=== PATIENT | male | born 1960 | race Caucasian/White ===

== ENCOUNTER 2017-10-31 16:08 | Emergency (ER) | payer MEDICAID, SELFPAY ==
[2017-10-31 16:09] VITALS: BP 164/71; PULSE 62; RESP 23; TEMP 36.6; O2SAT 98; BMI 56.2
[2017-10-31] MEDS: 0.9% Normal Saline 1,000 ML 125 ML IV (16:39)
[2017-10-31] MEDS: Acetaminophen 500 MG Tablet 1000 MG PO (16:42)
[2017-10-31 16:48] LABS: Absolute Lymphocyte Count 2.68 X10^3/ul (0.83-4.51); Absolute Neutrophil Count 7.4 X10^3/uL (2.0-7.7); Basophil# 0.04 X10^3/uL; Basophil% 0.4 % (0-1); Eosinophil# 0.27 X10^3/uL; Eosinophils% 2.4 % (0-5); Hematocrit 41.7 % (40-54); Hemoglobin 14.4 g/dl (13.0-16.5); Lymphocyte # 2.68 X10^3/ul (4.0); Lymphocyte % 24.1 % (19-41); Mean Corp Hgb Conc 34.5 g/gl (32-36); Mean Corpuscular Hgb 30.1 pg (27.0-32.0); Mean Corpuscular Volume 87.1 fL (80-94); Mean Platelet Vol. 10.1 fl (6.2-12.0); Monocyte# 0.68 X10^3/uL; Monocyte% 6.1 % (0-10); Neutrophil # 7.42 X10^3/uL (2.7-7.7); Neutrophil % 66.8 % (47-70); Platelet Count 203 K/mm3 (150-450); RBC Distribution Width CV 13.7 % (11.6-14.6); RBC Distribution Width SD 42.9 fl (35.1-43.9); Red Blood Count 4.79 M/mm3 (4.6-6.2); White Blood Count 11.1 K/mm3 (4.4-11.0)
[2017-10-31 16:51] LABS: POSITIVE COUNT NO; POSITIVE DIFFERENTIAL NO; POSITIVE MORPHOLOGY NO
[2017-10-31 17:13] LABS: AST(SGOT) 15 U/L (15-37); Alanine Aminotransfer ALT/SGPT 26 U/L (16-61); Albumin, Serum 3.6 g/dL (3.2-5.0); Alkaline Phosphatase 92 U/L (45-117); Anion Gap 6 (5-15); BUN 20 mg/dL (7-18); BUN/Creat Ratio 21.2 RATIO (10-20); Bilirubin, Direct 0.15 mg/dL (0.00-0.30); Calcium,Total 9.3 mg/dL (8.5-10.1); Chloride 104 mmol/L (98-107); Creatinine, Serum 0.94 mg/dL (0.70-1.30); EST Glomerular Filtration Rate 88 mL/min (>60); Est Glom Filt Rate - Afr Amer 106 mL/min (>60); Estimated Creatinine Clearance 82.04 ml/min; Globulin 3.9 g/dL (2.2-4.2); Glucose 102 mg/dL (74-106); Lipase 87 U/L (73-393); Potassium 3.7 mmol/L (3.5-5.1); Protein, Total 7.5 g/dL (6.4-8.2); Sodium Level 140 mmol/L (136-145); Thyroid Stim Hormone (TSH) 1.73 uIU/mL (0.358-3.74)
--- NOTE | 2017-10-31 17:19 | ED.VISSUMM ---
- ER Visit Summary Date of Service: 10/31/17 Chief Complaint: Constipation History of Present Illness: The patient is a 56 M who goes to the [facility]. Reports he has had constipation for the past 3 weeks. Typically he has a bowel movement twice a day. States that his last bowel movement was 6 days ago. Patient reports that this began when he started levothyroxine. He denies taking any pain medications. Patient reports that he has been on Colace for approximately 15 days and is still taking this. States that 7 days ago he took magnesium citrate in these next day had a small amount of diarrhea without blood. He reports that he begin MiraLAX 5 days ago and took that for 3 days only. Finally he began taking Metamucil yesterday. He reports he has had no relief. Patient complains of a sharp, aching abdominal pain at 7 out of 10 severity. Is worsened by laying down. Is relieved by remaining still. He has had nausea without vomiting. Physical Examination: Vitals: Stable. Afebrile. General: Well-nourished and well-developed. Head: Normocephalic atraumatic. Neck: Supple, no lymphadenopathy. No JVD. Nontender. Cardiovascular: Regular rate and rhythm. No murmurs. Respiratory: No respiratory distress. Clear to auscultation bilaterally. Abdominal: Soft, mild diffuse tenderness palpation is worst in the epigastric region, nondistended, normal bowel sounds. No guarding, rebound, or peritoneal signs. Rectal: Soft brown stool in the vault. No fecal impaction. Back: Nontender. Extremities: Nontender, 2+ pitting edema of his lower extremities bilaterally. Skin: Normal color, no rash. Neurologic: Alert and oriented ?3. Cranial nerves II through XII are intact. Normal strength and sensation. Psych: Normal affect. Test Results: CBC is more for white count 11.1. Chem-7 more for BUN of 20. LFTs and lipase are normal. TSH is normal. Abdominal series shows nonspecific bowel gas pattern with increased stool. Emergency Department Course and Treatment: Had a prolonged discussion with patient about use of opiate-based medications for pain with constipation and he opted to not have these. He is given Tylenol p.o. He had a fleets enema with moderate results. Treatment Plan: I had a prolonged discussion the patient about treatment of constipation and symptomatic care. He will be discharged magnesium citrate. Instructed follow-up his primary care physician 1 to days not improving. Return to the emergency department for any worsening symptoms. Disposition: To home in improved and stable condition. Impression: 1. Constipation. This note was generated with [employer] dictation software. It may contain incorrect words, spelling, and punctuation that were not noted in review of the chart prior to signing ED Disposition - Plan for ED Patient: Chief Complaint: Constipation Instructions: ED Constipation Prescriptions: Magnesium Citrate [Citrate Of Magnesia] 300 ml PO X1 #1 bottle Referrals: Leanna Last, STOGY ROLLER-C [Primary Care Provider] - 1-2 Days if not improving
--- NOTE | 2017-10-31 17:26 | ED.DCSUM_ITS ---
- ER Visit Summary Date of Service: 10/31/17 Chief Complaint: Constipation History of Present Illness: The patient is a 56 M who goes to the [facility]. Reports he has had constipation for the past 3 weeks. Typically he has a bowel movement twice a day. States that his last bowel movement was 6 days ago. Patient reports that this began when he started levothyroxine. He denies taking any pain medications. Patient reports that he has been on Colace for approximately 15 days and is still taking this. States that 7 days ago he took magnesium citrate in these next day had a small amount of diarrhea without blood. He reports that he begin MiraLAX 5 days ago and took that for 3 days only. Finally he began taking Metamucil yesterday. He reports he has had no relief. Patient complains of a sharp, aching abdominal pain at 7 out of 10 severity. Is worsened by laying down. Is relieved by remaining still. He has had nausea without vomiting. Physical Examination: Vitals: Stable. Afebrile. General: Well-nourished and well-developed. Head: Normocephalic atraumatic. Neck: Supple, no lymphadenopathy. No JVD. Nontender. Cardiovascular: Regular rate and rhythm. No murmurs. Respiratory: No respiratory distress. Clear to auscultation bilaterally. Abdominal: Soft, mild diffuse tenderness palpation is worst in the epigastric region, nondistended, normal bowel sounds. No guarding, rebound, or peritoneal signs. Rectal: Soft brown stool in the vault. No fecal impaction. Back: Nontender. Extremities: Nontender, 2+ pitting edema of his lower extremities bilaterally. Skin: Normal color, no rash. Neurologic: Alert and oriented ?3. Cranial nerves II through XII are intact. Normal strength and sensation. Psych: Normal affect. Test Results: CBC is more for white count 11.1. Chem-7 more for BUN of 20. LFTs and lipase are normal. TSH is normal. Abdominal series shows nonspecific bowel gas pattern with increased stool. Emergency Department Course and Treatment: Had a prolonged discussion with patient about use of opiate-based medications for pain with constipation and he opted to not have these. He is given Tylenol p.o. He had a fleets enema with moderate results. Treatment Plan: I had a prolonged discussion the patient about treatment of constipation and symptomatic care. He will be discharged magnesium citrate. Instructed follow-up his primary care physician 1 to days not improving. Return to the emergency department for any worsening symptoms. Disposition: To home in improved and stable condition. Impression: 1. Constipation. This note was generated with [employer] dictation software. It may contain incorrect words, spelling, and punctuation that were not noted in review of the chart prior to signing ED Disposition - Plan for ED Patient: Chief Complaint: Constipation Instructions: ED Constipation Prescriptions: Magnesium Citrate [Citrate Of Magnesia] 300 ml PO X1 #1 bottle Referrals: Leanna Last, RACE RELATIONS ADVISER-C [Primary Care Provider] - 1-2 Days if not improving
[2017-10-31 18:42] VITALS: BP 156/78; PULSE 78; RESP 16; O2SAT 98
== END 2017-10-31 18:43 | disposition home or self-care (01) ==
LOC: ED 16:35
PROVIDERS: Emergency Provider Emergency Medicine; Family Provider Nurse Practitioner Family; PCP Nurse Practitioner Family
DX: K59.00 Constipation, unspecified (principal); I25.10 Atherosclerotic heart disease of native coronary artery without angina pectoris; E11.9 Type 2 diabetes mellitus without complications; I10 Essential (primary) hypertension; E03.9 Hypothyroidism, unspecified; G47.33 Obstructive sleep apnea (adult) (pediatric); Z79.82 Long term (current) use of aspirin; Z79.4 Long term (current) use of insulin; Z79.899 Other long term (current) drug therapy
CPT/HCPCS: 74022; 80048; 80076; 83690; 84443; 85025; 96360; 96361; 99283; J7030

== ENCOUNTER 2017-11-25 07:25 | Day surgery (SDC) | payer MEDICAID, SELFPAY ==
[2017-11-25 08:24] VITALS: BP 129/54; PULSE 49; RESP 18; TEMP 36.6; O2SAT 93; BMI 55.0
--- NOTE | 2017-11-25 08:45 | COLBX_PTH ---
PATIENT: BRADLEY GREENFIELD LOC: EN U#:[id number] AGE/SX: 56/M ROOM: RE11/25/[address]: Dr. Samm Ortiz MD : [id number] BED: DIS: 11/25/2017 SPEC #: [id number] RECD: 11/25/17 10:07 STATUS: FLORENCE ANIL #: [id number] ZION: 11/25/17 08:[address]: Samm Ortiz DEPT: SURGICAL PATHOLOGY RECD BY: Richard Campos ENTERED: 11/25/17 12:13 SP TYPE: COLON BX OT DR: Leanna Lsat, DOUBLE END TENON OPERATOR-C [facility] Tissues: Cecum, NOS Procedures: Surgery Specimen Level IV HEADER OPERATION: Colonoscopy PRE-OP DIAGNOSIS: Constipation TISSUE SUBMITTED: Cecal polyp MICROSCOPIC DIAGNOSIS Cecal polyp, biopsy: Fragments of tubular adenoma. Fragments of fecal material. SJ:dottie 11/26/17 MICROSCOPIC DESCRIPTION Slides are reviewed. GROSS DESCRIPTION Received in fixative is one container labeled with the patient's name and designated cecal polyp. The specimen consists of a piece of jacinto-pink polyp measuring 0.5 x 0.5 x 0.3 cm. Also present in the container are multiple fragments of fecal material mixed with jacinto soft tissue measuring in aggregate 2 x 0.3 x 0.1 cm. The entire specimen is submitted in one cassette. / SJ:dottie 11/25/17 TC:5 CPT: 72520
[2017-11-25 08:51] LABS: Bedside Glucose 139 mg/dL (70-110)
[2017-11-25 09:10] VITALS: BP 128/74; BP 129/54; PULSE 56; RESP 16; TEMP 36.2; O2SAT 93
[2017-11-25 09:15] VITALS: BP 129/54; BP 130/74; PULSE 55; RESP 16; O2SAT 93
--- NOTE | 2017-11-25 09:15 | PCM.OPRPT ---
Problem List (1) Constipation Status: Acute Qualifiers: Constipation type: unspecified constipation type Qualified Code(s): K59.00 - Constipation, unspecified Report of Operation Date of Procedure: 11/25/17 Pre-Operative Diagnosis: Constipation Post-Operative Diagnosis: Cecal polyp Surgery/Procedure Performed:: Colonoscopy with snare polypectomy Specimen's removed: Cecal polyp Description of Procedure: The major risks and benefits associated with the procedure were explained to the patient in detail. The patient verbalized understanding and agreement with the same. The patient was brought to the endoscopy suite. After adequate sedation was achieved, the patient was placed in the left lateral decubitus position and a digital rectal exam was performed. This examination was within normal limits. A well-lubricated colonoscope was then inserted into the rectum and advanced under direct visualization to the level of the cecum. The bowel prep was good. The cecum was identified by both visual and anatomic landmarks. A photograph was taken of the end of the cecum. The patient did have a cecal polyp which was removed with cautery snare. Hemostasis was good. The scope was then fully withdrawn while examining the color, texture, anatomy and integrity of the mucosa from the cecum to the anal canal. The findings were consistent with normal colonic mucosa. Over 6 minutes were taken to examine the colonic mucosa. Upon reaching the rectum the scope was retroflexed to examine the distal rectal vault. The scope was then straightened and was completely retrieved upon exiting the anal canal and the procedure was terminated. The patient was then transferred to the recovery room in stable condition. There was no mechanical obstruction of the patient's colon. The colon was widely patent from the cecum to the anus. Recommendations for follow up: Depending on pathology.
[2017-11-25 09:20] VITALS: BP 129/54; BP 141/79; PULSE 57; RESP 16; O2SAT 93
[2017-11-25 09:25] VITALS: BP 129/54; BP 139/77; PULSE 56; RESP 16; TEMP 36.4; O2SAT 95
[2017-11-25 10:12] VITALS: BP 129/54
== END 2017-11-25 10:19 | disposition home or self-care (01) ==
LOC: EN 07:26 → AC 07:27
PROVIDERS: Visit Provider Surgery
PROC: 0DJD8ZZ Inspection of Lower Intestinal Tract, Via Natural or Artificial Opening Endoscopic (ICD-10-PCS; CPT 45378; principal; 2017-11-25 08:40)
DX: D12.0 Benign neoplasm of cecum (principal); K44.9 Diaphragmatic hernia without obstruction or gangrene; I25.10 Atherosclerotic heart disease of native coronary artery without angina pectoris; E11.9 Type 2 diabetes mellitus without complications; I10 Essential (primary) hypertension; E78.5 Hyperlipidemia, unspecified; J45.909 Unspecified asthma, uncomplicated; G47.30 Sleep apnea, unspecified; K21.9 Gastro-esophageal reflux disease without esophagitis; E66.9 Obesity, unspecified; F32.9 Major depressive disorder, single episode, unspecified; F41.9 Anxiety disorder, unspecified; Z79.82 Long term (current) use of aspirin; Z79.4 Long term (current) use of insulin; Z79.899 Other long term (current) drug therapy
CPT/HCPCS: 45385; 82962; 88305; J7120

== ENCOUNTER → 2017-12-12 12:45 | Outpatient (CLI) | payer MEDICAID, SELFPAY ==
--- NOTE | 2017-12-12 12:48 | STEWCON_ITS ---
Reason For Study: Pre-Op, CAD Stress Results Protocol: Dobutamine Stress Echo Maximum Predicted HR: 164 bpm Target HR: 139 bpm% Maximum Pre dicted HR: 83 % DurationHeart Rate Stage (mm:ss) (bpm) BPComm ent Baseline 66 165/97 No Chest Pain; Diluted Definity 1 ML Given DSE 10 MCG 4:43 95 144/82No Chest Pain DSE 20 MCG 3:00 96 148/75No Chest Pain DSE 30 MCG 3:04 11 7 171/100No Chest Pain; Atropine 0.25 MG IVP DSE 40 MCG 3:49 13 6 167/63No Chest Pain; Atropine 0.75 MG IVP Recovery 90 147/63 No Chest Pain Stress Duration: 14:36 mm:ss Maximum Stress HR: 136 bpmME TS: 1 Baseline Echocardiogram Findings The estimated ejection fraction is 65 %. Stress Echo Wall motion Data Resting WMIntermediate WMStress WM Resting Wall Motion Wall Motion Stress No regional wall motion No regional wall motion abnormalities noted. abnormalities noted. EKG Data The baseline ECG displays normal sinus rhythm. The patient was titrated from 10 mcg to a maximum of 40 mcg of dobutamine during the stress. The maximum heart rate attained was 137 beats per minute. This was 83% of maximum predicted heart rate. During dobutamine infusion, there were no ST or T wave changes noted to suggest ischemia. No clinical angina was noted. Interpretation Summary The study was technically difficult. Contrast injection was performed. The estimated ejection fraction is 65 %. Normal, adequate, dobutamine echocardiogram. Negative for ischemia by EKG and echocardiographic criteria. No anginal symptoms noted. Rare PVCs, PACs and one ventricular triplet during infusion which is a nonspecific finding given dobutamine. Final LVEF is 75%. Test terminated due to the attainment of target heart rate. No complications. Decreased sensitivity due to poor echo windows requiring Definity agent. Ordering Physician: Silvio Batista Referring Physician: Silvio Batista MD Performed By: Jasvir Workman RCS
== END ==
PROVIDERS: Visit Provider Internal Medicine Cardiovascular Disease
DX: Z01.810 Encounter for preprocedural cardiovascular examination (principal); I25.10 Atherosclerotic heart disease of native coronary artery without angina pectoris; Z95.5 Presence of coronary angioplasty implant and graft
CPT/HCPCS: 93017; 93350; J7030; Q9957; A4216; C8928

== ENCOUNTER 2018-02-16 14:04 | Emergency (ER) | payer MEDICAID, SELFPAY ==
[2018-02-09 13:10] VITALS: BMI 54.1
[2018-02-16 14:05] VITALS: BP 167/90; PULSE 72; RESP 15; TEMP 36.6; O2SAT 95
--- NOTE | 2018-02-16 14:28 | EKG12_ITS ---
Test Reason : ILLNESS Blood Pressure : / mmHG Vent. Rate : 072 BPM Atrial Rate : 072 BPM P-R Int : 180 ms QRS Dur : 106 ms QT Int : 398 ms P-R-T Axes : 047 072 002 degrees QTc Int : 435 ms Normal sinus rhythm Normal ECG Confirmed by CHELSEA BEACH, ANDREA ([id number]), rewrite editor KELLY MATTHEW ([id number]) on 02/19/2018 1:34:17 PM Referred By: KIMO Confirmed By:ANDREA TRAN MD
--- NOTE | 2018-02-16 14:29 | CT_ITS ---
STUDY: CT ABDOMEN AND PELVIS WITHOUT CONTRAST REASON FOR EXAM: Male, 57 years old. Vomiting. Gastric bypass RADIATION DOSAGE (If Supplied By Facility): CTDIvol = ( 17.58 ) mGy, DLP = ( 937.29 ) mGycm TECHNIQUE: Transaxial images were obtained from the dome of the diaphragm to the symphysis pubis with oral contrast, and without intravenous contrast. Sagittal and coronal images were reconstructed. Individualized dose optimization techniques were used for this CT. COMPARISON: None. FINDINGS: There is lower lung atelectasis.. The visualized portions of the heart are within normal limits. There is hepatomegaly with diffuse hepatic enlargement. Gallbladder is distended with mild pericholecystic fluid or edema. Normal spleen. Normal pancreas. Normal bilateral adrenal glands. Normal right kidney. Parapelvic cyst versus mild hydronephrosis of the left kidney. Postoperative changes of the stomach and small intestine. No dilated loops of bowel. Normal colon. The appendix is visualized and appears normal. There is atherosclerotic calcification of the abdominal aorta, without a demonstrated aneurysm. Normal inferior vena cava. Normal retroperitoneum. Normal urinary bladder. No free fluid in the abdomen or pelvis. Normal abdominal wall. Normal osseous structures. CT/Abdomen/Pel W ORAL Cont Only IMPRESSION: Gallbladder is distended with pericholecystic fluid or edema. Consider ultrasound to evaluate for potential stones. Postoperative changes of the stomach and small bowel. No obstruction. Electronically Signed: Chico Santana MD at 17:46 EST , Service support ,
--- NOTE | 2018-02-16 14:34 | ED.VISSUMM ---
- ER Visit Summary Date of Service: 02/16/18 Chief Complaint: [] Abdominal pain and vomiting recent gastric bypass surgery at [facility] History of Present Illness: The patient is a 57 M [] upper abdominal pain vomiting for days, indicates she is two-week status post Jolanta-en-Y gastric bypass surgery done by Dr. Jasmine at [facility]. Since discharge been having abdominal pain initially was the left side of the abdomen now it is in the anterior abdominal region to the point he cannot take meds minimal liquids and he is constantly spitting up small amounts of fluid or vomiting. He spoke with the office today and was asked to come to the hospital for evaluation, and for some type of special test, indicates he has a prior history for cardiac stent his cardiovascular status has been stable fact he believes he had a cardiac stress test preop workup for the bypass surgery, he is having loose bowel movements and making normal amounts of urine Physical Examination: [] 167/70 afebrile General, no distress resting comfortably HEENT is generally unremarkable The neck is supple no adenopathy Cardiovascular, regular rate and rhythm Lungs, clear bilateral Abdomen, soft multiple port sites to the anterior abdominal area, there is no signs of infection he has a pain to the mid epigastric area that extends to the left side of the abdomen there is no rebound guarding organomegaly, he has a large pannus he is a large gentleman, the majority of his pain is in the mid abdominal region Extremities, no clubbing cyanosis or edema Neurologic, awake alert answering questions appropriately moving all 4 extremities Test Results: [] Emergency Department Course and Treatment: [] Given all of the above we paged Dr. Jasmine at [facility] spoke with him via the OR staff he indicated the patient should receive 2 L of IV fluid if his workup was unremarkable it was safe to discharge him home to follow-up with the office tomorrow, he could not recall any special tests the patient required from the emergency department he will receive IV fluids screening labs CT of the abdomen with some oral contrast The patient's labs are all generally unremarkable, he took a small amount of oral contrast at this time the oral contrast abdominal pelvic CT is pending if this result is unremarkable the patient will be discharged home per instructions of Dr. Jasmine, I also explained to the patient if he does not feels if he is improved or if his condition changes he should feel comfortable presenting directly to [facility] to be evaluated by Dr. Jasmine surgical service there, he and the feel comfortable with discharge home and will follow-up as above Treatment Plan: [] Disposition: [] Pending CT abdomen but this will be checked by the afternoon physicians and the plan will be as above Impression: [] Abdominal pain, status post Jolanta-en-Y gastric bypass surgery This note was generated with [employer] dictation software. It may contain incorrect words, spelling, and punctuation that were not noted in review of the chart prior to signing ED Disposition - Plan for ED Patient: Chief Complaint: Nausea/Vomiting Referrals: Leanna Last, WAFER POLISHING WORKER-C [Primary Care Provider] -
--- NOTE | 2018-02-16 14:36 | NURSING ---
CALLED DR DEAN FOR ER DOC
--- NOTE | 2018-02-16 14:37 | ED.DCSUM_ITS ---
- ER Visit Summary Date of Service: 02/16/18 Chief Complaint: [] Abdominal pain and vomiting recent gastric bypass surgery at [facility] History of Present Illness: The patient is a 57 M [] upper abdominal pain vomiting for days, indicates she is two-week status post Jolanta-en-Y gastric bypass surgery done by Dr. Jasmine at [facility]. Since discharge been having abdominal pain initially was the left side of the abdomen now it is in the anterior abdominal region to the point he cannot take meds minimal liquids and he is constantly spitting up small amounts of fluid or vomiting. He spoke with the office today and was asked to come to the hospital for evaluation, and for some type of special test, indicates he has a prior history for cardiac stent his cardiovascular status has been stable fact he believes he had a cardiac stress test preop workup for the bypass surgery, he is having loose bowel movements and making normal amounts of urine Physical Examination: [] 167/70 afebrile General, no distress resting comfortably HEENT is generally unremarkable The neck is supple no adenopathy Cardiovascular, regular rate and rhythm Lungs, clear bilateral Abdomen, soft multiple port sites to the anterior abdominal area, there is no signs of infection he has a pain to the mid epigastric area that extends to the left side of the abdomen there is no rebound guarding organomegaly, he has a large pannus he is a large gentleman, the majority of his pain is in the mid abdominal region Extremities, no clubbing cyanosis or edema Neurologic, awake alert answering questions appropriately moving all 4 extremities Test Results: [] Emergency Department Course and Treatment: [] Given all of the above we paged Dr. Jasmine at [facility] spoke with him via the OR staff he indicated the patient should receive 2 L of IV fluid if his workup was unremarkable it was safe to discharge him home to follow-up with the office tomorrow, he could not recall any special tests the patient required from the emergency department he will receive IV fluids screening labs CT of the abdomen with some oral contrast The patient's labs are all generally unremarkable, he took a small amount of oral contrast at this time the oral contrast abdominal pelvic CT is pending if this result is unremarkable the patient will be discharged home per instructions of Dr. Jasmine, I also explained to the patient if he does not feels if he is improved or if his condition changes he should feel comfortable presenting directly to [facility] to be evaluated by Dr. Jasmine surgical service there, he and the feel comfortable with discharge home and will follow-up as above Treatment Plan: [] Disposition: [] Pending CT abdomen but this will be checked by the afternoon physicians and the plan will be as above Impression: [] Abdominal pain, status post Jolanta-en-Y gastric bypass surgery This note was generated with [employer] dictation software. It may contain incorrect words, spelling, and punctuation that were not noted in review of the chart prior to signing ED Disposition - Plan for ED Patient: Chief Complaint: Nausea/Vomiting Referrals: Leanna Last, FAUCET POLISHER-C [Primary Care Provider] -
[2018-02-16 14:51] LABS: Absolute Lymphocyte Count 1.23 X10^3/ul (0.83-4.51); Absolute Neutrophil Count 7.6 X10^3/uL (2.0-7.7); Basophil# 0.02 X10^3/uL; Basophil% 0.2 % (0-1); Eosinophil# 0.09 X10^3/uL; Eosinophils% 0.9 % (0-5); Hematocrit 42.9 % (40-54); Hemoglobin 14.2 g/dl (13.0-16.5); Lymphocyte # 1.23 X10^3/ul (4.0); Lymphocyte % 12.5 % (19-41); Mean Corp Hgb Conc 33.1 g/gl (32-36); Mean Corpuscular Hgb 28.9 pg (27.0-32.0); Mean Corpuscular Volume 87.4 fL (80-94); Mean Platelet Vol. 10.9 fl (6.2-12.0); Monocyte# 0.86 X10^3/uL; Monocyte% 8.8 % (0-10); Neutrophil # 7.59 X10^3/uL (2.7-7.7); Neutrophil % 77.4 % (47-70); Platelet Count 249 K/mm3 (150-450); RBC Distribution Width CV 14.9 % (11.6-14.6); RBC Distribution Width SD 47.6 fl (35.1-43.9); Red Blood Count 4.91 M/mm3 (4.6-6.2); White Blood Count 9.8 K/mm3 (4.4-11.0)
[2018-02-16] MEDS: morphine 8 MG/ML Syringe IV (14:51)
[2018-02-16] MEDS: Ondansetron 4 MG/2 ML Vial IV (14:51)
[2018-02-16] MEDS: 0.9% Normal Saline 1,000 ML 1000 ML IV (14:52)
[2018-02-16] MEDS: 0.9% Normal Saline 1,000 ML 999 ML IV ×2 (14:53→16:41)
[2018-02-16 14:57] LABS: POSITIVE COUNT NO; POSITIVE DIFFERENTIAL NO; POSITIVE MORPHOLOGY NO
[2018-02-16 15:05] LABS: AST(SGOT) 10 U/L (15-37); Alanine Aminotransfer ALT/SGPT 16 U/L (16-61); Albumin, Serum 3.7 g/dL (3.2-5.0); Alkaline Phosphatase 84 U/L (45-117); Anion Gap 14 (5-15); BUN 21 mg/dL (7-18); BUN/Creat Ratio 12.9 RATIO (10-20); Calcium,Total 9.1 mg/dL (8.5-10.1); Chloride 101 mmol/L (98-107); Creatinine, Serum 1.63 mg/dL (0.70-1.30); EST Glomerular Filtration Rate 47 mL/min (>60); Est Glom Filt Rate - Afr Amer 56 mL/min (>60); Estimated Creatinine Clearance 102.01 ml/min; Globulin 3.9 g/dL (2.2-4.2); Glucose 161 mg/dL (74-106); Lipase 84 U/L (73-393); Potassium 3.9 mmol/L (3.5-5.1); Protein, Total 7.6 g/dL (6.4-8.2); Sodium Level 142 mmol/L (136-145)
--- NOTE | 2018-02-16 16:18 | DCINST.ED_ITS ---
ED Disposition - Plan for ED Patient: Chief Complaint: Nausea/Vomiting Instructions: ED Nausea Vomiting, Abdominal Pain, ED Abdominal Pain Unkn Cause Prescriptions: Ondansetron [Zofran Odt] 4 mg PO Q8H PRN PRN #10 tab PRN Reason: Nausea Referrals: Leanna Last, PLASTER PATTERN CASTER-C [Primary Care Provider] -
[2018-02-16 17:09] VITALS: BP 200/81; PULSE 79; RESP 16; O2SAT 92
[2018-02-16] MEDS: Morphine 4 MG/ML Syringe IV (17:13)
[2018-02-16 18:29] VITALS: BP 164/68; PULSE 97; RESP 16; O2SAT 91
== END 2018-02-16 18:31 | disposition home or self-care (01) ==
LOC: ED 14:55
PROVIDERS: Emergency Provider Emergency Medicine; Family Provider Nurse Practitioner Family; PCP Nurse Practitioner Family
DX: R11.2 Nausea with vomiting, unspecified (principal); I25.10 Atherosclerotic heart disease of native coronary artery without angina pectoris; Z79.82 Long term (current) use of aspirin; Z79.899 Other long term (current) drug therapy; Z98.84 Bariatric surgery status; Z95.5 Presence of coronary angioplasty implant and graft
CPT/HCPCS: 74176; 80048; 80076; 83690; 84484; 85025; 93005; 96361; 96374; 96375; 96376; 99283; J7030; A4216; J2405

== ENCOUNTER 2018-02-21 20:06 | Emergency (ER) | payer MEDICAID, SELFPAY ==
[2018-02-21 20:07] VITALS: BP 187/84; PULSE 79; RESP 20; TEMP 37.3; O2SAT 95; BMI 45.4
--- NOTE | 2018-02-21 20:22 | CT_ITS ---
STUDY: CT ABDOMEN AND PELVIS WITH CONTRAST REASON FOR EXAM: Male, 57 years old. Increasing leukocytosis with right abdominal pain history of recent gastric surgery. RADIATION DOSAGE (If Supplied By Facility): CTDIvol = ( 25.39 ) mGy, DLP = ( 1358.88 ) mGycm TECHNIQUE: Transaxial images were obtained from the dome of the diaphragm to the symphysis pubis without oral contrast. 100 ml of Isovue 300 contrast was administered. Sagittal and coronal images were reconstructed. Individualized dose optimization techniques were used for this CT. COMPARISON: None. FINDINGS: The visualized lung bases are unremarkable. The visualized portions of the heart are within normal limits. Normal liver. Gallbladder wall thickening with pericholecystic induration and mild pericholecystic fluid (in addition to trace perihepatic fluid) is worse since the prior study. Normal spleen. Normal pancreas. Normal bilateral adrenal glands. Normal right kidney. Cystic prominence of the bilateral central kidneys are felt to represent parapelvic renal cysts rather than hydronephrosis, although the latter cannot be excluded. Similar operative changes of the stomach as compared to the prior study. Normal small intestine. Normal colon. There is non-visualization of the appendix. There is diffuse atherosclerotic calcification of the abdominal aorta, without a demonstrated aneurysm. Normal inferior vena cava. Normal retroperitoneum. Normal urinary bladder. Normal abdominal wall. Normal osseous structures. CT/Abdomen/Pelvis WITH Contrast IMPRESSION: 1. Increasing gallbladder wall thickening, pericholecystic induration/fluid and perihepatic fluid worrisome for acute cholecystitis. 2. Additional chronic changes, as above. Electronically Signed: Alvarez Johnson MD at 23:44 EST , Service support ,
[2018-02-21 20:40] LABS: Absolute Lymphocyte Count 0.85 X10^3/ul (0.83-4.51); Absolute Neutrophil Count 16.4 X10^3/uL (2.0-7.7); Basophil# 0.01 X10^3/uL; Basophil% 0.1 % (0-1); Eosinophil# 0.01 X10^3/uL; Eosinophils% 0.1 % (0-5); Hematocrit 39.2 % (40-54); Hemoglobin 13.3 g/dl (13.0-16.5); Lymphocyte # 0.85 X10^3/ul (4.0); Lymphocyte % 4.6 % (19-41); Mean Corp Hgb Conc 33.9 g/gl (32-36); Mean Corpuscular Hgb 28.9 pg (27.0-32.0); Mean Platelet Vol. 10.3 fl (6.2-12.0); Monocyte# 1.04 X10^3/uL; Monocyte% 5.7 % (0-10); Neutrophil # 16.38 X10^3/uL (2.7-7.7); Neutrophil % 89.2 % (47-70); POSITIVE COUNT NO; POSITIVE DIFFERENTIAL NO; POSITIVE MORPHOLOGY NO; Platelet Count 178 K/mm3 (150-450); RBC Distribution Width CV 14.8 % (11.6-14.6); RBC Distribution Width SD 46.1 fl (35.1-43.9); Red Blood Count 4.61 M/mm3 (4.6-6.2); White Blood Count 18.3 K/mm3 (4.4-11.0)
[2018-02-21] MEDS: morphine 8 MG/ML Syringe IV (20:41)
[2018-02-21] MEDS: Ondansetron 4 MG/2 ML Vial IV ×2 (20:41→22:25)
[2018-02-21] MEDS: 0.9% Normal Saline 1,000 ML 1000 ML IV (20:41)
[2018-02-21 20:56] LABS: ALB/GLOB Ratio 0.6 RATIO (0.9-2.4); AST(SGOT) 18 U/L (15-37); Alanine Aminotransfer ALT/SGPT 21 U/L (16-61); Albumin, Serum 2.6 g/dL (3.2-5.0); Alkaline Phosphatase 123 U/L (45-117); Anion Gap 11 (5-15); BUN 20 mg/dL (7-18); Calcium,Total 8.8 mg/dL (8.5-10.1); Chloride 101 mmol/L (98-107); Creatinine, Serum 1.66 mg/dL (0.70-1.30); EST Glomerular Filtration Rate 46 mL/min (>60); Est Glom Filt Rate - Afr Amer 55 mL/min (>60); Globulin 4.5 g/dL (2.2-4.2); Glucose 256 mg/dL (74-106); Lipase 55 U/L (73-393); Protein, Total 7.1 g/dL (6.4-8.2); Sodium Level 139 mmol/L (136-145)
[2018-02-21 22:24] VITALS: BP 114/55; PULSE 86; RESP 22; O2SAT 94
--- NOTE | 2018-02-21 23:41 | ED.VISSUMM ---
- ER Visit Summary Date of Service: 02/21/18 Chief Complaint: Abdominal pain History of Present Illness: The patient is a 57 M presenting for evaluation secondary to abdominal pain. Patient is status post Jolanta-en-Y gastric bypass on January 26 at [facility]. Patient states that he has been having issues with intermittent abdominal pain, and actually was recently admitted to [facility] for a workup of this. He had negative imaging, and had a negative upper endoscopy and was discharged home. Patient states that he now had an onset of worsening pain in a different area. He localizes it in his right upper quadrant. This been associated with nausea and vomiting. He denies any presence of fevers or urinary signs or symptoms. Review of systems otherwise negative except for some chest discomfort and dyspnea. Physical Examination: Vital signs notable blood pressure 187/84. Morbidly obese male visibly in pain. No conjunctival pallor or scleral icterus. Moist mucous membranes. Neck was supple. Heart regular rate and rhythm, no murmurs. Lungs clear. Abdomen was tender in the right upper quadrant with guarding and a positive Rocha sign. Patient's incisions all appear to be clean dry and intact. Test Results: CBC demonstrates leukocytosis of 18.3, alkaline phosphatase mildly elevated at 123. Lipase normal. CT abdomen and pelvis demonstrates evidence of pericholecystic fluid, gallbladder wall thickening, and evidence of cholecystitis. Emergency Department Course and Treatment: Patient presented for evaluation secondary to right upper quadrant abdominal pain. He was found to have a profound leukocytosis and CT ended up showing evidence that the patient light has likely cholecystitis. Patient was given morphine Zofran and fluids. He was given Zosyn. I believe that the patient requires transfer back to [facility] as he is recently postop from a laparoscopic Jolanta-en-Y. I discussed this with the [facility] transfer line. Disposition: Transfer Impression: 1. Acute cholecystitis 2. Recent laparoscopic Jolanta-en-Y This note was generated with [employer] dictation software. It may contain incorrect words, spelling, and punctuation that were not noted in review of the chart prior to signing ED Disposition - Plan for ED Patient: Chief Complaint: Abd Pain Referrals: Leanna Last, [employer] [Primary Care Provider] -
[2018-02-21] MEDS: Morphine 4 MG/ML Syringe IV (23:59)
[2018-02-21] MEDS: Metoclopramide 10 MG/2 ML Vial IV (23:59)
[2018-02-22 00:03] VITALS: BP 160/73; PULSE 85; RESP 16; O2SAT 96
[2018-02-22] MEDS: Piperacil/Tazobactam 3.375 GM/50 ML ML IV (00:14)
[2018-02-22 01:44] VITALS: BP 129/61; PULSE 88; RESP 16; O2SAT 94
== END 2018-02-22 02:17 | disposition short-term general hospital (02) ==
LOC: ED 20:25
PROVIDERS: Emergency Provider Emergency Medicine; Family Provider Nurse Practitioner Family; PCP Nurse Practitioner Family
DX: K81.0 Acute cholecystitis (principal); E66.01 Morbid (severe) obesity due to excess calories; Z98.84 Bariatric surgery status; Z79.82 Long term (current) use of aspirin; Z79.899 Other long term (current) drug therapy
CPT/HCPCS: 74177; 80053; 83690; 85025; 96361; 96365; 96366; 96375; 96376; 99285; J7050; Q9967; A4216; J2405

== ENCOUNTER → 2018-03-06 16:00 | Outpatient (CLI) | payer MEDICAID, SELFPAY ==
[2018-03-06 15:15] VITALS: BMI 49.2
--- NOTE | 2018-03-06 16:02 | RAD_ITS ---
STUDY: X-RAY CHEST REASON FOR EXAM: Male, 57 years old. Shortness of breath. TECHNIQUE: PA and lateral views of the chest. COMPARISON: January 27, 2017 FINDINGS: There is no new focal consolidation. Normal size heart. Normal mediastinum and sb. Normal visualized pulmonary arteries. Normal visualized aortic arch and descending thoracic aorta. Normal visualized thoracic spine. Normal visualized ribs, clavicles, and shoulders. There are surgical clips projecting over the left lower neck. There is no demonstrated abnormality of the visualized soft tissue structures of the upper abdomen. RAD/Chest PA and Lateral IMPRESSION: No acute cardiopulmonary process. Electronically Signed: Natali Rodriguez MD at 19:58 EST Tel , Service support ,
== END ==
PROVIDERS: Family Provider Nurse Practitioner Family; PCP Nurse Practitioner Family; Referring Provider Nurse Practitioner Family; Visit Provider Nurse Practitioner Family
DX: R06.09 Other forms of dyspnea (principal)
CPT/HCPCS: 71046

== ENCOUNTER → 2018-03-13 08:03 | Outpatient (CLI) | payer MEDICAID, SELFPAY ==
[2018-03-11 12:49] VITALS: BMI 48.1
[2018-03-13 09:50] LABS: Hemoglobin A1c 7.5 % (4.2-6.3)
[2018-03-13 10:04] LABS: AST(SGOT) 17 U/L (15-37); Alanine Aminotransfer ALT/SGPT 24 U/L (16-61); Alkaline Phosphatase 82 U/L (45-117); Bilirubin, Direct 0.35 mg/dL (0.00-0.30); Cholesterol 70 mg/dL (200); Globulin 3.5 g/dL (2.2-4.2); High Density Lipoprotein 29 mg/dL; Protein, Total 6.5 g/dL (6.4-8.2); Triglycerides 202 mg/dL; Very Low Density Lipoprotein 40 mg/dL (5-40)
[2018-03-13 10:10] LABS: BUN 11 mg/dL (7-18); Glucose 157 mg/dL (74-106)
[2018-03-13 10:11] LABS: Anion Gap 10 (5-15); BUN/Creat Ratio 12.2 RATIO (10-20); Calcium,Total 8.8 mg/dL (8.5-10.1); Chloride 102 mmol/L (98-107); EST Glomerular Filtration Rate 92 mL/min (>60); Est Glom Filt Rate - Afr Amer 112 mL/min (>60); Potassium 3.8 mmol/L (3.5-5.1); Sodium Level 143 mmol/L (136-145)
[2018-03-13 10:22] LABS: T4 Free Direct 1.49 ng/dL (0.76-1.46); Thyroid Stim Hormone (TSH) 0.91 uIU/mL (0.358-3.74)
[2018-03-13 11:18] LABS: BNP,B-Type NATRIURETIC PEPTIDE 11.6 pg/mL (0-100)
== END ==
PROVIDERS: Internal Medicine Cardiovascular Disease; Physician Assistant Medical; Referring Provider Nurse Practitioner; Visit Provider Nurse Practitioner
DX: E03.9 Hypothyroidism, unspecified (principal); E11.9 Type 2 diabetes mellitus without complications
CPT/HCPCS: 36415; 80048; 80061; 80076; 83036; 83880; 84439; 84443

== ENCOUNTER → 2018-03-18 10:11 | Outpatient (CLI) | payer MEDICAID, SELFPAY ==
[2018-03-13 09:03] VITALS: BMI 48.1
[2018-03-18 11:33] LABS: Microalbumin,Random Urine 11.2 mg/L (NO RANGE EST.); Microalbumin:Creatinine Ratio 7.8 mg/g CRE (<30 mg/g CRE)
== END ==
PROVIDERS: Referring Provider Nurse Practitioner; Visit Provider Nurse Practitioner
DX: E03.9 Hypothyroidism, unspecified (principal); E11.9 Type 2 diabetes mellitus without complications; E66.9 Obesity, unspecified
CPT/HCPCS: 82043; 82570

== ENCOUNTER → 2018-04-02 12:41 | Outpatient (CLI) | payer MEDICAID, SELFPAY ==
[2018-03-13 09:03] VITALS: BMI 48.1
--- NOTE | 2018-04-02 12:43 | ECHOCS_ITS ---
Reason For Study: DYSPNEA/SOB Procedure This was a 2D Doppler, Color Flow transthoracic echocardiogram. The study was technically difficult. Contrast injection was performed. Exam performed in department. Left Ventricle Normal size and thickness. The estimated ejection fraction is 65 %. Stage 1 diastolic dysfunction. No regional wall motion abnormalities noted. Right Ventricle Normal size and thickness. Normal systolic function. Atria Normal left atrium. Normal right atrium. Normal atrial septum. Mitral Valve The mitral valve is structurally normal. No prolapse or stenosis seen. Tricuspid Valve Normal tricuspid valve. Unable to estimate RV systolic pressure due to inadequate jet, pulmonary artery pressure probably normal. Aortic Valve Normal aortic valve. Trisinus/trileaflet aortic valve. Pulmonic Valve The pulmonic valve is not well visualized. Great Vessels Normal aortic root. Normal arch. Normal inferior vena cava. Inferior vena cava collapse with sniff. Pericardium/Pleural No pericardial effusion. Medication 22 gauge I.V. with prn adaptor inserted into right arm. Diluted definity 4.0ml given slow IV push to enhance endocardial definition. MMode/2D Measurements & Calculations LVIDd: 5.0 cm IVSd: 1.3 cm Ao root diam: 3.2 cm LVIDs: 3.7 cm LVPWd: 1.2 cm RVDd: 3.2 cm FS: 26.1 % LAV(MOD-bp): 52.6 ml LA A4 area: 18.6 cm2 LA dimension(2D): 4.4 cm LAV(MOD-bp) Indexed: 21.4 ml/m2 LAV(MOD-sp2): 52.1 ml LAV(MOD-sp4): 52.1 ml Doppler Measurements & Calculations MV E max venkat: 82.3 cm/sec Lat Peak E' Venkat: 7.9 cm/sec Med Peak E' Venkat: 9.3 cm/sec MV A max venkat: 95.9 cm/sec E/E' lat: 10.4 E/E' med: 8.9 MV E/A: 0.86 Ao V2 max: 114.4 cm/sec LV V1 max: 93.0 cm/sec PA V2 max: 101.6 cm/sec Ao max P.2 mmHg LV V1 max P.5 mmHg Interpretation Summary The estimated ejection fraction is 65 %. Stage 1 diastolic dysfunction. Unable to estimate RV systolic pressure due to inadequate jet, pulmonary artery pressure probably normal. Compared to echo report dated 07/30/2016, no appreciable changes noted. The study was technically difficult. Contrast injection was performed. Ordering Physician: Tashi Santo Referring Physician: Frieda Ramon [facility] Performed By: Andie Paz RDCS, RVT
--- OUTSIDE RECORDS SUMMARY | 2018-06-07 05:16 | XMS RPT_ITS ---
:1960 Author Organization OHIP Support Name Relationship Address Phone MARIA KEYSORA Unavailable [address] + [place] [address] UE Unavailable Unavailable Unavailable Keys, Isabel Unavailable Unavailable + Margie, Sandip Unavailable Unavailable + KEYS, BRIAN Unavailable [address] + [place] [address] UE Unavailable Unavailable Unavailable KEYS, BRIAN Unavailable [address] + [place] [address] UE Unavailable Unavailable Unavailable KEYS, BRIAN Unavailable [address] + [place] [address] UE Unavailable Unavailable Unavailable KEYS, BRIAN Unavailable [address] + [place] [address] UE Unavailable Unavailable Unavailable KEYS, BRIAN Unavailable [address] + [place] [address] UE Unavailable Unavailable Unavailable KEYS, BRIAN Unavailable [address] + [place] [address] UE Unavailable Unavailable Unavailable UE Unavailable Unavailable Unavailable Keys, Isabel Unavailable Unavailable + Margie, Sandip Unavailable Unavailable + Keys, Isabel Unavailable Unavailable + Margie, Sandip Unavailable Unavailable + Keys, Isabel Unavailable Unavailable + Margie, Sandip Unavailable Unavailable + Keys, Isabel Unavailable Unavailable + Margie, Sandip Unavailable Unavailable + Keys, Isabel Unavailable Unavailable + Margie, Sandip Unavailable Unavailable + Keys, Isabel Unavailable Unavailable + Margie, Sandip Unavailable Unavailable + KEYS, BRIAN Unavailable [address] + [place] [address] UE Unavailable Unavailable Unavailable MARGIE, SANDIP Unavailable [address] + [place] [address] Keys, Isabel Unavailable Unavailable + Margie, Sandip Unavailable Unavailable + Keys, Isabel Unavailable Unavailable + Margie, Sandip Unavailable Unavailable + KEYS, BRIAN Unavailable [address] + [place] [address] UE Unavailable Unavailable Unavailable MARGIE, SANDIP Unavailable [address] + [place] [address] KEYS, BRIAN Unavailable [address] + [place] [address] UE Unavailable Unavailable Unavailable MARGIE, SANDIP Unavailable [address] + [place] [address] Keys, Isabel Unavailable Unavailable + Margie, Sandip Unavailable Unavailable + KEYS, BRIAN Unavailable [address] + [place] [address] UE Unavailable Unavailable Unavailable MARGIE, SANDIP Unavailable [address] + [place] [address] Keys, Isabel Unavailable Unavailable + Margie, Sandip Unavailable Unavailable + Keys, Isabel Unavailable Unavailable + Margie, Sandip Unavailable Unavailable + Keys, Isabel Unavailable Unavailable + Margie, Sandip Unavailable Unavailable + Keys, Isabel Unavailable Unavailable + Margie, Sandip Unavailable Unavailable + Keys, Siabel Unavailable Unavailable + Margie, Sandip Unavailable Unavailable + Keys, Isabel Unavailable Unavailable + Margie, Sandip Unavailable Unavailable + Keys, Isabel Unavailable Unavailable + Margie, Sandip Unavailable Unavailable + Keys, Isabel Unavailable Unavailable + Margie, Sandip Unavailable Unavailable + Keys, Isabel Unavailable Unavailable + Margie, Sandip Unavailable Unavailable + Keys, Isabel Unavailable Unavailable + Margie, Sandip Unavailable Unavailable + KEYS, BRIAN Unavailable [address] + [place] [address] UE Unavailable Unavailable Unavailable MARGIE, SANDIP Unavailable [address] + [place] [address] KEYS, BRIAN Unavailable [address] + [place] [address] UE Unavailable Unavailable Unavailable MARGIE, SANDIP Unavailable [address] + [place] [address] KEYS, BRIAN Unavailable [address] + [place] [address] UE Unavailable Unavailable Unavailable MARGIE, ASNDIP Unavailable [address] + [place] [address] Keys, Isabel Unavailable Unavailable + Margie, Sandip Unavailable Unavailable + KEYS, BRIAN Unavailable [address] + [place] [address] UE Unavailable Unavailable Unavailable MARGIE, SANDIP Unavailable [address] + [place] [address] KEYS, BIRAN Unavailable [address] + [place] [address] UE Unavailable Unavailable Unavailable MARGIE, SANDIP Unavailable [address] + [place] [address] Keys, Isabel Unavailable Unavailable + Margie, Sandip Unavailable Unavailable + KESY, BRIAN Unavailable [address] + [place] [address] UE Unavailable Unavailable Unavailable MARGIE, SANDIP Unavailable [address] + [place] [address] KEYS, BRIAN Unavailable [address] + [place] [address] UE Unavailable Unavailable Unavailable MARGIE, SANDIP Unavailable [address] + [place] [address] KEYS, BRIAN Unavailable [address] + [place] [address] UE Unavailable Unavailable Unavailable MARGIE, SANDIP Unavailable [address] + [place] [address] KEYS, BRIAN Unavailable [address] + [place] [address] UE Unavailable Unavailable Unavailable MARGIE, SANDIP Unavailable [address] + [place] [address] Keys, Isabel Unavailable Unavailable + Margie, Sandip Unavailable Unavailable + Keys, Isabel Unavailable Unavailable + Margie, Sandip Unavailable Unavailable + Keys, Isabel Unavailable Unavailable + Margie, Sandip Unavailable Unavailable + KEYS, BRIAN Unavailable [address] + [place] [address] UE Unavailable Unavailable Unavailable MARGIE, SANDIP Unavailable [address] + [place] [address] Keys, Isabel Unavailable Unavailable + Margie, Sandip Unavailable Unavailable + Keys, Isabel Unavailable Unavailable + Margie, Sandip Unavailable Unavailable + Keys, Isabel Unavailable Unavailable + Margie, Sandip Unavailable Unavailable + Keys, Isabel Unavailable Unavailable + Margie, Sandip Unavailable Unavailable + Keys, Isabel Unavailable Unavailable + Margie, Sandip Unavailable Unavailable + Keys, Isabel Unavailable Unavailable + Margie, Sandip Unavailable Unavailable + Keys, Isabel Unavailable Unavailable + Margie, Sandip Unavailable Unavailable + Keys, Isabel Unavailable Unavailable + Margie, Sandip Unavailable Unavailable + KEYS, BRIAN Unavailable [address] + [place] [address] UE Unavailable Unavailable Unavailable MARGIE, SANDIP Unavailable [address] + [place] [address] KEYS, BRIAN Unavailable [address] + [place] [address] UE Unavailable Unavailable Unavailable MARGIE, SANDIP Unavailable [address] + [place] [address] Keys, Isabel Unavailable Unavailable + Margie, Sandip Unavailable Unavailable + Keys, Isabel Unavailable Unavailable + Margie, Sandip Unavailable Unavailable + KEYS, BRIAN Unavailable [address] + [place] [address] UE Unavailable Unavailable Unavailable MARGIE, SANDIP Unavailable [address] + [place] [address] Keys, Isabel Unavailable Unavailable + Margie, Sandip Unavailable Unavailable + Keys, Isbael Unavailable Unavailable + Margie, Sandip Unavailable Unavailable + Keys, Isabel Unavailable Unavailable + Margie, Sandip Unavailable Unavailable + Keys, Isabel Unavailable Unavailable + Margie, Sandip Unavailable Unavailable + Keys, Isabel Unavailable Unavailable + Margie, Sandip Unavailable Unavailable + Keys, Isabel Unavailable Unavailable + Margie, Sandip Unavailable Unavailable + KEYS, BRIAN Unavailable [address] + [place] [address] UE Unavailable Unavailable Unavailable MARGIE, SANDIP Unavailable [address] + [place] [address] Care Team Providers Name Role Phone PROVIDER, UNKNOWN Referring Unavailable Swihart, Keli Primary Care Unavailable Piyush Valencia Attending Unavailable PROVIDER, UNKNOWN Referring Unavailable Swihart, Keli Primary Care Unavailable PROVIDER, UNKNOWN Referring Unavailable Swihart, Keli Primary Care Unavailable Piyush Valencia Attending Unavailable Piyush Valencia Attending Unavailable PROVIDER, UNKNOWN Referring Unavailable Swihart, Keli Primary Care Unavailable Piyush Valencia Attending Unavailable PROVIDER, UNKNOWN Referring Unavailable Swihart, Keli Primary Care Unavailable Piyush Valencia Attending Unavailable PROVIDER, UNKNOWN Referring Unavailable Swihart, Keli Primary Care Unavailable Piyush Vaelncia Attending Unavailable PROVIDER, UNKNOWN Referring Unavailable Swihart, Keli Primary Care Unavailable Piyush Valencia Attending Unavailable PROVIDER, UNKNOWN Referring Unavailable Swihart, Keli Primary Care Unavailable Piyush Valencia Attending Unavailable PROVIDER, UNKNOWN Referring Unavailable Swihart, Keli Primary Care Unavailable Piyush Valencia Attending Unavailable PROVIDER, UNKNOWN Referring Unavailable Swihart, Keli Primary Care Unavailable PROVIDER, UNKNOWN Referring Unavailable Swihart, Keli Primary Care Unavailable Piyush Valencia Attending Unavailable PROVIDER, UNKNOWN Referring Unavailable Swihart, Keli Primary Care Unavailable Piyush Valencia Attending Unavailable PROVIDER, UNKNOWN Referring Unavailable Swihart, Keli Primary Care Unavailable Harmony Cullen Attending Unavailable Harmony Cullen Attending Unavailable PROVIDER, UNKNOWN Referring Unavailable Swihart, Keli Primary Care Unavailable Gem Lezama Attending Unavailable PROVIDER, UNKNOWN Referring Unavailable Swihart, Keli Primary Care Unavailable PROVIDER, UNKNOWN Referring Unavailable Swihart, Keli Primary Care Unavailable Harmony Cullen Attending Unavailable Harmony Cullen Attending Unavailable PROVIDER, UNKNOWN Referring Unavailable Swihart, Keli Primary Care Unavailable Harmony Cullen Attending Unavailable PROVIDER, UNKNOWN Referring Unavailable Swihart, Keli Primary Care Unavailable RAMON KESSLER Attending Unavailable PROVIDER, UNKNOWN Referring Unavailable Swihart, Keli Primary Care Unavailable SILVIO ORTEGA Attending Unavailable PROVIDER, UNKNOWN Referring Unavailable Swihart, Keli Primary Care Unavailable PROVIDER, UNKNOWN Referring Unavailable Swihart, Keli Primary Care Unavailable Cecilia Mckay Attending Unavailable RAMON KESSLER Attending Unavailable PROVIDER, UNKNOWN Referring Unavailable Swihart, Keli Primary Care Unavailable Gem Lezama Attending Unavailable PROVIDER, UNKNOWN Referring Unavailable Swihart, Keli Primary Care Unavailable PROVIDER, UNKNOWN Referring Unavailable Swihart, Keli Primary Care Unavailable Gem Lezama Attending Unavailable Harmony Cullen Attending Unavailable PROVIDER, UNKNOWN Referring Unavailable Swihart, Keli Primary Care Unavailable Harmony Cullen Attending Unavailable PROVIDER, UNKNOWN Referring Unavailable Swihart, Keli Primary Care Unavailable Harmony Cullen Attending Unavailable PROVIDER, UNKNOWN Referring Unavailable Swihart, Keli Primary Care Unavailable PROVIDER, UNKNOWN Referring Unavailable Swihart, Keli Primary Care Unavailable Harmony Cullen Attending Unavailable PROVIDER, UNKNOWN Referring Unavailable Swihart, Keli Primary Care Unavailable Harmony Cullen Attending Unavailable PROVIDER, UNKNOWN Referring Unavailable Swihart, Keli Primary Care Unavailable Harmony Cullen Attending Unavailable PROVIDER, UNKNOWN Referring Unavailable Swihart, Keli Primary Care Unavailable Harmony Cullen Attending Unavailable RAMON KESSLER Attending Unavailable PROVIDER, UNKNOWN Referring Unavailable Swihart, Keli Primary Care Unavailable RAMON KESSLER Attending Unavailable PROVIDER, UNKNOWN Referring Unavailable Swihart, Keli Primary Care Unavailable Harmony Cullen Attending Unavailable PROVIDER, UNKNOWN Referring Unavailable Swihart, Keli Primary Care Unavailable Harmony Cullen Attending Unavailable PROVIDER, UNKNOWN Referring Unavailable Swihart, Keli Primary Care Unavailable RAMON KESSLER RDilip Attending Unavailable PROVIDER, UNKNOWN Referring Unavailable Swihart, Keli Primary Care Unavailable PROVIDER, UNKNOWN Referring Unavailable Swihart, Keli Primary Care Unavailable Hernandez Dixon Attending Unavailable AMBERLY, RAMON RDilip Attending Unavailable PROVIDER, UNKNOWN Referring Unavailable Swihart, Keli Primary Care Unavailable RAMON KESSLER Attending Unavailable PROVIDER, UNKNOWN Referring Unavailable Swihart, Keli Primary Care Unavailable BRIDRAMON HERRING Attending Unavailable PROVIDER, UNKNOWN Referring Unavailable Swihart, Keli Primary Care Unavailable BRIDRAMON HERRING RDilip Attending Unavailable PROVIDER, UNKNOWN Referring Unavailable Swihart, Keli Primary Care Unavailable Roof, Harmony H Attending Unavailable Swihart REPAIRER CYLINDER HEADS, Keli Referring Unavailable Roof, Harmony H Attending Unavailable Roof, Harmony H Referring Unavailable Swihart REPAIRER CYLINDER HEADS, Keli Primary Care Unavailable ShookAshtyn [facility] Attending Unavailable Swihart REPAIRER CYLINDER HEADS, Keli Referring Unavailable ShookAshtyn [facility] Attending Unavailable ShoAshtyn sanchez [facility] Referring Unavailable [facility] Primary Care Unavailable Silvio Ortega Consulting Unavailable Swihart REPAIRER CYLINDER HEADS, Keli Consulting Unavailable Roof, Harmony H Attending Unavailable Swihart REPAIRER CYLINDER HEADS, Keli Referring Unavailable ShoAshtyn sanchez STABLE [facility] Attending Unavailable ShoAshtyn sanchez STABLE HAND-C Referring Unavailable [facility] Primary Care Unavailable [facility] Attending Unavailable [facility] Primary Care Unavailable ShoAshtyn sanchez STABLE [facility]-C Attending Unavailable [facility] Referring Unavailable [facility] Primary Care Unavailable Fran Rossi Attending Unavailable Silvio Ortega Attending Unavailable [facility] Referring Unavailable [facility] Primary Care Unavailable ShoAshtyn sanchez STABLE HAND-C Attending Unavailable [facility] Referring Unavailable [facility] Primary Care Unavailable Ashtyn Reyes STABLE HAND-C Attending Unavailable Yoseph Anderson Attending Unavailable Swihart REPAIRER CYLINDER HEADS, Keli Primary Care Unavailable Roof, Harmony H Attending Unavailable Roof, Harmony H Referring Unavailable [facility] Primary Care Unavailable Swihart REPAIRER CYLINDER HEADS, Keli Consulting Unavailable Silvio Ortega Consulting Unavailable Ashtyn Reyes STABLE HAND-C Attending Unavailable [facility] Referring Unavailable Samm Ortiz Attending Unavailable Swihart REPAIRER CYLINDER HEADS, Keli Referring Unavailable Swihart REPAIRER CYLINDER HEADS, Keli Primary Care Unavailable Samm Ortiz Attending Unavailable Samm Ortiz Referring Unavailable [facility] Primary Care Unavailable Swihart REPAIRER CYLINDER HEADS, Keli Consulting Unavailable Samm Ortiz Attending Unavailable Samm Ortiz Referring Unavailable [facility] Primary Care Unavailable Berhane SWEENEY, Keli Consulting Unavailable Samm Ortiz Consulting Unavailable Silvio Ortega Attending Unavailable [facility] Referring Unavailable [facility] Primary Care Unavailable Silvio Ortega Attending Unavailable [facility] Primary Care Unavailable Silvio Ortega Attending Unavailable Silvio Ortega Referring Unavailable Harmony Santo Attending Unavailable [facility] Referring Unavailable Ashtyn Reyes Attending Unavailable Berhane SWEENEY, Keli Referring Unavailable Florence Izquierdo Attending Unavailable [place] REPAIRER CYLINDER HEADS, Keli Primary Care Unavailable Berhane SWEENEY, Keli Primary Care Unavailable Kevon Mackenzie Attending Unavailable PROBLEMS PROBLEMS DATE TYPE CONDITION / CODE ATTENDING STATUS SOURCE 04/01/2018 Admitting Gastro-esophageal BRIDLE, RAMON [facility] Diagnosis reflux disease R. System without esophagitis Repository / K21.9(ICD-10) 04/01/2018 Admitting Diaphragmatic hernia BRIDLE, RAMON [facility] Diagnosis without obstruction R. System or gangrene / Repository K44.9(ICD-10) 04/01/2018 Admitting Intestinal BRIDLE, RAMON [facility] Diagnosis malabsorption, R. System unspecified / Repository K90.9(ICD-10) 04/01/2018 Admitting Bariatric surgery BRIDLE, RAMON [facility] Diagnosis status / R. System Z98.84(ICD-10) Repository 04/01/2018 Admitting Other specified BRIDLE, RAMON [facility] Diagnosis diseases of R. 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 System Repository 03/05/2018 Admitting Essential (primary) Zografakis, Active [facility] Diagnosis hypertension / [facility] I10(ICD-10) Repository 03/05/2018 Admitting Obstructive sleep Zografakis, Active [facility] Diagnosis apnea (adult) [facility] (pediatric) / Repository G47.33(ICD-10) 03/05/2018 Admitting Morbid (severe) Zografakis, Active [facility] Diagnosis obesity due to [facility] excess calories / Repository E66.01(ICD-10) 03/05/2018 Admitting Type 2 diabetes Zografakis, Active [facility] Diagnosis mellitus with [facility] unspecified Repository complications / E11.8(ICD-10) 03/05/2018 Admitting Pure Zografakis, Active [facility] Diagnosis hypercholesterolemia [facility] , unspecified / Repository E78.00(ICD-10) 03/05/2018 Admitting Body mass index Zografakis, Active [facility] Diagnosis (BMI) 50-59.9, adult [facility] / Z68.43(ICD-10) Repository 03/05/2018 Admitting Other specified Zografakis, Active [facility] Diagnosis nutritional [facility] deficiencies / Repository E63.8(ICD-10) 03/05/2018 Admitting Calculus of Zografakis, Active [facility] Diagnosis gallbladder w/o [facility] cholecystitis w/o Repository obstruction / K80.20(ICD-10) 03/05/2018 Admitting Encounter for other Zografakis, Active [facility] Diagnosis specified aftercare [facility] / Z51.89(ICD-10) Repository 03/05/2018 Admitting Other specified Zografakis, Active [facility] Diagnosis postprocedural [facility] states / Repository Z98.890(ICD-10) 03/02/2018 Admitting Vomiting without BRIDLE, RAMON [facility] Diagnosis nausea / R. 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 / [facility] Z79.4(ICD-10) Repository 02/22/2018 Admitting Type 2 diabetes Dixon, Active [facility] Diagnosis mellitus without [facility] complications / Repository E11.9(ICD-10) 02/22/2018 Admitting Major depressive Dixon, 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, single [facility] episode, unspecified Repository / F32.9(ICD-10) 02/22/2018 Admitting Presence of coronary Dixon, Active [facility] Diagnosis angioplasty implant [facility] and graft / Repository Z95.5(ICD-10) 02/22/2018 Admitting Athscl heart disease Dixon, 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 Repository / I25.10(ICD-10) 02/22/2018 Admitting Dehydration / Dixon, Active [facility] Diagnosis E86.0(ICD-10) Ng [facility] Repository 02/22/2018 Admitting Cholecystitis, Dixon, Active [facility] Diagnosis unspecified / [facility] K81.9(ICD-10) Repository 02/22/2018 Admitting Acute cholecystitis Dixon, Active [facility] Diagnosis / K81.0(ICD-10) Ng [facility] Repository 02/22/2018 Admitting Acute kidney Dixon, Active [facility] Diagnosis failure, unspecified [facility] / N17.9(ICD-10) Repository 02/22/2018 Admitting Postsurgical Dixon, Active [facility] Diagnosis malabsorption, not [facility] elsewhere classified Repository / K91.2(ICD-10) 02/22/2018 Admitting Laparoscopic Dixon, Active [facility] Diagnosis surgical procedure [facility] converted to open Repository procedure / Z53.31(ICD-10) 02/22/2018 Admitting Hypokalemia / Dixon, Active [facility] Diagnosis E87.6(ICD-10) Ng [facility] Repository 02/22/2018 Admitting Tachycardia, Dixon, Active [facility] Diagnosis unspecified / [facility] R00.0(ICD-10) Repository 02/17/2018 Admitting Intestinal bypass Zografakis, Active [facility] Diagnosis and anastomosis [facility] status / Repository Z98.0(ICD-10) 02/17/2018 Admitting Epigastric pain / Zografakis, Active [facility] Diagnosis R10.13(ICD-10) [facility] Repository 02/17/2018 Admitting Dysphagia, Zografakis, Active [facility] Diagnosis unspecified / [facility] R13.10(ICD-10) Repository 02/17/2018 Admitting Nausea with Zografakis, Active [facility] Diagnosis vomiting, [facility] unspecified / Repository R11.2(ICD-10) 02/09/2018 Unknown E66.9 - Obesity, Ashtyn Reyes Active [place] unspecified / J [facility] E66.9(ICD-10) Hospital Repository 02/03/2018 Admitting Other fatigue / Zografakis, Active [facility] Diagnosis R53.83(ICD-10) [facility] Repository 02/03/2018 Admitting Deficiency of Zografakis, Active [facility] Diagnosis multiple nutrient [facility] elements / Repository E61.7(ICD-10) 02/03/2018 Admitting Shortness of breath Zografakis, Active [facility] Diagnosis / R06.02(ICD-10) [facility] Repository 02/03/2018 Admitting Somnolence / Zografakis, Active [facility] Diagnosis R40.0(ICD-10) [facility] Repository 02/03/2018 Admitting Other acute Zografakis, Active [facility] Diagnosis postprocedural pain [facility] / G89.18(ICD-10) Repository 02/03/2018 Admitting Candidal stomatitis Zografakis, Active [facility] Diagnosis / B37.0(ICD-10) [facility] Repository 01/26/2018 Admitting half-way (current) Zografakis, Active [facility] Diagnosis use of aspirin / [facility] Z79.82(ICD-10) Repository 01/26/2018 Admitting Old myocardial Zografakis, Active [facility] Diagnosis infarction / [facility] I25.2(ICD-10) Repository 01/26/2018 Admitting Hyperlipidemia, Zografakis, Active [facility] Diagnosis unspecified / [facility] E78.5(ICD-10) Repository 01/26/2018 Admitting Fatty (change of) Zografakis, Active [facility] Diagnosis liver, not elsewhere [facility] classified / Repository K76.0(ICD-10) 01/26/2018 Admitting Hypothyroidism, Alyse, Active [facility] Diagnosis unspecified / [facility] E03.9(ICD-10) Repository 01/22/2018 Admitting Encounter for other Zografakis, Active [facility] Diagnosis preprocedural [facility] examination / Repository Z01.818(ICD-10) 01/19/2018 Admitting Gastro-esophageal BRIDLEDANIA Active [facility] Diagnosis reflux disease with R. System esophagitis / Repository K21.0(ICD-10) 01/08/2018 Admitting Esophageal Zografakis, Active [facility] Diagnosis obstruction / [facility] K22.2(ICD-10) Repository 12/05/2017 Unknown E78.5 - Silvio Ortega Active [facility] Hyperlipidemia, Community unspecified / Hospital E78.5(ICD-10) Repository 12/05/2017 Unknown Z01.810 - Encounter Silvio Ortega Active [facility] for preprocedural [facility] examination / Repository Z01.810(ICD-10) 11/27/2017 Admitting Dependence on other Piyush Valencia Active [facility] Diagnosis enabling machines System and devices / Repository Z99.89(ICD-10) 11/10/2017 Admitting Prediabetes / Erik Piyush Active [facility] Diagnosis R73.03(ICD-10) System Repository 11/07/2017 Unknown K59.00 - Angel Active [place] Constipation, Samm Community unspecified / Hospital K59.00(ICD-10) Repository 10/20/2017 Admitting Adjustment disorder Teja, [facility] Diagnosis with anxiety / [facility] F43.22(ICD-10) Repository 10/20/2017 Admitting Eating disorder, Teja, Active [facility] Diagnosis unspecified / [facility] F50.9(ICD-10) Repository 10/20/2017 Admitting Major depressv Teja, [facility] Diagnosis disord, single epsd, [facility] sev w/o psych Repository features / F32.2(ICD-10) 10/01/2017 Admitting Body mass index Zografakis, [facility] Diagnosis (BMI) 50-59.9 , [facility] adult / Repository Z68.43(ICD-10) 10/01/2017 Admitting Dietary counseling Alyse, Active [facility] Diagnosis and surveillance / [facility] Z71.3(ICD-10) Repository 09/04/2017 Admitting Other specified Rummell, Active [facility] Diagnosis eating disorder / [facility] F50.89(ICD-10) Repository 09/04/2017 Admitting Major depressv Rummell, Active [facility] Diagnosis disorder, recurrent [facility] severe w/o psych Repository features / F33.2(ICD-10) 08/25/2017 Admitting Generalized BRIDLE, RAMON Active [facility] Diagnosis abdominal pain / R. System R10.84(ICD-10) Repository 08/12/2017 Admitting Gastritis, Alyse, Active [facility] Diagnosis unspecified, without [facility] bleeding / Repository K29.70(ICD-10) 08/12/2017 Admitting Anxiety disorder, Alyse, Active [facility] Diagnosis unspecified / [facility] F41.9(ICD-10) Repository 08/12/2017 Admitting Allergy status to Alyse, Active [facility] Diagnosis oth drug/meds/biol [facility] subst status / Repository Z88.8(ICD-10) 08/07/2017 Unknown E11.69 - Type 2 Silvio Ortega Active [facility] diabetes mellitus [facility] with other specified Hospital complication / Repository E11.69(ICD-10) 07/31/2017 Admitting Major depressv Lezama, 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, recurrent, [facility] severe w psych Repository symptoms / F33.3(ICD-10) 07/02/2017 Admitting Oth diabetes Erik Piyush Active [facility] Diagnosis mellitus with System unspecified Repository complications / E13.8(ICD-10) 06/11/2017 Admitting Obesity, unspecified Piyush Valencia Active [facility] Diagnosis / E66.9(ICD-10) System Repository 06/11/2017 Admitting Other specified Piyush Valencia Active [facility] Diagnosis diabetes mellitus System without Repository complications / E13.9(ICD-10) PROCEDURES PROCEDURES No Procedure Records FoundRESULTS RESULTS ECHO, COMPLETE W/ Observed: 04/07/2018 Status: F Source: [place] CONTRAST 8:45 AM [facility] REPOSITORY [facility] Cardi[facility] Services [address] [place] [address] Echo Complete W/ Contrast 04/02/18 1249 MR#: [id number] Acct: [id number] Name: BRADLEY KEYS Rep #: [id number] : 1960 57 From: Silvio Ortega MD Attending Dr: Harmony Santo, STABLE HAND Status: REG CLI Ordering Dr: Harmony Santo STABLE HAND-C Date: 04/02/18 Location: [facility] Sex: M C Admitted: Reason For Study: DYSPNEA/SOB Procedure This was a 2D Doppler, Color Flow transthoracic echocardiogram. The study was technically difficult. Contrast injection was performed. Exam performed in department. Left Ventricle Normal size and thickness. The estimated ejection fraction is 65 %. Stage 1 diastolic dysfunction. No regional wall motion abnormalities noted. Right Ventricle Normal size and thickness. Normal systolic function. Atria Normal left atrium. Normal right atrium. Normal atrial septum. Mitral Valve The mitral valve is structurally normal. No prolapse or stenosis seen. Tricuspid Valve Normal tricuspid valve. Unable to estimate RV systolic pressure due to inadequate jet, pulmonary artery pressure probably normal. Aortic Valve Normal aortic valve. Trisinus/trileaflet aortic valve. Pulmonic Valve The pulmonic valve is not well visualized. Great Vessels Normal aortic root. Normal arch. Normal inferior vena cava. Inferior vena cava collapse with sniff. Pericardium/Pleural No pericardial effusion. Medication 22 gauge I.V. with prn adaptor inserted into right arm. Diluted definity 4.0ml given slow IV push to enhance endocardial definition. MMode/2D Measurements AND Calculations LVIDd: 5.0 cm IVSd: 1.3 cm Ao root diam: 3.2 cm LVIDs: 3.7 cm LVPWd: 1.2 cm RVDd: 3.2 cm FS: 26.1 % LAV(MOD-bp): 52.6 ml LA A4 area: 18.6 cm2 LA dimension(2D): 4.4 cm LAV(MOD-bp) Indexed: 21.4 ml/m2 LAV(MOD-sp2): 52.1 ml LAV(MOD-sp4): 52.1 ml Doppler Measurements AND Calculations MV E max ronnie: 82.3 cm/sec Lat Peak E' Ronnie: 7.9 cm/sec Med Peak E' Ronnie: 9.3 cm/sec MV A max ronnie: 95.9 cm/sec E/E' lat: 10.4 E/E' med: 8.9 MV E/A: 0.86 Ao V2 max: 114.4 cm/sec LV V1 max: 93.0 cm/sec PA V2 max: 101.6 cm/sec Ao max P.2 mmHg LV V1 max P.5 mmHg Interpretation Summary The estimated ejection fraction is 65 %. Stage 1 diastolic dysfunction. Unable to estimate RV systolic pressure due to inadequate jet, pulmonary artery pressure probably normal. Compared to echo report dated 07/30/2016, no appreciable changes noted. The study was technically difficult. Contrast injection was performed. Ordering Physician: Harmony Santo Referring Physician: Jensen [facility] Performed By: Andie Paz, SUMEET, RVT 04/07/18 0845 Date Silvio Ortega MD CC: MARISOL Santo; JENSEN [facility]PH [facility] Date Dictated: 04/02/18 1249 Date Transcribed: 04/07/18 0845 Medical Reception Specialist: Signed RF UGI W/O KUB W/ Observed: 04/01/2018 Status: F Source: [facility] OR W/O DELAY FLM 11:27 AM SYSTEM REPOSITORY Patient Name: BRADLEY KEYS Fluoroscopy Exam Date/Time 04/01/2018 11:08:23 EST Exam RF UGI w/o KUB and w/ or w/o Delay Flm Ordering Physician MARISOL KESSLER, RAMON Loera Accession Number [id number] [facility] Codes [address] () Reason For Exam malabsorption / reflux Report AIR CONTRAST UGI SERIES CLINICAL INDICATIONS: Malabsorption. Reflux. History of gastric bypass. COMPARISON: 01/2018 FLUOROSCOPY TIME: 0.6 minutes. 56 fluoroscopic spot images were obtained. TECHNIQUE: Biphasic exam was performed with barium and air performed. FINDINGS: Barium and air are administered. The esophagus is studied in the upright as well as the horizontal positions. The esophagus is normal in course and caliber. There are mild tertiary esophageal contractions. There is a small hiatal hernia. No free gastroesophageal reflux is seen at this time. Barium flows freely from the esophagus into the pouch. There has been gastric bypass with Yang-en-Y configuration. The gastric pouch is unremarkable. The gastrojejunostomy is patent without signs of narrowing. The visualized portions of the proximal small bowel appear unremarkable. The visualized proximal jejunum is unremarkable. IMPRESSION: Tertiary esophageal contractions. Small hiatus hernia without gastroesophageal reflux. Changes consistent with gastric bypass. Report Dictated on Final Dictated: 04/01/2018 11:25 am Dictating Physician: DO MESSINA ANTHONY Signed Date and Time: 04/01/2018 11:42 am Signed by: DO MESSINA ANTHONY Transcribed Date and Time: 04/01/2018 11:27 MICROALB:CREAT Collected: 03/18/2018 Status: F Source: NGUY[place]N RATIO,RANDOM UR 10:16 AM [facility] REPOSITORY TYPE CODE TESTS RESULT OUT OF RANGE REFERENCE UNITS LAB L501.1200 NO RANGE EST. mg/dL Normal UR CREAT 144.00 LAB L502.0500 NO RANGE EST. mg/L Normal 11.2 MICROALBUMIN ,UR LAB L502.0600 <30 mg/g CRE mg/g CRE Normal 7.8 MALB:CREAT Performed By: #### L502.0250 #### [facility] [address] [place], [address] BASIC METABOLIC Collected: 03/13/2018 Status: F Source: NGU[place] PROFILE (BMP) 8:14 AM [facility] REPOSITORY Order Comment: Comments: Do at same time as BTNP Comments: Do at same time as BMP TYPE CODE TESTS RESULT OUT OF RANGE REFERENCE UNITS LAB L501.0100 74-106 mg/dL High GLU 157 Result Comment: Fasting Glucose result greater than or equal to 126 mg/dL suggests DIABETES MELLITUS per A.D.A. criteria. Please note revised GLUCOSE reference range effective 2017. LAB L501.1000 7-18 mg/dL Normal BUN 11 LAB L501.1100 0.70-1.30 mg/dL Normal CREAT,SERUM 0.90 Result Comment: The validity of the calculated GFR AND GFRAA in patients over 70 years has not been determined. Clinical correlation is essential. LAB L501.1110 >60 mL/min Normal EST GFR 92 Result Comment: Non- GFR Calc LAB L501.1115 >60 mL/min Normal EST GFR - AA 112 Result Comment: GFR Calc LAB L501.1300 10-20 RATIO Normal BUN/CRE 12.2 LAB L501.2200 8.5-10.1 mg/dL CA Normal 8.8 LAB L501.5300 136-145 mmol/L NA Normal 143 LAB L501.5600 3.5-5.1 mmol/L K Normal 3.8 LAB L501.5900 98-107 mmol/L CL Normal 102 LAB L501.6100 21.0-32.0 mmol/L Normal CO2 31.0 LAB L501.6200 5-15 Normal GAP 10 Performed By: #### L500.2500 #### [facility] [address] [place], [address] BNP,B-TYPE NATRIURETIC Collected: 03/13/2018 Status: F Source: N[place] PEPTIDE 8:14 AM [facility] REPOSITORY Order Comment: Comments: Do at same time as BMP Comments: Do at same time as BMP TYPE CODE TESTS RESULT OUT OF RANGE REFERENCE UNITS LAB L503.6620 0-100 pg/mL Normal B-TYPE 11.6 KY PEP Performed By: #### L503.6620 #### [facility] [address] [place], [place], [id number] HEMOGLOBIN A1C Collected: 03/13/2018 Status: F Source: [place] 8:13 AM [facility] REPOSITORY TYPE CODE TESTS RESULT OUT OF RANGE REFERENCE UNITS LAB L501.9985 4.2-6.3 % High HGB A1C 7.5 Performed By: #### L501.9985 #### [facility] [address] [facility] [id number] LIVER PROFILE Collected: 03/13/2018 Status: F Source: [place] 8:13 AM [facility] REPOSITORY TYPE CODE TESTS RESULT OUT OF RANGE REFERENCE UNITS LAB L501.1500 6.4-8.2 g/dL Normal T PROT 6.5 LAB L501.1800 3.2-5.0 g/dL Low ALB 3.0 LAB L501.1950 2.2-4.2 g/dL Normal GLOB 3.5 LAB L501.4100 15-37 U/L Normal AST 17 LAB L501.4305 45-117 U/L Normal ALK P 82 LAB L501.4405 16-61 U/L Normal ALT 24 LAB L501.4600 0.20-1.00 mg/dL Normal T BILI 0.90 LAB L501.4700 0.00-0.30 mg/dL High D BILI 0.35 Performed By: #### L500.3400, L500.4100 #### [facility] [address] [place], [place], [id number] LIPID PROFILE Collected: 03/13/2018 Status: F Source: [place] 8:13 AM [facility] REPOSITORY TYPE CODE TESTS RESULT OUT OF RANGE REFERENCE UNITS LAB L501.4900 200 mg/dL Normal CHOL 70 Result Comment: <200 mg/dL Desirable 200-240 mg/dL Borderline >240 mg/dL High Risk LAB L501.5000 mg/dL High TRIG 202 Result Comment: The drugs N-Acetylcysteine and Metamizole may falsely depress this assay. Serum Triglycerides Reference Interval Normal <150 mg/dL Borderline high 150 - 199 mg/dL High 200 - 499 mg/dL Very High > or = 500 mg/dL LAB L501.6400 mg/dL Low HDL 29 Result Comment: The drugs N-Acetylcysteine and Metamizole may falsely depress this assay. Reference Range HDL <40 mg/dL Low HDL Cholesterol HDL >or= 60 mg/dL High HDL Cholesterol LAB L501.6500 0-130 mg/dL Normal LDL 1 LAB L501.6600 5-40 mg/dL Normal VLDL 40 Performed By: #### L500.3400, L500.4100 #### [facility] [address] [place], [address] THYROID STIM HORMONE Collected: 03/13/2018 Status: F Source: NGUYỄN (TSH) 8:13 AM [facility] REPOSITORY TYPE CODE TESTS RESULT OUT OF RANGE REFERENCE UNITS LAB L501.9520 0.358-3.74 uIU/mL Normal TSH 0.91 Performed By: #### L501.9520, L506.0400 #### [facility] [address] [place], [address] T4 FREE DIRECT Collected: 03/13/2018 Status: F Source: NGUYỄN 8:13 AM [facility] REPOSITORY TYPE CODE TESTS RESULT OUT OF REFERENCE UNITS RANGE LAB L506.0400 0.76-1.46 ng/dL High T4 FREE 1.49 DIRECT Performed By: #### L501.9520, L506.0400 #### [facility] [address] [place], [address] ENDOCRINOLOGY VISIT Observed: 03/12/2018 Status: F Source: NGUYỄN REPORT 8:13 AM [facility] REPOSITORY [facility] [address] [place] [address] OFFICE VISIT Date of Service: 03/11/18 MR#: [id number] Acct: [id number] Name: BRADLEY KEYS Rep #: [id number] : 1960 Provider: Ashtyn Reyes NP Age/Sex: 57/M Location: [facility] Status: Signed HPI History of present illness Bradley is a 56 year old male who presents for follow up of diabetes type 2, Underwent gastric bypass surgery 6 weeks ago. Had gallbladder surgery recently. . Is now on soft diet. Currently taking no insulin, and alogliptin 25mg daily. Brings meter for last month with 2 readings recorded. States BG was 180 so he took 10 units of insulin but he did not recheck BG to see what the result of this action was. Reports having leg swelling and nausea. Has followed up with surgeon as well as cardiology and has more appointments this week. At time of visit: -Pt denies symptoms of hypertensive emergency (CP,SOB,FONSECA, or blurred vision) and hypotension(dizziness or lightheadedness) -Pt denies symptoms of hypoglycemia ( sweaty, confusion, anxiety, tremor, hunger, palpitations) and hyperglycemia ( polydipsia, polyuria) -Pt denies potential medication adverse effect. Hypoglycemia Aware of hypoglycemia: When awake Able to self treat low BG: Yes Frequent low Blood sugar: No Has supply of glucagon: Yes Since our last visit he denies excessive thirst, increased frequency of urination, chest pain or dyspnea. Follows a pureed diabetic diet, Is compliant with medication and is tolerating without side effects. SMBG 2 BG readings for the last month. 177 and 181 Exam Const General: cooperative Nutritional Appearance: overweight Orientation: oriented x3 HENMT Head: normal to inspection, atraumatic Ears: hearing grossly normal bilaterally Mouth: oral mucosae normal, moist mucous membranes Eyes General: appearance normal, both eyes and all related structures Sclera: sclerae normal Pupils: PERRL Neck Neck: normal visual inspection Chest Chest palpation AND inspection: deferred. Surgical incision note well healing and dry skin. No drainage. Resp Effort AND Inspection: normal respiratory effort, able to speak in complete sentences, symmetric chest movement Cardio Rate: regular rate GI Inspection: normal to inspection Auscultation: normal bowel sounds Skin General: healing well from surgical areas on abdomen. General: oriented x3, moves all extremities Cranial Nerves: hearing normal Cognition: normal cognition Speech: speech normal Gait: normal gait, slow Sensory Exam: no sensory deficits noted Extrem General: normal exam except as noted (Has lower leg edema) Psych Appearance: grossly normal Mood: congruent mood Affect: normal affect Speech and Movement: speech and movement normal Thought Process: normal Thought Content: normal Judgment: fair Type: type 2 Glucose control symptoms: Reports high fasting glucose Weight and fatigue symptoms: Reports weight loss; denies snoring Cardiopulmonary symptoms: Reports lightheadedness; denies chest pain at rest, dyspnea on exertion or myalgias GI symptoms: Reports diarrhea, nausea/dyspepsia and vomiting; denies constipation Skin and extremity symptoms: Denies erectile dysfunction Other symptoms: Denies blurry vision or change in vision Pertinent visit history: Reports recent hospital admission Self monitoring: No Dietary compliance: Diabetes: other Diabetes education in past year: Yes Glucose testing: understands testing schedule Physical activity: sedentary lifestyle Intake Vital Signs03/11/18 Height 5 ft 8 in 03/11/18 Weight: 316 lb 6 oz 03/11/18 Body Mass Index (BMI) 48.1 03/11/18 Blood Pressure 101/66 03/11/18 Blood Pressure Location Lt popliteal 03/11/18 Blood Pressure Position Sitting Intake Visit Reasons: Diabetes Mellitus Type 2 Closer On Required: No Accompanied by: Allergies celecoxib [From Celebrex] Allergy (Intermediate, Verified 03/06/18 15:16) Rash Medications Rosuvastatin Calcium [Crestor] 40 mg PO DAILY 01/31/17 [History Confirmed 03/11/18] potassium chloride ER 20 mEq tablet,extended release(part/cryst) 20 meq PO DAILY #30 tab 06/04/17 [Rx Confirmed 03/11/18] alogliptin 25 mg tablet 25 mg PO DAILY 09/25/17 [History Confirmed 03/11/18] Omeprazole [Prilosec] 20 mg PO DAILY 11/24/17 [History Confirmed 03/11/18] levothyroxine 100 mcg tablet 100 mcg PO QHS #30 tab 12/30/17 [Rx Confirmed 03/11/18] aspirin 81 mg tablet,delayed release 81 mg PO DAILY #90 tab 01/12/18 [Rx Confirmed 03/11/18] losartan 50 mg tablet 50 mg PO DAILY #30 tab 01/30/18 [Rx Confirmed 03/11/18] metoprolol tartrate 25 mg tablet 25 mg PO BID #60 tab 01/30/18 [Rx Confirmed 03/11/18] oxycodone-acetaminophen 5 mg-325 mg tablet 2 tab PO Q6H 01/30/18 [History Confirmed 03/11/18] promethazine 25 mg tablet 25 mg PO Q6H PRN 01/30/18 [History Confirmed 03/11/18] Calcium Carbonate [Tums] 1 - 3 tab PO DAILY 02/16/18 [History Confirmed 03/11/18] Multivitamin [Animal Shapes] 1 ea PO DAILY 02/16/18 [History Confirmed 03/11/18] Ursodiol 300 mg PO BID 02/16/18 [History Confirmed 03/11/18] furosemide 40 mg tablet 40 mg PO BID tab 03/06/18 [History Confirmed 03/11/18] ondansetron HCl 4 mg tablet 4 mg PO BID-TID PRN 03/11/18 [History Confirmed 03/11/18] Nurse's Note: blood sugars : low : high : PFSH Medical History Atherosclerotic heart disease of [place] coronary artery without angina pectoris (Chronic) HTN (hypertension) (Chronic) Hyperlipidemia (Chronic) HTN (hypertension) (Chronic) Diabetes mellitus type 2 in obese (Chronic) Hiatal hernia (Acute) Allergy-induced asthma (Chronic) CAD (coronary artery disease) (Chronic) Chronic diarrhea (Chronic) Diabetes type 2, uncontrolled (Chronic) Obesity (Chronic) Sleep apnea (Chronic) Surgical History History of coronary artery stent placement (Chronic) Hx of cholecystectomy (Acute) Status post bariatric surgery (Acute) H/O hemorrhoidectomy (Chronic) removal of enlarged lymph node (Chronic) removal of lypoma (Chronic) Family History Mother CAD (coronary artery disease) Diabetes Father CAD (coronary artery disease) Hypertension Sister CAD (coronary artery disease) Hypertension Social History Smoking Status: Never smoker second hand exposure: No alcohol intake: never substance use type: does not use ROS Const Constitutional: Positive for chills, fatigue, sleep problems and change in appetite; no anorexia, body ache, fever(s), frequent falls, decreased energy, malaise, night sweats, weakness, weight change, abnormal sleep pattern, other, headache(s), snoring or excessive sweating Eyes Eyes: No blurry vision, change in vision, double vision, discharge, dry eyes, bulging eyes, floaters, visual disturbances, eye pain, light sensitivity, spots in vision, tunnel vision or other ENT ENT: No abnormal hearing, ear pain, ear discharge, ear pressure, hearing loss, tinnitus, dizziness/vertigo, balance problems, nosebleed/epistaxis, nasal congestion, nasal obstruction, nose pain, sinus pressure, sinus pain, nasal discharge, post nasal drip, headache(s), facial pain, dental pain, dry mouth, bad breath, hoarseness, lip swelling, mouth lesions, mouth pain, sore throat, tongue swelling, throat swelling, other, difficulty swallowing or neck pain Resp Respiratory: Positive for shortness of breath; no cough, change in phlegm color, chest congestion, excessive phlegm production, hemoptysis, pain on inspiration, pain with cough, snoring, stridor, wheezing or other Cardio Cardiology: Positive for generalized swelling and lightheadedness; no chest pain at rest, chest pain with exertion, leg pain with exertion, excessive sweating, shortness of breath, dyspnea on exertion, irregular heart rhythm, orthopnea, radiating jaw, neck or arm pain, fast heart rate, slow heart rate, palpitations or other Gastro GI: Positive for abdominal pain, diarrhea, nausea/dyspepsia and vomiting; no belching, bloating, change in bowel habits, change in stool character, coffee ground emesis, constipation, cramping, heartburn, difficulty swallowing, feeling full early, excessive flatus, incontinent of stools, Vomiting blood/hematemesis, blood in stool, loose stools, Black,tarry stools, pain with swallowing or other Genitourinary Male: No difficulty urinating, burning urination, painful urination, urinary incontinence, urinary frequency, urinary urgency, urinary hesitancy, urinary retention, blood in urine, Frequent nighttime urination/ nocturia, post void dribbling, suprapubic fullness, side pain, sexual problems, genital lesions, genital itching, erectile dysfunction, penile discharge, difficulty with ejaculations, blood in semen, scrotal swelling, testicle lump, testicle pain or other Musc Musculoskeletal: No abnormal walking, joint pain, back pain, deformity, joint swelling, limited range of motion, loss of height, muscle cramps, muscle weakness, decreased muscle mass, body aches, neck pain, numbness, radiating pain into limb, stiffness, tingling or other Skin Skin: No acne, hair loss, change in hair, nail changes, boil, change in skin color, dry skin, redness, excessive hair growth, yellowing of the skin, lesions, itching, rash, skin pain, skin ulcer, sores, skin swelling, wounds or other Breast Breast: No other Neuro Neurology: No frequent falls, weakness, visual disturbances, abnormal hearing, headache(s), abnormal walking, numbness or tingling Psych Psychiatric: No abnormal sleep pattern, Positive for change in appetite Endo Endocrine: Positive for fatigue; no other or excessive sweating Aller/Imm Allergy/Immunologic: No lip swelling, tongue swelling, throat swelling, wheezing or itchy eyes Assessment AND Plan Problems 1. Diabetes mellitus type 2 in obese E11.69; E66.9 2. MARKY (obstructive sleep apnea) G47.33 3. Hypothyroidism (acquired) E03.9 Plan Reports using machine consistently. Reports no issues. Diabetes: Not checking BG. Reports took 10 units insulin one day as BG 180 range. Did not do a 2 hour recheck which he agrees he should have. He is using old scale which he is not sure exactly what it is. Has written down at home. Instructed taking insulin for sliding scale requires 2 hour recheck. As he does not know what his scale is currently and it is from pre surgery, he is instructed I would consider the need to reduce scale of 50%. Instructed to call with scale. Reports lasix increased over the last few weeks. Has follow up with cardiology and his surgeon scheduled. Labs due. Hypothyroidism: Recheck labs. Patient Instructions Check BG before you eat and 2 hours after. Call with insulin scale Labs as ordered. Keep all appointments. Orders Orders: Medications New: Plan Detail Additional Comments 1. Please schedule follow up in 1 month. 2. Lab work one week before appointment. 3. Discussed importance of regular exercise and recommend starting or continuing a regular exercise program for good health. 4. The patient was encouraged to lose weight for good health 5. The importance of monitoring blood sugar regularly was reviewed. 6. The importance of monitoring the HBA1c level regularly was reviewed. 7. The importance of prper foot care and regularly checking feet to prevent sores and loss of limbs was reviewed. 8. The importance of keeping BP at or below 130/80 to prevent stroke, heart attacks, kidney failure, blindness was reviewed. Spent approximately 30 minutes with patient with over 50% of time spent in discussion and counseling regarding medication adjustment, symptoms and treatment of hypoglycemia, diet adherence, and checking BG before driving. Coding Level of Care Code Off vis,est,level 4 Diagnoses Diabetes mellitus type 2 in obese E11.69; E66.9 MARKY (obstructive sleep apnea) G47.33 Hypothyroidism (acquired) E03.9 03/12/18 0813 <Electronically signed by Ashtyn ROBERTSON> Date Ashtyn ROBERTSON Cosigner Signature: Date (if applicable) CC: CHEST PA AND LATERAL Observed: 03/06/2018 Status: F Source: [place] 4:02 PM [facility] REPOSITORY [facility] Imaging Services [address] [place] [address] Chest PA and Lateral MR#: [id number] Acct: [id number] Name: BRADLEY KEYS Rep #: [id number] : 1960 M 57 From: Natali Rodriguez MD PCP: Keli Kennedy Status: REG CLI Study: Chest PA and Lateral Date of Exam: 03/06/18 Exam# [id number] Ordering Dr: Harmony Santo STUDY: X-RAY CHEST REASON FOR EXAM: Male, 57 years old. Shortness of breath. TECHNIQUE: PA and lateral views of the chest. COMPARISON: January 27, 2017 FINDINGS: There is no new focal consolidation. Normal size heart. Normal mediastinum and sb. Normal visualized pulmonary arteries. Normal visualized aortic arch and descending thoracic aorta. Normal visualized thoracic spine. Normal visualized ribs, clavicles, and shoulders. There are surgical clips projecting over the left lower neck. There is no demonstrated abnormality of the visualized soft tissue structures of the upper abdomen. RAD/Chest PA and Lateral IMPRESSION: No acute cardiopulmonary process. Electronically Signed: Natali Rodriguez MD at 19:58 EST Tel , Service support , CC: MARISOL Santo; Keli SWEENEY Medical Reception Specialist: Signed VL VENOUS DUPLEX US Observed: 03/05/2018 Status: F Source: [facility] LOWER EXT BILATERAL 10:45 AM SYSTEM REPOSITORY Patient Name: BRADLEY KEYS Ultrasound Exam Date/Time 03/05/2018 11:10:12 EST Exam VL Venous Duplex US Lower Ext Bilateral Ordering Physician MARISOL KESSLER, RAMON Loera Accession Number [id number] CPT4 Codes 73773 () Reason For Exam Localized edema Report [facility] --- Lower Extremity Venous Duplex Report Patient Name: Bradley Keys : 1960 Study Date: 03/05/2018 J (57yrs) Age: 57 Account: [id number] Gender: M Loc: BP: Ordering: Ramon Kessler Technologist: Ordering Physician: Ramon Kessler Machine Sprayer: Keren Avendano RVT Interpreting Physician: Narayan Bridges DO, [facility], [facility] --- Location: [address] --- INDICATIONS: Bilateral edema of lower extremity. --- CONCLUSIONS 1. These findings are negative for deep or superficial vein thrombosis in the bilateral lower extremities. 2. Below knee vessels not well seen due to edema. --- IMPRESSIONS: - Below knee vessels not well seen due to edema. - These findings are negative for deep or superficial vein thrombosis in the bilateral lower extremities. --- STUDY DATA: Complete lower extremity venous duplex evaluation. Birthdate: Patient birthdate: 1960. Age: Patient is 57 yr old. Sex: Gender: male. Ethnicity: Ethnicity: white. Doppler flow study including spectral analysis, color and george scale imaging. Patient status: Outpatient. Procedure: A vascular evaluation was performed. The images were obtained using a [employer] E9 vascular ultrasound machine. The study was technically limited due to body habitus, edema, and poor patient cooperation. --- VENOUS FLOW AND IMAGING: + +-------+ + --+ !Location !Overall!Flow properties !Comments ! + +-------+ + --+ !Right common femoral !Patent !Normal phasicity; ! --! ! ! !spontaneous; normal ! ! ! ! !augmentation; ! ! ! ! !compressible ! ! + +-------+ + --+ !Right saphenofemoral !Patent !Compressible ! --! !junction ! ! ! ! + +-------+ + --+ !Right profunda !Patent !Normal phasicity; ! --! !femoral ! !spontaneous; normal ! ! ! ! !augmentation ! ! + +-------+ + --+ !R femoral proximal !Patent !Compressible ! --! + +-------+ + --+ !R femoral mid !Patent !Normal phasicity; ! --! ! ! !spontaneous; normal ! ! ! ! !augmentation; ! ! ! ! !compressible ! ! + +-------+ + --+ !R femoral distal !Patent !Compressible ! --! + +-------+ + --+ !Right popliteal !Patent !Normal phasicity; ! --! ! ! !spontaneous; normal ! ! ! ! !augmentation; ! ! ! ! !compressible ! ! + +-------+ + --+ !Right gastrocnemius !Patent !Compressible !Difficult to visualize! ! ! ! !due to edema. ! + +-------+ + --+ !Right posterior !Patent !Compressible ! --! !tibial ! ! ! ! + +-------+ + --+ !Right peroneal !Patent !Compressible ! --! + +-------+ + --+ !Right soleal !-------! !Unable to visualize ! ! ! ! !due to edema. ! + +-------+ + --+ !Right greater !Patent !Compressible ! --! !saphenous ! ! ! ! + +-------+ + --+ !Left common femoral !Patent !Normal phasicity; ! --! ! ! !spontaneous; normal ! ! ! ! !augmentation; ! ! ! ! !compressible ! ! + +-------+ + --+ !Left saphenofemoral !Patent !Compressible ! --! !junction ! ! ! ! + +-------+ + --+ !Left profunda femoral!Patent !Normal phasicity; ! --! ! ! !spontaneous; normal ! ! ! ! !augmentation ! ! + +-------+ + --+ !L femoral proximal !Patent !Compressible ! --! + +-------+ + --+ !L femoral mid !Patent !Normal phasicity; ! --! ! ! !spontaneous; normal ! ! ! ! !augmentation; ! ! ! ! !compressible ! ! + +-------+ + --+ !L femoral distal !Patent ! !Patent with color. ! ! ! ! !Unable to compress due! ! ! ! !to patient position ! ! ! ! !and pain ! + +-------+ + --+ !Left popliteal !Patent !Normal phasicity; ! --! ! ! !spontaneous; normal ! ! ! ! !augmentation; ! ! ! ! !compressible ! ! + +-------+ + --+ !Left gastrocnemius !Patent !Compressible !Difficult to visualize! ! ! ! !due to edema. ! + +-------+ + --+ !Left posterior tibial!Patent !Compressible ! --! + +-------+ + --+ !Left peroneal !Patent ! !Patent with color. ! ! ! ! !Difficult to visualize! ! ! ! !due to edema. ! + +-------+ + --+ !Left soleal !-------! !Unable to visualize ! ! ! ! !due to edema. ! + +-------+ + --+ !Left greater !Patent !Compressible ! --! !saphenous ! ! ! ! + +-------+ + --+ Electronically signed by: Narayan Bridges DO [facility], [facility] [id number] Final Dictated: 03/05/2018 1:43 pm Dictating Physician: DO BRIDGES JOSEPH Signed Date and Time: 03/05/2018 1:43 pm Signed by: DO BRIDGES JOSEPH HEPATIC FUNCTION Collected: 03/02/2018 Status: F Source: [facility] 2:45 PM SYSTEM REPOSITORY TYPE CODE TESTS RESULT OUT OF RANGE REFERENCE UNITS LAB ALB3 3.5-5.0 g/dL Low Albumin, Serum 3.3 LAB TP3 6.3-8.2 g/dL Low Total Protein 5.9 LAB BILT3 0.2-1.3 mg/dL Normal Bilirubin,Total 0.7 LAB BILD3 0.0-0.3 mg/dL Normal Bilirubin,Direct 0.0 LAB ALKP3 38-126 U/L Alkaline Normal Phosphatase 91 LAB ALT3 13-69 U/L ALT (SGPT) Normal 44 LAB AST3 15-46 U/L AST (SGOT) Normal 19 Performed By: #### LFT3 #### [facility] [address] [place] [address] COMP METABOLIC PANEL Collected: 02/25/2018 Status: F Source: [facility] 3:33 PM SYSTEM REPOSITORY TYPE CODE TESTS RESULT OUT OF RANGE REFERENCE UNITS LAB NA3 135-145 mmol/L Normal Sodium 138 Result Comment: NOTE: New Sodium Reference Range effective 2018 @ 10:00 LAB K3 3.5-5.1 mmol/L Low Potassium 3.1 LAB CL3 98-107 mmol/L Normal Chloride 101 LAB CO23 22-30 mmol/L Normal Carbon Dioxide 27 LAB ANIN3 NA Anion Gap 9 LAB GLUC3 70-100 mg/dL High Glucose 222 LAB BUN3 7-20 mg/dL Normal Urea Nitrogen 18 LAB CRET3 0.52-1.25 mg/dL Normal Creatinine 1.08 LAB GF3BR >60 mL/min eGFR > 60.0 LAB GF3WR >60 mL/min eGFR OTHER > 60.0 Result Comment: Source- MDRD equation with creatinine calibration to IDMS(NKDEP) eGFR not recommended for drug dose adjustment LAB CA3 8.4-10.4 mg/dL Calcium Normal 8.4 LAB ALB3 3.5-5.0 g/dL Low Albumin, Serum 3.1 LAB TP3 6.3-8.2 g/dL Low Total Protein 6.0 LAB BILT3 0.2-1.3 mg/dL Normal Bilirubin,Total 0.6 LAB ALKP3 38-126 U/L Alkaline Normal Phosphatase 106 LAB ALT3 13-69 U/L ALT (SGPT) Normal 48 LAB AST3 15-46 U/L AST (SGOT) Normal 45 Performed By: #### CMP3, MG3, IRON3, B12, FOLT3, FERR3 #### [facility] [address] [place] [phone] MAGNESIUM Collected: 02/25/2018 Status: F Source: [facility] 3:33 PM SYSTEM REPOSITORY TYPE CODE TESTS RESULT OUT OF RANGE REFERENCE UNITS LAB MG3 1.6-2.3 mg/dL Normal Magnesium 2.1 Performed By: #### CMP3, MG3, IRON3, B12, FOLT3, FERR3 #### [facility] [address] [place] [phone] IRON, TOTAL Collected: 02/25/2018 Status: F Source: [facility] 3:33 PM SYSTEM REPOSITORY TYPE CODE TESTS RESULT OUT OF RANGE REFERENCE UNITS LAB IRON3 49-181 ug/dL Low Iron, 32 Total Performed By: #### CMP3, MG3, IRON3, B12, FOLT3, FERR3 #### [facility] [address] [place] [address] VITAMIN B12 Collected: 02/25/2018 Status: F Source: [facility] 3:33 PM SYSTEM REPOSITORY TYPE CODE TESTS RESULT OUT OF RANGE REFERENCE UNITS LAB B12 239-931 pg/mL Normal Vitamin B12 604 Performed By: #### CMP3, MG3, IRON3, B12, FOLT3, FERR3 #### [facility] [address] [place] [address] FOLATE Collected: 02/25/2018 Status: F Source: [facility] 3:33 PM SYSTEM REPOSITORY TYPE CODE TESTS RESULT OUT OF RANGE REFERENCE UNITS LAB 3FOLT 2.8-20.0 ng/mL Normal Folate 15.9 Performed By: #### CMP3, MG3, IRON3, B12, FOLT3, FERR3 #### [facility] [address] [address] [place] [address] FERRITIN Collected: 02/25/2018 Status: F Source: [facility] 3:33 PM SYSTEM REPOSITORY TYPE CODE TESTS RESULT OUT OF REFERENCE UNITS RANGE LAB 3FERR 18-464 ng/mL High Ferritin 715 Performed By: #### CMP3, MG3, IRON3, B12, FOLT3, FERR3 #### [facility] [address] [place] [address] ZINC, SERUM Collected: 02/25/2018 Status: F Source: [facility] 3:33 PM SYSTEM REPOSITORY TYPE CODE TESTS RESULT OUT OF REFERENCE UNITS RANGE LAB ZINCR 60-120 ug/dL Low Zinc, 43 Serum Result Comment: INTERPRETIVE INFORMATION: Zinc, Serum or Plasma Circulating zinc concentrations are dependent on albumin status and are depressed with malnutrition. Zinc may also be lowered with infection, inflammation, stress, oral contraceptives, and . Zinc may be elevated with zinc supplementation or fasting. Elevated zinc concentrations may interfere with copper absorption. Test developed and characteristics determined by [facility]. See Compliance Statement B: [employer]CS Performed by [facility], [address] [place] [address] www.[employer]), Tony Brambila MD - Lab. Director Performed By: #### ZINC2 #### The performing lab is in the report. GLUCOSE,BEDSIDE Collected: 02/25/2018 Status: F Source: [facility] 8:50 AM SYSTEM REPOSITORY TYPE CODE TESTS RESULT OUT OF RANGE REFERENCE UNITS LAB BGLU 70-100 mg/dL High 186 Glucose,Beds carolyn Result Comment: Test performed by glucose meter. Results may be 10%-15% lower than serum/plasma values. (CLIA ID [id number]) Performed By: #### BGLU #### [facility] [address] [place] [phone] HEMOGRAM W/ AUTODIFF Collected: 02/25/2018 Status: F Source: [facility] 5:12 AM SYSTEM REPOSITORY TYPE CODE TESTS RESULT OUT OF RANGE REFERENCE UNITS LAB IWBC 3.6-10.7 10*3/uL High WBC 12.1 LAB RBC 4.40-5.90 10*6/uL Low RBC 3.73 LAB HGB 13.0-18.0 g/dL Low Hemoglobin 10.8 LAB HCT 40.0-52.0 % Low Hematocrit 31.5 LAB MCV 80.0-98.0 fL MCV Normal 84.7 LAB MCH 26.0-34.0 pg MCH Normal 29.0 LAB MCHC 32.0-36.0 % MCHC Normal 34.2 LAB RDW 11.5-14.5 % High RDW 15.1 LAB PLT 140-440 10*3/uL Platelet Normal 198 LAB MPV 7.4-10.4 fL MPV Normal 8.9 Performed By: #### HEMDF, MG3, PHOS3, BMP3M, MDIFF #### [facility] [address] [place] [phone] MAGNESIUM Collected: 02/25/2018 Status: F Source: [facility] 5:12 AM SYSTEM REPOSITORY TYPE CODE TESTS RESULT OUT OF RANGE REFERENCE UNITS LAB MG3 1.6-2.3 mg/dL Normal Magnesium 2.1 Performed By: #### HEMDF, MG3, PHOS3, BMP3M, MDIFF #### [facility] [address] [place] [phone] PHOSPHORUS Collected: 02/25/2018 Status: F Source: [facility] 5:12 AM SYSTEM REPOSITORY TYPE CODE TESTS RESULT OUT OF REFERENCE UNITS RANGE LAB PHOS3 2.5-4.5 mg/dL Low Phosphorus 2.3 Performed By: #### HEMSARAH, MG3, PHOS3, BMP3M, IFF #### [facility] [address] [address] BASIC METABOLIC PANEL Collected: 02/25/2018 Status: F Source: [facility] 5:12 AM SYSTEM REPOSITORY TYPE CODE TESTS RESULT OUT OF RANGE REFERENCE UNITS LAB NA3 135-145 mmol/L Normal Sodium 138 Result Comment: NOTE: New Sodium Reference Range effective 2018 @ 10:00 LAB K3 3.5-5.1 mmol/L Low Potassium 3.1 LAB CL3 98-107 mmol/L Normal Chloride 104 LAB CO23 22-30 mmol/L Normal Carbon Dioxide 30 LAB ANIN3 NA Anion Gap 4 LAB GLUC3 70-100 mg/dL High Glucose 176 LAB BUN3 7-20 mg/dL Normal Urea Nitrogen 18 LAB CRET3 0.52-1.25 mg/dL Normal Creatinine 1.14 LAB GF3BR >60 mL/min eGFR > 60.0 LAB GF3WR >60 mL/min eGFR OTHER > 60.0 Result Comment: Source- MDRD equation with creatinine calibration to IDMS(NKDEP) eGFR not recommended for drug dose adjustment LAB CA3 8.4-10.4 mg/dL Normal Calcium 8.4 Performed By: #### RINKU, MG3, PHOS3, BMP3M, MDIFF #### [facility] [address] [address] MANUAL DIFF Collected: 02/25/2018 Status: F Source: [facility] 5:12 AM SYSTEM REPOSITORY TYPE CODE TESTS RESULT OUT OF RANGE REFERENCE UNITS LAB NEUTR 40-80 % Normal Seg Neutrophils 70 LAB BANDS 0-3 % High Bands 7 LAB LYMPH 20-40 % Low Lymphocytes 12 LAB MONOC 2-10 % Normal Monocytes 6 LAB EO 1-6 % Normal Eosinophils 3 LAB BASO 0-2 % Normal Basophils 1 LAB META <1 % Metamyelocytes Abnormal 1 LAB ANCM 2.2-8.2 10*3/uL High Abs Neutrophile Cnt 9.3 LAB ALCM 1.1-4.5 10*3/uL Normal Abs Lymph Cnt 1.5 LAB AMCM 0.2-1.1 10*3/uL Normal Abs Monocyte Cnt 0.7 LAB AECM 0.0-0.5 10*3/uL Normal Abs Eosin Cnt 0.4 LAB ABCM 0.0-0.2 10*3/uL Normal Abs Baso Cnt 0.1 LAB RBMOR NA RBC Morphology Normal LAB LIMIT NA Cells counted 150 Result Comment: CORRECTED RESULT...Previous above value was 100, verified on 02/25/18 at 06:29 by V/AUT . Performed By: #### HEMDF, MG3, PHOS3, BMP3M, MDIFF #### [facility] [address] [place] [address] GLUCOSE,BEDSIDE Collected: 02/24/2018 Status: F Source: [facility] 9:36 PM SYSTEM REPOSITORY TYPE CODE TESTS RESULT OUT OF RANGE REFERENCE UNITS LAB BGLU 70-100 mg/dL High 194 Glucose,Beds carolyn Result Comment: Test performed by glucose meter. Results may be 10%-15% lower than serum/plasma values. (CLIA ID [id number]) Performed By: #### BGLU #### [facility] [address] [place] [phone] GLUCOSE,BEDSIDE Collected: 02/24/2018 Status: F Source: [facility] 6:38 PM SYSTEM REPOSITORY TYPE CODE TESTS RESULT OUT OF RANGE REFERENCE UNITS LAB BGLU 70-100 mg/dL High 209 Glucose,Beds carolyn Result Comment: Test performed by glucose meter. Results may be 10%-15% lower than serum/plasma values. (CLIA ID [id number]) Performed By: #### BGLU #### [facility] [address] [place] [address] GLUCOSE,BEDSIDE Collected: 02/24/2018 Status: F Source: [facility] 12:16 PM SYSTEM REPOSITORY TYPE CODE TESTS RESULT OUT OF RANGE REFERENCE UNITS LAB BGLU 70-100 mg/dL High 228 Glucose,Beds carolyn Result Comment: Test performed by glucose meter. Results may be 10%-15% lower than serum/plasma values. (CLIA ID [id number]) Performed By: #### BGLU #### [facility] [address] [place] [address] GLUCOSE,BEDSIDE Collected: 02/24/2018 Status: F Source: [facility] 8:49 AM SYSTEM REPOSITORY TYPE CODE TESTS RESULT OUT OF RANGE REFERENCE UNITS LAB BGLU 70-100 mg/dL High 219 Glucose,Beds carolyn Result Comment: Test performed by glucose meter. Results may be 10%-15% lower than serum/plasma values. (CLIA ID [id number]) Performed By: #### BGLU #### [facility] [address] [place] [phone] DISCHARGE SUMMARY Observed: 02/24/2018 Status: F Source: [facility] 8:31 AM SYSTEM REPOSITORY Discharge Summary Bradley Keys : 1960 ADMIT DATE: 02/22/2018 DISCHARGE DATE: 02/25/2018 PRIMARY CARE PHYSICIAN: KELI BRAGG VISIT STATUS: Admission CODE STATUS: Full Code DISCHARGE DIAGNOSES: Principal Problem: Cholecystitis Active Problems: Essential hypertension MARKY treated with BiPAP Type 2 diabetes mellitus with complication (HCC) Morbid obesity (HCC) Dehydration Acute kidney injury (HCC) Resolved Problems: Epigastric abdominal pain Cyclical vomiting with nausea Depression, NOS HOSPITAL COURSE: Patient is a 57 yo male that presented to [facility] with abdominal pain. Patient was found to have acute cholecystitis. He was brought to the operating room for a laparoscopic cholecystectomy. Due to his anatomy they were unable to remain laparoscopic and converted to an open procedure. A LINSEY was left in place. Patient tolerated the procedure well and was transferred to the surgical floor. Patient did have an ELIF upon admission, which was improving with hydration. Patient progressed without complication. His LINSEY was removed prior to discharge. He was denied inpatient rehab and was ordered home PT. His potassium remained low for several days so his potassium was increased to BID on discharge. He was discharged home on POD 3 in stable condition. SIGNIFICANT DIAGNOSTIC STUDIES: RUQ US: acute cholecystitis CONSULTANTS: none RECOMMENDED NEXT STEPS: Inpatient rehab DISCHARGE MEDICATIONS: Bradley Keys Home Medication Instructions EMILEE:[id number] Printed on:02/25/18 1400 Medication Information alogliptin (NESINA) 25 MG TABS tablet Take 25 mg by mouth daily ASPIRIN ADULT LOW STRENGTH 81 MG EC tablet TAKE 1 TABLET EVERY DAY- Preventative BiPAP Machine MISC by Does not apply route calcium carbonate (TUMS) 500 MG chewable tablet Take 1 tablet by mouth three times daily citalopram (CELEXA) 20 MG tablet TAKE 1 TABLET EVERY DAY- Depression Cyanocobalamin (VITAMIN B-12) [address] 1,000 mcg under the tongue once a week Docusate Sodium (COLACE PO) Take 4 tablets by mouth daily [facility] UNITRACYE PENTIPS 31G X 8 MM MISC DIRECTED FOUR TIMES DAILY with insulin dose FREESTYLE LITE strip use to test up to 4 times daily furosemide (LASIX) 40 MG tablet TAKE 1 TABLET BY MOUTH DAILY- Water pill HYDROcodone-acetaminophen (NORCO) 5-325 MG per tablet Take 1-2 tablets by mouth every 6 hours as needed for Pain for up to 7 days. Intended supply: 7 days. Take lowest dose possible to manage pain. insulin aspart protamine-insulin aspart (NOVOLOG 70/30) (70- 30) 100 UNIT/ML injection Inject 15 Units into the skin 2 times daily isosorbide mononitrate (IMDUR) 30 MG extended release tablet Take 30 mg by mouth daily levothyroxine (SYNTHROID) 100 MCG tablet Take 100 mcg by mouth nightly losartan (COZAAR) 25 MG tablet Take 50 mg by mouth daily metFORMIN (GLUCOPHAGE-XR) 500 MG extended release tablet TAKE 1 TABLET DAILY with the first meal of the day- Diabetes metoprolol tartrate (LOPRESSOR) 25 MG tablet Take 25 mg by mouth 2 times daily Multiple Vitamins-Minerals (THERAPEUTIC MULTIVITAMIN-MINERALS) tablet Take 1 tablet by mouth daily Nasal Dilators (PROVENT SLEEP APNEA THERAPY) [facility] BIPAP 02/21, heated humidifier, mask, supplies omeprazole (PRILOSEC) 20 MG delayed release capsule Take 1 capsule by mouth daily oxyCODONE-acetaminophen (PERCOCET) 5-325 MG per tablet Take 1 tablet by mouth every 6 hours as needed for Pain for up to 3 days.. pediatric multivitamin-iron (POLY--SLIM WITH IRON) 15 MG chewable tablet Take 2 tablets by mouth daily potassium chloride (KLOR-CON M) 20 MEQ extended release tablet Take 1 tablet by mouth 2 times daily promethazine (PHENERGAN) 25 MG tablet Take 1 tablet by mouth every 6 hours as needed for Nausea rosuvastatin (CRESTOR) 40 MG tablet TAKE 1 TABLET DAILY sodium chloride 0.9 % infusion Infuse 2,000 mLs intravenously continuous 1000 ml over 1 hour followed by 1000 ml over 2 hours sucralfate (CARAFATE) 1 GM/10ML suspension Take 10 mLs by mouth 4 times daily TRESIBA FLEXTOUCH 100 UNIT/ML SOPN inject 30 UNITS EVERY IN THE MORNING and 30 UNITS EVERY IN THE EVENING; currently taking 30 units morning and night because sugars have been low; normally takes 52 units morning and night ursodiol (ACTIGALL) 300 MG capsule Take 1 capsule by mouth 2 times daily Vitamin D, Ergocalciferol, 2000 units CAPS Take 2 capsules by mouth daily DIET: Dietary Nutrition Supplements: Low Calorie High Protein Supplement DIET BARIATRIC SOFT; Carb Control: 5 carb choices (75 gms)/meal ACTIVITY: Do not lift more than 10 lbs for 4- 6 weeks. Ambulate 5 minutes every hour you are awake DISPOSITION: Home with PT Follow up with Keli Bragg [address] [place] [address]. [facility] [address] En Cavazos MD [address] [place] [address] [address] [phone] Schedule an appointment as soon as possible for a visit in 2 weeks For wound re-check, Follow-up after surgery. SIGNED: Mandi Levine DO 02/25/2018, 2:00 PM HEMOGRAM W/ AUTODIFF Collected: 02/24/2018 Status: F Source: [facility] 3:33 AM SYSTEM REPOSITORY TYPE CODE TESTS RESULT OUT OF REFERENCE UNITS RANGE LAB IWBC 3.6-10.7 10*3/uL WBC High 15.6 LAB RBC 4.40-5.90 10*6/uL Low RBC 3.68 LAB HGB 13.0-18.0 g/dL Low Hemoglobin 10.7 LAB HCT 40.0-52.0 % Low Hematocrit 31.2 LAB MCV 80.0-98.0 fL MCV Normal 84.8 LAB MCH 26.0-34.0 pg MCH Normal 29.1 LAB MCHC 32.0-36.0 % MCHC Normal 34.3 LAB RDW 11.5-14.5 % RDW High 15.2 LAB PLT 140-440 10*3/uL Platelet Normal 199 LAB MPV 7.4-10.4 fL MPV Normal 9.2 LAB GRAN% 40.0-80.0 % Granulocytes High 80.5 LAB LYMP% 20.0-40.0 % Low Lymphocytes 8.9 LAB MONO% 2.0-10.0 % Monocytes Normal 7.1 LAB EOS% 1.0-6.0 % Eosinophils Normal 3.3 LAB BAS% 0.0-2.0 % Basophils Normal 0.2 LAB ANC 1.8-7.0 10*3/uL Abs High Neutrophile Cnt 12.6 LAB ALC 1.0-4.3 10*3/uL Abs Lymph Cnt Normal 1.4 LAB AMC 0.0-0.8 10*3/uL Abs Monocyte High Cnt 1.1 LAB AEC 0.0-0.5 10*3/uL Abs Eosin Cnt Normal 0.5 LAB ABC 0.0-0.2 10*3/uL Abs Baso Cnt Normal 0.0 Performed By: #### HEMDF, MG3, PHOS3, CMP3 #### [facility] [address] [place] [address] MAGNESIUM Collected: 02/24/2018 Status: F Source: [facility] 3:33 AM SYSTEM REPOSITORY TYPE CODE TESTS RESULT OUT OF RANGE REFERENCE UNITS LAB MG3 1.6-2.3 mg/dL Normal Magnesium 2.0 Performed By: #### HEMDF, MG3, PHOS3, CMP3 #### [facility] [address] [place] [phone] PHOSPHORUS Collected: 02/24/2018 Status: F Source: [facility] 3:33 AM SYSTEM REPOSITORY TYPE CODE TESTS RESULT OUT OF REFERENCE UNITS RANGE LAB PHOS3 2.5-4.5 mg/dL Low Phosphorus 2.2 Performed By: #### HEMDF, MG3, PHOS3, CMP3 #### [facility] [address] [place] [address] COMP METABOLIC PANEL Collected: 02/24/2018 Status: F Source: [facility] 3:33 AM SYSTEM REPOSITORY TYPE CODE TESTS RESULT OUT OF RANGE REFERENCE UNITS LAB NA3 135-145 mmol/L Normal Sodium 140 Result Comment: NOTE: New Sodium Reference Range effective 2018 @ 10:00 LAB K3 3.5-5.1 mmol/L Low Potassium 3.4 LAB CL3 98-107 mmol/L Normal Chloride 104 LAB CO23 22-30 mmol/L Normal Carbon Dioxide 27 LAB ANIN3 NA Anion Gap 9 LAB GLUC3 70-100 mg/dL High Glucose 210 LAB BUN3 7-20 mg/dL High Urea Nitrogen 22 LAB CRET3 0.52-1.25 mg/dL High Creatinine 1.35 LAB GF3BR >60 mL/min eGFR > 60.0 LAB GF3WR >60 mL/min eGFR OTHER 54.4 Result Comment: Source- MDRD equation with creatinine calibration to IDMS(NKDEP) eGFR not recommended for drug dose adjustment LAB CA3 8.4-10.4 mg/dL Low Calcium 8.3 LAB ALB3 3.5-5.0 g/dL Low Albumin, Serum 3.0 LAB TP3 6.3-8.2 g/dL Low Total Protein 5.6 LAB BILT3 0.2-1.3 mg/dL Normal Bilirubin,Total 0.5 LAB ALKP3 38-126 U/L Alkaline Normal Phosphatase 126 LAB ALT3 13-69 U/L ALT (SGPT) Normal 62 LAB AST3 15-46 U/L High AST (SGOT) 55 Performed By: #### HEMDF, MG3, PHOS3, CMP3 #### [facility] [address] [place] [phone] GLUCOSE,BEDSIDE Collected: 02/23/2018 Status: F Source: [facility] 8:51 PM SYSTEM REPOSITORY TYPE CODE TESTS RESULT OUT OF RANGE REFERENCE UNITS LAB BGLU 70-100 mg/dL High 245 Glucose,Beds carolyn Result Comment: Test performed by glucose meter. Results may be 10%-15% lower than serum/plasma values. (CLIA ID [id number]) Performed By: #### BGLU #### [facility] [address] [place] [phone] BASIC METABOLIC PANEL Collected: 02/23/2018 Status: F Source: [facility] 7:22 PM SYSTEM REPOSITORY TYPE CODE TESTS RESULT OUT OF RANGE REFERENCE UNITS LAB NA3 135-145 mmol/L Normal Sodium 139 Result Comment: NOTE: New Sodium Reference Range effective 2018 @ 10:00 LAB K3 3.5-5.1 mmol/L Low Potassium 3.4 LAB CL3 98-107 mmol/L Normal Chloride 104 LAB CO23 22-30 mmol/L Normal Carbon Dioxide 30 LAB ANIN3 NA Anion Gap 5 LAB GLUC3 70-100 mg/dL High Glucose 246 LAB BUN3 7-20 mg/dL High Urea Nitrogen 23 LAB CRET3 0.52-1.25 mg/dL High Creatinine 1.34 LAB GF3BR >60 mL/min eGFR > 60.0 LAB GF3WR >60 mL/min eGFR OTHER 54.9 Result Comment: Source- MDRD equation with creatinine calibration to IDMS(NKDEP) eGFR not recommended for drug dose adjustment LAB CA3 8.4-10.4 mg/dL Low Calcium 8.2 Performed By: #### BMP3 #### [facility] [address] [place] [address] GLUCOSE,BEDSIDE Collected: 02/23/2018 Status: F Source: [facility] 6:56 PM SYSTEM REPOSITORY TYPE CODE TESTS RESULT OUT OF RANGE REFERENCE UNITS LAB BGLU 70-100 mg/dL High 254 Glucose,Beds carolny Result Comment: Test performed by glucose meter. Results may be 10%-15% lower than serum/plasma values. (CLIA ID [id number]) Performed By: #### BGLU #### [facility] [facility] [place] [address] GLUCOSE,BEDSIDE Collected: 02/23/2018 Status: F Source: [facility] 3:13 PM SYSTEM REPOSITORY TYPE CODE TESTS RESULT OUT OF RANGE REFERENCE UNITS LAB BGLU 70-100 mg/dL High 260 Glucose,Beds carolyn Result Comment: Test performed by glucose meter. Results may be 10%-15% lower than serum/plasma values. (CLIA ID [id number]) Performed By: #### BGLU #### [facility] [address] [place] [phone] GLUCOSE,BEDSIDE Collected: 02/23/2018 Status: F Source: [facility] 9:57 AM SYSTEM REPOSITORY TYPE CODE TESTS RESULT OUT OF RANGE REFERENCE UNITS LAB BGLU 70-100 mg/dL High 238 Glucose,Beds carolyn Result Comment: Test performed by glucose meter. Results may be 10%-15% lower than serum/plasma values. (CLIA ID [id number]) Performed By: #### BGLU #### [facility] [address] [place] [phone] CREATININE, UR RANDOM Collected: 02/23/2018 Status: F Source: [facility] 9:29 AM SYSTEM REPOSITORY TYPE CODE TESTS RESULT OUT OF REFERENCE UNITS RANGE LAB CRTRU No Range mg/dL Creatinine, 149.0 Ur Random Performed By: #### CRTUR, NAURR #### [facility] [address] [place], [place] SODIUM, UR RANDOM Collected: 02/23/2018 Status: F Source: [facility] 9:29 AM SYSTEM REPOSITORY TYPE CODE TESTS RESULT OUT OF REFERENCE UNITS RANGE LAB URNA No Range mmol/L Sodium, Ur 11 Random Performed By: #### CRTUR, NAURR #### [facility] [address] [place], [place] GLUCOSE,BEDSIDE Collected: 02/23/2018 Status: F Source: [facility] 7:38 AM SYSTEM REPOSITORY TYPE CODE TESTS RESULT OUT OF RANGE REFERENCE UNITS LAB BGLU 70-100 mg/dL High 260 Glucose,Beds carolyn Result Comment: Test performed by glucose meter. Results may be 10%-15% lower than serum/plasma values. (CLIA ID [id number]) Performed By: #### BGLU #### [facility] [address] [place] [address] HEMOGRAM W/ AUTODIFF Collected: 02/23/2018 Status: F Source: [facility] 4:45 AM SYSTEM REPOSITORY TYPE CODE TESTS RESULT OUT OF REFERENCE UNITS RANGE LAB IWBC 3.6-10.7 10*3/uL WBC High 17.4 LAB RBC 4.40-5.90 10*6/uL Low RBC 3.75 LAB HGB 13.0-18.0 g/dL Low Hemoglobin 10.9 LAB HCT 40.0-52.0 % Low Hematocrit 31.6 LAB MCV 80.0-98.0 fL MCV Normal 84.3 LAB MCH 26.0-34.0 pg MCH Normal 28.9 LAB MCHC 32.0-36.0 % MCHC Normal 34.3 LAB RDW 11.5-14.5 % RDW High 15.0 LAB PLT 140-440 10*3/uL Platelet Normal 192 LAB MPV 7.4-10.4 fL MPV Normal 9.2 LAB GRAN% 40.0-80.0 % Granulocytes High 87.9 LAB LYMP% 20.0-40.0 % Low Lymphocytes 5.2 LAB MONO% 2.0-10.0 % Monocytes Normal 6.7 LAB EOS% 1.0-6.0 % Low Eosinophils 0.1 LAB BAS% 0.0-2.0 % Basophils Normal 0.1 LAB ANC 1.8-7.0 10*3/uL Abs High Neutrophile Cnt 15.3 LAB ALC 1.0-4.3 10*3/uL Low Abs Lymph Cnt 0.9 LAB AMC 0.0-0.8 10*3/uL Abs Monocyte High Cnt 1.2 LAB AEC 0.0-0.5 10*3/uL Abs Eosin Cnt Normal 0.0 LAB ABC 0.0-0.2 10*3/uL Abs Baso Cnt Normal 0.0 Performed By: #### HEMDF, MG3, PHOS3, BMP3M, LFT3 #### [facility] [address] [place] [address] MAGNESIUM Collected: 02/23/2018 Status: F Source: [facility] 4:45 AM SYSTEM REPOSITORY TYPE CODE TESTS RESULT OUT OF RANGE REFERENCE UNITS LAB MG3 1.6-2.3 mg/dL Normal Magnesium 1.8 Performed By: #### HEMDF, MG3, PHOS3, BMP3M, LFT3 #### [facility] [address] [place] [phone] PHOSPHORUS Collected: 02/23/2018 Status: F Source: [facility] 4:45 AM SYSTEM REPOSITORY TYPE CODE TESTS RESULT OUT OF RANGE REFERENCE UNITS LAB PHOS3 2.5-4.5 mg/dL Normal Phosphorus 2.8 Performed By: #### HEMDF, MG3, PHOS3, BMP3M, LFT3 #### [facility] [address] [place] [address] BASIC METABOLIC PANEL Collected: 02/23/2018 Status: F Source: [facility] 4:45 AM SYSTEM REPOSITORY TYPE CODE TESTS RESULT OUT OF RANGE REFERENCE UNITS LAB NA3 137-145 mmol/L Sodium Normal 140 LAB K3 3.5-5.1 mmol/L Low Potassium 3.1 LAB CL3 98-107 mmol/L Chloride Normal 104 LAB CO23 22-30 mmol/L Carbon Normal Dioxide 29 LAB ANIN3 NA Anion Gap 7 LAB GLUC3 70-100 mg/dL High Glucose 257 LAB BUN3 7-20 mg/dL High Urea Nitrogen 21 LAB CRET3 0.52-1.25 mg/dL High Creatinine 1.38 LAB GF3BR >60 mL/min eGFR > 60.0 LAB GF3WR >60 mL/min eGFR OTHER 53.1 Result Comment: Source- MDRD equation with creatinine calibration to IDMS(NKDEP) eGFR not recommended for drug dose adjustment LAB CA3 8.4-10.4 mg/dL Low Calcium 8.0 Performed By: #### HEMDF, MG3, PHOS3, BMP3M, LFT3 #### [facility] [address] [place] [phone] HEPATIC FUNCTION Collected: 02/23/2018 Status: F Source: [facility] 4:45 AM SYSTEM REPOSITORY TYPE CODE TESTS RESULT OUT OF RANGE REFERENCE UNITS LAB ALB3 3.5-5.0 g/dL Low Albumin, Serum 2.8 LAB TP3 6.3-8.2 g/dL Low Total Protein 5.5 LAB BILT3 0.2-1.3 mg/dL Normal Bilirubin,Total 0.5 LAB BILD3 0.0-0.3 mg/dL Normal Bilirubin,Direct 0.0 LAB ALKP3 38-126 U/L High Alkaline Phosphatase 128 LAB ALT3 13-69 U/L ALT (SGPT) Normal 51 LAB AST3 15-46 U/L High AST (SGOT) 55 Performed By: #### HEMDF, MG3, PHOS3, BMP3M, LFT3 #### [facility] [address] [place] [phone] BASIC METABOLIC PANEL Collected: 02/22/2018 Status: F Source: [facility] 11:09 PM SYSTEM REPOSITORY TYPE CODE TESTS RESULT OUT OF RANGE REFERENCE UNITS LAB NA3 137-145 mmol/L Sodium Normal 139 LAB K3 3.5-5.1 mmol/L Low Potassium 3.0 LAB CL3 98-107 mmol/L Chloride Normal 105 LAB CO23 22-30 mmol/L Carbon Normal Dioxide 27 LAB ANIN3 NA Anion Gap 7 LAB GLUC3 70-100 mg/dL High Glucose 269 LAB BUN3 7-20 mg/dL Urea Normal Nitrogen 20 LAB CRET3 0.52-1.25 mg/dL High Creatinine 1.42 LAB GF3BR >60 mL/min eGFR > 60.0 LAB GF3WR >60 mL/min eGFR OTHER 51.4 Result Comment: Source- MDRD equation with creatinine calibration to IDMS(NKDEP) eGFR not recommended for drug dose adjustment LAB CA3 8.4-10.4 mg/dL Low Calcium 7.8 Performed By: #### BMP3 #### [employer] [employer] [facility] [address] [place], [place] GLUCOSE,BEDSIDE Collected: 02/22/2018 Status: F Source: [facility] 10:08 PM SYSTEM REPOSITORY TYPE CODE TESTS RESULT OUT OF RANGE REFERENCE UNITS LAB BGLU 70-100 mg/dL High 250 Glucose,Beds carolyn Result Comment: Test performed by glucose meter. Results may be 10%-15% lower than serum/plasma values. (CLIA ID [id number]) Performed By: #### BGLU #### [employer] [facility] [address] [place], [place] GLUCOSE,BEDSIDE Collected: 02/22/2018 Status: F Source: [facility] 7:37 PM SYSTEM REPOSITORY TYPE CODE TESTS RESULT OUT OF RANGE REFERENCE UNITS LAB BGLU 70-100 mg/dL High 295 Glucose,Beds carolyn Result Comment: Test performed by glucose meter. Results may be 10%-15% lower than serum/plasma values. (CLIA ID [id number]) Performed By: #### BGLU #### [facility] [address] [place], [place] OP NOTE Observed: 02/22/2018 Status: F Source: [facility] 7:17 PM SYSTEM REPOSITORY EN CAVAZOS MD , [facility], [facility] ADVANCED LAPAROSCOPY, BARIATRIC AND ROBOTIC SURGERY [facility] OPERATIVE REPORT PATIENT: Bradley Keys Date of : 1960 Service Date: 02/22/18 PROCEDURE: 1. OPEN CHOLECYSTECTOMY SURGEON: En Cavazos MD F[employer]ERGLASS CONTAINER WINDING OPERATOR: MD Davion Taylor MD PRE-OPERATIVE DIAGNOSES: 1. Right upper quadrant pain 2. Acute cholecystitis POST-OPERATIVE DIAGNOSES: Acute suppurative cholecystitis ANESTHESIA: General endotracheal FLUIDS: Crystalloid ESTIMATED BLOOD LOSS: Minimal URINE OUTPUT: Not recorded PREOPERATIVE MEDICATIONS: Pre-operative IV antibiotics: 2 gm cefazolin INDICATIONS FOR PROCEDURE: The patient is a 57 y.o. male with symptomatic gallbladder disease approximately one month after LRYGB. The patient was evaluated and laparoscopic cholecystectomy was recommended. The possibility of open cholecystectomy was also discussed. Due to the severity of the disease, the operation required conversion to an open approach. The risks, benefits and options of the procedure and additional possible interventions were also reviewed and all questions were answered to the patient's satisfaction. DESCRIPTION OF PROCEDURE: The patient was transported to the operating room and identified by name and number. An operating room team time out was performed confirming the identity of the patient and the planned procedure. The patient was placed on the operating room table in the supine position and general endotracheal anesthesia was administered by members of the anesthesia team. Following placement of sequential compression devices, the patients extremities were positioned and protected. The abdomen was prepped and draped in standard surgical fashion. The abdominal cavity was accessed in the left upper quadrant at Reid's point using a 5-mm optical trocar. Pneumoperitoneum was established and a brief exploration of the abdominal cavity was performed. Additional trocars were carefully placed under direct visualization. Two 5-mm trocars were placed in the right upper quadrant and one 10-mm trocar near the epigastrium. Graspers were introduced and we proceed with decompression of the gallbladder using a needle aspiration device and retraction of the gallbladder. Extensive inflammation and adhesions as well as the extremely obese body habitus and size of the liver made the laparoscopic approach very difficult and it was deemed much safer to convert to an open procedure. Trocars were carefully removed and a Orxie incision was made along the right subcostal margin. The subcutaneous tissue was carefully divided and the muscle and fascia were opened along the length of the incision. A Buchwalter retractor was placed for retraction and the gallbladder was grasped and carefully taken town in dome-down approach. The artery was divided using the ultrasonic skip and the cystic duct was clipped twice on the patient side and divided. The gallbladder was passed off the field for pathology studies. Thorough irrigation and suction was undertaken and hemostasis was insured. A 10 occitan LINSEY drain was left in the gallbladder fossa and brought out through one of the laparoscopic incisions. Following this the posterior rectus sheath and internal oblique lays were closed with a running #1 PDS suture stared at each end and tied together in the middle. The external oblique fascia and anterior rectus sheath were closed using interrupted 0 Vycril [id number] sutures. The skin incisions were closed with skin mary and covered by sterile dressings. The needle, sponge and instrument counts were correct. The patient tolerated the procedure and the anesthesia well without any major complications. The patients was transported to the post-anesthesia care unit in stable condition. I was present for the entire duration of the procedure. OSE,BEDSIDE Collected: 02/22/2018 Status: F Source: [facility] 5:08 PM SYSTEM REPOSITORY TYPE CODE TESTS RESULT OUT OF RANGE REFERENCE UNITS LAB BGLU 70-100 mg/dL High 274 Glucose,Beds carolyn Result Comment: Test performed by glucose meter. Results may be 10%-15% lower than serum/plasma values. (CLIA ID [id number]) Performed By: #### BGLU #### [facility] [address] [place] [phone] HEMOGRAM Collected: 02/22/2018 Status: F Source: [facility] 1:39 PM SYSTEM REPOSITORY TYPE CODE TESTS RESULT OUT OF RANGE REFERENCE UNITS LAB IWBC 3.6-10.7 10*3/uL High WBC 15.9 LAB RBC 4.40-5.90 10*6/uL Low RBC 4.17 LAB HGB 13.0-18.0 g/dL Low Hemoglobin 11.9 LAB HCT 40.0-52.0 % Low Hematocrit 35.1 LAB MCV 80.0-98.0 fL MCV Normal 84.3 LAB MCH 26.0-34.0 pg MCH Normal 28.6 LAB MCHC 32.0-36.0 % MCHC Normal 34.0 LAB RDW 11.5-14.5 % High RDW 15.2 LAB PLT 140-440 10*3/uL Platelet Normal 184 LAB MPV 7.4-10.4 fL MPV Normal 8.8 Performed By: #### HEMOG, CMP3 #### [employer] [address] [phone] COMP METABOLIC PANEL Collected: 02/22/2018 Status: F Source: [facility] 1:39 PM SYSTEM REPOSITORY TYPE CODE TESTS RESULT OUT OF RANGE REFERENCE UNITS LAB NA3 137-145 mmol/L Sodium Normal 140 LAB K3 3.5-5.1 mmol/L Low Potassium 2.7 LAB CL3 98-107 mmol/L Chloride Normal 103 LAB CO23 22-30 mmol/L Carbon Normal Dioxide 25 LAB ANIN3 NA Anion Gap 12 LAB GLUC3 70-100 mg/dL High Glucose 293 LAB BUN3 7-20 mg/dL Urea Normal Nitrogen 19 LAB CRET3 0.52-1.25 mg/dL High Creatinine 1.52 LAB GF3BR >60 mL/min eGFR 57.5 LAB GF3WR >60 mL/min eGFR OTHER 47.5 Result Comment: Source- MDRD equation with creatinine calibration to IDMS(NKDEP) eGFR not recommended for drug dose adjustment LAB CA3 8.4-10.4 mg/dL Low Calcium 8.0 LAB ALB3 3.5-5.0 g/dL Low Albumin, Serum 3.2 LAB TP3 6.3-8.2 g/dL Low Total Protein 5.8 LAB BILT3 0.2-1.3 mg/dL Normal Bilirubin,Total 0.9 LAB ALKP3 38-126 U/L Alkaline Normal Phosphatase 118 LAB ALT3 13-69 U/L ALT (SGPT) Normal 57 LAB AST3 15-46 U/L High AST (SGOT) 75 Performed By: #### HEMOG, CMP3 #### [employer] [address] [phone] GLUCOSE,BEDSIDE Collected: 02/22/2018 Status: F Source: [facility] 12:45 PM SYSTEM REPOSITORY TYPE CODE TESTS RESULT OUT OF RANGE REFERENCE UNITS LAB BGLU 70-100 mg/dL High 277 Glucose,Beds carolyn Result Comment: Test performed by glucose meter. Results may be 10%-15% lower than serum/plasma values. (CLIA ID [id number]) Performed By: #### BGLU #### [employer] [address] [phone] Observed: 02/22/2018 Status: F Source: [facility] SURGICAL PATHOLOGY 10:59 AM SYSTEM REPOSITORY [id number] [facility] PATHOLOGY AND LABORATORY MEDICINE [address] [place] [address] FINAL SURGICAL PATHOLOGY REPORT NAME: BRADLEY KEYS N [id number] : 1960 57 Y Berenice [place] NO.: [id number] LOCATION: [address] [place] [address] A PROCEDURE 02/22/2018 DATE: SURGEON: EN CAVAZOS M.D. RECEIVED 02/23/2018 DATE: ATTENDING: EN CAVAZOS M.D. REPORT DATE: 02/26/2018 COPIES TO: DIAGNOSIS: GALLBLADDER, CHOLECYSTECTOMY - ACUTE NECROTIZING CHOLECYSTITIS. FOCAL SUBMUCOSAL ORGANIZING VASCULAR THROMBOSIS. AHD/AHD <Sign Out Dr. Mayo> JADA ARCHER M.D. CLINICAL INFORMATION: Not provided SPECIMEN: GALLBLADDER GROSS DESCRIPTION: Gallbladder Received in formalin is a previously-opened and fragmented gallbladder that upon reconstruction measures approximately 8.0 x 5.0 x 3.0 cm. The serosal surface is dull, george-jacinto and hyperemic. Upon further opening the gallbladder, the mucosa is dark-green brown and focally ulcerated. The wall of the gallbladder averages 0.4 cm in thickness and contains no nodules. No calculi are identified within the cystic duct, gallbladder, or within the container. [place] sections are submitted in a single cassette. (bits ss, 1) JCK/CHRIS Disclaimer: The following statement applies to all immunohistochemistry, in situ hybridization, molecular studies, and immunofluorescence testing. The use of one or more reagents in the above tests is regulated as an analyte specific reagent (ASR). These tests were developed and their performance characteristics determined by the clinical laboratories of [facility]. They have not been cleared by the US Food and Drug Administration (FDA). The FDA has determined that such clearance or approval is not necessary. All the above immunostains were performed on paraffin embedded tissue. Appropriate positive and negative controls (where applicable) were run in parallel with the patient's specimen; these controls showed expected staining pattern, with acceptable intensity of staining. Immunohistochemical assays have not been validated on decalcified tissues. Results should be interpreted with caution given the raised possibility of false negativity on decalcified specimens. Professional Performing Location: [place] [address]. DEPARTMENT OF PATHOLOGY AND LABORATORY MEDICINE [place], [place] [address] GLUCOSE,BEDSIDE Collected: 02/22/2018 Status: F Source: [facility] 8:40 AM SYSTEM REPOSITORY TYPE CODE TESTS RESULT OUT OF RANGE REFERENCE UNITS LAB BGLU 70-100 mg/dL High 246 Glucose,Beds carolyn Result Comment: Test performed by glucose meter. Results may be 10%-15% lower than serum/plasma values. (CLIA ID [id number]) Performed By: #### BGLU #### [facility] [address] [place] [phone] Observed: 02/22/2018 Status: F Source: [facility] TS GEL 8:05 AM SYSTEM REPOSITORY ABO Group: O Rh, Gel: NEG Antibody Screen Gel: NEG Performed By: #### TSGL #### [facility] [address] [address] HEMOGRAM W/ AUTODIFF Collected: 02/22/2018 Status: F Source: [facility] 7:41 AM SYSTEM REPOSITORY TYPE CODE TESTS RESULT OUT OF REFERENCE UNITS RANGE LAB IWBC 3.6-10.7 10*3/uL WBC High 17.6 LAB RBC 4.40-5.90 10*6/uL Low RBC 4.06 LAB HGB 13.0-18.0 g/dL Low Hemoglobin 11.7 LAB HCT 40.0-52.0 % Low Hematocrit 33.9 LAB MCV 80.0-98.0 fL MCV Normal 83.5 LAB MCH 26.0-34.0 pg MCH Normal 28.8 LAB MCHC 32.0-36.0 % MCHC Normal 34.5 LAB RDW 11.5-14.5 % RDW High 15.3 LAB PLT 140-440 10*3/uL Platelet Normal 189 LAB MPV 7.4-10.4 fL MPV Normal 8.8 LAB GRAN% 40.0-80.0 % Granulocytes High 87.6 LAB LYMP% 20.0-40.0 % Low Lymphocytes 5.0 LAB MONO% 2.0-10.0 % Monocytes Normal 7.0 LAB EOS% 1.0-6.0 % Low Eosinophils 0.1 LAB BAS% 0.0-2.0 % Basophils Normal 0.3 LAB ANC 1.8-7.0 10*3/uL Abs High Neutrophile Cnt 15.4 LAB ALC 1.0-4.3 10*3/uL Low Abs Lymph Cnt 0.9 LAB AMC 0.0-0.8 10*3/uL Abs Monocyte High Cnt 1.2 LAB AEC 0.0-0.5 10*3/uL Abs Eosin Cnt Normal 0.0 LAB ABC 0.0-0.2 10*3/uL Abs Baso Cnt Normal 0.1 Performed By: #### HEMDF, MG3, PHOS3, BMP3M, LFT3 #### [facility] [address] [place] [phone] MAGNESIUM Collected: 02/22/2018 Status: F Source: [facility] 7:37 AM SYSTEM REPOSITORY TYPE CODE TESTS RESULT OUT OF RANGE REFERENCE UNITS LAB MG3 1.6-2.3 mg/dL Normal Magnesium 1.7 Performed By: #### HEMDF, MG3, PHOS3, BMP3M, LFT3 #### [facility] [address] [place] [phone] PHOSPHORUS Collected: 02/22/2018 Status: F Source: [facility] 7:37 AM SYSTEM REPOSITORY TYPE CODE TESTS RESULT OUT OF RANGE REFERENCE UNITS LAB PHOS3 2.5-4.5 mg/dL Normal Phosphorus 2.8 Performed By: #### HEMDF, MG3, PHOS3, BMP3M, LFT3 #### [facility] [address] [place] [phone] BASIC METABOLIC PANEL Collected: 02/22/2018 Status: F Source: [facility] 7:37 AM SYSTEM REPOSITORY TYPE CODE TESTS RESULT OUT OF RANGE REFERENCE UNITS LAB NA3 137-145 mmol/L Normal Sodium 140 LAB K3 3.5-5.1 mmol/L Low Alert Potassium 2.5 Result Comment: Repeated LAB CL3 98-107 mmol/L Normal Chloride 103 LAB CO23 22-30 mmol/L Normal Carbon Dioxide 28 LAB ANIN3 NA Anion Gap 9 LAB GLUC3 70-100 mg/dL High Glucose 243 LAB BUN3 7-20 mg/dL Normal Urea Nitrogen 18 LAB CRET3 0.52-1.25 mg/dL High Creatinine 1.44 LAB GF3BR >60 mL/min eGFR > 60.0 LAB GF3WR >60 mL/min eGFR OTHER 50.5 Result Comment: Source- MDRD equation with creatinine calibration to IDMS(NKDEP) eGFR not recommended for drug dose adjustment LAB CA3 8.4-10.4 mg/dL Low Calcium 8.0 Performed By: #### HEMDF, MG3, PHOS3, BMP3M, LFT3 #### [facility] [address] [place] [phone] HEPATIC FUNCTION Collected: 02/22/2018 Status: F Source: [facility] 7:37 AM SYSTEM REPOSITORY TYPE CODE TESTS RESULT OUT OF RANGE REFERENCE UNITS LAB ALB3 3.5-5.0 g/dL Low Albumin, Serum 3.0 LAB TP3 6.3-8.2 g/dL Low Total Protein 5.5 LAB BILT3 0.2-1.3 mg/dL Normal Bilirubin,Total 0.7 LAB BILD3 0.0-0.3 mg/dL Normal Bilirubin,Direct 0.0 LAB ALKP3 38-126 U/L Alkaline Normal Phosphatase 114 LAB ALT3 13-69 U/L ALT (SGPT) Normal 30 LAB AST3 15-46 U/L AST (SGOT) Normal 27 Performed By: #### HEMDF, MG3, PHOS3, BMP3M, LFT3 #### [facility] [address] [place] [phone] US ABDOMEN LIMITED Observed: 02/22/2018 Status: F Source: [facility] 5:31 AM SYSTEM REPOSITORY Patient Name: BRADLEY KEYS Ultrasound Exam Date/Time 02/22/2018 05:10:54 EST Exam US Abdomen Limited Ordering Physician MD [facility] Accession Number [id number] CPT4 Codes 03885 () Reason For Exam ruq pain Report CLINICAL INFORMATION: Right upper quadrant pain. Ultrasound of the right upper quadrant is provided. The examination is compared to a previous study dated 08/25/2017. FINDINGS: The liver is homogeneous in its echogenicity without focal abnormality. There is no evidence of intra or extrahepatic biliary dilatation. Sludge and tiny stones are present in the dependent gallbladder lumen. The gallbladder wall remains normal. There is no pericholecystic fluid. The patient is tender during evaluation of the gallbladder (positive Rocha's sign). The right kidney measures 12.0 x 5.9 x 6.2 cm. There is no evidence of hydronephrosis or hydroureter. No free fluid is seen within the abdomen. Due to overlying bowel gas, the pancreas cannot be visualized. IMPRESSION: 1. Sludge and stones in the dependent gallbladder lumen. 2. No biliary dilatation. 3. The patient is tender during evaluation of the gallbladder (positive Rocha's sign). Report Dictated on Workstation: [id number] Final Dictated: 02/22/2018 5:31 am Dictating Physician: MD PARIKH JEFFREY Signed Date and Time: 02/22/2018 5:35 am Signed by: MD PARIKH JEFFREY Transcribed Date and Time: 02/22/2018 5:31 BILIRUBIN,DIRECT Collected: 02/22/2018 Status: F Source: [facility] 4:36 AM SYSTEM REPOSITORY TYPE CODE TESTS RESULT OUT OF RANGE REFERENCE UNITS LAB BILD3 0.0-0.3 mg/dL Normal 0.0 Bilirubin,Di rect Performed By: #### BILD3, BILT3 #### [facility] [address] [place] [phone] BILIRUBIN,TOTAL Collected: 02/22/2018 Status: F Source: [facility] 4:36 AM SYSTEM REPOSITORY TYPE CODE TESTS RESULT OUT OF RANGE REFERENCE UNITS LAB BILT3 0.2-1.3 mg/dL Normal 0.7 Bilirubin,To alejandra Performed By: #### BILD3, BILT3 #### [employer] [facility] [address] [place] [address] GLUCOSE,BEDSIDE Collected: 02/22/2018 Status: F Source: [facility] 4:10 AM SYSTEM REPOSITORY TYPE CODE TESTS RESULT OUT OF RANGE REFERENCE UNITS LAB BGLU 70-100 mg/dL High 234 Glucose,Beds carolyn Result Comment: Test performed by glucose meter. Results may be 10%-15% lower than serum/plasma values. (CLIA ID [id number]) Performed By: #### BGLU #### [facility] [address] [place] [address] ED PROVIDER NOTE Observed: 02/22/2018 Status: F Source: [facility] 3:25 AM SYSTEM REPOSITORY [facility] 6W MED SURG eMERGENCY dEPARTMENT eNCOUnter Pt Name: Bradley Keys Birthdate 1960 Date of evaluation: 02/22/2018 Provider: Madison Palacios MD Chief Complaint: No chief complaint on file. [place]: Bradley Keys is a 57 y.o. male that presents due to abdominal pain. He is transferred from an outside facility and posterior. Patient recently had a gastric bypass surgery about a week ago here. Patient reports nausea and vomiting after eating for the past week. He started having pain in the RIGHT upper quadrant for the past 2 days. Nonradiating. No aggravating or alleviating factors. He reports some generalized weakness as well. Has not been able to take his usual medications. CT scan was obtained at outside facility which revealed possible cholecystitis. Patient was transferred here due to the surgeons being here. ROS: General: No fevers. No weakness. Eyes: No eye discharge. ENT: No sore throat. No nasal congestion. Cardiovascular: No chest pain. No palpitations. Respiratory: No shortness of breath. No cough. Gastrointestinal: Has abdominal pain. Has vomiting. Genitourinary: No dysuria. No hematuria. Musculoskeletal: No muscle pain. No joint pain. Skin: No rash. No abrasions. Neurologic: No headache. No extremity numbness. Psychiatric: No anxiety Past Medical History: Diagnosis Date ? Anxiety ? Back pain ? Chest pain on exertion ? Circulation problem ? 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 Daytime sleepiness ? Deficiency of multiple nutrient elements ? Depression ? Diabetes (HCC) ? Difficulty moving head From side to side ? Dizziness ? Fatigue ? High blood pressure ? High cholesterol ? History of heart attack 2008 ? Hypothyroid ? Intestinal malabsorption ? Joint pain, hip ? Joint pain, knee ? Memory difficulties ? Mild heartburn ? Morbid obesity (HCC) ? Multiple open wounds ? Muscle weakness ? MARKY treated with BiPAP ? Ringing in ears ? Shortness of breath at rest ? Shortness of breath on exertion ? Sleeping difficulties ? Snoring ? Stomach problems Past Surgical History: Procedure Laterality Date ? CARDIAC CATHETERIZATION 2016 [facility] ? CHOLECYSTECTOMY 02/22/2018 Laparoscopic converted to open cholecystectomy ? COLONOSCOPY 02/17/2018 ? CORONARY ANGIOPLASTY WITH STENT PLACEMENT 2008 [facility]- [facility]; pt does not have card with information ? CYST REMOVAL Evangelist [facility]- Fatty Tissue on head. ? HIATAL HERNIA REPAIR 01/26/2018 W/ LRYGB- Dr. Cullen- [facility] ? LYMPH NODE BIOPSY Right Clipped, [facility], neck ? NECK SURGERY ? YANG-EN-Y GASTRIC BYPASS 01/26/2018 W/ Hiatal Hernia Repair- Dr. Cullen- [facility] ? UPPER GASTROINTESTINAL ENDOSCOPY 08/12/2017 Family History Problem Relation Age of Onset ? Hypertension Mother ? Diabetes Mother ? Heart Disease Mother ? Stroke Mother ? Diabetes Father ? Hypertension Father ? Clotting Disorder Father ? Cancer Father ? Diabetes Sister ? Hypertension Sister ? Heart Disease Sister ? Heart Disease Brother Social History Social History ? Marital status: Spouse name: N/A ? Number of children: N/A ? Years of education: N/A Occupational History ? Not on file. Social History Main Topics ? Smoking status: Never Smoker ? Smokeless tobacco: Never Used ? Alcohol use No ? Drug use: No ? Sexual activity: No Other Topics Concern ? Not on file Social History Narrative ? No narrative on file Current Facility-Administered Medications Medication Dose Route Frequency Provider Last Rate Last Dose ? sodium chloride flush 0.9 % injection 10 mL 10 mL Intravenous 2 times per day David Burr MD 10 mL at 02/22/18 0800 ? sodium chloride flush 0.9 % injection 10 mL 10 mL Intravenous PRN David Burr MD ? morphine injection 2 mg 2 mg Intravenous Q2H PRN David Burr MD 2 mg at 02/22/18 2214 Or ? morphine injection 4 mg 4 mg Intravenous Q2H PRN David Burr MD 4 mg at 02/22/18 0800 ? ondansetron (ZOFRAN) injection 4 mg 4 mg Intravenous Q6H PRN David Burr MD 4 mg at 02/22/18 0903 ? piperacillin-tazobactam (ZOSYN) 3.375 g in dextrose 50 mL IVPB extended infusion (premix) 3.375 g Intravenous Q8H David Burr MD 12.5 mL/hr at 02/22/18 220 3.375 g at 02/22/18 2209 ? [START ON 02/23/2018] influenza quadrivalent split vaccine (FLUZONE;FLUARIX;FLULAVAL;AFLURIA) injection 0.5 mL 0.5 mL Intramuscular Once En Cavazos MD ? citalopram (CELEXA) tablet 20 mg 20 mg Oral Daily Davion Ochoa MD 20 mg at 02/22/181929 ? docusate sodium (COLACE) capsule 50 mg 50 mg Oral Daily Davion Ochoa MD ? isosorbide mononitrate (IMDUR) extended release tablet 30 mg 30 mg Oral Daily Davion Ochoa MD 30 mg at 02/22/181929 ? levothyroxine (SYNTHROID) tablet 100 mcg 100 mcg Oral Nightly Davion Ochoa MD 100 mcg at 02/22/181929 ? metoprolol tartrate (LOPRESSOR) tablet 25 mg 25 mg Oral BID Davion Ochoa MD 25 mg at 02/22/181929 ? [START ON 02/23/2018] pantoprazole (PROTONIX) tablet 40 mg 40 mg Oral QAM AC Davion Ochoa MD ? vitamin D (CHOLECALCIFEROL) tablet 4,000 Units 4,000 Units Oral Daily Davion Ochoa MD ? vitamin B-12 (CYANOCOBALAMIN) tablet 1,000 mcg 1,000 mcg Oral Weekly Davion Ochoa MD ? heparin (porcine) injection 5,000 Units 5,000 Units Subcutaneous 3 times per day Hemalatha Barrientos MD 5,000 Units at 02/22/18 1702 ? glucose (GLUTOSE) 40 % oral gel 15 g 15 g Oral PRN Davi Storey MD ? dextrose 50 % solution 12.5 g 12.5 g Intravenous PRN Davi Storey MD ? glucagon (rDNA) injection 1 mg 1 mg Intramuscular PRN Davi Storey MD ? dextrose 5 % solution 100 mL/hr Intravenous PRN Davi Storey MD ? lactated ringers infusion Intravenous Continuous Davi Storey MD 125 mL/hr at 02/22/18 1530 ? [START ON 02/23/2018] insulin lispro (HUMALOG) injection vial 0-12 Units 0-12 Units Subcutaneous TID WC Davi Storey MD ? insulin lispro (HUMALOG) injection vial 0-6 Units 0-6 Units Subcutaneous Nightly Davi Storey MD 3 Units at 02/22/18 2209 Allergies Allergen Reactions ? Celebrex [Celecoxib] Other (See Comments) blisters from head to toe Water Blisters Nursing Notes Reviewed Physical Exam: ED Triage Vitals Enc Vitals Group BP 02/22/18 0727 (!) 143/69 Pulse 02/22/18 0727 78 Resp 02/22/18 07 18 Temp 02/22/18 0727 99.7 ?F (37.6 ?C) Temp Source 02/22/18 0727 Temporal SpO2 02/22/18 0727 95 % Weight 02/22/18 0841 300 lb (136.1 kg) Height 02/22/18 0841 5' 8 (1.727 m) Head Circumference -- Peak Flow -- Pain Score -- Pain Loc -- Pain Edu? -- Excl. in GC? -- My pulse ox interpretation is ? normal General: Well appearing patient. No acute distress. Psychiatric: Appropriate goal oriented speech. Judgement intact. Eyes: No scleral icterus Ears, nose, mouth and throat: Moist oral mucosa. Neck: Trachea midline. Cardiovascular: Regular rate and rhythm, no murmurs. Respiratory: Clear to auscultation bilaterally. No wheezes, crackles. Abdominal: Tender to palpation especially in the upper abdomen and the epigastric and RIGHT upper quadrant region. Otherwise no rebound or guarding. Back: No CVA tenderness to palpation Skin: Warm. Dry. No rashes Musculoskeletal: No obvious deformities. No edema. Neurological: Alert and oriented x3. Moving all four extremities I have reviewed and interpreted all of the currently available lab results from this visit (if applicable): Results for orders placed or performed during the hospital encounter of 02/22/18 Bilirubin, Direct Result Value Ref Range Bilirubin, Direct 0.0 0.0 - 0.3 mg/dL Bilirubin, Total Result Value Ref Range Total Bilirubin 0.7 0.2 - 1.3 mg/dL Magnesium Result Value Ref Range Magnesium 1.7 1.6 - 2.3 mg/dL Phosphorus Result Value Ref Range Phosphorus 2.8 2.5 - 4.5 mg/dL CBC auto differential Result Value Ref Range WBC 17.6 (H) 3.6 - 10.7 10*3/uL RBC 4.06 (L) 4.40 - 5.90 10*6/uL Hemoglobin 11.7 (L) 13.0 - 18.0 g/dL Hematocrit 33.9 (L) 40.0 - 52.0 % MCV 83.5 80.0 - 98.0 fL MCH 28.8 26.0 - 34.0 pg MCHC 34.5 32.0 - 36.0 % RDW 15.3 (H) 11.5 - 14.5 % Platelets 189 140 - 440 10*3/uL MPV 8.8 7.4 - 10.4 fL Granulocytes % 87.6 (H) 40.0 - 80.0 % Lymphocyte % 5.0 (L) 20.0 - 40.0 % Monocytes 7.0 2.0 - 10.0 % Eosinophils 0.1 (L) 1.0 - 6.0 % Basophils 0.3 0.0 - 2.0 % Absolute Neut # 15.4 (H) 1.8 - 7.0 10*3/uL Absolute Lymph # 0.9 (L) 1.0 - 4.3 10*3/uL Absolute Haskell # 1.2 (H) 0.0 - 0.8 10*3/uL Absolute Eos # 0.0 0.0 - 0.5 10*3/uL Absolute Baso # 0.1 0.0 - 0.2 10*3/uL Basic Metabolic Panel w/ Reflex to MG Result Value Ref Range Sodium 140 137 - 145 mmol/L Potassium 2.5 (LL) 3.5 - 5.1 mmol/L Chloride 103 98 - 107 mmol/L CO2 28 22 - 30 mmol/L Anion Gap 9 NA Glucose 243 (H) 70 - 100 mg/dL BUN 18 7 - 20 mg/dL CREATININE 1.44 (H) 0.52 - 1.25 mg/dL eGFR >60.0 >60 mL/min EGFR IF NonAfrican Latvian 50.5 >60 mL/min Calcium 8.0 (L) 8.4 - 10.4 mg/dL Hepatic Function Panel Result Value Ref Range Albumin,Serum 3.0 (L) 3.5 - 5.0 g/dL Total Protein 5.5 (L) 6.3 - 8.2 g/dL Total Bilirubin 0.7 0.2 - 1.3 mg/dL Bilirubin, Direct 0.0 0.0 - 0.3 mg/dL Alkaline Phosphatase 114 38 - 126 U/L ALT 30 13 - 69 U/L AST 27 15 - 46 U/L Comprehensive Metabolic Panel Result Value Ref Range Sodium 140 137 - 145 mmol/L Potassium 2.7 (L) 3.5 - 5.1 mmol/L Chloride 103 98 - 107 mmol/L CO2 25 22 - 30 mmol/L Anion Gap 12 NA Glucose 293 (H) 70 - 100 mg/dL BUN 19 7 - 20 mg/dL CREATININE 1.52 (H) 0.52 - 1.25 mg/dL eGFR 57.5 >60 mL/min EGFR IF NonAfrican Latvian 47.5 >60 mL/min Calcium 8.0 (L) 8.4 - 10.4 mg/dL Albumin,Serum 3.2 (L) 3.5 - 5.0 g/dL Total Protein 5.8 (L) 6.3 - 8.2 g/dL Total Bilirubin 0.9 0.2 - 1.3 mg/dL Alkaline Phosphatase 118 38 - 126 U/L ALT 57 13 - 69 U/L AST 75 (H) 15 - 46 U/L CBC Result Value Ref Range WBC 15.9 (H) 3.6 - 10.7 10*3/uL RBC 4.17 (L) 4.40 - 5.90 10*6/uL Hemoglobin 11.9 (L) 13.0 - 18.0 g/dL Hematocrit 35.1 (L) 40.0 - 52.0 % MCV 84.3 80.0 - 98.0 fL MCH 28.6 26.0 - 34.0 pg MCHC 34.0 32.0 - 36.0 % RDW 15.2 (H) 11.5 - 14.5 % Platelets 184 140 - 440 10*3/uL MPV 8.8 7.4 - 10.4 fL POCT Glucose Result Value Ref Range POC Glucose 234 (H) 70 - 100 mg/dL POCT Glucose Result Value Ref Range POC Glucose 246 (H) 70 - 100 mg/dL POCT Glucose Result Value Ref Range POC Glucose 277 (H) 70 - 100 mg/dL POCT Glucose Result Value Ref Range POC Glucose 274 (H) 70 - 100 mg/dL POCT Glucose Result Value Ref Range POC Glucose 295 (H) 70 - 100 mg/dL POCT Glucose Result Value Ref Range POC Glucose 250 (H) 70 - 100 mg/dL TYPE AND SCREEN Result Value Ref Range ABO Grouping O NA Rh Type NEG NA Antibody Screen NEG NA Radiographs (if obtained): US ABDOMEN LIMITED Final Result EKG (if obtained): (All EKG's are interpreted by myself in the absence of a superintendent maintenance) none Chart review shows recent radiographs: Us Abdomen Limited Result Date: 02/22/2018 Patient Name: BRADLEY KEYS ---Ultrasound--- Exam Date/Time 02/22/2018 05:10:54 EST Exam US Abdomen Limited Ordering Physician MD JIM, [facility], [facility] Accession Number [id number] CPT4 Codes 90120 () Reason For Exam ruq pain Report CLINICAL INFORMATION: Right upper quadrant pain. Ultrasound of the right upper quadrant is provided. The examination is compared to a previous study dated 08/25/2017. FINDINGS: The liver is homogeneous in its echogenicity without focal abnormality. There is no evidence of intra or extrahepatic biliary dilatation. Sludge and tiny stones are present in the dependent gallbladder lumen. The gallbladder wall remains normal. There is no pericholecystic fluid. The patient is tender during evaluation of the gallbladder (positive Rocha's sign). The right kidney measures 12.0 x 5.9 x 6.2 cm. There is no evidence of hydronephrosis or hydroureter. No free fluid is seen within the abdomen. Due to overlying bowel gas, the pancreas cannot be visualized. IMPRESSION: 1. Sludge and stones in the dependent gallbladder lumen. 2. No biliary dilatation. 3. The patient is tender during evaluation of the gallbladder (positive Rocha's sign). Report Dictated on Workstation: [id number] --- Final --- Dictated: 02/22/2018 5:31 am Dictating Physician: MD PARIKH JEFFREY Signed Date and Time: 02/22/2018 5:35 am Signed by: MD PARIKH JEFFREY Transcribed Date and Time: 02/22/2018 5:31 Fl Ugi Result Date: 01/27/2018 Patient Name: BRADLEY KEYS ---Fluoroscopy--- Exam Date/Time 01/27/2018 08:09:33 EST Exam RF UGI w/o KUB & w/ or w/o Delay Flm Ordering Physician MD BARRIENTOS KELLEN Accession Number [id number] [facility] Codes 89619 () Reason For Exam S/p LRYGB Report GASTROGRAFIN UPPER GI SERIES CLINICAL INDICATION: S/P gastric bypass and hiatal hernia repair, postop, day one. Evaluate for leak. COMPARISON: None TECHNIQUE: Gastrografin was administered in the upright position. FLUOROSCOPY TIME: 0.6 minutes FLUOROSCOPIC IMAGES: 27 fluoroscopic spot images were obtained. FINDINGS: Gastrografin was administered orally to the patient in the upright position. The esophagus is of normal course and caliber with no evidence of perforation or extravasation. The gastrojejunostomy is patent with no sign of extravasation or obstruction. The contrast empties readily from the gastric pouch into the jejunum. The jejunal jejunostomy is identified and shows free flow of contrast beyond the metallic clips that identify the anastomosis. There is no sign of obstruction. A surgical drain is noted in the left upper quadrant. IMPRESSION: Post- op changes consistent with gastric bypass surgery. No sign of extravasation or obstruction. Report Dictated on --- Final --- Dictated: 01/27/2018 7:21 am Dictating Physician: MD POE B NELSON Signed Date and Time: 01/27/2018 11:51 am Signed by: MD POE B NELSON Transcribed Date and Time: 01/27/2018 8:06 MDM: Patient already received Zosyn at outside facility. We did recheck an active check here. Labs at outside facility revealed leukocytosis 18. Surgery did add on him additional lab tests and will be admitting the patient taken to the OR later today. Clinical Impression: 1. Cholecystitis 2. Acute cholecystitis Disposition referral (if applicable): Keli Bragg [address] [place] [id number] En Cavazos MD [address] [place] [address], [phone] [facility] [phone] Schedule an appointment as soon as possible for a visit in 2 weeks For wound re-check, Follow-up after surgery. Disposition medications (if applicable): Current Discharge Medication List START taking these medications Details oxyCODONE-acetaminophen (PERCOCET) 5-325 MG per tablet Take 1 tablet by mouth every 6 hours as needed for Pain for up to 3 days.. Qty: 28 tablet, Refills: 0 Associated Diagnoses: Cholecystitis promethazine (PHENERGAN) 25 MG tablet Take 1 tablet by mouth every 6 hours as needed for Nausea Qty: 30 tablet, Refills: 1 Comment: Please note this report has been produced using speech recognition software and may contain errors related to that system including errors in grammar, punctuation, and spelling, as well as words and phrases that may be inappropriate. If there are any questions or concerns please feel free to contact the dictating provider for clarification. Madison Palacios MD MD Madison Gonzalez MD 02/22/18 2221 EMERGENCY DEPARTMENT Observed: 02/22/2018 Status: F Source: [place] SUMMARY 12:45 AM [facility] REPOSITORY [facility] Medical Records Department [address] [place] [address] Emergency Department Summary 02/21/18 2341 MR#: [id number] Acct: [id number] Name: BRADLEY KEYS Rep #: [id number] : 1960 57 From: Kevon Mackenzie MD PCP: Keli Kennedy Status: REG ER - ER Visit Summary Date of Service: 02/21/18 Chief Complaint: Abdominal pain History of Present Illness: The patient is a 57 M presenting for evaluation secondary to abdominal pain. Patient is status post Yang-en-Y gastric bypass on January 26 at [facility]. Patient states that he has been having issues with intermittent abdominal pain, and actually was recently admitted to [facility] for a workup of this. He had negative imaging, and had a negative upper endoscopy and was discharged home. Patient states that he now had an onset of worsening pain in a different area. He localizes it in his right upper quadrant. This been associated with nausea and vomiting. He denies any presence of fevers or urinary signs or symptoms. Review of systems otherwise negative except for some chest discomfort and dyspnea. Physical Examination: Vital signs notable blood pressure 187/84. Morbidly obese male visibly in pain. No conjunctival pallor or scleral icterus. Moist mucous membranes. Neck was supple. Heart regular rate and rhythm, no murmurs. Lungs clear. Abdomen was tender in the right upper quadrant with guarding and a positive Rocha sign. Patient's incisions all appear to be clean dry and intact. Test Results: CBC demonstrates leukocytosis of 18.3, alkaline phosphatase mildly elevated at 123. Lipase normal. CT abdomen and pelvis demonstrates evidence of pericholecystic fluid, gallbladder wall thickening, and evidence of cholecystitis. Emergency Department Course and Treatment: Patient presented for evaluation secondary to right upper quadrant abdominal pain. He was found to have a profound leukocytosis and CT ended up showing evidence that the patient light has likely cholecystitis. Patient was given morphine Zofran and fluids. He was given Zosyn. I believe that the patient requires transfer back to [facility] as he is recently postop from a laparoscopic Yang-en-Y. I discussed this with the [facility] transfer line. Disposition: Transfer Impression: 1. Acute cholecystitis 2. Recent laparoscopic Yang-en-Y This note was generated with [employer] dictation software. It may contain incorrect words, spelling, and punctuation that were not noted in review of the chart prior to signing ED Disposition - Plan for ED Patient: Chief Complaint: Abd Pain Referrals: Keli Bragg, [facility] [Primary Care Provider] - What to do if you have Problems For any increased pain, shortness of breath, bleeding, nausea or vomiting, chest pain, or any unexpected problems, contact your Primary Care Provider. Call [facility] ([phone]) or report to the closest Emergency Room. Call 911 if necessary. 02/22/18 0045 <Electronically signed by Kevon Mackenzie MD> Date Kevon Mackenzie MD Cosigner Signature (If Indicated): Date CC: Keli SWEENEY CBC W/DIFF, AUTOMATED Collected: 02/21/2018 Status: F Source: [place] 8:35 PM [facility] REPOSITORY TYPE CODE TESTS RESULT OUT OF RANGE REFERENCE UNITS LAB L100.1000 4.4-11.0 K/mm3 High WBC 18.3 LAB L100.1200 4.6-6.2 M/mm3 Normal RBC 4.61 LAB L100.1300 13.0-16.5 g/dl Normal HGB 13.3 LAB L100.1400 40-54 % Low HCT 39.2 LAB L100.1500 80-94 fL Normal MCV 85.0 LAB L100.1600 27.0-32.0 pg Normal MCH 28.9 LAB L100.1700 32-36 g/gl Normal MCHC 33.9 LAB L100.1810 11.6-14.6 % High RDW CV 14.8 LAB L100.1820 35.1-43.9 fl High RDW SD 46.1 LAB L100.1900 150-450 K/mm3 Normal PLT 178 LAB L100.2000 6.2-12.0 fl Normal MPV 10.3 LAB L100.2100 47-70 % High NEUT% 89.2 LAB L100.2200 19-41 % Low LY% 4.6 LAB L100.2300 0-10 % Normal MONO% 5.7 LAB L100.2400 0-5 % Normal EO% 0.1 LAB L100.2500 0-1 % Normal BASO% 0.1 LAB L100.2550 0.0-0.9 % Normal IM GRAN % 0.300 Result Comment: IG% - Immature Granulocytes (promyelocytes, myelocytes and metamyelocytes) > 1% indicates that a LEFT SHIFT is Present. LAB L100.2620 2.0-7.7 X10 3/uL High Absolute Neut 16.4 LAB L100.2720 0.83-4.51 X10 3/ul Normal Absolute Lymph 0.85 Performed By: #### L100.0100 #### [facility] [place], [address] COMPREHENSIVE METABOLIC Collected: 02/21/2018 Status: F Source: [facility] 8:35 PM [facility] REPOSITORY TYPE CODE TESTS RESULT OUT OF RANGE REFERENCE UNITS LAB L501.0100 74-106 mg/dL High GLU 256 Result Comment: Glucose result greater than or equal to 200 mg/dL suggests DIABETES MELLITUS per A.D.A. criteria. Please note revised GLUCOSE reference range effective 2017. LAB L501.1000 7-18 mg/dL High BUN 20 LAB L501.1100 0.70-1.30 mg/dL High CREAT,SERUM 1.66 Result Comment: The validity of the calculated GFR AND GFRAA in patients over 70 years has not been determined. Clinical correlation is essential. LAB L501.1110 >60 mL/min Low EST GFR 46 Result Comment: Non- GFR Calc LAB L501.1115 >60 mL/min Low EST GFR - AA 55 Result Comment: GFR Calc LAB L501.1255 ml/min Normal Estimated CRCL 47.50 LAB L501.1300 10-20 RATIO Normal BUN/CRE 12.0 LAB L501.1500 6.4-8. g/dL Normal 2 T PROT 7.1 LAB L501.1800 3.2-5. g/dL Low 0 ALB 2.6 LAB L501.1950 2.2-4. g/dL High 2 GLOB 4.5 LAB L501.2000 0.9-2. RATIO Low 4 A/G 0.6 LAB L501.2200 8.5-10 mg/dL Normal .1 CA 8.8 LAB L501.4100 15-37 U/L Normal AST 18 LAB L501.4305 45-117 U/L High ALK P 123 LAB L501.4405 16-61 U/L Normal ALT 21 LAB L501.4600 0.20-1 mg/dL Normal .00 T BILI 0.60 LAB L501.5300 136-14 mmol/L Normal 5 NA 139 LAB L501.5600 3.5-5. mmol/L Low 1 K 3.0 LAB L501.5900 98-107 mmol/L Normal CL 101 LAB L501.6100 21.0-3 mmol/L Normal 2.0 CO2 27.0 LAB L501.6200 5-15 Normal GAP 11 Performed By: #### L500.4050, L501.2450 #### [facility] [address] [facility] [place], [address] LIPASE Collected: 02/21/2018 Status: F Source: [place] 8:35 PM [facility] REPOSITORY TYPE CODE TESTS RESULT OUT OF REFERENCE UNITS RANGE LAB L501.2450 73-393 U/L Low LIPASE 55 Performed By: #### L500.4050, L501.2450 #### [facility] [address] [place], [address] ABDOMEN/PELVIS WITH Observed: 02/21/2018 Status: F Source: [place] CONTRAST 8:23 PM [facility] REPOSITORY [facility] Imaging Services [address] [place] [address] Abdomen/Pelvis WITH Contrast MR#: [id number] Acct: [id number] Name: BRADLEY KEYS Rep #: [id number] : 1960 M 57 From: Alvarez Johnson MD PCP: Keli Kennedy Status: DEP ER Study: Abdomen/Pelvis WITH Contrast Date of Exam: 02/21/18 Exam# [id number] Ordering Dr: Kevon Mackenzie MD STUDY: CT ABDOMEN AND PELVIS WITH CONTRAST REASON FOR EXAM: Male, 57 years old. Increasing leukocytosis with right abdominal pain history of recent gastric surgery. RADIATION DOSAGE (If Supplied By Facility): CTDIvol = ( 25.39 ) mGy, DLP = ( 1358.88 ) mGycm TECHNIQUE: Transaxial images were obtained from the dome of the diaphragm to the symphysis pubis without oral contrast. 100 ml of Isovue 300 contrast was administered. Sagittal and coronal images were reconstructed. Individualized dose optimization techniques were used for this CT. COMPARISON: None. FINDINGS: The visualized lung bases are unremarkable. The visualized portions of the heart are within normal limits. Normal liver. Gallbladder wall thickening with pericholecystic induration and mild pericholecystic fluid (in addition to trace perihepatic fluid) is worse since the prior study. Normal spleen. Normal pancreas. Normal bilateral adrenal glands. Normal right kidney. Cystic prominence of the bilateral central kidneys are felt to represent parapelvic renal cysts rather than hydronephrosis, although the latter cannot be excluded. Similar operative changes of the stomach as compared to the prior study. Normal small intestine. Normal colon. There is non-visualization of the appendix. There is diffuse atherosclerotic calcification of the abdominal aorta, without a demonstrated aneurysm. Normal inferior vena cava. Normal retroperitoneum. Normal urinary bladder. Normal abdominal wall. Normal osseous structures. CT/Abdomen/Pelvis WITH Contrast IMPRESSION: 1. Increasing gallbladder wall thickening, pericholecystic induration/fluid and perihepatic fluid worrisome for acute cholecystitis. 2. Additional chronic changes, as above. Electronically Signed: Alvarez Johnson MD at 23:44 EST , Service support , CC: Keli SWEENEY; Kevon Mackenzie Medical Reception Specialist: Signed 12 LEAD ELECTROCARDIOGRAM Observed: 02/19/2018 Status: F Source: [place] 1:34 PM [facility] REPOSITORY [facility] Cardiovascular [place] [address] [address] [place] [address] 12 Lead EKG 02/16/18 1437 MR#: [id number] Acct: [id number] Name: BRADLEY KEYS Rep #: [id number] : 1960 57 From: Cody Lombardi MD Attending Dr: Status: DEP ER Ordering Dr: Florence Izquierdo MD Date: 02/16/18 Location: ED Sex: M C Admitted: Test Reason : ILLNESS Blood Pressure : / mmHG Vent. Rate : 072 BPM Atrial Rate : 072 BPM P-R Int : 180 ms QRS Dur : 106 ms QT Int : 398 ms P-R-T Axes : 047 072 002 degrees QTc Int : 435 ms Normal sinus rhythm Normal ECG Confirmed by CHELSEA BEACH, CODY ([id number]), managing editor KELLY MATTHEW ([id number]) on 02/19/2018 1:34:17 PM Referred By: KIMO Confirmed By:CODY LOMBARDI MD 02/19/18 1334 Date Cody Lombardi MD CC: MD Franklin Izquierdo; Keli SWEENEY Signed GLUCOSE,BEDSIDE Collected: 02/17/2018 Status: F Source: [facility] 4:46 PM SYSTEM REPOSITORY TYPE CODE TESTS RESULT OUT OF RANGE REFERENCE UNITS LAB BGLU 70-100 mg/dL High 178 Glucose,Beds carolyn Result Comment: Test performed by glucose meter. Results may be 10%-15% lower than serum/plasma values. (CLIA ID [id number]) Performed By: #### BGLU #### [employer] [facility] [address] [place] [id number] EMERGENCY DEPARTMENT Observed: 02/16/2018 Status: C Source: [place] SUMMARY 6:17 PM [facility] REPOSITORY [facility] Medical Records Department [address] [place] [address] Emergency Department Summary 02/16/18 1434 MR#: [id number] Acct: [id number] Name: BRADLEY KEYS Rep #: [id number] : 1960 57 From: Florence Izquierdo MD PCP: Keli Kennedy Status: REG ER ADDENDUM by Joseph Holland MD on 02/16/18 at 1817 Patient turned over to me from the morning physician. Patient's labs including CBC, BMP, liver lipase and troponin were all unremarkable. Patient on well on repeat exam after morphine and Zofran by the original physician. I was supposed to check his CT abdomen and pelvis which showed a distended gallbladder. Patient has a normal white count. On repeat exam he does not have specific tenderness over his right upper quadrant or Rocha sign. He is tender over his abdominal incisions primarily on the left. Patient feels comfortable being discharged home. His vital signs are stable. He was written for Zofran for nausea. He will follow-up with his gastric bypass surgeon Dr. Jasmine from [facility]. Date Joseph Holland MD cc: Keli SWEENEY * Addendum - ER Visit Summary Date of Service: 02/16/18 Chief Complaint: [] Abdominal pain and vomiting recent gastric bypass surgery at [facility] History of Present Illness: The patient is a 57 M [] upper abdominal pain vomiting for days, indicates she is two-week status post Yang-en-Y gastric bypass surgery done by Dr. Jasmine at [facility]. Since discharge been having abdominal pain initially was the left side of the abdomen now it is in the anterior abdominal region to the point he cannot take meds minimal liquids and he is constantly spitting up small amounts of fluid or vomiting. He spoke with the office today and was asked to come to the hospital for evaluation, and for some type of special test, indicates he has a prior history for cardiac stent his cardiovascular status has been stable fact he believes he had a cardiac stress test preop workup for the bypass surgery, he is having loose bowel movements and making normal amounts of urine Physical Examination: [] 167/70 afebrile General, no distress resting comfortably HEENT is generally unremarkable The neck is supple no adenopathy Cardiovascular, regular rate and rhythm Lungs, clear bilateral Abdomen, soft multiple port sites to the anterior abdominal area, there is no signs of infection he has a pain to the mid epigastric area that extends to the left side of the abdomen there is no rebound guarding organomegaly, he has a large pannus he is a large gentleman, the majority of his pain is in the mid abdominal region Extremities, no clubbing cyanosis or edema Neurologic, awake alert answering questions appropriately moving all 4 extremities Test Results: [] Emergency Department Course and Treatment: [] Given all of the above we paged Dr. Jasmine at [facility] spoke with him via the OR staff he indicated the patient should receive 2 L of IV fluid if his workup was unremarkable it was safe to discharge him home to follow-up with the office tomorrow, he could not recall any special tests the patient required from the emergency department he will receive IV fluids screening labs CT of the abdomen with some oral contrast The patient's labs are all generally unremarkable, he took a small amount of oral contrast at this time the oral contrast abdominal pelvic CT is pending if this result is unremarkable the patient will be discharged home per instructions of Dr. Jasmine, I also explained to the patient if he does not feels if he is improved or if his condition changes he should feel comfortable presenting directly to [facility] to be evaluated by Dr. Jasmine surgical service there, he and the feel comfortable with discharge home and will follow-up as above Treatment Plan: [] Disposition: [] Pending CT abdomen but this will be checked by the afternoon physicians and the plan will be as above Impression: [] Abdominal pain, status post Yang-en-Y gastric bypass surgery This note was generated with [employer] dictation software. It may contain incorrect words, spelling, and punctuation that were not noted in review of the chart prior to signing ED Disposition - Plan for ED Patient: Chief Complaint: Nausea/Vomiting Referrals: Keli Bragg, STABLE HAND-C [Primary Care Provider] - What to do if you have Problems For any increased pain, shortness of breath, bleeding, nausea or vomiting, chest pain, or any unexpected problems, contact your Primary Care Provider. Call [email or web address] ([phone]) or report to the closest Emergency Room. Call 911 if necessary. 02/16/18 1621 <Electronically signed by Florence Izquierdo MD> Date Florence Izquierdo MD Cosigner Signature (If Indicated): Date CC: Keli SWEENEY DISCHARGE INSTRUCTION Observed: 02/16/2018 Status: F Source: [place] 4:18 PM [facility] REPOSITORY [facility] Medical Records Department [address] [address] Discharge Instruction 02/16/18 1616 MR#: [id number] Acct: [id number] Name: BRADLEY KEYS Rep #: [id number] : 1960 57 From: Florence Izquierdo MD PCP: Keli Kennedy Status: REG ER ED Disposition - Plan for ED Patient: Chief Complaint: Nausea/Vomiting Instructions: ED Nausea Vomiting, Abdominal Pain, ED Abdominal Pain Unkn Cause Prescriptions: Ondansetron [Zofran Odt] 4 mg PO Q8H PRN PRN #10 tab PRN Reason: Nausea Referrals: Keli Bragg, STABLE HAND-C [Primary Care Provider] - What to do if you have Problems For any increased pain, shortness of breath, bleeding, nausea or vomiting, chest pain, or any unexpected problems, contact your Primary Care Provider. Call [facility] ([phone]) or report to the closest Emergency Room. Call 911 if necessary. 02/16/181617 <Electronically signed by Florence Izquierdo MD> Date Florence Izquierdo MD Cosigner Signature (If Indicated): Date CC: Keli SWEENEY CBC W/DIFF, AUTOMATED Collected: 02/16/2018 Status: F Source: [place] 2:40 PM [facility] REPOSITORY TYPE CODE TESTS RESULT OUT OF RANGE REFERENCE UNITS LAB L100.1000 4.4-11.0 K/mm3 Normal WBC 9.8 LAB L100.1200 4.6-6.2 M/mm3 Normal RBC 4.91 LAB L100.1300 13.0-16.5 g/dl Normal HGB 14.2 LAB L100.1400 40-54 % Normal HCT 42.9 LAB L100.1500 80-94 fL Normal MCV 87.4 LAB L100.1600 27.0-32.0 pg Normal MCH 28.9 LAB L100.1700 32-36 g/gl Normal MCHC 33.1 LAB L100.1810 11.6-14.6 % High RDW CV 14.9 LAB L100.1820 35.1-43.9 fl High RDW SD 47.6 LAB L100.1900 150-450 K/mm3 Normal PLT 249 LAB L100.2000 6.2-12.0 fl Normal MPV 10.9 LAB L100.2100 47-70 % High NEUT% 77.4 LAB L100.2200 19-41 % Low LY% 12.5 LAB L100.2300 0-10 % Normal MONO% 8.8 LAB L100.2400 0-5 % Normal EO% 0.9 LAB L100.2500 0-1 % Normal BASO% 0.2 LAB L100.2550 0.0-0.9 % Normal IM GRAN % 0.200 Result Comment: IG% - Immature Granulocytes (promyelocytes, myelocytes and metamyelocytes) > 1% indicates that a LEFT SHIFT is Present. LAB L100.2620 2.0-7.7 X10 3/uL Normal Absolute Neut 7.6 LAB L100.2720 0.83-4.51 X10 3/ul Normal Absolute Lymph 1.23 Performed By: #### L100.0100 #### [facility] [address] [place], [address] BASIC METABOLIC Collected: 02/16/2018 Status: F Source: [place] PROFILE ([facility]) 2:40 PM [facility] REPOSITORY TYPE CODE TESTS RESULT OUT OF RANGE REFERENCE UNITS LAB L501.0100 74-106 mg/dL High GLU 161 Result Comment: Fasting Glucose result greater than or equal to 126 mg/dL suggests DIABETES MELLITUS per A.D.A. criteria. Please note revised GLUCOSE reference range effective 2017. LAB L501.1000 7-18 mg/dL High BUN 21 LAB L501.1100 0.70-1.30 mg/dL High CREAT,SERUM 1.63 Result Comment: The validity of the calculated GFR AND GFRAA in patients over 70 years has not been determined. Clinical correlation is essential. LAB L501.1110 >60 mL/min Low EST GFR 47 Result Comment: Non- GFR Calc LAB L501.1115 >60 mL/min Low EST GFR - AA 56 Result Comment: GFR Calc LAB L501.1255 ml/min Normal Estimated CRCL 102.01 LAB L501.1300 10-20 RATIO BUN/CRE Normal 12.9 LAB L501.2200 8.5-10 mg/dL .1 CA Normal 9.1 LAB L501.5300 136-14 mmol/L 5 NA Normal 142 LAB L501.5600 3.5-5. mmol/L 1 K Normal 3.9 LAB L501.5900 98-107 mmol/L CL Normal 101 LAB L501.6100 21.0-3 mmol/L 2.0 CO2 Normal 27.0 LAB L501.6200 5-15 GAP Normal 14 Performed By: #### L500.2500, L500.3400, L501.2450, L501.4010 #### [facility] [address] [place], [place], [id number] LIVER PROFILE Collected: 02/16/2018 Status: F Source: [place] 2:40 PM [facility] REPOSITORY TYPE CODE TESTS RESULT OUT OF RANGE REFERENCE UNITS LAB L501.1500 6.4-8.2 g/dL Normal T PROT 7.6 LAB L501.1800 3.2-5.0 g/dL Normal ALB 3.7 LAB L501.1950 2.2-4.2 g/dL Normal GLOB 3.9 LAB L501.4100 15-37 U/L Low AST 10 LAB L501.4305 45-117 U/L Normal ALK P 84 LAB L501.4405 16-61 U/L Normal ALT 16 LAB L501.4600 0.20-1.00 mg/dL Normal T BILI 0.70 LAB L501.4700 0.00-0.30 mg/dL Normal D BILI 0.30 Performed By: #### L500.2500, L500.3400, L501.2450, L501.4010 #### [facility] [address] [place], [address] LIPASE Collected: 02/16/2018 Status: F Source: [place] 2:40 PM [facility] REPOSITORY TYPE CODE TESTS RESULT OUT OF RANGE REFERENCE UNITS LAB L501.2450 73-393 U/L Normal LIPASE 84 Performed By: #### L500.2500, L500.3400, L501.2450, L501.4010 #### [facility] [address] [place], [address] TROPONIN-I Collected: 02/16/2018 Status: F Source: [place] 2:40 PM [facility] REPOSITORY TYPE CODE TESTS RESULT OUT OF RANGE REFERENCE UNITS LAB L501.4010 <0.045 ng/mL Normal < 0.015 TROPONIN-I Result Comment: TROPONIN-I EXPECTED VALUES <0.045 Negative 0.045 - 0.590 Consistent with Cardiac Damage > OR = 0.600 Critical Value Not every elevated troponin is indicative of ME. These values should be used with clinical judgement in examining the patient's clinical picture for diagnosis. To establish a diagnosis of ME versus myocardial injury, there must be a demonstrated rise and/or fall in the troponin values, in addition to ischemic symptoms, EKG changes, new regional wall motion abnormality, and/or angiographical evidence. PLEASE NOTE: REFERENCE RANGES EDITED 17 Performed By: #### L500.2500, L500.3400, L501.2450, L501.4010 #### [facility] [address] [place], [address] ABDOMEN/PEL W ORAL CONT Observed: 02/16/2018 Status: F Source: [place] ONLY 2:31 PM [facility] REPOSITORY [facility] Imaging Services [address] [place] [address] Abdomen/Pel W ORAL Cont Only MR#: [id number] Acct: [id number] Name: BRADLEY KEYS Rep #: [id number] : 1960 M 57 From: Chico Santana MD PCP: Keli Kennedy Status: REG ER Study: Abdomen/Pel W ORAL Cont Only Date of Exam: 02/16/18 Exam# [id number] Ordering Dr: Florence Izquierdo MD STUDY: CT ABDOMEN AND PELVIS WITHOUT CONTRAST REASON FOR EXAM: Male, 57 years old. Vomiting. Gastric bypass RADIATION DOSAGE (If Supplied By Facility): CTDIvol = ( 17.58 ) mGy, DLP = ( 937.29 ) mGycm TECHNIQUE: Transaxial images were obtained from the dome of the diaphragm to the symphysis pubis with oral contrast, and without intravenous contrast. Sagittal and coronal images were reconstructed. Individualized dose optimization techniques were used for this CT. COMPARISON: None. FINDINGS: There is lower lung atelectasis.. The visualized portions of the heart are within normal limits. There is hepatomegaly with diffuse hepatic enlargement. Gallbladder is distended with mild pericholecystic fluid or edema. Normal spleen. Normal pancreas. Normal bilateral adrenal glands. Normal right kidney. Parapelvic cyst versus mild hydronephrosis of the left kidney. Postoperative changes of the stomach and small intestine. No dilated loops of bowel. Normal colon. The appendix is visualized and appears normal. There is atherosclerotic calcification of the abdominal aorta, without a demonstrated aneurysm. Normal inferior vena cava. Normal retroperitoneum. Normal urinary bladder. No free fluid in the abdomen or pelvis. Normal abdominal wall. Normal osseous structures. CT/Abdomen/Pel W ORAL Cont Only IMPRESSION: Gallbladder is distended with pericholecystic fluid or edema. Consider ultrasound to evaluate for potential stones. Postoperative changes of the stomach and small bowel. No obstruction. Electronically Signed: Chico Santana MD at 17:46 EST , Service support , CC: MD Franklin Izquierdo; Keli SWEENEY Medical Reception Specialist: Signed ENDOCRINOLOGY VISIT Observed: 02/09/2018 Status: F Source: [place] REPORT 1:37 PM [facility] REPOSITORY [facility] [address] [place] [address] OFFICE VISIT Date of Service: 02/09/18 MR#: [id number] Acct: [id number] Name: BRADLEY KEYS Rep #: [id number] : 1960 Provider: Ashtyn Reyes NP Age/Sex: 57/M Location: [facility] Status: Signed HPI History of present illness History of present illness Bradley is a 56 year old male who presents for follow up of diabetes type 2, Underwent gastric bypass surgery 2 weeks ago. Is now transitioning from pureed diet to soft diet. Has continued to check his BG for the most part 2-3 times daily. Currently taking no insulin, and alogliptin 25mg daily. Reports issues with constipation. Has discussed with his surgeon. Reports he is having difficulty drinking 64 ox water each day. At time of visit: -Pt denies symptoms of hypertensive emergency (CP,SOB,FONSECA, or blurred vision) and hypotension(dizziness or lightheadedness) -Pt denies symptoms of hypoglycemia ( sweaty, confusion, anxiety, tremor, hunger, palpitations) and hyperglycemia ( polydipsia, polyuria) -Pt denies potential medication adverse effect. Hypoglycemia Aware of hypoglycemia: When awake Able to self treat low BG: Yes Frequent low Blood sugar: No Has supply of glucagon: Yes Since our last visit he denies excessive thirst, increased frequency of urination, chest pain or dyspnea. Follows a pureed diabetic diet, Is compliant with medication and is tolerating without side effects. SMBG 3 times daily 88-140 Exam Const General: cooperative Nutritional Appearance: overweight Orientation: oriented x3 HENMT Head: normal to inspection, atraumatic Ears: hearing grossly normal bilaterally Mouth: oral mucosae normal, moist mucous membranes Eyes General: appearance normal, both eyes and all related structures Sclera: sclerae normal Pupils: PERRL Neck Neck: normal visual inspection Neck mass: No Chest Chest palpation AND inspection: deferred Resp Effort AND Inspection: normal respiratory effort, able to speak in complete sentences, symmetric chest movement Auscultation: Bilateral: Clear to Auscultation Cardio Rate: regular rate Rhythm: regular rhythm Heart Sounds: S1 normal, S2 normal GI Inspection: normal to inspection Auscultation: normal bowel sounds General: deferred Skin General: healing well from surgical areas on abdomen. Diabetic Foot Pulses: L dorsalis pedis pulse: diminished, R dorsalis pedis pulse: diminished Monofilament test: Left foot: abnormal, Right foot: abnormal Neuro General: oriented x3, moves all extremities Cranial Nerves: hearing normal Cognition: normal cognition Speech: speech normal Gait: normal gait Sensory Exam: no sensory deficits noted Extrem General: normal exam except as noted (Has pedal edema) Psych Appearance: grossly normal Mood: congruent mood Affect: normal affect Speech and Movement: speech and movement normal Thought Process: normal Thought Content: normal Judgment: fair Type: type 2 Weight and fatigue symptoms: Reports weight loss; denies snoring Cardiopulmonary symptoms: Denies chest pain at rest, dyspnea on exertion, lightheadedness or myalgias GI symptoms: Reports nausea/dyspepsia and vomiting; denies constipation or diarrhea Skin and extremity symptoms: Denies erectile dysfunction Other symptoms: Denies blurry vision or change in vision Pertinent visit history: Reports recent hospital admission Self monitoring: Yes Dietary compliance: Diabetes: good Diabetes education in past year: Yes Glucose testing: demonstrates correct use of meter, understands testing schedule Sick day education - understands ketone testing: Yes Physical activity: sedentary lifestyle Intake Vital Signs02/09/18 Body Mass Index (BMI) 54.1 Intake Visit Reasons: 3 MO FU Closer On Required: No Accompanied by: Allergies celecoxib [From Celebrex] Allergy (Intermediate, Verified 02/09/18 12:51) Rash Medications Citalopram Hydrobromide [Citalopram HBr] 20 mg PO DAILY 01/31/17 [History Confirmed 12/05/17] Nitroglycerin [Nitrostat] 0.4 mg SUBLINGUAL Q5M PRN 01/31/17 [History Confirmed 12/05/17] Rosuvastatin Calcium [Crestor] 40 mg PO DAILY 01/31/17 [History Confirmed 12/05/17] potassium chloride ER 20 mEq tablet,extended release(part/cryst) 20 meq PO DAILY #30 tab 06/04/17 [Rx Confirmed 12/05/17] alogliptin 25 mg tablet 25 mg PO DAILY 09/25/17 [History Confirmed 12/05/17] Docusate Sodium [Colace] 100 mg PO BID 10/31/17 [History Confirmed 12/05/17] Omeprazole [Prilosec] 20 mg PO DAILY 11/24/17 [History Confirmed 12/05/17] levothyroxine 100 mcg tablet 100 mcg PO QHS #30 tab 12/30/17 [Rx] aspirin 81 mg tablet,delayed release 81 mg PO DAILY #90 tab 01/12/18 [Rx] furosemide 40 mg tablet 40 mg PO DAILY tab 01/30/18 [History Confirmed 01/30/18] losartan 50 mg tablet 50 mg PO DAILY #30 tab 01/30/18 [Rx Confirmed 01/30/18] metoprolol tartrate 25 mg tablet 25 mg PO BID #60 tab 01/30/18 [Rx Confirmed 01/30/18] oxycodone-acetaminophen 5 mg-325 mg tablet 2 tab PO Q6H 01/30/18 [History Confirmed 01/30/18] promethazine 25 mg tablet 25 mg PO Q6H PRN 01/30/18 [History Confirmed 01/30/18] Nurse's Note: blood sugars : low : high : PFSH Medical History Atherosclerotic heart disease of [place] coronary artery without angina pectoris (Chronic) HTN (hypertension) (Chronic) Hyperlipidemia (Chronic) HTN (hypertension) (Chronic) Diabetes mellitus type 2 in obese (Chronic) Hiatal hernia (Acute) Allergy-induced asthma (Chronic) CAD (coronary artery disease) (Chronic) Chronic diarrhea (Chronic) Diabetes type 2, uncontrolled (Chronic) Obesity (Chronic) Sleep apnea (Chronic) Surgical History History of coronary artery stent placement (Chronic) Status post bariatric surgery (Acute) H/O hemorrhoidectomy (Chronic) removal of enlarged lymph node (Chronic) removal of lypoma (Chronic) Family History Mother CAD (coronary artery disease) Diabetes Father CAD (coronary artery disease) Hypertension Sister CAD (coronary artery disease) Hypertension Social History Smoking Status: Never smoker second hand exposure: No alcohol intake: never substance use type: does not use ROS Const Constitutional: Positive for change in appetite; no anorexia, body ache, chills, fatigue, fever(s), frequent falls, decreased energy, malaise, night sweats, weakness, weight change, sleep problems, abnormal sleep pattern, other, headache(s), snoring or excessive sweating Eyes Eyes: No blurry vision, change in vision, double vision, discharge, dry eyes, bulging eyes, floaters, visual disturbances, eye pain, light sensitivity, spots in vision, tunnel vision or other ENT ENT: No abnormal hearing, ear pain, ear discharge, ear pressure, hearing loss, tinnitus, dizziness/vertigo, balance problems, nosebleed/epistaxis, nasal congestion, nasal obstruction, nose pain, sinus pressure, sinus pain, nasal discharge, post nasal drip, headache(s), facial pain, dental pain, dry mouth, bad breath, hoarseness, lip swelling, mouth lesions, mouth pain, sore throat, tongue swelling, throat swelling, other, difficulty swallowing or neck pain Resp Respiratory: Positive for cough; no change in phlegm color, chest congestion, excessive phlegm production, hemoptysis, pain on inspiration, shortness of breath, pain with cough, snoring, stridor, wheezing or other Cardio Cardiology: Positive for generalized swelling; no chest pain at rest, chest pain with exertion, leg pain with exertion, excessive sweating, shortness of breath, dyspnea on exertion, irregular heart rhythm, lightheadedness, orthopnea, radiating jaw, neck or arm pain, fast heart rate, slow heart rate, palpitations or other Gastro GI: Positive for abdominal pain, nausea/dyspepsia and vomiting; no belching, bloating, change in bowel habits, change in stool character, coffee ground emesis, constipation, cramping, diarrhea, heartburn, difficulty swallowing, feeling full early, excessive flatus, incontinent of stools, Vomiting blood/hematemesis, blood in stool, loose stools, Black,tarry stools, pain with swallowing or other Genitourinary Male: No difficulty urinating, burning urination, painful urination, urinary incontinence, urinary frequency, urinary urgency, urinary hesitancy, urinary retention, blood in urine, Frequent nighttime urination/ nocturia, post void dribbling, suprapubic fullness, side pain, sexual problems, genital lesions, genital itching, erectile dysfunction, penile discharge, difficulty with ejaculations, blood in semen, scrotal swelling, testicle lump, testicle pain or other Musc Musculoskeletal: No abnormal walking, joint pain, back pain, deformity, joint swelling, limited range of motion, loss of height, muscle cramps, muscle weakness, decreased muscle mass, body aches, neck pain, numbness, radiating pain into limb, stiffness, tingling or other Skin Skin: Positive for wounds; no acne, hair loss, change in hair, nail changes, boil, change in skin color, dry skin, redness, excessive hair growth, yellowing of the skin, lesions, itching, rash, skin pain, skin ulcer, sores, skin swelling or other Breast Breast: No other Neuro Neurology: No frequent falls, weakness, visual disturbances, abnormal hearing, headache(s), abnormal walking, numbness or tingling Psych Psychiatric: No abnormal sleep pattern, Positive for change in appetite Endo Endocrine: No fatigue, other or excessive sweating Aller/Imm Allergy/Immunologic: No lip swelling, tongue swelling, throat swelling, wheezing or itchy eyes Assessment AND Plan Problems 1. Diabetes mellitus type 2 in obese E11.69; E66.9 2. Essential hypertension I10 3. Hypothyroidism (acquired) E03.9 Plan Diabetes: Not taking insulin at this time. BG remain controlled. Is trying to walk as instructed. Some issues with constipation. Finding it difficult to consume as much water each day as he was instructed to do. Is now starting soft diet. Will call office if BG readings become elevated for appointment following morning. RTC 1 month Labs ordered for blood draw early February. Has follow up scheduled with surgeon. HTN: BP controlled Hypothyroid: Will recheck labs. Taking medication as directed. Orders Orders: Plan Detail Additional Comments 1. Please schedule follow up in 3 months. 2. Lab work one week before appointment. 3. Discussed importance of regular exercise and recommend starting or continuing a regular exercise program for good health. 4. The patient was encouraged to lose weight for good health 5. The importance of monitoring blood sugar regularly was reviewed. 6. The importance of monitoring the HBA1c level regularly was reviewed. 7. The importance of prper foot care and regularly checking feet to prevent sores and loss of limbs was reviewed. 8. The importance of keeping BP at or below 130/80 to prevent stroke, heart attacks, kidney failure, blindness was reviewed. Spent approximately 30 minutes with patient with over 50% of time spent in discussion and counseling regarding medication adjustment, symptoms and treatment of hypoglycemia, diet adherence, and checking BG before driving. Coding Level of Care Code Off vis,est,level 4 Diagnoses Diabetes mellitus type 2 in obese E11.69; E66.9 Essential hypertension I10 Hypertension type: essential hypertension Hypothyroidism (acquired) E03.9 02/09/18 1337 <Electronically signed by Ashtyn J Shook STABLE HAND-C> Date Ashtyn Reyes STABLE HAND-C Cosigner Signature: Date (if applicable) CC: GLUCOSE,BEDSIDE Collected: 01/28/2018 Status: F Source: [facility] 12:53 PM SYSTEM REPOSITORY TYPE CODE TESTS RESULT OUT OF RANGE REFERENCE UNITS LAB BGLU 70-100 mg/dL High 145 Glucose,Beds carolyn Result Comment: Test performed by glucose meter. Results may be 10%-15% lower than serum/plasma values. (CLIA ID [id number]) Performed By: #### BGLU #### [facility] [address] [place] [id number] DISCHARGE SUMMARY Observed: 01/28/2018 Status: F Source: [facility] 9:16 AM SYSTEM REPOSITORY Discharge Summary Bradley Keys : 1960 ADMIT DATE: 01/26/2018 DISCHARGE DATE: 01/28/18 PRIMARY CARE PHYSICIAN: KELI BRAGG VISIT STATUS: Admission DISCHARGE DIAGNOSES: Principal Problem: Hepatic steatosis Active Problems: Essential hypertension MARKY treated with BiPAP Type 2 diabetes mellitus with complication (HCC) High cholesterol Morbid obesity (HCC) Hiatal hernia Schatzki's ring Gastroesophageal reflux disease with esophagitis Morbid obesity with BMI of 50.0-59.9, adult (HCC) Resolved Problems: * No resolved hospital problems. * HOSPITAL COURSE: Patient was taken to the OR on 11 for a laparoscopic yang-en-y gastric bypass. Patient tolerated the procedure well without any complications and was admitted to a general surgical floor in stable condition. An UGI was obtained on POD #1 which did not identify any extravasation or leaks. Diet was advanced to a bariatric clear liquid diet which the patient tolerated. The packing was removed on POD#2. Patient was discharged in stable condition on POD#2. DISCHARGE MEDICATIONS: Bradley Keys Home Medication Instructions EMILEE:[id number] Printed on:01/29/18 1011 Medication Information alogliptin (NESINA) 25 MG TABS tablet Take 25 mg by mouth daily ASPIRIN ADULT LOW STRENGTH 81 MG EC tablet TAKE 1 TABLET EVERY DAY- Preventative BiPAP Machine MISC by Does not apply route Cholecalciferol (VITAMIN D3) 18029 units CAPS TAKE 1 CAPSULE every week- Supplement; Mondays citalopram (CELEXA) 20 MG tablet TAKE 1 TABLET EVERY DAY- Depression Docusate Sodium (COLACE PO) Take 4 tablets by mouth daily [facility] UNIFINE PENTIPS 31G X 8 MM MISC DIRECTED FOUR TIMES DAILY with insulin dose enoxaparin (LOVENOX) 60 MG/0.6ML injection Inject 0.6 mLs into the skin 2 times daily for 10 days FREESTYLE LITE strip use to test up to 4 times daily furosemide (LASIX) 40 MG tablet TAKE 2 TABLET BY MOUTH DAILY- Water pill insulin aspart protamine-insulin aspart (NOVOLOG 70/30) (70- 30) 100 UNIT/ML injection Inject 15 Units into the skin 2 times daily isosorbide mononitrate (IMDUR) 30 MG extended release tablet Take 30 mg by mouth daily levothyroxine (SYNTHROID) 100 MCG tablet Take 100 mcg by mouth nightly losartan (COZAAR) 25 MG tablet Take 25 mg by mouth daily metFORMIN (GLUCOPHAGE-XR) 500 MG extended release tablet TAKE 1 TABLET DAILY with the first meal of the day metoprolol tartrate (LOPRESSOR) 25 MG tablet Take 25 mg by mouth 2 times daily Multiple Vitamins-Minerals (THERAPEUTIC MULTIVITAMIN-MINERALS) tablet Take 1 tablet by mouth daily Nasal Dilators (PROVENT SLEEP APNEA THERAPY) MISC BIPAP 02/21, heated humidifier, mask, supplies omeprazole (PRILOSEC) 20 MG delayed release capsule Take 1 capsule by mouth daily oxyCODONE-acetaminophen (PERCOCET) 5-325 MG per tablet Take 1-2 tablets by mouth every 6 hours as needed for Pain for up to 7 days. Intended supply: 7 days. Take lowest dose possible to manage pain. potassium chloride (KLOR-CON M) 20 MEQ extended release tablet TAKE 1 TABLET BY MOUTH EVERY DAY-Supplement promethazine (PHENERGAN) 25 MG tablet Take 1 tablet by mouth every 6 hours as needed for Nausea rosuvastatin (CRESTOR) 40 MG tablet TAKE 1 TABLET DAILY TRESIBA FLEXTOUCH 100 UNIT/ML SOPN inject 30 UNITS EVERY IN THE MORNING and 30 UNITS EVERY IN THE EVENING; currently taking 30 units morning and night because sugars have been low; normally takes 52 units morning and night DIET: bariatric clears ACTIVITY: No restriction. No heavy lifting. up with assist No driving while taking pain medication SIGNIFICANT DIAGNOSTIC STUDIES: UGI-normal COMPLEXITY OF FOLLOW UP: [x] Moderate Complexity: follow up within 7-14 calendar days (09352) PENDING STUDIES: none RECOMMENDED NEXT STEPS: Follow-up for drain removal as instructed F/u 1 week w/ Dr. Cullen DISPOSITION: Home SIGNED: Davi Storey MD 01/29/2018, 10:11 AM GLUCOSE,BEDSIDE Collected: 01/28/2018 Status: F Source: [facility] 7:33 AM SYSTEM REPOSITORY TYPE CODE TESTS RESULT OUT OF RANGE REFERENCE UNITS LAB BGLU 70-100 mg/dL High 162 Glucose,Beds carolyn Result Comment: Test performed by glucose meter. Results may be 10%-15% lower than serum/plasma values. (CLIA ID [id number]) Performed By: #### BGLU #### [facility] [employer] [facility] [address] [place] [phone] HEMOGRAM W/ AUTODIFF Collected: 01/28/2018 Status: F Source: [facility] 4:15 AM SYSTEM REPOSITORY TYPE CODE TESTS RESULT OUT OF REFERENCE UNITS RANGE LAB IWBC 3.6-10.7 10*3/uL WBC High 13.6 LAB RBC 4.40-5.90 10*6/uL Low RBC 4.08 LAB HGB 13.0-18.0 g/dL Low Hemoglobin 12.0 LAB HCT 40.0-52.0 % Low Hematocrit 35.2 LAB MCV 80.0-98.0 fL MCV Normal 86.4 LAB MCH 26.0-34.0 pg MCH Normal 29.5 LAB MCHC 32.0-36.0 % MCHC Normal 34.1 LAB RDW 11.5-14.5 % RDW High 14.8 LAB PLT 140-440 10*3/uL Platelet Normal 199 LAB MPV 7.4-10.4 fL MPV Normal 8.9 LAB GRAN% 40.0-80.0 % Granulocytes Normal 76.4 LAB LYMP% 20.0-40.0 % Low Lymphocytes 17.0 LAB MONO% 2.0-10.0 % Monocytes Normal 5.5 LAB EOS% 1.0-6.0 % Low Eosinophils 0.5 LAB BAS% 0.0-2.0 % Basophils Normal 0.6 LAB ANC 1.8-7.0 10*3/uL Abs High Neutrophile Cnt 10.4 LAB ALC 1.0-4.3 10*3/uL Abs Lymph Cnt Normal 2.3 LAB AMC 0.0-0.8 10*3/uL Abs Monocyte Normal Cnt 0.7 LAB AEC 0.0-0.5 10*3/uL Abs Eosin Cnt Normal 0.1 LAB ABC 0.0-0.2 10*3/uL Abs Baso Cnt Normal 0.1 Performed By: #### HEMSARAH, BMP3, MG3 #### [facility] [address] [place] [phone] BASIC METABOLIC PANEL Collected: 01/28/2018 Status: F Source: [facility] 4:15 AM SYSTEM REPOSITORY TYPE CODE TESTS RESULT OUT OF RANGE REFERENCE UNITS LAB NA3 137-145 mmol/L Low Sodium 136 LAB K3 3.5-5.1 mmol/L Normal Potassium 4.5 LAB CL3 98-107 mmol/L Chloride Normal 104 LAB CO23 22-30 mmol/L Carbon Normal Dioxide 27 LAB ANIN3 NA Anion Gap 6 LAB GLUC3 70-100 mg/dL High Glucose 154 LAB BUN3 7-20 mg/dL High Urea Nitrogen 37 LAB CRET3 0.52-1.25 mg/dL Normal Creatinine 1.05 LAB GF3BR >60 mL/min eGFR > 60.0 LAB GF3WR >60 mL/min eGFR OTHER > 60.0 Result Comment: Source- MDRD equation with creatinine calibration to IDMS(NKDEP) eGFR not recommended for drug dose adjustment LAB CA3 8.4-10.4 mg/dL Normal Calcium 8.5 Performed By: #### HEMDF, BMP3, MG3 #### [facility] [address] [place] [phone] MAGNESIUM Collected: 01/28/2018 Status: F Source: [facility] 4:15 AM SYSTEM REPOSITORY TYPE CODE TESTS RESULT OUT OF REFERENCE UNITS RANGE LAB MG3 1.6-2.3 mg/dL High Magnesium 2.5 Performed By: #### HEMDF, BMP3, MG3 #### [facility] [address] [place] [address] GLUCOSE,BEDSIDE Collected: 01/27/2018 Status: F Source: [facility] 9:01 PM SYSTEM REPOSITORY TYPE CODE TESTS RESULT OUT OF RANGE REFERENCE UNITS LAB BGLU 70-100 mg/dL High 185 Glucose,Beds carolyn Result Comment: Test performed by glucose meter. Results may be 10%-15% lower than serum/plasma values. (CLIA ID [id number]) Performed By: #### BGLU #### [facility] [address] [place] [address] GLUCOSE,BEDSIDE Collected: 01/27/2018 Status: F Source: [facility] 6:38 PM SYSTEM REPOSITORY TYPE CODE TESTS RESULT OUT OF RANGE REFERENCE UNITS LAB BGLU 70-100 mg/dL High 183 Glucose,Beds carolyn Result Comment: Test performed by glucose meter. Results may be 10%-15% lower than serum/plasma values. (CLIA ID [id number]) Performed By: #### BGLU #### [facility] [address] [place], [place] GLUCOSE,BEDSIDE Collected: 01/27/2018 Status: F Source: [facility] 1:02 PM SYSTEM REPOSITORY TYPE CODE TESTS RESULT OUT OF RANGE REFERENCE UNITS LAB BGLU 70-100 mg/dL High 216 Glucose,Beds carolyn Result Comment: Test performed by glucose meter. Results may be 10%-15% lower than serum/plasma values. (CLIA ID [id number]) Performed By: #### BGLU #### [facility] [address] [place], [place] GLUCOSE,BEDSIDE Collected: 01/27/2018 Status: F Source: [facility] 9:10 AM SYSTEM REPOSITORY TYPE CODE TESTS RESULT OUT OF RANGE REFERENCE UNITS LAB BGLU 70-100 mg/dL High 274 Glucose,Beds carolyn Result Comment: Test performed by glucose meter. Results may be 10%-15% lower than serum/plasma values. (CLIA ID [id number]) Performed By: #### BGLU #### [facility] [address] [place], [place] RF UGI W/O KUB W/ Observed: 01/27/2018 Status: F Source: [facility] OR W/O DELAY FLM 8:06 AM SYSTEM REPOSITORY Patient Name: BRADLEY KEYS Fluoroscopy Exam Date/Time 01/27/2018 08:09:33 EST Exam RF UGI w/o KUB and w/ or w/o Delay Flm Ordering Physician MD BARRIENTOS KELLEN Accession Number [id number] [facility] Codes 24881 () Reason For Exam S/p LRYGB Report GASTROGRAFIN UPPER GI SERIES CLINICAL INDICATION: S/P gastric bypass and hiatal hernia repair, postop, day one. Evaluate for leak. COMPARISON: None TECHNIQUE: Gastrografin was administered in the upright position. FLUOROSCOPY TIME: 0.6 minutes FLUOROSCOPIC IMAGES: 27 fluoroscopic spot images were obtained. FINDINGS: Gastrografin was administered orally to the patient in the upright position. The esophagus is of normal course and caliber with no evidence of perforation or extravasation. The gastrojejunostomy is patent with no sign of extravasation or obstruction. The contrast empties readily from the gastric pouch into the jejunum. The jejunal jejunostomy is identified and shows free flow of contrast beyond the metallic clips that identify the anastomosis. There is no sign of obstruction. A surgical drain is noted in the left upper quadrant. IMPRESSION: Post-op changes consistent with gastric bypass surgery. No sign of extravasation or obstruction. Report Dictated on Final Dictated: 01/27/2018 7:21 am Dictating Physician: MD POE B NELSON Signed Date and Time: 01/27/2018 11:51 am Signed by: MD POE B NELSON Transcribed Date and Time: 01/27/2018 8:06 HEMOGRAM W/ AUTODIFF Collected: 01/27/2018 Status: F Source: [facility] 4:33 AM SYSTEM REPOSITORY TYPE CODE TESTS RESULT OUT OF REFERENCE UNITS RANGE LAB IWBC 3.6-10.7 10*3/uL WBC High 18.2 LAB RBC 4.40-5.90 10*6/uL RBC Normal 4.52 LAB HGB 13.0-18.0 g/dL Hemoglobin Normal 13.3 LAB HCT 40.0-52.0 % Low Hematocrit 38.6 LAB MCV 80.0-98.0 fL MCV Normal 85.4 LAB MCH 26.0-34.0 pg MCH Normal 29.5 LAB MCHC 32.0-36.0 % MCHC Normal 34.5 LAB RDW 11.5-14.5 % RDW High 14.6 LAB PLT 140-440 10*3/uL Platelet Normal 192 LAB MPV 7.4-10.4 fL MPV Normal 8.9 LAB GRAN% 40.0-80.0 % Granulocytes High 90.3 LAB LYMP% 20.0-40.0 % Low Lymphocytes 4.8 LAB MONO% 2.0-10.0 % Monocytes Normal 4.6 LAB EOS% 1.0-6.0 % Low Eosinophils 0.0 LAB BAS% 0.0-2.0 % Basophils Normal 0.3 LAB ANC 1.8-7.0 10*3/uL Abs High Neutrophile Cnt 16.4 LAB ALC 1.0-4.3 10*3/uL Low Abs Lymph Cnt 0.9 LAB AMC 0.0-0.8 10*3/uL Abs Monocyte Normal Cnt 0.8 LAB AEC 0.0-0.5 10*3/uL Abs Eosin Cnt Normal 0.0 LAB ABC 0.0-0.2 10*3/uL Abs Baso Cnt Normal 0.1 Performed By: #### HEMDF, BMP3, MG3, CK3 #### [employer] [address] [phone] BASIC METABOLIC PANEL Collected: 01/27/2018 Status: F Source: [facility] 4:33 AM SYSTEM REPOSITORY TYPE CODE TESTS RESULT OUT OF RANGE REFERENCE UNITS LAB NA3 137-145 mmol/L Low Sodium 133 LAB K3 3.5-5.1 mmol/L Normal Potassium 4.7 LAB CL3 98-107 mmol/L Chloride Normal 101 LAB CO23 22-30 mmol/L Carbon Normal Dioxide 25 LAB ANIN3 NA Anion Gap 8 LAB GLUC3 70-100 mg/dL High Glucose 299 LAB BUN3 7-20 mg/dL High Urea Nitrogen 30 LAB CRET3 0.52-1.25 mg/dL Normal Creatinine 0.84 LAB GF3BR >60 mL/min eGFR > 60.0 LAB GF3WR >60 mL/min eGFR OTHER > 60.0 Result Comment: Source- MDRD equation with creatinine calibration to IDMS(NKDEP) eGFR not recommended for drug dose adjustment LAB CA3 8.4-10.4 mg/dL Normal Calcium 9.0 Performed By: #### HEMDF, BMP3, MG3, CK3 #### [facility] [address] [place], [place] MAGNESIUM Collected: 01/27/2018 Status: F Source: [facility] 4:33 AM SYSTEM REPOSITORY TYPE CODE TESTS RESULT OUT OF RANGE REFERENCE UNITS LAB MG3 1.6-2.3 mg/dL Normal Magnesium 2.2 Performed By: #### HEMDF, BMP3, MG3, CK3 #### [facility] [place], [place] CK Collected: 01/27/2018 Status: F Source: [facility] 4:33 AM SYSTEM REPOSITORY TYPE CODE TESTS RESULT OUT OF RANGE REFERENCE UNITS LAB CK3 30-170 U/L High CK 262 Performed By: #### HEMDF, BMP3, MG3, CK3 #### [facility] [address] [place] GLUCOSE,BEDSIDE Collected: 01/26/2018 Status: F Source: [facility] 8:44 PM SYSTEM REPOSITORY TYPE CODE TESTS RESULT OUT OF RANGE REFERENCE UNITS LAB BGLU 70-100 mg/dL High 265 Glucose,Beds carolyn Result Comment: Test performed by glucose meter. Results may be 10%-15% lower than serum/plasma values. (CLIA ID [id number]) Performed By: #### BGLU #### [facility] [place], [place] GLUCOSE,BEDSIDE Collected: 01/26/2018 Status: F Source: [facility] 4:07 PM SYSTEM REPOSITORY TYPE CODE TESTS RESULT OUT OF RANGE REFERENCE UNITS LAB BGLU 70-100 mg/dL High 226 Glucose,Beds carolyn Result Comment: Test performed by glucose meter. Results may be 10%-15% lower than serum/plasma values. (CLIA ID [id number]) Performed By: #### BGLU #### [facility] [place], [place] HEMOGRAM Collected: 01/26/2018 Status: F Source: [facility] 1:10 PM SYSTEM REPOSITORY TYPE CODE TESTS RESULT OUT OF RANGE REFERENCE UNITS LAB IWBC 3.6-10.7 10*3/uL High WBC 15.3 LAB RBC 4.40-5.90 10*6/uL RBC Normal 4.52 LAB HGB 13.0-18.0 g/dL Normal Hemoglobin 13.5 LAB HCT 40.0-52.0 % Low Hematocrit 38.5 LAB MCV 80.0-98.0 fL MCV Normal 85.2 LAB MCH 26.0-34.0 pg MCH Normal 29.9 LAB MCHC 32.0-36.0 % MCHC Normal 35.1 LAB RDW 11.5-14.5 % RDW Normal 14.3 LAB PLT 140-440 10*3/uL Platelet Normal 197 LAB MPV 7.4-10.4 fL MPV Normal 9.1 Performed By: #### HEMOG, MG3, CK3, BMP3, PHOS3 #### [employer] [address] [phone] MAGNESIUM Collected: 01/26/2018 Status: F Source: [facility] 1:10 PM SYSTEM REPOSITORY TYPE CODE TESTS RESULT OUT OF RANGE REFERENCE UNITS LAB MG3 1.6-2.3 mg/dL Normal Magnesium 2.3 Performed By: #### HEMOG, MG3, CK3, BMP3, PHOS3 #### [facility] [address] [place] [phone] CK Collected: 01/26/2018 Status: F Source: [facility] 1:10 PM SYSTEM REPOSITORY TYPE CODE TESTS RESULT OUT OF RANGE REFERENCE UNITS LAB CK3 30-170 U/L High CK 306 Performed By: #### HEMOG, MG3, CK3, BMP3, PHOS3 #### [facility] [address] [place] [phone] BASIC METABOLIC PANEL Collected: 01/26/2018 Status: F Source: [facility] 1:10 PM SYSTEM REPOSITORY TYPE CODE TESTS RESULT OUT OF RANGE REFERENCE UNITS LAB NA3 137-145 mmol/L Sodium Normal 137 LAB K3 3.5-5.1 mmol/L Normal Potassium 4.3 LAB CL3 98-107 mmol/L Chloride Normal 100 LAB CO23 22-30 mmol/L Carbon Normal Dioxide 26 LAB ANIN3 NA Anion Gap 12 LAB GLUC3 70-100 mg/dL High Glucose 234 LAB BUN3 7-20 mg/dL High Urea Nitrogen 24 LAB CRET3 0.52-1.25 mg/dL Normal Creatinine 0.86 LAB GF3BR >60 mL/min eGFR > 60.0 LAB GF3WR >60 mL/min eGFR OTHER > 60.0 Result Comment: Source- MDRD equation with creatinine calibration to IDMS(NKDEP) eGFR not recommended for drug dose adjustment LAB CA3 8.4-10.4 mg/dL Normal Calcium 9.2 Performed By: #### HEMOG, MG3, CK3, BMP3, PHOS3 #### [facility] [address] [place] [phone] PHOSPHORUS Collected: 01/26/2018 Status: F Source: [facility] 1:10 PM SYSTEM REPOSITORY TYPE CODE TESTS RESULT OUT OF REFERENCE UNITS RANGE LAB PHOS3 2.5-4.5 mg/dL High Phosphorus 5.0 Performed By: #### HEMOG, MG3, CK3, BMP3, PHOS3 #### [facility] [address] [place] [phone] GLUCOSE,BEDSIDE Collected: 01/26/2018 Status: F Source: [facility] 12:55 PM SYSTEM REPOSITORY TYPE CODE TESTS RESULT OUT OF RANGE REFERENCE UNITS LAB BGLU 70-100 mg/dL High 232 Glucose,Beds carolyn Result Comment: Test performed by glucose meter. Results may be 10%-15% lower than serum/plasma values. (CLIA ID [id number]) Performed By: #### BGLU #### [employer] [address] [phone] Observed: 01/26/2018 Status: F Source: [facility] SURGICAL PATHOLOGY 11:27 AM SYSTEM REPOSITORY [id number] [facility] PATHOLOGY AND LABORATORY MEDICINE [address] [place] [id number] FINAL SURGICAL PATHOLOGY REPORT NAME: BRADLEY KEYS : 1960 57 Y Berenice [place] NO.: [id number] LOCATION: I 1405 01 PROCEDURE 01/26/2018 DATE: SURGEON: HARMONY CULLEN M.D. RECEIVED 01/26/2018 DATE: ATTENDING: HARMONY CULLEN M.D. REPORT DATE: 01/27/2018 COPIES TO: DIAGNOSIS: LIVER, WEDGE BIOPSY - MILD STEATOSIS (GRADE 1) Microscopic description: Sections demonstrate an intact liver architecture with mild macrovesicular steatosis (10%). There is no evidence of ballooning degeneration, lobular activity, or Harriett's hyaline. The portal tracts contain all normal structures and no significant inflammatory infiltrate. Special stains (iron and trichrome) are negative for increased iron storage and fibrosis, respectively. JAW/[id number] <Sign Out Dr. Mayo> STAS CHAPPELL M.D. CLINICAL INFORMATION: Morbid obesity SPECIMEN: LIVER NEEDLE OR WEDGE BIOPSY, MEDICAL GROSS DESCRIPTION: Liver biopsy Received in formalin are three red-brown tissue segments measuring 0.5 to 0.7 cm. Submitted in toto. (3 ns, 1) JCK/KMS1 Disclaimer: The following statement applies to all immunohistochemistry, in situ hybridization, molecular studies, and immunofluorescence testing. The use of one or more reagents in the above tests is regulated as an analyte specific reagent (ASR). These tests were developed and their performance characteristics determined by the clinical laboratories of [facility]. They have not been cleared by the US Food and Drug Administration (FDA). The FDA has determined that such clearance or approval is not necessary. All the above immunostains were performed on paraffin embedded tissue. Appropriate positive and negative controls (where applicable) were run in parallel with the patient's specimen; these controls showed expected staining pattern, with acceptable intensity of staining. Immunohistochemical assays have not been validated on decalcified tissues. Results should be interpreted with caution given the raised possibility of false negativity on decalcified specimens. Professional Performing Location: [address] [address]. DEPARTMENT OF PATHOLOGY AND LABORATORY MEDICINE [place], [place] [address] OP NOTE Observed: 01/26/2018 Status: F Source: [facility] 9:54 AM SYSTEM REPOSITORY OPERATIVE NOTE DATE OF PROCEDURE: 01/26/2018 SURGEON: Harmony Cullen FIBERGLASS CONTAINER WINDING OPERATOR: Hemalatha Barrientos MD PREOPERATIVE DIAGNOSIS: ? DM ? MARKY ? HTN ? Hiatal Hernia ? Hepatic Steatosis ? Morbid Obesity POSTOPERATIVE DIAGNOSIS: ? DM ? MARKY ? HTN ? Hiatal Hernia ? Hepatic Steatosis ? Morbid Obesity OPERATION: ? Laparoscopic Yang-en-Y gastric bypass ? Laparoscopic Hiatal Hernia repair ? Laparoscopic Liver Biopsy ? Upper Gastrointestinal Endoscopy ANESTHESIA: General anesthesia ESTIMATED BLOOD LOSS: Minimal. COMPLICATIONS: None SPECIMENS: Liver Biopsy PREOPERATIVE MEDICATIONS: Ancef, Heparin HISTORY: The patient is a 57 y.o. year old male with history of morbid obesity and a BMI of Body mass index is 52.46 kg/m?. CONSENT: The patient was seen and evaluated in the office setting where the procedure was explained to the patient and any questions were answered. An informed consent discussion was held between Dr. Cullen and the patient. Viable alternatives to the proposed procedure, including but not limited to, medical observation under the care of a physician, exercise programs and other weight reductive operative procedures were explained to the patient. Risks to the proposed procedure, including but not limited to hemorrhage requiring transfusion, infection, nerve injury, conversion to open, anastomotic disruption, anastomotic stricture, pneumonia, pulmonary embolus, airway complications, and were explained to the patient. The patient understands the above alternatives and risks and has electively chosen laparoscopic gastric bypass with yang-en-y reconstruction and wishes to proceed. ? TECHNIQUE: The patient was taken to the operating room and placed in the supine position. After successful induction of general endotracheal anesthesia by the anesthesia department an orogastric tube was placed to decompress the stomach. The patient was placed in the split leg lithotomy position and care was taken to pad the exposed extremities. The patient's abdomen was prepped and draped in the normal sterile fashion. A 12-mm Optiview trocar was placed in the left subcostal position in the midclavicular line and access to abdominal cavity was obtained under visualization. Pneumoperitoneum was then established without complications. After evaluation of the abdominal contents from this trocar position, five other 12-mm ports were placed under direct visualization. One at the umbilicus, one 2-3 cm above the umbilicus, one at the subxyphoid area, one in the right subcostal margin in the midclavicular line and the last one further lateral to the original Optiview port. Upon evaluation of the diaphragm, there was a hiatal hernia noted, both anteriorly and posteriorly. Because of the abnormal visual inspection of the diaphragm the hiatal hernia was repaired. The phrenoesophageal ligament was divided using hook electrocautery exposing the left patrice of the diaphragm. We continued our dissection along the anterior crural arch from left to right. The gastrohepatic ligament was incised using Bovie electrocautery, the peritoneum overlying the junction of the transversely passing fat pad at the base of the right patrice was incised. We bluntly mobilized the esophagus, and reduced the GE junction into the abdomen by 5 cm. A Cesario drain was used to provide appropriate retraction. The anterior and posterior vagus nerves were identified and circumferential complete mobilization was performed. Multiple sutures of 0 Surgidac were used to reapproximate the left and right patrice around the lighted 50-Malaysian bougie. At this point, the bougie was removed, we proceeded with gastric pouch formation. ? After decompression of the stomach with the orogastric tube, the orogastric tube and any esophageal probes were removed from the patient. The stomach was grasped using a [place]view forceps and we measured five to seven centimeters from the Angle of His along the lesser curvature. The Nerve of Latarjet was identified and preserved. We made a window along the lesser curvature with the Harmonic Scalpel and began the vidya-gastric dissection. This allowed entry into the lesser sac. Once the lesser sac was entered, a 60-mm x 3.5-mm WILBERT stapler was used to come across the stomach in a horizontal fashion. 60-mm x 3.5-mm staple loads were used to progress cephalad toward the Angle of His. A 30-cc gastric pouch was created. After this was done, the Orvil anvil for the EEA stapler was placed transorally. This anvil is attached to an 18 Fr. orogastric tube and was placed by anesthesia without complications. The orogastric tube was seen in the gastric remnant. The harmonic scalpel was used to make a gastrotomy, and the orogastric tube was pulled out of the gastric remnant. At this point, the orogastric tube was detached from the anvil, and removed, leaving the anvil in the gastric remnant. ? Having successfully completed our small gastric pouch and anvil placement, we turned our attention to dividing the greater omentum. This was accomplished with the harmonic scalpel. After this, we identified the ligament of Treitz and went 50-cm distal to that. A 3-[address] to huyen the proximal bowel and then we divided the bowel using a 60-mm x 2.5-mm WILBERT stapler. The mesentery was also transected using a white staple load with a buttress reinforcement. We then measured distal on the small bowel and oriented our bowel to create the jejunojejunostomy. An enterotomy was created in each limb with the harmonic scalpel and using the Triple-Stapling Technique created a [id number] jejunojejunostomy. 60-mm x 2.5-mm staple loads were utilized. The opening was evaluated for hemostasis and care was taken to make sure that the posterior wall of the anastomosis was free. The remaining defect was closed with one or more firings of a 60-mm x 2.5-mm linear stapler. Numerous sutures of 3-0 Vicryl were used to close the defect of the mesentery at the jejunojejunostomy. ? After this was done we brought the efferent limb all the way up to the gastric pouch, in between our previously created defect in the greater omentum. The staple line on the jejunum was opened using the harmonic scalpel and after enlarging the lateral trocar site, the 25-mm EEA stapler was introduced into the abdomen and into the open jejunum. Using the EEA stapler, we performed our gastrojejunostomy. The stapler was removed and two complete donuts were identified. The open-ended jejunum was closed using a 60-mm x 2.5-mm WILBERT stapler and bowel continuity reestablished. This amputated piece of jejunum was placed into an Endopouch and removed from the abdomen. ? Having restored bowel continuity, we placed multiple interrupted sutures to reinforce the gastrojejunal anastomosis. Interrupted 3-0 Vicryl sutures were placed laterally, posterolaterally and anteriorly so that we could circumferentially reinforce the anastomosis. The bowel was pink and viable, and there was no tension on the anastomosis. Having completed our reinforcement sutures, we then proceeded with checking the anastomosis for leakage. ? After completing the gastrojejunostomy, upper GI endoscopy was performed in order to evaluate the integrity of the anastomosis. The Olympus gastroscope was introduced through the mouth, through the esophagus and into the small gastric pouch. The anastomosis was widely patent. The lateral gastric staple line and gastrojejunal anastomosis were hemostatic. The scope easily passed through the anastomosis into the jejunum. The anastomosis was submerged under irrigation placed in the abdomen. There was no evidence of air extravasation on the intraoperative leak test performed. The air was evacuated and the scope removed from the patient. A fully perforated Dale drain was left posterior to the anastomosis and brought out through a separate RUQ stab wound. ? Intra-abdominal evaluation of the liver identifiedenlargement of the left and right lobe of the liver and as a result of the grossly abnormal visual inspection of the liver a liver biopsy was performed. A liver biopsy was performed with a laparoscopic wedge liver biopsy forceps. We sent two pieces to pathology for permanent sectioning. Bovie electrocautery was used to obtain hepatic hemostasis. The abdomen was then copiously irrigated and checked for hemostasis. The effluent was evacuated from the abdomen and then we turned our attention to closure of the trocar sites. ? The On-Q pain catheter system with two catheters was placed under direct visualization without difficulty at the left lateral trocar site. ? At this point, prior to evacuation of the pneumoperitoneum, we closed all our ports with the laparoscopic suture fascial closure device using 0-Vicryl. The pneumoperitoneum was then evacuated. The LLQ wound was irrigated using 1000 cc of Bactitracin infused solution. The wound was left open and packed using Nu-Gauze wick. The rest of the port sites were closed using 4-0 Monocryl in a running subcuticular fashion. Steri-Strips were applied to the wounds, the patient was awakened from anesthesia, extubated and taken to recovery in stable condition. ? [facility] Data Collection Sheet Start Time: 1019 Stop Time: 1220 Choirmaster: [x] Resident [] Fellow [] PA/STABLE HAND/ACTUARIAL TRAINEE [] Attending - Weight Loss Surgeon ASA Class: [] 1 [] 2 [x] 3 []4 [] 5 Surgical Approach: [x] Conventional laparoscopic [] Robotic-assisted [] Open Was the procedure converted to another approach? [] Yes [x] No Was the case aborted? [] Yes [x] No Was a drain placed at the time of the initial operation? [x] Yes [] No Was a swallow study performed the day of or the day after the procedure? [x] Yes [] No Was the anastomotic/staple line checked with a provocative test to assess for leak? [x] Yes [] No Was this a stapling procedure: [x] Yes [] No Other Procedures: ? EGD ? Liver Biopsy ? Hiatal hernia repair OSE,BEDSIDE Collected: 01/26/2018 Status: F Source: [facility] 8:27 AM SYSTEM REPOSITORY TYPE CODE TESTS RESULT OUT OF RANGE REFERENCE UNITS LAB BGLU 70-100 mg/dL High 128 Glucose,Beds carolyn Result Comment: Test performed by glucose meter. Results may be 10%-15% lower than serum/plasma values. (CLIA ID [id number]) Performed By: #### BGLU #### [facility] [address] [place] [phone] BASIC METABOLIC PANEL Collected: 01/19/2018 Status: F Source: [facility] 12:40 PM SYSTEM REPOSITORY TYPE CODE TESTS RESULT OUT OF RANGE REFERENCE UNITS LAB NA3 137-145 mmol/L Sodium Normal 142 LAB K3 3.5-5.1 mmol/L Normal Potassium 4.6 LAB CL3 98-107 mmol/L Chloride Normal 100 LAB CO23 22-30 mmol/L Carbon Normal Dioxide 30 LAB ANIN3 NA Anion Gap 12 LAB GLUC3 70-100 mg/dL High Glucose 136 LAB BUN3 7-20 mg/dL High Urea Nitrogen 30 LAB CRET3 0.52-1.25 mg/dL Normal Creatinine 0.83 LAB GF3BR >60 mL/min eGFR > 60.0 LAB GF3WR >60 mL/min eGFR OTHER > 60.0 Result Comment: Source- MDRD equation with creatinine calibration to IDMS(NKDEP) eGFR not recommended for drug dose adjustment LAB CA3 8.4-10.4 mg/dL Normal Calcium 10.0 Performed By: #### BMP3 #### [facility] [address] [place] [address] CR CHEST PA/LAT Observed: 01/08/2018 Status: F Source: [facility] 4:23 PM SYSTEM REPOSITORY Patient Name: BRADLEY KEYS Diagnostic Radiology Exam Date/Time 01/08/2018 12:21:41 EDT Exam CR Chest PA/LAT Ordering Physician MARISOL KESSLER, RAMON Loera Accession Number [id number] CPT4 Codes 13295 () Reason For Exam pre op Report Clinical Indications: Preoperative evaluation Views: 2 Comparisons: none Heart: Size within normal limits. Mediastinum: Unremarkable. Lungs: No evidence of infiltrate, effusion or acute interstitial process. Osseous and soft tissue structures: Generally intact. Impression: No radiographic evidence of active cardiopulmonary process. . Report Dictated on Final Dictated: 01/08/2018 4:23 pm Dictating Physician: MD MACHADO RUSSELL Signed Date and Time: 01/08/2018 4:23 pm Signed by: MD MACHADO RUSSELL Transcribed Date and Time: 01/08/2018 4:23 HEMOGRAM Collected: 01/08/2018 Status: F Source: [facility] 12:15 PM SYSTEM REPOSITORY TYPE CODE TESTS RESULT OUT OF RANGE REFERENCE UNITS LAB IWBC 3.6-10.7 10*3/uL WBC Normal 9.4 LAB RBC 4.40-5.90 10*6/uL RBC Normal 4.72 LAB HGB 13.0-18.0 g/dL Normal Hemoglobin 14.0 LAB HCT 40.0-52.0 % Normal Hematocrit 40.0 LAB MCV 80.0-98.0 fL MCV Normal 84.6 LAB MCH 26.0-34.0 pg MCH Normal 29.7 LAB MCHC 32.0-36.0 % MCHC Normal 35.0 LAB RDW 11.5-14.5 % RDW Normal 14.2 LAB PLT 140-440 10*3/uL Platelet Normal 200 LAB MPV 7.4-10.4 fL MPV Normal 9.0 Performed By: #### HEMOG, HA1C2, ALB3, BMP3 #### [facility] [address] [place] [phone] HEMOGLOBIN A1C Collected: 01/08/2018 Status: F Source: [facility] 12:15 PM SYSTEM REPOSITORY TYPE CODE TESTS RESULT OUT OF REFERENCE UNITS RANGE LAB A1C2 4.0-5.7 % High Hemoglobin A1C 7.3 Result Comment: --HgbA1C levels may not be accurate in patients who have renal disease, received recent blood transfusions, are anemic, or who have dyshemoglobinemia. LAB EAG2 mg/dL Estimated Avg Glucose 163 Performed By: #### HEMOG, HA1C2, ALB3, BMP3 #### [facility] [address] [place] [phone] ALBUMIN, SERUM Collected: 01/08/2018 Status: F Source: [facility] 12:15 PM SYSTEM REPOSITORY TYPE CODE TESTS RESULT OUT OF RANGE REFERENCE UNITS LAB ALB3 3.5-5.0 g/dL Normal Albumin, 4.2 Serum Performed By: #### HEMOG, HA1C2, ALB3, BMP3 #### [facility] [address] [place] [phone] BASIC METABOLIC PANEL Collected: 01/08/2018 Status: F Source: [facility] 12:15 PM SYSTEM REPOSITORY TYPE CODE TESTS RESULT OUT OF RANGE REFERENCE UNITS LAB NA3 137-145 mmol/L Sodium Normal 143 LAB K3 3.5-5.1 mmol/L Normal Potassium 4.2 LAB CL3 98-107 mmol/L Chloride Normal 101 LAB CO23 22-30 mmol/L High Carbon Dioxide 33 LAB ANIN3 NA Anion Gap 8 LAB GLUC3 70-100 mg/dL High Glucose 102 LAB BUN3 7-20 mg/dL Urea Normal Nitrogen 20 LAB CRET3 0.52-1.25 mg/dL Normal Creatinine 0.79 LAB GF3BR >60 mL/min eGFR > 60.0 LAB GF3WR >60 mL/min eGFR OTHER > 60.0 Result Comment: Source- MDRD equation with creatinine calibration to IDMS(NKDEP) eGFR not recommended for drug dose adjustment LAB CA3 8.4-10.4 mg/dL Normal Calcium 9.6 Performed By: #### HEMOG, HA1C2, ALB3, BMP3 #### [employer] [address] [place] [phone] STRESS TEST ECHO W/ Observed: 12/12/2017 Status: F Source: [facility] CONTRAST 3:10 PM [facility] REPOSITORY [facility] [address] [place] [id number] Stress Test Echo W/Contrast MR#: [id number] Acct: [id number] Name: BRADLEY KEYS Rep #: [id number] : 1960 56 From: Silvio Ortega MD Primary Care: [facility]AL[facility] Status: REG CLI Ordering Dr: Silvio Ortega MD Sex: M C Reason For Study: Pre-Op, CAD Stress Results Protocol: Dobutamine Stress Echo Maximum Predicted HR: 164 bpm Target HR: 139 bpm% Maximum Pre dicted HR: 83 % DurationHeart Rate Stage (mm:ss) (bpm) BPComm ent Baseline 66 165/97 No Chest Pain; Diluted Definity 1 ML Given DSE 10 MCG 4:43 95 144/82No Chest Pain DSE 20 MCG 3:00 96 148/75No Chest Pain DSE 30 MCG 3:04 11 7 171/100No Chest Pain; Atropine 0.25 MG IVP DSE 40 MCG 3:49 13 6 167/63No Chest Pain; Atropine 0.75 MG IVP Recovery 90 147/63 No Chest Pain Stress Duration: 14:36 mm:ss Maximum Stress HR: 136 bpmME TS: 1 Baseline Echocardiogram Findings The estimated ejection fraction is 65 %. Stress Echo Wall motion Data Resting WMIntermediate WMStress WM Resting Wall Motion Wall Motion Stress No regional wall motion No regional wall motion abnormalities noted. abnormalities noted. EKG Data The baseline ECG displays normal sinus rhythm. The patient was titrated from 10 mcg to a maximum of 40 mcg of dobutamine during the stress. The maximum heart rate attained was 137 beats per minute. This was 83% of maximum predicted heart rate. During dobutamine infusion, there were no ST or T wave changes noted to suggest ischemia. No clinical angina was noted. Interpretation Summary The study was technically difficult. Contrast injection was performed. The estimated ejection fraction is 65 %. Normal, adequate, dobutamine echocardiogram. Negative for ischemia by EKG and echocardiographic criteria. No anginal symptoms noted. Rare PVCs, PACs and one ventricular triplet during infusion which is a nonspecific finding given dobutamine. Final LVEF is 75%. Test terminated due to the attainment of target heart rate. No complications. Decreased sensitivity due to poor echo windows requiring Definity agent. Ordering Physician: Silvio Ortega Referring Physician: Silvio Ortega MD Performed By: Jasvir Workman RCS 12/12/17 1509 Date Silvio Ortega MD CC: Silvio Ortega MD; [facility] Date Dictated: 12/12/17 1314 Date Transcribed: 12/12/17 1509 Medical Reception Specialist: Signed CARDIOLOGY VISIT Observed: 12/05/2017 Status: F Source: [facility] REPORT 2:30 PM [facility] REPOSITORY [facility] [address] [place] [address] OFFICE VISIT Date of Service: 12/05/17 MR#: [id number] Acct: [id number] Name: BRADLEY KEYS Rep #: [id number] : 1960 Provider: Silvio Ortega MD Age/Sex: 56/M Location: [facility] Status: Signed HPI HPI Chief Complaint: Routine f/u Details: Referring physician Dr. Jensen Ralph Mr. Keys is a very pleasant 56-year-old severely obese diabetic gentleman who presents to the office today for a cardiovascular visit. He has a history of hypertension, hypercholesterolemia, and coronary artery disease status post angioplasty and bare-metal stenting to the LAD by Dr. Ortega at [facility] on 02/14/09. At that time, he received a 4.5X 16 Veriflex bare metal stent, postdilated with a noncompliant 4.5 mm balloon. His remaining coronary arteries had minimal nonobstructive disease. Patient had a repeat catheterization in October 2009, which demonstrated widely patent stent, and nonobstructive disease of his left circumflex and right coronary artery. Pharmacologic nuclear stress test in 07/2014 demonstrated no inducible ischemia, inferior wall attenuation artifact/previous infarct noted, and preserved ejection fraction of 61%. Patient's most recent catheterization took place on 02/03/17 which demonstrated widely patent stents, nonobstructive coronary artery disease and normal LV function. He is now here for preoperative stratification for upcoming bariatric surgery. Patient reports that he been compliant with his medications and denies any chest pain, angina, shortness of breath or dyspnea on exertion. He is taking and tolerating his medicines well. Patient states that he may have his bariatric surgery done in February 2018. He is seen Dr. Cullen, and he has requested cardiac risk stratification. The patient denies any chest pain, angina, shortness of breath or dyspnea on exertion. He is compliant with his medications, as well as his CPAP mask. In our office today's blood pressure is 120/60, and pulse is 60 and regular. His physical exam shows clear lungs bilaterally, regular rate and rhythm, normal S1/S2, no S3 or S4. He has 2+ bilateral lower extremity edema up to his knees, and 2+ DP and PT pulses bilaterally. His lipids as of 05/07/16 show an LDL of 65 and HDL 33. Intake Vital Signs12/05/17 Height 5 ft 7 in 12/05/17 Weight: 355 lb 12/05/17 Body Mass Index (BMI) 55.5 12/05/17 Blood Pressure 120/60 Intake Visit Reasons: 4 M FU Closer On Required: No Accompanied by: Is patient in pain?: No Allergies celecoxib [From Celebrex] Allergy (Intermediate, Verified 12/05/17 14:16) Rash Medications Citalopram Hydrobromide [Citalopram HBr] 20 mg PO DAILY 01/31/17 [History Confirmed 12/05/17] Metformin HCl 500 mg PO DAILY 01/31/17 [History Confirmed 12/05/17] Multivitamin [Multiple Vitamins] 1 ea PO DAILY 01/31/17 [History Confirmed 12/05/17] Nitroglycerin [Nitrostat] 0.4 mg SUBLINGUAL Q5M PRN 01/31/17 [History Confirmed 12/05/17] Rosuvastatin Calcium [Crestor] 40 mg PO DAILY 01/31/17 [History Confirmed 12/05/17] potassium chloride ER 20 mEq tablet,extended release(part/cryst) 20 meq PO DAILY #30 tab 06/04/17 [Rx Confirmed 12/05/17] insulin degludec (U-100) 100 unit/mL (3 mL) subcutaneous pen 52 unit SC BID #15 ml 06/30/17 [Rx Confirmed 12/05/17] furosemide 40 mg tablet 40 mg PO BID #60 tab 07/29/17 [Rx Confirmed 12/05/17] cholecalciferol (vitamin D3) 50,000 unit capsule 50,000 unit PO QWEEK 08/07/17 [History Confirmed 12/05/17] insulin aspart U-100 100 unit/mL subcutaneous pen 26 unit SC BID ml 08/07/17 [History Confirmed 12/05/17] alogliptin 25 mg tablet 25 mg PO DAILY 09/25/17 [History Confirmed 12/05/17] Docusate Sodium [Colace] 100 mg PO BID 10/31/17 [History Confirmed 12/05/17] Losartan Potassium 25 mg PO DAILY 10/31/17 [History Confirmed 12/05/17] aspirin 325 mg tablet 325 mg PO DAILY 11/07/17 [History Confirmed 12/05/17] Levothyroxine Sodium [Synthroid] 100 mcg PO QHS 11/24/17 [History Confirmed 12/05/17] Omeprazole [Prilosec] 20 mg PO DAILY 11/24/17 [History Confirmed 12/05/17] [facility] Medical History Atherosclerotic heart disease of [place] coronary artery without angina pectoris (Chronic) HTN (hypertension) (Chronic) Hyperlipidemia (Chronic) HTN (hypertension) (Chronic) Diabetes mellitus type 2 in obese (Chronic) Hiatal hernia (Acute) Allergy-induced asthma (Chronic) CAD (coronary artery disease) (Chronic) Chronic diarrhea (Chronic) Diabetes type 2, uncontrolled (Chronic) Obesity (Chronic) Sleep apnea (Chronic) Surgical History History of coronary artery stent placement (Chronic) H/O hemorrhoidectomy (Chronic) removal of enlarged lymph node (Chronic) removal of lypoma (Chronic) Family History Mother CAD (coronary artery disease) Diabetes Father CAD (coronary artery disease) Hypertension Sister CAD (coronary artery disease) Hypertension Social History Smoking Status: Never smoker second hand exposure: No alcohol intake: never substance use type: does not use ROS Const Const: Positive for other (Needs pre-op stress test for bariatric surgery); negative for fatigue, weakness, body ache, fever(s), headache(s), chills, frequent falls, night sweats, daytime sleepiness, difficulty sleeping, excessive sweating, weight gain, weight loss, increased appetite, poor appetite or anorexia Eyes Eyes: Negative for blind spots, loss of peripheral vision, transient loss of vision, blurry vision, change in vision, double vision, floaters, tunnel vision or other ENT ENT: Negative for headache(s), dizziness, hearing loss, tinnitus, Nosebleed/epistaxis, balance problems, post nasal drip, lip swelling, tongue swelling, bleeding gums, hoarseness, neck pain, dry mouth or other Cardio Chest Pain: No Palpitations: No Edema: None Muscle aches with walking: None Resp Respiratory: Negative for SOB with activity, SOB at rest, SOB orthopnea\SOB lying down, Cough, Coughing up blood/hemoptysis, chest congestion, pain on inspiration, snoring, stridor, wheezing, crackles, paroxysmal nocturnal dyspnea or other GI GI: Negative nausea, vomiting, heartburn, constipation, belching, bloating, cramping, vomiting blood/hematemesis, bright, red blood in stools, black,tarry stools, loose stools, Difficulty Swallowing or other : Negative for hematuria, frequent nighttime urination/ nocturia, erectile dysfunction or abnormal vaginal bleeding Musc Musc: Negative for balance problems, muscle aches/ myalgia, muscle weakness or joint pain Skin Skin: Negative redness, non-healing lesions, rash, unusual bruising, skin ulcer, wounds, jaundice or other Neuro Neuro: Negative for weakness, headache(s), frequent falls, blurry vision, double vision, dizziness, lightheadedness, near syncope, syncope, orthostatic symptoms, confusion, memory loss, restless legs, vertigo, seizures, lack of coordination or other Delta Hematologic/Lymphatic: Negative for easy bleeding, easy bruising, enlarged lymph nodes or other Endo Endo: Negative for fatigue, excessive sweating, cold intolerance, heat intolerance, flushing, increased thirst/drinking, increased hunger, hair loss, hair growth or other Psych Psych: Negative for anxiety, depression, thoughts of harming anyone, thoughts of harming yourself, visual hallucinations, panic attacks or audible hallucinations Allergy Allergy/Immunology: Negative for lip swelling, Negative for tongue swelling, Negative for rash, Negative for throat swelling, Negative for hives Cardiology Exam Const Appearance: cooperative, healthy appearing and no acute distress Nutritional Appearance: well nourished Orientation: alert, oriented x3 and oriented to person Head Head: normal to inspection, atraumatic and normocephalic Nose: external nose normal Face and Sinus: face symmetric Mouth: oral mucosae normal Eyes General: appearance normal, both eyes and all related structures Eyelids: eyelids normal Conjunctivae: conjunctivae normal Pupils: PERRL and normal by confrontation EOM: EOM intact bilaterally Neck Neck: normal visual inspection and full ROM Carotids: normal carotid upstroke Chest Chest inspection: normal inspection of the chest Auscultation: Bilateral: Clear to Auscultation Cardio Palpation: normal PMI Rate: regular rate Rhythm: regular rhythm Heart sounds: S1 normal and S2 normal GI GI: normal to inspection, no hepatosplenomegaly and bowel sounds present Neuro General: alert, oriented x3, awake, CN's II-XI intact bilaterally and moves all extremities Skin Skin: no rashes or lesions noted Extremities Pulses: Normal: Right Femoral Pulse, Left Femoral Pulse, Right Dorsalis Pedis Pulse, Left Dorsalis Pedis Pulse, Right Posterior Tibial Pulse, Left Posterior Tibial Pulse, Right Radial Pulse, Left Radial Pulse Lower Extremity Edema: None: Bilateral Psych Psychological: normal affect Assessment AND Plan 1. Preop cardiovascular exam Z01.810 Plan 1. Cardiac preoperative stratification: The patient is slated to undergo bariatric surgery with Dr. Cullen at [facility] sometime in February 2018 or soon thereafter. Patient's most recent catheterization in January 2017 demonstrated widely patent stents and no additional lesions which required further evaluation. He has been asymptomatic over that period of time and since her last visit. I recommended he undergo a debridement echocardiogram for final cardiac risk stratification. If this is grossly abnormal particular for inferior ischemia, he may require repeat catheterization prior to bariatric surgery. In the meantime we will continue his aspirin, Lasix, and potassium. Orders Orders: 2. Hyperlipidemia E78.5 Plan 2. Hyperlipidemia: His LDL and HDL cholesterol are at goal. Continue Crestor. He may be able to reduce his anti-lipid medications after his bariatric surgery. 3. Return office in 6 months. This note was generated using a voice recognition system and there may be incorrect words, spelling or punctuation that were not noted when reviewing the office note prior to saving. Plan Detail Other Orders Orders: Other Medications Discontinued: Follow Up +6M ([place]) Coding Level of Care Code Off vis,est,level 3 Diagnoses Preop cardiovascular exam Z01.810 Hyperlipidemia E78.5 Coding Level of Care Code Off vis,est,level 3 Diagnoses Preop cardiovascular exam Z01.810 Hyperlipidemia E78.5 12/05/17 1430 <Electronically signed by Silvio Ortega MD> Date Silvio Ortega MD Cosigner Signature: Date (if applicable) CC: [facility] OPERATIVE REPORT Observed: 11/25/2017 Status: F Source: N[facility] 9:17 AM [facility] REPOSITORY [facility] Medical Records Department [address] [place] [address] Operative Report 11/25/17914 MR#: [id number] Acct: [id number] Name: BRADLEY KEYS Rep #: [id number] : 1960 56 From: Samm Ortiz MD PCP: [facility] Status: REG [facility] Y Location: [place] [address] Problem List (1) Constipation Status: Acute Qualifiers: Constipation type: unspecified constipation type Qualified Code(s): K59.00 - Constipation, unspecified Report of Operation Date of Procedure: 11/25/17 Pre-Operative Diagnosis: Constipation Post-Operative Diagnosis: Cecal polyp Surgery/Procedure Performed:: Colonoscopy with snare polypectomy Specimen's removed: Cecal polyp Description of Procedure: The major risks and benefits associated with the procedure were explained to the patient in detail. The patient verbalized understanding and agreement with the same. The patient was brought to the endoscopy suite. After adequate sedation was achieved, the patient was placed in the left lateral decubitus position and a digital rectal exam was performed. This examination was within normal limits. A well- lubricated colonoscope was then inserted into the rectum and advanced under direct visualization to the level of the cecum. The bowel prep was good. The cecum was identified by both visual and anatomic landmarks. A photograph was taken of the end of the cecum. The patient did have a cecal polyp which was removed with cautery snare. Hemostasis was good. The scope was then fully withdrawn while examining the color, texture, anatomy and integrity of the mucosa from the cecum to the anal canal. The findings were consistent with normal colonic mucosa. Over 6 minutes were taken to examine the colonic mucosa. Upon reaching the rectum the scope was retroflexed to examine the distal rectal vault. The scope was then straightened and was completely retrieved upon exiting the anal canal and the procedure was terminated. The patient was then transferred to the recovery room in stable condition. There was no mechanical obstruction of the patient's colon. The colon was widely patent from the cecum to the anus. Recommendations for follow up: Depending on pathology. 11/25/17916 <Electronically signed by Samm Ortiz MD> Date Samm Ortiz MD CC: Samm Ortiz MD; Keli SWEENEY; [facility] Signed COLON BIOPSY (CHOOSE Observed: 11/25/2017 Status: F Source: NGUY[facility]N SITE) 8:45 AM [facility] REPOSITORY Patient: BRADLEY KEYS : 1960 (56/M) Acct Num: [id number] Phys: Angel BEACH,Samm Unit Num: [id number] Loc: EN Specimen: [id number] Received: 11/25/17 - 1007 Spec Type: COLON BX TISSUES TISSUES: Cecum, NOS GROSS DESCRIPTION Received in fixative is one container labeled with the patient's name and designated cecal polyp. The specimen consists of a piece of jacinto-pink polyp measuring 0.5 x 0.5 x 0.3 cm. Also present in the container are multiple fragments of fecal material mixed with jacinto soft tissue measuring in aggregate 2 x 0.3 x 0.1 cm. The entire specimen is submitted in one cassette. / SEBASTIAN:dottie 02/01 TC:5 CPT: 14332 HEADER OPERATION: Colonoscopy PRE-OP DIAGNOSIS: Constipation TISSUE SUBMITTED: Cecal polyp MICROSCOPIC DESCRIPTION Slides are reviewed. MICROSCOPIC DIAGNOSIS Cecal polyp, biopsy: Fragments of tubular adenoma. Fragments of fecal material. SJ:dottie 11/26/17 Signed David Lees 11/26/17 <signature on file> Performed By: #### PCOLBX #### [facility] [address] [place], [place], [id number] BEDSIDE GLUCOSE Collected: 11/25/2017 Status: F Source: [place] 8:35 AM [facility] REPOSITORY TYPE CODE TESTS RESULT OUT OF REFERENCE UNITS RANGE LAB L501.080 70-110 mg/dL High BEDSIDE GLU 139 Result Comment: MANAGEMENT OF PATIENT CARE PER NURSING PROTOCOL Performed By: #### L501.080 #### [facility] Laboratory Point of Care [address] [place] [address] ENDOCRINOLOGY VISIT Observed: 11/09/2017 Status: F Source: [place] REPORT 12:30 PM [facility] REPOSITORY [facility] [address] [place] [address] OFFICE VISIT Date of Service: 11/06/17 MR#: [id number] Acct: [id number] Name: BRADLEY KEYS Rep #: [id number] : 1960 Provider: Ashtyn Reyes NP Age/Sex: 56/M Location: [facility] Status: Signed HPI History of present illness Bradley is a 56 year old male who presents for follow up of diabetes type 2, Has continued to check his BG for the most part 2-3 times daily. Currently taking tresiba 40 units twice daily and novolog 20units three times daily, and alogliptin 25mg daily. He reports he reduced his insulin after discussing with his gastro. At time of visit: -Pt denies symptoms of hypertensive emergency (CP,SOB,FONSECA, or blurred vision) and hypotension(dizziness or lightheadedness) -Pt denies symptoms of hypoglycemia ( sweaty, confusion, anxiety, tremor, hunger, palpitations) and hyperglycemia ( polydipsia, polyuria) -Pt denies potential medication adverse effect. Hypoglycemia Aware of hypoglycemia: When awake Able to self treat low BG: Yes Frequent low Blood sugar: No Has supply of glucagon: Yes Since our last visit he denies excessive thirst, increased frequency of urination, chest pain or dyspnea. Follows a diabetic diet, Is compliant with medication and is tolerating without side effects. SMBG 3 times daily 130-200 range Type: type 2 Glucose control symptoms: Reports high post-meal glucose Weight and fatigue symptoms: Reports weight loss; denies snoring Cardiopulmonary symptoms: Denies chest pain at rest, dyspnea on exertion, lightheadedness or myalgias Exam Const General: cooperative Nutritional Appearance: overweight Orientation: oriented x3 HENMT Head: normal to inspection, atraumatic Ears: hearing grossly normal bilaterally Mouth: oral mucosae normal, moist mucous membranes Eyes General: appearance normal, both eyes and all related structures Sclera: sclerae normal Pupils: PERRL Neck Neck: normal visual inspection Neck mass: No Chest Chest palpation AND inspection: deferred Resp Effort AND Inspection: normal respiratory effort, able to speak in complete sentences, symmetric chest movement Auscultation: Bilateral: Clear to Auscultation Cardio Rate: regular rate Rhythm: regular rhythm Heart Sounds: S1 normal, S2 normal GI Inspection: normal to inspection Auscultation: normal bowel sounds General: deferred Skin General: no rashes or lesions noted Diabetic Foot Pulses: L dorsalis pedis pulse: diminished, R dorsalis pedis pulse: diminished Monofilament test: Left foot: abnormal, Right foot: abnormal Neuro General: oriented x3, moves all extremities Cranial Nerves: hearing normal Cognition: normal cognition Speech: speech normal Gait: normal gait Sensory Exam: no sensory deficits noted Extrem General: normal exam except as noted (Has pedal edema) Psych Appearance: grossly normal Mood: congruent mood Affect: normal affect Speech and Movement: speech and movement normal Thought Process: normal Thought Content: normal Judgment: fair Type: type 2, insulin-requiring Glucose control symptoms: Reports high post-meal glucose and high fasting glucose Cardiopulmonary symptoms: Denies dizziness GI symptoms: Reports constipation; denies nausea/dyspepsia or increased hunger Other symptoms: Denies change in vision or depression Pertinent visit history: Reports recent visit to ER Self monitoring: Yes Diabetes education in past year: Yes Glucose testing: demonstrates correct use of meter, understands testing schedule Sick day education - understands ketone testing: Yes Physical activity: sedentary lifestyle Intake Vital Signs11/06/17 Height 5 ft 7 in 11/06/17 Weight: 358 lb 11/06/17 Body Mass Index (BMI) 56.0 11/06/17 Blood Pressure 125/79 11/06/17 Pulse Rate 63 Intake Visit Reasons: 6 wk FU Chief Complaint: Routine f/u Closer On Required: No Is patient in pain?: No Allergies celecoxib [From Celebrex] Allergy (Verified 11/06/17 13:02) Unknown Medications Citalopram Hydrobromide [Citalopram HBr] 20 mg PO DAILY 01/31/17 [History Confirmed 11/07/17] Metformin HCl 500 mg PO DAILY 01/31/17 [History Confirmed 11/07/17] Multivitamin [Multiple Vitamins] 1 ea PO DAILY 01/31/17 [History Confirmed 11/07/17] Nitroglycerin [Nitrostat] 0.4 mg SUBLINGUAL Q5M PRN 01/31/17 [History Confirmed 11/07/17] Rosuvastatin Calcium [Crestor] 40 mg PO DAILY 01/31/17 [History Confirmed 11/07/17] blood sugar diagnostic strips See Dose Instructions .ROUTE .MEDSUPPLY #20 ea 02/24/17 [History Confirmed 11/07/17] potassium chloride ER 20 mEq tablet,extended release(part/cryst) 20 meq PO DAILY #30 tab 06/04/17 [Rx Confirmed 11/07/17] insulin degludec (U-100) 100 unit/mL (3 mL) subcutaneous pen 52 unit SC BID #15 ml 06/30/17 [Rx Confirmed 11/07/17] furosemide 40 mg tablet 40 mg PO BID #60 tab 07/29/17 [Rx Confirmed 11/07/17] cholecalciferol (vitamin D3) 50,000 unit capsule 50,000 unit PO QWEEK 08/07/17 [History Confirmed 11/07/17] insulin aspart U-100 100 unit/mL subcutaneous pen 26 unit SC BID ml 08/07/17 [History Confirmed 11/07/17] alogliptin 25 mg tablet 25 mg PO DAILY 09/25/17 [History Confirmed 11/07/17] famotidine 20 mg tablet 20 mg PO QDAY 09/25/17 [History Confirmed 11/07/17] levothyroxine 100 mcg tablet 100 mcg PO QDAY #30 tab 09/25/17 [Rx Confirmed 11/07/17] Docusate Sodium [Colace] 100 mg PO BID 10/31/17 [History Confirmed 11/07/17] Losartan Potassium 25 mg PO DAILY 10/31/17 [History Confirmed 11/07/17] aspirin 325 mg tablet 325 mg PO DAILY 11/07/17 [History Confirmed 11/07/17] fluconazole 200 mg tablet 200 mg PO DAILY 11/07/17 [History Confirmed 11/07/17] [facility] Medical History Atherosclerotic heart disease of [place] coronary artery without angina pectoris (Chronic) HTN (hypertension) (Chronic) Hyperlipidemia (Chronic) HTN (hypertension) (Chronic) Diabetes mellitus type 2 in obese (Chronic) Hiatal hernia (Acute) Allergy-induced asthma (Chronic) CAD (coronary artery disease) (Chronic) Chronic diarrhea (Chronic) Diabetes type 2, uncontrolled (Chronic) Obesity (Chronic) Sleep apnea (Chronic) Surgical History History of coronary artery stent placement (Chronic) H/O hemorrhoidectomy (Chronic) removal of enlarged lymph node (Chronic) removal of lypoma (Chronic) Family History Mother CAD (coronary artery disease) Diabetes Social History Smoking Status: Never smoker second hand exposure: No alcohol intake: never substance use type: does not use ROS Const Constitutional: No chills, fever(s) or night sweats Eyes Eyes: No change in vision ENT ENT: No ear pain, ear discharge or nosebleed/epistaxis Resp Respiratory: Positive for shortness of breath and cough Cardio Cardiology: Positive for generalized swelling; no chest pain with exertion Gastro GI: Positive for constipation; no abdominal pain or nausea/dyspepsia Genitourinary Male: No difficulty urinating or burning urination Musc Musculoskeletal: No joint pain or muscle cramps Skin Skin: No itching or rash Neuro Neurology: No fainting or dizziness Psych Psychiatric: No anxiety, No depression Endo Endocrine: No increased thirst/drinking or increased hunger Aller/Imm Allergy/Immunologic: No itchy eyes Delta/Lymp Hematologic/Lymphatic: No easy bleeding or easy bruising Assessment AND Plan Problems 1. Hypothyroidism (acquired) E03.9 2. Essential hypertension I10 3. Diabetes mellitus type 2 in obese E11.69; E66.9 Plan Thyroid: TSH remains in normal range. Continue on current regimen. HTN: Sl elevated today. 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 They had a conversation about reducing insulin but it was about needing to reduce insulin post surgery. I ahve advised patient to resume previous insulin dose as his BG readings are much higer than previous visit. Labs reviewed. Plan Detail Additional Comments 1. Please schedule follow up in 3 months. 2. Lab work one week before appointment. 3. Discussed importance of regular exercise and recommend starting or continuing a regular exercise program for good health. 4. The patient was encouraged to lose weight for good health 5. The importance of monitoring blood sugar regularly was reviewed. 6. The importance of monitoring the HBA1c level regularly was reviewed. 7. The importance of prper foot care and regularly checking feet to prevent sores and loss of limbs was reviewed. 8. The importance of keeping BP at or below 130/80 to prevent stroke, heart attacks, kidney failure, blindness was reviewed. Spent approximately 30 minutes with patient with over 50% of time spent in discussion and counseling regarding medication adjustment, symptoms and treatment of hypoglycemia, diet adherence, and checking BG before driving. Coding Level of Care Code Off vis,est,level 4 Diagnoses Hypothyroidism (acquired) E03.9 Essential hypertension I10 Hypertension type: essential hypertension Diabetes mellitus type 2 in obese E11.69; E66.9 11/09/17 1230 <Electronically signed by Ashtyn ROBERTSON> Date Ashtyn ROBERTSON Cosigner Signature: Date (if applicable) CC: SURGERY VISIT REPORT Observed: 11/07/2017 Status: F Source: [place] 10:37 AM [facility] REPOSITORY [facility] [address] [place] [address] [address] [place] [address] OFFICE VISIT Date of Service: 11/07/17 MR#: [id number] Acct: [id number] Name: BRADLEY KEYS Rep #: [id number] : 1960 Provider: Samm Ortiz MD Age/Sex: 56/M Location: [facility] Status: Signed Intake Vital Signs11/07/17 Height 5 ft 7 in 11/07/17 Weight: 360 lb 1 oz 11/07/17 Body Mass Index (BMI) 56.4 11/07/17 Blood Pressure 138/76 Intake Visit Reasons: Constipation Chief Complaint: constipation Closer On Required: No Is patient in pain?: No Allergies celecoxib [From Celebrex] Allergy (Verified 11/06/17 13:02) Unknown Medications Citalopram Hydrobromide [Citalopram HBr] 20 mg PO DAILY 01/31/17 [History Confirmed 11/07/17] Metformin HCl 500 mg PO DAILY 01/31/17 [History Confirmed 11/07/17] Multivitamin [Multiple Vitamins] 1 ea PO DAILY 01/31/17 [History Confirmed 11/07/17] Nitroglycerin [Nitrostat] 0.4 mg SUBLINGUAL Q5M PRN 01/31/17 [History Confirmed 11/07/17] Rosuvastatin Calcium [Crestor] 40 mg PO DAILY 01/31/17 [History Confirmed 11/07/17] blood sugar diagnostic strips See Dose Instructions .ROUTE .MEDSUPPLY #20 ea 02/24/17 [History Confirmed 11/07/17] potassium chloride ER 20 mEq tablet,extended release(part/cryst) 20 meq PO DAILY #30 tab 06/04/17 [Rx Confirmed 11/07/17] insulin degludec (U-100) 100 unit/mL (3 mL) subcutaneous pen 52 unit SC BID #15 ml 06/30/17 [Rx Confirmed 11/07/17] furosemide 40 mg tablet 40 mg PO BID #60 tab 07/29/17 [Rx Confirmed 11/07/17] cholecalciferol (vitamin D3) 50,000 unit capsule 50,000 unit PO QWEEK 08/07/17 [History Confirmed 11/07/17] insulin aspart U-100 100 unit/mL subcutaneous pen 26 unit SC BID ml 08/07/17 [History Confirmed 11/07/17] alogliptin 25 mg tablet 25 mg PO DAILY 09/25/17 [History Confirmed 11/07/17] famotidine 20 mg tablet 20 mg PO QDAY 09/25/17 [History Confirmed 11/07/17] levothyroxine 100 mcg tablet 100 mcg PO QDAY #30 tab 09/25/17 [Rx Confirmed 11/07/17] Docusate Sodium [Colace] 100 mg PO BID 10/31/17 [History Confirmed 11/07/17] Losartan Potassium 25 mg PO DAILY 10/31/17 [History Confirmed 11/07/17] aspirin 325 mg tablet 325 mg PO DAILY 11/07/17 [History Confirmed 11/07/17] fluconazole 200 mg tablet 200 mg PO DAILY 11/07/17 [History Confirmed 11/07/17] [facility] Medical History Atherosclerotic heart disease of [place] coronary artery without angina pectoris (Chronic) HTN (hypertension) (Chronic) Hyperlipidemia (Chronic) HTN (hypertension) (Chronic) Diabetes mellitus type 2 in obese (Chronic) Hiatal hernia (Acute) Allergy-induced asthma (Chronic) CAD (coronary artery disease) (Chronic) Chronic diarrhea (Chronic) Diabetes type 2, uncontrolled (Chronic) Obesity (Chronic) Sleep apnea (Chronic) Surgical History History of coronary artery stent placement (Chronic) H/O hemorrhoidectomy (Chronic) removal of enlarged lymph node (Chronic) removal of lypoma (Chronic) Family History Mother CAD (coronary artery disease) Diabetes Father CAD (coronary artery disease) Hypertension Sister CAD (coronary artery disease) Hypertension Social History Smoking Status: Never smoker second hand exposure: No alcohol intake: never substance use type: does not use HPI HPI HPI: BRADLEY KEYS, is a 56 M who presents to the office today for constipation. The patient reports he has been having severe constipation since starting on Synthroid. He reports that before starting his thyroid medication he was taken to bowel movements a day. He says at this point he goes an entire week without bowel movements. He was recently in the emergency room and they took x-rays which showed severe constipation. They gave him an enema and mag citrate and that resulted in a few days of diarrhea but he has now not had a bowel movement in 4 days. ROS General General: Yes weight change and appetite; no fatigue, colon cancer, breast cancer or weakness HEENT HEENT: No difficulty swallowing, eye injury, eye surgery, swollen glands or hoarseness Endo Endocrine: Yes diabetes mellitus; no thyroid disease, thyroid cancer, Hair loss, heat intolerance or cold intolerance Musc Musculoskeletal: Yes back problems; no arthritis, rheumatoid arthritis, gout or joint pain Cardio Cardiovascular: Yes heart disease, high blood pressure, heart attack and heart stent; no murmur, pacemaker, atrial fibrillation, palpitations, shortness of breat with exertion or chest pain Psych Psychiatric: Yes depression; no anxiety or hearing voices Resp Respiratory: Yes shortness of breath, Yes sleep apnea, Yes cough, No COPD, No asthma, No emphysema, No wheezing Gastro Gastrointestinal: No abdominal pain, No nausea or vomiting, No diarrhea, Yes constipation, No blood in stool, Yes acid reflux, No hemorrhoids, No ulcers, No gallbladder problem, No black,tarry stools Delta Hematologic: No blood thinners, No blood disorders, No bleeding, No anemia, No blood clots Neuro Neurologic: No weakness Exam Const General: cooperative Nutritional Appearance: obese morbidly obese Orientation: alert, oriented x3 Resp Effort AND Inspection: normal respiratory effort Auscultation: clear to auscultation bilaterally Cardio Rate: regular rate Rhythm: regular rhythm Heart Sounds: no murmurs GI Inspection: non-distended Palpation: soft, nontender Assessment AND Plan 1. Constipation, unspecified constipation type K59.00 Plan 1. The patient is having severe constipation. I recommended he continue a bowel regimen. The patient would benefit from a colonoscopy as he has not had one. 2. The patient sees Dr. Ortega I will ask for cardiac clearance for his colonoscopy. The patient has having a stress test in anticipation of bariatric surgery this winter. 3. I explained endoscopy in detail to the patient. I explained the risks including but not limited to stroke or heart attack with anesthesia, perforation of the GI tract, bleeding, infection. I explained that any of these could necessitate further emergency surgery. The patient understands and all questions were answered sufficiently. The patient wishes to proceed with procedure. Samm Ortiz MD Pager: [facility] [address] [place] [address], [address] [place] [address] Office: Orders Orders: Plan Detail Other Medications Discontinued: magnesium citrate oral solution Discontinued Reason: Pt no300 mL PO X1 Christine Dixon Rose longer taking Coding Level of Care Code Off vis,new,level 3 Diagnoses Constipation, unspecified constipation type K59.00 Constipation type: unspecified constipation type 11/07/17 1037 <Electronically signed by Samm Ortiz MD> Date Samm Ortiz MD Cosigner Signature: Date (if applicable) CC: Silvio Ortega MD; [facility] EMERGENCY DEPARTMENT Observed: 11/01/2017 Status: F Source: [place] SUMMARY 1:01 AM [facility] REPOSITORY [facility] Medical Records Department [address] [place] [address] Emergency Department Summary 10/31/17 1719 MR#: [id number] Acct: [id number] Name: BRADLEY KEYS Rep #: [id number] : 1960 56 From: Yoseph Anderson MD PCP: Keli Kennedy Status: DEP ER - ER Visit Summary Date of Service: 10/31/17 Chief Complaint: Constipation History of Present Illness: The patient is a 56 M who goes to the [facility]. Reports he has had constipation for the past 3 weeks. Typically he has a bowel movement twice a day. States that his last bowel movement was 6 days ago. Patient reports that this began when he started levothyroxine. He denies taking any pain medications. Patient reports that he has been on Colace for approximately 15 days and is still taking this. States that 7 days ago he took magnesium citrate in these next day had a small amount of diarrhea without blood. He reports that he begin MiraLAX 5 days ago and took that for 3 days only. Finally he began taking Metamucil yesterday. He reports he has had no relief. Patient complains of a sharp, aching abdominal pain at 7 out of 10 severity. Is worsened by laying down. Is relieved by remaining still. He has had nausea without vomiting. Physical Examination: Vitals: Stable. Afebrile. General: Well-nourished and well-developed. Head: Normocephalic atraumatic. Neck: Supple, no lymphadenopathy. No JVD. Nontender. Cardiovascular: Regular rate and rhythm. No murmurs. Respiratory: No respiratory distress. Clear to auscultation bilaterally. Abdominal: Soft, mild diffuse tenderness palpation is worst in the epigastric region, nondistended, normal bowel sounds. No guarding, rebound, or peritoneal signs. Rectal: Soft brown stool in the vault. No fecal impaction. Back: Nontender. Extremities: Nontender, 2+ pitting edema of his lower extremities bilaterally. Skin: Normal color, no rash. Neurologic: Alert and oriented 3. Cranial nerves II through XII are intact. Normal strength and sensation. Psych: Normal affect. Test Results: CBC is more for white count 11.1. Chem-7 more for BUN of 20. LFTs and lipase are normal. TSH is normal. Abdominal series shows nonspecific bowel gas pattern with increased stool. Emergency Department Course and Treatment: Had a prolonged discussion with patient about use of opiate-based medications for pain with constipation and he opted to not have these. He is given Tylenol p.o. He had a fleets enema with moderate results. Treatment Plan: I had a prolonged discussion the patient about treatment of constipation and symptomatic care. He will be discharged magnesium citrate. Instructed follow-up his primary care physician 1 to days not improving. Return to the emergency department for any worsening symptoms. Disposition: To home in improved and stable condition. Impression: 1. Constipation. This note was generated with [employer] dictation software. It may contain incorrect words, spelling, and punctuation that were not noted in review of the chart prior to signing ED Disposition - Plan for ED Patient: Chief Complaint: Constipation Instructions: ED Constipation Prescriptions: Magnesium Citrate [Citrate Of Magnesia] 300 ml PO X1 #1 bottle Referrals: Keli Bragg, STABLE [facility]-C [Primary Care Provider] - 1-2 Days if not improving What to do if you have Problems For any increased pain, shortness of breath, bleeding, nausea or vomiting, chest pain, or any unexpected problems, contact your Primary Care Provider. Call [facility] ([phone]) or report to the closest Emergency Room. Call 911 if necessary. 11/01/17 0101 <Electronically signed by Yoseph Anderson MD> Date Yoseph Anderson MD Cosigner Signature (If Indicated): Date CC: [facility]eli [facility] CBC W/DIFF, AUTOMATED Collected: 10/31/2017 Status: F Source: [place] 4:35 PM [facility] REPOSITORY TYPE CODE TESTS RESULT OUT OF RANGE REFERENCE UNITS LAB L100.1000 4.4-11.0 K/mm3 High WBC 11.1 LAB L100.1200 4.6-6.2 M/mm3 Normal RBC 4.79 LAB L100.1300 13.0-16.5 g/dl Normal HGB 14.4 LAB L100.1400 40-54 % Normal HCT 41.7 LAB L100.1500 80-94 fL Normal MCV 87.1 LAB L100.1600 27.0-32.0 pg Normal MCH 30.1 LAB L100.1700 32-36 g/gl Normal MCHC 34.5 LAB L100.1810 11.6-14.6 % Normal RDW CV 13.7 LAB L100.1820 35.1-43.9 fl Normal RDW SD 42.9 LAB L100.1900 150-450 K/mm3 Normal PLT 203 LAB L100.2000 6.2-12.0 fl Normal MPV 10.1 LAB L100.2100 47-70 % Normal NEUT% 66.8 LAB L100.2200 19-41 % Normal LY% 24.1 LAB L100.2300 0-10 % Normal MONO% 6.1 LAB L100.2400 0-5 % Normal EO% 2.4 LAB L100.2500 0-1 % Normal BASO% 0.4 LAB L100.2550 0.0-0.9 % Normal IM GRAN % 0.200 Result Comment: IG% - Immature Granulocytes (promyelocytes, myelocytes and metamyelocytes) > 1% indicates that a LEFT SHIFT is Present. LAB L100.2620 2.0-7.7 X10 3/uL Normal Absolute Neut 7.4 LAB L100.2720 0.83-4.51 X10 3/ul Normal Absolute Lymph 2.68 Performed By: #### L100.0100 #### [facility] [place], [place], [id number] BASIC METABOLIC Collected: 10/31/2017 Status: F Source: [place] PROFILE (BMP) 4:35 PM [facility] REPOSITORY TYPE CODE TESTS RESULT OUT OF RANGE REFERENCE UNITS LAB L501.0100 74-106 mg/dL Normal GLU 102 Result Comment: Fasting Glucose result from 100 to 125 mg/dL suggests IMPAIRED HOMEOSTASIS per A.D.A. criteria. Please note revised GLUCOSE reference range effective 2017. LAB L501.1000 7-18 mg/dL High BUN 20 LAB L501.1100 0.70-1.30 mg/dL Normal CREAT,SERUM 0.94 Result Comment: The validity of the calculated GFR AND GFRAA in patients over 70 years has not been determined. Clinical correlation is essential. LAB L501.1110 >60 mL/min Normal EST GFR 88 Result Comment: Non- GFR Calc LAB L501.1115 >60 mL/min Normal EST GFR - AA 106 Result Comment: GFR Calc LAB L501.1255 ml/min Normal Estimated CRCL 82.04 LAB L501.1300 10-20 RATIO High BUN/CRE 21.2 LAB L501.2200 8.5-10 mg/dL Normal .1 CA 9.3 LAB L501.5300 136-14 mmol/L Normal 5 NA 140 LAB L501.5600 3.5-5. mmol/L Normal 1 K 3.7 LAB L501.5900 98-107 mmol/L Normal CL 104 LAB L501.6100 21.0-3 mmol/L Normal 2.0 CO2 30.0 LAB L501.6200 5-15 Normal GAP 6 Performed By: #### L500.2500, L500.3400, L501.2450, L501.9520 #### [facility] [address] [place], [address] LIVER PROFILE Collected: 10/31/2017 Status: F Source: [place] 4:35 PM [facility] REPOSITORY TYPE CODE TESTS RESULT OUT OF RANGE REFERENCE UNITS LAB L501.1500 6.4-8.2 g/dL Normal T PROT 7.5 LAB L501.1800 3.2-5.0 g/dL Normal ALB 3.6 LAB L501.1950 2.2-4.2 g/dL Normal GLOB 3.9 LAB L501.4100 15-37 U/L Normal AST 15 LAB L501.4305 45-117 U/L Normal ALK P 92 LAB L501.4405 16-61 U/L Normal ALT 26 LAB L501.4600 0.20-1.00 mg/dL Normal T BILI 0.50 LAB L501.4700 0.00-0.30 mg/dL Normal D BILI 0.15 Performed By: #### L500.2500, L500.3400, L501.2450, L501.9520 #### [facility] [address] [place], [address] LIPASE Collected: 10/31/2017 Status: F Source: [place] 4:35 PM [facility] REPOSITORY TYPE CODE TESTS RESULT OUT OF RANGE REFERENCE UNITS LAB L501.2450 73-393 U/L Normal LIPASE 87 Performed By: #### L500.2500, L500.3400, L501.2450, L501.9520 #### [facility] [address] [place], [address] THYROID STIM HORMONE Collected: 10/31/2017 Status: F Source: [place] (TSH) 4:35 PM [facility] REPOSITORY TYPE CODE TESTS RESULT OUT OF RANGE REFERENCE UNITS LAB L501.9520 0.358-3.74 uIU/mL Normal TSH 1.73 Performed By: #### L500.2500, L500.3400, L501.2450, L501.9520 #### [facility] [address] [place], [address] ACUTE ABDOMEN INC Observed: 10/31/2017 Status: F Source: [place] CHEST [facility] PM [facility] [place] [facility] [address] [place] [id number] Acute Abdomen Inc Chest MR#: [id number] Acct: [id number] Name: BRADLEY KEYS Rep #: [id number] : 1960 M 56 From: Natali Rodriguez MD PCP: Keli Kennedy Status: REG ER Study: Acute Abdomen Inc Chest Date of Exam: 10/31/17 Exam# [id number] Ordering Dr: Yoseph Anderson MD STUDY: X-RAY - ACUTE ABDOMINAL SERIES REASON FOR EXAM: Male, 56 years old. Abdominal pain and constipation. TECHNIQUE: Single view of the chest. Supine, view(s) of the abdomen were obtained. COMPARISON: January 27, 2017 FINDINGS: The lungs are clear and expanded. There are surgical clips projecting over the left lower neck. Normal size heart. Normal mediastinum and sb. Normal visualized pulmonary arteries. Normal visualized aortic arch and descending thoracic aorta. There is a non-specific bowel gas pattern. The soft tissue structures of the abdomen and pelvis are unremarkable. There is a moderate amount of stool throughout the colon. Normal visualized osseous structures. RAD/Acute Abdomen Inc Chest IMPRESSION: Moderate amount of stool throughout the colon. Electronically Signed: Natali Rodriguez MD at 17:38 EDT Tel , Service support , CC: Keli SWEENEY; Yoseph Anderson MD Medical Reception Specialist: Signed ENDOCRINOLOGY VISIT Observed: 10/01/2017 Status: F Source: [place] REPORT 7:53 PM [facility] [place] [facility] [address] [place] [address]. [address] [place] [address] OFFICE VISIT Date of Service: 09/25/17 MR#: [id number] Acct: [id number] Name: BRADLEY KEYS Rep #: [id number] : 1960 Provider: Ashtyn Reyes NP Age/Sex: 56/M [place] [facility] [place]: Signed HPI History of present illness History of present illness Bradley is a 56 year old male who presents for follow up of diabetes type 2, Has continued to check his BG for the most part 2-3 times daily. Currently taking tresiba 52 units twice daily and novolog 25 units three times daily, and alogliptin 25mg daily. Lab results from Another provider have been sent to this office asking if the thyroid could also be evaluated and treated. At time of visit: -Pt denies symptoms of hypertensive emergency (CP,SOB,FONSECA, or blurred vision) and hypotension(dizziness or lightheadedness) -Pt denies symptoms of hypoglycemia ( sweaty, confusion, anxiety, tremor, hunger, palpitations) and hyperglycemia ( polydipsia, polyuria) -Pt denies potential medication adverse effect. Hypoglycemia Aware of hypoglycemia: When awake Able to self treat low BG: Yes Frequent low Blood sugar: No Has supply of glucagon: Yes Since our last visit he denies excessive thirst, increased frequency of urination, chest pain or dyspnea. Follows a diabetic diet, Is compliant with medication and is tolerating without side effects. SMBG 3 times daily 100-140 range Type: type 2 Glucose control symptoms: Reports high post-meal glucose Weight and fatigue symptoms: Reports weight loss; denies snoring Cardiopulmonary symptoms: Denies chest pain at rest, dyspnea on exertion, lightheadedness or myalgias GI symptoms: Denies constipation, diarrhea, nausea/dyspepsia or vomiting Skin and extremity symptoms: Denies erectile dysfunction Other symptoms: Denies blurry vision or change in vision Self monitoring: Yes Glucometer type: freestyle Before breakfast BG range: 150 Before dinner BG range: 140 Dietary compliance: Diabetes: improved Diabetes education in past year: Yes Glucose testing: demonstrates correct use of meter Sick day education - understands ketone testing: Yes Exam Const General: cooperative Nutritional Appearance: overweight Orientation: oriented x3 HENMT Head: normal to inspection, atraumatic Ears: hearing grossly normal bilaterally Mouth: oral mucosae normal, moist mucous membranes Eyes General: appearance normal, both eyes and all related structures Sclera: sclerae normal Pupils: PERRL Neck Neck: normal visual inspection Neck mass: No Chest Chest palpation AND inspection: deferred Resp Effort AND Inspection: normal respiratory effort, able to speak in complete sentences, symmetric chest movement Auscultation: Bilateral: Clear to Auscultation Cardio Rate: regular rate Rhythm: regular rhythm Heart Sounds: S1 normal, S2 normal GI Inspection: normal to inspection Auscultation: normal bowel sounds General: deferred Skin General: no rashes or lesions noted Diabetic Foot Pulses: L dorsalis pedis pulse: diminished, R dorsalis pedis pulse: diminished Monofilament test: Left foot: abnormal, Right foot: abnormal Neuro General: oriented x3, moves all extremities Cranial Nerves: hearing normal Cognition: normal cognition Speech: speech normal Gait: normal gait Sensory Exam: no sensory deficits noted Extrem General: normal exam except as noted (Has pedal edema) Psych Appearance: grossly normal Mood: congruent mood Affect: normal affect Speech and Movement: speech and movement normal Thought Process: normal Thought Content: normal Judgment: fair Weight and fatigue symptoms: Denies snoring Cardiopulmonary symptoms: Reports lightheadedness; denies chest pain at rest, dyspnea on exertion or myalgias GI symptoms: Denies constipation, diarrhea, nausea/dyspepsia or vomiting Skin and extremity symptoms: Denies erectile dysfunction Other symptoms: Denies blurry vision or change in vision Intake Vital Signs09/25/17 Height 5 ft 7 in 09/25/17 Weight: 355 lb 8 oz 09/25/17 Body Mass Index (BMI) 55.6 09/25/17 Blood Pressure 109/67 09/25/17 Blood Pressure Location Lt popliteal 09/25/17 Blood Pressure Position Sitting Intake Visit Reasons: tsh elevated Closer On Required: No Accompanied by: Is patient in pain?: No Allergies celecoxib [From Celebrex] Allergy (Verified 09/25/17 10:46) Unknown Medications Aspirin [Aspirin EC] 81 mg PO DAILY 01/31/17 [History Confirmed 09/25/17] Benefiber 1 tab PO DAILY 01/31/17 [History Confirmed 09/25/17] Citalopram Hydrobromide [Citalopram HBr] 20 mg PO DAILY 01/31/17 [History Confirmed 09/25/17] Metformin HCl 500 mg PO DAILY 01/31/17 [History Confirmed 09/25/17] Multivitamin [Multiple Vitamins] 1 ea PO DAILY 01/31/17 [History Confirmed 09/25/17] Mupirocin Calcium [Bactroban Cream] 1 applic TOPICAL DAILY 01/31/17 [History Confirmed 09/25/17] Nitroglycerin [Nitrostat] 0.4 mg SUBLINGUAL Q5M PRN 01/31/17 [History Confirmed 09/25/17] Rosuvastatin Calcium [Crestor] 40 mg PO DAILY 01/31/17 [History Confirmed 09/25/17] Valsartan [Diovan] 80 mg PO DAILY 01/31/17 [History Confirmed 09/25/17] blood sugar diagnostic strips See Dose Instructions .ROUTE .MEDSUPPLY #20 ea 02/24/17 [History Confirmed 09/25/17] potassium chloride ER 20 mEq tablet,extended release(part/cryst) 20 meq PO DAILY #30 tab 06/04/17 [Rx Confirmed 09/25/17] insulin degludec (U-100) 100 unit/mL (3 mL) subcutaneous pen 52 unit SC BID #15 ml 06/30/17 [Rx Confirmed 09/25/17] cranberry fruit concentrate 250 mg chewable tablet 250 mg PO TID 07/21/17 [History Confirmed 09/25/17] furosemide 40 mg tablet 40 mg PO BID #60 tab 07/29/17 [Rx Confirmed 09/25/17] cholecalciferol (vitamin D3) 50,000 unit capsule 50,000 unit PO QWEEK 08/07/17 [History Confirmed 09/25/17] fluconazole 200 mg tablet 200 mg PO .COMPLEX 08/07/17 [History Confirmed 09/25/17] insulin aspart U-100 100 unit/mL subcutaneous pen 26 unit SC BID ml 08/07/17 [History Confirmed 09/25/17] alogliptin 25 mg tablet 25 mg PO DAILY 09/25/17 [History Confirmed 09/25/17] famotidine 20 mg tablet 20 mg PO QDAY 09/25/17 [History Confirmed 09/25/17] levothyroxine 100 mcg tablet 100 mcg PO QDAY #30 tab 09/25/17 [Rx Confirmed 09/25/17] Nurse's Note: blood sugars : low : 83 high : 200 PFSH Medical History Atherosclerotic heart disease of [place] coronary artery without angina pectoris (Chronic) HTN (hypertension) (Chronic) Hyperlipidemia (Chronic) HTN (hypertension) (Chronic) Diabetes mellitus type 2 in obese (Chronic) Hiatal hernia (Acute) Allergy-induced asthma (Chronic) CAD (coronary artery disease) (Chronic) Chronic diarrhea (Chronic) Diabetes type 2, uncontrolled (Chronic) Obesity (Chronic) Sleep apnea (Chronic) Surgical History History of coronary artery stent placement (Chronic) H/O hemorrhoidectomy (Chronic) removal of enlarged lymph node (Chronic) removal of lypoma (Chronic) Family History Mother CAD (coronary artery disease) Diabetes Social History Smoking Status: Never smoker second hand exposure: No alcohol intake: never substance use type: does not use ROS Const Constitutional: Positive for chills; no anorexia, body ache, fatigue, fever(s), frequent falls, decreased energy, malaise, night sweats, weakness, weight change, sleep problems, abnormal sleep pattern, change in appetite, other, headache(s), snoring or excessive sweating Eyes Eyes: No blurry vision, change in vision, double vision, discharge, dry eyes, bulging eyes, floaters, visual disturbances, eye pain, light sensitivity, spots in vision, tunnel vision or other ENT ENT: No abnormal hearing, ear pain, ear discharge, ear pressure, hearing loss, tinnitus, dizziness/vertigo, balance problems, nosebleed/epistaxis, nasal congestion, nasal obstruction, nose pain, sinus pressure, sinus pain, nasal discharge, post nasal drip, headache(s), facial pain, dental pain, dry mouth, bad breath, hoarseness, lip swelling, mouth lesions, mouth pain, sore throat, tongue swelling, throat swelling, other, difficulty swallowing or neck pain Resp Respiratory: Positive for cough and shortness of breath; no change in phlegm color, chest congestion, excessive phlegm production, hemoptysis, pain on inspiration, pain with cough, snoring, stridor, wheezing or other Cardio Cardiology: Positive for generalized swelling and lightheadedness; no chest pain at rest, chest pain with exertion, leg pain with exertion, excessive sweating, shortness of breath, dyspnea on exertion, irregular heart rhythm, orthopnea, radiating jaw, neck or arm pain, fast heart rate, slow heart rate, palpitations or other Gastro GI: Positive for heartburn; no abdominal pain, belching, bloating, change in bowel habits, change in stool character, coffee ground emesis, constipation, cramping, diarrhea, difficulty swallowing, feeling full early, excessive flatus, incontinent of stools, Vomiting blood/hematemesis, blood in stool, loose stools, Black,tarry stools, nausea/dyspepsia, pain with swallowing, vomiting or other Genitourinary Male: Positive for urinary hesitancy; no difficulty urinating, burning urination, painful urination, urinary incontinence, urinary frequency, urinary urgency, urinary retention, blood in urine, Frequent nighttime urination/ nocturia, post void dribbling, suprapubic fullness, side pain, sexual problems, genital lesions, genital itching, erectile dysfunction, penile discharge, difficulty with ejaculations, blood in semen, scrotal swelling, testicle lump, testicle pain or other Musc Musculoskeletal: No abnormal walking, joint pain, back pain, deformity, joint swelling, limited range of motion, loss of height, muscle cramps, muscle weakness, decreased muscle mass, body aches, neck pain, numbness, radiating pain into limb, stiffness, tingling or other Skin Skin: No acne, hair loss, change in hair, nail changes, boil, change in skin color, dry skin, redness, excessive hair growth, yellowing of the skin, lesions, itching, rash, skin pain, skin ulcer, sores, skin swelling, wounds or other Breast Breast: No other Neuro Neurology: No frequent falls, weakness, visual disturbances, abnormal hearing, headache(s), abnormal walking, numbness or tingling Psych Psychiatric: No abnormal sleep pattern, No change in appetite Endo Endocrine: No fatigue, other or excessive sweating Aller/Imm Allergy/Immunologic: No lip swelling, tongue swelling, throat swelling, wheezing or itchy eyes Assessment AND Plan Problems 1. Hypothyroidism (acquired) E03.9 2. Diabetes mellitus type 2 in obese E11.69; E66.9 3. Essential hypertension I10 Plan Control portions Food selections should be healthy Choose more low carb vegetables Avoid snacks and desserts. Drink water Eat more fresh foods, not canned or processed Eat more slowly Orders Orders: Medications New: Plan Detail Additional Comments 1. Please schedule follow up in 3 months. 2. Lab work one week before appointment. 3. Discussed importance of regular exercise and recommend starting or continuing a regular exercise program for good health. 4. The patient was encouraged to lose weight for good health 5. The importance of monitoring blood sugar regularly was reviewed. 6. The importance of monitoring the HBA1c level regularly was reviewed. 7. The importance of proper foot care and regularly checking feet to prevent sores and loss of limbs was reviewed. 8. The importance of keeping BP at or below 130/80 to prevent stroke, heart attacks, kidney failure, blindness was reviewed. Spent approximately 30 minutes with patient with over 50% of time spent in discussion and counseling regarding medication adjustment, symptoms and treatment of hypoglycemia, diet adherence, and checking BG before driving. Coding Level of Care Code Off vis,est,level 4 Diagnoses Hypothyroidism (acquired) E03.9 Diabetes mellitus type 2 in obese E11.69; E66.9 Essential hypertension I10 Hypertension type: essential hypertension 10/01/171952 <Electronically signed by Ashtyn ROBERTSON> Date Ashtyn ROBERTSON Cosigner Signature: Date (if applicable) CC: US ABDOMEN COMPLETE Observed: 08/25/2017 Status: F Source: [facility] 11:18 AM SYSTEM REPOSITORY Patient Name: BRADLEY KEYS Ultrasound Exam Date/Time 08/25/2017 10:59:36 EDT Exam US Abdomen Complete Ordering Physician MARISOL KESSLER, RAMON Loera Accession Number [id number] CPT4 Codes 51751 () Reason For Exam ABDOMINAL PAIN Report ULTRASOUND ABDOMEN: INDICATION: Generalized abdominal pain COMPARISON: None. Sonogram of the abdomen is performed. The liver is normal in echotexture. No hyper or hypo echoic masses are seen. There is no intrahepatic biliary ductal dilatation. The gallbladder is normally distended. There are no gallstones, internal echoes, wall thickening, or pericholecystic fluid collections. The common bile duct diameter of 3.8 mm is within normal limits. The pancreas is homogenous in echo texture. No obvious pancreatic mass or peripancreatic fluid collection is identified. The spleen is unremarkable and measures 12.4 x 4.8 x 9.8 cm. Cursory examination of the kidneys is performed. The right kidney measures 11.9 x 6.4 x 6.6 cm. The left kidney measures 12.8 x 6.6 x 7.1 cm. There is no hydronephrosis. There is no ascites. The visualized portions of the aorta and inferior vena cava are within normal limits. No sonographic Rocha's sign was elicited during the examination. IMPRESSION: Unremarkable ultrasound of the abdomen. Report Dictated on Workstation: [id number] Final Dictating Physician: DO CASTRO ALFRED Signed Date and Time: 08/25/2017 11:21 am Signed by: DO CASTRO ALFRED Transcribed Date and Time: 08/25/2017 11:22 Observed: 08/12/2017 Status: F Source: [facility] SURGICAL PATHOLOGY 9:55 AM SYSTEM REPOSITORY [id number] [facility] PATHOLOGY AND LABORATORY MEDICINE [address] [place] [id number] FINAL SURGICAL PATHOLOGY REPORT NAME: BRADLEY KEYS N [id number] : 1960 56 Y [place] [facility] NO.: [id number] LOCATION: 1XEO PROCEDURE 08/12/2017 DATE: SURGEON: HARMONY CULLEN M.D. RECEIVED 08/12/2017 DATE: ATTENDING: HARMONY CULLEN M.D. REPORT DATE: 08/13/2017 COPIES TO: DIAGNOSIS: STOMACH, ANTRUM, BIOPSY - SUPERFICIAL FRAGMENTS OF ANTRAL MUCOSA WITH SLIGHT FIBROSIS WITHIN LAMINA PROPRIA AND FEATURES OF REACTIVE GASTROPATHY. H&E STAIN IS NEGATIVE FOR HELICOBACTER PYLORI. MA/CHRIS <Sign Out DrDilip Signature> ADRIANA AIKEN M.D. CLINICAL INFORMATION: Mild heartburn, generalized abdominal pain SPECIMEN: GASTRIC BIOPSY GROSS DESCRIPTION: Antral biopsy Received in formalin is a segment of jacinto tissue 0.3 cm. Submitted in toto. (1 ns, 1) JCK/SSF Disclaimer: The following statement applies to all immunohistochemistry, in situ hybridization, molecular studies, and immunofluorescence testing. The use of one or more reagents in the above tests is regulated as an analyte specific reagent (ASR). These tests were developed and their performance characteristics determined by the clinical laboratories of [facility]. They have not been cleared by the US Food and Drug Administration (FDA). The FDA has determined that such clearance or approval is not necessary. All the above immunostains were performed on paraffin embedded tissue. Appropriate positive and negative controls (where applicable) were run in parallel with the patient's specimen; these controls showed expected staining pattern, with acceptable intensity of staining. Immunohistochemical assays have not been validated on decalcified tissues. Results should be interpreted with caution given the raised possibility of false negativity on decalcified specimens. Professional Performing Location: [place] [address]. DEPARTMENT OF PATHOLOGY AND LABORATORY MEDICINE [place], [place] [address] GLUCOSE,BEDSIDE Collected: 08/12/2017 Status: F Source: [facility] 9:28 AM SYSTEM REPOSITORY TYPE CODE TESTS RESULT OUT OF RANGE REFERENCE UNITS LAB BGLU 70-100 mg/dL High 147 Glucose,Beds carolyn Result Comment: Test performed by glucose meter. Results may be 10%-15% lower than serum/plasma values. (CLIA ID [id number]) Performed By: #### BGLU #### [address] [address] HEMOGRAM Collected: 08/12/2017 Status: F Source: [facility] 8:51 AM SYSTEM REPOSITORY TYPE CODE TESTS RESULT OUT OF RANGE REFERENCE UNITS LAB IWBC 3.6-10.7 10*3/uL WBC Normal 9.7 LAB RBC 4.40-5.90 10*6/uL RBC Normal 4.96 LAB HGB 13.0-18.0 g/dL Normal Hemoglobin 14.8 LAB HCT 40.0-52.0 % Normal Hematocrit 43.5 LAB MCV 80.0-98.0 fL MCV Normal 87.7 LAB MCH 26.0-34.0 pg MCH Normal 29.9 LAB MCHC 32.0-36.0 % MCHC Normal 34.0 LAB RDW 11.5-14.5 % RDW Normal 13.6 LAB PLT 140-440 10*3/uL Platelet Normal 222 LAB MPV 7.4-10.4 fL MPV Normal 8.7 Performed By: #### HEMOG, LIPD2, CMP3, MG3, IRON3, TSH4, FERR3, B12, FOLT3 #### [employer] [address] [place] [phone] #### VD25H #### [employer] [facility] [address] [place] [address] LIPID PANEL Collected: 08/12/2017 Status: F Source: [facility] 8:51 AM SYSTEM REPOSITORY TYPE CODE TESTS RESULT OUT OF RANGE REFERENCE UNITS LAB 3CHOL < 200 mg/dL Normal Cholesterol 116 LAB 3TRIG <150 mg/dL Abnormal Triglyceride 206 LAB HDLC 40-60 mg/dL Low HDL Cholesterol 30 LAB LDL4 <100 mg/dL Normal Low Density Lipoprotein 45 LAB CHLHD NA Chol/HDL 4 Result Comment: Ref Range: < 3 Low Risk for CHD 3-6 Mod Risk for CHD > 6 High Risk for CHD Performed By: #### HEMOG, LIPD2, CMP3, MG3, IRON3, TSH4, FERR3, B12, FOLT3 #### [employer] [address] [place] [phone] #### VD25H #### [employer] [facility] [address] [place] [address] COMP METABOLIC PANEL Collected: 08/12/2017 Status: F Source: [facility] 8:51 AM SYSTEM REPOSITORY TYPE CODE TESTS RESULT OUT OF RANGE REFERENCE UNITS LAB NA3 137-145 mmol/L Sodium Normal 143 LAB K3 3.5-5.1 mmol/L Normal Potassium 4.4 LAB CL3 98-107 mmol/L Chloride Normal 101 LAB CO23 22-30 mmol/L Carbon Normal Dioxide 29 LAB ANIN3 NA Anion Gap 13 LAB GLUC3 70-100 mg/dL High Glucose 119 LAB BUN3 7-20 mg/dL High Urea Nitrogen 29 LAB CRET3 0.52-1.25 mg/dL Normal Creatinine 1.04 LAB GF3BR >60 mL/min eGFR > 60.0 LAB GF3WR >60 mL/min eGFR OTHER > 60.0 Result Comment: Source- MDRD equation with creatinine calibration to IDMS(NKDEP) eGFR not recommended for drug dose adjustment LAB CA3 8.4-10.2 mg/dL Calcium Normal 9.5 LAB ALB3 3.5-5.0 g/dL Albumin, Serum Normal 4.4 LAB TP3 6.3-8.2 g/dL Total Protein Normal 6.8 LAB BILT3 0.2-1.3 mg/dL Normal Bilirubin,Total 0.5 LAB ALKP3 38-126 U/L Alkaline Normal Phosphatase 86 LAB ALT3 13-69 U/L ALT (SGPT) Normal 32 LAB AST3 15-46 U/L AST (SGOT) Normal 23 Performed By: #### HEMOG, LIPD2, CMP3, MG3, IRON3, TSH4, FERR3, B12, FOLT3 #### [employer] [address] [place] [phone] #### VD25H #### [employer] [address] [place] [address] MAGNESIUM Collected: 08/12/2017 Status: F Source: [facility] 8:51 AM SYSTEM REPOSITORY TYPE CODE TESTS RESULT OUT OF RANGE REFERENCE UNITS LAB MG3 1.6-2.3 mg/dL Normal Magnesium 2.1 Performed By: #### HEMOG, LIPD2, CMP3, MG3, IRON3, TSH4, FERR3, B12, FOLT3 #### [employer] [address] [place] [phone] #### VD25H #### [employer] [address] [facility] [place] [address] IRON, TOTAL Collected: 08/12/2017 Status: F Source: [facility] 8:51 AM SYSTEM REPOSITORY TYPE CODE TESTS RESULT OUT OF RANGE REFERENCE UNITS LAB IRON3 49-181 ug/dL Normal Iron, 90 Total Performed By: #### HEMOG, LIPD2, CMP3, MG3, IRON3, TSH4, FERR3, B12, FOLT3 #### [employer] [address] [place] [address] #### VD25H #### [employer] [address] [place] [address] THYROID STIM. Collected: 08/12/2017 Status: F Source: [facility] H[facility]ONE 8:51 AM SYSTEM REPOSITORY TYPE CODE TESTS RESULT OUT OF REFERENCE UNITS RANGE LAB TSH4 0.465-4.680 uU/mL High Thyroid Stim. 7.725 Hormone Performed By: #### HEMOG, LIPD2, CMP3, MG3, IRON3, TSH4, FERR3, B12, FOLT3 #### [employer] [address] [place] [address] #### VD25H #### [employer] [address] [place] [address] FERRITIN Collected: 08/12/2017 Status: F Source: [facility] 8:51 AM SYSTEM REPOSITORY TYPE CODE TESTS RESULT OUT OF RANGE REFERENCE UNITS LAB 3FERR 18-464 ng/mL Normal Ferritin 278 Performed By: #### HEMOG, LIPD2, CMP3, MG3, IRON3, TSH4, FERR3, B12, FOLT3 #### [employer] [address] [place] [address] #### VD25H #### [employer] [address] [place] [address] VITAMIN B12 Collected: 08/12/2017 Status: F Source: [facility] 8:51 AM SYSTEM REPOSITORY TYPE CODE TESTS RESULT OUT OF RANGE REFERENCE UNITS LAB B12 239-931 pg/mL Normal Vitamin B12 700 Performed By: #### HEMOG, LIPD2, CMP3, MG3, IRON3, TSH4, FERR3, B12, FOLT3 #### [employer] [address] [place] [address] #### VD25H #### [employer] [facility] [address] [place] [address] FOLATE Collected: 08/12/2017 Status: F Source: [facility] 8:51 AM SYSTEM REPOSITORY TYPE CODE TESTS RESULT OUT OF RANGE REFERENCE UNITS LAB 3FOLT 2.8-20.0 ng/mL Normal Folate 15.1 Performed By: #### HEMOG, LIPD2, CMP3, MG3, IRON3, TSH4, FERR3, B12, FOLT3 #### [employer] [address] [place] [address] #### VD25H #### [employer] [facility] [address] [place] [address] VIT D 25-OH, TOTAL Collected: 08/12/2017 Status: F Source: [facility] 8:51 AM SYSTEM REPOSITORY TYPE CODE TESTS RESULT OUT OF RANGE REFERENCE UNITS LAB VD25H 30-100 ng/mL Normal Vit D 86 25-OH, Total Result Comment: Therapy is based on measurement of Total 25-OHD with the following classification levels: Less than 20 ng/mL: Indicative of Vit D deficiency 20-30 ng/mL: Suggests Vit D insufficiency Optimal: Greater than or equal to 30 ng/mL Test performed by [employer] Competitive Immunoassay, measuring Total Vitamin D, not individual fractions. Performed By: #### HEMOG, LIPD2, CMP3, MG3, IRON3, TSH4, FERR3, B12, FOLT3 #### [employer] [address] [place] [address] #### VD25H #### [employer] [facility] [address] [place] [address] LIPID PANEL Collected: 08/12/2017 Status: F Source: [facility] 8:51 AM SYSTEM REPOSITORY Order Comment: Pt fasting TYPE CODE TESTS RESULT OUT OF RANGE REFERENCE UNITS LAB 3CHOL < 200 mg/dL Normal Cholesterol 119 LAB 3TRIG <150 mg/dL Abnormal Triglyceride 209 LAB HDLC 40-60 mg/dL Low HDL Cholesterol 30 LAB LDL4 <100 mg/dL Normal Low Density Lipoprotein 47 LAB CHLHD NA Chol/HDL 4 Result Comment: Ref Range: < 3 Low Risk for CHD 3-6 Mod Risk for CHD > 6 High Risk for CHD Performed By: #### LIPD2, LFT3 #### [employer] [address] [place] [address] HEPATIC FUNCTION Collected: 08/12/2017 Status: F Source: [facility] 8:51 AM SYSTEM REPOSITORY Order Comment: Pt fasting TYPE CODE TESTS RESULT OUT OF RANGE REFERENCE UNITS LAB ALB3 3.5-5.0 g/dL Albumin, Normal Serum 4.4 LAB TP3 6.3-8.2 g/dL Total Normal Protein 6.8 LAB BILT3 0.2-1.3 mg/dL Normal Bilirubin,Total 0.5 LAB BILD3 0.0-0.3 mg/dL Normal Bilirubin,Direct 0.0 LAB ALKP3 38-126 U/L Alkaline Normal Phosphatase 89 LAB ALT3 13-69 U/L ALT (SGPT) Normal 28 LAB AST3 15-46 U/L AST (SGOT) Normal 21 Performed By: #### LIPD2, LFT3 #### [employer] [address] [id number] ZINC, SERUM Collected: 08/12/2017 Status: F Source: [facility] 8:51 AM SYSTEM REPOSITORY TYPE CODE TESTS RESULT OUT OF REFERENCE UNITS RANGE LAB ZINCR 60-120 ug/dL Zinc, 85 Serum Result Comment: INTERPRETIVE INFORMATION: Zinc, Serum or Plasma Circulating zinc concentrations are dependent on albumin status and are depressed with malnutrition. Zinc may also be lowered with infection, inflammation, stress, oral contraceptives, and . Zinc may be elevated with zinc supplementation or fasting. Elevated zinc concentrations may interfere with copper absorption. Test developed and characteristics determined by [facility]. See Compliance Statement B: [employer]CS Performed by [facility], [facility] [place] [address] [email or web address] ([employer]), Tony Brambila MD - Lab. Director Performed By: #### ZINC2, WBB1O #### The performing lab is in the report. VITAMIN B1,WHOLE Collected: 08/12/2017 Status: F Source: [facility] BLOOD 8:51 AM SYSTEM REPOSITORY TYPE CODE TESTS RESULT OUT OF REFERENCE UNITS RANGE LAB WBB1R 70-180 nmol/L Vitamin 110 B1,Whole Blood Result Comment: INTERPRETIVE INFORMATION: Vitamin B1, Whole Blood This assay measures the concentration of thiamine diphosphate (TDP), the primary active form of vitamin B1. Approximately 90 percent of vitamin B1 present in whole blood is TDP. Thiamine and thiamine monophosphate, which comprise the remaining 10 percent, are not measured. Test developed and characteristics determined by [facility]. See Compliance Statement B: [employer] Performed by [facility], [facility] [place] [address] [email or web address]), Tony Brambila MD - Lab. Director Performed By: #### ZINC2, WBB1O #### The performing lab is in the report. CARDIOLOGY VISIT Observed: 08/07/2017 Status: F Source: [facility] REPORT 1:42 PM [facility] REPOSITORY [facility] [address] [place] [address] OFFICE VISIT Date of Service: 08/07/17 MR#: [id number] Acct: [id number] Name: BRADLEY KEYS Rep #: [id number] : 1960 Provider: Silvio Ortega MD Age/Sex: 56/M Location: [facility] Status: Signed HPI HPI Chief Complaint: Routine f/u Details: HPI Referring physician Dr. Jensen Ralph Mr. Keys is a very pleasant 56-year-old severely obese diabetic gentleman who presents to the office today for a cardiovascular visit. He has a history of hypertension, hypercholesterolemia, and coronary artery disease status post angioplasty and bare-metal stenting to the LAD by Dr. Ortega at [facility] on 02/14/09. At that time, he received a 4.5X 16 Veriflex bare metal stent, postdilated with a noncompliant 4.5 mm balloon. His remaining coronary arteries had minimal nonobstructive disease. Patient had a repeat catheterization in October 2009, which demonstrated widely patent stent, and nonobstructive disease of his left circumflex and right coronary artery. Pharmacologic nuclear stress test in 07/2014 demonstrated no inducible ischemia, inferior wall attenuation artifact/previous infarct noted, and preserved ejection fraction of 61%. Patient's most recent catheterization took place on 02/03/17 which demonstrated widely patent stents, nonobstructive coronary artery disease and normal LV function. He is now here for preoperative stratification for upcoming bariatric surgery. Patient reports that he been compliant with his medications and denies any chest pain, angina, shortness of breath or dyspnea on exertion. He is taking and tolerating his medicines well. Patient states that he may have his bariatric surgery done in February 2018. In our office today's blood pressure is 110/70, and pulse is 72 and regular. His physical exam shows cleear lungs bilaterally, regular rate and rhythm, normal S1/S2, no S3 or S4. He has 2+ bilateral lower extremity edema up to his knees, and 2+ DP and PT pulses bilaterally. His lipids as of 05/07/16 show an LDL of 65 and HDL 33. Intake Vital Signs08/07/17 Height 5 ft 7 in 08/07/17 Weight: 355 lb 08/07/17 Body Mass Index (BMI) 55.5 08/07/17 Blood Pressure 110/70 08/07/17 Blood Pressure Location Lt brachial Intake Visit Reasons: 6 M FU Closer On Required: No Accompanied by: Is patient in pain?: No Allergies celecoxib [From Celebrex] Allergy (Verified 08/07/17 13:00) Unknown Medications Alogliptin Benzoate [Alogliptin] 25 mg PO DAILY 01/31/17 [History Confirmed 08/07/17] Aspirin [Aspirin EC] 81 mg PO DAILY 01/31/17 [History Confirmed 08/07/17] Benefiber 1 tab PO DAILY 01/31/17 [History Confirmed 08/07/17] Citalopram Hydrobromide [Citalopram HBr] 20 mg PO DAILY 01/31/17 [History Confirmed 08/07/17] Metformin HCl 500 mg PO DAILY 01/31/17 [History Confirmed 08/07/17] Multivitamin [Multiple Vitamins] 1 ea PO DAILY 01/31/17 [History Confirmed 08/07/17] Mupirocin Calcium [Bactroban Cream] 1 applic TOPICAL DAILY 01/31/17 [History Confirmed 08/07/17] Nitroglycerin [Nitrostat] 0.4 mg SUBLINGUAL Q5M PRN 01/31/17 [History Confirmed 08/07/17] Rosuvastatin Calcium [Crestor] 40 mg PO DAILY 01/31/17 [History Confirmed 08/07/17] Valsartan [Diovan] 80 mg PO DAILY 01/31/17 [History Confirmed 08/07/17] blood sugar diagnostic strips See Dose Instructions .ROUTE .MEDSUPPLY #20 ea 02/24/17 [History Confirmed 08/07/17] potassium chloride ER 20 mEq tablet,extended release(part/cryst) 20 meq PO DAILY #30 tab 06/04/17 [Rx Confirmed 08/07/17] insulin degludec (U-100) 100 unit/mL (3 mL) subcutaneous pen 52 unit SC BID #15 ml 06/30/17 [Rx Confirmed 08/07/17] cranberry fruit concentrate 250 mg chewable tablet 250 mg PO TID 07/21/17 [History Confirmed 08/04/17] furosemide 40 mg tablet 40 mg PO BID #60 tab 07/29/17 [Rx Confirmed 08/07/17] cholecalciferol (vitamin D3) 50,000 unit capsule 50,000 unit PO QWEEK 08/07/17 [History Confirmed 08/07/17] fluconazole 200 mg tablet 200 mg PO .COMPLEX 08/07/17 [History Confirmed 08/07/17] insulin aspart U-100 100 unit/mL subcutaneous pen 26 unit SC BID ml 08/07/17 [History] ranitidine 150 mg tablet 150 mg PO BID 08/07/17 [History Confirmed 08/07/17] Ejection fraction %: 65 to 70 (65% per echo 07/30/2016 at [facility]) [facility] Medical History Atherosclerotic heart disease of [place] coronary artery without angina pectoris (Chronic) HTN (hypertension) (Chronic) Hyperlipidemia (Chronic) HTN (hypertension) (Chronic) Diabetes mellitus type 2 in obese (Chronic) Allergy-induced asthma (Chronic) CAD (coronary artery disease) (Chronic) Chronic diarrhea (Chronic) Diabetes type 2, uncontrolled (Chronic) Obesity (Chronic) Sleep apnea (Chronic) Surgical History History of coronary artery stent placement (Chronic) H/O hemorrhoidectomy (Chronic) removal of enlarged lymph node (Chronic) removal of lypoma (Chronic) Family History Mother CAD (coronary artery disease) Diabetes Social History Smoking Status: Never smoker second hand exposure: No alcohol intake: never substance use type: does not use ROS Const Const: Negative for body ache, fever(s), chills, night sweats, daytime sleepiness, difficulty sleeping, weight gain, weight loss, increased appetite, poor appetite, anorexia, other, frequent falls, headache(s), weakness, fatigue or excessive sweating Eyes Eyes: Negative for blind spots, loss of peripheral vision, transient loss of vision, change in vision, floaters, tunnel vision, other, blurry vision or double vision ENT ENT: Positive for tinnitus; negative for hearing loss, Nosebleed/epistaxis, post nasal drip, lip swelling, tongue swelling, bleeding gums, hoarseness, neck pain, dry mouth, other, balance problems, dizziness or headache(s) Cardio Chest Pain: No Palpitations: No Edema: Bilateral (lower extremities) Muscle aches with walking: None Resp Respiratory: Positive for SOB with activity, SOB at rest and Cough (non productive); negative for SOB orthopnea\SOB lying down, Coughing up blood/hemoptysis, chest congestion, pain on inspiration, snoring, stridor, wheezing, crackles, paroxysmal nocturnal dyspnea or other GI GI: Positive for heartburn; negative nausea, vomiting, constipation, belching, bloating, cramping, vomiting blood/hematemesis, bright, red blood in stools, black,tarry stools, loose stools, Difficulty Swallowing or other : Positive for erectile dysfunction; negative for hematuria, frequent nighttime urination/ nocturia or abnormal vaginal bleeding Musc Musc: Negative for muscle aches/ myalgia, muscle weakness, joint pain or balance problems Skin Skin: Negative redness, non-healing lesions, rash, unusual bruising, skin ulcer, wounds, jaundice or other Neuro Neuro: Negative for dizziness, lightheadedness, near syncope, syncope, orthostatic symptoms, frequent falls, headache(s), weakness, confusion, memory loss, restless legs, blurry vision, double vision, vertigo, seizures, lack of coordination or other Delta Hematologic/Lymphatic: Negative for easy bleeding, easy bruising, enlarged lymph nodes or other Endo Endo: Negative for fatigue, cold intolerance, heat intolerance, excessive sweating, flushing, increased thirst/drinking, increased hunger, hair loss, hair growth or other Psych Psych: Negative for anxiety, depression, thoughts of harming anyone, thoughts of harming yourself, visual hallucinations, panic attacks or audible hallucinations Allergy Allergy/Immunology: Negative for throat swelling, Negative for hives, Negative for lip swelling, Negative for tongue swelling, Negative for rash Cardiology Exam Const Appearance: cooperative, healthy appearing and no acute distress Nutritional Appearance: well nourished Orientation: alert, oriented x3 and oriented to person Head Head: normal to inspection, atraumatic and normocephalic Nose: external nose normal Face and Sinus: face symmetric Mouth: oral mucosae normal Eyes General: appearance normal, both eyes and all related structures Eyelids: eyelids normal Conjunctivae: conjunctivae normal Pupils: PERRL and normal by confrontation EOM: EOM intact bilaterally Neck Neck: normal visual inspection and full ROM Carotids: normal carotid upstroke Chest Chest inspection: normal inspection of the chest Auscultation: Bilateral: Clear to Auscultation Cardio Palpation: normal PMI Rate: regular rate Rhythm: regular rhythm Heart sounds: S1 normal and S2 normal GI GI: normal to inspection, no hepatosplenomegaly and bowel sounds present Neuro General: alert, oriented x3, awake, CN's II-XI intact bilaterally and moves all extremities Skin Skin: no rashes or lesions noted Extremities Pulses: Normal: Right Femoral Pulse, Left Femoral Pulse, Right Dorsalis Pedis Pulse, Left Dorsalis Pedis Pulse, Right Posterior Tibial Pulse, Left Posterior Tibial Pulse, Right Radial Pulse, Left Radial Pulse Lower Extremity Edema: None: Bilateral Psych Psychological: normal affect Assessment AND Plan 1. Preop cardiovascular exam Z01.810 Plan 1. Preoperative stratification: The patient arrives today for preoperative stratification for bariatric surgery by doctor Cullen at [facility] possibly in February 2018 or later. Patient's last heart catheterization was in January 2017 which demonstrated widely patent stent and nonobstructive coronary disease. The patient has remained asymptomatic since that time, and I do not believe he requires repeat stress testing within the 1 year window from January 2017 to January 2018 unless and until the patient has recurrent symptoms. I would however recommend the patient undergo a non-walking dobutamine echocardiogram in December 2017 in preparation for risk stratification for his bariatric surgery. We will have the patient return in 4 months time to reevaluate at that time. If the patient has recurrent symptoms or has an abnormal stress test at that time, he will require a diagnostic coronary angiogram prior to his bariatric surgery. In the meantime his blood pressure heart rate are well-controlled. I recommended he continue baby aspirin, Lasix, and valsartan. 2. Atherosclerotic heart disease of [place] coronary artery without angina pectoris I25.10 Plan 2. Coronary artery disease: No anginal symptoms at this time. No indication for any additional testing. He has not required any sublingual nitroglycerin Orders Orders: 3. Hyperlipidemia E78.5 Plan . 3. Hyperlipidemia: We will repeat his lipid profile. Continue Crestor for now. His LDL should be less than 70. 4. Return office in 4 months. This note was generated using a voice recognition system and there may be incorrect words, spelling or punctuation that were not noted when reviewing the office note prior to saving. Orders Orders: Plan Detail Follow Up +4Months. ([facility] only) Coding Level of Care Code Off vis,est,level 3 Diagnoses Preop cardiovascular exam Z01.810 Atherosclerotic heart disease of [place] coronary artery without angina pectoris I25.10 Hyperlipidemia E78.5 Coding Level of Care Code Off vis,est,level 3 Diagnoses Preop cardiovascular exam Z01.810 Atherosclerotic heart disease of [place] coronary artery without angina pectoris I25.10 Hyperlipidemia E78.5 08/07/17 1342 <Electronically signed by Silvio Ortega MD> Date Silvio Ortega MD Cosigner Signature: Date (if applicable) CC: [facility] VISIT Observed: 07/23/2017 Status: F Source: [facility] REPORT 8:50 AM [facility] REPOSITORY [facility] [address] [place] [address] OFFICE VISIT Date of Service: 07/21/17 MR#: [id number] Acct: [id number] Name: BRADLEY KEYS Rep #: [id number] : 1960 Provider: Ashtyn Reyes NP Age/Sex: 56/M [place] [facility] [place] Signed HPI History of present illness Bradley is a 56 year old male who presents for follow up of diabetes type 2, Has continued to check his BG for the most part 2-3 times daily. Currently taking tresiba 52 units twice daily and novolog 25 units three times daily, and alogliptin 25mg daily. At time of visit: -Pt denies symptoms of hypertensive emergency (CP,SOB,FONSECA, or blurred vision) and hypotension(dizziness or lightheadedness) -Pt denies symptoms of hypoglycemia ( sweaty, confusion, anxiety, tremor, hunger, palpitations) and hyperglycemia ( polydipsia, polyuria) -Pt denies potential medication adverse effect. Hypoglycemia Aware of hypoglycemia: When awake Able to self treat low BG: Yes Frequent low Blood sugar: No Has supply of glucagon: Yes Since our last visit he denies excessive thirst, increased frequency of urination, chest pain or dyspnea. Follows a diabetic diet, Is compliant with medication and is tolerating without side effects. Type: type 2 Glucose control symptoms: Reports high post-meal glucose Weight and fatigue symptoms: Reports weight loss; denies snoring Cardiopulmonary symptoms: Denies chest pain at rest, dyspnea on exertion, lightheadedness or myalgias GI symptoms: Denies constipation, diarrhea, nausea/dyspepsia or vomiting Skin and extremity symptoms: Denies erectile dysfunction Other symptoms: Denies blurry vision or change in vision Self monitoring: Yes Glucometer type: freestyle Before breakfast BG range: 150 Before dinner BG range: 140 Dietary compliance: Diabetes: improved Diabetes education in past year: Yes Glucose testing: demonstrates correct use of meter Sick day education - understands ketone testing: Yes Exam Const General: cooperative Nutritional Appearance: overweight Orientation: oriented x3 HENMT Head: normal to inspection, atraumatic Ears: hearing grossly normal bilaterally Mouth: oral mucosae normal, moist mucous membranes Eyes General: appearance normal, both eyes and all related structures Sclera: sclerae normal Pupils: PERRL Neck Neck: normal visual inspection Neck mass: No Chest Chest palpation AND inspection: deferred Resp Effort AND Inspection: normal respiratory effort, able to speak in complete sentences, symmetric chest movement Auscultation: Bilateral: Clear to Auscultation Cardio Rate: regular rate Rhythm: regular rhythm Heart Sounds: S1 normal, S2 normal GI Inspection: normal to inspection Auscultation: normal bowel sounds General: deferred Skin General: no rashes or lesions noted Diabetic Foot Pulses: L dorsalis pedis pulse: diminished, R dorsalis pedis pulse: diminished Monofilament test: Left foot: abnormal, Right foot: abnormal Neuro General: oriented x3, moves all extremities Cranial Nerves: hearing normal Cognition: normal cognition Speech: speech normal Gait: normal gait Sensory Exam: no sensory deficits noted Extrem General: normal exam except as noted (Has pedal edema) Psych Appearance: grossly normal Mood: congruent mood Affect: normal affect Speech and Movement: speech and movement normal Thought Process: normal Thought Content: normal Judgment: fair Type: type 2 Weight and fatigue symptoms: Denies snoring Cardiopulmonary symptoms: Reports lightheadedness; denies chest pain at rest, dyspnea on exertion or myalgias GI symptoms: Denies constipation, diarrhea, nausea/dyspepsia or vomiting Skin and extremity symptoms: Denies erectile dysfunction Other symptoms: Denies blurry vision or change in vision Intake Vital Signs07/21/17 Height 5 ft 7 in 07/21/17 Weight: 356 lb 8 oz 07/21/17 Body Mass Index (BMI) 55.8 07/21/17 Blood Pressure 125/81 07/21/17 Blood Pressure Location Lt popliteal 07/21/17 Blood Pressure Position Sitting Intake Visit Reasons: Diabetes Mellitus Type 2 Closer On Required: No Accompanied by: Is patient in pain?: No Allergies celecoxib [From Celebrex] Allergy (Verified 07/21/17 12:53) Unknown Medications Furosemide [Lasix] 40 mg PO BID 07/21/14 [History Confirmed 07/21/17] Alogliptin Benzoate [Alogliptin] 25 mg PO DAILY 01/31/17 [History Confirmed 07/21/17] Aspirin [Aspirin EC] 81 mg PO DAILY 01/31/17 [History Confirmed 07/21/17] Benefiber 1 tab PO DAILY 01/31/17 [History Confirmed 07/21/17] Citalopram Hydrobromide [Citalopram HBr] 20 mg PO DAILY 01/31/17 [History Confirmed 07/21/17] Ergocalciferol [Vitamin D] 50,000 unit PO Q7D 01/31/17 [History Confirmed 07/21/17] Metformin HCl 500 mg PO DAILY 01/31/17 [History Confirmed 07/21/17] Multivitamin [Multiple Vitamins] 1 ea PO DAILY 01/31/17 [History Confirmed 07/21/17] Mupirocin Calcium [Bactroban Cream] 1 applic TOPICAL DAILY 01/31/17 [History Confirmed 07/21/17] Nitroglycerin [Nitrostat] 0.4 mg SUBLINGUAL Q5M PRN 01/31/17 [History Confirmed 07/21/17] Ranitidine [Zantac] 150 mg PO BID PRN 01/31/17 [History Confirmed 07/21/17] Rosuvastatin Calcium [Crestor] 40 mg PO DAILY 01/31/17 [History Confirmed 07/21/17] Valsartan [Diovan] 80 mg PO DAILY 01/31/17 [History Confirmed 07/21/17] blood sugar diagnostic strips See Dose Instructions .ROUTE .MEDSUPPLY #20 ea 02/24/17 [History Confirmed 07/21/17] insulin aspart U-100 100 unit/mL subcutaneous pen 25 unit SC TID #30 ml 02/24/17 [Rx Confirmed 07/21/17] potassium chloride ER 20 mEq tablet,extended release(part/cryst) 20 meq PO DAILY #30 tab 06/04/17 [Rx Confirmed 07/21/17] insulin degludec (U-100) 100 unit/mL (3 mL) subcutaneous pen 52 unit SC BID #15 ml 06/30/17 [Rx Confirmed 07/21/17] cranberry fruit concentrate 250 mg chewable tablet 250 mg PO TID 07/21/17 [History Confirmed 07/21/17] Nurse's Note: blood sugars : low : 87 high : 219 [facility] Medical History Allergy-induced asthma (Acute) CAD (coronary artery disease) (Acute) Chronic diarrhea (Acute) Diabetes type 2, uncontrolled (Acute) H/O heart artery stent (Acute) Hyperlipidemia (Acute) Obesity (Acute) Sleep apnea (Acute) removal of enlarged lymph node (Acute) removal of lypoma (Acute) HTN (hypertension) (Chronic) Surgical History H/O hemorrhoidectomy (Acute) Family History Mother CAD (coronary artery disease) Diabetes Social History Smoking Status: Never smoker second hand exposure: No alcohol intake: never substance use type: does not use ROS Const Constitutional: Positive for chills; no anorexia, body ache, fatigue, fever(s), frequent falls, decreased energy, malaise, night sweats, weakness, weight change, sleep problems, abnormal sleep pattern, change in appetite, other, headache(s), snoring or excessive sweating Eyes Eyes: No blurry vision, change in vision, double vision, discharge, dry eyes, bulging eyes, floaters, visual disturbances, eye pain, light sensitivity, spots in vision, tunnel vision or other ENT ENT: No abnormal hearing, ear pain, ear discharge, ear pressure, hearing loss, tinnitus, dizziness/vertigo, balance problems, nosebleed/epistaxis, nasal congestion, nasal obstruction, nose pain, sinus pressure, sinus pain, nasal discharge, post nasal drip, headache(s), facial pain, dental pain, dry mouth, bad breath, hoarseness, lip swelling, mouth lesions, mouth pain, sore throat, tongue swelling, throat swelling, other, difficulty swallowing or neck pain Resp Respiratory: Positive for cough and shortness of breath; no change in phlegm color, chest congestion, excessive phlegm production, hemoptysis, pain on inspiration, pain with cough, snoring, stridor, wheezing or other Cardio Cardiology: Positive for generalized swelling and lightheadedness; no chest pain at rest, chest pain with exertion, leg pain with exertion, excessive sweating, shortness of breath, dyspnea on exertion, irregular heart rhythm, orthopnea, radiating jaw, neck or arm pain, fast heart rate, slow heart rate, palpitations or other Gastro GI: No abdominal pain, belching, bloating, change in bowel habits, change in stool character, coffee ground emesis, constipation, cramping, diarrhea, heartburn, difficulty swallowing, feeling full early, excessive flatus, incontinent of stools, Vomiting blood/hematemesis, blood in stool, loose stools, Black,tarry stools, nausea/dyspepsia, pain with swallowing, vomiting or other Genitourinary Male: Positive for difficulty urinating, burning urination, painful urination and urinary hesitancy; no urinary incontinence, urinary frequency, urinary urgency, urinary retention, blood in urine, Frequent nighttime urination/ nocturia, post void dribbling, suprapubic fullness, side pain, sexual problems, genital lesions, genital itching, erectile dysfunction, penile discharge, difficulty with ejaculations, blood in semen, scrotal swelling, testicle lump, testicle pain or other Musc Musculoskeletal: No abnormal walking, joint pain, back pain, deformity, joint swelling, limited range of motion, loss of height, muscle cramps, muscle weakness, decreased muscle mass, body aches, neck pain, numbness, radiating pain into limb, stiffness, tingling or other Skin Skin: Positive for sores (water blister r lower leg); no acne, hair loss, change in hair, nail changes, boil, change in skin color, dry skin, redness, excessive hair growth, yellowing of the skin, lesions, itching, rash, skin pain, skin ulcer, skin swelling, wounds or other Breast Breast: No other Neuro Neurology: No frequent falls, weakness, visual disturbances, abnormal hearing, headache(s), abnormal walking, numbness or tingling Psych Psychiatric: No abnormal sleep pattern, No change in appetite Endo Endocrine: No fatigue, other or excessive sweating Aller/Imm Allergy/Immunologic: No lip swelling, tongue swelling, throat swelling, wheezing or itchy eyes Assessment AND Plan Problems 1. Diabetes mellitus type 2 in obese E11.69; E66.9 2. Essential hypertension I10 3. MARKY (obstructive sleep apnea) G47.33 4. Hyperlipidemia associated with type 2 diabetes mellitus E11.; E78.5 Plan Detail Additional Comments 1. Please schedule follow up in 3 months. 2. Lab work one week before appointment. 3. Discussed importance of regular exercise and recommend starting or continuing a regular exercise program for good health. 4. The patient was encouraged to lose weight for good health 5. The importance of monitoring blood sugar regularly was reviewed. 6. The importance of monitoring the HBA1c level regularly was reviewed. 7. The importance of prper foot care and regularly checking feet to prevent sores and loss of limbs was reviewed. 8. The importance of keeping BP at or below 130/80 to prevent stroke, heart attacks, kidney failure, blindness was reviewed. Spent approximately 30 minutes with patient with over 50% of time spent in discussion and counseling regarding medication adjustment, symptoms and treatment of hypoglycemia, diet adherence, and checking BG before driving. Coding Level of Care Code Off vis,est,level 4 Diagnoses Diabetes mellitus type 2 in obese E11.69; E66.9 Essential hypertension I10 Hypertension type: essential hypertension MARKY (obstructive sleep apnea) G47.33 Hyperlipidemia associated with type 2 diabetes mellitus .; E78.5 Time Spent (min) 30 07/23/17 0850 <Electronically signed by Ashtyn ROBERTSON> Date Ashtyn Reyes STABLE HAND-C Cosigner Signature: Date (if applicable) CC: ALLERGIES ALLERGIES DATE TYPE / CODE NAME / CODE REACTION SEVERITY SOURCE 03/13/2018 Drug celecoxib/F0 Rash MO [facility] Allergy/4160 [id number]([facility] [address]25(SNOMED ORM) Repository CT) ENCOUNTERS ENCOUNTERS ADMIT/DISCHARGE ACCOUNT NUMBER ADMITTING ENCOUNTER LOCATION SOURCE CLASS 04/02/2018 [id number] Ambulatory [facility] ding:CVS Repository 04/01/2018 [id number] Ambulatory [facility] Repository 03/18/2018 [id number] [facility] ding:LABSPEC Repository 03/13/2018/03/13/20 [id number] Ambulatory [facility]Building: [place] 18 [facility] Repository 03/13/2018 [id number] Ambulatory [facility] ding:LAB Repository 03/11/2018/03/11/20 [id number] Ambulatory BMSBuilding: N[place] 18 [facility] Repository 03/06/2018 [id number] Ambulatory [facility] ding:RAD Repository 03/06/2018/03/06/20 [id number] Ambulatory BMSBuilding: [place] 18 [facility] Repository 03/06/2018 [id number] Ambulatory [facility] Repository 03/06/2018 [id number] Ambulatory [facility] Repository 03/05/2018 [id number] Ambulatory [facility] Repository 03/05/2018 [id number] Ambulatory [facility] Repository 03/02/2018 [id number] Ambulatory [facility] Repository 02/22/2018 [id number] Inpatient BuildinA [facility] Encounter 6WRoom: System [id number]: Repository [id number] 02/21/2018/02/23/20 [id number] Emergency Nguy[place]n [place] 18 [facility] ding:ED Repository 02/20/2018 [id number] Ambulatory [facility] Repository 02/17/2018 [id number] Ambulatory [facility] Repository 02/16/2018/02/17/20 [id number] Emergency Nguy[place]n [place] 18 [facility] ding:ED Repository 02/09/2018/02/10/20 [id number] Ambulatory BMSBuilding: [place] 18 [facility] Repository 02/03/2018 [id number] Ambulatory [facility] Repository 01/30/2018/01/31/20 [id number] Ambulatory BMSBuilding: N[place]n 18 [facility] Repository 01/27/2018 [id number] Ambulatory [facility] Repository 01/26/2018 [id number] Inpatient [address] [place] [address] 4ERoom: System [id number]: Repository [id number] 01/22/2018 [id number] Ambulatory [facility] Repository 01/19/2018 [id number] Ambulatory [facility] Repository 01/19/2018 [id number] Ambulatory [facility] Repository 01/19/2018 [id number] Ambulatory [facility] Repository 01/08/2018 [id number] Ambulatory [facility] Repository 01/08/2018 [id number] Ambulatory [facility] Repository 12/29/2017 [id number] Ambulatory [facility] Repository 12/26/2017 [id number] Ambulatory [facility] Repository 12/12/2017 [id number] [place]ulatory [place] [facility] ding:CVS Repository 12/12/2017 [id number] Ambulatory B[place]Building: [place] [facility] Repository 12/05/2017/12/06/19 [id number] Ambulatory BMSBuilding: N[place]n 18 [facility] Repository 11/27/2017 [id number] Ambulatory [facility] Repository 11/25/2017/11/26/19 [id number] Ambulatory Nguyễn [place] 18 [facility] ding:EN Repository 11/25/2017 [id number] Ambulatory BMSBuilding: N[place]n [facility] Repository 11/10/2017 [id number] Ambulatory [facility] Repository 11/07/2017/11/08/19 [id number] Ambulatory BMSBuilding: [place] 18 [facility] Repository 11/06/2017/11/07/19 [id number] Ambulatory BMSBuilding: N[place]n 18 [facility] Repository 10/31/2017/11/01/19 [id number] Emergency Nguy[place]n [place] 18 [facility] ding:ED Repository 10/29/2017 [id number] Ambulatory BMSBuilding: Nguyễn [facility] Repository 10/20/2017 [id number] Ambulatory [facility] Repository 10/01/2017 [id number] Ambulatory [facility] Repository 10/01/2017 [id number] Ambulatory [facility] Repository 09/25/2017/09/26/19 [id number] Ambulatory BMSBuilding: [place] 18 [facility] Repository 09/24/2017 [id number] Ambulatory [facility] Repository 09/04/2017 [id number] Ambulatory [facility] Repository 08/25/2017 [id number] Ambulatory [facility] Repository 08/21/2017 [id number] Ambulatory [facility] Repository 08/21/2017 [id number] Ambulatory [facility] Repository 08/12/2017 [id number] Ambulatory [facility] Repository 08/12/2017 [id number] Ambulatory [facility] Repository 08/12/2017 [id number] Ambulatory [facility] Repository 08/07/2017/08/08/19 [id number] Ambulatory BMSBuilding: [place] 18 [facility] Repository 08/04/2017 [id number] Ambulatory B[facility]Building: [place] [facility] Repository 07/31/2017 [id number] Ambulatory [facility] Repository 07/29/2017 [id number] Ambulatory [facility] Repository 07/21/2017/07/22/19 [id number] Ambulatory BMSBuilding: [place] 18 [facility] Repository 07/03/2017 [id number] Ambulatory [facility] Repository 07/03/2017 [id number] Ambulatory [facility] Repository 07/02/2017 [id number] Ambulatory [facility] Repository 06/11/2017 [id number] Ambulatory [facility] Repository 05/29/2017 [id number] Ambulatory [facility] Repository 04/23/2017 [id number] Ambulatory [facility] Repository 04/22/2017 [id number] Ambulatory Nguyễn [facility] ding: Repository PAYERS PAYERS ENCOUNTER GUARANTOR PAYER SUBSCRIBER SOURCE 04/02/2018 BRADLEY Romo Primary BRADLEY [id number] [place] Insurance:CARESOURCEP REEVESDOB: [facility] Number: [id number] [facility] [address]Thg: [phone]) [id number] Repository [phone] () Date:2018-03-13[address]ATTN: [place] [address]ZT: 04/02/2018 Secondary NOT GIVENUNK Nguyễn Insurance:SELF PAY [facility] Number: Effective Repository Date:2018-03-13 04/01/2018 [facility] Insurance:CareSourceP ReevesDOB: System [id number] [facility] Number: [id number] Repository Carmelina Effective Date: [place], [place] [address]Zhh: () 03/18/2018 BRADLEY Romo Primary BRADLEY [id number] [place] Insurance:CARESOURCEP REEVESDOB: [facility] Number: [id number] Hospital [address]Sce: [phone]) [id number] Repository [phone] () Date:2018-03-18[address]ATTN: [place] [address]WB: 03/18/2018 Secondary NOT GIVENUNK N[place]n Insurance:SELF PAY [facility] Number: Effective Repository Date:2018-03-18 03/13/2018 BRADLEY Romo Primary BRADLEY [place]oster [id number] [place] Insurance:CARESOURCEP REEVESDOB: [place] Number: [id number] Hospital [address]Vlc: [phone]) [id number] Repository [phone] () Date:2018-03-06[address]ATTN: [place] [address]GA: 03/13/2018 Secondary NOT GIVENUNK [place] Insurance:SELF PAY [facility] Number: Effective Repository Date:2018-03-13 03/13/2018 BRADLEY Romo Primary BRADLEY [place]oster [id number] [place] Insurance:CARESOURCEP REEVESDOB: [facility] Number: [id number] Hospital [address]Fer: [phone]) [id number] Repository [phone] (HP) Date:2018-03-13[address]ATTN: [place] [address]KI: 03/13/2018 Secondary NOT GIVENUNK [place] Insurance:SELF PAY [facility] Number: Effective Repository Date:2018-03-13 03/11/2018 BRADLEY Romo Primary BRADLEY Adrian [id number] [place] Insurance:CARESOURCEP REEVESDOB: [facility] Number: [id number] Hospital [address]Ezm: [phone]) [id number] Repository [phone] (HP) Date:2018-02-09[address]ATTN: [place] [address]EA: 03/11/2018 Secondary NOT GIVENUNK [place] Insurance:SELF PAY [facility] Number: Effective Repository Date:2018-03-09 03/06/2018 BRADLEY Romo Primary BRADLEY [place]oster [id number] [place] Insurance:CARESOURCEP [facility] Number: [id number] Hospital [address]Rfm: [phone]) [id number] Repository [phone] (HP) Date:2018-03-06[address]ATTN: [place] [address]FY: 03/06/2018 Secondary NOT GIVENUNK N[place]n Insurance:SELF PAY [facility] Number: Effective Repository Date:2018-03-06 03/06/2018 BRADLEY Romo Primary BRADLEY [place]oster [id number] [place] Insurance:CARESOURCEP REEVESDOB: [place] Number: [id number] Hospital [address]Lrr: [phone]) [id number] Repository [phone] () Date:2018-03-06[address]ATTN: [place] [address]MZ: 03/06/2018 Secondary NOT GIVENUNK [place] Insurance:SELF PAY [facility] Number: Effective Repository Date:2018-03-06 03/06/2018 Bradley J Primary Bradley Romo [facility] ReevesDOB: Insurance:CareSourceP ReevesDOB: [place] Number: [id number] Repository Carm[place]ina [facility] [address]Thc: (HP) 03/06/2018 Bradley Romo Primary Bradley Romo [facility] ReevesDOB: Insurance:CareSourceP ReevesDOB: [place] Number: [id number] Repository Carmelina Effective Date[facility] [address]Ptd: (HP) 03/05/2018 Bradley Romo Primary Bradley Romo [facility] ReevesDOB: Insurance:CareSourceP ReevesDOB: [place] Number: [id number] Repository [place]ina Effective Date[facility] [place] [address]Vga: (HP) 03/05/2018 Bradley Romo Primary Bradley Romo [facility] ReevesDOB: Insurance:CareSourceP ReevesDOB: System [place] Number: [id number] Repository [place]ina Effective Date: [place] [address]Mwd: (HP) 03/02/2018 Bradley Romo Primary Bradley Romo [facility] ReevesDOB: Insurance:CareSourceP ReevesDOB: [place] Number: [id number] Repository [place]ina Effective Date: [place] [address]Fkv: (HP) 02/22/2018 Bradley Romo Primary Bradley Romo [facility] ReevesDOB: Insurance:CareSourceP ReevesDOB: [place] Number: [id number] Repository [place] Effective Date: [place] [address]Cxp: (HP) 02/21/2018 BRADLEY Romo Primary BRADLEY [place] [id number] [place] Insurance:CARESOURCEP REEVESDOB: [place] Number: [id number] Hospital [address]Bjn: [phone]) [id number] Repository [phone] (HP) Date:2018-02-21 [address]N: [place] [address]FW: 02/21/2018 Secondary NOT GIVENUNK Nguy[place]n Insurance:SELF PAY [facility] Number: Effective Repository Date:2018-02-21 02/20/2018 Bradley Romo Primary Bradley Romo [facility] ReevesDOB: Insurance:CareSourceP ReevesDOB: [place] Number: [id number] Repository [place] Effective Date: [place], [place] [address]Kxx: (HP) 02/17/2018 Bradley Romo Primary Bradley Romo [facility] ReevesDOB: Insurance:CareSourceP ReevesDOB: [place] Number: [id number] Repository [place]ina Effective Date: [place], [place] [address]Qhq: () 02/16/2018 BRADLEY Romo Primary BRADLEY [id number] [place] Insurance:CARESOURCEP [facility]: [id number] Hospital [address]Sal: [phone]) [id number] Repository [phone] (HP) Date:2018-02-16[address]ATTN: [place] [address]IY: 02/16/2018 Secondary NOT GIVENUNK Nguyễn Insurance:SELF PAY [facility] Number: Effective Repository Date:2018-02-16 02/09/2018 BRADLEY Romo Primary BRADLEY Adrian [id number] [place] Insurance:CARESOURCEP REEVESDOB: [facility] Number: [id number] Hospital [address]Dzy: ([phone]) [id number] Repository [phone] (HP) Date:2017-11-06[address]ATTN: [place] [address]CA: 02/09/2018 Secondary NOT GIVENUNK [place] Insurance:SELF PAY [facility] Number: Effective Repository Date:2018-02-09 02/03/2018 Bradley Romo Primary Bradley Romo [facility] ReevesDOB: Insurance:CareSourceP ReevesDOB: System [id number] [facility] Number: [id number] Repository [place]ina Effective Date: [place], [place] [address]Cjf: (HP) 01/30/2018 BRADLEY Romo Primary BRADLEY [id number] [place] Insurance:CARESOURCEP REEVESDOB: [facility] Number: [id number] Hospital [address]Vpc: [phone]) [id number] Repository [phone] (HP) Date:2018-01-28[address]ATTN: [place] [address]OX: 01/30/2018 Secondary NOT GIVENUNK [place] Insurance:SELF PAY [facility] Number: Effective Repository Date:2018-01-30 01/27/2018 Bradley Romo Primary Bradley [facility] ReevesDOB: Insurance:CareSourceP ReevesDOB: [place] Number: [id number] Repository [place] Effective Date: [place], [place] [address]Yww: (HP) 01/26/2018 Bradley Primary [facility] ReevesDOB: Insurance:CareSourceP ReevesDOB: [place] Number: [id number] Repository [place] Effective Date: [place], [place] [address]Wcp: (HP) 01/22/2018 [facility]:CareSourceP ReevesDOB: [place] Number: [id number] Repository [place] Effective Date: [place], [place] [address]Owd: (HP) 01/19/2018 Bradley [facility] ReevesDOB: Insurance:CareSourceP ReevesDOB: [place] Number: [id number] Repository [place] Effective Date: [place], [place] [address]Gfp: (HP) 01/19/2018 [facility]: Insurance:CareSourceP ReevesDOB: [place] Number: [id number] Repository [place] Effective Date: [place], [place] [address]Nlq: (HP) 01/19/2018 [facility] ReevesDOB: Insurance:CareSourceP ReevesDOB: [place] Number: [id number] Repository [place] Effective Date: [place] [address]Jcb: (HP) 01/08/2018 Bradley Romo Primary Bradley Romo [facility] ReevesDOB: Insurance:CareSourceP ReevesDOB: [place] Number: [id number] Repository [place] Effective Date: [address] [place], [place] [address]Qux: (HP) 01/08/2018 Bradley Romo Primary Bradley Romo [facility] ReevesDOB: Insurance:CareSourceP ReevesDOB: [place] Number: [id number] Repository [place] Effective Date: [place], [place] [address]Mew: (HP) 12/29/2017 Bradley Romo Primary Bradley Romo [facility] ReevesDOB: Insurance:CareSourceP ReevesDOB: [place] Number: [id number] Repository [place] Effective Date: [place], [place] [address]Fhw: (HP) 12/26/2017 Bradley Romo Primary Bradley Romo [facility] ReevesDOB: Insurance:Self ReevesDOB: System PayPolicy Number: [id number] Repository [place] Effective Date: [place], [place] [address]Apq: (HP) 12/12/2017 BRADLEY Romo Primary BRADLEY [id number] [place] Insurance:CARESOURCEP REEVESDOB: [place] Number: [id number] Hospital [address]Nqw: [phone]) [id number] Repository [phone] (HP) Date:2017-12-05 [address]N: [place] [address]OH: 12/12/2017 Secondary NOT GIVENUNK Nguyễn Insurance:SELF PAY [facility] Number: Effective Repository Date:2017-12-05 12/12/2017 BRADLEY Romo Primary BRADLEY [id number] [place] Insurance:CARESOURCEP REEVESDOB: [place] Number: [id number] Hospital [address]Wtw: [phone]) [id number] Repository [phone] () Date:2017-12-05[address]ATTN: [place] [address]TT: 12/12/2017 Secondary NOT GIVENUNK [place] Insurance:SELF PAY [facility] Number: Effective Repository Date:2017-12-12 12/05/2017 BRADLEY Romo Primary BRADLEY [facility] [id number] [place] Insurance:CARESOURCEP REEVESDOB: [place] Number: [id number] Hospital [address]Ioo: [phone]) [id number] Repository [phone] () Date:2017-08-07[address]ATTN: [place] [address]EW: 12/05/2017 Secondary NOT GIVENUNK [place] Insurance:SELF PAY [facility] Number: Effective Repository Date:2017-12-05 11/27/2017 Bradley Romo Primary Bradley Romo [facility] ReevesDOB: Insurance:CareSourceP ReevesDOB: System [id number] icy Number: [id number] Repository [place] Effective Date: [place], [place] [address]Tfz: () 11/25/2017 BRADLEY Romo Primary BRADLEY [place]oster [id number] [place] Insurance:CARESOURCEP REEVESDOB: [place] Number: [id number] Hospital [address]Qmt: ([phone]) [id number] Repository [phone] () Date:2017-11-12[address]ATTN: [place] [address]BF: 11/25/2017 Secondary NOT GIVENUNK [place] Insurance:SELF PAY [facility] Number: Effective Repository Date:2017-11-12 11/25/2017 BRADLEY Romo Primary BRADLEY Adrian [id number] [place] Insurance:CARESOURCEP REEVESDOB: [place] Number: [id number] Hospital [address]Bht: ([phone]) [id number] Repository [phone] () Date:2017-11-12[address]ATTN: [place] [address]WB: 11/25/2017 Secondary NOT GIVENUNK [place] Insurance:SELF PAY [facility] Number: Effective Repository Date:2017-11-25 11/10/2017 Bradley Romo Primary Bradley [facility] ReevesDOB: Insurance:CareSourceP ReevesDOB: System [id number] [facility] Number: [id number] Repository [place]ina Effective Date: [place], [place] [address]Aud: () 11/07/2017 BRADLEY Romo Primary BRADLEY Romo [place] [id number] [place] Insurance:CARESOURCEP REEVESDOB: [facility] Number: [id number] Hospital [address]Mfv: ([phone]) [id number] Repository [phone] () Date:2017-11-06 [address]N: [place] [address]VG: 11/07/2017 Secondary NOT GIVENUNK Nguyễn Insurance:SELF PAY [facility] Number: Effective Repository Date:2017-11-07 11/06/2017 BRADLEY Romo Primary BRADLEY Nguyễn [id number] [place] Insurance:CARESOURCEP [facility] Number: [id number] Hospital [address]Nag: [phone]) [id number] Repository [phone] () Date:2017-09-25 [address]ATTN: [place] [address]KW: 11/06/2017 Secondary NOT GIVENUNK [place] Insurance:SELF PAY [facility] Number: Effective Repository Date:2017-11-06 10/31/2017 BRADLEY Romo Primary BRADLEY [id number] [place] Insurance:CARESOURCEP REEVESDOB: [place] Number: [id number] Hospital [address]Fzr: [phone]) [id number] Repository [phone] () Date:2017-10-31[address]ATTN: [place] [address]OH: 10/31/2017 Secondary NOT GIVENUNK [place] Insurance:SELF PAY [facility] Number: Effective Repository Date:2017-10-31 10/29/2017 BRADLEY Romo Primary BRADLEY Adrian [id number] [place] Insurance:CARESOURCEP REEVESDOB: [facility] Number: [id number] Hospital [address]Zvs: ([phone]) [id number] Repository [phone] (HP) Date:2017-07-21[address]ATTN: [place] [address]BL: 10/29/2017 Secondary NOT GIVENUNK Nguyễn Insurance:SELF PAY [facility] Number: Effective Repository Date:2017-07-21 10/20/2017 Bradley Romo Primary Bradley Romo [facility] ReevesDOB: Insurance:CareSourceP ReevesDOB: System desirey Number: [id number] [facility] Effective Date: [place], [place] [address]Arg: (HP) 10/01/2017 Bradley Romo Primary Bradley Romo [facility] ReevesDOB: Insurance:Self ReevesDOB: System PayPolic Number: [id number] [facility] Carmelina Effective Date: [place], [place] [address]Fhm: (HP) 10/01/2017 Bradley Romo Primary Bradley Romo [facility] ReevesDOB: Insurance:CareSourceP ReevesDOB: [place] Number: [id number] Repository [place] Effective Date: [place], [place] [address]Hdn: (HP) 09/25/2017 BRADLEY Romo Primary BRADLEY [id number] [place] Insurance:CARESOURCEP [place]ESD[facility] [facility] [place] Number: [id number] [facility] [address]Kyl: ([phone]) [id number] Repository [phone] (HP) Date:2017-09-08 [address]ATTN: [place] [address]OR: 09/25/2017 Secondary NOT GIVENUNK Nguyễn Insurance:SELF PAY [facility] Number: Effective Repository Date:2017-09-25 09/24/2017 Bradley Romo Primary Bradley Romo [facility] ReevesDOB: Insurance:CareSourceP ReevesDOB: [place] Number: [id number] Repository [place] Effective Date: [place] [address]Pxr: (HP) 09/04/2017 Bradley Romo Primary Bradley Romo [facility] ReevesDOB: Insurance:CareSourceP ReevesDOB: [place] Number: [id number] Repository [place] Effective Date: [place], [place] [address]Php: (HP) 08/25/2017 Bradley Romo Primary Bradley Romo [facility] ReevesDOB: Insurance:CareSourceP ReevesDOB: [place] Number: [id number] Repository [place] Effective Date: [place], [place] [address]Esa: (HP) 08/21/2017 Bradley Romo Primary Bradley Romo [facility] ReevesDOB: Insurance:CareSourceP ReevesDOB: [place] Number: [id number] Repository [place] Effective Date: [place], [place] [address]Rrd: (HP) 08/21/2017 Bradley Romo Primary Bradley J [facility] ReevesDOB: Insurance:CareSourceP ReevesDOB: System [place] Number: [id number] Repository [place] Effective Date: [place], [place] [address]Nar: (HP) 08/12/2017 Bradley J Primary Bradley J [facility] ReevesDOB: Insurance:CareSourceP ReevesDOB: System [place] Number: [id number] Repository [place] Effective Date: [place], [place] [address]Jrt: (HP) 08/12/2017 Bradley Romo Primary Bradley Romo [facility] ReevesDOB: Insurance:CareSourceP ReevesDOB: System olicy Number: [id number] Repository [place] Effective Date: [place], [place] [address]Oln: (HP) 08/12/2017 Bradley Romo Primary Bradley J [facility] ReevesDOB: Insurance:CareSourceP ReevesDOB: System [place]licy Number: [id number] Repository [place] Effective Date: [place], [place] [address]Njk: (HP) 08/07/2017 BRADLEY Romo Primary BRADLEY Adrian [id number] CARMELINA Insurance:CARESOURCEP [place] [facility] [place]: [id number] Hospital [address]Gkk: [phone] [id number] Repository [phone] (HP) Date:2017-02-24 [address]ATTN: [place] [address]PO: 08/07/2017 Secondary NOT GIVENUNK [place] Insurance:SELF PAY [facility] Number: Effective Repository Date:2017-08-07 08/04/2017 BRADLEY Romo Primary BRADLEY [place] [id number] [place] Insurance:CARESOURCEP REEVESDOB: [place] Number: [id number] [facility] [address]Eaq: [phone] [id number] Repository [phone] () Date:2017-08-04 [address]: [place] [address]KG: 08/04/2017 Secondary NOT GIVENUNK [place] Insurance:SELF PAY [facility] Number: Effective Repository Date:2017-08-04 07/31/2017 Bradley Romo Primary Bradley Romo [facility] Health ReevesDOB: Insurance:CareSourceP ReevesDOB: [place] Number: [id number] Repository [place]ina Effective Date: [place], [place] [address]Xwr: () 07/29/2017 Bradley Romo Primary Bradley Romo [facility] Health ReevesDOB: Insurance:CareSourceP ReevesDOB: System [place] Number: [id number] Repository [place] Effective Date: [place], [place] [address]Jvx: (HP) 07/21/2017 BRADLEY Romo Primary BRADLEY Adrian [id number] [place] Insurance:CARESOURCEP REEVESDOB: [place] Number: [id number] [facility] [address]Fyf: [phone]) [id number] Repository [phone] () Date:2017-07-10 [address]ATTN: [place] [address]AS: 07/21/2017 Secondary NOT GIVENUNK [place] Insurance:SELF PAY [facility] Number: Effective Repository Date:2017-07-21 07/03/2017 Bradley Romo Primary Bradley Romo [facility] Health ReevesDOB: Insurance:Self ReevesDOB: System PayPolicy Number: [id number] Repository [place] Effective Date: [place], [place] [address]Sur: (HP) 07/03/2017 [facility] ReevesDOB: Insurance:CareSourceP ReevesDOB: [place] Number: [id number] Repository [place] Effective Date: [place], [place] [address]Llg: (HP) 07/02/2017 [facility]daley [facility] ReevesDOB: Insurance:CareSourceP ReevesDOB: [place] Number: [id number] Repository [place] Effective Date: [place], [place] [address]Jke: (HP) 06/11/2017 [facility] Insurance:CareSourceP ReevesDOB: [place] Number: [id number] Repository [place] Effective Date: [place], [place] [address]Unr: (HP) 04/23/2017 [facility] ReevesD[facility]: Insurance:CareSourceP ReevesDOB: System [place] Number: [id number] Repository [place] Effective Date: [place], [place] [address]Uhp: (HP) 04/22/2017 BRADLEY J Primary BRADLEY [facility] [id number] CARM[place]INA Insurance:CARESOURCEP REEVESDOB: [place] Number: [id number] [facility] [address]Owa: [phone] [id number] Repository [phone] (HP) Date:2017-04-14P [address]ATTN: [place] [address]EW: 04/22/2017 Secondary NOT GIVENUNK [place] Insurance:SELF PAY [facility] Number: Effective Repository Date:2017-04-14
== END ==
PROVIDERS: Referring Provider Nurse Practitioner Family; Visit Provider Nurse Practitioner Family
DX: R06.09 Other forms of dyspnea (principal); R06.02 Shortness of breath; I25.10 Atherosclerotic heart disease of native coronary artery without angina pectoris; I10 Essential (primary) hypertension; Z95.5 Presence of coronary angioplasty implant and graft
CPT/HCPCS: 93306; Q9957; A4216; C8929

== ENCOUNTER → 2018-05-14 12:13 | Outpatient (CLI) | payer MEDICAID, SELFPAY ==
[2018-05-14 11:12] VITALS: BMI 43.4
[2018-05-14 12:50] LABS: Absolute Lymphocyte Count 1.89 X10^3/ul (0.83-4.51); Absolute Neutrophil Count 5.1 X10^3/uL (2.0-7.7); Basophil# 0.03 X10^3/uL; Basophil% 0.4 % (0-1); Eosinophil# 0.22 X10^3/uL; Eosinophils% 2.9 % (0-5); Hematocrit 40.4 % (40-54); Hemoglobin 13.2 g/dl (13.0-16.5); Lymphocyte # 1.89 X10^3/ul (4.0); Lymphocyte % 24.8 % (19-41); Mean Corp Hgb Conc 32.7 g/gl (32-36); Mean Corpuscular Hgb 29.4 pg (27.0-32.0); Mean Platelet Vol. 10.8 fl (6.2-12.0); Monocyte# 0.43 X10^3/uL; Monocyte% 5.6 % (0-10); Neutrophil # 5.05 X10^3/uL (2.7-7.7); Neutrophil % 66.2 % (47-70); Platelet Count 210 K/mm3 (150-450); RBC Distribution Width CV 14.1 % (11.6-14.6); RBC Distribution Width SD 45.6 fl (35.1-43.9); Red Blood Count 4.49 M/mm3 (4.6-6.2); White Blood Count 7.6 K/mm3 (4.4-11.0)
[2018-05-14 12:52] LABS: POSITIVE COUNT NO; POSITIVE DIFFERENTIAL NO; POSITIVE MORPHOLOGY NO
== END ==
PROVIDERS: PCP Nurse Practitioner Family; Referring Provider Nurse Practitioner Family; Visit Provider Nurse Practitioner Family
DX: I25.10 Atherosclerotic heart disease of native coronary artery without angina pectoris (principal); R42 Dizziness and giddiness; R58 Hemorrhage, not elsewhere classified
CPT/HCPCS: 36415; 85025

== ENCOUNTER 2018-07-30 14:00 | Outpatient (RCR) | payer MEDICAID, SELFPAY ==
[2018-06-29 11:32] VITALS: BMI 41.6
--- NOTE | 2018-07-10 12:48 | HP.PTEVAL_ITS ---
Patient's Visit Information BRADLEY GREENFIELD is a 57 year old M referred to Physical Therapy by Silvio Batista MD with a diagnosis of BIATRIC SURGERY,OBESITY,DM-2,CAD. Date of Evaluation: 07/10/18 Physical Therapist: Milton Rios PT, Cert MDT, OCS - Visit Plan Frequency: 2x /Week Duration: 4 Weeks Plan: CARDIAC PRECAUTIONS,BIATRIC SURGERY LAST YEAR. INTIATE ENDURANCE PROGRAM,STRENGTHENING BLE,FUNCTIONAL STRENGTHING - Subjective Findings: This 57 y/o male presents to physical therapy with with generalized weakness for extended hospital stay. Patient intially underwent s/p biatric surgery 2017 ,then had gallblader surgery Feb 2018 with lengthy hospital stay 3 weeks . Patient d/c home with home PT for about 1month. Patient lost about 100 # from biatric surgery.Patient has mutiple comorbities to include GA with stents ,angioplasty,DM,hernia surgery.Patient denies parathesia/tingling .Patient able to perform ADLS' with min limiations. Patie nt no SOB. Patient weakness with general activity and affects QOL. patient condition affects function. SOCAIL: . VOCATION: unemployed - Objective POSTURE: mild foward posture. NEURO: intact. BALANCE: good. ENDURANCE: fair +. MMT: quads/hams 4-/5,hip flexion/abd 3+/5 ankle 4-/5. FLEXABLITY : hams min tight. STAIRS: one step a time - Balance Scores Functional Gait Assessment Score: 24 % Disability: 20.0000 CATSIB Score (Max score 120 seconds): 120 - Goals Goal 1:: Independant with HEP. Goal Time Frame: 4-6 Weeks Goal 2:: Improve BLE strength by 4/5 to improve function Goal Time Frame: 4-6 Weeks Goal 3:: Patient to improve function endurance for activity to good. Goal Time Frame: 4-6 Weeks Goal 4:: Patient to improve ability to perform ADL's and housework taskss with min limiations Goal Time Frame: 4-6 Weeks Goal 5:: Patient to improve LFES SCORE BY 10 Points or greater to improve function. Goal Time Frame: 4-6 Weeks - Rehabilitation Potential Physical Therapy Diagnosis: This patient has multiple comorbities to influence condition with weakness and decrease endurance thus benifit from skilled PT Rehabilitation Potential: Good - Anticipated Interventions Patient/Client Instruction: Educate patient on: Condition, Plan of Care For the Purpose of:: To decrease pain, To increase ROM, To improve muscle performance and motor function, To improve ability to perform ADL's, To increase tolerance to activity/condition/position, To improve performance and independence with ADL's, To improve ability of physical actions for ho me/community/work/leisure, To improve endurance, To improve balance, To improve health and function, To improve ability to perform tasks related to life management Therapeutic Exercise to Include: Strength training, Endurance training, Balance training, Postural training, Flexibilty training Comment: BLE For the Purpose of:: To improve muscle performance and motor function, To improve ability to perform ADL's, To increase tolerance to activity/condition/position, To improve performance and independence with ADL's, To improve ability of physical actions for home/community/work/leisure, To improve endurance, To improve balance, To improve health and function, To improve ability to perform tasks related to life management Thank you for the opportunity to evaluate your patient. For Medicare and Medicare HMO plans, please review the plan of care and approve it. It will need to be FAXED BACK to us at [phone] for Medicare purposes. For Medicare only, by signing this I certify the plan of care. Please let me know if there are questions or concerns regarding this plan of care. Physician Signature: Date:
--- NOTE | 2018-08-24 11:13 | HP.PTDCNRP_ITS ---
HP - Discharge Summary (1) - Patient Information BRADLEY GREENFIELD was seen in my office for initial evaluation on 07/10/18. The following Plan of Care was established for this patient: Initial Frequency: 2x /Week Initial Duration: 4 Weeks - Anticipated Interventions Patient/Client Instruction: Educate patient on: Condition, Plan of Care For the Purpose of:: To decrease pain, To increase ROM, To improve muscle perfo rmance and motor function, To improve ability to perform ADL's, To increase tolerance to activity/condition/position, To improve performance and independence with ADL's, To improve ability of physical actions for home/community/work/leisure, To improve endurance, To improve balance, To improve health and function, To improve ability to perform tasks related to life management Therapeutic Exercise to Include: Strength training, Endurance training, Balance training, Postural training, Flexibilty training For the Purpose of:: To improve muscle performance and motor function, To improve ability to perform ADL's, To increase tolerance to activity/condition/position, To improve performance and independence with ADL's, To improve ability of physical actions for home/community/work/leisure, To improve endurance, To improve balance, To improve health and function, To improve ability to perform tasks related to life management This patient was last seen in our office . Pertinent comments regarding their Physical therapy will appear below: Patient seen for PT forr bariatric surgery focusing on strength,endurance ,functional strengthening thus is d/c At this point I will be discontinuing this patient from physical therapy. I would be happy to see this patient again in the future if found appropriate by t he physician. Thank you! Milton Rios, PT, Cert MDT, OCS
== END 2018-07-30 19:00 | disposition home or self-care (01) ==
LOC: PT 14:00
PROVIDERS: Family Provider Nurse Practitioner Family; Referring Provider Internal Medicine Cardiovascular Disease; Visit Provider Internal Medicine Cardiovascular Disease
DX: I25.10 Atherosclerotic heart disease of native coronary artery without angina pectoris (principal); I10 Essential (primary) hypertension; E78.5 Hyperlipidemia, unspecified; E11.9 Type 2 diabetes mellitus without complications; E66.9 Obesity, unspecified; Z98.84 Bariatric surgery status; Z95.5 Presence of coronary angioplasty implant and graft
CPT/HCPCS: 97110; 97162

== ENCOUNTER 2018-08-02 21:08 | Emergency (ER) | payer MEDICAID, SELFPAY ==
[2018-06-29 11:32] VITALS: BMI 41.6
[2018-08-02 21:09] VITALS: BP 162/70; PULSE 73; RESP 22; TEMP 37.2; O2SAT 92; BMI 38.8
--- NOTE | 2018-08-02 21:23 | EKG12_ITS ---
Test Reason : Blood Pressure : / mmHG Vent. Rate : 072 BPM Atrial Rate : 072 BPM P-R Int : 188 ms QRS Dur : 100 ms QT Int : 428 ms P-R-T Axes : 000 094 068 degrees QTc Int : 468 ms Normal sinus rhythm Rightward axis Borderline ECG Confirmed by DERIAN SAVAGE MD ([id number]), editor publications KELLY MATTHEW ([id number]) on 08/03/2018 3:51:46 PM Referred By: CARLENE Confirmed By:DERIAN SAVAGE MD
--- NOTE | 2018-08-02 21:23 | CT_ITS ---
We are attempting to reach an attending provider to discuss findings. An addendum with communication details will be sent when the communication is complete. STUDY: CT BRAIN WITHOUT CONTRAST REASON FOR EXAM: Male, 57 years old. Trauma. RADIATION DOSAGE (If Supplied By Facility): CTDIvol = ( 44.99 ) mGy, DLP = ( 829.85 ) mGycm TECHNIQUE: Transaxial CT imaging of the brain was performed without administration of intravenous contrast material. Individualized dose optimization techniques were used for this CT. COMPARISON: No relevant priors. FINDINGS: Exam is limited by improper positioning. Scalp hematoma seen over the posterior skull. Possible nondisplaced serpiginous fracture through the left occipital bone. Mild subdural hematoma seen along the posterior falx cerebrum measuring as much as 5 mm thickness and without mass effect. It can be seen on axial images 27-36. No other acute intracranial abnormalities. No evidence for infarct, contusion, mass or mass effect. No midline shift. Posterior fossa structures are grossly normal. Orbits and sinuses grossly normal. CT/Brain/Head without Contrast IMPRESSION: Limited by suboptimal positioning. Mild subdural hematoma along the interhemispheric fissure. Possible nondisplaced nondepressed fracture of the left side of the occipital bone. Electronically Signed: Darwin Roberts MD at 22:03 EDT , Service support ,
--- NOTE | 2018-08-02 21:24 | CT_ITS ---
STUDY: CT CERVICAL SPINE WITHOUT CONTRAST REASON FOR EXAM: Male, 57 years old. Head trauma. RADIATION DOSAGE (If Supplied By Facility): CTDIvol = ( 28.74 ) mGy, DLP = ( 1345.30 ) mGycm TECHNIQUE: High resolution transaxial imaging was performed without contrast material. Sagittal and coronal images were reconstructed. Individualized dose optimization techniques were used for this CT. COMPARISON: None FINDINGS: Normal craniovertebral junction. Normal anterior atlantoaxial articulation. Normal odontoid process. There is straightening of the normal cervical lordosis. Normal vertebral bodies and posterior osseous elements. C2-3: Normal endplates. Normal disc height and morphology. Normal central canal and intervertebral neuroforamina. C3-4: Normal endplates. Normal disc height and morphology. Normal central canal and intervertebral neuroforamina. C4-5: Normal endplates. Normal disc height and morphology. Normal central canal and intervertebral neuroforamina. C5-6: Normal endplates. Normal disc height and morphology. Normal central canal and intervertebral neuroforamina. C6-7: Normal endplates. Normal disc height and morphology. Normal central canal and intervertebral neuroforamina. C7-T1: Normal endplates. Normal disc height and morphology. Normal central canal and intervertebral neuroforamina. Normal visualized soft tissue structures. CT/Spine Cervical without Contras IMPRESSION: Normal unenhanced CT examination of the cervical spine. Electronically Signed: Darwin Roberts MD at 22:05 EDT , Service support ,
[2018-08-02 21:41] VITALS: BP 158/78; PULSE 73; RESP 20; O2SAT 92
[2018-08-02 21:47] LABS: Absolute Neutrophil Count 5.5 X10^3/uL (2.0-7.7); Basophil# 0.03 X10^3/uL; Basophil% 0.3 % (0-1); Eosinophil# 0.19 X10^3/uL; Eosinophils% 2.1 % (0-5); Hemoglobin 13.8 g/dl (13.0-16.5); Lymphocyte % 29.5 % (19-41); Mean Corp Hgb Conc 34.5 g/gl (32-36); Mean Corpuscular Hgb 29.6 pg (27.0-32.0); Mean Corpuscular Volume 85.7 fL (80-94); Mean Platelet Vol. 10.5 fl (6.2-12.0); Monocyte# 0.67 X10^3/uL; Monocyte% 7.3 % (0-10); Neutrophil # 5.53 X10^3/uL (2.7-7.7); Neutrophil % 60.5 % (47-70); POSITIVE COUNT NO; POSITIVE DIFFERENTIAL NO; POSITIVE MORPHOLOGY NO; Platelet Count 207 K/mm3 (150-450); RBC Distribution Width CV 13.9 % (11.6-14.6); Red Blood Count 4.67 M/mm3 (4.6-6.2); White Blood Count 9.2 K/mm3 (4.4-11.0)
[2018-08-02] MEDS: Diphth,Pertuss(Acell),Tet Vac 0.5 ML Vial IM (21:47)
[2018-08-02 21:55] LABS: Anion Gap 6 (5-15); BUN 20 mg/dL (7-18); BUN/Creat Ratio 17.5 RATIO (10-20); Chloride 105 mmol/L (98-107); Creatinine, Serum 1.14 mg/dL (0.70-1.30); EST Glomerular Filtration Rate 70 mL/min (>60); Est Glom Filt Rate - Afr Amer 85 mL/min (>60); Estimated Creatinine Clearance 78.47 ml/min; Glucose 178 mg/dL (74-106); Potassium 3.8 mmol/L (3.5-5.1); Sodium Level 140 mmol/L (136-145)
[2018-08-02 22:04] VITALS: O2SAT 88
--- NOTE | 2018-08-02 22:15 | ED.VISSUMM ---
- ER Visit Summary Date of Service: 08/02/18 Chief Complaint: Fell backwards on a chair causing a scalp laceration. History of Present Illness: The patient is a 57 M past medical history of diabetes, hypertension, coronary disease with cardiac stent. Patient had prior gastric bypass. Tonight was sitting on a chair is in the other room. And fell and came in and was blood all over the kitchen floor. She states the floor is hard linoleum. He is on no blood thinners besides aspirin. He was brought in by squad with a c-collar in place. Physical Examination: 162/70. Pulse ox 92% on room air no hypoxia. HEENT exam pupils round react to light 2 mm bilateral pupils. Patient's eyes are closed but he will open them to command. He is scalp laceration posterior scalp but I am not examined at this time. C-collar in place. Trachea midline. Lungs clear to auscultation bilaterally. Chest wall nontender. Heart regular rhythm rate about 70 no murmur. Abdomen morbidly obese but soft. Nontender normal bowel sounds no peritoneal signs. Pelvic girdle intact. Extremities moving all 4. No deformity. Neurologically his eyes are closed but opens to command he answers questions. He has no focal motor deficit. Test Results: Brain shows a nondisplaced posterior occipital skull fracture that is not depressed. Also a subdural hematoma that is along the interhemispheric fissure. CT C-spine shows no fracture both read by the radiologist reviewed by me. EKG sinus rhythm rate of 72 no acute signs of PR or ischemia or dysrhythmia. CBC White count of 9. Hemoglobin 13. Chemistries normal creatinine 1.1. Troponin normal. Emergency Department Course and Treatment: Due to the patient's head injury with intracranial bleed he will need to go to a trauma center. I have already spoken ER physicians at [facility] and they have accepted the patient. Initially I thought it may be quicker to go by ground squad but the closest ground squad available was more than 3 hours away at this time. We are checking with [facility] on transfer. Treatment Plan: [] Disposition: Transfer to trauma center. Impression: Acute fall with head injury Posterior occipital skull fracture with subdural intracranial bleed History of diabetes, hypertension, CAD with cardiac stent and prior gastric bypass This note was generated with [employer] dictation software. It may contain incorrect words, spelling, and punctuation that were not noted in review of the chart prior to signing ED Disposition - Plan for ED Patient: Referrals: Jung Cabrales,Frieda Valdez [NON-STAFF] -
--- NOTE | 2018-08-02 22:18 | NURSING ---
PER DOCTOR DAVID PATIENT WILL BE TRANSFERED BY GROUND SQUAD
--- NOTE | 2018-08-02 22:23 | ED.DCSUM_ITS ---
- ER Visit Summary Date of Service: 08/02/18 Chief Complaint: Fell backwards on a chair causing a scalp laceration. History of Present Illness: The patient is a 57 M past medical history of diabetes, hypertension, coronary disease with cardiac stent. Patient had prior gastric bypass. Tonight was sitting on a chair is in the other room. And fell and came in and was blood all over the kitchen floor. She states the floor is hard linoleum. He is on no blood thinners besides aspirin. He was brought in by squad with a c-collar in place. Physical Examination: 162/70. Pulse ox 92% on room air no hypoxia. HEENT exam pupils round react to light 2 mm bilateral pupils. Patient's eyes are closed but he will open them to command. He is scalp laceration posterior scalp but I am not examined at this time. C-collar in place. Trachea midline. Lungs clear to auscultation bilaterally. Chest wall nontender. Heart regular rhythm rate about 70 no murmur. Abdomen morbidly obese but soft. Nontender normal bowel sounds no peritoneal signs. Pelvic girdle intact. Extremities moving all 4. No deformity. Neurologically his eyes are closed but opens to command he answers questions. He has no focal motor deficit. Test Results: Brain shows a nondisplaced posterior occipital skull fracture that is not depressed. Also a subdural hematoma that is along the interhemispheric fissure. CT C-spine shows no fracture both read by the radiologist reviewed by me. EKG sinus rhythm rate of 72 no acute signs of MD or ischemia or dysrhythmia. CBC White count of 9. Hemoglobin 13. Chemistries normal creatinine 1.1. Troponin normal. Emergency Department Course and Treatment: Due to the patient's head injury with intracranial bleed he will need to go to a trauma center. I have already spoken ER physicians at [facility] and they have accepted the patient. Initially I thought it may be quicker to go by ground squad but the closest ground squad available was more than 3 hours away at this time. We are checking with [facility] on transfer. Treatment Plan: [] Disposition: Transfer to trauma center. Impression: Acute fall with head injury Posterior occipital skull fracture with subdural intracranial bleed History of diabetes, hypertension, CAD with cardiac stent and prior gastric bypass This note was generated with [employer] dictation software. It may contain incorrect words, spelling, and punctuation that were not noted in review of the chart prior to signing ED Disposition - Plan for ED Patient: Referrals: Jung Cabrales,Frieda Valdez [NON-STAFF] -
[2018-08-02 22:27] LABS: Prothrombin Time (Protime)PT. 13.3 SECONDS (11.7-14.9)
[2018-08-02 23:41] VITALS: BP 150/80; PULSE 72; RESP 18; O2SAT 98
== END 2018-08-02 23:42 | disposition home or self-care (01) ==
PROVIDERS: Emergency Provider Emergency Medicine; Family Provider Nurse Practitioner Family; PCP Nurse Practitioner Family
DX: S02.119A Unspecified fracture of occiput, initial encounter for closed fracture (principal); S06.5X9A Traumatic subdural hemorrhage with loss of consciousness of unspecified duration, initial encounter; W07.XXXA Fall from chair, initial encounter; Y93.9 Activity, unspecified; Y92.020 Kitchen in mobile home as the place of occurrence of the external cause; Y99.9 Unspecified external cause status; I25.10 Atherosclerotic heart disease of native coronary artery without angina pectoris; E11.9 Type 2 diabetes mellitus without complications; I10 Essential (primary) hypertension; Z79.82 Long term (current) use of aspirin; Z79.899 Other long term (current) drug therapy; Z98.84 Bariatric surgery status; Z95.5 Presence of coronary angioplasty implant and graft
CPT/HCPCS: 70450; 72125; 80048; 84484; 85025; 85610; 90715; 93005; 99285; A4216

== ENCOUNTER 2018-08-10 12:00 | Inpatient (IN) | payer MEDICAID, SELFPAY ==
[2018-08-10 12:33] VITALS: BP 125/62; PULSE 57; RESP 20; TEMP 36.8; O2SAT 95; BMI 42.0
[2018-08-10] MEDS: oxyCODONE 5 MG Tablet PO ×2 (13:26→19:57)
--- NOTE | 2018-08-10 13:46 | PCM.PN.HOSP ---
Subjective: 7-year-old male transfer from [facility] for acute inpatient rehab after sustaining a fall from a chair while changing a light bulb. He ended up hitting his head and having a subdural hematoma. He did not require any aggressive intervention however he did suffer from a concussion and have some lower extremity weakness and ambulatory difficulties and was transferred to rehab. Of note it from his home situation, his has MS and it is difficult for her to assist him at home. Vitals/I&O's: Vital Signs Temp Pulse Resp BP Pulse Ox 98.3 F 57 L 20 H 125/62 H 95 08/10/18 12:33 08/10/18 12:33 08/10/18 12:33 08/10/18 12:33 08/10/18 12:33 Oxygen Delivery Method Room Air Weight: 268 lb Body Mass Index (BMI) 42.0 Intake and Output for Last 24 Hours 08/08/18 08/09/18 08/10/18 23:59 23:59 23:59 Intake Total 360 / 360 Balance 360 / 360 General: Alert, Oriented x3, Cooperative, No apparent distress HEENT: Atraumatic, PERRLA, EOMI, Normocephalic Oral: Moist Mucosa Neck: Supple, No JVD Lungs: Clear to auscultation, Normal air movement, No rhonchi, No wheeze, No rales Cardiovascular: Regular rate, Regular Rhythm, Normal S1, Normal S2, No murmurs Abdomen: Soft, Non Tender, Non-Distended, No Hepato-splenomegaly Extremities: No edema, Capillary Refill Less than 3 Seconds Skin: No rashes, No breakdown, Ulcer/ Wound - Scalp laceration with sutures in place. Does not appear infected Neurological: Neuro grossly intact, Sensory exam intact to light touch and pain Psych/Mental Status: Normal Affect, Appropriate Current Medications Acetaminophen (Tylenol) 1,000 mg PO Q8H PRN PRN Reason: pain Atorvastatin Calcium (Lipitor) 80 mg PO QHS [facility] Bisacodyl (Dulcolax) 10 mg RECTAL .PRN X 1 PRN PRN Reason: Constipation Calcium/Vitamin D (Os-Shane 500mg + D) 1 tablet [facility] Citalopram Hydrobromide (Celexa) 20 mg PO DAILY [facility] Clotrimazole (Lotrimin) 1 applicatio TOPICAL BID [facility]; Protocol Cyanocobalamin (Vitamin B12) 1,000 mcg PO DAILYCM [facility] Enoxaparin Sodium (Lovenox) 40 mg SC DAILY@0600 [facility] Furosemide (Lasix) 40 mg PO BIDLX [facility] Hydroxyzine Pamoate (Vistaril Pamoate Capsule) 25 mg PO DAILY PRN PRN Reason: ANXIETY Levothyroxine Sodium (Synthroid) 100 mcg PO DAILY@0600 [facility] Linagliptin (Tradjenta) 5 mg PO DAILY [facility] Losartan Potassium (Cozaar) 50 mg PO DAILY [facility] Magnesium Hydroxide (Milk Of Magnesia) 30 ml PO .PRN X 1 PRN PRN Reason: Constipation Meclizine HCl (Antivert) 25 mg PO TID PRN PRN PRN Reason: DIZZINESS Melatonin (Melatonin) 6 mg PO QHS [facility] Menthol (Bengay Vanishing Scent) 1 applic TOPICAL TID PRN PRN Reason: PAIN Metoprolol Tartrate (Lopressor (Beta Freedom)) 25 mg PO BID [facility] Multivitamins (Multivitamin) 1 tablet PO DAILY@0800 [facility] Oxycodone HCl (Oxyir) 5 mg PO Q6H PRN PRN PRN Reason: PAIN Last Admin: 08/10/18 13:26 Dose: 5 mg Pantoprazole Sodium (Protonix) 20 mg PO DAILY [facility] Potassium Chloride (K-Dur) 20 meq [facility]ILY[facility] Senna/Docusate Sodium (Senokot-S, Ada-Colace) 2 tablet PO BID [facility] Medical Necessity - Tobacco Use Smoking Status: Never smoker Assessment/Plan All Active Problems (Last Reviewed 06/29/18 @ 11:33 by Lia Velarde) Dyspnea on exertion (Acute) Constipation (Acute) Preop cardiovascular exam (Acute) 1. Subdural hematoma secondary to fall from a chair -Continue with inpatient rehab hold aspirin -Okay to receive prophylactic Lovenox for DVT prevention -Continue with PT/OT -Continue with oxycodone for pain -Meclizine for dizziness as needed 2. Hypertension/hyperlipidemia/CAD status post stent -Blood pressure so far is been stable -We will continue with his home medications of Crestor, losartan, metoprolol, and Lasix -Per request neurosurgery will hold off on an aspirin for now. His stent was placed in 2008, he will have to be restarted on antiplatelet at some point in the near future. 3. DM2 -Monitor blood sugars with Accu-Cheks, and providing appropriate diet -Continue with his home alogliptin 4. Hypothyroidism -Stable -Continue with Synthroid 5. GERD -Stable -Continue with PPI 6. Depression/anxiety -Stable -Continue with home Celexa DVT: Lovenox Code Visit Inpatient E&M: 18010 Subs Hosp L3
--- NOTE | 2018-08-10 13:52 | PN_ITS ---
Subjective: 7-year-old male transfer from [facility] for acute inpatient rehab after sustaining a fall from a chair while changing a light bulb. He ended up hitting his head and having a subdural hematoma. He did not require any aggressive intervention however he did suffer from a concussion and have some lower extremity weakness and ambulatory difficulties and was transferred to rehab. Of note it from his home situation, his has MS and it is difficult for her to assist him at home. Vitals/I&O's: Vital Signs Temp Pulse Resp BP Pulse Ox 98.3 F 57 L 20 H 125/62 H 95 08/10/18 12:33 08/10/18 12:33 08/10/18 12:33 08/10/18 12:33 08/10/18 12:33 Oxygen Delivery Method Room Air Weight: 268 lb Body Mass Index (BMI) 42.0 Intake and Output for Last 24 Hours 08/08/18 08/09/18 08/10/18 23:59 23:59 23:59 Intake Total 360 / 360 Balance 360 / 360 General: Alert, Oriented x3, Cooperative, No apparent distress HEENT: Atraumatic, PERRLA, EOMI, Normocephalic Oral: Moist Mucosa Neck: Supple, No JVD Lungs: Clear to auscultation, Normal air movement, No rhonchi, No wheeze, No rales Cardiovascular: Regular rate, Regular Rhythm, Normal S1, Normal S2, No murmurs Abdomen: Soft, Non Tender, Non-Distended, No Hepato-splenomegaly Extremities: No edema, Capillary Refill Less than 3 Seconds Skin: No rashes, No breakdown, Ulcer/ Wound - Scalp laceration with sutures in place. Does not appear infected Neurological: Neuro grossly intact, Sensory exam intact to light touch and pain Psych/Mental Status: Normal Affect, Appropriate Current Medications Acetaminophen (Tylenol) 1,000 mg PO Q8H PRN PRN Reason: pain Atorvastatin Calcium (Lipitor) 80 mg PO QHS [facility] Bisacodyl (Dulcolax) 10 mg RECTAL .PRN X 1 PRN PRN Reason: Constipation Calcium/Vitamin D (Os-Shane 500mg + D) [facility] Citalopram Hydrobromide (Celexa) 20 mg PO DAILY [facility] Clotrimazole (Lotrimin) 1 applicatio TOPICAL BID [facility]; Protocol Cyanocobalamin (Vitamin B12) 1,000 mcg PO DAILYCM [facility] Enoxaparin Sodium (Lovenox) 40 mg SC DAILY@0600 [facility] Furosemide (Lasix) 40 mg PO BIDLX [facility] Hydroxyzine Pamoate (Vistaril Pamoate Capsule) 25 mg PO DAILY PRN PRN Reason: ANXIETY Levothyroxine Sodium (Synthroid) 100 mcg PO DAILY@0600 [facility] Linagliptin (Tradjenta) 5 mg PO DAILY [facility] Losartan Potassium (Cozaar) 50 mg PO DAILY [facility] Magnesium Hydroxide (Milk Of Magnesia) 30 ml PO .PRN X 1 PRN PRN Reason: Constipation Meclizine HCl (Antivert) 25 mg PO TID PRN PRN PRN Reason: DIZZINESS Melatonin (Melatonin) 6 mg PO QHS [facility] Menthol (Bengay Vanishing Scent) 1 applic TOPICAL TID PRN PRN Reason: PAIN Metoprolol Tartrate (Lopressor (Beta Freedom)) 25 mg PO BID [facility] Multivitamins (Multivitamin) 1 tablet PO DAILY@0800 [facility] Oxycodone HCl (Oxyir) 5 mg PO Q6H PRN PRN PRN Reason: PAIN Last Admin: 08/10/18 13:26 Dose: 5 mg Pantoprazole Sodium (Protonix) 20 mg PO DAILY [facility] Potassium Chloride (K-Dur) 20 meq [facility] Senna/Docusate Sodium (Senokot-S, Ada-Colace) 2 tablet PO BID [facility] Medical Necessity - Tobacco Use Smoking Status: Never smoker Assessment/Plan All Active Problems (Last Reviewed 06/29/18 @ 11:33 by Lia Velarde) Dyspnea on exertion (Acute) Constipation (Acute) Preop cardiovascular exam (Acute) 1. Subdural hematoma secondary to fall from a chair -Continue with inpatient rehab hold aspirin -Okay to receive prophylactic Lovenox for DVT prevention -Continue with PT/OT -Continue with oxycodone for pain -Meclizine for dizziness as needed 2. Hypertension/hyperlipidemia/CAD status post stent -Blood pressure so far is been stable -We will continue with his home medications of Crestor, losartan, metoprolol, and Lasix -Per request neurosurgery will hold off on an aspirin for now. His stent was placed in 2008, he will have to be restarted on antiplatelet at some point in the near future. 3. DM2 -Monitor blood sugars with Accu-Cheks, and providing appropriate diet -Continue with his home alogliptin 4. Hypothyroidism -Stable -Continue with Synthroid 5. GERD -Stable -Continue with PPI 6. Depression/anxiety -Stable -Continue with home Celexa DVT: Lovenox Code Visit Inpatient E&M: 20704 Subs Hosp L3
[2018-08-10 14:00] VITALS: PULSE 57
--- NOTE | 2018-08-10 15:51 | NURSING ---
Alert and oriented but needs reminders and cues and is forgetful and can repeat self. Pleasant. Verbalized understanding to being a fall risk and must ask for staff assist for all transfers. Call daly in place and demo done.
[2018-08-10] MEDS: Furosemide 40 MG Tablet PO (16:40)
[2018-08-10] MEDS: Calcium Carb/Vitamin D 1 TABLET Tablet PO (16:40)
[2018-08-10 16:41] LABS: Bedside Glucose 99 mg/dL (70-110)
[2018-08-10 19:50] VITALS: BP 128/69; PULSE 60; RESP 20; TEMP 36.6; O2SAT 95
[2018-08-10] MEDS: Menthol/Lanolin/Calamine/Znox 113 GM Tube 1 APPLIC TOPICAL (19:56)
[2018-08-10] MEDS: MELATONIN 3 MG TABLET 6 MG PO (20:24)
[2018-08-10] MEDS: Atorvastatin Calcium 80 MG Tablet PO (20:26)
[2018-08-10 20:27] VITALS: PULSE 60
[2018-08-10] MEDS: Metoprolol Tartrate 25 MG Tablet PO (20:27)
[2018-08-10 21:41] LABS: Bedside Glucose 121 mg/dL (70-110)
[2018-08-10 22:00] VITALS: PULSE 60; RESP 17
[2018-08-11] VITALS (7 sets, daily range): BP systolic 106–128; BP diastolic 66–78; PULSE 50–61; RESP 16; TEMP 36.6–36.7; O2SAT 92–93
[2018-08-11] MEDS: Acetaminophen 500 MG Tablet 1000 MG PO ×3 (00:47→20:36)
[2018-08-11 06:08] LABS: Absolute Lymphocyte Count 1.93 X10^3/ul (0.83-4.51); Absolute Neutrophil Count 4.2 X10^3/uL (2.0-7.7); Basophil# 0.02 X10^3/uL; Basophil% 0.3 % (0-1); Eosinophils% 2.9 % (0-5); Hematocrit 36.4 % (40-54); Hemoglobin 12.7 g/dl (13.0-16.5); Lymphocyte # 1.93 X10^3/ul (4.0); Lymphocyte % 28.1 % (19-41); Mean Corp Hgb Conc 34.9 g/gl (32-36); Mean Corpuscular Hgb 29.1 pg (27.0-32.0); Mean Corpuscular Volume 83.5 fL (80-94); Mean Platelet Vol. 10.2 fl (6.2-12.0); Monocyte# 0.49 X10^3/uL; Monocyte% 7.1 % (0-10); Neutrophil # 4.21 X10^3/uL (2.7-7.7); Neutrophil % 61.5 % (47-70); Platelet Count 181 K/mm3 (150-450); RBC Distribution Width CV 13.7 % (11.6-14.6); RBC Distribution Width SD 40.5 fl (35.1-43.9); Red Blood Count 4.36 M/mm3 (4.6-6.2); White Blood Count 6.9 K/mm3 (4.4-11.0)
[2018-08-11 06:25] LABS: POSITIVE COUNT NO; POSITIVE DIFFERENTIAL NO; POSITIVE MORPHOLOGY NO
[2018-08-11 06:31] LABS: AST(SGOT) 21 U/L (15-37); Alanine Aminotransfer ALT/SGPT 33 U/L (16-61); Alkaline Phosphatase 88 U/L (45-117); Anion Gap 11 (5-15); BUN 10 mg/dL (7-18); BUN/Creat Ratio 12.2 RATIO (10-20); Calcium,Total 8.7 mg/dL (8.5-10.1); Chloride 106 mmol/L (98-107); Creatinine, Serum 0.82 mg/dL (0.70-1.30); EST Glomerular Filtration Rate 102 mL/min (>60); Est Glom Filt Rate - Afr Amer 124 mL/min (>60); Estimated Creatinine Clearance 92.93 ml/min; Globulin 3.1 g/dL (2.2-4.2); Glucose 95 mg/dL (74-106); Potassium 3.2 mmol/L (3.5-5.1); Protein, Total 6.1 g/dL (6.4-8.2); Sodium Level 143 mmol/L (136-145)
[2018-08-11 06:36] LABS: Bedside Glucose 115 mg/dL (70-110)
[2018-08-11] MEDS: Menthol/Lanolin/Calamine/Znox 113 GM Tube 1 APPLIC TOPICAL ×2 (06:47→20:46)
[2018-08-11] MEDS: Levothyroxine 100 MCG Tablet PO (06:47)
[2018-08-11] MEDS: Meclizine HCl 25 MG Tablet PO ×2 (06:47→20:37)
[2018-08-11] MEDS: Enoxaparin 40 MG/0.4 ML Syringe SC (06:47)
[2018-08-11] MEDS: oxyCODONE 5 MG Tablet PO ×2 (06:47→17:08)
[2018-08-11] MEDS: LINAGLIPTIN 5 MG TABLET PO (08:03)
[2018-08-11] MEDS: Furosemide 40 MG Tablet PO ×2 (08:03→16:59)
[2018-08-11] MEDS: Losartan Potassium 50 MG Tablet PO (08:03)
[2018-08-11] MEDS: Citalopram 20 MG Tablet PO (08:03)
[2018-08-11] MEDS: Pantoprazole Sodium 20 MG Tablet PO (08:03)
[2018-08-11] MEDS: Senna/Docusate Sodium 1 Tablet 2 TABLET PO (08:03)
[2018-08-11] MEDS: Cyanocobalamin 500 MCG Tablet 1000 MCG PO (08:04)
[2018-08-11] MEDS: Multivitamins,Therapeutic Tablet 1 TABLET PO (08:04)
[2018-08-11] MEDS: Calcium Carb/Vitamin D 1 TABLET Tablet PO ×2 (08:04→16:59)
[2018-08-11] MEDS: Metoprolol Tartrate 25 MG Tablet PO (08:04)
--- NOTE | 2018-08-11 11:24 | PCM.HP.COS ---
History of Present Illness Date of Admission: 08/10/18 Chief Complaint: Debility secondary to posterior occipital skull fracture with subdural bleed The patient is a 57 year old M with PMH Diabetes, HTN, CAD with cardiac stent, Depression, Anxiety, Gastric bypass surgery January 2018 admitted to [facility] on 08/10/2018 for debility secondary to posterior occipital skull fracture with subdural intracranial bleed, for greater of 3 hours of therapy daily with a goal of returning back home at or near her prior level of functional dependence. Patient presented to [facility] on 08/02/2018 due to patient was standing on a chair changing a lightbulb and loss balance and fell onto the floor with LOC. Patient had scalp laceration and CT scan of brain showed mild subdural hematoma 5 mm along the interhemispheric fissure and possible non-displaced nondepressed fracture of the left side of occipital bone. CT of spine showed normal unenhanced examination of cervical spine. Patient was transferred to [facility]. Neurosurgery was consulted and no acute surgical intervention was needed at that time. Patient c/o left shoulder pain post fall. Dr. Ayala, orthopedic surgeon was consulted. X-ray to right shoulder showed no fractures or dislocations. On 08/04/2018 repeat CTH stable. Per Dr. Marinelli Neurosurgeon ASA on hold and will need resolution of hemorrhage prior to anticoagulation therapy. A repeat CTH was done on 08/10/2018 before discharge and results were not available for review, requested results. Post fall, patient developed vertigo, nausea, headaches. Vertigo and nausea resolved. Patient lives with spouse in a duplex, was independent with all mobility, transfers and driving and only needed assistance to put on shoes and socks prior to hospital admission. Past Medical History Past Medical History (Chronic Problems): Chronic Problems (Last Updated 08/11/18 @ 12:59 by AILYN Villeda) Dizziness (Chronic) Hypothyroidism (acquired) (Chronic) . Instructed how to take and to avoid calcium, iron, and vitamins with 4 hours of taking this medication. History of coronary artery stent placement (Chronic) BMS to proximal LAD 02/2009 Atherosclerotic heart disease of [place] coronary artery without angina pectoris (Chronic) HTN (hypertension) (Chronic) Hyperlipidemia (Chronic) Hyperlipidemia associated with type 2 diabetes mellitus (Chronic) Continues on statin without side effect. States he is taking as directed. Chol 131, ldl 65 Obstructive sleep apnea (Chronic) Using his machine Depression (Chronic) HTN (hypertension) (Chronic) Controlled at present time. Diabetes mellitus type 2 in obese (Chronic) . Post op bariatric surgery. Medical History: Medical History (Last Updated 08/11/18 @ 12:59 by Maggie Jacobson, SENIOR INFRASTRUCTURE ARCHITECT-C) Dyspnea on exertion (Acute) R06.09 Constipation (Acute) K59.00 Hypothyroidism (acquired) (Chronic) E03.9 . Instructed how to take and to avoid calcium, iron, and vitamins with 4 hours of taking this medication. Preop cardiovascular exam (Acute) Z01.810 Atherosclerotic heart disease of [place] coronary artery without angina pectoris (Chronic) I25.10 HTN (hypertension) (Chronic) I10 Hyperlipidemia (Chronic) E78.5 Hyperlipidemia associated with type 2 diabetes mellitus (Chronic) E11.69, E78.5 Continues on statin without side effect. States he is taking as directed. Chol 131, ldl 65 Obstructive sleep apnea (Chronic) G47.33 Using his machine Depression (Chronic) F32.9 HTN (hypertension) (Chronic) I10 Controlled at present time. Diabetes mellitus type 2 in obese (Chronic) E11.9, E66.9 . Post op bariatric surgery. Morbid obesity with BMI of 40.0-44.9, adult E66.01, Z68.41 Pressure ulcer of coccygeal region, stage 2 L89.152 Hiatal hernia K44.9 Allergy-induced asthma J45.909 CAD (coronary artery disease) I25.10 Chronic diarrhea K52.9 Diabetes type 2, uncontrolled E11.65 Dx : 2002 Last exacerbation : DKA : never Hypoglycemic episode : never ER visit : never Obesity E66.9 Sleep apnea G47.30 Allergies celecoxib [From Celebrex] Allergy (Intermediate, Verified 06/24/18 10:33) Rash Home Medications: Ambulatory Orders Medication Instructions Recorded Rosuvastatin Calcium [Crestor] 40 mg PO DAILY 01/31/17 alogliptin 25 mg tablet 25 mg PO DAILY 09/25/17 citalopram 20 mg tablet 20 mg PO DAILY 05/14/18 Hydroxyzine HCl 25 mg PO DAILY PRN 08/02/18 Acetaminophen [Tylenol Extra 1,000 mg PO Q8H PRN 08/10/18 Strength] Calcium Carbonate/Vitamin D3 1 each PO BID 08/10/18 [Calcium 600 + Vit D Caplet] Clotrimazole [Lotrimin AF] 1 applicatio TP BID 08/10/18 Cyanocobalamin (Vitamin B-12) 1,000 mcg PO DAILY 08/10/18 [Vitamin B-12] Furosemide 40 mg PO BID 08/10/18 Levothyroxine Sodium [Synthroid] 100 mcg PO DAILY@0600 08/10/18 Losartan Potassium 50 mg PO DAILY 08/10/18 Meclizine HCl [Antivert] 25 mg PO TID PRN PRN 08/10/18 Melatonin 6 mg PO QHS 08/10/18 Menthol [Bengay Vanishing Scent] 1 applic TOPICAL TID PRN 08/10/18 Metoprolol Tartrate [Lopressor 25 mg PO BID 08/10/18 (Beta Freedom)] Multivitamin [Tab-A-Kandis] 1 each PO DAILY 08/10/18 Omeprazole [Prilosec] 20 mg PO DAILY 08/10/18 Oxycodone [Oxyir] 5 mg PO Q6H PRN PRN 08/10/18 Potassium Chloride [K-Dur] 20 meq PO DAILY 08/10/18 Surgical History: Surgical History (Last Reviewed 06/29/18 @ 11:33 by Lia Velarde) History of coronary artery stent placement (Chronic) Z95.5 BMS to proximal LAD 02/2009 Hx of cholecystectomy Z90.49 Status post bariatric surgery Z98.84 H/O hemorrhoidectomy Z98.890 removal of enlarged lymph node removal of lypoma Surgical History: - - cardiac stent Psychiatric History: Anxiety, Depression Lives: Spouse/ Significant Other Smoking Status: Never smoker Alcohol: None Drugs: None Review of Systems Constitutional: Denies: Chills, Fever, Weight Change Eyes: Denies: Blurred vision, Double vision, Pain, Vision Change HEENT: Denies: Difficulty Hearing, Difficulty Swallowing, Visual Changes Cardiovascular: Denies: Chest Pain, Chest Pressure, Chest Tightness, Palpitations Respiratory: Denies: Cough, Shortness of breath at rest, Shortness of breath upon exertion, Sputum production Gastrointestinal: Denies: Abdominal Pain, Nausea, Vomiting Genitourinary: Denies: Dysuria, Frequency Musculoskeletal: Reports: Shoulder Pain - mild pain post fall Neurological: Reports: Balance problems - Self corrects with walker and therapy, - - lightheadedness with activity. Denies: Blurred vision, Double vision, Change in Speech, Difficulty swallowing Psychiatric: Denies: Anxiety, Depression, Suicidal Ideations VTE Information - Inpt Only VTE Present on Admission: No VTE Mechan Device Prophylaxis: Knee High ERNESTO Hose VTE Pharm Prophylaxis ordered?: Yes Patient Problems: Active and Suspected Problems (Last Updated 08/11/18 @ 12:59 by Maggie Jacobson, SENIOR INFRASTRUCTURE ARCHITECT-C) Pressure ulcer of coccygeal region, stage 2 (Acute) - Physical Exam General: Alert, Oriented x3, Cooperative HEENT: Atraumatic, PERRLA Oral: - - white coating Neck: Supple, No JVD Lungs: Clear to auscultation, Normal air movement Cardiovascular: Regular rate, Regular Rhythm Abdomen: Bowel Sounds Present, Soft, Non-Distended, Obese Extremities: No clubbing, No cyanosis Skin: - - Stage II coccyx Musculoskeletal: No Tenderness to Palpation of Joints or Extremities Neurological: Cranial nerves II-XII grossly intact, Deep Tendon Reflexes 2+/4 and Symmetrical, Neuro grossly intact, Motor Exam 5/5 strength throughout, - - NIHSS 0 Psych/Mental Status: Normal Affect, Appropriate, Alert and oriented to time, place, person, mood and affect Vital Signs Temp Pulse Resp BP Pulse Ox 97.8 F 61 16 128/78 H 93 08/11/18 06:44 08/11/18 08:04 08/11/18 06:44 08/11/18 08:04 08/11/18 06:44 Oxygen Delivery Method Room Air Weight: 121.563 kg Body Mass Index (BMI) 42.0 Orthostatic Vital Signs Start: 08/11/18 06:12 Freq: q24h Status: Active Protocol: Activity Type Activity Date Activity User E-Sign Co-Sign Detail Recorded Client Recorded Date Recorded By Document 08/11/18 06:12 CHAPIN [id number] 08/11/18 06:17 CHAPIN 08/11/18 06:12 Orthostatic Vitals Standing -Blood Pressure (90/60-120/80) 106/66 -Extremity Use Right Arm -Pulse Rate (60-100) 56 L Sitting -Blood Pressure (90/60-120/80) 119/69 -Extremity Use Right Arm -Pulse Rate (60-100) 52 L Lying -Blood Pressure (90/60-120/80) 128/74 H -Extremity Use Right Arm -Pulse Rate (60-100) 50 L Intake and Output for Last 24 Hours 08/09/18 08/10/18 08/11/18 23:59 23:59 23:59 Intake Total 720 / 720 220 / 220 Balance 720 / 720 220 / 220 Laboratory Tests Past 24 Hrs 08/11/18 08/11/18 05:44 05:44 WBC 6.9 RBC 4.36 L Hgb 12.7 L Hct 36.4 L MCV 83.5 MCH 29.1 MCHC 34.9 RDW 13.7 RDW Differential 40.5 Plt Count 181 MPV 10.2 Immature Gran % (Auto) 0.100 Neut % (Auto) 61.5 Lymph % (Auto) 28.1 [place] % (Auto) 7.1 Eos % (Auto) 2.9 Baso % (Auto) 0.3 Absolute Neuts (auto) 4.2 Absolute Lymphs (auto) 1.93 Total Counted Not Reportable Sodium 143 Potassium 3.2 L Chloride 106 Carbon Dioxide 26.0 Anion Gap 11 BUN 10 Creatinine 0.82 Estim Creat Clear Calc 92.93 Est GFR (MDRD) Af Amer 124 Est GFR (MDRD) Non-Af 102 BUN/Creatinine Ratio 12.2 Glucose 95 Calcium 8.7 Total Bilirubin 1.00 AST 21 ALT 33 Alkaline Phosphatase 88 Total Protein 6.1 L Albumin 3.0 L Globulin 3.1 Albumin/Globulin Ratio 1.0 POC Glucose 08/11/18 08/10/18 08/10/18 06:27 21:35 16:37 POC Glucose 115 H 121 H 99 Assessment/Plan All Active Problems (Last Updated 08/11/18 @ 12:59 by Maggie Jacobson, SENIOR INFRASTRUCTURE ARCHITECT-C) Pressure ulcer of coccygeal region, stage 2 (Acute) Dyspnea on exertion (Acute) Constipation (Acute) Preop cardiovascular exam (Acute) The patient is a 57 year old M with PMH Diabetes, HTN, MARKY, HLD, CAD with cardiac stent, Depression, Anxiety, Gastric bypass surgery January 2018 admitted to [facility] on 08/10/2018 for debility secondary to posterior occipital skull fracture with subdural intracranial bleed, for greater of 3 hours of therapy daily with a goal of returning back home at or near her prior level of functional dependence. Patient presented to [facility] ER on 08/02/2018 due to patient was standing on a chair changing a lightbulb and loss balance and fell onto the floor with LOC. Patient had scalp laceration and CT scan of brain showed mild subdural hematoma 5 mm along the interhemispheric fissure and possible non-displaced nondepressed fracture of the left side of occipital bone. CT of spine showed normal unenhanced examination of cervical spine. Patient was transferred to [facility]. Neurosurgery was consulted and no acute surgical intervention was needed at that time. Patient c/o left shoulder pain post fall. Dr. Ayala, orthopedic surgeon was consulted. X-ray to right shoulder showed no fractures or dislocations. On 08/04/2018 repeat CTH stable. Per Dr. Marinelli Neurosurgeon ASA on hold and will need resolution of hemorrhage prior to anticoagulation therapy. A repeat CTH was done on 08/10/2018 before discharge and results were not available for review, requested results. Post fall, patient developed vertigo, nausea, headaches. Vertigo and nausea resolved. Patient lives with spouse in a duplex, was independent with all mobility, transfers and driving and only needed assistance to put on shoes and socks prior to hospital admission. Plan - PT for mobility - OT for ADLs - ST for evaluation - Analgesics as needed - Posterior occipital skull fracture with subdural intracranial bleed no anti-coagulation until resolution of hemorrhage, Hold ASA O.K for DVT prophylaxis Lovenox per neurosurgeon - Diabetes Accuchecks AC&HS, on Tradjenta On 03/13/2018 HgbA1c 7.5 % recheck level - HTN on Lopressor and Cozaar - HLD on Lipitor - MARKY on CPAP - CAD with cardiac stent on Lopressor, Cozaar, Lasix and Lipitor - Anxiety on Visteral pamoate - Depression on Celexa - GERD on Protonix - Insomnia on melatonin - Hypokalemia on K-Dur On 08/11/18 K+ level 3.2 K-dur 40 meq x1 and repeat K+ in am - Hypothyroidism on Synthroid - Vertigo on Antivert PRN - Morbid obesity BMI 42.0 - Occipital laceration discontinue sutures on 08/13/2018 - Thrush started nystatin - Abdominal fold excoriated on nystatin powder - Stage II pressure ulcer on coccyx present on admission- Calmoseptine and Wound consult - GI/DVT prophylaxis Protonix/Lovenox SQ, knee high ernesto hose - Fall precautions - Bowel protocol - Medical management per hospitalist- consult - F/U with PCP, neurosurgeon, wind turbine engineer
--- NOTE | 2018-08-11 11:29 | HP.PCM.COS_ITS ---
History of Present Illness Date of Admission: 08/10/18 Chief Complaint: Debility secondary to posterior occipital skull fracture with subdural bleed The patient is a 57 year old M with PMH Diabetes, HTN, CAD with cardiac stent, Depression, Anxiety, Gastric bypass surgery January [address] [facility] on 08/10/2018 for debility secondary to posterior occipital skull fracture with subdural intracranial bleed, for greater of 3 hours of therapy daily with a goal of returning back home at or near her prior level of functional dependence. Patient presented to [facility] ER on 08/02/2018 due to patient was standing on a chair changing a lightbulb and loss balance and fell onto the floor with LOC. Patient had scalp laceration and CT scan of brain showed mild subdural hematoma 5 mm along the interhemispheric fissure and possible non- displaced nondepressed fracture of the left side of occipital bone. CT of spine showed normal unenhanced examination of cervical spine. Patient was [facility] Neurosurgery was consulted and no acute surgical intervention was needed at that time. Patient c/o left shoulder pain post fall. Dr. Ayala, orthopedic surgeon was consulted. X-ray to right shoulder showed no fractures or dislocations. On 08/04/2018 repeat CTH stable. Per Dr. Marinelli Neurosurgeon ASA on hold and will need resolution of hemorrhage prior to anticoagulation therapy. A repeat CTH was done on 08/10/2018 before discharge and results were not available for review, requested results. Post fall, patient developed vertigo, nausea, headaches. Vertigo and nausea resolved. Patient lives with spouse in a duplex, was independent with all mobility, transfers and driving and only needed assistance to put on shoes and socks prior to hospital admission. Past Medical History Past Medical History (Chronic Problems): Chronic Problems (Last Updated 08/11/18 @ 12:59 by AILYN Villeda) Dizziness (Chronic) Hypothyroidism (acquired) (Chronic) . Instructed how to take and to avoid calcium, iron, and vitamins with 4 hours of taking this medication. History of coronary artery stent placement (Chronic) BMS to proximal LAD 02/2009 Atherosclerotic heart disease of [place] coronary artery without angina pectoris (Chronic) HTN (hypertension) (Chronic) Hyperlipidemia (Chronic) Hyperlipidemia associated with type 2 diabetes mellitus (Chronic) Continues on statin without side effect. States he is taking as directed. Chol 131, ldl 65 Obstructive sleep apnea (Chronic) Using his machine Depression (Chronic) HTN (hypertension) (Chronic) Controlled at present time. Diabetes mellitus type 2 in obese (Chronic) . Post op bariatric surgery. Medical History: Medical History (Last Updated 08/11/18 @ 12:59 by Maggie Jacobson, FRONT OFFICE ASSOCIATE-C) Dyspnea on exertion (Acute) R06.09 Constipation (Acute) K59.00 Hypothyroidism (acquired) (Chronic) E03.9 . Instructed how to take and to avoid calcium, iron, and vitamins with 4 hours of taking this medication. Preop cardiovascular exam (Acute) Z01.810 Atherosclerotic heart disease of [place] coronary artery without angina pectoris (Chronic) I25.10 HTN (hypertension) (Chronic) I10 Hyperlipidemia (Chronic) E78.5 Hyperlipidemia associated with type 2 diabetes mellitus (Chronic) E11.69, E78.5 Continues on statin without side effect. States he is taking as directed. Chol 131, ldl 65 Obstructive sleep apnea (Chronic) G47.33 Using his machine Depression (Chronic) F32.9 HTN (hypertension) (Chronic) I10 Controlled at present time. Diabetes mellitus type 2 in obese (Chronic) E11.9, E66.9 . Post op bariatric surgery. Morbid obesity with BMI of 40.0-44.9, adult E66.01, Z68.41 Pressure ulcer of coccygeal region, stage 2 L89.152 Hiatal hernia K44.9 Allergy-induced asthma J45.909 CAD (coronary artery disease) I25.10 Chronic diarrhea K52.9 Diabetes type 2, uncontrolled E11.65 Dx : 2002 Last exacerbation : DKA : never Hypoglycemic episode : never ER visit : never Obesity E66.9 Sleep apnea G47.30 Allergies celecoxib [From Celebrex] Allergy (Intermediate, Verified 06/24/18 10:33) Rash Home Medications: Ambulatory Orders Medication Instructions Recorded Rosuvastatin Calcium [Crestor] 40 mg PO DAILY 01/31/17 alogliptin 25 mg tablet 25 mg PO DAILY 09/25/17 citalopram 20 mg tablet 20 mg PO DAILY 05/14/18 Hydroxyzine HCl 25 mg PO DAILY PRN 08/02/18 Acetaminophen [Tylenol Extra 1,000 mg PO Q8H PRN 08/10/18 Strength] Calcium Carbonate/Vitamin D3 1 each PO BID 08/10/18 [Calcium 600 + Vit D Caplet] Clotrimazole [Lotrimin AF] 1 applicatio TP BID 08/10/18 Cyanocobalamin (Vitamin B-12) 1,000 mcg PO DAILY 08/10/18 [Vitamin B-12] Furosemide 40 mg PO BID 08/10/18 Levothyroxine Sodium [Synthroid] 100 mcg PO DAILY@0600 08/10/18 Losartan Potassium 50 mg PO DAILY 08/10/18 Meclizine HCl [Antivert] 25 mg PO TID PRN PRN 08/10/18 Melatonin 6 mg PO QHS 08/10/18 Menthol [Bengay Vanishing Scent] 1 applic TOPICAL TID PRN 08/10/18 Metoprolol Tartrate [Lopressor 25 mg PO BID 08/10/18 (Beta Freedom)] Multivitamin [Tab-A-Kandis] 1 each PO DAILY 08/10/18 Omeprazole [Prilosec] 20 mg PO DAILY 08/10/18 Oxycodone [Oxyir] 5 mg PO Q6H PRN PRN 08/10/18 Potassium Chloride [K-Dur] 20 meq PO DAILY 08/10/18 Surgical History: Surgical History (Last Reviewed 06/29/18 @ 11:33 by Lia Velarde) History of coronary artery stent placement (Chronic) Z95.5 BMS to proximal LAD 02/2009 Hx of cholecystectomy Z90.49 Status post bariatric surgery Z98.84 H/O hemorrhoidectomy Z98.890 removal of enlarged lymph node removal of lypoma Surgical History: - - cardiac stent Psychiatric History: Anxiety, Depression Lives: Spouse/ Significant Other Smoking Status: Never smoker Alcohol: None Drugs: None Review of Systems Constitutional: Denies: Chills, Fever, Weight Change Eyes: Denies: Blurred vision, Double vision, Pain, Vision Change HEENT: Denies: Difficulty Hearing, Difficulty Swallowing, Visual Changes Cardiovascular: Denies: Chest Pain, Chest Pressure, Chest Tightness, Palpitati ons Respiratory: Denies: Cough, Shortness of breath at rest, Shortness of breath upon exertion, Sputum production Gastrointestinal: Denies: Abdominal Pain, Nausea, Vomiting Genitourinary: Denies: Dysuria, Frequency Musculoskeletal: Reports: Shoulder Pain - mild pain post fall Neurological: Reports: Balance problems - Self corrects with walker and therapy, - - lightheadedness with activity. Denies: Blurred vision, Double vision, Change in Speech, Difficulty swallowing Psychiatric: Denies: Anxiety, Depression, Suicidal Ideations VTE Information - Inpt Only VTE Present on Admission: No VTE Mechan Device Prophylaxis: Knee High ERNESTO Hose VTE Pharm Prophylaxis ordered?: Yes Patient Problems: Active and Suspected Problems (Last Updated 08/11/18 @ 12:59 by Maggie Jacobson, FRONT OFFICE ASSOCIATE-C) Pressure ulcer of coccygeal region, stage 2 (Acute) - Physical Exam General: Alert, Oriented x3, Cooperative HEENT: Atraumatic, PERRLA Oral: - - white coating Neck: Supple, No JVD Lungs: Clear to auscultation, Normal air movement Cardiovascular: Regular rate, Regular Rhythm Abdomen: Bowel Sounds Present, Soft, Non-Distended, Obese Extremities: No clubbing, No cyanosis Skin: - - Stage II coccyx Musculoskeletal: No Tenderness to Palpation of Joints or Extremities Neurological: Cranial nerves II-XII grossly intact, Deep Tendon Reflexes 2+/4 and Symmetrical, Neuro grossly intact, Motor Exam 5/5 strength throughout, - - NIHSS 0 Psych/Mental Status: Normal Affect, Appropriate, Alert and oriented to time, place, person, mood and affect Vital Signs Temp Pulse Resp BP Pulse Ox 97.8 F 61 16 128/78 H 93 08/11/18 06:44 08/11/18 08:04 08/11/18 06:44 08/11/18 08:04 08/11/18 06:44 Oxygen Delivery Method Room Air Weight: 121.563 kg Body Mass Index (BMI) 42.0 Orthostatic Vital Signs Start: 08/11/18 06:12 Freq: q24h Status: Active Protocol: Activity Type Activity Date Activity User E-Sign Co-Sign Detail Recorded Client Recorded Date Recorded By Document 08/11/18 06:12 CHAPIN [id number] 08/11/18 06:17 CHAPIN 08/11/18 06:12 Orthostatic Vitals Standing -Blood Pressure (90/60-120/80) 106/66 -Extremity Use Right Arm -Pulse Rate (60-100) 56 L Sitting -Blood Pressure (90/60-120/80) 119/69 -Extremity Use Right Arm -Pulse Rate (60-100) 52 L Lying -Blood Pressure (90/60-120/80) 128/74 H -Extremity Use Right Arm -Pulse Rate (60-100) 50 L Intake and Output for Last 24 Hours 08/09/18 08/10/18 08/11/18 23:59 23:59 23:59 Intake Total 720 / 720 220 / 220 Balance 720 / 720 220 / 220 Laboratory Tests Past 24 Hrs 08/11/18 08/11/18 05:44 05:44 WBC 6.9 RBC 4.36 L Hgb 12.7 L Hct 36.4 L MCV 83.5 MCH 29.1 MCHC 34.9 RDW 13.7 RDW Differential 40.5 Plt Count 181 MPV 10.2 Immature Gran % (Auto) 0.100 Neut % (Auto) 61.5 Lymph % (Auto) 28.1 [place] % (Auto) 7.1 Eos % (Auto) 2.9 Baso % (Auto) 0.3 Absolute Neuts (auto) 4.2 Absolute Lymphs (auto) 1.93 Total Counted Not Reportable Sodium 143 Potassium 3.2 L Chloride 106 Carbon Dioxide 26.0 Anion Gap 11 BUN 10 Creatinine 0.82 Estim Creat Clear Calc 92.93 Est GFR (MDRD) Af Amer 124 Est GFR (MDRD) Non-Af 102 BUN/Creatinine Ratio 12.2 Glucose 95 Calcium 8.7 Total Bilirubin 1.00 AST 21 ALT 33 Alkaline Phosphatase 88 Total Protein 6.1 L Albumin 3.0 L Globulin 3.1 Albumin/Globulin Ratio 1.0 POC Glucose 08/11/18 08/10/18 08/10/18 06:27 21:35 16:37 POC Glucose 115 H 121 H 99 Assessment/Plan All Active Problems (Last Updated 08/11/18 @ 12:59 by Maggie Jacobson, MARISOL-C) Pressure ulcer of coccygeal region, stage 2 (Acute) Dyspnea on exertion (Acute) Constipation (Acute) Preop cardiovascular exam (Acute) The patient is a 57 year old M with PMH Diabetes, HTN, MARKY, HLD, CAD with cardiac stent, Depression, Anxiety, Gastric bypass surgery January [address] [facility] on 08/10/2018 for debility secondary to posterior occipital skull fracture with subdural intracranial bleed, for greater of 3 hours of therapy daily with a goal of returning back home at or near her prior level of functional dependence. Patient presented to [facility] ER on 08/02/2018 due to patient was standing on a chair changing a lightbulb and loss balance and fell onto the floor with LOC. Patient had scalp laceration and CT scan of brain showed mild subdural hematoma 5 mm along the interhemispheric fissure and possible non-displaced nondepressed fracture of the left side of occipital bone. CT of spine showed normal unenhanced examination of cervical spine. Patient was [facility]. Neurosurgery was consulted and no acute surgical intervention was needed at that time. Patient c/o left shoulder pain post fall. Dr. Ayala, orthopedic surgeon was consulted. X-ray to right shoulder showed no fractures or dislocations. On 08/04/2018 repeat CTH stable. Per Dr. Marinelli Neurosurgeon ASA on hold and will need resolution of hemorrhage prior to anticoagulation therapy. A repeat CTH was done on 08/10/2018 before discharge and results were not available for review, requested results. Post fall, patient developed vertigo, nausea, headaches. Vertigo and nausea resolved. Patient lives with spouse in a duplex, was independent with all mobility, transfers and driving and only needed assistance to put on shoes and socks prior to hospital admission. Plan - PT for mobility - OT for ADLs - ST for evaluation - Analgesics as needed - Posterior occipital skull fracture with subdural intracranial bleed no anti-coagulation until resolution of hemorrhage, Hold ASA O.K for DVT prophylaxis Lovenox per neurosurgeon - Diabetes Accuchecks AC&HS, on Tradjenta On 03/13/2018 HgbA1c 7.5 % recheck level - HTN on Lopressor and Cozaar - HLD on Lipitor - MARKY on CPAP - CAD with cardiac stent on Lopressor, Cozaar, Lasix and Lipitor - Anxiety on Visteral pamoate - Depression on Celexa - GERD on Protonix - Insomnia on melatonin - Hypokalemia on K-Dur On 08/11/18 K+ level 3.2 K-dur 40 meq x1 and repeat K+ in am - Hypothyroidism on Synthroid - Vertigo on Antivert PRN - Morbid obesity BMI 42.0 - Occipital laceration discontinue sutures on 08/13/2018 - Thrush started nystatin - Abdominal fold excoriated on nystatin powder - Stage II pressure ulcer on coccyx present on admission- Calmoseptine and Wound consult - GI/DVT prophylaxis Protonix/Lovenox SQ, knee high ernesto hose - Fall precautions - Bowel protocol - Medical management per hospitalist- consult - F/U with PCP, neurosurgeon, furnace caretaker
[2018-08-11 11:40] LABS: Bedside Glucose 113 mg/dL (70-110)
[2018-08-11 13:09] LABS: Hemoglobin A1c 6.3 % (4.2-6.3)
[2018-08-11] MEDS: NYSTATIN 500,000 UNIT/5 ML UDC 500000 UNIT PO ×3 (14:08→20:37)
--- NOTE | 2018-08-11 17:04 | CHAPLAIN ---
Type of Pastoral Visit _x__ Initial Visit ___ Follow-up Visit ___ On-call Visit ___ General Patient Visit ___ Spiritual Assessment ___ Family Conference ___ Bereavement ___ Rapid Response ___ Code Blue ___ Other (describe below) Pastoral Care Referral From _x__ Patient ___ Family ___ Nurse ___ Physician ___ Tinning Equipment Tender ___ Trim Carpenter ___ Other (describe below) Sacrament/Intervention _x__ Active listening ___ Anointing ___ Sabianist ___ Bereavement ___ Communion _x__ Debo exploration ___ _x__ Life review _x__ Prayer ___ Reconciliation ___ Sacrament of Sick ___ Supportive presence ___ Wedding ___ Other (describe below) Pastoral Comments
[2018-08-11 17:25] LABS: Bedside Glucose 117 mg/dL (70-110)
--- NOTE | 2018-08-11 18:25 | NURSING ---
Addendum entered by Leticia Kebede 08/12/18 09:58: Toshia from Dr Marinelli returned call. Pt dose not alla to have another CT exam the one done on the will be enough. Pt to F/U with Dr Marinelli on DC Original Note: Spoke with Natividad [phone] Marinelli Neurosurgery in regards to order for f/u CT for 08/11-08/14. Pt had CT prior to leaving [place] on 08/10. [place] to call back to let us know if pt will need another CT or if the one done on 08/10 is all he needs.
[2018-08-11 20:31] LABS: Bedside Glucose 166 mg/dL (70-110)
[2018-08-11] MEDS: Atorvastatin Calcium 80 MG Tablet PO (20:36)
[2018-08-11] MEDS: MELATONIN 3 MG TABLET 6 MG PO (20:36)
[2018-08-11] MEDS: Metoprolol Tartrate 25 MG Tablet 12.5 MG PO (20:37)
[2018-08-12] VITALS (8 sets, daily range): BP systolic 83–145; BP diastolic 55–69; PULSE 45–54; RESP 18; TEMP 36.7–37.1; O2SAT 94–98
--- NOTE | 2018-08-12 03:22 | NURSING ---
Reviewed and agree with RESIDENTIAL TREATMENT COUNSELOR documentation and FIMs charting.
[2018-08-12 06:03] LABS: Anion Gap 8 (5-15); BUN 13 mg/dL (7-18); BUN/Creat Ratio 13.1 RATIO (10-20); Calcium,Total 8.7 mg/dL (8.5-10.1); Chloride 104 mmol/L (98-107); EST Glomerular Filtration Rate 82 mL/min (>60); Est Glom Filt Rate - Afr Amer 99 mL/min (>60); Glucose 88 mg/dL (74-106); Potassium 3.4 mmol/L (3.5-5.1); Sodium Level 143 mmol/L (136-145)
[2018-08-12] MEDS: Enoxaparin 40 MG/0.4 ML Syringe SC (06:41)
[2018-08-12] MEDS: Levothyroxine 100 MCG Tablet PO (06:41)
[2018-08-12] MEDS: Menthol/Lanolin/Calamine/Znox 113 GM Tube 1 APPLIC TOPICAL ×2 (06:41→20:27)
[2018-08-12 07:10] LABS: Bedside Glucose 99 mg/dL (70-110)
[2018-08-12] MEDS: Furosemide 40 MG Tablet PO ×2 (07:54→17:29)
[2018-08-12] MEDS: Losartan Potassium 50 MG Tablet PO (07:55)
[2018-08-12] MEDS: Senna/Docusate Sodium 1 Tablet 2 TABLET PO (07:55)
[2018-08-12] MEDS: Multivitamins,Therapeutic Tablet 1 TABLET PO (07:55)
[2018-08-12] MEDS: LINAGLIPTIN 5 MG TABLET PO (07:55)
[2018-08-12] MEDS: Cyanocobalamin 500 MCG Tablet 1000 MCG PO (07:55)
[2018-08-12] MEDS: Calcium Carb/Vitamin D 1 TABLET Tablet PO ×2 (07:55→17:29)
[2018-08-12] MEDS: Citalopram 20 MG Tablet PO (07:55)
[2018-08-12] MEDS: NYSTATIN 500,000 UNIT/5 ML UDC 500000 UNIT PO ×4 (07:55→20:25)
[2018-08-12] MEDS: Pantoprazole Sodium 20 MG Tablet PO (07:55)
[2018-08-12] MEDS: Meclizine HCl 25 MG Tablet PO ×2 (08:10→20:24)
[2018-08-12] MEDS: Acetaminophen 500 MG Tablet 1000 MG PO ×3 (08:12→20:24)
[2018-08-12] MEDS: Metoprolol Tartrate 25 MG Tablet 12.5 MG PO ×2 (09:26→20:25)
[2018-08-12] MEDS: oxyCODONE 5 MG Tablet PO (10:09)
--- NOTE | 2018-08-12 10:56 | CT_ITS ---
STUDY: CT BRAIN WITHOUT CONTRAST REASON FOR EXAM: Male, 57 years old. Headaches following a recent fall. RADIATION DOSAGE (If Supplied By Facility): CTDIvol = ( 44.99 ) mGy, DLP = ( 796.11 ) mGycm TECHNIQUE: Transaxial CT imaging of the brain was performed without administration of intravenous contrast material. Individualized dose optimization techniques were used for this CT. COMPARISON: Comparison is made with prior examination dated August 02, 2018. FINDINGS: Scalp hematoma overlying the posterior superior aspect of the right occipital parietal bone. Normal calvarium. There is mild cerebral atrophy with widening of the extra-axial spaces and ventricular dilatation. Normal white matter tracts of the cerebral hemispheres. Normal basal ganglia and thalami. Normal brainstem. Normal cerebellum. Since prior study, the subdural hematoma along the interhemispheric fissure as improved. A focal subdural is seen along the posterior aspect on the left side measuring 6.3 mm. This may also represent a focal area of the hemorrhagic contusion. Further follow-up is recommended. There are no findings of an acute ischemic infarction. Atherosclerotic calcification of the vertebral arteries bilaterally. Normal visualized paranasal sinuses. CT/Brain/Head without Contrast IMPRESSION: Improvement in the subdural hematoma involving the interhemispheric fissure. Persistent scalp hematoma overlying the posterior aspect of the right parietal occipital bones. Electronically Signed: Johnson Verma, at 11:27 EDT , Service support ,
[2018-08-12 11:46] LABS: Bedside Glucose 108 mg/dL (70-110)
[2018-08-12 11:48] LABS: Erythrocyte Sedimentation Rate 11 mm/hr (0-20)
--- NOTE | 2018-08-12 14:48 | PCM.PN.NEU ---
Patient Problems: Active and Suspected Problems (Last Updated 08/11/18 @ 12:59 by Maggie Jacobson, POWER PLANT TECHNICIAN-C) Pressure ulcer of coccygeal region, stage 2 (Acute) Subjective: Per nursing Dr. Batista office returned call back d/t patient was questioning dose of toprol and low heart rate at previous hospital. Per recommendation toprol dose decreased to 12.5mg bid. Patient c/o of severe headache to left temporal area and left frontal area. Per patient it is a constant throbbing pain and states it is worst now then after fall. CT of brain ordered showed Improvement in the subdural hematoma involving the interhemispheric fissure. Persistent scalp hematoma overlying the posterior aspect of the right parietal occipital bones, which is a improvement from previous study. Sed rate 11. Discussed scheduling tylenol routine instead of prn and agreeable. - Physical Exam General: Alert, Oriented x3, Cooperative HEENT: Atraumatic, PERRLA Oral: Moist Mucosa, - - thrush Neck: Supple, No JVD Lungs: Clear to auscultation, Normal air movement Cardiovascular: Regular rate, Regular Rhythm Abdomen: Bowel Sounds Present, Soft, Non Tender, Obese Extremities: No clubbing, No cyanosis, No edema Musculoskeletal: No Tenderness to Palpation of Joints or Extremities Neurological: Cranial nerves II-XII grossly intact, Deep Tendon Reflexes 2+/4 and Symmetrical, Neuro grossly intact, Motor Exam 5/5 strength throughout, - - NIHSS 0 Psych/Mental Status: Normal Affect, Appropriate, Alert and oriented to time, place, person, mood and affect Vital Signs Temp Pulse Resp BP Pulse Ox 98.7 F 51 L 18 145/63 H 94 08/12/18 07:13 08/12/18 10:00 08/12/18 07:13 08/12/18 09:26 08/12/18 07:13 Oxygen Delivery Method Room Air Weight: 121.6 kg Body Mass Index (BMI) 42.0 Orthostatic Vital Signs Start: 08/11/18 06:12 Freq: q24h Status: Active Protocol: Activity Type Activity Date Activity User E-Sign Co-Sign Detail Recorded Client Recorded Date Recorded By Document 08/12/18 06:12 CAK [id number] 08/12/18 06:38 CAK 08/12/18 06:12 Orthostatic Vitals Standing -Blood Pressure (90/60-120/80) 83/55 L -Extremity Use Right Arm -Pulse Rate (60-100) 54 L Sitting -Blood Pressure (90/60-120/80) 120/67 -Extremity Use Right Arm -Pulse Rate (60-100) 50 L Lying -Blood Pressure (90/60-120/80) 145/63 H -Extremity Use Right Arm -Pulse Rate (60-100) 50 L Intake and Output for Last 24 Hours 08/10/18 08/11/18 08/12/18 23:59 23:59 23:59 Intake Total 720 / 720 420 / 420 Output Total 250 / 250 Balance 720 / 720 170 / 170 Laboratory Tests Past 24 Hrs 08/12/18 08/12/18 05:25 05:25 ESR 11 Sodium 143 Potassium 3.4 L Chloride 104 Carbon Dioxide 31.0 Anion Gap 8 BUN 13 Creatinine 1.00 Estim Creat Clear Calc 76.20 Est GFR (MDRD) Af Amer 99 Est GFR (MDRD) Non-Af 82 BUN/Creatinine Ratio 13.1 Glucose 88 Calcium 8.7 POC Glucose 08/12/18 08/12/18 08/11/18 11:39 06:42 20:26 POC Glucose 108 99 166 H 08/11/18 16:41 POC Glucose 117 H Medical Necessity - Tobacco Use Smoking Status: Never smoker Assessment/Plan All Active Problems (Last Updated 08/11/18 @ 12:59 by Maggie Jacobson, POWER PLANT TECHNICIAN-C) Pressure ulcer of coccygeal region, stage 2 (Acute) Dyspnea on exertion (Acute) Constipation (Acute) Preop cardiovascular exam (Acute) The patient is a 57 year old M with PMH Diabetes, HTN, MARKY, HLD, CAD with cardiac stent, Depression, Anxiety, Gastric bypass surgery January 2018 admitted to [facility] on 08/10/2018 for debility secondary to posterior occipital skull fracture with subdural intracranial bleed, for greater of 3 hours of therapy daily with a goal of returning back home at or near her prior level of functional dependence. Patient presented to [facility] ER on 08/02/2018 due to patient was standing on a chair changing a lightbulb and loss balance and fell onto the floor with LOC. Patient had scalp laceration and CT scan of brain showed mild subdural hematoma 5 mm along the interhemispheric fissure and possible non-displaced nondepressed fracture of the left side of occipital bone. CT of spine showed normal unenhanced examination of cervical spine. Patient was transferred to [facility]. Neurosurgery was consulted and no acute surgical intervention was needed at that time. Patient c/o left shoulder pain post fall. Dr. Ayala, orthopedic surgeon was consulted. X-ray to right shoulder showed no fractures or dislocations. On 08/04/2018 repeat CTH stable. Per Dr. Marinelli Neurosurgeon ASA on hold and will need resolution of hemorrhage prior to anticoagulation therapy. A repeat CTH was done on 08/10/2018 before discharge; acute/subacute left-sided supratentorial subdural hematoma with only mild associated mass effect without rebleeding. Post fall, patient developed vertigo, nausea, headaches. Vertigo and nausea resolved. Patient lives with spouse in a duplex, was independent with all mobility, transfers and driving and only needed assistance to put on shoes and socks prior to hospital admission. Plan - PT for mobility - OT for ADLs - ST for evaluation - Analgesics as needed - Posterior occipital skull fracture with subdural intracranial bleed no anti-coagulation until resolution of hemorrhage, Hold ASA O.K for DVT prophylaxis Lovenox per neurosurgeon. On 08/12/18 CT of brain without contrast showed Improvement in the subdural hematoma involving the interhemispheric fissure. Persistent scalp hematoma overlying the posterior aspect of the right parietal occipital bones, which is a improvement from previous study. - Diabetes Accuchecks AC&HS, on Tradjenta On 03/13/2018 HgbA1c 7.5 % recheck level on 08/11/2018 6.3% - HTN on Lopressor and Cozaar - HLD on Lipitor - MARKY on CPAP - CAD with cardiac stent on Lopressor, Cozaar, Lasix and Lipitor - Anxiety on Visteral pamoate - Depression on Celexa - GERD on Protonix - Insomnia on melatonin - Hypokalemia on K-Dur On 08/12/18 K+ level 3.4 K-dur 40 meq recheck K+ on 08/14/18 - Hypothyroidism on Synthroid - Vertigo on Antivert PRN - Morbid obesity BMI 42.0 - Occipital laceration discontinue sutures on 08/13/2018 - Thrush on nystatin - Abdominal fold excoriated on nystatin powder - Stage II pressure ulcer on coccyx present on admission- Calmoseptine and Wound consult - GI/DVT prophylaxis Protonix/Lovenox SQ, knee high richard hose - Fall precautions - Bowel protocol - Medical management per hospitalist- consult - F/U with PCP, neurosurgeon, mobile solutions architect
--- NOTE | 2018-08-12 14:53 | PN.NEURO_ITS ---
Patient Problems: Active and Suspected Problems (Last Updated 08/11/18 @ 12:59 by Maggei Jacobson, UX ENGINEER-C) Pressure ulcer of coccygeal region, stage 2 (Acute) Subjective: Per nursing Dr. Batisat office returned call back d/t patient was questioning dose of toprol and low heart rate at previous hospital. Per recommendation toprol dose decreased to 12.5mg bid. Patient c/o of severe headache to left temporal area and left frontal area. Per patient it is a constant throbbing pain and states it is worst now then after fall. CT of brain ordered showed Improvement in the subdural hematoma involving the interhemispheric fissure. Persistent scalp hematoma overlying the posterior aspect of the right parietal occipital bones, which is a improvement from previous study. Sed rate 11. Discussed scheduling tylenol routine instead of prn and agreeable. - Physical Exam General: Alert, Oriented x3, Cooperative HEENT: Atraumatic, PERRLA Oral: Moist Mucosa, - - thrush Neck: Supple, No JVD Lungs: Clear to auscultation, Normal air movement Cardiovascular: Regular rate, Regular Rhythm Abdomen: Bowel Sounds Present, Soft, Non Tender, Obese Extremities: No clubbing, No cyanosis, No edema Musculoskeletal: No Tenderness to Palpation of Joints or Extremities Neurological: Cranial nerves II-XII grossly intact, Deep Tendon Reflexes 2+/4 and Symmetrical, Neuro grossly intact, Motor Exam 5/5 strength throughout, - - NIHSS 0 Psych/Mental Status: Normal Affect, Appropriate, Alert and oriented to time, place, person, mood and affect Vital Signs Temp Pulse Resp BP Pulse Ox 98.7 F 51 L 18 145/63 H 94 08/12/18 07:13 08/12/18 10:00 08/12/18 07:13 08/12/18 09:26 08/12/18 07:13 Oxygen Delivery Method Room Air Weight: 121.6 kg Body Mass Index (BMI) 42.0 Orthostatic Vital Signs Start: 08/11/18 06:12 Freq: q24h Status: Active Protocol: Activity Type Activity Date Activity User E-Sign Co-Sign Detail Recorded Client Recorded Date Recorded By Document 08/12/18 06:12 CAK [id number] 08/12/18 06:38 CAK 08/12/18 06:12 Orthostatic Vitals Standing -Blood Pressure (90/60-120/80) 83/55 L -Extremity Use Right Arm -Pulse Rate (60-100) 54 L Sitting -Blood Pressure (90/60-120/80) 120/67 -Extremity Use Right Arm -Pulse Rate (60-100) 50 L Lying -Blood Pressure (90/60-120/80) 145/63 H -Extremity Use Right Arm -Pulse Rate (60-100) 50 L Intake and Output for Last 24 Hours 08/10/18 08/11/18 08/12/18 23:59 23:59 23:59 Intake Total 720 / 720 420 / 420 Output Total 250 / 250 Balance 720 / 720 170 / 170 Laboratory Tests Past 24 Hrs 08/12/18 08/12/18 05:25 05:25 ESR 11 Sodium 143 Potassium 3.4 L Chloride 104 Carbon Dioxide 31.0 Anion Gap 8 BUN 13 Creatinine 1.00 Estim Creat Clear Calc 76.20 Est GFR (MDRD) Af Amer 99 Est GFR (MDRD) Non-Af 82 BUN/Creatinine Ratio 13.1 Glucose 88 Calcium 8.7 POC Glucose 08/12/18 08/12/18 08/11/18 11:39 06:42 20:26 POC Glucose 108 99 166 H 08/11/18 16:41 POC Glucose 117 H Medical Necessity - Tobacco Use Smoking Status: Never smoker Assessment/Plan All Active Problems (Last Updated 08/11/18 @ 12:59 by Maggie Jacobson, UX ENGINEER-C) Pressure ulcer of coccygeal region, stage 2 (Acute) Dyspnea on exertion (Acute) Constipation (Acute) Preop cardiovascular exam (Acute) The patient is a 57 year old M with PMH Diabetes, HTN, MARKY, HLD, CAD with cardiac stent, Depression, Anxiety, Gastric bypass surgery January 2018 admitted to [facility] on 08/10/2018 for debility secondary to posterior occipital skull fracture with subdural intracranial bleed, for greater of 3 hours of therapy daily with a goal of returning back home at or near her prior level of functional dependence. Patient presented to [facility] ER on 08/02/2018 due to patient was standing on a chair changing a lightbulb and loss balance and fell onto the floor with LOC. Patient had scalp laceration and CT scan of brain showed mild subdural hematoma 5 mm along the interhemispheric fissure and possible non-displaced nondepressed fracture of the left side of occipital bone. CT of spine showed normal unenhanced examination of cervical spine. Patient was transferred to [facility]. Neurosurgery was consulted and no acute surgical intervention was needed at that time. Patient c/o left shoulder pain post fall. Dr. Ayala, orthopedic surgeon was consulted. X-ray to right shoulder showed no fractures or dislocations. On 08/04/2018 repeat CTH stable. Per Dr. Marinelli Neurosurgeon ASA on hold and will need resolution of hemorrhage prior to anticoagulation therapy. A repeat CTH was done on 08/10/2018 before discharge; acute/subacute left-sided supratentorial subdural hematoma with only mild associated mass effect without rebleeding. Post fall, patient developed vertigo, nausea, headaches. Vertigo and nausea resolved. Patient lives with spouse in a duplex, was independent with all mobility, transfers and driving and only needed assistance to put on shoes and socks prior to hospital admission. Plan - PT for mobility - OT for ADLs - ST for evaluation - Analgesics as needed - Posterior occipital skull fracture with subdural intracranial bleed no anti-coagulation until resolution of hemorrhage, Hold ASA O.K for DVT prophylaxis Lovenox per neurosurgeon. On 08/12/18 CT of brain without contrast showed Improvement in the subdural hematoma involving the interhemispheric fissure. Persistent scalp hematoma overlying the posterior aspect of the right parietal occipital bones, which is a improvement from previous study. - Diabetes Accuchecks AC&HS, on Tradjenta On 03/13/2018 HgbA1c 7.5 % recheck level on 08/11/2018 6.3% - HTN on Lopressor and Cozaar - HLD on Lipitor - MARKY on CPAP - CAD with cardiac stent on Lopressor, Cozaar, Lasix and Lipitor - Anxiety on Visteral pamoate - Depression on Celexa - GERD on Protonix - Insomnia on melatonin - Hypokalemia on K-Dur On 08/12/18 K+ level 3.4 K-dur 40 meq recheck K+ on 08/14/18 - Hypothyroidism on Synthroid - Vertigo on Antivert PRN - Morbid obesity BMI 42.0 - Occipital laceration discontinue sutures on 08/13/2018 - Thrush on nystatin - Abdominal fold excoriated on nystatin powder - Stage II pressure ulcer on coccyx present on admission- Calmoseptine and Wound consult - GI/DVT prophylaxis Protonix/Lovenox SQ, knee high richard hose - Fall precautions - Bowel protocol - Medical management per hospitalist- consult - F/U with PCP, neurosurgeon, clinic office assistant
[2018-08-12 16:46] LABS: Bedside Glucose 116 mg/dL (70-110)
[2018-08-12] MEDS: MELATONIN 3 MG TABLET 6 MG PO (20:25)
[2018-08-12] MEDS: Atorvastatin Calcium 80 MG Tablet PO (20:26)
[2018-08-13] VITALS (8 sets, daily range): BP systolic 92–153; BP diastolic 53–76; PULSE 47–62; RESP 16–18; TEMP 36.6–36.7; O2SAT 95–96
[2018-08-13] MEDS: Levothyroxine 100 MCG Tablet PO (05:16)
[2018-08-13] MEDS: Acetaminophen 500 MG Tablet 1000 MG PO ×3 (05:16→20:17)
[2018-08-13] MEDS: Meclizine HCl 25 MG Tablet PO ×3 (05:16→23:08)
[2018-08-13] MEDS: Menthol/Lanolin/Calamine/Znox 113 GM Tube 1 APPLIC TOPICAL ×2 (05:17→20:19)
[2018-08-13] MEDS: Enoxaparin 40 MG/0.4 ML Syringe SC (05:17)
[2018-08-13] MEDS: oxyCODONE 5 MG Tablet PO ×3 (08:15→23:07)
--- NOTE | 2018-08-13 09:19 | PCM.PN.NEU ---
Patient Problems: Active and Suspected Problems (Last Updated 08/11/18 @ 12:59 by Maggie Jacobson, PRODUCT TEST ENGINEER-C) Pressure ulcer of coccygeal region, stage 2 (Acute) Subjective: Team meeting held today. Per PT light hand with transfers and ambulation with walker d/t dizziness at times. Per OT min assist with lower body bathing and dressing. Per ST needs assist with attention, self monitoring, regulation of performance executive function and with memory strategies. Discussed positive orthostatics and states feels lightheadedness with standing. Encouraged fluid intake, will give 1 liter of NS and discussed techniques and slow positional changes. Will re-team next week. - Physical Exam General: Alert, Oriented x3, Cooperative HEENT: Atraumatic, PERRLA Oral: Moist Mucosa Neck: Supple, No JVD Lungs: Clear to auscultation, Normal air movement Cardiovascular: Regular rate, Regular Rhythm Abdomen: Bowel Sounds Present, Soft, Non Tender Extremities: No clubbing, No cyanosis, No edema Skin: Incision - sutures was d/c today to occipital area, without redness or drng, Excoriated - under abd fold Musculoskeletal: No Tenderness to Palpation of Joints or Extremities Neurological: Cranial nerves II-XII grossly intact, Deep Tendon Reflexes 2+/4 and Symmetrical, Neuro grossly intact, Motor Exam 5/5 strength throughout Psych/Mental Status: Normal Affect, Appropriate, Alert and oriented to time, place, person, mood and affect Vital Signs Temp Pulse Resp BP Pulse Ox 98.0 F 56 L 16 116/59 L 95 08/13/18 07:00 08/13/18 08:22 08/13/18 07:00 08/13/18 07:00 08/13/18 07:00 Oxygen Delivery Method Room Air Weight: 121.6 kg Body Mass Index (BMI) 42.0 Orthostatic Vital Signs Start: 08/11/18 06:12 Freq: q24h Status: Active Protocol: Activity Type Activity Date Activity User E-Sign Co-Sign Detail Recorded Client Recorded Date Recorded By Document 08/13/18 06:00 [facility] [place] [id number] 08/13/18 06:36 FLW 08/13/18 06:00 Orthostatic Vitals Standing -Blood Pressure (90/60-120/80) 92/53 L -Extremity Use Left Arm -Pulse Rate (60-100) 62 Sitting -Blood Pressure (90/60-120/80) 120/70 -Extremity Use Left Arm -Pulse Rate (60-100) 59 L Lying -Blood Pressure (90/60-120/80) 153/76 H -Extremity Use Left Arm -Pulse Rate (60-100) 50 L Intake and Output for Last 24 Hours 08/11/18 08/12/18 08/13/18 23:59 23:59 23:59 Intake Total 420 / 420 360 / 360 Output Total 250 / 250 Balance 170 / 170 360 / 360 Laboratory Tests Past 24 Hrs 08/12/18 05:25 ESR 11 POC Glucose 08/12/18 08/12/18 16:40 11:39 POC Glucose 116 H 108 Medical Necessity - Tobacco Use Smoking Status: Never smoker Assessment/Plan All Active Problems (Last Updated 08/11/18 @ 12:59 by Maggie Jacobson, PRODUCT TEST ENGINEER-C) Pressure ulcer of coccygeal region, stage 2 (Acute) Dyspnea on exertion (Acute) Constipation (Acute) Preop cardiovascular exam (Acute) The patient is a 57 year old M with PMH Diabetes, HTN, MARKY, HLD, CAD with cardiac stent, Depression, Anxiety, Gastric bypass surgery January 2018 admitted to [facility] on 08/10/2018 for debility secondary to posterior occipital skull fracture with subdural intracranial bleed, for greater of 3 hours of therapy daily with a goal of returning back home at or near her prior level of functional dependence. Patient presented to [facility] ER on 08/02/2018 due to patient was standing on a chair changing a lightbulb and loss balance and fell onto the floor with LOC. Patient had scalp laceration and CT scan of brain showed mild subdural hematoma 5 mm along the interhemispheric fissure and possible non-displaced nondepressed fracture of the left side of occipital bone. CT of spine showed normal unenhanced examination of cervical spine. Patient was transferred to [facility]. Neurosurgery was consulted and no acute surgical intervention was needed at that time. Patient c/o left shoulder pain post fall. Dr. Ayala, orthopedic surgeon was consulted. X-ray to right shoulder showed no fractures or dislocations. On 08/04/2018 repeat CTH stable. Per Dr. Marinelli Neurosurgeon ASA on hold and will need resolution of hemorrhage prior to anticoagulation therapy. A repeat CTH was done on 08/10/2018 before discharge; acute/subacute left-sided supratentorial subdural hematoma with only mild associated mass effect without rebleeding. Post fall, patient developed vertigo, nausea, headaches. Vertigo and nausea resolved. Patient lives with spouse in a duplex, was independent with all mobility, transfers and driving and only needed assistance to put on shoes and socks prior to hospital admission. Plan - PT for mobility - OT for ADLs - ST for evaluation - Analgesics as needed - Posterior occipital skull fracture with subdural intracranial bleed no anti-coagulation until resolution of hemorrhage, Hold ASA O.K for DVT prophylaxis Lovenox per neurosurgeon. On 08/12/18 CT of brain without contrast showed Improvement in the subdural hematoma involving the interhemispheric fissure. Persistent scalp hematoma overlying the posterior aspect of the right parietal occipital bones, which is a improvement from previous study. - Diabetes Accuchecks AC&HS, on Tradjenta On 03/13/2018 HgbA1c 7.5 % recheck level on 08/11/2018 6.3% - HTN on Lopressor and Cozaar - HLD on Lipitor - MARKY on CPAP - CAD with cardiac stent on Lopressor, Cozaar, Lasix and Lipitor - Anxiety on Visteral pamoate - Depression on Celexa - GERD on Protonix - Insomnia on melatonin - Hypokalemia on K-Dur On 08/12/18 K+ level 3.4 K-dur 40 meq recheck K+ on 08/14/18 - Hypothyroidism on Synthroid - Vertigo on Antivert PRN - + ortho statics, lightheadedness NS 1 Liter x1, encouraged fluid intake and slow positional changes. - Morbid obesity BMI 42.0 - Occipital laceration sutures d/c on 08/13/2018 - Thrush resolved - Abdominal fold excoriated on nystatin powder - Stage II pressure ulcer on coccyx present on admission- Calmoseptine and Wound consult - GI/DVT prophylaxis Protonix/Lovenox SQ, knee high richard hose - Fall precautions - Bowel protocol - Medical management per hospitalist- consult - F/U with PCP, neurosurgeon, head of measurement & insights
--- NOTE | 2018-08-13 09:27 | PN.NEURO_ITS ---
Patient Problems: Active and Suspected Problems (Last Updated 08/11/18 @ 12:59 by Maggie Jacobson, TEMPERING MACHINE OPERATOR-C) Pressure ulcer of coccygeal region, stage 2 (Acute) Subjective: Team meeting held today. Per PT light hand with transfers and ambulation with walker d/t dizziness at times. Per OT min assist with lower body bathing and d ressing. Per ST needs assist with attention, self monitoring, regulation of performance executive function and with memory strategies. Discussed positive orthostatics and states feels lightheadedness with standing. Encouraged fluid intake, will give 1 liter of NS and discussed techniques and slow positional changes. Will re-team next week. - Physical Exam General: Alert, Oriented x3, Cooperative HEENT: Atraumatic, PERRLA Oral: Moist Mucosa Neck: Supple, No JVD Lungs: Clear to auscultation, Normal air movement Cardiovascular: Regular rate, Regular Rhythm Abdomen: Bowel Sounds Present, Soft, Non Tender Extremities: No clubbing, No cyanosis, No edema Skin: Incision - sutures was d/c today to occipital area, without redness or drng, Excoriated - under abd fold Musculoskeletal: No Tenderness to Palpation of Joints or Extremities Neurological: Cranial nerves II-XII grossly intact, Deep Tendon Reflexes 2+/4 and Symmetrical, Neuro grossly intact, Motor Exam 5/5 strength throughout Psych/Mental Status: Normal Affect, Appropriate, Alert and oriented to time, place, person, mood and affect Vital Signs Temp Pulse Resp BP Pulse Ox 98.0 F 56 L 16 116/59 L 95 08/13/18 07:00 08/13/18 08:22 08/13/18 07:00 08/13/18 07:00 08/13/18 07:00 Oxygen Delivery Method Room Air Weight: 121.6 kg Body Mass Index (BMI) 42.0 Orthostatic Vital Signs Start: 08/11/18 06:12 Freq: q24h Status: Active Protocol: Activity Type Activity Date Activity User E-Sign Co-Sign Detail Recorded Client Recorded Date Recorded By Document 08/13/18 06:00 [facility] [id number] 08/13/18 06:36 NYW 08/13/18 06:00 Orthostatic Vitals Standing -Blood Pressure (90/60-120/80) 92/53 L -Extremity Use Left Arm -Pulse Rate (60-100) 62 Sitting -Blood Pressure (90/60-120/80) 120/70 -Extremity Use Left Arm -Pulse Rate (60-100) 59 L Lying -Blood Pressure (90/60-120/80) 153/76 H -Extremity Use Left Arm -Pulse Rate (60-100) 50 L Intake and Output for Last 24 Hours 08/11/18 08/12/18 08/13/18 23:59 23:59 23:59 Intake Total 420 / 420 360 / 360 Output Total 250 / 250 Balance 170 / 170 360 / 360 Laboratory Tests Past 24 Hrs 08/12/18 05:25 ESR 11 POC Glucose 08/12/18 08/12/18 16:40 11:39 POC Glucose 116 H 108 Medical Necessity - Tobacco Use Smoking Status: Never smoker Assessment/Plan All Active Problems (Last Updated 08/11/18 @ 12:59 by Maggie Jacobson, TEMPERING MACHINE OPERATOR-C) Pressure ulcer of coccygeal region, stage 2 (Acute) Dyspnea on exertion (Acute) Constipation (Acute) Preop cardiovascular exam (Acute) The patient is a 57 year old M with PMH Diabetes, HTN, MRAKY, HLD, CAD with cardiac stent, Depression, Anxiety, Gastric bypass surgery January 2018 admitted to [facility] on 08/10/2018 for debility secondary to posterior occipital skull fracture with subdural intracranial bleed, for greater of 3 hours of therapy daily with a goal of returning back home at or near her prior level of functional dependence. Patient presented to [facility] ER on 08/02/2018 due to patient was standing on a chair changing a lightbulb and loss balance and fell onto the floor with LOC. Patient had scalp laceration and CT scan of brain showed mild subdural hematoma 5 mm along the interhemispheric fissure and possible non-displaced nondepressed fracture of the left side of occipital bone. CT of spine showed normal unenhanced examination of cervical spine. Patient was transferred to [facility]. Neurosurgery was consulted and no acute surgical intervention was needed at that time. Patient c/o left shoulder pain post fall. Dr. Ayala, orthopedic surgeon was consulted. X-ray to right shoulder showed no fractures or dislocations. On 08/04/2018 repeat CTH stable. Per Dr. Marinelli Neurosurgeon ASA on hold and will need resolution of hemorrhage prior to anticoagulation therapy. A repeat CTH was done on 08/10/2018 before discharge; acute/subacute left-sided supratentorial subdural hematoma with only mild associated mass effect without rebleeding. Post fall, patient developed vertigo, nausea, headaches. Vertigo and nausea r esolved. Patient lives with spouse in a duplex, was independent with all mobility, transfers and driving and only needed assistance to put on shoes and socks prior to hospital admission. Plan - PT for mobility - OT for ADLs - ST for evaluation - Analgesics as needed - Posterior occipital skull fracture with subdural intracranial bleed no anti-coagulation until resolution of hemorrhage, Hold ASA O.K for DVT prophylaxis Lovenox per neurosurgeon. On 08/12/18 CT of brain without contrast showed Improvement in the subdural hematoma involving the interhemispheric fissure. Persistent scalp hematoma overlying the posterior aspect of the right parietal occipital bones, which is a improvement from previous study. - Diabetes Accuchecks AC&HS, on Tradjenta On 03/13/2018 HgbA1c 7.5 % recheck level on 08/11/2018 6.3% - HTN on Lopressor and Cozaar - HLD on Lipitor - MARKY on CPAP - CAD with cardiac stent on Lopressor, Cozaar, Lasix and Lipitor - Anxiety on Visteral pamoate - Depression on Celexa - GERD on Protonix - Insomnia on melatonin - Hypokalemia on K-Dur On 08/12/18 K+ level 3.4 K-dur 40 meq recheck K+ on 08/14/18 - Hypothyroidism on Synthroid - Vertigo on Antivert PRN - + ortho statics, lightheadedness NS 1 Liter x1, encouraged fluid intake and slow positional changes. - Morbid obesity BMI 42.0 - Occipital laceration sutures d/c on 08/13/2018 - Thrush resolved - Abdominal fold excoriated on nystatin powder - Stage II pressure ulcer on coccyx present on admission- Calmoseptine and Wound consult - GI/DVT prophylaxis Protonix/Lovenox SQ, knee high richard hose - Fall precautions - Bowel protocol - Medical management per hospitalist- consult - F/U with PCP, neurosurgeon, advertising rep
--- NOTE | 2018-08-13 09:35 | PCM.RU.PYE ---
Admission Information Status Changes from Prescreening?: No changes Identified Actual Problem List:: Falls, Pain, ALteration in Cmfrt, Alteration in Nutrition, Mobility Impaired, Self Care Deficit, Diabetes, Hyperglycemia, BP, Hypotension, Ineffect.D/C Plan r/t Psy Potential Problem List:: DVT, Bleeding, Infection, UTI, Aspiration, Falls, Skin Integrity, Depression Risk of Complications DVT: LMWH, ERNESTO Hose, Sequential Compression Device Bleeding: Monitor Lab Values, Nursing to Teach Precautions for anti-coagulation therapy., Wound, if applicable, to be assessed every shift., Stroke patients assessed for lethargy or change in status. Infection: Clinical Staff to Monitor for S/S of infection:, S/S of infection include fever, redness, warmth, etc. Urinary Tract Infection: Monitor for frequency, burning, discomfort, or incontinence., Nursing will obtain urine sample for urinalysis and C&S when ordered. Aspiration: Clinical staff will monitor for coughing, drooling, congestion., Speech will evaluate swallowing and dsyphasia., Nursing will monitor patient swallowing during meals. Falls: Patient will be evaluated for Fall Precautions, Patient will be placed on Fall Precautions as indicated per protocol. Skin Breakdown: Nursing will assess skin daily using assessment tool., Nursing will place on Skin Breakdown Precautions as indicated. Pain: Clinical staff will assess patient's pain level per protocol., Medications will be given, if needed, and the pain level reassessed., Other methods: Massage, distraction, decrease stimulus, etc. used PRN. Plan of Care Patient requires physician specializing in physical medicine and rehab oversight to provide close medical supervision of rehab issues including: Pain Management, Sleep Problems, Bowel and Bladder, Medical and co-morbidity Management, DVT prophylaxis, Rehabilitation Leadership, Coordination of treatment team Patient needs Physical Therapy: For a minimum of 1 hour, At least 5 out of 7 days Patient needs Physical Therapy to improve:: Mobility, Mobility, Mobility, Strengthening, Transfers, Stretching, ROM, Endurance, Stairs, Gait, Balance Patient needs Occupational Therapy: For a minimum of 1 hour, At least 5 out of 7 days Patient needs Occupational Therapy to improve ADL's incl.: Eating, Grooming, Bathing, Dressing, Toileting, Toilet transfers, Community Reintegration, Higher functioning activities, Household tasks, Adaptive Equipment, Splinting, Other activities as determined Patient requires speech therapy: For a minimum of 1 hour, At least 5 out of 7 days Patient requires speech therapy for: Swallowing, Cognition, Language Skills, Compensatory Strategies Patient requires 24/ Rehabilitation Nursing for: Pain Issues, Identifying and preventing risk factors, Monitoring and reporting current medical conditions, Assisting with ambulation, transfer, and all ADL's, Teaching patients about disease process and medications, Family teaching, Providing safe environment, Bowel and Bladder Issues, Skin integrity, Medication Management Patient needs Slate Splitting Supervisor/ Case Management for: Discharge Planning, Arranging Home Equipment or Services, Family Interventions Patient needs Dietary and Nutrition Services for: Adequate Nutrition, Nutritional Supplements, Nutritional Education Goals Patient will remain: free from falls, or injury at time of discharge. Patient will perform bed mobility at: MOD I level of assist. Patient will complete transfers from bed to chair at: MOD I level of assist. Patient will ambulate: 100 feet, with MOD I assist, with LRD Patient will complete upper body dressing at: MOD I level of assist. Patient will complete lower body dressing at: MOD I level of assist. Patient will complete toileting at: MOD I level of assist. Patient will perform bathing at: MOD I level of assist. Patient will complete grooming at: MOD I level of assist. Patient will complete home management skills at: MOD I level of assist. Patient will achieve: 12 stairs, at MOD I assist Patient will have pain level of: of 3 or less Patient's skin will: remain intact, free from infection. Patient will receive: adequate nutrition. Discharge Planning Pt Prognosis for Sig. Practical Improv. w/in Reasonable Time: Good Anticipated D/C Destination: Home with Outpt Therapy Was Preadmission Assessment Accurate?: Yes
[2018-08-13] MEDS: Cyanocobalamin 500 MCG Tablet 1000 MCG PO (09:44)
[2018-08-13] MEDS: Calcium Carb/Vitamin D 1 TABLET Tablet PO ×2 (09:44→17:08)
[2018-08-13] MEDS: Citalopram 20 MG Tablet PO (09:44)
[2018-08-13] MEDS: Furosemide 40 MG Tablet PO ×2 (09:44→17:08)
[2018-08-13] MEDS: LINAGLIPTIN 5 MG TABLET PO (09:44)
[2018-08-13] MEDS: Pantoprazole Sodium 20 MG Tablet PO (09:44)
[2018-08-13] MEDS: Metoprolol Tartrate 25 MG Tablet 12.5 MG PO ×2 (09:45→20:24)
[2018-08-13] MEDS: Multivitamins,Therapeutic Tablet 1 TABLET PO (09:45)
[2018-08-13] MEDS: Losartan Potassium 50 MG Tablet PO (09:45)
[2018-08-13] MEDS: 0.9% Normal Saline 1,000 ML 100 ML IV (10:16)
--- NOTE | 2018-08-13 11:20 | NURSING ---
attempted iv start x2 without success after attempted by primary RN and telecommunicator supervisor. discussed with Upholstery Auto Trimmer and primary RN about getting a midline.
--- NOTE | 2018-08-13 11:42 | CASEMGMT ---
Team meeting held with pt and present. Pt is receiving PT/OT/ST and participating with therapies. Pt continues to need assist with lower body bathing/dressing and requires continued stay for strengthening and activity tolerance. No d/c date set at this time. Pt plans to return home with his who is at home and able to assist as needed. Pt and notified that insurance update is due 08/17 and continued stay is not guaranteed. Will continue with treatment plan at this time and reteam next week. LAURIE Bianchi
--- NOTE | 2018-08-13 14:03 | NURSING ---
Pt. c/o of dizziness, lightheaded, and FONSECA encouraged fluids, pt states, makes my stomach hurt because of bariatric surgery. New order for fluids, this RN was unable to access veins for IV, along with nurse supervisor color paste mixing, spoke to MARISOL Serrano order for midline.
[2018-08-13] MEDS: MELATONIN 3 MG TABLET 6 MG PO (20:17)
[2018-08-13] MEDS: Atorvastatin Calcium 80 MG Tablet PO (20:17)
[2018-08-14 06:00] VITALS: BP 106/68; BP 120/56; BP 95/49; PULSE 41; PULSE 48; PULSE 52
[2018-08-14] MEDS: Levothyroxine 100 MCG Tablet PO (06:05)
[2018-08-14] MEDS: Acetaminophen 500 MG Tablet 1000 MG PO ×3 (06:05→21:28)
[2018-08-14] MEDS: Menthol/Lanolin/Calamine/Znox 113 GM Tube 1 APPLIC TOPICAL ×2 (06:06→21:31)
[2018-08-14] MEDS: Enoxaparin 40 MG/0.4 ML Syringe SC (06:06)
[2018-08-14 06:58] LABS: Potassium 3.9 mmol/L (3.5-5.1)
[2018-08-14 08:00] VITALS: BP 120/56; PULSE 60; RESP 18; TEMP 36.6; O2SAT 95
[2018-08-14] MEDS: Calcium Carb/Vitamin D 1 TABLET Tablet PO ×2 (08:20→15:45)
[2018-08-14] MEDS: Pantoprazole Sodium 20 MG Tablet PO (08:20)
[2018-08-14] MEDS: Multivitamins,Therapeutic Tablet 1 TABLET PO (08:20)
--- NOTE | 2018-08-14 08:43 | PCM.PN.NEU ---
Patient Problems: Active and Suspected Problems (Last Updated 08/11/18 @ 12:59 by Maggie Jacobson, STAFF RESEARCH ASSOCIATE-C) Pressure ulcer of coccygeal region, stage 2 (Acute) Subjective: Hospitalist decreased lasix to 20 mg bid due to continuation of lower blood pressures. Patient tolerated NS through midline well. Discussed with patient and reeducated to sit up instead of laying in bed to help dizziness and also to increase strength. Per OT this am patient did not have dizziness with ADLs. Fluids encouraged. Patient verbalized understanding. - Physical Exam General: Alert, Oriented x3, Cooperative HEENT: Atraumatic, PERRLA Oral: Moist Mucosa Neck: Supple, No JVD Lungs: Clear to auscultation, Normal air movement Cardiovascular: Regular rate, Regular Rhythm Abdomen: Bowel Sounds Present, Soft, Non-Distended, Obese Extremities: No clubbing, No cyanosis, No edema Skin: Ulcer/ Wound - coccyx stage II healing, Excoriated - under abd fold, - - area healed to occipital area Musculoskeletal: No Tenderness to Palpation of Joints or Extremities Neurological: Cranial nerves II-XII grossly intact, Neuro grossly intact, Motor Exam 5/5 strength throughout Psych/Mental Status: Normal Affect, Appropriate, Alert and oriented to time, place, person, mood and affect Vital Signs Temp Pulse Resp BP Pulse Ox 97.8 F 41 L 18 120/56 L 95 08/14/18 08:00 08/14/18 08:00 08/14/18 08:00 08/14/18 08:00 08/14/18 08:00 Oxygen Delivery Method Room Air Weight: 121.6 kg Body Mass Index (BMI) 42.0 Orthostatic Vital Signs Start: 08/11/18 06:12 Freq: q24h Status: Active Protocol: Activity Type Activity Date Activity User E-Sign Co-Sign Detail Recorded Client Recorded Date Recorded By Document 08/14/18 06:00 [facility] [id number] 08/14/18 06:18 [facility] [place] 06:00 Orthostatic Vitals Standing -Blood Pressure (90/60-120/80) 95/49 L -Extremity Use Right Arm -Pulse Rate (60-100) 52 L Sitting -Blood Pressure (90/60-120/80) 106/68 -Extremity Use Right Arm -Pulse Rate (60-100) 48 L Lying -Blood Pressure (90/60-120/80) 120/56 L -Extremity Use Right Arm -Pulse Rate (60-100) 41 L Intake and Output for Last 24 Hours 08/12/18 08/13/18 08/14/18 23:59 23:59 23:59 Intake Total 1606 / 1606 240 / 240 Balance 1606 / 1606 240 / 240 Laboratory Tests Past 24 Hrs 08/14/18 06:25 Potassium 3.9 Medical Necessity - Tobacco Use Smoking Status: Never smoker Assessment/Plan All Active Problems (Last Updated 08/11/18 @ 12:59 by Maggie Jacobson, STAFF RESEARCH ASSOCIATE-C) Pressure ulcer of coccygeal region, stage 2 (Acute) Dyspnea on exertion (Acute) Constipation (Acute) Preop cardiovascular exam (Acute) The patient is a 57 year old M with PMH Diabetes, HTN, MARKY, HLD, CAD with cardiac stent, Depression, Anxiety, Gastric bypass surgery January 2018 admitted to [facility] on 08/10/2018 for debility secondary to posterior occipital skull fracture with subdural intracranial bleed, for greater of 3 hours of therapy daily with a goal of returning back home at or near her prior level of functional dependence. Patient presented to [facility] ER on 08/02/2018 due to patient was standing on a chair changing a lightbulb and loss balance and fell onto the floor with LOC. Patient had scalp laceration and CT scan of brain showed mild subdural hematoma 5 mm along the interhemispheric fissure and possible non-displaced nondepressed fracture of the left side of occipital bone. CT of spine showed normal unenhanced examination of cervical spine. Patient was transferred to [facility]. Neurosurgery was consulted and no acute surgical intervention was needed at that time. Patient c/o left shoulder pain post fall. Dr. Ayala, orthopedic surgeon was consulted. X-ray to right shoulder showed no fractures or dislocations. On 08/04/2018 repeat CTH stable. Per Dr. Marinelli Neurosurgeon ASA on hold and will need resolution of hemorrhage prior to anticoagulation therapy. A repeat CTH was done on 08/10/2018 before discharge; acute/subacute left-sided supratentorial subdural hematoma with only mild associated mass effect without rebleeding. Post fall, patient developed vertigo, nausea, headaches. Vertigo and nausea resolved. Patient lives with spouse in a duplex, was independent with all mobility, transfers and driving and only needed assistance to put on shoes and socks prior to hospital admission. Plan - PT for mobility - OT for ADLs - ST for evaluation - Analgesics as needed - Posterior occipital skull fracture with subdural intracranial bleed no anti-coagulation until resolution of hemorrhage, Hold ASA O.K for DVT prophylaxis Lovenox per neurosurgeon. On 08/12/18 CT of brain without contrast showed Improvement in the subdural hematoma involving the interhemispheric fissure. Persistent scalp hematoma overlying the posterior aspect of the right parietal occipital bones, which is a improvement from previous study. - Diabetes Accuchecks AC&HS, on Tradjenta On 03/13/2018 HgbA1c 7.5 % recheck level on 08/11/2018 6.3% - HTN on Lopressor and Cozaar - HLD on Lipitor - MARKY on CPAP - CAD with cardiac stent on Lopressor, Cozaar, Lasix and Lipitor - Anxiety on Visteral pamoate - Depression on Celexa - GERD on Protonix - Insomnia on melatonin - Hypokalemia on K-Dur On 08/14/18 K+ level 3.9 on K-dur - Hypothyroidism on Synthroid - Vertigo on Antivert PRN - + ortho statics, lightheadedness lasix decreased to 20 mg bid. NS 1 Liter x1, encouraged fluid intake, sitting up in chair and slow positional changes. Recheck BMP 08/17/18 - Morbid obesity BMI 42.0 - Occipital laceration - healed sutures d/c on 08/13/2018 - Thrush resolved - Abdominal fold excoriated on nystatin powder - Stage II pressure ulcer on coccyx present on admission- healing Calmoseptine and Wound consult - GI/DVT prophylaxis Protonix/Lovenox SQ, knee high richard hose - Fall precautions - Bowel protocol - Medical management per hospitalist- consult - F/U with PCP, neurosurgeon, intermission coordinator
--- NOTE | 2018-08-14 08:49 | PN.NEURO_ITS ---
Patient Problems: Active and Suspected Problems (Last Updated 08/11/18 @ 12:59 by Maggie Jacobson, DIRECTOR OF INTELLIGENCE-C) Pressure ulcer of coccygeal region, stage 2 (Acute) Subjective: Hospitalist decreased lasix to 20 mg bid due to continuation of lower blood pressures. Patient tolerated NS through midline well. Discussed with patient and reeducated to sit up instead of laying in bed to help dizziness and also to increase strength. Per OT this am patient did not have dizziness with ADLs. Fluids encouraged. Patient verbalized understanding. - Physical Exam General: Alert, Oriented x3, Cooperative HEENT: Atraumatic, PERRLA Oral: Moist Mucosa Neck: Supple, No JVD Lungs: Clear to auscultation, Normal air movement Cardiovascular: Regular rate, Regular Rhythm Abdomen: Bowel Sounds Present, Soft, Non-Distended, Obese Extremities: No clubbing, No cyanosis, No edema Skin: Ulcer/ Wound - coccyx stage II healing, Excoriated - under abd fold, - - area healed to occipital area Musculoskeletal: No Tenderness to Palpation of Joints or Extremities Neurological: Cranial nerves II-XII grossly intact, Neuro grossly intact, Motor Exam 5/5 strength throughout Psych/Mental Status: Normal Affect, Appropriate, Alert and oriented to time, place, person, mood and affect Vital Signs Temp Pulse Resp BP Pulse Ox 97.8 F 41 L 18 120/56 L 95 08/14/18 08:00 08/14/18 08:00 08/14/18 08:00 08/14/18 08:00 08/14/18 08:00 Oxygen Delivery Method Room Air Weight: 121.6 kg Body Mass Index (BMI) 42.0 Orthostatic Vital Signs Start: 08/11/18 06:12 Freq: q24h Status: Active Protocol: Activity Type Activity Date Activity User E-Sign Co-Sign Detail Recorded Client Recorded Date Recorded By Document 08/14/18 06:00 [facility] [place] [id number] 08/14/18 06:18 [facility] [place] 08/14/18 06:00 Orthostatic Vitals Standing -Blood Pressure (90/60-120/80) 95/49 L -Extremity Use Right Arm -Pulse Rate (60-100) 52 L Sitting -Blood Pressure (90/60-120/80) 106/68 -Extremity Use Right Arm -Pulse Rate (60-100) 48 L Lying -Blood Pressure (90/60-120/80) 120/56 L -Extremity Use Right Arm -Pulse Rate (60-100) 41 L Intake and Output for Last 24 Hours 08/12/18 08/13/18 08/14/18 23:59 23:59 23:59 Intake Total 1606 / 1606 240 / 240 Balance 1606 / 1606 240 / 240 Laboratory Tests Past 24 Hrs 08/14/18 06:25 Potassium 3.9 Medical Necessity - Tobacco Use Smoking Status: Never smoker Assessment/Plan All Active Problems (Last Updated 08/11/18 @ 12:59 by Maggie Jacobson, DIRECTOR OF INTELLIGENCE-C) Pressure ulcer of coccygeal region, stage 2 (Acute) Dyspnea on exertion (Acute) Constipation (Acute) Preop cardiovascular exam (Acute) The patient is a 57 year old M with PMH Diabetes, HTN, MARKY, HLD, CAD with cardiac stent, Depression, Anxiety, Gastric bypass surgery January 2018 admitted to [facility] on 08/10/2018 for debility secondary to posterior occipital skull fracture with subdural intracranial bleed, for greater of 3 hours of therapy daily with a goal of returning back home at or near her prior level of functional dependence. Patient presented to [facility] ER on 08/02/2018 due to patient was standing on a chair changing a lightbulb and loss balance and fell onto the floor with LOC. Patient had scalp laceration and CT scan of brain showed mild subdural hematoma 5 mm along the interhemispheric fissure and possible non-displaced nondepressed fracture of the left side of occipital bone. CT of spine showed normal unenhanced examination of cervical spine. Patient was transferred to [facility]. Neurosurgery was consulted and no acute surgical intervention was needed at that time. Patient c/o left shoulder pain post fall. Dr. Ayala, orthopedic surgeon was consulted. X-ray to right shoulder showed no fractures or dislocations. On 08/04/2018 repeat CTH stable. Per Dr. Marinelli Neurosurgeon ASA on hold and will need resolution of hemorrhage prior to anticoagulation therapy. A repeat CTH was done on 08/10/2018 before discharge; acute/subacute left-sided supratentorial subdural hematoma with only mild associated mass effect without rebleeding. Post fall, patient developed vertigo, nausea, headaches. Vertigo and nausea resolved. Patient lives with spouse in a duplex, was independent with all mobility, transfers and driving and only needed assistance to put on shoes and socks prior to hospital admission. Plan - PT for mobility - OT for ADLs - ST for evaluation - Analgesics as needed - Posterior occipital skull fracture with subdural intracranial bleed no anti-coagulation until resolution of hemorrhage, Hold ASA O.K for DVT prophylaxis Lovenox per neurosurgeon. On 08/12/18 CT of brain without contrast showed Improvement in the subdural hematoma involving the interhemispheric fissure. Persistent scalp hematoma overlying the posterior aspect of the right parietal occipital bones, which is a improvement from previous study. - Diabetes Accuchecks AC&HS, on Tradjenta On 03/13/2018 HgbA1c 7.5 % recheck level on 08/11/2018 6.3% - HTN on Lopressor and Cozaar - HLD on Lipitor - MARKY on CPAP - CAD with cardiac stent on Lopressor, Cozaar, Lasix and Lipitor - Anxiety on Visteral pamoate - Depression on Celexa - GERD on Protonix - Insomnia on melatonin - Hypokalemia on K-Dur On 08/14/18 K+ level 3.9 on K-dur - Hypothyroidism on Synthroid - Vertigo on Antivert PRN - + ortho statics, lightheadedness lasix decreased to 20 mg bid. NS 1 Liter x1, encouraged fluid intake, sitting up in chair and slow positional changes. Recheck BMP 08/17/18 - Morbid obesity BMI 42.0 - Occipital laceration - healed sutures d/c on 08/13/2018 - Thrush resolved - Abdominal fold excoriated on nystatin powder - Stage II pressure ulcer on coccyx present on admission- healing Calmoseptine and Wound consult - GI/DVT prophylaxis Protonix/Lovenox SQ, knee high richard hose - Fall precautions - Bowel protocol - Medical management per hospitalist- consult - F/U with PCP, neurosurgeon, admitting counselor
[2018-08-14] MEDS: Cyanocobalamin 500 MCG Tablet 1000 MCG PO (08:54)
[2018-08-14] MEDS: Losartan Potassium 50 MG Tablet PO (08:54)
[2018-08-14] MEDS: LINAGLIPTIN 5 MG TABLET PO (08:55)
[2018-08-14] MEDS: oxyCODONE 5 MG Tablet PO ×3 (09:11→22:00)
[2018-08-14 09:21] VITALS: PULSE 60
[2018-08-14] MEDS: Metoprolol Tartrate 25 MG Tablet 12.5 MG PO ×2 (09:21→21:29)
[2018-08-14] MEDS: Citalopram 20 MG Tablet PO (09:21)
[2018-08-14] MEDS: Furosemide 20 MG Tablet PO ×2 (09:21→15:45)
[2018-08-14] MEDS: 0.9% NaCl Midline IV Flush IV ×2 (18:37→22:04)
[2018-08-14 19:36] VITALS: BP 133/60; PULSE 56; RESP 16; TEMP 36.5; O2SAT 92
[2018-08-14 21:29] VITALS: BP 133/60; PULSE 56
[2018-08-14] MEDS: MELATONIN 3 MG TABLET 6 MG PO (21:29)
[2018-08-14] MEDS: Atorvastatin Calcium 80 MG Tablet PO (21:30)
[2018-08-15] VITALS (8 sets, daily range): BP systolic 71–109; BP diastolic 44–67; PULSE 44–59; RESP 12–16; TEMP 36.5–36.6; O2SAT 94–96
[2018-08-15] MEDS: Acetaminophen 500 MG Tablet 1000 MG PO ×3 (05:19→22:11)
[2018-08-15] MEDS: Enoxaparin 40 MG/0.4 ML Syringe SC (05:20)
[2018-08-15] MEDS: Levothyroxine 100 MCG Tablet PO (05:20)
[2018-08-15] MEDS: Menthol/Lanolin/Calamine/Znox 113 GM Tube 1 APPLIC TOPICAL ×2 (05:20→20:56)
[2018-08-15] MEDS: oxyCODONE 5 MG Tablet PO ×2 (09:52→21:21)
[2018-08-15] MEDS: Losartan Potassium 50 MG Tablet PO (10:46)
[2018-08-15] MEDS: Cyanocobalamin 500 MCG Tablet 1000 MCG PO (10:46)
[2018-08-15] MEDS: Metoprolol Tartrate 25 MG Tablet 12.5 MG PO ×2 (10:51→20:54)
[2018-08-15] MEDS: Calcium Carb/Vitamin D 1 TABLET Tablet PO ×2 (10:52→17:13)
[2018-08-15] MEDS: Multivitamins,Therapeutic Tablet 1 TABLET PO (10:52)
[2018-08-15] MEDS: Pantoprazole Sodium 20 MG Tablet PO (10:52)
[2018-08-15] MEDS: Furosemide 20 MG Tablet PO ×2 (10:52→17:13)
[2018-08-15] MEDS: Citalopram 20 MG Tablet PO (10:55)
[2018-08-15] MEDS: LINAGLIPTIN 5 MG TABLET PO (10:55)
[2018-08-15] MEDS: 0.9% NaCl Midline IV Flush IV (20:54)
[2018-08-15] MEDS: Atorvastatin Calcium 80 MG Tablet PO (20:55)
[2018-08-15] MEDS: MELATONIN 3 MG TABLET 6 MG PO (20:57)
[2018-08-16] MEDS: oxyCODONE 5 MG Tablet PO ×2 (03:40→18:49)
[2018-08-16] MEDS: Acetaminophen 500 MG Tablet 1000 MG PO ×3 (06:07→21:18)
[2018-08-16] MEDS: Levothyroxine 100 MCG Tablet PO (06:08)
[2018-08-16] MEDS: Menthol/Lanolin/Calamine/Znox 113 GM Tube 1 APPLIC TOPICAL ×2 (06:08→21:19)
[2018-08-16] MEDS: Enoxaparin 40 MG/0.4 ML Syringe SC (06:08)
[2018-08-16 07:00] VITALS: BP 185/55; PULSE 52; RESP 18; TEMP 36.4; O2SAT 96
[2018-08-16 07:09] VITALS: BP 101/62; BP 78/49; BP 83/49; PULSE 47; PULSE 56; PULSE 59
[2018-08-16 09:43] VITALS: PULSE 52
--- NOTE | 2018-08-16 10:32 | NURSING ---
Pt's fluid intake is very minimal. BP low while standing 78/49, hr 59. Pt dizzy with FONSECA while standing. Spoke to Dr. Shaver will start bag of fluids and hold Lasix, Cozaar and Lopressor AM dose only.
[2018-08-16 10:35] VITALS: BP 78/49; PULSE 59
[2018-08-16] MEDS: Multivitamins,Therapeutic Tablet 1 TABLET PO (10:50)
[2018-08-16] MEDS: Cyanocobalamin 500 MCG Tablet 1000 MCG PO (10:50)
[2018-08-16] MEDS: Calcium Carb/Vitamin D 1 TABLET Tablet PO ×2 (10:51→17:42)
[2018-08-16] MEDS: LINAGLIPTIN 5 MG TABLET PO (10:51)
[2018-08-16] MEDS: Citalopram 20 MG Tablet PO (10:51)
[2018-08-16] MEDS: Pantoprazole Sodium 20 MG Tablet PO (10:51)
[2018-08-16] MEDS: 0.9% Normal Saline 1,000 ML 150 ML IV (11:13)
[2018-08-16] MEDS: Senna/Docusate Sodium 1 Tablet 2 TABLET PO ×2 (11:14→21:18)
--- NOTE | 2018-08-16 11:23 | NURSING ---
Reeducated pt on the importance of drinking plenty of fluids per day. Stressed drinking fluids would help with dizziness, FONSECA, constipation and bp. Pt. claims he was never told this previously. Encouraged drinking 2 water pitchers of fluid per day. Pt verbalized understanding. At this time IV fluid infusing d/t low bp.
--- NOTE | 2018-08-16 12:30 | PCM.PN.HOSP ---
Patient Problems: Active and Suspected Problems (Last Updated 08/11/18 @ 12:59 by Maggie Jacobson, CUE WORKER-C) Pressure ulcer of coccygeal region, stage 2 (Acute) Subjective: Feels little bit dizzy today and his blood pressure was 78 systolic during his orthostatic testing where he went from 101 systolic down to 78. Yesterday morning he was 185. Vitals/I&O's: Vital Signs Temp Pulse Resp BP Pulse Ox 97.6 F L 59 L 18 78/49 L 96 08/16/18 07:00 08/16/18 10:35 08/16/18 07:00 08/16/18 10:35 08/16/18 07:00 Oxygen Delivery Method Room Air Weight: 268 lb 1.314 oz Body Mass Index (BMI) 42.0 Orthostatic Vital Signs Start: 08/11/18 06:12 Freq: Status: Active Protocol: Activity Type Activity Date Activity User E-Sign Co-Sign Detail Recorded Client Recorded Date Recorded By Document 08/16/18 07:09 [facility] [id number] 08/16/18 07:13 AMS 08/16/18 07:09 Orthostatic Vitals Standing -Blood Pressure (90/60-120/80) 78/49 L -Extremity Use Right Arm -Pulse Rate (60-100) 59 L Sitting -Blood Pressure (90/60-120/80) 83/49 L -Extremity Use Right Arm -Pulse Rate (60-100) 56 L Lying -Blood Pressure (90/60-120/80) 101/62 -Extremity Use Right Arm -Pulse Rate (60-100) 47 L Intake and Output for Last 24 Hours 08/14/18 08/15/18 08/16/18 23:59 23:59 23:59 Intake Total 720 / 720 1200 / 1200 Output Total 450 / 450 500 / 500 Balance 270 / 270 700 / 700 General: Alert, Oriented x3, Cooperative, No apparent distress HEENT: Atraumatic, PERRLA, EOMI, Normocephalic Oral: Moist Mucosa Neck: Supple, No JVD Lungs: Clear to auscultation, Normal air movement, No rhonchi, No wheeze, No rales Cardiovascular: Regular rate, Regular Rhythm, Normal S1, Normal S2, No murmurs Abdomen: Soft, Non Tender, Non-Distended, No Hepato-splenomegaly Extremities: No edema, Capillary Refill Less than 3 Seconds Skin: No rashes, No breakdown, Ulcer/ Wound - Scalp laceration healing well does not appear infected Neurological: Neuro grossly intact, Sensory exam intact to light touch and pain Psych/Mental Status: Normal Affect, Appropriate Current Medications Acetaminophen (Tylenol) 1,000 mg PO Q8 [facility] Last Admin: 08/16/18 06:07 Dose: 1,000 mg Atorvastatin Calcium (Lipitor) 80 mg PO QHS [facility] Last Admin: 08/15/18 20:55 Dose: 80 mg Bisacodyl (Dulcolax) 10 mg RECTAL .PRN X 1 PRN PRN Reason: Constipation Calamine/Phenol (Calmoseptine Ointment) 1 applic TOPICAL BID@0600,2200 [facility]; Protocol Last Admin: 08/16/18 06:08 Dose: 1 applicatio Cal[facility]itamin [facility] (Os[facility]Shane [facility]mg + D) [facility] Last Admin: 08/16/18 10:51 Dose: 1 tablet Citalopram Hydrobromide (Celexa) 20 mg PO DAILY [facility] Last Admin: 08/16/18 10:51 Dose: 20 mg Clotrimazole (Lotrimin) 1 applicatio TOPICAL BID [facility]; Protocol Last Admin: 08/16/18 10:53 Dose: Not Given Cyanocobalamin (Vitamin [facility]) [facility] Last Admin: 08/16/18 10:50 Dose: 1,000 mcg Enoxaparin Sodium (Lovenox) 40 mg SC DAILY@0600 [facility] Last Admin: 08/16/18 06:08 Dose: 40 mg Furosemide (Lasix) 20 mg PO BID@1000,1800 [facility] Last Admin: 08/16/18 10:35 Dose: Not Given Hydroxyzine Pamoate (Vistaril Pamoate Capsule) 25 mg PO DAILY PRN PRN Reason: ANXIETY Sodium Chloride () 1,000 mls @ 150 mls/hr IV .Q6H40M [facility] Stop: 08/16/18 17:14 Last Admin: 08/16/18 11:13 Dose: 150 mls/hr Levothyroxine Sodium (Synthroid) 100 mcg PO DAILY@0600 [facility] Last Admin: 08/16/18 06:08 Dose: 100 mcg Linagliptin (Tradjenta) 5 mg PO DAILY [facility] Last Admin: 08/16/18 10:51 Dose: 5 mg Losartan Potassium (Cozaar) 50 mg PO DAILY [facility] Last Admin: 08/16/18 10:34 Dose: Not Given Magnesium Hydroxide (Milk Of Magnesia) 30 ml PO .PRN X 1 PRN PRN Reason: Constipation Meclizine HCl (Antivert) 25 mg PO TID PRN PRN PRN Reason: DIZZINESS Last Admin: 08/13/18 23:08 Dose: 25 mg Melatonin (Melatonin) 6 mg PO QHS [facility] Last Admin: 08/15/18 20:57 Dose: 6 mg Menthol (Bengay Vanishing Scent) 1 applic TOPICAL TID PRN PRN Reason: PAIN Last Admin: 08/14/18 22:23 Dose: 1 applic Metoprolol Tartrate (Lopressor (Beta Freedom)) 12.5 mg PO BID [facility] Last Admin: 08/16/18 10:35 Dose: Not Given Multivitamins (Multivitamin) 1 tablet PO DAILY@0800 [facility] Last Admin: 08/16/18 10:50 Dose: 1 tablet Oxycodone HCl (Oxyir) 5 mg PO Q6H PRN PRN PRN Reason: PAIN Last Admin: 08/16/18 03:40 Dose: 5 mg Pantoprazole Sodium (Protonix) 20 mg PO DAILY [facility] Last Admin: 08/16/18 10:51 Dose: 20 mg Potassium Chloride (K-Dur) [facility] Last Admin: 08/16/18 10:50 Dose: 40 meq Senna/Docusate Sodium (Senokot-S, Ada-Colace) 2 tablet PO BID [facility] Last Admin: 08/16/18 11:14 Dose: 2 tablet Sodium Chloride () 10 - 20 ml IV UD PRN PRN Reason: Midline Flush Last Admin: 08/15/18 20:54 Dose: 10 ml Medical Necessity - Tobacco Use Smoking Status: Never smoker Assessment/Plan All Active Problems (Last Updated 08/11/18 @ 12:59 by Maggie Jacobson NP-C) Pressure ulcer of coccygeal region, stage 2 (Acute) Dyspnea on exertion (Acute) Constipation (Acute) Preop cardiovascular exam (Acute) 1. Subdural hematoma secondary to fall from a chair -Continue with inpatient rehab hold aspirin -Okay to receive prophylactic Lovenox for DVT prevention -Continue with PT/OT -Continue with oxycodone for pain -Meclizine for dizziness as needed 2. Hypertension/hyperlipidemia/CAD status post stent/dizziness with orthostatic hypotension -He had elevated blood pressures of 185 yesterday, and is currently hypotensive though sitting up and eating -We will hold his blood pressure medications just for today and give him 1 L fluid, and monitor -We will continue with his home medications of Crestor, losartan, metoprolol, and Lasix -Per request neurosurgery will hold off on an aspirin for now. His stent was placed in 2008, he will have to be restarted on antiplatelet at some point in the near future. 3. DM2 -Monitor blood sugars with Accu-Cheks, and providing appropriate diet -Continue with his home alogliptin 4. Hypothyroidism -Stable -Continue with Synthroid 5. GERD -Stable -Continue with PPI 6. Depression/anxiety -Stable -Continue with home Celexa DVT: Lovenox Code Visit Inpatient E&M: 72776 Subs Hosp L2
--- NOTE | 2018-08-16 12:33 | PN_ITS ---
Patient Problems: Active and Suspected Problems (Last Updated 08/11/18 @ 12:59 by Maggie Jacobson, STRATEGIC PARTNERSHIP SPECIALIST-C) Pressure ulcer of coccygeal region, stage 2 (Acute) Subjective: Feels little bit dizzy today and his blood pressure was 78 systolic during his orthostatic testing where he went from 101 systolic down to 78. Yesterday vijay doty he was 185. Vitals/I&O's: Vital Signs Temp Pulse Resp BP Pulse Ox 97.6 F L 59 L 18 78/49 L 96 08/16/18 07:00 08/16/18 10:35 08/16/18 07:00 08/16/18 10:35 08/16/18 07:00 Oxygen Delivery Method Room Air Weight: 268 lb 1.314 oz Body Mass Index (BMI) 42.0 Orthostatic Vital Signs Start: 08/11/18 06:12 Freq: Status: Active Protocol: Activity Type Activity Date Activity User E-Sign Co-Sign Detail Recorded Client Recorded Date Recorded By Document 08/16/18 07:09 AMS [id number] 08/16/18 07:13 AMS 08/16/18 07:09 Orthostatic Vitals Standing -Blood Pressure (90/60-120/80) 78/49 L -Extremity Use Right Arm -Pulse Rate (60-100) 59 L Sitting -Blood Pressure (90/60-120/80) 83/49 L -Extremity Use Right Arm -Pulse Rate (60-100) 56 L Lying -Blood Pressure (90/60-120/80) 101/62 -Extremity Use Right Arm -Pulse Rate (60-100) 47 L Intake and Output for Last 24 Hours 08/14/18 08/15/18 08/16/18 23:59 23:59 23:59 Intake Total 720 / 720 1200 / 1200 Output Total 450 / 450 500 / 500 Balance 270 / 270 700 / 700 General: Alert, Oriented x3, Cooperative, No apparent distress HEENT: Atraumatic, PERRLA, EOMI, Normocephalic Oral: Moist Mucosa Neck: Supple, No JVD Lungs: Clear to auscultation, Normal air movement, No rhonchi, No wheeze, No rales Cardiovascular: Regular rate, Regular Rhythm, Normal S1, Normal S2, No murmurs Abdomen: Soft, Non Tender, Non-Distended, No Hepato-splenomegaly Extremities: No edema, Capillary Refill Less than 3 Seconds Skin: No rashes, No breakdown, Ulcer/ Wound - Scalp laceration healing well does not appear infected Neurological: Neuro grossly intact, Sensory exam intact to light touch and pain Psych/Mental Status: Normal Affect, Appropriate Current Medications Acetaminophen (Tylenol) 1,000 mg PO Q8 [facility] Last Admin: 08/16/18 06:07 Dose: 1,000 mg Atorvastatin Calcium (Lipitor) 80 mg PO QHS [facility] Last Admin: 08/15/18 20:55 Dose: 80 mg Bisacodyl (Dulcolax) 10 mg RECTAL .PRN X 1 PRN PRN Reason: Constipation Calamine/Phenol (Calmoseptine Ointment) 1 applic TOPICAL BID@0600,2200 [facility]; Protocol Last Admin: 08/16/18 06:08 Dose: 1 applicatio Cal[facility]/Vitamin [facility] (Os[facility]Shane 500mg + D[facility] Last Admin: 08/16/18 10:51 Dose: 1 tablet Citalopram Hydrobromide (Celexa) 20 mg PO DAILY [facility] Last Admin: 08/16/18 10:51 Dose: 20 mg Clotrimazole (Lotrimin) 1 applicatio TOPICAL BID [facility]; Protocol Last Admin: 08/16/18 10:53 Dose: Not Given Cyanocobalamin ([facility]itamin [facility]) [facility] Last Admin: 08/16/18 10:50 Dose: 1,000 mcg Enoxaparin Sodium (Lovenox) 40 mg SC DAILY@0600 [facility] Last Admin: 08/16/18 06:08 Dose: 40 mg Furosemide (Lasix) 20 mg PO BID@1000,1800 [facility] Last Admin: 08/16/18 10:35 Dose: Not Given Hydroxyzine Pamoate (Vistaril Pamoate Capsule) 25 mg PO DAILY PRN PRN Reason: ANXIETY Sodium Chloride () 1,000 mls @ 150 mls/hr IV .Q6H40M [facility] Stop: 08/16/18 17:14 Last Admin: 08/16/18 11:13 Dose: 150 mls/hr Levothyroxine Sodium (Synthroid) 100 mcg PO DAILY@0600 [facility] Last Admin: 08/16/18 06:08 Dose: 100 mcg Linagliptin (Tradjenta) 5 mg PO DAILY [facility] Last Admin: 08/16/18 10:51 Dose: 5 mg Losartan Potassium (Cozaar) 50 mg PO DAILY [facility] Last Admin: 08/16/18 10:34 Dose: Not Given Magnesium Hydroxide (Milk Of Magnesia) 30 ml PO .PRN X 1 PRN PRN Reason: Constipation Meclizine HCl (Antivert) 25 mg PO TID PRN PRN PRN Reason: DIZZINESS Last Admin: 08/13/18 23:08 Dose: 25 mg Melatonin (Melatonin) 6 mg PO QHS [facility] Last Admin: 08/15/18 20:57 Dose: 6 mg Menthol (Bengay Vanishing Scent) 1 applic TOPICAL TID PRN PRN Reason: PAIN Last Admin: 08/14/18 22:23 Dose: 1 applic Metoprolol Tartrate (Lopressor (Beta Freedom)) 12.5 mg PO BID [facility] Last Admin: 08/16/18 10:35 Dose: Not Given Multivitamins (Multivitamin) 1 tablet PO DAILY@0800 [facility] Last Admin: 08/16/18 10:50 Dose: 1 tablet Oxycodone HCl (Oxyir) 5 mg PO Q6H PRN PRN PRN Reason: PAIN Last Admin: 08/16/18 03:40 Dose: 5 mg Pantoprazole Sodium (Protonix) 20 mg PO DAILY [facility] Last Admin: 08/16/18 10:51 Dose: 20 mg Potassium Ch[facility] ([facility]Dur) [facility] Last Admin: 08/16/18 10:50 Dose: 40 meq Senna/Docusate Sodium (Senokot-S, Ada-Colace) 2 tablet PO BID [facility] Last Admin: 08/16/18 11:14 Dose: 2 tablet Sodium Chloride () 10 - 20 ml IV UD PRN PRN Reason: Midline Flush Last Admin: 08/15/18 20:54 Dose: 10 ml Medical Necessity - Tobacco Use Smoking Status: Never smoker Assessment/Plan All Active Problems (Last Updated 08/11/18 @ 12:59 by Maggie Jacobson NP-C) Pressure ulcer of coccygeal region, stage 2 (Acute) Dyspnea on exertion (Acute) Constipation (Acute) Preop cardiovascular exam (Acute) 1. Subdural hematoma secondary to fall from a chair -Continue with inpatient rehab hold aspirin -Okay to receive prophylactic Lovenox for DVT prevention -Continue with PT/OT -Continue with oxycodone for pain -Meclizine for dizziness as needed 2. Hypertension/hyperlipidemia/CAD status post stent/dizziness with orthostatic hypotension -He had elevated blood pressures of 185 yesterday, and is currently hypotensive though sitting up and eating -We will hold his blood pressure medications just for today and give him 1 L fl uid, and monitor -We will continue with his home medications of Crestor, losartan, metoprolol, and Lasix -Per request neurosurgery will hold off on an aspirin for now. His stent was placed in 2008, he will have to be restarted on antiplatelet at some point in the near future. 3. DM2 -Monitor blood sugars with Accu-Cheks, and providing appropriate diet -Continue with his home alogliptin 4. Hypothyroidism -Stable -Continue with Synthroid 5. GERD -Stable -Continue with PPI 6. Depression/anxiety -Stable -Continue with home Celexa DVT: Lovenox Code Visit Inpatient E&M: 54429 Subs Hosp L2
[2018-08-16] MEDS: Furosemide 20 MG Tablet PO (17:42)
[2018-08-16 18:46] VITALS: BP 135/71; PULSE 55; RESP 14; TEMP 37.1; O2SAT 95
--- NOTE | 2018-08-16 21:13 | NURSING ---
Pt refused MOM this hs and advised of bowel protocol. Last BM 08/13. Pt reports passing gas. Will continue to monitor.
[2018-08-16 21:17] VITALS: PULSE 55
[2018-08-16] MEDS: Metoprolol Tartrate 25 MG Tablet 12.5 MG PO (21:17)
[2018-08-16] MEDS: MELATONIN 3 MG TABLET 6 MG PO (21:17)
[2018-08-16] MEDS: Atorvastatin Calcium 80 MG Tablet PO (21:18)
[2018-08-17] MEDS: Acetaminophen 500 MG Tablet 1000 MG PO ×3 (06:40→21:39)
[2018-08-17] MEDS: Levothyroxine 100 MCG Tablet PO (06:41)
[2018-08-17] MEDS: Menthol/Lanolin/Calamine/Znox 113 GM Tube 1 APPLIC TOPICAL ×2 (06:41→21:40)
[2018-08-17] MEDS: Enoxaparin 40 MG/0.4 ML Syringe SC (06:41)
[2018-08-17 06:47] VITALS: BP 104/47; PULSE 43; RESP 16; TEMP 36.6; O2SAT 97
[2018-08-17 07:16] LABS: Anion Gap 4 (5-15); BUN 14 mg/dL (7-18); BUN/Creat Ratio 15.7 RATIO (10-20); Calcium,Total 8.7 mg/dL (8.5-10.1); Chloride 107 mmol/L (98-107); Creatinine, Serum 0.89 mg/dL (0.70-1.30); EST Glomerular Filtration Rate 93 mL/min (>60); Est Glom Filt Rate - Afr Amer 113 mL/min (>60); Estimated Creatinine Clearance 85.62 ml/min; Glucose 103 mg/dL (74-106); Potassium 4.8 mmol/L (3.5-5.1); Sodium Level 140 mmol/L (136-145)
[2018-08-17 07:22] VITALS: BP 104/47; BP 109/64; BP 95/57; PULSE 43; PULSE 48; PULSE 54
[2018-08-17] MEDS: Senna/Docusate Sodium 1 Tablet 2 TABLET PO (07:41)
[2018-08-17] MEDS: Calcium Carb/Vitamin D 1 TABLET Tablet PO ×2 (07:41→17:56)
[2018-08-17] MEDS: Citalopram 20 MG Tablet PO (07:41)
[2018-08-17] MEDS: oxyCODONE 5 MG Tablet PO ×2 (07:45→17:56)
[2018-08-17] MEDS: Multivitamins,Therapeutic Tablet 1 TABLET PO (08:33)
[2018-08-17] MEDS: Losartan Potassium 50 MG Tablet PO (08:33)
[2018-08-17] MEDS: Cyanocobalamin 500 MCG Tablet 1000 MCG PO (08:33)
[2018-08-17 08:35] VITALS: PULSE 58
[2018-08-17] MEDS: Metoprolol Tartrate 25 MG Tablet 12.5 MG PO ×2 (08:35→21:40)
--- NOTE | 2018-08-17 10:16 | PCM.PN.NEU ---
Patient Problems: Active and Suspected Problems (Last Updated 08/11/18 @ 12:59 by Maggie Jacobson, ART OBJECTS REPAIRER-C) Pressure ulcer of coccygeal region, stage 2 (Acute) Subjective: Per nursing no issues overnight. Per patient dizziness is decreasing and is sitting up more over the weekend. He now states his headaches are intermittent, mild-moderate and throbbing to right temporal and frontal area. He is unable to wear his bi-pap due to his mask is not fitting correctly. [employer] his bipap supplier will be called by nursing d/t mask. Patient encouraged to increase fluid intake. Denies further questions or concerns. - Physical Exam General: Alert, Oriented x3, Cooperative HEENT: Atraumatic, PERRLA Oral: Moist Mucosa Neck: Supple, No JVD Lungs: Clear to auscultation, Normal air movement Cardiovascular: Regular rate, Regular Rhythm Abdomen: Bowel Sounds Present, Soft, Non Tender Extremities: No clubbing, No cyanosis, No edema Skin: Ulcer/ Wound - stage II pressure ulcer healing Neurological: Cranial nerves II-XII grossly intact, Deep Tendon Reflexes 2+/4 and Symmetrical, Neuro grossly intact, Motor Exam 5/5 strength throughout Psych/Mental Status: Normal Affect, Appropriate, Alert and oriented to time, place, person, mood and affect Vital Signs Temp Pulse Resp BP Pulse Ox 97.8 F 58 L 16 104/47 L 97 08/17/18 06:47 08/17/18 08:35 08/17/18 06:47 08/17/18 07:22 08/17/18 06:47 Oxygen Flow Rate (L/min) 2 Oxygen Delivery Method Nasal Cannula Weight: 121.6 kg Body Mass Index (BMI) 42.0 Orthostatic Vital Signs Start: 08/11/18 06:12 Freq: Status: Active Protocol: Activity Type Activity Date Activity User E-Sign Co-Sign Detail Recorded Client Recorded Date Recorded By Document 08/17/18 07:22 CHAPIN [id number] 08/17/18 07:24 CHAPIN 08/17/18 07:22 Orthostatic Vitals Standing -Blood Pressure (90/60-120/80) 95/57 L -Extremity Use Right Arm -Pulse Rate (60-100) 54 L Sitting -Blood Pressure (90/60-120/80) 109/64 -Extremity Use Right Arm -Pulse Rate (60-100) 48 L Lying -Blood Pressure (90/60-120/80) 104/47 L -Extremity Use Right Arm -Pulse Rate (60-100) 43 L Intake and Output for Last 24 Hours 08/15/18 08/16/18 08/17/18 23:59 23:59 23:59 Intake Total 1200 / 1200 100 / 100 360 / 360 Output Total 500 / 500 300 / 300 Balance 700 / 700 -200 / -200 360 / 360 Laboratory Tests Past 24 Hrs 08/17/18 06:13 Sodium 140 Potassium 4.8 Chloride 107 Carbon Dioxide 29.0 Anion Gap 4 L BUN 14 Creatinine 0.89 Estim Creat Clear Calc 85.62 Est GFR (MDRD) Af Amer 113 Est GFR (MDRD) Non-Af 93 BUN/Creatinine Ratio 15.7 Glucose 103 Calcium 8.7 Medical Necessity - Tobacco Use Smoking Status: Never smoker Assessment/Plan All Active Problems (Last Updated 08/11/18 @ 12:59 by Maggie Jacobson, ART OBJECTS REPAIRER-C) Pressure ulcer of coccygeal region, stage 2 (Acute) Dyspnea on exertion (Acute) Constipation (Acute) Preop cardiovascular exam (Acute) The patient is a 57 year old M with PMH Diabetes, HTN, MARKY, HLD, CAD with cardiac stent, Depression, Anxiety, Gastric bypass surgery January 2018 admitted to [facility] on 08/10/2018 for debility secondary to posterior occipital skull fracture with subdural intracranial bleed, for greater of 3 hours of therapy daily with a goal of returning back home at or near her prior level of functional dependence. Patient presented to [facility] ER on 08/02/2018 due to patient was standing on a chair changing a lightbulb and loss balance and fell onto the floor with LOC. Patient had scalp laceration and CT scan of brain showed mild subdural hematoma 5 mm along the interhemispheric fissure and possible non-displaced nondepressed fracture of the left side of occipital bone. CT of spine showed normal unenhanced examination of cervical spine. Patient was transferred to [facility]. Neurosurgery was consulted and no acute surgical intervention was needed at that time. Patient c/o left shoulder pain post fall. Dr. Ayala, orthopedic surgeon was consulted. X-ray to right shoulder showed no fractures or dislocations. On 08/04/2018 repeat CTH stable. Per Dr. Marinelli Neurosurgeon ASA on hold and will need resolution of hemorrhage prior to anticoagulation therapy. A repeat CTH was done on 08/10/2018 before discharge; acute/subacute left-sided supratentorial subdural hematoma with only mild associated mass effect without rebleeding. Post fall, patient developed vertigo, nausea, headaches. Vertigo and nausea resolved. Patient lives with spouse in a duplex, was independent with all mobility, transfers and driving and only needed assistance to put on shoes and socks prior to hospital admission. Plan - PT for mobility - OT for ADLs - ST for evaluation - Analgesics as needed - Posterior occipital skull fracture with subdural intracranial bleed no anti-coagulation until resolution of hemorrhage, Hold ASA O.K for DVT prophylaxis Lovenox per neurosurgeon. On 08/12/18 CT of brain without contrast showed Improvement in the subdural hematoma involving the interhemispheric fissure. Persistent scalp hematoma overlying the posterior aspect of the right parietal occipital bones, which is a improvement from previous study. - Diabetes Accuchecks AC&HS, on Tradjenta On 03/13/2018 HgbA1c 7.5 % recheck level on 08/11/2018 6.3% - HTN on Lopressor and Cozaar - HLD on Lipitor - MARKY on CPAP - CAD with cardiac stent on Lopressor, Cozaar, Lasix and Lipitor - Anxiety on Visteral pamoate - Depression on Celexa - GERD on Protonix - Insomnia on melatonin - Hypokalemia resolved On 08/17/18 K+ level 4.8 on K-dur - Hypothyroidism on Synthroid - Vertigo on Antivert PRN - + ortho statics, lightheadedness lasix decreased to 20 mg bid. Encouraged fluid intake, sitting up in chair and slow positional changes. - Morbid obesity BMI 42.0 - Occipital laceration - healed sutures d/c on 08/13/2018 - Thrush resolved - Abdominal fold excoriated on nystatin powder - Stage II pressure ulcer on coccyx present on admission- healing Calmoseptine and Wound consult - GI/DVT prophylaxis Protonix/Lovenox SQ, knee high richard hose - Fall precautions - Bowel protocol - Medical management per hospitalist- consult - F/U with PCP, neurosurgeon, usability architect
--- NOTE | 2018-08-17 10:21 | PN.NEURO_ITS ---
Patient Problems: Active and Suspected Problems (Last Updated 08/11/18 @ 12:59 by Maggie Jacobson, PRINTED CIRCUIT BOARD PANELS PLATER-C) Pressure ulcer of coccygeal region, stage 2 (Acute) Subjective: Per nursing no issues overnight. Per patient dizziness is decreasing and is sitting up more over the weekend. He now states his headaches are intermittent, mild-moderate and throbbing to right temporal and frontal area. He is unable to wear his bi-pap due to his mask is not fitting correctly. [employer] his bipap supplier will be called by nursing d/t mask. Patient encouraged to increase fluid intake. Denies further questions or concerns. - Physical Exam General: Alert, Oriented x3, Cooperative HEENT: Atraumatic, PERRLA Oral: Moist Mucosa Neck: Supple, No JVD Lungs: Clear to auscultation, Normal air movement Cardiovascular: Regular rate, Regular Rhythm Abdomen: Bowel Sounds Present, Soft, Non Tender Extremities: No clubbing, No cyanosis, No edema Skin: Ulcer/ Wound - stage II pressure ulcer healing Neurological: Cranial nerves II-XII grossly intact, Deep Tendon Reflexes 2+/4 and Symmetrical, Neuro grossly intact, Motor Exam 5/5 strength throughout Psych/Mental Status: Normal Affect, Appropriate, Alert and oriented to time, place, person, mood and affect Vital Signs Temp Pulse Resp BP Pulse Ox 97.8 F 58 L 16 104/47 L 97 08/17/18 06:47 08/17/18 08:35 08/17/18 06:47 08/17/18 07:22 08/17/18 06:47 Oxygen Flow Rate (L/min) 2 Oxygen Delivery Method Nasal Cannula Weight: 121.6 kg Body Mass Index (BMI) 42.0 Orthostatic Vital Signs Start: 08/11/18 06:12 Freq: Status: Active Protocol: Activity Type Activity Date Activity User E-Sign Co-Sign Detail Recorded Client Recorded Date Recorded By Document 08/17/18 07:22 CHAPIN [id number] 08/17/18 07:24 CHAPIN 08/17/18 07:22 Orthostatic Vitals Standing -Blood Pressure (90/60-120/80) 95/57 L -Extremity Use Right Arm -Pulse Rate (60-100) 54 L Sitting -Blood Pressure (90/60-120/80) 109/64 -Extremity Use Right Arm -Pulse Rate (60-100) 48 L Lying -Blood Pressure (90/60-120/80) 104/47 L -Extremity Use Right Arm -Pulse Rate (60-100) 43 L Intake and Output for Last 24 Hours 08/15/18 08/16/18 08/17/18 23:59 23:59 23:59 Intake Total 1200 / 1200 100 / 100 360 / 360 Output Total 500 / 500 300 / 300 Balance 700 / 700 -200 / -200 360 / 360 Laboratory Tests Past 24 Hrs 08/17/18 06:13 Sodium 140 Potassium 4.8 Chloride 107 Carbon Dioxide 29.0 Anion Gap 4 L BUN 14 Creatinine 0.89 Estim Creat Clear Calc 85.62 Est GFR (MDRD) Af Amer 113 Est GFR (MDRD) Non-Af 93 BUN/Creatinine Ratio 15.7 Glucose 103 Calcium 8.7 Medical Necessity - Tobacco Use Smoking Status: Never smoker Assessment/Plan All Active Problems (Last Updated 08/11/18 @ 12:59 by Maggie Jacobson, PRINTED CIRCUIT BOARD PANELS PLATER-C) Pressure ulcer of coccygeal region, stage 2 (Acute) Dyspnea on exertion (Acute) Constipation (Acute) Preop cardiovascular exam (Acute) The patient is a 57 year old M with PMH Diabetes, HTN, MARKY, HLD, CAD with cardiac stent, Depression, Anxiety, Gastric bypass surgery January 2018 admitted to [facility] on 08/10/2018 for debility secondary to posterior occipital skull fracture with subdural intracranial bleed, for greater of 3 hours of therapy daily with a goal of returning back home at or near her prior level of functional dependence. Patient presented to [facility] ER on 08/02/2018 due to patient was standing on a chair changing a lightbulb and loss balance and fell onto the floor with LOC. Patient had scalp laceration and CT scan of brain showed mild subdural hematoma 5 mm along the interhemispheric fissure and possible non-displaced nondepressed fracture of the left side of occipital bone. CT of spine showed normal unenhanced examination of cervical spine. Patient was transferred to [facility]. Neurosurgery was consulted and no acute surgical intervention was needed at that time. Patient c/o left shoulder pain post fall. Dr. Ayala, orthopedic surgeon was consulted. X-ray to right shoulder showed no fractures or dislocations. On 08/04/2018 repeat CTH stable. Per Dr. Marinelli Neurosurgeon ASA on hold and will need resolution of hemorrhage prior to anticoagulation therapy. A repeat CTH was done on 08/10/2018 before discharge; acute/subacute left-sided supratentorial subdural hematoma with only mild associated mass effect without rebleeding. Post fall, patient developed vertigo, nausea, headaches. Vertigo and nausea resolved. Patient lives with spouse in a duplex, was independent with all mobility, transfers and driving and only needed assistance to put on shoes and socks prior to hospital admission. Plan - PT for mobility - OT for ADLs - ST for evaluation - Analgesics as needed - Posterior occipital skull fracture with subdural intracranial bleed no ant i-coagulation until resolution of hemorrhage, Hold ASA O.K for DVT prophylaxis Lovenox per neurosurgeon. On 08/12/18 CT of brain without contrast showed Improvement in the subdural hematoma involving the interhemispheric fissure. Persistent scalp hematoma overlying the posterior aspect of the right parietal occipital bones, which is a improvement from previous study. - Diabetes Accuchecks AC&HS, on Tradjenta On 03/13/2018 HgbA1c 7.5 % recheck level on 08/11/2018 6.3% - HTN on Lopressor and Cozaar - HLD on Lipitor - MARKY on CPAP - CAD with cardiac stent on Lopressor, Cozaar, Lasix and Lipitor - Anxiety on Visteral pamoate - Depression on Celexa - GERD on Protonix - Insomnia on melatonin - Hypokalemia resolved On 08/17/18 K+ level 4.8 on K-dur - Hypothyroidism on Synthroid - Vertigo on Antivert PRN - + ortho statics, lightheadedness lasix decreased to 20 mg bid. Encouraged fluid intake, sitting up in chair and slow positional changes. - Morbid obesity BMI 42.0 - Occipital laceration - healed sutures d/c on 08/13/2018 - Thrush resolved - Abdominal fold excoriated on nystatin powder - Stage II pressure ulcer on coccyx present on admission- healing Calmoseptine and Wound consult - GI/DVT prophylaxis Protonix/Lovenox SQ, knee high richard hose - Fall precautions - Bowel protocol - Medical management per hospitalist- consult - F/U with PCP, neurosurgeon, director insurance
[2018-08-17] MEDS: Furosemide 20 MG Tablet PO ×2 (12:02→17:56)
[2018-08-17] MEDS: Pantoprazole Sodium 20 MG Tablet PO (12:02)
[2018-08-17] MEDS: LINAGLIPTIN 5 MG TABLET PO (12:04)
--- NOTE | 2018-08-17 12:06 | CASEMGMT ---
Insurance: Clinical update faxed to [facility]. Auth # [id number].
[2018-08-17] MEDS: 0.9% NaCl Midline IV Flush IV (12:53)
[2018-08-17 19:55] VITALS: BP 107/59; PULSE 66; RESP 20; TEMP 36.8; O2SAT 95
[2018-08-17] MEDS: MELATONIN 3 MG TABLET 6 MG PO (21:39)
[2018-08-17 21:40] VITALS: BP 109/64; PULSE 54
[2018-08-17] MEDS: Atorvastatin Calcium 40 MG Tablet PO (21:40)
[2018-08-17 21:45] VITALS: PULSE 54; RESP 20; O2SAT 95
--- NOTE | 2018-08-18 03:54 | NURSING ---
Reviewed and agree with [employer] documentation and [employer]IM[employer] charting.
[2018-08-18] MEDS: oxyCODONE 5 MG Tablet PO ×3 (04:27→21:56)
[2018-08-18] MEDS: Acetaminophen 500 MG Tablet 1000 MG PO ×3 (06:16→21:53)
[2018-08-18] MEDS: Menthol/Lanolin/Calamine/Znox 113 GM Tube 1 APPLIC TOPICAL ×2 (06:17→21:58)
[2018-08-18] MEDS: Enoxaparin 40 MG/0.4 ML Syringe SC (06:17)
[2018-08-18] MEDS: Levothyroxine 100 MCG Tablet PO (06:17)
[2018-08-18] MEDS: Multivitamins,Therapeutic Tablet 1 TABLET PO (07:35)
[2018-08-18] MEDS: Senna/Docusate Sodium 1 Tablet 2 TABLET PO (07:35)
[2018-08-18] MEDS: Calcium Carb/Vitamin D 1 TABLET Tablet PO ×2 (07:35→17:21)
[2018-08-18] MEDS: Cyanocobalamin 500 MCG Tablet 1000 MCG PO (07:57)
[2018-08-18] MEDS: Citalopram 20 MG Tablet PO (07:57)
[2018-08-18] MEDS: LINAGLIPTIN 5 MG TABLET PO (07:57)
[2018-08-18] MEDS: Pantoprazole Sodium 20 MG Tablet PO (07:57)
[2018-08-18 07:58] VITALS: PULSE 56
[2018-08-18] MEDS: Metoprolol Tartrate 25 MG Tablet 12.5 MG PO ×2 (07:58→21:57)
[2018-08-18 08:17] VITALS: BP 97/56; PULSE 56; RESP 16; TEMP 36.6; O2SAT 92
--- NOTE | 2018-08-18 14:54 | PCM.PN.NEU ---
Patient Problems: Active and Suspected Problems (Last Updated 08/11/18 @ 12:59 by Maggie Jacobson, PILER-C) Pressure ulcer of coccygeal region, stage 2 (Acute) Subjective: Per nursing no issues overnight. Lasix, potassium and cozaar discontinued yesterday by hospitalist after reviewing bp and HR. Patient states his dizziness is improving and headaches, mild headaches as dull and intermittent. Patient is trying to increase fluid intake and sitting up more in chair. Patient is tolerating therapies well. - Physical Exam General: Alert, Oriented x3, Cooperative HEENT: Atraumatic, PERRLA Oral: Moist Mucosa Neck: Supple, No JVD Lungs: Clear to auscultation, Normal air movement Cardiovascular: Regular rate, Regular Rhythm Abdomen: Bowel Sounds Present, Soft, Non-Distended, Obese Extremities: No clubbing, No cyanosis, No edema Skin: Ulcer/ Wound - Coccyx stage II healing Musculoskeletal: No Tenderness to Palpation of Joints or Extremities Neurological: Cranial nerves II-XII grossly intact, Deep Tendon Reflexes 2+/4 and Symmetrical, Neuro grossly intact, Motor Exam 5/5 strength throughout Psych/Mental Status: Normal Affect, Appropriate, Alert and oriented to time, place, person, mood and affect Vital Signs Temp Pulse Resp BP Pulse Ox 97.8 F 56 L 16 97/56 L 92 08/18/18 08:17 08/18/18 08:17 08/18/18 08:17 08/18/18 08:17 08/18/18 08:17 Oxygen Flow Rate (L/min) 2 Oxygen Delivery Method Room Air Weight: 121.6 kg Body Mass Index (BMI) 42.0 Orthostatic Vital Signs Start: 08/11/18 06:12 Freq: Status: Active Protocol: Activity Type Activity Date Activity User E-Sign Co-Sign Detail Recorded Client Recorded Date Recorded By Document 08/17/18 07:22 JOSEK [id number] 08/17/18 07:24 CHAPIN 08/17/18 07:22 Orthostatic Vitals Standing -Blood Pressure (90/60-120/80 mm Hg) 95/57 L -Extremity Use Right Arm -Pulse Rate (60-100 beats/min) 54 L Sitting -Blood Pressure (90/60-120/80 mm Hg) 109/64 -Extremity Use Right Arm -Pulse Rate (60-100 beats/min) 48 L Lying -Blood Pressure (90/60-120/80 mm Hg) 104/47 L -Extremity Use Right Arm -Pulse Rate (60-100 beats/min) 43 L Intake and Output for Last 24 Hours 08/16/18 08/17/18 08/18/18 23:59 23:59 23:59 Intake Total 100 / 100 1680 / 1680 Output Total 300 / 300 800 / 800 Balance -200 / -200 880 / 880 Medical Necessity - Tobacco Use Smoking Status: Never smoker Assessment/Plan All Active Problems (Last Updated 08/11/18 @ 12:59 by Maggie Jacobson, PILER-C) Pressure ulcer of coccygeal region, stage 2 (Acute) Dyspnea on exertion (Acute) Constipation (Acute) Preop cardiovascular exam (Acute) The patient is a 57 year old M with PMH Diabetes, HTN, MARKY, HLD, CAD with cardiac stent, Depression, Anxiety, Gastric bypass surgery January 2018 admitted to [facility] on 08/10/2018 for debility secondary to posterior occipital skull fracture with subdural intracranial bleed, for greater of 3 hours of therapy daily with a goal of returning back home at or near her prior level of functional dependence. Patient presented to [facility] ER on 08/02/2018 due to patient was standing on a chair changing a lightbulb and loss balance and fell onto the floor with LOC. Patient had scalp laceration and CT scan of brain showed mild subdural hematoma 5 mm along the interhemispheric fissure and possible non-displaced nondepressed fracture of the left side of occipital bone. CT of spine showed normal unenhanced examination of cervical spine. Patient was transferred to [facility]. Neurosurgery was consulted and no acute surgical intervention was needed at that time. Patient c/o left shoulder pain post fall. Dr. Ayala, orthopedic surgeon was consulted. X-ray to right shoulder showed no fractures or dislocations. On 08/04/2018 repeat CTH stable. Per Dr. Marinelli Neurosurgeon ASA on hold and will need resolution of hemorrhage prior to anticoagulation therapy. A repeat CTH was done on 08/10/2018 before discharge; acute/subacute left-sided supratentorial subdural hematoma with only mild associated mass effect without rebleeding. Post fall, patient developed vertigo, nausea, headaches. Vertigo and nausea resolved. Patient lives with spouse in a duplex, was independent with all mobility, transfers and driving and only needed assistance to put on shoes and socks prior to hospital admission. Plan - PT for mobility - OT for ADLs - ST for evaluation - Analgesics as needed - Posterior occipital skull fracture with subdural intracranial bleed no anti-coagulation until resolution of hemorrhage, Hold ASA O.K for DVT prophylaxis Lovenox per neurosurgeon. On 08/12/18 CT of brain without contrast showed Improvement in the subdural hematoma involving the interhemispheric fissure. Persistent scalp hematoma overlying the posterior aspect of the right parietal occipital bones, which is a improvement from previous study. - Diabetes Accuchecks AC&HS, on Tradjenta On 03/13/2018 HgbA1c 7.5 % recheck level on 08/11/2018 6.3% - HTN on Lopressor - HLD on Lipitor - MARKY on CPAP - CAD with cardiac stent on Lopressor, Cozaar, Lasix and Lipitor - Anxiety on Visteral pamoate - Depression on Celexa - GERD on Protonix - Insomnia on melatonin - Hypokalemia resolved On 08/17/18 K+ level 4.8 on K-dur D/C with lasix - Hypothyroidism on Synthroid - Vertigo on Antivert PRN - + ortho statics, lightheadedness Encouraged fluid intake, sitting up in chair and slow positional changes. - Morbid obesity BMI 42.0 - Occipital laceration - healed sutures d/c on 08/13/2018 - Thrush resolved - Abdominal fold excoriated resolved - Stage II pressure ulcer on coccyx present on admission- healing Calmoseptine and Wound consult - GI/DVT prophylaxis Protonix/Lovenox SQ, knee high richard hose - Fall precautions - Bowel protocol - Medical management per hospitalist- consult - F/U with PCP, neurosurgeon, boiler blower
--- NOTE | 2018-08-18 14:58 | PN.NEURO_ITS ---
Patient Problems: Active and Suspected Problems (Last Updated 08/11/18 @ 12:59 by Maggie Jacobson, SECURITY SME-C) Pressure ulcer of coccygeal region, stage 2 (Acute) Subjective: Per nursing no issues overnight. Lasix, potassium and cozaar discontinued yesterday by hospitalist after reviewing bp and HR. Patient states his dizziness is improving and headaches, mild headaches as dull and intermittent. Patient is trying to increase fluid intake and sitting up more in chair. Patient is tolerating therapies well. - Physical Exam General: Alert, Oriented x3, Cooperative HEENT: Atraumatic, PERRLA Oral: Moist Mucosa Neck: Supple, No JVD Lungs: Clear to auscultation, Normal air movement Cardiovascular: Regular rate, Regular Rhythm Abdomen: Bowel Sounds Present, Soft, Non-Distended, Obese Extremities: No clubbing, No cyanosis, No edema Skin: Ulcer/ Wound - Coccyx stage II healing Musculoskeletal: No Tenderness to Palpation of Joints or Extremities Neurological: Cranial nerves II-XII grossly intact, Deep Tendon Reflexes 2+/4 and Symmetrical, Neuro grossly intact, Motor Exam 5/5 strength throughout Psych/Mental Status: Normal Affect, Appropriate, Alert and oriented to time, place, person, mood and affect Vital Signs Temp Pulse Resp BP Pulse Ox 97.8 F 56 L 16 97/56 L 92 08/18/18 08:17 08/18/18 08:17 08/18/18 08:17 08/18/18 08:17 08/18/18 08:17 Oxygen Flow Rate (L/min) 2 Oxygen Delivery Method Room Air Weight: 121.6 kg Body Mass Index (BMI) 42.0 Orthostatic Vital Signs Start: 08/11/18 06:12 Freq: Status: Active Protocol: Activity Type Activity Date Activity User E-Sign Co-Sign Detail Recorded Client Recorded Date Recorded By Document 08/17/18 07:22 JOSEK [id number] 08/17/18 07:24 CHAPIN 08/17/18 07:22 Orthostatic Vitals Standing -Blood Pressure (90/60-120/80 mm Hg) 95/57 L -Extremity Use Right Arm -Pulse Rate (60-100 beats/min) 54 L Sitting -Blood Pressure (90/60-120/80 mm Hg) 109/64 -Extremity Use Right Arm -Pulse Rate (60-100 beats/min) 48 L Lying -Blood Pressure (90/60-120/80 mm Hg) 104/47 L -Extremity Use Right Arm -Pulse Rate (60-100 beats/min) 43 L Intake and Output for Last 24 Hours 08/16/18 08/17/18 08/18/18 23:59 23:59 23:59 Intake Total 100 / 100 1680 / 1680 Output Total 300 / 300 800 / 800 Balance -200 / -200 880 / 880 Medical Necessity - Tobacco Use Smoking Status: Never smoker Assessment/Plan All Active Problems (Last Updated 08/11/18 @ 12:59 by Maggie Jacobson, SECURITY SME-C) Pressure ulcer of coccygeal region, stage 2 (Acute) Dyspnea on exertion (Acute) Constipation (Acute) Preop cardiovascular exam (Acute) The patient is a 57 year old M with PMH Diabetes, HTN, MARKY, HLD, CAD with cardiac stent, Depression, Anxiety, Gastric bypass surgery January 2018 admitted to [facility] on 08/10/2018 for debility secondary to posterior occipital sk ull fracture with subdural intracranial bleed, for greater of 3 hours of therapy daily with a goal of returning back home at or near her prior level of functional dependence. Patient presented to [facility] ER on 08/02/2018 due to patient was standing on a chair changing a lightbulb and loss balance and fell onto the floor with LOC. Patient had scalp laceration and CT scan of brain showed mild subdural hematoma 5 mm along the interhemispheric fissure and possible non-displaced nondepressed fracture of the left side of occipital bone. CT of spine showed normal unenhanced examination of cervical spine. Patient was transferred to [facility]. Neurosurgery was consulted and no acute surgical intervention was needed at that time. Patient c/o left shoulder pain post fall. Dr. Ayala, orthopedic surgeon was consulted. X-ray to right shoulder showed no fractures or dislocations. On 08/04/2018 repeat CTH stable. Per Dr. Marinelli Neurosurgeon ASA on hold and will need resolution of hemorrhage prior to anticoagulation therapy. A repeat CTH was done on 08/10/2018 before discharge; acute/subacute left-sided supratentorial subdural hematoma with only mild associated mass effect without rebleeding. Post fall, patient developed vertigo, nausea, headaches. Vertigo and nausea resolved. Patient lives with spouse in a duplex, was independent with all mobility, transfers and driving and only needed assistance to put on shoes and socks prior to hospital admission. Plan - PT for mobility - OT for ADLs - ST for evaluation - Analgesics as needed - Posterior occipital skull fracture with subdural intracranial bleed no anti-coagulation until resolution of hemorrhage, Hold ASA O.K for DVT prophylaxis Lovenox per neurosurgeon. On 08/12/18 CT of brain without contrast showed Improvement in the subdural hematoma involving the interhemispheric fissure. Persistent scalp hematoma overlying the posterior aspect of the right parietal occipital bones, which is a improvement from previous study. - Diabetes Accuchecks AC&HS, on Tradjenta On 03/13/2018 HgbA1c 7.5 % recheck level on 08/11/2018 6.3% - HTN on Lopressor - HLD on Lipitor - MARKY on CPAP - CAD with cardiac stent on Lopressor, Cozaar, Lasix and Lipitor - Anxiety on Visteral pamoate - Depression on Celexa - GERD on Protonix - Insomnia on melatonin - Hypokalemia resolved On 08/17/18 K+ level 4.8 on K-dur D/C with lasix - Hypothyroidism on Synthroid - Vertigo on Antivert PRN - + ortho statics, lightheadedness Encouraged fluid intake, sitting up in chair and slow positional changes. - Morbid obesity BMI 42.0 - Occipital laceration - healed sutures d/c on 08/13/2018 - Thrush resolved - Abdominal fold excoriated resolved - Stage II pressure ulcer on coccyx present on admission- healing Calmoseptine and Wound consult - GI/DVT prophylaxis Protonix/Lovenox SQ, knee high richard hose - Fall precautions - Bowel protocol - Medical management per hospitalist- consult - F/U with PCP, neurosurgeon, nutrition tech
[2018-08-18 19:30] VITALS: BP 111/65; PULSE 53; RESP 16; TEMP 36.9; O2SAT 97
[2018-08-18 21:49] VITALS: BP 111/65; PULSE 53; RESP 16; TEMP 36.9; O2SAT 97
[2018-08-18] MEDS: MELATONIN 3 MG TABLET 6 MG PO (21:53)
[2018-08-18] MEDS: Atorvastatin Calcium 40 MG Tablet PO (21:53)
[2018-08-18 21:57] VITALS: BP 111/65; PULSE 53
[2018-08-19] MEDS: Acetaminophen 500 MG Tablet 1000 MG PO ×3 (06:56→22:13)
[2018-08-19] MEDS: Levothyroxine 100 MCG Tablet PO (06:56)
[2018-08-19] MEDS: Enoxaparin 40 MG/0.4 ML Syringe SC (06:57)
[2018-08-19] MEDS: Menthol/Lanolin/Calamine/Znox 113 GM Tube 1 APPLIC TOPICAL ×2 (07:09→22:14)
[2018-08-19 07:11] VITALS: BP 121/72; BP 123/65; BP 83/52; PULSE 45; PULSE 46; PULSE 50
[2018-08-19] MEDS: Cyanocobalamin 500 MCG Tablet 1000 MCG PO (07:39)
[2018-08-19] MEDS: Calcium Carb/Vitamin D 1 TABLET Tablet PO ×2 (07:39→17:29)
[2018-08-19] MEDS: Senna/Docusate Sodium 1 Tablet 2 TABLET PO (07:39)
[2018-08-19] MEDS: Citalopram 20 MG Tablet PO (07:39)
[2018-08-19] MEDS: oxyCODONE 5 MG Tablet PO ×2 (07:40→17:29)
--- NOTE | 2018-08-19 07:40 | PCM.PROGNOTE ---
Patient Problems: Active and Suspected Problems (Last Updated 08/11/18 @ 12:59 by Maggie Jacobson, MARISOL-C) Pressure ulcer of coccygeal region, stage 2 (Acute) Subjective: Late entry for 08/18/2018 Continues to complain of lightheadedness and also of headache. Both the headache and the lightheadedness increase when he is upright. Lasix was discontinued yesterday and he was encouraged to increase his fluid intake. No orthostatics were done today, will order for the a.m. He had gastric bypass surgery in January 2018 and since his surgery has lost approximately 105 pounds. He was on several medications for hypertension prior to the bypass surgery. He was also taking Lasix because of lower extremity edema however his ejection fraction on an echo within the past year was normal. The edema was likely secondary to venous insufficiency related to super morbid obesity. Denies shortness of breath, cough, nausea, vomiting, abdominal pain. - Physical Exam General: Alert, Oriented x3, Cooperative, No apparent distress, Well developed, Well nourished HEENT: PERRLA, EOMI, Normocephalic Oral: Moist Mucosa Neck: Supple Lungs: Clear to auscultation Cardiovascular: Regular rate, Regular Rhythm, Normal S1, Normal S2, No murmurs, No Gallop, - - Heart sounds are distant, likely secondary to body habitus. Abdomen: Bowel Sounds Present, Soft, Non Tender, Non-Distended Extremities: No clubbing, No cyanosis, No edema Skin: No rashes, No breakdown Neurological: Cranial nerves II-XII grossly intact, Neuro grossly intact Psych/Mental Status: Normal Affect, Appropriate Vital Signs Temp Pulse Resp BP Pulse Ox 98.5 F 45 L 16 123/65 H 97 08/18/18 21:49 08/19/18 07:11 08/18/18 21:49 08/19/18 07:11 08/18/18 21:49 Oxygen Flow Rate (L/min) 2 Oxygen Delivery Method Room Air Weight: 257 lb 7.999 oz Body Mass Index (BMI) 42.0 Orthostatic Vital Signs Start: 08/11/18 06:12 Freq: DAILY Status: Active Protocol: Activity Type Activity Date Activity User E-Sign Co-Sign Detail Recorded Client Recorded Date Recorded By Document 08/19/18 07:11 [place] [id number] 08/19/18 07:23 [place] 08/19/18 07:11 Orthostatic Vitals Standing -Blood Pressure (90/60-120/80 mm Hg) 83/52 L -Extremity Use Right Arm -Pulse Rate (60-100 beats/min) 50 L Sitting -Blood Pressure (90/60-120/80 mm Hg) 121/72 H -Extremity Use Right Arm -Pulse Rate (60-100 beats/min) 46 L Lying -Blood Pressure (90/60-120/80 mm Hg) 123/65 H -Extremity Use Right Arm -Pulse Rate (60-100 beats/min) 45 L Intake and Output for Last 24 Hours 08/17/18 08/18/18 08/19/18 23:59 23:59 23:59 Intake Total 1680 / 1680 Output Total 800 / 800 Balance 880 / 880 Medical Necessity - Tobacco Use Smoking Status: Never smoker Assessment/Plan All Active Problems (Last Updated 08/11/18 @ 12:59 by Maggie Jacobson, BOARD CERTIFIED FAMILY PHYSICIAN-C) Pressure ulcer of coccygeal region, stage 2 (Acute) Dyspnea on exertion (Acute) Constipation (Acute) Preop cardiovascular exam (Acute) Impressions 1. Recent subdural hematoma secondary to fall while changing a light bulb standing on a chair 2. Orthostatic hypotension-secondary to dehydration? Secondary to antihypertensives? Secondary to autonomic neuropathy from long-standing diabetes mellitus? 3. History of hypertension 4. History of gastric bypass surgery in January 2018 5. Diabetes mellitus type 2 6. Hyperlipidemia 7. Hypothyroidism 8. Depression 9. Cephalgia 10. CAD with history of a metal stent to the proximal LAD in February 2009 11. Obstructive sleep apnea Check orthostatics again in the AM. He is on only Metoprolol 12.5 BID now and the BP and the HR are on the low side. Will check a TSH and T4.....may not be absorbing the Levothyroid. If the TSH is normal will discuss with Dr. Batista Discontinuing the Metoprolol vs adding Midodrine for possible autonomic neuropathy. Encouraged the pt NOT to drink fluids with his meals so that he can eat more. Encouraged increased fluid intake between meals....he has Gatorade at the bedside. Code Visit Inpatient E&M: 84190 Subs Hosp L2
--- NOTE | 2018-08-19 07:56 | CASEMGMT ---
Insurance: Additional days approved with LCD 08/20/18 and next review date 08/21/18. Auth # [id number]
[2018-08-19 08:32] VITALS: BP 123/65; PULSE 50; RESP 16; TEMP 36.3; O2SAT 99
[2018-08-19 09:19] VITALS: BP 123/65; PULSE 50
[2018-08-19] MEDS: Metoprolol Tartrate 25 MG Tablet 12.5 MG PO ×2 (09:19→22:11)
[2018-08-19] MEDS: Pantoprazole Sodium 20 MG Tablet PO (09:20)
[2018-08-19] MEDS: LINAGLIPTIN 5 MG TABLET PO (09:20)
[2018-08-19] MEDS: Multivitamins,Therapeutic Tablet 1 TABLET PO (09:20)
[2018-08-19 10:11] LABS: T4 Total, Thyroxin 8.5 ug/dL (4.5-12.1); Thyroid Stim Hormone (TSH) 1.27 uIU/mL (0.358-3.74)
--- NOTE | 2018-08-19 12:15 | PCM.PN.NEU ---
Patient Problems: Active and Suspected Problems (Last Updated 08/11/18 @ 12:59 by Maggie Jacobson, FORMULA CLERK-C) Pressure ulcer of coccygeal region, stage 2 (Acute) Subjective: Per nursing no issues overnight. Per patient vertigo improving and tolerating therapies. Per patient dull, intermittent mild headaches are improving, topamax was started. Hospitalist saw patient this am and assessing for possible medication changes d/t blood pressure and HR continues to remain on lower side. - Physical Exam General: Alert, Oriented x3, Cooperative HEENT: Atraumatic, PERRLA Oral: Moist Mucosa Neck: Supple, No JVD Lungs: Clear to auscultation, Normal air movement Cardiovascular: Regular rate, Regular Rhythm Abdomen: Bowel Sounds Present, Soft, Non Tender Extremities: No clubbing, No cyanosis, No edema Skin: Ulcer/ Wound - coccyx stage II healing Musculoskeletal: No Tenderness to Palpation of Joints or Extremities Neurological: Cranial nerves II-XII grossly intact, Deep Tendon Reflexes 2+/4 and Symmetrical, Neuro grossly intact, Motor Exam 5/5 strength throughout Psych/Mental Status: Normal Affect, Appropriate, Alert and oriented to time, place, person, mood and affect Vital Signs Temp Pulse Resp BP Pulse Ox 97.4 F L 50 L 16 123/65 H 99 08/19/18 08:32 08/19/18 09:19 08/19/18 08:32 08/19/18 09:19 08/19/18 08:32 Oxygen Flow Rate (L/min) 2 Oxygen Delivery Method Room Air Weight: 116.8 kg Body Mass Index (BMI) 42.0 Orthostatic Vital Signs Start: 08/11/18 06:12 Freq: DAILY Status: Active Protocol: Activity Type Activity Date Activity User E-Sign Co-Sign Detail Recorded Client Recorded Date Recorded By Document 08/19/18 07:11 [place] [id number] 08/19/18 07:23 [place] 08/19/18 07:11 Orthostatic Vitals Standing -Blood Pressure (90/60-120/80) 83/52 L -Extremity Use Right Arm -Pulse Rate (60-100) 50 L Sitting -Blood Pressure (90/60-120/80) 121/72 H -Extremity Use Right Arm -Pulse Rate (60-100) 46 L Lying -Blood Pressure (90/60-120/80) 123/65 H -Extremity Use Right Arm -Pulse Rate (60-100) 45 L Intake and Output for Last 24 Hours 08/17/18 08/18/18 08/19/18 23:59 23:59 23:59 Intake Total 1680 / 1680 240 / 240 Output Total 800 / 800 Balance 880 / 880 240 / 240 Laboratory Tests Past 24 Hrs 08/19/18 09:26 TSH 1.27 Thyroxine (T4) 8.5 Medical Necessity - Tobacco Use Smoking Status: Never smoker Assessment/Plan All Active Problems (Last Updated 08/11/18 @ 12:59 by Maggie Jacobson, FORMULA CLERK-C) Pressure ulcer of coccygeal region, stage 2 (Acute) Dyspnea on exertion (Acute) Constipation (Acute) Preop cardiovascular exam (Acute) The patient is a 57 year old M with PMH Diabetes, HTN, MARKY, HLD, CAD with cardiac stent, Depression, Anxiety, Gastric bypass surgery January 2018 admitted to [facility] on 08/10/2018 for debility secondary to posterior occipital skull fracture with subdural intracranial bleed, for greater of 3 hours of therapy daily with a goal of returning back home at or near her prior level of functional dependence. Patient presented to [facility] ER on 08/02/2018 due to patient was standing on a chair changing a lightbulb and loss balance and fell onto the floor with LOC. Patient had scalp laceration and CT scan of brain showed mild subdural hematoma 5 mm along the interhemispheric fissure and possible non-displaced nondepressed fracture of the left side of occipital bone. CT of spine showed normal unenhanced examination of cervical spine. Patient was transferred to [facility]. Neurosurgery was consulted and no acute surgical intervention was needed at that time. Patient c/o left shoulder pain post fall. Dr. Ayala, orthopedic surgeon was consulted. X-ray to right shoulder showed no fractures or dislocations. On 08/04/2018 repeat CTH stable. Per Dr. Marinelli Neurosurgeon ASA on hold and will need resolution of hemorrhage prior to anticoagulation therapy. A repeat CTH was done on 08/10/2018 before discharge; acute/subacute left-sided supratentorial subdural hematoma with only mild associated mass effect without rebleeding. Post fall, patient developed vertigo, nausea, headaches. Vertigo and nausea resolved. Patient lives with spouse in a duplex, was independent with all mobility, transfers and driving and only needed assistance to put on shoes and socks prior to hospital admission. Plan - PT for mobility - OT for ADLs - ST for evaluation - Analgesics as needed - Posterior occipital skull fracture with subdural intracranial bleed no anti-coagulation until resolution of hemorrhage, Hold ASA O.K for DVT prophylaxis Lovenox per neurosurgeon. On 08/12/18 CT of brain without contrast showed Improvement in the subdural hematoma involving the interhemispheric fissure. Persistent scalp hematoma overlying the posterior aspect of the right parietal occipital bones, which is a improvement from previous study. - Diabetes Accuchecks AC&HS, on Tradjenta On 03/13/2018 HgbA1c 7.5 % recheck level on 08/11/2018 6.3% - HTN on Lopressor - HLD on Lipitor - MARKY on CPAP - CAD with cardiac stent on Lopressor and Lipitor - Anxiety on Visteral pamoate - Depression on Celexa - GERD on Protonix - Insomnia on melatonin - Hypokalemia resolved On 08/17/18 K+ level 4.8 on K-dur D/C with lasix - Hypothyroidism on Synthroid - Vertigo on Antivert PRN - + ortho statics, lightheadedness Encouraged fluid intake, sitting up in chair and slow positional changes. - Morbid obesity BMI 42.0 - Occipital laceration - healed sutures d/c on 08/13/2018 - Headaches on tylenol and topamax - Thrush resolved - Abdominal fold excoriated resolved - Stage II pressure ulcer on coccyx present on admission- healing Calmoseptine and Wound consult - GI/DVT prophylaxis Protonix/Lovenox SQ, knee high richard hose - Fall precautions - Bowel protocol - Medical management per hospitalist- consult - F/U with PCP, neurosurgeon, php website developer
[2018-08-19] MEDS: Topiramate 25 MG Tablet PO ×2 (12:20→22:13)
--- NOTE | 2018-08-19 12:20 | PN.NEURO_ITS ---
Patient Problems: Active and Suspected Problems (Last Updated 08/11/18 @ 12:59 by Maggie Jacobson, CUSTOM GRINDER-C) Pressure ulcer of coccygeal region, stage 2 (Acute) Subjective: Per nursing no issues overnight. Per patient vertigo improving and tolerating therapies. Per patient dull, intermittent mild headaches are improving, topamax was started. Hospitalist saw patient this am and assessing for possible medication changes d/t blood pressure and HR continues to remain on lower side. - Physical Exam General: Alert, Oriented x3, Cooperative HEENT: Atraumatic, PERRLA Oral: Moist Mucosa Neck: Supple, No JVD Lungs: Clear to auscultation, Normal air movement Cardiovascular: Regular rate, Regular Rhythm Abdomen: Bowel Sounds Present, Soft, Non Tender Extremities: No clubbing, No cyanosis, No edema Skin: Ulcer/ Wound - coccyx stage II healing Musculoskeletal: No Tenderness to Palpation of Joints or Extremities Neurological: Cranial nerves II-XII grossly intact, Deep Tendon Reflexes 2+/4 and Symmetrical, Neuro grossly intact, Motor Exam 5/5 strength throughout Psych/Mental Status: Normal Affect, Appropriate, Alert and oriented to time, place, person, mood and affect Vital Signs Temp Pulse Resp BP Pulse Ox 97.4 F L 50 L 16 123/65 H 99 08/19/18 08:32 08/19/18 09:19 08/19/18 08:32 08/19/18 09:19 08/19/18 08:32 Oxygen Flow Rate (L/min) 2 Oxygen Delivery Method Room Air Weight: 116.8 kg Body Mass Index (BMI) 42.0 Orthostatic Vital Signs Start: 08/11/18 06:12 Freq: DAILY Status: Active Protocol: Activity Type Activity Date Activity User E-Sign Co-Sign Detail Recorded Client Recorded Date Recorded By Document 08/19/18 07:11 [place] [id number] 08/19/18 07:23 [place] 08/19/18 07:11 Orthostatic Vitals Standing -Blood Pressure (90/60-120/80) 83/52 L -Extremity Use Right Arm -Pulse Rate (60-100) 50 L Sitting -Blood Pressure (90/60-120/80) 121/72 H -Extremity Use Right Arm -Pulse Rate (60-100) 46 L Lying -Blood Pressure (90/60-120/80) 123/65 H -Extremity Use Right Arm -Pulse Rate (60-100) 45 L Intake and Output for Last 24 Hours 08/17/18 08/18/18 08/19/18 23:59 23:59 23:59 Intake Total 1680 / 1680 240 / 240 Output Total 800 / 800 Balance 880 / 880 240 / 240 Laboratory Tests Past 24 Hrs 08/19/18 09:26 TSH 1.27 Thyroxine (T4) 8.5 Medical Necessity - Tobacco Use Smoking Status: Never smoker Assessment/Plan All Active Problems (Last Updated 08/11/18 @ 12:59 by Maggie Jacobson, CUSTOM GRINDER-C) Pressure ulcer of coccygeal region, stage 2 (Acute) Dyspnea on exertion (Acute) Constipation (Acute) Preop cardiovascular exam (Acute) The patient is a 57 year old M with PMH Diabetes, HTN, MARKY, HLD, CAD with cardiac stent, Depression, Anxiety, Gastric bypass surgery January 2018 admitted to [facility] on 08/10/2018 for debility secondary to posterior occipital skull fracture with subdural intracranial bleed, for greater of 3 hours of therapy daily with a goal of returning back home at or near her prior level of functional dependence. Patient presented to [facility] ER on 08/02/2018 due to patient was standing on a chair changing a lightbulb and loss balance and fell onto the floor with LOC. Patient had scalp laceration and CT scan of brain showed mild subdural hematoma 5 mm along the interhemispheric fissure and possible non-displaced nondepressed fracture of the left side of occipital bone. CT of spine showed normal unenhanced examination of cervical spine. Patient was transferred to [facility]. Neurosurgery was consulted and no acute surgical intervention was needed at that time. Patient c/o left shoulder pain post fall. Dr. Ayala, orthopedic surgeon was consulted. X-ray to right shoulder showed no fractures or dislocations. On 08/04/2018 repeat CTH stable. Per Dr. Marinelli Neurosurgeon ASA on hold and will need resolution of hemorrhage prior to anticoagulation therapy. A repeat CTH was done on 08/10/2018 before discharge; acute/subacute left-sided supratentorial subdural hematoma with only mild associated mass effect without rebleeding. Post fall, patient developed vertigo, nausea, headaches. Vertigo and nausea resolved. Patient lives with spouse in a duplex, was independent with all mobility, transfers and driving and only needed assistance to put on shoes and socks prior to hospital admission. Plan - PT for mobility - OT for ADLs - ST for evaluation - Analgesics as needed - Posterior occipital skull fracture with subdural intracranial bleed no anti-coagulation until resolution of hemorrhage, Hold ASA O.K for DVT prophylaxis Lovenox per neurosurgeon. On 08/12/18 CT of brain without contrast showed Improvement in the subdural hematoma involving the interhemispheric fissure. Persistent scalp hematoma overlying the posterior aspect of the right parietal occipital bones, which is a improvement from previous study. - Diabetes Accuchecks AC&HS, on Tradjenta On 03/13/2018 HgbA1c 7.5 % recheck level on 08/11/2018 6.3% - HTN on Lopressor - HLD on Lipitor - MARKY on CPAP - CAD with cardiac stent on Lopressor and Lipitor - Anxiety on Visteral pamoate - Depression on Celexa - GERD on Protonix - Insomnia on melatonin - Hypokalemia resolved On 08/17/18 K+ level 4.8 on K-dur D/C with lasix - Hypothyroidism on Synthroid - Vertigo on Antivert PRN - + ortho statics, lightheadedness Encouraged fluid intake, sitting up in c hair and slow positional changes. - Morbid obesity BMI 42.0 - Occipital laceration - healed sutures d/c on 08/13/2018 - Headaches on tylenol and topamax - Thrush resolved - Abdominal fold excoriated resolved - Stage II pressure ulcer on coccyx present on admission- healing Calmoseptine and Wound consult - GI/DVT prophylaxis Protonix/Lovenox SQ, knee high richard hose - Fall precautions - Bowel protocol - Medical management per hospitalist- consult - F/U with PCP, neurosurgeon, supplier manager
[2018-08-19 22:00] VITALS: BP 114/66; PULSE 55; RESP 16; TEMP 36.4; O2SAT 94
[2018-08-19] MEDS: Atorvastatin Calcium 40 MG Tablet PO (22:10)
[2018-08-19 22:11] VITALS: BP 114/66; PULSE 55
[2018-08-19] MEDS: MELATONIN 3 MG TABLET 6 MG PO (22:12)
[2018-08-20] MEDS: oxyCODONE 5 MG Tablet PO ×3 (03:28→21:54)
--- NOTE | 2018-08-20 04:47 | NURSING ---
REVIEWED AND AGREE WITH MOLD CLEANING AND STORAGE SUPERVISOR FIMS AND HANDOFF CHARTING
[2018-08-20] MEDS: Menthol/Lanolin/Calamine/Znox 113 GM Tube 1 APPLIC TOPICAL ×2 (05:56→21:56)
[2018-08-20] MEDS: Enoxaparin 40 MG/0.4 ML Syringe SC (05:57)
[2018-08-20] MEDS: Levothyroxine 100 MCG Tablet PO (05:57)
[2018-08-20] MEDS: Acetaminophen 500 MG Tablet 1000 MG PO ×3 (05:57→21:49)
[2018-08-20 07:00] VITALS: BP 110/61; PULSE 54; RESP 16; TEMP 36.4; O2SAT 94
--- NOTE | 2018-08-20 09:10 | PCM.PN.NEU ---
Patient Problems: Active and Suspected Problems (Last Updated 08/11/18 @ 12:59 by Maggie Jacobson, PATROL INSPECTOR-C) Pressure ulcer of coccygeal region, stage 2 (Acute) Subjective: Team meeting held today. Per PT transitioning using straight cane at SBA, supervised transfers and up and down 12 steps with contact guard. ADLS supervised except for min assist with upper body drsg and putting shoes on. Per ST, sometimes needs prompting and repetition and overall doing well, per patient back to baseline. Patient stated his headaches are mild intermittent and dull to right temporal and frontal area. States his vertigo is in am when getting OOB, but then resolves. Patient will be discharged on 08/21/18 with outpatient PT/ST. - Physical Exam General: Alert, Oriented x3, Cooperative HEENT: Atraumatic, PERRLA Oral: Moist Mucosa Neck: Supple, No JVD Lungs: Clear to auscultation, Normal air movement Cardiovascular: Regular rate, Regular Rhythm Abdomen: Bowel Sounds Present, Soft, Non Tender, Obese Extremities: No clubbing, No cyanosis, No edema Skin: Ulcer/ Wound - coccyx stage II healing Neurological: Cranial nerves II-XII grossly intact, Deep Tendon Reflexes 2+/4 and Symmetrical, Neuro grossly intact, Motor Exam 5/5 strength throughout Psych/Mental Status: Normal Affect, Appropriate, Alert and oriented to time, place, person, mood and affect Vital Signs Temp Pulse Resp BP Pulse Ox 97.5 F L 54 L 16 110/61 94 08/20/18 07:00 08/20/18 07:00 08/20/18 07:00 08/20/18 07:00 08/20/18 07:00 Oxygen Flow Rate (L/min) 2 Oxygen Delivery Method Room Air Weight: 116.8 kg Body Mass Index (BMI) 42.0 Orthostatic Vital Signs Start: 08/11/18 06:12 Freq: DAILY Status: Active Protocol: Activity Type Activity Date Activity User E-Sign Co-Sign Detail Recorded Client Recorded Date Recorded By Document 08/19/18 07:11 [place] [id number] 08/19/18 07:23 [place] 08/19/18 07:11 Orthostatic Vitals Standing -Blood Pressure (90/60-120/80) 83/52 L -Extremity Use Right Arm -Pulse Rate (60-100) 50 L Sitting -Blood Pressure (90/60-120/80) 121/72 H -Extremity Use Right Arm -Pulse Rate (60-100) 46 L Lying -Blood Pressure (90/60-120/80) 123/65 H -Extremity Use Right Arm -Pulse Rate (60-100) 45 L Intake and Output for Last 24 Hours 08/18/18 08/19/18 08/20/18 23:59 23:59 23:59 Intake Total 240 / 240 240 / 240 Balance 240 / 240 240 / 240 Laboratory Tests Past 24 Hrs 08/19/18 09:26 TSH 1.27 Thyroxine (T4) 8.5 Medical Necessity - Tobacco Use Smoking Status: Never smoker Assessment/Plan All Active Problems (Last Updated 08/11/18 @ 12:59 by Maggie Jacobson, PATROL INSPECTOR-C) Pressure ulcer of coccygeal region, stage 2 (Acute) Dyspnea on exertion (Acute) Constipation (Acute) Preop cardiovascular exam (Acute) The patient is a 57 year old M with PMH Diabetes, HTN, MARKY, HLD, CAD with cardiac stent, Depression, Anxiety, Gastric bypass surgery January 2018 admitted to [facility] on 08/10/2018 for debility secondary to posterior occipital skull fracture with subdural intracranial bleed, for greater of 3 hours of therapy daily with a goal of returning back home at or near her prior level of functional dependence. Patient presented to [facility] ER on 08/02/2018 due to patient was standing on a chair changing a lightbulb and loss balance and fell onto the floor with LOC. Patient had scalp laceration and CT scan of brain showed mild subdural hematoma 5 mm along the interhemispheric fissure and possible non-displaced nondepressed fracture of the left side of occipital bone. CT of spine showed normal unenhanced examination of cervical spine. Patient was transferred to [facility]. Neurosurgery was consulted and no acute surgical intervention was needed at that time. Patient c/o left shoulder pain post fall. Dr. Ayala, orthopedic surgeon was consulted. X-ray to right shoulder showed no fractures or dislocations. On 08/04/2018 repeat CTH stable. Per Dr. Marinelli Neurosurgeon ASA on hold and will need resolution of hemorrhage prior to anticoagulation therapy. A repeat CTH was done on 08/10/2018 before discharge; acute/subacute left-sided supratentorial subdural hematoma with only mild associated mass effect without rebleeding. Post fall, patient developed vertigo, nausea, headaches. Vertigo and nausea resolved. Patient lives with spouse in a duplex, was independent with all mobility, transfers and driving and only needed assistance to put on shoes and socks prior to hospital admission. Plan - PT for mobility - OT for ADLs - ST for evaluation - Analgesics as needed - Posterior occipital skull fracture with subdural intracranial bleed no anti-coagulation until resolution of hemorrhage, Hold ASA O.K for DVT prophylaxis Lovenox per neurosurgeon. On 08/12/18 CT of brain without contrast showed Improvement in the subdural hematoma involving the interhemispheric fissure. Persistent scalp hematoma overlying the posterior aspect of the right parietal occipital bones, which is a improvement from previous study. - Diabetes Accuchecks AC&HS, on Tradjenta On 03/13/2018 HgbA1c 7.5 % recheck level on 08/11/2018 6.3% - HTN on Lopressor - HLD on Lipitor - MARKY on CPAP - CAD with cardiac stent on Lopressor and Lipitor - Anxiety on Visteral pamoate - Depression on Celexa - GERD on Protonix - Insomnia on melatonin - Hypokalemia resolved On 08/17/18 K+ level 4.8 on K-dur D/C with lasix - Hypothyroidism on Synthroid - Vertigo on Antivert PRN - + ortho statics, lightheadedness Encouraged fluid intake, sitting up in chair and slow positional changes. - Morbid obesity BMI 40.0 - Occipital laceration - healed sutures d/c on 08/13/2018 - Headaches on tylenol and topamax - Thrush resolved - Abdominal fold excoriated resolved - Stage II pressure ulcer on coccyx present on admission- healing Calmoseptine and Wound consult - GI/DVT prophylaxis Protonix/Lovenox SQ, knee high richard hose - Fall precautions - Bowel protocol - Medical management per hospitalist- consult - F/U with PCP, neurosurgeon, soap maker - Discharge home with outpatient PT/ST on 08/21/18
--- NOTE | 2018-08-20 09:17 | PN.NEURO_ITS ---
Patient Problems: Active and Suspected Problems (Last Updated 08/11/18 @ 12:59 by Maggie Jacobson, SOLAR INSTALLER TECHNICIAN-C) Pressure ulcer of coccygeal region, stage 2 (Acute) Subjective: Team meeting held today. Per PT transitioning using straight cane at SBA, supervised transfers and up and down 12 steps with contact guard. ADLS supervised except for min assist with upper body drsg and putting shoes on. Per ST, sometimes needs prompting and repetition and overall doing well, per patient back to baseline. Patient stated his headaches are mild intermittent and dull to right temporal and frontal area. States his vertigo is in am when getting OOB, but then resolves. Patient will be discharged on 08/21/18 with outpatient PT/ST. - Physical Exam General: Alert, Oriented x3, Cooperative HEENT: Atraumatic, PERRLA Oral: Moist Mucosa Neck: Supple, No JVD Lungs: Clear to auscultation, Normal air movement Cardiovascular: Regular rate, Regular Rhythm Abdomen: Bowel Sounds Present, Soft, Non Tender, Obese Extremities: No clubbing, No cyanosis, No edema Skin: Ulcer/ Wound - coccyx stage II healing Neurological: Cranial nerves II-XII grossly intact, Deep Tendon Reflexes 2+/4 and Symmetrical, Neuro grossly intact, Motor Exam 5/5 strength throughout Psych/Mental Status: Normal Affect, Appropriate, Alert and oriented to time, place, person, mood and affect Vital Signs Temp Pulse Resp BP Pulse Ox 97.5 F L 54 L 16 110/61 94 08/20/18 07:00 08/20/18 07:00 08/20/18 07:00 08/20/18 07:00 08/20/18 07:00 Oxygen Flow Rate (L/min) 2 Oxygen Delivery Method Room Air Weight: 116.8 kg Body Mass Index (BMI) 42.0 Orthostatic Vital Signs Start: 08/11/18 06:12 Freq: DAILY Status: Active Protocol: Activity Type Activity Date Activity User E-Sign Co-Sign Detail Recorded Client Recorded Date Recorded By Document 08/19/18 07:11 [place] [id number] 08/19/18 07:23 [place] 08/19/18 07:11 Orthostatic Vitals Standing -Blood Pressure (90/60-120/80) 83/52 L -Extremity Use Right Arm -Pulse Rate (60-100) 50 L Sitting -Blood Pressure (90/60-120/80) 121/72 H -Extremity Use Right Arm -Pulse Rate (60-100) 46 L Lying -Blood Pressure (90/60-120/80) 123/65 H -Extremity Use Right Arm -Pulse Rate (60-100) 45 L Intake and Output for Last 24 Hours 08/18/18 08/19/18 08/20/18 23:59 23:59 23:59 Intake Total 240 / 240 240 / 240 Balance 240 / 240 240 / 240 Laboratory Tests Past 24 Hrs 08/19/18 09:26 TSH 1.27 Thyroxine (T4) 8.5 Medical Necessity - Tobacco Use Smoking Status: Never smoker Assessment/Plan All Active Problems (Last Updated 08/11/18 @ 12:59 by Maggie Jacobson, SOLAR INSTALLER TECHNICIAN-C) Pressure ulcer of coccygeal region, stage 2 (Acute) Dyspnea on exertion (Acute) Constipation (Acute) Preop cardiovascular exam (Acute) The patient is a 57 year old M with PMH Diabetes, HTN, MARKY, HLD, CAD with cardiac stent, Depression, Anxiety, Gastric bypass surgery January 2018 admitted to [facility] on 08/10/2018 for debility secondary to posterior occipital skull fracture with subdural intracranial bleed, for greater of 3 hours of therapy daily with a goal of returning back home at or near her prior level of functional dependence. Patient presented to [facility] ER on 08/02/2018 due to patient was standing on a chair changing a lightbulb and loss balance and fell onto the floor with LOC. Patient had scalp laceration and CT scan of brain showed mild subdural hematoma 5 mm along the interhemispheric fissure and possible non-displaced nondepressed fracture of the left side of occipital bone. CT of spine showed normal unenhanced examination of cervical spine. Patient was transferred to [facility]. Neurosurgery was consulted and no acute surgical intervention was needed at that time. Patient c/o left shoulder pain post fall. Dr. Ayala, orthopedic surgeon was consulted. X-ray to right shoulder showed no fractures or dislocations. On 08/04/2018 repeat CTH stable. Per Dr. Marinelli Neurosurgeon ASA on hold and will need resolution of hemorrhage prior to anticoagulation therapy. A repeat CTH was done on 08/10/2018 before discharge; acute/subacute left-sided supratentorial subdural hematoma with only mild associated mass effect without rebleeding. Post fall, patient developed vertigo, nausea, headaches. Vertigo and nausea resolved. Patient lives with spouse in a duplex, was independent with all mobility, transfers and driving and only needed assistance to put on shoes and socks prior to hospital admission. Plan - PT for mobility - OT for ADLs - ST for evaluation - Analgesics as needed - Posterior occipital skull fracture with subdural intracranial bleed no anti-coagulation until resolution of hemorrhage, Hold ASA O.K for DVT prophylaxis Lovenox per neurosurgeon. On 08/12/18 CT of brain without contrast showed Improvement in the subdural hematoma involving the interhemispheric fissure. Persistent scalp hematoma overlying the posterior aspect of the right parietal occipital bones, which is a improvement from previous study. - Diabetes Accuchecks AC&HS, on Tradjenta On 03/13/2018 HgbA1c 7.5 % recheck level on 08/11/2018 6.3% - HTN on Lopressor - HLD on Lipitor - MARKY on CPAP - CAD with cardiac stent on Lopressor and Lipitor - Anxiety on Visteral pamoate - Depression on Celexa - GERD on Protonix - Insomnia on melatonin - Hypokalemia resolved On 08/17/18 K+ level 4.8 on K-dur D/C with lasix - Hypothyroidism on Synthroid - Vertigo on Antivert PRN - + ortho statics, lightheadedness Encouraged fluid intake, sitting up in chair and slow positional changes. - Morbid obesity BMI 40.0 - Occipital laceration - healed sutures d/c on 08/13/2018 - Headaches on tylenol and topamax - Thrush resolved - Abdominal fold excoriated resolved - Stage II pressure ulcer on coccyx present on admission- healing Calmoseptine and Wound consult - GI/DVT prophylaxis Protonix/Lovenox SQ, knee high richard hose - Fall precautions - Bowel protocol - Medical management per hospitalist- consult - F/U with PCP, neurosurgeon, monitor and storage bin tender - Discharge home with outpatient PT/ST on 08/21/18
[2018-08-20] MEDS: Senna/Docusate Sodium 1 Tablet 2 TABLET PO ×2 (09:52→21:49)
[2018-08-20 09:53] VITALS: BP 110/61; PULSE 54
[2018-08-20] MEDS: Metoprolol Tartrate 25 MG Tablet 12.5 MG PO ×2 (09:53→21:48)
[2018-08-20] MEDS: Topiramate 25 MG Tablet PO ×2 (09:54→21:49)
[2018-08-20] MEDS: Cyanocobalamin 500 MCG Tablet 1000 MCG PO (09:54)
[2018-08-20] MEDS: Citalopram 20 MG Tablet PO (09:54)
[2018-08-20] MEDS: Calcium Carb/Vitamin D 1 TABLET Tablet PO ×2 (09:54→17:05)
[2018-08-20] MEDS: Multivitamins,Therapeutic Tablet 1 TABLET PO (09:54)
[2018-08-20] MEDS: LINAGLIPTIN 5 MG TABLET PO (09:54)
[2018-08-20] MEDS: Pantoprazole Sodium 20 MG Tablet PO (10:01)
--- NOTE | 2018-08-20 10:42 | CASEMGMT ---
Social Work SW met with pt and and discussed Advance directives. Both HCPOA and Living will explained and offered to assist in completing today. Pt would like time to think about options and talk to his . SW provided information that pt can make appointment with social work as outpatient to complete documentation. Pt indicates he will do this. Spoke with pt and regarding d/c planned for 08/21/18. Therapy is recommending outpt PT/ST and pt is agreeable and would like to use [facility]. Pt will be available to assist pt as needed and with transportation. Pt also needs a wide wheeled walker and shower chair. WW to be ordered from [employer] and delivered to pt room prior to d/c. Pt aware that shower chair is not covered by insurance and will pick this up. SW to follow for d/c planning. LAURIE Bianchi
--- NOTE | 2018-08-20 12:36 | CASEMGMT ---
Social Work IDT met with patient and spouse for Team. Discussed patient doing well with therapy and medically stable. Insurance issued LCD 08/20 with NRD 08/21. Patient and spouse understand continued stay is not guaranteed, and are requesting to DC 08/21. IDT agrees with DC - recommending FWW and outpatient PT/ST - patient agrees to [facility] for therapy. Referrals made to [facility] and [facility]. Plan: home with spouse, FWW, outpatient ST/PT at [facility] 08/21. NASREEN GloverW
--- NOTE | 2018-08-20 16:11 | CASEMGMT ---
Social Work PHQ 9 interview completed due to pt diagnosis of SDH. Pt score of 8 indicating mild depression. Pt stating he sees a psychiatrist at the counseling center and takes and anti depressant. Pt has seen a counselor in the past but has not followed up recently. Pt denies resources stating he will contact Counseling center if he feels needed. LAURIE Bianchi
--- NOTE | 2018-08-20 17:41 | DCINST_ITS ---
- Discharge Diagnoses Current Active Problems: Current Active and Chronic Problems (Last Updated 08/11/18 @ 12:59 by Maggie Jacobson NP-C) Pressure ulcer of coccygeal region, stage 2 (Acute) Reason(s) for Visit for Discharge Instructions: Debility seconary to Posterior occipital skull fracture with subdural intracranial bleed You will use the following diet at home:: Cardiac Your food should be the consistency of: Regular Your liquids should be the consistency of: Regular/Thin Discharge Activity: Return to Normal Activity, May Not Drive, May Shower, Use Walker Weight Bearing Status: Weight bearing as tolerated Call your doctor if you observe: Fever of 101 or Higher, Coldness, Increased Pain, Numbness or Tingling, Change in Color, Inability to urinate, Inability to have a bowel movement, Shortness of breath, Dizziness, Fainting spells, Swelling in the ankles, Chest pain, Prolonged hiccoughing, Increased palpitations (irregular heartbeat), Calf discomfort, Uncontrolled pain Additional Instructions: * Increase fluid intake, slow positional changes. * No aspirin until resolution of hemorrhage. * Decrease prolong sitting on coccyx and use off-loading due to Pressure ulcer on coccyx healing Allergies/Adverse Reactions: Allergies celecoxib [From Celebrex] Allergy (Intermediate, Verified 06/24/18 10:33) Rash Medications to take at Discharge Acetaminophen [Tylenol] 1,000 mg PO Q8 #180 tablet 08/20/18 Atorvastatin Calcium [Lipitor] 40 mg PO QHS #30 tablet 08/20/18 Calcium Carb/Vitamin D [Os-Shane 500MG + D] 1 tablet PO BIDCM #60 tablet 08/20/18 Citalopram [Celexa] 20 mg PO DAILY #30 tablet 08/20/18 Cyanocobalamin [Vitamin B12] 1,000 mcg PO DAILYCM #60 tablet 08/20/18 Levothyroxine [Synthroid] 100 mcg PO DAILY@0600 #30 tablet 08/20/18 Linagliptin [Tradjenta] 5 mg PO DAILY tablet 08/20/18 Melatonin 6 mg PO QHS #30 tablet 08/20/18 Metoprolol Tartrate [Lopressor (beta azar)] 12.5 mg PO BID #15 tablet 08/20/18 Multivitamins,Therapeutic [Multivitamin] 1 tablet PO DAILY@0800 #30 tablet 08/20/18 Omeprazole [Prilosec] 20 mg PO DAILY #30 capsule 08/20/18 Senna/Docusate Sodium [Senokot-S] 2 tablet PO BID tablet 08/20/18 Topiramate [Topamax] 25 mg PO BID #60 tablet 08/20/18 The following prescriptions were given: Acetaminophen [Tylenol] 1,000 mg PO Q8 #180 tablet Atorvastatin Calcium [Lipitor] 40 mg PO QHS #30 tablet Citalopram [Celexa] 20 mg PO DAILY #30 tablet Cyanocobalamin [Vitamin B12] 1,000 mcg PO DAILYCM #60 tablet Levothyroxine [Synthroid] 100 mcg PO DAILY@0600 #30 tablet Melatonin 6 mg PO QHS #30 tablet Multivitamins,Therapeutic [Multivitamin] 1 tablet PO DAILY@0800 #30 tablet Omeprazole [Prilosec] 20 mg PO DAILY #30 capsule Calcium Carb/Vitamin D [Os-Shane 500MG + D] 1 tablet PO BIDCM #60 tablet Metoprolol Tartrate [Lopressor (beta azar)] 12.5 mg PO BID #15 tablet Topiramate [Topamax] 25 mg PO BID #60 tablet Primary Care Physician: Leanna Last NP-C [Primary Care Provider] - Test Results: Test results from this visit will be discussed in further detail at your follow- up appointment, if applicable. Please Follow Up With: Leanna Last NP Please Follow Up With: [facility] Please Follow Up With: [facility] When: They will contact you to set an appointment Please Follow Up With: Silvio Batista MD Cardiology Proposed Discharge Date: 08/21/18
--- NOTE | 2018-08-20 17:45 | PCM.RU.DC ---
Rehab Discharge Summary DATE OF ADMISSION: 08/10/18 DATE OF DISCHARGE: 08/21/2018 - Rehab Diagnosis Debility secondary to Posterior occipital skull fracture with subdural intracranial bleed Patient Problems: Active and Suspected Problems (Last Updated 08/11/18 @ 12:59 by Maggie Jacobson NP-C) Pressure ulcer of coccygeal region, stage 2 (Acute) - Physical Exam General: Alert, Oriented x3, Cooperative HEENT: Atraumatic, PERRLA Oral: Moist Mucosa Neck: Supple, No JVD Lungs: Clear to auscultation, Normal air movement Cardiovascular: Regular rate, Regular Rhythm Abdomen: Bowel Sounds Present, Soft, Non Tender, Obese Extremities: No clubbing, No cyanosis, No edema Skin: Ulcer/ Wound - Coccyx stage II healing Musculoskeletal: No Tenderness to Palpation of Joints or Extremities Neurological: Cranial nerves II-XII grossly intact, Deep Tendon Reflexes 2+/4 and Symmetrical, Neuro grossly intact, Motor Exam 5/5 strength throughout Psych/Mental Status: Normal Affect, Appropriate, Alert and oriented to time, place, person, mood and affect Vital Signs Temp Pulse Resp BP Pulse Ox 97.5 F L 54 L 16 110/61 94 08/20/18 07:00 08/20/18 09:53 08/20/18 07:00 08/20/18 09:53 08/20/18 07:00 Oxygen Flow Rate (L/min) 2 Oxygen Delivery Method Room Air Weight: 116.8 kg Body Mass Index (BMI) 42.0 Intake and Output for Last 24 Hours 08/18/18 08/19/18 08/20/18 23:59 23:59 23:59 Intake Total 240 / 240 240 / 240 Balance 240 / 240 240 / 240 Discharge Diet: Low fat/ Low Cholesterol Discharge Activity: Return to Normal Activity, May Not Drive, May Shower, Use Walker Weight Bearing Status: Weight bearing as tolerated Call your doctor if you observe: Fever of 101 or Higher, Coldness, Increased Pain, Numbness or Tingling, Change in Color, Inability to urinate, Inability to have a bowel movement, Shortness of breath, Dizziness, Fainting spells, Swelling in the ankles, Chest pain, Prolonged hiccoughing, Increased palpitations (irregular heartbeat), Calf discomfort, Uncontrolled pain Home Medications: Medications to take at Discharge Acetaminophen [Tylenol] 1,000 mg PO Q8 #180 tablet 08/20/18 Atorvastatin Calcium [Lipitor] 40 mg PO QHS #30 tablet 08/20/18 Calcium Carb/Vitamin D [Os-Shane 500MG + D] 1 tablet PO BIDCM #60 tablet 08/20/18 Citalopram [Celexa] 20 mg PO DAILY #30 tablet 08/20/18 Cyanocobalamin [Vitamin B12] 1,000 mcg PO DAILYCM #60 tablet 08/20/18 Levothyroxine [Synthroid] 100 mcg PO DAILY@0600 #30 tablet 08/20/18 Linagliptin [Tradjenta] 5 mg PO DAILY tablet 08/20/18 Melatonin 6 mg PO QHS #30 tablet 08/20/18 Metoprolol Tartrate [Lopressor (beta azar)] 12.5 mg PO BID #15 tablet 08/20/18 Multivitamins,Therapeutic [Multivitamin] 1 tablet PO DAILY@0800 #30 tablet 08/20/18 Omeprazole [Prilosec] 20 mg PO DAILY #30 capsule 08/20/18 Senna/Docusate Sodium [Senokot-S] 2 tablet PO BID tablet 08/20/18 Topiramate [Topamax] 25 mg PO BID #60 tablet 08/20/18 Following Prescrptions Were Given to Patient: Acetaminophen [Tylenol] 1,000 mg PO Q8 #180 tablet Atorvastatin Calcium [Lipitor] 40 mg PO QHS #30 tablet Citalopram [Celexa] 20 mg PO DAILY #30 tablet Cyanocobalamin [Vitamin B12] 1,000 mcg PO DAILYCM #60 tablet Levothyroxine [Synthroid] 100 mcg PO DAILY@0600 #30 tablet Melatonin 6 mg PO QHS #30 tablet Multivitamins,Therapeutic [Multivitamin] 1 tablet PO DAILY@0800 #30 tablet Omeprazole [Prilosec] 20 mg PO DAILY #30 capsule Calcium Carb/Vitamin D [Os-Shane 500MG + D] 1 tablet PO BIDCM #60 tablet Metoprolol Tartrate [Lopressor (beta azar)] 12.5 mg PO BID #15 tablet Topiramate [Topamax] 25 mg PO BID #60 tablet Primary Care Physician: Leanna Last NP-C [Primary Care Provider] - Please Follow Up With: Leanna Last NP When: Friday Please Follow Up With: [facility] Please Follow Up With: [facility] When: They will contact you to set an appointment Please Follow Up With: Silvio Batista MD Cardiology Additional Instructions: * Increase fluid intake, slow positional changes. * No aspirin until resolution of hemorrhage. * Decrease prolong sitting on coccyx and use off-loading due to Pressure ulcer on coccyx healing Disposition: Home Patient Condition:: Stable Rehab Course The patient is a 57 year old M with PMH Diabetes, HTN, MARKY, HLD, CAD with cardiac stent, Depression, Anxiety, Gastric bypass surgery January 2018 admitted to [facility] on 08/10/2018 for debility secondary to posterior occipital skull fracture with subdural intracranial bleed, for greater of 3 hours of therapy daily with a goal of returning back home at or near her prior level of functional dependence. Patient presented to [facility] ER on 08/02/2018 due to patient was standing on a chair changing a lightbulb and loss balance and fell onto the floor with LOC. Patient had scalp laceration and CT scan of brain showed mild subdural hematoma 5 mm along the interhemispheric fissure and possible non-displaced nondepressed fracture of the left side of occipital bone. CT of spine showed normal unenhanced examination of cervical spine. Patient was transferred to [facility]. Neurosurgery was consulted and no acute surgical intervention was needed at that time. Patient c/o left shoulder pain post fall. Dr. Ayala, orthopedic surgeon was consulted. X-ray to right shoulder showed no fractures or dislocations. On 08/04/2018 repeat CTH stable. Per Dr. Marinelli Neurosurgeon ASA on hold and will need resolution of hemorrhage prior to anticoagulation therapy. A repeat CTH was done on 08/10/2018 before discharge; acute/subacute left-sided supratentorial subdural hematoma with only mild associated mass effect without rebleeding. Post fall, patient developed vertigo, nausea, headaches. Vertigo and nausea resolved. Patient lives with spouse in a duplex, was independent with all mobility, transfers and driving and only needed assistance to put on shoes and socks prior to hospital admission. During Rehab course, Present on admission was Stage II pressure ulcer to coccyx and has improved. On 08/11/2018 rechecked HgbA1c was 6.3%. On 08/12/2018 patient had a severe headache and described it has a constant throbbing to right temporal and frontal area. CT of brain without contrast showed Improvement in the subdural hematoma involving the interhemispheric fissure. Persistent scalp hematoma overlying the posterior aspect of the right parietal occipital bones, which is a improvement from previous study and Dr. Marinelli was updated on results. Headaches gradually decreased with Tylenol and Topamax. Patient had positive orthostatics, blood pressures with heart rate on the low side and vertigo; Lasix, K-Dur, Cozaar discontinued and Lopressor decreased, fluids and sitting up encouraged with slow positional changes. Patient did receive 2 liters of NS. Sutures were removed on 08/13/2018 from occipital area, without s/sx of infection. Patient to be discharged home on 08/21/2018 with outpatient PT/ST. Patient to F/U with PCP, Neurosurgeon, and [employer]el[employer]. Meaningful Use Info Meaningful Use Diagnoses (Choose all that apply): None applicable
[2018-08-20 21:48] VITALS: PULSE 55
[2018-08-20] MEDS: Atorvastatin Calcium 40 MG Tablet PO (21:48)
[2018-08-20] MEDS: MELATONIN 3 MG TABLET 6 MG PO (21:49)
[2018-08-20 22:00] VITALS: BP 121/67; PULSE 50; RESP 16; TEMP 36.6; O2SAT 98
[2018-08-21] MEDS: Acetaminophen 500 MG Tablet 1000 MG PO (05:39)
[2018-08-21] MEDS: Enoxaparin 40 MG/0.4 ML Syringe SC (05:39)
[2018-08-21] MEDS: Levothyroxine 100 MCG Tablet PO (05:39)
[2018-08-21] MEDS: Menthol/Lanolin/Calamine/Znox 113 GM Tube 1 APPLIC TOPICAL (05:40)
[2018-08-21 07:00] VITALS: BP 133/87; PULSE 54; RESP 16; TEMP 36.9; O2SAT 99
[2018-08-21 08:35] VITALS: BP 105/61; PULSE 48; RESP 16; TEMP 36.6; O2SAT 97
[2018-08-21] MEDS: oxyCODONE 5 MG Tablet PO (08:45)
[2018-08-21 08:58] VITALS: BP 105/61; PULSE 47
[2018-08-21] MEDS: Pantoprazole Sodium 20 MG Tablet PO (08:58)
[2018-08-21] MEDS: Cyanocobalamin 500 MCG Tablet 1000 MCG PO (08:58)
[2018-08-21] MEDS: Multivitamins,Therapeutic Tablet 1 TABLET PO (08:58)
[2018-08-21] MEDS: Citalopram 20 MG Tablet PO (08:58)
[2018-08-21] MEDS: Calcium Carb/Vitamin D 1 TABLET Tablet PO (08:58)
[2018-08-21] MEDS: Topiramate 25 MG Tablet PO (08:59)
[2018-08-21] MEDS: LINAGLIPTIN 5 MG TABLET PO (08:59)
[2018-08-21 11:00] VITALS: BP 101/66; PULSE 50; RESP 16; O2SAT 97
--- NOTE | 2018-08-24 10:34 | CASEMGMT ---
Insurance Insurance notified of pt d/c on 08/21/18 with outpt therapy. Auth # [id number] LAURIE Bianchi
== END 2018-08-21 11:10 | disposition home or self-care (01) | DRG 862 ==
PROVIDERS: Internal Medicine; Nurse Practitioner Family; Admitting Provider Psychiatry & Neurology Neurology; Family Provider Nurse Practitioner Family; PCP Nurse Practitioner Family; Visit Provider Psychiatry & Neurology Neurology
DX: S02.11 Fracture of occiput (principal); S06.5X9D Traumatic subdural hemorrhage with loss of consciousness of unspecified duration, subsequent encounter; W07.XXXD Fall from chair, subsequent encounter; I25.10 Atherosclerotic heart disease of native coronary artery without angina pectoris; Z95.5 Presence of coronary angioplasty implant and graft; I10 Essential (primary) hypertension; E78.5 Hyperlipidemia, unspecified; E03.9 Hypothyroidism, unspecified; F41.9 Anxiety disorder, unspecified; K21.9 Gastro-esophageal reflux disease without esophagitis; F32.9 Major depressive disorder, single episode, unspecified; Z98.84 Bariatric surgery status; G47.33 Obstructive sleep apnea (adult) (pediatric); E11.69 Type 2 diabetes mellitus with other specified complication; E66.01 Morbid (severe) obesity due to excess calories; Z68.41 Body mass index [BMI] 40.0-44.9, adult; L89.152 Pressure ulcer of sacral region, stage 2; B37.0 Candidal stomatitis; E87.6 Hypokalemia
CPT/HCPCS: 36415; 70450; 80048; 80053; 82962; 83036; 84132; 84436; 84443; 85025; 85652; 92507; 92523; 92610; 97110; 97112; 97116; 97162; 97166; 97530; 97535; 97537; 97802; J7030; A4216

== ENCOUNTER → 2018-09-08 11:06 | Outpatient (REF) | payer MEDICAID, SELFPAY ==
[2018-09-08 10:26] VITALS: BMI 37.2
== END ==
LOC: CVS 11:06
PROVIDERS: Family Provider Nurse Practitioner Family; PCP Nurse Practitioner Family; Referring Provider Internal Medicine Cardiovascular Disease; Visit Provider Internal Medicine Cardiovascular Disease
DX: Z45.2 Encounter for adjustment and management of vascular access device (principal)
CPT/HCPCS: 93270

== ENCOUNTER → 2018-09-08 11:15 | Outpatient (CLI) | payer MEDICAID, SELFPAY ==
[2018-09-08 10:26] VITALS: BMI 37.2
--- NOTE | 2018-09-08 11:16 | CT_ITS ---
STUDY: CT BRAIN WITHOUT CONTRAST REASON FOR EXAM: Male, 57 years old. Fall. RADIATION DOSAGE (If Supplied By Facility): CTDIvol = ( 44.99 ) mGy, DLP = ( 812.98 ) mGycm TECHNIQUE: Transaxial CT imaging of the brain was performed without administration of intravenous contrast material. Individualized dose optimization techniques were used for this CT. COMPARISON: No relevant priors. FINDINGS: Normal soft tissue structures. Normal calvarium. Normal size ventricles and extra-axial spaces for the patient's age. Normal white matter tracts of the cerebral hemispheres. Normal basal ganglia and thalami. Normal brainstem. Normal cerebellum. There is no intracranial hemorrhage. There are no findings of an acute ischemic infarction. Normal visualized paranasal sinuses. CT/Brain/Head without Contrast IMPRESSION: No evidence of acute intracranial bleed, mass or ischemia. Electronically Signed: Flaco Carpio DO at 11:47 EDT , Service support ,
== END ==
PROVIDERS: Family Provider Nurse Practitioner Family; PCP Nurse Practitioner Family; Referring Provider Internal Medicine Cardiovascular Disease; Visit Provider Internal Medicine Cardiovascular Disease
DX: S09.90XA Unspecified injury of head, initial encounter (principal); X58.XXXA Exposure to other specified factors, initial encounter; Y93.9 Activity, unspecified; Y92.9 Unspecified place or not applicable; Y99.9 Unspecified external cause status; R00.1 Bradycardia, unspecified; R42 Dizziness and giddiness; I25.10 Atherosclerotic heart disease of native coronary artery without angina pectoris; L89.152 Pressure ulcer of sacral region, stage 2; E66.01 Morbid (severe) obesity due to excess calories; Z68.41 Body mass index [BMI] 40.0-44.9, adult
CPT/HCPCS: 70450; 93270

== ENCOUNTER → 2018-09-30 20:00 | Outpatient (CLI) | payer MEDICAID, SELFPAY ==
[2018-09-08 10:26] VITALS: BMI 37.2
== END ==
PROVIDERS: Family Provider Nurse Practitioner Family; PCP Nurse Practitioner Family; Referring Provider Nurse Practitioner Acute Care; Visit Provider Nurse Practitioner Acute Care
DX: G47.33 Obstructive sleep apnea (adult) (pediatric) (principal)
CPT/HCPCS: 95811

== ENCOUNTER 2018-10-24 12:26 | Emergency (ER) | payer MEDICAID, SELFPAY ==
[2018-09-08 10:26] VITALS: BMI 37.2
[2018-10-24 12:26] VITALS: BP 121/66; PULSE 54; RESP 15; TEMP 36.7; O2SAT 100; BMI 35.9
--- NOTE | 2018-10-24 12:44 | CT_ITS ---
STUDY: CT CHEST WITHOUT CONTRAST REASON FOR EXAM: Male, 57 years old. Fall. Right chest wall pain. RADIATION DOSAGE (If Supplied By Facility): CTDIvol = ( 28.42 ) mGy, DLP = ( 1178.62 ) mGycm TECHNIQUE: Transaxial imaging was performed without the administration of intravenous contrast material. Individualized dose optimization techniques were used for this CT. COMPARISON: None. FINDINGS: Low lung volumes. No pneumothorax. Scattered areas of poorly defined pulmonary density most consistent with subsegmental atelectasis. No infiltrates. No effusions. There is no demonstrated pleural abnormality. Normal heart and pericardium. There are calcifications of the coronary arteries. Normal mediastinum. Normal hilar regions. Normal unenhanced pulmonary arteries. Normal aorta arch and descending thoracic aorta. Normal osseous structures. No fractures are seen. There is no demonstrated acute abnormality of the visualized upper abdomen. CT/Chest without Contrast IMPRESSION: Incomplete expansion of the lungs. No acute abnormalities are seen. Electronically Signed: Darwin Roberts MD at 14:04 EDT , Service support ,
--- NOTE | 2018-10-24 12:44 | CT_ITS ---
STUDY: CT BRAIN WITHOUT CONTRAST REASON FOR EXAM: Male, 57 years old. Fall. Recent subdural hematoma. Recent occipital fracture. RADIATION DOSAGE (If Supplied By Facility): CTDIvol = ( 44.99 ) mGy, DLP = ( 832.67 ) mGycm TECHNIQUE: Transaxial CT imaging of the brain was performed without administration of intravenous contrast material. Individualized dose optimization techniques were used for this CT. COMPARISON: 09/08/2018 FINDINGS: Small scalp hematoma over the posterior left parietal bone.. Normal calvarium. Normal size ventricles and extra-axial spaces for the patient's age. Normal white matter tracts of the cerebral hemispheres. Normal basal ganglia and thalami. Normal brainstem. Normal cerebellum. There is no intracranial hemorrhage. There are no findings of an acute ischemic infarction. Normal visualized paranasal sinuses. CT/Brain/Head without Contrast IMPRESSION: Normal unenhanced CT scan of the brain. Electronically Signed: Darwin Roberts MD at 14:00 EDT , Service support ,
--- NOTE | 2018-10-24 12:50 | RAD_ITS ---
STUDY: X-RAY - PELVIS AND RIGHT HIP REASON FOR EXAM: Male, 57 years old. Fall. TECHNIQUE: 3 views of the pelvis and hip. COMPARISON: None. FINDINGS: There is a non-specific bowel gas pattern. Normal visualized soft tissue structures. Normal bilateral iliac wings, sacroiliac joints and visualized sacrum. Normal bilateral superior and inferior pubic rami. Normal pubic symphysis. Normal bilateral ischial tuberosities. Normal visualized femoral head. Normal acetabulum. Normal hip joint. RAD/HIP, UNI W/ Pelvis 2-3 Views IMPRESSION: Normal x-ray examination of the pelvis and hip. Electronically Signed: Darwin Roberts MD at 13:22 EDT , Service support ,
--- NOTE | 2018-10-24 13:02 | RAD_ITS ---
STUDY: X-RAY - RIGHT SHOULDER REASON FOR EXAM: Male, 57 years old. Fall. TECHNIQUE: 4 view(s) of the shoulder. COMPARISON: None. FINDINGS: Normal glenohumeral articulation. Normal acromioclavicular joint. Normal acromion. Normal humeral head and visualized proximal humerus. The soft tissue structures are unremarkable. There is no demonstrated fracture. Normal visualized pulmonary apex. RAD/Shoulder min 2 Views IMPRESSION: Normal x-ray examination of the shoulder. Electronically Signed: Darwin Roberts MD at 13:44 EDT , Service support ,
[2018-10-24 14:13] VITALS: BP 148/49; PULSE 50; RESP 16; O2SAT 95
--- NOTE | 2018-10-24 14:24 | ED.VISSUMM ---
- ER Visit Summary Date of Service: 10/24/18 Chief Complaint: [Fall] History of Present Illness: The patient is a 57 M [the emergency department after sustaining a fall yesterday. Patient states that he was on a gravel path when he lost balance and fell onto his right side. Patient did strike his head but no loss of consciousness. Patient states several months ago he had a fall that caused him to have an intracranial hemorrhage. He is currently not on any blood thinners. Patient also complaining of right-sided rib pain and right hip pain. Patient denies any neck pain. Patient does have history of diabetes and hypertension.] Physical Examination: [HEENT-PERRLA, EOMI. Cranial nerves II through XII grossly intact. TMs clear. Mucous membranes moist. No adenopathy. No C-spine tenderness on palpation. No external evidence of trauma to his head. Cardiovascular-regular rate and rhythm without murmur or ectopy. Patient does have tenderness palpation over right anterior chest wall in the midaxillary line. Patient has some mild discomfort underneath the right ribs. Lungs-clear to auscultation, chest wall stable without crepitus or subcu emphysema Abdomen-normoactive bowel sounds, soft, nontender, no rebound or rigidity, no peritoneal signs. Extremities-intact ?4, normal range of motion, normal pulses. Patient does have a superficial abrasion to the right elbow with no bony tenderness on exam. Patient has mild tenderness over the right hip but there is no shortening or external rotation. Patient has been ambulatory. Patient has an abrasion to the right shoulder with some tenderness diffusely over the glenohumeral joint.] Test Results: [Patient had x-rays of the right shoulder which showed no fractures. Patient had x-rays of the right hip and pelvis which showed no fractures. Patient had a CT scan of the chest that went down through the liver and no rib fractures or pneumothorax or organ injury noted. CT scan of the brain without contrast showed nothing acute.] Emergency Department Course and Treatment: [] Treatment Plan: [She will given [place] for pain. Patient advised to follow-up with primary care physician 3 to 5 days.] Disposition: [Discharged home stable condition] Impression: [Mechanical fall Chest wall contusion Closed head injury Right shoulder contusion Right hip contusion] This note was generated with [employer] software. It may contain incorrect words, spelling, and punctuation that were not noted in review of the chart prior to signing ED Disposition - Plan for ED Patient: Referrals: Leanna Last, [employer] CARRIER ASSOCIATE-C [Primary Care Provider] -
--- NOTE | 2018-10-24 14:29 | DCINST.ED_ITS ---
ED Disposition - Plan for ED Patient: Instructions: FALL, Mechanical, HEAD INJURY, No Wake-Up (Adult), Chest Wall Contusion, Hip Contusion Prescriptions: Hydrocodone Bitart/Apap 5-325 [[place] 5MG-325MG] 1 tab PO Q4H PRN PRN 2 Days #10 tab PRN Reason: Pain Prescription Printed Referrals: Leanna Last, [employer] TECHNICIAN-C [Primary Care Provider] - 3-5 Days
--- NOTE | 2018-10-24 14:29 | ED.DEP ---
ED Disposition - Plan for ED Patient: Instructions: FALL, Mechanical, HEAD INJURY, No Wake-Up (Adult), Chest Wall Contusion, Hip Contusion Prescriptions: Hydrocodone Bitart/Apap 5-325 [[place] 5MG-325MG] 1 tab PO Q4H PRN PRN 2 Days #10 tab PRN Reason: Pain Prescription Printed Referrals: Leanna Last, SOFTWARE DEVELOPMENT ANALYST-C [Primary Care Provider] - 3-5 Days
[2018-10-24 14:38] VITALS: BP 149/58; PULSE 67; RESP 16; O2SAT 96
== END 2018-10-24 14:39 | disposition home or self-care (01) ==
LOC: ED 13:46
PROVIDERS: Emergency Provider Emergency Medicine; Family Provider Nurse Practitioner Family; PCP Nurse Practitioner Family
DX: S09.90XA Unspecified injury of head, initial encounter (principal); S40.011A Contusion of right shoulder, initial encounter; S20.219A Contusion of unspecified front wall of thorax, initial encounter; S70.01XA Contusion of right hip, initial encounter; S50.311A Abrasion of right elbow, initial encounter; S40.211A Abrasion of right shoulder, initial encounter; W01.0XXA Fall on same level from slipping, tripping and stumbling without subsequent striking against object, initial encounter; Y93.9 Activity, unspecified; Y92.9 Unspecified place or not applicable; Y99.9 Unspecified external cause status; E11.9 Type 2 diabetes mellitus without complications; I10 Essential (primary) hypertension; Z79.899 Other long term (current) drug therapy
CPT/HCPCS: 70450; 71250; 73030; 73502; 99282

== ENCOUNTER 2018-11-20 15:00 | Outpatient (RCR) | payer MEDICAID, SELFPAY ==
[2018-08-10 12:33] VITALS: BMI 42.0
[2018-08-27 12:59] VITALS: BMI 42.0
--- NOTE | 2018-09-01 17:01 | HP.PTEVAL_ITS ---
Patient's Visit Information BRADLEY GREENFIELD is a 57 year old M referred to Physical Therapy by Gloria Whittington MD with a diagnosis of SDH. Date of Evaluation: 09/01/18 Physical Therapist: Brayan Rosas PT, ATC - Visit Plan Frequency: 2-3x /Week Duration: 4-6 Weeks Plan: Wait for further PT until after Dr visit this Friday. If pt is cleared, begin B LE strengthening, balance and proprio ex's, gait training, nustep, and HEP - Subjective Findings: Pt reports he fell off a chair while attempting to change a light bulb a little over a month ago. Pt reports he was immediately transferred to the ER. Pt reports he was in ICU for 2 weeks, then to the inpatient rehab for 2 weeks. Pt reports he has had bariatric surgery in the past where he has lost over 100 pounds. Pt reports since his fall, he continues to have bad FONSECA's and gets dizzy a lot. Pt reports when he lyes down, his head feels like someone is sitting on his head. Pt reports he feels like he needs PT to strengthen his R LE so it wont give out on him anymore. Pt reports his FONSECA pain is 7/10 and stays steady at this time. - Pain FONSECA Pain Intensity (Out of 10): 7 Pain Intensity Range: 7 - Objective Neuro: B LE sensation is WNL to light touch. B patellar tendon reflex= 2/3. MMT: B LE are grossly rated at 4-/5 throughout. ROM: B LE's are WNL when compared bilaterally. Gait: Pt is able to ambulate 170 feet until becoming dizzy and needing a break - Goals Goal 1:: Increase B LE strength x 1 grade to aid with stair negotiation Goal Time Frame: 4-6 Weeks Goal 2:: Pt will able to ambulate greater than 1000' with LRD to aid with community ambulation Goal Time Frame: 4-6 Weeks Goal 3:: I with HEP - Rehabilitation Potential Physical Therapy Diagnosis: Pt has a FONSECA, limited ability to ambulate, and LE weakness secondary to debility from SDH Rehabilitation Potential: Good - Anticipated Interventions Patient/Client Instruction: Educate patient on: Condition, Plan of Care For the Purpose of:: To improve self management Therapeutic Exercise to Include: Strength training, Endurance training, Balance training, Gait and locomotor training, Dynamic Lumbar Stabilization For the Purpose of:: To improve muscle performance and motor function, To improve performance and independence with ADL's, To improve ability of physical actions for home/community/work/leisure Thank you for the opportunity to evaluate your patient. For Medicare and Medicare HMO plans, please review the plan of care and approve it. It will need to be FAXED BACK to us at [phone] for Medicare purposes. For Medicare only, by signing this I certify the plan of care. Please let me know if there are questions or concerns regarding this plan of care. Physician Signature: Date:
--- NOTE | 2018-10-02 08:37 | HP.SP.AD ---
History - History Date of Eval: 09/11/18 Previous speech therapy: Yes Results: Prior Speech Therapy on Rehab at [facility] 08/11/2018 to target attention, memory, executive functioning. Smoking Status: Never smoker Hx Smoking: No Hx Tobacco Use: No - Pain Is pain an issue with your current prescribed condition?: No - Personal Patients Living Arrangements: With Significant Other Patient Allergies - Allergies Allergies celecoxib [From Celebrex] Allergy (Intermediate, Verified 09/08/18 10:36) Rash CLQT - CLQT CLQT Administered: Yes CLQT: Cognitive Linguistic Quick Test (CLQT) is a criterion - referenced assessment designed for adults between the ages of 18 and 89 with known or suspected neurological dysfuntions. The CLQT is to assess strength and weaknesses in five cognitive domains. Severity ratings are within normal limits, mild, moderate, severe deficits. The subtests are as follows: Date: 10/02/18 - Attention Attention: WNL - Memory Memory: Mild - Executive Functions Executive Functions: Mild - Language Language: Mild - Visuospatial Skills Visuospatial Skills: WNL - Composite Severity Rating Composite Severity Rating: Mild - Clock Drawing Severity Rating Clock Drawing Severity Rating: Mild - CLQT Comments Pt demonstrating moderate difficulty with the listening comprehension. Pt noted that prior baseline was mild difficulty but she has noticed increased comprehension difficulties post fall. . Other Impressions - Comments . -: Pt is concerned with his memory, both short and intermission coordinator memory. Pt verbalized that he has difficulty remembering rules to games. Pt completes most tasks at home for Pt due to pt experiencing dizziness, blurred vision at times, and memory issues. Pt to see neurologist on September 18. Plan - Plan Plan: Skills speech therapy is warrented to target memory and executive functioning through the use of compensatory strategies, repeated practice, immediate feedback, and cuing. Deficits in these areas can adversely effect the patients ability to complete daily tasks, problem solve, recall information, effectively communicate wants and needs, and interact with others effectively in a variety of settings. - Frequency Frequency: 1x/Week Duration: 4-6 Months - Prognosis Prognosis: Good - Goal #1-5 Goal #1: Pt will utilize compensatory strategies to improve working memory with 80% accuracy in 3/5 trials. Prompts: Mod Accuracy: 80% Goal #2: Pt will utilize compensatory strategies during structured tasks to increase executive functioning abilities with 80% accuracy in 3/5 trials. Prompts: Mod Accuracy: 80% Education - Patient has Indicated that the Following Identified Educational Needs: None The Patient has indicated that they have no educational or learning abilities that may effect their care.: Yes - Patient Instruction Patient Education: Diagnosis, Treatment Plan, Goals
--- NOTE | 2018-11-20 15:36 | HP.PTDCSUM ---
HP - PT D/C Summary It has been my pleasure to treat BRADLEY GREENFIELD under orders from Gloria Whittington MD, for the diagnosis of SDH for a total of 10 visit(s). Discharge Date: Please see the following information for a summary of their discharge status. - Subjective Subjective: I am ready for discharge. - Pain FONSECA Pain Intensity (Out of 10): 0 rib pain Pain Intensity (Out of 10): 4 - Overall Improvement % Improvement: 80 - Objective Objective/Function: B LE's are now 5/5 throughout. Pt is I with HEP. Pt can ambulate with now AD without difficulty greater than 1000 feet. Pt has achieved all Rx goals - Goals Goal 1:: Increase B LE strength x 1 grade to aid with stair negotiation Goal Progress: Goal Met Goal 2:: Pt will able to ambulate greater than 1000' with LRD to aid with community ambulation Goal Progress: Goal Met Goal 3:: I with HEP Goal Progress: Goal Met - Plan Plan: Discharge - D/C Information If there are questions or concerns regarding this patient's physical therapy, please feel free to call me at [phone]. Thank you for the referral of this patient. Sincerely, Brayan Rosas, PT, ATC
--- NOTE | 2018-11-23 12:28 | HP.SP.DC ---
ST Discharge Summary - Discharged: Discharge: Roger Keys was discharged from speech therapy at [facility] as of October. He attended a total of 8 sessions after his initial evaluation on 09/11/18. He was treated for cognitive deficits following a SDH. He is discharged due to being at baseline per the patient and his . He had minimal word finding deficits during his last sessions and was now able to complete all tasks prior to medical event. He was able to complete tasks appropriately and therapy is no longer warranted. Please see notes for full details. A copy of this discharge summary will be sent to his referring physician.
== END 2018-11-20 19:00 | disposition home or self-care (01) ==
LOC: PT 15:00
PROVIDERS: Family Provider Nurse Practitioner Family; PCP Nurse Practitioner Family; Referring Provider Psychiatry & Neurology Neurology; Visit Provider Psychiatry & Neurology Neurology
DX: I69.114 Frontal lobe and executive function deficit following nontraumatic intracerebral hemorrhage (principal)
CPT/HCPCS: 92507; 92523; 97110; 97127; 97161; 97530; G0515

== ENCOUNTER → 2019-02-03 10:26 | Outpatient (CLI) | payer MEDICAID, SELFPAY ==
[2018-12-31 10:17] VITALS: BMI 34.2
[2019-02-03 12:52] LABS: AST(SGOT) 26 U/L (15-37); Alanine Aminotransfer ALT/SGPT 61 U/L (16-61); Albumin, Serum 3.8 g/dL (3.2-5.0); Alkaline Phosphatase 108 U/L (45-117); Bilirubin, Direct 0.21 mg/dL (0.00-0.30); Cholesterol 96 mg/dL (200); High Density Lipoprotein 35 mg/dL; Protein, Total 6.8 g/dL (6.4-8.2); Triglycerides 112 mg/dL; Very Low Density Lipoprotein 22 mg/dL (5-40)
== END ==
PROVIDERS: Family Provider Nurse Practitioner Family; PCP Nurse Practitioner Family; Referring Provider Internal Medicine Cardiovascular Disease; Visit Provider Internal Medicine Cardiovascular Disease
DX: E78.00 Pure hypercholesterolemia, unspecified (principal)
CPT/HCPCS: 36415; 80061; 80076

== ENCOUNTER → 2019-02-08 12:55 | Outpatient (CLI) | payer MEDICAID, SELFPAY ==
[2018-12-31 10:17] VITALS: BMI 34.2
--- NOTE | 2019-02-08 12:56 | STEWCON_ITS ---
Reason For Study: Pre-Op; CAD Stress Results Protocol: Dobutamine Stress Echo Maximum Predicted HR: 162 bpm Target HR: 138 bpm % Maximum Predicted HR: 88 % DurationHeart Rate Stage (mm:ss) (bpm) BP Comment Baseline 49 126/74No Chest Pain; 5 ML Diluted Definity Given DSE10 MCG 3:00 61 122/54No Chest Pain DSE 20 MCG 3:00 95 129/60No Chest Pain DSE 30 MCG 3:00 122 134/59No Chest Pain; Atropine 0.25 MG IVP DSE 40 MCG 5:47 142 116/52No Chest Pain; Atropine 0.75 MG IVP Recovery 94 118/64No Chest Pain Stress Duration: 14:47 mm:ss Maximum Stress HR: 142 bpm METS: 1 Baseline Echocardiogram Findings The estimated ejection fraction is 65 %. Stress Echo Wall motion Data Resting WM Intermediate WM Stress WM Resting Wall Motion Wall Motion Stress No regional wall motion No regional wall motion abnormalities noted. abnormalities noted. EKG Data The baseline ECG displays normal sinus rhythm. The patient was titrated from 10 mcg to a maximum of 40 mcg of dobutamine during the stress. The maximum heart rate attained was 142 beats per minute. This was 87% of maximum predicted heart rate. At peak infusion, upsloping ST changes only were noted, which did not meet the criteria for ischemia. No clinical angina was noted. Interpretation Summary The estimated ejection fraction is 65 %. Normal, adequate, dobutamine echocardiogram. Negative for ischemia by EKG and echocardiographic criteria. No anginal symptoms noted. Rare PVC and PAC noted. Appropriate blood pressure response to dobutamine. Test terminated due to the attainment of target heart rate. Final LVEF is 75%. Decreased sensitivity due to poor echo windows requiring Definity agent. No complications. The study was technically difficult. Contrast injection was performed. Ordering Physician: Silvio Batista Referring Physician: Leanna Last Performed By: Andie Paz RDCS, RVT
== END ==
PROVIDERS: Family Provider Nurse Practitioner Family; PCP Nurse Practitioner Family; Referring Provider Internal Medicine Cardiovascular Disease; Visit Provider Internal Medicine Cardiovascular Disease
DX: Z01.818 Encounter for other preprocedural examination (principal); I25.10 Atherosclerotic heart disease of native coronary artery without angina pectoris; R00.1 Bradycardia, unspecified; I10 Essential (primary) hypertension; E78.5 Hyperlipidemia, unspecified; Z95.5 Presence of coronary angioplasty implant and graft
CPT/HCPCS: 93017; 93350; J7040; Q9957; A4216; C8928

== ENCOUNTER 2019-03-03 11:00 | Outpatient (RCR) | payer MEDICAID, SELFPAY ==
[2018-12-08 06:37] VITALS: BMI 34.6
--- NOTE | 2018-12-28 14:52 | HP.PTEVAL_ITS ---
Patient's Visit Information BRADLEY GREENFIELD is a 58 year old M referred to Physical Therapy by AILYN Galeas with a diagnosis of subdural intracranial bleed and skull fx from fall. Date of Evaluation: 12/28/18 Physical Therapist: FABY Vera - Visit Plan Frequency: 2x /Week Duration: 4 Weeks Plan: 2X/ week for 4 weeks for LE strengtheing ( hip, knee and ankle), Work on functional balance such as walking bw, sideways, turnin 180 degrees, amb with head turns, stairs. Test on the NeuroCOM and address deficits if they are present. - Subjective Findings: Pt had a fall back in July and he was changing a light bulb and he fell backwards and R leg gave out and he was knocked out. He had a brain bleed, concusion, memory loss, amnesia. The Dr said that he should not have made it because of all the damage that was done. He now has balance issues. He has falled once or twice since then but not lately. He still does not feel comfortable and feels like he could fall. He thinks that it is because his feet and brain does not connect. He has a hard time knowing where his feet are with walking and he reports that he knows that his legs are weak. He knows that he is not back to where he was. Once in awhile he will have dizziness when he lays down. He sleeps in a recliner due to sleep apnea. His feet hurt and are numb. He is uncomfortable waling backwards. He only has 2 steps ontot he porch and he does those with rails. - Objective Gait: walks with shorter stride and slower pace but no evidence of weaving or veering today. FGA: 18. LE MMT: B knee ext 4-/5, B knee flex 4-/5, B hip abd 4/5, B hip flex 4-/5,. Pt is able to heel and toe raise without UE support about 1/2 the normal ROM - Balance Scores Functional Gait Assessment Score: 18 % Disability: 40.0000 - Goals Goal 1:: I HEP Goal Time Frame: 4-6 Weeks Goal 2:: Increase LE strength by 1/2 muscle grade (at time of eval: LE MMT: B knee ext 4-/5, B knee flex 4-/5, B hip abd 4/5, B hip flex 4-/5,. Pt is able to heel and toe raise without UE support about 1/2 the normal ROM) Goal Time Frame: 4-6 Weeks Goal 3:: Increase FGA by 4 points to decrease fall risk (at time of eval score was 18). Goal Time Frame: 4-6 Weeks Goal 4:: Test pt on the NeuroCOM Goal Time Frame: 2-4 Weeks Goal 5:: Pt to subjectively increase his confidence by 25% in his balance ability Goal Time Frame: 4-6 Weeks - Rehabilitation Potential Rehabilitation Potential: Good - Anticipated Interventions Patient/Client Instruction: Educate patient on: Condition, Plan of Care For the Purpose of:: To improve muscle performance and motor function, To improve ability to perform ADL's, To increase tolerance to activity/condition/position, To improve performance and independence with ADL's, To improve ability of physical actions for home/community/work/leisure, To improve gait and locomotor functions, To improve balance, To improve safety with gait Therapeutic Exercise to Include: Strength training, Balance training, Postural training, Gait and locomotor training, via Neurocom Balance Mas For the Purpose of:: To improve muscle performance and motor function, To improve ability to perform ADL's, To increase tolerance to activity/condition/position, To improve performance and independence with ADL's, To improve ability of physical actions for home/community/work/leisure, To improve gait and locomotor functions, To improve balance, To improve safety with gait Thank you for the opportunity to evaluate your patient. For Medicare and Medicare HMO plans, please review the plan of care and approve it. It will need to be FAXED BACK to us at [phone] for Medicare purposes. For Medicare only, by signing this I certify the plan of care. Please let me know if there are questions or concerns regarding this plan of care. Physician Signature: Date:
[2018-12-31 10:17] VITALS: BMI 34.2
--- NOTE | 2019-01-05 13:45 | HP.PTCOM_ITS ---
PT Communication Note 01/05/[address] Maggie Jacobson, IT SECURITY PROJECT MANAGER-C , Thank you for the referral of Roger Keys to our clinic. He was tested on our NeuroCom Equitest system today and enclosed are the patients test results. On the Sensory Organization Test ( SOT) the patients overall score was below age related norms. He had some trouble with the use of his somatosensory, visual, and vestibular systems to help him maintain his balance. He is ankle and hip dominant depending on certain activities and his overall center of gravity is within normal limits. His Motor Controlled Test (MCT) revealed that his overall reaction time is within normal limits. The patient had normal Limits of Stability ( LOS) except for a slight deficit in weight shifting forward. At this point in time we will work on LE strength and vestibular challenges. Sincerely, FABY Vera Contact Information
--- NOTE | 2019-03-03 11:35 | HP.PTDCSUM ---
HP - PT D/C Summary It has been my pleasure to treat BRADLEY GREENFIELD under orders from AILYN Galeas, for the diagnosis of subdural intracranial bleed and skull fx from fall for a total of 12 visit(s). Discharge Date: 03/03/19 Please see the following information for a summary of their discharge status. - Subjective Subjective: Pt is going to have surgery sometime here in [place] and has his assessment there. Pt feels that like his balance is improving. He still has some dizziness and he still has to watch getting up fast from his bed. Pt reports that his confidence in his balance has improved by 40%. He feels that his leg strength is better and he feels his UE strength needs some work. - Overall Improvement % Improvement: 40 - Objective Objective/Function: FGA: 20. LE MMT: B knee ext 4-/5, B knee flex 4-/5, B hip abd 4-/5, B hip flex 4-/5, - Goals Goal 1:: I HEP Goal Progress: Goal Met Goal 2:: Increase LE strength by 1/2 muscle grade (at time of eval: LE MMT: B knee ext 4-/5, B knee flex 4-/5, B hip abd 4/5, B hip flex 4-/5,. Pt is able to heel and toe raise without UE support about 1/2 the normal ROM) Goal Progress: Progressing Goal 3:: Increase FGA by 4 points to decrease fall risk (at time of eval score was 18). Goal Progress: Progressing Goal 4:: Test pt on the NeuroCOM Goal Progress: Goal Met Goal 5:: Pt to subjectively increase his confidence by 25% in his balance ability Goal Progress: Goal Met - Plan Plan: DC PT to HEP. Pt will probably need additional PT after his surgery in [place] - D/C Information Discharge Comments: DC PT to HEP If there are questions or concerns regarding this patient's physical therapy, please feel free to call me at [phone]. Thank you for the referral of this patient. Sincerely, Merari Edwards, MPT
== END 2019-03-03 19:00 | disposition home or self-care (01) ==
LOC: PT 11:00
PROVIDERS: Family Provider Nurse Practitioner Family; PCP Nurse Practitioner Family; Referring Provider Nurse Practitioner Family; Visit Provider Nurse Practitioner Family
DX: I62.00 Nontraumatic subdural hemorrhage, unspecified (principal); S02.91XD Unspecified fracture of skull, subsequent encounter for fracture with routine healing; W19.XXXD Unspecified fall, subsequent encounter
CPT/HCPCS: 97110; 97161; 97530; 97750

== ENCOUNTER → 2019-03-23 11:00 | Outpatient (CLI) | payer MEDICAID, SELFPAY ==
[2019-03-08 07:43] VITALS: BMI 34.2
== END ==
PROVIDERS: Family Provider Nurse Practitioner Family; PCP Nurse Practitioner Family; Referring Provider Nurse Practitioner Acute Care; Visit Provider Nurse Practitioner Acute Care
DX: Z46.89 Encounter for fitting and adjustment of other specified devices (principal)
CPT/HCPCS: 98960; G0463

== ENCOUNTER 2019-06-11 09:57 | Emergency (ER) | payer MEDICAID, SELFPAY ==
[2019-03-08 07:43] VITALS: BMI 34.2
[2019-06-11 10:03] VITALS: BP 126/57; PULSE 64; RESP 16; TEMP 36.8; O2SAT 97; BMI 31.4
--- NOTE | 2019-06-11 10:10 | EKG12_ITS ---
Test Reason : CP Blood Pressure : / mmHG Vent. Rate : 062 BPM Atrial Rate : 062 BPM P-R Int : 186 ms QRS Dur : 104 ms QT Int : 440 ms P-R-T Axes : 049 088 022 degrees QTc Int : 446 ms Normal sinus rhythm Normal ECG Confirmed by BIANCA ORTEGA ([id number]), film editor supervisor KELLY MATTHEW ([id number]) on 06/14/2019 1:06:16 PM Referred By: CARLENE Confirmed By:BIANCA ORTEGA
--- NOTE | 2019-06-11 10:10 | RAD_ITS ---
STUDY: X-RAY CHEST REASON FOR EXAM: Male, 58 years old. Chest heaviness started this am. nausea. Cough, fever TECHNIQUE: Single AP portable view of the chest. COMPARISON: Comparison is made with prior study dated March 06, 2018. FINDINGS: EKG electrodes are seen. Stable elevation of the right hemidiaphragm. There is no demonstrated pleural abnormality. Normal size heart. Normal mediastinum and sb. Normal visualized pulmonary arteries. Normal visualized aortic arch and descending thoracic aorta. There are diffuse degenerative changes of the visualized thoracic spine. Normal visualized ribs, clavicles, and shoulders. There is no demonstrated abnormality of the visualized soft tissue structures of the upper abdomen. RAD/Chest 1 View (Portable) IMPRESSION: Stable examination. No acute abnormality is seen. Electronically Signed: Johnson Verma, at 10:46 EDT , Service support ,
--- NOTE | 2019-06-11 10:11 | ED.DCSUM_ITS ---
- ER Visit Summary Date of Service: 06/11/19 Chief Complaint: Chest pain and not feeling well History of Present Illness: The patient is a 58 M history of CAD, NC with cardiac stents. Also hypertension high cholesterol. Patient's had prior bariatric surgery and a cholecystectomy. States is not really feeling well today has had some mild chest discomfort. Said he has had a cough with subjective fever but his temperature at home was 99.3. He denies being short of breath. He has had nausea but no vomiting or diarrhea. No melena or dysuria. Also states he has had trouble smelling and tasting his food. Physical Examination: Middle-aged male no acute distress. Vital signs are stable. He is afebrile. Pulse ox is 97% on room air no signs of hypoxia. H EENT exam unremarkable. Moist with membranes. Neck nontender. No lymphadenopathy. No JVD. Lungs clear to auscultation bilaterally. Heart regular rhythm no murmur. Abdomen soft nontender. Normal bowel sounds. No peritoneal signs. Patient is moving all 4 extremities. Calves are nontender without edema or cords. Back nontender. Skin unremarkable. Neurologically is awake and alert with no focal motor deficits. Test Results: CBC normal white count 3. Hemoglobin 14. Chemistries normal normal BUN and creatinine. Normal gap. Troponin normal. EKG normal sinus rhythm rate of 62 no signs of NC or ischemia. Chest x-ray no acute process. Normal cardiac silhouette and lungs. No infiltrate. Read both by myself and the radiologist. Portable 1 view. Emergency Department Course and Treatment: Patient describes chest pain he will undergo cardiac work-up. I am actually more concerned clinically this may be an infectious etiology and he could have coated 19. He does not look septic or toxic. He does not look significantly dehydrated. Treatment Plan: Repeat exam patient is doing well at 11:13 AM. He is comfortable being discharged home. I do think he has a viral syndrome. He is comfortable being discharged to home. Disposition: Discharge Impression: Acute chest pain History of CAD, NC and stents Viral Syndrome This note was generated with [employer] dictation software. It may contain incorrect words, spelling, and punctuation that were not noted in review of the chart prior to signing ED Disposition - Plan for ED Patient: Referrals: Leanna Last, MARISOL-C [Primary Care Provider] -
[2019-06-11] MEDS: 0.9% Normal Saline 1,000 ML 1000 ML IV (10:24)
[2019-06-11 10:32] LABS: Absolute Lymphocyte Count 0.44 X10^3/uL (0.83-4.51); Absolute Neutrophil Count 2.9 X10^3/uL (2.0-7.7); Basophil# 0.02 X10^3/uL; Basophil% 0.5 % (0-1); Eosinophil# 0.04 X10^3/uL; Hemoglobin 14.5 g/dL (13.0-16.5); Lymphocyte # 0.44 X10^3/ul (4.0); Lymphocyte % 11.3 % (19-41); Mean Corp Hgb Conc 34.5 g/dL (32-36); Mean Corpuscular Volume 89.9 fL (80-94); Mean Platelet Vol. 10.5 fl (6.2-12.0); Monocyte% 12.8 % (0-10); NRBC Flagged by Analyzer 0 % (0-5); Neutrophil # 2.89 X10^3/uL (2.7-7.7); Neutrophil % 74.1 % (47-70); POSITIVE DIFFERENTIAL YES; Platelet Count 118 K/mm3 (150-450); RBC Distribution Width CV 12.7 % (11.6-14.6); RBC Distribution Width SD 41.1 fl (35.1-43.9); Red Blood Count 4.67 M/mm3 (4.6-6.2); White Blood Count 3.9 K/mm3 (4.4-11.0)
[2019-06-11 10:34] LABS: Differential Indicated SCAN CRITERIA MET
[2019-06-11 10:49] LABS: BUN 20 mg/dL (7-18); Creatinine, Serum 0.92 mg/dL (0.70-1.30); Estimated Creatinine Clearance 84.67 ml/min; Glucose 132 mg/dL (74-106)
[2019-06-11 10:50] LABS: Anion Gap 8 (5-15); BUN/Creat Ratio 21.7 RATIO (10-20); Calcium,Total 9.1 mg/dL (8.5-10.1); Chloride 110 mmol/L (98-107); EST Glomerular Filtration Rate 89 mL/min (>60); Est Glom Filt Rate - Afr Amer 108 mL/min (>60); Potassium 3.9 mmol/L (3.5-5.1); Sodium Level 142 mmol/L (136-145)
[2019-06-11 10:51] LABS: Lactic Acid 1.2 mmol/L (0.4-1.9)
--- NOTE | 2019-06-11 11:21 | ED.DEP ---
ED Disposition - Plan for ED Patient: Disposition: Home or Assisted Living Instructions: ED Chest Pain Atypical Unkn Cause, ED Viral Syndrome Referrals: Leanna Last NP-C [Primary Care Provider] - 3-5 Days Additional Instructions: Fluids and rest. Tylenol for any fevers. Follow-up with your primary care provider. Return to emergency department if you are feeling a lot worse.
[2019-06-11 11:22] VITALS: BP 121/60; PULSE 56; RESP 14; O2SAT 100
[2019-06-14 11:46] LABS: Pathologist Review Reviewed
== END 2019-06-11 11:27 | disposition home or self-care (01) ==
PROVIDERS: Emergency Provider Emergency Medicine; PCP Nurse Practitioner Family
DX: B34.9 Viral infection, unspecified (principal); R07.9 Chest pain, unspecified; I25.10 Atherosclerotic heart disease of native coronary artery without angina pectoris; I10 Essential (primary) hypertension; E78.00 Pure hypercholesterolemia, unspecified; I25.2 Old myocardial infarction; Z98.84 Bariatric surgery status; Z90.49 Acquired absence of other specified parts of digestive tract; Z95.5 Presence of coronary angioplasty implant and graft
CPT/HCPCS: 71045; 80048; 83605; 84484; 85025; 87040; 93005; 96360; 99285; J7030

== ENCOUNTER → 2019-11-17 08:45 | Outpatient (CLI) | payer MEDICAID, SELFPAY ==
[2019-09-29 08:39] VITALS: BMI 31.9
[2019-11-17 09:25] LABS: Absolute Lymphocyte Count 2.35 X10^3/uL (0.83-4.51); Absolute Neutrophil Count 3.1 X10^3/uL (2.0-7.7); Basophil# 0.03 X10^3/uL; Basophil% 0.5 % (0-1); Eosinophil# 0.16 X10^3/uL; Eosinophils% 2.7 % (0-5); Hematocrit 41.2 % (40-54); Hemoglobin 13.7 g/dL (13.0-16.5); Lymphocyte # 2.35 X10^3/ul (4.0); Lymphocyte % 39.2 % (19-41); Mean Corp Hgb Conc 33.3 g/dL (32-36); Mean Corpuscular Hgb 30.4 pg (27.0-32.0); Mean Corpuscular Volume 91.4 fL (80-94); Mean Platelet Vol. 10.8 fl (6.2-12.0); Monocyte# 0.39 X10^3/uL; Monocyte% 6.5 % (0-10); NRBC Flagged by Analyzer 0 % (0-5); Neutrophil # 3.05 X10^3/uL (2.7-7.7); Neutrophil % 50.9 % (47-70); Platelet Count 149 K/mm3 (150-450); RBC Distribution Width CV 12.9 % (11.6-14.6); RBC Distribution Width SD 43.1 fl (35.1-43.9); Red Blood Count 4.51 M/mm3 (4.6-6.2)
[2019-11-17 10:08] LABS: ALB/GLOB Ratio 1.4 RATIO (0.9-2.4); AST(SGOT) 37 U/L (15-37); Alanine Aminotransfer ALT/SGPT 97 U/L (16-61); Albumin, Serum 3.8 g/dL (3.2-5.0); Alkaline Phosphatase 99 U/L (45-117); Anion Gap 3 (5-15); BUN 18 mg/dL (7-18); BUN/Creat Ratio 21.3 RATIO (10-20); Calcium,Total 8.4 mg/dL (8.5-10.1); Chloride 110 mmol/L (98-107); Creatinine, Serum 0.85 mg/dL (0.70-1.30); EST Glomerular Filtration Rate 99 mL/min (>60); Est Glom Filt Rate - Afr Amer 119 mL/min (>60); Free T3 1.5 pg/mL (2.18-3.98); Globulin 2.8 g/dL (2.2-4.2); Glucose 86 mg/dL (74-106); Potassium 3.8 mmol/L (3.5-5.1); Protein, Total 6.6 g/dL (6.4-8.2); Sodium Level 140 mmol/L (136-145); T4 Free Direct 0.85 ng/dL (0.76-1.46); Thyroid Stim Hormone (TSH) 1.41 uIU/mL (0.358-3.74)
== END ==
PROVIDERS: Referring Provider Nurse Practitioner Family; Visit Provider Nurse Practitioner Family
DX: E03.9 Hypothyroidism, unspecified (principal); I25.10 Atherosclerotic heart disease of native coronary artery without angina pectoris; E78.5 Hyperlipidemia, unspecified
CPT/HCPCS: 36415; 80053; 84439; 84443; 84481; 85025

== ENCOUNTER → 2019-12-17 11:52 | Outpatient (CLI) | payer MEDICAID, SELFPAY ==
[2019-12-17 10:54] VITALS: BMI 32.5
[2019-12-17 12:57] LABS: AST(SGOT) 32 U/L (15-37); Alanine Aminotransfer ALT/SGPT 92 U/L (16-61); Albumin, Serum 3.8 g/dL (3.2-5.0); Alkaline Phosphatase 101 U/L (45-117); Bilirubin, Direct 0.24 mg/dL (0.00-0.30); Cholesterol 97 mg/dL (200); Globulin 2.9 g/dL (2.2-4.2); High Density Lipoprotein 55 mg/dL; Protein, Total 6.7 g/dL (6.4-8.2); Triglycerides 55 mg/dL; Very Low Density Lipoprotein 11 mg/dL (5-40)
== END ==
PROVIDERS: Referring Provider Nurse Practitioner Family; Visit Provider Nurse Practitioner Family
DX: R00.1 Bradycardia, unspecified (principal); E78.5 Hyperlipidemia, unspecified
CPT/HCPCS: 36415; 80061; 80076; 93225; 93226

== ENCOUNTER → 2020-01-19 08:48 | Outpatient (CLI) | payer MEDICAID, SELFPAY ==
[2019-12-17 10:54] VITALS: BMI 32.5
[2020-01-19 09:25] LABS: Absolute Lymphocyte Count 2.36 X10^3/uL (0.83-4.51); Absolute Neutrophil Count 3.1 X10^3/uL (2.0-7.7); Basophil# 0.05 X10^3/uL; Basophil% 0.8 % (0-1); Eosinophil# 0.16 X10^3/uL; Eosinophils% 2.6 % (0-5); Hemoglobin 14.4 g/dL (13.0-16.5); Lymphocyte # 2.36 X10^3/ul (4.0); Lymphocyte % 38.9 % (19-41); Mean Corpuscular Hgb 29.9 pg (27.0-32.0); Mean Corpuscular Volume 93.6 fL (80-94); Mean Platelet Vol. 10.5 fl (6.2-12.0); Monocyte# 0.35 X10^3/uL; Monocyte% 5.8 % (0-10); NRBC Flagged by Analyzer 0 % (0-5); Neutrophil # 3.14 X10^3/uL (2.7-7.7); Neutrophil % 51.7 % (47-70); Platelet Count 170 K/mm3 (150-450); RBC Distribution Width CV 13.1 % (11.6-14.6); RBC Distribution Width SD 45.1 fl (35.1-43.9); Red Blood Count 4.81 M/mm3 (4.6-6.2); White Blood Count 6.1 K/mm3 (4.4-11.0)
[2020-01-19 09:46] LABS: Vitamin D,25 Hydroxy 43.7 ng/mL
[2020-01-19 09:53] LABS: ALB/GLOB Ratio 1.3 RATIO (0.9-2.4); AST(SGOT) 33 U/L (15-37); Alanine Aminotransfer ALT/SGPT 76 U/L (16-61); Albumin, Serum 4.1 g/dL (3.2-5.0); Alkaline Phosphatase 114 U/L (45-117); Anion Gap 4 (5-15); BUN 23 mg/dL (7-18); BUN/Creat Ratio 25.5 RATIO (10-20); Calcium,Total 8.9 mg/dL (8.5-10.1); Chloride 110 mmol/L (98-107); Cholesterol 104 mg/dL (200); EST Glomerular Filtration Rate 92 mL/min (>60); Est Glom Filt Rate - Afr Amer 111 mL/min (>60); Globulin 3.2 g/dL (2.2-4.2); Glucose 90 mg/dL (74-106); High Density Lipoprotein 59 mg/dL; Protein, Total 7.3 g/dL (6.4-8.2); Sodium Level 142 mmol/L (136-145); T4 Free Direct 0.83 ng/dL (0.76-1.46); Thyroid Stim Hormone (TSH) 3.22 uIU/mL (0.358-3.74); Triglycerides 53 mg/dL; Very Low Density Lipoprotein 11 mg/dL (5-40)
== END ==
PROVIDERS: Referring Provider Nurse Practitioner Family; Visit Provider Nurse Practitioner Family
DX: I25.10 Atherosclerotic heart disease of native coronary artery without angina pectoris (principal); I10 Essential (primary) hypertension; E55.9 Vitamin D deficiency, unspecified; E78.5 Hyperlipidemia, unspecified; E03.9 Hypothyroidism, unspecified
CPT/HCPCS: 36415; 80053; 80061; 82306; 84439; 84443; 85025

== ENCOUNTER → 2020-04-20 08:45 | Outpatient (CLI) | payer MEDICAID, SELFPAY ==
[2020-03-22 10:40] VITALS: BMI 31.9
[2020-04-19 10:57] LABS: Hematocrit 41.8 % (40-54); Hemoglobin 13.9 g/dL (13.0-16.5); Mean Corp Hgb Conc 33.3 g/dL (32-36); Mean Corpuscular Hgb 30.7 pg (27.0-32.0); Mean Corpuscular Volume 92.3 fL (80-94); Mean Platelet Vol. 10.3 fl (6.2-12.0); Platelet Count 150 K/mm3 (150-450); RBC Distribution Width CV 12.6 % (11.6-14.6); RBC Distribution Width SD 42.5 fl (35.1-43.9); Red Blood Count 4.53 M/mm3 (4.6-6.2); White Blood Count 5.1 K/mm3 (4.4-11.0)
[2020-04-19 11:07] LABS: International Normalized Ratio 1.1; Prothrombin Time (Protime)PT. 13.6 SECONDS (11.7-14.9)
[2020-04-19 11:08] LABS: Partial Thromboplast Time 33.6 Seconds (24.1-36.2)
[2020-04-19 11:14] LABS: Hemoglobin A1c 5.5 % (3.8-5.6)
[2020-04-19 11:33] LABS: Vitamin B12 864 pg/mL (211-911); Vitamin D,25 Hydroxy 45.4 ng/mL
[2020-04-19 12:43] LABS: ALB/GLOB Ratio 1.4 RATIO (0.9-2.4); AST(SGOT) 49 U/L (15-37); Alanine Aminotransfer ALT/SGPT 94 U/L (16-61); Albumin, Serum 3.9 g/dL (3.2-5.0); Alkaline Phosphatase 95 U/L (45-117); Anion Gap 4 (5-15); BUN 22 mg/dL (7-18); BUN/Creat Ratio 24.2 RATIO (10-20); Calcium,Total 8.5 mg/dL (8.5-10.1); Chloride 113 mmol/L (98-107); Creatinine, Serum 0.91 mg/dL (0.70-1.30); EST Glomerular Filtration Rate 91 mL/min (>60); Est Glom Filt Rate - Afr Amer 110 mL/min (>60); Ferritin 226 ng/mL (26-388); Globulin 2.7 g/dL (2.2-4.2); Glucose 107 mg/dL (74-106); Potassium 3.9 mmol/L (3.5-5.1); Prealbumin 22.8 mg/dL (20.0-40.0); Protein, Total 6.6 g/dL (6.4-8.2); Sodium Level 141 mmol/L (136-145); Thyroid Stim Hormone (TSH) 1.62 uIU/mL (0.358-3.74); Uric Acid 4.2 mg/dL (3.5-7.2)
[2020-04-24 12:17] LABS: Vitamin A, Retinol 46.2 ug/dL (20.1-62.0)
== END ==
PROVIDERS: Referring Provider Surgery; Visit Provider Surgery
DX: E65 Localized adiposity (principal); M79.3 Panniculitis, unspecified; N62 Hypertrophy of breast; R63.4 Abnormal weight loss; Z98.84 Bariatric surgery status
CPT/HCPCS: 36415; 80053; 82306; 82607; 82728; 82746; 83036; 84134; 84443; 84550; 84590; 85027; 85610; 85730

== ENCOUNTER → 2020-04-27 14:08 | Outpatient (CLI) | payer MEDICAID, SELFPAY ==
[2020-03-22 10:40] VITALS: BMI 31.9
[2020-04-27 15:33] LABS: Hemoglobin A1c 5.5 % (3.8-5.6)
[2020-05-01 13:51] LABS: Vitamin D 1,25-Dihydroxy 51.5 pg/mL (19.9-79.3)
== END ==
DX: E11.9 Type 2 diabetes mellitus without complications (principal); E55.9 Vitamin D deficiency, unspecified
CPT/HCPCS: 36415; 82306; 82652; 83036

== ENCOUNTER → 2020-05-03 12:00 | Outpatient (CLI) | payer MEDICAID, SELFPAY ==
[2020-03-22 10:40] VITALS: BMI 31.9
[2020-05-05 14:09] LABS: HCV Quant. RNA PCR HCV Not Detected IU/mL (.)
== END ==
PROVIDERS: Referring Provider Family Medicine; Visit Provider Family Medicine
DX: R94.5 Abnormal results of liver function studies (principal)
CPT/HCPCS: 36415; 87522

== ENCOUNTER → 2020-06-14 15:18 | Outpatient (CLI) | payer MEDICAID, SELFPAY ==
[2020-03-22 10:40] VITALS: BMI 31.9
== END ==
PROVIDERS: Referring Provider Surgery; Visit Provider Surgery
DX: Z20.822 Contact with and (suspected) exposure to COVID-19 (principal)
CPT/HCPCS: 87426; C9803

== ENCOUNTER 2020-07-25 14:49 | Observation (INO) | payer MEDICAID, SELFPAY ==
[2020-03-22 10:40] VITALS: BMI 31.9
--- NOTE | 2020-07-21 09:56 | EKG12_ITS ---
Test Reason : PRE-OP Blood Pressure : / mmHG Vent. Rate : 046 BPM Atrial Rate : 046 BPM P-R Int : 196 ms QRS Dur : 108 ms QT Int : 464 ms P-R-T Axes : 060 076 038 degrees QTc Int : 406 ms Sinus bradycardia Otherwise normal ECG Confirmed by JANETTE BEACH, DERIAN ([id number]), communications editor ANDRES JIMENEZ ([id number]) on 07/25/2020 8:38:35 AM Referred By: Milton Lopez Confirmed By:DERIAN SAVAGE MD
[2020-07-21 10:40] LABS: Hematocrit 44.2 % (40-54); Hemoglobin 14.5 g/dL (13.0-16.5); Mean Corp Hgb Conc 32.8 g/dL (32-36); Mean Corpuscular Hgb 30.7 pg (27.0-32.0); Mean Corpuscular Volume 93.4 fL (80-94); Mean Platelet Vol. 10.4 fl (6.2-12.0); Platelet Count 153 K/mm3 (150-450); RBC Distribution Width CV 12.5 % (11.6-14.6); RBC Distribution Width SD 43.2 fl (35.1-43.9); Red Blood Count 4.73 M/mm3 (4.6-6.2); White Blood Count 4.8 K/mm3 (4.4-11.0)
[2020-07-21 11:01] LABS: Hemoglobin A1c 5.3 % (3.8-5.6)
[2020-07-21 11:30] LABS: Anion Gap 4 (5-15); BUN 21 mg/dL (7-18); BUN/Creat Ratio 24.7 RATIO (10-20); Calcium,Total 8.9 mg/dL (8.5-10.1); Chloride 112 mmol/L (98-107); Creatinine, Serum 0.85 mg/dL (0.70-1.30); EST Glomerular Filtration Rate 98 mL/min (>60); Est Glom Filt Rate - Afr Amer 118 mL/min (>60); Glucose 96 mg/dL (74-106); Sodium Level 142 mmol/L (136-145); Thyroid Stim Hormone (TSH) 0.75 uIU/mL (0.358-3.74)
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
[2020-07-25] VITALS (14 sets, daily range): BP systolic 126–140; BP diastolic 46–67; PULSE 45–64; RESP 16–18; TEMP 36.2–37.2; O2SAT 91–100; BMI 32.5
[2020-07-25] MEDS: Lactated Ringers 1,000 ML 100 ML IV ×3 (08:52→13:32)
--- NOTE | 2020-07-25 09:00 | PANN_PTH ---
PATIENT: BRADLEY GREENFIELD LOC: MS3 U#:[id number] AGE/SX: 59/M ROOM: MS316 RE07/25/[address]: Dr. Milton Lopez MD : 1960 BED: 1 DIS: 07/27/2020 SPEC #: [id number] RECD: 07/25/20 11:04 STATUS: FLORENCE SMITHKurt #: [id number] ZION: 07/25/20 09:[address]: Milton Lopez DEPT: SURGICAL PATHOLOGY RECD BY: Nguyen Allen ENTERED: 07/25/20 12:38 SP TYPE: PANNUS ADRIANA DR: Lia Eisenberg, COMMERCIAL ELECTRICIAN-C [facility] Tissues: Abdomen, NOS Procedures: Surgery Specimen Level III HEADER OPERATION: Abdominal panniculectomy PRE-OP DIAGNOSIS: Abdominal panniculus with panniculitis TISSUE SUBMITTED: Abdominal panniculus MICROSCOPIC DIAGNOSIS Abdominal panniculus, panniculectomy: Pieces of skin with underlying tissue with mild chronic inflammation, clinically panniculitis. SEBASTIAN:dottie 07/27/2020 MICROSCOPIC DESCRIPTION Slides are reviewed. GROSS DESCRIPTION Received in fixative is one container labeled with the patient's name and designated abdominal panniculus. The specimen consists of two pieces of skin with underlying tissue measuring 29 x 14 x 4 cm and 28 x 12 x 5 cm. Also present in the container are multiple detached pieces of adipose tissue measuring in aggregate 3 x 2.5 x 1 cm. No obvious skin lesion is identified. Sections do not reveal any mass lesion. Still Operator sections are submitted in four cassettes. / SEBASTIAN:dottie 07/26/20 TC:3 CPT: 65952
[2020-07-25] MEDS: Cefazolin 2 GM in 0.9% Normal Saline 100 ML IV (09:04)
[2020-07-25] MEDS: Lidocaine 1% /Epi 1:100 (20ml) 20 ML Vial (09:39)
[2020-07-25 09:51] LABS: Bedside Glucose 92 mg/dL (70-110)
--- NOTE | 2020-07-25 11:27 | OP.PCM_ITS ---
Problems Associated Problem List Diagnoses (1) Abdominal panniculus: (2) Panniculitis, unspecified: (3) Intertrigo: (4) Gynecomastia, male: (5) Excessive body weight loss: (6) History of gastric bypass: Report of Operation Date of Procedure: 07/25/20 Pre-Operative Diagnosis: 1.? Abdominal panniculus with panniculitis. 2.? Abdominal wall skin crease intertrigo. 3. Excessive body weight loss. 4.? History of gastric bypass surgery. 5. Inframammary intertrigo. 6. Gynecomastia, male. Post-Operative Diagnosis: Same. Surgery/Procedure Performed:: Abdominal panniculectomy. Description of Surgical Findings:: Patient is a 59 year old male who presents today for evaluation for body contouring of his abdomen and breast after massive weight loss from gastric bypass surgery in January 2018 in [place].? He lost about 150 lbs and weighs about 206 lbs at this time.? He had a mammogram on 05/27/19.? It showed both breasts have increased in density and increased in size due to gynecomastia that correlates with clinical concern.? There are benign scattered calcifications both breasts.? No significant masses, calcifications, or other findings are seen in either breast.? He had an MRI Pituitary on 09/20/19.? It showed normal MRI of the pituitary gland.? No pathologic enhancement noted.? He presents today for further evaluation and treatment.? He states he obtained medical approval for the surgery which was to be done in [place].? However at the last minute right before surgery, it was cancelled since the surgeon suddenly left the practice. He had gynecomastia labs done including Estradiol of 36.6, FSH of 22.2, LH of 24.4, Prolactin of 3.2, Beta hCG of <1, Free T4 of 0.9,? LD of 230, Testosterone of 620, and TSH of 2.870. He had more recent labs in April, including Uric Acid of 4.2, Ferritin of 226, Prealbumin of 22.8, Vitamin B12 of 864, Folate of 85.80, Total Bilirubin of 0.50, AST of 49, ALT of 94, Alkaline Phosphatase of 95, Albumin of 2.3, Total Protein of 6.6, INR of 1.1, PTT of 33.6, Vitamin D of 51.5, and TSH of 0.75. Recent BMP of 07/21/20 showed a Potassium of 4.0, BUN/Creatinine of 21/0.85, and HgbA1c of 5.3. Patient was informed of the risks and complications of the procedure including alternatives to surgery. These were discussed with the patient personally. Patient voices understanding and wishes to proceed. Some of the risks and complications were included in a form from the [employer]. Potential risks and complications included but not inclusive of bleeding, infection seroma, hematoma, bruising, swelling, prolonged need for drains, loss of sensation to skin, partial or complete loss of skin flap and/or nipple graft, wound breakdown, need for wound care, poor scarring, poor aesthetic outcome, intra operative cardiac or neurologic events, DVT, PE, and reaction to anesthesia. I used Germán absorbable hemostat, (I used 2 vials). Reference Number - [id number]. Lot Number - [id number]. Expiration - December 12, 2024. Reference Number - [id number]-GSE. Lot Number - [id number]. Expiration - February 11, 2025. shovel handle assembler: Leonidas Hale Type of Anesthesia: General Specimen's removed: Abdominal panniculus to Pathology. Drains: Dale x2. Estimated Blood Loss (mL): 250. Description of Procedure: Patient was taken to OR in supine position and was placed under general anesthesia.? The abdominal wall was prepped and draped in the usual fashion.? SCD's were placed for DVT prophylaxis.? Perioperative antibiotics were given intravenously.?? The abdominal wall skin crease was marked in the operating room.? Using xylocaine with epinephrine, this marking was infiltrated.? After waiting 5 minutes for the anesthetic to take effect,? I made a horizontal incision through the marking in the abdominal wall skin crease by the pubic area down through Nara's fascia until the abdominal wall fascia was seen.? I dissected the abdominal wall skin flap up toward the umbilicus.? I elevated the patient's head about 30 degrees and pulled the abdominal wall skin down toward the pubic area.? I then marked the upper portion of the abdominal panniculus to be excised.? Incision was made and dissection was carried down through Nara's fascia down to the abdominal wall fascia.? Hemostasis was obtained using electrocautery.? The wound was irrigated with saline.? The horizontal elliptical excision of the abdominal panniculus was excised and will be sent to Pathology for analysis to rule out carcinoma.? I placed two size 15 Dale drains through separate stab incisions laterally and secured to the skin edge with 3-0 Nylon suture.? I sprayed Germán absorbable hemostat into the abdominal wall wound to minimize seroma formation.? I used 2 vials.? I then closed the abdominal panniculectomy wound in a multiple layered fashion with 2-0 Vicryl figure of eight interrupted sutures for the underlying Nara's fascia.? ? The deep dermis and subcutaneous tissue was approximated with 2-0 Vicryl interrupted sutures and 3-0 Monocryl interrupted sutures.? The skin was approximated with 3-0 V lock unidirectional barbed running subcuticular suture.? This was followed by Histoacryl skin tissue adhesive. ? Kerlix gauze was applied to the incision followed by an abdominal binder. Patient tolerated the procedure well and was sent to PACU in satisfactory condit ion.? Patient will be sent upstairs for continued postop care. He will be discharged once she is tolerating po analgesia and is steady on her feet with ambulation.? Drains will be removed in the office after discharge.? He will wear his abdominal binder for several weeks postoperatively. Grafts/Implants Used: Germán. Complications None. Admit VTE Documentation VTE Present on Admission: No VTE Mechan Device Prophylaxis: SCD's VTE Pharm Prophylaxis ordered?: Yes Addendum Addendum: Surgery Charges CPT - 69374 ICD-10 - E65, M79.3, R63.4, Z98.84, L30.4, N62
[2020-07-25 12:11] LABS: Bedside Glucose 117 mg/dL (70-110)
[2020-07-25] MEDS: Lactated Ringers 1,000 ML 60 ML IV (14:54)
[2020-07-25] MEDS: Cefazolin 1 GM/50 ML BAG IV ×2 (15:41→22:25)
[2020-07-25] MEDS: Docusate Sodium 100 MG Capsule PO (22:26)
[2020-07-25] MEDS: Topiramate 25 MG Tablet 75 MG PO (22:27)
[2020-07-25] MEDS: Atorvastatin Calcium 40 MG Tablet PO (22:28)
[2020-07-26] VITALS (9 sets, daily range): BP systolic 122–131; BP diastolic 38–66; PULSE 59–70; RESP 16–18; TEMP 36.8–37.3; O2SAT 94–98
[2020-07-26] MEDS: oxyCODONE 5 MG Tablet 10 MG PO (02:32)
[2020-07-26] MEDS: diazePAM 5 MG Tablet PO (03:04)
[2020-07-26] MEDS: Cefazolin 1 GM/50 ML BAG IV ×3 (06:26→22:30)
[2020-07-26] MEDS: Levothyroxine 100 MCG Tablet PO (06:26)
[2020-07-26] MEDS: Enoxaparin 40 MG/0.4 ML Syringe SC (06:26)
[2020-07-26] MEDS: Lactated Ringers 1,000 ML 60 ML IV (06:26)
[2020-07-26 06:31] LABS: Hematocrit 36.3 % (40-54); Hemoglobin 12.1 g/dL (13.0-16.5); Mean Corp Hgb Conc 33.3 g/dL (32-36); Mean Corpuscular Hgb 30.6 pg (27.0-32.0); Mean Corpuscular Volume 91.9 fL (80-94); Mean Platelet Vol. 11.3 fl (6.2-12.0); Platelet Count 160 K/mm3 (150-450); RBC Distribution Width CV 12.2 % (11.6-14.6); RBC Distribution Width SD 41.4 fl (35.1-43.9); Red Blood Count 3.95 M/mm3 (4.6-6.2); White Blood Count 7.8 K/mm3 (4.4-11.0)
[2020-07-26 07:05] LABS: Anion Gap 6 (5-15); BUN 15 mg/dL (7-18); BUN/Creat Ratio 21.5 RATIO (10-20); Calcium,Total 8.2 mg/dL (8.5-10.1); Chloride 111 mmol/L (98-107); EST Glomerular Filtration Rate 123 mL/min (>60); Est Glom Filt Rate - Afr Amer 148 mL/min (>60); Estimated Creatinine Clearance 102.54 ml/min; Glucose 129 mg/dL (74-106); Potassium 3.8 mmol/L (3.5-5.1); Prealbumin 15.3 mg/dL (20.0-40.0); Sodium Level 141 mmol/L (136-145)
[2020-07-26] MEDS: Pantoprazole Sodium 20 MG Tablet PO (09:42)
[2020-07-26] MEDS: Docusate Sodium 100 MG Capsule PO ×2 (09:42→22:30)
[2020-07-26] MEDS: Citalopram 20 MG Tablet PO (09:43)
[2020-07-26] MEDS: Topiramate 25 MG Tablet 75 MG PO ×2 (09:44→22:30)
[2020-07-26] MEDS: Cholecalciferol (VIT D3) 25 MCG TABLET (1,000 UNITS) 50 MCG PO (09:44)
[2020-07-26] MEDS: Calcium Carb/Vitamin D 1 TABLET Tablet PO (09:45)
[2020-07-26] MEDS: Multivitamins,Ther W-Minerals Tablet 1 TABLET PO (09:45)
--- NOTE | 2020-07-26 13:46 | NURSING ---
pt remains lethargic, will monitor, CPS here and placed home c-pap on pt
--- NOTE | 2020-07-26 14:18 | PCM.PN.SRG ---
Subjective Subjective Postop day #1 Patient is sleeping in chair. He has been very sleepy today. Objective Data Objective Data Vital Signs: Vital Signs Temp Pulse Resp BP Pulse Ox 98.9 F 62 18 128/61 H 98 07/26/20 10:40 07/26/20 10:40 07/26/20 10:40 07/26/20 10:40 07/26/20 10:40 Oxygen Flow Rate (L/min) 2 Oxygen Delivery Method Room Air Weight: 207 lb 10.807 oz Body Mass Index (BMI) 32.5 Intake & Output: Intake and Output for Last 24 Hours 07/24/20 07/25/20 07/26/20 23:59 23:59 23:59 Intake Total 2346.67 / 2446.67 1607 / 1607 Output Total 161 / 286 550 / 550 Balance 2185.67 / 2160.67 1057 / 1057 Dale drains : Left 10 ml, right 15 ml Lab / Micro Data Result Diagrams: 07/26/20 05:44 07/26/20 05:44 Labs: Laboratory Results - last 24 hr 07/26/20 07/26/20 05:44 05:44 WBC 7.8 RBC 3.95 L Hgb 12.1 L Hct 36.3 L MCV 91.9 MCH 30.6 MCHC 33.3 RDW Std Deviation 41.4 RDW Coeff of Johann 12.2 Plt Count 160 MPV 11.3 Sodium 141 Potassium 3.8 Chloride 111 H Carbon Dioxide 24.0 Anion Gap 6 BUN 15 Creatinine 0.70 Estim Creat Clear Calc 102.54 Est GFR (MDRD) Af Amer 148 Est GFR (MDRD) Non-Af 123 BUN/Creatinine Ratio 21.5 H Glucose 129 H Calcium 8.2 L Prealbumin 15.3 L Physical Exam Const Constitutional Narrative: Patient is extremely tired. He is difficult to wake up. He has a hard time keeping his eyes open. He will wake up and follow commands. He is appropriate when he answers questions. Resp normal respiratory effort and clear to auscultation bilaterally Cardio regular rate and regular rhythm GI normal to inspection, nondistended, normoactive bowel sounds GI Narrative: His abdomen is tender where his incision is located. Palpation: tender Extremity normal to inspection General Extremity: Negative for edema Skin Wound Narrative: Lower abdominal ulcer operative dressing removed. Incision is dry and intact. Kerlix gauze placed onto incision. Dale drains intact, draining serosanguineous drainage. Neuro Sensorium / Orientation: lethargic and somnolent Speech: speech normal Motor Exam: muscle tone normal throughout Assessment & Plan Assessment/Plan (1) Abdominal panniculus: (2) Intertrigo: (3) History of gastric bypass: (4) Excessive body weight loss: (5) Diabetes type 2, uncontrolled: PLAN: Patient is extremely tired. He is difficult to wake up, but does not require sternal rubbing. We have discontinued his IV dilaudid, stopped valium and decreased Oxycodone from 10 mg to 5 mg to see if this will help with his fatigue. Start him on Tylenol as needed. When he does wake up he is oriented x 3. Operative dressing removed. Incision is dry and intact. Dale drains intact draining serosanguineous drainage. Left has drained 10 ml, right has drained 15 ml. Kerlix dressing placed along incision line. Abdominal binder in place. Receiving Cefazolin IV q8 hours. Encouraged oral intake since patient is not eating or drinking without encouragement. Prealbumin 15.3. Due to him being so fatigued, we will not discharge him today. Hopefully he will become more awake to be discharged tomorrow. Encouraged using his home CPAP while sleeping. Procedures Integumentary [id number]: [id number] Global Visit
[2020-07-26] MEDS: Acetaminophen 325 MG Tablet 650 MG PO (17:50)
[2020-07-26] MEDS: Vitamin B Comp W-C Capsule 1 CAP PO (17:51)
[2020-07-26] MEDS: Atorvastatin Calcium 40 MG Tablet PO (22:30)
[2020-07-27] MEDS: Lactated Ringers 1,000 ML 60 ML IV (00:59)
[2020-07-27 02:55] VITALS: BP 153/57; PULSE 57; RESP 18; TEMP 37.1; O2SAT 98
[2020-07-27 03:04] VITALS: PULSE 57
[2020-07-27] MEDS: oxyCODONE 5 MG Tablet PO (06:46)
[2020-07-27] MEDS: Acetaminophen 325 MG Tablet 650 MG PO (06:46)
[2020-07-27] MEDS: Enoxaparin 40 MG/0.4 ML Syringe SC (06:46)
[2020-07-27] MEDS: Cefazolin 1 GM/50 ML BAG IV (06:47)
[2020-07-27] MEDS: Levothyroxine 100 MCG Tablet PO (06:47)
[2020-07-27 08:01] VITALS: O2SAT 95
[2020-07-27 09:00] VITALS: BP 118/61; PULSE 60; RESP 18; TEMP 36.7; O2SAT 96
[2020-07-27] MEDS: Topiramate 25 MG Tablet 75 MG PO (09:42)
[2020-07-27] MEDS: Pantoprazole Sodium 20 MG Tablet PO (09:42)
[2020-07-27] MEDS: Citalopram 20 MG Tablet PO (09:42)
[2020-07-27] MEDS: Docusate Sodium 100 MG Capsule PO (09:42)
[2020-07-27] MEDS: Cholecalciferol (VIT D3) 25 MCG TABLET (1,000 UNITS) 50 MCG PO (09:43)
[2020-07-27] MEDS: Multivitamins,Ther W-Minerals Tablet 1 TABLET PO (09:44)
[2020-07-27] MEDS: Vitamin B Comp W-C Capsule 1 CAP PO (09:44)
[2020-07-27] MEDS: Calcium Carb/Vitamin D 1 TABLET Tablet PO (09:44)
--- NOTE | 2020-07-27 10:08 | PN.SURG_ITS ---
Subjective Subjective Postop day #2 Patient resting in bed. Awakens easier than yesterday. Objective Data Objective Data Vital Signs: Vital Signs Temp Pulse Resp BP Pulse Ox 98.0 F 60 18 118/61 96 07/27/20 09:00 07/27/20 09:00 07/27/20 09:00 07/27/20 09:00 07/27/20 09:00 Oxygen Flow Rate (L/min) 2 Oxygen Delivery Method Room Air Weight: 207 lb 10.807 oz Body Mass Index (BMI) 32.5 Intake & Output: Intake and Output for Last 24 Hours 07/25/20 07/26/20 07/27/20 23:59 23:59 23:59 Intake Total 2346.67 / 2446.67 3157 / 3257 250 / 250 Output Total 161 / 286 970 / 1470 820 / 820 Balance 2185.67 / 2160.67 2187 / 1787 -570 / -570 Dale drains: Left 35/45 cc total, Right 65 ml/80 cc total. Lab / Micro Data Result Diagrams: 07/26/20 05:44 07/26/20 05:44 Physical Exam Const oriented x3 Constitutional Narrative: Patient sleeping in bed. He does awaken easier than he did yesterday. HEENT normocephalic Eyes PERRL Resp normal respiratory effort Cardio regular rate GI soft to palpation and non-tender GI Narrative: Abdomen non-tender but he is tender around his incision site. external exam normal Extremity normal to inspection Skin Wound Narrative: Lower abdominal incision is dry and intact. Dale drains intact, draining serosanguineous drainage. Kerlix dressing changed. Abdominal binder in place. Neuro oriented x3 and moves all extremities Sensorium / Orientation: alert, oriented to person, oriented to place and orie nted to time Speech: speech normal Motor Exam: strength 5/5 throughout Psych mental status grossly normal Assessment & Plan Assessment/Plan (1) Abdominal panniculus: (2) Intertrigo: (3) History of gastric bypass: (4) Panniculitis, unspecified: (5) Excessive body weight loss: PLAN: Patient is extremely tired.? He awakens easier than he did yesterday. He states he is having pain 7/10, although he falls asleep if he is not being spoken to. He was medicated this morning with OxyIR 5 mg and Acetaminophen. When he does wake up he is oriented x 3. Dressing changed this morning. Incision is dry and intact.?Minimal drainage from the incision on the right side. Dale drains intact draining serosanguineous drainage. Left has drained 35 ml (45 cc total), right has drained 65 ml (80 ml total).? Kerlix dressing placed along incision line.? Abdominal binder in place. Instructed he needs to wear the Abdominal binder at all times except for bathing. Receiving Cefazolin IV q8 hours. Will discharge him home on Cefadroxil. Encouraged oral intake since patient is not eating or drinking without encouragement. Encouraged increased protein intake to help with wound healing. Prealbumin 15.3. Will order PT to evaluate him and to make sure he is stable on his feet to be discharged home today. Plan on discharging him later today. Procedures Integumentary [id number]: [id number] Global Visit
--- NOTE | 2020-07-27 10:23 | PCM.DC ---
Discharge Instructions Diet Discharge Diet: - (Diabetic diet with increased protein. ) Activity Discharge Activity: May Not Drive, May not drive while taking narcotic pain medications., May Not Shower (until drains removed) and Use Walker (as needed) May resume sexual activity in: 10-14 days Lifting Restrictions: 20 lb lifting restriction Dressing / Incision Call your doctor if your incision/area has: Continuous Slow Oozing, Sudden Increased Bleeding, Increased Pain/ Swelling, Increased Redness, Foul Smelling Discharge and Swelling at the incision site Call your doctor if you observe: Fever of 101 or Higher, Inability to urinate, Inability to have a bowel movement, Shortness of breath, Chest pain, Calf discomfort and Uncontrolled pain Suture Line Care: Avoid Pulling/Pushing Change Dressing in: 2 days (May change dressing every other day) Cleanse incision/area with: Soap & Water (Do not get drain insertion site wet) and Keep Dressing Clean & Dry Drain: Suction (bulb suction) Additional Dressing/Incision Instructions:: Record daily output from each drain and bring with you to postop appointment Follow Up Care Please Follow Up With: Dr. Lopez/Chasidy When: one week [phone] - call for appointment Test Results: Test results from this visit will be discussed in further detail at your follow-up appointment, if applicable. Discharge Plan Admission Admit Date/Time: 07/25/20 14:49 Primary Reason for Your Visit: Abdominal panniculectomy Attending Provider: Milton Lopez [facility] Consulting Providers: Lia Eisenberg Discharge Orders/Prescriptions Prescriptions: No Action cholecalciferol (vitamin D3) [Vitamin D3] 2,000 unit capsule 2,000 unit PO DAILY RF: 0 vitamin B complex Capsule 1 cap PO BID RF: 0 topiramate 50 mg tablet 75 mg PO BID RF: 0 zinc 50 mg tablet 50 mg PO DAILY RF: 0 melatonin 3 mg tablet 3 mg PO QHS PRN (Reason: Sleep) RF: 0 atorvastatin 40 MG tablet 40 mg PO QHS Qty: 30 RF: 3 levothyroxine 100 MCG tablet 100 mcg PO DAILY@0600 Qty: 30 RF: 3 citalopram 20 MG tablet 20 mg PO DAILY Qty: 30 RF: 3 multivitamin with folic acid 1 TABLET tablet 1 tab PO DAILY@0800 Qty: 30 RF: 1 omeprazole 20 MG capsule 20 mg PO DAILY Qty: 30 RF: 3 calcium carbonate-vitamin D3 1 EACH tablet 1 ea PO DAILY RF: 0 oxycodone-acetaminophen [Percocet] 5-325 mg tablet 1 tab PO 4X/DAY PRN (Reason: pain (scale score 7-10)) 7 Days Qty: 28 RF: 0 cefadroxil 500 mg capsule 500 mg PO BID 14 Days Qty: 28 RF: 0 docusate sodium [Colace] 100 mg capsule 100 mg PO .1-2 x/day PRN (Reason: constipation) 15 Days Qty: 30 RF: 0 Referrals / Follow Up: Chasidy Nichole NP, [employer] [facility] [Nurse Practitioner] - [facility] [Primary Care Provider] - Disposition Disposition (needs filled in before D/C Order can be placed): Home, self care
--- NOTE | 2020-07-27 11:04 | PCM.DC ---
Discharge Instructions Follow Up Care Test Results: Test results from this visit will be discussed in further detail at your follow-up appointment, if applicable. Discharge Plan Admission Admit Date/Time: 07/25/20 14:49 Attending Provider: Milton Lopez [facility] Providers: Lia Eisenberg Discharge Orders/Prescriptions Prescriptions: No Action cholecalciferol (vitamin D3) [Vitamin D3] 2,000 unit capsule 2,000 unit PO DAILY RF: 0 vitamin B complex Capsule 1 cap PO BID RF: 0 topiramate 50 mg tablet 75 mg PO BID RF: 0 zinc 50 mg tablet 50 mg PO DAILY RF: 0 melatonin 3 mg tablet 3 mg PO QHS PRN (Reason: Sleep) RF: 0 atorvastatin 40 MG tablet 40 mg PO QHS Qty: 30 RF: 3 levothyroxine 100 MCG tablet 100 mcg PO DAILY@0600 Qty: 30 RF: 3 citalopram 20 MG tablet 20 mg PO DAILY Qty: 30 RF: 3 multivitamin with folic acid 1 TABLET tablet 1 tab PO DAILY@0800 Qty: 30 RF: 1 omeprazole 20 MG capsule 20 mg PO DAILY Qty: 30 RF: 3 calcium carbonate-vitamin D3 1 EACH tablet 1 ea PO DAILY RF: 0 [facility] -
--- NOTE | 2020-07-27 12:10 | CASEMGMT ---
GEREMIAS CÁRDENAS NOTE: Pt being discharged home today. PT notes have been reviewed. No additional therapy recommended. RN CM to room to talk w/pt and who is at bedside. Pt/ asked questions re: dsg changes and drain. RN MELIA informed them that RN would review these instructions and do teaching with them prior to discharge to ensure they are comfortable w/same. They voice understanding. They deny any discharge planning needs. Jayden CAZARESN GEREMIAS CM
[2020-07-27 13:55] VITALS: BP 131/69; PULSE 84; RESP 16; TEMP 36.7; O2SAT 95
--- NOTE | 2020-07-27 14:46 | PHA.DC.MC ---
Pharmacy Service has performed discharge medication reconciliation and counseling for this patient. The patient was counseled on the following discharge medications and changes in medications for homegoing were reviewed. 1. percocet 2. cefadroxil The Reason for Use, instructions for use, and potential side effects were reviewed for all new medications. The patient's questions regarding all of their medications were answered. The patient was able to verbally demonstrate an understanding of their discharge medications. Home Medications atorvastatin 40 mg PO QHS #30 tab 08/20/18 citalopram 20 mg PO DAILY #30 tab 08/20/18 levothyroxine 100 mcg PO DAILY@0600 #30 tab 08/20/18 multivitamin with folic acid 1 tab PO DAILY@0800 #30 tab 08/20/18 omeprazole 20 mg PO DAILY #30 cap 08/20/18 cholecalciferol (vitamin D3) 50 mcg (2,000 unit) capsule 2,000 unit PO DAILY cap 12/31/18 vitamin B complex 1 cap PO BID 12/31/18 melatonin 3 mg tablet 3 mg PO QHS PRN tab 03/22/20 topiramate 50 mg tablet 75 mg PO BID tab 03/22/20 zinc 50 mg tablet 50 mg PO DAILY 03/22/20 calcium carbonate-vitamin D3 1 ea PO DAILY 05/09/20 cefadroxil 500 mg capsule 500 mg PO BID 14 Days #28 cap 07/27/20 docusate sodium 100 mg capsule 100 mg PO .1-2 x/day PRN 15 Days #30 cap 07/27/20 oxycodone-acetaminophen 5 mg-325 mg tablet 1 tab PO 4X/DAY PRN 7 Days #28 tab 07/27/20
== END 2020-07-27 15:09 | disposition home or self-care (01) ==
LOC: SDC 07-26 07:51 → MS3 07-26 07:51
PROVIDERS: Anesthesiology; Admitting Provider Surgery; Referring Provider Surgery; Visit Provider Surgery
PROC: 0JB80ZZ Excision of Abdomen Subcutaneous Tissue and Fascia, Open Approach (ICD-10-PCS; CPT 15830; principal; 2020-07-25 08:45)
DX: M79.3 Panniculitis, unspecified (principal); I10 Essential (primary) hypertension; G47.33 Obstructive sleep apnea (adult) (pediatric); E78.5 Hyperlipidemia, unspecified; I25.10 Atherosclerotic heart disease of native coronary artery without angina pectoris; E66.9 Obesity, unspecified; L30.4 Erythema intertrigo; E03.9 Hypothyroidism, unspecified; K21.9 Gastro-esophageal reflux disease without esophagitis; E11.40 Type 2 diabetes mellitus with diabetic neuropathy, unspecified; Z87.820 Personal history of traumatic brain injury; Z98.84 Bariatric surgery status; Z79.899 Other long term (current) drug therapy; F32.9 Major depressive disorder, single episode, unspecified; N62 Hypertrophy of breast; K44.9 Diaphragmatic hernia without obstruction or gangrene
CPT/HCPCS: 00802; 15830; 36415; 80048; 82962; 83036; 84134; 84443; 85027; 88304; 88305; 93005; 94762; 96365; 96366; 96372; 97162; 99218; 99251; J7120; G0378; G0379; G0463; J2405

== ENCOUNTER → 2020-09-25 10:05 | Outpatient (CLI) | payer MEDICAID, SELFPAY ==
[2020-09-20 10:41] VITALS: BMI 32.5
[2020-09-25 11:33] LABS: ALB/GLOB Ratio 1.4 RATIO (0.9-2.4); AST(SGOT) 31 U/L (15-37); Alanine Aminotransfer ALT/SGPT 61 U/L (16-61); Albumin, Serum 3.6 g/dL (3.2-5.0); Alkaline Phosphatase 96 U/L (45-117); Anion Gap 3 (5-15); BUN 22 mg/dL (7-18); BUN/Creat Ratio 25.2 RATIO (10-20); Calcium,Total 8.4 mg/dL (8.5-10.1); Chloride 111 mmol/L (98-107); Cholesterol 101 mg/dL (200); Creatinine, Serum 0.87 mg/dL (0.70-1.30); EST Glomerular Filtration Rate 95 mL/min (>60); Est Glom Filt Rate - Afr Amer 115 mL/min (>60); Globulin 2.6 g/dL (2.2-4.2); Glucose 97 mg/dL (74-106); High Density Lipoprotein 53 mg/dL; PSA,Total - Annual Screen 0.22 ng/mL (0.00-4.00); Protein, Total 6.2 g/dL (6.4-8.2); Sodium Level 142 mmol/L (136-145); Thyroid Stim Hormone (TSH) 1.52 uIU/mL (0.358-3.74); Triglycerides 65 mg/dL; Very Low Density Lipoprotein 13 mg/dL (5-40)
[2020-09-25 11:43] LABS: Microalbumin,Random Urine 11.1 mg/L (NO RANGE EST.); Microalbumin:Creatinine Ratio 8.4 mg/g CRE (<30 mg/g CRE)
== END ==
PROVIDERS: Referring Provider Nurse Practitioner Adult Health; Visit Provider Nurse Practitioner Adult Health
DX: E11.42 Type 2 diabetes mellitus with diabetic polyneuropathy (principal); E03.9 Hypothyroidism, unspecified; Z12.5 Encounter for screening for malignant neoplasm of prostate
CPT/HCPCS: 36415; 80053; 80061; 82043; 82570; 84153; 84443; G0103

== ENCOUNTER → 2020-10-18 12:49 | Outpatient (CLI) | payer MEDICAID, SELFPAY ==
[2020-10-03 09:31] VITALS: BMI 32.5
[2020-10-18 11:25] LABS: Hematocrit 43.5 % (40-54); Hemoglobin 14.1 g/dL (13.0-16.5); Mean Corp Hgb Conc 32.4 g/dL (32-36); Mean Corpuscular Hgb 30.3 pg (27.0-32.0); Mean Corpuscular Volume 93.5 fL (80-94); Platelet Count 146 K/mm3 (150-450); RBC Distribution Width CV 12.5 % (11.6-14.6); RBC Distribution Width SD 43.4 fl (35.1-43.9); Red Blood Count 4.65 M/mm3 (4.6-6.2); White Blood Count 5.3 K/mm3 (4.4-11.0)
[2020-10-18 11:32] LABS: Partial Thromboplast Time 40.1 Seconds (24.1-36.2)
[2020-10-18 11:53] LABS: Magnesium 1.9 mg/dL (1.6-2.6)
== END ==
PROVIDERS: Anesthesiology; Referring Provider Surgery; Visit Provider Surgery
DX: Z01.818 Encounter for other preprocedural examination (principal)
CPT/HCPCS: 36415; 83735; 85027; 85730

== ENCOUNTER 2021-01-24 20:31 | Observation (INO) | payer MEDICAID, SELFPAY ==
[2021-01-18 13:31] LABS: Hematocrit 40.2 % (40-54); Hemoglobin 13.2 g/dL (13.0-16.5); Mean Corp Hgb Conc 32.8 g/dL (32-36); Mean Corpuscular Hgb 29.9 pg (27.0-32.0); Mean Corpuscular Volume 91.2 fL (80-94); Mean Platelet Vol. 10.9 fl (6.2-12.0); Platelet Count 147 K/mm3 (150-450); RBC Distribution Width CV 13.3 % (11.6-14.6); RBC Distribution Width SD 44.5 fl (35.1-43.9); Red Blood Count 4.41 M/mm3 (4.6-6.2); White Blood Count 5.3 K/mm3 (4.4-11.0)
[2021-01-18 14:02] LABS: Anion Gap 5 (5-15); BUN 16 mg/dL (7-18); BUN/Creat Ratio 18.1 RATIO (10-20); Calcium,Total 8.5 mg/dL (8.5-10.1); Chloride 109 mmol/L (98-107); Creatinine, Serum 0.88 mg/dL (0.70-1.30); EST Glomerular Filtration Rate 93 mL/min (>60); Est Glom Filt Rate - Afr Amer 113 mL/min (>60); Glucose 101 mg/dL (74-106); Potassium 4.4 mmol/L (3.5-5.1); Sodium Level 141 mmol/L (136-145); Thyroid Stim Hormone (TSH) 1.35 uIU/mL (0.358-3.74)
[2021-01-24] VITALS (9 sets, daily range): BP systolic 115–144; BP diastolic 46–66; PULSE 50–74; RESP 16–18; TEMP 35.7–36.6; O2SAT 96–100; BMI 33.8; BMI 33.9
[2021-01-24] MEDS: Gabapentin 600 MG Tablet PO (09:24)
[2021-01-24] MEDS: Acetaminophen 500 MG Tablet 1000 MG PO (09:24)
[2021-01-24] MEDS: Scopolamine 1mg/72hr Patch 1 PATCH TD (09:24)
[2021-01-24] MEDS: Lactated Ringers 1,000 ML 40 ML IV (09:25)
[2021-01-24] MEDS: Insulin Lispro 100 UNIT/ML INSULN.PEN SC (09:30)
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
[2021-01-24] MEDS: Lactated Ringers 1,000 ML 60 ML IV (10:40)
--- NOTE | 2021-01-24 10:55 | BR_PTH ---
PATIENT: BRADLEY GREENFIELD LOC: MS2 U#:[id number] AGE/SX: 60/M [place] [facility] [place] RE01/24/[address]: Dr. Milton Lopez MD : 1960 BED: 1 DIS: 01/26/2021 SPEC #: [id number] RECD: 01/25/21 07:11 STATUS: FLORENCE REKurt #: [id number] ZION: 01/24/21 10:[address]: Milton Lopez DEPT: SURGICAL PATHOLOGY RECD BY: Nguyen Allen ENTERED: 01/25/21 12:31 SP TYPE: MAMOPLASTY OTHR DR: Lia Eisenberg, SUPERVISOR PRE WAVE-C [facility] Tissues: A - Right breast, NOS B - Left breast, NOS Procedures: Surgery Specimen Level IV HEADER OPERATION: ERAS, mastectomy PRE-OP DIAGNOSIS: Gynecomastia TISSUE SUBMITTED: A ? Right breast tissue, B ? Left breast tissue MICROSCOPIC DIAGNOSIS A. Right breast tissue, mastectomy: Fragments of fiboradipose tissue (945 gm). Skin, no pathologic diagnosis. B. Left breast tissue, mastectomy: Fragments of fibroadipose tissue (1097 gm). Skin, no pathologic diagnosis. Benign fatty lymph nodes with reactive changes. See comment. SEBASTIAN:dottie 01/29/2021 COMMENT A & B. Male breast tissue is not identified in the sections examined. MICROSCOPIC DESCRIPTION Slides are reviewed. GROSS DESCRIPTION A - Received in fixative is one container labeled with the patient's name and designated right breast tissue. The specimen consists of multiple pieces of fibroadipose tissue with many of the pieces showing jacinto-white skin weighing in aggregate 945 gm and measuring in aggregate 21 x 19 x 7 cm. The skin surfaces does not show any lesion. Sections reveal yellow adipose cut surfaces with scant fibrous area. No mass lesion is identified. [employer] sections are submitted in six cassettes. / SEBASTIAN:dottie 01/25/21 More sections are submitted in cassettes 7-12. / SEBASTIAN:dottie 01/26/21 B - Received in fixative is one container labeled with the patient's name and designated left breast tissue. The specimen consists of multiple pieces of fibroadipose tissue with many of the pieces showing jacinto-white skin weighing in aggregate 1097 gm and measuring in aggregate 25 x 21 x 6 cm. The skin surfaces does not show any lesion. Sections reveal yellow adipose cut surfaces with scant fibrous area. No mass lesion is identified. A small nodule, a possible lymph node, is noted measuring 0.5 cm in greatest dimension. [employer] sections are submitted in six cassettes. Cassette 1 contains the jacinto nodule, entirely submitted. / SEBASTIAN:dottie 01/25/21 The fatty lymph node measures up to 3 cm in greatest dimension. More sections are submitted in 6 more cassettes, 7-12. / SEBASTIAN:dottie 01/26/21 TC:5 CPT: 90755 x2
[2021-01-24] MEDS: Cefazolin 2 GM in 0.9% Normal Saline 100 ML IV (12:45)
[2021-01-24 14:21] LABS: Bedside Glucose 250 mg/dL (70-110)
[2021-01-24] MEDS: Lidocaine 1% /Epi 1:100 (20ml) 20 ML Vial (16:12)
[2021-01-24 17:40] LABS: Bedside Glucose 141 mg/dL (70-110)
--- NOTE | 2021-01-24 18:19 | PCM.OPRPT ---
Problems Associated Problem List Diagnoses (1) Intertrigo: (2) Gynecomastia, male: (3) Excessive body weight loss: (4) History of gastric bypass: (5) Abdominal panniculus: (6) History of excision of lesion: Report of Operation Date of Procedure: 01/24/21 Pre-Operative Diagnosis: ASSESSMENT 1. Bilateral gynecomastia. 2. Inframammary intertrigo. 3. Excessive body weight loss. 4. History of gastric bypass surgery. 5. 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 6. Abdominal wall skin crease intertrigo. Post-Operative Diagnosis: Same. Surgery/Procedure Performed:: Bilateral mastectomy for gynecomastia after massive weight loss from gastric bypass. Description of Surgical Findings:: Patient is a 60 year old male who presents today for evaluation for body contouring of his abdomen and breast after massive weight loss from gastric bypass surgery in January 2018 in [place]. He lost about 150 lbs and weighs about 206 lbs at this time. He had a mammogram on 05/27/19. It showed both breasts have increased in density and increased in size due to gynecomastia that correlates with clinical concern. There are benign scattered calcifications both breasts. No significant masses, calcifications, or other findings are seen in either breast. He had an MRI Pituitary on 09/20/19. It showed normal MRI of the pituitary gland. No pathologic enhancement noted. He had an abdominal panniculectomy on 07/25/20. It healed uneventfully. So will proceed with the bilateral mastectomy for gynecomastia which will include excision lateral chest wall redundant tissue. He had gynecomastia labs done including Estradiol of 36.6, FSH of 22.2, LH of 24.4, Prolactin of 3.2, Beta hCG of <1, Free T4 of 0.9, LD of 230, Testosterone of 620, and TSH of 2.870. He had more recent labs in April, including Uric Acid of 4.2, Ferritin of 226, Prealbumin of 22.8, Vitamin B12 of 864, Folate of 85.80, Total Bilirubin of 0.50, AST of 49, ALT of 94, Alkaline Phosphatase of 95, Albumin of 2.3, Total Protein of 6.6, INR of 1.1, PTT of 33.6, Vitamin D of 51.5, and TSH of 0.75. Recent BMP of 07/21/20 showed a Potassium of 4.0, BUN/Creatinine of 21/0.85, and HgbA1c of 5.3. Patient was informed of the risks and complications of the procedure including alternatives to surgery. These were discussed with the patient personally. Patient voices understanding and wishes to proceed. Some of the risks and complications were included in a form from the [employer]. I used Germán absorbable hemostat, (I used 4 vials, 2 in each breast). Reference Number - [id number]. Lot Number - [id number]. Expiration - September 11, 2025. Surgeon: Milton Lopez internet marketing specialist: Efe Hart internet marketing specialist: Rona Mittal Type of Anesthesia: General Specimen's removed: 1. Right breast tissue to Pathology . 2. Left breast tissue to Pathology. Drains: Dale x4 (2 drains in each breast). Estimated Blood Loss (mL): 550 ml. Fluids Replaced: 4600 ml (IV Fluids - 4400ml, Urine Output - 200 ml) Description of Procedure: In the preop area, patient was in the sitting position. Markings were made in the sternal area and also the inframammary folds. This marking extended laterally and superiorly toward the axilla due to redundant skin and subcutaneous tissue in this area. Patient was taken to OR in supine position and was placed under general anesthesia. The breasts were prepped and draped in the usual fashion. SCD's were placed for DVT prophylaxis. Perioperative antibiotics were given intravenously. Using xylocaine with epinephrine, the markings were infiltrated. After waiting 5 minutes for the anesthetic to take effect, I started on the right breast and then went to the left breast. Incision was made around the nipple and continued straight down to the inframammary fold. This skin beneath the nipple was de-epithelialized for a dermal glandular inferior pedicle. I then made an incision just above the inframammary fold, about a centimeter. The incision extended laterally on the lateral chest wall and then superiorly toward the axilla. Excision of the gynecomastia was then started as a mastectomy. I made generous skin flaps about a centimeter in thickness at the level of Nara's fascia. Superiorly to the clavicle. Medially to the sternum. Inferiorly at the inframammary fold. Laterally to include redundant skin and subcutaneous tissue up toward the axilla. I left the nipple on an inferior dermal glandular pedicle. I was able to bring the superior breast skin flap inferiorly to the inframammary fold. There was minimal tension. I temporarily closed the inframammary incision with surgical clips. I marked out a vertical limb to accommodate the nipple areolar complex. The nipple diameter was 3 cm bilaterally. A circular incision was made. I brought out the nipple. Preoperatively the nipples were slightly lateral. The nipple was viable. I then removed the surgical clips. I then started on the lateral breast excess skin and subcutaneous tissue. I dissected the tissue down to the chest wall fascia. After trimming the excess tissue. I approximated the excess skin with care not to remove too much. That is why I had the patient lift his arms so was able to huyen what tissue can be safely removed without causing tethering on the breast incision. The breast wounds were irrigated with Irrisept 0.05% solution and followed by saline irrigation. Hemostasis was obtained with electrocautery. I sprayed Germán absorbable hemostat into the breast wound to minimize seroma formation. I used two vials. I placed 2 size 15 Dale drains into the breast wound from the lateral horizontal aspect. The inframammary and lateral breast incision extending superiorly toward the axilla were closed with 2-0 Vicryl interrupted suture for the deep dermis and subcutaneous tissue. The skin was approximated with 3-0 V Lock unidirectional barbed running subcuticular suture. The nipple was closed in a layered fashion with 3-0 Monocryl interrupted sutures for the deep dermis and subcutaneous tissue. The skin was approximated with 4-0 Prolene simple interrupted sutures. I then applied Histoacryl skin tissue adhesive. I secured the drains to the skin with 3-0 Nylon suture. The right nipple looked viable without evidence of vascular compromise. Tissue removed from the right breast was sent to Pathology for analysis to rule out carcinoma. I then went to the left side. Incision was made around the nipple and continued straight down to the inframammary fold. This skin beneath the nipple was de-epithelialized for a dermal glandular inferior pedicle. I then made an incision just above the inframammary fold, about a centimeter. The incision extended laterally on the lateral chest wall and then superiorly toward the axilla. Excision of the gynecomastia was then started as a mastectomy. I made generous skin flaps about a centimeter in thickness at the level of Nara's fascia. Superiorly to the clavicle. Medially to the sternum. Inferiorly at the inframammary fold. Laterally to include redundant skin and subcutaneous tissue up toward the axilla. I left the nipple on an inferior dermal glandular pedicle. I was able to bring the superior breast skin flap inferiorly to the inframammary fold. There was minimal tension. I temporarily closed the inframammary incision with surgical clips. I marked out a vertical limb to accommodate the nipple areolar complex. The nipple diameter was 3 cm bilaterally. A circular incision was made. I brought out the nipple. Preoperatively the nipples were slightly lateral. The nipple was viable. I then removed the surgical clips. I then started on the lateral breast excess skin and subcutaneous tissue. I dissected the tissue down to the chest wall fascia. After trimming the excess tissue. I approximated the excess skin with care not to remove too much. That is why I had the patient lift his arms so was able to huyen what tissue can be safely removed without causing tethering on the breast incision. The breast wounds were irrigated with Irrisept 0.05% solution and followed by saline irrigation. Hemostasis was obtained with electrocautery. I sprayed Germán absorbable hemostat into the breast wound to minimize seroma formation. I used two vials. I placed 2 size 15 Dale drains into the breast wound from the lateral horizontal aspect. The inframammary and lateral breast incision extending superiorly toward the axilla were closed with 2-0 Vicryl interrupted suture for the deep dermis and subcutaneous tissue. The skin was approximated with 3-0 V Lock unidirectional barbed running subcuticular suture. The nipple was closed in a layered fashion with 3-0 Monocryl interrupted sutures for the deep dermis and subcutaneous tissue. The skin was approximated with 4-0 Prolene simple interrupted sutures. I then applied Histoacryl skin tissue adhesive. I secured the drains to the skin with 3-0 Nylon suture. The left nipple looked viable without evidence of vascular compromise. Tissue removed from the left breast was sent to Pathology for analysis to rule out carcinoma At the end of the procedure, there was no hematoma. There was no vascular compromise on the skin flaps. Nipples are viable. Patient tolerated the procedure well and was sent to PACU in satisfactory condition. Patient will be sent upstairs for continued postop care. He will spend the night in the hospital for pain control. He will be discharged when tolerating po analgesia and is steady on his feet with ambulation. Grafts/Implants Used: Germán. Complications None. Admit VTE Documentation VTE Present on Admission: No VTE Mechan Device Prophylaxis: SCD's VTE Pharm Prophylaxis ordered?: Yes Addendum Addendum: Surgery Charges CPT - 39052 ICD-10 - N62, L30.4, R63.4, Z98.84, E65, Z98.890 [id number] N62, L30.4, R63.4, Z98.84, E65, Z98.890
[2021-01-24 19:30] LABS: Bedside Glucose 160 mg/dL (70-110)
--- NOTE | 2021-01-24 20:37 | PCS.PANDOC ---
PANDEMIC DOCUMENTATION INITIATED: Date: 10/30/2020 Time: 1900 Emergency documentation initiated 01/24/21 @ 2024
[2021-01-24 21:51] LABS: Bedside Glucose 168 mg/dL (70-110)
[2021-01-24] MEDS: Cefazolin 1 GM/50 ML BAG IV (23:54)
[2021-01-25 00:32] VITALS: BP 112/65; PULSE 71; RESP 18; TEMP 36.3; O2SAT 97
[2021-01-25] MEDS: Lactated Ringers 1,000 ML 60 ML IV ×2 (02:34→14:55)
[2021-01-25 04:38] VITALS: BP 118/58; PULSE 67; RESP 18; TEMP 36.6; O2SAT 97
[2021-01-25] MEDS: oxyCODONE 5 MG Tablet PO (04:51)
[2021-01-25] MEDS: Cefazolin 1 GM/50 ML BAG IV ×4 (05:50→23:05)
[2021-01-25] MEDS: Acetaminophen 500 MG Tablet 1000 MG PO ×4 (06:04→23:06)
[2021-01-25 06:30] LABS: Bedside Glucose 213 mg/dL (70-110)
[2021-01-25 07:42] LABS: Hemoglobin 10.4 g/dL (13.0-16.5); Mean Corp Hgb Conc 32.5 g/dL (32-36); Mean Corpuscular Hgb 30.2 pg (27.0-32.0); Mean Platelet Vol. 10.6 fl (6.2-12.0); Platelet Count 156 K/mm3 (150-450); RBC Distribution Width CV 13.4 % (11.6-14.6); RBC Distribution Width SD 45.6 fl (35.1-43.9); Red Blood Count 3.44 M/mm3 (4.6-6.2); White Blood Count 11.8 K/mm3 (4.4-11.0)
[2021-01-25 07:55] VITALS: O2SAT 94
[2021-01-25 08:28] LABS: Anion Gap 8 (5-15); BUN 24 mg/dL (7-18); BUN/Creat Ratio 21.2 RATIO (10-20); Calcium,Total 7.9 mg/dL (8.5-10.1); Chloride 108 mmol/L (98-107); Creatinine, Serum 1.13 mg/dL (0.70-1.30); EST Glomerular Filtration Rate 70 mL/min (>60); Est Glom Filt Rate - Afr Amer 85 mL/min (>60); Estimated Creatinine Clearance 67.26 ml/min; Glucose 222 mg/dL (74-106); Potassium 4.6 mmol/L (3.5-5.1); Prealbumin 14.1 mg/dL (20.0-40.0); Sodium Level 139 mmol/L (136-145)
[2021-01-25] MEDS: Docusate Sodium 100 MG Capsule PO ×2 (08:40→22:45)
[2021-01-25] MEDS: Enoxaparin 40 MG/0.4 ML Syringe SC (08:41)
[2021-01-25] MEDS: Gabapentin 100 MG Capsule 200 MG PO (08:41)
[2021-01-25] MEDS: Ensure Surgery 237 ML LIQUID PO ×3 (08:47→16:31)
[2021-01-25] MEDS: HYDROmorphone 1 MG/ML Syringe IV ×2 (08:48→22:45)
[2021-01-25 12:10] LABS: Bedside Glucose 234 mg/dL (70-110)
--- NOTE | 2021-01-25 15:20 | PCS.PANDOC ---
PANDEMIC DOCUMENTATION INITIATED: Date: 10/30/2020 Time: 190
[2021-01-25 16:21] VITALS: BP 113/47; PULSE 69; RESP 16; TEMP 36.3; O2SAT 94
[2021-01-25 16:40] LABS: Bedside Glucose 174 mg/dL (70-110)
--- NOTE | 2021-01-25 17:09 | PCM.PN.SRG ---
Subjective Subjective Postop #1 Patient has incisional pain. He has been slow to get out of bed secondary to the pain. Breathing ok. Objective Data Objective Data Vital Signs: Vital Signs Temp Pulse Resp BP Pulse Ox 97.4 F L 69 16 113/47 L 94 01/25/21 16:21 01/25/21 16:21 01/25/21 16:21 01/25/21 16:21 01/25/21 16:21 Oxygen Flow Rate (L/min) 2 Oxygen Delivery Method Room Air Weight: 223 lb Body Mass Index (BMI) 33.9 Intake & Output: Intake and Output for Last 24 Hours 01/23/21 01/24/21 01/25/21 23:59 23:59 23:59 Intake Total 1216 / 1216 2546 / 2546 Output Total 565 / 565 400 / 400 Balance 651 / 651 2146 / 2146 Drainage 160 ml yesterday, 100 ml today. Lab / Micro Data Attestation: I reviewed the patient's lab results. Result Diagrams: 01/25/21 07:28 01/25/21 07:28 Labs: Laboratory Results - last 24 hr 01/24/21 17:37: POC Glucose 141 H 01/24/21 19:24: POC Glucose 160 H 01/24/21 21:28: POC Glucose 168 H 01/25/21 06:07: POC Glucose 213 H 01/25/21 07:28: WBC 11.8 H, RBC 3.44 L, Hgb 10.4 L, Hct 32.0 L, MCV 93.0, MCH 30.2, MCHC 32.5, RDW Std Deviation 45.6 H, RDW Coeff of Johann 13.4, Plt Count 156, MPV 10.6 01/25/21 07:28: Sodium 139, Potassium 4.6, Chloride 108 H, Carbon Dioxide 23.0, Anion Gap 8, BUN 24 H, Creatinine 1.13, Estim Creat Clear Calc 67.26, Est GFR (MDRD) Af Amer 85, Est GFR (MDRD) Non-Af 70, BUN/Creatinine Ratio 21.2 H, Glucose 222 H, Calcium 7.9 L, Prealbumin 14.1 L 01/25/21 12:06: POC Glucose 234 H 01/25/21 16:28: POC Glucose 174 H Physical Exam Narrative General - Alert and Oriented HEENT - PERRL. EOMI. Neck - Supple and nontender. Chest wall - incisions are dry and intact. No clinical evidence of hematoma. Nipples are viable. Good contour noted especially laterally. Abdomen - Soft and nondistended. Neuro - CN II-XII grossly intact. Psych - Normal mood and affect. Assessment & Plan Assessment/Plan (1) Gynecomastia, male: (2) Excessive body weight loss: (3) History of gastric bypass: (4) Intertrigo: (5) Abdominal panniculus: (6) History of excision of lesion: PLAN: Patient complains of incisional pain. He hasn't gotten out of bed yet secondary to the pain. Incisions are dry and intact. No clinical evidence of hematoma. Nipples are viable. Hgb 10.4. Prealbumin 14.1. Encourage nutritional supplementation with protein to help the healing process. Encouraged patient to get out of bed with assist and ambulate. This will minimize pressure sore, pneumonia, and blood clots. Bentley removed today. Tolerating po and IV analgesia. Will keep him one more day until he is more steady on his feet with ambulation. Will remove the drains in the office. Continue compression mavis wrap and lifting restriction and head elevation.
[2021-01-25 19:57] VITALS: BP 117/52; PULSE 71; RESP 16; TEMP 36.8; O2SAT 95
[2021-01-25 23:11] LABS: Bedside Glucose 176 mg/dL (70-110)
[2021-01-25 23:22] VITALS: BP 100/42; PULSE 75; RESP 16; TEMP 37.2; O2SAT 92
[2021-01-26 01:44] VITALS: BP 99/46; PULSE 68; RESP 18; TEMP 37.2; O2SAT 95
[2021-01-26 03:27] VITALS: BP 113/48; PULSE 65; RESP 18; TEMP 36.9; O2SAT 95
--- NOTE | 2021-01-26 03:53 | NURSING ---
straight cathed patient for 400 ml of urine.
[2021-01-26] MEDS: Cefazolin 1 GM/50 ML BAG IV ×2 (05:24→11:40)
[2021-01-26] MEDS: Acetaminophen 500 MG Tablet 1000 MG PO ×2 (05:24→11:40)
[2021-01-26 06:51] LABS: Bedside Glucose 149 mg/dL (70-110)
[2021-01-26 07:34] VITALS: O2SAT 92
[2021-01-26 08:29] VITALS: BP 107/46; PULSE 65; RESP 16; TEMP 36.8; O2SAT 95
[2021-01-26] MEDS: Enoxaparin 40 MG/0.4 ML Syringe SC (08:56)
[2021-01-26] MEDS: Docusate Sodium 100 MG Capsule PO (08:56)
[2021-01-26] MEDS: Gabapentin 100 MG Capsule 200 MG PO (11:39)
--- NOTE | 2021-01-26 15:21 | PCM.DC ---
Discharge Instructions Diet Discharge Diet: Carb Control Diet (extra protein to help with wound healing) Activity Discharge Activity: May Not Shower May resume sexual activity in: 1-2 weeks Lifting Restrictions: 20 lb weight lifting restriction Dressing / Incision Call your doctor if your incision/area has: Continuous Slow Oozing, Sudden Increased Bleeding, Increased Pain/ Swelling, Increased Redness, Foul Smelling Discharge and Swelling at the incision site Call your doctor if you observe: Fever of 101 or Higher, Inability to have a bowel movement, Shortness of breath, Chest pain, Calf discomfort and Uncontrolled pain Change Dressing in: 1 day Cleanse incision/area with: Keep Dressing Clean & Dry Drain: Suction Additional Dressing/Incision Instructions:: No showering until the drains are removed. Keep track of drainage from drains. Wear compression/STEVE wraps. Follow Up Care Please Follow Up With: Dr. Lopez When: Friday01/30/21. Call to make appointment [phone] Test Results: Test results from this visit will be discussed in further detail at your follow-up appointment, if applicable. Discharge Plan Admission Admit Date/Time: 01/24/21 20:31 Attending Provider: Milton Lopez [facility] Providers: Lia Eisenberg Discharge Orders/Prescriptions Prescriptions: New docusate sodium [DOK] 100 mg Capsule 100 mg PO BID 30 Days Qty: 60 RF: 0 oxycodone-acetaminophen [Percocet] 5-325 mg tablet 1 tab PO Q4H PRN (Reason: pain (scale score 7-10)) 7 Days Qty: 40 RF: 0 diazepam [Valium] 5 mg tablet 5 mg PO BID PRN (Reason: muscle spasm) 7 Days Qty: 14 RF: 0 cefadroxil 500 mg capsule 500 mg PO BID 14 Days Qty: 28 RF: 0 Continued cholecalciferol (vitamin D3) [Vitamin D3] 2,000 unit capsule 2,000 unit PO DAILY RF: 0 vitamin B complex Capsule 1 cap PO BID RF: 0 topiramate [Topamax] 50 mg tablet 75 mg PO BID RF: 0 zinc 50 mg tablet 50 mg PO DAILY RF: 0 melatonin 3 mg tablet 3 mg PO QHS PRN (Reason: Sleep) RF: 0 omeprazole 20 MG capsule 20 mg PO DAILY Qty: 30 RF: 3 calcium carbonate-vitamin D3 1 EACH tablet 1 ea PO DAILY RF: 0 atorvastatin 40 MG tablet 40 mg PO QHS RF: 0 levothyroxine 100 MCG tablet 100 mcg PO DAILY@0600 RF: 0 citalopram [Celexa] 20 MG tablet 20 mg PO DAILY RF: 0 multivitamin with folic acid 1 TABLET tablet 1 tablet PO DAILY@0800 RF: 0 [facility] - Disposition Disposition (needs filled in before D/C Order can be placed): Home, Self Care
--- NOTE | 2021-01-26 15:35 | PCM.PN.SRG ---
Subjective Subjective Patient is postop #2 He is sitting up in his chair. He states his pain is well controlled. His is at his bedside. Objective Data Objective Data Vital Signs: Vital Signs Temp Pulse Resp BP Pulse Ox 98.3 F 65 16 107/46 L 95 01/26/21 08:29 01/26/21 08:29 01/26/21 08:29 01/26/21 08:29 01/26/21 08:29 Oxygen Flow Rate (L/min) 2 Oxygen Delivery Method Room Air Weight: 223 lb Body Mass Index (BMI) 33.9 Intake & Output: Intake and Output for Last 24 Hours 01/24/21 01/25/21 01/26/21 23:59 23:59 23:59 Intake Total 1216 / 1216 3893 / 3893 110 / 110 Output Total 565 / 565 545 / 545 505 / 505 Balance 651 / 651 3348 / 3348 -395 / -395 Lab / Micro Data Result Diagrams: 01/25/21 07:28 01/25/21 07:28 Labs: Laboratory Results - last 24 hr 01/25/21 16:28: POC Glucose 174 H 01/25/21 22:36: POC Glucose 176 H 01/26/21 06:40: POC Glucose 149 H Physical Exam Const alert, oriented x3 and no apparent distress General Appearance: cooperative HEENT normocephalic Eyes PERRL Lymph Lymphatic: no lymphedema noted Resp normal air movement Cardio regular rate GI soft to palpation and non-tender Extremity normal capillary refill Skin Wound Narrative: Bilateral breast incisions are dry and intact. Nipples are viable. He has some drainage under the left axilla at the Dale drain sites. Dressings changed. STEVE wrap for compression. Dale drains draining serosanguineous drainage. Neuro CN's II-XII intact bilaterally Psych mental status grossly normal Assessment & Plan Assessment/Plan (1) Gynecomastia, male: (2) Intertrigo: (3) Excessive body weight loss: (4) History of gastric bypass: (5) Other acute postprocedural pain: (6) Diabetes type 2, uncontrolled: PLAN: Patient is sitting up in chair. He has been ambulating independently in his room. Incisions are dry and intact. Nipples are viable. Dale drains draining serosanguineous drainage. He is draining over 105 ml combined from the drains. Will leave the drains in and will consider removing one from each side next week in the office. He is currently on Cefazolin. Will send him home on Cefadroxil until the drains are removed. He is to have a 20 lb weight lifting restriction. Encourage ambulation. Encouraged increased protein intake for wound healing and good blood sugar control. Will send him home on Percocet for pain and Valium for muscle spasms. He is to wear compression STEVE wrap at all times. He will follow up in our office on Friday01/30/21. He will call for his appointment. Charges/Coding Procedures Integumentary [id number]: 22145 Global Visit
[2021-01-26 17:20] VITALS: BP 110/49; PULSE 66; RESP 16; TEMP 37.2; O2SAT 96
--- NOTE | 2021-01-26 17:25 | DS.PCM_ITS ---
Providers Date of Admission: 01/24/21 Date of Discharge: 01/26/21 Primary Care Physician: [facility] Reason For Visit: BILATERAL MASTECTOMY Diagnosis Discharge Diagnosis (1) Intertrigo: Status: Chronic Code(s): L30.4 - Erythema intertrigo (2) Gynecomastia, male: Status: Chronic Code(s): N62 - Hypertrophy of breast (3) Excessive body weight loss: Status: Chronic Code(s): R63.4 - Abnormal weight loss (4) History of gastric bypass: Status: Chronic Code(s): Z98.84 - Bariatric surgery status (5) Abdominal panniculus: Status: Chronic Code(s): E65 - Localized adiposity (6) History of excision of lesion: Status: Acute Code(s): Z98.890 - Other specified postprocedural states; Z87.2 - Personal history of diseases of the skin and subcutaneous tissue Plan: Bilateral mastectomy for gynecomastia. Medications at Discharge Home Medications omeprazole 20 mg PO DAILY #30 cap 08/20/18 cholecalciferol (vitamin D3) 50 mcg (2,000 unit) capsule 2,000 unit PO DAILY cap 12/31/18 vitamin B complex 1 cap PO BID 12/31/18 melatonin 3 mg tablet 3 mg PO QHS PRN tab 03/22/20 topiramate 50 mg tablet 75 mg PO BID tab 03/22/20 zinc 50 mg tablet 50 mg PO DAILY 03/22/20 calcium carbonate-vitamin D3 1 ea PO DAILY 05/09/20 atorvastatin 40 mg PO QHS 10/18/20 citalopram [Celexa] 20 mg PO DAILY 10/18/20 levothyroxine 100 mcg PO DAILY@0600 10/18/20 multivitamin with folic acid 1 tablet PO DAILY@0810/18/20 cefadroxil 500 mg PO BID 14 Days #28 cap 01/26/21 diazepam [Valium] 5 mg PO BID PRN 7 Days #14 tab 01/26/21 docusate sodium [DOK] 100 mg PO BID 30 Days #60 cap 01/26/21 oxycodone-acetaminophen [Percocet] 1 tab PO Q4H PRN 7 Days #40 tab 01/26/21 Hospital Course Operations - (01/24/21 - Bilateral mastectomy for gynecomastia after massive weight loss from gastric bypass.) Procedures None Summary of Care Provided Minutes Spent on Discharge: 35 Hospital Course: Patient is a 60 year old male who presents today for evaluation for body contouring of his abdomen and breast after massive weight loss from gastric bypass surgery in January 2018 in [place]. He lost about 150 lbs and weighs about 206 lbs at this time. He had a mammogram on 05/27/19. It showed both breasts have increased in density and increased in size due to gynecomastia that correlates with clinical concern. There are benign scattered calcifications both breasts. No significant masses, calcifications, or other findings are seen in either breast. He had an MRI Pituitary on 09/20/19. It showed normal MRI of the pituitary gland. No pathologic enhancement noted. He had an abdominal panniculectomy on 07/25/20. It healed uneventfully. So will proceed with the bilateral mastectomy for gynecomastia which will include excision lateral chest wall redundant tissue. He had gynecomastia labs done including Estradiol of 36.6, FSH of 22.2, LH of 24.4, Prolactin of 3.2, Beta hCG of <1, Free T4 of 0.9, LD of 230, Testosterone of 620, and TSH of 2.870. He had more recent labs in April, including Uric Acid of 4.2, Ferritin of 226, Prealbumin of 22.8, Vitamin B12 of 864, Folate of 85.80, Total Bilirubin of 0.50, AST of 49, ALT of 94, Alkaline Phosphatase of 95, Albumin of 2.3, Total Protein of 6.6, INR of 1.1, PTT of 33.6, Vitamin D of 51.5, and TSH of 0.75. Recent BMP of 07/21/20 showed a Potassium of 4.0, BUN/Creatinine of 21/0.85, and HgbA1c of 5.3. On 01/24/21 the patient went to surgery and he underwent bilateral mastectomy for gynecomastia after massive weight loss from gastric bypass. He tolerated the procedure well. His hospital course was uneventful. Postop Hgb was 10.4. Prealbumin was 14.1. Encouraged nutritional supplementation with protein to help the healing process. His drainage ranged from 260 ml down to 105 ml the day of discharge. The drains will be removed in the office. He was afebrile during his hospital stay. On the first postop day, the patient was not initially motivated to get out of bed and ambulate. Getting out of bed and ambulating was strongly urged in order to minimize blood clots, pneumonia, or a pressure sore. He then become more interested in his recovery and was able to be steady on his feet by the second postoperative day. His white was removed as well, and going to the bathroom meant getting out of bed. During his hospital stay, his breast incisions were dry and intact. There was no clinical evidence of hematoma. There was no evidence of vascular compromise to the breast skin flaps. The bilateral nipples were viable. Good contour was noted in both breasts. He did have postoperative pain that needed an extra day of IV analgesia. On the second postoperative day, he was tolerating po analgesia and was steady on his feet with ambulation. On the second postoperative day, he was discharged home in satisfactory condition. Followup office next week on 01/30/21. Continue the STEVE wrap for chest wall compression. He will be on a lifting restriction. He will be maintained on antibiotics until the drains are removed in the office. Wrote script for Cefadroxil for 14 days. Wrote scripts for Percocet for pain (40 tabs) and for Valium for spasm (14 tabs). Wrote script for Colace for constipation (60 tabs). Pathology was pending as of the time of discharge. Condition upon discharge was good. Weight / BMI Weight Weight: 223 lb Body Mass Index (BMI) 33.9 ABG / Lab / Microbiology Data Result Diagrams: 01/25/21 07:28 01/25/21 07:28 Laboratory: Laboratory Results - last 24 hr 01/25/21 22:36: POC Glucose 176 H 01/26/21 06:40: POC Glucose 149 H D/C Instructions Discharge Diet: Carb Control Diet (extra protein to help with wound healing) May resume sexual activity in: 1-2 weeks Call your doctor if your incision/area has: Continuous Slow Oozing, Sudden Increased Bleeding, Increased Pain/ Swelling, Increased Redness, Foul Smelling Discharge and Swelling at the incision site Call your doctor if you observe: Fever of 101 or Higher, Inability to have a bowel movement, Shortness of breath, Chest pain, Calf discomfort and Uncontrolled pain Cleanse incision/area with: Keep Dressing Clean & Dry Drain: Suction Additional Dressing/Incision Instructions: No showering until the drains are removed. Keep track of drainage from drains. Wear compression/STEVE wraps. Please Follow Up With: Dr. Lopez When: Friday01/30/21. Call to make appointment [phone] Meaningful Use Info Meaningful Use Diagnoses (Choose all that apply): None applicable Discharge Plan Admission Admit Date/Time: 01/24/21 20:31 Primary Reason for Your Visit: bilateral mastectomy for gynecomastia. Attending Provider: Milton Lopez [facility] Providers: Lia Eisenberg Discharge Orders/Prescriptions Prescriptions: New docusate sodium [DOK] 100 mg Capsule 100 mg PO BID 30 Days Qty: 60 RF: 0 oxycodone-acetaminophen [Percocet] 5-325 mg tablet 1 tab PO Q4H PRN (Reason: pain (scale score 7-10)) 7 Days Qty: 40 RF: 0 diazepam [Valium] 5 mg tablet 5 mg PO BID PRN (Reason: muscle spasm) 7 Days Qty: 14 RF: 0 cefadroxil 500 mg capsule 500 mg PO BID 14 Days Qty: 28 RF: 0 Continued cholecalciferol (vitamin D3) [Vitamin D3] 2,000 unit capsule 2,000 unit PO DAILY RF: 0 vitamin B complex Capsule 1 cap PO BID RF: 0 topiramate [Topamax] 50 mg tablet 75 mg PO BID RF: 0 zinc 50 mg tablet 50 mg PO DAILY RF: 0 melatonin 3 mg tablet 3 mg PO QHS PRN (Reason: Sleep) RF: 0 omeprazole 20 MG capsule 20 mg PO DAILY Qty: 30 RF: 3 calcium carbonate-vitamin D3 1 EACH tablet 1 ea PO DAILY RF: 0 atorvastatin 40 MG tablet 40 mg PO QHS RF: 0 levothyroxine 100 MCG tablet 100 mcg PO DAILY@0600 RF: 0 citalopram [Celexa] 20 MG tablet 20 mg PO DAILY RF: 0 multivitamin with folic acid 1 TABLET tablet 1 tablet PO DAILY@0800 RF: 0 [facility] - Disposition Disposition (needs filled in before D/C Order can be placed): Home, Self Care
== END 2021-01-26 17:36 | disposition home or self-care (01) ==
LOC: SDC 01-25 08:03 → MS2 01-25 08:03
PROVIDERS: Anesthesiology; Admitting Provider Surgery; Referring Provider Surgery; Visit Provider Surgery
PROC: (CPT 19303; principal; 2021-01-24 10:40)
DX: N62 Hypertrophy of breast (principal); I10 Essential (primary) hypertension; E78.5 Hyperlipidemia, unspecified; I25.10 Atherosclerotic heart disease of native coronary artery without angina pectoris; E03.9 Hypothyroidism, unspecified; G47.33 Obstructive sleep apnea (adult) (pediatric); E66.9 Obesity, unspecified; F32.A Depression, unspecified; F41.9 Anxiety disorder, unspecified; K21.9 Gastro-esophageal reflux disease without esophagitis; L30.4 Erythema intertrigo; M79.3 Panniculitis, unspecified; E11.40 Type 2 diabetes mellitus with diabetic neuropathy, unspecified; Z98.84 Bariatric surgery status; Z79.899 Other long term (current) drug therapy; Z95.5 Presence of coronary angioplasty implant and graft; Z68.33 Body mass index [BMI] 33.0-33.9, adult
CPT/HCPCS: 00400; 19300; 36415; 80048; 82962; 83735; 84134; 84443; 85027; 88305; 94762; 96365; 96366; 96372; 96375; 96376; 99218; 99251; J7120; G0378; G0463; J2405

== ENCOUNTER 2021-02-16 14:36 | Emergency (ER) | payer MEDICAID, SELFPAY ==
[2021-02-16 14:37] VITALS: BP 126/58; PULSE 46; RESP 18; TEMP 36.7; O2SAT 100; BMI 33.4
--- NOTE | 2021-02-16 16:29 | VDUE_ITS ---
Reason For Study: Swelling Right Proximal Left Proximal Right subclavian vein is spontaneous, widely Left jugular vein is spontaneous, widely patent, phasic, with no intraluminal patent, phasic, with no intraluminal echogenicity noted. echogenicity noted. Left subclavian vein is spontaneous, widely patent, phasic, with no intraluminal echogenicity noted. Left Arm Lt AxillaryV and Lt BrachialV are dilated and non compressible consistent with acute DVT. Left cephalic vein is compressible. Lt BasilicV is dilated and non compressible consistent with acute SVT. Left Lower Arm Left radial vein is compressible. Left ulnar vein is compressible. Patient Safety Prelim given to Dr. Roman. VL/Venous Duplex US, Unilateral Interpretation Summary Acute deep venous thrombosis left axillary and brachial veins Superficial thrombophlebitis left basilic vein Patent, compressible left cephalic vein Normal flow patterns right subclavian vein Ordering Physician: Rogelio Roman Referring Physician: [facility] Performed By: Татьяна Santo, SUMEET, RVT ?
[2021-02-16] MEDS: HYDROcodone Bitartrate/Apap 5/325 Tablet PO (16:49)
[2021-02-16 18:56] VITALS: BP 158/52; PULSE 44; RESP 16; O2SAT 100
[2021-02-16] MEDS: APIXABAN 5 MG TABLET 10 MG PO (19:42)
[2021-02-16 19:44] VITALS: PULSE 50; RESP 18; O2SAT 97
--- NOTE | 2021-02-17 00:28 | EDS_ITS ---
HPI History of Present Illness Chief Complaint: Edema Narrative Narrative: Patient presenting with diffuse left upper extremity swelling and pain. He was seen by the nurse practitioner for Dr. Lopez who sent him to the ER for an ultrasound because she could not set this up with pain of outpatient and it was the weekend. Patient denies any chest pain or shortness of breath. He did recently have surgery with Dr. Lopez about a month ago. He is not anticoagulated. He denies any numbness or tingling in the left upper extremity. He has not had any trauma. [facility] Medical History Abdominal panniculus Anxiety and depression Atherosclerotic heart disease of [place] coronary artery without angina pectoris Back problem BiPAP (biphasic positive airway pressure) dependence Bradycardia Cardiology follow-up encounter Chronic diarrhea Constipation Coronary artery disease Diabetes Dizziness Dyspnea on exertion Edema Essential hypertension Excessive body weight loss Frequent headaches Gastric reflux GERD (gastroesophageal reflux disease) Gynecomastia, male Hearing problem Hiatal hernia High cholesterol High triglycerides History of pneumonia Hx of cardiovascular stress test Hyperlipidemia Hypertension Hypothyroidism Hypothyroidism (acquired) Injury of head and neck Intertrigo Migraine headache Neuropathy Non-smoker Obesity Obstructive sleep apnea Panniculitis, unspecified Preop cardiovascular exam Pressure ulcer of coccygeal region, stage 2 Subdural hematoma (08/03/18) Traumatic brain injury (08/03/18) Vitamin deficiency Wears glasses Wears partial dentures Home Medications omeprazole 20 mg PO DAILY #30 cap 08/20/18 [Rx Last Taken 01/24/21] cholecalciferol (vitamin D3) 50 mcg (2,000 unit) capsule 2,000 unit PO DAILY cap 12/31/18 [History Last Taken Unknown] vitamin B complex 1 cap PO BID 12/31/18 [History Last Taken Unknown] melatonin 3 mg tablet 3 mg PO QHS PRN tab 03/22/20 [History Last Taken Unknown] topiramate 50 mg tablet 75 mg PO BID tab 03/22/20 [History Last Taken 01/24/21] zinc 50 mg tablet 50 mg PO DAILY 03/22/20 [History Last Taken Unknown] calcium carbonate-vitamin D3 1 ea PO DAILY 05/09/20 [History Last Taken Unknown] atorvastatin 40 mg PO QHS 10/18/20 [History Last Taken Unknown] citalopram [Celexa] 20 mg PO DAILY 10/18/20 [History Last Taken Unknown] levothyroxine 100 mcg PO DAILY@0600 10/18/20 [History Last Taken 01/24/21] multivitamin with folic acid 1 tab PO DAILY@0800 10/18/20 [History Last Taken Unknown] oxycodone-acetaminophen [Percocet] 1 tab PO Q4H PRN 7 Days #40 tab 01/26/21 [Rx Last Taken Unknown] apixaban [Eliquis DVT-PE Treat 30D Start] 5 mg PO BID #74 tab 02/16/21 [Rx Last Taken Unknown] docusate sodium [DOK] 100 mg PO BID PRN 02/16/21 [History Last Taken Unknown] pedi multivit [id number] K1 [Cerovite Jr] 1 tab PO DAILY 02/16/21 [History Last Taken Unknown] Allergy/AdvReac Type Severity Reaction Status Date / Time celecoxib [From Celebrex] Allergy Intermediate Rash Verified 02/16/21 14:39 Family History (Reviewed 02/16/21 @ 14:28 by Chasidy Nichole COREMAKING MACHINE SETTER, COREMAKING MACHINE SETTER-C) Mother CAD (coronary artery disease) Diabetes History of blood clots Heart disease Hypertension High cholesterol Kidney disease Respiratory disease Seizures CVA (cerebral vascular accident) Father CAD (coronary artery disease) Hypertension Cancer Diabetes Heart disease High cholesterol CVA (cerebral vascular accident) Lung cancer Sister CAD (coronary artery disease) Hypertension Alcoholism Anxiety Suicide attempt Grandfather Diabetes Grandmother Diabetes Surgical History H/O hemorrhoidectomy History of abdominal surgery History of cholecystectomy History of excision of lesion History of gastric bypass History of hernia repair Hx of cholecystectomy Hx of colonoscopy removal of enlarged lymph node removal of lypoma Status post bariatric surgery Stented coronary artery (~02/2009) Social History Smoking Status: Never smoker second hand exposure: No alcohol intake: never substance use type: does not use caffeine: No additional social history: DOES TAKE ASPIRIN DOES TAKE IBUPROFEN ROS ROS ED Constitutional Constitutional ED: Denies chills, fever(s) or subjective Eyes Eyes: Denies blurry vision or change in vision ENT ENT ED: Denies rhinorrhea or sore throat Cardiovascular Cardiovascular: Denies chest pain or palpitations Respiratory/Chest Respiratory/Chest: Denies cough or dyspnea Gastrointestinal Gastrointestinal: Denies abdominal pain or nausea Genitourinary Genitourinary ED: Denies dysuria or hematuria Musculoskeletal Musculoskeletal: Reports other Details: Diffuse left upper extremity swelling Integumentary Denies abscess or rash Neurologic Neurologic: Denies headache(s) or weakness EXAM Physical Exam Const Vital Signs: 02/16/21 14:37 02/16/21 18:56 02/16/21 19:44 Temperature 98.0 F Temperature Source Temporal Pulse Rate 46 L 44 L 50 L Respiratory Rate 18 16 18 Blood Pressure 126/58 H 158/52 H Blood Pressure Mean 80 87 Pulse Ox 100 100 97 Oxygen Delivery Method Room Air Room Air Positive well nourished General Appearance ED: NAD HEENT Reports moist mucous membranes normocephalic and atraumatic Eyes PERRL and EOMs intact bilaterally Resp normal respiratory effort and clear to auscultation bilaterally Cardio regular rate and regular rhythm GI non-tender Palpation: soft Extremity Extremity Narrative: Diffuse edema in the left upper extremity extending from the axillary region down into the hand. There is edema. Radial pulse 2+. Normal Jan's test on the left hand. Left hand neurovascular intact brisk cap refill to all 5 fingers. Neuro oriented x3 Sensorium / Orientation: alert Psych mental status grossly normal MDM MDM MDM Narrative Medical decision making narrative: Patient presents with edema to the left upper extremity. I did obtain a duplex of the left upper extremity which is positive for DVT in the left axillary vein, left brachial vein, left basilic vein. Patie nt was discussed with Dr. Lopez to ensure he was okay to start anticoagulation after surgery about a month ago. He was amenable to this. Patient was started on Eliquis with the first dose in the ED. Patient will follow-up with Dr. Lopez outpatient for follow-up. Patient stable discharge at this time. Impression: 1. DVT left subclavian vein 2. DVT left brachial vein 3. SVT left basilar vein Discharge Plan Triage Chief Complaint: Edema ED Provider: Rogelio Roman Dx/Rx/DC Orders Clinical Impression: DVT of left axillary vein, acute Instructions: DVT/PE Discharge instruction sheet Prescriptions: New Eliquis DVT-PE Treat 30D Start 5 mg (74 tabs) tablets,dose pack 5 mg PO BID Qty: 74 RF: 0 No Action cholecalciferol (vitamin D3) [Vitamin D3] 2,000 unit capsule 2,000 unit PO DAILY RF: 0 vitamin B complex Capsule 1 cap PO BID RF: 0 topiramate [Topamax] 50 mg tablet 75 mg PO BID RF: 0 zinc 50 mg tablet 50 mg PO DAILY RF: 0 melatonin 3 mg tablet 3 mg PO QHS PRN (Reason: Sleep) RF: 0 omeprazole 20 MG capsule 20 mg PO DAILY Qty: 30 RF: 3 calcium carbonate-vitamin D3 1 EACH tablet 1 ea PO DAILY RF: 0 atorvastatin 40 MG tablet 40 mg PO QHS RF: 0 levothyroxine 100 MCG tablet 100 mcg PO DAILY@0600 RF: 0 citalopram [Celexa] 20 MG tablet 20 mg PO DAILY RF: 0 multivitamin with folic acid 1 TABLET tablet 1 tab PO DAILY@0800 RF: 0 oxycodone-acetaminophen [Percocet] 5-325 mg tablet 1 tab PO Q4H PRN (Reason: pain (scale score 7-10)) 7 Days Qty: 40 RF: 0 Cerovite Jr 18 mg iron- 10 mcg Tablet,Chewable 1 tab PO DAILY RF: 0 docusate sodium [DOK] 100 mg capsule 100 mg PO BID PRN (Reason: Constipation) RF: 0 Primary Care Provider: [facility] Val[facility] Referrals: Milton Lopez MD [STAFF PHYSICIAN] - As soon as possible [facility] [Primary Care Provider] - Disposition Disposition: Home, Self Care Discharge Date/Time: 02/16/21 19:44
== END 2021-02-16 19:44 | disposition home or self-care (01) ==
PROVIDERS: Emergency Provider Student in an Organized Health Care Education/Training Program
DX: I82.A12 Acute embolism and thrombosis of left axillary vein (principal); I82.622 Acute embolism and thrombosis of deep veins of left upper extremity; I82.612 Acute embolism and thrombosis of superficial veins of left upper extremity; I25.10 Atherosclerotic heart disease of native coronary artery without angina pectoris; E11.40 Type 2 diabetes mellitus with diabetic neuropathy, unspecified; I10 Essential (primary) hypertension; E03.9 Hypothyroidism, unspecified; E78.1 Pure hyperglyceridemia; E78.5 Hyperlipidemia, unspecified; K21.9 Gastro-esophageal reflux disease without esophagitis; F32.A Depression, unspecified; F41.9 Anxiety disorder, unspecified; G47.33 Obstructive sleep apnea (adult) (pediatric); E66.9 Obesity, unspecified; Z79.01 Long term (current) use of anticoagulants; Z79.890 Hormone replacement therapy; Z79.899 Other long term (current) drug therapy; Z87.820 Personal history of traumatic brain injury
CPT/HCPCS: 93971; 99283

== ENCOUNTER 2021-04-04 13:44 | Outpatient (CLI) | payer MEDICAID, SELFPAY ==
--- NOTE | 2021-04-04 13:48 | VDUE_ITS ---
Reason For Study: Pain Right Proximal Left Proximal Right subclavian vein is spontaneous, widely Left jugular vein is spontaneous, widely patent, phasic, with no intraluminal patent, phasic, with no intraluminal echogenicity noted. echogenicity noted. Left subclavian vein is spontaneous, widely patent, phasic, with no intraluminal echogenicity noted. Left Arm Left axillary vein is spontaneous, patent, phasic, competent, compressible and demonstrates augmentation. Left brachial vein is compressible. Left cephalic vein is compressible. Lt Basilic V is partially compressible. Left Lower Arm Left radial vein is compressible. Left ulnar vein is compressible. Patient Safety Improvement compared to previous study on 02/16/21 Prelim sent to Chasidy Nichole NP. VL/Venous Duplex US, Unilateral Interpretation Summary There is no evidence of left upper extremity deep vein thrombosis. Partial comp ressibility left basilic vein consistent with chronic superficial thrombophlebitis. Normal flow patterns right subclavian vein. Notable improvement in the left upper extremity deep venous system since the pr evious examination of February 16, 2021 Ordering Physician: Chasidy Nichole Referring Physician: [facility] Performed By: Татьяна Santo, SUMEET, RVT ?
== END 2021-04-04 23:59 | disposition short-term general hospital (02) ==
LOC: CVS 13:46
PROVIDERS: Referring Provider Nurse Practitioner Family; Visit Provider Nurse Practitioner Family
DX: I80.8 Phlebitis and thrombophlebitis of other sites (principal); Z86.718 Personal history of other venous thrombosis and embolism; Z90.13 Acquired absence of bilateral breasts and nipples
CPT/HCPCS: 93971

== ENCOUNTER 2021-04-11 12:19 | Outpatient (CLI) | payer MEDICAID, SELFPAY ==
[2021-04-11 13:57] LABS: AST(SGOT) 20 U/L (15-37); Alanine Aminotransfer ALT/SGPT 42 U/L (16-61); Albumin, Serum 3.5 g/dL (3.2-5.0); Alkaline Phosphatase 117 U/L (45-117); Bilirubin, Direct 0.16 mg/dL (0.00-0.30); Cholesterol 99 mg/dL (200); Globulin 3.2 g/dL (2.2-4.2); High Density Lipoprotein 50 mg/dL; Protein, Total 6.7 g/dL (6.4-8.2); Triglycerides 80 mg/dL; Very Low Density Lipoprotein 16 mg/dL (5-40)
== END 2021-04-11 23:59 | disposition short-term general hospital (02) ==
LOC: LAB 12:21
PROVIDERS: Referring Provider Nurse Practitioner Family; Visit Provider Nurse Practitioner Family
DX: I25.10 Atherosclerotic heart disease of native coronary artery without angina pectoris (principal)
CPT/HCPCS: 36415; 80061; 80076

== ENCOUNTER 2021-04-25 10:49 | Outpatient (CLI) | payer MEDICAID, SELFPAY ==
--- NOTE | 2021-04-25 11:20 | MRI_ITS ---
EXAM: MR HEAD WITHOUT INTRAVENOUS CONTRAST CLINICAL INDICATION: Headaches x2 months. Pain especially of the left side. Patient fell 2 years ago and had a BRAIN BLEED. TECHNIQUE: Multiplanar and multisequence MR images of the brain were obtained without intravenous contrast. This report was created using [employer] report generation technology. COMPARISON: CT head without contrast 10/24/2018. FINDINGS: BRAIN AND EXTRA-AXIAL SPACES: No focal signal abnormalities throughout the brain parenchyma. No intra- or extra-axial hemorrhage. No evidence of acute infarct. No intracranial mass or mass effect. There is preservation of the george/white matter interface. Posterior fossa structures are unremarkable. Ventricles are appropriate for age. No hydrocephalus. Basal cisterns are patent. SELLA: Unremarkable. Normal sella turcica, pituitary gland, infundibular stalk, optic chiasm and hypothalamus. AUDITORY SYSTEM: Unremarkable. The internal auditory canals are patent. BONES/JOINTS: Unremarkable. No discrete lytic or blastic abnormalities. SINUSES: Unremarkable as visualized. Clear. MASTOID AIR CELLS: Unremarkable as visualized. Clear. ORBITS: Unremarkable as visualized. Both globes, extraocular muscles, optic nerves and retrobulbar fat appear unremarkable. VASCULATURE: Unremarkable as visualized. Normal flow voids in the major intracranial circulation. MRI/Brain without Contrast IMPRESSION: 1. Normal MRI brain without contrast. 2. No MRI evidence of remote intracranial bleeding particularly on the gradient echo sequence. Electronically Signed: Jamari Dawson MD at 12:38 EST ,
== END 2021-04-25 23:59 | disposition home or self-care (01) ==
LOC: MRI 10:51
PROVIDERS: Referring Provider Psychiatry & Neurology Neurology; Visit Provider Psychiatry & Neurology Neurology
DX: I61.9 Nontraumatic intracerebral hemorrhage, unspecified (principal)
CPT/HCPCS: 70551

== ENCOUNTER 2021-06-08 14:00 | Outpatient (RCR) | payer MEDICAID, SELFPAY ==
--- NOTE | 2021-04-30 14:11 | HP.PTEVAL_ITS ---
Patient's Visit Information BRADLEY GREENFIELD is a 60 year old M referred to Physical Therapy by Tashi Santo, REGISTERED RADIOGRAPHER-C with a diagnosis of Weakness adn abnormality of gait. Date of Evaluation: 04/30/21 Physical Therapist: Jay Truong, DPT, OCS, CSCS - Visit Plan Frequency: 3x /Week Duration: 4 Weeks Plan: 3x/week for 4 weeks to: teach and progress gym based HEp for exit strategy to community gym. Work on should ROM flexion and ext rotation PROM and AROM. stretch HS and gastroc - Subjective Having problems with strength and stuff. Had blood clots in L arm now dissolved, that was since his most recent surgery of having fat taken off catherine asts 7 weeks ago and previously had fat taken off stomach. has had bariatric surgery. Overall feels weak but improving overall. Sleep is OK in chair. Has constant ringing in ears. MRI last week due to pounding in head, gets results from Neurologist Dr. Grajeda. Worries about falling BW but has had no other falls. Not employed , no work in 3 years due to surgeries. Laid off yrs ago. Spends day pestering . Basic ADLs are getting done on own, needed 's help after surgery. Had brain bleed falling off chair yrs ago, was standing to change lightbulb. Will take dog for walk as exercises. - Objective Slow walk back to PT but I. Trasnfers I with UE, steps reciprocal without rail today, slow and mildly weak. Trasnfers bed I but multiple attempts to sit up. UE AROM 90 flexiona dn abd B AROM adn 110 PROM, 15 exxt rotation PROM and aROM B. Tight end feel, not overly painful. LE AROM WFL but tight in HS and gastroc , 0-120 knee AROM. reflexes 1/3 B patella and achilles. Sensation WNL to gross light touch in Christy but says some neuropathy in LE feet. Strength hips abd and ext 3+ and flexion 4- B,. knee flex and ext 4- B. DF and inv/ev 4-, PF able to heel raise. - Balance/Special Test Scores Functional Gait Assessment Score: 26 % Disability: 13.3400 CATSIB Score (Max score 120 seconds): 110 Lower Extremity Functional Score: 48 TUG Test Time Seconds: 12 30 Second Chair Rise Test Seconds: 11 - Goals Goal 1:: I appropriate gym based ex adn shoulder ROM Goal Time Frame: 2-4 Weeks Goal 2:: AROM shoulder to 130 and ext rotation to 35 to allow hands behind head. Goal Time Frame: 2-4 Weeks Goal 3:: Pt feel 50% better in overall mobility Goal Time Frame: 2-4 Weeks Goal 4:: LEFS 62 Goal Time Frame: 2-4 Weeks - Rehabilitation Potential Physical Therapy Diagnosis: Weakness and sedentairsm Rehabilitation Potential: Fair - Anticipated Interventions Patient/Client Instruction: Educate patient on: Condition, Plan of Care For the Purpose of:: To decrease pain, To increase ROM, To increase tolerance to activity/condition/position, To improve ability of physical actions for home/community/work/leisure Therapeutic Exercise to Include: Strength training, Flexibilty training, Passive ROM, Active ROM For the Purpose of:: To decrease pain, To increase ROM, To improve muscle performance and motor function, To improve ability of physical actions for home/community/work/leisure, To improve gait and locomotor functions Manual Therapy Techniques to Include: Passive ROM For the Purpose of:: To increase ROM Thank you for the opportunity to evaluate your patient. For Medicare and Medicare HMO plans, please review the plan of care and approve it. It will need to be FAXED BACK to us at [phone] for Medicare purposes. For Medicare only, by signing this I certify the plan of care. Please let me know if there are questions or concerns regarding this plan of care. Physician Signature: Date:
--- NOTE | 2021-06-08 15:09 | HP.PTDCSUM_ITS ---
It has been my pleasure to treat BRADLEY GREENFIELD referred by MATTHIEU Lion, with the diagnosis of Weakness adn abnormality of gait for a total of 14 visit(s). Discharge Date: 06/08/21 Please see the following information for a summary of their discharge status. Subjective: Shoulders still always sore. Constant at R8/10 and L 7/10 with movement, less without movement. Feels like strengthening is helping but wants to continue. Wants to get shoulders checked out more thouroughly, will get x rays of shoulders next week. No better in shoulders. Slightly stronger overall and feels he can continue if a job does not get in the way. CHELLY SHLDS Pain Intensity (Out of 10): 8 % Improvement: 0 Objective/Function: R shoulder 100 aROM and 108 PROM flexion and ext rotation to 8 degrees. L shoulder 105 AROM and 110 PROM, ext rotation 5 and all limited by firm endfeel and pain. Pt walking and moving around better outside of shoulder. not tolerate much shoulder overpressure at all. Recommend to patient that he continue I in community gym and have shoulders check out further by doctor as he is not improving in this ROM or tolerance to strength. Goal 1:: I appropriate gym based ex adn shoulder ROM Goal Progress: met ex, shoulders hurt. Goal 2:: AROM shoulder to 130 and ext rotation to 35 to allow hands behind head. Goal Progress: Not Progressing Goal 3:: Pt feel 50% better in overall mobility Goal Progress: Not Progressing Goal 4:: LEFS 62 Goal Progress: Not Progressing Plan: d/c, pt to contact doctor after shoulder diagnostics(alreaddy ordered according to patient) Discharge Comments: Pt to doctor for further shoulder evaluation/options. If there are questions or concerns regarding this patient's physical therapy, please feel free to call me at [phone]. Thank you for the referral of this patient. Sincerely, Jay Truong, DPT, OCS, CSCS Balance/Gait/Functional tests - Balance/Special Test Scores Functional Gait Assessment Score: 26 % Disability: 13.3400 CATSIB Score (Max score 120 seconds): 110 Lower Extremity Functional Score: 49 TUG Test Time Seconds: 12 Tug Test: <20 sec.=mostly independent 30 Second Chair Rise Test Seconds: 11
== END 2021-06-08 19:00 | disposition home or self-care (01) ==
LOC: PT 14:00
PROVIDERS: Referring Provider Nurse Practitioner Family; Visit Provider Nurse Practitioner Family
DX: R53.1 Weakness (principal); R26.89 Other abnormalities of gait and mobility; I25.10 Atherosclerotic heart disease of native coronary artery without angina pectoris
CPT/HCPCS: 97110; 97140; 97162; 97164

== ENCOUNTER 2021-06-13 13:00 | Outpatient (CLI) | payer MEDICAID, SELFPAY ==
--- NOTE | 2021-06-13 13:30 | RAD_ITS ---
STUDY: XR Shoulder Min 2 Views REASON FOR EXAM: Male, 60 years old. PAIN AIN IN BOTH SHOULDERS WITH BROWN ROM, MOSTLY PAIN STARTED SINCE HIS EXCESS SKIN REMOVAL FROM HIS ARM PIT AREAS DUE TO LOOSING WEIGHT JUST A MONTH OR SO AGO PER PATIENT. TECHNIQUE: XR Shoulder Min 2 Views RIGHT COMPARISON: None. FINDINGS: Normal glenohumeral articulation. Normal acromioclavicular joint. Normal acromion. Normal humeral head and visualized proximal humerus. The soft tissue structures are unremarkable. Normal visualized pulmonary apex. RAD/Shoulder min 2 Views IMPRESSION: There are no acute findings of the shoulder. Electronically Signed: Brayan Jimenez MD at 18:30 EDT ,
--- NOTE | 2021-06-13 13:30 | RAD_ITS ---
STUDY: XR Shoulder Min 2 Views REASON FOR EXAM: Male, 60 years old. PAIN TECHNIQUE: XR Shoulder Min 2 Views LEFT COMPARISON: None. FINDINGS: Normal glenohumeral articulation. Normal acromioclavicular joint. Normal acromion. Normal humeral head and visualized proximal humerus. The soft tissue structures are unremarkable. Normal visualized pulmonary apex. RAD/Shoulder min 2 Views IMPRESSION: There are no acute findings of the shoulder. Electronically Signed: Brayan Jimenez MD at 18:30 EDT ,
== END 2021-06-13 23:59 | disposition home or self-care (01) ==
LOC: RAD 13:02
PROVIDERS: Referring Provider Nurse Practitioner Adult Health; Visit Provider Nurse Practitioner Adult Health
DX: M25.511 Pain in right shoulder (principal); M25.512 Pain in left shoulder
CPT/HCPCS: 73030

== ENCOUNTER → 2021-10-30 | Outpatient (CLI) | payer MEDICAID, SELFPAY ==
--- NOTE | 2021-10-30 08:03 | VDUE_ITS ---
Reason For Study: PAIN Right Proximal Left Proximal Right jugular vein is spontaneous, widely Left jugular vein is spontaneous, widely patent, phasic, with no intraluminal patent, phasic, with no intraluminal echogenicity noted. echogenicity noted. Right subclavian vein is spontaneous, widely Left subclavian vein is spontaneous, widely patent, phasic, with no intraluminal patent, phasic, with no intraluminal echogenicity noted. echogenicity noted. Right Lower Arm Left Arm Right radial vein is compressible. Left axillary vein is spontaneous, patent, Right ulnar vein is compressible. phasic, competent, compressible and Right Arm demonstrates augmentation. Right axillary vein is spontaneous, patent, Left brachial vein is compressible. phasic, competent, compressible and Left cephalic vein is compressible. demonstrates augmentation. Left basilic vein is compressible. Right brachial vein is compressible. Left Lower Arm Right cephalic vein is compressible. Left radial vein is compressible. Right basilic vein is compressible. Left ulnar vein is compressible. VL/Venous Duplex US - Indra Extrem Interpretation Summary No evidence for acute deep venous thrombosis bilateral upper extremities with p atent and compressible bilateral cephalic and basilic veins Ordering Physician: Cody Lombardi Referring Physician: JENSEN RALPH [facility] Performed By: Andie Paz, SUMEET, RVT ?
[2021-10-30 08:42] LABS: AST(SGOT) 22 U/L (15-37); Alanine Aminotransfer ALT/SGPT 43 U/L (16-61); Albumin, Serum 3.5 g/dL (3.2-5.0); Alkaline Phosphatase 103 U/L (45-117); Bilirubin, Direct 0.15 mg/dL (0.00-0.30); Cholesterol 111 mg/dL (200); Globulin 2.9 g/dL (2.2-4.2); High Density Lipoprotein 54 mg/dL; Protein, Total 6.4 g/dL (6.4-8.2); Triglycerides 86 mg/dL; Very Low Density Lipoprotein 17 mg/dL (5-40)
== END | disposition home or self-care (01) ==
PROVIDERS: Referring Provider Internal Medicine Cardiovascular Disease; Visit Provider Internal Medicine Cardiovascular Disease
DX: E78.00 Pure hypercholesterolemia, unspecified (principal); Z86.718 Personal history of other venous thrombosis and embolism
CPT/HCPCS: 36415; 80061; 80076; 93970

== ENCOUNTER 2021-11-27 14:35 | Emergency (ER) | payer MEDICAID, SELFPAY ==
[2021-11-27 14:36] VITALS: BP 168/69; PULSE 55; RESP 18; TEMP 36.3; O2SAT 98; BMI 35.2
--- NOTE | 2021-11-27 14:52 | EKG12_ITS ---
Test Reason : Blood Pressure : / mmHG Vent. Rate : 051 BPM Atrial Rate : 051 BPM P-R Int : 190 ms QRS Dur : 098 ms QT Int : 446 ms P-R-T Axes : 050 082 025 degrees QTc Int : 411 ms Sinus bradycardia Otherwise normal ECG Confirmed by JANETTE BEACH, DERIAN ([id number]), book or script editor ANDRES JIMENEZ ([id number]) on 11/28/2021 1:59:09 PM Referred By: Confirmed By:DERIAN SAVAGE MD
--- NOTE | 2021-11-27 14:56 | EX.ED.DYSGE1 ---
HPI History of Present Illness Chief Complaint: Cold Sx Informant: patient Narrative Narrative: Presents for evaluation. Symptomatic 2 days ago with a positive home COVID test. Spouse had COVID diagnosed this past Friday. Patient vaccinated without boosters. This was 2 years ago. No history of COVID infections. He started out with cough congestion sinus headache yesterday with chills. No vomiting or diarrhea. Chest discomfort with cough. Patient was previously on Eliquis for 6 months with left upper extremity DVT postop from surgery. History of coronary disease with 1 stent. Currently on baby aspirin. Denies any exertional dyspnea. Denies history of kidney injury. Tolerating oral fluids. [facility] Medical History Abdominal panniculus Anxiety and depression Atherosclerotic heart disease of [place] coronary artery without angina pectoris Back problem BiPAP (biphasic positive airway pressure) dependence Bradycardia Cardiology follow-up encounter Chronic diarrhea Constipation Coronary artery disease Diabetes Diabetes type 2, uncontrolled Dizziness Dyspnea on exertion Edema Essential hypertension Excessive body weight loss Frequent headaches Gastric reflux GERD (gastroesophageal reflux disease) Gynecomastia, male Hearing problem Hiatal hernia High cholesterol High triglycerides History of pneumonia Hx of cardiovascular stress test Hyperlipidemia Hypertension Hypothyroidism Hypothyroidism (acquired) Injury of head and neck Intertrigo Migraine headache Neuropathy Non-smoker Obesity Obstructive sleep apnea Panniculitis, unspecified Preop cardiovascular exam Pressure ulcer of coccygeal region, stage 2 Subdural hematoma (08/03/18) Traumatic brain injury (08/03/18) Vitamin deficiency Wears glasses Wears partial dentures Home Medications omeprazole 20 mg capsule,delayed release 20 mg PO DAILY gerd #30 caps 08/20/18 [Rx Last Taken 01/24/21] cholecalciferol (vitamin D3) 50 mcg (2,000 unit) capsule (Vitamin D3) 2,000 unit PO DAILY supplement 12/31/18 [History Last Taken Unknown] vitamin B complex 1 cap PO BID supplement 12/31/18 [History Last Taken Unknown] melatonin 3 mg tablet 3 mg PO QHS PRN Sleep 03/22/20 [History Last Taken Unknown] zinc 50 mg tablet 50 mg PO DAILY supplement 03/22/20 [History Last Taken Unknown] calcium carbonate 500 mg-vitamin D3 15 mcg (600 unit) tablet 1 ea PO DAILY supplement 05/09/20 [History Last Taken Unknown] atorvastatin 40 mg tablet 40 mg PO QHS cholesterol 10/18/20 [History Last Taken Unknown] citalopram 20 mg tablet (Celexa) 20 mg PO DAILY mood 10/18/20 [History Last Taken Unknown] levothyroxine 100 mcg tablet 100 mcg PO DAILY@0600 thyroid 10/18/20 [History Last Taken 01/24/21] docusate sodium 100 mg capsule (DOK) 100 mg PO BID PRN Constipation 02/16/21 [History Last Taken Unknown] apixaban 5 mg tablet (Eliquis) 5 mg PO BID for DVT #180 tabs 03/26/21 [Rx Last Taken Unknown] vgrhtwpurfli-nckljyjg-gzhxlc tablet (Cerovite Senior) 1 tab PO DAILY 03/29/21 [History Last Taken Unknown] topiramate 50 mg tablet (Topamax) 100 mg PO BID seizures 04/06/21 [History Last Taken Unknown] metformin 500 mg tablet 500 mg PO DAILY 09/26/21 [History Last Taken Unknown] tizanidine 4 mg capsule 4 mg PO QHS PRN 09/26/21 [History Last Taken Unknown] benzonatate 100 mg capsule 100 mg PO TID PRN PRN Cough #20 caps 11/27/21 [Rx Last Taken Unknown] nirmatrelvir 300 mg (150 mg x2)-ritonavir 100 mg tablet,dose pack(EUA) (Paxlovid) See Rx Instructions PO .COMPLEX #30 tabs 11/27/21 [Rx Last Taken Unknown] Allergy/AdvReac Type Severity Reaction Status Date / Time celecoxib [From Celebrex] Allergy Intermediate Rash Verified 11/27/21 14:38 Family History Mother CAD (coronary artery disease) Diabetes History of blood clots Heart disease Hypertension High cholesterol Kidney disease Respiratory disease Seizures CVA (cerebral vascular accident) Father CAD (coronary artery disease) Hypertension Cancer Diabetes Heart disease High cholesterol CVA (cerebral vascular accident) Lung cancer Sister CAD (coronary artery disease) Hypertension Alcoholism Anxiety Suicide attempt Grandfather Diabetes Grandmother Diabetes Surgical History H/O hemorrhoidectomy History of abdominal surgery (07/25/20) History of bilateral mastectomy History of cholecystectomy History of excision of lesion History of gastric bypass History of hernia repair Hx of cholecystectomy Hx of colonoscopy removal of enlarged lymph node removal of lypoma Status post bariatric surgery Stented coronary artery (~02/2009) Social History Smoking Status: Never smoker second hand exposure: No alcohol intake: never substance use type: does not use caffeine: No additional social history: DOES TAKE ASPIRIN DOES TAKE IBUPROFEN ROS ROS ED Constitutional Constitutional ED: Reports chills; Denies fever(s) or sweats Eyes Eyes: Denies change in vision ENT ENT ED: Denies dysphagia or sore throat Cardiovascular Cardiovascular: Denies chest pain, leg edema, palpitations or racing heartbeat Respiratory/Chest Respiratory/Chest: Reports cough; Denies dyspnea or dyspnea on exertion Gastrointestinal Gastrointestinal: Denies abdominal pain, diarrhea, nausea or vomiting Genitourinary Genitourinary ED: Denies dysuria, hematuria or urinary frequency Musculoskeletal Musculoskeletal: Denies back pain, extremity pain or neck pain Integumentary Denies rash or wounds Neurologic Neurologic: Reports headache(s); Denies paresthesias or weakness EXAM Physical Exam Const Vital Signs: 11/27/21 14:36 11/27/21 14:45 Temperature 97.4 F L Temperature Source Temporal Pulse Rate 55 L Respiratory Rate 18 Respiratory Effort Short of Breath Respiratory Pattern Normal Blood Pressure 168/69 H Blood Pressure Mean 102 Pulse Ox 98 Oxygen Delivery Method Room Air Positive well nourished and well developed General Appearance ED: well developed and NAD HEENT Reports moist mucous membranes normocephalic and atraumatic Eyes PERRL, EOMs intact bilaterally and conjunctivae normal General Eye ED: Yes normal appearance of both eyes Neck no lymphadenopathy and supple Neck Narrative: No meningismus General: Negative for tenderness Chest Wall Chest: Negative for tenderness Resp normal respiratory effort and normal air movement Effort and Inspection: symmetric chest movement; Negative for respiratory distress Cardio regular rate, regular rhythm and no murmurs Peripheral Pulses: pulses 2+ throughout GI normal to inspection, nondistended, normoactive bowel sounds and non-tender Palpation: Negative for guarding or rebound tenderness present Back/Spine no CVA tenderness and no thoracic nor lumbar tenderness Extremity normal to inspection General Extremety ED: Negative for edema or tenderness General Extremity: Negative for edema Neuro oriented x3, CN's II-XII intact bilaterally and no sensory deficits noted Sensorium / Orientation: awake and alert Skin no rashes or lesions noted and no wounds MDM MDM MDM Narrative Medical decision making narrative: Patient vital signs stable nontoxic pulse ox 98% on room air. COVID +2 days ago symptomatic 2 days ago. He is well within the window for treatment with Paxlovid. Discussed treatment options he agrees. He is currently not on Eliquis. While taking this medicine he will hold his atorvastatin. He is tolerating oral fluids he will use Tylenol or NSAIDs as needed. He does have a pulse oximeter at home. Return precautions. With his chest discomfort with cough EKG obtained normal sinus bradycardia. All questions were answered. EKG Initial EKG: Attestation: I personally reviewed and interpreted this EKG as follows: Comments: EKG: Sinus rate of 51, no ST changes T wave flattening lead III, nonspecific. Discharge Plan Triage Chief Complaint: Cold Sx ED Provider: He Aviles Dx/Rx/DC Orders Clinical Impression: COVID-19 virus infection, Cough, History of coronary artery disease Instructions: Coronavirus Disease 2019 (COVID-19): Caring for Yourself or Others Prescriptions: New Paxlovid (EUA) 300 mg (150 mg x 2)-100 mg tablets,dose pack See Rx Instructions .ROUTE .COMPLEX Qty: 30 0RF Rx Instructions: take TWO 150 mg tablets of nirmatrelvir with ONE 100 mg tablet of ritonavir twice daily for 5 days benzonatate [benzonatate] 100 mg capsule 100 mg PO TID PRN PRN (Reason: Cough) Qty: 20 0RF No Action cholecalciferol (vitamin D3) [Vitamin D3] 2,000 unit capsule 2,000 unit PO DAILY vitamin B complex Capsule 1 cap PO BID topiramate [Topamax] 50 mg tablet 100 mg PO BID zinc 50 mg tablet 50 mg PO DAILY melatonin 3 mg tablet 3 mg PO QHS PRN (Reason: Sleep) Cerovite Senior Tablet 1 tab PO DAILY metformin 500 mg tablet 500 mg PO DAILY tizanidine 4 mg capsule 4 mg PO QHS PRN omeprazole 20 MG capsule 20 mg PO DAILY Qty: 30 3RF calcium carbonate-vitamin D3 1 EACH tablet 1 ea PO DAILY atorvastatin 40 MG tablet 40 mg PO QHS levothyroxine 100 MCG tablet 100 mcg PO DAILY@0600 citalopram [Celexa] 20 MG tablet 20 mg PO DAILY docusate sodium [DOK] 100 mg capsule 100 mg PO BID PRN (Reason: Constipation) Eliquis 5 mg tablet 5 mg PO BID Qty: 180 3RF Primary Care Provider: Frieda Martinez Referrals: [facility],Frieda Valdez [Primary Care Provider] - Activity Restrictions/Additional Instructions: Hold your atorvastatin while taking this medication. Monitor your pulse oximeter. If increasing shortness of breath with pulse ox less than 88% return for reevaluation. Otherwise follow-up with your PCP. Disposition Disposition: Home, Self Care Discharge Date/Time: 11/27/21 15:13
== END 2021-11-27 15:13 | disposition home or self-care (01) ==
PROVIDERS: Emergency Provider Emergency Medicine; Visit Provider Emergency Medicine
DX: U07.1 COVID-19 (principal); E11.40 Type 2 diabetes mellitus with diabetic neuropathy, unspecified; I10 Essential (primary) hypertension; I25.10 Atherosclerotic heart disease of native coronary artery without angina pectoris; E78.00 Pure hypercholesterolemia, unspecified; E03.9 Hypothyroidism, unspecified; K21.9 Gastro-esophageal reflux disease without esophagitis; G47.33 Obstructive sleep apnea (adult) (pediatric); E66.9 Obesity, unspecified; Z79.84 Long term (current) use of oral hypoglycemic drugs; Z79.01 Long term (current) use of anticoagulants; Z79.890 Hormone replacement therapy; Z79.899 Other long term (current) drug therapy; Z86.718 Personal history of other venous thrombosis and embolism; Z95.5 Presence of coronary angioplasty implant and graft
CPT/HCPCS: 93005; 99282

== ENCOUNTER 2022-03-06 13:00 | Outpatient (RCR) | payer MEDICAID, SELFPAY ==
--- NOTE | 2021-12-24 15:31 | HP.PTEVAL_ITS ---
Patient's Visit Information BRADLEY GREENFIELD is a 61 year old M referred to Physical Therapy by Dr. Chico North MD with a diagnosis of R ISHIAL BURSITIS. Date of Evaluation: 12/24/21 Physical Therapist: Andreina Mckenna PT, Cert MDT - Visit Plan Frequency: 2-3x /Week Duration: 4-6 Weeks Plan: *CHECK AUTH: RECORD # OF VISITS APPROVED AND EXPIRATION DATE. CHECK CODES APPROVED WITH POC*. RIGHT ISHIAL TUB US HEAT, ESTIM, MANUAL THERAPY. R HIP AND PIRIFORMIS STRETCHING. HEP INSTRUCTION. - Subjective Work/Leisure: UNEMPLOYEED X 5 YEARS. Disability: NO BUT FILED. Present symptoms: RIGHT BUTTOCK PAIN. PATIENT REPORTS IT IS WHERE HE SITS. PATIENT DENIES RADIATING SX'S DOWN HIS LEG OR UP HIS BACK. Present since: ABOUT A MONTH AGO. Pain Scale: WORST 7/10, LEAST 5/10. Currently: 5/10. Commenced as a result of: NO APPARENT REASON. Symptoms at onset: SAME. Worse: TRYING TO WALK FAST, TRYING LIFT SOMETHING WHILE TURNING. Better: SITTING IN RECLINER RECLINED, HOT SHOWERS. Disturbed sleep: NO - STATES HE SLEEPS IN HIS RECLINER. Previous history/Previous treatment: UNREMARKABLE. Treatment this episode: NONE. Coughing/sneezing/straining: NEGATIVE. Gait: PATIENT REPORTS HE IS WALKING SLOWER AND WITH A LIMP SINCE THIS PAIN STARTED. DOES NOT USE ANY ASSISTIVE DEVICES. Bowel or Bladder Dysfunction: NO. Accidents: NO. Unexplained weight loss: NO. Imaging: PATIENT REPORTS HE HAD A RECENT RIGHT HIP X-RAY AT THE [facility] THAT THE DR. NORTH TOLD HIM LOOKED OK. L HIP X-RAY THAT INCIDENTLY SHOWED A BONE SPUR BUT THAT SIDE IS NOT BOTHERING HIM. PMH/Recent major surgery: NO HISTORY OF SPINE SURGERY. NO CANCER. MILD HEART ATTACK APPROX 2007 WITH HEART STENT PLACEMENTS. NO STROKE. NIDDM. BARIATRIC SURGERY ABOUT 3 YEARS AGO AND HAS KEPT OFF APPROX 125 LBS. NO JOINT REPLACEMENT SURGERIES. R CTR ABOUT A MONTH AGO. AT THE SAME TIME CTR PATIENT REPORTS THEY MANIPULATED HIS RIGHT ARM BECAUSE HE COULDN'T LIFT IT OVER HIS HEAD. - Objective Sitting/Standing Posture: POOR. FH. RS'S. NO RELEVENT LUMBAR LATERAL SHIFT. Active Correction of posture: NE. Other Observations: INDEP GAIT AND TRANSFERS BUT WALKS WITH DECREASED CADANCE, DECREASED CHELLY STRIDE LENGTH AND MILD LIMP ON THE RIGHT LE. NO AD'S. Sensory deficit: CHELYL LE LIGHT TOUCH SENSATION GROSSLY INTACT AND SYMMETRICAL. ROM deficit: TIGHT CHELLY HIP FLEXORS, HS'S, ACHILLES AND HIP ROTATORS. PATIENT DENIES INCRASED PAIN WITH TESTING EXCEPT IR AND ER TESTING OF RIGHT HIP. Motor deficit: CHELLY LE'S GROSSLY 4/5 WITH MMT'ING. Dural Signs: NEGATIVE CHELLY LE'S. Lumbar mvmt loss: flex - MOD TO LOAN. ext - LOAN. R SG - MOD. L SG - MOD. PATIENT DENIES INCREASED BACK PAIN WITH LUMBAR ROM TESTING ALL PLANES. Core strength: POOR. Palpation: RIGHT ISHIAL TUB REGION TENDERNESS. NO ACUTE LUMBAR TENDERNESS. - Balance/Special Test Scores Lower Extremity Functional Score: 33 - Goals Goal 1:: DECREASE C/O RIGHT BUTTOCK AREA PAIN Goal Time Frame: 4-6 Weeks Goal 2:: IMPROVE STANDING, WALKING AND ADL FUNCTION Goal Time Frame: 4-6 Weeks Goal 3:: PATIENT WILL BE INDEP WITH A HEP FOR CONTINUED IMPROVEMENT ONCE FORMAL PHYSICAL THERAPY CONCLUDES. - Anticipated Interventions Patient/Client Instruction: Educate patient on: Condition, Plan of Care, Risk Factors For the Purpose of:: To improve self management Therapeutic Exercise to Include: Strength training, Flexibilty training, Gait and locomotor training For the Purpose of:: To decrease pain, To increase ROM, To improve muscle performance and motor function, To increase tolerance to activity/condition/position, To improve ability of physical actions for home/community/work/leisure, To improve gait and locomotor functions Manual Therapy Techniques to Include: Soft tissue mobilization For the Purpose of:: To decrease pain, To improve nutrient delivery to tissue TENS: Yes IF ES: Yes Thermo therapy (hot pack): Yes Ultrasound (thermal/non thermal): Yes For the Purpose of:: To decrease pain, To improve nutrient delivery to tissue Thank you for the opportunity to evaluate your patient. For Medicare and Medicare HMO plans, please review the plan of care and approve it. It will need to be FAXED BACK to us at [phone] for Medicare purposes. For Medicare only, by signing this I certify the plan of care. Please let me know if there are questions or concerns regarding this plan of care. Physician Signature: Date:
--- NOTE | 2022-01-10 07:59 | HP.OTEVAL ---
Patient's Visit Information BRADLEY GREENFIELD is a 61 year old M, referred to Occupational Therapy by Dr. Chico Franz MD, with a diagnosis of CTS. Date of Evaluation: 01/09/22 Occupational Therapist: Anne Emerson, OTR/Cory, CHT - Subjective This 61 year old male was seen for OT eval with dx of CTS s/p 9 weeks CTR. Pt states he had issues with writing, weakness and numbness and tingling for a long time. Pt states he went for nerve conduction test indication of median nerve involvement- pt states he has had issues with bilateral shoulders- pt states he had sx 9 weeks ago for right CTR and has pain with use of his right hand- pt states he had issues with writing and opening containers. Pt also reports he has had shoulder issues in the past and has therapy multiple times. pt would like to get strength back and decrease his pain. - ADLs Kitchen: Open jars, Open bottle caps Miscellaneous: Open medication bottle, Write Comments: difficulty with writing - Pain right hand 7 Pain Intensity Range: 7 - ROM Wrist: right 60/45 left 65/55 ROM Comments: all other digit ROM WNL. pt demo with poor sitting postures with shoulders rolled forward. pt demo with limited bilateral shoulder ROM ( past hx issues) - Strength Roll Shop Supervisor: 20# left 25# Lateral Pinch: right unable left 4# Tripod Pinch: right unable left 6# Tip-to-Tip Pinch: right unable left 4# Strength Comments: pt demo with muscle wasting of 1st dorsal interosseous - Sensation Sensation Comments: denies - Nine Hole Peg Right: 30.26 Left: 31.08 - Quick DASH-Disab of Arm,Shoulder& Hand Quick DASH Score: 63.6350 - Goals Goal:: pt will demo a increase in right electrical control assembler strength by 30# or greater to increase pts ind. with ADLs and IADls by d/c Goal:: pt will demo a increase in BUE shoulder flex by 50* or greater to decrease poor postural alignment by d.c. pt will demo a increase in right wrist ROM equal to left to increase pts ind. with ADLs and IADLs by dc Goal:: pt will report no pain greater than 2/10 with use of right hand with ADLs and IADLs by d/c Goal:: pt will demo understanding of scar mtg by end of 3rd session to decrease scar sensitivity by d/c Goal:: pt will demo good seated posture to limit symptoms of nerve compression Goal:: pt will demo the ability to write name legibly by d/c - Rehabilitation General Assessment: pt is s/p 9 weeks CTR and demo with scar hypertrophy pain and weakness limiting his IND. with ADls and IADls. pt would benefit from skilled OT services 2x week for 4 weeks to ed. pt on dx. surgery recovery, scar mtg and strengthen pt to return to a PLOF. Today therapist ed. pt on scar mtg. and scar desensitization- therapy will transition pt to postural correction and nerve glides. pt demo understanding and agree to POC. Rehabilitation Potential: Good - Anticipated Interventions A/AAROM/PROM, Strengthening, Scar Care, Modalities, Orthoses, Joint Protection/Energy Conservation, Ergonomic Education, Fine Motor Coord/Brett, Education re assistive Equipment, Home Program - Visit Plan Frequency: 1-2x /Week Duration: 4 Weeks TEXT: Thank you for the opportunity to evaluate your patient. For Medicare and Medicare HMO plans, please review the plan of care and approve it. It will need to be FAXED BACK to us at [phone] for Medicare purposes. Please let me know if there are questions or concerns regarding this plan of care. Physician Signature: Date:
--- NOTE | 2022-01-24 10:58 | HP.PTDCSUM_ITS ---
It has been my pleasure to treat BRADLEY GREENFIELD referred by Dr. Chico Franz MD, with the diagnosis of R ISHIAL BURSITIS for a total of 9 visit(s). Discharge Date: Please see the following information for a summary of their discharge status. Subjective: PATIENT REPROTS HIS WALKING IS BETTER. LESS PAIN WITH WALKING. REPORTS COMPLIANCE WITH HOME STRETCHING. right PSIS Pain Intensity (Out of 10): 0 % Improvement: 75 Objective/Function: PATIENT WAS SEEN TODAY FOR RE-ASSESSMENT OF PROGRESS TOWARD THE SET PT GOALS AND THE NEED FOR FURTHER PHYSICAL THERAPY VS READINESS FOR DISCHARGE. UPON EXAM TODAY THERE ARE NO SIGNIFICANT CHANGES SINCE INITIAL EVAL EXCEPT PATIENTS LIMP HAS DECREASED WITH WALKING, HIS CADANCE HAS IMPROVED AND HE REPORTS DECREASED PAIN WITH WALKING. HE IS INDEP WITH HOME STRETCHING AND APPROPRIATE FOR DISCHARGE. PATIENT AGREEABLE. PATIENT PLANS TO START PT NEXT WEEK FOR HIS SHLD. Goal 1:: DECREASE C/O RIGHT BUTTOCK AREA PAIN Goal Progress: Goal Met Goal 2:: IMPROVE STANDING, WALKING AND ADL FUNCTION Goal Progress: Goal Met Goal 3:: PATIENT WILL BE INDEP WITH A HEP FOR CONTINUED IMPROVEMENT ONCE FORMAL PHYSICAL THERAPY CONCLUDES. Goal Progress: Goal Met Plan: D/C. PATIENT AGREEABLE. If there are questions or concerns regarding this patient's physical therapy, pl chato feel free to call me at [phone]. Thank you for the referral of this patient. Sincerely, Andreina Mckenna, PT, Cert MDT Balance/Gait/Functional tests - Balance/Special Test Scores Lower Extremity Functional Score: 42
--- NOTE | 2022-01-28 14:53 | HP.PTEVAL2 ---
Patient's Visit Information BRADLEY GREENFIELD is a 61 year old M referred to Physical Therapy by Dr. Chico Franz MD with a diagnosis of R shoulder Adhesive Capsulitis. Date of Evaluation: 01/28/22 Physical Therapist: FABY Vera - Visit Plan Frequency: 2-3x /Week Duration: 2 Months Plan: 2-3X/ week for PROM, AAROM, AROM, stretching, strengthening, postural exercises with HEP. HEP: supine wand flexion to increase ROM - Subjective Subjective: Pt had a R shoulder manipulation for a frozen shoulder and when he had it done he had to cancel PT cause he got COVID. He had the manipulation 9 weeks. was upset that he did not get into PT. He is using his R arm. His R arm is sore from OT today working on his Carpal Tunnel. He still has pain with movement. If PT does not help than he will get a cortizone shot and then another procedure in [place]. Pt has a partial tear on his L shoulder and CT on the L. He sleeps in a recliner due to having to wear a bi-pap machine. - Pain R shoulder pain Intensity: 0 Pain Intensity Range: 7 Comment: with movement - Objective Objective: R handed: B senior support engineer strength 5#. R shoulder AROM: R flexion 55degrees, 65 degrees abd, IR PSIS, ER -5 degrees from neutral. L shoulder flex 89 degrees, Abd 72 degrees, IR L4, ER 2 degrees. R shoulder MMT: flex 4.1, ER 4.5#. L shoulder MMT: flex 3.9, ER 5.3#. R shoulder PROM: 94 PROM flexion and 18 PROM ER - Goals Goal 1:: I HEP Goal Time Frame: 4-6 Weeks Goal 2:: Increase R shouder AROM to 120 degrees flexion (at time of the eval: shoulder flexion on the R 55 degrees) Goal Time Frame: 6-8 Weeks Goal 3:: Be able to use his R arm for ADL's without pain Goal Time Frame: 6-8 Weeks Goal 4:: Increase R shoulder flex and ER strength (at time of the eval: 4.1# and 4.5#) Goal Time Frame: 6-8 Weeks - Rehabilitation Potential Rehabilitation Potential: Good - Anticipated Interventions Patient/Client Instruction: Educate patient on: Condition, Plan of Care For the Purpose of:: To decrease pain, To increase ROM, To improve nutrient delivery to tissue, To improve muscle performance and motor function, To improve ability to perform ADL's, To increase tolerance to activity/condition/position, To improve performance and independence with ADL's, To decrease level of supervision to perform tasks, To improve ability of physical actions for home/community/work/leisure, To improve health of tissue, To decrease soft tissue restriction, To increase flexibility/ROM Therapeutic Exercise to Include: Strength training, Postural training, Flexibilty training, Neuromotor development, Passive ROM, Active ROM, Scapular Strength/Stabilization For the Purpose of:: To decrease pain, To increase ROM, To improve nutrient delivery to tissue, To increase oxygenation perfusion, To improve muscle performance and motor function, To improve ability to perform ADL's, To increase tolerance to activity/condition/position, To improve performance and independence with ADL's, To decrease level of supervision to perform tasks, To improve ability of physical actions for home/community/work/leisure, To improve health of tissue, To decrease soft tissue restriction, To increase flexibility/ROM Manual Therapy Techniques to Include: Mobilization, Passive ROM For the Purpose of:: To decrease pain, To increase ROM, To improve nutrient delivery to tissue Cryotherapy (ice pack, ice massage): Yes - PRN Thermo therapy (hot pack): Yes - PRN For the Purpose of:: To decrease pain, To increase ROM, To improve nutrient delivery to tissue, To improve muscle performance and motor function Thank you for the opportunity to evaluate your patient. For Medicare and Medicare HMO plans, please review the plan of care and approve it. It will need to be FAXED BACK to us at [phone] for Medicare purposes. For Medicare only, by signing this I certify the plan of care. Please let me know if there are questions or concerns regarding this plan of care. Physician Signature: Date:
--- NOTE | 2022-02-05 07:09 | HP.OTREVAL ---
Dr. Chico Franz MD, It has been my pleasure to treat BRADLEY GREENFIELD over the last 7 visits for CTS. Please see the progress note below for an update on the occupational therapy plan of care! Subjective: Pt. stated that they are summitting for help w/ medical bills. was upset because they are struggling w/ the process. Objective/Function: Almond Blancher Hand: 5# left 5#. Lateral Pinch: right- 2# left-2#. Tripod Pinch: unable both hands. pt demo with decrease in strength and reports no increase in gains with function without pain. Plan Frequency: 1-2x /Week Duration: 3 Weeks Plan: advised pt to return to for further assessment. will continue strengthening as pt tolerates 2x week for 3 week. Goals - Goals Patient Goals: Regain Strength, Decrease Pain, Use Hand/Wrist/Arm Normally Again Goal:: pt will demo a increase in right educational therapist strength by 30# or greater to increase pts ind. with ADLs and IADls by d/c Goal:: pt will demo a increase in BUE shoulder flex by 50* or greater to decrease poor postural alignment by d.c. pt will demo a increase in right wrist ROM equal to left to increase pts ind. with ADLs and IADLs by dc Goal:: pt will report no pain greater than 2/10 with use of right hand with ADLs and IADLs by d/c Goal:: pt will demo understanding of scar mtg by end of 3rd session to decrease scar sensitivity by d/c Goal:: pt will demo good seated posture to limit symptoms of nerve compression Goal:: pt will demo the ability to write name legibly by d/c Anticipated Interventions Anticipated Interventions: A/AAROM/PROM, Strengthening, Scar Care, Modalities, Orthoses, Joint Protection/Energy Conservation, Ergonomic Education, Fine Motor Coord/Brett, Education re assistive Equipment, Home Program Please do not hesitate to contact me at [phone] by phone or if you have questions or concerns regarding this new plan of care! Sincerely, Anne Emerson, OTR/L, CHT
--- NOTE | 2022-03-06 13:58 | HP.PTREVAL ---
Dr. Chico Franz MD, It has been my pleasure to treat BRADLEY GREENFIELD over the last 9 visits for R ISHIAL BURSITIS. Please see the progress note below for an update on the physical therapy plan of care! Subjective: PATIENT REPROTS HIS WALKING IS BETTER. LESS PAIN WITH WALKING. REPORTS COMPLIANCE WITH HOME STRETCHING. Objective/Function: PATIENT WAS SEEN TODAY FOR RE-ASSESSMENT OF PROGRESS TOWARD THE SET PT GOALS AND THE NEED FOR FURTHER PHYSICAL THERAPY VS READINESS FOR DISCHARGE. UPON EXAM TODAY THERE ARE NO SIGNIFICANT CHANGES SINCE INITIAL EVAL EXCEPT PATIENTS LIMP HAS DECREASED WITH WALKING, HIS CADANCE HAS IMPROVED AND HE REPORTS DECREASED PAIN WITH WALKING. HE IS INDEP WITH HOME STRETCHING AND APPROPRIATE FOR DISCHARGE. PATIENT AGREEABLE. PATIENT PLANS TO START PT NEXT WEEK FOR HIS SHLD. Plan Plan: D/C. PATIENT AGREEABLE. Balance/Gait/Functional tests - Balance/Special Test Scores Lower Extremity Functional Score: 42 Quick DASH Score: 77.2725 Goals Goal 1:: DECREASE C/O RIGHT BUTTOCK AREA PAIN Goal Time Frame: 4-6 Weeks Goal Progress: Goal Met Goal 2:: IMPROVE STANDING, WALKING AND ADL FUNCTION Goal Time Frame: 4-6 Weeks Goal Progress: Goal Met Goal 3:: PATIENT WILL BE INDEP WITH A HEP FOR CONTINUED IMPROVEMENT ONCE FORMAL PHYSICAL THERAPY CONCLUDES. Goal Progress: Goal Met Anticipated Interventions Patient/Client Instruction: Educate patient on: Condition, Plan of Care, Risk Factors For the Purpose of:: To improve self management Therapeutic Exercise to Include: Strength training, Flexibilty training, Gait and locomotor training For the Purpose of:: To decrease pain, To increase ROM, To improve muscle performance and motor function, To increase tolerance to activity/condition/position, To improve ability of physical actions for home/community/work/leisure, To improve gait and locomotor functions Manual Therapy Techniques to Include: Soft tissue mobilization For the Purpose of:: To decrease pain, To improve nutrient delivery to tissue TENS: Yes IF ES: Yes Thermo therapy (hot pack): Yes Ultrasound (thermal/non thermal): Yes For the Purpose of:: To decrease pain, To improve nutrient delivery to tissue Please do not hesitate to contact me at [phone] by phone or if you have questions or concerns regarding this new plan of care! Sincerely, Merari Edwards, MPT
== END 2022-03-06 19:00 | disposition home or self-care (01) ==
LOC: PT 13:00
PROVIDERS: Referring Provider Orthopaedic Surgery; Visit Provider Orthopaedic Surgery
DX: M70.71 Other bursitis of hip, right hip (principal); G56.01 Carpal tunnel syndrome, right upper limb
CPT/HCPCS: 97035; 97110; 97140; 97161; 97162; 97164; 97166; 97168; 97530

== ENCOUNTER 2022-04-06 12:30 | Emergency (ER) | payer MEDICAID, SELFPAY ==
[2022-04-06 12:32] VITALS: BP 141/71; PULSE 57; RESP 16; TEMP 36.4; O2SAT 100; BMI 36.6
--- NOTE | 2022-04-06 14:09 | EDS_ITS ---
HPI History of Present Illness Chief Complaint: Chest Other Informant: patient Onset/Context/Timing Onset: Yesterday Mechanism/Context: Fall Quality of Pain: Stabbing Location: Right ribs Worsened by: Breathing, laughing, coughing Relieved by: Nothing Associated Symptoms Associated Symptoms: Negative for Parasthesias, Weakness, Loss of function, Inability to ambulate, Loss of consciousness or Amnesia Narrative Narrative: Patient presents with right-sided rib pain that began after a fall yesterday. Patient states he was walking on muddy ground when he slipped and fell. Patient states he was trying to get into his vehicle and hit the right side of his chest on the door in concrete driveway. Patient states the pain is constant. Patient describes it as stabbing. Patient states it is worse with deep breathing. Patient denies any loss of consciousness. Patient has had a prior traumatic brain injury. Patient admits to some pain in his neck. Patient admits to a mild headache. Also complains of pain in his right thigh. Patient has been able to ambulate since the fall. [facility] Medical History Abdominal panniculus Anxiety and depression Atherosclerotic heart disease of [place] coronary artery without angina pectoris Back problem BiPAP (biphasic positive airway pressure) dependence Bradycardia Cardiology follow-up encounter Chronic diarrhea Constipation Coronary artery disease Diabetes Diabetes type 2, uncontrolled Dizziness Dyspnea on exertion Edema Essential hypertension Excessive body weight loss Frequent headaches Gastric reflux GERD (gastroesophageal reflux disease) Gynecomastia, male Hearing problem Hiatal hernia High cholesterol High triglycerides History of pneumonia Hx of cardiovascular stress test Hyperlipidemia Hypertension Hypothyroidism Hypothyroidism (acquired) Injury of head and neck Intertrigo Migraine headache Neuropathy Non-smoker Obesity Obstructive sleep apnea Panniculitis, unspecified Preop cardiovascular exam Pressure ulcer of coccygeal region, stage 2 Subdural hematoma (08/03/18) Traumatic brain injury (08/03/18) Vitamin deficiency Wears glasses Wears partial dentures Home Medications omeprazole 20 mg capsule,delayed release 20 mg PO DAILY gerd #30 caps 08/20/18 [Rx Last Taken 01/24/21] cholecalciferol (vitamin D3) 50 mcg (2,000 unit) capsule (Vitamin D3) 2,000 unit PO DAILY supplement 12/31/18 [History Last Taken Unknown] vitamin B complex 1 cap PO BID supplement 12/31/18 [History Last Taken Unknown] melatonin 3 mg tablet 3 mg PO QHS PRN Sleep 03/22/20 [History Last Taken Unknown] zinc 50 mg tablet 50 mg PO DAILY supplement 03/22/20 [History Last Taken Unknown] calcium carbonate 500 mg-vitamin D3 15 mcg (600 unit) tablet 1 ea PO DAILY supplement 05/09/20 [History Last Taken Unknown] citalopram 20 mg tablet (Celexa) 20 mg PO DAILY mood 10/18/20 [History Last Taken Unknown] levothyroxine 100 mcg tablet 100 mcg PO DAILY@0600 thyroid 10/18/20 [History Last Taken 01/24/21] docusate sodium 100 mg capsule (DOK) 100 mg PO BID PRN Constipation 02/16/21 [History Last Taken Unknown] kmpfmxlreabh-meqnvnzp-zwhywz tablet (Cerovite Senior) 1 tab PO DAILY 03/29/21 [History Last Taken Unknown] topiramate 50 mg tablet (Topamax) 100 mg PO BID seizures 04/06/21 [History Last Taken Unknown] metformin 500 mg tablet 500 mg PO DAILY 09/26/21 [History Last Taken Unknown] rimegepant 75 mg disintegrating tablet (Nurtec ODT) 75 mg PO ONCE PRN 02/25/22 [History Last Taken Unknown] atorvastatin 40 mg tablet 40 mg PO QHS cholesterol #90 tabs 03/27/22 [Rx Last Taken Unknown] semaglutide 0.25 mg or 0.5 mg (2 mg/1.5 mL) subcutaneous pen injector (Ozempic) 0.25 mg subcut QWEEK 03/27/22 [History Last Taken Unknown] Allergy/AdvReac Type Severity Reaction Status Date / Time celecoxib [From Celebrex] Allergy Intermediate Rash Verified 04/06/22 12:32 Family History (Reviewed 03/27/22 @ 14:12 by Tashi Santo AUTOMATIC EQUIPMENT TECHNICIAN, AUTOMATIC EQUIPMENT TECHNICIAN-C) Mother CAD (coronary artery disease) Diabetes History of blood clots Heart disease Hypertension High cholesterol Kidney disease Respiratory disease Seizures CVA (cerebral vascular accident) Father CAD (coronary artery disease) Hypertension Cancer Diabetes Heart disease High cholesterol CVA (cerebral vascular accident) Lung cancer Sister CAD (coronary artery disease) Hypertension Alcoholism Anxiety Suicide attempt Grandfather Diabetes Grandmother Diabetes Surgical History H/O hemorrhoidectomy History of abdominal surgery (07/25/20) History of bilateral mastectomy History of cholecystectomy History of excision of lesion History of gastric bypass History of hernia repair Hx of cholecystectomy Hx of colonoscopy removal of enlarged lymph node removal of lypoma Status post bariatric surgery Stented coronary artery (~02/2009) Social History Smoking Status: Never smoker second hand exposure: No alcohol intake: never substance use type: does not use caffeine: No additional social history: DOES TAKE ASPIRIN DOES TAKE IBUPROFEN ROS ROS ED Constitutional Constitutional ED: Denies chills or fever(s) Eyes Eyes: Denies blurry vision or change in vision ENT ENT ED: Denies rhinorrhea or sore throat Cardiovascular Cardiovascular: Reports chest pain; Denies palpitations Respiratory/Chest Respiratory/Chest: Denies cough or dyspnea Gastrointestinal Gastrointestinal: Denies nausea or vomiting Genitourinary Genitourinary ED: Denies dysuria or hematuria Musculoskeletal Musculoskeletal: Reports neck pain; Denies back pain Integumentary Denies abscess or rash Neurologic Neurologic: Reports headache(s); Denies weakness Allergic/Immunologic Allergic/Immunologic ED: Denies mouth swelling or urticaria EXAM Physical Exam Const Vital Signs: 04/06/22 12:32 04/06/22 14:13 Temperature 97.5 F L Temperature Source Temporal Pulse Rate 57 L Respiratory Rate 16 Respiratory Effort Normal Non-Labored Blood Pressure 141/71 H Blood Pressure Mean 94 Pulse Ox 100 Oxygen Delivery Method Room Air Positive well nourished and well developed General Appearance ED: well developed HEENT Reports moist mucous membranes HEENT Narrative: There is mild tenderness over the right parietal area. There is no edema or ecchymosis. There is no bony crepitance or step-off. tenderness Neck full ROM, supple and no JVD Neck Narrative: There is mild tenderness over the left paraspinal muscles. There is no midline tenderness. There is no bony crepitance or step-off. There is good range of motion. Chest Wall Chest Narrative: There is tenderness over the right lower ribs. There is no bony crepitance or step-off. There is no subcutaneous emphysema noted. Resp normal respiratory effort and clear to auscultation bilaterally Cardio regular rate and regular rhythm GI normal to inspection, nondistended, normoactive bowel sounds and non-tender Palpation: soft Extremity normal to inspection General Extremety ED: Negative for edema or tenderness General Extremity: Negative for edema Neuro oriented x3, CN's II-XII intact bilaterally and no sensory deficits noted Sensorium / Orientation: alert Motor Exam: strength 5/5 throughout Psych mental status grossly normal Skin no rashes or lesions noted MDM MDM MDM Narrative Medical decision making narrative: Differential diagnosis includes rib fracture, chest wall contusion, pneumothorax, closed head injury, intracranial bleeding, cervical strain, lower extremity contusion, lower extremity strain. We will obtain rib x-rays to assess for rib fracture and pneumothorax. We will obtain a CT scan of the brain to check for intracranial bleeding since he is concerned about this from his prior traumatic brain injury. Radiography Diagnostic Testing: Clinical Impression(s) from Imaging Studies Brain CT 04/06/22 14:17 IMPRESSION: No acute intracranial abnormality. No interval change. Electronically Signed: Brent Cheung MD at 14:43 EST , Ribs w/Chest X-Ray 04/06/22 14:34 IMPRESSION: Normal chest and right ribs series. Electronically Signed: Brent Cheung MD at 14:56 EST , CT scan of the brain was obtained. There is no acute intracranial abnormality. This was interpreted by the radiologist and was also independently reviewed by myself. X-rays of the right ribs were obtained. There are 5 views. On my independent interpretation, there is no acute fracture. There is no pneumothorax. There is no acute cardiopulmonary process. Radiologist also interpreted the x-rays and agrees. Treatment and Re-Evaluation Narrative: Patient feels better on reevaluation. Patient was advised of his findings. Patient was instructed to use ice to the area. Patient was instructed to take 10-15 deep breaths every hour while awake to prevent atelectasis and pneumonia. Patient was also given head injury instructions. Patient was instructed to take Tylenol or ibuprofen as needed for pain. Patient understood and was agreeable with the plan. All questions were answered. Discharge Plan Triage Chief Complaint: Chest Other ED Provider: Jay Marshall Dx/Rx/DC Orders Clinical Impression: Chest wall contusion, Closed head injury Instructions: ED Chest Wall Contusion, ED Head Injury (Adult) Prescriptions: No Action cholecalciferol (vitamin D3) [Vitamin D3] 2,000 unit capsule 2,000 unit PO DAILY vitamin B complex Capsule 1 cap PO BID topiramate [Topamax] 50 mg tablet 100 mg PO BID zinc 50 mg tablet 50 mg PO DAILY melatonin 3 mg tablet 3 mg PO QHS PRN (Reason: Sleep) Cerovite Senior Tablet 1 tab PO DAILY metformin 500 mg tablet 500 mg PO DAILY Ozempic 0.25 mg or 0.5 mg(2 mg/1.5 mL) pen injector 0.25 mg subcut QWEEK Rx Instructions: for 4 doses atorvastatin 40 mg tablet 40 mg PO QHS Qty: 90 3RF Nurtec ODT 75 mg tablet,disintegrating 75 mg PO ONCE PRN Rx Instructions: as a single dose omeprazole 20 MG capsule 20 mg PO DAILY Qty: 30 3RF calcium carbonate-vitamin D3 1 EACH tablet 1 ea PO DAILY levothyroxine 100 MCG tablet 100 mcg PO DAILY@0600 citalopram [Celexa] 20 MG tablet 20 mg PO DAILY docusate sodium [DOK] 100 mg capsule 100 mg PO BID PRN (Reason: Constipation) Primary Care Provider: [facility] Frieda Nick Referrals: [facility] Frieda Nick [Primary Care Provider] - 5-7 Days Disposition Disposition: Home, Self Care
--- NOTE | 2022-04-06 14:17 | CT_ITS ---
EXAM: CT HEAD WITHOUT INTRAVENOUS CONTRAST CLINICAL INDICATION: Injury/Pain TECHNIQUE: Multiple axial images were obtained of the head without intravenous contrast. This CT exam was performed using one or more of the following dose reduction techniques: automated exposure control, adjustment of the mA and/or kV according to patient size, and/or use of iterative reconstruction technique. This report was created using [employer] report generation technology. COMPARISON: CT Head dated 10/24/2018 FINDINGS: BRAIN AND EXTRA-AXIAL SPACES: Normal. No intra- or extra-axial hemorrhage. No evidence of acute infarct. No intracranial mass or mass effect. There is preservation of the george/white matter interface. Posterior fossa structures are unremarkable. Ventricles are appropriate for age. No hydrocephalus. Basal cisterns are patent. BONES/JOINTS: Normal. No discrete lytic or blastic abnormalities. SOFT TISSUES: Left parieto-occipital scalp swelling. SINUSES: Stable mild mucosal thickening within the right sphenoid sinus. MASTOID AIR CELLS: Normal. Clear. ORBITS: Visualized globes, extraocular muscles, optic nerves and retrobulbar fat appear unremarkable. CT/Brain/Head without Contrast IMPRESSION: No acute intracranial abnormality. No interval change. Electronically Signed: Brent Cheung MD at 14:43 EST ,
--- NOTE | 2022-04-06 14:34 | RAD_ITS ---
EXAM: XR RIGHT RIBS AND AP CHEST, 3 OR MORE VIEWS CLINICAL INDICATION: Trauma TECHNIQUE: Frontal and oblique views of the right ribs and frontal view of the chest. This report was created using [employer] report generation technology. COMPARISON: Chest radiograph 06/11/2019. FINDINGS: LUNGS AND PLEURAL SPACES: Normal. No consolidation or edema. No pneumothorax. No effusion. HEART: Normal. Normal heart size. MEDIASTINUM: No mediastinal or hilar mass. BONES/JOINTS: No acute abnormality. RAD/Ribs Uni Min 3V w/PA Chest IMPRESSION: Normal chest and right ribs series. Electronically Signed: Brent Cheung MD at 14:56 EST ,
== END 2022-04-06 15:52 | disposition home or self-care (01) ==
PROVIDERS: Emergency Provider Emergency Medicine; Visit Provider Emergency Medicine
DX: S09.90XA Unspecified injury of head, initial encounter (principal); E11.40 Type 2 diabetes mellitus with diabetic neuropathy, unspecified; I25.10 Atherosclerotic heart disease of native coronary artery without angina pectoris; E78.5 Hyperlipidemia, unspecified; S20.20XA Contusion of thorax, unspecified, initial encounter; M79.651 Pain in right thigh; I10 Essential (primary) hypertension; W19.XXXA Unspecified fall, initial encounter
CPT/HCPCS: 70450; 71101; 99282

== ENCOUNTER → 2022-04-11 | Outpatient (CLI) | payer MEDICAID, SELFPAY ==
[2022-04-11 14:27] LABS: Absolute Lymphocyte Count 1.91 X10^3/uL (0.83-4.51); Absolute Neutrophil Count 3.6 X10^3/uL (2.0-7.7); Basophil# 0.05 X10^3/uL; Basophil% 0.8 % (0-1); Eosinophil# 0.23 X10^3/uL; Eosinophils% 3.7 % (0-5); Hemoglobin 15.6 g/dL (13.0-16.5); Lymphocyte # 1.91 X10^3/ul (0.83-4.51); Lymphocyte % 30.8 % (19-41); Mean Corp Hgb Conc 33.9 g/dL (32-36); Mean Corpuscular Volume 91.5 fL (80-94); Mean Platelet Vol. 10.3 fl (6.2-12.0); Monocyte# 0.37 X10^3/uL; NRBC Flagged by Analyzer 0 % (0-5); Neutrophil # 3.62 X10^3/uL (2.7-7.7); Neutrophil % 58.2 % (47-70); Platelet Count 189 K/mm3 (150-450); RBC Distribution Width CV 12.8 % (11.6-14.6); RBC Distribution Width SD 42.7 fl (35.1-43.9); Red Blood Count 5.03 M/mm3 (4.6-6.2); White Blood Count 6.2 K/mm3 (4.4-11.0)
[2022-04-11 15:01] LABS: ALB/GLOB Ratio 1.3 RATIO (0.9-2.4); AST(SGOT) 26 U/L (15-37); Alanine Aminotransfer ALT/SGPT 34 U/L (16-61); Albumin, Serum 3.7 g/dL (3.2-5.0); Alkaline Phosphatase 117 U/L (45-117); Anion Gap 8 (5-15); BUN 15 mg/dL (7-18); BUN/Creat Ratio 14.4 RATIO (10-20); Bilirubin, Direct 0.21 mg/dL (0.00-0.30); Calcium,Total 8.6 mg/dL (8.5-10.1); Chloride 113 mmol/L (98-107); Cholesterol 93 mg/dL (200); Creatinine, Serum 1.04 mg/dL (0.70-1.30); EST Glomerular Filtration Rate 77 mL/min (>60); Est Glom Filt Rate - Afr Amer 93 mL/min (>60); Globulin 2.9 g/dL (2.2-4.2); Glucose 134 mg/dL (74-106); High Density Lipoprotein 45 mg/dL; Potassium 4.1 mmol/L (3.5-5.1); Protein, Total 6.6 g/dL (6.4-8.2); Sodium Level 145 mmol/L (136-145); Thyroid Stim Hormone (TSH) 0.63 uIU/mL (0.358-3.74); Triglycerides 88 mg/dL; Very Low Density Lipoprotein 18 mg/dL (5-40)
== END | disposition home or self-care (01) ==
PROVIDERS: Internal Medicine Cardiovascular Disease; Referring Provider Nurse Practitioner Family; Visit Provider Nurse Practitioner Family
DX: I10 Essential (primary) hypertension (principal); E11.9 Type 2 diabetes mellitus without complications; E03.9 Hypothyroidism, unspecified
CPT/HCPCS: 36415; 80053; 80061; 82248; 83036; 84443; 85025

== ENCOUNTER → 2022-10-11 | Outpatient (CLI) | payer MEDICARE, SELFPAY ==
[2022-10-11 14:18] LABS: Hematocrit 44.9 % (40-54); Hemoglobin 14.6 g/dL (13.0-16.5); Mean Corp Hgb Conc 32.5 g/dL (32-36); Mean Corpuscular Hgb 30.6 pg (27.0-32.0); Mean Corpuscular Volume 94.1 fL (80-94); Mean Platelet Vol. 10.5 fl (6.2-12.0); Platelet Count 169 K/mm3 (150-450); RBC Distribution Width CV 13.3 % (11.6-14.6); RBC Distribution Width SD 46.2 fl (35.1-43.9); Red Blood Count 4.77 M/mm3 (4.6-6.2); White Blood Count 5.8 K/mm3 (4.4-11.0)
[2022-10-11 14:39] LABS: Microalbumin,Random Urine 8.8 mg/L (NO RANGE EST.)
[2022-10-11 15:07] LABS: ALB/GLOB Ratio 1.2 RATIO (0.9-2.4); AST(SGOT) 21 U/L (15-37); Alanine Aminotransfer ALT/SGPT 34 U/L (16-61); Albumin, Serum 3.4 g/dL (3.2-5.0); Alkaline Phosphatase 109 U/L (45-117); Anion Gap 7 (5-15); BUN 13 mg/dL (7-18); BUN/Creat Ratio 12.9 RATIO (10-20); Calcium,Total 8.5 mg/dL (8.5-10.1); Chloride 113 mmol/L (98-107); Cholesterol 95 mg/dL (200); Creatinine, Serum 1.01 mg/dL (0.70-1.30); EST Glomerular Filtration Rate 80 mL/min (>60); Est Glom Filt Rate - Afr Amer 96 mL/min (>60); Globulin 2.8 g/dL (2.2-4.2); Glucose 82 mg/dL (74-106); High Density Lipoprotein 56 mg/dL; Potassium 4.1 mmol/L (3.5-5.1); Protein, Total 6.2 g/dL (6.4-8.2); Sodium Level 143 mmol/L (136-145); Thyroid Stim Hormone (TSH) 0.41 uIU/mL (0.358-3.74); Triglycerides 60 mg/dL; Very Low Density Lipoprotein 12 mg/dL (5-40)
== END | disposition home or self-care (01) ==
LOC: LAB 13:26
PROVIDERS: Referring Provider Nurse Practitioner Family; Visit Provider Nurse Practitioner Family
DX: I10 Essential (primary) hypertension (principal); E11.9 Type 2 diabetes mellitus without complications; E78.5 Hyperlipidemia, unspecified; E03.9 Hypothyroidism, unspecified
CPT/HCPCS: 36415; 80053; 80061; 82043; 84443; 85027

== ENCOUNTER 2022-10-24 12:30 | Outpatient (RCR) | payer MEDICAID, OTHER, MEDICARE, SELFPAY ==
--- NOTE | 2022-06-14 10:22 | HP.PTEVAL_ITS ---
Patient's Visit Information BRADLEY GREENFIELD is a 61 year old M referred to Physical Therapy by TINO SPENCE with a diagnosis of Right Adhesive Capsulitis Surgery 05/29/22. Date of Evaluation: 06/14/22 Physical Therapist: Brinda Pepper DPT - Visit Plan Frequency: 3x /Week Duration: 4 Weeks Plan: 05/29/22 Right Shoulder Surgery for Adhesive Capsulitis- Focus on ROM (PROM, AAROM and AROM) and scapular strength/stabilization. HEP Given IE: postural education, education on importance of movement, table walk away, elbow extension/flexion, pendulums - Subjective Pt reports he had right shoulder surgery May [address] Lopez at [facility] due to adhesive capsulitis. They put him in a sling and told him he could take it off after a few days and just wear it at night. He is sleeping in a chair and keeps it elevated- he always sleeps in a chair due to his BIPAP machine. He has a lot of pain at night. He goes back to see the MD today. The pain in the shoulder is in the anterior shoulder and it radiates down into biceps. The doctor told him to move the arm around- he still has bands from the last time he was here. Worst: 10/10 Agg: moving it around Best: 0/10 Eases: relaxing it and ice. Does take pain pills. Describes it as stabbing pains. There is one spot in the anterior shoulder that feels like he got shot by a gun. Does have N/T in his hand due to his carpal tunnel (Apr 19) so he still has some weakness. Right hand dominate. He has a history of a TBI so he has severe migraines- but no changes. He needs to get his left RTC done in 3 months. Work: on disability. His does help him with dressing but he is able to do his bathing, Does drive PMHx/Meds: see list in chart from ED - Objective Posture: no sling- guarding of the right UE- FH, RS. Gait: no arm swing on the right UE held tight to body. Observation: bruising throughout- incision bandaged- did not uncover due to seeing physician this afternoon. Palpation: tender throughout entire right shoulder- scapula, upper trap, bicipital groove, down the deltoid/bicep and triceps to the elbow. ROM: AROM: Flexion: 40 degrees, abd: 50 degrees, IR: to belly, ER: neutral all with significant pain, Elbow: Flexion: lacking 30 degrees- extn: lacking 40 degrees PROM: flexion: 110 degrees, Abd: 90 degrees, IR: to belly, ER: 20 degrees- guarded in all direction, Elbow: full ROM. Can make a fist and touch each finger for dexterity. Cervical: WNL. Strength: Shoulder: Flexion: 3.9 Extn: 5 Unreadable Add/Abd and IR/ER- Scap: poor, Elbow: 2+/5 with pain, [employer]: not tested secondary to recent carpal tunnel surgery. - Balance/Special Test Scores Quick DASH Score: 79.5450 - Goals Goal 1:: Patient will be I with HEP and progression Goal Time Frame: 4-6 Weeks Goal 2:: Patient will maintain proper posture t/o tx session to demo increased scap s/s Goal Time Frame: 4-6 Weeks Goal 3:: Patient will demo full AROM of the right shoulder Goal Time Frame: 4-6 Weeks Goal 4:: Patient will report 80% improvement Goal Time Frame: 4-6 Weeks - Rehabilitation Potential Physical Therapy Diagnosis: Patient presents with hypomobility- he has decreased ROM, UE and scap scapular strength/stabilization and muscular endurance leading to poor posture and increased pain with ADL's. Rehabilitation Potential: Good - Anticipated Interventions Patient/Client Instruction: Educate patient on: Benefits of Fitness Program Therapeutic Exercise to Include: Strength training, Endurance training, Coordination, Body mechanics, Postural training, Flexibilty training, Neuromotor development, Passive ROM, Active ROM, Dynamic Lumbar Stabilization, Scapular S trength/Stabilization For the Purpose of:: To improve muscle performance and motor function Manual Therapy Techniques to Include: Mobilization, Passive ROM, Soft tissue mobilization For the Purpose of:: To increase ROM TENS: Yes Cryotherapy (ice pack, ice massage): Yes Thermo therapy (hot pack): Yes Ultrasound (thermal/non thermal): Yes Thank you for the opportunity to evaluate your patient. For Medicare and Medicare HMO plans, please review the plan of care and approve it. It will need to be FAXED BACK to us at [phone] for Medicare purposes. For Medicare only, by signing this I certify the plan of care. Please let me know if there are questions or concerns regarding this plan of care. Physician Signature: Date:
--- NOTE | 2022-07-10 15:27 | HP.PTREVAL ---
TINO SPENCE, It has been my pleasure to treat BRADLEY GREENFIELD over the last 9 visits for Right Adhesive Capsulitis Surgery 05/29/22. Please see the progress note below for an update on the physical therapy plan of care! Subjective: Patient reports that he knows that he needs more PT but he is concerned about that fact that he is going to have a gap insurance coverage for two months at the end of this month. He reports that he saw his MD today and they changed his pain medication today from Percoset to Tramadol. He is taking them every 4 hours even throughout the night and is still a 6/10. He reports he is doing his home exercise program consistently but its very painful. Objective/Function: Posture: no sling- guarding of the right UE- FH, RS. Gait: dec arm swing on the right Palpation: tender throughout entire right shoulder- scapula, upper trap, bicipital groove, down the deltoid/bicep and triceps to the elbow. ROM: AROM: Flexion: 100 degrees, abd: 80 degrees, IR: to lateral pocket, ER: 30 degrees all with compensation and reports pain, Elbow: Flexion: WFL PROM: flexion: 150 degrees, Abd: 110 degrees, IR: to belly, ER: 50 degrees- guarded in all direction, Elbow: full ROM. . Cervical: WNL. Strength: Isometric: 4/5 with pain at neutral Plan Plan: 07/10/22: 3x a week for 4 weeks- will call to schedule after talks to insurance company- educated on importance of HEP and movement at home. 05/29/22 Right Shoulder Surgery for Adhesive Capsulitis - Focus on ROM (PROM, AAROM and AROM) and scapular strength/stabilization. Balance/Gait/Functional tests - Balance/Special Test Scores Quick DASH Score: 52.2725 Goals Goal 1:: Patient will be I with HEP and progression Goal Time Frame: 4-6 Weeks Goal Progress: Progressing Goal 2:: Patient will maintain proper posture t/o tx session to demo increased scap s/s Goal Time Frame: 4-6 Weeks Goal Progress: Progressing Goal 3:: Patient will demo full AROM of the right shoulder Goal Time Frame: 4-6 Weeks Goal Progress: Progressing Goal 4:: Patient will report 80% improvement Goal Time Frame: 4-6 Weeks Goal Progress: Progressing Anticipated Interventions Patient/Client Instruction: Educate patient on: Benefits of Fitness Program Therapeutic Exercise to Include: Strength training, Endurance training, Coordination, Body mechanics, Postural training, Flexibilty training, Neuromotor development, Passive ROM, Active ROM, Dynamic Lumbar Stabilization, Scapular Strength/Stabilization For the Purpose of:: To improve muscle performance and motor function Manual Therapy Techniques to Include: Mobilization, Passive ROM, Soft tissue mobilization For the Purpose of:: To increase ROM TENS: Yes Cryotherapy (ice pack, ice massage): Yes Thermo therapy (hot pack): Yes Ultrasound (thermal/non thermal): Yes Please do not hesitate to contact me at [phone] by phone or if you have questions or concerns regarding this new plan of care! Sincerely, NAVEEN ChiuT
--- NOTE | 2022-08-30 12:38 | HP.PTREVAL ---
TINO SPENCE, It has been my pleasure to treat BRADLEY GREENFIELD over the last 10 visits for Right Adhesive Capsulitis Surgery 05/29/22. Please see the progress note below for an update on the physical therapy plan of care! Subjective: Pt returns today after finally getting insurance approval. R shoulder is sore today Objective/Function: R shoulder pain is 7/10 and is consistently remaining there since having cortisone injection. Pt has been performing HEP over elapsed gap of coverage. R shoulder AROM: flex= 85, abd= 65, ER= 0. Pt has increased ROM x greater than 20 degrees, but still lacks functional AROM at this time. Plan Plan: Work on aggressive AROM/PROM at this time. Add strengthening ex's in a couple weeks to compliment ROM consisting of rot cuff and scapular stabilization ex's Balance/Gait/Functional tests - Balance/Special Test Scores Quick DASH Score: 52.2725 Goals Goal 1:: Patient will be I with HEP and progression Goal Time Frame: 4-6 Weeks Goal Progress: Progressing Goal 2:: Patient will maintain proper posture t/o tx session to demo increased scap s/s Goal Time Frame: 4-6 Weeks Goal Progress: Progressing Goal 3:: Patient will demo full AROM of the right shoulder Goal Time Frame: 4-6 Weeks Goal Progress: Progressing Goal 4:: Patient will report 80% improvement Goal Time Frame: 4-6 Weeks Goal Progress: Progressing Anticipated Interventions Patient/Client Instruction: Educate patient on: Benefits of Fitness Program Therapeutic Exercise to Include: Strength training, Endurance training, Coordination, Body mechanics, Postural training, Flexibilty training, Neuromotor development, Passive ROM, Active ROM, Dynamic Lumbar Stabilization, Scapular Strength/Stabilization For the Purpose of:: To improve muscle performance and motor function Manual Therapy Techniques to Include: Mobilization, Passive ROM, Soft tissue mobilization For the Purpose of:: To increase ROM TENS: Yes Cryotherapy (ice pack, ice massage): Yes Thermo therapy (hot pack): Yes Ultrasound (thermal/non thermal): Yes Please do not hesitate to contact me at [phone] by phone or if you have questions or concerns regarding this new plan of care! Sincerely, Brayan Rosas, PT, ATC
--- NOTE | 2022-09-30 13:02 | HP.PTREVAL ---
Re-Evaluation Intro: TINO SPENCE, It has been my pleasure to treat BRADLEY GREENFIELD over the last 18 visits for Right Adhesive Capsulitis Surgery 05/29/22. Please see the progress note below for an update on the physical therapy plan of care! Subjective Subjective: R shoulder is still sore and stiff Objective Objective/Function: R shoulder pain is 6/10 with pain pills R shoulder ROM: flex= 85, abd= 80, ER= 10, IR WNL R shoulder is grossly 3-/5 throughout Pt still lacks functional ROM and strength at this time Plan Plan Plan: Continue with aggressive AROM/PROM at this time. Start strengthening ex's at this time to compliment ROM consisting of rot cuff and scapular stabilization ex's Balance/Gait/Functional tests Balance/Special Test Scores Quick DASH Score: 40.9075 Goals Goals Goal 1:: Patient will be I with HEP and progression Goal Time Frame: 4-6 Weeks Goal Progress: Progressing Goal 2:: Patient will maintain proper posture t/o tx session to demo increased scap s/s Goal Time Frame: 4-6 Weeks Goal Progress: Progressing Goal 3:: Patient will demo full AROM of the right shoulder Goal Time Frame: 4-6 Weeks Goal Progress: Progressing Goal 4:: Patient will report 80% improvement Goal Time Frame: 4-6 Weeks Goal Progress: Progressing Anticipated Interventions Anticipated Interventions Patient/Client Instruction: Educate patient on: Benefits of Fitness Program Therapeutic Exercise to Include: Strength training, Endurance training, Coordination, Body mechanics, Postural training, Flexibilty training, Neuromotor development, Passive ROM, Active ROM, Dynamic Lumbar Stabilization and Scapular Strength/Stabilization For the Purpose of:: To improve muscle performance and motor function Manual Therapy Techniques to Include: Mobilization, Passive ROM and Soft tissue mobilization For the Purpose of:: To increase ROM TENS: Yes Cryotherapy (ice pack, ice massage): Yes Thermo therapy (hot pack): Yes Ultrasound (thermal/non thermal): Yes Re-Evaluation Ending Re-evaluation ending: Please do not hesitate to contact me at [phone] by phone or if you have questions or concerns regarding this new plan of care! Sincerely, Brayan Rosas, PT, ATC
--- NOTE | 2022-12-03 09:07 | HP.PT.NRP ---
Patient Information Patient Information: BRADLEY GREENFIELD was seen in my office for initial evaluation on 06/14/22. The following Plan of Care was established for this patient: POC Established Initial Frequency: 3x /Week Initial Duration: 4 Weeks Anticipated Interventions Patient/Client Instruction: Educate patient on: Benefits of Fitness Program Therapeutic Exercise to Include: Strength training, Endurance training, Coordination, Body mechanics, Postural training, Flexibilty training, Neuromotor development, Passive ROM, Active ROM, Dynamic Lumbar Stabilization and Scapular Strength/Stabilization For the Purpose of:: To improve muscle performance and motor function Manual Therapy Techniques to Include: Mobilization, Passive ROM and Soft tissue mobilization For the Purpose of:: To increase ROM TENS: Yes Cryotherapy (ice pack, ice massage): Yes Thermo therapy (hot pack): Yes Ultrasound (thermal/non thermal): Yes Last Seen Last Seen: This patient was last seen in our office . Pertinent comments regarding their Physical therapy will appear below: Patient has not attended PT in over 30 days appropriate to be d/c from PT and return to MD for further evaluation PRN. At this point I will be discontinuing this patient from physical therapy. I would be happy to see this patient again in the future if found appropriate by the physician. Thank you! Brinda Pepper, DPT Balance/Gait/Functional tests Balance/Special Test Scores Quick DASH Score: 40.9058
== END 2022-10-24 19:00 | disposition home or self-care (01) ==
LOC: PT 12:30
DX: M75.01 Adhesive capsulitis of right shoulder (principal)
CPT/HCPCS: 97110; 97140; 97162; 97164

== ENCOUNTER → 2023-04-17 | Outpatient (CLI) | payer MEDICARE, SELFPAY ==
[2023-04-17 11:20] LABS: Hematocrit 46.2 % (40-54); Hemoglobin 15.2 g/dL (13.0-16.5); Mean Corp Hgb Conc 32.9 g/dL (32-36); Mean Corpuscular Hgb 30.5 pg (27.0-32.0); Mean Corpuscular Volume 92.8 fL (80-94); Mean Platelet Vol. 10.6 fl (6.2-12.0); Platelet Count 189 K/mm3 (150-450); RBC Distribution Width CV 13.1 % (11.6-14.6); RBC Distribution Width SD 44.3 fl (35.1-43.9); Red Blood Count 4.98 M/mm3 (4.6-6.2); White Blood Count 7.5 K/mm3 (4.4-11.0)
[2023-04-17 11:38] LABS: Microalbumin,Random Urine < 5.0 mg/L (NO RANGE EST.)
[2023-04-17 11:58] LABS: ALB/GLOB Ratio 1.2 RATIO (0.9-2.4); AST(SGOT) 25 U/L (15-37); Alanine Aminotransfer ALT/SGPT 57 U/L (16-61); Albumin, Serum 3.8 g/dL (3.2-5.0); Alkaline Phosphatase 99 U/L (45-117); Anion Gap 3 (5-15); BUN 15 mg/dL (7-18); BUN/Creat Ratio 17.1 RATIO (10-20); Calcium,Total 9.1 mg/dL (8.5-10.1); Chloride 108 mmol/L (98-107); Cholesterol 117 mg/dL (200); Creatinine, Serum 0.88 mg/dL (0.70-1.30); EST Glomerular Filtration Rate 93 mL/min (>60); Est Glom Filt Rate - Afr Amer 113 mL/min (>60); Globulin 3.1 g/dL (2.2-4.2); Glucose 90 mg/dL (74-106); High Density Lipoprotein 53 mg/dL; Iron 119 ug/dL (65-175); Iron Binding Capacity,Total 287 ug/dL (250-450); PERCENT IRON SATURATION 41.5 % (15.0-55.0); Potassium 3.8 mmol/L (3.5-5.1); Protein, Total 6.9 g/dL (6.4-8.2); Sodium Level 137 mmol/L (136-145); Thyroid Stim Hormone (TSH) 4.04 uIU/mL (0.358-3.74); Triglycerides 121 mg/dL; Very Low Density Lipoprotein 24 mg/dL (5-40)
== END | disposition home or self-care (01) ==
DX: E11.9 Type 2 diabetes mellitus without complications (principal); E78.5 Hyperlipidemia, unspecified; G25.81 Restless legs syndrome
CPT/HCPCS: 36415; 80053; 80061; 82043; 83540; 83550; 84439; 84443; 85027

== ENCOUNTER 2023-07-15 13:48 | Outpatient (RCR) | payer MEDICARE, SELFPAY ==
--- NOTE | 2023-07-15 15:28 | HP.PTEVAL ---
Patient's Visit Information Visit Information Visit Information: BRADLEY GREENFIELD is a 62 year old M referred to Physical Therapy by SHARMAINE ANNE with a diagnosis of R shoulder adhesive capsulitis. Date of Evaluation: 07/15/23 Physical Therapist: Brayan Rosas, PT, ATC Visit Plan Frequency: 2-3x /Week Duration: 4-6 Weeks Plan: R shoulder PROM/mobs/AROM. R shoulder rotator cuff strengthening, scap stab ex's, UBE, and HEP Subjective Subjective: Pt reports he has had R shoulder problems going on for a couple of months. Pt reports he has been very limited with AROM in his R shoulder. Pt notes he wanted to come in here sooner, but has had a lot of family complications going on. Pt reports he has received some treatment from a chiropractor recently and had treatment for this from PT in the past. Pt reports sleep difficulty at this time secondary to R shoulder pain. Pt reports he is R hand dominant. Pt reports he has had xrays from his chiro and doctor in the past which revealed OA. Pt reports he had R shoulder surgery to repair his R rotator cuff 3 years ago. Pt reports he has many limitations with IADL's at this time like lifting a gallon of milk. Pt also notes he has difficulty with washing in the shower secondary to limited ROM in R shoulder. Pt reports his R shoulder pain is at 8/10 and pretty much just remains at that level. Pain R shoulder: Pain Intensity (Out of 10): 8 Pain Intensity Range: 8 Objective Objective: Neuro: B UE sensation is WNL to light touch. Pt did notice hyposensitivity on R C7. B bicipital reflex= 1/3 Palpation: Pt is sore throughout his R shoulder. No obvious deformity. No crepitus with AROM ROM: L shoulder flex= 85, abd= 80, ER= 0, IR= severely limited; R shoulder flex= 75, abd= 50, ER= 10, IR= severely limited MMT: L shoulder flex= 5, abd= 11, ER= 4, IR= 4 #F; R shoulder flex= 4, abd= 11, ER= 3, IR= 3 #F Balance/Special Test Scores Quick DASH Score: 63.6350 Goals Goal 1:: Decrease R shoulder pain x 50% to aid with sleep Goal Time Frame: 4-6 Weeks Goal 2:: Increase R shoulder strength x 5-10 #F to aid with IADL's Goal Time Frame: 4-6 Weeks Goal 3:: Increase R shoulder flex and abd ROM x 30 degrees to aid with overhead lifting activity Goal Time Frame: 4-6 Weeks Goal 4:: I with HEP Goal Time Frame: 4-6 Weeks Rehabilitation Potential Physical Therapy Diagnosis: Pt has R shoulder pain, weakness, and limited ROM secondary to R shoulder adhesive capsulitis Rehabilitation Potential: Good Anticipated Interventions Patient/Client Instruction: Educate patient on: Condition and Plan of Care For the Purpose of:: To improve self management Therapeutic Exercise to Include: Strength training, Endurance training, Flexibilty training, Passive ROM, Active ROM and Scapular Strength/Stabilization For the Purpose of:: To decrease pain, To increase ROM and To improve muscle performance and motor function Cryotherapy (ice pack, ice massage): Yes For the Purpose of:: To decrease pain Text: Thank you for the opportunity to evaluate your patient. For Medicare and Medicare HMO plans, please review the plan of care and approve it. It will need to be FAXED BACK to us at [phone] for Medicare purposes. For Medicare only, by signing this I certify the plan of care. Please let me know if there are questions or concerns regarding this plan of care. Physician Signature: Date:
--- NOTE | 2023-10-22 08:02 | HP.PT.NRP ---
Patient Information Patient Information: BRADLEY GREENFIELD was seen in my office for initial evaluation on 07/15/23. The following Plan of Care was established for this patient: POC Established Initial Frequency: 2-3x /Week Initial Duration: 4-6 Weeks Anticipated Interventions Patient/Client Instruction: Educate patient on: Condition and Plan of Care For the Purpose of:: To improve self management Therapeutic Exercise to Include: Strength training, Endurance training, Flexibilty training, Passive ROM, Active ROM and Scapular Strength/Stabilization For the Purpose of:: To decrease pain, To increase ROM and To improve muscle performance and motor function Cryotherapy (ice pack, ice massage): Yes For the Purpose of:: To decrease pain Last Seen Last Seen: This patient was last seen in our office . Pertinent comments regarding their Physical therapy will appear below: Pt was evaluated for R shoulder pain on the date of 07/15/23. Pt has not returned since this date and is discontinued at this time At this point I will be discontinuing this patient from physical therapy. I would be happy to see this patient again in the future if found appropriate by the physician. Thank you! Brayan Roass, PT, ATC Balance/Gait/Functional tests Balance/Special Test Scores Quick DASH Score: 63.6350
== END 2023-07-15 19:00 | disposition home or self-care (01) ==
LOC: PT 13:48
DX: M75.01 Adhesive capsulitis of right shoulder (principal)
CPT/HCPCS: 97110; 97161

== ENCOUNTER → 2023-08-14 | Outpatient (CLI) | payer MEDICARE, SELFPAY ==
--- NOTE | 2023-08-14 14:57 | ART_ITS ---
Reason For Study: PVD Procedure A bilateral lower extremity continuous wave Doppler with analog waveform analysis,segmental pressures,and ankle brachial indexes without exercise. Left Segmental Pressures Left brachial= 131mmHg. Left posterior tibial artery = 156mmHg. Left dorsalis pedis artery = 153mmHg. Left digit = 111 mmHg. The left dorsalis pedis waveforms are triphasic. The left posterior tibial artery waveforms are triphasic. Right Segmental Pressures Right brachial= 126mmHg. Right posterior tibial artery = 154mmHg. Right dorsalis pedis artery = 163mmHg. Right digit = 108 mmHg. The right dorsalis pedis waveforms are triphasic. The right posterior tibial artery waveforms are triphasic. Indices The right ankle brachial index by the dorsalis pedis is 1.24. The right ankle brachial index by the posterior tibial artery is 1.18. The right digital-brachial index is 0.82. The left ankle brachial index by the dorsalis pedis is 1.17. The left ankle brachial index by the posterior tibial artery is 1.19. The left digital-brachial index is 0.85. VL/Lower Ext Art Exam w/o Exercis Interpretation Summary Right VICTORINA 1.24, normal. TBI and Doppler/PVR waveforms of the right leg normal a t rest. Left VICTORINA 1.19, normal. TBI and Doppler/PVR waveforms of the left leg normal at rest. Ordering Physician: Silvio Barrios Referring Physician: [facility] Performed By: Kristine Covarrubias RVT
== END | disposition home or self-care (01) ==
LOC: CVS 14:54
PROVIDERS: Referring Provider Podiatrist; Visit Provider Podiatrist
DX: I73.89 Other specified peripheral vascular diseases (principal)
CPT/HCPCS: 93923

== ENCOUNTER 2023-11-13 13:00 | Outpatient (RCR) | payer MEDICARE, SELFPAY ==
--- NOTE | 2023-10-06 13:31 | HP.PTEVAL ---
Patient's Visit Information Visit Information Visit Information: BRADLEY GREENFIELD is a 62 year old M referred to Physical Therapy by TINO SPENCE with a diagnosis of s/p VAHE , lysis of adhesions. Date of Evaluation: 10/06/23 Physical Therapist: Brinda Pepper DPT Visit Plan Frequency: 3-5x Duration: 6 Weeks Plan: Focus on ROM of the right shoulder- PROM, AAROM, AROM- then strength/stabilization Subjective Subjective: Patient is s/p right shoulder manipulation this AM at 7:30- he has a lot of pain in the shoulder already- he said they put a pain block in but he doesn't feel like its helped. His brought him- she is in the car waiting on him. He reports the pain level is a 10/10 right now. He is just here for quick measurements. The pain is all throughout the whole shoulder. Pt is right hand dominate. Objective Objective: Posture: guarded- sling intact to right UE Observation- bandage on right anterior shoulder- groggy from surgery this morning Palpation: tender throughout entire shoulder ROM: PROM only of shoulder: Flexion: 105 degrees, Abd: 95 degrees, IR at 45 degrees: 65 degrees ER at 45 degrees: 55 degrees, Elbow: full Wrist/Hand: WNL Strength: Scap: poor UE: not tested due to block Balance/Special Test Scores Quick DASH Score: 100.0000 Goals Goal 1:: Patient will be I with HEP and progression Goal Time Frame: 4-6 Weeks Goal 2:: Patient will demo full AROM of the right shoulder Goal Time Frame: 4-6 Weeks Goal 3:: Patient will maintain proper posture t/o tx session to demo increased scap s/s Goal Time Frame: 4-6 Weeks Goal 4:: Patient will report 80% improvement Goal Time Frame: 4-6 Weeks Rehabilitation Potential Physical Therapy Diagnosis: Patient presents s/p VAHE- decreased ROM, strength, muscular endurance leading to poor posture and increased pain with ADL's. Rehabilitation Potential: Fair Anticipated Interventions Patient/Client Instruction: Educate patient on: Benefits of Fitness Program Therapeutic Exercise to Include: Strength training, Endurance training, Coordination, Agility training, Body mechanics, Postural training, Flexibilty training, Neuromotor development, Passive ROM, Active ROM, Dynamic Lumbar Stabilization and Scapular Strength/Stabilization For the Purpose of:: To increase ROM and To improve muscle performance and motor function Manual Therapy Techniques to Include: Mobilization, Passive ROM and Soft tissue mobilization For the Purpose of:: To increase ROM and To improve muscle performance and motor function TENS: Yes Cryotherapy (ice pack, ice massage): Yes Thermo therapy (hot pack): Yes Text: Thank you for the opportunity to evaluate your patient. For Medicare and Medicare HMO plans, please review the plan of care and approve it. It will need to be FAXED BACK to us at [phone] for Medicare purposes. For Medicare only, by signing this I certify the plan of care. Please let me know if there are questions or concerns regarding this plan of care. Physician Signature: Date:
--- NOTE | 2023-12-30 10:59 | HP.PTDCSUM ---
Discharge Summary D/C summary: It has been my pleasure to treat BRADLEY GREENFIELD referred by TINO SPENCE, with the diagnosis of s/p VAHE, lysis of adhesions for a total of 15 visit(s). Discharge Date: 11/13/23 Please see the following information for a summary of their discharge status. Subjective Subjective: Getting better ROM. Activities; Able to write name now, able to lift trash bag with R. Putting shirt on and reaching behind, reaching into cupboard is good. Strength feels OK. HEP: wall stretches, table stretches, . Pain is no issue. Sleep is good. On disabiity. Pain R shld: Pain Intensity (Out of 10): 4 Overall Improvement % Improvement: 80 Objective Objective/Function: 130 flexiona dn abd AROM today with some scap compensation. Ext rotation 50, IR to L5. weakness in er and flexion on R vs L but funcitonal. Goals Goal 1:: Patient will be I with HEP and progression Goal Progress: Progressing Goal 2:: Patient will demo full AROM of the right shoulder Goal Progress: 130 Goal 3:: Patient will maintain proper posture t/o tx session to demo increased scap s/s Goal Progress: Goal Met Goal 4:: Patient will report 80% improvement Goal Progress: Goal Met Plan Plan: d/c D/C Information d/c sentence: If there are questions or concerns regarding this patient's physical therapy, please feel free to call me at [phone]. Thank you for the referral of this patient. Sincerely, Jay Truong, DPT, OCS, CSCS Balance/Gait/Functional tests Balance/Special Test Scores Quick DASH Score: 25.0000 Improvement % Improvement: 80
== END 2023-11-13 19:00 | disposition home or self-care (01) ==
LOC: PT 13:00
DX: M75.01 Adhesive capsulitis of right shoulder (principal)
CPT/HCPCS: 97110; 97140; 97161; 97530

== ENCOUNTER → 2023-12-23 | Outpatient (CLI) | payer MEDICARE, SELFPAY ==
[2023-12-23 12:55] LABS: Absolute Neutrophil Count 2.9 X10^3/uL (2.0-7.7); Basophil# 0.03 X10^3/uL; Basophil% 0.6 % (0-1); Hemoglobin 12.1 g/dL (13.0-16.5); Lymphocyte % 29.6 % (19-41); Mean Corp Hgb Conc 31.8 g/dL (32-36); Mean Corpuscular Hgb 29.2 pg (27.0-32.0); Mean Corpuscular Volume 91.8 fL (80-94); Mean Platelet Vol. 10.5 fl (6.2-12.0); Monocyte% 7.9 % (0-10); NRBC Flagged by Analyzer 0 % (0-5); Neutrophil # 2.92 X10^3/uL (2.7-7.7); Neutrophil % 57.7 % (47-70); Platelet Count 160 K/mm3 (150-450); RBC Distribution Width CV 13.3 % (11.6-14.6); Red Blood Count 4.14 M/mm3 (4.6-6.2); White Blood Count 5.1 K/mm3 (4.4-11.0)
[2023-12-23 13:04] LABS: Color, Urine Yellow (Yellow); Glucose, Dipstick Normal (Normal); Ketone-Dipstick Negative (Negative); Leukocyte Esterase-Dipstick 25 /ul (Negative); Nitrite-Dipstick Negative (Negative); Occult Blood-Urine 10 /ul (Negative); Protein-Dipstick 15 mg/dl (Negative); Specific Gravity, Urine 1.015 (1.002-1.030); Urine Bilirubin Dipstick Negative (Negative); Urine Clarity Clear (Clear); Urine Urobilinogen 1 mg/dl (Normal)
[2023-12-23 13:46] LABS: ALB/GLOB Ratio 0.9 RATIO (0.9-2.4); AST(SGOT) 33 U/L (15-37); Alanine Aminotransfer ALT/SGPT 41 U/L (16-61); Albumin, Serum 3.1 g/dL (3.2-5.0); Alkaline Phosphatase 100 U/L (45-117); Anion Gap 8 (5-15); BUN 18 mg/dL (7-18); BUN/Creat Ratio 18.6 RATIO (10-20); Calcium,Total 8.8 mg/dL (8.5-10.1); Chloride 109 mmol/L (98-107); Creatinine, Serum 0.97 mg/dL (0.70-1.30); EST Glomerular Filtration Rate 83 mL/min (>60); Est Glom Filt Rate - Afr Amer 101 mL/min (>60); Globulin 3.3 g/dL (2.2-4.2); Glucose 103 mg/dL (74-106); Protein, Total 6.4 g/dL (6.4-8.2); Sodium Level 140 mmol/L (136-145)
[2023-12-23 13:47] LABS: Microalbumin,Random Urine 68.5 mg/L (NO RANGE EST.)
== END | disposition home or self-care (01) ==
LOC: VSLAB 11:28
PROVIDERS: PCP Nurse Practitioner Family; Visit Provider Nurse Practitioner Family
DX: I10 Essential (primary) hypertension (principal); E11.9 Type 2 diabetes mellitus without complications; R10.9 Unspecified abdominal pain
CPT/HCPCS: 36415; 80053; 81002; 82043; 84443; 85025

== ENCOUNTER → 2023-12-26 | Outpatient (CLI) | payer MEDICARE, SELFPAY | END | disposition home or self-care (01) | LOC: LABSPEC 15:39 | PROVIDERS: PCP Nurse Practitioner Family; Visit Provider Nurse Practitioner Family | DX: D64.9 Anemia, unspecified (principal) | CPT/HCPCS: 82274 ==

== ENCOUNTER 2024-02-19 12:30 | Outpatient (RCR) | payer MEDICARE, SELFPAY ==
--- NOTE | 2024-01-27 15:01 | HP.PTEVAL ---
Patient's Visit Information Visit Information Visit Information: BRADLEY GREENFIELD is a 63 year old M referred to Physical Therapy by FE Pacheco with a diagnosis of L adhesive capsulitis with capsular release 01/26/24. Date of Evaluation: 01/27/24 Physical Therapist: Myron Rivera DPT Visit Plan Frequency: 4-5x /Week Duration: 3 Weeks Plan: 1) PROM progressing to full 2) light shoulder shurg, scap retraction. Periscapular activitation 3) Progress to AAROM then AROM. 4) once ROM has been restored add in strengthening as tolerated. Subjective Subjective: Pt. is here today for his initial evaluation with diagnosis of adhesive capsulitis of L shoulder. Pt. had a L arthroscopic capsular release on 01/26/24. Pt. had is R shoulder similar surgery earlier this year. Pt. reports being very sore today arrives with sling on. Pt. is taking Percocet for pain control. He has also been icing for pain control. He has not had a chance to work on any exercises. Pt. reports difficulty sleeping due to his nerve block wearing off. He is retired. Pt. is hopeful to increase his ROM and eventual strength in order to get back to all recreational and household activities without limitations. Pain L shoulder: Pain Intensity (Out of 10): 7 Objective Objective: POSTURE: Pt. keep L UE in guarded posture with slightly elevated L shoulder. Pt. was able to relax with VC/TCing. PALPATION: Pt. has no signs of infection, anterior incision looks good. Some marked bruising at his anterior shoulder. NEURO: Pt. has normal sensation throughout BUEs. ROM: Pt. has full L elbow ROM without increase in symptoms. L shoulder: PROM: flexion 130deg, abd 50deg, ER at side 0deg. Pt. was very guarded at first but has increased tolerance with increased PROM. I urged him to try and relax and did better as PROM progressed. MMT: DNT this date due to recent surgery. Balance/Special Test Scores Quick DASH Score: 63.6350 Goals Goal 1:: LTG: pt. to be I with HEP. Goal Time Frame: 4-6 Weeks Goal 2:: STG: Pt. to have increased L shoulder PROM to full with 0-3/10 pain in L shoulder. Goal Time Frame: 2-4 Weeks Goal 3:: STG: Pt. to sleep throughout the night without increase in symptoms. Goal Time Frame: 2-4 Weeks Goal 4:: LTG: Pt. to have full L shoulder AROM without increase in symptoms. Goal Time Frame: 4-6 Weeks Goal 5:: LTG: pt. to have increased L shoulder strength to 4+/5 throughout without increase in L shoulder pain. Goal Time Frame: 6-8 Weeks Goal 6:: LTG: Pt. to be able to complete all household and recreational activities without increase in symptoms. Goal Time Frame: 6-8 Weeks Rehabilitation Potential Physical Therapy Diagnosis: Pt. has signs and symptoms consistent with L adhesive capsulitis with capsular release 01/26/24. Pt. has marked hypomobility, increased pain, decreased tolerated to ADLs. Pt. would benefit from PT to initially restore his ROM then progress to functional use/strengthening. Rehabilitation Potential: Excellent Anticipated Interventions Patient/Client Instruction: Educate patient on: Condition, Plan of Care, Risk Factors and Benefits of Fitness Program For the Purpose of:: To reduce risk of recurrence, To improve safety, To improve health and function, To foster healthy habits, To improve decision making, To facilitate caregiver knowledge, To improve self management, To prevent re-injury and To improve ability to perform tasks related to life management Therapeutic Exercise to Include: Strength training, Postural training, Flexibilty training, Passive ROM, Active ROM and Paige Exercises For the Purpose of:: To decrease pain, To increase ROM, To improve nutrient delivery to tissue, To increase oxygenation perfusion, To improve muscle performance and motor function, To improve ability to perform ADL's, To increase tolerance to activity/condition/position, To improve performance and independence with ADL's, To improve health of tissue, To decrease soft tissue restriction and To increase flexibility/ROM Manual Therapy Techniques to Include: Mobilization and Passive ROM For the Purpose of:: To decrease pain, To decrease swelling/inflammation, To increase ROM, To improve nutrient delivery to tissue, To increase oxygenation perfusion and To improve muscle performance and motor function Cryotherapy (ice pack, ice massage): Yes Thermo therapy (hot pack): Yes For the Purpose of:: To decrease pain, To decrease swelling/inflammation and To increase ROM Text: Thank you for the opportunity to evaluate your patient. For Medicare and Medicare HMO plans, please review the plan of care and approve it. It will need to be FAXED BACK to us at [phone] for Medicare purposes. For Medicare only, by signing this I certify the plan of care. Please let me know if there are questions or concerns regarding this plan of care. Physician Signature: Date:
== END 2024-02-19 19:00 | disposition home or self-care (01) ==
LOC: PT 12:30
PROVIDERS: PCP Nurse Practitioner Family; Referring Provider Physician Assistant Surgical; Visit Provider Physician Assistant Surgical
DX: M75.02 Adhesive capsulitis of left shoulder (principal)
CPT/HCPCS: 97110; 97140; 97161

== ENCOUNTER → 2024-03-23 | Outpatient (CLI) | payer MEDICARE, SELFPAY ==
[2024-03-23 17:02] LABS: Absolute Lymphocyte Count 1.66 X10^3/uL (0.83-4.51); Absolute Neutrophil Count 3.3 X10^3/uL (2.0-7.7); Basophil# 0.05 X10^3/uL; Basophil% 0.9 % (0-1); Eosinophil# 0.27 X10^3/uL; Eosinophils% 4.8 % (0-5); Hematocrit 40.1 % (40-54); Hemoglobin 12.8 g/dL (13.0-16.5); Lymphocyte # 1.66 X10^3/ul (0.83-4.51); Lymphocyte % 29.7 % (19-41); Mean Corp Hgb Conc 31.9 g/dL (32-36); Mean Corpuscular Hgb 29.4 pg (27.0-32.0); Mean Corpuscular Volume 92.2 fL (80-94); Mean Platelet Vol. 11.8 fl (6.2-12.0); Monocyte# 0.34 X10^3/uL; Monocyte% 6.1 % (0-10); NRBC Flagged by Analyzer 0 % (0-5); Neutrophil # 3.25 X10^3/uL (2.7-7.7); Neutrophil % 58.1 % (47-70); Platelet Count 179 K/mm3 (150-450); RBC Distribution Width CV 13.8 % (11.6-14.6); RBC Distribution Width SD 46.3 fl (35.1-43.9); Red Blood Count 4.35 M/mm3 (4.6-6.2); White Blood Count 5.6 K/mm3 (4.4-11.0)
[2024-03-23 17:27] LABS: Iron 74 ug/dL (65-175); Iron Binding Capacity,Total 304 ug/dL (250-450); PERCENT IRON SATURATION 24.3 % (15.0-55.0); Vitamin B12 565 pg/mL (211-911); Vitamin D,25 Hydroxy 44.7 ng/mL
== END | disposition home or self-care (01) ==
LOC: VSLAB 13:50
PROVIDERS: PCP Nurse Practitioner Family; Visit Provider Nurse Practitioner Family
DX: D64.9 Anemia, unspecified (principal); E55.9 Vitamin D deficiency, unspecified
CPT/HCPCS: 36415; 82306; 82607; 83540; 83550; 85025

== ENCOUNTER 2024-06-03 14:08 | Emergency (ER) | payer MEDICARE, SELFPAY ==
[2024-06-03 14:09] VITALS: BP 102/67; PULSE 72; RESP 15; TEMP 36.7; O2SAT 98; BMI 31.3
--- NOTE | 2024-06-03 14:25 | EDS_ITS ---
HPI History of Present Illness Chief Complaint: Cold Sx Informant: patient Onset/Context/Timing Onset: Weeks (1) Context: Gradual Onset Timing: Continuous Quality: Cannot catch my breath Location: Chest Worsened by: Sleeping Relieved by: BiPAP Narrative Narrative: Patient presents with cough, shortness of breath, sore throat, and rhinorrhea that has been getting worse over the past week. Patient states he feels like he cannot catch his breath. Patient states he has noted some weakness in his legs. Patient states he has been having trouble sleeping over the past week. Patient states his breathing gets better when he wears his BiPAP. Patient states his tested positive for COVID-19 today. Patient denies any fevers or chills. Patient does admit to a mild headache. [facility] Medical History Wears partial dentures Gastric reflux Cardiology follow-up encounter Wears glasses Diabetes Hypothyroidism Non-smoker BiPAP (biphasic positive airway pressure) dependence Hx of cardiovascular stress test Edema Coronary artery disease Hypertension Migraine headache Injury of head and neck Excessive body weight loss Intertrigo Gynecomastia, male Panniculitis, unspecified Abdominal panniculus Vitamin deficiency GERD (gastroesophageal reflux disease) History of pneumonia Neuropathy High triglycerides High cholesterol Hearing problem Frequent headaches Anxiety and depression Back problem Essential hypertension Obstructive sleep apnea Bradycardia Subdural hematoma (08/03/18) Traumatic brain injury (08/03/18) Pressure ulcer of coccygeal region, stage 2 Dizziness Dyspnea on exertion Constipation Hypothyroidism (acquired) Hiatal hernia Preop cardiovascular exam Atherosclerotic heart disease of [place] coronary artery without angina pectoris Chronic diarrhea Obesity Diabetes type 2, uncontrolled Hyperlipidemia Home Medications ?Medication ?Instructions ?Recorded ?Last Taken ?Type omeprazole 20 mg capsule,delayed 20 mg PO DAILY gerd # 30 caps 08/20/18 01/24/21 Rx release cholecalciferol (vitamin D3) 50 2,000 unit PO DAILY gonzales pplement 12/31/18 Unknown History mcg (2,000 unit) capsule (Vitamin D3) vitamin B complex 1 cap PO BID supplement 12/15 10/02 Unknown History zinc 50 mg tablet 50 mg PO DAILY supplement Unknown History calcium 500 mg (as 1 ea PO DAILY supplement Unknown History carbonate)-vitamin D3 15 mcg (600 unit) tablet citalopram 20 mg tablet (Celexa) 20 mg PO DAILY mood 0 10/18/20 Unknown History levothyroxine 100 mcg tablet 100 mcg PO DAILY@0600 thy roid 10/18/20 01/24/21 History docusate sodium 100 mg capsule 100 mg PO BID PRN Const ipation 02/16/21 Unknown History (DOK) [id number] 1 tab PO DAILY 03/29/21 U nknown History tablet (Cerovite Senior) topiramate 50 mg tablet (Topamax) 100 mg PO BID seizur es 04/06/21 Unknown History metformin 500 mg tablet 500 mg PO DAILY 09/26/21 Unk nown History rimegepant 75 mg disintegrating 75 mg PO ONCE PRN 02/14 05/08 Unknown History tablet (Nurtec ODT) atorvastatin 40 mg tablet 40 mg PO QHS cholesterol #90 tabs 03/27/22 Unknown Rx dulaglutide 0.75 mg/0.5 mL 0.75 mg subcut QWEEK Unknown History subcutaneous pen injector (Trulicity) gabapentin 300 mg capsule 300 mg PO QDAY 07/04/23 Unkn own History melatonin 3 mg tablet 10 mg PO QHS PRN Sleep 07/03 Unknown History Allergy/AdvReac Type Severity Reaction Status Date / Time celecoxib (From Celebrex) Allergy Intermediate Rash Verified 06/03/24 14:11 Family History Mother CAD (coronary artery disease) Diabetes History of blood clots Heart disease Hypertension High cholesterol Kidney disease Respiratory disease Seizures CVA (cerebral vascular accident) Father CAD (coronary artery disease) Hypertension Cancer Diabetes Heart disease High cholesterol CVA (cerebral vascular accident) Lung cancer Sister CAD (coronary artery disease) Hypertension Alcoholism Anxiety Suicide attempt Grandfather Diabetes Grandmother Diabetes Surgical History History of cholecystectomy History of bilateral mastectomy History of excision of lesion History of abdominal surgery (07/25/20) Hx of colonoscopy History of gastric bypass History of hernia repair Stented coronary artery (~02/2009) Hx of cholecystectomy Status post bariatric surgery removal of lypoma H/O hemorrhoidectomy removal of enlarged lymph node Social History Smoking Status: Never smoker second hand exposure: No alcohol intake: never substance use type: does not use caffeine: No additional social history: DOES TAKE ASPIRIN DOES TAKE IBUPROFEN ROS ROS ED Constitutional Constitutional ED: Denies chills or fever(s) Eyes Eyes: Denies blurry vision or change in vision ENT ENT ED: Reports rhinorrhea and sore throat Cardiovascular Cardiovascular: Denies chest pain or palpitations Respiratory/Chest Respiratory/Chest: Reports cough and dyspnea Gastrointestinal Gastrointestinal: Denies nausea or vomiting Genitourinary Genitourinary ED: Denies dysuria or hematuria Musculoskeletal Musculoskeletal: Denies back pain or neck pain Integumentary Denies abscess or rash Neurologic Neurologic: Reports headache(s); Denies weakness Allergic/Immunologic Allergic/Immunologic ED: Denies mouth swelling or urticaria EXAM Physical Exam Const Vital Signs: 06/03/24 14:09 06/03/24 14:24 06/03/24 15:05 Temperature 98.1 F Temperature Source Temporal Pulse Rate 72 74 Respiratory Rate 15 16 Respiratory Effort Normal Non-Labored Respiratory Pattern Normal Normal Blood Pressure 102/67 Blood Pressure Mean 78 Pulse Ox 98 Oxygen Delivery Method Room Air 06/03/24 16:48 Temperature 98.3 F Temperature Source Pulse Rate 88 Respiratory Rate 16 Respiratory Effort Respiratory Pattern Blood Pressure 122/78 H Blood Pressure Mean 92 Pulse Ox 97 Oxygen Delivery Method Positive well nourished and well developed General Appearance ED: well developed and NAD HEENT Reports moist mucous membranes Neck supple and no JVD Resp normal respiratory effort and clear to auscultation bilaterally Cardio regular rate and regular rhythm GI non-tender and non-distended Palpation: soft Extremity normal to inspection General Extremety ED: Negative for edema or tenderness General Extremity: Negative for edema Neuro oriented x3, CN's II-XII intact bilaterally and no sensory deficits noted Sensorium / Orientation: alert Motor Exam: strength 5/5 throughout Psych mental status grossly normal MDM MDM MDM Narrative Medical decision making narrative: Differential diagnosis includes COVID-19, viral upper respiratory infection, pneumonia, and bronchitis. Chest x-ray will be obtained to assess for pneumonia and pneumothorax. COVID-19, influenza, and RSV PCR will be obtained to assess for viral upper respiratory infection. Lab Data Attestation: I reviewed the patient's lab results. Lab results narrative: COVID-19 PCR was reviewed and was negative. Influenza PCR was reviewed and was negative for influenza A and influenza B. RSV PCR was reviewed and was negative. Radiography Chest X-Ray - ED: 2 View, Read by ED Physician, Read by Radiologist and No Acute Disease Diagnostic Testing: Clinical Impression(s) from Imaging Studies Chest X-Ray 06/03/24 15:22 IMPRESSION: No acute abnormality is seen. Reading Location: [facility]- PA and lateral chest x-ray was obtained. There are 2 views. On my independent interpretation, lung kirk are clear. There is normal cardiac silhouette. B tamiko thorax is normal. There is no acute process noted. Radiologist also interpreted the x-ray and agrees. Treatment and Re-Evaluation :: Patient was given a DuoNeb aerosol here. Patient was feeling better on reevaluation. Patient was advised of his findings. Patient was instructed to drink plenty of fluids. Patient was instructed take Tylenol or ibuprofen as needed for any aches or fevers. Patient was instructed to follow-up with his primary care physician in 5 to 7 days. Patient understood and was agreeable with the plan. All questions were answered. Discharge Plan Triage Chief Complaint: Cold Sx ED Provider: Jay Marshall Dx/Rx/DC Orders Clinical Impression: Viral upper respiratory tract infection, Diabetes type 2, controlled Instructions: ED URI, Viral, No Abx (Adult) Prescriptions: No Action cholecalciferol (vitamin D3) [Vitamin D3] 2,000 unit capsule 2,000 unit PO DAILY vitamin B complex Capsule 1 cap PO BID topiramate [Topamax] 50 mg tablet 100 mg PO BID zinc 50 mg tablet 50 mg PO DAILY melatonin 3 mg tablet 10 mg PO QHS PRN (Reason: Sleep) Cerovite Senior Tablet 1 tab PO DAILY metformin 500 mg tablet 500 mg PO DAILY atorvastatin 40 mg tablet 40 mg PO QHS Qty: 90 3RF Nurtec ODT 75 mg tablet,disintegrating 75 mg PO ONCE PRN Rx Instructions: as a single dose Trulicity 0.75 mg/0.5 mL pen injector 0.75 mg subcut QWEEK gabapentin 300 mg capsule 300 mg PO QDAY omeprazole 20 MG capsule 20 mg PO DAILY Qty: 30 3RF calcium carbonate-vitamin D3 1 EACH tablet 1 ea PO DAILY levothyroxine 100 MCG tablet 100 mcg PO DAILY@0600 citalopram [Celexa] 20 MG tablet 20 mg PO DAILY docusate sodium [DOK] 100 mg capsule 100 mg PO BID PRN (Reason: Constipation) Primary Care Provider: Mandi Sandoval Referrals: Mandi Sandoval, [employer] [Primary Care Provider] - 5-7 Days Print Language: Kazakh Disposition Disposition: Home, Self Care Discharge Date/Time: 06/03/24 16:48
[2024-06-03] MEDS: Ipratropium/Albuterol Sulfate 3 ML AMPUL.NEB INHALATION (15:04)
[2024-06-03 15:05] VITALS: PULSE 74; RESP 16
[2024-06-03] MEDS: 0.9% Normal Saline (1000mL) 1,000 ML 1000 ML IV (15:13)
--- NOTE | 2024-06-03 15:22 | RAD_ITS ---
PROCEDURE: CHEST PA AND LATERAL 06/03/2024 REASON FOR EXAM: COUGH TECHNIQUE: PA and lateral views were obtained. COMPARISON: Comparison is made with prior study dated April 06, 2022. FINDINGS: The heart is not enlarged. The lungs are clear. No acute abnormality is seen. RAD/Chest PA and Lateral IMPRESSION: No acute abnormality is seen. Reading Location: [place] [id number]
[2024-06-03 16:48] VITALS: BP 122/78; PULSE 88; RESP 16; TEMP 36.8; O2SAT 97
== END 2024-06-03 16:48 | disposition home or self-care (01) ==
PROVIDERS: Emergency Provider Emergency Medicine; PCP Nurse Practitioner Family; Visit Provider Emergency Medicine
DX: J06.9 Acute upper respiratory infection, unspecified (principal); E11.9 Type 2 diabetes mellitus without complications; I25.10 Atherosclerotic heart disease of native coronary artery without angina pectoris; E78.00 Pure hypercholesterolemia, unspecified; I10 Essential (primary) hypertension; G47.33 Obstructive sleep apnea (adult) (pediatric); Z99.81 Dependence on supplemental oxygen; E78.5 Hyperlipidemia, unspecified; K21.9 Gastro-esophageal reflux disease without esophagitis; Z79.899 Other long term (current) drug therapy; E03.9 Hypothyroidism, unspecified; Z79.890 Hormone replacement therapy; F41.8 Other specified anxiety disorders; Z79.84 Long term (current) use of oral hypoglycemic drugs; Z79.85 Long-term (current) use of injectable non-insulin antidiabetic drugs; Z90.49 Acquired absence of other specified parts of digestive tract; Z90.13 Acquired absence of bilateral breasts and nipples; Z95.5 Presence of coronary angioplasty implant and graft
CPT/HCPCS: 71046; 87631; 94640; 96360; 99283; A4216

== ENCOUNTER → 2024-06-24 | Outpatient (CLI) | payer MEDICARE, SELFPAY ==
[2024-06-24 16:31] LABS: Absolute Lymphocyte Count 1.43 X10^3/uL (0.83-4.51); Absolute Neutrophil Count 2.6 X10^3/uL (2.0-7.7); Basophil# 0.03 X10^3/uL; Basophil% 0.7 % (0-1); Eosinophils% 2.3 % (0-5); Hematocrit 42.9 % (40-54); Lymphocyte # 1.43 X10^3/ul (0.83-4.51); Lymphocyte % 32.9 % (19-41); Mean Corp Hgb Conc 32.6 g/dL (32-36); Mean Corpuscular Hgb 29.5 pg (27.0-32.0); Mean Corpuscular Volume 90.5 fL (80-94); Mean Platelet Vol. 10.4 fl (6.2-12.0); Monocyte# 0.22 X10^3/uL; Monocyte% 5.1 % (0-10); NRBC Flagged by Analyzer 0 % (0-5); Neutrophil # 2.55 X10^3/uL (2.7-7.7); Neutrophil % 58.8 % (47-70); Platelet Count 163 K/mm3 (150-450); RBC Distribution Width CV 14.3 % (11.6-14.6); RBC Distribution Width SD 47.8 fl (35.1-43.9); Red Blood Count 4.74 M/mm3 (4.6-6.2); White Blood Count 4.3 K/mm3 (4.4-11.0)
[2024-06-24 16:56] LABS: ALB/GLOB Ratio 1.8 RATIO (0.9-2.4); AST(SGOT) 26 U/L (<=37); Alanine Aminotransfer ALT/SGPT 27 U/L (<=46); Alkaline Phosphatase 117 U/L (40-129); Anion Gap 10 (5-15); BUN 13 mg/dL (4-19); BUN/Creat Ratio 13.8 RATIO (10-20); Calcium,Total 9.2 mg/dL (7.6-11.0); Carbon Dioxide 21.9 mmol/L (21.0-32.0); Chloride 107 mmol/L (98-108); Creatinine, Serum 0.96 mg/dL (0.70-1.20); EST Glomerular Filtration Rate 88 (>60); Globulin 2.2 g/dL (2.2-4.2); Glucose 79 mg/dL (70-99); Potassium 4.2 mmol/L (3.3-5.1); Protein, Total 6.2 g/dL (5.9-8.4); Sodium Level 139 mmol/L (133-145); Total Bilirubin 0.54 mg/dL (0.00-1.30)
[2024-06-26 06:27] LABS: HEPATITIS B SURFACE AG Negative (Negative); Hep C Antibodies Non Reactive (Non Reactive); Hepatitis A IgM Antibody Negative (Negative); Hepatitis B Core AB IgM Negative (Negative)
[2024-06-28 12:08] LABS: Anti-Nuclear Antibody Test Positive (.)
== END | disposition home or self-care (01) ==
LOC: VSLAB 14:34
PROVIDERS: PCP Nurse Practitioner Family; Visit Provider Physician Assistant
DX: L66.11 Classic lichen planopilaris (principal); L40.0 Psoriasis vulgaris
CPT/HCPCS: 36415; 80053; 80074; 85025; 86038

== ENCOUNTER → 2024-07-06 | Outpatient (CLI) | payer MEDICARE, SELFPAY ==
[2024-07-06 12:51] LABS: Erythrocyte Sedimentation Rate < 1 mm/hr (0-20)
[2024-07-06 13:27] LABS: Cholesterol 83 mg/dL (<=200); High Density Lipoprotein 44 mg/dL; Low Density Lipoprotein Calc. 30 mg/dL; Thyroid Stim Hormone (TSH) 0.724 uIU/mL (0.300-4.200); Triglycerides 47 mg/dL; Very Low Density Lipoprotein 9 mg/dL (5-40)
[2024-07-06 13:36] LABS: CRP < 3.00 mg/L (0.0-3.0)
[2024-07-07 04:07] LABS: Thyroid Peroxidase AB 12 IU/mL (0-34)
[2024-07-07 09:08] LABS: ANTINUCLEAR ANTIBODIES DIRECT Negative (Negative)
== END | disposition home or self-care (01) ==
LOC: VSLAB 11:10
PROVIDERS: PCP Nurse Practitioner Family; Visit Provider Nurse Practitioner Family
DX: E03.9 Hypothyroidism, unspecified (principal); E78.5 Hyperlipidemia, unspecified; M35.9 Systemic involvement of connective tissue, unspecified
CPT/HCPCS: 36415; 80061; 84439; 84443; 85652; 86038; 86140; 86376

== ENCOUNTER 2024-07-30 18:18 | Emergency (ER) | payer MEDICARE, SELFPAY ==
[2024-07-30 18:18] VITALS: BP 117/66; PULSE 68; RESP 16; TEMP 36.7; O2SAT 97; BMI 31.3
--- NOTE | 2024-07-30 18:19 | ED.VIS.FALL ---
HPI HPI - Fall History of Present Illness Chief Complaint: Fall PFSH PFS Medical History Wears partial dentures Gastric reflux Cardiology follow-up encounter Wears glasses Diabetes Hypothyroidism Non-smoker BiPAP (biphasic positive airway pressure) dependence Hx of cardiovascular stress test Edema Coronary artery disease Hypertension Migraine headache Injury of head and neck Excessive body weight loss Intertrigo Gynecomastia, male Panniculitis, unspecified Abdominal panniculus Vitamin deficiency GERD (gastroesophageal reflux disease) History of pneumonia Neuropathy High triglycerides High cholesterol Hearing problem Frequent headaches Anxiety and depression Back problem Essential hypertension Obstructive sleep apnea Bradycardia Subdural hematoma (08/03/18) Traumatic brain injury (08/03/18) Pressure ulcer of coccygeal region, stage 2 Dizziness Dyspnea on exertion Constipation Hypothyroidism (acquired) Hiatal hernia Preop cardiovascular exam Atherosclerotic heart disease of [place] coronary artery without angina pectoris Chronic diarrhea Obesity Diabetes type 2, uncontrolled Hyperlipidemia Home Medications ?Medication ?Instructions ?Recorded ?Last Taken ?Type omeprazole 20 mg capsule,delayed 20 mg PO DAILY gerd #30 caps 08/20/18 01/24/21 Rx release cholecalciferol (vitamin D3) 50 2,000 unit PO DAILY supplement 12/31/18 Unknown History mcg (2,000 unit) capsule (Vitamin D3) vitamin B complex 1 cap PO BID supplement 12/31/18 Unknown History zinc 50 mg tablet 50 mg PO DAILY supplement 03/22/20 Unknown History calcium 500 mg (as 1 ea PO DAILY supplement 05/09/20 Unknown History carbonate)-vitamin D3 15 mcg (600 unit) tablet levothyroxine 100 mcg tablet 100 mcg PO DAILY@0600 thyroid 10/18/20 01/24/21 History [id number] 1 tab PO DAILY 03/29/21 Unknown History tablet (Cerovite Senior) rimegepant 75 mg disintegrating 75 mg PO ONCE PRN migraine headache 02/25/22 Unknown History tablet (Nurtec ODT) atorvastatin 40 mg tablet 40 mg PO QHS cholesterol #90 tabs 03/27/22 Unknown Rx citalopram 40 mg tablet 40 mg PO QDAY 07/05/24 Unknown History doxycycline monohydrate 100 mg 100 mg PO QDAY 07/05/24 Unknown History capsule gabapentin 600 mg tablet 600 mg PO QHS 07/05/24 Unknown History melatonin 5 mg tablet 5 mg PO QHS PRN sleep 07/05/24 Unknown History semaglutide 1 mg/dose (4 mg/3 mL) 1 mg subcut QWEEK 07/05/24 Unknown History subcutaneous pen injector (Ozempic) topiramate 100 mg tablet 100 mg PO BID 07/05/24 Unknown History topiramate 50 mg tablet (Topamax) 50 mg PO BID seizures 07/05/24 Unknown History citalopram 10 mg tablet (Celexa) 10 mg PO DAILY 07/30/24 Unknown History Allergy/AdvReac Type Severity Reaction Status Date / Time celecoxib (From Celebrex) Allergy Intermediate Rash Verified 07/30/24 18:18 Family History Mother CAD (coronary artery disease) Diabetes History of blood clots Heart disease Hypertension High cholesterol Kidney disease Respiratory disease Seizures CVA (cerebral vascular accident) Father CAD (coronary artery disease) Hypertension Cancer Diabetes Heart disease High cholesterol CVA (cerebral vascular accident) Lung cancer Sister CAD (coronary artery disease) Hypertension Alcoholism Anxiety Suicide attempt Grandfather Diabetes Grandmother Diabetes Surgical History History of cholecystectomy History of bilateral mastectomy History of excision of lesion History of abdominal surgery (07/25/20) Hx of colonoscopy History of gastric bypass History of hernia repair Stented coronary artery (~02/2009) Hx of cholecystectomy Status post bariatric surgery removal of lypoma H/O hemorrhoidectomy removal of enlarged lymph node Social History Smoking Status: Never smoker second hand exposure: No alcohol intake: never substance use type: does not use caffeine: No additional social history: DOES TAKE ASPIRIN DOES TAKE IBUPROFEN EXAM Physical Exam Const Vital Signs: 07/30/24 18:18 07/30/24 20:22 Temperature 98.1 F Temperature Source Oral Pulse Rate 68 62 Respiratory Rate 16 16 Blood Pressure 117/66 125/70 H Blood Pressure Mean 83 88 Pulse Ox 97 94 Oxygen Delivery Method Room Air Room Air MDM MDM MDM Narrative Medical decision making narrative: HISTORY OF PRESENT ILLNESS: Chief complaint: fall 63-year-old male history of subdural hematoma, hypothyroidism, MARKY, type 2 diabetes presents with fall. Notes he fell in his bathtub on Friday. Notes he saw his PCP and to get x-rays but could not. He notes pain in his head, neck, back and abdomen. He further states the mat he was standing on fell out from under him causing a fall hitting his head, chest abdomen. Notes back pain as well. Denies taking blood thinners.. Denies numbness, tingling loss of consciousness. REVIEW OF SYSTEMS: Pertinent positives: As per HPI Pertinent negatives: As per HPI PHYSICAL EXAM: Primary Survey Airway: Intact Breathing: Bilateral breath sounds Circulation: Palpable bilateral femorals, Palpable bilateral radial, Palpable bilateral DP and Palpable bilateral PT Disability / Spine precautions GCS Score: Eye Openin Verbal Response: 5 Motor Response: 6 Secondary Survey Constitutional: Please see [facility] Head: Atraumatic, Midface stable, NO jaw malocclusion, No Cephalohematoma, and No Lacerations noted Eye: Pupils equal round and reactive to light, Extraocular muscles intact and No periorbital ecchymosis or stepoff, no evidence of entrapment ENT: Oropharynx clear, no lacerations, no hemotympanum, no raccoon eyes or sawyer sign Cervical spine / Neck: No cervical spine bony tenderness, crepitance, or stepoff deformity Trachea midline Lungs: Clear to auscultation, No asymmetric rise and No crepitus, no flail chest Cardiac: Regular rate and rhythm and No murmurs Abdomen: Soft, Nontender and No rebound Pelvis: Pelvis stable to compression : No evidence of genital injury Back: No midline bony tenderness to thoracic/lumbar/sacral spines Neuro: At baseline, intact strength and sensation in bilateral upper and lower extremities. 2+ patellar reflexes bilaterally. Extremities: NO gross Deformities Psych: Normal affect Nursing triage notes reviewed, Vital signs reviewed MEDICAL DECISION MAKING: Chief Complaint: please see HPI External records reviewed: [Reviewed prior imaging studies: Reviewed CT scan of the brain from 2022 which showed no acute abnormality Factors affecting care: As per HPI Social determinants of health: none History obtained from others: none Consults: none [facility] Narrative: The patient was initially hemodynamically stable, afebrile and nontoxic-appearing. Primary secondary trauma surveys concerning for the following differential: I considered the following differential diagnosis: Intracranial abnormality, cervical spine abnormality, chest abdomen pelvis abnormality, thoracic spine abnormality I obtained a broad lab and imaging workup to further elucidate etiology of the patient's complaints ALL IMAGES (IF OBTAINED) HAVE BEEN PERSONALLY REVIEWED AND INTERPRETED BY MYSELF. Imaging was obtained which showed no obvious acute traumatic abnormalities. Pain control instructions were given. PCP follow-up instructed. Strict return precautions were discussed The patient and/or family, caregivers express understanding. The patient and/or family, caregivers agrees with the plan. Shared decision making: I will have a discussion with the patient and or visitors regarding risk/benefits of further testing or admission. They will be made aware of of the risk/benefits inherent in this decision they will be given the opportunity to voice understanding. Total critical care time today provided was at least 0 minutes. This excludes separately billable procedures. Critical care time (if documented) is secondary to the patient having high probability of clinically significant/life threatening deterioration in the patient's condition which required my urgent intervention. Impression: 1. Closed head injury 2. Chest contusion 3. Back contusion Dispo: Discharge home This note was generated with [employer] dictation software. It may contain incorrect words, spelling, and punctuation that were not noted in review of the chart prior to signing. Radiography Diagnostic Testing: Clinical Impression(s) from Imaging Studies Brain CT 07/30/24 18:45 IMPRESSION: No acute intracranial abnormality. Reading Location: [facility] Cervical Spine CT 07/30/24 18:45 IMPRESSION: No displaced fracture or traumatic listhesis of the cervical spine. Mild multilevel degenerative changes, worst at C5-6. Reading Location: [facility] Chest/Abdomen/Pelvis CT 07/30/24 18:45 IMPRESSION: Chest: No acute findings in the thorax. Abdomen and pelvis: No acute findings in the abdomen and pelvis. Extensive colonic stool with fecal impaction. Reading Location: [facility] Thoracic Spine CT 07/30/24 18:45 IMPRESSION: No acute fracture or traumatic subluxation. Reading Location: [facility] Discharge Plan Triage Chief Complaint: Fall ED Provider: Hiram Burns Dx/Rx/DC Orders Prescriptions: No Action cholecalciferol (vitamin D3) [Vitamin D3] 2,000 unit capsule 2,000 unit PO DAILY vitamin B complex Capsule 1 cap PO BID topiramate [Topamax] 50 mg tablet 50 mg PO BID zinc 50 mg tablet 50 mg PO DAILY Cerovite Senior Tablet 1 tab PO DAILY atorvastatin 40 mg tablet 40 mg PO QHS Qty: 90 3RF Nurtec ODT 75 mg tablet,disintegrating 75 mg PO ONCE PRN (Reason: migraine headache) Rx Instructions: as a single dose doxycycline monohydrate 100 mg capsule 100 mg PO QDAY Ozempic 1 mg/dose (4 mg/3 mL) pen injector 1 mg subcut QWEEK topiramate 100 mg tablet 100 mg PO BID melatonin 5 mg tablet 5 mg PO QHS PRN (Reason: sleep) citalopram 40 mg tablet 40 mg PO QDAY gabapentin 600 mg tablet 600 mg PO QHS omeprazole 20 MG capsule 20 mg PO DAILY Qty: 30 3RF calcium carbonate-vitamin D3 1 EACH tablet 1 ea PO DAILY levothyroxine 100 MCG tablet 100 mcg PO DAILY@0600 citalopram [Celexa] 10 mg tablet 10 mg PO DAILY Primary Care Provider: Samantha Khoury Referrals: Mandi Sandoval, FINGERNAIL FORMER-C [[facility]] - Print Language: Georgian
[2024-07-30] MEDS: oxyCODONE 5 MG Tablet PO (18:41)
--- NOTE | 2024-07-30 18:45 | CT_ITS ---
PROCEDURE: CT CHEST, ABD, PELVIS WO CONT 07/30/2024 REASON FOR EXAM: CHEST PAIN, ABDOMINAL PAIN AND AFTER FALL TECHNIQUE: Chest, abdomen and pelvis CT without intravenous contrast. Coronal and Sagittal reconstruction series were provided. One or more dose reduction techniques were used (e.g., Automated exposure control, adjustment of the mA and/or kV according to patient size, use of iterative reconstruction technique. COMPARISON: CT chest 10/24/2018 FINDINGS: CT CHEST: Hardware: None Lymph nodes: No suspicious adenopathy. Heart and Vasculature: Mild cardiomegaly. Severe coronary artery calcifications. No pericardial effusion. Atherosclerotic calcifications of the thoracic aorta. Thoracic aorta and pulmonary arteries have normal contours; noncontrast technique limits evaluation. Coronary Artery Calcifications: Present Lungs and Airways: Central airways are patent without endobronchial lesions. Patchy opacities in the lung base, compatible with atelectasis. No focal consolidation. No suspicious pulmonary nodules. No pneumothorax. No pleural effusion. Bones: Degenerative changes of the thoracic spine. No focal osseous abnormality. Chest wall: Mild bilateral gynecomastia. CT ABDOMEN / PELVIS: Noncontrast technique limits evaluation of the abdominal and pelvic viscera. Liver: Normal size. No mass. Gallbladder: No ductal dilation. Status post cholecystectomy. Spleen: Multiple splenic granulomas. No splenomegaly. Pancreas: Normal size without evidence of mass surrounding inflammation or ductal dilation. Adrenals: Unremarkable Kidneys: Bilateral parapelvic cysts. No calculi or hydronephrosis. Bladder: Urinary bladder is unremarkable. Reproductive Organs: No pelvic mass. Bowel: Status post [id number]. No bowel dilation or wall thickening. Extensive colonic stool with fecal impaction. Appendix: Normal appendix. Lymph nodes: No suspicious adenopathy. Vasculature: Mild diffuse atherosclerotic calcifications are noted. Peritoneum / Retroperitoneum: No ascites. No pneumoperitoneum. Bones: Degenerative changes of the spine. Soft tissue: Mild subcutaneous edema. CT/CT Chest, Abd, Pelvis WO Cont IMPRESSION: Chest: No acute findings in the thorax. Abdomen and pelvis: No acute findings in the abdomen and pelvis. Extensive colonic stool with fecal impaction. [facility]
--- NOTE | 2024-07-30 18:45 | CT_ITS ---
PROCEDURE: BRAIN/HEAD WITHOUT CONTRAST 07/30/2024 REASON FOR EXAM: HEAD TRAUMA TECHNIQUE: Head CT without intravenous contrast. Coronal and Sagittal reconstruction series were provided. One or more dose reduction techniques were used (e.g., Automated exposure control, adjustment of the mA and/or kV according to patient size, use of iterative reconstruction technique. RADIATION DOSE SUMMARY: CTDlvol: 45.0 mGy DLP: 830 mGycm COMPARISON: CT head 04/06/2022 FINDINGS: Brain: No acute intracranial hemorrhage, mass effect, or midline shift. CSF Spaces: Unremarkable Sinuses/Mastoids: Clear at visualized levels Bones: No displaced calvarial fracture. Stranding in the left parietal scalp soft tissues is unchanged.. CT/Brain/Head without Contrast IMPRESSION: No acute intracranial abnormality. Reading Location: [id number]
--- NOTE | 2024-07-30 18:45 | CT_ITS ---
PROCEDURE: SPINE CERVICAL WITHOUT CONTRAS 07/30/2024 REASON FOR EXAM: NECK PAIN TECHNIQUE: Cervical spine CT without contrast. Coronal and Sagittal reconstruction series were provided. One or more dose reduction techniques were used (e.g., Automated exposure control, adjustment of the mA and/or kV according to patient size, use of iterative reconstruction technique RADIATION DOSE SUMMARY: CTDlvol: 20.1 mGy DLP: 420 mGycm COMPARISON: CT cervical spine 08/02/2018 FINDINGS: Vertebral body heights and alignment are maintained. No displaced fracture. Mild endplate osteophyte formation and disc space narrowing is worst at C5-6 where there is mild osseous neural foraminal narrowing bilaterally. Surgical clips in the left neck soft tissues. Carotid bulb calcifications. Lung apices are clear. CT/Spine Cervical without Contras IMPRESSION: No displaced fracture or traumatic listhesis of the cervical spine. Mild multilevel degenerative changes, worst at C5-6. Reading Location: [facility]
--- NOTE | 2024-07-30 18:45 | CT_ITS ---
PROCEDURE: SPINE THORACIC WITHOUT CONTRAS REASON FOR EXAM: BACK PAIN AFTER FALL TECHNIQUE: Thoracic spine CT without contrast. Coronal and Sagittal reconstruction series were provided. One or more dose reduction techniques were used (e.g., Automated exposure control, adjustment of the mA and/or kV according to patient size, use of iterative reconstruction technique). COMPARISON: None FINDINGS: Alignment: Thoracic kyphosis is maintained. Bones: Mild loss of disc height at T3 vertebral body, likely secondary to a herniated Schmorl's node. Otherwise, vertebral body heights and disc spaces are within normal limits. No acute fracture or traumatic subluxation. No suspicious lytic or blastic lesion. No significant degenerative changes of the thoracic spine. 4 Soft Tissues: Paraspinal soft tissues are unremarkable. Other: Atelectasis within the imaged lung kirk. CT/Spine Thoracic without Contras IMPRESSION: No acute fracture or traumatic subluxation. Reading Location: [facility]
[2024-07-30 20:22] VITALS: BP 125/70; PULSE 62; RESP 16; O2SAT 94
[2024-07-30 21:18] VITALS: BP 128/66; PULSE 56; RESP 16; TEMP 36.8; O2SAT 96
== END 2024-07-30 21:20 | disposition home or self-care (01) ==
LOC: ED 18:48
PROVIDERS: Emergency Provider Emergency Medicine; PCP Nurse Practitioner Family; Visit Provider Emergency Medicine
DX: S09.90XA Unspecified injury of head, initial encounter (principal); E11.40 Type 2 diabetes mellitus with diabetic neuropathy, unspecified; S20.229A Contusion of unspecified back wall of thorax, initial encounter; I10 Essential (primary) hypertension; I25.10 Atherosclerotic heart disease of native coronary artery without angina pectoris; E78.00 Pure hypercholesterolemia, unspecified; E03.9 Hypothyroidism, unspecified; G47.33 Obstructive sleep apnea (adult) (pediatric); Z79.899 Other long term (current) drug therapy; W19.XXXA Unspecified fall, initial encounter
CPT/HCPCS: 70450; 71250; 72125; 72128; 74176; 99282

== ENCOUNTER → 2024-12-08 | Outpatient (CLI) | payer MEDICARE, SELFPAY ==
--- OUTSIDE RECORDS SUMMARY | 2024-12-08 20:05 | XMS RPT_ITS | CCD ---
Author Organization [facility] Care Team Providers Care Preparer Samples And Repairs Name Role Phone LIAM Lopes, Keli Godoy Primary Care Provider Keli Pacheco Primary Care Provider [facility] Pro vider [facility], [facility] Referring Provid er Dayanara BUTTON BREAKER, BUTTON BREAKER-C Chasidy Cunha Attending Provider [phone] Dr. Madeline Jacobson Attending Provider Dr. Rogelio Roman Referring Provider Dr. Zak Barcenas Attending Provider Dr. Jay Rodríguez Referring Provider Roof BUTTON BREAKER, BUTTON BREAKER-C Tashi Li Attending Provider Dayanara BUTTON BREAKER, BUTTON BREAKER-C Chasidy Cunha Referring Provider Berhane NEURO PSYCH SALES SPECIALIST - Keli RIVAS Primary Care Provider [facility], [place] Valdez Primary Care Pro vider [facility], [place] Referring Provid er Dayanara BUTTON BREAKER, BUTTON BREAKER-C Chasidy Cunha Attending Provider Dr. Madeline Jacobson Attending Provider Keli Last Primary Care Provider [facility], [place] Court[place] Primary Care Pro vider [facility], [place] Referring Provid er Dr. Cody Lombardi Attending Provider Dr. Madeline Jacobson Attending Provider [phone] Cody Lombardi Referring Provider [phone] Eisenberg IN HOUSE COUNSEL, Lia K Primary Care Provider Eisenberg IN HOUSE COUNSEL, Lia K Primary Care Provider Swihart NEURO PSYCH SALES SPECIALIST - IN HOUSE COUNSEL, Keli L Primary Care Provider WELLS, PIYUSH W Attending Unavailable Swihart, Keli Primary Care Unavailable PROVIDER, UNKNOWN Referring Unavailable WELLS, PIYUSH W Attending Unavailable Swihart, Keli Primary Care Unavailable PROVIDER, UNKNOWN Referring Unavailable Swihart, Keli Primary Care Unavailable PROVIDER, UNKNOWN Referring Unavailable WELLS, PIYUSH W Attending Unavailable Swihart, Keli Primary Care Unavailable PROVIDER, UNKNOWN Referring Unavailable WELLS, PIYUSH W Attending Unavailable Swihart, Keli Primary Care Unavailable PROVIDER, UNKNOWN Referring Unavailable WELLS, PIYUSH W Attending Unavailable Swihart, Keli Primary Care Unavailable PROVIDER, UNKNOWN Referring Unavailable WELLS, PIYUSH W Attending Unavailable Eisenberg IN HOUSE COUNSEL, Lia K Primary Care Provider [facility], [facility] Primary Care Pro vider Dr. Zak Barcenas Attending Provider MARISOL Eisenberg-C Lia Referring Provider [facility], [facility] Referring Provid er Roof BUTTON BREAKER, MARISOL-Wilbert Li Attending Provider [facility], [facility] Primary Care Pro vider Dr. Zak Barcenas Attending Provider [phone] [place] Wilbert, BUTTON BREAKER-C Lia Referring Provider [facility], [facility] Referring Provid er Roof BUTTON BREAKER, BUTTON BREAKER-Wilbert Li Attending Provider Berhane, Keli Primary Care Provider [facility], [facility] Primary Care Pro vider [facility], [facility] Referring Provid er Roof BUTTON BREAKER, BUTTON BREAKER-C Tashi Li Attending Provider Mandi Sandoval MD Unavailable Unallocated, Noms Provider Primary Care Provider [facility] Pro vider [facility], [place] Referring Provid er Dr. Zak Barcenas Attending Provider PIYUSH RICE Attending Unavailable SWIHART, KELI Primary Care Unavailable PIYUSH RICE Attending Unavailable SWIHART, KELI Primary Care Unavailable Eisenberg IN HOUSE COUNSEL, Lia K Primary Care Provider Unallocated MD, Noms Provider Primary Care Provi michael Hoang BUTTON BREAKER, Mandi Primary Care Provider TINO ZULETA Admitting Unavailab le JORDY, TINO STARKS Attending Unavailab le EISENBERG, LIA K Primary Care Unavailable JORDY, TINO STARKS Admitting Unavailab le JORDY, TINO STARKS Attending Unavailab le EISENBERG, LIA K Primary Care Unavailable JORDY, TINO STARKS Attending Unavailab le HOANG, MANDI Primary Care Unavailable WEYGANDT, DONY S Attending Unavailable WEYGANDT, DONY S Referring Unavailable WEYGANDT, DONY S Attending Unavailable WEYGANDT, DONY S Attending Unavailable WEYGANDT, DONY S Referring Unavailable WEYGANDT, DONY S Attending Unavailable WEYGANDT, DONY S Attending Unavailable NICHOLAS URIAS Attending Unavailable Hoang BUTTON BREAKER-C, Mandi Primary Care Provider Desiree Fung Attending Provider Desiree Fung Referring Provider Hoang BUTTON BREAKER-C, Mandi Attending Provider Dr. Jay Marshall DO Emergency Provider [phone] Dr. Jay Marshall DO Attending Provider oHang BUTTON BREAKER-C, Mandi Primary Care Provider Hodan Lim Attending Provider [facility], [place] Referring Provid er Gustavo BUTTON BREAKER-CMyrna Attending Provider Peng BUTTON BREAKER-C, Samantha Attending Provider Hoang BUTTON BREAKER-C, Mandi Primary Care Provider Dr. Hiram Burns DO Emergency Provider Cedrichof BUTTON BREAKER-C, Samantha Primary Care Provider Hoang BUTTON BREAKER-C, Mandi Primary Care Provider Dr. Hiram Burns DO Attending Provider [phone] Hoang BUTTON BREAKER-C, Mandi Referring Provider Dr. Kevon Muñoz MD Attending Provider Peng BUTTON BREAKER-C, Samantha Referring Provider NEGIN KAUFMAN Referring Unavailable HOANG, MANDI Primary Care Unavailable TINO ZULETA Attending Unavailab le HOANG, MANDI Primary Care Unavailable DHARA PECK Attending Unavailable HOANG, MANDI Primary Care Unavailable DHARA PECK Attending Unavailable DHARA PECK Referring Unavailable HOANG, MANDI Primary Care Unavailable KELLEY CRAIG Attending Unavailable QUEENERDHARA Referring Unavailable HOANG, MANDI Primary Care Unavailable TINO ZULETA Attending Unavailab le EISENBERG, LIA K Primary Care Unavailable TINO ZULETA Referring Unavailab le HOANG, MANDI Primary Care Unavailable Hoang BUTTON BREAKER-C, Mandi Primary Care Provider Gustavo DAMON-Myrna Atkins Attending Provider Samantha Khoury Referring Unavailable Kevon Muñoz Attending Unavailable Hoang VSC, Mandi Primary Care Unavailkeyonna e Myrna Chen NP Attending Unavailable Hoang VSC, Mandi Referring Unavailabl e Hoang VSC, Mandi Primary Care Unavailabl e [facility], [place] Valdez Referring Unavailable Myrna Chen NP Attending Unavailable Hoang VSC, Mandi Primary Care Unavailabl e Samantha Khoury Referring Unavailable Kevon Muñoz Attending Unavailable Hoang VSC, Mandi Primary Care Unavailabl e Gustavo BUTTON BREAKER, Myrna Attending Unavailable Hoang VSC, Mandi Referring Unavailabl e Hoang VSC, Mandi Primary Care Unavailabl e Hoang VSC, Mandi Primary Care Unavailabl e Desiree Gill Attending Unavailable Desiree Gill Referring Unavailable Samantha Khoury Attending Unavailable [facility] Primary Care Unavailabl e Gustavo BUTTON BREAKER, Myrna Attending Unavailable Gustavo BUTTON BREAKER, Myrna Referring Unavailable [facility] Primary Care Unavailabl e [facility] Primary Care Unavailabl e [facility], Mandi Attending Unavailabl e [facility] Primary Care Unavailabl e [facility], Mandi Attending Unavailabl e Hiram Burns Attending Unavailable Tannho, Samantha Primary Care Unavailable [facility] Primary Care Unavailabl e Jay Marshall Attending Unavailable SamirSamantha Attending Unavailable [facility] Primary Care Unavailabl e Hodan Lim Attending Unavailable [facility] Primary [facility] Unavailabl e [facility] Primary Care Unavailabl e [facility] Attending Unavailabl e Allergies Allergy Classification Reported Allergen(s) Allergy Type Date of Onset Reaction(s) Facility (1 source) celecoxib Drug Allergy 1 [facility] Work Phone: (20 sources) celecoxib; Translations: [CELECOXIB] Drug Allergy 8 Other (See Comments) [place], [place] (12 sources) celecoxib Drug Allergy 8 Other [facility] (1 source) celecoxib Drug Allergy 5 [facility] Repository Medications Current Medications Medication Drug Class(es) Dates Sig (Normalized) Sig (Original) acetaminophen 325 mg / HYDROcodone bitartrate 5 mg oral tablet (18 sources) Opioid Agonist Start: 04-19-2022 End: 04-24-2022 take 1 tablet by mouth every eight hours as needed for pain HYDROcodone-aceta minophen (NORCO) 5-325 mg per tablet Indications: Carpal tunnel syndrome of left wrist Take 1 tablet by mouth every 8 hours as needed for pain for up to 5 days. 10 tablet 0 04/19/2022 04/24/2022 Active Start: 10-24-2018 End: 10-28-2018 Hydrocodone-Acetaminophen 1 TABLET tablet Discontinued 1 {tbl} PO EVERY 4 HOURS NEEDED as needed for Pain 10 2 0 October 24, 2018 October 25, 2018 12:00am October 28, 2018 12:07am Contusion of chest wall Contusion of unspecified front wall of thorax, initial encounter Start: 10-24-2018 End: 10-28-2018 take 1 tablet by mouth every four hours as needed Hydrocodone-Acetaminophen Discontinued 1 TABLET PO EVERY 4 HOURS NEEDED 10 2 October 24, 2018 October 27, 2018 11:07pm Comment on above: Take 1 tablet by oumar th every 8 hours as needed for pain for up to 5 days. acetaminophen 325 mg / oxyCODONE hydrochloride 5 mg oral tablet (20 sources) Opioid Agonist Start: 01-26-2024 End: 01-29-2024 take 1-2 tablets by mouth every four hours as needed for pain oxyCODONE-acetamino phen (PERCOCET) 5-325 mg tablet Indications: Adhesive capsulitis of left shoulder Take 1-2 tablets by mouth every 4 hours as needed for pain for up to 3 days. 28 tablet 01/26/2024 01/29/2024 Active Start: 10-17-2023 End: 10-20-2023 take 1-2 tablets by mouth every four hours as needed for pain oxyCODONE-acetaminophen (PERCOCET) 5-325 mg tablet Indications: S/P shoulder surgery Take 1-2 tablets by mouth every 4 hours as needed for pain for up to 3 days. 28 tablet 0 10/17/2023 10/20/2023 Active Start: 10-06-2023 End: 10-09-2023 take 1-2 tablets by mouth every four hours as needed for pain oxyCODONE-acetaminophen (PERCOCET) 5-325 mg tablet Indications: S/P shoulder surgery Take 1-2 tablets by mouth every 4 hours as needed for pain for up to 3 days. 28 tablet 0 10/06/2023 10/09/2023 Active Start: 06-26-2022 End: 07-03-2022 take 1 tablet by mouth every six hours as needed for pain oxyCODONE-acetaminophen (PERCOCET) 5-325 mg tablet Indications: Status post shoulder surgery , Adhesive capsulitis of right shoulder Take one tablet by mouth every 6 hours as needed for pain. 28 tablet 0 06/26/2022 07/03/2022 Active Start: 05-29-2022 End: 06-21-2022 take 1-2 tablets by mouth every four hours as needed oxyCODONE-acetaminophen (PERCOCET) 5-325 mg tablet Indications: pain Take 1-2 tablets by mouth every 4 hours as needed for up to 7 days. 28 tablet 0 06/14/2022 06/21/2022 Active Start: 02-21-2021 End: 02-28-2021 Oxycodone-Acetaminophen (Per cocet) 5-325 mg tablet Discontinued 1 {tbl} PO THREE TIMES A DAY as needed for pain (scale score 7-10) 20 7 0 February 21, 2021 February 27, 2021 1:00am February 28, 2021 1:01am Other acute postprocedural pain Other acute postprocedural pain Start: 01-26-2021 End: 04-06-2021 Oxycodone-Acetaminophen (Per cocet) 5-325 mg tablet Discontinued 1 {tbl} PO Q4H as needed for pain (scale score 7-10) 40 7 0 January 26, 2021 April 06, 2021 2:34pm Other acute postprocedural pain Other acute postprocedural pain Start: 07-27-2020 End: 08-03-2020 Oxycodone-Acetaminophen (Per cocet) 5-325 mg tablet Discontinued 1 {tbl} PO 4 TIMES DAILY as needed for pain (scale score 7-10) 28 7 0 July 27, 2020 August 02, 2020 12:00am August 03, 2020 12:01am Other acute postprocedural pain Other acute postprocedural pain oxyCODONE-acetam inophen (Roxicet) 5-325 MG/5ML solution Take by mouth. 0 Active Comment on above: Take 1-2 tablets by mouth every 4 hours as needed for up to 7 days. Take one tablet by m outh every 6 hours as needed for pain. ascorbic acid 60 mg / beta carotene 5000 unt / copper sulfate 40 mg / dl-alpha tocopheryl acetate 30 unt / sodium selenite 0.04 mg / zinc oxide 40 mg oral tablet (7 sources) Vitamin C take 1 tablet by mouth once daily Multiple Vitamin (Multivitamin Adult) tablet 1 tablet Orally daily Active B Complex Vitamins (B COMPLEX PO) (6 sources) B Complex Vitami ns (B COMPLEX PO) as directed Orally Active B Complex Vitami ns (B COMPLEX PO) as directed Orally 0 Active b complex vitamins capsule (14 sources) take 1 capsule by mo uth twice daily b complex vitamins capsule Take 1 capsule by mouth 2 times daily. 0 Active take 1 capsule by mouth twice da joseph b complex vitamins capsule Take 1 capsule by mouth 2 times daily 0 Active BiPAP Machine MISC (9 sources) Blood-Glucose Meter (ONETOUC H VERIO METER) (20 sources) Start: 08-31-2020 Blood-Glucose Meter (ONETOUCH VERIO METER) Indications: Controlled type 2 diabetes mellitus with diabetic polyneuropathy, without long-term current use of insulin (HCC) Use to test glucose once daily as directed. DX: E11.42, non insulin dependent. 1 Each 08/31/2020 Active Start: 08-31-2020 Blood-Glucose Meter (ONETOUCH VERIO METER) Indications: Controlled type 2 diabetes mellitus with diabetic polyneuropathy, without long-term current use of insulin (HCC) Use to test glucose once daily as directed. DX: E11.42, non insulin dependent. 1 Each 0 08/31/2020 Active Comment on above: Use to test glucose once daily as directed. DX: E11.42, non insulin dependent. Calcium Carb-Cholecalciferol (OYSTER SHELL CALCIUM + D3 PO) (6 sources) take 1 tablet by mouth at mealtime Calcium Carb-Cholecalcifero l (OYSTER SHELL CALCIUM + D3 PO) Take 1 tablet by mouth in the morning. Take with meals. Active take 1 tablet by mouth at mealti me Calcium Carb-Cholecalciferol (OYSTER SHELL CALCIUM + D3 PO) Take 1 tablet by mouth in the morning. Take with meals. 0 Active calcium carbonate 1250 mg / cholecalciferol 200 unt oral tablet (20 sources) Vitamin D Start: 09-05-2020 take 1 tablet by mouth once daily OYSTER SHELL CALCIUM-VITAMIN D 500 mg(1,250mg) -200 unit per tablet Take 1 tablet by mouth once daily. 09/05/2020 Active Start: 09-05-2020 OYSTER SHELL C ALCIUM-VITAMIN D 500 mg(1,250mg) -200 unit per tablet Start: 05-09-2020 End: 10-06-2024 Calcium Carbonate-Vitamin D3 1 EACH tablet Discontinued 1 NMA PO DAILY May 09, 2020 1:00am October 06, 2024 2:09pm supplement Start: 05-09-2020 Calcium Carbon ate-Vitamin D3 Active 1 EACH PO DAILY May 09, 2020 12:00am Start: 08-20-2018 End: 12-31-2018 Calcium Carbonate-Vitamin D3 1 TABLET tablet Discontinued 1 {tbl} PO TWICE DAILY WITH MEALS 60 3 August 20, 2018 12:00am December 31, 2018 10:44am Start: 08-20-2018 End: 12-31-2018 take 1 tablet by mouth twice daily at mealtime Calcium Carbonate-Vitamin D3 Discontinued 1 TABLET PO TWICE DAILY WITH MEALS 60 August 19, 2018 11:00pm December 31, 2018 9:44am Start: 08-10-2018 End: 08-20-2018 Calcium Carbonate-Vitamin D3 1 EACH tablet Discontinued 1 NMA PO TWICE A DAY August 10, 2018 12:00am August 20, 2018 5:23pm supp Start: 08-10-2018 End: 08-20-2018 Calcium Carbonate-Vitamin D3 Discontinued 1 EACH PO TWICE A DAY August 09, 2018 11:00pm August 20, 2018 4:23pm Comment on above: Take 1 tablet by oumar th once daily. Calcium Carbonate / Vitamin D (8 sources) take 1 capsule by mouth once daily Calcium Carbonate-Vitamin D (OYSTER SHELL/VITAMIN D PO) Take 1 capsule by mouth daily 0 Active Calcium Citrate / Vitamin D (1 source) Start: 05-05-19 take 500 mg by mouth three times daily Calcium Citrate-Vitamin D (CALCIUM CITRATE +D PO) Indications: supplement Take 500 mg by mouth 3 times daily 0 05/05/2018 Active cholecalciferol 0.05 mg oral tablet (20 sources) Vitamin D Start: 10-07-19 25 take 1 tablet by mouth once daily Cholecalciferol (Vitamin D3) 50 mcg (2,000 unit) tablet Active 50 ug PO daily October 06, 2024 12:00am Start: 01-25-2022 take 1 tablet by oumar th once daily cholecalciferol (Vitamin D-3) 50 MCG (2000 UT) tablet Take 50 mcg by mouth daily. 0 01/25/2022 Active Start: 12-31-2018 End: 10-06-2024 take 1 capsule by mouth once daily Cholecalciferol (Vitamin D3) (Vitamin D3) 2,000 unit capsule Discontinued 2000 U PO DAILY December 31, 2018 12:00am October 06, 2024 2:09pm supplement Start: 08-07-2017 End: 01-30-2018 take 1 capsule by mouth every week Cholecalciferol (Vitamin D3) 50,000 unit capsule Discontinued 23678 U PO EVERY WEEK August 07, 2017 12:00am January 30, 2018 10:05am take 2 capsules by m outh once daily Cholecalciferol, Vitamin D3, 2,000 unit cap Take 2 capsules by mouth once daily. Active take 2000 [IU] by mo uth twice daily Cholecalciferol (VITAMIN D3 PO) Take 2,000 Units by mouth 2 times daily 0 Active Comment on above: Take 2 capsules by m outh once daily. Clobetasol (5 sources) Corticosteroid Start: 10-18-2024 Clobetasol 0.05 % solution Active TOPICAL October 18, 2024 12:00am Start: 10-06-2024 Clobetasol 0.0 5 % shampoo Active TOPICAL daily October 06, 2024 12:00am cyanocobalamin, vitamin B-12 , (VITAMIN B-12 ORAL) (20 sources) take 500 [IU] by mouth twice daily cyanocobalamin, vitamin B-12, (VITAMIN B-12 ORAL) Take 500 Units by mouth two times a day. Active take 500 [IU] by mouth twice mary ly cyanocobalamin, vitamin B-12, (VITAMIN B-12 ORAL) Take 500 Units by mouth two times a day. 0 Active take 500 [IU] by mouth every wee k cyanocobalamin, vitamin B-12, (VITAMIN B-12 ORAL) Take 500 Units by mouth one time a week. 0 Active take 500 [IU] by mouth every wee k cyanocobalamin, vitamin B-12, (VITAMIN B-12 ORAL) Take 500 Units by mouth once each week. 0 Active Comment on above: Take 500 Units by mo uth once each week. Take 500 Units by mo uth one time a week. doxycycline monohydrate 100 mg oral tablet (9 sources) Tetracycline-cla ss Drug Start: 10-06-2024 take 1 tablet by mouth once daily Doxycycline Monohydrate 100 mg tablet Active 100 mg PO daily October 06, 2024 12:00am Start: 07-05-2024 End: 10-06-2024 take 1 capsule by mouth once daily Doxycycline Monohydrate 100 mg capsule Discontinued 100 mg PO daily July 05, 2024 12:00am October 06, 2024 2:10pm ergocalciferol 2000 unt oral capsule (20 sources) Provitamin D2 Compound Start: 02-09-2018 take 2 capsules by mouth once daily Vitamin D, Ergocalciferol, 2000 units CAPS Indications: Intestinal malabsorption, unspecified type Take 2 capsules by mouth daily 60 capsule 11 02/09/2018 Active Start: 01-31-2017 End: 08-07-2017 Ergocalciferol (Vitamin D2) 50,000 UNIT capsule Discontinued 53285 U PO Q7D January 31, 2017 1:00am August 07, 2017 12:55pm Start: 08-29-2015 take 1 tablet by oumar every week VITAMIN D (ERGOCALCIFEROL) 75426 UNIT CAPS One tablet by mouth weekly ERGOCALCIFEROL [id number] Silvio Batista MD gabapentin 600 mg oral tablet (20 sources) Anti-epileptic Agent Start: 07-05-2024 take 1 tablet by mouth at bedtime Gabapentin 600 mg tablet Active 600 mg PO AT BEDTIME July 05, 2024 12:00am Start: 07-23-2023 take 1 capsule by mo [facility] three times daily gabapentin (NEURONTIN) 300 mg capsule Take 300 mg by mouth three times a day. 07/23/2023 Active Start: 07-04-2023 End: 07-05-2024 take 1 capsule by mouth once daily Gabapentin 300 mg capsule Discontinued 300 mg PO daily July 04, 2023 12:00am July 05, 2024 1:33pm magnesium oxide 400 mg oral capsule (20 sources) take 1 capsule by mouth once daily magnesium oxide 400 mg magnesium cap Take 1 capsule by mouth once daily. Active melatonin 5 mg oral tablet (20 sources) Start: 07-05-2024 take 1 tablet by mouth at bedtime as needed for sleep Melatonin 5 mg tablet Active 5 mg PO AT BEDTIME as needed for sleep July 05, 2024 12:00am Start: 07-04-2023 End: 07-05-2024 take 10 mg by mouth at bedtime as needed for sleep Melatonin 3 mg tablet Discontinued 10 mg PO AT BEDTIME as needed for Sleep July 04, 2023 12:49pm July 05, 2024 1:33pm Start: 03-22-2020 End: 07-04-2023 take 1 tablet by mouth at bedtime as needed for sleep Melatonin 3 mg tablet Discontinued 3 mg PO AT BEDTIME as needed for Sleep March 22, 2020 11:42am July 04, 2023 12:51pm Start: 03-22-2019 take 1 capsule by mo uth once daily at bedtime melatonin 3 mg capsules Take 3 mg by mouth daily at bedtime. 0 03/22/2019 Active Start: 08-10-2018 End: 03-22-2020 take 2 tablets by mouth at bedtime Melatonin 3 MG tablet Discontinued 6 mg PO AT BEDTIME 30 August 20, 2018 12:00am March 22, 2020 11:42am Start: 08-10-2018 End: 03-22-2020 take 6 mg by mouth at bedtime Melatonin Discontinued 6 MG PO AT BEDTIME August 19, 2018 11:00pm March 22, 2020 10:42am melatonin 3 MG t ablet Take 5 mg by mouth as needed at bedtime. Active Comment on above: Take 2 tablets by mo uth daily at bedtime. Take 3 mg by mouth d aily at bedtime. minoxidil 2.5 mg oral tablet (2 sources) Arteriolar Vasodilator Start: 11-25-2024 take 1 tablet by mouth once daily Minoxidil 2.5 mg tablet Active 2.5 mg PO daily November 25, 2024 12:00am take 1 tablet by mouth once jevon y minoxidil (LONITEN) 2.5 mg tablet Take 2.5 mg by mouth once daily. Active Multiple Vitamins-Minerals ( Cerovite Senior) tablet (6 sources) Multiple Vitamin s-Minerals (Cerovite Senior) tablet as directed Orally Active Multiple Vitamin s-Minerals (Cerovite Senior) tablet as directed Orally 0 Active Multiple Vitamins-Minerals (THERAPEUTIC MULTIVITAMIN-MINERALS) tablet (8 sources) take 2 tablets by mouth once daily Multiple Vitamins-Minerals (THERAPEUTIC MULTIVITAMIN-MINERALS) tablet Indications: Supplement Take 2 tablets by mouth daily Indications: Supplement 0 Active take 1 tablet by mouth once jevon y Multiple Vitamins-Minerals (THERAPEUTIC MULTIVITAMIN-MINERALS) tablet Indications: Supplement Take 1 tablet by mouth daily 0 Active multivit-min/folic/vit K/lyc op (ONE-A-DAY MEN'S MULTIVITAMIN ORAL) (20 sources) take 1 tablet by mouth once daily, then take 1 tablet by mouth once daily multivit-min/folic/vit K/lycop (ONE-A-DAY MEN'S MULTIVITAMIN ORAL) Take 1 tablet by mouth once daily. Active take 1 tablet by oumar th once daily, then take 1 tablet by mouth once daily multivit-min/folic/vit K/lycop (ONE-A-DA Y MEN'S MULTIVITAMIN ORAL) Take 1 tablet by mouth once daily. 0 Active Comment on above: Take 1 tablet by oumar th once daily. Multivitamin-[place] ls-Lutein (Cerovite Senior) tablet (20 sources) Start: 03-29-2021 take 1 tablet by mouth once daily Multivitamin-[place] als-Lutein (Cerovite Senior) tablet Active 1 TABLET PO DAILY March 29, 2021 2:51pm Start: 03-29-2021 Multivitamin-M inerals-Lutein (Cerovite Senior) tablet Active 1 {tbl} PO DAILY March 29, 2021 1:00am Start: 03-29-2021 take 1 tablet by oumar th once daily Bvrnkgxffryk-Lmoyjrhz-Byxahe (Cerovite Senior) tablet Active 1 TABLET PO DAILY March 29, 2021 12:00am Start: 03-29-2021 take 1 tablet by oumar th once daily Zvqmzqovjdal-Bornlpze-Wtqudi (Cerovite Senior) tablet Active 1 TABLET PO DAILY March 29, 2021 1:00am Start: 2019 End: 01-19-2020 take 1 tablet by mouth once daily Dvrrpsvwqfuz-Meeuwvdt-Atketl (Cerovite Senior) tablet Discontinued 1 TABLET PO DAILY 2019 10:57am January 19, 2020 2:54pm Start: 2019 End: 01-19-2020 Ivztbdaktnxs-Ixtordyt-Pjngob (Cerovite Senior) tablet Discontinued 1 {tbl} PO DAILY 2019 12:00am January 19, 2020 2:54pm Start: 2019 End: 01-19-2020 take 1 tablet by mouth once daily Jgbsgkaensrl-Acvtpkpp-Lnvlcc (Cerovite Senior) tablet Discontinued 1 TABLET PO DAILY December 16, 2019 11:00pm January 19, 2020 1:54pm Start: 2019 End: 01-19-2020 take 1 tablet by mouth once daily Tabrxozptjdb-Geekhxyg-Dkgndt (Cerovite Senior) tablet Discontinued 1 TABLET PO DAILY 2019 12:00am January 19, 2020 2:54pm omeprazole 20 mg delayed release oral capsule (20 sources) Proton Pump Inhibitor Start: 08-10-2018 End: 08-20-2018 take 1 capsule by mouth once daily Omeprazole 20 MG capsule Active 20 mg PO DAILY 30 3 August 20, 2018 5:34pm gerd Start: 06-25-2014 End: 10-31-2016 take 1 tablet by mouth once daily PRILOSEC 20 MG CPDR One tablet by mouth daily OMEPRAZOLE [id number] Tonie Kelly LPN Comment on above: Take 20 mg by mouth once daily. ondansetron 4 mg disintegrating oral tablet (20 sources) Serotonin-3 Receptor Antagonist Start: 01-26-20 take 1 tablet by mouth every eight hours as needed ondansetron orally disintegrating (ZOFRAN ODT) 4 mg disintegrating tablet Dissolve 1 tablet on tongue every 8 hours as needed for nausea/vomiting. 30 tablet 1 01/26/2024 9:46 AM EST 01/26/2024 Active Start: 10-06-2023 End: 01-23-2024 take 1 tablet by mouth every eight hours as needed ondansetron orally disintegrating (ZOFRAN ODT) 4 mg disintegrating tablet Take 1 tablet by mouth every 8 hours as needed for nausea/vomiting. 30 tablet 1 10/06/2023 01/23/2024 Discontinued Start: 05-29-2022 End: 09-19-2023 take 1 tablet by mouth every eight hours as needed ondansetron (ZOFRAN) 4 mg tablet Take 1 tablet by mouth every 8 hours as needed. 10 tablet 0 05/29/2022 09/19/2023 Discontinued Comment on above: Take 1 tablet by oumar th every 8 hours as needed. Oyster shell (5 sources) Start: 10-18-2024 Oyster shell A ctive PO DAILY October 18, 2024 3:19pm Start: 10-06-2024 End: 10-18-2024 Oyster shell Discontinued PO October 06, 2024 12:00am October 18, 2024 3:23pm Start: 10-06-2024 Oyster shell A ctive PO October 06, 2024 12:00am OZEMPIC 1 mg/dose (4 mg/3 mL) pen (7 sources) Start: 06-21-2024 OZEMPIC 1 mg/d ose (4 mg/3 mL) pen 06/21/2024 Active pediatric multivitamin-iron (POLY--SLIM WITH IRON) 15 MG chewable tablet (1 source) Start: 02-09-2018 take 2 tablets by mouth once daily pediatric multivitamin-iron (POLY--SLIM WITH IRON) 15 MG chewable tablet Indications: supplement Take 2 tablets by mouth daily 60 tablet 3 02/09/2018 Active rimegepant 75 mg disintegrating oral tablet (20 sources) Start: 02-25-2022 End: 10-27-2024 take 1 tablet by mouth once as needed for headache Rimegepant (Nurtec Odt) 75 mg tablet,disintegra ting Active 75 mg PO ONCE as needed for migraine headache February 25, 2022 1:00am as a single dose Comment on above: TAKE 1 TABLET BY OUMAR TH DAILY NEEDED for onset OF migrainse, no more than 1 (ONE) dose in 24 hours DIRECTED FOR 30 DAYS Semaglutide (5 sources) Start: 07-05-2024 Semaglutide (Ozempic) 1 mg/dose (4 mg/3 mL) pen injector Active 1 mg SC EVERY WEEK July 05, 2024 12:00am therapeutic multivitamin-minerals (Theragran-M) tablet (6 sources) therapeutic multivitamin-mine rals (Theragran-M) tablet Take 2 tablets by mouth. 0 Active Tirzepatide (Mounjaro) 2.5 MG/0.5ML solution pen-injector (4 sources) Start: 05-21-2022 Tirzepatide (Mounjaro) 2.5 MG/0.5ML solution pen-injector Inject 2.5 mL under the skin 1 (one) time per week. 1.5 mL 2 05/21/2022 Active traMADol hydrochloride 50 mg oral tablet (3 sources) Opioid Agonist Start: 10-15-2022 End: 10-22-2022 take 1 tablet by mouth every six hours as needed for pain traMADol (ULTRAM) 50 mg tablet Indications: Status post shoulder surgery Take one tablet by mouth every 6 hours as needed for pain. 28 tablet 0 10/15/2022 10/22/2022 Active Start: 08-21-2022 End: 08-27-2022 take 1 tablet by mouth every six hours as needed for pain traMADol (ULTRAM) 50 mg tablet Indications: Status post shoulder surgery Take one tablet by mouth every 6 hours as needed for pain. 28 tablet 0 08/21/2022 08/27/2022 Active Start: 07-08-2022 End: 07-15-2022 take 1 tablet by mouth every six hours as needed for pain traMADol (ULTRAM) 50 mg tablet Indications: Status post shoulder surgery Take one tablet by mouth every 6 hours as needed for pain. 28 tablet 0 07/08/2022 07/15/2022 Active Comment on above: Take one tablet by m out every 6 hours as needed for pain. UNABLE TO FIND (4 sources) UNABLE TO FIND M ed Name: Nortec 75 mg 0 Active Vitamin B Complex (20 sources) Start: 12-31-2018 take 1 capsule by mouth twice daily Vitamin B Complex Active 1 CAP PO TWICE A DAY December 31, 2018 10:40am Start: 12-31-2018 take 1 capsule by [facility] twice daily Vitamin B Complex Active 1 CAP PO TWICE A DAY December 30, 2018 11:00pm Start: 12-31-2018 take 1 capsule by [facility] twice daily Vitamin B Complex Active 1 CAP PO TWICE A DAY December 31, 2018 12:00am End: 09-19-2023 vitamin B complex (B COMPLEX 1 ORAL) Take by mouth twice daily. 09/19/2023 Discontinued End: 09-19-2023 vitamin B complex (B COMPLEX 1 ORAL) Take by mouth twice daily. 0 09/19/2023 Discontinued vitamin B comple x (B COMPLEX 1 ORAL) Take by mouth twice daily. 0 Active Comment on above: Take by mouth twice daily. Vitamin B Complex tablet (3 sources) Start: 10-06-2024 Vitamin B Complex tablet Active 1 {tbl} PO TWICE A DAY October 06, 2024 12:00am Zinc (20 sources) Start: 03-22-2020 take 50 mg by mouth once daily Zinc Active 50 MG PO DAILY March 22, 2020 11:41am Start: 03-22-2020 take 1 tablet by oumar once daily Zinc 50 mg tablet Active 50 mg PO DAILY March 22, 2020 1:00am supplement Start: 03-22-2020 take 1 tablet by oumar th once daily Zinc 50 mg tablet Active 50 mg PO DAILY March 22, 2020 1:00am Start: 03-22-2020 take 50 mg by mouth once daily Zinc Active 50 MG PO DAILY March 22, 2020 12:00am Start: 03-22-2020 take 50 mg by mouth once daily Zinc Active 50 MG PO DAILY March 22, 2020 1:00am Start: 01-18-2019 take 1 tablet by oumar th once daily Zinc 50 MG TABS Take 1 tablet by mouth daily supplement 0 01/18/2019 Active take 1 tablet by oumar th once daily Zinc 50 mg tab Take 50 mg by mouth once daily. Active take 1 tablet by oumar th once daily Zinc 50 mg tab Take 50 mg by mouth once daily. 0 Active Zinc 50 mg tab T aminta by mouth. 0 Active Comment on above: Take by mouth. Take 50 mg by mouth once daily. zinc gluconate 50 mg oral tablet (7 sources) Start: 01-18-2019 take 1 tablet by mouth once daily Zinc 50 MG TABS Take 1 tablet by mouth daily supplement 0 01/18/2019 Active Completed/Discontinued Medications Medication Drug Class(es) Dates Sig (Normalized) Sig (Original) acetaminophen 500 mg oral tablet (20 sources) Start: 10-06-2023 End: 10-06-2023 acetaminophen 1,000 mg tab(s) (TYLENOL) Start: 08-20-2018 End: 07-07-2019 take 1000 mg by mouth every eight hours Acetaminophen Discontinued 1000 MG PO EVERY 8 HOURS 180 August 19, 2018 11:00pm July 07, 2019 9:20am Start: 08-10-2018 End: 07-07-2019 take 2 tablets by mouth every eight hours Acetaminophen 500 MG tablet Discontinued 1000 mg PO EVERY 8 HOURS 180 1 August 20, 2018 12:00am July 07, 2019 10:20am take 2 tablets by mo uth every six hours as needed acetaminophen (TYLENOL) 325 mg tablet Take 650 mg by mouth every 6 hours as needed. Active Comment on above: Take 650 mg by mouth every 6 hours as needed. 200 actuat albuterol 0.09 mg/actuat metered dose inhaler (2 sources) beta2-Adrenergic Agonist Start: 09-10-2010 End: 06-27-2014 PROAIR HFA 108 (90 Base) MCG/ACT AERS As needed ALBUTEROL SULFATE [id number] Anastasiya Mcmahon alogliptin 25 mg oral tablet (20 sources) Start: 09-08-2018 End: 07-07-2019 take 1 tablet by mouth once daily Alogliptin 25 mg tablet Discontinued 25 mg PO DAILY September 08, 2018 12:00am July 07, 2019 10:21am Start: 01-31-2017 End: 08-20-2018 take 1 tablet by mouth once daily Alogliptin 25 mg tablet Discontinued 25 mg PO DAILY September 25, 2017 11:14am August 20, 2018 5:23pm DM amoxicillin 500 mg oral tablet (2 sources) Penicillin-class Antibacterial Start: 08-29-2015 End: 07-15-2016 take 1 tablet by mouth four times daily AMOXICILLIN 500 MG TABS One tablet by mouth four times daily AMOXICILLIN [id number] Silvio Batista MD apixaban 5 mg oral tablet (20 sources) Factor Xa Inhibitor Start: 03-15-2021 End: 02-25-2022 take 1 tablet by mouth twice daily Apixaban (Eliquis) 5 mg tablet Discontinued 5 mg PO TWICE A DAY 180 3 March 26, 2021 1:00am February 25, 2022 9:12am for DVT Start: 02-16-2021 End: 03-26-2021 take 2 tablets by mouth twice daily, then take 1 tablet by mouth twice daily Apixaban (Eliquis Dvt-Pe Treat 30d Start) 5 mg (74 tabs) tablets,dose pack Discontinued 5 mg PO TWICE A DAY 74 0 February 16, 2021 1:00am March 26, 2021 3:25pm 10 mg p.o. twice daily for the first week and then 5 mg p.o. twice daily Comment on above: Take 5 mg by mouth t wice daily. aspirin 325 mg oral tablet (20 sources) Nonsteroidal Anti-inflammatory Drug Start: 11-07-2017 End: 01-12-2018 take 1 tablet by mouth once daily Aspirin 325 mg tablet Discontinued 325 mg PO DAILY November 07, 2017 12:00am January 12, 2018 5:15pm Start: 01-31-2017 End: 11-07-2017 take 1 tablet by mouth once daily Aspirin 81 MG tablet,delayed release (DR/EC) Discontinued 81 mg PO DAILY January 31, 2017 1:00am November 07, 2017 10:01am Start: 06-27-2014 take 1 tablet by oumar th once daily ASPIRIN 81 MG TABS One tablet by mouth daily ASPIRIN [id number] Silvio Batista MD Start: 09-10-2010 End: 06-27-2014 take 1 tablet by mouth once daily ASPIRIN 325 MG TABS One tablet by mouth daily ASPIRIN [id number] Silvio Batista MD take 1 tablet by oumar th once daily aspirin 81 mg chewable tablet Take 81 mg by mouth once daily. Active Comment on above: Take 81 mg by mouth once daily. atorvastatin 40 mg oral tablet (20 sources) HMG-CoA Reductase Inhibitor Start : 08-20 End: 03-27 take 1 tablet by mouth at bedtime Atorvastatin 40 MG tablet Discontinued 40 mg PO AT BEDTIME October 18, 2020 9:19am March 27, 2022 3:35pm cholesterol Comment on above: Take 40 mg by mouth once daily. benzonatate 100 mg oral capsule (14 sources) Non-narcotic Antitussive Start : 11-27 End: 02-25 take 1 capsule by mouth three times daily as needed for cough Benzonatate 100 mg capsule Discontinued 100 mg PO 3 TIMES DAILY NEEDED as needed for Cough 20 0 November 27, 2021 12:00am February 25, 2022 9:13am betamethasone 3 mg/ml / betamethasone acetate 3 mg/ml injectable suspension (2 sources) Corticosteroid Start : 08-23 End: 08-23 betamethasone acetate-betamethaso ne sodium phosphate 6 mg injection (CELESTONE) onabotulinumtoxina 100 unt injection (6 sources) Acetylcholine Release Inhibitor Start : 11-03 End: 11-03 inject 1 dose by intramuscular injection every 30 days 200 Units, INTRAMUSCULAR, ONCE (UP TO 30 DAYS AMB), 1 dose, On Fri11/03/24 at 1330, This record documents the total dose provided to patient. See progress note for specific locations and amounts administered. REFRIGERATE - Pharmaceutical Waste: Lab Pack - Start: 11-03-2024 End: 11-03-2024 onabotulinum toxin type A 20 0 Units injection (BOTOX) Start: 06-24-2024 End: 06-24-2024 onabotulinum toxin type A 20 0 Units injection (BOTOX) Start: 06-24-2024 End: 06-24-2024 inject 1 dose by intramuscular injection once 200 Units, INTRAMUSCULAR, ONCE, 1 dose, On Pooja 06/24/24 at 1330, This record documents the total dose provided to patient. See progress note for specific locations and amounts administered. Start: 01-19-2024 End: 01-19-2024 onabotulinumtoxinA (Botox) i njection 155 Units Start: 01-19-2024 End: 01-19-2024 inject 155 [IU] by intramuscular injection once 155 Units, Intramuscular, Once, On 01/19/24 at 1345, For 1 dose, Charging context for this clinic-administered medication: Medically Necessary/Insurance 30 ml bupivacaine hydrochloride 2.5 mg/ml injection (2 sources) Amide Local Anesthetic Start: 10-17-2023 End: 10-17-2023 bupivacaine (PF) 0.25 % (2.5 mg/mL) 4 mL injection (SENSORCAINE MPF) calcium carbonate 1250 mg oral tablet (3 sources) Start: 10-06-2024 End: 10-18-2024 take 1 tablet by mouth once daily Calcium Carbonate 500 mg calcium (1,250 mg) tablet Discontinued 500 mg PO daily October 06, 2024 12:00am October 18, 2024 3:22pm calcium chloride 0.0014 meq/ml / potassium chloride 0.004 meq/ml / sodium chloride 0.103 meq/ml / sodium lactate 0.028 meq/ml injectable solution (2 sources) Start: 10-06-2023 End: 10-07-2023 lactated ringers iv infusion carbamide peroxide 65 mg/ml otic solution (12 sources) Start: 04-11-2022 End: 09-19-2023 EAR DROPS 6.5 % otic solution instill 5 (FIVE) drops TWICE DAILY bilateral ears for 4 days 0 04/11/2022 09/19/2023 Discontinued Comment on above: instill 5 (FIVE) deepthi ps TWICE DAILY bilateral ears for 4 days cefadroxil 500 mg oral capsule (17 sources) Cephalosporin Antibacterial Start: 07-27-2020 End: 08-10-2020 take 1 capsule by mouth twice daily Cefadroxil 500 mg capsule Discontinued 500 mg PO TWICE A DAY 28 14 0 July 27, 2020 12:00am August 09, 2020 12:00am August 10, 2020 12:01am citalopram 10 mg oral tablet (20 sources) Serotonin Reuptake Inhibitor Start: 07-30-2024 End: 10-18-2024 take 1 tablet by mouth once daily Citalopram (Celexa) 10 mg tablet Discontinued 10 mg PO DAILY July 30, 2024 12:00am October 18, 2024 3:20pm Start: 07-05-2024 take 1 tablet by oumar th once daily Citalopram 40 mg tablet Active 40 mg PO daily July 05, 2024 12:00am Start: 02-24-2022 citalopram (Ce Rich) 20 MG tablet Take 30 mg by mouth daily. 0 02/24/2022 Active Start: 05-14-2018 End: 07-05-2024 take 1 tablet by mouth once daily Citalopram (Celexa) 20 MG tablet Discontinued 20 mg PO DAILY October 18, 2020 9:19am July 05, 2024 1:33pm mood Start: 08-22-2014 take 1 tablet by oumar th once daily CITALOPRAM HYDROBROMIDE 20 MG TABS One tablet by mouth daily CITALOPRAM HYDROBROMIDE [id number] Mimi Ware RN Start: 09-10-2010 End: 06-27-2014 take 1 tablet by mouth once daily CELEXA 20 MG TABS One tablet by mouth daily CITALOPRAM HYDROBROMIDE [id number] Silvio Batista MD take 1 tablet by oumar th in the morning citalopram (CeleXA) 10 MG tablet Take 10 mg by mouth in the morning. Active Comment on above: Take 20 mg by mouth once daily. Take 30 mg by mouth once daily. clopidogrel 75 mg oral tablet (17 sources) [id number] Platelet Inhibitor Start: 02-01-20 End: 02-25-20 take 1 tablet by mouth once daily Clopidogrel 75 MG tablet Discontinued 75 mg PO DAILY January 31, 2017 1:00am February 24, 2017 5:20pm clotrimazole 10 mg/ml topical cream (17 sources) Azole Antifungal Start: 08-11-19 End: 08-21-19 Clotrimazole (Lotrimin Af) 12 GM Cream..G. Discontinued 1 APPLICATIO TP TWICE A DAY August 10, 2018 12:00am August 20, 2018 5:29pm fungus docusate sodium 100 mg oral capsule (20 sources) Start: 07-28-19 End: 07-31-19 take 1 capsule by mouth twice daily as needed for constipation Docusate Sodium (Dok) 100 mg capsule Discontinued 100 mg PO TWICE A DAY as needed for Constipation February 16, 2021 4:52pm July 30, 2024 8:18pm Start: 07-27-2020 End: 08-15-2020 take 0.1-2 capsules by mouth once daily as needed for constipation Docusate Sodium (Colace) 100 mg capsule Discontinued 100 mg PO .1-2 x/day as needed for constipation 30 15 0 July 31, 2020 2:29pm August 14, 2020 12:00am August 15, 2020 12:01am Comment on above: Take by mouth. Take 100 mg by mouth as needed. Take 1 capsule by [facility] twice daily. docusate sodium 50 mg / sennosides, retirement 8.6 mg oral tablet (17 sources) Start: 08-20-2018 End: 12-31-2018 Sennosides-Docusate Sodium 1 TABLET tablet Discontinued 2 {tbl} PO TWICE A DAY 0 August 20, 2018 12:00am December 31, 2018 10:44am Start: 08-20-2018 End: 12-31-2018 take 2 tablets by mouth twice daily Sennosides-Docusate Sodium Discontinued 2 TABLET PO TWICE A DAY August 19, 2018 11:00pm December 31, 2018 9:44am 0.5 ml dulaglutide 1.5 mg/ml auto-injector (20 sources) GLP-1 Receptor Agonist Start: 09-25-2022 End: 07-05-2024 Dulaglutide (Trulicity) 0.75 mg/0.5 mL pen injector Discontinued 0.75 mg SC EVERY WEEK September 25, 2022 12:00am July 05, 2024 1:32pm Start: 07-01-2022 End: 01-23-2024 inject 1.5 mg by subcutaneous injection every week dulaglutide (Trulicity) 1.5 MG/0.5ML solution pen-injector Inject 1.5 mg under the skin 1 (one) time per week. 4 pen 11 07/01/2022 Active 2 ml famotidine 10 mg/ml injection (1 source) Histamine-2 Receptor Antagonist Start: 10-06-2023 End: 10-06-2023 famotidine 20 mg injection (PEPCID) 1 ml fentaNYL 0.05 mg/ml injection (1 source) Opioid Agonist Start: 10-06-2023 End: 10-07-2023 fentaNYL 50 mcg/mL 50 mcg injection (SUBLIMAZE) fluconazole 200 mg oral tablet (17 sources) Azole Antifungal Start: 11-07-2017 End: 12-05-2017 take 1 tablet by mouth once daily Fluconazole 200 mg tablet Discontinued 200 mg PO DAILY November 07, 2017 12:00am December 05, 2017 2:18pm furosemide 40 mg oral tablet (20 sources) Loop Diuretic Start: 03-06-2018 End: 08-20-2018 take 1 tablet by mouth twice daily Furosemide 40 mg tablet Discontinued 40 mg PO TWICE A DAY 60 June 09, 2018 1:37pm June 29, 2018 11:49am Start: 07-29-2017 End: 01-30-2018 take 1 tablet by mouth twice daily Furosemide 40 mg tablet Discontinued 40 mg PO TWICE A DAY 60 July 29, 2017 12:00am January 30, 2018 10:19am Start: 02-11-2017 End: 06-29-2018 take 1 tablet by mouth once daily Furosemide 40 mg tablet Discontinued 40 mg PO DAILY January 30, 2018 10:16am March 06, 2018 4:36pm Start: 07-21-2014 End: 07-29-2017 take 2 tablets by mouth twice daily Furosemide 20 MG tablet Discontinued 40 mg PO TWICE A DAY July 21, 2014 12:00am July 29, 2017 10:04am Start: 07-21-2014 End: 07-29-2017 take 40 mg by mouth twice daily Furosemide Discontinue d 40 MG PO TWICE A DAY July 20, 2014 11:00pm July 29, 2017 9:04am Start: 09-10-2010 take 1 tablet by oumar once daily LASIX 20 MG TABS One tablet by mouth daily FUROSEMIDE [id number] Anastasiya Mcmahon Start: 09-10-2010 take 1 tablet by oumar th twice daily LASIX 40 MG TABS One tablet by mouth twice daily FUROSEMIDE [id number] Ezra Braxton ELECTROSTATIC PAINTER-C Start: 09-10-2010 take 1 tablet by oumar th once daily LASIX 40 MG TABS One tablet by mouth daily FUROSEMIDE [id number] Silvio Batista MD GLUCOSE BLOOD (1 source) Start: 01-09-2017 FREESTYLE LITE TEST STRP use with device up to 4 times daily to test bg GLUCOSE BLOOD [id number] Ashtyn Reyes NP hydroCHLOROthiazide 12.5 mg oral tablet (2 sources) Thiazide Diuretic Start: 11-07-2010 End: 06-27-2014 take 1 tablet by mouth once daily HYDROCHLOROTHIAZIDE 12.5 MG TABS One tablet by mouth daily HYDROCHLOROTHIAZIDE [id number] Silvio Batista MD hydroCHLOROthiazide 12.5 mg / losartan potassium 50 mg oral tablet (19 sources) Thiazide Diuretic, Angiotensin 2 Receptor Freedom Start: 06-29-2018 End: 06-29-2018 Losartan-Hydrochlorothi azide 50-12.5 mg tablet Discontinued 1 {tbl} PO DAILY June 29, 2018 12:00am June 29, 2018 12:06pm Start: 06-29-2018 End: 06-29-2018 take 1 tablet by mouth once daily Losartan-Hydrochlorothiazide Discontinue d 1 TABLET PO DAILY June 28, 2018 11:00pm June 29, 2018 11:06am Start: 09-10-2010 End: 06-27-2014 HYZAAR 100-12.5 MG TABS 1/2 tablet 2 X daily LOSARTAN POTASSIUM-HCTZ [id number] Anastasiya Mcmahon hydrOXYzine hydrochloride 25 mg oral tablet (17 sources) Antihistamine Start: 08-02-2018 End: 08-20-2018 take 1 tablet by mouth once daily as needed for anxiety Hydroxyzine Hcl 25 MG tablet Discontinued 25 mg PO DAILY as needed for Anxiety August 02, 2018 12:00am August 20, 2018 5:24pm 3 ml insulin degludec 100 unt/ml pen injector (20 sources) Insulin Analogue Start: 02-24-2017 End: 01-30-2018 Insulin Degludec (Tresiba Flextouch U-100) 100 unit/mL (3 mL) insulin pen Discontinued 52 U SC TWICE A DAY 15 June 30, 2017 1:29pm June 30, 2017 2:16pm Type 2 diabetes mellitus without complications Start: 01-31-2017 End: 02-24-2017 Insulin Degludec 100 UNIT/ML insulin pen Discontinued 52 U SQ DAILY January 31, 2017 1:00am February 24, 2017 4:27pm Start: 01-31-2017 End: 02-24-2017 Insulin Degludec 100 UNIT/ML insulin pen Discontinued 52 U SQ AT BEDTIME January 31, 2017 1:00am February 24, 2017 4:28pm Start: 01-01-2017 TRESIBA FLEXTO UCH 100 UNIT/ML SOPN 52 U q am and 52 U q pm INSULIN DEGLUDEC [id number] Ashtyn Reyes BUTTON BREAKER TRESIBA FLEXTOUC H 100 UNIT/ML SOPN 50 U q am and 50 U q pm INSULIN DEGLUDEC [id number] Tonie Kelly LPN insulin detemir 100 unt/ml injectable solution (2 sources) Insulin Analogue Start: 09-10-2010 End: 06-27-2014 LEVEMIR 100 UNIT/ML SOLN Take as directed INSULIN DETEMIR [id number] Silvio Batista MD insulin glargine 100 unt/ml injectable solution (3 sources) Insulin Analogue Start: 06-27-2014 LANTUS 100 UN IT/ML SOLN as directed INSULIN GLARGINE [id number] Silvio Batista MD End: 10-31-2016 LANTUS 100 UNIT/ML SOLN Use 50 units in the AM and 50 units in the PM INSULIN GLARGINE [id number] Ashtyn Reyes NP INSULIN LISPRO (HUMAN) SOLN (2 sources) Insulin Analogue Start: 09-10-2010 End: 06-27-2014 HUMALOG SOLN Take as directed INSULIN LISPRO (HUMAN) SOLN [id number] Silvio Batista MD Start: 09-10-2010 HUMALOG SOLN T aminta as directed INSULIN LISPRO (HUMAN) SOLN [id number] Anastasiya Mcmahon 3 ml insulin aspart, human 100 unt/ml pen injector (20 sources) Insulin Analogue Start: 08-07-2017 End: 01-30-2018 Insulin Aspart U-100 (Novolog Flexpen U-100 Insulin) 100 unit/mL insulin pen Discontinued 26 U SC TWICE A DAY August 07, 2017 12:57pm January 30, 2018 10:04am Type 2 diabetes mellitus with other specified complication Start: 02-24-2017 End: 02-24-2017 Insulin Aspart U-100 (Novolo g U-100 Insulin Aspart) 100 unit/mL solution Discontinued 25 U SC THREE TIMES A DAY February 24, 2017 1:00am February 24, 2017 6:28pm Type 2 diabetes mellitus without complications Start: 07-21-2014 End: 08-07-2017 Insulin Aspart U-100 (Novolo g Flexpen U-100 Insulin) 100 unit/mL insulin pen Discontinued 25 U SC THREE TIMES A DAY 13 02February 24, 2017 1:00am August 07, 2017 12:58pm Type 2 diabetes mellitus with other specified complication administer within 5-10 min before a meal/food and no later than at the start of the meal/snack Start: 07-21-2014 End: 02-24-2017 Insulin Aspart U-100 100 UNI TS/ML insulin pen Discontinued 25 U SC 3 TIMES DAILY WITH MEALS July 21, 2014 12:00am February 24, 2017 4:27pm Start: 06-27-2014 NOVOLOG 100 UN IT/ML SOLN as directed INSULIN ASPART [id number] Silvio Batista MD NOVOLOG 100 UNIT /ML SOLBull Use 25 units with each meal. INSULIN ASPART [id number] Ashtyn Reyes BUTTON BREAKER 24 hr isosorbide mononitrate 30 mg extended release oral tablet (2 sources) Start: 09-10-2010 End: 07-26-2014 take 1 tablet by mouth once daily ISOSORBIDE MONONITRATE ER 30 MG [id number] One tablet by mouth daily (Imdur) ISOSORBIDE MONONITRATE [id number] Mimi Ware RN levothyroxine sodium 0.1 mg oral tablet (20 sources) l-Thyroxine Start: 09-25-2017 End: 10-18-2020 take 1 tablet by mouth at bedtime Levothyroxine 100 mcg tablet Discontinued 100 ug PO AT BEDTIME 30 December 30, 2017 7:51am August 10, 2018 12:55pm Comment on above: Take 100 mcg by mout h daily before breakfast. 10 ml lidocaine hydrochloride 10 mg/ml injection (2 sources) Antiarrhythmic, Amide Local Anesthetic Start: 08-23-2021 End: 08-23-2021 lidocaine (PF) 10 mg/mL (1 %) 4 mL injection (XYLOCAINE) linagliptin 5 mg oral tablet (17 sources) Dipeptidyl Peptidase 4 Inhibitor Start: 08-20-2018 End: 09-08-2018 take 1 tablet by mouth once daily Linagliptin 5 MG tablet Discontinued 5 mg PO DAILY 0 August 20, 2018 12:00am September 08, 2018 10:40am losartan potassium 25 mg oral tablet (20 sources) Angiotensin 2 Receptor Freedom Start: 09-08-2018 End: 07-07-2019 Losartan 25 mg tablet Discontinued 12.5 mg PO DAILY 30 December 31, 2018 11:02am July 07, 2019 10:20am Start: 09-08-2018 End: 07-07-2019 take 12.5 mg by mouth once daily Losartan Discontinued 12.5 MG PO DAILY December 31, 2018 10:02am July 07, 2019 9:20am Start: 09-02-2018 End: 09-08-2018 take 1 tablet by mouth once daily Losartan 25 mg tablet Discontinued 25 mg PO DAILY 30 September 02, 2018 12:00am September 08, 2018 10:57am Start: 06-29-2018 End: 08-20-2018 take 1 tablet by mouth once daily Losartan 50 MG tablet Discontinued 50 mg PO DAILY August 10, 2018 12:55pm August 20, 2018 5:29pm bp Start: 03-13-2018 End: 06-29-2018 take 1 tablet by mouth once daily Losartan 25 mg tablet Discontinued 25 mg PO DAILY 30 March 13, 2018 12:28pm June 29, 2018 11:47am Start: 01-30-2018 End: 03-13-2018 take 1 tablet by mouth once daily Losartan 50 mg tablet Discontinued 50 mg PO DAILY 30 January 30, 2018 10:20am March 13, 2018 12:28pm Start: 10-31-2017 End: 01-30-2018 take 1 tablet by mouth once daily Losartan 25 MG tablet Discontinued 25 mg PO DAILY October 31, 2017 12:00am January 30, 2018 10:28am take 0.5 tablet by m outh once daily losartan (COZAAR) 25 MG tablet Indications: 1/2 TABLET DAILY Take 25 mg by mouth daily Indications: 1/2 TABLET DAILY 0 Active magnesium citrate 58.2 mg/ml oral solution (17 sources) Start: 10-31-2017 End: 11-07-2017 take 1 mL by mouth once Magnesium Citrate 300 ML solution Discontinued 300 mL PO ONE TIME 1 0 October 31, 2017 12:00am November 07, 2017 10:03am Start: 10-31-2017 End: 11-07-2017 take 1 mL by mouth once Magnesium Citrate Discontinu ed 300 ML PO ONE TIME 1 October 30, 2017 11:00pm November 07, 2017 9:03am meclizine hydrochloride 25 mg oral tablet (17 sources) Antiemetic Start: 08-10-2018 End: 08-20-2018 take 1 tablet by mouth three times daily as needed for dizziness Meclizine 25 MG tablet Discontinued 25 mg PO 3 TIMES DAILY NEEDED as needed for Dizziness August 10, 2018 12:00am August 20, 2018 5:25pm menthol 0.025 mg/mg topical gel (17 sources) Start: 08-10-2018 End: 08-20-2018 Menthol (Bengay Vanishing Scent) 1 APPLIC Tube Discontinued 1 NMA TOPICAL THREE TIMES A DAY as needed for Pain August 10, 2018 12:00am August 20, 2018 5:25pm Start: 08-10-2018 End: 08-20-2018 Menthol (Bengay Vanishing Sc ent) 1 APPLIC Tube Discontinued 1 APPLIC TOPICAL THREE TIMES A DAY August 09, 2018 11:00pm August 20, 2018 4:25pm Meperidine (1 source) Opioid Agonist Start: 10-06-2023 End: 10-07-2023 meperidine (PF) 12.5 mg injection (DEMEROL) 24 hr metFORMIN hydrochloride 500 mg extended release oral tablet (20 sources) Biguanide Start: 10-18-2024 End: 10-18-2024 take 1 tablet by mouth once daily Metformin 500 mg tablet extended release 24 hr Discontinued 500 mg PO daily October 18, 2024 12:00am October 18, 2024 3:31pm Start: 09-26-2021 End: 07-05-2024 take 1 tablet by mouth once daily Metformin 500 mg tablet Discontinued 500 mg PO DAILY September 26, 2021 12:00am July 05, 2024 1:34pm Start: 07-02-2021 End: 09-19-2023 take 1 tablet by mouth once daily metFORMIN XR (Glucophage-XR) 500 MG 24 hr tablet take 1 tablets by mouth once daily 0 01/02/2022 Active Start: 01-31-2017 End: 01-30-2018 take 1 tablet by mouth once daily Metformin 500 MG tablet Discontinued 500 mg PO DAILY January 31, 2017 1:00am January 30, 2018 10:05am METFORMIN HCL ER 500 MG [id number] qd METFORMIN HCL [id number] Tonie Kelly LPN Comment on above: Take 500 mg by mouth once daily. metoprolol tartrate 25 mg oral tablet (20 sources) beta-Adrenergic Freedom Start: 08-11-2018 End: 09-02-2018 Metoprolol Tartrate 25 MG tablet Discontinued 12.5 mg PO TWICE A DAY 15 August 20, 2018 12:00am September 02, 2018 10:47am Start: 08-11-2018 End: 09-02-2018 take 12.5 mg by mouth twice daily Metoprolol Tartrate Discontinued 12.5 MG PO TWICE A DAY August 19, 2018 11:00pm September 02, 2018 9:47am Start: 08-10-2018 End: 08-11-2018 take 1 tablet by mouth twice daily Metoprolol Tartrate 25 MG tablet Discontinued 25 mg PO TWICE A DAY August 10, 2018 12:00am August 11, 2018 6:09pm bp Start: 05-14-2018 End: 05-14-2018 Metoprolol Tartrate 25 mg ta blet Discontinued 12.5 mg PO TWICE A DAY May 14, 2018 12:40pm May 14, 2018 12:47pm Start: 05-14-2018 End: 05-14-2018 take 12.5 mg by mouth twice daily Metoprolol Tartrate Discontinued 12.5 MG PO TWICE A DAY May 14, 2018 11:40am May 14, 2018 11:47am Start: 01-30-2018 End: 05-14-2018 take 1 tablet by mouth twice daily Metoprolol Tartrate 25 mg tablet Discontinued 25 mg PO TWICE A DAY 60 January 30, 2018 1:00am May 14, 2018 12:41pm Start: 09-10-2010 End: 06-27-2014 take 1 tablet by mouth twice daily METOPROLOL TARTRATE 25 MG TABS One tablet by mouth twice daily METOPROLOL TARTRATE [id number] Anastasiya Mcmahon 5 ml midazolam 1 mg/ml injection (1 source) Benzodiazepine Start: 10-06-2023 End: 10-06-2023 midazolam (PF) 1-2 mg injection (VERSED) MULTIPLE VITAMIN (1 source) Start: 08-29-2015 take 1 tablet by mouth once daily MULTIVITAMINS TABS One tablet by mouth daily MULTIPLE VITAMIN Silvio Batista MD multivit with minerals/lutein (CEROVITE SENIOR ORAL) (20 sources) End: 01-23-2024 multivit with minerals/lutein (CEROVITE SENIOR ORAL) Take by mouth. 01/23/2024 Discontinued multivit with mi nerals/lutein (CEROVITE SENIOR ORAL) Take by mouth. Active multivit with mi nerals/lutein (CEROVITE SENIOR ORAL) Take by mouth. 0 Active Comment on above: Take by mouth. Multivitamin (Tab-A-Kandis) 1 EACH tablet (17 sources) Start: 08-10-2018 End: 08-20-2018 take 1 tablet by mouth once daily Multivitamin (Tab-A-Kandis) 1 EACH tablet Discontinued 1 EACH PO DAILY August 10, 2018 1:02pm August 20, 2018 5:26pm Start: 08-10-2018 End: 08-20-2018 take 1 tablet by mouth once daily Multivitamin (Tab-A-Kandis) 1 EACH tablet Discontinued 1 NMA PO DAILY August 10, 2018 12:00am August 20, 2018 5:26pm supp Start: 08-10-2018 End: 08-20-2018 take 1 tablet by mouth once daily Multivitamin (Tab-A-Kandis) 1 EACH tablet Discontinued 1 NMA PO DAILY August 10, 2018 12:00am August 20, 2018 5:26pm Start: 08-10-2018 End: 08-20-2018 take 1 tablet by mouth once daily Multivitamin (Tab-A-Kandis) 1 EACH tablet Discontinued 1 EACH PO DAILY August 09, 2018 11:00pm August 20, 2018 4:26pm Start: 08-10-2018 End: 08-20-2018 take 1 tablet by mouth once daily Multivitamin (Tab-A-Kandis) 1 EACH tablet Discontinued 1 EACH PO DAILY August 10, 2018 12:00am August 20, 2018 5:26pm Multivitamin 1 EACH tablet (8 sources) Start: 01-31-2017 End: 01-30-2018 Multivitamin 1 EACH tablet Discontinued 1 NMA PO DAILY January 31, 2017 1:00am January 30, 2018 10:04am Multivitamin preparation (9 sources) Start: 01-31-2017 End: 01-30-2018 Multivitamin Discontinued 1 EACH PO DAILY January 31, 2017 4:47pm January 30, 2018 10:04am Start: 01-31-2017 End: 01-30-2018 Multivitamin Discontinued 1 EACH PO DAILY January 31, 2017 12:00am January 30, 2018 9:04am Start: 01-31-2017 End: 01-30-2018 Multivitamin Discontinued 1 EACH PO DAILY January 31, 2017 1:00am January 30, 2018 10:04am Multivitamin With Folic Acid (18 sources) Start: 10-18-2020 End: 03-29-2021 take 1 tablet by mouth once daily Multivitamin With Folic Acid Discontinued 1 TABLET PO DAILY@0800 October 18, 2020 8:19am March 29, 2021 1:51pm Start: 10-18-2020 End: 03-29-2021 take 1 tablet by mouth once daily Multivitamin With Folic Acid Discontinued 1 TABLET PO DAILY@0800 October 18, 2020 9:19am March 29, 2021 2:51pm Start: 08-20-2018 End: 10-18-2020 take 1 tablet by mouth once daily Multivitamin With Folic Acid Discontinued 1 TABLET PO DAILY@0800 30 August 20, 2018 5:22pm October 18, 2020 9:20am Start: 08-20-2018 End: 10-18-2020 take 1 tablet by mouth once daily Multivitamin With Folic Acid Discontinued 1 TABLET PO DAILY@0800 30 August 19, 2018 11:00pm October 18, 2020 8:20am Start: 08-20-2018 End: 10-18-2020 take 1 tablet by mouth once daily Multivitamin With Folic Acid Discontinued 1 TABLET PO DAILY@0800 30 August 20, 2018 12:00am October 18, 2020 9:20am Multivitamin With Folic Acid 1 TABLET tablet (16 sources) Start: 10-18-2020 End: 03-29-2021 take 1 tablet by mouth once daily Multivitamin With Folic Acid 1 TABLET tablet Discontinued 1 {tbl} PO DAILY@0800 October 18, 2020 9:19am March 29, 2021 2:51pm supplement Start: 10-18-2020 End: 03-29-2021 take 1 tablet by mouth once daily Multivitamin With Folic Acid 1 TABLET tablet Discontinued 1 {tbl} PO DAILY@0800 October 18, 2020 9:19am March 29, 2021 2:51pm Start: 08-20-2018 End: 10-18-2020 take 1 tablet by mouth once daily Multivitamin With Folic Acid 1 TABLET tablet Discontinued 1 {tbl} PO DAILY@0800 30 1 August 20, 2018 12:00am October 18, 2020 9:20am Start: 08-20-2018 End: 10-18-2020 take 1 tablet by mouth once daily Multivitamin With Folic Acid 1 TABLET tablet Discontinued 1 {tbl} PO DAILY@0800 30 August 20, 2018 12:00am October 18, 2020 9:20am mupirocin 20 mg/ml topical cream (1 source) RNA Synthetase Inhibitor Antibacterial BACTROBAN 2 % CREA apply q d MUPIROCIN CALCIUM [id number] Tonie Kelly LPN niacin 500 mg extended release oral tablet (2 sources) Nicotinic Acid Start: 1 End: 5 take 1 tablet by mouth once daily NIASPAN 500 MG CR-TABS One tablet by mouth daily NIACIN (ANTIHYPERLIPIDEMIC) [id number] Anastasiya Mcmahon Nirmatrelvir-Riton avir (14 sources) Start: 2 End: 2 Nirmatrelvir-Ritonavi r (Paxlovid (Eua)) 300 mg (150 mg x 2)-100 mg tablets,dose pack Discontinued 0 PO .COMPLEX 30 0 November 27, 2021 12:00am February 25, 2022 9:12am take TWO 150 mg tablets of nirmatrelvir with ONE 100 mg tablet of ritonavir twice daily for 5 days Start: 11-27-2021 End: 02-25-2022 Nirmatrelvir-Ritonavir (Paxl ovid (Eua)) 300 mg (150 mg x 2)-100 mg tablets,dose pack Discontinued 0 PO .COMPLEX November 27, 2021 12:00am February 25, 2022 9:12am take TWO 150 mg tablets of nirmatrelvir with ONE 100 mg tablet of ritonavir twice daily for 5 days Start: 11-27-2021 End: 02-25-2022 Nirmatrelvir-Ritonavir (Paxl ovid (Eua)) 300 mg (150 mg x 2)-100 mg tablets,dose pack Discontinued 0 PO .COMPLEX November 26, 2021 11:00pm February 25, 2022 8:12am take TWO 150 mg tablets of nirmatrelvir with ONE 100 mg tablet of ritonavir twice daily for 5 days Start: 11-27-2021 Nirmatrelvir-R itonavir (Paxlovid (Eua)) 300 mg (150 mg x 2)- 100 mg tablets,dose pack Active 0 PO .COMPLEX November 27, 2021 12:00am take TWO 150 mg tablets of nirmatrelvir with ONE 100 mg tablet of ritonavir twice daily for 5 days 24 hr nitroglycerin 0.4 mg/hr transdermal system (3 sources) Nitrate Vasodilator Start: 09-10-2010 End: 06-27-2014 NITROGLYCERIN 0.4 MG/HR PT24 1 tablet under tongue every 5 min up to 3 X NITROGLYCERIN [id number] Silvio Batista MD NITROSTAT 0.4 MG SUBL prn NITROGLYCERIN [id number] Tonie Kelly LPN oxyCODONE hydrochloride 5 mg oral tablet (18 sources) Opioid Agonist Start: 10-06-2023 End: 10-07-2023 oxyCODONE IR 5 mg tab(s) (ROXICODONE) Start: 08-10-2018 End: 08-20-2018 take 1 tablet by mouth every six hours as needed for pain Oxycodone 5 MG tablet Discontinued 5 mg PO EVERY 6 HOURS NEEDED as needed for Pain August 10, 2018 12:00am August 20, 2018 5:30pm Pedi Multivit 713-[id number] K1 (Cerovite Jr) 18 mg iron- 10 mcg Tablet,Chewable (17 sources) Start: 02-16-2021 End: 03-29-2021 take 1 tablet by mouth once daily Pedi Multivit 464-Pjrd-Olj K1 (Cerovite Jr) 18 mg iron- 10 mcg Tablet,Chewable Discontinued 1 TABLET PO DAILY February 16, 2021 4:48pm March 29, 2021 2:50pm Start: 02-16-2021 End: 03-29-2021 Pedi Multivit 500-Oypp-Pyb K 1 (Cerovite Jr) 18 mg iron- 10 mcg Tablet,Chewable Discontinued 1 {tbl} PO DAILY February 16, 2021 1:00am March 29, 2021 2:50pm Start: 02-16-2021 End: 03-29-2021 take 1 tablet by mouth once daily Pedi Multivit 136-Evqz-Imv K1 (Cerovite Jr) 18 mg iron- 10 mcg Tablet,Chewable Discontinued 1 TABLET PO DAILY February 16, 2021 12:00am March 29, 2021 1:50pm Start: 02-16-2021 End: 03-29-2021 take 1 tablet by mouth once daily Pedi Multivit 901-Sydg-Fjy K1 (Cerovite Jr) 18 mg iron- 10 mcg Tablet,Chewable Discontinued 1 TABLET PO DAILY February 16, 2021 1:00am March 29, 2021 2:50pm microencapsulated potassium chloride 20 meq extended release oral tablet (20 sources) Start: 08-10-2018 End: 08-20-2018 take 1 tablet by mouth once daily Potassium Chloride 20 MEQ tablet Discontinued 20 meq PO DAILY August 10, 2018 12:00am August 20, 2018 5:29pm supp Start: 02-25-2018 take 1 tablet by oumar twice daily potassium chloride (KLOR-CON M) 20 MEQ extended release tablet Take 1 tablet by mouth 2 times daily 60 tablet 11 02/25/2018 Active Start: 01-31-2017 End: 06-08-2018 take 1 tablet by mouth once daily Potassium Chloride 20 mEq tablet,ER particles/crystals Discontinued 20 meq PO DAILY 30 June 04, 2017 8:25am June 08, 2018 4:56pm Start: 09-10-2010 take 1 tablet by oumar th once daily KLOR-CON M20 20 MEQ CR-TABS One tablet by mouth daily POTASSIUM CHLORIDE MANPREET CR [id number] Ezra Braxton [employer] prochlorperazine 5 mg/ml injectable solution (1 source) Phenothiazine Start: 10-06-2023 End: 10-07-2023 take 10 mg intravenously every six hours as needed prochlorperazine 10 mg injection (COMPAZINE) promethazine hydrochloride 12.5 mg oral tablet (1 source) Phenothiazine Start: 10-06-2023 End: 10-06-2023 promethazine 12.5 mg tab(s) (PHENERGAN) raNITIdine 150 mg oral tablet (20 sources) Histamine-2 Receptor Antagonist Start: 01-31-2017 End: 09-25-2017 take 1 tablet by mouth twice daily Ranitidine Hcl 150 mg tablet Discontinued 150 mg PO TWICE A DAY August 07, 2017 12:56pm September 25, 2017 11:16am REFLUX RANITIDINE HCL 1 50 MG CAPS bid RANITIDINE HCL [id number] Tonie Kelly LPN rOPINIRole 0.5 mg oral tablet (9 sources) Nonergot Dopamine Agonist Start: 03-18-2023 End: 07-04-2023 Ropinirole 0.5 mg tablet Discontinued 0.5 mg PO DAILY 60 1 March 18, 2023 1:00am July 04, 2023 12:50pm 1 tab 1-2 hours before bed, on 4th night july increase to 2 tabs rosuvastatin calcium 40 mg oral tablet (18 sources) HMG-CoA Reductase Inhibitor Start: 01-31-2017 End: 08-20-2018 take 1 tablet by mouth once daily Rosuvastatin 40 MG tablet Discontinued 40 mg PO DAILY January 31, 2017 1:00am August 20, 2018 5:28pm cholesterol 0.25 mg, 0.5 mg dose 1.5 ml semaglutide 1.34 mg/ml pen injector (20 sources) Start: 03-21-2022 End: 02-09-2024 Semaglutide (Ozempic) 0.25 mg or 0.5 mg(2 mg/1.5 mL) pen injector Discontinued 0.25 mg SC EVERY WEEK March 27, 2022 1:00am September 25, 2022 1:59pm for 4 doses Comment on above: INJECT 0.25 MG UNDER THE SKIN EVERY WEEK sildenafil 50 mg oral tablet (2 sources) Phosphodiesterase 5 Inhibitor Start: 07-26-2014 End: 08-29-2015 VIAGRA 50 MG TABS Take as Directed, as needed SILDENAFIL CITRATE [id number] Silvio Batista MD simvastatin 80 mg oral tablet (1 source) HMG-CoA Reductase Inhibitor Start: 09-10-2010 take 1 tablet by mouth at bedtime SIMVASTATIN 80 MG TABS One tablet by mouth at bedtime. SIMVASTATIN [id number] Anastasiya Berenice Mcmahon thioctic acid 100 mg oral capsule (8 sources) End: 01-23-2024 take 1 capsule by mouth once daily alpha lipoic acid 100 mg cap Take 1 capsule by mouth once daily. 01/23/2024 Discontinued tiZANidine 4 mg oral capsule (20 sources) Central alpha-2 Adrenergic Agonist Start: 09-26-2021 End: 05-20-2022 take 1 capsule by mouth at bedtime as needed Tizanidine 4 mg capsule Discontinued 4 mg PO AT BEDTIME as needed September 26, 2021 12:00am February 25, 2022 9:15am take 1 tablet by oumar th every six hours as needed tiZANidine (ZANAFLEX) 4 MG tablet Take 4 mg by mouth every 6 hours as needed 0 Active Comment on above: Take 4 mg by mouth o nce daily as needed. topiramate 50 mg oral tablet (20 sources) Start: 06-18-2024 End: 10-18-2024 take 1 tablet by mouth twice daily Topiramate (Topamax) 50 mg tablet Discontinued 50 mg PO TWICE A DAY July 05, 2024 1:32pm October 18, 2024 3:21pm seizures Start: 01-02-2024 End: 10-12-2024 take 1 tablet by mouth twice daily Topiramate 100 mg tablet Active 100 mg PO TWICE A DAY July 05, 2024 12:00am Start: 10-18-2022 take 1 tablet by oumar th in the morning topiramate (Topamax) 100 MG tablet Indications: Chronic migraine without aura, intractable, without status migrainosus (CMS/HCC) Take 1 tablet (100 mg) by mouth in the morning and 1 tablet (100 mg) before bedtime. 180 tablet 1 10/18/2022 Active Start: 02-24-2022 take 1 tablet by oumar th twice daily topiramate (Topamax) 100 MG tablet Take 100 mg by mouth 2 times daily. 0 02/24/2022 Active Start: 04-06-2021 End: 07-05-2024 take 2 tablets by mouth twice daily Topiramate (Topamax) 50 mg tablet Discontinued 100 mg PO TWICE A DAY April 06, 2021 2:34pm July 05, 2024 1:34pm seizures Start: 03-22-2020 End: 04-06-2021 Topiramate (Topamax) 50 mg t ablet Discontinued 75 mg PO TWICE A DAY March 22, 2020 11:41am April 06, 2021 2:35pm seizures Start: 12-31-2018 End: 03-22-2020 take 1 tablet by mouth twice daily Topiramate 50 mg tablet Discontinued 50 mg PO TWICE A DAY December 31, 2018 12:00am March 22, 2020 11:42am Start: 08-20-2018 End: 12-31-2018 take 1 tablet by mouth twice daily Topiramate 25 MG tablet Discontinued 25 mg PO TWICE A DAY 60 3 August 20, 2018 12:00am December 31, 2018 10:41am End: 06-18-2024 take 3 tablets by mouth twice daily topiramate (TOPAMAX) 50 mg tablet Take 150 mg by mouth two times a day. 06/18/2024 Discontinued Comment on above: Take 50 mg by mouth twice daily. 1 ml triamcinolone acetonide 40 mg/ml injection (2 sources) Corticosteroid Start: 024 End: triamcinolone acetonide 80 mg injection (KeNALog 40) ursodiol 300 mg oral capsule (17 sources) Bile Acid Start: 018 End: 019 take 1 capsule by mouth twice daily Ursodiol 300 MG capsule Discontinued 300 mg PO TWICE A DAY February 16, 2018 1:00am May 14, 2018 12:04pm valsartan 80 mg oral tablet (1 source) Angiotensin 2 Receptor Freedom Start: 011 take 1 tablet by mouth once daily DIOVAN 80 MG TABS One tablet by mouth daily VALSARTAN [id number] Anastasiya Mcmahon vitamin b12 0.5 mg oral tablet (20 sources) Vitamin B12 Start: End: take 2 tablets by mouth once daily at mealtime Cyanocobalamin (Vitamin B-12) 500 MCG tablet Discontinued 1000 ug PO DAILY WITH MEALS 60 3 August 20, 2018 12:00am December 31, 2018 10:42am Start: 08-20-2018 End: 12-31-2018 take 1000 ug by mouth once daily at mealtime Cyanocobalamin (Vitamin B-12) Discontinued 1000 MCG PO DAILY WITH MEALS 60 August 19, 2018 11:00pm December 31, 2018 9:42am Start: 08-10-2018 End: 08-20-2018 take 1 tablet by mouth once daily Cyanocobalamin (Vitamin B-12) 1,000 MCG tablet Discontinued 1000 ug PO DAILY August 10, 2018 12:00am August 20, 2018 5:23pm supp Start: 07-28-2018 Cyanocobalamin (VITAMIN B-12) 500 MCG SUBL Indications: supplement Place 500 mcg under the tongue daily Indications: supplement 0 07/28/2018 Active take 1 tablet by oumar th once daily Cyanocobalamin (Vitamin B12) 1000 MCG tablet controlled-release Take 1 tablet by mouth 1 (one) time each day at the same time. Active Vitamin B Complex capsule (8 sources) Start: 12-31-2018 End: 10-06-2024 Vitamin B Complex capsule Discontinued 1 NMA PO TWICE A DAY December 31, 2018 12:00am October 06, 2024 2:05pm supplement Start: 12-31-2018 Vitamin B Comp marcellus capsule Active 1 NMA PO TWICE A DAY December 31, 2018 12:00am WHEAT DEXTRIN-VIT B6-B12-FA (1 source) BENEFIBER PLUS B VITS & FA TABS qd WHEAT DEXTRIN-VIT B6-B12-FA [id number] Tonie Kelly LPN Problems Active Problems Problem Classification Problem Date Documented Da te Episodic/Chronic Abdominal hernia (20 sources) Hiatal hernia; Translations: [Diaphragmatic hernia without obstruction or gangrene] Onset: 8 01-26-2018 Episodic Abdominal pain (20 sources) Epigastric pain; Translations: [Abdominal pain] Resolved: 8 02-24-2018 Episodic Acute and unspecified renal failure (6 sources) Acute injury of kidney; Translations: [Acute kidney injury] Onset: 8 02-24-2018 Acute cerebrovascular disease (20 sources) Hemorrhage into subdural space of neuraxis; Translations: [Nontraumatic subdural hemorrhage, unspecified] Onset: 9 08-08-2018 Chronic Anxiety disorders (20 sources) Mixed anxiety and depressive disorder; Translations: [Anxiety disorder, unspecified] Onset: 2 11-06-2021 Chronic Asthma (20 sources) Allergic asthma; Translations: [Unspecified asthma, uncomplicated] Chronic Cardiac dysrhythmias (20 sources) Bradycardia; Translations: [Bradycardia, unspecified] Episodic Conditions associated with dizziness or vertigo (20 sources) Dizziness and giddiness; Translations: [Dizziness] Onset: 1 Resolved: 6 09-10-2010 Episodic Coronary atherosclerosis and other heart disease (20 sources) Coronary atherosclerosis; Translations: [Coronary arteriosclerosis] Onset: 1 Resolved: 6 09-10-2010 Chronic Comment on above: Patient is status po st remote stenting of the proximal LAD in 2008. He had no significant disease in the circumflex or right coronary arteries at that time and normal LV function. Patient's secondary risk factors are being addressed. Diabetes mellitus with complications (20 sources) Type II diabetes mellitus uncontrolled; Translations: [Type 2 diabetes mellitus with hyperglycemia] Onset: 1 07-15-2016 Chronic Comment on above: Dx : [id number] exacer bation : DKA : never Hypoglycemic episode : never ER visit : never Diabetes mellitus without complication (20 sources) Type 2 diabetes mellitus; Translations: [Type 2 diabetes mellitus without complications] Onset: 1 Resolved: 9 07-15-2016 Chronic Comment on above: Patient type 2 diabe day is very well-controlled with hemoglobin A1c of 6.0 on blood work done April 2023. Disorders of lipid metabolism (20 sources) Hyperlipidemia; Translations: [Hypercholesterolemia] Onset: 1 09-10-2010 Chronic Comment on above: April 2023 his to alejandra cholesterol was 117, LDL 40, HDL 53, and triglycerides 121 this represents excellent control Esophageal disorders (20 sources) Gastro-esophageal reflux disease with esophagitis; Translations: [Lower esophageal ring] Onset: 8 01-26-2018 Chronic Essential hypertension (20 sources) Hypertensive disorder; Translations: [Essential hypertension] Onset: 1 09-10-2010 Chronic Comment on above: no meds for 3-4 yrs blood pressure in office today is 113/72 with a heart rate of 52. His heart rate routinely is in the 50 to 55 bpm range. Gastritis and duodenitis (20 sources) Superficial gastritis; Translations: [Gastritis] Onset: 8 08-12-2017 Episodic Headache; including migraine (20 sources) Migraine; Translations: [Migraine, unspecified, not intractable, without status migrainosus] Onset: 2 11-06-2021 Chronic Comment on above: on med Botox injections Lymphadenitis (17 sources) Lymphadenitis; Translations: [Nonspecific lymphadenitis, unspecified] 08-11-2018 Episodic Malaise and fatigue (20 sources) Fatigue; Translations: [Asthenia] Onset: 7 02-26-2017 Episodic Mood disorders (17 sources) Depressive disorder; Translations: [Depression] 01-17-2021 Chronic Nonmalignant breast conditions (20 sources) Gynecomastia; Translations: [Hypertrophy of breast] Episodic Nutritional deficiencies (20 sources) Vitamin D deficiency; Translations: [Vitamin D deficiency, unspecified] Onset: 9 08-08-2018 Chronic Other circulatory disease (14 sources) H/O: heart disorder; Translations: [Personal history of other diseases of the circulatory system] 12-05-2021 Episodic Other connective tissue disease (17 sources) Swelling of upper limb; Translations: [Other specified soft tissue disorders] 02-16-2021 Episodic Other connective tissue disease (17 sources) Pain in left arm; Translations: [Pain in left arm] 02-16-2021 Episodic Other connective tissue disease (9 sources) Pain in left arm; Translations: [Pain in limb] Episodic Other connective tissue disease (9 sources) Other specified soft tissue disorders; Translations: [Swelling of limb] Episodic Other connective tissue disease (14 sources) Adhesive capsulitis of right shoulder; Translations: [Adhesive capsulitis of right shoulder] Episodic Other connective tissue disease (6 sources) Adhesive capsulitis of left shoulder; Translations: [Adhesive capsulitis of left shoulder] Episodic Other connective tissue disease (3 sources) Impingement syndrome of right shoulder region; Translations: [Impingement syndrome of right shoulder] Episodic Other connective tissue disease (2 sources) Non-traumatic partial tear of left rotator cuff; Translations: [Incomplete rotator cuff tear or rupture of left shoulder, not specified as traumatic] Episodic Other connective tissue disease (3 sources) Bilateral hand weakness; Translations: [Other symptoms and signs involving the musculoskeletal system] Episodic Other connective tissue disease (1 source) Tendonitis of right shoulder; Translations: [Other enthesopathies, not elsewhere classified] Episodic Other connective tissue disease (1 source) Ischial bursitis ; Translations: [Other bursitis of hip, right hip] Episodic Other connective tissue disease (1 source) Adhesive capsulitis of left shoulder; Translations: [Adhesive capsulitis of left shoulder] Onset: 4 Episodic Other gastrointestinal disorders (20 sources) Intestinal malabsorption; Translations: [Intestinal malabsorption, unspecified] Onset: 8 02-02-2018 Chronic Other gastrointestinal disorders (2 sources) Malabsorption due to intolerance, not elsewhere classified; Translations: [Malabsorption due to intolerance, not elsewhere classified] Onset: 2 Chronic Other gastrointestinal disorders (2 sources) Intestinal malabsorption, unspecified; Translations: [Intestinal malabsorption, unspecified] Onset: 2 Chronic Other gastrointestinal disorders (20 sources) History of bypass of stomach; Translations: [Bariatric surgery status] Onset: 9 06-01-2018 Episodic Other gastrointestinal disorders (17 sources) History of bariatric surgical procedure; Translations: [Bariatric surgery status] 09-10-2021 Episodic Other gastrointestinal disorders (17 sources) Constipation; Translations: [Constipation, unspecified] 09-02-2018 Episodic Other hereditary and degenerative nervous system conditions (9 sources) Restless legs; Translations: [Restless legs syndrome] 02-24-2023 Chronic Other hereditary and degenerative nervous system conditions (1 source) Restless legs syndrome; Translations: [Restless legs syndrome (RLS)] 02-24-2023 Chronic Other inflammatory condition of skin (17 sources) Intertrigo; Translations: [Erythema intertrigo] 02-04-2020 Episodic Comment on above: abdominal wall skin crease intertrigo and inframammary intertrigo Other inflammatory condition of skin (11 sources) Erythema intertrigo; Translations: [Other specified erythematous conditions] Episodic Other injuries and conditions due to external causes (1 source) History of fall; Translations: [History of falling] Episodic Other injuries and conditions due to external causes (13 sources) Closed injury of head; Translations: [Unspecified injury of head, initial encounter] 04-14-2022 Episodic Other liver diseases (15 sources) Steatosis of liver; Translations: [Fatty (change of) liver, not elsewhere classified] Onset: 8 01-26-2018 Chronic Other lower respiratory disease (20 sources) Dyspnea on exertion; Translations: [Dyspnea, unspecified] Onset: 7 02-26-2017 Episodic Other lower respiratory disease (14 sources) Cough; Translations: [Cough] 12-05-2021 Episodic Other lower respiratory disease (1 source) Rib pain; Translations: [Pleurodynia] Episodic Other nervous system disorders (4 sources) Carpal tunnel syndrome of right wrist; Translations: [Carpal tunnel syndrome, right upper limb] Chronic Other nervous system disorders (20 sources) Carpal tunnel syndrome; Translations: [Carpal tunnel syndrome, unspecified upper limb] Onset: 2 11-06-2021 Chronic Other nervous system disorders (3 sources) Carpal tunnel syndrome of left wrist; Translations: [Carpal tunnel syndrome, left upper limb] Chronic Other nervous system disorders (17 sources) Acute postoperative pain; Translations: [Other acute postprocedural pain] 07-27-2020 Episodic Other nervous system disorders (2 sources) Other acute postprocedural pain; Translations: [Other acute postoperative pain] Episodic Other non-traumatic joint disorders (6 sources) Knee pain; Translations: [Joint pain, knee] 02-26-2017 Episodic Other non-traumatic joint disorders (3 sources) Shoulder pain; Translations: [Pain in right shoulder] Episodic Other non-traumatic joint disorders (6 sources) Chronic pain of right upper limb; Translations: [Pain in right shoulder] Episodic Other non-traumatic joint disorders (2 sources) Chronic pain of left upper limb; Translations: [Pain in left shoulder] Episodic Other non-traumatic joint disorders (1 source) Pain in right hip joint; Translations: [Pain in right hip] Episodic Other non-traumatic joint disorders (1 source) Bilateral shoulder joint stiffness; Translations: [Stiffness of right shoulder, not elsewhere classified] Episodic Other nutritional; endocrine; and metabolic disorders (1 source) Overweight; Translations: [Overweight] Onset: 7 08-06-2016 Chronic Other nutritional; endocrine; and metabolic disorders (15 sources) Morbid obesity; Translations: [Morbid (severe) obesity due to excess calories] Onset: 8 02-24-2018 Chronic Other nutritional; endocrine; and metabolic disorders (1 source) Hypervitaminosis D; Translations: [Vitamin D intoxication] Chronic Other nutritional; endocrine; and metabolic disorders (1 source) Body mass index 25-29 - overweight; Translations: [BMI 29.0-29.9,adult] Onset: 0 08-02-2019 Chronic Other nutritional; endocrine; and metabolic disorders (16 sources) Body mass index 30+ - obesity; Translations: [Obesity, unspecified] Onset: 0 02-22-2020 Chronic Other nutritional; endocrine; and metabolic disorders (17 sources) Excess panniculus of abdomen; Translations: [Localized adiposity] 02-04-2020 Chronic Other nutritional; endocrine; and metabolic disorders (20 sources) Obesity; Translations: [Obesity, unspecified] Onset: 9 03-08-2019 Chronic Other nutritional; endocrine; and metabolic disorders (9 sources) Obese class I; Translations: [Obesity, unspecified] Onset: 0 02-22-2020 Chronic Other nutritional; endocrine; and metabolic disorders (20 sources) Severe obesity; Translations: [Morbid (severe) obesity due to excess calories] Onset: 9 10-01-2018 Chronic Other nutritional; endocrine; and metabolic disorders (4 sources) Obesity, unspecified; Translations: [Obesity, unspecified] Onset: 2 Chronic Other nutritional; endocrine; and metabolic disorders (4 sources) Body mass index (BMI) 33.0-33.9, adult; Translations: [Body mass index [BMI] 33.0-33.9, adult] Onset: 2 Chronic Other nutritional; endocrine; and metabolic disorders (17 sources) Excessive weight loss; Translations: [Abnormal weight loss] 02-04-2020 Episodic Comment on above: 150 lbs after gastri c bypass surgery Other nutritional; endocrine; and metabolic disorders (13 sources) Abnormal weight loss; Translations: [Loss of weight] Episodic Other nutritional; endocrine; and metabolic disorders (1 source) Obese class I; Translations: [Obesity (BMI 30.0-34.9)] Onset: 0 02-22-2020 Other nutritional; endocrine; and metabolic disorders (1 source) Obese class II Phlebitis; thrombophlebitis and thromboembolism (20 sources) Acute deep venous thrombosis of axillary vein; Translations: [Acute embolism and thrombosis of left axillary vein] Onset: 2 Episodic Residual codes; unclassified (20 sources) Obstructive sleep apnea syndrome; Translations: [Obstructive sleep apnea (adult) (pediatric)] Onset: 0 02-24-2018 Chronic Comment on above: Auto BiPAP minimum E PAP 7 cmH2O maximum IPAP 15 cm of water pressure support 4 cmH2O Auto BiPAP min EPAP 7 cmH2O max IPAP 12 cmH2O pressure support 4 cmH2O Residual codes; unclassified (9 sources) Obstructive sleep apnea (adult) (pediatric); Translations: [Obstructive sleep apnea (adult)(pediatric)] Onset: 2 Chronic Residual codes; unclassified (2 sources) Dependence on other enabling machines and devices; Translations: [Dependence on other enabling machines and devices] Onset: 2 Chronic Residual codes; unclassified (1 source) Increased body mass index; Translations: [BMI 29.0-29.9,adult] Onset: 0 08-02-2019 Episodic Residual codes; unclassified (17 sources) Past history of procedure; Translations: [Other specified postprocedural states] 09-10-2021 Episodic Comment on above: s/p abdominal pannic ulectomy Residual codes; unclassified (4 sources) Acquired absence of bilateral breasts and nipples; Translations: [Acquired absence of breast and nipple] Episodic Residual codes; unclassified (9 sources) History of operative procedure on shoulder; Translations: [Other specified postprocedural states] Episodic Respiratory failure; insufficiency; arrest (adult) (1 source) Dependence on biphasic positive airway pressure ventilation Chronic Superficial injury; contusion (13 sources) Contusion of chest; Translations: [Contusion of unspecified front wall of thorax, initial encounter] 04-14-2022 Episodic Thyroid disorders (20 sources) Acquired hypothyroidism; Translations: [Hypothyroidism, unspecified] Onset: 9 08-08-2018 Chronic Comment on above: . Instructed how to take and to avoid calcium, iron, and vitamins with 4 hours of taking this medication. 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] Onset: 1 08-23-2015 Unclassified (1 source) Placement of stent in coronary artery ; Translations: [Presence of cardiac and vascular implant and graft, unspecified] Onset: 1 08-23-2015 Unclassified (5 sources) Skin finding; Translations: [Excess skin] Onset: 9 01-28-2019 Unclassified (1 source) Classic lichen planopilaris; Translations: [Classic lichen planopilaris] Onset: 5 Viral infection (14 sources) Disease caused by 2019-nCoV; Translations: [COVID-19] 11-27-2021 Episodic Past or Other Problems Problem Classification Problem Date Documented Da te Episodic/Chronic Acute and unspecified renal failure (9 sources) Acute injury of kidney; Translations: [Acute kidney failure, unspecified] Onset: 02-24-2018 02-24-2018 Episodic Biliary tract disease (15 sources) Acute cholecystitis; Translations: [Acute cholecystitis] Onset: 02-22-2018 03-12-2018 Episodic Coma; stupor; and brain damage (16 sources) Daytime somnolence; Translations: [Somnolence] Onset: 02-26-2017 02-26-2017 Episodic Coronary atherosclerosis and other heart disease (20 sources) Coronary angioplasty status; Translations: [Stented coronary artery] Onset: 03-17-2008 09-10-2010 Episodic Comment on above: BMS to proximal LAD 02/2009 [place] Deficiency and other anemia (1 source) Anemia, unspecified; Translations: [Anemia, unspecified] Onset: 04-13-2024 Episodic Diabetes mellitus with complications (1 source) Type 1 diabetes mellitus with diabetic peripheral angiopathy without gangrene; Translations: [Type 1 diabetes mellitus with diabetic peripheral angiopathy without gangrene] Onset: 09-10-2010 09-10-2010 Diabetes mellitus without complication (9 sources) Prediabetes; Translations: [Prediabetes] Resolved: 02-24-2018 02-24-2018 Episodic E Codes: Fall (20 sources) Fall; Translations: [Unspecified fall, initial encounter] Onset: 08-03-2018 08-08-2018 Episodic Fluid and electrolyte disorders (9 sources) Dehydration; Translations: [Dehydration] Onset: 02-20-2018 Resolved: 03-26-2018 03-26-2018 Episodic Headache; including migraine (9 sources) Cyclical vomiting syndrome; Translations: [Cyclical vomiting syndrome unrelated to migraine] Resolved: 02-24-2018 02-24-2018 Episodic Intracranial injury (20 sources) Traumatic brain injury; Translations: [Unspecified intracranial injury with loss of consciousness of unspecified duration, initial encounter] Onset: 08-03-2018 03-08-2019 Episodic Nonspecific chest pain (4 sources) Precordial pain; Translations: [Chest pain, unspecified] Onset: 09-10-2010 Resolved: 08-23-2015 08-23-2015 Episodic Nutritional deficiencies (18 sources) Deficiency of multiple nutrient elements; Translations: [Deficiency of multiple nutrient elements] Onset: 02-02-2018 02-02-2018 Episodic Open wounds of head; neck; and trunk (20 sources) Scalp laceration; Translations: [Laceration without foreign body of scalp, initial encounter] Onset: 08-03-2018 08-08-2018 Episodic Other circulatory disease (20 sources) History of bradycardia; Translations: [Personal history of other diseases of the circulatory system] Onset: 11-06-2021 11-06-2021 Episodic Other connective tissue disease (1 source) Adhesive capsulitis of right shoulder; Translations: [Adhesive capsulitis of right shoulder] Onset: 10-06-2023 Episodic Other gastrointestinal disorders (11 sources) Bariatric surgery status; Translations: [Bariatric surgery status] Onset: 06-18-2021 Episodic Other injuries and conditions due to external causes (1 source) Unspecified injury of head, initial encounter; Translations: [Unspecified injury of head, initial encounter] Onset: 08-05-2024 Episodic Other lower respiratory disease (2 sources) Dyspnea; Translations: [Dyspnea, unspecified] Onset: 09-10-2010 Resolved: 08-23-2015 08-23-2015 Episodic Other lower respiratory disease (15 sources) Dyspnea at rest; Translations: [Shortness of breath] Onset: 02-26-2017 02-26-2017 Episodic Other non-traumatic joint disorders (15 sources) Hip pain; Translations: [Pain in unspecified hip] Onset: 02-26-2017 02-26-2017 Episodic Other non-traumatic joint disorders (9 sources) Pain in unspecified knee; Translations: [Pain in joint, lower leg] Onset: 02-26-2017 02-26-2017 Episodic Other nutritional; endocrine; and metabolic disorders (2 sources) Body mass index 25-29 - overweight; Translations: [Body mass index (BMI) 29.0-29.9, adult] Onset: 08-02-2019 08-02-2019 Episodic Other nutritional; endocrine; and metabolic disorders (7 sources) Overweight in adulthood with body mass index of 25 or more but less than 30; Translations: [Body mass index (BMI) 29.0-29.9, adult] Onset: 08-02-2019 08-02-2019 Episodic Other skin disorders (9 sources) Skin finding; Translations: [Excessive and redundant skin and subcutaneous tissue] Onset: 01-28-2019 01-28-2019 Episodic Other upper respiratory infections (9 sources) Viral upper respiratory tract infection; Translations: [Acute upper respiratory infection, unspecified] Onset: 06-11-2024 06-03-2024 Episodic Skull and face fractures (20 sources) Fracture of occipital bone; Translations: [Unspecified fracture of occiput, initial encounter for closed fracture] Onset: 08-03-2018 08-08-2018 Episodic Spondylosis; intervertebral disc disorders; other back problems (15 sources) Backache; Translations: [Dorsalgia, unspecified] Onset: 02-26-2017 02-26-2017 Episodic Unclassified (2 sources) Abnormal result of cardiovascular function study, unspecified; Translations: [Abnormal result of cardiovascular function study, unspecified] Onset: 09-10-2010 Resolved: 08-23-2015 09-10-2010 Episodic Unclassified (1 source) Edema of lower extremity; Translations: [Localized edema] Onset: 07-15-2016 07-15-2016 Episodic Results Test Name Value Interpretation Reference Range Facility Pulmonary Visit Reporton Pulmonary Visit Report [facility] [address] [place] [address] OFFICE VISIT Date of Service: 11/25/24 MR#: [id number] Acct: [id number] Name: BRADLEY KEYS Rep #: [id number] : 1960 Provider: AILYN Chen Age/Sex: 63/M Location: [facility] Status: Signed Assessment and Plan Assessment and Plan (1) Obstructive sleep apnea: Status: Chronic Comment: Auto BiPAP min EPAP 7 cmH2O max IPAP 12 cmH2O pressure support 4 cmH2O Plan: Deteriorated. He is not feeling rested and has high percentage of central events on his compliance report. Patient has had significant weight loss, almost 40 pounds. I suspect that he may have improved his obstructive sleep apnea, or potentially even completely alleviated. For this reason I am sending him for a split-night study. If the patient continues to have sleep apnea, it is likely that he requires a different pressure support to manage the number of events. Follow-up in 6 weeks to discuss test results. He has been encouraged to contact the office with any new or worsening symptoms in the meantime. (2) Obesity: Status: Chronic Qualifiers: Body mass index: BMI 34.0-34.9 Obesity classification: adult class 1 (BMI 30 - 34.9) Obesity type: due to excess calories Serious obesity comorbidity presence: with serious comorbidity Qualified Code(s): E66.09 - Other obesity due to excess calories; Z68.34 - Body mass index (BMI) 34.0-34.9, adult Plan: Improving, he is on Ozempic and has responded well. The patient is not sure what his ultimate goal weight is. This is being managed by his primary care provider as it is prescribed for his diabetes. He reports that he has had good control of his A1c since being placed on Ozempic. Orders: Orders Split Night Sleep Study Today G47.33 - Obstructive sleep apnea (adult) (pediatric) Plan Details Additional Comments: This note was generated with [employer] dictation software. It may contain incorrect words, spelling, and punctuation that were not noted in checking the note before signing. I have spent 31 minutes today reviewing labs, records and history. Time includes coordinating care, interpretation of tests. This also includes time I spent with the patient for exam, treatment plan and education as well as documenting clinical information. Follow Up: 6 Weeks HPI 6 wk FU Chief Complaint: Sleep apnea HPI Comments Details: This patient presents to the office today for follow-up of his obstructive sleep apnea. He is ambulatory and on room air. He has not recently been seen in the ED or urgent care for any respiratory illness. Has not required any antibiotics or prednisone for any breathing problems. He is a lifelong never smoker. He is not currently on any inhalers. He denies any difficulty with shortness of breath. He denies any cough, sputum production or hemoptysis. He denies any wheezing, chest tightness, chest pain or palpitations. He also denies any fever, chills or body aches. He continues to have success with weight loss on the Ozempic. He wakes feeling rested. He is not having difficulty with dry mouth. His migraine headaches are more controlled, however he did have a Botox injection for this. He denies any difficulty with nodding off to sleep unintentionally. He is napping several times a week for 3 to 4 hours in duration. Compliance report for the past 30 days shows 100 % compliance with an average use of 6 hours and 20 minutes per night. Current setting is air curve 10 via auto minimum expiratory pressure of 7 cm of water with maximum inspiratory pressure 12 cmH2O and a pressure support of 4 cm of water. Pressures are typically being utilized at 11.4-11.9/7.3 to 7.9 cm of water. Residual AHI of 5.3 events per hour, also noting that the majority of those residual events are central. Leaks do not appear to be problematic. Intake Vital Signs 10/06/24 09:05 11/25/24 07:55 Height 5 ft 7 in 5 ft 7 in Weight: 180 lb BMI 28.1 BP 135/63 H Blood Pressure Location Lt brachial Position Sitting Respiration 18 Pulse 66 Pulse Source Auscultation Temp 97.4 F L Temperature Source Temporal Artery Pulse Oximetry (%) 99 Oxygen Delivery Method room air Intake Visit Reasons: 6 wk FU Floor Tech Required: No DME Vendor: [employer] Accompanied by: Self Is patient in pain?: No Allergies celecoxib (From Celebrex) Allergy (Intermediate, Verified 11/25/24 12:49) Rash Medications ???Medication ???Instructions ???Recorded ???Confirmed ???Type omeprazole 20 mg capsule,delayed 20 mg PO DAILY gerd #30 caps 08/2011/25/24 Rx release zinc 50 mg tablet 50 mg PO DAILY supplement 03/22/20 11/25/24 History levothyroxine 100 mcg tablet 100 mcg PO DAILY@0600 thyroid 07/0511/25/24 History mu (more content not included)... [facility] 11-03-2024 [facility] Office Visit (NEURMM) BRADLEY KEYS ([id number]) 1960 M Date Time Provider Department 11/03/24 1:30 PM KELLEY CRAIG During your visit today, we recorded the following information about you: Pulse Blood pressure Weight 61/minute 102/69 83.8 kg Kelley Craig APRN.IN HOUSE COUNSEL 11/03/2024 1:31 PM Signed Follow-Up Onabotulinum Toxin A (BotoxTM) for Migraine Indication: Chronic Intractable Migraine Treatment #: 2 Referral Expiration: 03/16/2025 Prior to the initiation of the FIRST treatment with Onabotulinum Toxin A, the patient reported the following average headache frequency over the past 3 MONTHS: Number of moderate-severe migraine days/month: 15 Number of mild migraine days/month: 0 Number of headache free days/month: 15 (360 headache-free hours) Migraine severity: 10/24 After treatment with Onabotulinum Toxin A: Number of moderate-severe migraine days/month: 8 Number of mild migraine days/month: 0 Number of headache free days/month: 22 (528 headache-free hours) Migraine severity: 10/24 Patient reduction in overall migraine days: Yes Patient reduction in moderate-severe migraine days: Yes Patient reduction of headache hours by 100 hours or more: Yes (reduction of 168 hours) Individual has obtained clinical benefit deemed significant by individual or prescriber (Y/N): Yes Patient's quality of life and ability to perform ADLs has improved (Y/N): Yes Side effects: none Wearing off: Yes - 10 weeks after treatment The patient has been assessed for disorders which could contribute to breathing or swallowing difficulty, and there is no contraindication with PREEMPT Botox. There is no documented allergic reaction/hypersensit ivity to any botulinum toxin and there is no active infection at proposed injection site. HEADACHE SCORES: There were no vitals taken for this visit. Patient name: Bradley Keys : 1960 ALLERGIES Allergen Reactions Celebrex [Celecoxib] blisters from head to toe UNIVERSAL PROTOCOL / SAFETY CHECKLIST Procedure: Onabotulinum toxin A for migraine Informed Consent Consent Obtained: Written [place] Protocol A moment to CARE was completed SIGN IN Personnel directly involved with the procedure wore the appropriate PPE Special Equipment: N/A Patient/Surrogate Stated/Verified: Patient name, Date of , Relevant allergies and Intended procedure TIME OUT No relevant labs, photos, and/or imaging studies were applicable for review. Consent documented and matches the intended procedure No correct side/site applicable for marking and visibility. No medications required for procedure. No fire risk assessment and interventions applicable. No implant(s) inserted. SIGN OUT No specimen collected. 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 He is treating his break through headaches with nurtec, which work well. He tolerated the procedure well He will follow up in 12 weeks for his next cycle of botox. SHERRY Gross Sarah, APRN.CNP 11/03/2024 1:30 PM Signed Botox Home Instruction: Instruction after botox injection: - If you have any pain or swelling use ice, 20 min on and 20 min off. Do not rub or massage the area for 48 hrs. - If you have any neck stiffness, you may use heat and do stretching exercises. - This should improve over the next 5 days. Referring Provider: DHARA PECK [[id number]] Allergies As of Date: 11/03/2024 Noted Allergy Reaction CELEBREX (CELECOXIB) 05/27/2007 Comments: blisters from head to toe Date Reviewed: 11/03/2024 Reviewed by: Gem Diaz MA - Fully Assessed Reason for Visit: Neurotoxin Injection [3854] Primary Visit Diagnosis:Intractabl e chronic migraine without aura and without status migrainosus [G43.719] Order(s):[] onabotulinum toxin type A 200 Units injection (BOTOX)Disp: Rfl: Prescriptions as of 11/16/2024 - minoxidil (LONITEN) 2.5 mg tablet Take 2.5 mg by mouth once daily. - doxycycline monohydrate 100 mg tablet Take 100 mg by mouth. - rimegepant (NURTEC ODT) 75 mg disintegrating tablet TAKE 1 TABLET BY MOUTH ONCE DAILY NEEDED - topiramate (TOPAMAX) 100 mg tablet Take 1 tablet by mouth two times a day. - topiramate (TOPAMAX) 50 mg tablet Take 1 tablet (more content not included)... Normal [facility] Cardiology Visit Reporton Cardiology Visit Report [facility] [address] [place] [address] OFFICE VISIT Date of Service: 10/18/24 MR#: [id number] Acct: [id number] Name: BRADLEY KEYS Rep #: [id number] : 1960 Provider: Dr. Kevon kwon MD Age/Sex: 63/M Location: [facility] Status: Signed HPI HPI History of Present Illness Details: Patient is a pleasant 63-year-old white male that comes today for monitoring of his coronary artery disease. The patient had a fall resulting in a subarachnoid bleed and skull fracture where he was incapacitated for a prolonged period of time. He is now living a functional life. He is accompanied by his in the office today. The patient reports that he is down to 183 pounds from 234 back in March 2022. He is status post bariatric surgery has a history of diabetes mellitus and is on Ozempic. His last hemoglobin A1c was 5.2 in June and his metformin was discontinued. The patient has a history of hypertension his blood pressure is well-controlled in office today at 102/68 he is on no medication since the weight loss. He also has a history of obstructive sleep apnea he is on CPAP mask. The patient had a stent to his LAD done in 2008. He denies any anginal type symptoms denies any palpitations denies any shortness of breath or dyspnea on exertion has no lower extremity edema. Intake Vital Signs 10/06/24 09:05 10/18/24 15:09 Height 5 ft 7 in 5 ft 7 in Weight: 183 lb 183 lb BMI 28.6 28.6 BP 106/71 102/68 Blood Pressure Location Rt brachial Rt brachial Position Sitting Sitting Respiration 16 18 Pulse 69 61 Pulse Source Monitor Monitor Temp 96.5 F L Temperature Source Temporal Artery Pulse Oximetry (%) 96 Oxygen Delivery Method room air Intake Visit Reasons: 1 Y FU Floor Tech Required: No Accompanied by: Is patient in pain?: No Allergies celecoxib (From Celebrex) Allergy (Intermediate, Verified 10/18/24 15:13) Rash Medications ???Medication ???Instructions ???Recorded ???Confirmed ???Type omeprazole 20 mg capsule,delayed 20 mg PO DAILY gerd #30 caps 08/2010/18/24 Rx release zinc 50 mg tablet 50 mg PO DAILY supplement 03/22/20 10/18/24 History levothyroxine 100 mcg tablet 100 mcg PO DAILY@0600 thyroid 0807/0510/18/24 History multivitamin-mineral s-lutein 1 tab PO DAILY 03/29/21 10/18/24 H istory tablet (Cerovite Senior) rimegepant 75 mg disintegrating 75 mg PO ONCE PRN migraine headach e 02/25/22 10/18/24 History tablet (Nurtec ODT) atorvastatin 40 mg tablet 40 mg PO QHS cholesterol #90 tabs 03/27/22 10/18/24 Rx citalopram 40 mg tablet 40 mg PO QDAY 07/05/24 10/18/24 Hi story gabapentin 600 mg tablet 600 mg PO QHS 07/05/24 10/18/24 Hi story melatonin 5 mg tablet 5 mg PO QHS PRN sleep 07/05/2407/09 History semaglutide 1 mg/dose (4 mg/3 mL) 1 mg subcut QWEEK 07/05/24 History subcutaneous pen injector (Ozempic) topiramate 100 mg tablet 100 mg PO BID 07/05/24 10/18/24 Hi story cholecalciferol (vitamin D3) 50 50 mcg PO QDAY 10/06/24 10/18/24 H istory mcg (2,000 unit) tablet clobetasol 0.05 % shampoo topical QDAY 10/06/24 10/18/24 His tory doxycycline monohydrate 100 mg 100 mg PO QDAY 10/06/24 10/18/24 H istory tablet vitamin B complex 1 tab PO BID 10/06/24 10/18/24 His tory Oyster shell PO DAILY 10/18/24 History clobetasol 0.05 % scalp solution topical 10/18/24 10/18/24 History Ejection fraction %: 65 Have you fallen in the past year?: Yes (1- slipped on rug next to shower) [facility] Medical History Wears partial dentures Gastric reflux Cardiology follow-up encounter Wears glasses Diabetes Hypothyroidism Non-smoker BiPAP (biphasic positive airway pressure) dependence Hx of cardiovascular stress test Edema Coronary artery disease Hypertension Migraine headache Injury of head and neck Excessive body weight loss Intertrigo Gynecomastia, male Panniculitis, unspecified Abdominal panniculus Vitamin deficiency GERD (gastroesophageal reflux disease) History of pneumonia Neuropathy High triglycerides High cholesterol Hearing problem Frequent headaches Anxiety and depression Back problem Essential hypertension Obstructive sleep apnea Bradycardia Subdural hematoma (08/03/18) Traumatic brain injury (08/03/18) Pressure ulcer of coccygeal region, stage 2 Dizziness Dyspnea on exertion Constipation Hypothyroidism (acquired) Hiatal hernia Preop cardiovascular exam Atherosclerotic heart disease of false pass coronary artery without angina pectoris Chronic diarrhea Obesity Diabetes type 2, uncontrolled Hyperlipidemia Surgical History ... Normal [facility] Pulmonary Visit Reporton Pulmonary Visit Report [facility] [address] [place] [address] OFFICE VISIT Date of Service: 10/06/24 MR#: [id number] Acct: [id number] Name: BRADLEY KEYS Rep #: [id number] : 1960 Provider: AILYN Chen Age/Sex: 63/M Location: [facility].PMW Status: Signed Assessment and Plan Assessment and Plan (1) Obstructive sleep apnea: Status: Chronic Comment: Auto BiPAP min EPAP 7 cmH2O max IPAP 12 cmH2O pressure support 4 cmH2O Plan: Deteriorated, he has not recently achieved at least 80% compliance. He admits that he often falls asleep in the recliner before putting his mask on and turning the machine on. He sleeps in the recliner every night, including nights when he utilizes PAP therapy. He is agreeable to attempt better compliance over the next few weeks and return to the office for an updated compliance report review. AHI is actually improved since last office visit, we will continue to monitor on the next report. No indication for a titration study at this time. However, if AHI remains elevated despite better compliance (allowing more reliable data) then the patient may benefit from a retitration. Follow up in 4-6 weeks to evaluate response and compliance report. No indication for titration study at this time. (2) Obesity: Status: Chronic Qualifiers: Obesity type: due to excess calories Obesity classification: adult class 1 (BMI 30 - 34.9) Serious obesity comorbidity presence: with serious comorbidity Body mass index: BMI 34.0-34.9 Qualified Code(s): E66.09 - Other obesity due to excess calories; Z68.34 - Body mass index (BMI) 34.0-34.9, adult Plan: Improving, he is on Ozempic. He has responded well to Ozempic and has lost an additional 17 pounds. Another research to consider a retitration study. (3) Migraine headache: Status: Chronic Qualifiers: Migraine type: unspecified Comment: Botox injections Plan: He continues to suffer from migraine headaches frequently. He then finds himself sleeping during the day as a result of the migraine headache, which then leads to him staying awake later at night. This has contributed to poor sleep hygiene. Achieving better compliance with PAP therapy could decrease the frequency of his migraine headaches, resulting in overall better sleep hygiene and a sensation of feeling more rested and refreshed. Plan Details Additional Comments: This note was generated with [employer] dictation software. It may contain incorrect words, spelling, and punctuation that were not noted in checking the note before signing. Follow Up: 6 Weeks HPI 3 M FU Chief Complaint: PAP therapy HPI Comments Details: This patient presents to the office today for follow-up of his obstructive sleep apnea. He is ambulatory and on room air. He has not recently been seen in the ED or urgent care for any respiratory illness. Has not required any antibiotics or prednisone for any breathing problems. He is a lifelong never smoker. He is not currently on any inhalers. He denies any difficulty with shortness of breath. He denies any cough, sputum production or hemoptysis. He denies any wheezing, chest tightness, chest pain or palpitations. He also denies any fever, chills or body aches. He continues to have success with weight loss on the Ozempic. He wakes feeling rested most times when he utilizes PAP therapy. He admits that he usually sleeps in the recliner and sometimes falls asleep before putting his PAP mask on and turning the machine on. He also recently went out of town for the weekend and did not take his PAP device with him. He is not having difficulty with dry mouth. He continues to experience frequent migraine headaches. He denies any difficulty with nodding off to sleep unintentionally. He is not requiring naps. Compliance report for the past 30 days shows 70 % compliance with an average use of 6 hours and 38 minutes per night. Current setting is air curve 10 via auto minimum expiratory pressure of 7 cm of water with maximum inspiratory pressure 12 cmH2O and a pressure support of 4 cm of water. Pressures are typically being utilized at 11.4-11.9/7 0.4 to 7.9 cm of water. Residual AHI of 7.6 events per hour. Leaks do not appear to be problematic. Intake Vital Signs 07/05/24 07:56 10/06/24 09:05 Height 5 ft 7 in 5 ft 7 in Weight: 183 lb BMI 28.6 BP 106/71 Blood Pressure Location Rt brachial Position Sitting Respiration 16 Pulse 69 Pulse Source Monitor Temp 96.5 F L Temperature Source Temporal Artery Pulse Oximetry (%) 96 Oxygen Delivery Method room air Intake Visit Reasons: 3 M FU Chief Complaint: SDH Floor Tech Required: No DME Vendor: [employer] Accompanied by: Self Is patient in pain?: No Allergies celecoxib (From Celebrex) Allergy (Intermediate, Verified (more content not included)... Normal [facility] Brain/Head without Contrasto n 07-30-2024 Brain/Head without Contrast [facility] Imaging Services [address] [place], [place] [address] Brain/Head without Contrast MR#: [id number] Acct: [id number] Name: BRADLEY KEYS Rep #: [id number] : 1960 M 63 From: Gary Villegas MD PCP: AILYN Colin Status: REG ER Study: Brain/Head without Contrast Date of Exam: 07/15 09/08 Exam# [id number] Ordering Dr: Hiram Burns DO PROCEDURE: BRAIN/HEAD WITHOUT CONTRAST 07/30/2024 REASON FOR EXAM: HEAD TRAUMA TECHNIQUE: Head CT without intravenous contrast. Coronal and Sagittal reconstruction series were provided. One or more dose reduction techniques were used (e.g., Automated exposure control, adjustment of the mA and/or kV according to patient size, use of iterative reconstruction technique. RADIATION DOSE SUMMARY: CTDlvol: 45.0 mGy DLP: 830 mGycm COMPARISON: CT head 04/06/2022 FINDINGS: Brain: No acute intracranial hemorrhage, mass effect, or midline shift. CSF Spaces: Unremarkable Sinuses/Mastoids: Clear at visualized levels Bones: No displaced calvarial fracture. Stranding in the left parietal scalp soft tissues is unchanged.. CT/Brain/Head without Contrast IMPRESSION: No acute intracranial abnormality. Reading Location: [facility] CC: AILYN Khoury; Dr. Hiram Burns DO Dentistry Teacher: Signed [facility] 07-30-2024 CNPN Telephone (FAMPWS) BRADLEY KEYS ([id number]) 1960 M Date Time Provider Department 07/30/24 NO PCP (HISTORICAL) FAMPWS During your visit today, we recorded the following information about you: Jenni Hester RN 07/30/2024 4:45 PM Signed Spouse calls to report that patient is still having head pain/symptoms from his fall with head injury and they are not able to get him in for a CT Scan until 08/15/2024. Patient is not seen by [facility]. Spouse reports that patient was seen at [facility] by Samantha Calixto. Recommended contacting their office to review on-going symptoms that patient was seen by them for and ask about further recommendations. Spouse then reports that patient is seen by neurology here and wants it reviewed with them. Noted patient is established with neurology for migraines unrelated to fall with head injury. Instructed to contact [facility] or go to ER if symptoms are worsening. Spouse verbalizes understanding. Jenni Hester RN Allergies As of Date: 07/30/2024 Noted Allergy Reaction CELEBREX (CELECOXIB) 05/27/2007 Comments: blisters from head to toe Date Reviewed: 06/24/2024 Reviewed by: Dhara Peck PA-C - Fully Assessed Reason for Visit: Patient Update [1234] Prescriptions as of 07/30/2024 - OZEMPIC 1 mg/dose (4 mg/3 mL) pen - topiramate (TOPAMAX) 50 mg tablet Take 1 tablet by mouth two times a day. takes with the 100 mg twice daily - topiramate (TOPAMAX) 100 mg tablet Take 1 tablet by mouth two times a day. takes with the 50 mg twice daily - NURTEC ODT 75 mg disintegrating tablet Take 1 tablet by mouth once daily as needed. - ondansetron orally disintegrating (ZOFRAN ODT) 4 mg disintegrating tablet Dissolve 1 tablet on tongue every 8 hours as needed for nausea/vomiting. - docusate sodium (COLACE) 100 mg capsule Take 1 capsule by mouth two times a day. - metFORMIN (GLUCOPHAGE) 500 mg tablet Take 500 mg by mouth daily with breakfast. - magnesium oxide 400 mg magnesium cap Take 1 capsule by mouth once daily. - gabapentin (NEURONTIN) 300 mg capsule Take 300 mg by mouth three times a day. - acetaminophen (TYLENOL) 325 mg tablet Take 650 mg by mouth every 6 hours as needed. - aspirin 81 mg chewable tablet Take 81 mg by mouth once daily. - blood sugar diagnostic (WhisperTOUCH VERIO TEST STRIPS) test strip Use to test glucose once daily as directed. DX: E11.42, non insulin dependent. - OYSTER SHELL CALCIUM-VITAMIN D 500 mg(1,250mg) -200 unit per tablet Take 1 tablet by mouth once daily. - lancets (ONE TOUCH DELICA) 33 gauge Use to test glucose once daily as directed. DX: E11.42, non insulin dependent. - Blood-Glucose Meter (ONETOUCH VERIO METER) Use to test glucose once daily as directed. DX: E11.42, non insulin dependent. - Zinc 50 mg tab Take 50 mg by mouth once daily. - atorvastatin (LIPITOR) 40 mg tablet Take 40 mg by mouth once daily. - melatonin 3 mg tablet Take 2 tablets by mouth daily at bedtime. - Cholecalciferol, Vitamin D3, 2,000 unit cap Take 2 capsules by mouth once daily. - omeprazole (PRILOSEC) 20 mg capsule Take 20 mg by mouth once daily. - citalopram (CELEXA) 20 mg tablet Take 30 mg by mouth once daily. - levothyroxine (SYNTHROID) 100 mcg tablet Take 100 mcg by mouth daily before breakfast. - cyanocobalamin, vitamin B-12, (VITAMIN B-12 ORAL) Take 500 Units by mouth two times a day. - multivit-min/folic/v it K/lycop (ONE-A-DAY MEN'S MULTIVITAMIN ORAL) Take 1 tablet by mouth once daily. Problem List As Of Date 07/30/2024 Noted Resolved Obstructive sleep apnea [G47.33] 10/16/2009 Controlled type 2 diabetes mellitus with diabet*06/01/2018 Essential hypertension [I10] 06/01/2018 Mixed hyperlipidemia [E78.2] 06/01/2018 Acquired hypothyroidism [E03.9] 06/01/2018 Vitamin D deficiency [E55.9] 06/01/2018 History of gastric bypass [Z98.84] 06/01/2018 Coronary artery disease involving false pass loyola*06/01/2018 Gastroesophageal reflux disease without esophag*06/01/2018 Subdural hemorrhage (HCC) [I62.00] 08/03/2018 Occipital bone fracture (HCC) [S02.119A] 08/03/2018 Fall [W19.XXXA] 08/03/2018 Scalp laceration, initial encounter [S01.01XA] 08/03/2018 Dizziness [R42] 08/08/2018 Class 1 obesity with serious comorbidity and ketan*10/01/2018 Hx of sinus bradycardia [Z86.79] 11/06/2021 Migraine [G43.909] 11/06/2021 DVT of upper extremity (deep vein thrombosis) (*11/06/2021 Anxiety and depression [F41.9, F32.A] 11/06/2021 Carpal tunnel syndrome [G56.00] 11/06/2021 Encounter Status:Closed by JENNI HESTER on 07/30/24 Normal [facility] CT Chest, Abd, Pelvis WO Con ton 07-30-2024 CT Chest, Abd, Pelvis WO Cont [facility] Imaging Services [address] [place] [address] CT Chest, Abd, Pelvis WO Cont MR#: [id number] Acct: [id number] Name: BRADLEY KEYS Rep #: [id number] : 1960 M 63 From: Jay cunha MD PCP: AILYN Colin Status: REG ER Study: CT Chest, Abd, Pelvis WO Cont Date of Exam: Exam# [id number] Ordering Dr: Hiram Burns DO PROCEDURE: CT CHEST, ABD, PELVIS WO CONT 07/30/2024 REASON FOR EXAM: CHEST PAIN, ABDOMINAL PAIN AND AFTER FALL TECHNIQUE: Chest, abdomen and pelvis CT without intravenous contrast. Coronal and Sagittal reconstruction series were provided. One or more dose reduction techniques were used (e.g., Automated exposure control, adjustment of the mA and/or kV according to patient size, use of iterative reconstruction technique. COMPARISON: CT chest 10/24/2018 FINDINGS: CT CHEST: Hardware: None Lymph nodes: No suspicious adenopathy. Heart and Vasculature: Mild cardiomegaly. Severe coronary artery calcifications. No pericardial effusion. Atherosclerotic calcifications of the thoracic aorta. Thoracic aorta and pulmonary arteries have normal contours; noncontrast technique limits evaluation. Coronary Artery Calcifications: Present Lungs and Airways: Central airways are patent without endobronchial lesions. Patchy opacities in the lung base, compatible with atelectasis. No focal consolidation. No suspicious pulmonary nodules. No pneumothorax. No pleural effusion. Bones: Degenerative changes of the thoracic spine. No focal osseous abnormality. Chest wall: Mild bilateral gynecomastia. CT ABDOMEN / PELVIS: Noncontrast technique limits evaluation of the abdominal and pelvic viscera. Liver: Normal size. No mass. Gallbladder: No ductal dilation. Status post cholecystectomy. Spleen: Multiple splenic granulomas. No splenomegaly. Pancreas: Normal size without evidence of mass surrounding inflammation or ductal dilation. Adrenals: Unremarkable Kidneys: Bilateral parapelvic cysts. No calculi or hydronephrosis. Bladder: Urinary bladder is unremarkable. Reproductive Organs: No pelvic mass. Bowel: Status post Jolanta-en-Y. No bowel dilation or wall thickening. Extensive colonic stool with fecal impaction. Appendix: Normal appendix. Lymph nodes: No suspicious adenopathy. Vasculature: Mild diffuse atherosclerotic calcifications are noted. Peritoneum / Retroperitoneum: No ascites. No pneumoperitoneum. Bones: Degenerative changes of the spine. Soft tissue: Mild subcutaneous edema. CT/CT Chest, Abd, Pelvis WO Cont IMPRESSION: Chest: No acute findings in the thorax. Abdomen and pelvis: No acute findings in the abdomen and pelvis. Extensive colonic stool with fecal impaction. Reading Location: [facility] CC: [employer]TON [employer]-C Samantha Khoury; Dr. Hiram Burns DO Dentistry Teacher: Signed Normal [facility] Emergency Department Summary on 07-30-2024 Emergency Department Summary [facility] Medical Records Department [address] [place] [address] Emergency Department Summary 07/30/24 MR#: [id number] Acct: [id number] Name: BRADLEY KEYS Rep #: [id number] : 1960 63 From: Hiram Burns DO PCP: AILYN Colin Status:REG ER Location: ED HPI HPI - Fall History of Present Illness Chief Complaint: Fall PFSH PFSH Medical History Wears partial dentures Gastric reflux Cardiology follow-up encounter Wears glasses Diabetes Hypothyroidism Non-smoker BiPAP (biphasic positive airway pressure) dependence Hx of cardiovascular stress test Edema Coronary artery disease Hypertension Migraine headache Injury of head and neck Excessive body weight loss Intertrigo Gynecomastia, male Panniculitis, unspecified Abdominal panniculus Vitamin deficiency GERD (gastroesophageal reflux disease) History of pneumonia Neuropathy High triglycerides High cholesterol Hearing problem Frequent headaches Anxiety and depression Back problem Essential hypertension Obstructive sleep apnea Bradycardia Subdural hematoma (08/03/18) Traumatic brain injury (08/03/18) Pressure ulcer of coccygeal region, stage 2 Dizziness Dyspnea on exertion Constipation Hypothyroidism (acquired) Hiatal hernia Preop cardiovascular exam Atherosclerotic heart disease of false pass coronary artery without angina pectoris Chronic diarrhea Obesity Diabetes type 2, uncontrolled Hyperlipidemia Home Medications ???Medication ???Instructions ???Recorded ???Last Taken ???Type omeprazole 20 mg capsule,delayed 20 mg PO DAILY gerd #30 caps 08/2001/24/21 Rx release cholecalciferol (vitamin D3) 50 2,000 unit PO DAILY supplement Unknown History mcg (2,000 unit) capsule (Vitamin D3) vitamin B complex 1 cap PO BID supplement 12/31/18 U nknown History zinc 50 mg tablet 50 mg PO DAILY supplement 03/22/20 Unknown History calcium 500 mg (as 1 ea PO DAILY supplement 05/09/20 Unknown History carbonate)-vitamin D3 15 mcg (600 unit) tablet levothyroxine 100 mcg tablet 100 mcg PO DAILY@0600 thyroid 08/0 07/0501/24/21 History multivitamin-mineral s-lutein 1 tab PO DAILY 03/29/21 Unknown Hi story tablet (Cerovite Senior) rimegepant 75 mg disintegrating 75 mg PO ONCE PRN migraine headach e 02/25/22 Unknown History tablet (Nurtec ODT) atorvastatin 40 mg tablet 40 mg PO QHS cholesterol #90 tabs 03/27/22 Unknown Rx citalopram 40 mg tablet 40 mg PO QDAY 07/05/24 Unknown His tory doxycycline monohydrate 100 mg 100 mg PO QDAY 07/05/24 Unknown Hi story capsule gabapentin 600 mg tablet 600 mg PO QHS 07/05/24 Unknown His tory melatonin 5 mg tablet 5 mg PO QHS PRN sleep 07/05/24 Unk nown History semaglutide 1 mg/dose (4 mg/3 mL) 1 mg subcut QWEEK 07/05/24 Unknow n History subcutaneous pen injector (Ozempic) topiramate 100 mg tablet 100 mg PO BID 07/05/24 Unknown His tory topiramate 50 mg tablet (Topamax) 50 mg PO BID seizures 07/05/24 Un known History citalopram 10 mg tablet (Celexa) 10 mg PO DAILY 07/30/24 Unknown Hi story Allergy/AdvReac Type Severity Reaction Status Date / Time celecoxib (From Celebrex) Allergy Intermediate Rash Verified 07/30/24 18:18 Family History Mother CAD (coronary artery disease) Diabetes History of blood clots Heart disease Hypertension High cholesterol Kidney disease Respiratory disease Seizures CVA (cerebral vascular accident) Father CAD (coronary artery disease) Hypertension Cancer Diabetes Heart disease High cholesterol CVA (cerebral vascular accident) Lung cancer Sister CAD (coronary artery disease) Hypertension Alcoholism Anxiety Suicide attempt Grandfather Diabetes Grandmother Diabetes Surgical History History of cholecystectomy History of bilateral mastectomy History of excision of lesion History of abdominal surgery (07/25/20) Hx of colonoscopy History of gastric bypass History of hernia repair Stented coronary artery ( 02/2009) Hx of cholecystectomy Status post bariatric surgery removal of lypoma H/O hemorrhoidectomy removal of enlarged lymph node Social History Smoking Status: Never smoker second hand exposure: No alcohol intake: never substance use type: does not use caffeine: No additional social history: DOES TAKE ASPIRIN DOES TAKE IBUPROFEN EXAM Physical Exam Const Vital Signs: 07/30/24 18:18 07/30/24 20:22 Temperature 98.1 F Temperature Source Oral Pulse Rate 68 62 Respiratory Rate 16 16 Blood (more content not included)... Normal [facility] Spine Cervical without Contr ason 07-30-2024 Spine Cervical without Contras [facility] Imaging Services [address] [place] [address] Spine Cervical without Contras MR#: [id number] Acct: [id number] Name: BRADLEY KEYS Rep #: [id number] : 1960 M 63 From: Gary Villegas MD PCP: AILYN Colin Status: REG ER Study: Spine Cervical without Contras Date of Exam: 0 07/30/24 Exam# [id number] Ordering Dr: Hiram Burns DO PROCEDURE: SPINE CERVICAL WITHOUT CONTRAS 07/30/2024 REASON FOR EXAM: NECK PAIN TECHNIQUE: Cervical spine CT without contrast. Coronal and Sagittal reconstruction series were provided. One or more dose reduction techniques were used (e.g., Automated exposure control, adjustment of the mA and/or kV according to patient size, use of iterative reconstruction technique RADIATION DOSE SUMMARY: CTDlvol: 20.1 mGy DLP: 420 mGycm COMPARISON: CT cervical spine 08/02/2018 FINDINGS: Vertebral body heights and alignment are maintained. No displaced fracture. Mild endplate osteophyte formation and disc space narrowing is worst at C5-6 where there is mild osseous neural foraminal narrowing bilaterally. Surgical clips in the left neck soft tissues. Carotid bulb calcifications. Lung apices are clear. CT/Spine Cervical without Contras IMPRESSION: No displaced fracture or traumatic listhesis of the cervical spine. Mild multilevel degenerative changes, worst at C5-6. Reading Location: [facility] CC: AILYN Khoury; Dr. Hiram Burns DO Dentistry Teacher: Signed Normal [facility] Spine Thoracic without Contr ason 07-30-2024 Spine Thoracic without Contras [facility] Imaging Services [address] [place] [address] Spine Thoracic without Contras MR#: [id number] Acct: [id number] Name: BRADLEY KEYS Rep #: [id number] : 1960 M 63 From: Jay cunha MD PCP: AILYN Colin Status: REG ER Study: Spine Thoracic without Contras Date of Exam: 0 07/30/24 Exam# [id number] Ordering Dr: Hiram Burns DO PROCEDURE: SPINE THORACIC WITHOUT CONTRAS REASON FOR EXAM: BACK PAIN AFTER FALL TECHNIQUE: Thoracic spine CT without contrast. Coronal and Sagittal reconstruction series were provided. One or more dose reduction techniques were used (e.g., Automated exposure control, adjustment of the mA and/or kV according to patient size, use of iterative reconstruction technique). COMPARISON: None FINDINGS: Alignment: Thoracic kyphosis is maintained. Bones: Mild loss of disc height at T3 vertebral body, likely secondary to a herniated Schmorl's node. Otherwise, vertebral body heights and disc spaces are within normal limits. No acute fracture or traumatic subluxation. No suspicious lytic or blastic lesion. No significant degenerative changes of the thoracic spine. 4 Soft Tissues: Paraspinal soft tissues are unremarkable. Other: Atelectasis within the imaged lung kirk. CT/Spine Thoracic without Contras IMPRESSION: No acute fracture or traumatic subluxation. Reading Location: [facility] CC: AILYN Khoury; Dr. Hiram Burns DO Dentistry Teacher: Signed Normal [facility] ANTINUCLEAR ANTIBODIES DIREC Ton 07-07-2024 RADHA,DIRECT Negative Normal Negative [facility] Comment on above: Result Comment: Perf ormed at: [facility] [address] [id number] Compensation Vice President: Eezquiel Pickard PhD, Phone: [phone] Performed By: #### L 101.9900, L500.4100, L501.9520, L506.0400, L3100.5475, L3300.6900, L501.6710 ####[facility] [address] [place], [address] Thyroid Peroxidase ABon 04-2 THYR PEROX AB 12 IU/mL Normal 0-34 [facility] Comment on above: Result Comment: Perf ormed at: [facility] [id number] [place], [place] [id number] Compensation Vice President: Ezequiel Pickard PhD, Phone: [phone] Performed By: #### L 101.9900, L500.4100, L501.9520, L506.0400, L3100.5475, L3300.6900, L501.6710 ####[facility] [address] [place], [address] RADHA serumOrdered By: Samantha Khoury on 07-06-2024 Anti-Nuclear Antibody Screen Negative Negative [facility] Comment on above: Performed at: [facility] [address] [place], [place] [id number] Director: Ezequiel Pickard PhD, Phone: [phone] CRPon 07-06-2024 C-REACTIVE PROT < 3.00 Normal 0.0-3.0 [facility] Comment on above: Performed By: #### L 101.9900, L500.4100, L501.9520, L506.0400, L3100.5475, L3300.6900, L501.6710 ####[facility] [address] [place], [address] CRP [Mass/Vol]Ordered By: Billy Khoury on 07-06-2024 C-Reactive Protein Extended Range < 3.00 mg/L 0.0-3.0 [facility] Calculated very low density lipoprotein (VLDL) cholesterol measurementOrdered By: Samantha Khoury on 07-06-2024 Calculated very low density lipoprotein (VLDL) cholesterol measurement 9 mg/dL 5-40 [facility] VLDL Cholesterol 9 mg/dL 5-40 [facility] Erythrocyte Sed Rateon 07-06 SED RATE < 1 Normal 0-20 [facility] Comment on above: Performed By: #### L 101.9900, L500.4100, L501.9520, L506.0400, L3100.5475, L3300.6900, L501.6710 ####[facility] [address] [place], [address] Erythrocyte sedimentation ra teOrdered By: Samantha Khoury on 07-06-2024 ESR (Bld) [Velocity] mm/h 0-20 [facility] LDL calc ser/plasOrdered By: Samantha Khoury on 07-06-2024 Cholesterol in LDL [Mass/Vol] 30 mg/dL [facility] Comment on above: Zbhzivwwep=537-802 m g/dL & Higher Rhpc=494 mg/dL or greater LDL Cholesterol, Calculated 30 mg/dL [facility] Comment on above: Dmqrivmayp=451-192 m g/dL & Higher Bufr=452 mg/dL or greater Lipid Profileon 07-06-2024 CHOL:HDL 1.90 Normal [facility] Comment on above: Performed By: #### L 101.9900, L500.4100, L501.9520, L506.0400, L3100.5475, L3300.6900, L501.6710 ####[facility] [address] [place], [address] Cholesterol [Mass/Vol] 83 mg/dL Normal <=200 [facility] Comment on above: Result Comment: Chol esterol level, Desirable <200 mg/dL Borderline high cholesterol 200-239 mg/dL High cholesterol >=240 mg/dL Recommendations of the NCEP Adult Treatment Panel for the following risk-cutoff thresholds for the [place] population. Performed By: #### L 101.9900, L500.4100, L501.9520, L506.0400, L3100.5475, L3300.6900, L501.6710 ####[facility] [address] [place], [address] Cholesterol in HDL [Mass/Vol] 44 mg/dL Normal [facility] Comment on above: Result Comment: Ju onal Cholesterol Education Program (NCEP) guidelines: <40 mg/dL: Low HDL-cholesterol (major risk factor for CHD) >= 60 mg/dL: High HDL-cholesterol (negative risk factor for CHD) HDL-cholesterol is affected by a number of factors, e.g. smoking, exercise, hormones, sex and age. Performed By: #### L 101.9900, L500.4100, L501.9520, L506.0400, L3100.5475, L3300.6900, L501.6710 ####[facility] [address] [place], [address] Cholesterol in LDL [Mass/Vol] 30 mg/dL Normal [facility] Comment on above: Result Comment: Bord ebjybe=519-877 mg/dL Higher Bfrj=200 mg/dL or greater Performed By: #### L 101.9900, L500.4100, L501.9520, L506.0400, L3100.5475, L3300.6900, L501.6710 ####[facility] [address] [place], [address] Cholesterol in VLDL [Mass/Vol] 9 mg/dL Normal 5-40 [facility] Comment on above: Performed By: #### L 101.9900, L500.4100, L501.9520, L506.0400, L3100.5475, L3300.6900, L501.6710 ####[facility] [address] [place], [address] Triglyceride [Mass/Vol] 47 mg/dL Normal [facility] Comment on above: Result Comment: The drugs N-Acetylcysteine and Metamizole may falsely depress this assay. Normal range: <150 mg/dL Borderline High: 150-199 mg/dL High: 200-499 mg/dL Very High: >500 mg/dL Performed By: #### L 101.9900, L500.4100, L501.9520, L506.0400, L3100.5475, L3300.6900, L501.6710 ####[facility] [address] [place], [address] Screening total cholesterol/ high density lipoprotein (HDL) cholesterol ratioOrdered By: Samantha Khoury on 07-06-2024 Cholesterol.total/Cholester ol in HDL [Mass ratio] 1.90 {ratio} [facility] Serum or plasma C reactive p rotein measurement (mass/volume)Ordered By: Samantha Khoury on 07-06-2024 CRP [Mass/Vol] mg/L 0.0-3.0 [facility] Serum or plasma cholesterol in HDL measurement (mass/volume)Ordered By: Samantha Khoury on 07-06-2024 Cholesterol in HDL [Mass/Vol] 44 mg/dL >40 [facility] Comment on above: National Cholesterol Education Program (NCEP) guidelines:<40 mg/dL: Low HDL-cholesterol (major risk factor for CHD)>= 60 mg/dL: High HDL-cholesterol (negative risk factor for CHD)HDL-cholesterol is affected by a number of factors, e.g. smoking, exercise, hormones, sex and age. Serum or plasma cholesterol measurement (mass/volume)Ordered By: Samantha Khoury on 07-06-2024 Cholesterol [Mass/Vol] 83 mg/dL <201 [facility] [place] Comment on above: Cholesterol level, D esirable <200 mg/dLBorderline high cholesterol 200-239 mg/dLHigh cholesterol >=240 mg/dLRecommendations of the NCEP Adult Treatment Panel for the following risk-cutoff thresholds for the [place] population. Serum or plasma thyroperoxid ase antibody assay (units/volume)Ordered By: Samantha Khoury on 07-06-2024 TPO Ab Qn 12 [IU]/mL 0-34 [facility] Comment on above: Performed at: [address] [id number] Director: Ezequiel Pickard PhD, Phone: [phone] T4 Free Directon 07-06-2024 T4 FREE DIRECT 1.00 ng/dL Normal 0.76-1.46 [facility] Comment on above: Order Comment: N Performed By: #### L 101.9900, L500.4100, L501.9520, L506.0400, L3100.5475, L3300.6900, L501.6710 ####[facility] [address] [place], [place], [id number] T4 freeOrdered By: Samantha rogers on 07-06-2024 Free T4 [Mass/Vol] 1.00 ng/dL 0.76-1.46 [facility] TPO Ab QnOrdered By: Samantha Khoury on 07-06-2024 Thyroid Peroxidase Antibodies 12 IU/mL 0-34 [facility] Comment on above: Performed at: [place] [id number] Director: Ezequiel Pickard PhD, Phone: [phone] TSH DL <= 0.005 mIU/L QnOrde red By: Samantha Khoury on 07-06-2024 Thyroid Stimulating Hormone (TSH) 0.724 uIU/mL 0.300-4.200 [facility] TSH Qn 0.724 uIU/mL 0.300-4.200 [facility] Thyroid Stim Hormone (TSH)on 07-06-2024 TSH 0.724 uIU/mL Normal 0.300-4.200 [facility] Comment on above: Performed By: #### L 101.9900, L500.4100, L501.9520, L506.0400, L3100.5475, L3300.6900, L501.6710 ####[facility] [address] [place], [address] Triglycerides measurementOrd ered By: Samantha Khoury on 07-06-2024 Triglyceride [Mass/Vol] 47 mg/dL <199 [facility] Comment on above: The drugs N-Acetylcy steine and Metamizole may falsely depress this assay. Normal range: <150 mg/dLBorderline High: 150-199 mg/dLHigh: 200-499 mg/dLVery High: >500 mg/dL Pulmonary Visit Reporton Pulmonary Visit Report [facility] [place] [address] [place] [address] OFFICE VISIT Date of Service: 07/05/24 MR#: [id number] Acct: [id number] Name: BRADLEY KEYS Rep #: [id number] : 1960 Provider: AILYN Chen Age/Sex: 63/M Location: [facility].PM Status: Signed Assessment and Plan Assessment and Plan (1) Obstructive sleep apnea: Status: Chronic Comment: Auto BiPAP min EPAP 7 cmH2O max IPAP 12 cmH2O pressure support 4 cmH2O Plan: Deteriorated, residual AHI actually had increased since I increased this max inspiratory pressure to 15 cmH2O. I will decrease max inspiratory pressure to 12 cH2O. Follow up in 3 months to evaluate response and compliance report. No indication for titration study at this time. (2) Obesity: Status: Chronic Qualifiers: Obesity type: due to excess calories Obesity classification: adult class 1 (BMI 30 - 34.9) Serious obesity comorbidity presence: with serious comorbidity Body mass index: BMI 34.0-34.9 Qualified Code(s): E66.09 - Other obesity due to excess calories; Z68.34 - Body mass index (BMI) 34.0-34.9, adult Plan: Improving, he is on Ozempic. Hgb A1C improving. He may require a retitration with a 20% weight loss or lower pressure support. Having him on Auto Bipap is beneficial for this. (3) Migraine headache: Status: Chronic Qualifiers: Migraine type: unspecified Comment: Botox injections Plan: Will continue to monitor for better control with lower residual AHI. Plan Details Additional Comments: This note was generated with [employer] dictation software. It may contain incorrect words, spelling, and punctuation that were not noted in checking the note before signing. Follow Up: 3 Months (CSM) HPI 1 y fu Chief Complaint: routine follow up HPI Comments Details: This patient presents to the office today for follow-up of his obstructive sleep apnea. He is ambulatory and currently on room air. He has not recently been seen in the ED or urgent care for any respiratory illness. Has not required any antibiotics or prednisone for any breathing problems. If you recall, he is a lifelong never smoker. He is not currently on any inhalers. He denies any difficulty with shortness of breath. He denies any cough, sputum production or hemoptysis. He denies any wheezing, chest tightness, chest pain or palpitations. He also denies any fever, chills or body aches. He feels rested and refreshed with use of his PAP machine. He is not having difficulty with dry mouth. He is not having morning headaches. He denies any difficulty with nodding off to sleep unintentionally. He is not requiring naps. Compliance report for the past 30 days shows 97 % compliance with an average use of 7 hours and 17 minutes per night. Current setting is air curve 10 via auto minimum expiratory pressure of 7 cm of water with maximum inspiratory pressure 15 cmH2O and a pressure support of 4 cm of water. Pressures are typically being utilized at 10.9/7. Residual AHI of 5.9 events per hour. Leaks do not appear to be problematic. Intake Vital Signs 07/04/23 08:31 07/05/24 07:56 Height 5 ft 7 in 5 ft 7 in Weight: 201 lb BMI 31.4 BP 116/73 Blood Pressure Location Lt brachial Position Sitting Respiration 18 Pulse 65 Pulse Source Monitor Temp 97.4 F L Temperature Source Temporal Artery Pulse Oximetry (%) 98 Oxygen Delivery Method room air Intake Visit Reasons: 1 y fu Chief Complaint: SDH Floor Tech Required: No DME Vendor: [employer] Accompanied by: Self Allergies celecoxib (From Celebrex) Allergy (Intermediate, Verified 07/05/24 13:31) Rash Medications ???Medication ???Instructions ???Recorded ???Confirmed ???Type omeprazole 20 mg capsule,delayed 20 mg PO DAILY gerd #30 caps 08/2007/05/24 Rx release cholecalciferol (vitamin D3) 50 2,000 unit PO DAILY supplement 07/05/24 History mcg (2,000 unit) capsule (Vitamin D3) vitamin B complex 1 cap PO BID supplement 12/31/18 0 07/05/24 History zinc 50 mg tablet 50 mg PO DAILY supplement 03/22/20 07/05/24 History calcium 500 mg (as 1 ea PO DAILY supplement 05/09/20 07/05/24 History carbonate)-vitamin D3 15 mcg (600 unit) tablet levothyroxine 100 mcg tablet 100 mcg PO DAILY@0600 thyroid 08/0 07/0507/05/24 History docusate sodium 100 mg capsule 100 mg PO BID PRN Constipation 06/0407/05/24 History (DOK) multivitamin-mineral s-lutein 1 tab PO DAILY 03/29/21 07/05/24 H istory tablet (Cerovite Senior) rimegepant 75 mg disintegrating 75 mg PO ONCE PRN 02/25/22 5 History tablet (Nurtec ODT) atorvastatin 40 mg tablet 40 mg PO QHS cholesterol #90 tabs 03/27/22 07/05/24 Rx citalopram 40 mg tablet 40 mg PO QDAY 07/05/24 07/05/24 Hi story doxycycline (more content not included)... Normal [facility] Antinuclear Antibody, IFAon 06-28-2024 RADHA, IFA Positive Abnormal . [facility] Comment on above: Result Comment: Nega tive <1:80 Borderline 1:80 Positive >1:80 Performed By: #### L 500.4050, L100.0100, L3100.7950, L3000.0375 ####[facility] [address] [place], [address] RADHA-NOTE Comment Normal . [facility] Comment on above: Result Comment: Bessy acevedo Potential Disease Association Homogeneous Systemic Lupus Erythematosus, Drug Induced Systemic Lupus Erythematosus, Chronic Autoimmune hepatitis, Juvenile Idiopathic Arthritis Speckled Sjogren Syndrome, Systemic Lupus Erythematosus, Subacute Cutaneous Lupus, Lupus, Congenital Heart Block, Mixed Connective Tissue Disease, Scleroderma-diffuse, Scleroderma-Autoimmune Myositis Overlap Syndrome, Systemic Lupus Fhrnoodxdblvt-Ntsugukpeox-Yqenszezsv Myositis Overlap Syndrome, Systemic Autoimmune Rheumatic Disease, Undifferentiated Connective Tissue Disease Nucleolar Systemic Sclerosis, Scleroderma-Autoimmune Myositis Overlap Syndrome, Sjogren Syndrome, Raynaud phenomenon, Pulmonary Arterial Hypertension, Systemic Autoimmune Rheumatic Disease, Cancer Centromere Scleroderma-CREST, Limited Cutaneous SSc, Raynaud's Phenomenon, Primary Biliary Cholangitis Nuclear Dot Primary Biliary Cholangitis Nuclear Primary Biliary Cholangitis, Autoimmune Membrane Hepatitis/Liver disease, Systemic Autoimmune Rheumatic Disease, Autoimmune Cytopenias, Linear Scleroderma, Antiphospholipid Syndrome Performed at: [address] [id number] Compensation Vice President: Ezequiel Pickard PhD, Phone: [phone] Performed By: #### L 500.4050, L100.0100, L3100.9550, L3000.0375 ####[facility] [address] [place] [place], [address] CENTRIOLE TNP Normal . [facility] Comment on above: Performed By: #### L 500.4050, L100.0100, L3100.7950, L3000.0375 ####[facility] [address] [place] [place], [address] CENTROMERE PAT. TNP Normal . [facility] Comment on above: Performed By: #### L 500.4050, L100.0100, L3100.7950, L3000.0375 ####[facility] [address] [place], [address] HOMOGENEOUS PAT 1:160 Abnormal . [facility] Comment on above: Result Comment: ICAP nomenclature: AC-1 Performed By: #### L 500.4050, L100.0100, L3100.7950, L3000.0375 ####[facility] [address] [place], [address] MIDBODY 1:160 Abnormal . [facility] Comment on above: Result Comment: ICAP nomenclature: AC-27 Performed By: #### L 500.4050, L100.0100, L3100.7950, L3000.0375 ####[facility] [address] [place], [address] NUCLEAR DOT TNP Normal . [facility] Comment on above: Performed By: #### L 500.4050, L100.0100, L3100.7950, L3000.0375 ####[facility] [address] [place], [address] NUCLEAR MEMBRAN TNP Normal . [facility] Comment on above: Performed By: #### L 500.4050, L100.0100, L3100.7950, L3000.0375 ####[facility] [address] [place], [address] NUCLEOLAR PAT. TNP Normal . [facility] Comment on above: Performed By: #### L 500.4050, L100.0100, L3100.7950, L3000.0375 ####[facility] [address] [place], [address] PNCA TNP Normal . [facility] Comment on above: Performed By: #### L 500.4050, L100.0100, L3100.7950, L3000.0375 ####[facility] [address] [place], [address] SPECKLED PAT. TNP Normal . [facility] Comment on above: Performed By: #### L 500.4050, L100.0100, L3100.7950, L3000.0375 ####[facility] [address] [place], [address] SPINDLE APPARAT TNP Normal . [facility] Comment on above: Performed By: #### L 500.4050, L100.0100, L3100.7950, L3000.0375 ####[facility] [address] [place], [address] Hepatitis Panel Acuteon 04- COMMENT Comment Normal . [facility] Comment on above: Result Comment: Not infected with HCV unless early or acute infection is suspected (which may be delayed in an immunocompromised individual), or other evidence exists to indicate HCV infection. Performed at: - [address] [id number] Compensation Vice President: Ezequiel Pickard PhD, Phone: [phone] Performed By: #### L 500.4050, L100.0100, L3100.7950, L3000.0375 #### [facility] [address] [place], [address] HEP B CORE,IgM Negative Normal Negative [facility] Comment on above: Performed By: #### L 500.4050, L100.0100, L3100.7950, L3000.0375 #### [facility] [address] [place], [place], [address] HEP B SURF AG Negative Normal Negative [facility] Comment on above: Performed By: #### L 500.4050, L100.0100, L3100.7950, L3000.0375 #### [facility] [address] [place], [place], [id number] HEP C VIRUS AB Non-Reactive Normal Non Reactive [facility] Comment on above: Performed By: #### L 500.4050, L100.0100, L3100.7950, L3000.0375 #### [facility] [address] [place], [address] HEPATITIS A-IgM Negative Normal Negative [facility] Comment on above: Result Comment: A ne gative anti-HAV IgM result suggests no recent or current HAV infection. Performed By: #### L 500.4050, L100.0100, L3100.7950, L3000.0375 #### [facility] [address] [place], [place], [id number] Absolute lymphocyte countOrd ered By: Hodan Moseley on 06-24-2024 Lymphocytes Auto (Unsp spec) [#/Vol] 1.43 10*3/uL 0.83-4.51 [facility] Absolute neutrophil countOrd ered By: Hodan Moseley on 06-24-2024 Neutrophils (Bld) [#/Vol] 2.6 10*3/uL 2.0-7.7 [facility] Anion gap in Serum or Plasma Ordered By: Hodan Moseley on 06-24-2024 Anion gap [Moles/Vol] 10 mmol/L 5-15 [facility] Antinuclear antibody (RADHA) a ssayOrdered By: Hodan Moseley on 06-24-2024 Anti-Nuclear Antibody Screen Positive High . [facility] Comment on above: Negative <1:80 Borde rline 1:80 Positive >1:80 Automated lymphocyte count a s percentage of total leukocytesOrdered By: Hodan Moseley on 06-24-2024 Lymphocytes/100 WBC Auto (Unsp spec) 32.9 % - [facility] BUN/creatinine ratioOrdered By: Hodan Moseley on 06-24-2024 Urea nitrogen/Creatinine [Mass ratio] 13.8 mg/mg 10- [facility] Basophil percentageOrdered B y: Hodan Moseley on 06-24-2024 Basophils/100 WBC (Bld) 0.7 % 0-1 [facility] Bilirubin, totalOrdered By: Hodan Moseley on 06-24-2024 Bilirubin [Mass/Vol] 0.54 mg/dL 0.00-1.30 [facility] CBC W/Diff, Automatedon 06-15-2024 Absolute Lymph 1.43 X10 3/uL Normal 0.83-4.51 [facility] Comment on above: Performed By: #### L 500.4050, L100.0100, L3100.7950, L3000.0375 #### [facility] [address] [place], [address] Absolute Neut 2.6 X10 3/uL Normal 2.0-7.7 [facility] Comment on above: Performed By: #### L 500.4050, L100.0100, L3100.7950, L3000.0375 #### [facility] [address] [place], [address] Basophils/100 WBC (Bld) 0.7 % Normal 0-1 [facility] Comment on above: Performed By: #### L 500.4050, L100.0100, L3100.7950, L3000.0375 #### [facility] [address] [place], [address] Eosinophils/100 WBC (Bld) 2.3 % Normal 0-5 [facility] Comment on above: Performed By: #### L 500.4050, L100.0100, L3100.7950, L3000.0375 #### [facility] [address] [place], [address] Erythrocyte distribution width (RBC) [Ratio] 14.3 % Normal 11.6-14.6 [facility] Comment on above: Performed By: #### L 500.4050, L100.0100, L3100.7950, L3000.0375 #### [facility] [address] [place], [address] Hematocrit (Bld) [Volume fraction] 42.9 % Normal 40-54 [facility] Comment on above: Performed By: #### L 500.4050, L100.0100, L3100.7950, L3000.0375 #### [facility] [address] [place], [address] Hemoglobin (Bld) [Mass/Vol] 14.0 g/dL Normal 13.0-16. 5 [facility] Comment on above: Performed By: #### L 500.4050, L100.0100, L3100.7950, L3000.0375 #### [facility] [address] [place], [address] IG% 0.200 Normal 0.0-0.9 [facility] Comment on above: Result Comment: IG% - Immature Granulocytes (promyelocytes, myelocytes and metamyelocytes) > 1% indicates that a LEFT SHIFT is Present. Performed By: #### L 500.4050, L100.0100, L3100.7950, L3000.0375 #### [facility] [address] [place], [address] Lymphocytes/100 WBC (Bld) 32.9 % Normal 19-41 [facility] Comment on above: Performed By: #### L 500.4050, L100.0100, L3100.7950, L3000.0375 #### [facility] [address] [place], [address] MCH (RBC) [Entitic mass] 29.5 pg Normal 27.0-32.0 [facility] Comment on above: Performed By: #### L 500.4050, L100.0100, L3100.7950, L3000.0375 #### [facility] [address] [place], [address] MCHC (RBC) [Mass/Vol] 32.6 g/dL Normal 32-36 [facility] Comment on above: Performed By: #### L 500.4050, L100.0100, L3100.7950, L3000.0375 #### [facility] [address] [place], [address] MCV (RBC) [Entitic vol] 90.5 fL Normal 80-94 [facility] Comment on above: Performed By: #### L 500.4050, L100.0100, L3100.7950, L3000.0375 #### [facility] [address] [place], [address] Monocytes/100 WBC (Bld) 5.1 % Normal 0-10 [facility] Comment on above: Performed By: #### L 500.4050, L100.0100, L3100.7950, L3000.0375 #### [facility] [address] [place], [address] Neutrophils/100 WBC (Bld) 58.8 % Normal 47-70 [facility] Comment on above: Performed By: #### L 500.4050, L100.0100, L3100.7950, L3000.0375 #### [facility] [address] [place], [address] Nucleated RBC (Bld) [#/Vol] 0 10*3/uL Normal 0-5 [facility] Comment on above: Performed By: #### L 500.4050, L100.0100, L3100.7950, L3000.0375 #### [facility] [address] [place], [address] Platelet mean volume (Bld) [Entitic vol] 10.4 fL Normal 6.2-12.0 [facility] Comment on above: Performed By: #### L 500.4050, L100.0100, L3100.7950, L3000.0375 #### [facility] [address] [place], [address] Platelets (Bld) [#/Vol] 163 10*3/uL Normal 150-450 [facility] Comment on above: Performed By: #### L 500.4050, L100.0100, L3100.7950, L3000.0375 #### [facility] [address] [place], [address] RBC (Bld) [#/Vol] 4.74 10*6/uL Normal 4.6-6.2 [facility] Comment on above: Performed By: #### L 500.4050, L100.0100, L3100.7950, L3000.0375 #### [facility] [address] [place], [address] RDW SD 47.8 fl High 35.1-43.9 [facility] Comment on above: Performed By: #### L 500.4050, L100.0100, L3100.7950, L3000.0375 #### [facility] [address] [place], [address] WBC (Bld) [#/Vol] 4.3 10*3/uL Low 4.4-11.0 [facility] Comment on above: Performed By: #### L 500.4050, L100.0100, L3100.7950, L3000.0375 #### [facility] [address] [place], [address] CNOVon 06-24-2024 CNOV Office Visit ([facility]) BRADLEY KEYS ([id number]) 1960 M Date Time Provider Department 06/24/24 1:[address] [facility] During your visit today, we recorded the following information about you: Pulse Blood pressure Weight Height 63/minute 113/77 92 kg 1.727 m Dhara Peck PA-C 06/24/2024 1:27 PM Signed New Onabotulinum Toxin A (BotoxTM) for Migraine Indication: Chronic Intractable Migraine Treatment #: 1 Referral Expiration: 03/16/2025 Number of moderate-severe migraine days/month: 15 Number of mild migraine days/month: 0 Number of headache free days/month: 15 (360 headache-free hours) Migraine severity: 8/10 The patient has been assessed for disorders which could contribute to breathing or swallowing difficulty, and there is no contraindication with PREEMPT Botox. There is no documented allergic reaction/hypersensit ivity to any botulinum toxin and there is no active infection at proposed injection site. HEADACHE SCORES: BP 113/77 (BP Site: Right Arm, BP Position: Sitting, BP Cuff Size: Regular Adult) Pulse 63 Ht 172.7 cm (5' 8) Wt 92 kg (202 lb 11.4 oz) BMI 30.82 kg/m? Patient name: Bradley Keys : 1960 ALLERGIES Allergen Reactions Celebrex [Celecoxib] blisters from head to toe UNIVERSAL PROTOCOL / SAFETY CHECKLIST Procedure: Onabotulinum toxin A for migraine Informed Consent Consent Obtained: Written [place] Protocol A moment to CARE was completed SIGN IN Personnel directly involved with the procedure wore the appropriate PPE Special Equipment: N/A Patient/Surrogate Stated/Verified: Patient name, Date of , Relevant allergies and Intended procedure TIME OUT No relevant labs, photos, and/or imaging studies were applicable for review. Consent documented and matches the intended procedure No correct side/site applicable for marking and visibility. No medications required for procedure. No fire risk assessment and interventions applicable. No implant(s) inserted. SIGN OUT No specimen collected. 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 Tolerated procedure well without complication. Continuing TPM 150mg and nurtec for treatment as well. Will follow up in three months for repeat admin. BOOGIE Day Melanie, PA-C 06/24/2024 12:52 PM Signed Botox Home Instruction: Instruction after botox injection: - If you have any pain or swelling use ice, 20 min on and 20 min off. Do not rub or massage the area for 48 hrs. - If you have any neck stiffness, you may use heat and do stretching exercises. - This should improve over the next 5 days. - If it does not, call our office for further instructions. Referring Provider: DHARA PECK [[id number]] Allergies As of Date: 06/24/2024 Noted Allergy Reaction CELEBREX (CELECOXIB) 05/27/2007 Comments: blisters from head to toe Date Reviewed: 06/24/2024 Reviewed by: Dhara Peck PA-C - Fully Assessed Reason for Visit: Botox Injection [373] Primary Visit Diagnosis:Intractabl e chronic migraine without aura and without status migrainosus [G43.719] Order(s):[] onabotulinum toxin type A 200 Units injection (BOTOX)Disp: Rfl: Prescriptions as of 06/24/2024 - OZEMPIC 1 mg/dose (4 mg/3 mL) pen - topiramate (TOPAMAX) 50 mg tablet Take 1 tablet by mouth two times a day. takes with the 100 mg twice daily - topiramate (TOPAMAX) 100 mg tablet Take 1 tablet by mouth two times a day. takes with the 50 mg twice daily - NURTEC ODT 75 mg disintegrating tablet Take 1 tablet by mouth once daily as needed. - ondansetron orally disintegrating (ZOFRAN ODT) 4 mg disintegrating tablet Dissolve 1 tablet on tongue every 8 hours as needed for nausea/vomiting. - docusate sodium (COLACE) 100 mg capsule Take 1 capsule by mouth two times a day. - metFORMIN (GLUCOPHAGE) 500 mg tablet Take 500 mg by mouth daily with breakfast. - magnesium oxide 400 mg magnesium cap Take 1 capsule by mouth once daily. - gabapentin (NEURONTIN) 300 mg capsule Take 300 mg by mouth three times a day. - acetaminophen (TYLENOL) 325 mg tablet Take 650 mg by mouth every 6 hours as needed. - aspirin 81 mg chewable tablet Take 81 mg by mouth once daily. - blood sug (more content not included)... Normal [facility] BRADLEY KEYS ([id number]) 1960 M Date Time Provider Department 06/24/[address] [facility] During your visit today, we recorded the following information about you: Mandi Finch 06/24/2024 1:30 PM Signed Please call this patient to schedule a 3 month follow up for BOTOX, he saw Dhara Peck today, she will be on maternity leave then. I wasn't sure how to schedule this. His phone number is [phone] Kellie Singh 08/17/2024 2:31 PM Signed Patient has been scheduled. Thank you! Kellie Singh Allergies As of Date: 06/24/2024 Noted Allergy Reaction CELEBREX (CELECOXIB) 05/27/2007 Comments: blisters from head to toe Date Reviewed: 06/24/2024 Reviewed by: Dhara Peck PA-C - Fully Assessed Reason for Visit: Appointment [186] Prescriptions as of 08/17/2024 - OZEMPIC 1 mg/dose (4 mg/3 mL) pen - topiramate (TOPAMAX) 50 mg tablet Take 1 tablet by mouth two times a day. takes with the 100 mg twice daily - topiramate (TOPAMAX) 100 mg tablet Take 1 tablet by mouth two times a day. takes with the 50 mg twice daily - NURTEC ODT 75 mg disintegrating tablet Take 1 tablet by mouth once daily as needed. - ondansetron orally disintegrating (ZOFRAN ODT) 4 mg disintegrating tablet Dissolve 1 tablet on tongue every 8 hours as needed for nausea/vomiting. - docusate sodium (COLACE) 100 mg capsule Take 1 capsule by mouth two times a day. - metFORMIN (GLUCOPHAGE) 500 mg tablet Take 500 mg by mouth daily with breakfast. - magnesium oxide 400 mg magnesium cap Take 1 capsule by mouth once daily. - gabapentin (NEURONTIN) 300 mg capsule Take 300 mg by mouth three times a day. - acetaminophen (TYLENOL) 325 mg tablet Take 650 mg by mouth every 6 hours as needed. - aspirin 81 mg chewable tablet Take 81 mg by mouth once daily. - blood sugar diagnostic (ONETOUCH VERIO TEST STRIPS) test strip Use to test glucose once daily as directed. DX: E11.42, non insulin dependent. - OYSTER SHELL CALCIUM-VITAMIN D 500 mg(1,250mg) -200 unit per tablet Take 1 tablet by mouth once daily. - lancets (ONE TOUCH DELICA) 33 gauge Use to test glucose once daily as directed. DX: E11.42, non insulin dependent. - Blood-Glucose Meter (ONETOUCH VERIO METER) Use to test glucose once daily as directed. DX: E11.42, non insulin dependent. - Zinc 50 mg tab Take 50 mg by mouth once daily. - atorvastatin (LIPITOR) 40 mg tablet Take 40 mg by mouth once daily. - melatonin 3 mg tablet Take 2 tablets by mouth daily at bedtime. - Cholecalciferol, Vitamin D3, 2,000 unit cap Take 2 capsules by mouth once daily. - omeprazole (PRILOSEC) 20 mg capsule Take 20 mg by mouth once daily. - citalopram (CELEXA) 20 mg tablet Take 30 mg by mouth once daily. - levothyroxine (SYNTHROID) 100 mcg tablet Take 100 mcg by mouth daily before breakfast. - cyanocobalamin, vitamin B-12, (VITAMIN B-12 ORAL) Take 500 Units by mouth two times a day. - multivit-min/folic/v it K/lycop (ONE-A-DAY MEN'S MULTIVITAMIN ORAL) Take 1 tablet by mouth once daily. Problem List As Of Date 06/24/2024 Noted Resolved Obstructive sleep apnea [G47.33] 10/16/2009 Controlled type 2 diabetes mellitus with diabet*06/01/2018 Essential hypertension [I10] 06/01/2018 Mixed hyperlipidemia [E78.2] 06/01/2018 Acquired hypothyroidism [E03.9] 06/01/2018 Vitamin D deficiency [E55.9] 06/01/2018 History of gastric bypass [Z98.84] 06/01/2018 Coronary artery disease involving false pass loyola*06/01/2018 Gastroesophageal reflux disease without esophag*06/01/2018 Subdural hemorrhage (HCC) [I62.00] 08/03/2018 Occipital bone fracture (HCC) [S02.119A] 08/03/2018 Fall [W19.XXXA] 08/03/2018 Scalp laceration, initial encounter [S01.01XA] 08/03/2018 Dizziness [R42] 08/08/2018 Class 1 obesity with serious comorbidity and ketan*10/01/2018 Hx of sinus bradycardia [Z86.79] 11/06/2021 Migraine [G43.909] 11/06/2021 DVT of upper extremity (deep vein thrombosis) (*11/06/2021 Anxiety and depression [F41.9, F32.A] 11/06/2021 Carpal tunnel syndrome [G56.00] 11/06/2021 Encounter Status:Closed by MANDI FINCH on 07/26/24 Normal [facility] Carbon dioxide, total [Moles /volume] in Central venous bloodOrdered By: Hodan Moseley on 06-24-2024 CO2 [Moles/Vol] 21.9 mmol/L 21.0-32.0 [facility] Centromere pattern antinucle ar antibody (RADHA) detectionOrdered By: Hodan Moseley on 06-24-2024 Centrosomal nuclear Ab pattern IF Ql (S) [facility] Comment on above: Test not performed Centrosomal nuclear Ab rico tan IF Ql (S)Ordered By: Hodan Moseley on 06-24-2024 Anti-Nuclear Ab Centromere Pattern [facility] Comment on above: Test not performed Chloride assayOrdered By: Fr kevan Moseley on 06-24-2024 Chloride [Moles/Vol] 107 mmol/L 98-108 [facility] Comprehensive Metabolic Prof ilon 06-24-2024 Albumin [Mass/Vol] 4.0 g/dL Normal 3.4-4.8 [facility] Comment on above: Performed By: #### L 500.4050, L100.0100, L3100.7950, L3000.0375 #### [facility] [address] [place], [address] Albumin/Globulin [Mass ratio] 1.8 {ratio} Normal 0.9-2.4 [facility] Comment on above: Performed By: #### L 500.4050, L100.0100, L3100.7950, L3000.0375 #### [facility] [address] [place], [address] ALK PHOS 117 U/L Normal 40-129 [facility] Comment on above: Performed By: #### L 500.4050, L100.0100, L3100.7950, L3000.0375 #### [facility] [address] [place], [address] ALT [Catalytic activity/Vol] 27 U/L Normal <=46 [facility] Comment on above: Performed By: #### L 500.4050, L100.0100, L3100.7950, L3000.0375 #### [facility] [address] [place], [address] AST [Catalytic activity/Vol] 26 U/L Normal <=37 [facility] Comment on above: Performed By: #### L 500.4050, L100.0100, L3100.7950, L3000.0375 #### [facility] [address] [place], [address] Bilirubin [Mass/Vol] 0.54 mg/dL Normal 0.00-1.30 [facility] Comment on above: Performed By: #### L 500.4050, L100.0100, L3100.7950, L3000.0375 #### [facility] [address] [place] [address] [place], [address] BUN/CRE 13.8 RATIO Normal 10-20 [facility] Comment on above: Performed By: #### L 500.4050, L100.0100, L3100.7950, L3000.0375 #### [facility] [address] [place], [address] Calcium [Mass/Vol] 9.2 mg/dL Normal 7.6-11.0 [facility] Comment on above: Performed By: #### L 500.4050, L100.0100, L3100.7950, L3000.0375 #### [facility] [address] [place], [address] Chloride [Moles/Vol] 107 mmol/L Normal 98-108 [facility] Comment on above: Performed By: #### L 500.4050, L100.0100, L3100.7950, L3000.0375 #### [facility] [address] [place], [address] CO2 [Moles/Vol] 21.9 mmol/L Normal 21.0-32.0 [facility] Comment on above: Performed By: #### L 500.4050, L100.0100, L3100.7950, L3000.0375 #### [facility] [address] [place], [address] Creatinine [Mass/Vol] 0.96 mg/dL Normal 0.70-1.20 [facility] Comment on above: Performed By: #### L 500.4050, L100.0100, L3100.7950, L3000.0375 #### [facility] [address] [place], [address] GAP 10 Normal 5-15 [facility] Comment on above: Performed By: #### L 500.4050, L100.0100, L3100.7950, L3000.0375 #### [facility] [address] [place], [address] GFR/1.73 sq M.predicted among non-blacks MDRD (S/P/Bld) [Vol rate/Area] 88 mL/min/{1.73_m2} Normal >60 [facility] Comment on above: Result Comment: mL/m in/1.73m2 CKD-EPI Creatinine Equation (2020) Performed By: #### L 500.4050, L100.0100, L3100.7950, L3000.0375 #### [facility] [address] [place], [address] Globulin (S) [Mass/Vol] 2.2 g/dL Normal 2.2-4.2 [facility] Comment on above: Performed By: #### L 500.4050, L100.0100, L3100.7950, L3000.0375 #### [facility] [address] [place], [address] Glucose [Mass/Vol] 79 mg/dL Normal 70-99 [facility] Comment on above: Performed By: #### L 500.4050, L100.0100, L3100.7950, L3000.0375 #### [facility] [address] [place], [address] Potassium [Moles/Vol] 4.2 mmol/L Normal 3.3-5.1 [facility] Comment on above: Performed By: #### L 500.4050, L100.0100, L3100.7950, L3000.0375 #### [facility] [address] [place], [address] Sodium [Moles/Vol] 139 mmol/L Normal 133-145 [facility] Comment on above: Performed By: #### L 500.4050, L100.0100, L3100.7950, L3000.0375 #### [facility] [address] [place], [address] T PROT 6.2 g/dL Normal 5.9-8.4 [facility] Comment on above: Performed By: #### L 500.4050, L100.0100, L3100.7950, L3000.0375 #### [facility] [address] [place], [address] Urea nitrogen [Mass/Vol] 13 mg/dL Normal 4-19 [facility] Comment on above: Performed By: #### L 500.4050, L100.0100, L3100.7950, L3000.0375 #### [facility] [address] [place], [address] Eosinophil percentageOrdered By: Hodan Moseley on 06-24-2024 Eosinophils/100 WBC (Bld) 2.3 % 0-5 [facility] Erythrocyte distribution wid th (RBC) [Ratio]Ordered By: Hodan Moseley on 06-24-2024 Erythrocyte distribution width (RBC) [Entitic vol] 47.8 fL High 35.1-43.9 [facility] Erythrocyte distribution wid th ratioOrdered By: Hodan Moseley on 06-24-2024 Erythrocyte distribution width (RBC) [Ratio] 14.3 % 11.6-14.6 [facility] Erythrocyte distribution wid th standard deviationOrdered By: Hodan Moseley on 06-24-2024 Erythrocyte distribution width (RBC) [Ratio] 47.8 fl High 35.1-43.9 [facility] GFR/1.73 sq M.predicted ann marie g non-blacks MDRD (S/P/Bld) [Vol rate/Area]Ordered By: Hodan Moseley on 06-24-2024 Estimated GFR (MDRD) Non-Af Amer 88 >60 [facility] Comment on above: mL/min/1.73m2 CKD-EP I Creatinine Equation (2020) Glomerular filtration rate ( GFR) estimation/1.73 sq m using serum, plasma, or whole bOrdered By: Hodan Moseley on 06-24-2024 GFR/1.73 sq M.predicted among non-blacks MDRD (S/P/Bld) [Vol rate/Area] 88 mL/min/{1.73_m2} >60 [facility] Comment on above: mL/min/1.73m2 CKD-EP I Creatinine Equation (2020) HBV surface Ag IA QlOrdered By: Hodan Moseley on 06-24-2024 Hepatitis B Surface Antigen Negative Negative [facility] Hematocrit Auto (Bld) [Volum e fraction]Ordered By: Hodan Moseley on 06-24-2024 Hematocrit (Bld) [Volume fraction] 42.9 % 40-54 [facility] Hemoglobin measurementOrdere d By: Hodan Moseley on 06-24-2024 Hemoglobin (Bld) [Mass/Vol] 14.0 g/dL 13.0-16. 5 [facility] Hepatitis A virus IgM antibo dy assayOrdered By: Hodan Moseley on 06-24-2024 Hepatitis A IgM Antibody Negative Negative [facility] Comment on above: A negative anti-HAV IgM result suggests no recent orcurrent HAV infection. Hepatitis B virus core IgM a ntibody assayOrdered By: Hodan Moseley 06-24-2024 Hepatitis B Core IgM Antibody Negative Negative [facility] Hepatitis C virus antibody a ssayOrdered By: Hodan Moseley on 06-24-2024 Hepatitis C Antibody (EIA) Non-Reactive N on Reactive [facility] Immature granulocytes/100 WB C Auto (Bld)Ordered By: Hodan Moseley 06-24-2024 Immature granulocytes/100 WBC (Bld) 0.200 % 0.0-0.9 [facility] Comment on above: IG% - Immature Granu locytes (promyelocytes, myelocytes and metamyelocytes) > 1% indicates that a LEFT SHIFT is Present. Laboratory - Chemistry and C hemistry - challengeOrdered By: Hodan Moseley on 06-24-2024 AST [Catalytic activity/Vol] 26 U/L <38 [facility] Lymphocytes Auto (Unsp spec) [#/Vol]Ordered By: Hodan Moseley on 06-24-2024 Lymphocytes (Bld) [#/Vol] 1.43 10*3/uL 0.83-4.5 1 [facility] Lymphocytes/100 WBC Auto (Un sp spec)Ordered By: Hodan Moseley on 06-24-2024 Lymphocytes/100 WBC (Bld) 32.9 % 19-41 [facility] MCV (mean corpuscular volume ) determinationOrdered By: Hodan Moseley on 06-24-2024 MCV (RBC) [Entitic vol] 90.5 fL 80-94 [facility] Mean corpuscular hemoglobin (MCH) determinationOrdered By: Hodan Moseley on 06-24-2024 MCH (RBC) [Entitic mass] 29.5 pg 27.0-32.0 [facility] Mean corpuscular hemoglobin concentration (MCHC) determinationOrdered By: Hodan Moseley on 06-24-2024 MCHC (RBC) [Mass/Vol] 32.6 g/dL 32-36 [facility] Mean platelet volume determi nationOrdered By: Hodan Moseley on 06-24-2024 Platelet mean volume (Bld) [Entitic vol] 10.4 fL 6.2-12.0 [facility] Midbody Ab IF (S) [Titer]Ord ered By: Hodan Moseley on 06-24-2024 Anti-Nuclear Ab Midbody Pattern 1:160 High . [facility] Comment on above: ICAP nomenclature: A C-27 Mitotic spindle apparatus Ab [Titer]Ordered By: Hodan Moseley on 06-24-2024 RADHA Spindle Apparatus Pattern [facility] Comment on above: Test not performed Monocyte percentageOrdered B y: Hodan Moseley on 06-24-2024 Monocytes/100 WBC (Bld) 5.1 % 0-10 [facility] Multiple nuclear dots nuclea r IgG pattern IF (S) [Titer]Ordered By: Hodan Moseley on 06-24-2024 [facility] on [facility]: Test not performed Neutrophil percentageOrdered By: Hodan Moseley on 06-24-2024 Neutrophils/100 WBC (Bld) 58.8 % 47-70 [facility] No Panel InformationOrdered By: Hodan Moseley on 06-24-2024 Anti-Nuclear Antibody Comment 2 Comment . [facility] Comment on above: Pattern Potential Di marinae Association Homogeneous Systemic Lupus Erythematosus, Drug Induced Systemic Lupus Erythematosus, Chronic Autoimmune hepatitis, Juvenile Idiopathic Arthritis Speckled Sjogren Syndrome, Systemic Lupus Erythematosus, Subacute Cutaneous Lupus, Lupus, Congenital Heart Block, Mixed Connective Tissue Disease, Scleroderma-diffuse, Scleroderma-Autoimmune Myositis Overlap Syndrome, Systemic Lupus Qzoqnxyythnje-Gtztvvswdwf-Ktzapuuxsu Myositis Overlap Syndrome, Systemic Autoimmune Rheumatic Disease, Undifferentiated Connective Tissue Disease Nucleolar Systemic Sclerosis, Scleroderma-Autoimmune Myositis Overlap Syndrome, Sjogren Syndrome, Raynaud phenomenon, Pulmonary Arterial Hypertension, Systemic Autoimmune Rheumatic Disease, Cancer Centromere Scleroderma-CREST, Limited Cutaneous SSc, Raynaud's Phenomenon, Primary Biliary Cholangitis Nuclear Dot Primary Biliary Cholangitis Nuclear Primary Biliary Cholangitis, AutoimmuneMembrane Hepatitis/Liver disease, Systemic Autoimmune Rheumatic Disease, Autoimmune Cytopenias, Linear Scleroderma, Antiphospholipid Syndrome Performed at: [facility] [address] [id number] Director: Ezequiel Pickard PhD, Phone: [phone] Hepatitis C Antibody Comment Comment . [facility] Comment on above: Not infected with HC V unless early or acute infection issuspected (which may be delayed in an immunocompromisedindividual), or other evidence exists to indicate HCVinfection.Performed at: [facility] [address] [id number] Director: Ezequiel Pickard PhD, Phone: [phone] Nuclear membrane pores nucle ar Ab pattern IF Ql (S)Ordered By: Hodan Moseley on 06-24-2024 RADHA Nuclear Membrane Pattern [facility] Comment on above: Test not performed Nucleated red blood cell per centageOrdered By: Hodan Moseley on 06-24-2024 Nucleated RBC/100 WBC (Bld) [Ratio] 0 % 0-5 [facility] Nucleolar nuclear Ab pattern (S) [Titer]Ordered By: Hodan Moseley on 06-24-2024 Anti-Nuclear Ab Nucleolar Pattern [facility] Comment on above: Test not performed PCNA extractable nuclear Ab IF (S) [Titer]Ordered By: Hodan Moseley on 06-24-2024 Anti-Nuclear Ab PCNA Pattern [facility] Comment on above: Test not performed Platelet countOrdered By: Fr kevan Moseley on 06-24-2024 Platelets (Bld) [#/Vol] 163 10*3/uL 150-450 [facility] Potassium (Unsp spec) [Mass/ Vol]Ordered By: Hodan Moseley on 06-24-2024 Potassium [Moles/Vol] 4.2 mmol/L 3.3-5.1 [facility] Potassium measurement (mass/ volume)Ordered By: Hodan Moseley on 06-24-2024 Potassium (Unsp spec) [Mass/Vol] 4.2 mmol/L 3.3-5.1 [facility] RBC Auto (Bld) [#/Vol]Ordere d By: Hodan Moseley on 06-24-2024 RBC (Bld) [#/Vol] 4.74 10*6/uL 4.6-6.2 [facility] Rim nuclear Ab pattern (S) [ Titer]Ordered By: Hodan Moseley on 06-24-2024 Anti-Nuclear Ab Homogeneous Pattern 1:160 High . [facility] Comment on above: ICAP nomenclature: A C-1 Serum antinuclear antibody ( RADHA) detection with nuclear membrane pores pattern by immOrdered By: Hodan Moseley on 06-24-2024 Nuclear membrane pores nuclear Ab pattern IF Ql (S) [facility] Comment on above: Test not performed Serum centriole antibody tit er by immunofluorescenceOrdered By: Hodan Moseley on 06-24-2024 Anti-Nuclear Ab Centriole Pattern [facility] Comment on above: Test not performed Serum creatinine measurement (mass/volume)Ordered By: Hodan Moseley on 06-24-2024 Creatinine [Mass/Vol] 0.96 mg/dL 0.70-1.20 [facility] Serum globulin measurementOr dered By: Hodan Moseley on 06-24-2024 Globulin (S) [Mass/Vol] 2.2 g/dL 2.2-4.2 [facility] Serum glucose measurement (m ass/volume)Ordered By: Hodan Moseley on 06-24-2024 Glucose [Mass/Vol] 79 mg/dL 70-99 [facility] Serum midbody antibody titer by immunofluorescenceOrdered By: Hodan Moseley on 06-24-2024 Midbody Ab IF (S) [Titer] 1:160 High . [facility] Comment on above: ICAP nomenclature: A C-27 Serum multiple nuclear dot p attern antinuclear IgG antibody (RADHA) titer by immunofluoOrdered By: Hodan Moseley on 06-24-2024 Multiple nuclear dots nuclear IgG pattern IF (S) [Titer] [facility] Comment on above: Test not performed Serum nucleolar nuclear anti body pattern titerOrdered By: Hodan Moseley on 06-24-2024 Nucleolar nuclear Ab pattern (S) [Titer] [facility] Comment on above: Test not performed Serum or plasma alanine palacios otransferase (ALT) measurementOrdered By: Hodan Moseley on 06-24-2024 ALT [Catalytic activity/Vol] 27 U/L <47 [facility] Serum or plasma albumin fran urement (mass/volume)Ordered By: Hodan Moseley on 06-24-2024 Albumin [Mass/Vol] 4.0 g/dL 3.4-4.8 [facility] Serum or plasma albumin/glob ulin mass ratioOrdered By: Hodan Msoeley on 06-24-2024 Albumin/Globulin [Mass ratio] 1.8 {ratio} 0.9-2.4 [facility] Serum or plasma alkaline danielle sphatase measurementOrdered By: Hodan Moseley on 06-24-2024 ALP [Catalytic activity/Vol] 117 U/L 40-129 [facility] Serum or plasma calcium fran urement (mass/volume)Ordered By: Hodan Moseley on 06-24-2024 Calcium [Mass/Vol] 9.2 mg/dL 7.6-11.0 [facility] Serum or plasma hepatitis B virus surface antigen detection by immunoassayOrdered By: Hodan Moseley on 06-24-2024 HBV surface Ag IA Ql Negative Negative [facility] Serum or plasma mitotic spin dle apparatus antibody titerOrdered By: Hodan Moseley on 06-24-2024 Mitotic spindle apparatus Ab [Titer] [facility] Comment on above: Test not performed Serum or plasma urea nitroge n measurement (mass/volume)Ordered By: Hodan Moseley on 06-24-2024 Urea nitrogen [Mass/Vol] 13 mg/dL 4-19 [facility] Serum proliferating cell nuc lear antigen (PCNA) antibody titer by immunofluorescenceOrdered By: Hodan Moseley on 06-24-2024 PCNA extractable nuclear Ab IF (S) [Titer] [facility] Comment on above: Test not performed Serum smooth nuclear envelop e pattern antinuclear antibody (RADHA) titerOrdered By: Hodan Moseley on 06-24-2024 Rim nuclear Ab pattern (S) [Titer] 1:160 High . [facility] Comment on above: ICAP nomenclature: A C-1 Serum speckled pattern antin uclear antibody (RADHA) titerOrdered By: Hodan Moseley on 06-24-2024 Speckled nuclear Ab pattern (S) [Titer] [facility] Comment on above: Test not performed Sodium levelOrdered By: Gallo Moseley on 06-24-2024 Sodium [Moles/Vol] 139 mmol/L 133-145 [facility] Speckled nuclear Ab pattern (S) [Titer]Ordered By: Hodan Moseley on 06-24-2024 Anti-Nuclear Ab Atyp Speckled Bessy [facility] Comment on above: Test not performed Total proteinOrdered By: Loco Moseley on 06-24-2024 Protein [Mass/Vol] 6.2 g/dL 5.9-8.4 [facility] White blood cell (WBC) count Ordered By: Hodan Moseley on 06-24-2024 WBC (Bld) [#/Vol] 4.3 10*3/uL Low 4.4-11.0 [facility] Chest PA and Lateralon 06-03 Chest PA and Lateral [facility] Imaging Services [address] [place] [id number] Chest PA and Lateral MR#: [id number] Acct: [id number] Name: BRADLEY KEYS Rep #: [id number] : 1960 M 63 From: Johnson marcelo MD PCP: LESTER Camacho, [employer] Status: REG ER Study: Chest PA and Lateral Date of Exam: 06/03/24 Exam# [id number] Ordering Dr: Jay Marshall DO PROCEDURE: CHEST PA AND LATERAL 06/03/2024 REASON FOR EXAM: COUGH TECHNIQUE: PA and lateral views were obtained. COMPARISON: Comparison is made with prior study dated April 06, 2022. FINDINGS: The heart is not enlarged. The lungs are clear. No acute abnormality is seen. RAD/Chest PA and Lateral IMPRESSION: No acute abnormality is seen. Reading Location: [facility]-IR-1 CC: [facility] [employer]-C Mandi Sandoval; Dr. Jay Marshall DO Dentistry Teacher: Signed Normal [facility] Emergency Department Summary on 06-03-2024 Emergency Department Summary [facility] System Medical Records Department [address] [place] [address] Emergency Department Summary 06/03/24 MR#: [id number] Acct: [id number] Name: BRADLEY KEYS Rep #: [id number] : 1960 63 From: Jay Marshall DO PCP: LESTER Camacho, [employer]C Status:DEP ER Location: ED HPI History of Present Illness Chief Complaint: Cold Sx Informant: patient Onset/Context/Timing Onset: Weeks (1) Context: Gradual Onset Timing: Continuous Quality: Cannot catch my breath Location: Chest Worsened by: Sleeping Relieved by: BiPAP Narrative Narrative: Patient presents with cough, shortness of breath, sore throat, and rhinorrhea that has been getting worse over the past week. Patient states he feels like he cannot catch his breath. Patient states he has noted some weakness in his legs. Patient states he has been having trouble sleeping over the past week. Patient states his breathing gets better when he wears his BiPAP. Patient states his tested positive for COVID-19 today. Patient denies any fevers or chills. Patient does admit to a mild headache. [facility] Medical History Wears partial dentures Gastric reflux Cardiology follow-up encounter Wears glasses Diabetes Hypothyroidism Non-smoker BiPAP (biphasic positive airway pressure) dependence Hx of cardiovascular stress test Edema Coronary artery disease Hypertension Migraine headache Injury of head and neck Excessive body weight loss Intertrigo Gynecomastia, male Panniculitis, unspecified Abdominal panniculus Vitamin deficiency GERD (gastroesophageal reflux disease) History of pneumonia Neuropathy High triglycerides High cholesterol Hearing problem Frequent headaches Anxiety and depression Back problem Essential hypertension Obstructive sleep apnea Bradycardia Subdural hematoma (08/03/18) Traumatic brain injury (08/03/18) Pressure ulcer of coccygeal region, stage 2 Dizziness Dyspnea on exertion Constipation Hypothyroidism (acquired) Hiatal hernia Preop cardiovascular exam Atherosclerotic heart disease of false pass coronary artery without angina pectoris Chronic diarrhea Obesity Diabetes type 2, uncontrolled Hyperlipidemia Home Medications ???Medication ???Instructions ???Recorded ???Last Taken ???Type omeprazole 20 mg capsule,delayed 20 mg PO DAILY gerd #30 caps 08/2001/24/21 Rx release cholecalciferol (vitamin D3) 50 2,000 unit PO DAILY supplement Unknown History mcg (2,000 unit) capsule (Vitamin D3) vitamin B complex 1 cap PO BID supplement 12/31/18 U nknown History zinc 50 mg tablet 50 mg PO DAILY supplement 03/22/20 Unknown History calcium 500 mg (as 1 ea PO DAILY supplement 05/09/20 Unknown History carbonate)-vitamin D3 15 mcg (600 unit) tablet citalopram 20 mg tablet (Celexa) 20 mg PO DAILY mood 10/18/20 Unkno wn History levothyroxine 100 mcg tablet 100 mcg PO DAILY@0600 thyroid 08/07/0501/24/21 History docusate sodium 100 mg capsule 100 mg PO BID PRN Constipation 06/04 Unknown History (DOK) multivitamin-mineral s-lutein 1 tab PO DAILY 03/29/21 Unknown Hi story tablet (Cerovite Senior) topiramate 50 mg tablet (Topamax) 100 mg PO BID seizures 04/06/21 U nknown History metformin 500 mg tablet 500 mg PO DAILY 09/26/21 Unknown H istory rimegepant 75 mg disintegrating 75 mg PO ONCE PRN 02/25/22 Unknown History tablet (Nurtec ODT) atorvastatin 40 mg tablet 40 mg PO QHS cholesterol #90 tabs 03/27/22 Unknown Rx dulaglutide 0.75 mg/0.5 mL 0.75 mg subcut QWEEK 09/25/22 Unkn own History subcutaneous pen injector (Trulicity) gabapentin 300 mg capsule 300 mg PO QDAY 07/04/23 Unknown Hi story melatonin 3 mg tablet 10 mg PO QHS PRN Sleep 07/04/23 Un known History Allergy/AdvReac Type Severity Reaction Status Date / Time celecoxib (From Celebrex) Allergy Intermediate Rash Verified 06/03/24 14:11 Family History Mother CAD (coronary artery disease) Diabetes History of blood clots Heart disease Hypertension High cholesterol Kidney disease Respiratory disease Seizures CVA (cerebral vascular accident) Father CAD (coronary artery disease) Hypertension Cancer Diabetes Heart disease High cholesterol CVA (cerebral vascular accident) Lung cancer Sister CAD (coronary artery disease) Hypertension Alcoholism Anxiety Suicide attempt Grandfather Diabetes Grandmother Diabetes Surgical History History of cholecystectomy History of bilateral mastectomy History of excision of lesion History of abdominal surgery (07/25/20) Hx of colonoscopy History of gastric bypass (more content not included)... Normal [facility] Influenza virus A and B and SARS-CoV-2 (COVID-19) and Respiratory syncytial virus RNAOrdered By: Jay Marshall on 06-03-2024 SARS-CoV-2 (COVID-19) RNA GABI+probe Ql (Unsp spec) [facility] M100.678on 06-03-2024 M100.678 Pending SARS-CoV-2 (COVID 19) Negative INFLUENZA A Negative INFLUENZA B Negative RSV PCR Negative Normal [facility] Comment on above: Performed By: #### M 100.678 #### [facility] Laboratory [facility] [place], [address] CNOVon 05-11-2024 CNOV Office Visit (NEMLIAM) BRADLEY KEYS ([id number]) 1960 M Date Time Provider Department 05/11/24 1:45 PM DHARA PECK During your visit today, we recorded the following information about you: Pulse Respiration Blood pressure Weight 71/minute 18/minute 114/80 95.6 kg Dhara Peck PA-C 05/11/2024 2:37 PM Signed [facility] Date: May 11, 2024 Patient Name: Bradley Keys Referring physician: No referring provider defined for this encounter. Primary provider: Mandi Sandoval CNP [address] [place] [address] Reason for Evaluation: Headaches Subjective HPI Bradley Keys is a 63 year old right-handed male who presents for evaluation of headaches. Mandi Sandoval NP is the PCP. Chart review: Last seen by Dr. Urias on 02/09/24, due for botox. Seen for chronic migraines. Patient presents for headache evaluation. Previously following with Dr. Urias, receiving Botox every 3 months with significant improvement. Also on topiramate 150 mg twice daily and takes Nurtec for abortive relief. No recent changes, notes that Dr. Urias is retiring so he is transitioning care. Is unsure of his last Botox regimen, on chart review it appears it was on 01-19-2024 so patient is overdue. Patient does believe this is correct. No other new symptoms or concerns. Notes that his headache started about 7 years ago when he fell off of his dining room table onto the concrete floor and sustained a subarachnoid hemorrhage. Was followed by trauma at that time but ever since has had headaches. Notes that prior to the Botox he is having about 3-4 headaches a week but since that time he gets about 3 to 4 months. However, in the room states that she feels he has more headaches. Notes this is just the amount of time he takes Nurtec for abortive relief. Notes that the Nurtec helps dull the pain but does not completely abort it. The only thing that completely takes away his headache is sleeping. Does not member any of the other medications he was on before this. Does report he gets some mild dull headaches when he has issues with his CPAP machine. Current Headache treatment Preventative: TPM 150mg botox Abortive: nurtec Medications effective? sometimes # of doses of abortive medications per month: 4 Previous imaging: MRI pituitary 09/19/21 IMPRESSION: NORMAL MRI OF THE PITUITARY GLAND. NO PATHOLOGIC ENHANCEMENT NOTED. Previous Medications: Zofran MG Gabapentin Nurtec TPM Celexa Metoprolol Lasix Losartan Ajovy Headache Description Onset: 7 years Total headache days per month: 4 per month Total headache attacks per month: 4 per month Headache free days: Yes Duration of attacks: until he sleeps Severity of headaches? Moderate to severe Onset to Peak: gradual Location: left side or both temples. Aura: None Prodrome:none. Accompanying symptoms: photophobia, nausea, lightheaded. Quality:throbbing. Worse with activity: Yes Triggers: none. Cough/sneeze/valsalv a as trigger: no Positional changes: no Most common time of day for headache to begin:anytime. Time missed from work or school: none Risk Factors Visual-Motion sensitivity: Yes Tobacco Use: No Alcohol Use: No Other substances: No Caffeine: Yes, once a week Water- tea with no sugar (iced tea) Neck Pain /Back Pain: No Fibromyalgia: No History of Motor Vehicle Accident: No History of Traumatic Brain Injury and/or Concussion: Yes, 7 years ago History of severe infection: No History of Syncope: No Obesity: Yes, , Body mass index is 32 Eye doc- coming up Family History Migraine or other headaches in the family: No Aneurysms in a first degree relative: No Brain tumors in the family: No Other neurological illness in the family: no ROS Review of Systems CONSTITUTIONAL: No reported fevers, chills, night sweats, or significant unintentional weight loss. EYES: No visual changes indicated. No eye pain or orbital swelling reported. HEENT: No hearing changes or vertiginous symptoms indicated. Chronic tinnitus No history of nose bleeds reported. RESPIRATORY: No reported cough, wheezing and dyspnea. CARDIOVASCULAR: Negative for significant chest pain, and palpitations per report. GI: Negative for significant abdominal discomfort, blood in stools or black stools reported. No recent reported change in bowel habits. : No reported history of incontinence. No dark/cola colored urine reported. MUSCLOSKELETAL: No history of significant joint pain or swelling, or myalgias reported. SKIN: Negative for pertinent lesions, rash, and itching per report. HEMATOLOGY/ONCOLOGY: Negative for reported prolonged bleeding, bruising easily, and swollen nodes. ENDOCRINE: Negative for reported significant cold or h (more content not included)... Normal [facility] 71-CF-Moztavp DOrdered By: Timo Sandoval on 03-23-2024 Vitamin D 25-Hydroxy 44.7 ng/mL [facility] Comment on above: Vitamin D 25(OH) Sta tus Range Deficiency <20 ng/mL (50nmol/L) Insufficiency 20 - 30 ng/mL (50 - 75 nmol/L) Sufficiency 30 - 100 ng/mL (75 - 250 nmol/L) Toxicity >100 ng/mL (>250 nmol/L) Absolute neutrophil countOrd ered By: [facility] Mandi Sandoval on 03-23-2024 Neutrophils (Bld) [#/Vol] 3.3 10*3/uL 2.0-7.7 [facility] Basophil percentageOrdered B y: [facility] Mandi Sandoval on 03-23-2024 Basophils/100 WBC (Bld) 0.9 % 0-1 [facility] CBC W/Diff, Automatedon Absolute Lymph 1.66 X10 3/uL Normal 0.83-4.51 [facility] Comment on above: Performed By: #### L 100.0100, L503.6030, L506.1000, L503.0105 ####[facility] [address] [place], [address] Absolute Neut 3.3 X10 3/uL Normal 2.0-7.7 [facility] Comment on above: Performed By: #### L 100.0100, L503.6030, L506.1000, L503.0105 ####[facility] [address] [place], [address] Basophils/100 WBC (Bld) 0.9 % Normal 0-1 [facility] Comment on above: Performed By: #### L 100.0100, L503.6030, L506.1000, L503.0105 ####[facility] [address] [place], [address] Eosinophils/100 WBC (Bld) 4.8 % Normal 0-5 [facility] Comment on above: Performed By: #### L 100.0100, L503.6030, L506.1000, L503.0105 ####[facility] [address] [place], [address] Erythrocyte distribution width (RBC) [Ratio] 13.8 % Normal 11.6-14.6 [facility] Comment on above: Performed By: #### L 100.0100, L503.6030, L506.1000, L503.0105 ####[facility] [address] [place], [address] Hematocrit (Bld) [Volume fraction] 40.1 % Normal 40-54 [facility] Comment on above: Performed By: #### L 100.0100, L503.6030, L506.1000, L503.0105 ####[facility] [address] [place], [address] Hemoglobin (Bld) [Mass/Vol] 12.8 g/dL Low 13.0-16. 5 [facility] Comment on above: Performed By: #### L 100.0100, L503.6030, L506.1000, L503.0105 ####[facility] [address] [place], [address] IG% 0.400 Normal 0.0-0.9 [facility] Comment on above: Result Comment: IG% - Immature Granulocytes (promyelocytes, myelocytes and metamyelocytes) > 1% indicates that a LEFT SHIFT is Present. Performed By: #### L 100.0100, L503.6030, L506.1000, L503.0105 ####[facility] [address] [place], [address] Lymphocytes/100 WBC (Bld) 29.7 % Normal 19-41 [facility] Comment on above: Performed By: #### L 100.0100, L503.6030, L506.1000, L503.0105 ####[facility] [address] [place], [address] MCH (RBC) [Entitic mass] 29.4 pg Normal 27.0-32.0 [facility] Comment on above: Performed By: #### L 100.0100, L503.6030, L506.1000, L503.0105 ####[facility] [address] [place], [address] MCHC (RBC) [Mass/Vol] 31.9 g/dL Low 32-36 [facility] Comment on above: Performed By: #### L 100.0100, L503.6030, L506.1000, L503.0105 ####[facility] [address] [place], [address] MCV (RBC) [Entitic vol] 92.2 fL Normal 80-94 [facility] Comment on above: Performed By: #### L 100.0100, L503.6030, L506.1000, L503.0105 ####[facility] [address] [place], [address] Monocytes/100 WBC (Bld) 6.1 % Normal 0-10 [facility] Comment on above: Performed By: #### L 100.0100, L503.6030, L506.1000, L503.0105 ####[facility] [address] [place], [address] Neutrophils/100 WBC (Bld) 58.1 % Normal 47-70 [facility] Comment on above: Performed By: #### L 100.0100, L503.6030, L506.1000, L503.0105 ####[facility] [address] [place], [address] Nucleated RBC (Bld) [#/Vol] 0 10*3/uL Normal 0-5 [facility] Comment on above: Performed By: #### L 100.0100, L503.6030, L506.1000, L503.0105 ####[facility] [address] [place], [address] Platelet mean volume (Bld) [Entitic vol] 11.8 fL Normal 6.2-12.0 [facility] Comment on above: Performed By: #### L 100.0100, L503.6030, L506.1000, L503.0105 ####[facility] [address] [place], [address] Platelets (Bld) [#/Vol] 179 10*3/uL Normal 150-450 [facility] Comment on above: Performed By: #### L 100.0100, L503.6030, L506.1000, L503.0105 ####[facility] [address] [place], [address] RBC (Bld) [#/Vol] 4.35 10*6/uL Low 4.6-6.2 [facility] Comment on above: Performed By: #### L 100.0100, L503.6030, L506.1000, L503.0105 ####[facility] [address] [place], [address] RDW SD 46.3 fl High 35.1-43.9 [facility] Comment on above: Performed By: #### L 100.0100, L503.6030, L506.1000, L503.0105 ####[facility] [address] [place], [address] WBC (Bld) [#/Vol] 5.6 10*3/uL Normal 4.4-11.0 [facility] Comment on above: Performed By: #### L 100.0100, L503.6030, L506.1000, L503.0105 ####[facility] [address] [place], [address] Eosinophil percentageOrdered By: TIERRA Mandi Sandoval on 03-23-2024 Eosinophils/100 WBC (Bld) 4.8 % 0-5 [facility] Erythrocyte distribution wid th ratioOrdered By: LESTER Sandoval on 03-23-2024 Erythrocyte distribution width (RBC) [Ratio] 13.8 % 11.6-14.6 [facility] Erythrocyte distribution wid th standard deviationOrdered By: [facility] Mandi Sandoval on 03-23-2024 Erythrocyte distribution width (RBC) [Entitic vol] 46.3 fL High 35.1-43.9 [facility] Hematocrit Auto (Bld) [Volum e fraction]Ordered By: [facility] Mandi Hoang on 03-23-2024 Hematocrit (Bld) [Volume fraction] 40.1 % 40-54 [facility] Hemoglobin measurementOrdere d By: [facility] Mandi Hoang on 03-23-2024 Hemoglobin (Bld) [Mass/Vol] 12.8 g/dL Low 13.0-16. 5 [facility] Immature granulocytes/100 WB C Auto (Bld)Ordered By: [facility] Mandi Hoang on 03-23-2024 Immature granulocytes/100 WBC (Bld) 0.400 % 0.0-0.9 [facility] Comment on above: IG% - Immature Granu locytes (promyelocytes, myelocytes and metamyelocytes) > 1% indicates that a LEFT SHIFT is Present. Iron (Unsp spec) [Mass/Mass] Ordered By: [facility] Mandi Hoang on 03-23-2024 Iron [Mass/Vol] 74 ug/dL 65-175 [facility] Iron saturation [Mass fracti on]Ordered By: [facility] Mandi Hoang on 03-23-2024 Iron Saturation 24.3 % 15.0-55.0 [facility] Iron+Iron Binding Capacityon 03-23-2024 Iron [Mass/Vol] 74 ug/dL Normal 65-175 [facility] Comment on above: Performed By: #### L 100.0100, L503.6030, L506.1000, L503.0105 ####[facility] [facility] [address] [place], [address] IRON SATURATION 24.3 Normal 15.0-55.0 [facility] Comment on above: Performed By: #### L 100.0100, L503.6030, L506.1000, L503.0105 ####[facility] [address] [place], [address] TIBC 304 ug/dL Normal 250-450 [facility] Comment on above: Performed By: #### L 100.0100, L503.6030, L506.1000, L503.0105 ####[facility] [id number] [place], [address] Lymphocytes Auto (Unsp spec) [#/Vol]Ordered By: [facility] Mandi Sandoval on 03-23-2024 Lymphocytes (Bld) [#/Vol] 1.66 10*3/uL 0.83-4.5 1 [facility] Lymphocytes/100 WBC Auto (Un sp spec)Ordered By: [facility] Mandi Sandoval on 03-23-2024 Lymphocytes/100 WBC (Bld) 29.7 % 19-41 [facility] MCV (mean corpuscular volume ) determinationOrdered By: [facility] Mandi Sandoval on 03-23-2024 MCV (RBC) [Entitic vol] 92.2 fL 80-94 [facility] Mean corpuscular hemoglobin (MCH) determinationOrdered By: [facility] Mandi Sandoval on 03-23-2024 MCH (RBC) [Entitic mass] 29.4 pg 27.0-32.0 [facility] Mean corpuscular hemoglobin concentration (MCHC) determinationOrdered By: [facility] Mandi Sandoval on 03-23-2024 MCHC (RBC) [Mass/Vol] 31.9 g/dL Low 32-36 [facility] Mean platelet volume determi nationOrdered By: [facility] Mandi Sandoval on 03-23-2024 Platelet mean volume (Bld) [Entitic vol] 11.8 fL 6.2-12.0 [facility] Monocyte percentageOrdered B y: [facility] Mandi Sandoval on 03-23-2024 Monocytes/100 WBC (Bld) 6.1 % 0-10 [facility] Neutrophil percentageOrdered By: [facility] Mandi Sandoval on 03-23-2024 Neutrophils/100 WBC (Bld) 58.1 % 47-70 [facility] Nucleated red blood cell per centageOrdered By: [facility] Mandi Sandoval on 03-23-2024 Nucleated RBC/100 WBC (Bld) [Ratio] 0 % 0-5 [facility] Platelet countOrdered By: [facility] Mandi Hoang on 03-23-2024 Platelets (Bld) [#/Vol] 179 10*3/uL 150-450 [facility] RBC Auto (Bld) [#/Vol]Ordere d By: [facility] Mandi Hoang on 03-23-2024 RBC (Bld) [#/Vol] 4.35 10*6/uL Low 4.6-6.2 [facility] TIBCOrdered By: [facility] Mandi Sandoval on 03-23-2024 Total Iron Binding Capacity 304 ug/dL 250-450 [facility] Vitamin B12on 03-23-2024 Cobalamin (Vitamin B12) [Mass/Vol] 565 pg/mL Normal [facility] Comment on above: Performed By: #### L 100.0100, L503.6030, L506.1000, L503.0105 ####[facility] [address] [place], [place], [id number] Vitamin B12 measurementOrder ed By: [facility] Sandoval on 03-23-2024 Cobalamin (Vitamin B12) [Mass/Vol] 565 pg/mL - [facility] Vitamin D,25 Hydroxyon 03-23 Vitamin D 25-OH 44.7 ng/mL Normal [facility] Comment on above: Result Comment: Jacqueline min D 25(OH) Status Range Deficiency <20 ng/mL (50nmol/L) Insufficiency 20 - 30 ng/mL (50 - 75 nmol/L) Sufficiency 30 - 100 ng/mL (75 - 250 nmol/L) Toxicity >100 ng/mL (>250 nmol/L) Performed By: #### L 100.0100, L503.6030, L506.1000, L503.0105 ####[facility] [id number] [place], [place], [address] White blood cell (WBC) count Ordered By: [facility] Mandi Sandoval on 03-23-2024 WBC (Bld) [#/Vol] 5.6 10*3/uL 4.4-11.0 [facility]ORM[facility] BRADLEY KEYS ([id number]) 1960 Date Time Provider Department 03/05/24 2:45 PM TINO ZULETA ORMDRG During your visit today, we recorded the following information about you: Tino Zuleta MD 03/08/2024 7:47 AM Signed PAIN EVALUATION No data found in the last 1 encounters. Encounter Diagnosis ICD-10-CM 1. Adhesive capsulitis of left shoulder M75.02 Bradley Keys returns following left shoulder arthroscopic capsular release. He has done very well and has no pain most of the time. Has been stretching the shoulder on a daily basis and feels this has gone well. He is doing stretching at home on his own. I examined his left shoulder today. He has no edema and his incisions are healed. His range of motion is improved. He has 140 degrees of active forward elevation with a firm endpoint. Side abduction 120 degrees. External rotation is 60 degrees with the arm at the side and in abduction. Internal rotation behind the back to the mid lumbar level. Good strength with rotator cuff testing. PLAN: We discussed his ongoing recovery. He is doing very well and actually has better motion of the left shoulder than he does in the right shoulder. He should continue daily stretching. I asked him to also begin stretching the right shoulder again to avoid any recurrent stiffness. Return to see me as needed. Tino Zuleta MD Shoulder AND Elbow Surgeon Department of Orthopaedic Surgery [facility] Allergies As of Date: 03/05/2024 Noted Allergy Reaction CELEBREX (CELECOXIB) 05/27/2007 Comments: blisters from head to toe Date Reviewed: 02/03/2024 Reviewed by: Liliam Garay LPN - Fully Assessed Reason for Visit: Established Patient [175] Follow Up [171] Post Op [174] Primary Visit Diagnosis:Adhesive capsulitis of left shoulder [M75.02] Prescriptions as of 03/08/2024 - ondansetron orally disintegrating (ZOFRAN ODT) 4 mg disintegrating tablet Dissolve 1 tablet on tongue every 8 hours as needed for nausea/vomiting. - docusate sodium (COLACE) 100 mg capsule Take 1 capsule by mouth two times a day. - metFORMIN (GLUCOPHAGE) 500 mg tablet Take 500 mg by mouth daily with breakfast. - magnesium oxide 400 mg magnesium cap Take 1 capsule by mouth once daily. - gabapentin (NEURONTIN) 300 mg capsule Take 300 mg by mouth three times a day. - acetaminophen (TYLENOL) 325 mg tablet Take 650 mg by mouth every 6 hours as needed. - NURTEC ODT 75 mg disintegrating tablet TAKE 1 TABLET BY MOUTH DAILY NEEDED for onset OF migrainse, no more than 1 (ONE) dose in 24 hours DIRECTED FOR 30 DAYS - aspirin 81 mg chewable tablet Take 81 mg by mouth once daily. - blood sugar diagnostic (ONETOUCH VERIO TEST STRIPS) test strip Use to test glucose once daily as directed. DX: E11.42, non insulin dependent. - OYSTER SHELL CALCIUM-VITAMIN D 500 mg(1,250mg) -200 unit per tablet Take 1 tablet by mouth once daily. - lancets (ONE TOUCH DELICA) 33 gauge Use to test glucose once daily as directed. DX: E11.42, non insulin dependent. - Blood-Glucose Meter (ONETOUCH VERIO METER) Use to test glucose once daily as directed. DX: E11.42, non insulin dependent. - Zinc 50 mg tab Take 50 mg by mouth once daily. - topiramate (TOPAMAX) 50 mg tablet Take 50 mg by mouth twice daily. - atorvastatin (LIPITOR) 40 mg tablet Take 40 mg by mouth once daily. - melatonin 3 mg tablet Take 2 tablets by mouth daily at bedtime. - Cholecalciferol, Vitamin D3, 2,000 unit cap Take 2 capsules by mouth once daily. - omeprazole (PRILOSEC) 20 mg capsule Take 20 mg by mouth once daily. - citalopram (CELEXA) 20 mg tablet Take 30 mg by mouth once daily. - levothyroxine (SYNTHROID) 100 mcg tablet Take 100 mcg by mouth daily before breakfast. - cyanocobalamin, vitamin B-12, (VITAMIN B-12 ORAL) Take 500 Units by mouth two times a day. - multivit-min/folic/v it K/lycop (ONE-A-DAY MEN'S MULTIVITAMIN ORAL) Take 1 tablet by mouth once daily. Problem List As Of Date 03/05/2024 Noted Resolved Obstructive sleep apnea [G47.33] 10/16/2009 Controlled type 2 diabetes mellitus with diabet*06/01/2018 Essential hypertension [I10] 06/01/2018 Mixed hyperlipidemia [E78.2] 06/01/2018 Acquired hypothyroidism [E03.9] 06/01/2018 Vitamin D deficiency [E55.9] 06/01/2018 History of gastric bypass [Z98.84] 06/01/2018 Coronary artery disease involving false pass loyola*06/01/2018 Gastroesophageal reflux disease without esophag*06/01/2018 Subdural hemorrhage (HCC) [I62.00] 08/03/2018 Occipital bone fracture (HCC) [S02.119A] 08/03/2018 Fall [W19.XXXA] 08/03/2018 Scalp laceration, initial encounter [S01.01XA] 08/03/2018 Dizziness [R42] 08/08/2018 Class 1 obesity with serious comorbidity and ketan*10/01/2018 Hx of sinus bradycar (more content not included)... Normal [facility] Natalya 02-05-2024 CNPN Telephone (KAYLIN) BRADLEY KEYS ([id number]) 1960 M Date Time Provider Department 02/05/24 TINO ZULETA During your visit today, we recorded the following information about you: Micha Coles 02/05/2024 6:57 AM Signed Patient is on the wait list for the following: - Shoulder - Left dos 01/26/24 pt needs post op 4wks out from today, please assist w/ scheduling [phone], pm preferred Please call to set up 2nd Post Op appointment with . Kajal Darleen 02/05/2024 9:04 AM Signed Patient has been scheduled Allergies As of Date: 02/05/2024 Noted Allergy Reaction CELEBREX (CELECOXIB) 05/27/2007 Comments: blisters from head to toe Date Reviewed: 02/03/2024 Reviewed by: Liliam Garay LPN - Fully Assessed Reason for Visit: Post Op [174] Appointment [186] Prescriptions as of 02/05/2024 - ondansetron orally disintegrating (ZOFRAN ODT) 4 mg disintegrating tablet Dissolve 1 tablet on tongue every 8 hours as needed for nausea/vomiting. - docusate sodium (COLACE) 100 mg capsule Take 1 capsule by mouth two times a day. - metFORMIN (GLUCOPHAGE) 500 mg tablet Take 500 mg by mouth daily with breakfast. - magnesium oxide 400 mg magnesium cap Take 1 capsule by mouth once daily. - gabapentin (NEURONTIN) 300 mg capsule Take 300 mg by mouth three times a day. - acetaminophen (TYLENOL) 325 mg tablet Take 650 mg by mouth every 6 hours as needed. - NURTEC ODT 75 mg disintegrating tablet TAKE 1 TABLET BY MOUTH DAILY NEEDED for onset OF migrainse, no more than 1 (ONE) dose in 24 hours DIRECTED FOR 30 DAYS - aspirin 81 mg chewable tablet Take 81 mg by mouth once daily. - blood sugar diagnostic (ONETOUCH VERIO TEST STRIPS) test strip Use to test glucose once daily as directed. DX: E11.42, non insulin dependent. - OYSTER SHELL CALCIUM-VITAMIN D 500 mg(1,250mg) -200 unit per tablet Take 1 tablet by mouth once daily. - lancets (ONE TOUCH DELICA) 33 gauge Use to test glucose once daily as directed. DX: E11.42, non insulin dependent. - Blood-Glucose Meter (ONETOUCH VERIO METER) Use to test glucose once daily as directed. DX: E11.42, non insulin dependent. - Zinc 50 mg tab Take 50 mg by mouth once daily. - topiramate (TOPAMAX) 50 mg tablet Take 50 mg by mouth twice daily. - atorvastatin (LIPITOR) 40 mg tablet Take 40 mg by mouth once daily. - melatonin 3 mg tablet Take 2 tablets by mouth daily at bedtime. - Cholecalciferol, Vitamin D3, 2,000 unit cap Take 2 capsules by mouth once daily. - omeprazole (PRILOSEC) 20 mg capsule Take 20 mg by mouth once daily. - citalopram (CELEXA) 20 mg tablet Take 30 mg by mouth once daily. - levothyroxine (SYNTHROID) 100 mcg tablet Take 100 mcg by mouth daily before breakfast. - cyanocobalamin, vitamin B-12, (VITAMIN B-12 ORAL) Take 500 Units by mouth two times a day. - multivit-min/folic/v it K/lycop (ONE-A-DAY MEN'S MULTIVITAMIN ORAL) Take 1 tablet by mouth once daily. Problem List As Of Date 02/05/2024 Noted Resolved Obstructive sleep apnea [G47.33] 10/16/2009 Controlled type 2 diabetes mellitus with diabet*06/01/2018 Essential hypertension [I10] 06/01/2018 Mixed hyperlipidemia [E78.2] 06/01/2018 Acquired hypothyroidism [E03.9] 06/01/2018 Vitamin D deficiency [E55.9] 06/01/2018 History of gastric bypass [Z98.84] 06/01/2018 Coronary artery disease involving false pass loyola*06/01/2018 Gastroesophageal reflux disease without esophag*06/01/2018 Subdural hemorrhage (HCC) [I62.00] 08/03/2018 Occipital bone fracture (HCC) [S02.119A] 08/03/2018 Fall [W19.XXXA] 08/03/2018 Scalp laceration, initial encounter [S01.01XA] 08/03/2018 Dizziness [R42] 08/08/2018 Class 1 obesity with serious comorbidity and ketan*10/01/2018 Hx of sinus bradycardia [Z86.79] 11/06/2021 Migraine [G43.909] 11/06/2021 DVT of upper extremity (deep vein thrombosis) (*11/06/2021 Anxiety and depression [F41.9, F32.A] 11/06/2021 Carpal tunnel syndrome [G56.00] 11/06/2021 Encounter Status:Closed by MICHA COLES on 02/05/24 Normal [facility] CNOVon 02-03-2024 CNOV Office Visit (AGHWW1) BRADLEY KEYS ([id number]) 1960 M Date Time Provider Department 02/03/24 2:45 PM DESIREE GILL AGHWW1 During your visit today, we recorded the following information about you: Respiration Weight Height 20/minute 102.1 kg 1.727 m Desiree Gill PA-C 02/04/2024 10:40 AM Signed Desiree Gill PA-C Department of Orthopaedics February 04, 2024 SURGERY: Left shoulder arthroscopic lysis of adhesions with acromioplasty, manipulation under anesthesia SUBJECTIVE: Patient returns to clinic now 2 weeks status post the above procedure. Out of sling and has been doing PT. Exam: Examination of shoulder reveals healing portal sites without erythema or drainage. Active forward elevation to 140. ER 10 with pain. IR sacrum with pain. ASSESSMENT: M75.02 Adhesive capsulitis of left shoulder (primary encounter diagnosis) Z98.890 S/P shoulder surgery SUMMARY/PLAN: Continue aggressive stretching. Recheck motion in 4-6 weeks. Desiree Gill PA-C Allergies As of Date: 02/03/2024 Noted Allergy Reaction CELEBREX (CELECOXIB) 05/27/2007 Comments: blisters from head to toe Date Reviewed: 02/03/2024 Reviewed by: Liliam Garay LPN - Fully Assessed Reason for Visit: Post Op [174] Pain [78] Primary Visit Diagnosis:Adhesive capsulitis of left shoulder [M75.02] Other Visit Diagnosis:S/P shoulder surgery [Z98.890] Prescriptions as of 02/04/2024 - ondansetron orally disintegrating (ZOFRAN ODT) 4 mg disintegrating tablet Dissolve 1 tablet on tongue every 8 hours as needed for nausea/vomiting. - docusate sodium (COLACE) 100 mg capsule Take 1 capsule by mouth two times a day. - metFORMIN (GLUCOPHAGE) 500 mg tablet Take 500 mg by mouth daily with breakfast. - magnesium oxide 400 mg magnesium cap Take 1 capsule by mouth once daily. - gabapentin (NEURONTIN) 300 mg capsule Take 300 mg by mouth three times a day. - acetaminophen (TYLENOL) 325 mg tablet Take 650 mg by mouth every 6 hours as needed. - NURTEC ODT 75 mg disintegrating tablet TAKE 1 TABLET BY MOUTH DAILY NEEDED for onset OF migrainse, no more than 1 (ONE) dose in 24 hours DIRECTED FOR 30 DAYS - aspirin 81 mg chewable tablet Take 81 mg by mouth once daily. - blood sugar diagnostic (ONETOUCH VERIO TEST STRIPS) test strip Use to test glucose once daily as directed. DX: E11.42, non insulin dependent. - OYSTER SHELL CALCIUM-VITAMIN D 500 mg(1,250mg) -200 unit per tablet Take 1 tablet by mouth once daily. - lancets (ONE TOUCH DELICA) 33 gauge Use to test glucose once daily as directed. DX: E11.42, non insulin dependent. - Blood-Glucose Meter (ONETOUCH VERIO METER) Use to test glucose once daily as directed. DX: E11.42, non insulin dependent. - Zinc 50 mg tab Take 50 mg by mouth once daily. - topiramate (TOPAMAX) 50 mg tablet Take 50 mg by mouth twice daily. - atorvastatin (LIPITOR) 40 mg tablet Take 40 mg by mouth once daily. - melatonin 3 mg tablet Take 2 tablets by mouth daily at bedtime. - Cholecalciferol, Vitamin D3, 2,000 unit cap Take 2 capsules by mouth once daily. - omeprazole (PRILOSEC) 20 mg capsule Take 20 mg by mouth once daily. - citalopram (CELEXA) 20 mg tablet Take 30 mg by mouth once daily. - levothyroxine (SYNTHROID) 100 mcg tablet Take 100 mcg by mouth daily before breakfast. - cyanocobalamin, vitamin B-12, (VITAMIN B-12 ORAL) Take 500 Units by mouth two times a day. - multivit-min/folic/v it K/lycop (ONE-A-DAY MEN'S MULTIVITAMIN ORAL) Take 1 tablet by mouth once daily. Problem List As Of Date 02/03/2024 Noted Resolved Obstructive sleep apnea [G47.33] 10/16/2009 Controlled type 2 diabetes mellitus with diabet*06/01/2018 Essential hypertension [I10] 06/01/2018 Mixed hyperlipidemia [E78.2] 06/01/2018 Acquired hypothyroidism [E03.9] 06/01/2018 Vitamin D deficiency [E55.9] 06/01/2018 History of gastric bypass [Z98.84] 06/01/2018 Coronary artery disease involving false pass loyola*06/01/2018 Gastroesophageal reflux disease without esophag*06/01/2018 Subdural hemorrhage (HCC) [I62.00] 08/03/2018 Occipital bone fracture (HCC) [S02.119A] 08/03/2018 Fall [W19.XXXA] 08/03/2018 Scalp laceration, initial encounter [S01.01XA] 08/03/2018 Dizziness [R42] 08/08/2018 Class 1 obesity with serious comorbidity and ketan*10/01/2018 Hx of sinus bradycardia [Z86.79] 11/06/2021 Migraine [G43.909] 11/06/2021 DVT of upper extremity (deep vein thrombosis) (*11/06/2021 Anxiety and depression [F41.9, F32.A] 11/06/2021 Carpal tunnel syndrome [G56.00] 11/06/2021 Encounter Status:Closed by DESIREE GILL on 02/04/24 [facility] Natalya 01-28-2024 CNPN Telephone (AGPOB1) BRADLEY KEYS ([id number]) 1960 M Date Time Provider Department 01/28/[address] [facility] During your visit today, we recorded the following information about you: Anisa [place] Gisela Phillips 01/28/2024 2:59 PM Signed ----- Message from Bonnie Atkins sent at 01/28/2024 2:47 PM EST ----- Regarding: Orthopedics /Tino Hidalgo/ wanted to inform provider he did not go to physical therapy today due to being ill Subject Line Format: Orthopedics / [Provider Name or Open AND Body Part] / [Issue] Patient has been identified by name and Date of (Y/N): y Patient: Bradley Keys Date of : 1960 Previous Provider Seen: Tino Sousa Body Part(s) Identified: L shoulder Diagnosis/Reason For Visit: post op/physical therapy Reason for the call/escalation: wanted to inform provider he did not go to physical therapy today due to being ill If reason for call/escalation is discharge from ED/ER or Hospital, which facility was the patient seen at: n/a Was an appointment scheduled (Y/N): no Person calling if other than patient: Isabel(spouse) Return call to if other than patient: Isabel Best contact number: [phone] Thank you, Bonnie Manning January 28, 2024 2:47 PM Allergies As of Date: 01/28/2024 Noted Allergy Reaction CELEBREX (CELECOXIB) 05/27/2007 Comments: blisters from head to toe Date Reviewed: 01/26/2024 Reviewed by: Richard Garland RN - Fully Assessed Reason for Visit: Patient Update [1234] Cmt: Missed PT/pt ill Prescriptions as of 01/28/2024 - oxyCODONE-acetaminop hen (PERCOCET) 5-325 mg tablet Take 1-2 tablets by mouth every 4 hours as needed for pain for up to 3 days. - ondansetron orally disintegrating (ZOFRAN ODT) 4 mg disintegrating tablet Dissolve 1 tablet on tongue every 8 hours as needed for nausea/vomiting. - docusate sodium (COLACE) 100 mg capsule Take 1 capsule by mouth two times a day. - metFORMIN (GLUCOPHAGE) 500 mg tablet Take 500 mg by mouth daily with breakfast. - magnesium oxide 400 mg magnesium cap Take 1 capsule by mouth once daily. - gabapentin (NEURONTIN) 300 mg capsule Take 300 mg by mouth three times a day. - acetaminophen (TYLENOL) 325 mg tablet Take 650 mg by mouth every 6 hours as needed. - NURTEC ODT 75 mg disintegrating tablet TAKE 1 TABLET BY MOUTH DAILY NEEDED for onset OF migrainse, no more than 1 (ONE) dose in 24 hours DIRECTED FOR 30 DAYS - aspirin 81 mg chewable tablet Take 81 mg by mouth once daily. - blood sugar diagnostic (ONETOUCH VERIO TEST STRIPS) test strip Use to test glucose once daily as directed. DX: E11.42, non insulin dependent. - OYSTER SHELL CALCIUM-VITAMIN D 500 mg(1,250mg) -200 unit per tablet Take 1 tablet by mouth once daily. - lancets (ONE TOUCH DELICA) 33 gauge Use to test glucose once daily as directed. DX: E11.42, non insulin dependent. - Blood-Glucose Meter (ONETOUCH VERIO METER) Use to test glucose once daily as directed. DX: E11.42, non insulin dependent. - Zinc 50 mg tab Take 50 mg by mouth once daily. - topiramate (TOPAMAX) 50 mg tablet Take 50 mg by mouth twice daily. - atorvastatin (LIPITOR) 40 mg tablet Take 40 mg by mouth once daily. - melatonin 3 mg tablet Take 2 tablets by mouth daily at bedtime. - Cholecalciferol, Vitamin D3, 2,000 unit cap Take 2 capsules by mouth once daily. - omeprazole (PRILOSEC) 20 mg capsule Take 20 mg by mouth once daily. - citalopram (CELEXA) 20 mg tablet Take 30 mg by mouth once daily. - levothyroxine (SYNTHROID) 100 mcg tablet Take 100 mcg by mouth daily before breakfast. - cyanocobalamin, vitamin B-12, (VITAMIN B-12 ORAL) Take 500 Units by mouth two times a day. - multivit-min/folic/v it K/lycop (ONE-A-DAY MEN'S MULTIVITAMIN ORAL) Take 1 tablet by mouth once daily. Problem List As Of Date 01/28/2024 Noted Resolved Obstructive sleep apnea [G47.33] 10/16/2009 Controlled type 2 diabetes mellitus with diabet*06/01/2018 Essential hypertension [I10] 06/01/2018 Mixed hyperlipidemia [E78.2] 06/01/2018 Acquired hypothyroidism [E03.9] 06/01/2018 Vitamin D deficiency [E55.9] 06/01/2018 History of gastric bypass [Z98.84] 06/01/2018 Coronary artery disease involving false pass loyola*06/01/2018 Gastroesophageal reflux disease without esophag*06/01/2018 Subdural hemorrhage (HCC) [I62.00] 08/03/2018 Occipital bone fracture (HCC) [S02.119A] 08/03/2018 Fall [W19.XXXA] 08/03/2018 Scalp laceration, initial encounter [S01.01XA] 08/03/2018 Dizziness [R42] 08/08/2018 Class 1 obesity with serious comorbidity and ketan*10/01/2018 Hx of sinus bradycardia [Z86.79] 11/06/2021 Migraine [G43.909] 11/06/2021 DVT of upper extremity (deep vein thrombosis) (*11/06/2021 Anxiety and depression [F41.9, F32.A] 11/06/2021 Carpal tunnel syndrome [G56.00] 11/06/2021 (more content not included)... Normal [facility] Inital Evaluation (1) - PTon 01-27-2024 Inital Evaluation (1) - PT [facility] Physical Therapy [facility] [address] [place] [address]. [address] [place] [address] / REHABILITATION SERVICES INITIAL EVALUATION MR#: [id number] Acct: [id number] Name: BRADLEY KEYS Rep #: [id number] : 1960 63 From: Myron Rivera DPT Referring Dr.: FE Pacheco Status: REG RCR Insurance: [employer] MED[employer] SELF PAY INSURANCE Patient's Visit Information Visit Information Visit Information: BRADLEY KEYS is a 63 year old M referred to Physical Therapy by FE Pacheco with a diagnosis of L adhesive capsulitis with capsular release 01/26/24. Date of Evaluation: 01/27/24 Physical Therapist: Myron Rivera DPT Visit Plan Frequency: 4-5x /Week Duration: 3 Weeks Plan: 1) PROM progressing to full 2) light shoulder shurg, scap retraction. Periscapular activitation 3) Progress to AAROM then AROM. 4) once ROM has been restored add in strengthening as tolerated. Subjective Subjective: Pt. is here today for his initial evaluation with diagnosis of adhesive capsulitis of L shoulder. Pt. had a L arthroscopic capsular release on 01/26/24. Pt. had is R shoulder similar surgery earlier this year. Pt. reports being very sore today arrives with sling on. Pt. is taking Percocet for pain control. He has also been icing for pain control. He has not had a chance to work on any exercises. Pt. reports difficulty sleeping due to his nerve block wearing off. He is retired. Pt. is hopeful to increase his ROM and eventual strength in order to get back to all recreational and household activities without limitations. Pain L shoulder: Pain Intensity (Out of 10): 7 Objective Objective: POSTURE: Pt. keep L UE in guarded posture with slightly elevated L shoulder. Pt. was able to relax with VC/TCing. PALPATION: Pt. has no signs of infection, anterior incision looks good. Some marked bruising at his anterior shoulder. NEURO: Pt. has normal sensation throughout BUEs. ROM: Pt. has full L elbow ROM without increase in symptoms. L shoulder: PROM: flexion 130deg, abd 50deg, ER at side 0deg. Pt. was very guarded at first but has increased tolerance with increased PROM. I urged him to try and relax and did better as PROM progressed. MMT: DNT this date due to recent surgery. Balance/Special Test Scores Quick DASH Score: [phone] Goals Goal 1:: LTG: pt. to be I with HEP. Goal Time Frame: 4-6 Weeks Goal 2:: STG: Pt. to have increased L shoulder PROM to full with 0-3/10 pain in L shoulder. Goal Time Frame: 2-4 Weeks Goal 3:: STG: Pt. to sleep throughout the night without increase in symptoms. Goal Time Frame: 2-4 Weeks Goal 4:: LTG: Pt. to have full L shoulder AROM without increase in symptoms. Goal Time Frame: 4-6 Weeks Goal 5:: LTG: pt. to have increased L shoulder strength to 4+/5 throughout without increase in L shoulder pain. Goal Time Frame: 6-8 Weeks Goal 6:: LTG: Pt. to be able to complete all household and recreational activities without increase in symptoms. Goal Time Frame: 6-8 Weeks Rehabilitation Potential Physical Therapy Diagnosis: Pt. has signs and symptoms consistent with L adhesive capsulitis with capsular release 01/26/24. Pt. has marked hypomobility, increased pain, decreased tolerated to ADLs. Pt. would benefit from PT to initially restore his ROM then progress to functional use/strengthening. Rehabilitation Potential: Excellent Anticipated Interventions Patient/Client Instruction: Educate patient on: Condition, Plan of Care, Risk Factors and Benefits of Fitness Program For the Purpose of:: To reduce risk of recurrence, To improve safety, To improve health and function, To foster healthy habits, To improve decision making, To facilitate caregiver knowledge, To improve self management, To prevent re-injury and To improve ability to perform tasks related to life management Therapeutic Exercise to Include: Strength training, Postural training, Flexibilty training, Passive ROM, Active ROM and Paige Exercises For the Purpose of:: To decrease pain, To increase ROM, To improve nutrient delivery to tissue, To increase oxygenation perfusion, To improve muscle performance and motor function, To improve ability to perform ADL's, To increase tolerance to activity/condition/p osition, To improve performance and independence with ADL's, To improve health of tissue, To decrease soft tissue restriction and To increase flexibility/ROM Manual Therapy Techniques to Include: Mobilization and Passive ROM For the Purpose of:: To decrease pain, To decrease swelling/inflammatio n, To increase ROM, To improve nutrient delivery to tissue, To increase oxygenation perfusion and To improve muscle performance and motor function Cryotherapy (ice pack, ice massage): Yes Thermo therapy (hot pack): Yes For the Purpose of:: To decrease pain, To decrease swelling/inflammatio n and To increase (more content not included)... Normal [facility] ANES POSTPROC EVALon 024 ANES POSTPROC EVAL HNO ID: [id number] Author: NARAYAN NIEVES MD Service: Anesthesiology Author Type: Anesthesiologist Type: Anesthesia Postprocedure Evaluation Filed: 01/26/2024 09:28 Note Text: POST ANESTHESIA EVALUATION NOTE : 1960 Procedure Summary Date: 01/26/24 Room / Location: [place] OR05 [place] Anesthesia Start: 737 Anesthesia Stop: 845 Procedure: ARTHROSCOPY SHOULDER W/ LYSIS ADHESIONS (Left: Shoulder) Diagnosis: Adhesive capsulitis of left shoulder (Adhesive capsulitis of left shoulder [M75.02]) Surgeons: Tino Zuleta MD Responsible Provider: Narayan Nieves MD Anesthesia Type: general ASA Status: 3 Anesthesia Type: general Airway Type: ETT Last Vitals Vitals Value Taken Time BP 107/53 01/26/24 0915 Temp 36.5 ?C (97.7 ?F) 01/26/24 0845 Pulse 48 01/26/24 0926 Resp 10 01/26/24925 SpO2 93 % 01/26/24925 Vitals shown include unfiled device data. Post Anesthesia Patient Status Patient Evaluation: PACU. PACU/ICU Patient Condition: stable. Anticipated Disposition: phase 2 then home. Neurological Status: aware and responsive. Pulmonary Status: breathing comfortably on room air Airway Control: returned to baseline unsupported. Cardiovascular Status: stable. Pain Management: clinically adequate - multimodal analgesia pain management approach Postoperative Hydration: acceptable. Intraoperative Events: no significant anesthesia events Recommendation: continue current plan of care. Anesthesia Observations No Documentation SIGNATURE: Narayan Nieves MD PATIENT NAME: Bradley Keys DATE: January 26, 2024 TIME: 9:28 AM CSN: [id number] [facility] ANES PRE-OPon 01-26-2024 ANES PRE-OP HNO ID: [id number] Author: NARAYAN NIEVES MD Service: Anesthesiology Author Type: Anesthesiologist Type: Anesthesia Preprocedure Evaluation Filed: 01/26/2024 07:31 Note Text: ANESTHESIOLOGY DAY OF SURGERY NOTE : 1960 Procedure Information Date/Time: 01/26/24729 Procedure: ARTHROSCOPY SHOULDER W/ LYSIS ADHESIONS (Left: Shoulder) Location: [place]05 [place] Surgeons: Tino Zuleta MD Estimated body mass index is 34.21 kg/m? as calculated from the following: Height as of this encounter: 172.7 cm (5' 8). Weight as of this encounter: 102.1 kg (225 lb). Most recent hematocrit and potassium results: Hematocrit 40.4 01/23/2024 Potassium 4.3 01/23/2024 Relevant Problems ANESTHESIA (+) Obstructive sleep apnea CARDIO (+) Coronary artery disease involving false pass coronary artery of false pass heart without angina pectoris (+) DVT of upper extremity (deep vein thrombosis) (HCC) (+) Essential hypertension (+) Migraine ENDO (+) Acquired hypothyroidism GI (+) Gastroesophageal reflux disease without esophagitis NEURO-PSYCH (+) Hx of sinus bradycardia (+) Migraine PULMONARY (+) Obstructive sleep apnea I - PHYSICAL EVALUATION AIRWAY Patient intubated: No. Mallampati: II. TM distance: >3 FB. Neck ROM: full ROM without neurological symptoms. Mouth opening: adequate. Short neck: no. Thick neck: no DENTAL Dental findings: teeth intact and poor dentition. Additional exam findings: no II - ANESTHESIA PLAN ASA Score: 3 Anesthetic Plan: general Airway type: ETT NPO Status: adequate Beta Freedom Monitoring Plan Monitoring plan: Standard ASA. Post Procedure Analgesic Plan Postoperative analgesic plan: parenteral or oral opioids and multimodal analgesia. Informed Consent Anesthetic risks, benefits, alternatives, personnel and consent discussed: yes. Patient / Responsible Democrat agrees to proceed: yes Patient / Surrogate agrees to blood products: yes DNR status not reviewed with patient and/or family prior to surgery. Significant changes in the patient condition since the History and Physical, not otherwise documented in primary service progress note: no. Potential Anesthesia issues that may suggest increased risk of complications or contraindication to planned procedure: none. Vitals Value Taken Time BP 145/65 01/26/24 0642 Pulse Resp 17 01/26/24 0642 Temp 37.1 ?C (98.8 ?F) 01/26/24 0642 SpO2 97 % 01/26/24 0642 Facility-Administere d Medications as of 01/26/2024 Medication Dose Route Frequency - [COMPLETED] acetaminophen 650 mg tab(s) (TYLENOL) 650 mg ORAL Pre-Op Once - midazolam (PF) 2 mg injection (VERSED) 2 mg INTRAVENOUS Pre-Op Once - [COMPLETED] promethazine 12.5 mg tab(s) (PHENERGAN) 12.5 mg ORAL Pre-Op Once - lidocaine (PF) 10 mg/mL (1 %) 1-2 mg injection (XYLOCAINE) 0.1-0.2 mL INTRADERMAL PRN - NaCl 0.9% iv flush bag 20 mL INTRAVENOUS PRN - ceFAZolin iv piggyback 2 g in D5W (iso-osmotic) 100 mL (ANCEF) 2 g INTRAVENOUS Pre-Op Once Outpatient Medications as of 01/26/2024 Medication Sig - gabapentin (NEURONTIN) 300 mg capsule Take 300 mg by mouth three times a day. - aspirin 81 mg chewable tablet Take 81 mg by mouth once daily. - topiramate (TOPAMAX) 50 mg tablet Take 50 mg by mouth twice daily. - atorvastatin (LIPITOR) 40 mg tablet Take 40 mg by mouth once daily. - omeprazole (PRILOSEC) 20 mg capsule Take 20 mg by mouth once daily. - citalopram (CELEXA) 20 mg tablet Take 30 mg by mouth once daily. - levothyroxine (SYNTHROID) 100 mcg tablet Take 100 mcg by mouth daily before breakfast. - docusate sodium (COLACE) 100 mg capsule Take 1 capsule by mouth as needed. - magnesium oxide 400 mg magnesium cap Take 1 capsule by mouth once daily. - acetaminophen (TYLENOL) 325 mg tablet Take 650 mg by mouth every 6 hours as needed. - NURTEC ODT 75 mg disintegrating tablet TAKE 1 TABLET BY MOUTH DAILY NEEDED for onset OF migrainse, no more than 1 (ONE) dose in 24 hours DIRECTED FOR 30 DAYS - blood sugar diagnostic (ONETOUCH VERIO TEST STRIPS) test strip Use to test glucose once daily as directed. DX: E11.42, non insulin dependent. - OYSTER SHELL CALCIUM-VITAMIN D 500 mg(1,250mg) -200 unit per tablet Take 1 tablet by mouth once daily. - lancets (ONE TOUCH DELICA) 33 gauge Use to test glucose once daily as directed. DX: E11.42, non insulin dependent. - Blood-Glucose Meter (ONETOUCH VERIO METER) Use to test glucose once daily as directed. DX: E11.42, non insulin dependent. - Zinc 50 mg tab Take 50 mg by mouth once daily. - melatonin 3 mg tablet Take 2 tablets by mouth daily at bedtime. - Cholecalciferol, Vitamin D3, 2,000 unit cap Take 2 capsules by mouth once daily. - cyanocobalamin, vitamin B-12, (VITAMIN B-12 ORAL) Take 500 Units by mouth two times a day. - multivit-min/folic/v it K/lycop (ONE-A-DAY MEN'S MULTIVITAMIN ORAL) Take 1 tablet by mouth once daily. I have interviewed and examined the (more content not included)... Normal [facility] HISTORY PHYSICALon HISTORY PHYSICAL HNO ID: [id number] Author: TINO ZULETA MD Service: Orthopaedic Surgery Author Type: Physician Type: H&P Filed: 01/26/2024 07:19 Note Text: UPDATED HISTORY AND PHYSICAL EXAMINATION SERVICE DATE: 01/26/2024 SERVICE TIME: 7:19 AM SENSITIVE EXAMINATION CONSENT: The sensitive examination was discussed with the Patient or Patient's Authorized Plan Rep. As applicable, any other physician, advance practice provider, medical student, or other health professional student that will be observing or involved in the sensitive examination for educational or training purposes was discussed with the Patient or Authorized Plan Rep. The Patient or Authorized Plan Rep has agreed to proceed with the sensitive examination. (Sensitive examination includes inspection and/or palpation of the breasts, pelvis, prostate and anorectal regions) PHYSICAL EXAM MUST BE COMPLETED ON ADMISSION The History and Physical (completed in the past 30 days) has been reviewed and the patient has been examined. The contents accurately reflect the patient's condition with the following additions or revisions since the HANDP was completed. Examination indicates no changes. This HANDP can be found in the Electronic Medical Record dated 01/23/24. SIGNATURE: Tino Zuleta MD PATIENT NAME: Bradley Keys DATE: January 26, 2024 TIME: 7:19 AM [facility] NURSING PROGon 01-26-2024 NURSING PROG HNO ID: [id number] Author: MANDI VASQUEZ, LIAM Service: Nursing Author Type: Registered Nurse Type: Nursing Progress Note Filed: 01/26/2024 07:42 Note Text: Dr. Nieves at bedside for Ultrasound guided Left supraclavicular nerve block. RN at bedside, pt monitored throughout, BP 156/72 Pulse (!) 52 Temp 37.1 ?C (98.8 ?F) (Temporal) Resp 21 Ht 172.7 cm (5' 8) Wt 102.1 kg (225 lb) SpO2 100% BMI 34.21 kg/m? .No medication given by RN per Dr. Nieves request. Pt tolerated procedure without difficulty. [facility] OPERATIVE NOon 01-26-2024 OPERATIVE NO HNO ID: [id number] Author: TINO ZULETA MD Service: Orthopaedic Surgery Author Type: Physician Type: Operative Report Filed: 01/26/2024 10:55 Note Text: OPERATIVE/PROCEDURE REPORT LOG ID: [id number] SURGERY/PROCEDURE DATE: 01/26/2024 INCISION/PROCEDURE START TIME: 8:15 AM INCISION CLOSE/PROCEDURE END TIME: 8:31 AM SURGEON(S)/PROCEDURA LIST(S) AND WIND UP WORKER(S): Surgeons and Role: * Tino Zuleta MD - Primary Nurse Practitioner: Brisa Luo APRN.IN HOUSE COUNSEL Physician Responder: Desiree Gill PA-C SURGERY/PROCEDURE(S) : Left shoulder arthroscopic lysis of adhesions with acromioplasty, manipulation under anesthesia ANESTHESIA: General SURGERY/PROCEDURE DETAILS: Bradley Keys is a 63 year old man who presented with persistent left shoulder stiffness due to adhesive capsulitis that had been limiting the ability to perform daily activities and had not responded to conservative management. I offered arthroscopic surgery for the purposes of pain relief and improved function of the shoulder. Medically relevant risks, benefits, and alternatives to the procedure were discussed in detail in the office prior to surgery. No guarantees as to the outcome of surgery were given or implied. The patient expressed agreement and understanding with the plan prior to scheduling surgery. The patient was greeted in the preoperative holding area and identified by name and date of . A preoperative nerve block was administered. The patient was taken to the operating room and transferred to the operating table in the supine position. General anesthesia was induced with endotracheal intubation. The patient was placed in the beach chair position with bilateral lower extremities padded and bilateral lower extremity sequential compression devices were applied. Intravenous antibiotic was given. The left shoulder and upper extremity were prepped and draped in a sterile fashion. A time out procedure was performed and this confirmed the correct patient, site, and procedure to be performed. Range of motion was tested prior to manipulation and was found to be 120 degrees elevation, 100 degrees abduction, 45 degrees external rotation in abduction, and 30 degrees internal rotation in abduction. I began by performing a diagnostic arthroscopy of the shoulder using a standard posterior portal. Examination of the humeral and glenoid cartilage revealed Outerbridge grade 0 humerus and grade 0 glenoid. The glenoid labrum was frayed superiorly. Long head of biceps tendon was visualized and there was no tearing of the tendon. I made an anterior portal under direct visualization using outside in technique after first localizing with a spinal needle. A probe was inserted into the joint and this was used to test the integrity of intra-articular structures. The long head of biceps tendon anchor was found to be stable. Medial support of the biceps tendon was intact. The upper border of subscapularis was examined after resecting a small amount of synovial tissue from within the rotator interval. This was found to be intact. The undersurface of the supraspinatus and infraspinatus tendons was examined and no tearing was visible. Final pictures were taken and the arthroscope was removed from the joint. I made an anterior portal using needle localization. The shaver was inserted. I resected the rotator interval. The middle glenohumeral ligament was recessed. The superior capsule was released over the top of the glenoid extending from 2:00 to 10:00. The arthroscope was removed. Next I entered the subacromial space using the posterior portal. Bursal tissue overlying the rotator cuff was cleared with a shaver after making a lateral portal under direct visualization after localizing with a spinal needle. Once the bursa had been resected with shaver I inserted the arthroscope into the lateral portal for full visualization of the subacromial space and rotator cuff. This revealed no tearing. Acromial spur was noted and impinged upon the greater tuberosity with range of motion testing in abduction and internal rotation. I performed a subacromial decompression to resect this to a flat surface using a bur. A gentle manipulation was performed with palpable and audible releasing of adhesions. The patient was taken through a full range of motion in all directions while taking care to avoid injury to the humeral shaft and elbow. After this manipulation I was easily able to range the patient to 180 degrees elevation, 180 degrees abduction, 90 degrees external rotation in abduction, and 90 degrees internal rotation in abduction. The patient was then awakened from anesthesia and remained on the cart. A sling was placed for comfort. The patient was taken to recovery in good condition and discharged with instructions to begin physical therapy the following day. Portal incisions were closed with Monocryl suture. A dry st (more content not included)... Normal [facility] Basic metabolic 2000 panelOr dered By: Saskia Antunez on 01-23-2024 Anion gap [Moles/Vol] 10 mmol/L 8 - 15 mmol/L [facility] Calcium [Mass/Vol] 9.3 mg/dL 8.5 - 10. 2 mg/dL [facility] Chloride [Moles/Vol] 109 mmol/L High 98 - 10 7 mmol/L [facility] CO2 [Moles/Vol] 22 mmol/L 22 - 30 mmol/L [facility] Creatinine [Mass/Vol] 0.93 mg/dL 0.73 - 1.22 mg/dL [facility] GFR/1.73 sq M.predicted among non-blacks MDRD (S/P/Bld) [Vol rate/Area] 92 mL/min/{1.73_m2} - PINF [facility] Comment on above: Estimated Glomerular Filtration Rate (eGFR) is calculated using the 2020 CKD-EPI creatinine equation. This equation utilizes serum creatinine, sex, and age as parameters. The creatinine assay has traceable calibration to isotope dilution-mass spectrometry. Refer to KDIGO guidelines for clinical interpretation. In patients with unstable renal function, e.g. those with acute kidney injury, the eGFR may not accurately reflect actual GFR. Glucose [Mass/Vol] 99 mg/dL 74 - 99 mg/dL [facility] Comment on above: The [place] Diabete s Association (ADA) provides guidance for cutoff values for fasting glucose and random glucose. The ADA defines fasting as no caloric intake for at least 8 hours. Fasting plasma glucose results between 100 to 125 mg/dL indicate increased risk for diabetes (prediabetes). Fasting plasma glucose results greater than or equal to 126 mg/dL meet the criteria for diagnosis of diabetes. In the absence of unequivocal hyperglycemia, results should be confirmed by repeat testing. In a patient with classic symptoms of hyperglycemia or hyperglycemic crisis, random plasma glucose results greater than or equal to 200 mg/dL meet the criteria for diagnosis of diabetes. Reference: Standards of Medical Care in Diabetes 2016, [place] [employer] Association. Diabetes Care. 2016.39(Suppl 1). Interpretation and review of laboratory results Abnormal [facility] Potassium [Moles/Vol] 4.3 mmol/L 3.7 - 5.1 mmol/L [facility] Sodium [Moles/Vol] 141 mmol/L 136 - 144 mmol/L [facility] Urea nitrogen [Mass/Vol] 16 mg/dL 9 - 24 mg/dL [facility] Basic metabolic 2000 panelon 01-23-2024 Anion gap [Moles/Vol] 10 mmol/L Normal 8-15 [facility] Comment on above: Order Comment: Speci men Type: BLOOD SPECIMENOrdering Facility: [facility] Address: [address] [place] [address] Performed By: #### 2 4321-2 ####[facility] NGUYỄN [facility] HOSPITALALECIA [id number] [place] [id number] [place] Calcium [Mass/Vol] 9.3 mg/dL Normal 8.5-10.2 [facility] Comment on above: Order Comment: Speci men Type: BLOOD SPECIMENOrdering Facility: [facility] Address: [address] [place], [place] [id number] Performed By: #### 2 4321-2 ####[facility] MILLWNCLIA [id number] [place] [address] [place] Chloride [Moles/Vol] 109 mmol/L High 98-107 [facility] Comment on above: Order Comment: Speci men Type: BLOOD SPECIMENOrdering Facility: [facility] Address: [address] [place] [address] Performed By: #### 2 4321-2 ####[facility] HOSPITALLIA [id number] [place] [address] [place] CO2 [Moles/Vol] 22 mmol/L Normal 22-30 [facility] Comment on above: Order Comment: Speci men Type: BLOOD SPECIMENOrdering Facility: [facility] Address: [address] [place] [address] Performed By: #### 2 4321-2 ####[facility] HOSPITALLIA [id number] [place] [address] [place] Creatinine [Mass/Vol] 0.93 mg/dL Normal 0.73-1.22 [facility] Comment on above: Order Comment: Speci men Type: BLOOD SPECIMENOrdering Facility: [facility] Address: [address] [place] [address] Performed By: #### 2 4321-2 ####[facility]IT[facility] [id number] [place] [address] [place] Creatinine and Glomerular filtration rate.predicted panel (S/P/Bld) 92 mL/min/1.73m??? Normal >=60 [facility] Comment on above: Order Comment: Tere scales Type: BLOOD SPECIMENOrdering Facility: [facility] Address: [address] [place] [address] Result Comment: Rochelle mated Glomerular Filtration Rate (eGFR) is calculated using the 2020 CKD-EPI creatinine equation. This equation utilizes serum creatinine, sex, and age as parameters. The creatinine assay has traceable calibration to isotope dilution-mass spectrometry. Refer to KDIGO guidelines for clinical interpretation. In patients with unstable renal function, e.g. those with acute kidney injury, the eGFR may not accurately reflect actual GFR. Performed By: #### 2 4321-2 ####[facility] [id number] [place] [address] [place] Glucose [Mass/Vol] 99 mg/dL Normal 74-99 [facility] Comment on above: Order Comment: Tere scales Type: BLOOD SPECIMENOrdering Facility: [facility] Address: [address] [place] [address] Result Comment: The [place] Diabetes Association (ADA) provides guidance for cutoff values for fasting glucose and random glucose. The ADA defines fasting as no caloric intake for at least 8 hours. Fasting plasma glucose results between 100 to 125 mg/dL indicate increased risk for diabetes (prediabetes). Fasting plasma glucose results greater than or equal to 126 mg/dL meet the criteria for diagnosis of diabetes. In the absence of unequivocal hyperglycemia, results should be confirmed by repeat testing. In a patient with classic symptoms of hyperglycemia or hyperglycemic crisis, random plasma glucose results greater than or equal to 200 mg/dL meet the criteria for diagnosis of diabetes. Reference: Standards of Medical Care in Diabetes 2016, [place] [employer]. Diabetes Care. 2016.39(Suppl 1). Performed By: #### 2 4321-2 ####[facility] [id number] [place] [address] [place] Potassium [Moles/Vol] 4.3 mmol/L Normal 3.7-5.1 [facility] Comment on above: Order Comment: Tere scales Type: BLOOD SPECIMENOrdering Facility: [facility] Address: [address] [place] [id number] Performed By: #### 2 4321-2 ####[facility] HOSPITALNCLIA [id number] [place] [address] [place] Sodium [Moles/Vol] 141 mmol/L Normal 136-144 [facility] Comment on above: Order Comment: Speci men Type: BLOOD SPECIMENOrdering Facility: [facility] Address: [facility] [place] [address] Performed By: #### 2 4321-2 ####[facility] HOSPITALLIA [id number] [place] [address] [place] Urea nitrogen [Mass/Vol] 16 mg/dL Normal 9-24 [facility] Comment on above: Order Comment: Speci men Type: BLOOD SPECIMENOrdering Facility: [facility] Address: [address] [place], [place] [address] [address] Performed By: #### 2 4321-2 ####[facility] HOSPITALL[facility] [id number] [place] [address] [place] CBC W Auto Differential pane l (Bld)on 01-23-2024 Basophils (Bld) [#/Vol] 0.03 10*3/uL [facility] Basophils/100 WBC (Bld) 0.7 % [facility] Differential cell count method Nom (Bld) Auto [facility] Eosinophils (Bld) [#/Vol] 0.23 10*3/uL [facility] Eosinophils/100 WBC (Bld) 5.2 % [facility] Erythrocyte distribution width (RBC) [Ratio] 13.5 % 11.5 - 15.0 % [facility] Hematocrit (Bld) [Volume fraction] 40.4 % 39.0 - 51.0 % [facility] Hemoglobin (Bld) [Mass/Vol] 13.2 g/dL 13.0 - 17.0 g/dL [facility] Immature granulocytes (Bld) [#/Vol] [facility] Immature granulocytes/100 WBC (Bld) 0.4 % [facility] Interpretation and review of laboratory results Abnormal [facility] Lymphocytes (Bld) [#/Vol] 1.49 10*3/uL [facility] Lymphocytes/100 WBC (Bld) 33.5 % [facility] MCH (RBC) [Entitic mass] 29.9 pg 26. 0 - 34.0 pg [facility] MCHC (RBC) [Mass/Vol] 32.7 g/dL 30.5 - 36.0 g/dL [facility] [facility] MCV (RBC) [Entitic vol] 91.6 fL 80.0 - 100.0 fL [facility] Monocytes (Bld) [#/Vol] 0.28 10*3/uL [facility] Monocytes/100 WBC (Bld) 6.3 % [facility] Neutrophils (Bld) [#/Vol] 2.40 10*3/uL [facility] Neutrophils/100 WBC (Bld) 53.9 % [facility] Nucleated RBC (Bld) [#/Vol] [facility] Nucleated RBC/100 WBC (Bld) [Ratio] 0.0 % /100 WBC [facility] Platelet mean volume (Bld) [Entitic vol] 10.6 fL 9.0 - 12.7 fL [facility] Platelets (Bld) [#/Vol] 140 10*3/uL Low [facility] Comment on above: No clot detected. RBC (Bld) [#/Vol] 4.41 10*6/uL 4.20 - 6.0 0 m/uL [facility] WBC (Bld) [#/Vol] 4.45 10*3/uL [facility] Basophils (Bld) [#/Vol] 0.03 10*3/uL Normal <0.11 [facility] Comment on above: Order Comment: Speci men Type: BLOOD SPECIMENOrdering Facility: [facility] Address: [address] [place] [address] Performed By: #### 5 7021-8 ####[facility] NGUYỄN PATHAK [id number] [place] [id number] [place] Basophils/100 WBC (Bld) 0.7 % Normal C [facility] Comment on above: Order Comment: Speci men Type: BLOOD SPECIMENOrdering Facility: [facility] Address: [address] [place] [address] Performed By: #### 5 7021-8 ####[facility] ALYSAPOLLARDNCLIA [id number] [place] [address] [place] Differential cell count method Nom (Bld) Auto Normal [facility] Comment on above: Order Comment: Speci men Type: BLOOD SPECIMENOrdering Facility: [facility] Address: [address] [place] [address] Performed By: #### 5 7021-8 ####[facility] HOSPITALNCA [id number] [place] [address] [place] Eosinophils (Bld) [#/Vol] 0.23 10*3/uL Normal <0.46 [facility] Comment on above: Order Comment: Speci men Type: BLOOD SPECIMENOrdering Facility: [facility] Address: [address] [place] [address] Performed By: #### 5 7021-8 ####[facility] [id number] [place] [address] [place] Eosinophils/100 WBC (Bld) 5.2 % Normal [facility] Comment on above: Order Comment: Speci men Type: BLOOD SPECIMENOrdering Facility: [facility] Address: [address] [place] [address] Performed By: #### 5 7021-8 ####[facility]OSPITALNCLIA [id number] [place] [address] [place] Erythrocyte distribution width (RBC) [Ratio] 13.5 % Normal 11.5-15.0 [facility] Comment on above: Order Comment: Speci men Type: BLOOD SPECIMENOrdering Facility: [facility] Address: [address] [place] [address] Performed By: #### 5 7021-8 ####[facility]OS[facility]ITALNCLI [id number] [place] [address] [place] Hematocrit (Bld) [Volume fraction] 40.4 % Normal 39.0-51.0 [facility] Comment on above: Order Comment: Speci men Type: BLOOD SPECIMENOrdering Facility: [facility] Address: [address] [place] [address] Performed By: #### 5 7021-8 ####[facility]OSPITALADAM [id number] [place] [address] [place] Hemoglobin (Bld) [Mass/Vol] 13.2 g/dL Normal 13.0-17. 0 [facility] Comment on above: Order Comment: Speci men Type: BLOOD SPECIMENOrdering Facility: [facility] Address: [address] [place] [address] Performed By: #### 5 7021-8 ####[facility] [id number] [place] [address] [place] Immature granulocytes (Bld) [#/Vol] 10*3/uL Normal <0.10 [facility] Comment on above: Order Comment: Speci men Type: BLOOD SPECIMENOrdering Facility: [facility] Address: [address] [place] [address] Performed By: #### 5 7021-8 ####[facility] [id number] [place] [address] [place] Immature granulocytes/100 WBC (Bld) 0.4 % Normal [facility] Comment on above: Order Comment: Speci men Type: BLOOD SPECIMENOrdering Facility: [facility] Address: [address] [place] [address] Performed By: #### 5 7021-8 ####[facility] HOSPITALLIA [id number] [place] [address] [place] Lymphocytes (Bld) [#/Vol] 1.49 10*3/uL Normal 1.00-4.0 0 [facility] Comment on above: Order Comment: Speci men Type: BLOOD SPECIMENOrdering Facility: [facility] Address: [address] [place] [address] Performed By: #### 5 7021-8 ####[facility]ITALNCGAR[facility] [id number] [place] [address] [place] Lymphocytes/100 WBC (Bld) 33.5 % Normal [facility] Comment on above: Order Comment: Speci men Type: BLOOD SPECIMENOrdering Facility: [facility] Address: [address] [place] [address] Performed By: #### 5 7021-8 ####[facility]ITALNCGAR[facility] [id number] [place] [address] [place] MCH (RBC) [Entitic mass] 29.9 pg Normal 26.0-34.0 [facility] Comment on above: Order Comment: Speci men Type: BLOOD SPECIMENOrdering Facility: [facility] Address: [address] [place] [address] Performed By: #### 5 7021-8 ####[facility] [id number] [place] [address] [place] MCHC (RBC) [Mass/Vol] 32.7 g/dL Normal 30.5-36.0 [facility] Comment on above: Order Comment: Speci men Type: BLOOD SPECIMENOrdering Facility: [facility] Address: [address] [place] [address] Performed By: #### 5 7021-8 ####[facility]ITALNCGAR[facility] [id number] [place] [address] [place] MCV (RBC) [Entitic vol] 91.6 fL Normal 80.0-100.0 C [facility] Comment on above: Order Comment: Speci men Type: BLOOD SPECIMENOrdering Facility: [facility] Address: [address] [place] [address] Performed By: #### 5 7021-8 ####[facility] MILLWNCLIA [id number] [place] [address] [place] Monocytes (Bld) [#/Vol] 0.28 10*3/uL Normal <0.87 [facility] Comment on above: Order Comment: Speci men Type: BLOOD SPECIMENOrdering Facility: [facility] Address: [address] [place] [address] Performed By: #### 5 7021-8 ####[facility] CENTERWNCLIA [id number] [place] [address] [place] Monocytes/100 WBC (Bld) 6.3 % Normal [facility] Comment on above: Order Comment: Speci men Type: BLOOD SPECIMENOrdering Facility: [facility] Address: [address] [place] [address] Performed By: #### 5 7021-8 ####[facility] HOSPITALLIA [id number] [place] [address] [place] Neutrophils (Bld) [#/Vol] 2.40 10*3/uL Normal 1.45-7.5 0 [facility] Comment on above: Order Comment: Speci men Type: BLOOD SPECIMENOrdering Facility: [facility] Address: [address] [place] [address] Performed By: #### 5 7021-8 ####[facility] MILLTOWNCLIA [id number] [place] [address] [place] Neutrophils/100 WBC (Bld) 53.9 % Normal [facility] Comment on above: Order Comment: Speci men Type: BLOOD SPECIMENOrdering Facility: [facility] Address: [address] [place] [address] Performed By: #### 5 7021-8 ####[facility] MILLWNCLIA [id number] [place] [address] [place] Nucleated RBC (Bld) [#/Vol] 10*3/uL Normal <0.01 [facility] Comment on above: Order Comment: Speci men Type: BLOOD SPECIMENOrdering Facility: [facility] Address: [address] [place] [address] Performed By: #### 5 7021-8 ####[facility] HOSPITALTOM [id number] [place] [address] [place] Nucleated RBC/100 WBC (Bld) [Ratio] 0.0 /100 WBC Normal [facility] Comment on above: Order Comment: Speci men Type: BLOOD SPECIMENOrdering Facility: [facility] Address: [address] [place] [address] Performed By: #### 5 7021-8 ####[facility] HOSPITALNCALECIA [id number] [place] [address] [place] Platelet mean volume (Bld) [Entitic vol] 10.6 fL Normal 9.0-12.7 [facility] Comment on above: Order Comment: Speci men Type: BLOOD SPECIMENOrdering Facility: [facility] Address: [address] [place] [address] Performed By: #### 5 7021-8 ####[facility]OSPITALTOM [id number] [place] [address] [place] Platelets (Bld) [#/Vol] 140 10*3/uL Low 150-400 [facility] Comment on above: Order Comment: Speci men Type: BLOOD SPECIMENOrdering Facility: [facility] Address: [address] [place] [address] Result Comment: No c lot detected. Performed By: #### 5 7021-8 ####[facility]OSPITALNCLIA [id number] [place] [address] [place] RBC (Bld) [#/Vol] 4.41 10*6/uL Normal 4.20-6.00 [facility] Comment on above: Order Comment: Speci men Type: BLOOD SPECIMENOrdering Facility: [facility] Address: [address] [place] [address] Performed By: #### 5 7021-8 ####[facility] HOSPITALNCLI [id number] [address] OF [place] WBC (Bld) [#/Vol] 4.45 10*3/uL Normal 3.70-11.00 [facility] Comment on above: Order Comment: Speci men Type: BLOOD SPECIMENOrdering Facility: [facility] Address: [address] [place] [address] Performed By: #### 5 7021-8 ####[facility] HOSPITALNCLIA [id number] [address] OF [facility] OMM32wa 01-23-2024 ECG01 Ventricular Rate : 45 BPM Atrial Rate : 45 BPM P-R Interval : 186 ms QRS Duration : 104 ms Q-T Interval : 486 ms QTC Calculation(Bazett) : 420 ms Calculated P B[place] : 47 degrees Calculated R [place] : 77 degrees Calculated T B[place] : 43 degrees SINUS BRADYCARDIA OTHERWISE NORMAL ECG Confirmed by MD SORENSON GREGORY () on 01/26/2024 10:45:31 AM NAME : BRADLEY KEYS PID : [id number] : 1960 Gender : Male Race : ORD : Procedure Date : Jan 23 2024 13:30:15 Edit Date : Jan 26 2024 10:45:32 Diagnosis: SINUS BRADYCARDIA OTHERWISE NORMAL ECG Confirmed by MD SORENSON GREGORY () on 01/26/2024 10:45:31 AM Test Reason : Location : 636 : [facility] Overread By : MD SORENSON GREGORY Edited By : MD SORENSON GREGORY Referred By : TINO ZULETA Acquired by : Jayesh reardon [facility] HISTORY PHYSICALon HISTORY PHYSICAL HNO ID: [id number] Author: NEGIN KAUFMAN APRN.ROB Service: ? Author Type: Nurse Practitioner Type: H&P Filed: 01/23/2024 12:33 Note Text: [facility] HISTORY AND PHYSICAL EXAMINATION SERVICE DATE: 01/23/2024 SERVICE TIME: 12:32 PM PRIMARY CARE PHYSICIAN: Mandi Sandoval NP Assessment Patient has the following medical conditions which may affect vidya-operative course: Controlled type 2 diabetes mellitus with diabetic polyneuropathy, without long-term current use of insulin (HCC) Assessment: controlled on oral agent, new A1c pending Hemoglobin A1C (%) Date Value 08/14/2023 5.6 03/25/2019 5.3 Hemoglobin A1C (POCT) (%) Date Value 09/07/2020 5.3 Migraine Assessment: controlled on rx and rx as needed, receives botox, following neurology Subdural hemorrhage (HCC) Assessment: residual balance issues and strength, and chronic migraines Coronary artery disease involving false pass coronary artery of false pass heart without angina pectoris Assessment: ASA 81mg, s/p stent, following WHG, new EKG today showing bradycardia, pt asymptomatic. Last OV scanned into [employer]. Essential hypertension Assessment: hx, no current tx, hx gastric bypass Last 14 BP Last 14 Encounter BP Readings: Date: BP: 01/23/2024 112/72 10/06/2023 162/65 09/19/2023 110/58 08/18/2023 136/62 05/29/2022 150/121 05/22/2022 124/64 04/19/2022 86/52 04/15/2022 99/50 04/12/2022 132/64 04/06/2022 122/80 11/07/2021 149/65 10/31/2021 110/64 10/18/2021 132/62 10/18/2021 116/78 Mixed hyperlipidemia Assessment: c/w statin Obstructive sleep apnea Assessment: cw BiPap Gastroesophageal reflux disease without esophagitis Assessment: controlled on rx Acquired hypothyroidism Assessment: stable on rx DVT of upper extremity (deep vein thrombosis) (HCC) Assessment: daily ASA, provoked by surgery, tx with AC at the time Anxiety and depression Assessment: stable on rx per pt History of gastric bypass Assessment: hx Hx of sinus bradycardia Assessment: hx, asymptomatic, following cardiology, updated EKG no AV blocks noted Class 1 obesity with serious comorbidity and body mass index (BMI) of 31.0 to 31.9 in adult Assessment: Body mass index is 31.63 kg/m?. Etienne Activity Status Index: METS: Climb a flight of stairs or walk up a hill (5.50 METs) DASI Score: 5.5 Patient denies any chest pain or undue shortness of breath with the above physical activity. Clinical Frailty Scale: 4. Apparently vulnerable STOP-Bang Score: Snores loudly Often feels tired, fatigued, or sleepy during the daytime Has been observed to stop breathing or choking/gasping during sleep Has or is being treated for high blood pressure Patient over 50 years old Has a large neck Male patient BMI less than or equal to 35 kg/m2 STOP-Bang Score: 7 [id number] Score: Age: <65 Sex: male CHF history: No Hypertension history: Yes Stroke/TIA/thromboem bolism history: Yes Vascular disease history: Yes Diabetes history: Yes [id number] Score: 5 ARISCAT Score: Age: 51-80 Preoperative SpO2: >=96% Respiratory infection in the last month: No Preoperative anemia: No Surgical incision: peripheral Duration of surgery: <2 hrs Emergency procedure: No ARISCAT Score: 3 ANESTHESIA FINDINGS: Intubation History: No history of difficult intubation Significant Anesthesia Considerations: none Airway History: No history of difficult airway I - PHYSICAL EVALUATION AIRWAY Patient intubated: No. Tracheostomy tube not present Mallampati: III. TM distance: >3 FB. Neck ROM: full ROM without neurological symptoms. Mouth opening: adequate. Short neck: no. Thick neck: yes Stapleton present: no Lip Bite Test: I Microretrognathia/Mi cronagthia/Recessed Chin: No DENTAL Dentures, upper: complete. Dentures, lower: complete. II - ANESTHESIA PLAN Anesthetic Plan: other Anesthetic plan additional comments: *PACC/TCI - anesthesia choice. Beta Freedom Monitoring Plan Post Procedure Analgesic Plan Prepared for Surgery: optimally prepared for surgery, pending [see comment]. Labs and ekg CONSULTS: Planned Anesthetic: other anesthesia choice The Following Tests/Procedures Have Been Initiated: Orders Placed This Encounter >BMP Standing Status: Future Standing Expiration Date: 04/23/2024 >CBC + AUTO DIFF Standing Status: Future Standing Expiration Date: 04/23/2024 >HGB A1c (Today or soon) Standing Status: Future Standing Expiration Date: 04/23/2024 metFORMIN (GLUCOPHAGE) 500 mg tablet Sig: Take 500 mg by mouth daily with breakfast. ECG COMPLETE Standing Status: Future Standing Expiration Date: 01/22/2025 ECG COMPLETE Order Comments: Ordered by an unspecified provider REASON FOR VISIT: Bradley Keys is a 63 year old male who is scheduled for Procedure(s): ARTHROSCOPY SHOULDER W/ LYSIS ADHESIONS (Left) at (more content not included)... Normal [facility] HbA1c (Bld)on 01-23-2024 Average glucose Estimated from glycated hemoglobin (Bld) [Mass/Vol] 137 mg/dL Normal [facility] Comment on above: Order Comment: Tere scales Type: BLOOD SPECIMENOrdering Facility: [facility] Address: [address] [place] [address] Result Comment: eAG: (Estimated average glucose) is a calculated value from HgbA1c and is telephone services sales representative of the average blood glucose level in the last 2-3 month period. Performed By: #### 5 5454-3 ####[facility] LABIA [id number] [place] [address] [place] HbA1c (Bld) [Mass fraction] 6.4 % High 4.3-5.6 [facility] Comment on above: Order Comment: Tere sacles Type: BLOOD SPECIMENOrdering Facility: [facility] Address: [address] [place] [address] Result Comment: [place] Diabetes Association guidelines indicate that patients with HgbA1c in the range 5.7-6.4% are at increased risk for development of diabetes, and intervention by lifestyle modification may be beneficial. HgbA1c greater or equal to 6.5% is considered diagnostic of diabetes. Performed By: #### 5 5454-3 ####[facility] LABIA [id number] [place] [address] [place] [facility] BRADLEY KEYS ([id number]) 1960 M Date Time Provider Department 01/20/24 TINO ZULETA During your visit today, we recorded the following information about you: Lakisha Nicolas 01/20/2024 8:28 AM Signed Patient is scheduled for surgery on Friday. He had a Botox injection in his head this past Friday for chronic migraines. He wanted to make sure you were aware and also wanted to make sure this wasn't going to effect his surgery in any way. Lakishadixon Buchanantye Diana Allergies As of Date: 01/20/2024 Noted Allergy Reaction CELEBREX (CELECOXIB) 05/27/2007 Comments: blisters from head to toe Date Reviewed: 10/17/2023 Reviewed by: Sara Truong MA - Fully Assessed Reason for Visit: Patient Question [9037] Prescriptions as of 01/20/2024 - docusate sodium (COLACE) 100 mg capsule Take 1 capsule by mouth as needed. - ondansetron orally disintegrating (ZOFRAN ODT) 4 mg disintegrating tablet Take 1 tablet by mouth every 8 hours as needed for nausea/vomiting. - magnesium oxide 400 mg magnesium cap Take 1 capsule by mouth once daily. - alpha lipoic acid 100 mg cap Take 1 capsule by mouth once daily. - TRULICITY 1.5 mg/0.5 mL pen injector inject1.5 mg subcutaneously every week as directed - gabapentin (NEURONTIN) 300 mg capsule Take 300 mg by mouth three times a day. - acetaminophen (TYLENOL) 325 mg tablet Take 650 mg by mouth every 6 hours as needed. - NURTEC ODT 75 mg disintegrating tablet TAKE 1 TABLET BY MOUTH DAILY NEEDED for onset OF migrainse, no more than 1 (ONE) dose in 24 hours DIRECTED FOR 30 DAYS - aspirin 81 mg chewable tablet Take 81 mg by mouth once daily. - blood sugar diagnostic (WebtalkUCH VERIO TEST STRIPS) test strip Use to test glucose once daily as directed. DX: E11.42, non insulin dependent. - OYSTER SHELL CALCIUM-VITAMIN D 500 mg(1,250mg) -200 unit per tablet Take 1 tablet by mouth once daily. - lancets (ONE TOUCH DELICA) 33 gauge Use to test glucose once daily as directed. DX: E11.42, non insulin dependent. - Blood-Glucose Meter (ONETOUCH VERIO METER) Use to test glucose once daily as directed. DX: E11.42, non insulin dependent. - Zinc 50 mg tab Take 50 mg by mouth once daily. - multivit with minerals/lutein (CEROVITE SENIOR ORAL) Take by mouth. - topiramate (TOPAMAX) 50 mg tablet Take 50 mg by mouth twice daily. - atorvastatin (LIPITOR) 40 mg tablet Take 40 mg by mouth once daily. - melatonin 3 mg tablet Take 2 tablets by mouth daily at bedtime. - Cholecalciferol, Vitamin D3, 2,000 unit cap Take 2 capsules by mouth once daily. - omeprazole (PRILOSEC) 20 mg capsule Take 20 mg by mouth once daily. - citalopram (CELEXA) 20 mg tablet Take 30 mg by mouth once daily. - levothyroxine (SYNTHROID) 100 mcg tablet Take 100 mcg by mouth daily before breakfast. - cyanocobalamin, vitamin B-12, (VITAMIN B-12 ORAL) Take 500 Units by mouth two times a day. - multivit-min/folic/v it K/lycop (ONE-A-DAY MEN'S MULTIVITAMIN ORAL) Take 1 tablet by mouth once daily. Problem List As Of Date 01/20/2024 Noted Resolved Obstructive sleep apnea [G47.33] 10/16/2009 Controlled type 2 diabetes mellitus with diabet*06/01/2018 Essential hypertension [I10] 06/01/2018 Mixed hyperlipidemia [E78.2] 06/01/2018 Acquired hypothyroidism [E03.9] 06/01/2018 Vitamin D deficiency [E55.9] 06/01/2018 History of gastric bypass [Z98.84] 06/01/2018 Coronary artery disease involving false pass loyola*06/01/2018 Gastroesophageal reflux disease without esophag*06/01/2018 Subdural hemorrhage (HCC) [I62.00] 08/03/2018 Occipital bone fracture (HCC) [S02.119A] 08/03/2018 Fall [W19.XXXA] 08/03/2018 Scalp laceration, initial encounter [S01.01XA] 08/03/2018 Dizziness [R42] 08/08/2018 Class 1 obesity with serious comorbidity and ketan*10/01/2018 Hx of sinus bradycardia [Z86.79] 11/06/2021 Migraine [G43.909] 11/06/2021 DVT of upper extremity (deep vein thrombosis) (*11/06/2021 Anxiety and depression [F41.9, F32.A] 11/06/2021 Carpal tunnel syndrome [G56.00] 11/06/2021 Encounter Status:Closed by LAKISHA NICOLAS on 01/20/24 [facility] PT EDon 01-16-2024 PT ED HNO ID: [id number] Author: BRISA LUO APRN.ROB Service: General Surgery Author Type: Nurse Practitioner Type: Patient Education Filed: 01/16/2024 16:11 Note Text: TELEPHONE ENCOUNTER Bradley Keys's medication list was reviewed and patient was noted to be taking Trulicity per patient chart. The patient was contacted via telephone and stated that he is no longer taking Trulicity or any other GLP-1 agonist or SGLT2 inhibitor. Patient stated his last dose of Trulicity was approximately 6 months ago. Upcoming surgery date is 01/26/24. SIGNATURE: Brisa Luo APRN.IN HOUSE COUNSEL PATIENT NAME: Bradley Keys DATE: January 16, 2024 [facility] 01-02-2024 [facility] Office Visit (ORMDRG) BRADLEY KEYS ([id number]) 1960 M Date Time Provider Department 01/02/24 2:45 PM TINO ZULETA During your visit today, we recorded the following information about you: Tino Zuleta MD 01/05/2024 9:08 AM Signed PAIN EVALUATION 01/02/2024 1440 Pain Location: Shoulder-Right Description: Sore Frequency: Intermittent Comments: last R-shoulder CSI:10/17/23 Encounter Diagnosis ICD-10-CM 1. Adhesive capsulitis of left shoulder M75.02 Bradley Keys returns with continued stiffness of the left shoulder. He has done well with recovery from right shoulder arthroscopic release The left shoulder has not improved despite doing long-term physical therapy and he would like to consider surgery. EXAM: Left shoulder unchanged motion, limited in all directions [id number](Sac) IMAGING: I personally reviewed the MRI of the right shoulder in the office today, and I am in agreement with the radiologist's interpretation with the following modifications: None IMPRESSION: Low-grade partial thickness articular surface tear LEFT posterior supraspinatus tendon. Background rotator cuff tendinosis. PLAN: Bradley Keys presents today with persistent left shoulder stiffness due to adhesive capsulitis. The current condition represents a significant risk of loss of function of the extremity due to the worsening pain and diminished use of the arm at this time. Based on my evaluation today, I do not feel that nonsurgical interventions including physical therapy, activity modification, and medical management are likely to provide this patient with an acceptable level of improvement in functional use of the arm, nor significant pain relief. After thorough review of history, examination findings, and imaging, we discussed surgical intervention today which would be arthroscopic capsular release. I described the procedure in detail as well as the expected healing time of 3-6 months and physical therapy regimen following surgery, likely for much of this time. Informed consent was discussed in detail and signed in the office today. Significant risks of surgery include general anesthesia, and those from surgery including infection, nerve injury, bleeding, procedure failure and possible need for repeat procedure. No guarantees as to the outcome of surgery were given or implied. Surgery will be scheduled for the next available date. Tino Zuleta MD Shoulder AND Elbow Surgeon Department of Orthopaedic Surgery [facility] Allergies As of Date: 01/02/2024 Noted Allergy Reaction CELEBREX (CELECOXIB) 05/27/2007 Comments: blisters from head to toe Date Reviewed: 10/17/2023 Reviewed by: Sara Truong MA - Fully Assessed Reason for Visit: Established Patient [175] Follow Up [171] Primary Visit Diagnosis:Adhesive capsulitis of left shoulder [M75.02] Prescriptions as of 01/05/2024 - docusate sodium (COLACE) 100 mg capsule Take 1 capsule by mouth as needed. - ondansetron orally disintegrating (ZOFRAN ODT) 4 mg disintegrating tablet Take 1 tablet by mouth every 8 hours as needed for nausea/vomiting. - magnesium oxide 400 mg magnesium cap Take 1 capsule by mouth once daily. - alpha lipoic acid 100 mg cap Take 1 capsule by mouth once daily. - TRULICITY 1.5 mg/0.5 mL pen injector inject1.5 mg subcutaneously every week as directed - gabapentin (NEURONTIN) 300 mg capsule Take 300 mg by mouth three times a day. - acetaminophen (TYLENOL) 325 mg tablet Take 650 mg by mouth every 6 hours as needed. - NURTEC ODT 75 mg disintegrating tablet TAKE 1 TABLET BY MOUTH DAILY NEEDED for onset OF migrainse, no more than 1 (ONE) dose in 24 hours DIRECTED FOR 30 DAYS - aspirin 81 mg chewable tablet Take 81 mg by mouth once daily. - blood sugar diagnostic (ONETOUCH VERIO TEST STRIPS) test strip Use to test glucose once daily as directed. DX: E11.42, non insulin dependent. - OYSTER SHELL CALCIUM-VITAMIN D 500 mg(1,250mg) -200 unit per tablet Take 1 tablet by mouth once daily. - lancets (ONE TOUCH DELICA) 33 gauge Use to test glucose once daily as directed. DX: E11.42, non insulin dependent. - Blood-Glucose Meter (ONETOUCH VERIO METER) Use to test glucose once daily as directed. DX: E11.42, non insulin dependent. - Zinc 50 mg tab Take 50 mg by mouth once daily. - multivit with minerals/lutein (CEROVITE SENIOR ORAL) Take by mouth. - topiramate (TOPAMAX) 50 mg tablet Take 50 mg by mouth twice daily. - atorvastatin (LIPITOR) 40 mg tablet Take 40 mg by mouth once daily. - melatonin 3 mg tablet Take 2 tablets by mouth daily at bedtime. - Cholecalciferol, Vitamin D3, 2,000 unit cap Take 2 capsules by mouth once daily. - omeprazole (PRILOSEC) 20 mg capsule Take 20 (more content not included)... Normal [facility] PT D/C Summary (1)on 024 PT D/C Summary (1) [facility] Physical Therapy [facility] [address] [place] [address] / REHABILITATION SERVICES DISCHARGE SUMMARY MR#: [id number] Acct: [id number] Name: BRADLEY KEYS Rep #: [id number] : 1960 63 From: Jay Truong DPT, OCS, CSCS Referring Dr.: OUT OF TOWN DOCTOR Status: REG R CR Insurance: [employer] MEDICARE SELF PAY INSURANCE Discharge Summary D/C summary: It has been my pleasure to treat BRADLEY KEYS referred by TINO ZULETA, with the diagnosis of s/p VAHE, lysis of adhesions for a total of 15 visit(s). Discharge Date: 11/13/23 Please see the following information for a summary of their discharge status. Subjective Subjective: Getting better ROM. Activities; Able to write name now, able to lift trash bag with R. Putting shirt on and reaching behind, reaching into cupboard is good. Strength feels OK. HEP: wall stretches, table stretches, . Pain is no issue. Sleep is good. On disabiity. Pain R shld: Pain Intensity (Out of 10): 4 Overall Improvement % Improvement: 80 Objective Objective/Function: 130 flexiona dn abd AROM today with some scap compensation. Ext rotation 50, IR to L5. weakness in er and flexion on R vs L but funcitonal. Goals Goal 1:: Patient will be I with HEP and progression Goal Progress: Progressing Goal 2:: Patient will demo full AROM of the right shoulder Goal Progress: 130 Goal 3:: Patient will maintain proper posture t/o tx session to demo increased scap s/s Goal Progress: Goal Met Goal 4:: Patient will report 80% improvement Goal Progress: Goal Met Plan Plan: d/c D/C Information d/c sentence: If there are questions or concerns regarding this patient's physical therapy, please feel free to call me at [phone]. Thank you for the referral of this patient. Sincerely, Jay Truong, NAVEENT, OCS, CSCS Balance/Gait/Functio nal tests Balance/Special Test Scores Quick DASH Score: 25.0000 Improvement % Improvement: 80 12/30/23 1100 CC: TINO ZULETA; [facility] Signed Normal [facility] Stool Occult Blood iFOBon STOB Negative Normal [facility] Comment on above: Performed By: #### M 100.7900 ####[facility] [address] [place], [address] CBC W/Diff, Automatedon Absolute Lymph 1.50 X10 3/uL Normal 0.83-4.51 [facility] Comment on above: Performed By: #### L 500.4050, L100.0100, L501.9520, L502.0500, L400.2010 ####[facility] [address] [place], [address] Absolute Neut 2.9 X10 3/uL Normal 2.0-7.7 [facility] Comment on above: Performed By: #### L 500.4050, L100.0100, L501.9520, L502.0500, L400.2010 ####[facility] [address] [place], [address] Basophils/100 WBC (Bld) 0.6 % Normal 0-1 [facility] Comment on above: Performed By: #### L 500.4050, L100.0100, L501.9520, L502.0500, L400.2010 ####[facility] [address] [place], [address] Eosinophils/100 WBC (Bld) 4.0 % Normal 0-5 [facility] Comment on above: Performed By: #### L 500.4050, L100.0100, L501.9520, L502.0500, L400.2010 ####[facility] [address] [place], [address] Erythrocyte distribution width (RBC) [Ratio] 13.3 % Normal 11.6-14.6 [facility] Comment on above: Performed By: #### L 500.4050, L100.0100, L501.9520, L502.0500, L400.2010 ####[facility] [address] [place], [address] Hematocrit (Bld) [Volume fraction] 38.0 % Low 40-54 [facility] Comment on above: Performed By: #### L 500.4050, L100.0100, L501.9520, L502.0500, L400.2010 ####[facility] [address] [place], [address] Hemoglobin (Bld) [Mass/Vol] 12.1 g/dL Low 13.0-16. 5 [facility] Comment on above: Performed By: #### L 500.4050, L100.0100, L501.9520, L502.0500, L400.2010 ####[facility] [address] [place], [address] IG% 0.200 Normal 0.0-0.9 [facility] Comment on above: Result Comment: IG% - Immature Granulocytes (promyelocytes, myelocytes and metamyelocytes) > 1% indicates that a LEFT SHIFT is Present. Performed By: #### L 500.4050, L100.0100, L501.9520, L502.0500, L400.2010 ####[facility] [address] [place], [address] Lymphocytes/100 WBC (Bld) 29.6 % Normal 19-41 [facility] Comment on above: Performed By: #### L 500.4050, L100.0100, L501.9520, L502.0500, L400 ####[facility] [address] [place], [address] MCH (RBC) [Entitic mass] 29.2 pg Normal 27.0-32.0 [facility] Comment on above: Performed By: #### L 500.4050, L100.0100, L501.9520, L502.0500, L400.2010 ####[facility] [address] [place], [address] MCHC (RBC) [Mass/Vol] 31.8 g/dL Low 32-36 [facility] Comment on above: Performed By: #### L 500.4050, L100.0100, L501.9520, L502.0500, L400.2010 ####[facility] [address] [place], [address] MCV (RBC) [Entitic vol] 91.8 fL Normal 80-94 [facility] Comment on above: Performed By: #### L 500.4050, L100.0100, L501.9520, L502.0500, L400.2010 ####[facility] [address] [place], [address] Monocytes/100 WBC (Bld) 7.9 % Normal 0-10 [facility] Comment on above: Performed By: #### L 500.4050, L100.0100, L501.9520, L502.0500, L400.2010 ####[facility] [address] [place], [address] Neutrophils/100 WBC (Bld) 57.7 % Normal 47-70 [facility] Comment on above: Performed By: #### L 500.4050, L100.0100, L501.9520, L502.0500, L400.2010 ####[facility] [address] [place], [address] Nucleated RBC (Bld) [#/Vol] 0 10*3/uL Normal 0-5 [facility] Comment on above: Performed By: #### L 500.4050, L100.0100, L501.9520, L502.0500, L400.2010 ####[facility] [address] [place], [address] Platelet mean volume (Bld) [Entitic vol] 10.5 fL Normal 6.2-12.0 [facility] Comment on above: Performed By: #### L 500.4050, L100.0100, L501.9520, L502.0500, L400.2010 ####[facility] [address] [place], [address] Platelets (Bld) [#/Vol] 160 10*3/uL Normal 150-450 [facility] Comment on above: Performed By: #### L 500.4050, L100.0100, L501.9520, L502.0500, L400.2010 ####[facility] [address] [place], [address] RBC (Bld) [#/Vol] 4.14 10*6/uL Low 4.6-6.2 [facility] Comment on above: Performed By: #### L 500.4050, L100.0100, L501.9520, L502.0500, L400.2010 ####[facility] [address] [place], [address] RDW SD 45.0 fl High 35.1-43.9 [facility] Comment on above: Performed By: #### L 500.4050, L100.0100, L501.9520, L502.0500, L400.2010 ####[facility] [address] [place], [address] WBC (Bld) [#/Vol] 5.1 10*3/uL Normal 4.4-11.0 [facility] Comment on above: Performed By: #### L 500.4050, L100.0100, L501.9520, L502.0500, L400.2010 ####[facility] [address] [place], [address] Comprehensive Metabolic Prof ilon 12-23-2023 Albumin [Mass/Vol] 3.1 g/dL Low 3.2-5.0 [facility] Comment on above: Performed By: #### L 500.4050, L100.0100, L501.9520, L502.0500, L400.2010 ####[facility] [address] [place], [address] Albumin/Globulin [Mass ratio] 0.9 {ratio} Normal 0.9-2.4 [facility] Comment on above: Performed By: #### L 500.4050, L100.0100, L501.9520, L502.0500, L400.2010 ####[facility] [address] [place], [address] ALK P 100 U/L Normal 45-117 [facility] Comment on above: Performed By: #### L 500.4050, L100.0100, L501.9520, L502.0500, L400.2010 ####[facility] [address] [place], [address] ALT [Catalytic activity/Vol] 41 U/L Normal 16-61 [facility] Comment on above: Performed By: #### L 500.4050, L100.0100, L501.9520, L502.0500, L400.2010 ####[facility] [address] [place], [address] AST [Catalytic activity/Vol] 33 U/L Normal 15-37 [facility] Comment on above: Performed By: #### L 500.4050, L100.0100, L501.9520, L502.0500, L400.2010 ####[facility] [address] [place], [address] Bilirubin [Mass/Vol] 0.60 mg/dL Normal 0.20-1.00 [facility] Comment on above: Result Comment: For patients on eltrombopag therapy, use of Dimension Maupin TBIL is not recommended. Performed By: #### L 500.4050, L100.0100, L501.9520, L502.0500, L400.2010 ####[facility] [address] [place], [address] BUN/CRE 18.6 RATIO Normal 10-20 [facility] Comment on above: Performed By: #### L 500.4050, L100.0100, L501.9520, L502.0500, L400.2010 ####[facility] [address] [place], [address] CA,Total 8.8 mg/dL Normal 8.5-10.1 [facility] Comment on above: Performed By: #### L 500.4050, L100.0100, L501.9520, L502.0500, L400.2010 ####[facility] [address] [place], [address] Chloride [Moles/Vol] 109 mmol/L High 98-107 [facility] Comment on above: Performed By: #### L 500.4050, L100.0100, L501.9520, L502.0500, L400.2010 ####[facility] [address] [place], [address] CO2 [Moles/Vol] 23.0 mmol/L Normal 21.0-32.0 [facility] Comment on above: Performed By: #### L 500.4050, L100.0100, L501.9520, L502.0500, L400.2010 ####[facility] [address] [place], [address] Creatinine [Mass/Vol] 0.97 mg/dL Normal 0.70-1.30 [facility] Comment on above: Result Comment: The validity of the calculated GFR GFRAA in patients over 70 years has not been determined. Clinical correlation is essential. Performed By: #### L 500.4050, L100.0100, L501.9520, L502.0500, L400.2010 ####[facility] [address] [place], [address] EST GFR - AA 101 mL/min Normal >60 [facility] Comment on above: Result Comment: Afri can Belarusian GFR Calc Performed By: #### L 500.4050, L100.0100, L501.9520, L502.0500, L400.2010 ####[facility] [address] [place], [address] GAP 8 Normal 5-15 [facility] Comment on above: Performed By: #### L 500.4050, L100.0100, L501.9520, L502.0500, L400.2010 ####[facility] [address] [place], [address] GFR/1.73 sq M.predicted among non-blacks MDRD (S/P/Bld) [Vol rate/Area] 83 mL/min/{1.73_m2} Normal >60 [facility] Comment on above: Result Comment: Non- GFR Calc Performed By: #### L 500.4050, L100.0100, L501.9520, L502.0500, L400.2010 ####[facility] [address] [place], [address] Globulin (S) [Mass/Vol] 3.3 g/dL Normal 2.2-4.2 [facility] Comment on above: Performed By: #### L 500.4050, L100.0100, L501.9520, L502.0500, L400.2010 ####[facility] [address] [place], [address] Glucose [Mass/Vol] 103 mg/dL Normal 74-106 [facility] Comment on above: Result Comment: Fast ing Glucose result from 100 to 125 mg/dL suggests IMPAIRED HOMEOSTASIS per A.D.A. criteria. Performed By: #### L 500.4050, L100.0100, L501.9520, L502.0500, L400.2010 ####[facility] [address] [place], [address] Potassium [Moles/Vol] 4.0 mmol/L Normal 3.5-5.1 [facility] Comment on above: Performed By: #### L 500.4050, L100.0100, L501.9520, L502.0500, L400.2010 ####[facility] [address] [place], [address] Sodium [Moles/Vol] 140 mmol/L Normal 136-145 [facility] Comment on above: Performed By: #### L 500.4050, L100.0100, L501.9520, L502.0500, L400.2010 ####[facility] [address] [place], [address] T PROT 6.4 g/dL Normal 6.4-8.2 [facility] Comment on above: Performed By: #### L 500.4050, L100.0100, L501.9520, L502.0500, L400.2010 ####[facility] [address] [place], [address] Urea nitrogen [Mass/Vol] 18 mg/dL Normal 7-18 [facility] Comment on above: Performed By: #### L 500.4050, L100.0100, L501.9520, L502.0500, L400.2010 ####[facility] [address] [place], [address] Microalbumin,Random Urineon 12-23-2023 MICROALBUMIN,UR 68.5 mg/L Normal NO RANGE EST. [facility] Comment on above: Performed By: #### L 500.4050, L100.0100, L501.9520, L502.0500, L400.2010 ####[facility] [address] [place], [address] Thyroid Stim Hormone (TSH)on 12-23-2023 TSH 3.500 uIU/mL Normal 0.358-3.740 [facility] Comment on above: Performed By: #### L 500.4050, L100.0100, L501.9520, L502.0500, L400.2010 ####[facility] [address] [place], [address] Urinalysis, Routine (Dipstic k)on 12-23-2023 BILIRUBIN URINE Negative Normal Negative [facility] Comment on above: Order Comment: Urine , Random Performed By: #### L 500.4050, L100.0100, L501.9520, L502.0500, L400.2010 ####[facility] [address] [place], [address] Clarity (U) Clear Normal Clear [facility] Comment on above: Order Comment: Urine , Random Performed By: #### L 500.4050, L100.0100, L501.9520, L502.0500, L400.2010 ####[facility] [address] [place], [address] Color (U) Yellow Normal Yellow [facility] Comment on above: Order Comment: Urine , Random Performed By: #### L 500.4050, L100.0100, L501.9520, L502.0500, L400.2010 ####[facility] [address] [place], [address] GLUCOSE, UR Normal Normal Normal [facility] Comment on above: Order Comment: Urine , Random Performed By: #### L 500.4050, L100.0100, L501.9520, L502.0500, L400.2010 ####[facility] [address] [place], [address] KETONE UR Negative Normal Negative [facility] Comment on above: Order Comment: Urine , Random Performed By: #### L 500.4050, L100.0100, L501.9520, L502.0500, L400.2010 ####[facility] [address] [place], [address] LEUK ESTERASE 25 /ul Abnormal Negative [facility] Comment on above: Order Comment: Urine , Random Performed By: #### L 500.4050, L100.0100, L501.9520, L502.0500, L400.2010 ####[facility] [address] [place], [address] Nitrite Ql (U) Negative Normal Negative [facility] Comment on above: Order Comment: Urine , Random Performed By: #### L 500.4050, L100.0100, L501.9520, L502.0500, L400.2010 ####[facility] [address] [place], [address] OCCULT BLOOD-UR 10 /ul Abnormal Negative [facility] Comment on above: Order Comment: Urine , Random Performed By: #### L 500.4050, L100.0100, L501.9520, L502.0500, L400.2010 ####[facility] [address] [place], [address] pH UR 6.0 Normal 5.0 - 8.0 [facility] Comment on above: Order Comment: Urine , Random Performed By: #### L 500.4050, L100.0100, L501.9520, L502.0500, L400.2010 ####[facility] [address] [place], [address] PROT DIPSTX 15 mg/dl Abnormal Negative [facility] Comment on above: Order Comment: Urine , Random Performed By: #### L 500.4050, L100.0100, L501.9520, L502.0500, L400.2010 ####[facility] [address] [place], [address] SP.GR. DIPSTX 1.015 Normal 1.002-1.030 [facility] Comment on above: Order Comment: Urine , Random Performed By: #### L 500.4050, L100.0100, L501.9520, L502.0500, L400.2010 ####[facility] [address] [place], [address] UROBILI 1 mg/dl Abnormal Normal [facility] Comment on above: Order Comment: Urine , Random Performed By: #### L 500.4050, L100.0100, L501.9520, L502.0500, L400.2010 ####[facility] [address] [place], [address] Large Joint Arthro/Inj: R sh oulder jointon 10-17-2023 Tino Zuleta MD 10/17/2023 1:39 PM Large Joint Arthro/Inj: R shoulder joint 10/17/2023 1:38 PM The procedure site was prepped in the usual sterile fashion. Site: R shoulder joint Medications: 80 mg triamcinolone acetonide 40 mg/mL Anesthetics: 4 mL bupivacaine (PF) 0.25 % (2.5 mg/mL) Outcome: Tolerated well, no immediate complications Post-injection instructions were reviewed with the patient and the patient voiced understanding of these instructions. [facility] ANES POSTPROC EVALon 024 ANES POSTPROC EVAL HNO ID: [id number] Author: DEMETRIUS MAHMOOD MD Service: Anesthesiology Author Type: Anesthesiologist Type: Anesthesia Postprocedure Evaluation Filed: 10/06/2023 13:13 Note Text: POST ANESTHESIA EVALUATION NOTE : 1960 Procedure Summary Date: 10/06/23 Room / Location: [place] [address] / [place] Anesthesia Start: 735 Anesthesia Stop: 846 Procedure: ARTHROSCOPY SHOULDER W/ LYSIS ADHESIONS WITH MANIPULATION (Right: Shoulder) Diagnosis: Adhesive capsulitis of right shoulder (Adhesive capsulitis of right shoulder [M75.01]) Surgeons: Tino Zuleta MD Responsible Provider: Marga Pierce MD Anesthesia Type: general, regional ASA Status: 3 Anesthesia Type: general, regional Airway Type: ETT Last Vitals Vitals Value Taken Time BP 136/62 10/06/23 1000 Temp 36.2 ?C (97.2 ?F) 10/06/23 1000 Pulse 52 10/06/23 1113 Resp 10 10/06/23 1010 SpO2 92 % 10/06/23 1113 Vitals shown include unfiled device data. Post Anesthesia Patient Status Patient Evaluation: bedside. Anticipated Disposition: phase 2 then home. Neurological Status: aware and responsive. Pulmonary Status: breathing comfortably on room air Airway Control: returned to baseline unsupported. Cardiovascular Status: stable. Pain Management: clinically adequate Postoperative Hydration: acceptable. Intraoperative Events: no significant anesthesia events Post Operative Nausea/Vomiting Status: no significant post operative nausea or vomiting Recommendation: continue current plan of care. Anesthesia Observations No Documentation SIGNATURE: Demetrius Mahmood MD PATIENT NAME: Bradley Keys DATE: October 06, 2023 TIME: 1:13 PM CSN: [id number] [facility] ANES PRE-OPon 10-06-2023 ANES PRE-OP HNO ID: [id number] Author: MARGA PIERCE MD Service: Anesthesiology Author Type: Anesthesiologist Type: Anesthesia Preprocedure Evaluation Filed: 10/06/2023 07:09 Note Text: ANESTHESIOLOGY DAY OF SURGERY NOTE : 1960 Procedure Information Date/Time: 10/06/23729 Procedure: ARTHROSCOPY SHOULDER W/ LYSIS ADHESIONS WITH MANIPULATION (Right: Shoulder) Location: [place] [address] / [place] Surgeons: Tino Zuleta MD Estimated body mass index is 33.52 kg/m? as calculated from the following: Height as of this encounter: 170.2 cm (5' 7). Weight as of this encounter: 97.1 kg (214 lb). Most recent hematocrit and potassium results: Hematocrit 43.1 08/14/2023 Potassium 4.0 09/19/2023 Relevant Problems No relevant active problems I - PHYSICAL EVALUATION AIRWAY Patient intubated: No. Tracheostomy tube not present Mallampati: II. TM distance: >3 FB. Neck ROM: full ROM without neurological symptoms. Mouth opening: adequate. Short neck: no. Thick neck: no DENTAL Dental findings: teeth intact. Dentures, upper: complete. Additional exam findings: yes. CARDIOVASCULAR Rhythm: regular PULMONARY Breath sounds clear to auscultation. II - ANESTHESIA PLAN ASA Score: 3 Anesthetic Plan: general and regional Airway type: ETT The patient is not a current smoker. 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 Beta Freedom Monitoring Plan Monitoring plan: Standard ASA. Post Procedure Analgesic Plan Postoperative analgesic plan: parenteral or oral opioids and multimodal analgesia. Informed Consent Anesthetic risks, benefits, alternatives, personnel and consent discussed: yes. Patient / Responsible Democrat agrees to proceed: yes Patient / Surrogate agrees to blood products: yes DNR status not reviewed with patient and/or family prior to surgery. Significant changes in the patient condition since the History and Physical, not otherwise documented in primary service progress note: no. Potential Anesthesia issues that may suggest increased risk of complications or contraindication to planned procedure: none. Vitals Value Taken Time BP 151/69 10/06/23 0629 Pulse 50 10/06/23 0629 Resp 18 10/06/23 0629 Temp 37.3 ?C (99.1 ?F) 10/06/23 06 SpO2 98 % 10/06/23 0629 Facility-Administere d Medications as of 10/06/2023 Medication Dose Route Frequency - [COMPLETED] acetaminophen 1,000 mg tab(s) (TYLENOL) 1,000 mg ORAL Pre-Op Once - scopolamine 1 mg over 3 days 1 Patch (TRANSDERM-SCOP) 1 Patch TRANSDERMAL q 72 HR And - scopolamine - REMOVE PATCH OTHER q 72 HR And - scopolamine - VERIFY patch OTHER q 8 H - [COMPLETED] promethazine 12.5 mg tab(s) (PHENERGAN) 12.5 mg ORAL Pre-Op Once - [COMPLETED] famotidine 20 mg injection (PEPCID) 20 mg INTRAVENOUS ONCE - [COMPLETED] midazolam (PF) 1-2 mg injection (VERSED) 1-2 mg INTRAVENOUS ONCE - lidocaine (PF) 10 mg/mL (1 %) 1-2 mg injection (XYLOCAINE) 0.1-0.2 mL INTRADERMAL PRN - lactated ringers iv infusion 5-30 mL/hr INTRAVENOUS CONTINUOUS - NaCl 0.9% iv flush bag 20 mL INTRAVENOUS PRN - ceFAZolin iv piggyback 2 g in D5W (iso-osmotic) 100 mL (ANCEF) 2 g INTRAVENOUS Pre-Op Once Outpatient Medications as of 10/06/2023 Medication Sig - gabapentin (NEURONTIN) 300 mg capsule Take 300 mg by mouth three times a day. - aspirin 81 mg chewable tablet Take 81 mg by mouth once daily. - OYSTER SHELL CALCIUM-VITAMIN D 500 mg(1,250mg) -200 unit per tablet Take 1 tablet by mouth once daily. - docusate sodium (COLACE) 100 mg capsule Take 100 mg by mouth as needed. - Zinc 50 mg tab Take 50 mg by mouth once daily. - multivit with minerals/lutein (CEROVITE SENIOR ORAL) Take by mouth. - topiramate (TOPAMAX) 50 mg tablet Take 50 mg by mouth twice daily. - atorvastatin (LIPITOR) 40 mg tablet Take 40 mg by mouth once daily. - melatonin 3 mg tablet Take 2 tablets by mouth daily at bedtime. - Cholecalciferol, Vitamin D3, 2,000 unit cap Take 2 capsules by mouth once daily. - omeprazole (PRILOSEC) 20 mg capsule Take 20 mg by mouth once daily. - citalopram (CELEXA) 20 mg tablet Take 30 mg by mouth once daily. - levothyroxine (SYNTHROID) 100 mcg tablet Take 100 mcg by mouth daily before breakfast. - cyanocobalamin, vitamin B-12, (VITAMIN B-12 ORAL) Take 500 Units by mouth two times a day. - multivit-min/folic/v it K/lycop (ONE-A-DAY MEN'S MULTIVITAMIN ORAL) Take 1 tablet by mouth once daily. - TRULICITY 1.5 mg/0.5 mL pen injector inject1.5 mg subcutaneously every week as directed - acetaminophen (TYLENOL) 325 mg tablet Take 650 mg by mouth every 6 hours as needed. - NURTEC ODT 75 mg disintegrating tablet TAKE 1 TABLET BY MOUTH DAILY NEEDED for onset OF migrainse, no more than 1 (ONE) dose in 24 hours DIRECTED FOR 30 DAYS - blood sugar diagnostic (ONETOUCH VERIO TEST STRIPS) test strip Use to test glucose once daily as directed. DX: E11.42, non insulin dep (more content not included)... Normal [facility] GLUCOSE, BLOOD (POC)on 10-05 Glucose [Mass/Vol] 104 mg/dL Abnormal 74 - 99 mg/dL [facility] Comment on above: Location:[facility], [place], [facility] [place], [place], [address] The Accu-Chek Inform II glucose meter has not been approved for testing on patients receiving intensive medical intervention or therapy and results from this point of care glucose test should not be used for patient management decisions in these cases. Inaccurate results may also occur from other interfering factors, such as N-acetylcysteine (blood concentrations of greater than 5mg/dL), galactose, extremes of hematocrit (<10 or >65), or high doses of ascorbic acid (vitamin C) greater than 3mg/dL. Consider alternate testing mechanisms (e.g. core lab, blood gas instrument) in the above situations. Interpretation and review of laboratory results Abnormal [facility] Glucose [Mass/Vol] 83 mg/dL 74 - 99 mg/dL [facility] Comment on above: Location:[facility], [place], [facility] [place], [place], [address] The Accu-Chek Inform II glucose meter has not been approved for testing on patients receiving intensive medical intervention or therapy and results from this point of care glucose test should not be used for patient management decisions in these cases. Inaccurate results may also occur from other interfering factors, such as N-acetylcysteine (blood concentrations of greater than 5mg/dL), galactose, extremes of hematocrit (<10 or >65), or high doses of ascorbic acid (vitamin C) greater than 3mg/dL. Consider alternate testing mechanisms (e.g. core lab, blood gas instrument) in the above situations. [facility] HISTORY PHYSICALon HISTORY PHYSICAL HNO ID: [id number] Author: TINO ZULETA MD Service: Orthopaedic Surgery Author Type: Physician Type: H&P Filed: 10/06/2023 07:34 Note Text: UPDATED HISTORY AND PHYSICAL EXAMINATION SERVICE DATE: 10/06/2023 SERVICE TIME: 7:34 AM PHYSICAL EXAM MUST BE COMPLETED ON ADMISSION The History and Physical (completed in the past 30 days) has been reviewed and the patient has been examined. The contents accurately reflect the patient's condition with the following additions or revisions since the HANDP was completed. Examination indicates no changes. This HANDP can be found in the Electronic Medical Record dated 09/19/23. SIGNATURE: Tino Zuleta MD PATIENT NAME: Bradley Keys DATE: October 06, 2023 TIME: 7:34 AM [facility] OPERATIVE NOon 10-06-2023 OPERATIVE NO HNO ID: [id number] Author: TINO ZULETA MD Service: Orthopaedic Surgery Author Type: Physician Type: Operative Report Filed: 10/06/2023 09:32 Note Text: OPERATIVE/PROCEDURE REPORT LOG ID: [id number] SURGERY/PROCEDURE DATE: 10/06/2023 INCISION/PROCEDURE START TIME: 8:10 AM INCISION CLOSE/PROCEDURE END TIME: 8:28 AM SURGEON(S)/PROCEDURA LIST(S) AND WIND UP WORKER(S): Surgeon(s) and Role: * Tino Zuleta MD - Primary * Osmany Bassett MD - Resident - Assisting Nurse Practitioner: Darcie Espinoza APRN.IN HOUSE COUNSEL Physician Responder: Desiree Gill PA-C SURGERY/PROCEDURE(S) : Right shoulder arthroscopic capsular release and manipulation ANESTHESIA: General SURGERY/PROCEDURE DETAILS: Bradley Keys is a 62 year old man who had initially undergone right shoulder arthroscopic capsular release with manipulation in 2022 but unfortunately continued to have stiffness following surgery and required continued management of the right shoulder with physical therapy and daily home stretching. When this failed to provide him with a good outcome he returned to the office to discuss possible revision surgery. After assessing his full range of motion and limited response to the first procedure I did offer him revision arthroscopic capsular release with manipulation. Risk benefits and alternatives to the procedure were discussed in the office prior to scheduling surgery. He was scheduled for the next available surgical date. Patient was greeted in the presurgical holding area. Informed consent was reviewed. The right shoulder was marked as the operative site. Presurgical meeting was held and he was then taken to the operating room and positioned supine on operating table. General anesthesia was induced with endotracheal intubation. He was placed in the beachchair position with all bony prominences padded. The right upper extremity was prepped and draped in standard sterile fashion. Presurgical antibiotic was administered. Presurgical timeout procedure was performed. I began the procedure by making a standard posterior portal and introducing the arthroscope using his previous incision. Upon entering the joint there was no erythema or inflammation. There was a small amount of scar tissue within the rotator interval. The biceps tendon was intact. There was no rotator cuff tear of subscapularis or supraspinatus. There was minimal fraying of the labrum and intact glenoid and humeral cartilage. I made an anterior portal using outside in technique after localizing the spinal needle. I introduced the electrothermal probe and shaver to release the rotator interval. The electrothermal probe was used to release the anterior superior capsule over the glenoid and behind the glenoid labrum reaching to approximately the 10 o'clock position posteriorly. There was no further release of the capsule necessary anteriorly. I introduced the arthroscope into the anterior portal and assessed the posterior capsule. This was not inflamed and appeared normal. The arthroscope was then removed and placed in the subacromial space. I made a lateral portal using needle localization. Moderate amount of scar tissue was released from the subacromial space and the rotator cuff insertion. There was no apparent tearing of the supraspinatus tendon. There was no erythema or inflammation to suggest ongoing adhesive capsulitis. The arthroscope was removed. A gentle manipulation of the right shoulder was then performed. With palpable and audible releasing of adhesions I was able to obtain 180 degrees of elevation and 90 degrees of both internal and external rotation with the arm in 90 degrees of abduction. I was satisfied with this and this concluded the procedure. Portal incisions were closed with Monocryl suture. Dry sterile dressing was applied to the right shoulder. He was placed in a shoulder sling and awakened from anesthesia. He was taken to recovery in good condition. No qualified resident/fellow was available. press assistant, Desiree Gill PA-C, assisted with patient positioning, retraction and assistance during the procedure, as well as deep and superficial wound closure. PRE-OP/PRE-PROCEDURE DIAGNOSIS: Right shoulder adhesive capsulitis POST-OP/POST-PROCEDU RE DIAGNOSIS: Same as Preop ESTIMATED BLOOD LOSS: 10 mls SPECIMENS: None IMPLANTABLE DEVICES: NONE DRAINS: None COMPLICATIONS: None CLOSURE TECHNIQUE: Primary PARTICIPATION IN SURGERY/PROCEDURE: No qualified resident/fellow was available. SIGNATURE: Tino Zuleta MD PATIENT NAME: Bradley Keys DATE: October 06, 2023 TIME: 9:27 AM [facility] PT EDon 09-23-2023 PT ED HNO ID: [id number] Author: MYRNA PERDOMO PA-C Service: General Surgery Author Type: Physician Responder Type: Patient Education Filed: 09/23/2023 18:16 Note Text: TELEPHONE ENCOUNTER Bradley Keys's medication list was reviewed and patient was noted to be taking Trulicity per his chart. During PAT exam 09/19/2023, documentation of discussion for that the patient hold their medication 7 day(s) prior to their date of surgery. SIGNATURE: Myrna Perdomo PA-C PATIENT NAME: Bradley Keys DATE: September 23, 2023 [facility] Comprehensive metabolic 2000 panelOrdered By: Lavonne Ventura on 09-19-2023 Albumin [Mass/Vol] 3.9 g/dL 3.9 - 4.9 g/dL [facility] ALP [Catalytic activity/Vol] 121 U/L High 38 - 113 U/L [facility] ALT [Catalytic activity/Vol] 34 U/L 10 - 54 U/L [facility] Anion gap [Moles/Vol] 7 mmol/L Low 8 - 15 mmol/L [facility] AST [Catalytic activity/Vol] 24 U/L 14 - 40 U/L [facility] Bilirubin [Mass/Vol] 0.4 mg/dL 0.2 - 1 .3 mg/dL [facility] Calcium [Mass/Vol] 8.9 mg/dL 8.5 - 10. 2 mg/dL [facility] Chloride [Moles/Vol] 110 mmol/L High 98 - 10 7 mmol/L [facility] CO2 [Moles/Vol] 22 mmol/L 22 - 30 mmol/L [facility] Creatinine [Mass/Vol] 0.97 mg/dL 0.73 - 1.22 mg/dL [facility] GFR/1.73 sq M.predicted among non-blacks MDRD (S/P/Bld) [Vol rate/Area] 88 mL/min/{1.73_m2} - [facility] Comment on above: Estimated Glomerular Filtration Rate (eGFR) is calculated using the 2020 CKD-EPI creatinine equation. This equation utilizes serum creatinine, sex, and age as parameters. The creatinine assay has traceable calibration to isotope dilution-mass spectrometry. Refer to KDIGO guidelines for clinical interpretation. In patients with unstable renal function, e.g. those with acute kidney injury, the eGFR may not accurately reflect actual GFR. Glucose [Mass/Vol] 176 mg/dL High 74 - 99 mg/dL [facility] Comment on above: The [place] Diab[employer] s Association (ADA) provides guidance for cutoff values for fasting glucose and random glucose. The ADA defines fasting as no caloric intake for at least 8 hours. Fasting plasma glucose results between 100 to 125 mg/dL indicate increased risk for diabetes (prediabetes). Fasting plasma glucose results greater than or equal to 126 mg/dL meet the criteria for diagnosis of diabetes. In the absence of unequivocal hyperglycemia, results should be confirmed by repeat testing. In a patient with classic symptoms of hyperglycemia or hyperglycemic crisis, random plasma glucose results greater than or equal to 200 mg/dL meet the criteria for diagnosis of diabetes. Reference: Standards of Medical Care in Diabetes 2016, [place] [employer]. Diabetes Care. 2016.39(Suppl 1). Interpretation and review of laboratory results Abnormal [facility] Potassium [Moles/Vol] 4.0 mmol/L 3.7 - 5.1 mmol/L [facility] Protein [Mass/Vol] 5.8 g/dL Low 6.3 - 8.0 g/dL [facility] Sodium [Moles/Vol] 139 mmol/L 136 - 144 mmol/L [facility] Urea nitrogen [Mass/Vol] 19 mg/dL 9 - 24 mg/dL [facility] 36on 04-25-2023 36 Patient left message stating he wants his Trulicity to stay at [facility]. They are currently out of stock but wants this to be filled there. Normal [facility] Basophil percentageOrdered B y: JENSEN RUIZ on 04-17-2023 Bilirubin [Mass/Vol] 0.70 mg/dL 0.20-1.00 [facility] Comment on above: For patients on eltr ombopag therapy, use of Dimension Maupin TBIL is not recommended. Chloride [Moles/Vol] 108 mmol/L 98-107 [facility] Cholesterol [Mass/Vol] 117 mg/dL <200 [facility] [place] Comment on above: <200 mg/dL Desirable 200-240 mg/dL Borderline >240 mg/dL High Risk Glucose [Mass/Vol] 90 mg/dL 74-106 [facility] Hemoglobin (Bld) [Mass/Vol] 15.2 g/dL 13.0-16. 5 [facility] Potassium [Moles/Vol] 3.8 mmol/L 3.5-5.1 [facility] Protein [Mass/Vol] 6.9 g/dL 6.4-8.2 [facility] Sodium [Moles/Vol] 137 mmol/L 136-145 [facility] Triglyceride [Mass/Vol] 121 mg/dL <199 [facility] Comment on above: The drugs N-Acetylcy steine and Metamizole may falsely depress this assay.Serum Triglycerides Reference Interval Normal <150 mg/dL Borderline high 150 - 199 mg/dL High 200 - 499 mg/dL Very High > or = 500 mg/dL WBC (Bld) [#/Vol] 7.5 10*3/uL 4.4-11.0 [facility] Determination of erythrocyte mean corpuscular volume (MCV)Ordered By: [facility] on 04-17-2023 MCV (RBC) [Entitic vol] 92.8 fL 80-94 [facility] Erythrocyte distribution wid th ratioOrdered By: [facility] on 04-17-2023 Erythrocyte distribution width (RBC) [Ratio] 13.1 % 11.6-14.6 [facility] Erythrocyte distribution wid th standard deviationOrdered By: [facility] on 04-17-2023 Erythrocyte distribution width (RBC) [Entitic vol] 44.3 fL 35.1-43.9 [facility] Hematocrit Auto (Bld) [Volum e fraction]Ordered By: [facility] on 04-17-2023 Hematocrit (Bld) [Volume fraction] 46.2 % 40-54 [facility] Iron measurement (mass/mass) Ordered By: [facility] on 04-17-2023 Iron (Unsp spec) [Mass/Mass] 119 ug/dL 65-175 [facility] Laboratory - Chemistry and C hemistry - challengeOrdered By: [facility] on 04-17-2023 Albumin/Globulin [Mass ratio] 1.2 {ratio} 0.9-2.4 [facility] ALP [Catalytic activity/Vol] 99 U/L 45-117 [facility] ALT [Catalytic activity/Vol] 57 U/L 16-61 [facility] Cholesterol in HDL (Body fld) [Mass/Vol] 53 mg/dL >40 [facility] Comment on above: The drugs N-Acetylcy steine and Metamizole may falsely depress this assay. Reference Range HDL <40 mg/dL Low HDL Cholesterol HDL >or= 60 mg/dL High HDL Cholesterol Cholesterol in LDL (Body fld) [Moles/Vol] 40 mg/dL 0-130 [facility] Cholesterol in VLDL Calc [Moles/Vol] 24 mg/dL 5-40 [facility] CO2 [Moles/Vol] 26.0 mmol/L 21.0-32.0 [facility] Globulin (S) [Mass/Vol] 3.1 g/dL 2.2-4.2 [facility] Urea nitrogen/Creatinine [Mass ratio] 17.1 mg/mg 10-20 [facility] Laboratory - Hematology and Cell countsOrdered By: [facility] on 04-17-2023 MCH (RBC) [Entitic mass] 30.5 pg 27.0-32.0 [facility] MCHC (RBC) [Mass/Vol] 32.9 g/dL 32-36 [facility] Platelets (Bld) [#/Vol] 189 10*3/uL 150-450 [facility] No Panel InformationOrdered By: [facility] on 04-17-2023 Estimated GFR (MDRD) Amer 113 mL/min >60 [facility] Comment on above: GFR Calc Estimated GFR (MDRD) Non-Af Amer 93 mL/min >60 [facility] Comment on above: Non- GFR Calc Total Iron Binding Capacity 287 ug/dL 250-450 [facility] Platelet mean volume Eloy-Ec ker (Bld) [Entitic vol]Ordered By: JENSEN RUIZ on 04-17-2023 Platelet mean volume (Bld) [Entitic vol] 10.6 fL 6.2-12.0 [facility] RBC Auto (Bld) [#/Vol]Ordere d By: [facility] on 04-17-2023 RBC (Bld) [#/Vol] 4.98 10*6/uL 4.6-6.2 [facility] Serum or plasma calcium fran urement (mass/volume)Ordered By: [facility] on 04-17-2023 Calcium [Mass/Vol] 9.1 mg/dL 8.5-10.1 [facility] Serum or plasma creatinine m easurement (mass/volume)Ordered By: [facility] on 04-17-2023 Creatinine [Mass/Vol] 0.88 mg/dL 0.70-1.30 [facility] Comment on above: The validity of the calculated GFR & GFRAA in patients over 70 years has not been determined. Clinical correlation is essential. Serum or plasma iron saturat ion measurement (mass fraction)Ordered By: [facility] on 04-17-2023 Iron saturation [Mass fraction] 41.5 % 15.0-55.0 [facility] Serum or plasma thyroid stim ulating hormone (TSH) measurement (units/volume)Ordered By: [facility] on 04-17-2023 TSH Qn 4.04 uIU/mL 0.358-3.74 [facility] Serum or plasma urea nitroge n measurement (mass/volume)Ordered By: [facility] on 04-17-2023 Urea nitrogen [Mass/Vol] 15 mg/dL 7-18 [facility] Thin prep Papanicolaou smear with manual screeningOrdered By: [facility] on 04-17-2023 Thin prep Papanicolaou smear with manual screening 3.8 g/dL 3.2-5.0 [facility] Thin prep Papanicolaou smear with manual screening 25 U/L 15-37 [facility] Thin prep Papanicolaou smear with manual screening 3 5-15 [facility] Thin prep Papanicolaou smear with manual screening < 5.0 mg/L NO RANGE EST. [facility] Thin prep Papanicolaou smear with manual screening 0.90 ng/dL 0.76-1.46 [facility] Basophil percentageOrdered B y: Mandi Sandoval on 10-11-2022 Bilirubin [Mass/Vol] 0.70 mg/dL 0.20-1.00 [facility] Comment on above: For patients on eltr ombopag therapy, use of Dimension Maupin TBIL is not recommended. Chloride [Moles/Vol] 113 mmol/L 98-107 [facility] Cholesterol [Mass/Vol] 95 mg/dL <200 [facility] [place] Comment on above: <200 mg/dL Desirable 200-240 mg/dL Borderline >240 mg/dL High Risk Glucose [Mass/Vol] 82 mg/dL 74-106 [facility] Potassium [Moles/Vol] 4.1 mmol/L 3.5-5.1 [facility] Protein [Mass/Vol] 6.2 g/dL 6.4-8.2 [facility] Sodium [Moles/Vol] 143 mmol/L 136-145 [facility] Triglyceride [Mass/Vol] 60 mg/dL <199 [facility] Comment on above: The drugs N-Acetylcy steine and Metamizole may falsely depress this assay.Serum Triglycerides Reference Interval Normal <150 mg/dL Borderline high 150 - 199 mg/dL High 200 - 499 mg/dL Very High > or = 500 mg/dL WBC (Bld) [#/Vol] 5.8 10*3/uL 4.4-11.0 [facility] Blood erythrocytes count (nu mber/volume)Ordered By: Mandi Sandoval on 10-11-2022 RBC (Bld) [#/Vol] 4.77 10*6/uL 4.6-6.2 [facility] Blood hemoglobin measurement (mass/volume)Ordered By: Mandi Sandoval on 10-11-2022 Hemoglobin (Bld) [Mass/Vol] 14.6 g/dL 13.0-16. 5 [facility] Blood platelet mean volumeOr dered By: Mandi Sandoval on 10-11-2022 Platelet mean volume (Bld) [Entitic vol] 10.5 fL 6.2-12.0 [facility] Determination of erythrocyte mean corpuscular volume (MCV)Ordered By: Mandi Sandoval on 10-11-2022 MCV (RBC) [Entitic vol] 94.1 fL 80-94 [facility] Hematocrit Auto (Bld) [Volum e fraction]Ordered By: Mandi Sandoval on 10-11-2022 Hematocrit (Bld) [Volume fraction] 44.9 % 40-54 [facility] Laboratory - Chemistry and C hemistry - challengeOrdered By: Mandi Sandoval on 10-11-2022 ALP [Catalytic activity/Vol] 109 U/L 45-117 [facility] ALT [Catalytic activity/Vol] 34 U/L 16-61 [facility] CO2 [Moles/Vol] 23.0 mmol/L 21.0-32.0 [facility] Globulin (S) [Mass/Vol] 2.8 g/dL 2.2-4.2 [facility] Urea nitrogen/Creatinine [Mass ratio] 12.9 mg/mg 10-20 [facility] Laboratory - Hematology and Cell countsOrdered By: Mandi Sandoval on 10-11-2022 Erythrocyte distribution width (RBC) [Entitic vol] 46.2 fL 35.1-43.9 [facility] Erythrocyte distribution width (RBC) [Ratio] 13.3 % 11.6-14.6 [facility] MCH (RBC) [Entitic mass] 30.6 pg 27.0-32.0 [facility] MCHC Auto (RBC) [Mass/Vol]Or dered By: Mandi Sandoval on 10-11-2022 MCHC (RBC) [Mass/Vol] 32.5 g/dL 32-36 [facility] No Panel InformationOrdered By: Mandi Sandoval on 10-11-2022 Estimated GFR (MDRD) Amer 96 mL/min >60 [facility] Comment on above: GFR Calc Estimated GFR (MDRD) Non-Af Amer 80 mL/min >60 [facility] Comment on above: Non- GFR Calc Thyroid Stimulating Hormone (TSH) 0.41 uIU/mL 0.358-3.74 [facility] Platelets bldOrdered By: Beryl Sandoval on 10-11-2022 Platelets (Bld) [#/Vol] 169 10*3/uL 150-450 [facility] Serum or plasma albumin fran urement (mass/volume)Ordered By: Mandi Sandoval on 10-11-2022 Albumin [Mass/Vol] 3.4 g/dL 3.2-5.0 [facility] Serum or plasma albumin/glob ulin mass ratioOrdered By: Mandi Sandoval on 10-11-2022 Albumin/Globulin [Mass ratio] 1.2 {ratio} 0.9-2.4 [facility] Serum or plasma calcium fran urement (mass/volume)Ordered By: Mandi Sandoval on 10-11-2022 Calcium [Mass/Vol] 8.5 mg/dL 8.5-10.1 [facility] Serum or plasma cholesterol in HDL measurement (mass/volume)Ordered By: Mandi Sandoval on 10-11-2022 Cholesterol in HDL [Mass/Vol] 56 mg/dL >40 [facility] Comment on above: The drugs N-Acetylcy steine and Metamizole may falsely depress this assay. Reference Range HDL <40 mg/dL Low HDL Cholesterol HDL >or= 60 mg/dL High HDL Cholesterol Serum or plasma cholesterol in VLDL measurement (mass/volume)Ordered By: Mandi Sandoval on 10-11-2022 Cholesterol in VLDL [Mass/Vol] 12 mg/dL 5-40 [facility] [facility] Serum or plasma creatinine m easurement (mass/volume)Ordered By: Mandi Sandoval on 10-11-2022 Creatinine [Mass/Vol] 1.01 mg/dL 0.70-1.30 [facility] Comment on above: The validity of the calculated GFR & GFRAA in patients over 70 years has not been determined. Clinical correlation is essential. Serum or plasma low density lipoprotein (LDL) cholesterol measurement (mass/volume)Ordered By: Mandi Sandoval on 10-11-2022 Cholesterol in LDL [Mass/Vol] 27 mg/dL 0-130 [facility] Serum or plasma urea nitroge n measurement (mass/volume)Ordered By: Mandi Sandoval on 10-11-2022 Urea nitrogen [Mass/Vol] 13 mg/dL 7-18 [facility] Thin prep Papanicolaou smear with manual screeningOrdered By: Mandi Sandoval on 10-11-2022 Thin prep Papanicolaou smear with manual screening 21 U/L 15-37 [facility] Thin prep Papanicolaou smear with manual screening 7 5-15 [facility] Thin prep Papanicolaou smear with manual screening 8.8 mg/L NO RANGE EST. [facility] Office Visiton 07-01-2022 Follow-up visit [id number] Bradley Keys 1960 M Date Provider Department Center 07/01/2022 [id number] RICE [facility] WT None Family History Problem Relation Age of Onset Heart disease Brother Hypertension Mother Heart disease Mother Diabetes Sister Diabetes Mother Diabetes Father Hypertension Sister Stroke Mother Heart disease Sister Clotting disorder Father Hypertension Father Cancer Father Family Status - Relation Status Age at Brother Mother Sister Father Level of Service:93215 [place] OFFICE/OUTPATIENT ESTABLISHED MOD MDM 30-39 MIN Reason for Visit and Comments: Bariatrics Post Op Follow-up [884] - POP D/E FU Normal [facility] Progress Noteon 07-01-2022 Progress Note [facility] ROOMING NOTE POST WEIGHT LOSS SURGERY FOLLOW UP Patient: Bradley Keys Service Date: 07/01/2022 Patient is 3 year(s) s/p RnY Gastric Bypass Today's Metrics: Post-Surgical Weight Loss Date: 07/01/22 Height: 5' 7 (170.2 cm) Weight: 215 lb (97.5 kg) BMI: 33.67 Weight Change: -9.4 lbs Total Weight Change: -144.4 lbs % EBWL: 68% Post-op Weight Metrics: Post-Surgical Weight Loss Date: 07/01/22 Height: 5' 7 (170.2 cm) Weight: 215 lb (97.5 kg) BMI: 33.67 Weight Change: -9.4 lbs Total Weight Change: -144.4 lbs % EBWL: 68% (From Surgical Weight Loss Tracker) Patient has the following questions: None Reported Pain: Patient rates pain on scale 0-10 as: 0 Exercise Compliance: Exercising: yes If yes: Type: physical therapy Times per week: 2 Min per session: 30 Falls Risk Assessment Patient does not take medications which affect BP or mental status Patient does not t have newly prescribed or changed dosage of medications within past 30 days which affect BP or mental status Patient has not fallen in the past 2 months Patient does not t demonstrate unsteady gait Patient uses the following ambulatory assistive devices: none Patient states the presence of the following traits which increases risk of fall: none Patient is not on home O2 Pre-op Weight Metrics: Labs Completed: no - If NO, patient instructed to get labs drawn today or SHAWN If YES: Labs completed at [facility]? N/A If yes see Labs Tab Labs completed at Non-[facility] facility? N/A If yes see Encounters Tab - Orders only - Historical Provider - Date: Completed by: Lakisha Velasco MA [facility] 06-19-2022 36 Bradley called on 06/18 and stated that his pharmacy said insurance has denied the Monjouro. Prior auth was done. He wants to know what to do now? [facility] 3606-05-2022 36 Prior auth denied. [facility] 3606-04-2022 36 PA started waiting on response pt informed. [facility] 36 Name of caller: Bradley Contact phone number: [phone] Relationship to Patient: patient Provider: Dr Rice Practice: Weight management Chief Complaint/Reason for Call: Tirzepatide (Mounjaro) 2.5 MG/0.5ML solution pen-injector [[id number]] needs a PA on it and [facility] haven't received it yet and cant release it to the pt. Since PA was denied Pt would like to know when can he expect to get his insulin. Please call pt and advise Best time of day caller can be reached: any Patient advised that office/PCP has 24-48 business hours to return their call: No [place] [id number] 36 Prior auth denied. [facility] 36on 05-22-2022 36 Patient states Veena Goncalves needs a prior auth on his Moujouro. [facility] Office Visiton 05-21-2022 Follow-up visit [id number] Bradley Keys 1960 M Date Provider Department Center 05/21/2022 [id number] RICE [facility] WT None Family History Problem Relation Age of Onset Heart disease Brother Hypertension Mother Heart disease Mother Diabetes Sister Diabetes Mother Diabetes Father Hypertension Sister Stroke Mother Heart disease Sister Clotting disorder Father Hypertension Father Cancer Father Family Status - Relation Status Age at Brother Mother Sister Father Level of Service:[id number] [place] OFFICE/OUTPATIENT ESTABLISHED MOD MDM 30-39 MIN Reason for Visit and Comments: Weight Loss [499005] Bariatrics Post Op Follow-up [884] - POP D/E FU [facility] Progress Noteon 05-21-2022 Progress Note [facility] ROOMING NOTE POST WEIGHT LOSS SURGERY FOLLOW UP Patient: Bradley Keys Service Date: 05/21/2022 Patient is 4 year(s) s/p RnY Gastric Bypass Today's Metrics: Post-Surgical Weight Loss Date: 05/21/22 Height: 5' 7 (170.2 cm) Weight: 224 lb 6.4 oz (102 kg) BMI: 35.14 Weight Change: -7.2 lbs Total Weight Change: -135 lbs % EBWL: 64% Post-op Weight Metrics: Post-Surgical Weight Loss Date: 05/21/22 Height: 5' 7 (170.2 cm) Weight: 224 lb 6.4 oz (102 kg) BMI: 35.14 Weight Change: -7.2 lbs Total Weight Change: -135 lbs % EBWL: 64% (From Surgical Weight Loss Tracker) Patient has the following questions: None Reported Pain: Patient rates pain on scale 0-10 as: 0 Exercise Compliance: Exercising: no If yes: Type: none Times per week: 0 Min per session: 0 Falls Risk Assessment Patient does not take medications which affect BP or mental status Patient does not t have newly prescribed or changed dosage of medications within past 30 days which affect BP or mental status Patient has not fallen in the past 2 months Patient does not t demonstrate unsteady gait Patient uses the following ambulatory assistive devices: none Patient states the presence of the following traits which increases risk of fall: none Patient is not on home O2 Pre-op Weight Metrics: Labs Completed: - If NO, patient instructed to get labs drawn today or SHAWN If YES: Labs completed at [facility]? If yes see Labs Tab [facility]? If yes see Encounters Tab - Orders only - Historical Provider - Date: Completed by: Lakisha Velasco MA [facility] Absolute lymphocyte countOrd ered By: Dr. Lombardi on 04-11-2022 Lymphocytes Auto (Unsp spec) [#/Vol] 1.91 10*3/uL 0.83-4.51 [facility] Basophil percentageOrdered B y: Dr. Lombardi on 04-11-2022 Basophils/100 WBC (Bld) 0.8 % 0-1 [facility] Eosinophils/100 WBC (Bld) 3.7 % 0-5 [facility] Neutrophils (Bld) [#/Vol] 3.6 10*3/uL 2.0-7.7 [facility] Neutrophils/100 WBC (Bld) 58.2 % 47-70 [facility] WBC (Bld) [#/Vol] 6.2 10*3/uL 4.4-11.0 [facility] Bilirubin [Mass/Vol] 0.60 mg/dL 0.20-1.00 [facility] Comment on above: For patients on eltr ombopag therapy, use of Dimension Maupin TBIL is not recommended. Chloride [Moles/Vol] 113 mmol/L 98-107 [facility] Cholesterol [Mass/Vol] 93 mg/dL <200 [facility] Comment on above: <200 mg/dL Desirable 200-240 mg/dL Borderline >240 mg/dL High Risk Glucose [Mass/Vol] 134 mg/dL 74-106 [facility] Comment on above: Fasting Glucose resu lt greater than or equal to 126 mg/dL suggests DIABETES MELLITUS per A.D.A. criteria. Potassium [Moles/Vol] 4.1 mmol/L 3.5-5.1 [facility] Protein [Mass/Vol] 6.6 g/dL 6.4-8.2 [facility] Sodium [Moles/Vol] 145 mmol/L 136-145 [facility] Triglyceride [Mass/Vol] 88 mg/dL <199 [facility] Comment on above: The drugs N-Acetylcy steine and Metamizole may falsely depress this assay.Serum Triglycerides Reference Interval Normal <150 mg/dL Borderline high 150 - 199 mg/dL High 200 - 499 mg/dL Very High > or = 500 mg/dL Blood erythrocytes count (nu mber/volume)Ordered By: Dr. Lombardi on 04-11-2022 RBC (Bld) [#/Vol] 5.03 10*6/uL 4.6-6.2 [facility] Blood hemoglobin measurement (mass/volume)Ordered By: Dr. Lombardi on 04-11-2022 Hemoglobin (Bld) [Mass/Vol] 15.6 g/dL 13.0-16. 5 [facility] Blood lymphocytes/100 leukoc ytesOrdered By: Dr. Lombardi on 04-11-2022 Lymphocytes/100 WBC (Bld) 30.8 % 19-41 [facility] Blood monocytes/100 leukocyt esOrdered By: Dr. Lombardi on 04-11-2022 Monocytes/100 WBC (Bld) 6.0 % 0-10 [facility] Blood platelet mean volumeOr dered By: Dr. Lombardi on 04-11-2022 Platelet mean volume (Bld) [Entitic vol] 10.3 fL 6.2-12.0 [facility] Determination of erythrocyte mean corpuscular volume (MCV)Ordered By: Dr. Lombardi on 04-11-2022 MCV (RBC) [Entitic vol] 91.5 fL 80-94 [facility] Direct bilirubinOrdered By: Dr. Lombardi on 04-11-2022 Bilirubin.direct [Mass/Vol] 0.21 mg/dL 0.00-0.3 0 [facility] Hematocrit Auto (Bld) [Volum e fraction]Ordered By: Dr. Lombardi on 04-11-2022 Hematocrit (Bld) [Volume fraction] 46.0 % 40-54 [facility] Laboratory - Chemistry and C hemistry - challengeOrdered By: Dr. Lombardi on 04-11-2022 ALP [Catalytic activity/Vol] 117 U/L 45-117 [facility] ALT [Catalytic activity/Vol] 34 U/L 16-61 [facility] CO2 [Moles/Vol] 24.0 mmol/L 21.0-32.0 [facility] Globulin (S) [Mass/Vol] 2.9 g/dL 2.2-4.2 [facility] Urea nitrogen/Creatinine [Mass ratio] 14.4 mg/mg 10-20 [facility] Laboratory - Hematology and Cell countsOrdered By: Dr. Lombardi on 04-11-2022 Erythrocyte distribution width (RBC) [Entitic vol] 42.7 fL 35.1-43.9 [facility] Erythrocyte distribution width (RBC) [Ratio] 12.8 % 11.6-14.6 [facility] Immature granulocytes/100 WBC (Bld) 0.500 % 0.0-0.9 [facility] Comment on above: IG% - Immature Granu locytes (promyelocytes, myelocytes and metamyelocytes) > 1% indicates that a LEFT SHIFT is Present. MCH (RBC) [Entitic mass] 31.0 pg 27.0-32.0 [facility] Nucleated RBC/100 WBC (Bld) [Ratio] 0 % 0-5 [facility] MCHC Auto (RBC) [Mass/Vol]Or dered By: Dr. Lombardi on 04-11-2022 MCHC (RBC) [Mass/Vol] 33.9 g/dL 32-36 [facility] No Panel InformationOrdered By: Dr. Lombardi on 04-11-2022 Estimated GFR (MDRD) Amer 93 mL/min >60 [facility] Comment on above: GFR Calc Estimated GFR (MDRD) Non-Af Amer 77 mL/min >60 [facility] Comment on above: Non- GFR Calc Thyroid Stimulating Hormone (TSH) 0.63 uIU/mL 0.358-3.74 [facility] Platelets bldOrdered By: Dr. Lombardi on 04-11-2022 Platelets (Bld) [#/Vol] 189 10*3/uL 150-450 [facility] Serum or plasma albumin fran urement (mass/volume)Ordered By: Dr. Lombardi on 04-11-2022 Albumin [Mass/Vol] 3.7 g/dL 3.2-5.0 [facility] Serum or plasma albumin/glob ulin mass ratioOrdered By: Dr. Lombardi on 04-11-2022 Albumin/Globulin [Mass ratio] 1.3 {ratio} 0.9-2.4 [facility] Serum or plasma calcium fran urement (mass/volume)Ordered By: Dr. Lombardi on 04-11-2022 Calcium [Mass/Vol] 8.6 mg/dL 8.5-10.1 [facility] Serum or plasma cholesterol in HDL measurement (mass/volume)Ordered By: Dr. Lombardi on 04-11-2022 Cholesterol in HDL [Mass/Vol] 45 mg/dL >40 [facility] Comment on above: The drugs N-Acetylcy steine and Metamizole may falsely depress this assay. Reference Range HDL <40 mg/dL Low HDL Cholesterol HDL >or= 60 mg/dL High HDL Cholesterol Serum or plasma cholesterol in VLDL measurement (mass/volume)Ordered By: Dr. Lombardi on 04-11-2022 Cholesterol in VLDL [Mass/Vol] 18 mg/dL 5-40 [facility] Serum or plasma creatinine m easurement (mass/volume)Ordered By: Dr. Lombardi on 04-11-2022 Creatinine [Mass/Vol] 1.04 mg/dL 0.70-1.30 [facility] Comment on above: The validity of the calculated GFR & GFRAA in patients over 70 years has not been determined. Clinical correlation is essential. Serum or plasma low density lipoprotein (LDL) cholesterol measurement (mass/volume)Ordered By: Dr. Lombardi on 04-11-2022 Cholesterol in LDL [Mass/Vol] 30 mg/dL 0-130 [facility] Serum or plasma urea nitroge n measurement (mass/volume)Ordered By: Dr. Lombardi on 04-11-2022 Urea nitrogen [Mass/Vol] 15 mg/dL 7-18 [facility] Thin prep Papanicolaou smear with manual screeningOrdered By: Dr. Lombardi on 04-11-2022 Thin prep Papanicolaou smear with manual screening 26 U/L 15-37 [facility] Thin prep Papanicolaou smear with manual screening 8 5-15 [facility] Whole blood hemoglobin A1c/t otal hemoglobin ratio (mass fraction)Ordered By: Dr. Lombardi on 04-11-2022 HbA1c (Bld) [Mass fraction] 6.0 % 3.8-5.6 [facility] Comment on above: Normal < 5.7 % Predi abetic 5.7 - 6.4 % Diabetic >or= 6.5 % Please note range changes. No Panel Informationon 04-05 IMPRESSION: Degenerative changes as discussed Dentistry Teacher: MIRNA Transcribe Date/Time: Apr 05 2022 2:41P Dictated by : NASIM FRITZ DO This examination was interpreted and the report reviewed and electronically signed by: NASIM FRITZ DO on Apr 05 2022 2:42PM [facility] Radiology Study observation (narrative) [facility] No Panel InformationOrdered By: [facility] Provider on 04-05-2022 [facility] XR Shoulder - left 3 Viewson 04-05-2022 * * *Final Report* * * DATE OF EXAM: Apr 05 2022 1:33PM SUSAN 5252 - XR SHLDR >/=3V AP/WILLIAM AP/OTHR LT / PROCEDURE REASON: multiple diagnoses * * * * Physician Interpretation * * * * EXAM(s): XR SHLDR >/=3V AP/WILLIAM AP/OTHR RT, XR SHLDR >/=3V AP/WILLIAM AP/OTHR LT EXAM DATE/TIME: 04/05/2022 1:33 PM HISTORY: 61 years old Clinical information: Chronic right shoulder pain Chronic right shoulder pain BILATERAL SHOULDER PAIN [place] Outlet View Axillary TECHNIQUE: Images: XR SHLDR >/=3V AP/WILLIAM AP/OTHR RT, XR SHLDR >/=3V AP/WILLIAM AP/OTHR LT Comparison: None. RESULT: Findings: Right :No fractures or dislocations are seen. Calcification in the soft tissues along the greater tuberosity of the humerus is noted. This is probably due to previous calcific tendinitis of the supraspinatus tendon.. . Moderate narrowing of the AC joint. Mild narrowing of the glenohumeral joint. Left :No fractures or dislocations are seen. Mild narrowing of the glenohumeral joint. Moderate narrowing of the AC joint. Calcification along the undersurface of the glenohumeral joint etiology uncertain [facility] Provider, [facility] [place] - 04/05/2022 * * *Final Report* * * DATE OF EXAM: Apr 05 2022 1:33PM SUSAN 5252 - XR SHLDR >/=3V AP/WILLIAM AP/OTHR LT / PROCEDURE REASON: multiple diagnoses * * * * Physician Interpretation * * * * EXAM(s): XR SHLDR >/=3V AP/WILLIAM AP/OTHR RT, XR SHLDR >/=3V AP/WILLIAM AP/OTHR LT EXAM DATE/TIME: 04/05/2022 1:33 PM HISTORY: 61 years old Clinical information: Chronic right shoulder pain Chronic right shoulder pain BILATERAL SHOULDER PAIN [place] Out[employer] View Axillary TECHNIQUE: Images: XR SHLDR >/=3V AP/WILLIAM AP/OTHR RT, XR SHLDR >/=3V AP/WILLIAM AP/OTHR LT Comparison: None. RESULT: Findings: Right :No fractures or dislocations are seen. Calcification in the soft tissues along the greater tuberosity of the humerus is noted. This is probably due to previous calcific tendinitis of the supraspinatus tendon.. . Moderate narrowing of the AC joint. Mild narrowing of the glenohumeral joint. Left :No fractures or dislocations are seen. Mild narrowing of the glenohumeral joint. Moderate narrowing of the AC joint. Calcification along the undersurface of the glenohumeral joint etiology uncertain IMPRESSION IMPRESSION: Degenerative changes as discussed Dentistry Teacher: MIRNA Transcribe Date/Time: Apr 05 2022 2:41P Dictated by : NASIM FRITZ DO This examination was interpreted and the report reviewed and electronically signed by: NASIM FRITZ DO on Apr 05 2022 2:42PM [facility] XR Shoulder - right 3 Viewso n 04-05-2022 * * *Final Report* * * DATE OF EXAM: Apr 05 2022 1:33PM MDO 5253 - XR SHLDR >/=3V AP/WILLIAM AP/OTHR RT / PROCEDURE REASON: multiple diagnoses * * * * Physician Interpretation * * * * EXAM(s): XR SHLDR >/=3V AP/WILLIAM AP/OTHR RT, XR SHLDR >/=3V AP/WILLIAM AP/OTHR LT EXAM DATE/TIME: 04/05/2022 1:33 PM HISTORY: 61 years old Clinical information: Chronic right shoulder pain Chronic right shoulder pain BILATERAL SHOULDER PAIN [place] Out[place] View Axillary TECHNIQUE: Images: XR SHLDR >/=3V AP/WILLIAM AP/OTHR RT, XR SHLDR >/=3V AP/WILLIAM AP/OTHR LT Comparison: None. RESULT: Findings: Right :No fractures or dislocations are seen. Calcification in the soft tissues along the greater tuberosity of the humerus is noted. This is probably due to previous calcific tendinitis of the supraspinatus tendon.. . Moderate narrowing of the AC joint. Mild narrowing of the glenohumeral joint. Left :No fractures or dislocations are seen. Mild narrowing of the glenohumeral joint. Moderate narrowing of the AC joint. Calcification along the undersurface of the glenohumeral joint etiology uncertain [place] [facility] Provider, [facility] [place] - 04/05/2022 * * *Final Report* * * DATE OF EXAM: Apr 05 2022 1:33PM SUSAN 5253 - XR SHLDR >/=3V AP/WILLIAM AP/OTHR RT / PROCEDURE REASON: multiple diagnoses * * * * Physician Interpretation * * * * EXAM(s): XR SHLDR >/=3V AP/WILLIAM AP/OTHR RT, XR SHLDR >/=3V AP/WILLIAM AP/OTHR LT EXAM DATE/TIME: 04/05/2022 1:33 PM HISTORY: 61 years old Clinical information: Chronic right shoulder pain Chronic right shoulder pain BILATERAL SHOULDER PAIN [place] Out[place] View Axillary TECHNIQUE: Images: XR SHLDR >/=3V AP/WILLIAM AP/OTHR RT, XR SHLDR >/=3V AP/WILLIAM AP/OTHR LT Comparison: None. RESULT: Findings: Right :No fractures or dislocations are seen. Calcification in the soft tissues along the greater tuberosity of the humerus is noted. This is probably due to previous calcific tendinitis of the supraspinatus tendon.. . Moderate narrowing of the AC joint. Mild narrowing of the glenohumeral joint. Left :No fractures or dislocations are seen. Mild narrowing of the glenohumeral joint. Moderate narrowing of the AC joint. Calcification along the undersurface of the glenohumeral joint etiology uncertain IMPRESSION IMPRESSION: Degenerative changes as discussed Dentistry Teacher: PSCB Transcribe Date/Time: Apr 05 2022 2:41P Dictated by : NASIM FRITZ DO This examination was interpreted and the report reviewed and electronically signed by: NASIM FRITZ DO on Apr 05 2022 2:42PM [facility] Basophil percentageon 2021 Bilirubin [Mass/Vol] 0.50 mg/dL 0.20-1.00 [facility] Work Phone: Comment on above: For patients on eltr ombopag therapy, use of Dimension Maupin TBIL is not recommended. Cholesterol [Mass/Vol] 111 mg/dL <200 [facility] Work Phone: Comment on above: <200 mg/dL Desirable 200-240 mg/dL Borderline >240 mg/dL High Risk Protein [Mass/Vol] 6.4 g/dL 6.4-8.2 [facility] Work Phone: Triglyceride [Mass/Vol] 86 mg/dL <199 [facility] Work Phone: Comment on above: The drugs N-Acetylcy steine and Metamizole may falsely depress this assay.Serum Triglycerides Reference Interval Normal <150 mg/dL Borderline high 150 - 199 mg/dL High 200 - 499 mg/dL Very High > or = 500 mg/dL Direct bilirubinon 2 Bilirubin.direct [Mass/Vol] 0.15 mg/dL 0.00-0.3 0 [facility] Work Phone: Laboratory - Chemistry and C hemistry - challengeon 10-30-2021 ALP [Catalytic activity/Vol] 103 U/L 45-117 [facility] Work Phone: ALT [Catalytic activity/Vol] 43 U/L 16-61 [facility] Work Phone: Globulin (S) [Mass/Vol] 2.9 g/dL 2.2-4.2 [facility] Work Phone: Serum or plasma albumin fran urement (mass/volume)on 10-30-2021 Albumin [Mass/Vol] 3.5 g/dL 3.2-5.0 [facility] Work Phone: Serum or plasma cholesterol in HDL measurement (mass/volume)on 10-30-2021 Cholesterol in HDL [Mass/Vol] 54 mg/dL >40 [facility] Work Phone: Comment on above: The drugs N-Acetylcy steine and Metamizole may falsely depress this assay. Reference Range HDL <40 mg/dL Low HDL Cholesterol HDL >or= 60 mg/dL High HDL Cholesterol Serum or plasma cholesterol in VLDL measurement (mass/volume)on 10-30-2021 Cholesterol in VLDL [Mass/Vol] 17 mg/dL 5-40 [facility] Work Phone: Serum or plasma low density lipoprotein (LDL) cholesterol measurement (mass/volume)on 10-30-2021 Cholesterol in LDL [Mass/Vol] 40 mg/dL 0-130 [facility] Work Phone: Thin prep Papanicolaou smear with manual screeningon 10-30-2021 Thin prep Papanicolaou smear with manual screening 22 U/L 15-37 [facility] Work Phone: EMG(NEURO/NI)on 10-15-2021 [facility] No Panel Informationon 08-16 [facility] Vitamin B1,Whole Bloodon Vitamin B1,Whole Blood 168 nmol/L Normal 70-180 [facility] Comment on above: Result Comment: INTE RPRETIVE INFORMATION: Vitamin B1, Whole Blood This assay measures the concentration of thiamine diphosphate (TDP), the primary active form of vitamin B1. Approximately 90 percent of vitamin B1 present in whole blood is TDP. Thiamine and thiamine monophosphate, which comprise the remaining 10 percent, are not measured. This test was developed and its performance characteristics determined by [facility]. It has not been cleared or approved by the [place] Food and Drug Administration. This test was performed in a CLIA certified laboratory and is intended for clinical purposes. Performed By: [facility] [address] [place] [id number] Regenerator Operator: Amparo Durant MD Performed By: #### L IPD2, CMP3, HEMOG, MG3, FOLT3, FERR3, B12, IRON3 #### [facility] [address] [place] [address] #### WBB1O, ZINC2 #### The performing lab is in the report. #### [id number] #### [facility] [address] [place] [address] Zinc, Serumon 04-28-2021 Zinc, Serum 79.1 ug/dL Normal 60.0-120.0 [facility] Comment on above: Result Comment: INTE RPRETIVE INFORMATION: Zinc, Serum or Plasma Elevated results may be due to skin or collection-related contamination, including the use of a noncertified metal-free collection/transport tube. If contamination concerns exist due to elevated levels of serum/plasma zinc, confirmation with a second specimen collected in a certified metal-free tube is recommended. Circulating zinc concentrations are dependent on albumin status and are depressed with malnutrition. Zinc may also be lowered with infection, inflammation, stress, oral contraceptives, and . Zinc may be elevated with zinc supplementation or fasting. Elevated zinc concentrations may interfere with copper absorption. This test was developed and its performance characteristics determined by [facility]. It has not been cleared or approved by the [place] Food and Drug Administration. This test was performed in a CLIA certified laboratory and is intended for clinical purposes. Performed By: [facility] [address] [place] [id number] Regenerator Operator: Amparo Durant MD Performed By: #### L IPD2, CMP3, HEMOG, MG3, FOLT3, FERR3, B12, IRON3 #### [address] [address] #### WBB1O, ZINC2 #### The performing lab is in the report. #### VD25H #### [facility] [address] [place] [address] Comp Metabolic Panelon 04-24 Calcium [Mass/Vol] 9.3 mg/dL Normal 8.4-10.4 [facility] Comment on above: Performed By: #### L IPD2, CMP3, HEMOG, MG3, FOLT3, FERR3, B12, IRON3 #### [facility] [address] [place] [address] #### WBB1O, ZINC2 #### The performing lab is in the report. #### VD25H #### [facility] [address] [address] ALP [Catalytic activity/Vol] 102 U/L Normal 38-126 [facility] Comment on above: Performed By: #### L IPD2, CMP3, HEMOG, MG3, FOLT3, FERR3, B12, IRON3 #### [facility] [address] [place] [address] #### WBB1O, ZINC2 #### The performing lab is in the report. #### VD25H #### [facility] [address] [place] [address] ALT [Catalytic activity/Vol] 35 U/L Normal 0-49 [facility] Comment on above: Result Comment: The ALT test is performed by an updated assay method. Please note that the reference intervals have been changed and are now sex specific. Performed By: #### L IPD2, CMP3, HEMOG, MG3, FOLT3, FERR3, B12, IRON3 #### [facility] [address] [place] [address] #### WBB1O, ZINC2 #### The performing lab is in the report. #### VD25H #### [place] [address] [place] [address] Anion gap [Moles/Vol] 4 mmol/L Normal 3-13 [facility] Comment on above: Performed By: #### L IPD2, CMP3, HEMOG, MG3, FOLT3, FERR3, B12, IRON3 #### [facility] [address] [place] [address] #### WBB1O, ZINC2 #### The performing lab is in the report. #### VD25H #### [facility] [address] [place] [address] AST [Catalytic activity/Vol] 39 U/L Normal 15-46 [facility] Comment on above: Performed By: #### L IPD2, CMP3, HEMOG, MG3, FOLT3, FERR3, B12, IRON3 #### [facility] [address] [place] [address] #### WBB1O, ZINC2 #### The performing lab is in the report. #### VD25H #### [facility] [address] [place] [address] Bilirubin [Mass/Vol] 0.2 mg/dL Normal 0.2-1.3 [facility] Comment on above: Performed By: #### L IPD2, CMP3, HEMOG, MG3, FOLT3, FERR3, B12, IRON3 #### [facility] [address] [place] [address] #### WBB1O, ZINC2 #### The performing lab is in the report. #### VD25H #### [facility] [address] [place] [address] CO2 [Moles/Vol] 24 mmol/L Normal 22-30 [facility] Comment on above: Performed By: #### L IPD2, CMP3, HEMOG, MG3, FOLT3, FERR3, B12, IRON3 #### [facility] [address] [place] [address] #### WBB1O, ZINC2 #### The performing lab is in the report. #### VD25H #### [place] [address] [place] [address] Creatinine [Mass/Vol] 0.91 mg/dL Normal 0.52-1.25 [facility] Comment on above: Performed By: #### L IPD2, CMP3, HEMOG, MG3, FOLT3, FERR3, B12, IRON3 #### [facility] [address] [place] [address] #### WBB1O, ZINC2 #### The performing lab is in the report. #### VD25H #### [facility] [address] [place] [address] eGFR OTHER > 90.0 Normal >60 [facility] Comment on above: Result Comment: KDIG O guidelines provide the following GFR categories: Stage GFR(ml/min/1.73 m2) Terms G1 >=90 Normal or high G2 60-89 Mildly decreased* G3a 45-59 Mildly to moderately decreased G3b 30-44 Moderately to severely decreased G4 15-29 Severely decreased G5 <15 Kidney failure *Relative to young adult level. In the absence of evidence of kidney damage, neither GFR category G1 nor G2 fulfill the criteria for CKD. The CKD-EPI equation is validated in individuals 18 years of age and older. Currently the best equation for estimating glomerular filtration rate (GFR) from serum creatinine in children is the Bedside Hernandez equation. It is less accurate in patients with extremes of muscle mass, restriction of dietary protein, ingestion of creatine, extra-renal metabolism of creatinine, or treatment with medications that affect renal tubular creatinine secretion. Performed By: #### L IPD2, CMP3, HEMOG, MG3, FOLT3, FERR3, B12, IRON3 #### [facility] [address] [place] [address] #### WBB1O, ZINC2 #### The performing lab is in the report. #### VD25H #### [facility] [address] [place] [address] GFR/1.73 sq M.predicted among blacks MDRD (S/P/Bld) [Vol rate/Area] mL/min/{1.73_m2} Normal >60 [facility] Comment on above: Performed By: #### L IPD2, CMP3, HEMOG, MG3, FOLT3, FERR3, B12, IRON3 #### [facility] [address] [place] [address] #### WBB1O, ZINC2 #### The performing lab is in the report. #### VD25H #### [facility] [address] [place] [address] Glucose [Mass/Vol] 107 mg/dL High 70-100 [facility] Comment on above: Performed By: #### L IPD2, CMP3, HEMOG, MG3, FOLT3, FERR3, B12, IRON3 #### [facility] [address] [place] [address] #### WBB1O, ZINC2 #### The performing lab is in the report. #### VD25H #### [facility] [address] [place] [address] Protein [Mass/Vol] 6.2 g/dL Low 6.3-8.2 [facility] Comment on above: Performed By: #### L IPD2, CMP3, HEMOG, MG3, FOLT3, FERR3, B12, IRON3 #### [facility] [address] [place] [address] #### WBB1O, ZINC2 #### The performing lab is in the report. #### VD25H #### [facility] [address] [place] [address] Urea nitrogen [Mass/Vol] 14 mg/dL Normal 7-17 [facility] Comment on above: Performed By: #### L IPD2, CMP3, HEMOG, MG3, FOLT3, FERR3, B12, IRON3 #### [facility] [address] [place] [address] #### WBB1O, ZINC2 #### The performing lab is in the report. #### VD25H #### [facility] [address] [place] [address] Potassium [Moles/Vol] 4.3 mmol/L Normal 3.5-5.1 [facility] Comment on above: Performed By: #### L IPD2, CMP3, HEMOG, MG3, FOLT3, FERR3, B12, IRON3 #### [facility] [address] [place] [address] #### WBB1O, ZINC2 #### The performing lab is in the report. #### VD25H #### [facility] [address] [place] [address] Sodium [Moles/Vol] 141 mmol/L Normal 135-145 [facility] Comment on above: Performed By: #### L IPD2, CMP3, HEMOG, MG3, FOLT3, FERR3, B12, IRON3 #### [facility] [address] [place] [address] #### WBB1O, ZINC2 #### The performing lab is in the report. #### VD25H #### [facility] [address] [place] [address] Albumin [Mass/Vol] 3.8 g/dL Normal 3.5-5.0 [facility] Comment on above: Performed By: #### L IPD2, CMP3, HEMOG, MG3, FOLT3, FERR3, B12, IRON3 #### [facility] [address] [place] [address] #### WBB1O, ZINC2 #### The performing lab is in the report. #### VD25H #### [facility] [address] [place] [address] Chloride [Moles/Vol] 113 mmol/L High 98-107 [facility] Comment on above: Performed By: #### L IPD2, CMP3, HEMOG, MG3, FOLT3, FERR3, B12, IRON3 #### [facility] [address] [place] [address] #### WBB1O, ZINC2 #### The performing lab is in the report. #### VD25H #### [facility] [address] [place] [address] Ferritinon 04-24-2021 Ferritin [Mass/Vol] 12 ng/mL Low 18-464 [facility] Comment on above: Performed By: #### L IPD2, CMP3, HEMOG, MG3, FOLT3, FERR3, B12, IRON3 #### [facility] [address] [place] [address] #### WBB1O, ZINC2 #### The performing lab is in the report. #### VD25H #### [facility] [address] [place] [address] Folateon 04-24-2021 Folate > 20.0 Normal [facility] Comment on above: Result Comment: >2.8 Performed By: #### L IPD2, CMP3, HEMOG, MG3, FOLT3, FERR3, B12, IRON3 #### [facility] [address] [place] [address] #### WBB1O, ZINC2 #### The performing lab is in the report. #### VD25H #### [facility] [address] [place] [address] Hemogramon 04-24-2021 Erythrocyte distribution width (RBC) [Ratio] 13.7 % Normal 11.5-14.5 [facility] Comment on above: Performed By: #### L IPD2, CMP3, HEMOG, MG3, FOLT3, FERR3, B12, IRON3 #### [facility] [address] [place] [address] #### WBB1O, ZINC2 #### The performing lab is in the report. #### VD25H #### [facility] [address] [place] [address] Hematocrit (Bld) [Volume fraction] 39.0 % Low 40.0-52.0 [facility] Comment on above: Performed By: #### L IPD2, CMP3, HEMOG, MG3, FOLT3, FERR3, B12, IRON3 #### [facility] [address] [place] [address] #### WBB1O, ZINC2 #### The performing lab is in the report. #### VD25H #### [place] [address] [place] [address] Hemoglobin (Bld) [Mass/Vol] 12.9 g/dL Low 13.0-18. 0 [facility] Comment on above: Performed By: #### L IPD2, CMP3, HEMOG, MG3, FOLT3, FERR3, B12, IRON3 #### [place] [address] #### WBB1O, ZINC2 #### The performing lab is in the report. #### VD25H #### [place] [address] [place] [address] MCH (RBC) [Entitic mass] 28.7 pg Normal 26.0-34.0 [facility] Comment on above: Performed By: #### L IPD2, CMP3, HEMOG, MG3, FOLT3, FERR3, B12, IRON3 #### [place] [address] #### WBB1O, ZINC2 #### The performing lab is in the report. #### VD25H #### [place] [address] [place] [address] MCHC 33.1 % Normal 32.0-36.0 [facility] Comment on above: Performed By: #### L IPD2, CMP3, HEMOG, MG3, FOLT3, FERR3, B12, IRON3 #### [facility] [address] [place] [address] #### WBB1O, ZINC2 #### The performing lab is in the report. #### VD25H #### [facility] [address] [place] [address] MCV (RBC) [Entitic vol] 86.6 fL Normal 80.0-98.0 [facility] Comment on above: Performed By: #### L IPD2, CMP3, HEMOG, MG3, FOLT3, FERR3, B12, IRON3 #### [facility] [place] [address] #### WBB1O, ZINC2 #### The performing lab is in the report. #### VD25H #### [place] [address] [place] [address] Platelet mean volume (Bld) [Entitic vol] 8.9 fL Normal 7.4-10.4 [facility] Comment on above: Performed By: #### L IPD2, CMP3, HEMOG, MG3, FOLT3, FERR3, B12, IRON3 #### [facility] [place] [address] #### WBB1O ZINC2 #### The performing lab is in the report. #### VD25H #### [place] [address] [place] [address] Platelets (Bld) [#/Vol] 147 10*3/uL Normal 140-440 [facility] Comment on above: Performed By: #### L IPD2, CMP3, HEMOG, MG3, FOLT3, FERR3, B12, IRON3 #### [facility] [address] [place] [address] #### WBB1O, ZINC2 #### The performing lab is in the report. #### VD25H #### [place] [address] [place] [address] RBC (Bld) [#/Vol] 4.50 10*6/uL Normal 4.40-5.90 [facility] Comment on above: Performed By: #### L IPD2, CMP3, HEMOG, MG3, FOLT3, FERR3, B12, IRON3 #### [facility] [address] [place] [address] #### WBB1O, ZINC2 #### The performing lab is in the report. #### VD25H #### [facility] [address] [place] [address] WBC (Bld) [#/Vol] 4.7 10*3/uL Normal 3.6-10.7 [facility] Comment on above: Performed By: #### L IPD2, CMP3, HEMOG, MG3, FOLT3, FERR3, B12, IRON3 #### [facility] [address] [place] [address] #### WBB1O, ZINC2 #### The performing lab is in the report. #### VD25H #### [place] [address] [place] [address] Iron, Totalon 04-24-2021 Iron, Total 64 ug/dL Normal 49-181 [facility] Comment on above: Performed By: #### L IPD2, CMP3, HEMOG, MG3, FOLT3, FERR3, B12, IRON3 #### [place] [address] #### WBB1O, ZINC2 #### The performing lab is in the report. #### VD25H #### [address] [place] [address] Lipid Panelon 04-24-2021 Chol/HDL 2 Normal [facility] Comment on above: Result Comment: Ref Range: < 3 Low Risk for CHD 3-6 Mod Risk for CHD > 6 High Risk for CHD Performed By: #### L IPD2, CMP3, HEMOG, MG3, FOLT3, FERR3, B12, IRON3 #### [facility] [address] [place] [address] #### WBB1O, ZINC2 #### The performing lab is in the report. #### VD25H #### [facility] [address] [facility] [place] [address] Cholesterol in HDL [Mass/Vol] 44 mg/dL Normal 40-60 [facility] Comment on above: Performed By: #### L IPD2, CMP3, HEMOG, MG3, FOLT3, FERR3, B12, IRON3 #### [facility] [address] [place] [address] #### WBB1O, ZINC2 #### The performing lab is in the report. #### VD25H #### [facility] [address] [facility] [place] [address] Low Density Lipoprotein 36 mg/dL Normal <100 [facility] Comment on above: Performed By: #### L IPD2, CMP3, HEMOG, MG3, FOLT3, FERR3, B12, IRON3 #### [facility] [address] [place] [address] #### WBB1O, ZINC2 #### The performing lab is in the report. #### VD25H #### [facility] [address] [facility] [place] [address] Triglyceride [Mass/Vol] 71 mg/dL Normal <150 [facility] Comment on above: Performed By: #### L IPD2, CMP3, HEMOG, MG3, FOLT3, FERR3, B12, IRON3 #### [facility] [address] [place] [address] #### WBB1O, ZINC2 #### The performing lab is in the report. #### VD25H #### [facility] [address] [facility] [place] [address] Cholesterol [Mass/Vol] 94 mg/dL Normal < 200 [facility] Comment on above: Performed By: #### L IPD2, CMP3, HEMOG, MG3, FOLT3, FERR3, B12, IRON3 #### [facility] [address] [place] [address] #### WBB1O, ZINC2 #### The performing lab is in the report. #### VD25H #### [place] [address] [place] [address] Magnesiumon 04-24-2021 Magnesium [Mass/Vol] 1.7 mg/dL Normal 1.6-2.3 [facility] Comment on above: Performed By: #### L IPD2, CMP3, HEMOG, MG3, FOLT3, FERR3, B12, IRON3 #### [facility] [address] [place] [address] #### WBB1O, ZINC2 #### The performing lab is in the report. #### VD25H #### [place] [address] [place] [address] Vit D 25-OH, Totalon 022 Vit D 25-OH, Total 49 ng/mL Normal 30-100 [facility] Comment on above: Result Comment: Ther apy is based on measurement of Total 25-OHD with the following classification levels: Less than 20 ng/mL: Indicative of Vit D deficiency 20-30 ng/mL: Suggests Vit D insufficiency Optimal: Greater than or equal to 30 ng/mL Test performed by [employer] Immunoassay, measuring Total Vitamin D, not individual fractions. Performed By: #### L IPD2, CMP3, HEMOG, MG3, FOLT3, FERR3, B12, IRON3 #### [facility] [address] [place] [address] #### WBB1O, ZINC2 #### The performing lab is in the report. #### VD25H #### [address] [place] [address] Vitamin B12on 04-24-2021 Cobalamin (Vitamin B12) [Mass/Vol] 597 pg/mL Normal 239-931 [facility] Comment on above: Performed By: #### L IPD2, CMP3, HEMOG, MG3, FOLT3, FERR3, B12, IRON3 #### [facility] [address] [place] [address] #### WBB1O, ZINC2 #### The performing lab is in the report. #### VD25H #### [address] [place] [address] Basophil percentageon 2021 Bilirubin [Mass/Vol] 0.40 mg/dL 0.20-1.00 [facility] Work Phone: Comment on above: For patients on eltr ombopag therapy, use of Dimension Maupin TBIL is not recommended. Cholesterol [Mass/Vol] 99 mg/dL <200 [facility] Work Phone: Comment on above: <200 mg/dL Desirable 200-240 mg/dL Borderline >240 mg/dL High Risk Protein [Mass/Vol] 6.7 g/dL 6.4-8.2 [facility] Work Phone: Triglyceride [Mass/Vol] 80 mg/dL [facility] Work Phone: Comment on above: The drugs N-Acetylcy steine and Metamizole may falsely depress this assay.Serum Triglycerides Reference Interval Normal <150 mg/dL Borderline high 150 - 199 mg/dL High 200 - 499 mg/dL Very High > or = 500 mg/dL Direct bilirubinon 2 Bilirubin.direct [Mass/Vol] 0.16 mg/dL 0.00-0.3 0 [facility] Work Phone: Laboratory - Chemistry and C hemistry - challengeon 04-11-2021 ALP [Catalytic activity/Vol] 117 U/L 45-117 [facility] Work Phone: ALT [Catalytic activity/Vol] 42 U/L 16-61 [facility] Work Phone: Globulin (S) [Mass/Vol] 3.2 g/dL 2.2-4.2 [facility] Work Phone: Serum or plasma albumin fran urement (mass/volume)on 04-11-2021 Albumin [Mass/Vol] 3.5 g/dL 3.2-5.0 [facility] Work Phone: Serum or plasma cholesterol in HDL measurement (mass/volume)on 04-11-2021 Cholesterol in HDL [Mass/Vol] 50 mg/dL [facility] Work Phone: Comment on above: The drugs N-Acetylcy steine and Metamizole may falsely depress this assay. Reference Range HDL <40 mg/dL Low HDL Cholesterol HDL >or= 60 mg/dL High HDL Cholesterol Serum or plasma cholesterol in VLDL measurement (mass/volume)on 04-11-2021 Cholesterol in VLDL [Mass/Vol] 16 mg/dL 5-40 [facility] Work Phone: Serum or plasma low density lipoprotein (LDL) cholesterol measurement (mass/volume)on 04-11-2021 Cholesterol in LDL [Mass/Vol] 33 mg/dL 0-130 [facility] Work Phone: Thin prep Papanicolaou smear with manual screeningon 04-11-2021 Thin prep Papanicolaou smear with manual screening 20 U/L 15-37 [facility] Work Phone: CREATon 05-27-2019 Creatinine [Mass/Vol] 0.891 mg/dL Normal 0.670-1.170 [facility] Comment on above: Result Comment: Ninoska ents receiving either N-Acetylcysteine (NAC) or Metamizole prior to venipuncture, may have falsely depressed results. Performed By: #### L 500.05104, L500.66428, L550.57193, L550.54011, L550.47904, L550.16314 #### [facility] [address] [place], [place] [address] ESTRADIOLon 05-27-2019 ESTRADIOL 36.6 PG/ML Normal 0-47 [facility] Comment on above: Performed By: #### L 500.08252, L500.03083, L550.97659, L550.59082, L550.99376, L550.43491 #### [facility] [address] [place] [address] FSHon 05-27-2019 FSH 24.5 MIU/ML High 1.4-18.1 [facility] Comment on above: Performed By: #### L 500.33657, L500.44931, L550.92403, L550.11096, L550.77393, L550.36871 #### [facility] [address] [place] [address] GFR ESTon 05-27-2019 IF AMER Greater than 60 Normal [facility] Comment on above: Performed By: #### L 500.09182, L500.56035, L550.78265, L550.28156, L550.38189, L550.29200 #### [facility] [address] [place] [address] IF non-AFR AMER Greater than 60 Normal [facility] Comment on above: Performed By: #### L 500.52063, L500.69633, L550.51872, L550.61440, L550.48712, L550.50301 #### [facility] [address] [place] [address] LHon 05-27-2019 LH 15.1 MIU/ML High 1.5-9.3 [facility] Comment on above: Performed By: #### L 500.06038, L500.61581, L550.26883, L550.50192, L550.56093, L550.16282 #### [facility] [address] [place] [address] PROLACTINon 05-27-2019 PROLACTIN 3.2 NG/ML Normal 2.1-17.7 [facility] Comment on above: Performed By: #### L 500.11693, L500.74935, L550.89680, L550.70508, L550.72762, L550.27444 #### [facility] [address] [place], [place] [address] OZ MAMMO BILAT (DIAG)on OZ MAMMO BILAT (DIAG) MALE BILATERAL DIGITAL DIAGNOSTIC MAMMOGRAM TOMOSYNTHESIS WITH CAD: 05/27/2019 Ordering Physician: Shari Adlakha D.O. CLINICAL: Gynecomastia,male. No prior exams were available for comparison. Digital Breast Tomosynthesis was performed. Current study was also evaluated with a Computer Aided Detection (CAD) system. Both breasts have increased in density and increased in size due to gynecomastia that correlates with clinical concern. There are benign scattered calcifications both breasts. No significant masses, calcifications, or other findings are seen in either breast. IMPRESSION: BENIGN There is no mammographic evidence of malignancy. Follow-up with ACR/ACS guidelines. The false-negative rate of mammography is approximately 10%. Management of a palpable abnormality must be based upon clinical grounds. Tiffany Browning M.D. tlv/penrad:05/27/2019 13:24:16 [employer] Handstitching Machine: Chasidy Farley, [facility] BI-RADS: 2 Benign Reported By: TIFFANY BROWNING M.D. Signed By: TIFFANY BROWNING M.D. Normal [facility]e CBCon 04-20-2019 Erythrocyte distribution width (RBC) [Ratio] 13.4 % 11.5 - 14.5 % [facility] Work Phone: [phone] Hematocrit (Bld) [Volume fraction] 42.7 % 40 - 52 % [facility] Work Phone: [phone] Hemoglobin (Bld) [Mass/Vol] 14.4 g/dL 13 - 18 g/dL [facility] Work Phone: MCH (RBC) [Entitic mass] 31.0 pg 26 - 34 pg [facility] Work Phone: [phone] MCHC (RBC) [Mass/Vol] 33.8 % 32 - 36 % [facility] Work Phone: [phone] MCV (RBC) [Entitic vol] 91.8 fL 80 - 98 fL [facility] Work Phone: [phone] Platelet mean volume (Bld) [Entitic vol] 8.7 fL 7.4 - 10.4 fL [facility] Work Phone: [phone] Platelets (Bld) [#/Vol] 176 10*3/uL 140 - 440 10*3/uL [facility] Work Phone: [phone] RBC (Bld) [#/Vol] 4.65 10*6/uL 4.4 - 5.9 10*6/uL [facility] Work Phone: [phone] WBC (Bld) [#/Vol] 4.5 10*3/uL 3.6 - 10.7 10*3/uL [facility] Work Phone: [phone] Test [facility]formed by [facility], [address] , [place], [place] [address] [facility] Work Phone: [phone] Comprehensive Metabolic Pane jared 04-20-2019 Albumin [Mass/Vol] 3.8 g/dL 3.5 - 5 g/dL [facility] Work Phone: [phone] ALP [Catalytic activity/Vol] 80 U/L 38 - 126 U/L [facility] Work Phone: ) [phone] ALT [Catalytic activity/Vol] 88 U/L High 13 - 69 U/L [facility] Work Phone: [phone] Anion gap [Moles/Vol] 7 mmol/L [facility] Work Phone: ) [phone] AST [Catalytic activity/Vol] 44 U/L 15 - 46 U/L [facility] Work Phone: [phone] Bilirubin Ql (U) 0.6 mg/dL 0.2 - 1.3 mg/dL [facility] Work Phone: ) [phone] Calcium [Mass/Vol] 9.3 mg/dL 8.4 - 10. 4 mg/dL [facility] Work Phone: [phone] Chloride [Moles/Vol] 108 mmol/L High 98 - 10 7 mmol/L [facility] Work Phone: ) [phone] CO2 [Moles/Vol] 25 mmol/L 22 - 30 mmol/L [facility] Work Phone: [phone] Creatinine [Mass/Vol] 0.87 mg/dL 0.52 - 1.25 mg/dL [facility] Work Phone: [phone] EGFR IF NonAfrican Bel[place]ian >60.0 >60 mL/m in [facility] Work Phone: [phone] Comment on above: Source- MDRD equatio n with creatinine calibration to IDMS(NKDEP) eGFR not recommended for drug dose adjustment GFR/1.73 sq M predicted among blacks MDRD (S/P/Bld) [Vol rate/Area] mL/min/{1.73_m2} >60 mL/min [facility] Work Phone: [phone] Glucose [Mass/Vol] 95 mg/dL 70 - 100 mg/dL [facility] Work Phone: [phone] Potassium [Moles/Vol] 4.2 mmol/L 3.5 - 5.1 mmol/L [facility] Work Phone: [phone] Protein [Mass/Vol] 6.0 g/dL Low 6.3 - 8.2 g/dL [facility] Work Phone: [phone] Sodium [Moles/Vol] 140 mmol/L 135 - 145 mmol/L [facility] Work Phone: [phone] Urea nitrogen [Mass/Vol] 16 mg/dL 7 - 20 mg/dL [facility] Work Phone: [phone] Ferritinon 04-20-2019 Ferritin [Mass/Vol] 222 ng/mL 18 - 464 ng/mL [facility] Work Phone: [phone] Test Performed by [employer], [address] Work Phone: [phone] Folateon 04-20-2019 Folate >20.0 2.8 - 20 ng/mL [facility] Work Phone: [phone] Ironon 04-20-2019 Iron [Mass/Vol] 89 ug/dL 49 - 181 ug/dL [facility] Work Phone: [phone] Test Performed by [email or web address], [address] Work Phone: [phone] Lipid Panelon 04-20-2019 Cholesterol [Mass/Vol] 91 mg/dL <200 [employer] [employer] Work Phone: [phone] Cholesterol in HDL [Mass/Vol] 38 mg/dL Low 40 - 60 mg/dL [facility] Work Phone: [phone] Cholesterol in LDL [Mass/Vol] 38 mg/dL <100 [facility] Work Phone: [phone] Cholesterol.total/Cholester ol in HDL [Mass ratio] 2 {ratio} [facility] Work Phone: [phone] Comment on above: Ref Range: < 3 Low Risk for CHD 3-6 Mod Risk for CHD > 6 High Risk for CHD Triglyceride [Mass/Vol] 77 mg/dL <150 [facility] Work Phone: [phone] Magnesiumon 04-20-2019 Magnesium [Mass/Vol] 1.8 mg/dL 1.6 - 2 .3 mg/dL [facility] Work Phone: Otheron 04-20-2019 Test Performed by [email or web address], [address] [place], [place] [address] [employer] [employer] Work Phone: Interpretation and review of laboratory results Abnormal [facility] Work Phone: Test Performed by [email or web address], [address] [place], [place] [address] [employer] Work Phone: [phone] Vitamin B12on 04-20-2019 Cobalamin (Vitamin B12) [Mass/Vol] 763 pg/mL 239 - 931 pg/mL [facility] Work Phone: Vitamin D 25 Hydroxyon 04-20 Interpretation and review of laboratory results Abnormal [facility] Work Phone: Vit D, 25-Hydroxy 102 ng/mL High 30 - 100 ng/mL [facility] [employer] Work Phone: Comment on above: Therapy is based on measurement of Total 25-OHD with the following classification levels: Less than 20 ng/mL: Indicative of Vit D deficiency 20-30 ng/mL: Suggests Vit D insufficiency Optimal: Greater than or equal to 30 ng/mL Test performed by [employer], measuring Total Vitamin D, not individual fractions. Test Performed by [email or web address], [address] [facility], [place] [address] [employer] Work Phone: CBCon 01-14-2019 Erythrocyte distribution width (RBC) [Ratio] 13.8 % 11.5 - 14.5 % [facility], [place] Hematocrit (Bld) [Volume fraction] 42.3 % 40 - 52 % [facility], [place] Hemoglobin (Bld) [Mass/Vol] 14.4 g/dL 13 - 18 g/dL [facility], [place] MCH (RBC) [Entitic mass] 30.4 pg 26 - 34 pg [place], [place] MCHC (RBC) [Mass/Vol] 34.2 % 32 - 36 % [place], [place] MCV (RBC) [Entitic vol] 88.8 fL 80 - 98 fL [place], [place] Platelet mean volume (Bld) [Entitic vol] 9.1 fL 7.4 - 10.4 fL [place] Platelets (Bld) [#/Vol] 179 10*3/uL 140 - 440 10*3/uL [place] Comment on above: No platelet clumping . Specimen checked for clot. RBC (Bld) [#/Vol] 4.76 10*6/uL 4.4 - 5.9 10*6/uL [place] WBC (Bld) [#/Vol] 6.3 10*3/uL 3.6 - 10.7 10*3/uL [place] Test Performed by [facility], [facility] Tim [address]rich , [address] Comprehensive Metabolic Pane jared 01-14-2019 Albumin [Mass/Vol] 3.6 g/dL 3.5 - 5 g/dL [place] ALP [Catalytic activity/Vol] 83 U/L 38 - 126 U/L [place] ALT [Catalytic activity/Vol] 56 U/L 13 - 69 U/L [place] Anion gap [Moles/Vol] 7 mmol/L [place], [place] AST [Catalytic activity/Vol] 29 U/L 15 - 46 U/L [place] Bilirubin Ql (U) 0.8 mg/dL 0.2 - 1.3 mg/dL [place] Calcium [Mass/Vol] 9.4 mg/dL 8.4 - 10. 4 mg/dL [place] Chloride [Moles/Vol] 109 mmol/L High 98 - 10 7 mmol/L [place] CO2 [Moles/Vol] 24 mmol/L 22 - 30 mmol/L [place] Creatinine [Mass/Vol] 0.81 mg/dL 0.52 - 1.25 mg/dL [place] EGFR IF NonAfrican Belarusian >60.0 >60 mL/m in [place] Comment on above: Source- MDRD equatio n with creatinine calibration to IDMS(NKDEP) eGFR not recommended for drug dose adjustment GFR/1.73 sq M predicted among blacks MDRD (S/P/Bld) [Vol rate/Area] mL/min/{1.73_m2} >60 mL/min [place] Glucose [Mass/Vol] 83 mg/dL 70 - 100 mg/dL [place] Potassium [Moles/Vol] 4.2 mmol/L 3.5 - 5.1 mmol/L [place] Protein [Mass/Vol] 6.0 g/dL Low 6.3 - 8.2 g/dL [place] Sodium [Moles/Vol] 140 mmol/L 135 - 145 mmol/L [place] Urea nitrogen [Mass/Vol] 15 mg/dL 7 - 20 mg/dL [place] Ferritinon 01-14-2019 Ferritin [Mass/Vol] 246 ng/mL 18 - 464 ng/mL [place] Folateon 01-14-2019 Folate >20.0 2.8 - 20 ng/mL [place] Ironon 01-14-2019 Iron [Mass/Vol] 83 ug/dL 49 - 181 ug/dL [place] Test Performed by [facility], [address] [place], [place] [address] , [address] Lipid Panelon 01-14-2019 Cholesterol [Mass/Vol] 91 mg/dL <200 [place], [place] Cholesterol in HDL [Mass/Vol] 32 mg/dL Low 40 - 60 mg/dL [place] Cholesterol in LDL [Mass/Vol] 41 mg/dL <100 [place] Cholesterol.total/Cholester ol in HDL [Mass ratio] 3 {ratio} [place] Comment on above: Ref Range: < 3 Low Risk for CHD 3-6 Mod Risk for CHD > 6 High Risk for CHD Triglyceride [Mass/Vol] 90 mg/dL <150 M [place], [place] Magnesiumon 01-14-2019 Magnesium [Mass/Vol] 1.7 mg/dL 1.6 - 2 .3 mg/dL [place] Otheron 01-14-2019 Test Performed by [facility] [employer] [facility], [address] , [place], [place] [id number] [place] [address] Test Performed by [facility] [employer] [facility], [address] , [place], [place] [id number] [place] [address] Interpretation and review of laboratory results Abnormal [place], [place] Vitamin B12on 01-14-2019 Cobalamin (Vitamin B12) [Mass/Vol] 914 pg/mL 239 - 931 pg/mL [place], [place] Vitamin D 25 Hydroxyon 01-14 Vit D, 25-Hydroxy 99 ng/mL 30 - 100 ng/mL [place] Comment on above: Therapy is based on measurement of Total 25-OHD with the following classification levels: Less than 20 ng/mL: Indicative of Vit D deficiency 20-30 ng/mL: Suggests Vit D insufficiency Optimal: Greater than or equal to 30 ng/mL Test performed by [employer], measuring Total Vitamin D, not individual fractions. Test Performed by [facility], [address] [place], [place], [place] [id number] [place] [address] OTARon 11-26-2018 OT Assessment Report Normal [facility] Occupational Therapy Performance Skills Evaluation Therapy Diagnosis: Rank Code Description Date of Onset 1 S06.5X Traumatic subdural hemorrhage 12/03/2018 2 Z91.81 History of falling 12/03/2018 Initial Evaluation Date: 11/26/18 Referring Clinician: Nicholas Urias Medical Diagnosis: HEAD INJURY SECONDARY TO TRAUMATIC FALL/SUBDURAL INTRACRANIAL BLEED Date of Onset: 07/09/18 Past Medical History: type 2 diabetes mellitus, bariatric surgery 02/01, gallbladder removed 03/03, MARKY, cardiac stent, HTN, elevated cholesterol Current Medications: calcium with vitamin D, multiple vitamin, Celexa, vitamin D3, Topromate, Melatonin, vitamin B12, Prilosec, Lipitor, Levothyroxine Demographics: Age: 57Y Gender: Male Primary Language: Ecuadorean Preferred Language: Ecuadorean OCCUPATIONAL PROFILE AND HISTORY Basic ADLs: he completes all self care on his own while will have his help him on occasion with socks Instrumental ADLs: he lives with his who does all of the home management tasks including setting up his bills and managing finances; he will take the dog out and get the mail while otherwise mostly sendentary Work/Leisure/Educati on: he completed 12 years of formal education; he has not worked in a few years while 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 MEDICAL REC #: [id number] [place] [address] ADMIT DATE: SERVICE DATE: 11/26/18 Occupational Therapy Assessment ATTENDING PHY: Nicholas Urias MD Reason for Driving is: [place] Social/Leisure Home management He did most all of the driving prior to the fall while his has MS and drives using L foot accelerator while will typically limit her driving. History of Accidents: Patient does not have a history of accidents. Traffic Violations: Patient does not have any traffic violations. Patient Report: Nasim indicated that he feels he is able to return to driving again. Patient/Caregiver Goals: Patient's functional goals: return to providing for own and 's transportation needs. Pain: Patient currently without complaints of pain. Social History: Marital Status: Children: 1 son ( has 2 kids) Reside: his son is in [facility] while hers live in [place] Employment Status: none Recreational Activities/Hobbies: none identified Self-reported Quality of Life: At present time, patient reports having a very good quality of life/health status. OBJECTIVE / OCCUPATIONAL PERFORMANCE General Observation: Nasim was cooperative during session while also present providing helpful information as requested. Visual/Perceptual Screening: Correctve Lenses: Patient wears corrective lenses. Date of Last Eye Exam: 08/21/18 with new glasses following Reading Skills: Higher level. Stereo - Optical Test: Far Acuity: 20/ 20 B glare far acuity 20/20; functional for B contrast sensitivity, color and stereodepth perception, B peripheral/nasal visual kirk Oculomotor Skills: LEFT EYE RANGE OF MOTION: Left eye has full range of motion RIGHT EYE RANGE OF MOTION: Right eye has full range of motion BOTH EYE RANGE OF MOTION: Both eyes have full range of motion DIPLOPIA ON GAZE TO: Superior CONVERGENCE: Normal (6-8) LEFT FIELD SACCADES: Direct Fixation RIGHT FIELD SACCADES: Direct Fixation PURSUITS: Sustained Fixation VISUAL SCANNING: . Motor Free Visual Perception Test: Raw Score: 24 /36. Processing Time: 5.9 seconds. Norms: 50 - 69, 3.0 - 5.4 sec. Raw score normal for age is 32-36 correct with most errors in visual memory and [facility] PATIENT NAME: BRADLEY KEYS [address] [facility] [address] MEDICAL REC #: [id number] [place] [address] ADMIT DATE: SERVICE DATE: 11/26/18 Occupational Therapy Assessment ATTENDING PHY: Nicholas Urias MD visual closure sections COGNITION Screening Orientation: No impairment detected (5/5 correct orientation reponses). Attention: [place] making test Part B: 95 seconds - possible slowness. Functional performance on alternating attention task <180 sec so within same Safety/Judgment/Prob teofilo Solving: required v/c's for answers to sweeper driver related question posed including hazards to be put on if emergency road situation and for calling 911 Memory: score on Short Blessed Cognitive screen of 10 which is in moderate impairment range while only errors in recall memory section Also noted during the evaluation: ONLY ABLE TO RECALL 4 DIGITS FORWARD FOR AUDITORY ATTENTION; able to recall 4/4 recent past presidents; Clock drawing score of 6/7 (normal >5/7) Physical Assessment Range of Motion: Impaired. Decreased for B shoulder AROM while appears to be related to forward head posture (indicated that he has slept in his recliner for at least a few years). Strength: Impaired. Somewhat decreased strength in B shoulders consistent with decreased AROM Sensation: Impaired. Reports has numbness/tingling in B feet for past several years Coordination: Within functional limits. Rapid Alternating Movement: Within functional limits. Sitting Balance: Within functional limits. Head/Neck Control: Impaired. Decreased rotation to right while rounded shoulders/forward head posture likely contributes Endurance: Impaired. He indicated that he still feels he is limited with overall endurance issues since the fall but that this is improving Mobility: Within functional limits. Hand Dominance: Right. Handicap Placard: Patient has a handicap placard. Road Sign Recognition/Rules of Driving: Pass. 95% correct Simulated Reaction - Braking Distance (Norms 60 ft): Reaction Distance: Average = 42 ft. Above Average. R foot only pedal operation method Family/Friend Interview/Survey: provided helpful information and indicated that she has MS and is limited with endurance often while drives with left foot accelerator. She does not prefer to drive long distances but can if she has to with breaks. Projected Adaptive Equipment Needs: none Psychosocial: Within normal limits [facility] PATIENT NAME: BRADLEY KEYS [address] [facility] [address] MEDICAL REC #: [id number] [place] [address] ADMIT DATE: SERVICE DATE: 11/26/18 Occupational Therapy Assessment ATTENDING PHY: Nicholas Urias MD Occupational Therapy On the Road Driving Assessment Type of Vehicle: [facility] Assistive Equipment: none Route: Envelope Folding Machine Operator Eval Route. Her drove a total of 8.9 miles while on variety of road ways including highway driving. Road Conditions: clear Weather Conditions: partly cloudy OBJECTIVE / OCCUPATIONAL PERFORMANCE Stationary Assessment - Driving Range Ratings Skills Transfer In and Out Average Load Mobility Device Not tested Fasten Seatbelt Average Secondary Controls Average Primary Controls Average Accel/Decelerate Average Braking Average Backing up Average Serpentine Curves Not tested Figure 8 Not tested Maneuverability Not tested no problems with orienting to sweeper driver evaluation vehicle Light (25mph) - Moderate Traffic(35mph) Ratings Skills Straight Aways Average Right Turns Average Left Turns Average Uses Turn Signals Average Stopsigns/Right away Average Speed Control Average 3 Point Turn/Backing Average Signs/Markings Average Curves/[place] Average Un/Protected Traffic Lights LTurn Average On Red Lights Traffic Lights RTurn Average Following Distance Average Yielding R Away Average [facility] PATIENT NAME: BRADLEY KEYS [address] [facility] [address] MEDICAL REC #: [id number] [place] [address] ADMIT DATE: SERVICE DATE: 11/26/18 Occupational Therapy Assessment ATTENDING PHY: Nicholas Urias MD VisualScan/Mirrors Average Driving/Parking Shopping Parking Lot Average Pulling into Traffic Average no issues observed during light traffic driving Heavy Traffic (40 - 45 mph Multi-lanes) Ratings Skills Speed Control Average Tam Usage Average Changing Lanes Average Checking Blind Spots Average Space Cushion Average L Turns Above Challenge Average functional performance during increased traffic situations Highway (55 mph) Ratings Skills Merging Acceleration Average Following Distance Average Speed Control Average Tam Use/Change Average Blind Spots Average Signaling Average Blending/Yeilding Average Exit/Deceleration Average did well with highway driving situations General Analysis Ratings Skills Follow Directions Average Atten/Concentration Average Anticipation Average Road Courtesy Average Safety Awareness Average Judgment Average Confidence Average he was consistent with following verbal instructions and demonstrating defensive driving skills Perception of Driving Performance: he indicated that he felt comfortable driving again [facility] PATIENT NAME: BRADLEY KEYS [address] [facility] [address] MEDICAL REC #: [id number] [place] [address] ADMIT DATE: SERVICE DATE: 11/26/18 Occupational Therapy Assessment ATTENDING PHY: Nicholas Urias MD Interventions: Evaluation HIGH Complexity Self Care/Home Management: refer to details in this report Education: The patient's preferred learning method is: Explanation Barriers to Learning: No barriers Learning Needs: Safety. Functional activities/mobility. Education Provided: Safety issues and interventions. Driving. Safety. Home exercise/activity plan. Audience: Patient and significant other. Mode: Explanation. Printed material provided. Response: Applied knowledge. Verbalized understanding. Demonstrated skill. ASSESSMENT Support Structure: Support structure is good. Family member willing to assist patient. Response to Evaluation: The session was tolerated well, as evidenced by: no complaints or concerns observed or reported PLAN Necessity: Patient does not require outpatient therapy in order to return to premorbid environment (or reside in new living environment). Patient does not require outpatient therapy in order to reduce Activities of Daily Living or Instrumental Activities of Daily Living assistance to a premorbid level. Recommended Consults: Nutrition. Diabetic education. OOD/BVR referral (this therapist did make for him to check out vocational options) The patient has been instructed to contact the clinic if any questions or problems should arise. Visit Number: Today's visit is number 1 Services: Total Billed: 150 minutes (Timed: 90, Untimed: 60) 90.00 Timed: [34731] ADL-HOME MANAGEMENT EA 15 MIN 60.00 Untimed: [09129] OT-EVALUATION HIGH COMPLEX Signed by: CLAIRE VELAZQUEZ OT/Cory, S, CDI/PD 12/03/2018 07:40:23 [facility] PATIENT NAME: BRADLEY KEYS [address] [facility] [address] MEDICAL REC #: [id number] [place] [address] ADMIT DATE: SERVICE DATE: 11/26/18 Occupational Therapy Assessment ATTENDING PHY: Nicholas Urias MD [facility] OTAR Occupational Therapy Community Mobility and IADL Report Performance Skills Evaluation Date: 11/26/[address] Driving Assessment: 11/26/18 Demographics: Age: 57Y Gender: Male Summary of Results: (see attached report(s) for details) Strengths: Nasim is able to complete most all of his self care tasks on his own while having support and assist from his as needed including with his medication set up and finance management; she completes most all of the home management tasks while he assists with taking the dog out and getting the mail; he has recently returned to some driving with his along while no specific concerns resulting; very good driving history per his report; formal eye exam with new glasses 09/02; clinically he demonstrated functional vision including as required by [facility] for far acuity and visual kirk, oculomotor skills, orientation/alternat ing attention/retrieval/ clock drawing performance, necessary physical skills for driving task, knowledge of road rules/signs, and above average simulated brake reaction distance; during the behind the wheel portion, he demonstrated no concerns including no recommendations for improved skills. Problem Areas: Nasim sustained a subdural intracranial brain bleed resulting from head injury due to traumatic fall at home off of a chair when trying to change light bulb with subsequent hospitalization and rehab; in less than 1 year, he had bariatric surgery with weight loss of 110 lbs. and gallbladder removed prior to the fall and head injury; he occasionally needs assist from his for sock donning; his who has MS and uses cane for ambulation and left foot accelerator to drive, completes almost all of the home management tasks in addition to medication and finance management while Nasim is significantly sedentary; he has not worked in a few years and currently has no income although he did verbalize that he would like to be able to return to working at some time in the future while he and his of 3 years exist on her disability; clinically he demonstrated not within normal range for age for raw score or average processing speed on visual perceptual screening, verbal cues needed for problem solving when talking about driving related situations, scored in moderate impairment range on Short Blessed Cognitive screen while errors in recall memory section, decreased auditory attention skills, impaired ROM for B shoulders while likely due to posture issues and habit of sleeping in recliner for the past few years at least, decreased B shoulder strength, numbness/tingling in B feet for past several years consistent with neuropathy, decreased neck rotation to right while likely related to forward head/rounded shoulder posture, limited endurance due to various health issues and decreased exertion/activity level; during the behind the wheel portion, no concerns were observed. [facility] PATIENT NAME: BRADLEY KEYS [address] [facility] [address] MEDICAL REC #: [id number] [place] [address] ADMIT DATE: SERVICE DATE: 11/26/18 Occupational Therapy Assessment ATTENDING MARY: Nicholas Urias MD Recommendations: Patient may resume driving with the following recommendations: Physician approval. DOUGLAS Galeas, and Keli Schaefer CNP should continuet to monitor Nasim's overall medical status and assure that he maintains his current level of function for ongoing pursuit of save operation of motor vehicle with future reassessment indicated if concerns arise. Restrictions. Long distance driving should be done when other licensed sweeper driver in the vehicle to assist as needed; do not drive when not feeling well including related to medication and diabetes management; avoid driving when extreme weather conditions; should continue to monitor his overall level of function including with driving skills to assure ongoing function with same while information will be provided regarding doing this. This therapist will provide Nasim and his with information regarding safe driving skills, crash avoidance, tips for monitoring driving, and when to stop driving for his reference. Vehicle and Equipment Needs: N/A Additional Comments: This therapist is confident in recommending that Nasim is able to return to safe operation of motor vehicle while following the restrictions indicated in this report. This therapist does strongly recommend that he increase his activity level both mentally and physically to maximize his overall level of function in addition to agreeing to make referral to [facility]/O[facility] for him so that he can have assistance in looking for employment in the future which he was in agreement with. Currently this therapist feels that he poses minimal risk of being involved in a crash which is consistent with the majority of all drivers on the road with this therapist feeling comfortable to share the roads with him at this time. Date: 12/03/18 Occupational Therapist/Envelope Folding Machine Operator Product Info Specialist signature Please Note: The results and recommendations included in the [employer]olding [employer] Evaluation Report are based on the patient's performance during the period of the evaluation and should not be relied on as absolute predictors of future performance. The conclusions and recommendations in this report are based, in part, upon the medical information available at the time. If subsequent to the issuance of this report, the patient's medical status changes in such a manner that may compromise the patient's ability as a sweeper driver, this report can longer be relied upon as valid. If the patient's physical and mental status remains the same as during the evaluation period, the recommendations in the report should be considered valid for 6 months. Beyond that time, a re - evaluation may be necessary. Signed by: CLAIRE VELAZQUEZ OT/Cory, GABRIELA, CDI/PD 12/07/2018 07:46:49 [facility] PATIENT NAME: BRADLEY KEYS Clarissa [address] MEDICAL REC #: [id number] [place] [address] ADMIT DATE: SERVICE DATE: 11/26/18 Occupational Therapy Assessment ATTENDING PHY: Nicholas Urias MD [facility] PATIENT NAME: BRADLEY KEYS [address] [facility] [address] MEDICAL REC #: [id number] [place] [address] ADMIT DATE: SERVICE DATE: 11/26/18 Occupational Therapy Assessment ATTENDING PHY: Nicholas Urias MD Normal [facility] Glucose Meteron 08-10-2018 Glucose mass conc 85 mg/dL Normal 70-99 [facility] Comment on above: Result Comment: RN N OTIFIED Performed By: #### G LMET #### [place] [address] Basic Panelon 08-07-2018 Creatinine mass conc 0.96 mg/dL Normal 0.67-1.17 [facility] Comment on above: Performed By: #### I ONCA #### [place] [address] Anion gap molar conc 11 mmol/L Normal 8-16 [facility] Comment on above: Performed By: #### I ONCA #### [place] [address] CO2 molar conc 28 mmol/L Normal 21-32 [facility] Comment on above: Performed By: #### I ONCA #### [place] [address] Glucose mass conc 82 mg/dL Normal 70-99 [facility] Comment on above: Performed By: #### I ONCA #### [place] [address] Urea nitrogen mass conc 15 mg/dL Normal 7-18 [facility] Comment on above: Performed By: #### I ONCA #### [facility] [address] [place] [address] Calcium mass conc 8.5 mg/dL Normal 8.5-10.1 [facility] Comment on above: Performed By: #### I ONCA #### [facility] [address] [place] [address] Chloride molar conc 105 mmol/L Normal 98-107 [facility] Comment on above: Performed By: #### I ONCA #### [facility] [address] [place] [address] Potassium molar conc 3.8 mmol/L Normal 3.5-5.1 [facility] Comment on above: Performed By: #### I ONCA #### [facility] [address] [place] [address] Sodium molar conc 140 mmol/L Normal 136-145 [facility] Comment on above: Performed By: #### I ONCA #### [facility] [address] [place] [address] Hemogram/Diffon 08-07-2018 Abs Immature Grans 0.03 thou/cmm Normal 0.00-0.05 [facility] Comment on above: Performed By: #### I ONCA #### [facility] [address] [place] [address] Abs Neut (ANC) 3.93 thou/cmm Normal 1.78-5.38 [facility] Comment on above: Performed By: #### I ONCA #### [facility] [address] [place] [address] Abs. Baso 0.04 thou/cmm Normal 0.01-0.08 [facility] Comment on above: Performed By: #### I ONCA #### [facility] [address] [place] [address] Abs. [place] 0.45 thou/cmm Normal 0.30-0.82 [facility] Comment on above: Performed By: #### I ONCA #### [facility] [address] [place], [place] [address] Basophils/100 WBC (Bld) 0.6 % Normal [facility] Comment on above: Performed By: #### I ONCA #### [facility] [address] [place], [place] [address] Eosinophils #/vol (Bld) 0.33 thou/cmm Normal 0.04-0.54 [facility] Comment on above: Performed By: #### I ONCA #### [facility] [address] [place], [place] [address] Eosinophils/100 WBC (Bld) 4.6 % Normal [facility] Comment on above: Performed By: #### I ONCA #### [facility] [address] [place] [address] Erythrocyte distribution width Ratio (RBC) 13.1 % Normal 11.6-14.4 [facility] Comment on above: Performed By: #### I ONCA #### [facility] [address] [place] [address] Hematocrit Volume Fraction (Bld) 34.4 % Low 40.1-51.0 [facility] Comment on above: Performed By: #### I ONCA #### [facility] [address] [place] [address] Hemoglobin mass conc (Bld) 11.6 g/dL Low 13.7-17.5 [facility] Comment on above: Performed By: #### I ONCA #### [place] [address] Immature Grans 0.40 % Normal [facility] Comment on above: Performed By: #### I ONCA #### [facility] [address] [place] [address] Lymphocytes #/vol (Bld) 2.39 thou/cmm Normal 0.84-2.85 [facility] Comment on above: Performed By: #### I ONCA #### [address] [address] Lymphocytes/100 WBC (Bld) 33.3 % Normal [facility] Comment on above: Performed By: #### I ONCA #### [address] [place], [place] [address] MCH Entitic mass (RBC) 29.1 pg Normal 25.7-32.2 [facility] Comment on above: Performed By: #### I ONCA #### [facility] [address] [place] [address] MCHC mass conc (RBC) 33.7 % Normal 32.3-36.5 [facility] Comment on above: Performed By: #### I ONCA #### [facility] [address] [place] [address] MCV Entitic volume (RBC) 86.2 fL Normal 83.2-95.6 [facility] Comment on above: Performed By: #### I ONCA #### [place] [address] Monocytes/100 WBC (Bld) 6.3 % Normal [facility] Comment on above: Performed By: #### I ONCA #### [facility] [address] [place] [address] Platelet mean volume Entitic volume (Bld) 9.9 fL Normal 8.7-12.0 [facility] Comment on above: Performed By: #### I ONCA #### [place] [address] Platelets #/vol (Bld) 166 thou/cmm Normal 141-365 [facility] Comment on above: Performed By: #### I ONCA #### [facility] [address] [place] [address] RBC #/vol (Bld) 3.99 mil/cmm Low 4.63-6.08 [facility] Comment on above: Performed By: #### I ONCA #### [facility] [address] [place] [address] RDW SD 41.0 fl Normal 36.1-45.8 [facility] Comment on above: Performed By: #### I ONCA #### [place] [address] Seg Neutrophil 54.8 % Normal [facility] Comment on above: Performed By: #### I ONCA #### [facility] [address] [place] [address] WBC #/vol (Bld) 7.17 thou/cmm Normal 4.23-9.07 [facility] Comment on above: Performed By: #### I ONCA #### [facility] [address] [place] [address] MDRD GFRon 08-07-2018 GFR/1.73 sq M predicted among non-blacks MDRD vol rate/area (S/P/Bld) mL/min/{1.73_m2} Normal >60mL/min/1 .73m2 [facility] Comment on above: Result Comment: If t he patient is , multiply the result by 1.210. Performed By: #### G FR #### [facility] [address] [place] [address] Basic Panelon 08-06-2018 Creatinine mass conc 0.80 mg/dL Normal 0.67-1.17 [facility] Comment on above: Performed By: #### I ONCA #### [facility] [address] [place] [address] Anion gap molar conc 12 mmol/L Normal 8-16 [facility] Comment on above: Performed By: #### I ONCA #### [facility] [address] [place] [address] CO2 molar conc 27 mmol/L Normal 21-32 [facility] Comment on above: Performed By: #### I ONCA #### [facility] [address] [place] [address] Glucose mass conc 89 mg/dL Normal 70-99 [facility] Comment on above: Performed By: #### I ONCA #### [facility] [address] [place] [address] Urea nitrogen mass conc 13 mg/dL Normal 7-18 [facility] Comment on above: Performed By: #### I ONCA #### [facility] [address] [place] [address] Calcium mass conc 9.1 mg/dL Normal 8.5-10.1 [facility] Comment on above: Performed By: #### I ONCA #### [facility] [address] [place] [address] Chloride molar conc 106 mmol/L Normal 98-107 [facility] Comment on above: Performed By: #### I ONCA #### [facility] [address] [place] [address] Potassium molar conc 3.9 mmol/L Normal 3.5-5.1 [facility] Comment on above: Performed By: #### I ONCA #### [facility] [address] [place] [address] Sodium molar conc 141 mmol/L Normal 136-145 [facility] Comment on above: Performed By: #### I ONCA #### [facility] [address] [place] [address] Hemogram/Diffon 08-06-2018 Abs Immature Grans 0.04 thou/cmm Normal 0.00-0.05 [facility] Comment on above: Performed By: #### I ONCA #### [place] [address] Abs Neut (ANC) 5.39 thou/cmm High 1.78-5.38 [facility] Comment on above: Performed By: #### I ONCA #### [facility] [address] [place] [address] Abs. Baso 0.06 thou/cmm Normal 0.01-0.08 [facility] Comment on above: Performed By: #### I ONCA #### [place] [address] Abs. [place] 0.53 thou/cmm Normal 0.30-0.82 [facility] Comment on above: Performed By: #### I ONCA #### [place] [address] Basophils/100 WBC (Bld) 0.7 % Normal [facility] Comment on above: Performed By: #### I ONCA #### [place] [address] Eosinophils #/vol (Bld) 0.36 thou/cmm Normal 0.04-0.54 [facility] Comment on above: Performed By: #### I ONCA #### [facility] [address] [place], [place] [address] Eosinophils/100 WBC (Bld) 4.2 % Normal [facility] Comment on above: Performed By: #### I ONCA #### [facility] [address] [place] [address] Erythrocyte distribution width Ratio (RBC) 13.1 % Normal 11.6-14.4 [facility] Comment on above: Performed By: #### I ONCA #### [facility] [address] [place] [address] Hematocrit Volume Fraction (Bld) 36.8 % Low 40.1-51.0 [facility] Comment on above: Performed By: #### I ONCA #### [place] [address] Hemoglobin mass conc (Bld) 12.3 g/dL Low 13.7-17.5 [facility] Comment on above: Performed By: #### I ONCA #### [place] [address] Immature Grans 0.50 % Normal [facility] Comment on above: Performed By: #### I ONCA #### [place] [address] Lymphocytes #/vol (Bld) 2.11 thou/cmm Normal 0.84-2.85 [facility] Comment on above: Performed By: #### I ONCA #### [place] [address] Lymphocytes/100 WBC (Bld) 24.9 % Normal [facility] Comment on above: Performed By: #### I ONCA #### [facility] [address] [place] [address] MCH Entitic mass (RBC) 29.1 pg Normal 25.7-32.2 [facility] Comment on above: Performed By: #### I ONCA #### [place] [address] MCHC mass conc (RBC) 33.4 % Normal 32.3-36.5 [facility] Comment on above: Performed By: #### I ONCA #### [facility] [address] [place] [address] MCV Entitic volume (RBC) 87.2 fL Normal 83.2-95.6 [facility] Comment on above: Performed By: #### I ONCA #### [facility] [address] [place] [address] Monocytes/100 WBC (Bld) 6.2 % Normal [facility] Comment on above: Performed By: #### I ONCA #### [facility] [address] [place] [address] Platelet mean volume Entitic volume (Bld) 10.2 fL Normal 8.7-12.0 [facility] Comment on above: Performed By: #### I ONCA #### [place] [address] Platelets #/vol (Bld) 176 thou/cmm Normal 141-365 [facility] Comment on above: Performed By: #### I ONCA #### [facility] [address] [place] [address] RBC #/vol (Bld) 4.22 mil/cmm Low 4.63-6.08 [facility] Comment on above: Performed By: #### I ONCA #### [facility] [address] [place] [address] RDW SD 41.1 fl Normal 36.1-45.8 [facility] Comment on above: Performed By: #### I ONCA #### [facility] [address] [place] [address] Seg Neutrophil 63.5 % Normal [facility] Comment on above: Performed By: #### I ONCA #### [facility] [address] [place] [address] WBC #/vol (Bld) 8.49 thou/cmm Normal 4.23-9.07 [facility] Comment on above: Performed By: #### I ONCA #### [facility] [address] [place] [address] Basic Panelon 08-05-2018 Creatinine mass conc 0.86 mg/dL Normal 0.67-1.17 [facility] Comment on above: Performed By: #### C BCD1 #### [facility] [address] [place] [address] Anion gap molar conc 10 mmol/L Normal 8-16 [facility] Comment on above: Performed By: #### C BCD1 #### [facility] [address] [place], [place] [address] CO2 molar conc 25 mmol/L Normal 21-32 [facility] Comment on above: Performed By: #### C BCD1 #### [facility] [address] [place] [address] Glucose mass conc 81 mg/dL Normal 70-99 [facility] Comment on above: Performed By: #### C BCD1 #### [facility] [address] [place] [address] Urea nitrogen mass conc 12 mg/dL Normal 7-18 [facility] Comment on above: Performed By: #### C BCD1 #### [facility] [address] [place] [address] Calcium mass conc 8.0 mg/dL Low 8.5-10.1 [facility] Comment on above: Performed By: #### C BCD1 #### [facility] [address] [place], [place] [address] Chloride molar conc 112 mmol/L High 98-107 [facility] Comment on above: Performed By: #### C BCD1 #### [facility] [address] [place] [address] Potassium molar conc 3.8 mmol/L Normal 3.5-5.1 [facility] Comment on above: Performed By: #### C BCD1 #### [facility] [address] [place] [address] Sodium molar conc 143 mmol/L Normal 136-145 [facility] Comment on above: Performed By: #### C BCD1 #### [facility] [address] [place] [address] Hemogram/Diffon 08-05-2018 Abs Immature Grans 0.02 thou/cmm Normal 0.00-0.05 [facility] Comment on above: Performed By: #### C BCD1 #### [facility] [address] [place] [address] Abs Neut (ANC) 3.97 thou/cmm Normal 1.78-5.38 [facility] Comment on above: Performed By: #### C BCD1 #### [facility] [address] [place] [address] Abs. Baso 0.03 thou/cmm Normal 0.01-0.08 [facility] Comment on above: Performed By: #### C BCD1 #### [facility] [address] [place] [address] Abs. [place] 0.48 thou/cmm Normal 0.30-0.82 [facility] Comment on above: Performed By: #### C BCD1 #### [place] [address] Basophils/100 WBC (Bld) 0.5 % Normal [facility] Comment on above: Performed By: #### C BCD1 #### [place] [address] Eosinophils #/vol (Bld) 0.26 thou/cmm Normal 0.04-0.54 [facility] Comment on above: Performed By: #### C BCD1 #### [place] [address] Eosinophils/100 WBC (Bld) 4.1 % Normal [facility] Comment on above: Performed By: #### C BCD1 #### [place] [address] Erythrocyte distribution width Ratio (RBC) 13.5 % Normal 11.6-14.4 [facility] Comment on above: Performed By: #### C BCD1 #### [place] [address] Hematocrit Volume Fraction (Bld) 28.0 % Low 40.1-51.0 [facility] Comment on above: Performed By: #### C BCD1 #### [facility] [address] [place] [address] Hemoglobin mass conc (Bld) 9.1 g/dL Low 13.7-17.5 [facility] Comment on above: Performed By: #### C BCD1 #### [facility] [address] [place] [address] Immature Grans 0.30 % Normal [facility] Comment on above: Performed By: #### C BCD1 #### [facility] [address] [place] [address] Lymphocytes #/vol (Bld) 1.62 thou/cmm Normal 0.84-2.85 [facility] Comment on above: Performed By: #### C BCD1 #### [facility] [address] [place] [address] Lymphocytes/100 WBC (Bld) 25.4 % Normal [facility] Comment on above: Performed By: #### C BCD1 #### [facility] [address] [place] [address] MCH Entitic mass (RBC) 29.4 pg Normal 25.7-32.2 [facility] Comment on above: Performed By: #### C BCD1 #### [facility] [address] [place] [address] MCHC mass conc (RBC) 32.5 % Normal 32.3-36.5 [facility] Comment on above: Performed By: #### C BCD1 #### [facility] [address] [place] [address] MCV Entitic volume (RBC) 90.3 fL Normal 83.2-95.6 [facility] Comment on above: Performed By: #### C BCD1 #### [facility] [address] [place] [address] Monocytes/100 WBC (Bld) 7.5 % Normal [facility] Comment on above: Performed By: #### C BCD1 #### [facility] [address] [place] [address] Platelet mean volume Entitic volume (Bld) 10.3 fL Normal 8.7-12.0 [facility] Comment on above: Performed By: #### C BCD1 #### [facility] [address] [place], [place] [address] Platelets #/vol (Bld) 122 thou/cmm Low 141-365 [facility] Comment on above: Performed By: #### C BCD1 #### [facility] [address] [place] [address] RBC #/vol (Bld) 3.10 mil/cmm Low 4.63-6.08 [facility] Comment on above: Performed By: #### C BCD1 #### [facility] [address] [place] [address] RDW SD 45.0 fl Normal 36.1-45.8 [facility] Comment on above: Performed By: #### C BCD1 #### [facility] [address] [place] [address] Seg Neutrophil 62.2 % Normal [facility] Comment on above: Performed By: #### C BCD1 #### [facility] [address] [place] [address] WBC #/vol (Bld) 6.38 thou/cmm Normal 4.23-9.07 [facility] Comment on above: Performed By: #### C BCD1 #### [facility] [address] [place] [address] Ionized Calciumon 08-05-2018 Ionized Ca,PH7.4 4.29 mg/dL Low 4.61-5.17 [facility] Comment on above: Performed By: #### C BCD1 #### [facility] [address] [place] [address] pH (Bld) 7.346 [pH] Normal 7.320-7.430 [facility] Comment on above: Performed By: #### C BCD1 #### [facility] [address] [place] [address] Ionized Calcium 4.42 mg/dL Low 4.61-5.17 [facility] Comment on above: Performed By: #### C BCD1 #### [place] [address] Magnesium Bloodon 08-05-2018 Magnesium mass conc 1.8 mg/dL Normal 1.6-2.6 [facility] Comment on above: Performed By: #### C BCD1 #### [facility] [address] [place] [address] Phosphorus Bloodon 9 Phosphate mass conc 3.1 mg/dL Normal 2.5-4.9 [facility] Comment on above: Performed By: #### C BCD1 #### [facility] [address] [place] [address] Activated PTTon 08-04-2018 aPTT Coag time (Bld) 25.8 s Normal 23.0-32.4 [facility] Comment on above: Result Comment: Unfr actionated Heparin Therapeutic Ranges: Standard Heparin Nomogram: 53 to 78 seconds (anti-Xa level of 0.3 to 0.7 U/mL) Low Dose/ACS Nomogram: 49 to 67 seconds (anti-Xa level of 0.2 to 0.5 U/mL) Stroke Treatment Nomogram: 49 to 67 seconds (anti-Xa level of 0.2 to 0.5 U/mL) Note: The APTT therapeutic range has been determined for the current lot of laboratory APTT reagent in use throughout the [facility]. Performed By: #### C BCD1 #### [facility] [address] [place] [address] Basic Panelon 08-04-2018 Creatinine mass conc 0.96 mg/dL Normal 0.67-1.17 [facility] Comment on above: Performed By: #### P 8 #### [facility] [address] [place] [address] Anion gap molar conc 8 mmol/L Normal 8-16 [facility] Comment on above: Performed By: #### P 8 #### [facility] [address] [place] [address] Calcium mass conc 8.9 mg/dL Normal 8.5-10.1 [facility] Comment on above: Performed By: #### P 8 #### [facility] [address] [place] [address] CO2 molar conc 27 mmol/L Normal 21-32 [facility] Comment on above: Performed By: #### P 8 #### [facility] [address] [place] [address] Glucose mass conc 115 mg/dL High 70-99 [facility] Comment on above: Performed By: #### P 8 #### [facility] [address] [place] [address] Urea nitrogen mass conc 13 mg/dL Normal 7-18 [facility] Comment on above: Performed By: #### P 8 #### [facility] [address] [place] [address] Chloride molar conc 110 mmol/L High 98-107 [facility] Comment on above: Performed By: #### P 8 #### [facility] [address] [place] [address] Potassium molar conc 4.4 mmol/L Normal 3.5-5.1 [facility] Comment on above: Performed By: #### P 8 #### [facility] [address] [place] [address] Sodium molar conc 141 mmol/L Normal 136-145 [facility] Comment on above: Performed By: #### P 8 #### [facility] [address] [place] [address] Hemogram/Diffon 08-04-2018 Abs Immature Grans 0.02 thou/cmm Normal 0.00-0.05 [facility] Comment on above: Performed By: #### C BCD1 #### [facility] [address] [place] [address] Abs Neut (ANC) 5.08 thou/cmm Normal 1.78-5.38 [facility] Comment on above: Performed By: #### C BCD1 #### [facility] [address] [place] [address] Abs. Baso 0.06 thou/cmm Normal 0.01-0.08 [facility] Comment on above: Performed By: #### C BCD1 #### [facility] [address] [place] [address] Abs. [place] 0.62 thou/cmm Normal 0.30-0.82 [facility] Comment on above: Performed By: #### C BCD1 #### [facility] [address] [place], [place] [address] Basophils/100 WBC (Bld) 0.7 % Normal [facility] Comment on above: Performed By: #### C BCD1 #### [facility] [address] [place], [place] [address] Eosinophils #/vol (Bld) 0.35 thou/cmm Normal 0.04-0.54 [facility] Comment on above: Performed By: #### C BCD1 #### [facility] [address] [place], [place] [address] Eosinophils/100 WBC (Bld) 4.0 % Normal [facility] Comment on above: Performed By: #### C BCD1 #### [facility] [address] [place], [place] [address] Erythrocyte distribution width Ratio (RBC) 13.8 % Normal 11.6-14.4 [facility] Comment on above: Performed By: #### C BCD1 #### [facility] [address] [place] [address] Hematocrit Volume Fraction (Bld) 38.5 % Low 40.1-51.0 [facility] Comment on above: Performed By: #### C BCD1 #### [facility] [address] [place], [place] [address] Hemoglobin mass conc (Bld) 12.5 g/dL Low 13.7-17.5 [facility] Comment on above: Performed By: #### C BCD1 #### [facility] [address] [place], [place] [address] Immature Grans 0.20 % Normal [facility] Comment on above: Performed By: #### C BCD1 #### [facility] [address] [place], [place] [address] Lymphocytes #/vol (Bld) 2.63 thou/cmm Normal 0.84-2.85 [facility] Comment on above: Performed By: #### C BCD1 #### [facility] [address] [place], [place] [address] Lymphocytes/100 WBC (Bld) 30.0 % Normal [facility] Comment on above: Performed By: #### C BCD1 #### [facility] [address] [place] [address] MCH Entitic mass (RBC) 29.3 pg Normal 25.7-32.2 [facility] Comment on above: Performed By: #### C BCD1 #### [facility] [address] [place] [address] MCHC mass conc (RBC) 32.5 % Normal 32.3-36.5 [facility] Comment on above: Performed By: #### C BCD1 #### [facility] [address] [place] [address] MCV Entitic volume (RBC) 90.2 fL Normal 83.2-95.6 [facility] Comment on above: Performed By: #### C BCD1 #### [facility] [address] [place] [address] Monocytes/100 WBC (Bld) 7.1 % Normal [facility] Comment on above: Performed By: #### C BCD1 #### [facility] [address] [place] [address] Platelet mean volume Entitic volume (Bld) 10.3 fL Normal 8.7-12.0 [facility] Comment on above: Performed By: #### C BCD1 #### [facility] [address] [place] [address] Platelets #/vol (Bld) 186 thou/cmm Normal 141-365 [facility] Comment on above: Performed By: #### C BCD1 #### [facility] [address] [place] [address] RBC #/vol (Bld) 4.27 mil/cmm Low 4.63-6.08 [facility] Comment on above: Performed By: #### C BCD1 #### [facility] [address] [place] [address] RDW SD 45.3 fl Normal 36.1-45.8 [facility] Comment on above: Performed By: #### C BCD1 #### [facility] [address] [place] [address] Seg Neutrophil 58.0 % Normal [facility] Comment on above: Performed By: #### C BCD1 #### [facility] [address] [place] [address] WBC #/vol (Bld) 8.76 thou/cmm Normal 4.23-9.07 [facility] Comment on above: Performed By: #### C BCD1 #### [facility] [address] [place] [address] Ionized Calciumon 08-04-2018 Ionized Ca,PH7.4 4.43 mg/dL Low 4.61-5.17 [facility] Comment on above: Performed By: #### I ONCA #### [facility] [address] [place] [address] pH (Bld) 7.279 [pH] Low 7.320-7.430 [facility] Comment on above: Performed By: #### I ONCA #### [place] [address] Ionized Calcium 4.74 mg/dL Normal 4.61-5.17 [facility] Comment on above: Performed By: #### I ONCA #### [facility] [address] [place] [address] Magnesium Bloodon 08-04-2018 Magnesium mass conc 2.1 mg/dL Normal 1.6-2.6 [facility] Comment on above: Performed By: #### C BCD1 #### [place] [address] Phosphorus Bloodon 9 Phosphate mass conc 3.1 mg/dL Normal 2.5-4.9 [facility] Comment on above: Performed By: #### C BCD1 #### [facility] [address] [place] [address] Protimeon 08-04-2018 INR Coag RelTime (PPP) 1.05 {INR} Normal 0.90-1.30 [facility] Comment on above: Result Comment: Jacqueline min K Antagonist (VKA) Therapeutic Range: INR 2 to 3 (Target INR of 2.5) Note: For patients treated with VKA drugs, such as warfarin, the [employer] 2012 Guideline recommends a therapeutic INR range of 2 to 3 (target INR of 2.5). This recommendation includes high-risk patients with antiphospholipid syndrome with previous arterial or venous thromboembolism, current-generation mechanical or bioprosthetic aortic heart valve replacement. VKA Therapeutic Range for some Mechanical Valve Replacement: INR 2.5 to 3.5 (Target INR of 3) Note: Patients with mechanical aortic valve replacement and additional risk factors for thromboembolic events (atrial fibrillation, previous thromboembolism, LV dysfunction, hypercoagulable conditions) or an older generation mechanical AVR (i.e., ball in-Cage) or any mechanical MVR should have a INR therapeutic range of 2.5 to 3.5 target INR of 3). Lisa GH, et al. Chest 2012; 141:7S-47S Manuel RA et al. [facility] 2017; 70: 252-289 Performed By: #### C BCD1 #### [place] [address] Prothrombin time (PT) Coag time (PPP) 10.9 s Normal 9.7-13.0 [facility] Comment on above: Performed By: #### C BCD1 #### [place] [address] Basic Panelon 08-03-2018 Creatinine mass conc 0.86 mg/dL Normal 0.67-1.17 [facility] Comment on above: Performed By: #### P 8 #### [place] [address] Anion gap molar conc 8 mmol/L Normal 8-16 [facility] Comment on above: Performed By: #### P 8 #### [facility] [address] [place] [address] Calcium mass conc 7.6 mg/dL Low 8.5-10.1 [facility] Comment on above: Performed By: #### P 8 #### [facility] [address] [place] [address] CO2 molar conc 27 mmol/L Normal 21-32 [facility] Comment on above: Performed By: #### P 8 #### [place] [address] Glucose mass conc 154 mg/dL High 70-99 [facility] Comment on above: Performed By: #### P 8 #### [facility] [address] [place] [address] Urea nitrogen mass conc 16 mg/dL Normal 7-18 [facility] Comment on above: Performed By: #### P 8 #### [facility] [address] [place] [address] Chloride molar conc 110 mmol/L High 98-107 [facility] Comment on above: Performed By: #### P 8 #### [facility] [address] [place] [address] Potassium molar conc 3.4 mmol/L Low 3.5-5.1 [facility] Comment on above: Performed By: #### P 8 #### [facility] [address] [place] [address] Sodium molar conc 142 mmol/L Normal 136-145 [facility] Comment on above: Performed By: #### P 8 #### [facility] [address] [place] [address] Hemogram/Diffon 08-03-2018 Abs Immature Grans 0.04 thou/cmm Normal 0.00-0.05 [facility] Comment on above: Performed By: #### C BCD1 #### [facility] [address] [place] [address] Abs Neut (ANC) 6.24 thou/cmm High 1.78-5.38 [facility] Comment on above: Performed By: #### C BCD1 #### [facility] [address] [place] [address] Abs. Baso 0.03 thou/cmm Normal 0.01-0.08 [facility] Comment on above: Performed By: #### C BCD1 #### [facility] [address] [place] [address] Abs. [place] 0.70 thou/cmm Normal 0.30-0.82 [facility] Comment on above: Performed By: #### C BCD1 #### [place] [address] Basophils/100 WBC (Bld) 0.3 % Normal [facility] Comment on above: Performed By: #### C BCD1 #### [facility] [address] [place], [place] [address] Eosinophils #/vol (Bld) 0.03 thou/cmm Low 0.04-0.54 [facility] Comment on above: Performed By: #### C BCD1 #### [facility] [address] [place], [place] [address] Eosinophils/100 WBC (Bld) 0.3 % Normal [facility] Comment on above: Performed By: #### C BCD1 #### [facility] [address] [place] [address] Erythrocyte distribution width Ratio (RBC) 13.4 % Normal 11.6-14.4 [facility] Comment on above: Performed By: #### C BCD1 #### [place] [address] Hematocrit Volume Fraction (Bld) 32.8 % Low 40.1-51.0 [facility] Comment on above: Performed By: #### C BCD1 #### [facility] [address] [place], [place] [address] Hemoglobin mass conc (Bld) 11.0 g/dL Low 13.7-17.5 [facility] Comment on above: Performed By: #### C BCD1 #### [place] [address] Immature Grans 0.40 % Normal [facility] Comment on above: Performed By: #### C BCD1 #### [facility] [address] [place], [place] [address] Lymphocytes #/vol (Bld) 1.90 thou/cmm Normal 0.84-2.85 [facility] Comment on above: Performed By: #### C BCD1 #### [facility] [address] [place], [place] [address] Lymphocytes/100 WBC (Bld) 21.3 % Normal [facility] Comment on above: Performed By: #### C BCD1 #### [facility] [address] [place] [address] MCH Entitic mass (RBC) 29.4 pg Normal 25.7-32.2 [facility] Comment on above: Performed By: #### C BCD1 #### [facility] [address] [place] [address] MCHC mass conc (RBC) 33.5 % Normal 32.3-36.5 [facility] Comment on above: Performed By: #### C BCD1 #### [facility] [address] [place] [address] MCV Entitic volume (RBC) 87.7 fL Normal 83.2-95.6 [facility] Comment on above: Performed By: #### C BCD1 #### [facility] [address] [place] [address] Monocytes/100 WBC (Bld) 7.8 % Normal [facility] Comment on above: Performed By: #### C BCD1 #### [facility] [address] [place] [address] Platelet mean volume Entitic volume (Bld) 10.5 fL Normal 8.7-12.0 [facility] Comment on above: Performed By: #### C BCD1 #### [facility] [address] [place] [address] Platelets #/vol (Bld) 162 thou/cmm Normal 141-365 [facility] Comment on above: Performed By: #### C BCD1 #### [facility] [address] [place] [address] RBC #/vol (Bld) 3.74 mil/cmm Low 4.63-6.08 [facility] Comment on above: Performed By: #### C BCD1 #### [facility] [address] [place] [address] RDW SD 42.9 fl Normal 36.1-45.8 [facility] Comment on above: Performed By: #### C BCD1 #### [facility] [address] [place] [address] Seg Neutrophil 69.9 % Normal [facility] Comment on above: Performed By: #### C BCD1 #### [facility] [address] [place] [address] WBC #/vol (Bld) 8.93 thou/cmm Normal 4.23-9.07 [facility] Comment on above: Performed By: #### C BCD1 #### [facility] [address] [place] [address] Ionized Calciumon 08-03-2018 Ionized Ca,PH7.4 4.16 mg/dL Low 4.61-5.17 [facility] Comment on above: Performed By: #### I ONCA #### [facility] [address] [place] [address] pH (Bld) 7.375 [pH] Normal 7.320-7.430 [facility] Comment on above: Performed By: #### I ONCA #### [facility] [address] [place] [address] Ionized Calcium 4.21 mg/dL Low 4.61-5.17 [facility] Comment on above: Performed By: #### I ONCA #### [place] [address] MRSA Screenon 08-03-2018 MRSA DNA GABI+probe Ql (Unsp spec) Test performed at [facility] No MRSA detected. Normal [facility] Comment on above: Performed By: #### C BCD1 #### [facility] [address] [place] [address] Magnesium Bloodon 08-03-2018 Magnesium mass conc 1.7 mg/dL Normal 1.6-2.6 [facility] Comment on above: Performed By: #### M AG #### [facility] [address] [place] [address] Phosphorus Bloodon 9 Phosphate mass conc 3.4 mg/dL Normal 2.5-4.9 [facility] Comment on above: Performed By: #### P HOS #### [place] [address] Office Visit: Diabetes Follo w up.on 01-01-2017 Documentation of current medications (procedure) Done Invalid Interpretation Code [facility] Work Phone: Office Visit: recheck DMon 0 09-03-2016 Fall risk assessment No Invalid Interpretation Code [employer] Phone: [phone] Office Visit: Diabetes consu lton 08-06-2016 Dietary management education, guidance, and counseling (procedure) yes Invalid Interpretation Code [facility] Phone: [phone] Fall risk assessment Fall risk assessment Invali d Interpretation Code [facility] Phone: [phone] Tobacco smoking status NHIS Never Inva lid Interpretation Code [facility] Work Phone: [phone] Tobacco use CPHS Never smoker Invalid Interpretation Code [facility] Phone: [phone] Lab Report: Basic Metabolic Profile (BMP)on 07-30-2016 Anion gap 8 mmol/L Invalid Interpretation Code 5-15 [facility] Phone: [phone] BUN/Creatinine Ratio 17.4 RATIO Invalid Interpretation Code 10-20 [facility] Phone: [phone] Calcium 8.8 mg/dL Invalid Interpretation Code 8.5-10.1 [facility] Phone: [phone] Chloride 102 mmol/L Invalid Interpretation Code 98-107 [facility] Phone: [phone] CO2 30.0 mmol/L Invalid Interpretation Code 21.0-32.0 [facility] Phone: [phone] Creatinine 0.92 mg/dL Invalid Interpretation Code 0.70-1.30 [facility] Phone: [phone] eGFR (non-black) 110 mL/min/{1.73_m2} Invalid Interpretation Code >60 [employer] Phone: [phone] eGFR (non-black) 91 mL/min/{1.73_m2} Invalid Interpretation Code >60 [facility] Phone: [phone] Glucose mass conc 232 mg/dL High 70-110 [facility] Work Phone: [phone] Potassium molar conc 4.4 mmol/L Invalid Interpretation Code 3.5-5.1 [employer] Phone: [phone] Sodium 140 mmol/L Invalid Interpretation Code 136-145 [employer] Phone: [phone] Urea nitrogen 16 mg/dL Invalid Interpretation Code 7-18 [facility] Work Phone: [phone] Replaced Document: Martina Saeedon 07-15-2016 EKG QRS axis 122 deg Invalid Interpretation Code [facility] Work Phone: [phone] Interpretation Sinus Rhythm WITHIN NORMAL LIMITS Invalid Interpretation Code [facility] Work Phone: [phone] P [place] 48 deg Invalid Interpretation Code [facility] [employer] [facility] Work Phone: [phone] NV Interval 178 ms Invalid Interpretation Code [facility] Work Phone: [phone] Pulse (Heart Rate) 68 /min Invalid Interpretation Code [facility] Work Phone: [phone] QRS Duration 112 ms Invalid Interpretation Code [facility] Work Phone: [phone] QT Interval new path ms Invalid Interpretation Code [facility] Work Phone: [phone] QTc Joshua 414 ms Invalid Interpretation Code [facility] [employer] Work Phone: [phone] T [place] 36 deg Invalid Interpretation Code [employer] Work Phone: [phone] Clinical Lists Update: 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 Alanine aminotransferase (ALT) 28 U/L Invalid Interpretation Code [facility] Work Phone: [phone] Albumin 3.8 g/dL Low [facility] Work Phone: [phone] Alkaline phosphatase (ALP) 92 U/L Inval id Interpretation Code [facility] Work Phone: [phone] Aspartate aminotransferase (AST) 22 U/L Invalid Interpretation Code [facility] Work Phone: [phone] Bilirubin (total) 0.5 mg/dL Invalid Interpretation Code [facility] Work Phone: [phone] Cholesterol 131 mg/dL Invalid Interpretation Code [facility] Work Phone: [phone] Cholesterol to HDL Ratio 3.97 {ratio} Invalid Interpretation Code [facility] Work Phone: [phone] HDL Cholesterol 33 mg/dL Low [facility] Work Phone: [phone] Hemoglobin A1c/Hemoglobin.total mass fraction (Bld) 10.6 % High [facility] [employer] Work Phone: [phone] LDL Cholesterol 65 mg/dL Invalid Interpretation Code [facility] Work Phone: [phone] LDL to HDL Ratio 1.97 Invalid Interpretation Code [facility] [employer] Work Phone: [phone] Protein 6.4 g/dL Invalid Interpretation Code [facility] Work Phone: [phone] Triglyceride 165 mg/dL High [facility] [employer] Work Phone: [phone] very low density lipoproteins 33 mg/dL Invalid Interpretation Code [facility] [employer] Work Phone: [phone] Clinical Lists Update: 03-22-2016 Left ventricular Ejection fraction 60 % Invalid Interpretation Code [facility] [employer] Work Phone: [phone] Clinical Lists Update: 04-18-2015 Erythrocyte distribution width Auto Ratio (RBC) 13.1 % Invalid Interpretation Code [facility] [employer] Work Phone: [phone] Erythrocytes (RBC) 5.05 10*6/uL Invalid Interpretation Code [facility] Work Phone: [phone] Hematocrit (HCT) 44.0 % Invalid Interpretation Code [facility] [employer] Work Phone: [phone] Hemoglobin mass conc (Bld) 15.5 g/dL Inval id Interpretation Code [facility] Work Phone: [phone] MCH 30.7 pg Invalid Interpretation Code [facility] [employer] Work Phone: [phone] MCHC mass conc (RBC) 35.2 g/dL Invalid Interpretation Code [facility] [employer] Work Phone: [phone] MCV 87.1 fL Invalid Interpretation Code [facility] [employer] Work Phone: [phone] Platelets 206 10*3/mm3 Invalid Interpretation Code [facility] Work Phone: [phone] PMV by Rosalva 10.8 fL Invalid Interpretation Code [facility] Work Phone: [phone] WBC (Leukocytes) 8.74 10*3/uL Invalid Interpretation Code [facility] Work Phone: [phone] Office Visiton 08-16-2014 Smoking cessation education (procedure) yes Invalid Interpretation Code [facility] Work Phone: [phone] Office Visiton 06-27-2014 cardiac risk group C Invalid Interpretation Code [facility] Work Phone: [phone] General cardiovascular disease 10Y risk [#] [place].Mounika'Agovladimir N/A Invalid Interpretation Code [facility] Work Phone: [phone] No Panel Information [facility] Vital Signs Date Time Vital Sign Value Performing Clinician Rosette yanez 11-25-2024 07:55-0400 Body mass index (BMI) [Ratio] 28.1 kg/m2 Dr. Hiram Burns DO Work Phone: [facility] 11-25-2024 07:55-0400 Body temperature 97.4 [degF] Dr. Hiram Burns DO Work Phone: 2(980)984-201068 [place] [address] 11-25-2024 07:55-0400 Body weight 81.[address] Hiram Burns DO Work Phone: 7(022)016-339668 [place] [address] 11-25-2024 07:55-0400 Diastolic blood pressure 63 mm[Hg] Dr. Hiram Burns DO Work Phone: [facility] 11-25-2024 07:55-0400 Heart rate 66 /min Dr. Hiram Burns DO Work Phone: 3(563)577-775468 [place] [address] 11-25-2024 07:55-0400 Respiratory rate 18 /min Dr. Hiram Burns DO Work Phone: 9(004)149-512168 [place] [address] 11-25-2024 07:55-0400 SaO2% (BldA) [Mass fraction] 99 % Dr. Hiram Burns DO Work Phone: [facility] 11-25-2024 07:55-0400 Systolic blood pressure 135 mm[Hg] Dr. Hiram Burns DO Work Phone: [facility] 11-03-2024 13:13-0400 Body mass index (BMI) [Ratio] 28.09 kg/m2 Kelley Craig APRN.CNP Work Phone: [facility] 11-03-2024 13:13-0400 Body weight 83.8 kg Kelley Andrapalliyal NEURO PSYCH SALES SPECIALIST.IN HOUSE COUNSEL Work Phone: [facility] 11-03-2024 13:13-0400 Diastolic blood pressure 69 mm[Hg] Kelley Andrapalliyal NEURO PSYCH SALES SPECIALIST.IN HOUSE COUNSEL Work Phone: [facility] 11-03-2024 13:13-0400 Heart rate 61 /min Kelley Andrapalliyal NEURO PSYCH SALES SPECIALIST.IN HOUSE COUNSEL Work Phone: [facility] 11-03-2024 13:13-0400 SaO2% (BldA) [Mass fraction] 99 % Kelley Andrapalliyal NEURO PSYCH SALES SPECIALIST.IN HOUSE COUNSEL Work Phone: [facility] 11-03-2024 13:13-0400 Systolic blood pressure 102 mm[Hg] Kelley Andrapalliyal NEURO PSYCH SALES SPECIALIST.IN HOUSE COUNSEL Work Phone: [facility] 10-18-2024 15:09-0400 Body height 170.18 cm Mandi Sandoval BUTTON BREAKER- C Work Phone: [facility] 10-18-2024 15:09-0400 Body mass index (BMI) [Ratio] 28.6 kg/m2 Mandi Sandoval [employer]TON BREAKER-C Work Phone: 5(410)876-353892 [place] [address] 10-18-2024 15:09-0400 Body weight 83 kg Mandi Sandoval [employer]TON BRE[employer]ER- C Work Phone: 6(667)654-316692 [place] [address] 10-18-2024 15:09-0400 Diastolic blood pressure 68 mm[Hg] Mandi Sandoval BUTTON BREAKER-C Work Phone: [facility] 10-18-2024 15:09-0400 Heart rate 61 /min Mandi Sandoval BUTTON BREAKER- C Work Phone: [facility] 10-18-2024 15:09-0400 Respiratory rate 18 /min Mandi Sandoval BUTTON BREAKER- C Work Phone: [facility] 10-18-2024 15:09-0400 Systolic blood pressure 102 mm[Hg] Mandi Sandoval BUTTON BREAKER-C Work Phone: [facility] 10-06-2024 09:05-0400 Body mass index (BMI) [Ratio] 28.6 kg/m2 Mandi Sandoval [employer]ER-C Work Phone: 5(431)824-764692 [place] [address] 10-06-2024 09:05-0400 Body temperature 96.5 [degF] Mandi Sandoval BUTTON BRE[employer]ER- C Work Phone: 7(362)781-505992 [place] [address] 10-06-2024 09:05-0400 Body weight 83 kg Mandi Sandoval [employer]TON BREAKER- C Work Phone: 5(708)217-270992 [place] [address] 10-06-2024 09:05-0400 Diastolic blood pressure 71 mm[Hg] Mandi Sandoval BUTTON BREAKER-C Work Phone: 2(649)560-330105 [place] [address] 10-06-2024 09:05-0400 Heart rate 69 /min Mandi Sandoval BUTTON BREAKER- C Work Phone: 4(869)161-846805 [place] [address] 10-06-2024 09:05-0400 Respiratory rate 16 /min Mandi Sandoval BUTTON BREAKER- C Work Phone: 2(921)496-410192 [place] [address] 10-06-2024 09:05-0400 SaO2% (BldA) [Mass fraction] 96 % Mandi Sandoval BUTTON BREAKER-C Work Phone: 2(530)179-482005 [place] [address] 10-06-2024 09:05-0400 Systolic blood pressure 106 mm[Hg] Mandi Sandoval BUTTON BREAKER-C Work Phone: 0(066)352-639405 [place] [address] 07-30-2024 21:18-0400 Body temperature 98.2 [degF] Mandi Sandoval [employer]ER- C Work Phone: 3(800)613-372892 [place] [address] 07-30-2024 21:18-0400 Diastolic blood pressure 66 mm[Hg] Mandi Sandoval BUTTON BREAKER-C Work Phone: 7(576)768-381905 [place] [address] 07-30-2024 21:18-0400 Heart rate 56 /min Mandi Sandoval [employer]TON [employer]ER- C Work Phone: 4(463)121-034705 [place] [address] 07-30-2024 21:18-0400 Respiratory rate 16 /min Mandi Sandoval BUTTON BREAKER- C Work Phone: 9(606)811-493805 [place] [address] 07-30-2024 21:18-0400 SaO2% (BldA) [Mass fraction] 96 % Mandi Sandoval BUTTON BREAKER-C Work Phone: 3(374)421-919105 [place] [address] 07-30-2024 21:18-0400 Systolic blood pressure 128 mm[Hg] Mandi Sandoval BUTTON BREAKER-C Work Phone: 0(299)060-460405 [place] [address] 07-30-2024 18:18-0400 Body height 170.18 cm Mandi Sandoval BUTTON BRE[employer]ER- C Work Phone: 6(284)374-230505 [place] [address] 07-30-2024 18:18-0400 Body mass index (BMI) [Ratio] 31.3 kg/m2 Mandi Sandoval BUTTON BREAKER-C Work Phone: 8(084)370-321905 [place] [address] 07-30-2024 18:18-0400 Body weight 90.71 kg Mandi Sandoval BUTTON BREAKER- C Work Phone: 0(990)436-987005 [place] [address] 07-05-2024 07:56-0400 Body mass index (BMI) [Ratio] 31.4 kg/m2 Mandi Sandoval BUT[employer] BRE[employer]ER-C Work Phone: 1(768)985-878305 [place] [address] 07-05-2024 07:56-0400 Body temperature 97.4 [degF] Mandi Sandoval BUTTON BRE[employer]ER- C Work Phone: 4(844)305-984205 [place] [address] 07-05-2024 07:56-0400 Body weight 91.17 kg Mandi Sandoval BUTTON BREAKER- C Work Phone: 6(246)553-519105 [place] [address] 07-05-2024 07:56-0400 Diastolic blood pressure 73 mm[Hg] Mandi Sandoval BUTTON BREAKER-C Work Phone: 3(812)189-915205 [place] [address] 07-05-2024 07:56-0400 Heart rate 65 /min Mandi Sandoval [employer]ER- C Work Phone: 1(438)701-420005 [place] [address] 07-05-2024 07:56-0400 Respiratory rate 18 /min Mandi Sandoval [employer]TON [employer]ER- C Work Phone: 1(016)224-101105 [place] [address] 07-05-2024 07:56-0400 SaO2% (BldA) [Mass fraction] 98 % Mnadi Sandoval BUTTON BREAKER-C Work Phone: 1(008)612-091005 [place] [address] 07-05-2024 07:56-0400 Systolic blood pressure 116 mm[Hg] Mandi Sandoval BUTTON BREAKER-C Work Phone: [facility] 06-24-2024 12:44-0400 Body height 172.7 cm Dhara Velázquezer PA-C Work Phone: [facility] 06-24-2024 12:44-0400 Body mass index (BMI) [Ratio] 30.82 kg/m2 Dhara Velázquezer PA-C Work Phone: [facility] 06-24-2024 12:44-0400 Body weight 91.95 kg Dhara Velázquezer PA-C Work Phone: [facility] 06-24-2024 12:44-0400 Diastolic blood pressure 77 mm[Hg] Dhara Velázquezer PA-C Work Phone: [facility] 06-24-2024 12:44-0400 Heart rate 63 /min Dhara Velázquezer PA-C Work Phone: [facility] 06-24-2024 12:44-0400 Systolic blood pressure 113 mm[Hg] Dhara Velázquezer PA-C Work Phone: [facility] 06-03-2024 16:48-0400 Body temperature 98.3 [degF] Mandi Sandoval BUTTON BREAKER- C Work Phone: [facility] 06-03-2024 16:48-0400 Diastolic blood pressure 78 mm[Hg] Mandi Sandoval BUTTON BREAKER-C Work Phone: [facility] 06-03-2024 16:48-0400 Heart rate 88 /min Mandi Sandoval BUTTON BREAKER- C Work Phone: [facility] 06-03-2024 16:48-0400 Respiratory rate 16 /min Mandi Sandoval BUTTON BREAKER- C Work Phone: [facility] 06-03-2024 16:48-0400 SaO2% (BldA) [Mass fraction] 97 % Mandi Sandoval BUTTON BREAKER-C Work Phone: [facility] 06-03-2024 16:48-0400 Systolic blood pressure 122 mm[Hg] Mandi Sandoval BUTTON BREAKER-C Work Phone: [facility] 06-03-2024 14:09-0400 Body height 170.18 cm Mandi Sandoval BUTTON BREAKER- C Work Phone: [facility] 06-03-2024 14:09-0400 Body mass index (BMI) [Ratio] 31.3 kg/m2 Mandi Sandoval BUTTON BREAKER-C Work Phone: [facility] 06-03-2024 14:09-0400 Body weight 90.71 kg Mandi Sandoval BUTTON BREAKER- C Work Phone: [facility] 05-11-2024 13:45-0500 Body mass index (BMI) [Ratio] 32.05 kg/m2 Dhara Velázquezer PA-C Work Phone: [facility] 05-11-2024 13:45-0500 Body weight 95.62 kg Dharadiamante Velázquezer PA-C Work Phone: [facility] 05-11-2024 13:45-0500 Diastolic blood pressure 80 mm[Hg] Dhara Queener PA-C Work Phone: [facility] 05-11-2024 13:45-0500 Heart rate 71 /min Dhara Velázquezer PA-C Work Phone: [facility] 05-11-2024 13:45-0500 Respiratory rate 18 /min Dhara Queener PA-C Work Phone: [facility] 05-11-2024 13:45-0500 SaO2% (BldA) [Mass fraction] 97 % Dharadiamante Velázquezer PA-C Work Phone: [facility] 05-11-2024 13:45-0500 Systolic blood pressure 114 mm[Hg] Dhara er PA-C Work Phone: [facility] 02-09-2024 13:00-0500 Body height 172.7 cm Nicholas Urias MD Work Phone: [facility] 02-09-2024 13:00-0500 Body mass index (BMI) [Ratio] 33.75 kg/m2 Nicholas Urias MD Work Phone: [facility] 02-09-2024 13:00-0500 Body weight 100.7 kg Nicholas Urias MD Work Phone: [facility] 02-09-2024 13:00-0500 Diastolic blood pressure 78 mm[Hg] Nicholas Urias MD Work Phone: [facility] 02-09-2024 13:00-0500 Heart rate 51 /min Nicholsa Urias MD Work Phone: [facility] 02-09-2024 13:00-0500 SaO2% (BldA) [Mass fraction] 97 % Nicholas Urias MD Work Phone: [facility] 02-09-2024 13:00-0500 Systolic blood pressure 118 mm[Hg] Nicholas Urias MD Work Phone: [facility] 02-03-2024 14:44-0500 Body height 172.7 cm Desiree Jairo PA-C Work Phone: [facility] 02-03-2024 14:44-0500 Body mass index (BMI) [Ratio] 34.21 kg/m2 Desiree Jairo PA-C Work Phone: [facility] 02-03-2024 14:44-0500 Body weight 102.06 kg Desiree Jairo PA-C Work Phone: [facility] 02-03-2024 14:44-0500 Respiratory rate 20 /min Desiree Jairo PA-C Work Phone: [facility] 01-23-2024 11:20-0500 Body height 172.7 cm Pacc 1 Work Phone: [facility] 01-23-2024 11:20-0500 Body mass index (BMI) [Ratio] 31.63 kg/m2 Pacc 1 Work Phone: [facility] 01-23-2024 11:20-0500 Body temperature 97.81 [degF] Pacc 1 Work Phone: [facility] 01-23-2024 11:20-0500 Body weight 94.35 kg Pacc 1 Work Phone: [facility] 01-23-2024 11:20-0500 Diastolic blood pressure 72 mm[Hg] Pacc 1 Work Phone: [facility] 01-23-2024 11:20-0500 Heart rate 47 /min Pacc 1 Work Phone: [facility] 01-23-2024 11:20-0500 Respiratory rate 14 /min Pacc 1 Work Phone: [facility] 01-23-2024 11:20-0500 SaO2% (BldA) [Mass fraction] 98 % Pacc 1 Work Phone: [facility] 01-23-2024 11:20-0500 Systolic blood pressure 112 mm[Hg] Pacc 1 Work Phone: [facility] 10-06-2023 10:00-0400 Body temperature 97.2 [degF] Tino Zuleta MD Work Phone: [facility] 10-06-2023 10:00-0400 Diastolic blood pressure 62 mm[Hg] Tino Zuleta MD Work Phone: [facility] 10-06-2023 10:00-0400 Heart rate 41 /min Tino Zuleta MD Work Phone: [facility] 10-06-2023 10:00-0400 Respiratory rate 9 /min Tino Zuleta MD Work Phone: [facility] 10-06-2023 10:00-0400 SaO2% (BldA) [Mass fraction] 95 % Tino Zuleta MD Work Phone: [facility] 10-06-2023 10:00-0400 Systolic blood pressure 136 mm[Hg] Tino Zuleta MD Work Phone: [facility] 10-06-2023 06:29-0400 Body height 170.2 cm Tino Zuleta MD Work Phone: [facility] 10-06-2023 06:29-0400 Body mass index (BMI) [Ratio] 33.52 kg/m2 Tino Zuleta MD Work Phone: [facility] 10-06-2023 06:29-0400 Body weight 97.07 kg Tino Zuleta MD Work Phone: [facility] 09-19-2023 13:00-0400 Body mass index (BMI) [Ratio] 32.54 kg/m2 Pacc 1 Work Phone: [facility] 09-19-2023 13:00-0400 Body temperature 97.81 [degF] Pacc 1 Work Phone: [facility] 09-19-2023 13:00-0400 Body weight 97.07 kg Pacc 1 Work Phone: [facility] 09-19-2023 13:00-0400 Diastolic blood pressure 58 mm[Hg] Pacc 1 Work Phone: [facility] 09-19-2023 13:00-0400 Heart rate 63 /min Pacc 1 Work Phone: [facility] 09-19-2023 13:00-0400 Respiratory rate 16 /min Pacc 1 Work Phone: [facility] 09-19-2023 13:00-0400 SaO2% (BldA) [Mass fraction] 97 % Pacc 1 Work Phone: [facility] 09-19-2023 13:00-0400 Systolic blood pressure 110 mm[Hg] Pacc 1 Work Phone: [facility] 02-24-2023 06:12-0500 Body height 170.18 cm [facility] Work Phone: [facility] 02-24-2023 06:12-0500 Body mass index (BMI) [Ratio] 31.7 kg/m2 [facility] Work Phone: [facility] 02-24-2023 06:12-0500 Body temperature 96.5 [degF] [facility] Work Phone: 4(119)020-304705 [place] [address] 02-24-2023 06:12-0500 Body weight 91.85 kg [facility] Work Phone: 3(240)138-111805 [place] [address] 02-24-2023 06:12-0500 Diastolic blood pressure 76 mm[Hg] [facility] Work Phone: 7(080)443-318005 [place] [address] 02-24-2023 06:12-0500 Heart rate 54 /min [facility] Work Phone: 6(822)739-640205 [place] [address] 02-24-2023 06:12-0500 Respiratory rate 18 /min [facility] Work Phone: 2(139)627-474005 [place] [address] 02-24-2023 06:12-0500 SaO2% (BldA) [Mass fraction] 98 % [facility] Work Phone: 1(477)231-650105 [place] [address] 02-24-2023 06:12-0500 Systolic blood pressure 127 mm[Hg] [facility] Work Phone: 3(646)172-471705 [place] [address] 09-25-2022 13:56-0400 Body height 170.18 cm [facility] Work Phone: 3(257)127-974405 [place] [address] 09-25-2022 13:56-0400 Body mass index (BMI) [Ratio] 31.9 kg/m2 [facility] Work Phone: 8(460)178-003705 [place] [address] 09-25-2022 13:56-0400 Body weight 92.53 kg [facility] Work Phone: 5(757)202-099305 [place] [address] 09-25-2022 13:56-0400 Diastolic blood pressure 80 mm[Hg] [facility] Work Phone: 3(819)015-971505 [place] [address] 09-25-2022 13:56-0400 Heart rate 51 /min [facility] Work Phone: 0(958)014-496405 [place] [address] 09-25-2022 13:56-0400 Respiratory rate 20 /min [facility] Work Phone: 6(899)884-863605 [place] [address] 09-25-2022 13:56-0400 SaO2% (BldA) [Mass fraction] 95 % [facility] Work Phone: 8(894)195-677305 [place] [address] 09-25-2022 13:56-0400 Systolic blood pressure 137 mm[Hg] [facility] Work Phone: [facility] 07-01-2022 09:44-0400 Body height 170.2 cm Piyush Rice MD Work Phone: [facility] 07-01-2022 09:44-0400 Body mass index (BMI) [Ratio] 33.67 kg/m2 Piyush Rice MD Work Phone: [facility] 07-01-2022 09:44-0400 Body weight 97.52 kg Piyush Rice MD Work Phone: [facility] 07-01-2022 09:44-0400 Diastolic blood pressure 73 mm[Hg] Piyush Rice MD Work Phone: [facility] 07-01-2022 09:44-0400 Heart rate 46 /min Piyush Rice MD Work Phone: [facility] 07-01-2022 09:44-0400 Systolic blood pressure 129 mm[Hg] Piyush Rice MD Work Phone: [facility] 05-22-2022 10:50-0500 Body height 172.7 cm Pst 1 [facility] 05-22-2022 10:50-0500 Body temperature 97.5 [degF] Pst 1 [facility] 05-22-2022 10:50-0500 Body weight 99.79 kg Pst 1 [facility] 05-22-2022 10:50-0500 Diastolic blood pressure 64 mm[Hg] Pst 1 [facility] 05-22-2022 10:50-0500 Heart rate 55 /min Pst 1 [facility] 05-22-2022 10:50-0500 Respiratory rate 16 /min Pst 1 [facility] 05-22-2022 10:50-0500 SaO2% (BldA) [Mass fraction] 95 % Pst 1 [facility] 05-22-2022 10:50-0500 Systolic blood pressure 124 mm[Hg] Pst 1 [facility] 05-21-2022 12:48-0500 Body height 170.2 cm Piyush Rice MD Work Phone: [facility] 05-21-2022 12:48-0500 Body mass index (BMI) [Ratio] 35.11 kg/m2 Piyush Rice MD Work Phone: [facility] 05-21-2022 12:48-0500 Body weight 101.7 kg Piyush Rice MD Work Phone: [facility] 05-21-2022 12:48-0500 Diastolic blood pressure 83 mm[Hg] Piyush Rice MD Work Phone: [facility] 05-21-2022 12:48-0500 Heart rate 53 /min Piyush Rice MD Work Phone: [facility] 05-21-2022 12:48-0500 Systolic blood pressure 146 mm[Hg] Piyush Rice MD Work Phone: [facility] 04-17-2022 10:16-0500 Body height 172.7 cm [facility] 04-17-2022 10:16-0500 Body weight 104.78 kg [facility] 04-17-2022 10:16-0500 Heart rate 61 /min [facility] 04-17-2022 10:16-0500 SaO2% (BldA) [Mass fraction] 98 % [facility] 04-06-2022 12:32-0500 Body height 170.18 cm [facility] Work Phone: [facility] 04-06-2022 12:32-0500 Body mass index (BMI) [Ratio] 36.6 kg/m2 [facility] Work Phone: [facility] 04-06-2022 12:32-0500 Body temperature 97.5 [degF] [facility] Work Phone: [facility] 04-06-2022 12:32-0500 Body weight 106.14 kg [facility] Work Phone: [facility] 04-06-2022 12:32-0500 Diastolic blood pressure 71 mm[Hg] [facility] Work Phone: [facility] 04-06-2022 12:32-0500 Heart rate 57 /min [facility] Work Phone: [facility] 04-06-2022 12:32-0500 Respiratory rate 16 /min [facility] Work Phone: [facility] 04-06-2022 12:32-0500 SaO2% (BldA) [Mass fraction] 100 % [facility] Work Phone: [facility] 04-06-2022 12:32-0500 Systolic blood pressure 141 mm[Hg] [facility] Work Phone: [facility] 04-06-2022 11:53-0500 Body temperature 97 [degF] Татьяна Denbow PA-C Work Phone: [facility] 04-06-2022 11:53-0500 Body weight 105.87 kg Татьяна Denbow PA-C Work Phone: [facility] 04-06-2022 11:53-0500 Diastolic blood pressure 80 mm[Hg] Татьяна Denbow PA-C Work Phone: [facility] 04-06-2022 11:53-0500 Heart rate 64 /min Татьяна Denbow PA-C Work Phone: [facility] 04-06-2022 11:53-0500 Respiratory rate 18 /min Татьяна Denbow PA-C Work Phone: [facility] 04-06-2022 11:53-0500 SaO2% (BldA) [Mass fraction] 98 % Татьяна Denbow PA-C Work Phone: [facility] 04-06-2022 11:53-0500 Systolic blood pressure 122 mm[Hg] Татьяна Denbow PA-C Work Phone: [facility] 03-27-2022 14:02-0500 Body mass index (BMI) [Ratio] 36.8 kg/m2 [facility] Work Phone: [facility] 03-27-2022 14:02-0500 Body weight 106.59 kg [facility] Work Phone: [facility] 03-27-2022 14:02-0500 Diastolic blood pressure 75 mm[Hg] [facility] Work Phone: 0(379)372-797692 [place] [address] 03-27-2022 14:02-0500 Heart rate 65 /min [facility] Work Phone: 5(820)105-623392 [place] [address] 03-27-2022 14:02-0500 Respiratory rate 18 /min [facility] Work Phone: 2(415)322-741792 [place] [address] 03-27-2022 14:02-0500 SaO2% (BldA) [Mass fraction] 96 % [facility] Work Phone: [facility] 03-27-2022 14:02-0500 Systolic blood pressure 114 mm[Hg] [facility] Work Phone: 2(141)239-724992 [place] [address] 03-21-2022 13:32-0500 Body height 174 cm Piyush Rice MD Work Phone: [facility] Comment on above: [facility] 03-21-2022 13:32-0500 Body mass index (BMI) [Ratio] 34.7 kg/m2 Piyush Rice MD Work Phone: [facility] 03-21-2022 13:32-0500 Body weight 105.05 kg Piyush Rice MD Work Phone: [facility] 03-21-2022 13:32-0500 Diastolic blood pressure 77 mm[Hg] Piyush Rice MD Work Phone: [facility] 03-21-2022 13:32-0500 Heart rate 61 /min Piyush Rice MD Work Phone: [facility] 03-21-2022 13:32-0500 Respiratory rate 18 /min Piyush Rice MD Work Phone: [facility] 03-21-2022 13:32-0500 Systolic blood pressure 134 mm[Hg] Piyush Rice MD Work Phone: [facility] [employer] 02-25-2022 08:09-0500 Body mass index (BMI) [Ratio] 36.8 kg/m2 [facility] Work Phone: 9(721)774-094705 [place] [address] 02-25-2022 08:09-0500 Body temperature 96.7 [degF] [facility] Work Phone: 1(976)665-474505 [place] [address] 02-25-2022 08:09-0500 Body weight 106.82 kg [facility] Work Phone: 3(486)046-724005 [place] [address] 02-25-2022 08:09-0500 Diastolic blood pressure 65 mm[Hg] [facility] Work Phone: 3(512)495-829805 [place] [address] 02-25-2022 08:09-0500 Heart rate 42 /min [facility] Work Phone: 2(926)243-219605 [place] [address] 02-25-2022 08:09-0500 Respiratory rate 18 /min [facility] Work Phone: 6(652)982-723805 [place] [address] 02-25-2022 08:09-0500 SaO2% (BldA) [Mass fraction] 99 % [facility] Work Phone: 7(724)563-660705 [place] [address] 02-25-2022 08:09-0500 Systolic blood pressure 115 mm[Hg] [facility] Work Phone: 1(322)386-367005 [place] [address] 11-27-2021 14:36-0400 Body height 170.18 cm [facility] Work Phone: 5(692)994-779105 [place] [address] Work Phone: 11-27-2021 14:36-0400 Body mass index (BMI) [Ratio] 35.2 kg/m2 [facility] Work Phone: 1(650)761-581005 [place] [address] Work Phone: 11-27-2021 14:36-0400 Body temperature 97.4 [degF] [facility] Work Phone: 9(308)916-534405 [place] [address] Work Phone: 11-27-2021 14:36-0400 Body weight 102.05 kg [facility] Work Phone: 9(809)915-068305 [place] [address] Work Phone: 11-27-2021 14:36-0400 Diastolic blood pressure 69 mm[Hg] [facility] Work Phone: [facility] Work Phone: 11-27-2021 14:36-0400 Heart rate 55 /min [facility] Work Phone: [facility] Work Phone: 11-27-2021 14:36-0400 Respiratory rate 18 /min [facility] Work Phone: [facility] Work Phone: 11-27-2021 14:36-0400 SaO2% (BldA) [Mass fraction] 98 % [facility] Work Phone: [facility] Work Phone: 11-27-2021 14:36-0400 Systolic blood pressure 168 mm[Hg] [facility] Work Phone: [facility] Work Phone: 10-18-2021 11:25-0400 Diastolic blood pressure 78 mm[Hg] Chico Franz MD Work Phone: [facility] 10-18-2021 11:25-0400 Systolic blood pressure 116 mm[Hg] Chico Franz MD Work Phone: [facility] 09-26-2021 14:01-0400 Body height 170.18 cm [facility] Work Phone: [facility] Work Phone: 09-26-2021 14:01-0400 Body mass index (BMI) [Ratio] 35.5 kg/m2 [facility] Work Phone: [facility] Work Phone: 09-26-2021 14:01-0400 Body weight 102.96 kg [facility] Work Phone: [facility] Work Phone: 09-26-2021 14:01-0400 Diastolic blood pressure 68 mm[Hg] [facility] Work Phone: [facility] Work Phone: 09-26-2021 14:01-0400 Heart rate 56 /min [facility] Work Phone: [facility] Work Phone: 09-26-2021 14:01-0400 Respiratory rate 16 /min [facility] Work Phone: [facility] Work Phone: 09-26-2021 14:01-0400 Systolic blood pressure 124 mm[Hg] [facility] Work Phone: [facility] Work Phone: 07-30-2021 10:19-0400 Body height 170.2 cm Chico Franz MD Work Phone: [facility] 07-30-2021 10:19-0400 Body weight 102.06 kg Chico Franz MD Work Phone: [facility] 04-06-2021 12:32-0500 Body temperature 97 [degF] [facility] Work Phone: [facility] Work Phone: 04-06-2021 12:32-0500 Heart rate 53 /min [facility] Work Phone: [facility] Work Phone: 04-06-2021 12:32-0500 Respiratory rate 16 /min [facility] Work Phone: [facility] Work Phone: 04-06-2021 12:32-0500 SaO2% (BldA) [Mass fraction] 98 % [facility] Work Phone: [facility] Work Phone: 03-29-2021 12:45-0500 Body height 170.18 cm [facility] Work Phone: [facility] Work Phone: 03-29-2021 12:45-0500 Body mass index (BMI) [Ratio] 35.2 kg/m2 [facility] Work Phone: [facility] Work Phone: 03-29-2021 12:45-0500 Body weight 102.05 kg [facility] Work Phone: [facility] Work Phone: 03-29-2021 12:45-0500 Diastolic blood pressure 62 mm[Hg] [facility] Work Phone: [facility] Work Phone: 03-29-2021 12:45-0500 Heart rate 52 /min [facility] Work Phone: [facility] Work Phone: 03-29-2021 12:45-0500 Respiratory rate 16 /min [facility] Work Phone: [facility] Work Phone: 03-29-2021 12:45-0500 Systolic blood pressure 106 mm[Hg] [facility] Work Phone: [facility] Work Phone: 03-15-2021 12:29-0500 Body temperature 98.1 [degF] [facility] Work Phone: [facility] Work Phone: 03-15-2021 12:29-0500 Heart rate 66 /min [facility] Work Phone: [facility] Work Phone: 03-15-2021 12:29-0500 Respiratory rate 20 /min [facility] Work Phone: [facility] Work Phone: 03-15-2021 12:29-0500 SaO2% (BldA) [Mass fraction] 98 % [facility] Work Phone: [facility] Work Phone: 03-02-2021 12:26-0500 Body temperature 96.8 [degF] [facility] Work Phone: [facility] Work Phone: 03-02-2021 12:26-0500 Heart rate 47 /min [facility] Work Phone: [facility] Work Phone: 03-02-2021 12:26-0500 Respiratory rate 16 /min [facility] Work Phone: [facility] Work Phone: 03-02-2021 12:26-0500 SaO2% (BldA) [Mass fraction] 98 % [facility] Work Phone: [facility] Work Phone: 02-27-2021 12:01-0500 Body mass index (BMI) [Ratio] 34.7 kg/m2 [facility] Work Phone: [facility] Work Phone: 02-27-2021 12:01-0500 Body temperature 96.6 [degF] [facility] Work Phone: [facility] Work Phone: 02-27-2021 12:01-0500 Body weight 100.69 kg [facility] Work Phone: [facility] Work Phone: 02-27-2021 12:01-0500 Diastolic blood pressure 60 mm[Hg] [facility] Work Phone: [facility] Work Phone: 02-27-2021 12:01-0500 Heart rate 86 /min [facility] Work Phone: [facility] Work Phone: 02-27-2021 12:01-0500 Respiratory rate 16 /min [facility] Work Phone: [facility] Work Phone: 02-27-2021 12:01-0500 SaO2% (BldA) [Mass fraction] 96 % [facility] Work Phone: [facility] Work Phone: 02-27-2021 12:01-0500 Systolic blood pressure 123 mm[Hg] [facility] Work Phone: [facility] Work Phone: 02-21-2021 13:04-0500 Body temperature 97.3 [degF] [facility] Work Phone: [facility] Work Phone: 02-21-2021 13:04-0500 Heart rate 47 /min [facility] Work Phone: [facility] Work Phone: 02-21-2021 13:04-0500 Respiratory rate 18 /min [facility] Work Phone: [facility] Work Phone: 02-21-2021 13:04-0500 SaO2% (BldA) [Mass fraction] 99 % [facility] Work Phone: [facility] Work Phone: 02-16-2021 18:44-0500 Heart rate 50 /min [facility] Work Phone: [facility] Work Phone: 02-16-2021 18:44-0500 Respiratory rate 18 /min [facility] Work Phone: [facility] Work Phone: 02-16-2021 18:44-0500 SaO2% (BldA) [Mass fraction] 97 % [facility] Work Phone: [facility] Work Phone: 02-16-2021 17:56-0500 Diastolic blood pressure 52 mm[Hg] [facility] Work Phone: [facility] Work Phone: 02-16-2021 17:56-0500 Systolic blood pressure 158 mm[Hg] [facility] Work Phone: [facility] Work Phone: 02-16-2021 13:37-0500 Body mass index (BMI) [Ratio] 33.4 kg/m2 [facility] Work Phone: [facility] Work Phone: 02-16-2021 13:37-0500 Body temperature 98 [degF] [facility] Work Phone: [facility] Work Phone: 02-16-2021 13:37-0500 Body weight 99.79 kg [facility] Work Phone: [facility] Work Phone: 02-16-2021 13:00-0500 Body temperature 99.3 [degF] [facility] Work Phone: [facility] Work Phone: 02-16-2021 13:00-0500 Heart rate 80 /min [facility] Work Phone: [facility] Work Phone: 02-16-2021 13:00-0500 SaO2% (BldA) [Mass fraction] 99 % [facility] Work Phone: [facility] Work Phone: 01-01-2017 14:23-0400 BMI (Body Mass Index) 56.6 kg/m2 [facility] Work Phone: 01-01-2017 14:23-0400 BP Diastolic 78 mm[Hg] [facility] Work Phone: 01-01-2017 14:23-0400 BP Systolic 133 mm[Hg] [facility] Work Phone: 01-01-2017 14:23-0400 Height 170.18 cm [facility] Work Phone: 01-01-2017 14:23-0400 Pulse (Heart Rate) 80 /min [facility] Work Phone: 01-01-2017 14:23-0400 Respiratory Rate 22 /min [facility] Work Phone: 01-01-2017 14:23-0400 Weight 163.93 kg [facility] Work Phone: 10-31-2016 09:03-0400 Body Temperature 97.5 [degF] [facility] Work Phone: 10-31-2016 09:03-0400 BP Diastolic 72 mm[Hg] [facility] Work Phone: 10-31-2016 09:03-0400 BP Systolic 134 mm[Hg] [facility] Work Phone: 08-06-2016 13:00-0400 BSA (Body Surface Area) 2.58 m2 [facility] Work Phone: 08-06-2016 13:00-0400 Height 170.18 cm [facility] Work Phone: 08-06-2016 13:00-0400 Weight 161.02 kg [facility] Work Phone: Encounters Encounter Date Encounter Type Care Provider Facility Start: 12-08-2024 ambulatory Myrna Chen [employer] Fac ility:[facility] Start: 11-25-2024 End: 11-25-2024 Patient encounter procedure Myrna Chen BUTTON BREAKER-C -[facility] Work Phone: Start: 11-25-2024 End: 11-25-[address] Hiram Burns DO Work Phone: [facility] Pulmonary Medicine Start: 11-03-2024 End: 11-03-2024 Patient encounter procedure Kelley Craig APRN.IN HOUSE COUNSEL Work Phone: Neurology Comment on above: Intractable chronic migraine without aura and without status migrainosus (Primary Dx) Start: 11-03-2024 End: 11-03-2024 ambulatory KELLEY CRAIG Facility:[facility] Start: 10-25-2024 End: 10-27-2024 Refill Dhara Peck PA-C Work Phone: Neurology Comment on above: Refill Request Start: 10-18-2024 End: 10-18-[address] Kevon Muñoz MD -[facility] Work Phone: Start: 10-18-2024 End: 10-18-2024 ambulatory Mandi Sandoval BUTTON BREAKER-C Work Phone: -[facility] Start: 10-18-2024 ambulatory Samantha Dawson Facility :[facility] Start: 10-12-2024 End: 10-13-2024 Refill Dhara Peck PA-C Work Phone: Neurology Comment on above: Refill Request Start: 10-06-2024 End: 10-06-2024 Patient encounter procedure Myrna Chen BUTTON BREAKER-C -[facility] Work Phone: Start: 10-06-2024 End: 10-06-2024 ambulatory Mandi Sandoval BUTTON BREAKER-C Work Phone: -[facility] Start: 09-09-2024 End: 09-09-2024 Refill Dhara Peck PA-C Work Phone: Neurology Comment on above: Refill Request Start: 08-02-2024 ambulatory Samantha Khoury Facility :[facility] Start: 07-30-2024 End: 07-30-2024 Emergency department patient visit Mandi Sandoval BUTTON BREAKER-C Work Phone: -Emergency Department Work Phone: Start: 07-30-2024 End: 07-30-2024 Telephone encounter No Pcp (Historical) [facility] [place] Comment on above: Patient Update Start: 07-06-2024 End: 07-06-2024 ambulatory Mandi Sandoval BUTTON BREAKER-C Work Phone: [facility] Work Phone: Start: 07-06-2024 End: 07-06-2024 Patient encounter procedure Samantha Khoury BUTTON BREAKER-C -Laboratory, [facility] Start: 07-05-2024 End: 07-05-2024 Patient encounter procedure Myrna Chen BUTTON BREAKER-C -[facility] Work Phone: Start: 07-05-2024 End: 07-06-2024 ambulatory Samanthajada Dawsonhadley Facility:[facility] Start: 06-24-2024 End: 07-26-2024 Telephone encounter Dhara MIRAMONTES-C Work Phone: Neurology Comment on above: Appointment Start: 06-24-2024 End: 06-24-2024 ambulatory Mandi Sandoval BUTTON BREAKER-C Work Phone: [facility] Work Phone: Start: 06-24-2024 End: 06-24-2024 Patient encounter procedure Dhara MIRAMONTES-C Work Phone: Neurology Comment on above: Intractable chronic migraine without aura and without status migrainosus (Primary Dx) Start: 06-24-2024 End: 06-24-2024 ambulatory Hodan MIRAMONTES Facility:[facility] Start: 06-18-2024 End: 06-18-2024 Refill Dhara MIRAMONTES-C Work Phone: Neurology Comment on above: Refill Request Start: 06-03-2024 End: 06-03-2024 Emergency department patient visit Mandi Sandoval NP-C Work Phone: -Emergency Department Work Phone: Start: 05-11-2024 End: 05-11-2024 Patient encounter procedure Dhara MIRAMONTES-C Work Phone: Neurology Comment on above: Intractable chronic migraine without aura and without status migrainosus (Primary Dx) Start: 05-11-2024 End: 05-11-2024 ambulatory DHARA PECK Facility:[facility] Start: 03-23-2024 End: 03-23-2024 Patient encounter procedure [facility] Mandi Sandoval NP-C -Laboratory, [facility] Start: 03-23-2024 End: 03-23-2024 ambulatory Mandi Sandoval [facility] Facility:[facility] Start: 03-05-2024 End: 03-05-2024 ambulatory TINO ZULETA Facility:[facility] Start: 03-05-2024 End: 03-05-2024 Patient encounter procedure Tino Zuleta MD Work Phone: Orthopedics Comment on above: Adhesive capsulitis of left shoulder (Primary Dx) Start: 02-19-2024 End: 02-19-2024 ambulatory Mandi Sandoval BUTTON BREAKER-C Work Phone: [facility] Work Phone: Start: 02-19-2024 End: 02-19-2024 Discharged Recurring Desiree Gill PA -Physical Therapy Work Phone: Start: 02-19-2024 Registered Recurring Desiree Gill PA -Physical Therapy Work Phone: Start: 02-09-2024 End: 02-09-2024 Bamboo flowscaroline Urias MD Work Phone: [facility] Start: 02-09-2024 End: 02-09-2024 Bamboo flowscaroline Urias MD Work Phone: [facility] Start: 02-09-2024 End: 02-09-2024 Office outpatient visit 25 minutes Nicholas Urias MD Work Phone: [facility] Comment on above: Chronic migraine wit hout aura, intractable, without status migrainosus (CMS/HCC) (Primary Dx); MARKY (obstructive sleep apnea); Diabetic polyneuropathy associated with type 2 diabetes mellitus (CMS/HCC) Start: 02-09-2024 End: 02-09-2024 ambulatory NICHOLAS URIAS Not Available Start: 02-05-2024 End: 02-05-2024 Telephone encounter Tino Zuleta MD Work Phone: Orthopaedics Comment on above: Post Op; Appointment Start: 02-03-2024 End: 02-03-2024 Patient encounter procedure Desiree Gill PA-C Work Phone: [facility] Comment on above: Adhesive capsulitis of left shoulder (Primary Dx); S/P shoulder surgery Start: 02-03-2024 End: 02-03-2024 ambulatory TINO ZULETA Facility:[facility] Start: 01-28-2024 End: 01-28-2024 Telephone encounter Tino Zuleta MD Work Phone: [facility] Comment on above: Patient Update (Miss ed PT/pt ill) Start: 01-26-2024 End: 01-26-2024 ambulatory TINO ZULETA Facility:[facility] Start: 01-23-2024 Encounter for other preprocedural examination NEGIN KAUFMAN [facility] Start: 01-23-2024 End: 01-23-2024 Admission to establishment Pac [place] [facility] Work Phone: Pre Anesthesia Start: 01-23-2024 End: 01-23-2024 ambulatory NEGIN KAUFMAN Facility:[facility] Start: 01-23-2024 End: 01-23-2024 Anesthesia consultation Pac [place] 1 Work Phone: Pre Anesthesia Comment on above: Pre-operative examin ation (Primary Dx); Controlled type 2 diabetes mellitus with diabetic polyneuropathy, without long-term current use of insulin (HCC); Intractable migraine with status migrainosus, unspecified migraine type; Subdural hemorrhage (HCC); Coronary artery disease involving false pass coronary artery of false pass heart without angina pectoris; Essential hypertension; Mixed hyperlipidemia; Obstructive sleep apnea; Gastroesophageal reflux disease without esophagitis; Acquired hypothyroidism; Deep vein thrombosis (DVT) of upper extremity, unspecified chronicity, unspecified laterality, unspecified vein (HCC); Anxiety and depression; History of gastric bypass; Hx of sinus bradycardia; Class 1 obesity with serious comorbidity and body mass index (BMI) of 31.0 to 31.9 in adult, unspecified obesity type Start: 01-23-2024 End: 01-23-2024 Preprocedural examination done Pac Nguyễn 1 Work Phone: [facility] Work Phone: Start: 01-20-2024 End: 01-20-2024 Telephone encounter Tino Zuleta MD Work Phone: Orthopaedics Comment on above: Patient Question Start: 01-19-2024 End: 01-19-2024 Bamboo flowsheet Dony Hoffman BUTTON BREAKER Work Phone: [facility] Start: 01-19-2024 End: 01-19-2024 Bamboo flowsheet Dony Hoffman BUTTON BREAKER Work Phone: [facility] Start: 01-19-2024 End: 01-19-2024 Patient encounter procedure Dony Hoffman BUTTON BREAKER Work Phone: [facility] Comment on above: Chronic migraine wit hout aura, intractable, without status migrainosus (CMS/HCC) (Primary Dx) Start: 01-19-2024 End: 01-19-2024 ambulatory DONY HOFFMAN Not Available Start: 01-07-2024 End: 01-07-2024 Orders Only Tino Zuleta MD Work Phone: Orthopaedics Comment on above: Adhesive capsulitis of left shoulder (Primary Dx) Start: 01-02-2024 End: 01-02-2024 ambulatory TINO ZULETA Facility:[facility] Start: 12-26-2023 End: 12-26-2023 ambulatory [facility] Facility:[facility] Start: 12-23-2023 End: 12-23-2023 ambulatory [facility] Facility:[facility] Start: 11-14-2023 End: 11-14-2023 Patient encounter procedure Tino Zuleta MD Work Phone: Orthopedics Comment on above: Adhesive capsulitis of right shoulder (Primary Dx); S/P shoulder surgery Start: 10-17-2023 End: 10-17-2023 Patient encounter procedure Tino Zuleta MD Work Phone: Orthopedics Comment on above: Adhesive capsulitis of right shoulder (Primary Dx); S/P shoulder surgery Start: 10-06-2023 ambulatory TINO Bah acility:[facility] Start: 10-06-2023 End: 10-06-2023 Subsequent hospital visit by physician Tino Zuleta MD Work Phone: [facility] Surgery Comment on above: Adhesive capsulitis of right shoulder [M75.01] Start: 09-24-2023 Telephone encounter Negin Kaufman APRN.CNP Work Phone: Pre Anesthesia Start: 09-22-2023 End: 09-22-2023 ambulatory DONY S WEYGANDT Not Available Start: 09-19-2023 End: 09-19-2023 Admission to establishment Pac Nguyễn 1 Work Phone: Pre Anesthesia Start: 09-19-2023 End: 09-19-2023 Anesthesia consultation Pac Nguyễn 1 Work Phone: Pre Anesthesia Comment on above: Pre-operative examin ation (Primary Dx); Obstructive sleep apnea; Essential hypertension; Coronary artery disease involving false pass coronary artery of false pass heart without angina pectoris; Mixed hyperlipidemia; Subdural hemorrhage (HCC); Intractable migraine with status migrainosus, unspecified migraine type; Controlled type 2 diabetes mellitus with diabetic polyneuropathy, without long-term current use of insulin (HCC); Gastroesophageal reflux disease without esophagitis; Acquired hypothyroidism; Deep vein thrombosis (DVT) of upper extremity, unspecified chronicity, unspecified laterality, unspecified vein (HCC); Anxiety and depression; History of gastric bypass; Hx of sinus bradycardia; Class 1 obesity with serious comorbidity and body mass index (BMI) of 32.0 to 32.9 in adult, unspecified obesity type Start: 09-19-2023 End: 09-19-2023 Preprocedural examination done Pac [place] [facility] Work Phone: [facility] Work Phone: Start: 08-18-2023 Orders Only Tino Zuleta MD Work Phone: Orthopaedics Comment on above: Adhesive capsulitis of right shoulder (Primary Dx) Start: 08-01-2023 End: 08-01-2023 Patient encounter procedure Tino Zuleta MD Work Phone: Orthopedics Comment on above: Adhesive capsulitis of right shoulder (Primary Dx) Start: 07-04-2023 End: 07-04-2023 ambulatory DONY S WEYGANDT Not Available Start: 04-17-2023 Telephone encounter Dony Hoffman BUTTON BREAKER Work Phone: [facility] Start: 04-17-2023 End: 04-17-2023 ambulatory [facility] Work Phone: [facility] Work Phone: Start: 04-17-2023 End: 04-17-2023 Patient encounter procedure [facility] Work Phone: [facility]-Laboratory Work Phone: Start: 04-07-2023 End: 04-07-2023 ambulatory DONY CARDOZAT Not Available Start: 03-03-2023 End: 03-03-2023 ambulatory DONY CARDOZAT Not Available Start: 02-24-2023 End: 02-24-2023 Patient encounter procedure [facility] Work Phone: [facility] [place] Work Phone: Start: 10-24-2022 End: 10-24-2022 ambulatory [facility] Work Phone: [facility] Work Phone: Start: 10-24-2022 End: 10-24-2022 Discharged Recurring [facility] Work Phone: [facility]-Physical Therapy Work Phone: Start: 10-15-2022 Telephone encounter Tino Zuleta MD Work Phone: [facility] Comment on above: Appointment Refill Request Start: 10-11-2022 End: 10-11-2022 ambulatory [facility] Work Phone: [facility] Work Phone: Start: 10-11-2022 End: 10-11-2022 Patient encounter procedure [facility] Work Phone: [facility]-Laboratory Work Phone: Start: 10-10-2022 Registered Recurring [facility] Work Phone: [facility]-Physical Therapy Work Phone: Start: 09-25-2022 End: 09-25-2022 Patient encounter procedure [facility] Work Phone: [facility] Work Phone: Start: 08-20-2022 Refill Tino Zuleta MD Work Phone: [facility] Start: 07-08-2022 Refill Tino Zuleta MD Work Phone: [facility] Orthopedic Comment on above: Refill Request Start: 07-01-2022 End: 07-01-2022 [facility] Start: 07-01-2022 End: 07-01-2022 Office outpatient visit 25 minutes Piyush Rice MD Work Phone: [facility] [place] Comment on above: Intestinal malabsorp tion, unspecified type (Primary Dx); GERD without esophagitis; BMI 33.0-33.9,adult; Obesity (BMI 30-39.9) Start: 06-26-2022 Refill Tino uZleta MD Work Phone: [facility] Comment on above: Refill Request Start: 06-14-2022 End: 06-14-2022 Patient encounter procedure Tino Zuleta MD Work Phone: Orthopedics Comment on above: S/P shoulder surgery (Primary Dx); Adhesive capsulitis of right shoulder Start: 06-04-2022 Telephone encounter Tino Zuleta MD Work Phone: [facility] [place] Comment on above: Patient Question Refill Request Prior Authorization Start: 05-22-2022 End: 05-22-2022 Admission to [facility] Start: 05-22-2022 End: 05-22-2022 ambulatory P[address] 1 Pre Surgical Testing Comment on above: Controlled type 2 di abetes mellitus with diabetic polyneuropathy, without long-term current use of insulin (HCC) (Primary Dx); Subdural hemorrhage (HCC); Essential hypertension; Mixed hyperlipidemia; Coronary artery disease involving false pass coronary artery of false pass heart without angina pectoris; Obstructive sleep apnea; Acquired hypothyroidism; Deep vein thrombosis (DVT) of upper extremity, unspecified chronicity, unspecified laterality, unspecified vein (HCC); Hx of sinus bradycardia; Preop examination [Z01.818 (ICD-10-CM)]; Impingement syndrome of right shoulder [M75.41 (ICD-10-CM)]; Adhesive capsulitis of right shoulder [M75.01 (ICD-10-CM)]; Chronic right shoulder pain [M25.511, G89.29 (ICD-10-CM)] Start: 05-22-2022 End: 05-22-2022 Preprocedural examination done Pst 1 Pre Surgical Testing Start: 05-21-2022 End: 05-21-2022 ambulatory PIYUSH RICE [facility] Start: 05-21-2022 End: 05-21-2022 Office outpatient visit 25 minutes Piyush Rice MD Work Phone: [facility] [place] Comment on above: High cholesterol (Pr imary Dx); GERD without esophagitis; Intestinal malabsorption, unspecified type Start: 04-29-2022 End: 04-29-2022 Patient encounter procedure Carla Montanez PA-C Work Phone: Orthopaedics Comment on above: Left carpal tunnel s yndrome (Primary Dx) Start: 04-19-2022 Telephone encounter Chico herrera MD Work Phone: Orthopaedics Comment on above: Refill Request Start: 04-17-2022 End: 04-17-2022 ambulatory Gt Shaver APRN.CNP Work Phone: Pre Anesthesia Comment on above: pre op Pre-op evaluation (P rimary Dx); Intractable migraine with status migrainosus, unspecified migraine type; Subdural hemorrhage (HCC); Essential hypertension; Anxiety and depression; Mixed hyperlipidemia; Obstructive sleep apnea; Gastroesophageal reflux disease without esophagitis; Acquired hypothyroidism; Controlled type 2 diabetes mellitus with diabetic polyneuropathy, without long-term current use of insulin (HCC); Hx of sinus bradycardia; Coronary artery disease involving false pass coronary artery of false pass heart without angina pectoris; Deep vein thrombosis (DVT) of upper extremity, unspecified chronicity, unspecified laterality, unspecified vein (HCC) Start: 04-17-2022 E-mail encounter tomas velázquez caregiver Gt Shaver SHERRY Work Phone: [facility] Start: 04-17-2022 End: 04-17-2022 [facility] Start: 04-17-2022 End: 04-17-2022 Preprocedural examination done [facility] Pre Anesthesia Start: 04-15-2022 Telephone encounter Chico herrera MD Work Phone: Orthopaedics Comment on above: Schedule Surgery Start: 04-15-2022 End: 04-15-2022 Patient encounter procedure Chico Franz MD Work Phone: Orthopaedics Comment on above: Carpal tunnel syndro me of left wrist (Primary Dx) Start: 04-12-2022 Telephone encounter Tino Zuleta MD Work Phone: Orthopaedics Comment on above: Orders Start: 04-11-2022 End: 04-11-2022 ambulatory [facility] Work Phone: [facility] Work Phone: Start: 04-11-2022 End: 04-11-2022 Patient encounter procedure [facility] Work Phone: [facility]-Laboratory Start: 04-06-2022 End: 04-06-2022 Emergency department patient visit [facility] Work Phone: [facility]-Emergency Department Start: 04-06-2022 End: 04-06-2022 Patient encounter procedure Татьяна Burns PA-C Work Phone: [facility] Comment on above: Rib pain on right si de (Primary Dx); Status post fall Start: 04-05-2022 End: 04-05-2022 Patient encounter procedure Tino Zuleta MD Work Phone: Orthopedics Comment on above: Shoulder joint stiff ness, bilateral (Primary Dx); Left shoulder pain, unspecified chronicity; Right shoulder pain, unspecified chronicity Start: 04-05-2022 End: 04-05-2022 Subsequent hospital visit by physician [facility] Yamini Hunt Work Phone: Radiology Comment on above: Chronic right should er pain [M25.511, G89.29] Start: 03-29-2022 Orders Only Tino Zuleta MD Work Phone: Orthopedics Comment on above: Chronic right should er pain (Primary Dx); Chronic left shoulder pain Start: 03-27-2022 End: 03-27-2022 Patient encounter procedure [facility] Work Phone: [facility] Start: 03-21-2022 End: 03-21-2022 Office outpatient visit 25 minutes Piyush Rice MD Work Phone: [facility] [place] Comment on above: Essential hypertensi on (Primary Dx); Obesity (BMI 30-39.9); BMI 34.0-34.9,adult Start: 03-08-2022 Telephone encounter Chico herrera MD Work Phone: Orthopaedics Comment on above: Patient Update Start: 03-06-2022 End: 03-06-2022 ambulatory [facility] Work Phone: [facility] Work Phone: Start: 03-06-2022 End: 03-06-2022 Discharged Recurring [facility] Work Phone: [facility]-Physical Therapy Start: 03-06-2022 Registered Recurring [facility] Work Phone: [facility]-Physical Therapy Start: 02-25-2022 End: 02-25-2022 Patient encounter procedure [facility] Work Phone: [facility]-Pulmonary Medicine [facility] Start: 01-17-2022 End: 01-17-2022 Patient encounter procedure Chico Franz MD Work Phone: Orthopaedics Comment on above: Carpal tunnel syndro me of right wrist (Primary Dx); Adhesive capsulitis of right shoulder; Weakness of both hands; Adhesive capsulitis of left shoulder Start: 12-26-2021 ambulatory Keli Clarencet [facility] Start: 12-25-2021 ambulatory Keli Haihart [facility] Start: 12-25-2021 End: 12-25-2021 Subsequent hospital visit by physician Piyush Rice MD Work Phone: [facility] Start: 12-24-2021 Telephone encounter Chico herrera MD Work Phone: Orthopaedics Comment on above: Patient Question Start: 2021 End: 2021 Patient encounter procedure Chico Franz MD Work Phone: Orthopaedics Comment on above: Ischial bursitis of right side (Primary Dx) Start: 11-28-2021 Orders Only Chico Franz MD Work Phone: Orthopaedics Comment on above: Pain in right hip (P rimary Dx) Start: 11-27-2021 End: 11-27-2021 Emergency department patient visit [facility] Work Phone: [facility]-Emergency Department Start: 10-30-2021 Non-patient / Non-visit [facility] Work Phone: [facility] Start: 10-30-2021 End: 10-30-2021 Patient encounter procedure [facility] Work Phone: [facility]-Cardiovascul ar Services Start: 10-18-2021 Telephone encounter Chico herrera MD Work Phone: Orthopaedics Comment on above: Schedule Surgery Start: 10-18-2021 End: 10-18-2021 Patient encounter procedure Chico Franz MD Work Phone: Orthopaedics Comment on above: Chronic right should er pain (Primary Dx); Adhesive capsulitis of right shoulder; Carpal tunnel syndrome of right wrist Start: 10-15-2021 End: 10-15-2021 ambulatory Emg 850) Neurology Start: 10-15-2021 End: 10-15-2021 Patient encounter procedure Emg 1 Neur Tim (Max Weight: 850) TIM KIRBY Start: 10-04-2021 End: 10-04-2021 Patient encounter procedure Chico Franz MD Work Phone: Orthopaedics Comment on above: Weakness of both card ds (Primary Dx); Chronic right shoulder pain; Chronic left shoulder pain; Adhesive capsulitis of right shoulder; Adhesive capsulitis of left shoulder; Tendinitis of right shoulder; Nontraumatic incomplete tear of left rotator cuff Start: 09-26-2021 End: 09-26-2021 Patient encounter procedure [facility] Work Phone: [facility] Start: 09-24-2021 ambulatory Spyraa [facility] Start: 09-24-2021 End: 09-24-2021 Subsequent hospital visit by physician Piyush Rice MD Work Phone: [facility] Start: 08-23-2021 End: 08-23-2021 Patient encounter procedure Chico Franz MD Work Phone: Orthopaedics Comment on above: Impingement syndrome of right shoulder (Primary Dx); Nontraumatic incomplete tear of left rotator cuff Start: 08-16-2021 End: 08-16-2021 Subsequent hospital visit by physician [facility] (I-Stat/1.5t) Work Phone: Radiology Comment on above: Chronic pain of both shoulders [M25.511, G89.29, M25.512] Start: 07-30-2021 End: 07-30-2021 Patient encounter procedure Chico Franz MD Work Phone: Orthopaedics Comment on above: Adhesive capsulitis of right shoulder (Primary Dx); Adhesive capsulitis of left shoulder; Chronic pain of both shoulders Start: 06-26-2021 Refill Mary atkins APRN.CNP Work Phone: Endocrinology Comment on above: Refill Request Start: 06-18-2021 ambulatory Keli Swihart [facility] Start: 06-18-2021 End: 06-18-2021 Subsequent hospital visit by physician Piyush Rice MD Work Phone: [facility] [employer] [facility] Start: 06-13-2021 End: 06-13-2021 Patient encounter procedure [facility] Work Phone: [facility]-Radiology, [facility] Start: 06-12-2021 ambulatory [facility] RICE [facility] Start: 06-08-2021 End: 06-08-2021 Discharged Recurring [facility] Work Phone: [facility]-Physical Therapy Start: 04-25-2021 End: 04-25-2021 Patient encounter procedure [facility] Work Phone: [facility]-MRI - [facility] Start: 04-24-2021 ambulatory PIYUSH RICE [facility] Start: 04-11-2021 End: 04-11-2021 Patient encounter procedure [facility] Work Phone: [facility]-Laboratory Start: 04-06-2021 End: 04-06-2021 Patient encounter procedure [facility] Work Phone: [facility] Start: 04-04-2021 Non-patient / Non-visit [facility] Work Phone: [facility] Start: 04-04-2021 End: 04-04-2021 Patient encounter procedure [facility] Work Phone: [facility]-Cardiovascul ar Services Start: 03-29-2021 End: 03-29-2021 Patient encounter procedure [facility] Work Phone: [facility] Start: 03-29-2021 End: 03-29-2021 Patient encounter procedure [facility] Work Phone: [facility] Start: 03-15-2021 End: 03-15-2021 Patient encounter [facility] Start: 03-02-2021 End: 03-02-2021 Patient encounter procedure [facility] Work Phone: [facility] Start: 02-27-2021 End: 02-27-2021 Patient encounter procedure [facility] Work Phone: [facility] Start: 02-21-2021 End: 02-21-2021 Patient encounter procedure [facility] Work Phone: [facility] Start: 02-16-2021 Non-patient / Non-visit [facility] Work Phone: [facility] Start: 02-16-2021 End: 02-16-2021 Emergency department patient visit [facility] Work Phone: [facility] Start: 02-16-2021 End: 02-16-2021 Patient encounter procedure [facility] Work Phone: [facility] Start: 02-22-2020 End: 02-22-2020 Subsequent hospital visit by physician Piyush Rice Work Phone: [facility] Start: 08-02-2019 End: 08-02-2019 Subsequent hospital visit by physician Piyush Rice Work Phone: [facility] Start: 07-19-2019 End: 07-19-2019 Subsequent hospital visit by physician Gardenia Kessler Work Phone: [facility] Comment on above: Intestinal malabsorp tion, unspecified type; Vitamin D intoxication Start: 04-20-2019 End: 04-20-2019 Subsequent hospital visit by physician Gardenia Kessler Work Phone: [facility] Comment on above: BiPAP (biphasic posi tive airway pressure) dependence; Intestinal malabsorption, unspecified type; Deficiency of multiple nutrient elements; Essential hypertension; Class 2 obesity Start: 01-28-2019 End: 01-28-2019 Subsequent hospital visit by physician Tashi Cullen Work Phone: [facility] Start: 01-14-2019 End: 01-14-2019 Subsequent hospital visit by physician Gardenia Kessler Work Phone: [facility] Comment on above: Gastroesophageal ref lux disease with esophagitis; Daytime sleepiness; Intestinal malabsorption, unspecified type; Essential hypertension; High cholesterol; Type 2 diabetes mellitus with complication (HCC) Start: 08-07-2017 Patient encounter status [facility] Work Phone: [facility] Procedures Date Procedure Procedure Detail Performing Clinician Start: 07-30-2024 Computed tomography of thoracic spine without contrast Mandi Sandoval [employer]TON BREAKER-C Work Phone: Start: 07-30-2024 CT cervical spine wi thout contrast Mandi Sandoval [employer]-C Work Phone: Start: 07-30-2024 CT of chest, abdomen and pelvis without contrast Mandi Sandoval [employer]TON [employer]ER-C Work Phone: Start: 07-30-2024 CT of head without contrast Mandi Sandoval [employer]TON BRE[employer]ER-C Work Phone: Start: 07-06-2024 RADHA measurement Mandi Sandoval BUTTON BREAKER-C Work Phone: Comment on above: Performed at: [address] Director: Ezequiel Pickard PhD, Phone: [phone] Start: 06-24-2024 RADHA measurement Mandi Sandoval [employer]TON BRE[employer]ER-C Work Phone: Comment on above: Negative <1:80 Borde rline 1:80 Positive >1:80 Start: 06-24-2024 Antibody titer measurement Mandi Sandoval [employer]TON BRE[employer]ER-C Work Phone: Comment on above: Test not performed Start: 06-24-2024 Hepatitis A virus antibody, IgM type Mandi Sandoval [employer]TON BREAKER-C Work Phone: Comment on above: A negative anti-HAV IgM result suggests no recent orcurrent HAV infection. Start: 06-24-2024 Hepatitis B core ant ibody measurement, IgM type Mandi Sandoval [employer]TON BREAKER-C Work Phone: Start: 06-24-2024 Hepatitis C antibody measurement Mandi Sandoval [employer]TON BREAKER-C Work Phone: Start: 06-03-2024 X-ray of chest, PA a nd lateral views Mandi Sandoval [employer]TON BREAKER-C Work Phone: Start: 06-03-2024 SARS-CoV-2, Influenz a & RSV (PCR) Mandi Sandoval [employer]ER-C Work Phone: Start: 01-23-2024 Ecg routine ecg w/le ast 12 lds i&r only [facility] Provider Start: 10-17-2023 Arthrocentesis aspir &/inj major jt/bursa w/o us Tino Zuleta MD Work Phone: Start: 10-06-2023 Gluc bld gluc mntr d ev cleared fda spec home use Tino Zuleta MD Work Phone: Start: 10-06-2023 Gluc bld gluc mntr d ev cleared fda spec home use Tino Zuleta MD Work Phone: Start: 09-19-2023 Ecg routine ecg w/le ast 12 lds i&r only [facility] Provider Start: 04-06-2022 X-ray of chest posteroanterior view [facility] Work Phone: Start: 04-06-2022 CT of head without contrast [facility] Work Phone: Start: 04-05-2022 Radex shoulder compl ete minimum 2 views Desiree MIRAMONTES-C Work Phone: Start: 04-05-2022 Radex shoulder compl ete minimum 2 views Desireeanaly MIRAMONTES-C Work Phone: Start: 10-15-2021 Nerve conduction asa dies 5-6 studies Chico Franz MD Work Phone: Start: 08-23-2021 Arthrocentesis aspir &/inj major jt/bursa w/o us Chico Franz MD Work Phone: Start: 08-23-2021 Arthrocentesis aspir &/inj major jt/bursa w/o us Chico Franz MD Work Phone: Start: 08-16-2021 Mri any jt upper extremity w/o contrast matrl Chico Franz MD Work Phone: Start: 06-13-2021 Plain X-ray of shoulder [facility] Work Phone: Start: 04-25-2021 MRI of brain without contrast [facility] Work Phone: Start: 04-24-2021 Lipid 1996 panel - S veronique or Plasma Piyush Rice MD Work Phone: Start: 04-20-2019 25 hydroxy includes fractions if performed Gardenia R Bridle Work Phone: Start: 04-20-2019 Assay of ferritin Gardenia R Bridle Work Phone: Start: 04-20-2019 Assay of folic acid serum Gardenia R Bridle Work Phone: Start: 04-20-2019 Assay of iron Gardenia R B ridle Work Phone: Start: 04-20-2019 Assay of magnesium Leis a R Bridle Work Phone: Start: 04-20-2019 Blood count complete automated Gardenia R Bridle Work Phone: Start: 04-20-2019 Comprehensive metabo lic panel Gardenia R Bridle Work Phone: Start: 04-20-2019 Cyanocobalamin vitam in b-12 Gardenia R Bridle Work Phone: Start: 04-20-2019 Lipid panel Gardenia R Br idle Work Phone: Start: 01-14-2019 25 hydroxy includes fractions if performed Gardenia R Bridle Work Phone: Start: 01-14-2019 Assay of ferritin Gardenia R Bridle Work Phone: Start: 01-14-2019 Assay of folic acid serum Gardenia R Bridle Work Phone: Start: 01-14-2019 Assay of iron Gardenia R B ridle Work Phone: Start: 01-14-2019 Assay of magnesium Leis a R Bridle Work Phone: Start: 01-14-2019 Blood count complete automated Gardenia R Bridle Work Phone: Start: 01-14-2019 Comprehensive metabo lic panel Gardenia R Bridle Work Phone: Start: 01-14-2019 Cyanocobalamin vitam in b-12 Gardenia R Bridle Work Phone: Start: 01-14-2019 Lipid panel Gardenia R Br idle Work Phone: Start: 11-25-2017 Colonoscopy Mary Kit upiec NEURO PSYCH SALES SPECIALIST.IN HOUSE COUNSEL Work Phone: Start: 07-29-2016 End: 07-31-2016 *BMP Ezra A Braxton ELECTROSTATIC PAINTER-C Start: 07-15-2016 End: 07-15-2016 DJN Ezra A Braxton ELECTROSTATIC PAINTER-C Start: 07-15-2016 End: 07-15-2016 Ecg routine ecg w/least 12 lds w/i&r Ezra A Braxton ELECTROSTATIC PAINTER-C Start: 07-15-2016 End: 01-17-2017 Echocardiography Ezra A Braxton ELECTROSTATIC PAINTER-C Start: 07-15-2016 End: 07-15-2016 Follow Up Appt 6 months Ezra Dixon Braxton ELECTROSTATIC PAINTER -C Start: 07-15-2016 End: 07-15-2016 Follow Up Appt Other Ezra A Braxton ELECTROSTATIC PAINTER-C Start: 07-15-2016 End: 07-16-2016 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 Ezra A Braxton ELECTROSTATIC PAINTER-C Start: 08-29-2015 End: 08-29-2015 LONNYN Silvio Batista MD Work Phone: Start: 08-29-2015 End: 08-29-2015 Follow Up Appt 6 months Silvio Batista MD Work Phone: Start: 08-29-2015 End: 08-30-2015 Patient referral to dietitian Silvio Batista MD Work Phone: Start: 08-17-2014 End: 08-09-2015 WhyWeight Silvio Batista MD Work Phone: Start: 08-16-2014 End: 08-16-2014 LONNYN Silvio Batista MD Work Phone: Start: 08-16-2014 End: 08-16-2014 Follow Up Appt 1 year Berenice Gavin Work Phone: Start: 07-08-2014 End: 07-15-2014 Nuclear stress test -Lexiscan Silvio Batista MD Work Phone: Start: 06-27-2014 End: 06-27-2014 DJN Silvio Batista MD Work Phone: Start: 06-27-2014 End: 06-28-2014 Documentation of current medications Silvio Batista MD Work Phone: Start: 06-27-2014 End: 06-27-2014 Follow Up Appt 1 month Silvio Batista MD Work Phone: Start: 06-27-2014 End: 06-28-2014 Pedal pulse taking Silvio Batista MD Work Phone: History of bilateral mastectomy History of bilateral mastectomy [facility] Work Phone: History of cholecystectomy Hx of cholecystectomy [facility] Work Phone: Plan of Treatment Date Care Activity Detail Author Start: 08-02-2028 DTaP/Tdap/Td vaccine (2 - Td or Tdap) DTaP/Tdap/Td vaccine (2 - Td or Tdap) [facility] Start: 08-02-2028 DTaP/Tdap/Td vaccine (2 - Td) DTaP/Tdap/Td vaccine (2 - Td) [facility] Work Phone: Start: 08-02-2028 DTaP/Tdap/Td Vaccines (2 - Td or Tdap) DTaP/Tdap/Td Vaccines (2 - Td or Tdap) [facility] Start: 08-02-2028 Urine microalbumin profile DTaP,Tdap,Td Vaccine (2 - Td or Tdap) [facility] Start: 11-26-2027 Screening for malignant neoplasm of colon [facility] Start: 06-24-2025 BP Controlled (<130/80) BP Controlled (<130/80) [facility] Start: 01-26-2025 End: 01-26-2025 Patient encounter procedure 01/26/2025 1:30 PM EST Office Visit Neurology [address] [address] Kelley Craig, ARIEL.IN HOUSE COUNSEL [address] [place] [address] Return in about 12 weeks (around 01/26/2025). Neurology Comment on above: Return in about 12 weeks (around 025). Start: 01-22-2025 BP Controlled (<130/80) BP Controlled (<130/80) [facility] in Start: 11-15-2024 Influenza vaccination [facility] Start: 11-03-2024 End: 11-03-2024 Patient encounter procedure 11/03/2024 1:30 PM EDT Office Visit Neurology [address] [id number] Kelley Craig, ARIEL.IN HOUSE COUNSEL [address] [place] [address] Botox 200 units every 3 months Neurology Comment on above: Botox 200 units every 3 months Start: 09-18-2024 BP Controlled (<130/80) BP Controlled (<130/80) [facility] Start: 07-30-2024 [facility] Start: 07-22-2024 Hemoglobin A1c measurement HbA1C [facility] yadira Start: 06-24-2024 End: 06-24-2024 Patient encounter procedure 06/24/2024 1:00 PM EDT Office Visit Neurology [address] [place] [address] Dhara Peck PA-C [address] [place] [address] botox inj - no auth required Neurology Comment on above: botox inj - no auth required Start: 06-03-2024 [facility] Start: 03-17-2024 Medicare Advantage Annual Wellness Visit Medicare Advantage Annual Wellness Visit [facility] Start: 03-05-2024 End: 03-05-2024 Patient encounter procedure 03/05/2024 2:45 PM EST Office Visit Orthopedics [address] [phone] Tino Zuleta MD [address] [place], [place] [id number] S/P Left arthroscopic capsular release 01-26-2024 Orthopedics Comment on above: S/P Left arthroscopic capsular release 1 03-27-2023 Start: 02-14-2024 Hemoglobin A1c measurement HbA1C [facility] Start: 02-09-2024 End: 02-09-2024 Patient encounter procedure [facility] Comment on above: Arrived Start: 02-03-2024 End: 02-03-2024 Patient encounter procedure 02/03/2024 2:45 PM EST Office Visit [facility] [address] [place], [place] [phone] Tino Zuleta MD [address] [place] [address] S/P Left arthroscopic capsular release 01-26-2024 [facility] Comment on above: S/P Left arthroscopic capsular release 1 03-27-2023 Start: 01-26-2024 End: 01-26-2024 Admission to same day surgery center 01/26/2024 1:15 PM EST - 01/26/2024 2:59 PM EST Surgery [facility] Surgery [address] [place] [address] Tino Zuleta MD [address] [place] [address] ARTHROSCOPY SHOULDER W/ LYSIS ADHESIONS [facility] Surgery Comment on above: ARTHROSCOPY SHOULDER W/ LYSIS ADHESIONS Start: 01-26-2024 End: 01-26-2024 Arthroscopy shoulder ahesiolysis w/wo manipj ARTHROSCOPY SHOULDER W/ LYSIS ADHESIONS Adhesive capsulitis of left shoulder 01/26/2024 1:15 PM EST ME OR Start: 01-26-2024 Subsequent hospital visit by physician 01/26/2024 1:15 PM EST Hospital Encounter [facility] Surgery [address] [place] [address] Tino Zuleta MD [address] [place] [address] Adhesive capsulitis of left shoulder [M75.02] [facility] Comment on above: Adhesive capsulitis of left shoulder [M7 5.02] Start: 01-26-2024 End: 01-26-2024 Admission to same day surgery center 01/26/2024 7:30 AM EST - 01/26/2024 8:58 AM EST Surgery [facility] Surgery [address] [place] [address] Tino Zuleta MD [address] [place], [place] [id number] ARTHROSCOPY SHOULDER W/ LYSIS ADHESIONS [facility] Comment on above: ARTHROSCOPY SHOULDER W/ LYSIS ADHESIONS Start: 01-26-2024 End: 01-26-2024 Arthroscopy shoulder ahesiolysis w/wo manipj ARTHROSCOPY SHOULDER W/ LYSIS ADHESIONS Adhesive capsulitis of left shoulder 01/26/2024 7:30 AM EST ME OR Start: 01-26-2024 Subsequent hospital visit by physician 01/26/2024 7:30 AM EST Hospital Encounter [facility] Surgery [address] [place] [address] Tino Zuleta MD [address] [place] [address] Adhesive capsulitis of left shoulder [M75.02] [facility] Comment on above: Adhesive capsulitis of left shoulder [M7 5.02] Start: 01-23-2024 End: 04-23-2024 Hemoglobin A1c in Blood [facility] Work Phone: Comment on above: Expected: 01/23/2024, Expires: Start: 01-23-2024 End: 01-23-2024 Anesthesia consultation 01/23/2024 11:20 AM EST PAT Pre Anesthesia [address] [place], [place] [phone] 1, [facility] [address] [place] [address] declined VV - ARTHROSCOPY SHOULDER W/ LYSIS ADHESIONS [6384] - Shoulder - Left Pre Anesthesia Comment on above: declined VV - ARTHROSCOPY SHOULDER W/ LY SIS ADHESIONS [6384] - Shoulder - Left Start: 01-19-2024 End: 01-19-2024 Patient encounter procedure 01/19/2024 1:00 PM EST Procedure Visit [facility] [address] [place] [phone] Dony Hoffman NP [address] [place] [address] Arrived [facility] Comment on above: Arrived Start: 12-19-2023 End: 12-19-2023 Patient encounter procedure 12/19/2023 10:45 AM EDT Office Visit Orthopedics [address] [place] [phone] Tino Zuleta MD [address] [place], [place] [id number] 6 week follow up - R- Capsular release w/VAHE 10-06-2023 Orthopedics Comment on above: 6 week follow up - R- Capsular release w /VAHE 10-06-2023 Start: 11-16-2023 Covid-19 Vaccine ( season) Covid-19 Vaccine ( season) [facility] Start: 11-16-2023 Covid-19 Vaccine ( season) Covid-19 Vaccine ( season) [facility] Start: 11-16-2023 Influenza vaccination [facility] Start: 11-14-2023 End: 11-14-2023 Patient encounter procedure 11/14/2023 10:15 AM EDT Office Visit Orthopedics [address] [place] [phone] Tino Zuleta MD [address] [place], [place] [id number] S/P R- Capsular release w/VAHE 10-06-2023 Orthopedics Comment on above: S/P R- Capsular release w/VAHE 10-06-2023 Start: 10-17-2023 End: 10-17-2023 Patient encounter procedure Orthopedics Comment on above: S/P Capsular release 10-06-2023 S/P R- Capsular rele ase w/VAHE 10-06-2023 Start: 10-06-2023 End: 10-06-2023 Admission to same day surgery center 10/06/2023 7:30 AM EDT - 10/06/2023 9:05 AM EDT Surgery [facility] Surgery [address] [place] [address] Tino Zuleta MD [address] [place] [address] ARTHROSCOPY SHOULDER W/ LYSIS ADHESIONS WITH MANIPULATION [facility] Comment on above: ARTHROSCOPY SHOULDER W/ LYSIS ADHESIONS WITH MANIPULATION Start: 10-06-2023 End: 10-06-2023 Arthroscopy shoulder ahesiolysis w/wo manipj ARTHROSCOPY SHOULDER W/ LYSIS ADHESIONS Adhesive capsulitis of right shoulder 10/06/2023 7:30 AM EDT ME OR Start: 10-06-2023 Subsequent hospital visit by physician 10/06/2023 7:30 AM EDT Hospital Encounter [facility] Surgery [address] [place] [address] Tino Zuleta MD [address] [place] [address] Adhesive capsulitis of right shoulder [M75.01] [facility] Comment on above: Adhesive capsulitis of right shoulder [M 75.01] Start: 07-07-2023 End: 07-07-2023 Patient encounter procedure 07/07/2023 1:00 PM EDT Procedure Visit [facility] [address] [place] [phone] Dony Hoffman NP [address] [place] [address] [facility] Start: 05-23-2023 BP CONTROLLED (<130/80) BP CONTROLLED (<130/80) [facility] Start: 11-15-2022 Covid-19 Vaccine () Covid-19 Vaccine () [facility] Start: 11-15-2022 Influenza vaccination [facility] Start: 10-31-2022 BP CONTROLLED (<130/80) BP CONTROLLED (<130/80) [facility] Start: 10-18-2022 BP CONTROLLED (<130/80) BP CONTROLLED (<130/80) [facility] Start: 09-12-2022 End: 09-12-2022 Patient encounter procedure 09/12/2022 Office Visit Weight Management Piyush Rice MD [address] [place] [address] [facility] [facility] Start: 07-25-2022 End: 07-25-2022 Patient encounter procedure 07/25/2022 Office Visit Weight Management Piyush Rice MD [address] [place] [address] [facility] [facility] Start: 05-21-2022 End: 05-21-2022 Patient encounter procedure 05/21/2022 Office Visit Weight Management Piyush Rice MD [address] [place] [address] [facility] Start: 04-24-2022 Creatinine measurement Creatinine monitoring [facility] Start: 04-24-2022 Hepatitis B surface antibody level LDL CHOLESTEROL [facility] Start: 04-24-2022 Lipid panel [facility] Start: 04-24-2022 Potassium monitoring Potassium monitoring [facility] Start: 03-21-2022 End: 03-21-2022 Patient encounter procedure 03/21/2022 Office Visit Piyush Landry MD [address] [place] [address] [facility] Start: 12-26-2021 End: 12-26-2021 Patient encounter procedure 12/26/2021 Office Visit Piyush Landry MD [address] [place] [address] [facility] Start: 12-25-2021 End: 12-25-2021 Patient encounter procedure 12/25/2021 Office Visit Piyush Landry MD [address] [place] [address] [facility] Start: 11-27-2021 Electrocardiographic procedure [facility] Work Phone: Start: 11-27-2021 [facility] Work Phone: Start: 11-15-2021 Influenza vaccination [facility] Start: 10-15-2021 Influenza vaccination Flu vaccine (#1) [facility] Start: 09-24-2021 End: 09-24-2021 Patient encounter procedure 09/24/2021 Office Visit Piyush Landry MD [address] [place] [address] [facility] Start: 09-07-2021 3 comp foot exam completed DIABETIC FOOT EXAM [facility] Start: 09-07-2021 Diabetic foot examination Diabetic Foot Exam [facility] Start: 03-09-2021 Hemoglobin A1c measurement HbA1C [facility] Start: 03-09-2021 Hemoglobin A1c/Hemoglobin.total in Blood HBA1C [facility] Start: 02-20-2021 End: 02-20-2021 Office Visit 02/20/2021 Office Visit Piyush Landry MD [address] [place], [place] [phone] [facility] Start: 2020 Hepatitis B Vaccines (1 of 3 - Risk 3-dose series) Hepatitis B Vaccines (1 of 3 - Risk 3-dose series) [facility] Start: 2020 RSV Vaccine (1 - 1-dose 60+ series) RSV Vaccine (1 - 1-dose 60+ series) [facility] Start: 2020 RSV Vaccine (1 - Risk 60-74 years 1-dose series) RSV Vaccine (1 - Risk 60-74 years 1-dose series) [facility] Start: 08-25-2020 Hepatitis B screening URINE ALBUMIN:CREATININE RATIO [facility] Start: 07-28-2020 COVID-19 Vaccine (2 - Booster for Cherri series) COVID-19 Vaccine (2 - Booster for Cherri series) [facility] Start: 04-20-2020 Creatinine measurement Creatinine monitoring [place] Start: 04-20-2020 Lipid panel Lipid screen [place], [place] Start: 04-20-2020 Potassium monitoring Potassium monitoring [place], [place] Start: 03-25-2020 Hepatitis B surface antibody level LDL CHOLESTEROL [facility] Start: 01-15-2020 Creatinine monitoring Creatinine monitoring [place], [place] Start: 01-15-2020 Lipid screen Lipid screen [place], [place] Start: 01-15-2020 Potassium monitoring Potassium monitoring [place] Start: 11-16-2019 Influenza vaccination [place] Start: 01-28-2019 End: 01-28-2019 Office Visit 01/28/2019 Office Visit Bariatrics Tashi Cullen MD [address] [place] [address], [address] [place] [address] [phone] [facility] Start: 01-08-2019 A1C test (Diabetic or Prediabetic) A1C test (Diabetic or Prediabetic) [place], [place] Start: 01-08-2019 HbA1c (Bld) [Mass fraction] A1C test (Diabetic or Prediabetic) [place] Start: 11-25-2018 Colonoscopy COLONOSCOPY [facility] Start: 11-25-2018 COLORECTAL CANCER SCREENING COLORECTAL CANCER SCREENING [facility] Start: 11-15-2018 Influenza vaccination Flu vaccine (#1) [place], [place] Start: 04-10-2018 Hemoglobin A1c measurement A1C test (Diabetic or Prediabetic) [facility] Start: 02-03-2017 End: 02-03-2017 Appointment Appointment [facility] Work Phone: Start: 01-27-2017 End: 01-27-2017 Appointment Appointment [facility] Work Phone: Start: 09-03-2016 End: 09-08-2016 *CMP Complete Metabolic Panel *CMP Complete Metabolic Panel [facility] Work Phone: Start: 09-03-2016 End: 09-08-2016 *Microalbumin, Creatine Ratio, rand urine *Microalbumin, Creatine Ratio, rand urine [facility] Work Phone: Start: 09-03-2016 End: 09-08-2016 Hemoglobin A1c/Hemoglobin.total mass fraction (Bld) *HgA1C [facility] Work Phone: Start: 08-06-2016 End: 08-12-2016 *CMP Complete Metabolic Panel *CMP Complete Metabolic Panel [facility] Work Phone: Start: 08-06-2016 End: 08-12-2016 *Microalbumin, Creatine Ratio, rand urine *Microalbumin, Creatine Ratio, rand urine [facility] Work Phone: Start: 08-06-2016 End: 08-12-2016 Hemoglobin A1c/Hemoglobin.total mass fraction (Bld) *HgA1C [facility] Work Phone: Start: 08-06-2016 End: 08-12-2016 Lipid panel [AGGREGATE] *Lipid Profile [facility] Work Phone: Start: 07-29-2016 End: 07-31-2016 *BMP *BMP [facility] Work Phone: Start: 07-15-2016 End: 07-15-2016 DJN DJN [facility] Work Phone: Start: 07-15-2016 End: 07-15-2016 Ecg routine ecg w/least 12 lds w/i&r EKG (In office) [facility] Work Phone: Start: 07-15-2016 End: 07-15-2016 Echocardiography Echocardiogram (complete) [facility] Work Phone: Start: 07-15-2016 End: 07-15-2016 Endocrinology Referral Endocrinology Referral [facility] Work Phone: Start: 07-15-2016 End: 07-15-2016 Follow Up Appt 6 months Follow Up Appt 6 months [facility] Work Phone: Start: 07-15-2016 End: 07-15-2016 Follow Up Appt Other Follow Up Appt Other [facility] Work Phone: Start: 12-18-2015 PROSTATE CANCER SCREENING DISCUSSION PROSTATE CANCER SCREENING DISCUSSION [facility] Start: 12-18-2015 Prostate specific antigen measurement Prostate Cancer Screening Discussion [facility] Start: 08-29-2015 End: 08-29-2015 Trailer Rental Clerk Trailer Rental Clerk [facility], [address], [address] [facility] Work Phone: Start: 08-29-2015 End: 08-29-2015 DEMAR DEMAR [facility] Work Phone: Start: 08-29-2015 End: 08-29-2015 Follow Up Appt 6 months Follow Up Appt 6 months [facility] Work Phone: Start: 10-31-2014 Prostate specific antigen measurement Prostate Cancer Screening Discussion [facility] Start: 08-17-2014 End: 08-17-2014 WhyWeight WhyWeight [facility], [address] [place], [address] [facility] Work Phone: Start: 08-16-2014 End: 08-16-2014 DEMAR DEMAR [facility] Work Phone: Start: 08-16-2014 End: 08-16-2014 Follow Up Appt 1 year Follow Up Appt 1 year [facility] Work Phone: Start: 07-08-2014 End: 07-08-2014 Nuclear stress test -Lexiscan Nuclear stress test -Lexiscan [facility] Work Phone: Start: 06-27-2014 End: 06-27-2014 DEMAR MUKHERJEEN [facility] Work Phone: Start: 06-27-2014 End: 06-27-2014 Follow Up Appt 1 month Follow Up Appt 1 month [facility] Work Phone: Start: 2010 Colon cancer screen colonoscopy Colon cancer screen [place] Start: 2010 Screening for malignant neoplasm of colon Colon cancer screen colonoscopy [place], [place] Start: 2010 Shingles Vaccine (1 of 2) Shingles Vaccine (1 of 2) [facility] Start: 2010 SHINGRIX VACCINE (1 of 2) SHINGRIX VACCINE (1 of 2) [facility] Start: 2010 Zoster Vaccines (1 of 2) Zoster Vaccines (1 of 2) [facility] Start: 06-14-2008 Urine microalbumin profile DTAP,TDAP,TD (1 - Tdap) [facility] Start: 2005 COLOGUARD (FIT-DNA) COLOGUARD (FIT-DNA) [facility] Start: 2005 Colonoscopy COLONOSCOPY [facility] Start: 2005 COLORECTAL CANCER SCREENING COLORECTAL CANCER SCREENING [facility] Start: [address] COLONOGRAPHY [facility] Start: 2005 FECAL OCCULT BLOOD FECAL OCCULT BLOOD [facility] Start: 2005 Screening for malignant neoplasm of colon [facility] Start: 2005 SIGMOIDOSCOPY SIGMOIDOSCOPY [facility] Start: 2000 Prostate specific antigen measurement Prostate Specific Antigen (PSA) Screening or Monitoring [facility] Start: 12-18-1979 DTaP/Tdap/Td vaccine (1 - Tdap) DTaP/Tdap/Td vaccine (1 - Tdap) [place] Start: 12-18-1979 Hepatitis B Vaccine (1 of 3 - Risk 3-dose series) Hepatitis B Vaccine (1 of 3 - Risk 3-dose series) [place] Start: 12-18-1979 Pneumococcal Vaccine: 50+ (1 of 2 - PCV) Pneumococcal Vaccine: 50+ (1 of 2 - PCV) [facility] Start: 12-18-1979 Urine screening for protein Diabetes: Urine Protein Screening [facility] Start: 1978 ANNUAL PCP TEAM CHRONIC DISEASE VISIT ANNUAL PCP TEAM CHRONIC DISEASE VISIT [facility] Start: 1978 BP CONTROLLED (<130/80) BP CONTROLLED (<130/80) [facility] Start: 1978 Diabetic microalbuminuria test Diabetic microalbuminuria test [place] Start: 1978 HEPATITIS C SCREENING HEPATITIS C SCREENING [facility] Start: 1978 Hepatitis C screening [facility] Start: 1978 HIV SCREENING HIV SCREENING [facility] Start: 1978 HIV screening HIV Screening [facility] Start: 1976 ONE PNEUMOVAX PRIOR TO AGE 65 ONE PNEUMOVAX PRIOR TO AGE 65 [facility] Start: 12-18-1975 HIV screen HIV screen [place] Start: 12-18-1975 HIV screening HIV screen [facility] Start: 1972 Adult depression screening assessment DEPRESSION SCREENING [facility] Start: 1972 Depression Screen Depression Screen [facility] Start: 12-18-1971 DTaP/Tdap/Td vaccine (1 - Tdap) DTaP/Tdap/Td vaccine (1 - Tdap) [place] Start: 1970 [object Object] Diabetic foot exam [place] Start: 1970 Diabetic foot examination [facility] Start: 1970 Diabetic retinal exam Diabetic retinal exam [place], [place] Start: 1970 Glaucoma screening [facility] Start: 1970 Hepatitis C antibody, confirmatory test DILATED RETINAL EXAM [facility] Start: 1970 Preventive dental service Diabetes: Dental Exam [facility] Start: 1966 PNEUMOCOCCAL (1 - PCV) PNEUMOCOCCAL (1 - PCV) [facility] Start: 1966 Pneumococcal 0-64 years Vaccine (1 of 1 - PPSV23) Pneumococcal 0-64 years Vaccine (1 of 1 - PPSV23) [place] Start: 1966 Pneumococcal vaccination Pneumococcal Vaccine (1 of 2 - PCV) [facility] Start: 1961 Hepatitis A Vaccines (1 of 2 - Risk 2-dose series) Hepatitis A Vaccines (1 of 2 - Risk 2-dose series) [facility] Start: 1961 MMR Vaccines (1 of 1 - Standard series) MMR Vaccines (1 of 1 - Standard series) [facility] Start: 1960 Hemoglobin A1c measurement Diabetes: Hemoglobin A1C [facility] Start: 1960 Hepatitis C screen Hepatitis C screen [place], [place] Start: 1960 Hepatitis C screening Hepatitis C screen [facility] Start: 1960 HIV screening HIV Screening [facility] Start: 1960 Medicare Annual Wellness (AWV) Medicare Annual Wellness (AWV) [facility] Start: 1960 Screening for malignant neoplasm of colon [facility] Start: 1960 Thyroid stimulating hormone measurement TSH Level [facility] End: 09-18-2024 ECG COMPLETE ECG COMPLETE ECG Routine Pre-operative examination 1 Occurrences starting 09/19/2023 until 09/18/2024 [facility] Work Phone: Comment on above: 1 Occurrences starting 09/19/2023 until 09/18/2024 ECG COMPLETE ECG COMPLETE ECG 09/19/2023 2:11 PM EDT [facility] End: 01-22-2025 ECG COMPLETE ECG COMPLETE ECG Routine Pre-operative examination 1 Occurrences starting 01/23/2024 until 01/22/2025 [facility] Comment on above: 1 Occurrences starting 01/23/2024 until 01/22/2025 ECG COMPLETE ECG COMPLETE ECG 01/23/2024 1:30 PM EST [facility] EMG(NEURO/NI) EMG(NEURO/NI) EM G Routine Weakness of both hands Ordered: 10/04/2021 [facility] Work Phone: Comment on above: Ordered: 10/04/2021 Mri any jt upper ext remity w/o contrast matrl [facility] Work Phone: Comment on above: Ordered: 07/30/2021 Patient Education [facility] Work Phone: Patient referral [facility] Work Phone: Polysomnography [facility] End: 01-14-2019 Vitamin B1, Whole Blood Vitamin B1, Whole Blood Lab Routine Gastroesophageal reflux disease with esophagitis Daytime sleepiness Intestinal malabsorption, unspecified type Essential hypertension High cholesterol Type 2 diabetes mellitus with complication (HCC) 1 Occurrences starting 01/14/2019 until 01/14/2019 Evette [facility] JOANNA GOODEN Comment on above: 1 Occurrences starting 01/14/2019 until 01/14/2019 Vitamin B1, Whole Blood Vitamin B1, Whole Blood Lab Routine Gastroesophageal reflux disease with esophagitis Daytime sleepiness Intestinal malabsorption, unspecified type Essential hypertension High cholesterol Type 2 diabetes mellitus with complication (HCC) 01/14/2019 11:14 AM EDT JOANNA Menjivar End: 07-19-2019 Vitamin D 25 Hydroxy Vitamin D 25 Hydroxy Lab Routine Intestinal malabsorption, unspecified type Vitamin D intoxication 1 Occurrences starting 07/19/2019 until 07/19/2019 [place] Comment on above: 1 Occurrences starting 07/19/2019 until 07/19/2019 Vitamin D 25 Hydroxy Vitamin D 2 5 Hydroxy Lab Routine Intestinal malabsorption, unspecified type Vitamin D intoxication 07/19/2019 10:33 AM EDT [place], JOANNA End: 12-28-2022 XR HIP GENERAL 3V PELV/AP/LAT RIGHT XR HIP GENERAL 3V PELV/AP/LAT RIGHT Radiology Routine Pain in right hip 1 Occurrences starting 11/28/2021 until 12/28/2022 [facility] Work Phone: Comment on above: 1 Occurrences starting 11/28/2021 until 12/28/2022 XR RIBS/CHEST 3V AP RIB/OBLS/CXR RIGHT XR RIBS/CHEST 3V AP RIB/OBLS/CXR RIGHT Radiology STAT Rib pain on right side Status post fall Ordered: 04/06/2022 [facility] Work Phone: Comment on above: Ordered: 04/06/2022 XR SHOULDER GENERAL 3V OR MORE AP/TRUE AP/OTHER LEFT XR SHOULDER GENERAL 3V OR MORE AP/TRUE AP/OTHER LEFT Radiology Routine Chronic left shoulder pain Ordered: 03/29/2022 [facility] Work Phone: Comment on above: Ordered: 03/29/2022 XR SHOULDER GENERAL 3V OR MORE AP/TRUE AP/OTHER RIGHT XR SHOULDER GENERAL 3V OR MORE AP/TRUE AP/OTHER RIGHT Radiology Routine Chronic right shoulder pain Ordered: 03/29/2022 [facility] Work Phone: Comment on above: Ordered: 03/29/2022 End: 01-14-2019 Zinc Zinc Lab Routine Gastroesophageal reflux disease with esophagitis Daytime sleepiness Intestinal malabsorption, unspecified type Essential hypertension High cholesterol Type 2 diabetes mellitus with complication (HCC) 1 Occurrences starting 01/14/2019 until 01/14/2019 [facility] Comment on above: 1 Occurrences starting 01/14/2019 until 01/14/[address] [facility] [place] [place] End: 04-20-2019 Zinc Zinc Lab Routine BiPAP (biphasic positive airway pressure) dependence Intestinal malabsorption, unspecified type Deficiency of multiple nutrient elements Essential hypertension Class 2 obesity 1 Occurrences starting 04/20/2019 until 04/20/2019 [facility] Work Phone: Comment on above: 1 Occurrences starting 04/20/2019 until 04/20/2019 [facility] Immunizations Immunization Date Immunization Notes Care Provider [facility] 02-21-2022 influenza virus vaccine, unspecified formulation 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 06-02-2020 Cherri SARS-CoV-2 Vaccination Piyush Rice MD Work Phone: [facility] 05-24-2020 Covid ([employer]) [facility] Work Phone: [facility] 03-08-2019 Flucelvax Quad [id number] (PF) (flu vac qs 2019(4 yr up)CD(PF)) 60 mcg (15 mcg x [facility] Work Phone: [facility] Work Phone: 08-02-2018 tetanus toxoid, redu marcus diphtheria toxoid, and acellular pertussis vaccine, adsorbed [facility] Work Phone: [facility] 06-13-2008 tetanus and diphther ia toxoids, adsorbed, preservative free, for adult use (2 Lf of tetanus toxoid and 2 Lf of diphtheria toxoid) Mary Garcia APRN.IN HOUSE COUNSEL Work Phone: [facility] Work Phone: Payers Date Payer Category Payer Self-pay [id number] 2023 Medicare (Managed Care) [id number]. [id number] 2023 Medicare [id number] 2022 Medicare [id number]. [id number] 2022 Private Health Insurance [id number] 2018 Medicaid [employer] [id number] 2018-Present [phone] [address] [place] [address] Medicaid [id number] 2018 Medicaid [id number]. [id number] 2017 Unknown [employer] [facility] MEDICAID xxxxxxxxxxx 2017-Present [phone] CLAIMS DEPARTMENT [address] [place] [address] xxxxxxxxxxx [id number] 2016 Unknown [id number] 1.2.840.130823.1.13.239.2. [id number] 2016 Unknown [id number] 1960 Unknown [id number] 2.16.840.1.935294.3.579.2. 668 1960 Unknown [id number] 2.16.840.1.876773.3.579.2. 668 1960 Unknown [id number] 2.16.840.1.454323.3.579.2. 668 1960 Unknown [id number] 2.16.840.1.703121.3.579.2. 668 1960 Unknown [id number] 2.16.840.1.793413.3.579.2. 668 1960 Unknown [id number] 2.16.840.1.702919.3.579.2. 668 1960 Unknown [id number] 2.16.840.1.568587.3.579.2. 1259 1960 Unknown [id number] 2.16.840.1.982407.3.579.2. 1259 1960 Unknown [id number] 2.16.840.1.310616.3.579.2. 1259 1960 Unknown [id number] 2.16.840.1.544681.3.579.2. 1259 1960 Unknown [id number] 2.16.840.1.333230.3.579.2. 1259 1960 Unknown [id number] 2.16.840.1.668083.3.579.2. 1259 Unknown Unknown [id number] Unknown [id number] 2.16.840.1.338889.3.579.2. 462 Unknown [id number] 2.16.840.1.719039.3.579.2. 462 Unknown [id number] 2.16.840.1.284315.3.579.2. 462 Unknown [id number] 2.16.840.1.686736.3.579.2. 462 Unknown [id number] 2.16.840.1.416786.3.579.2. 462 Unknown [id number] 2.16.840.1.604743.3.579.2. 462 Unknown [id number] 2.16.840.1.673330.3.579.2. 462 Unknown [id number] 2.16.840.1.299080.3.579.2. 462 Unknown [id number] 2.16.840.1.166174.3.579.2. 462 Unknown [id number] 2.16.840.1.331167.3.579.2. 462 Unknown [id number] 2.16.840.1.240562.3.579.2. 462 Unknown [id number] 2.16.840.1.100882.3.579.2. 462 Unknown [id number] 2.16.840.1.845304.3.579.2. 462 Unknown [id number] 2.16.840.1.040558.3.579.2. 462 Unknown [id number] 2.16.840.1.231892.3.579.2. 462 Social History Date Type Detail Facility Start: 07-28-2018 End: 07-30-2024 Tobacco smoking status NHIS Never smoker [place] Start: 07-28-2018 End: 08-02-2022 Alcohol intake No [facility] Start: 1960 Sex Assigned At Not on file [place] Start: 01-30-2019 End: 09-09-2024 Alcohol intake Current non-drinker of alcohol (finding) [place] Start: 02-22-2020 End: 10-08-2022 Tobacco use and exposure Never used [place] Start: 04-06-2021 End: 02-24-2023 Tobacco smoking status DCIS Unknown if ever smoked [facility] Start: 08-11-2018 None [facility] Start: 08-11-2018 Spouse/ Significant Other [facility] Start: 07-20-2020 Non-smoker [facility] Start: 1960 Sex Assigned At Male [facility] Start: 07-20-2021 End: 07-01-2022 Exposure to SARS-CoV-2 (event) Not sure [facility] Work Phone: Start: 07-01-2022 End: 08-02-2022 History of Social function [facility] Start: 02-16-2012 National Score (1-100), lower number is lower risk 48 [facility] Start: 10-09-2021 Gender identity Identifies as male gender (finding) [facility] Start: 10-09-2021 Sexual orientation Heterosexual (finding) [facility] Start: 10-09-2022 End: 02-09-2024 Alcohol intake Lifetime non-drinker (finding) [facility] Start: 10-08-2022 Alcohol Comment Caffeine: none [facility] Start: 06-03-2024 End: 07-12-2024 Sex Male (finding) [facility] Medical Equipment Procedure Code Equipment Code Equipment Origin al Text Equipment Identifier Dates Prophylactic mastectomy Plant polysaccharide haemostatic agent, bioabsorbable [id number] FDA Start: 01-24-2021 Panniculectomy JOHNNA 3GRM HEMO STAT ABS FDA Start: 07-25-2020 Panniculectomy JOHNNA 3GRM HEMO STAT ABS FDA Start: 07-25-2020 Panniculectomy JOHNNA 3GRM HEMO STAT ABS FDA Start: 07-25-2020 Panniculectomy JOHNNA 3GRM HEMO STAT ABS FDA Start: 07-25-2020 Panniculectomy JOHNNA 3GRM HEMO STAT ABS FDA Start: 07-25-2020 Panniculectomy JOHNNA 3GRM HEMO STAT ABS FDA Start: 07-25-2020 Panniculectomy JOHNNA 3GRM HEMO STAT ABS FDA Start: 07-25-2020 Panniculectomy JOHNNA 3GRM HEMO STAT ABS FDA Start: 07-25-2020 Panniculectomy JOHNNA 3GRM HEMO STAT ABS FDA Start: 07-25-2020 Panniculectomy JOHNNA 3GRM HEMO STAT ABS FDA Start: 07-25-2020 Panniculectomy JOHNNA 3GRM HEMO STAT ABS FDA Start: 07-25-2020 Panniculectomy JOHNNA 3GRM HEMO STAT ABS FDA Start: 07-25-2020 Panniculectomy JOHNNA 3GRM HEMO STAT ABS FDA Start: 07-25-2020 Panniculectomy JOHNNA 3GRM HEMO STAT ABS FDA Start: 07-25-2020 Panniculectomy JOHNNA 3GRM HEMO STAT ABS FDA Start: 07-25-2020 Panniculectomy JOHNNA 3GRM HEMO STAT ABS FDA Start: 07-25-2020 Panniculectomy JOHNNA 3GRM HEMO STAT ABS FDA Start: 07-25-2020 Panniculectomy JOHNNA 3GRM HEMO STAT ABS FDA Start: 07-25-2020 Panniculectomy JOHNNA 3GRM HEMO STAT ABS FDA Start: 07-25-2020 Panniculectomy JOHNNA 3GRM HEMO STAT ABS FDA Start: 07-25-2020 Panniculectomy JOHNNA 3GRM HEMO STAT ABS FDA Start: 07-25-2020 Panniculectomy JOHNNA 3GRM HEMO STAT ABS FDA Start: 07-25-2020 Panniculectomy JOHNNA 3GRM HEMO STAT ABS FDA Start: 07-25-2020 Panniculectomy JOHNNA 3GRM HEMO STAT ABS FDA Start: 07-25-2020 Panniculectomy JOHNNA 3GRM HEMO STAT ABS FDA Start: 07-25-2020 Panniculectomy JOHNNA 3GRM HEMO STAT ABS FDA Start: 07-25-2020 Panniculectomy JOHNNA 3GRM HEMO STAT ABS FDA Start: 07-25-2020 Panniculectomy JOHNNA 3GRM HEMO STAT ABS FDA Start: 07-25-2020 Panniculectomy JOHNNA 3GRM HEMO STAT ABS FDA Start: 07-25-2020 Panniculectomy JOHNNA 3GRM HEMO STAT ABS FDA Start: 07-25-2020 Panniculectomy JOHNNA 3GRM HEMO STAT ABS FDA Start: 07-25-2020 Panniculectomy JOHNNA 3GRM HEMO STAT ABS FDA Start: 07-25-2020 Panniculectomy JOHNNA 3GRM HEMO STAT ABS FDA Start: 07-25-2020 Panniculectomy JOHNNA 3GRM HEMO STAT ABS FDA Start: 07-25-2020 [id number] Start: 02-11-2017 Comment on above: Use to test glucose once daily as directed. DX: E11.42, non insulin dependent. Blood Sugar Diagnostic (Freestyle Lite Strips) strip Start: 12-29-2017 End: 12-30-2017 Blood Sugar Diagnostic (Freestyle Lite Strips) strip Start: 12-30-2017 End: 01-30-2018 Blood Sugar Diagnostic (Freestyle Lite Strips) strip Start: 12-29-2017 End: 12-30-2017 Blood Sugar Diagnostic (Freestyle Lite Strips) strip Start: 12-30-2017 End: 01-30-2018 Blood Sugar Diagnostic (Freestyle Lite Strips) strip Start: 12-29-2017 End: 12-30-2017 Blood Sugar Diagnostic (Freestyle Lite Strips) strip Start: 12-30-2017 End: 01-30-2018 Blood Sugar Diagnostic (Freestyle Lite Strips) strip Start: 12-29-2017 End: 12-30-2017 Blood Sugar Diagnostic (Freestyle Lite Strips) strip Start: 12-30-2017 End: 01-30-2018 Blood Sugar Diagnostic (Freestyle Lite Strips) strip Start: 12-29-2017 End: 12-30-2017 Blood Sugar Diagnostic (Freestyle Lite Strips) strip Start: 12-30-2017 End: 01-30-2018 Blood Sugar Diagnostic (Freestyle Lite Strips) strip Start: 12-29-2017 End: 12-30-2017 Blood Sugar Diagnostic (Freestyle Lite Strips) strip Start: 12-30-2017 End: 01-30-2018 test daily and u p to twice additionally for symptoms of high or low blood glucose [id number] Start: 02-25-2022 Blood Sugar Diagnostic (Freestyle Lite Strips) strip Start: 12-29-2017 End: 12-30-2017 Blood Sugar Diagnostic (Freestyle Lite Strips) strip Start: 12-30-2017 End: 01-30-2018 Blood Sugar Diagnostic (Freestyle Lite Strips) strip Start: 12-29-2017 End: 12-30-2017 Blood Sugar Diagnostic (Freestyle Lite Strips) strip Start: 12-30-2017 End: 01-30-2018 Blood Sugar Diagnostic (Freestyle Lite Strips) strip Start: 12-29-2017 End: 12-30-2017 Blood Sugar Diagnostic (Freestyle Lite Strips) strip Start: 12-30-2017 End: 01-30-2018 Use to test gluc ose once daily as directed. DX: E11.42, non insulin dependent. [id number] Start: 05-07-2021 Use to test gluc ose once daily as directed. DX: E11.42, non insulin dependent. [id number] Start: 09-07-2020 Blood Sugar Diagnostic (Freestyle Lite Strips) strip Start: 12-29-2017 End: 12-30-2017 Blood Sugar Diagnostic (Freestyle Lite Strips) strip Start: 12-30-2017 End: 01-30-2018 Blood Sugar Diagnostic (Freestyle Lite Strips) strip Start: 12-29-2017 End: 12-30-2017 Blood Sugar Diagnostic (Freestyle Lite Strips) strip Start: 12-30-2017 End: 01-30-2018 Blood Sugar Diagnostic (Freestyle Lite Strips) strip Start: 12-29-2017 End: 12-30-2017 Blood Sugar Diagnostic (Freestyle Lite Strips) strip Start: 12-30-2017 End: 01-30-2018 Blood Sugar Diagnostic (Freestyle Lite Strips) strip Start: 12-29-2017 End: 12-30-2017 Blood Sugar Diagnostic (Freestyle Lite Strips) strip Start: 12-30-2017 End: 01-30-2018 Blood Sugar Diagnostic (Freestyle Lite Strips) strip Start: 12-29-2017 End: 12-30-2017 Blood Sugar Diagnostic (Freestyle Lite Strips) strip Start: 12-30-2017 End: 01-30-2018 Blood Sugar Diagnostic (Freestyle Lite Strips) strip Start: 12-29-2017 End: 12-30-2017 Blood Sugar Diagnostic (Freestyle Lite Strips) strip Start: 12-30-2017 End: 01-30-2018 Blood Sugar Diagnostic (Freestyle Lite Strips) strip Start: 12-29-2017 End: 12-30-2017 Blood Sugar Diagnostic (Freestyle Lite Strips) strip Start: 12-30-2017 End: 01-30-2018 Blood Sugar Diagnostic (Freestyle Lite Strips) strip Start: 12-29-2017 End: 12-30-2017 Blood Sugar Diagnostic (Freestyle Lite Strips) strip Start: 12-30-2017 End: 01-30-2018 Functional Status Date Assessment Result Facility 07-21-2014 Are you deaf, or do you have serious difficulty hearing No 07/21/2014 2:05 PM EDT Dony Guerra MA [facility] 07-21-2014 Are you blind, or do you have serious difficulty seeing, even when wearing glasses No 07/21/2014 2:05 PM EDT Dony Guerra MA No [facility] 07-21-2014 Do you have serious difficulty walking or climbing stairs No 07/21/2014 2:05 PM EDT Dony Guerra MA No [facility] 07-21-2014 Do you have difficul ty dressing or bathing No 07/21/2014 2:05 PM EDT Dony Guerra MA [facility] 07-21-2014 Because of a physica l, mental, or emotional condition, do you have difficulty doing errands alone such as visiting a physician's office or shopping No 07/21/2014 2:05 PM EDT Dony Guerra MA [facility] Mental Status Date Assessment Result Facility 06-03-2024 Cognitive function Level Of Cons ciousness Awake;Alert;Appropriate;Fol lows Commands [facility] Work Phone: 04-06-2022 Cognitive function Awake;Alert;Appropriat e [facility] Work Phone: 11-27-2021 Cognitive function Level Of Cons ciousness Awake;Follows Commands [facility] Work Phone: 07-21-2014 Because of a physica l, mental, or emotional condition, do you have serious difficulty concentrating, remembering, or making decisions No 07/21/2014 2:05 PM EDT Dony Guerra MA [facility] Clinical Notes 08-03-2018 to 11-03-2024 Kelley Craig APRN.IN HOUSE COUNSEL - 11/03/2024 1:30 PM EDTPatient InstructionsTelephone Encounter - Karla Syed LPN - 10/27/2024 4:22 PM EDT Note Date & Type Note Facility 11-03-2024 History of Presen t illness Narrative Follow-Up Onabotulinum Toxin A (BotoxTM) for Migraine Indication: Chronic Intractable Migraine Treatment #: 2 Referral Expiration: 03/16/2025 Prior to the initiation of the FIRST treatment with Onabotulinum Toxin A, the patient reported the following average headache frequency over the past 3 MONTHS: Number of moderate-severe migraine days/month: 15 Number of mild migraine days/month: 0 Number of headache free days/month: 15 (360 headache-free hours) Migraine severity: 8 After treatment with Onabotulinum Toxin A: Number of moderate-severe migraine days/month: 8 Number of mild migraine days/month: 0 Number of headache free days/month: 22 (528 headache-free hours) Migraine severity: 10/24 Patient reduction in overall migraine days: Yes Patient reduction in moderate-severe migraine days: Yes Patient reduction of headache hours by 100 hours or more: Yes (reduction of 168 hours) Individual has obtained clinical benefit deemed significant by individual or prescriber (Y/N): Yes Patient's quality of life and ability to perform ADLs has improved (Y/N): Yes Side effects: none Wearing off: Yes - 10 weeks after treatment The patient has been assessed for disorders which could contribute to breathing or swallowing difficulty, and there is no contraindication with PREEMPT Botox. There is no documented allergic reaction/hypersensitivity to any botulinum toxin and there is no active infection at proposed injection site. HEADACHE SCORES: There were no vitals taken for this visit. Patient name: Bradley Keys : 1960 ALLERGIES Allergen Reactions Celebrex [Celecoxib] blisters from head to toe UNIVERSAL PROTOCOL / SAFETY CHECKLIST Procedure: Onabotulinum toxin A for migraine Informed Consent Consent Obtained: Written [place] Protocol A moment to CARE was completed SIGN IN Personnel directly involved with the procedure wore the appropriate PPE Special Equipment: N/A Patient/Surrogate Stated/Verified: Patient name, Date of , Relevant allergies and Intended procedure TIME OUT No relevant labs, photos, and/or imaging studies were applicable for review. Consent documented and matches the intended procedure No correct side/site applicable for marking and visibility. No medications required for procedure. No fire risk assessment and interventions applicable. No implant(s) inserted. SIGN OUT No specimen collected. 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 He is treating his break through headaches with nurtec, which work well. He tolerated the procedure well He will follow up in 12 weeks for his next cycle of botox. Kelley Craig APRN.ROB documented in this encounter [facility] 11-03-2024 Instructions Kelley Craig APRN.CNP - 11/03/2024 1:30 PM EDT Botox Home Instruction: Instruction after botox injection: - If you have any pain or swelling use ice, 20 min on and 20 min off. Do not rub or massage the area for 48 hrs. - If you have any neck stiffness, you may use heat and do stretching exercises. - This should improve over the next 5 days. documented in this encounter [facility] 11-03-2024 Note HNO ID: [id number] Author: KELLEY CRAIG APRN.CNP Service: ? Author Type: Nurse Practitioner Type: Progress Notes Filed: 11/03/2024 13:31 Note Text: Follow-Up Onabotulinum Toxin A (BotoxTM) for Migraine Indication: Chronic Intractable Migraine Treatment #: 2 Referral Expiration: 03/16/2025 Prior to the initiation of the FIRST treatment with Onabotulinum Toxin A, the patient reported the following average headache frequency over the past 3 MONTHS: Number of moderate-severe migraine days/month: 15 Number of mild migraine days/month: 0 Number of headache free days/month: 15 (360 headache-free hours) Migraine severity: 10/24 After treatment with Onabotulinum Toxin A: Number of moderate-severe migraine days/month: 8 Number of mild migraine days/month: 0 Number of headache free days/month: 22 (528 headache-free hours) Migraine severity: 10/24 Patient reduction in overall migraine days: Yes Patient reduction in moderate-severe migraine days: Yes Patient reduction of headache hours by 100 hours or more: Yes (reduction of 168 hours) Individual has obtained clinical benefit deemed significant by individual or prescriber (Y/N): Yes Patient's quality of life and ability to perform ADLs has improved (Y/N): Yes Side effects: none Wearing off: Yes - 10 weeks after treatment The patient has been assessed for disorders which could contribute to breathing or swallowing difficulty, and there is no contraindication with PREEMPT Botox. There is no documented allergic reaction/hypersensitivity to any botulinum toxin and there is no active infection at proposed injection site. HEADACHE SCORES: There were no vitals taken for this visit. Patient name: Bradley Keys : 1960 ALLERGIES Allergen Reactions Celebrex [Celecoxib] blisters from head to toe UNIVERSAL PROTOCOL / SAFETY CHECKLIST Procedure: Onabotulinum toxin A for migraine Informed Consent Consent Obtained: Written [place] Protocol A moment to CARE was completed SIGN IN Personnel directly involved with the procedure wore the appropriate PPE Special Equipment: N/A Patient/Surrogate Stated/Verified: Patient name, Date of , Relevant allergies and Intended procedure TIME OUT No relevant labs, photos, and/or imaging studies were applicable for review. Consent documented and matches the intended procedure No correct side/site applicable for marking and visibility. No medications required for procedure. No fire risk assessment and interventions applicable. No implant(s) inserted. SIGN OUT No specimen collected. 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 He is treating his break through headaches with nurtec, which work well. He tolerated the procedure well He will follow up in 12 weeks for his next cycle of botox. Kelley Craig APRN.[facility] 10-27-2024 Telephone encounter Note Prescription Refill Information The patient has been identified by name and date of : Yes Caregiver verified no other encounters exist for this prescription request: Yes Caregiver confirmed with patient/requestor that no other refills are due, in the near future, with this provider at this time: Yes The last office visit in the department: 09/24/24 Does the patient have a future office visit with this provider/department: Yes 11/03/24 Requested Prescriptions Pending Prescriptions Disp Refills NURTEC ODT 75 mg disintegrating tablet [Pharmacy Med Name: NURTEC ODT 75 MG TABLET] 8 tablet 1 Sig: TAKE 1 TABLET BY MOUTH ONCE DAILY NEEDED Karla Syed LPN October 27, 2024 4:22 PM [facility] 10-27-2024 Miscellaneous Notes Prescription Refill Information The patient has been identified by name and date of : Yes Caregiver verified no other encounters exist for this prescription request: Yes Caregiver confirmed with patient/requestor that no other refills are due, in the near future, with this provider at this time: Yes The last office visit in the department: 09/24/24 Does the patient have a future office visit with this provider/department: Yes 11/03/24 Requested Prescriptions Pending Prescriptions Disp Refills NURTEC ODT 75 mg disintegrating tablet [Pharmacy Med Name: NURTEC ODT 75 MG TABLET] 8 tablet 1 Sig: TAKE 1 TABLET BY MOUTH ONCE DAILY NEEDED Karla Syed LPN October 27, 2024 4:22 PM documented in this encounter [facility] 10-12-2024 Telephone encounter Note Pt reports he is out of medication. The patient has been identified by name and date of : Yes Caregiver verified no other encounters exist for this prescription request: Yes Caregiver confirmed with patient/requestor that no other refills are due, in the near future, with this provider at this time: Yes The last office visit in the department: 06/24/2024 Does the patient have a future office visit with this provider/department: No Visit date not found Requested Prescriptions Pending Prescriptions Disp Refills topiramate (TOPAMAX) 100 mg tablet 60 tablet 0 topiramate (TOPAMAX) 50 mg tablet 60 tablet 0 Sig: Take 1 tablet by mouth two times a day. takes with the 100 mg twice daily Marisabel Madsen RN October 12, 2024 1:36 PM [facility] 10-12-2024 Miscellaneous Notes Pt reports he is out of medication. The patient has been identified by name and date of : Yes Caregiver verified no other encounters exist for this prescription request: Yes Caregiver confirmed with patient/requestor that no other refills are due, in the near future, with this provider at this time: Yes The last office visit in the department: 06/24/2024 Does the patient have a future office visit with this provider/department: No Visit date not found Requested Prescriptions Pending Prescriptions Disp Refills topiramate (TOPAMAX) 100 mg tablet 60 tablet 0 topiramate (TOPAMAX) 50 mg tablet 60 tablet 0 Sig: Take 1 tablet by mouth two times a day. 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 EDWIN Tran [facility]06-26-2025 Miscellaneous Notes* Telephone Encounter - Suellen Lopez OCCA - 09/09/2024 3:39 PM EDT TC to patient who verbalized understanding of Rx sent to pharmacy. EDWIN Tran * Telephone Encounter - Karla Nichols RN - 09/09/2024 1:47 PM EDT Pt called in for refills on his Topiramate 100 and 50 mg tablets. Pt last saw Dhara Peck on 06/24/24 and next appt for Botox injection 11/03 as pt had to antoine his September appt due to vacation. [facility] Telephone encounter Note * Telephone Encounter - Karla Nichols RN - 09/09/2024 1:47 PM EDT Pt called in for refills on his Topiramate 100 and 50 mg tablets. Pt last saw Dhara Peck on 06/24/24 and next appt for Botox injection 11/03 as pt had to antoine his September appt due to vacation. [facility]05-16-2025 Discharge summary [facility] Medical Records Department [address] [place] [address] Emergency Department Summary 07/30/24 MR#: [id number] Acct: [id number] Name: BRADLEY KEYS Rep #:[id number] : 1960 63 From: Hiram Srivastava PCP: AILYN Colin Status:REG E R Location: ED HPI HPI - Fall History of Present Illness Chief Complaint: Fall PFSH [facility] Medical History Wears partial dentures Gastric reflux Cardiology follow-up encounter Wears glasses Diabetes Hypothyroidism Non-smoker BiPAP (biphasic positive airway pressure) dependence Hx of cardiovascular stress test Edema Coronary artery disease Hypertension Migraine headache Injury of head and neck Excessive body weight loss Intertrigo Gynecomastia, male Panniculitis, unspecified Abdominal panniculus Vitamin deficiency GERD (gastroesophageal reflux disease) History of pneumonia Neuropathy High triglycerides High cholesterol Hearing problem Frequent headaches Anxiety and depression Back problem Essential hypertension Obstructive sleep apnea Bradycardia Subdural hematoma (08/03/18) Traumatic brain injury (08/03/18) Pressure ulcer of coccygeal region, stage 2 Dizziness Dyspnea on exertion Constipation Hypothyroidism (acquired) Hiatal hernia Preop cardiovascular exam Atherosclerotic heart disease of false pass coronary artery without angina pectoris Chronic diarrhea Obesity Diabetes type 2, uncontrolled Hyperlipidemia Home Medications ?Medication ?Instructions ?Recorded ?Last Taken ?Type omeprazole 20 mg capsule,delayed 20 mg PO DAILY gerd # 30 caps 08/20/18 01/24/21 Rx release cholecalciferol (vitamin D3) 50 2,000 unit PO DAILY navas pplement 12/31/18 Unknown History mcg (2,000 unit) capsule (Vitamin D3) vitamin B complex 1 cap PO BID supplement 12/15 10/02 Unknown History zinc 50 mg tablet 50 mg PO DAILY supplement Unknown History calcium 500 mg (as 1 ea PO DAILY supplement Unknown History carbonate)-vitamin D3 15 mcg (600 unit) tablet levothyroxine 100 mcg tablet 100 mcg PO DAILY@0600 thy roid 10/18/20 01/24/21 History [id number] 1 tab PO DAILY 03/29/21 U nknown History tablet (Cerovite Senior) rimegepant 75 mg disintegrating 75 mg PO ONCE PRN migr david headache 02/25/22 Unknown History tablet (Nurtec ODT) atorvastatin 40 mg tablet 40 mg PO QHS cholesterol #90 tabs 03/27/22 Unknown Rx citalopram 40 mg tablet 40 mg PO QDAY 07/05/24 Unkno wn History doxycycline monohydrate 100 mg 100 mg PO QDAY 07/05/24 Unknown History capsule gabapentin 600 mg tablet 600 mg PO QHS 07/05/24 Unkno wn History melatonin 5 mg tablet 5 mg PO QHS PRN sleep Unknown History semaglutide 1 mg/dose (4 mg/3 mL) 1 mg subcut QWEEK Unknown History subcutaneous pen injector (Ozempic) topiramate 100 mg tablet 100 mg PO BID 07/05/24 Unkno wn History topiramate 50 mg tablet (Topamax) 50 mg PO BID seizure s 07/05/24 Unknown History citalopram 10 mg tablet (Celexa) 10 mg PO DAILY Unknown History Allergy/AdvReac Type Severity Reaction Status Date / Time celecoxib (From Celebrex) Allergy Intermediate Rash Verified 07/30/24 18:18 Family History Mother CAD (coronary artery disease) Diabetes History of blood clots Heart disease Hypertension High cholesterol Kidney disease Respiratory disease Seizures CVA (cerebral vascular accident) Father CAD (coronary artery disease) Hypertension Cancer Diabetes Heart disease High cholesterol CVA (cerebral vascular accident) Lung cancer Sister CAD (coronary artery disease) Hypertension Alcoholism Anxiety Suicide attempt Grandfather Diabetes Grandmother Diabetes Surgical History History of cholecystectomy History of bilateral mastectomy History of excision of lesion History of abdominal surgery (07/25/20) Hx of colonoscopy History of gastric bypass History of hernia repair Stented coronary artery (~02/2009) Hx of cholecystectomy Status post bariatric surgery removal of lypoma H/O hemorrhoidectomy removal of enlarged lymph node Social History Smoking Status: Never smoker second hand exposure: No alcohol intake: never substance use type: does not use caffeine: No additional social history: DOES TAKE ASPIRIN DOES TAKE IBUPROFEN EXAM Physical Exam Const Vital Signs: 07/30/24 18:18 07/30/24 20:22 Temperature 98.1 F Temperature Source Oral Pulse Rate 68 62 Respiratory Rate 16 16 Blood Pressure 117/66 125/70 H Blood Pressure Mean 83 88 Pulse Ox 97 94 Oxygen Delivery Method Room Air Room Air MDM MDM MDM Narrative Medical decision making narrative: HISTORY OF PRESENT ILLNESS: Chief complaint: fall 63-year-old male history of subdural hematoma, hypothyroidism, MARKY, type 2 diabetes presents with fall. Notes he fell in his bathtub on Friday. Notes hesaw his PCP and to get x-rays but could not. He notes pain in his head, neck, back and abdomen. He further states the mat he was standing on fell out from under him causing a fall hitting his head, chest abdomen. Notes back pain as well. Denies taking blood thinners.. Denies numbness, tingling loss of consciousness. REVIEW OF SYSTEMS: Pertinent positives: As per HPI Pertinent negatives: As per HPI PHYSICAL EXAM: Primary Survey Airway: Intact Breathing: Bilateral breath sounds Circulation: Palpable bilateral femorals, Palpable bilateral radial, Palpable bilateral DP and Palpable bilateral PT Disability / Spine precautions GCS Score: Eye Openin Verbal Response: 5 Motor Response: 6 Secondary Survey Constitutional: Please see MDM Head: Atraumatic, Midface stable, NO jaw malocclusion, No Cephalohematoma, and No Lacerations noted Eye: Pupils equal round and reactive to light, Extraocular muscles intact and Noperiorbital ecchymosis or stepoff, no evidence of entrapment ENT: Oropharynx clear, no lacerations, no hemotympanum, no raccoon eyes or sawyer sign Cervical spine / Neck: No cervical spine bony tenderness, crepitance, or stepoffdeformity Trachea midline Lungs: Clear to auscultation, No asymmetric rise and No crepitus, no flail chest Cardiac: Regular rate and rhythm and No murmurs Abdomen: Soft, Nontender and No rebound Pelvis: Pelvis stable to compression : No evidence of genital injury Back: No midline bony tenderness to thoracic/lumbar/sacral spines Neuro: At baseline, intact strength and sensation in bilateral upper and lower extremities. 2+ patellar reflexes bilaterally. Extremities: NO gross Deformities Psych: Normal affect Nursing triage notes reviewed, Vital signs reviewed MEDICAL DECISION MAKING: Chief Complaint: please see HPI External records reviewed: [Reviewed prior imaging studies: Reviewed CT scan of the brain from 2022which showed no acute abnormality Factors affecting care: As per HPI Social determinants of health: none History obtained from others: none Consults: none [facility] Narrative: The patient was initially hemodynamically stable, afebrile and nontoxic- appearing. Primary secondary trauma surveys concerning for the following differential: I considered the following differential diagnosis: Intracranial abnormality, cervical spine abnormality, chest abdomen pelvis abnormality, thoracic spine abnormality I obtained a broad lab and imaging workup to further elucidate etiology of the patient's complaints ALL IMAGES (IF OBTAINED) HAVE BEEN PERSONALLY REVIEWED AND INTERPRETED BY MYSELF. Imaging was obtained which showed no obvious acute traumatic abnormalities. Pain control instructions were given. PCP follow-up instructed. Strict return precautions were discussed The patient and/or family, caregivers express understanding. The patient and/or family, caregivers agrees with the plan. Shared decision making: I will have a discussion with the patient and or visitors regarding risk/benefits of further testing or admission. They will be made aware of of the risk/benefits inherent in this decision they will be given the opportunity to voice understanding. Total critical care time today provided was at least 0 minutes. This excludes separately billable procedures. Critical care time (if documented) is secondary to the patient having high probability ofclinically significant/life threatening deterioration in the patient's condition which required my urgent intervention. Impression: 1. Closed head injury 2. Chest contusion 3. Back contusion Dispo: Discharge home This note was generated with [employer] dictation software. It may contain incorrect words, spelling, and punctuation that were not noted in review of the chart prior to signing. Radiography Diagnostic Testing: Clinical Impression(s) from Imaging Studies Brain CT 07/30/24 18:45 IMPRESSION: No acute intracranial abnormality. Reading Location: [id number] Cervical Spine CT 07/30/24 18:45 IMPRESSION: No displaced fracture or traumatic listhesis of the cervical spine. Mild multilevel degenerative changes, worst at C5-6. Reading Location: [id number] Chest/Abdomen/Pelvis CT 07/30/24 18:45 IMPRESSION: Chest: No acute findings in the thorax. Abdomen and pelvis: No acute findings in the abdomen and pelvis. Extensive colonic stool with fecal impaction. Reading [facility] Thor[facility] Spine CT 07/30/24 18:45 IMPRESSION: No acute fracture or traumatic subluxation. Reading Location[facility] Discharge Plan Triage Chief Complaint: Fall ED Provider: Hiram Burns Dx/Rx/DC Orders Prescriptions: No Action cholecalciferol (vitamin D3) [Vitamin D3] 2,000 unit capsule 2,000 unit PO DAILY vitamin B complex Capsule 1 cap PO BID topiramate [Topamax] 50 mg tablet 50 mg PO BID zinc 50 mg tablet 50 mg PO DAILY Cerovite Senior Tablet 1 tab PO DAILY atorvastatin 40 mg tablet 40 mg PO QHS Qty: 90 3RF Nurtec ODT 75 mg tablet,disintegrating 75 mg PO ONCE PRN (Reason: migraine headache) Rx Instructions: as a single dose doxycycline monohydrate 100 mg capsule 100 mg PO QDAY Ozempic 1 mg/dose (4 mg/3 mL) pen injector 1 mg subcut QWEEK topiramate 100 mg tablet 100 mg PO BID melatonin 5 mg tablet 5 mg PO QHS PRN (Reason: sleep) citalopram 40 mg tablet 40 mg PO QDAY gabapentin 600 mg tablet 600 mg PO QHS omeprazole 20 MG capsule 20 mg PO DAILY Qty: 30 3RF calcium carbonate-vitamin D3 1 EACH tablet 1 ea PO DAILY levothyroxine 100 MCG tablet 100 mcg PO DAILY@0600 citalopram [Celexa] 10 mg tablet 10 mg PO DAILY Primary Care Provider: Samantha Khoury Referrals: Mandi Sandoval Wilbert, [facility] [[facility]] - Print Language: Ecuadorean What to do if you have Problems For any increased pain, shortness of breath, bleeding, nausea or vomiting, chestpain, or any unexpected problems, contact your Primary Care Provider. Call [facility] ([phone]) or report tothe closest Emergency Room. Call 911 if necessary. 07/30/242112 Cosigner Signature (if applicable): CC: AILYN Khoury ~ Signed [facility]05-16-2025 Radiology Diagnostic study note [facility] Imaging Services [address] [place] [address] Spine Thoracic without Contras MR#: [id number] Acct: [id number] Name: BRADLEY KEYS Rep #: [id number] : 1960 M 63 From: Odette Craig MD PCP: AILYN Colin Status: REG E R Study:Spine Thoracic without Contras Date of Exam: 07/30/24 Exam# [id number] Ordering Dr: Hardy Burns DO PROCEDURE: SPINE THORACIC WITHOUT CONTRAS REASON FOR EXAM: BACK PAIN AFTER FALL TECHNIQUE: Thoracic spine CT without contrast. Coronal and Sagittal reconstruction series were provided. One or more dose reduction techniques were used (e.g., Automated exposure control, adjustment of the mA and/or kV according to patient size, use of iterative reconstruction technique). COMPARISON: None FINDINGS: Alignment: Thoracic kyphosis is maintained. Bones: Mild loss of disc height at T3 vertebral body, likely secondary to a herniated Schmorl's node. Otherwise, vertebral body heights and disc spaces are within normal limits. No acute fracture or traumatic subluxation. No suspicious lytic or blastic lesion. No significant degenerative changes of the thoracic spine. 4 Soft Tissues: Paraspinal soft tissues are unremarkable. Other: Atelectasis within the imaged lung kirk. CT/Spine Thoracic without Contras IMPRESSION: No acute fracture or traumatic subluxation. Reading Location: [facility] CC: AILYN Khoury; Dr. Hiram Burns DO ~ Dentistry Teacher: Signed [facility]05-16-2025 Radiology Diagnostic study note [facility] Imaging Services [address] [place] [address] CT Chest, Abd, Pelvis WO Cont MR#: [id number] Acct: [id number] Name: BRADLEY KEYS Rep #: [id number] : 1960 M 63 From: Odette Craig MD PCP: AILYN Colin Status: REG E R Study:CT Chest, Abd, Pelvis WO Cont Date of E xam: 07/30/24 Exam# [id number] Ordering Dr: Hardy Burns DO PROCEDURE: CT CHEST, ABD, PELVIS WO CONT 07/30/2024 REASON FOR EXAM: CHEST PAIN, ABDOMINAL PAIN AND AFTER FALL TECHNIQUE: Chest, abdomen and pelvis CT without intravenous contrast. Coronal and Sagittal reconstruction series were provided. One or more dose reduction techniques were used (e.g., Automated exposure control, adjustment of the mA and/or kV according to patient size, use of iterative reconstruction technique. COMPARISON: CT chest 10/24/2018 FINDINGS: CT CHEST: Hardware: None Lymph nodes: No suspicious adenopathy. Heart and Vasculature: Mild cardiomegaly. Severe coronary artery calcifications. No pericardial effusion. Atherosclerotic calcifications of the thoracic aorta. Thoracic aorta and pulmonary arteries havenormal contours; noncontrast technique limits evaluation. Coronary Artery Calcifications: Present Lungs and Airways: Central airways are patent without endobronchial lesions. Patchy opacities in the lung base, compatible with atelectasis. No focal consolidation. No suspicious pulmonary nodules. No pneumothorax. No pleural effusion. Bones: Degenerative changes of the thoracic spine. No focal osseous abnormality. Chest wall: Mild bilateral gynecomastia. CT ABDOMEN / PELVIS: Noncontrast technique limits evaluation of the abdominal and pelvic viscera. Liver: Normal size. No mass. Gallbladder: No ductal dilation. Status post cholecystectomy. Spleen: Multiple splenic granulomas. No splenomegaly. Pancreas: Normal size without evidence of mass surrounding inflammation or ductal dilation. Adrenals: Unremarkable Kidneys: Bilateral parapelvic cysts. No calculi or hydronephrosis. Bladder: Urinary bladder is unremarkable. Reproductive Organs: No pelvic mass. Bowel: Status post Jolanta-en-Y. No bowel dilation or wall thickening. Extensive colonic stool with fecal impaction. Appendix: Normal appendix. Lymph nodes: No suspicious adenopathy. Vasculature: Mild diffuse atherosclerotic calcifications are noted. Peritoneum / Retroperitoneum: No ascites. No pneumoperitoneum. Bones: Degenerative changes of the spine. Soft tissue: Mild subcutaneous edema. CT/CT Chest, Abd, Pelvis WO Cont IMPRESSION: Chest: No acute findings in the thorax. Abdomen and pelvis: No acute findings in the abdomen and pelvis. Extensive colonic stool with fecal impaction. Reading [facility] CC: [facility]TON [facility]-C Samantha Khoury; Dr. Hiram Burns DO ~ Dentistry Teacher: Signed [facility]05-16-2025 Radiology Diagnostic study note [facility] Imaging Services [address] [place] [address] Spine Cervical without Contras MR#: [id number] Acct: [id number] Name: BRADLEY KEYS Rep #: [id number] : 1960 M 63 From: Chrystal Villegas MD PCP: AILYN Colin Status: REG E R Study:Spine Cervical without Contras Date of Exam: 07/30/24 Exam# [id number] Ordering Dr: Hardy Burns DO PROCEDURE: SPINE CERVICAL WITHOUT CONTRAS 07/30/2024 REASON FOR EXAM: NECK PAIN TECHNIQUE: Cervical spine CT without contrast. Coronal and Sagittal reconstruction series were provided. One or more dose reduction techniques were used (e.g., Automated exposure control, adjustment of the mA and/or kV according to patient size, use of iterative reconstruction technique RADIATION DOSE SUMMARY: CTDlvol: 20.1 mGy DLP: 420 mGycm COMPARISON: CT cervical spine 08/02/2018 FINDINGS: Vertebral body heights and alignment are maintained. No displaced fracture. Mild endplate osteophyte formation and disc space narrowing is worst at C5-6 where there is mild osseous neural foraminal narrowing bilaterally. Surgical clips in the left neck soft tissues. Carotid bulb calcifications. Lung apices are clear. CT/Spine Cervical without Contras IMPRESSION: No displaced fracture or traumatic listhesis of the cervical spine. Mild multilevel degenerative changes, worst at C5-6. Reading Location: [facility] CC: AILYN Khoury; Dr. Hiram Burns DO ~ Dentistry Teacher: Signed [facility]05-16-2025 Radiology Diagnostic study note [facility] Imaging Services [address] [place], [place] [address] Brain/Head without Contrast MR#: [id number] Acct: [id number] Name: BRADLEY KEYS Rep #: [id number] : 1960 M 63 From: Chrystal Villegas MD PCP: AILYN Colin Status: REG E R Study:Brain/Head without Contrast Date of Exa m: 07/30/24 Exam# [id number] Ordering Dr: Hardy Burns DO PROCEDURE: BRAIN/HEAD WITHOUT CONTRAST 07/30/2024 REASON FOR EXAM: HEAD TRAUMA TECHNIQUE: Head CT without intravenous contrast. Coronal and Sagittal reconstruction serieswere provided. One or more dose reduction techniques were used (e.g., Automated exposure control, adjustment of the mA and/or kV according to patient size, use of iterative reconstruction technique. RADIATION DOSE SUMMARY: CTDlvol: 45.0 mGy DLP: 830 mGycm COMPARISON: CT head 04/06/2022 FINDINGS: Brain: No acute intracranial hemorrhage, mass effect, or midline shift. CSF Spaces: Unremarkable Sinuses/Mastoids: Clear at visualized levels Bones: No displaced calvarial fracture. Stranding in the left parietal scalp soft tissues is unchanged.. CT/Brain/Head without Contrast IMPRESSION: No acute intracranial abnormality. Reading Location: [facility] CC: AILYN Khoury; Dr. Hiram Burns DO ~ Dentistry Teacher: Signed [facility]05-16-2025 Telephone encounter Note* Telephone Encounter - Jenni Hester RN - 07/30/2024 4:40 PM EDT Spouse calls to report that patient is still having head pain/symptoms from his fall with head injury and they are not able to get him in for a CT Scan until 08/15/2024. Patient is not seen by [facility]. Spouse reports that patient was seen at [facility] by Samantha Calixto. Recommended contacting their office to review on-going symptoms that patient was seen by them for and ask about further recommendations. Spouse then reports that patient is seen by neurology here and wants it reviewed with them. Noted patient is established with neurology for migraines unrelated to fall with head injury. Instructed tocontact Atticadixon Valdez or go to ER if symptoms are worsening. Spouse verbalizes understanding. Jenni Hester RN [facility]05-16-2025 Miscellaneous Notes* Telephone Encounter - Jenni Hester RN - 07/30/2024 4:40 PM EDT Spouse calls to report that patient is still having head pain/symptoms from his fall with head injury and they are not able to get him in for a CT Scan until 08/15/2024. Patient is not seen by [facility]. Spouse reports that patient was seen at [facility] by Samantha Calixto. Recommended contacting their office to review on-going symptoms that patient was seen by them for and ask about further recommendations. Spouse then reports that patient is seen by neurology here and wants it reviewed with them. Noted patient is established with neurology for migraines unrelated to fall with head injury. Instructed tocontact Jensen Valdez or go to ER if symptoms are worsening. Spouse verbalizes understanding. Jenni Hester RN documented in [facility] Discharge summary Author Hiram Burns [facility] Note Date/Time July 30, 2024 9:13p [facility] Medical Records Department [address] [place] [address] Emergency Department Summary 07/30/24 MR#: [id number] Acct: [id number] Name: BRADLEY KEYS Rep #:[id number] : 1960 63 From: Hiram Srivastava PCP: AILYN Colin Status:REG E R Location: ED HPI HPI - Fall History of Present Illness Chief Complaint: Fall PFSH [facility] Medical History Wears partial dentures Gastric reflux Cardiology follow-up encounter Wears glasses Diabetes Hypothyroidism Non-smoker BiPAP (biphasic positive airway pressure) dependence Hx of cardiovascular stress test Edema Coronary artery disease Hypertension Migraine headache Injury of head and neck Excessive body weight loss Intertrigo Gynecomastia, male Panniculitis, unspecified Abdominal panniculus Vitamin deficiency GERD (gastroesophageal reflux disease) History of pneumonia Neuropathy High triglycerides High cholesterol Hearing problem Frequent headaches Anxiety and depression Back problem Essential hypertension Obstructive sleep apnea Bradycardia Subdural hematoma (08/03/18) Traumatic brain injury (08/03/18) Pressure ulcer of coccygeal region, stage 2 Dizziness Dyspnea on exertion Constipation Hypothyroidism (acquired) Hiatal hernia Preop cardiovascular exam Atherosclerotic heart disease of false pass coronary artery without angina pectoris Chronic diarrhea Obesity Diabetes type 2, uncontrolled Hyperlipidemia Home Medications ?Medication ?Instructions ?Recorded ?Last Taken ?Type omeprazole 20 mg capsule,delayed 20 mg PO DAILY gerd # 30 caps 08/20/18 01/24/21 Rx release cholecalciferol (vitamin D3) 50 2,000 unit PO DAILY navas pplement 12/31/18 Unknown History mcg (2,000 unit) capsule (Vitamin D3) vitamin B complex 1 cap PO BID supplement 12/15 10/02 Unknown History zinc 50 mg tablet 50 mg PO DAILY supplement Unknown History calcium 500 mg (as 1 ea PO DAILY supplement Unknown History carbonate)-vitamin D3 15 mcg (600 unit) tablet levothyroxine 100 mcg tablet 100 mcg PO DAILY@0600 thy roid 10/18/20 01/24/21 History votewmrlfkou-ejizvqnn-luvczr 1 tab PO DAILY 03/29/21 U nknown History tablet (Cerovite Senior) rimegepant 75 mg disintegrating 75 mg PO ONCE PRN migr david headache 02/25/22 Unknown History tablet (Nurtec ODT) atorvastatin 40 mg tablet 40 mg PO QHS cholesterol #90 tabs 03/27/22 Unknown Rx citalopram 40 mg tablet 40 mg PO QDAY 07/05/24 Unkno wn History doxycycline monohydrate 100 mg 100 mg PO QDAY 07/05/24 Unknown History capsule gabapentin 600 mg tablet 600 mg PO QHS 07/05/24 Unkno wn History melatonin 5 mg tablet 5 mg PO QHS PRN sleep Unknown History semaglutide 1 mg/dose (4 mg/3 mL) 1 mg subcut QWEEK Unknown History subcutaneous pen injector (Ozempic) topiramate 100 mg tablet 100 mg PO BID 07/05/24 Unkno wn History topiramate 50 mg tablet (Topamax) 50 mg PO BID seizure s 07/05/24 Unknown History citalopram 10 mg tablet (Celexa) 10 mg PO DAILY Unknown History Allergy/AdvReac Type Severity Reaction Status Date / Time celecoxib (From Celebrex) Allergy Intermediate Rash Verified 07/30/24 18:18 Family History Mother CAD (coronary artery disease) Diabetes History of blood clots Heart disease Hypertension High cholesterol Kidney disease Respiratory disease Seizures CVA (cerebral vascular accident) Father CAD (coronary artery disease) Hypertension Cancer Diabetes Heart disease High cholesterol CVA (cerebral vascular accident) Lung cancer Sister CAD (coronary artery disease) Hypertension Alcoholism Anxiety Suicide attempt Grandfather Diabetes Grandmother Diabetes Surgical History History of cholecystectomy History of bilateral mastectomy History of excision of lesion History of abdominal surgery (07/25/20) Hx of colonoscopy History of gastric bypass History of hernia repair Stented coronary artery (~02/2009) Hx of cholecystectomy Status post bariatric surgery removal of lypoma H/O hemorrhoidectomy removal of enlarged lymph node Social History Smoking Status: Never smoker second hand exposure: No alcohol intake: never substance use type: does not use caffeine: No additional social history: DOES TAKE ASPIRIN DOES TAKE IBUPROFEN EXAM Physical Exam Const Vital Signs: 07/30/24 18:18 07/30/24 20:22 Temperature 98.1 F Temperature Source Oral Pulse Rate 68 62 Respiratory Rate 16 16 Blood Pressure 117/66 125/70 H Blood Pressure Mean 83 88 Pulse Ox 97 94 Oxygen Delivery Method Room Air Room Air [facility] Narrative Medical decision making narrative: HISTORY OF PRESENT ILLNESS: Chief complaint: fall 63-year-old male history of subdural hematoma, hypothyroidism, MARKY, type 2 diabetes presents with fall. Notes he fell in his bathtub on Friday. Notes hesaw his PCP and to get x-rays but could not. He notes pain in his head, neck, back and abdomen. He further states the mat he was standing on fell out from under him causing a fall hitting his head, chest abdomen. Notes back pain as well. Denies taking blood thinners.. Denies numbness, tingling loss of consciousness. REVIEW OF SYSTEMS: Pertinent positives: As per HPI Pertinent negatives: As per HPI PHYSICAL EXAM: Primary Survey Airway: Intact Breathing: Bilateral breath sounds Circulation: Palpable bilateral femorals, Palpable bilateral radial, Palpable bilateral DP and Palpable bilateral PT Disability / Spine precautions GCS Score: Eye Openin Verbal Response: 5 Motor Response: 6 Secondary Survey Constitutional: Please see MDM Head: Atraumatic, Midface stable, NO jaw malocclusion, No Cephalohematoma, and No Lacerations noted Eye: Pupils equal round and reactive to light, Extraocular muscles intact and Noperiorbital ecchymosis or stepoff, no evidence of entrapment ENT: Oropharynx clear, no lacerations, no hemotympanum, no raccoon eyes or sawyer sign Cervical spine / Neck: No cervical spine bony tenderness, crepitance, or stepoffdeformity Trachea midline Lungs: Clear to auscultation, No asymmetric rise and No crepitus, no flail chest Cardiac: Regular rate and rhythm and No murmurs Abdomen: Soft, Nontender and No rebound Pelvis: Pelvis stable to compression : No evidence of genital injury Back: No midline bony tenderness to thoracic/lumbar/sacral spines Neuro: At baseline, intact strength and sensation in bilateral upper and lower extremities. 2+ patellar reflexes bilaterally. Extremities: NO gross Deformities Psych: Normal affect Nursing triage notes reviewed, Vital signs reviewed MEDICAL DECISION MAKING: Chief Complaint: please see HPI External records reviewed: [Reviewed prior imaging studies: Reviewed CT scan of the brain from 2022 which showed no acute abnormality Factors affecting care: As per HPI Social determinants of health: none History obtained from others: none Consults: none [facility] Narrative: The patient was initially hemodynamically stable, afebrile and nontoxic- appearing. Primary secondary trauma surveys concerning for the following differential: I considered the following differential diagnosis: Intracranial abnormality, cervical spine abnormality, chest abdomen pelvis abnormality, thoracic spine abnormality I obtained a broad lab and imaging workup to further elucidate etiology of the patient's complaints ALL IMAGES (IF OBTAINED) HAVE BEEN PERSONALLY REVIEWED AND INTERPRETED BY MYSELF. Imaging was obtained which showed no obvious acute traumatic abnormalities. Pain control instructions were given. PCP follow-up instructed. Strict return precautions were discussed The patient and/or family, caregivers express understanding. The patient and/or family, caregivers agrees with the plan. Shared decision making: I will have a discussion with the patient and or visitors regarding risk/benefits of further testing or admission. They will be made aware of of the risk/benefits inherent in this decision they will be given the opportunity to voice understanding. Total critical care time today provided was at least 0 minutes. This excludes separately billable procedures. Critical care time (if documented) is secondary to the patient having high probability of clinically significant/life threatening deterioration in the patient's condition which required my urgent intervention. Impression: 1. Closed head injury 2. Chest contusion 3. Back contusion Dispo: Discharge home This note was generated with [employer] dictation software. It may contain incorrect words, spelling, and punctuation that were not noted in review of the chart prior to signing. Radiography Diagnostic Testing: Clinical Impression(s) from Imaging Studies Brain CT 07/30/24 18:45 IMPRESSION: No acute intracranial abnormality. Reading Location: [facility] Cervical Spine CT 07/30/24 18:45 IMPRESSION: No displaced fracture or traumatic listhesis of the cervical spine. Mild multilevel degenerative changes, worst at C5-6. Reading Location: [facility] Chest/Abdomen/Pelvis CT 07/30/24 18:45 IMPRESSION: Chest: No acute findings in the thorax. Abdomen and pelvis: No acute findings in the abdomen and pelvis. Extensive colonic stool with fecal impaction. Reading Location: [facility] Thoracic Spine CT 07/30/24 18:45 IMPRESSION: No acute fracture or traumatic subluxation. Reading [facility] Discharge Plan Triage Chief Complaint: Fall ED Provider: Hiram Burns Dx/Rx/DC Orders Prescriptions: No Action cholecalciferol (vitamin D3) [Vitamin D3] 2,000 unit capsule 2,000 unit PO DAILY vitamin B complex Capsule 1 cap PO BID topiramate [Topamax] 50 mg tablet 50 mg PO BID zinc 50 mg tablet 50 mg PO DAILY Cerovite Senior Tablet 1 tab PO DAILY atorvastatin 40 mg tablet 40 mg PO QHS Qty: 90 3RF Nurtec ODT 75 mg tablet,disintegrating 75 mg PO ONCE PRN (Reason: migraine headache) Rx Instructions: as a single dose doxycycline monohydrate 100 mg capsule 100 mg PO QDAY Ozempic 1 mg/dose (4 mg/3 mL) pen injector 1 mg subcut QWEEK topiramate 100 mg tablet 100 mg PO BID melatonin 5 mg tablet 5 mg PO QHS PRN (Reason: sleep) citalopram 40 mg tablet 40 mg PO QDAY gabapentin 600 mg tablet 600 mg PO QHS omeprazole 20 MG capsule 20 mg PO DAILY Qty: 30 3RF calcium carbonate-vitamin D3 1 EACH tablet 1 ea PO DAILY levothyroxine 100 MCG tablet 100 mcg PO DAILY@0600 citalopram [Celexa] 10 mg tablet 10 mg PO DAILY Primary Care Provider: Samantha Khoury Referrals: Mandi Sandoval [facility], BUTTON BREAKER-C [[facility]] - Print Language: Ecuadorean What to do if you have Problems For any increased pain, shortness of breath, bleeding, nausea or vomiting, chestpain, or any unexpected problems, contact your Primary Care Provider. Call [facility] ([phone]) or report to the closest Emergency Room. Call 911 if necessary. 07/30/242112 <Electronically signed by Hiram Burns DO> Cosigner Signature (if applicable): CC: AILYN Khoury ~ Signed [facility] Work Phone: 1(415) 597-756004-21-2025 Evaluation note* Diagnosis Onset Date Resolution Status Admit Date Migraine headache chronic June 162024 1:13pm Obesity chronic July 05 1:13pm Obstructive sleep apnea chronic A 2024 1:13pm [facility] Work Phone: [phone] Evaluation note* Diagnosis Onset Date Resolution Status Admit Date Migraine headache chronic June 162024 1:13pm Obesity chronic July 05 1:13pm Obstructive sleep apnea chronic A 2024 1:13pm Migraine headache chronic October 062024 1:55pm Obesity chronic October 06 1:55pm Obstructive sleep apnea chronic J carlyn2024 1:55pm [facility] Work Phone: [phone]) [phone] Telephone encounter Note* Telephone Encounter - Mandi Finch - 06/24/2024 1:27 PM EDT Please call this patient to schedule a 3 month follow up for BOTOX, he saw Dhara Peck today, she will be on maternity leave then. I wasn't sure how to schedule this. His phone number is [phone] [facility]04-10-2025 Miscellaneous Notes* Telephone Encounter - Mandi Finch - 06/24/2024 1:27 PM EDT Please call this patient to schedule a 3 month follow up for BOTOX, he saw Dhara Peck today, she will be on maternity leave then. I wasn't sure how to schedule this. His phone number is [phone] documented in this encounterMarietta [facility]04-10-2025 Instructions* Patient Instructions* Dhara Peck PA-C - 06/24/2024 12:52 PM EDT Botox Home Instruction: Instruction after botox injection: - If you have any pain or swelling use ice, 20 min on and 20 min off. Do not rub or massage the area for 48 hrs. - If you have any neck stiffness, you may use heat and do stretching exercises. - This should improve over the next 5 days. - If it does not, call our office for further instructions. documented in this encounterMarietta [facility] Hospital04-10-2025 NoteHNO ID: [id number] Author: DHARA PECK PA-C Service: ? Author Type: Physician Responder Type: Progress Notes Filed: 06/24/2024 13:27 Note Text: New Onabotulinum Toxin A (BotoxTM) for Migraine Indication: Chronic Intractable Migraine Treatment #: 1 Referral Expiration: 03/16/2025 Number of moderate-severe migraine days/month: 15 Number of mild migraine days/month: 0 Number of headache free days/month: 15 (360 headache-free hours) Migraine severity: 8/10 The patient has been assessed for disorders which could contribute to breathing or swallowing difficulty, and there is no contraindication with PREEMPT Botox. There is no documented allergic reaction/hypersensitivity to any botulinum toxin and there is no active infection at proposed injection site. HEADACHE SCORES: BP 113/77 (BP Site: Right Arm, BP Position: Sitting, BP Cuff Size: Regular Adult) Pulse 63 Ht 172.7 cm (5' 8) Wt 92 kg (202 lb 11.4 oz) BMI 30.82 kg/m? Patient name: Bradley Keys : 1960 ALLERGIES Allergen Reactions Celebrex [Celecoxib] blisters from head to toe UNIVERSAL PROTOCOL / SAFETY CHECKLIST Procedure: Onabotulinum toxin A for migraine Informed Consent Consent Obtained: Written [place] Protocol A moment to CARE was completed SIGN IN Personnel directly involved with the procedure wore the appropriate PPE Special Equipment: N/A Patient/Surrogate Stated/Verified: Patient name, Date of , Relevant allergies and Intended procedure TIME OUT No relevant labs, photos, and/or imaging studies were applicable for review. Consent documented and matches the intended procedure No correct side/site applicable for marking and visibility. No medications required for procedure. No fire risk assessment and interventions applicable. No implant(s) inserted. SIGN OUT No specimen collected. Written Consent Obtained: Written LOT #: [id number] Expiration Date: Month: 5 Year: 2026 Second vial: LOT #: [id number] Expiration Date: Month: 5 Year: 2026 Injection Sites Left (Units) Left (Sites) Right (Units) Right (Sites) TOTAL (Units) Slice Cutting Machine Operator Helper 5 1 5 1 10 Procerus Units: 5 Sites: 1 5 Frontalis 10 2 10 2 20 Temporalis 20 4 20 4 40 Occipitalis 15 3 15 3 30 Cervical PSP 10 2 10 2 20 Trapezius 15 3 15 3 30 Total Units used: 155 Total Units wasted: 45 Prior Therapies Duration of Use Dose Side effect Zofran MG Gabapentin Nurtec TPM Celexa Metoprolol Lasix Losartan Ajovy Patient presents for first botox (has had at outside clinic). Tolerated procedure well without complication. Continuing TPM 150mg and nurtec for treatment as well. Will follow up in three months for repeat admin. [facility] History of Present illness Narrative* Dhara Peck PA-C - 06/24/2024 12:50 PM EDT New Onabotulinum Toxin A (BotoxTM) for Migraine Indication: Chronic Intractable Migraine Treatment #: 1 Referral Expiration: 03/16/2025 Number of moderate-severe migraine days/month: 15 Number of mild migraine days/month: 0 Number of headache free days/month: 15 (360 headache-free hours) Migraine severity: 8/10 The patient has been assessed for disorders which could contribute to breathing or swallowing difficulty, and there is no contraindication with PREEMPT Botox. There is no documented allergic reaction/hypersensitivity to any botulinum toxin and there is no active infection at proposed injection site. HEADACHE SCORES: BP 113/77 (BP Site: Right Arm, BP Position: Sitting, BP Cuff Size: Regular Adult) Pulse 63 Ht 172.7 cm (5' 8) Wt 92 kg (202 lb 11.4 oz) BMI 30.82 kg/m Patient name: Bradley Keys : 1960 ALLERGIES Allergen Reactions Celebrex [Celecoxib] blisters from head to toe UNIVERSAL PROTOCOL / SAFETY CHECKLIST Procedure: Onabotulinum toxin A for migraine Informed Consent Consent Obtained: Written [place] Protocol A moment to CARE was completed SIGN IN Personnel directly involved with the procedure wore the appropriate PPE Special Equipment: N/A Patient/Surrogate Stated/Verified: Patient name, Date of , Relevant allergies and Intended procedure TIME OUT No relevant labs, photos, and/or imaging studies were applicable for review. Consent documented and matches the intended procedure No correct side/site applicable for marking and visibility. No medications required for procedure. No fire risk assessment and interventions applicable. No implant(s) inserted. SIGN OUT No specimen collected. Written Consent Obtained: Written LOT #: [id number] Expiration Date: Month: Year: 2026 Second vial: LOT #: [id number] Expiration Date: Month: Year: 2026 Injection Sites Left (Units) Left (Sites) Right (Units) Right (Sites) TOTAL (Units) Slice Cutting Machine Operator Helper 5 1 5 1 10 Procerus Units: 5 Sites: 1 5 Frontalis 10 2 10 2 20 Temporalis 20 4 20 4 40 Occipitalis 15 3 15 3 30 Cervical PSP 10 2 10 2 20 Trapezius 15 3 15 3 30 Total Units used: 155 Total Units wasted: 45 Prior Therapies Duration of Use Dose Side effect Zofran MG Gabapentin Nurtec TPM Celexa Metoprolol Lasix Losartan Ajovy Patient presents for first botox (has had at outside clinic). Tolerated procedure well without complication. Continuing TPM 150mg and nurtec for treatment as well. Will follow up in three months for repeat admin. Dhara Peck PA-C documented in this encounterMarietta [facility]04-04-2025 Telephone encounter Note * Telephone Encounter - Alma Lam LPN - 06/18/2024 2:23 PM EDT The patient has been identified by name and date of : Yes Caregiver verified no other encounters exist for this prescription request: Yes Caregiver confirmed with patient/requestor that no other refills are due, in the near future, with this provider at this time: Yes The last office visit in the department: 05/11/2024 Does the patient have a future office visit with this provider/department: Yes Visit date not found Requested Prescriptions Pending Prescriptions Disp Refills topiramate (TOPAMAX) 50 mg tablet Sig: Take 1 tablet by mouth two times a day. takes with the 100 mg twice daily topiramate (TOPAMAX) 100 mg tablet Sig: Take 1 tablet by mouth two times a day. takes with the 50 mg twice daily Patient said he takes 150 mg twice daily, has not gotten these rx from [facility] yet. Alma Lam LPN June 18, 2024 2:27 PM [facility]04-04-2025 Miscellaneous Notes* Telephone Encounter - Alma Lam LPN - 06/18/2024 2:23 PM EDT The patient has been identified by name and date of : Yes Caregiver verified no other encounters exist for this prescription request: Yes Caregiver confirmed with patient/requestor that no other refills are due, in the near future, with this provider at this time: Yes The last office visit in the department: 05/11/2024 Does the patient have a future office visit with this provider/department: Yes Visit date not found Requested Prescriptions Pending Prescriptions Disp Refills topiramate (TOPAMAX) 50 mg tablet Sig: Take 1 tablet by mouth two times a day. takes with the 100 mg twice daily topiramate (TOPAMAX) 100 mg tablet Sig: Take 1 tablet by mouth two times a day. takes with the 50 mg twice daily Patient said he takes 150 mg twice daily, has not gotten these rx from [facility] yet. Alma Lam LPN June 18, 2024 2:27 PM documented in this encounterMarietta [facility]03-20-[facility]25 Radiology Diagnostic study note [facility] Imaging Services [address] [place] [address] Chest PA and Lateral MR#: [id number] Acct: [id number] Name: BRADLEY KEYS Rep #: [id number] : 1960 M 63 From: Jose Verma MD PCP: LESTER Camacho, BUTTON BREAKER-C Status: REG ER Study:Chest PA and Lateral Date of Exam: 06/03/24 Exam# [id number] Ordering Dr: Jay Marshall DO PROCEDURE: CHEST PA AND LATERAL 06/03/2024 REASON FOR EXAM: COUGH TECHNIQUE: PA and lateral views were obtained. COMPARISON: Comparison is made with prior study dated April 06, 2022. FINDINGS: The heart is not enlarged. The lungs are clear. No acute abnormality is seen. RAD/Chest PA and Lateral IMPRESSION: No acute abnormality is seen. Reading Location: [place] [address] CC: [facility] BUTTON BREAKER-C Mandi Sandoval; Dr. Jay Marshall DO ~ Dentistry Teacher: Signed [facility]02-25-2025 Instructions* Patient Instructions* Dhara Peck PA-C - 05/11/2024 2:14 PM EST Continue with botox and topiramate 150mg twice a day [facility] Follow up for botox documented in this encounterMarietta [facility]02-25-2025 NoteHNO ID: [id number] Author: DHARA PECK PA-C Service: ? Author Type: Physician Responder Type: Progress Notes Filed: 05/11/2024 14:37 Note Text: Neurology Outpatient Clinic Date: May 11, 2024 Patient Name: Bradley Keys Referring physician: No referring provider defined for this encounter. Primary provider: Mandi Sandoval CNP [address] [place] [address] Reason for Evaluation: Headaches Subjective HPI Bradley Keys is a 63 year old right-handed male who presents for evaluation of headaches. Mandi Sandoval NP is the PCP. Chart review: Last seen by Dr. Urias on 02/09/24, due for botox. Seen for chronic migraines. Patient presents for headache evaluation. Previously following with Dr. Urias, receiving Botox every 3 months with significant improvement. Also on topiramate 150 mg twice daily and takes Nurtec for abortive relief. No recent changes, notes that Dr. Urias is retiring so he is transitioning care. Is unsure of his last Botox regimen, on chart review it appears it was on 01-19-2024 so patient is overdue. Patient does believe this is correct. No other new symptoms or concerns. Notes that his headache started about 7 years ago when he fell off of his dining room table onto the concrete floor and sustained a subarachnoid hemorrhage. Was followed by trauma at that time but ever since has had headaches. Notes that prior to the Botox he is having about 3-4 headaches a week but since that time he gets about 3 to 4 months. However, in the roomstates that she feels he has more headaches. Notes this is just the amount of time he takes Nurtec for abortive relief. Notes that the Nurtec helps dull the pain but does not completely abort it. The only thing that completely takes away his headache is sleeping. Does not member any of the other medications he was on before this. Does report he gets some mild dull headaches when he has issues with his CPAP machine. Current Headache treatment Preventative: TPM 150mg botox Abortive: nurtec Medications effective? sometimes # of doses of abortive medications per month: 4 Previous imaging: MRI pituitary 09/19/21 IMPRESSION: NORMAL MRI OF THE PITUITARY GLAND. NO PATHOLOGIC ENHANCEMENT NOTED. Previous Medications: Zofran MG Gabapentin Nurtec TPM Celexa Metoprolol Lasix Losartan Ajovy Headache Description Onset: 7 years Total headache days per month: 4 per month Total headache attacks per month: 4 per month Headache free days: Yes Duration of attacks: until he sleeps Severity of headaches? Moderate to severe Onset to Peak: gradual Location: left side or both temples. Aura: None Prodrome:none. Accompanying symptoms: photophobia, nausea, lightheaded. Quality:throbbing. Worse with activity: Yes Triggers: none. Cough/sneeze/valsalva as trigger: no Positional changes: no Most common time of day for headache to begin:anytime. Time missed from work or school: none Risk Factors Visual-Motion sensitivity: Yes Tobacco Use: No Alcohol Use: No Other substances: No Caffeine: Yes, once a week Water- tea with no sugar (iced tea) Neck Pain /Back Pain: No Fibromyalgia: No History of Motor Vehicle Accident: No History of Traumatic Brain Injury and/or Concussion: Yes, 7 years ago History of severe infection: No History of Syncope: No Obesity: Yes, , Body mass index is 32 Eye doc- coming up Family History Migraine or other headaches in the family: No Aneurysms in a first degree relative: No Brain tumors in the family: No Other neurological illness in the family: no ROS Review of Systems CONSTITUTIONAL: No reported fevers, chills, night sweats, or significant unintentional weight loss. EYES: No visual changes indicated. No eye pain or orbital swelling reported. HEENT: No hearing changes or vertiginous symptoms indicated. Chronic tinnitus No history of nose bleeds reported. RESPIRATORY: No reported cough, wheezing and dyspnea. CARDIOVASCULAR: Negative for significant chest pain, and palpitations per report. GI: Negative for significant abdominal discomfort, blood in stools or black stools reported. No recent reported change in bowel habits. : No reported history of incontinence. No dark/cola colored urine reported. MUSCLOSKELETAL: No history of significant joint pain or swelling, or myalgias reported. SKIN: Negative for pertinent lesions, rash, and itching per report. HEMATOLOGY/ONCOLOGY: Negative for reported prolonged bleeding, bruising easily, and swollen nodes. ENDOCRINE: Negative for reported significant cold or heat intolerance, no reported goitrous neck swelling or polydipsia PSYCH: No reported depression or anxiety symptoms. No reported SI or HI. NEURO: Per HPI above. Sleep: Sleep apnea, Medications: Current Outpatient Medications Medication Sig Dispense Re (more content not included)...[facility]02-25-2025 History of Present illness Narrative* Dhara Peck PA-C - 05/11/2024 1:23 PM EST Images from the original note were not included. Neurology Outpatient Clinic Date: May 11, 2024 Patient Name: Bradley Keys Referring physician: No referring provider defined for this encounter. Primary provider: Mandi Sandoval CNP [address] [place] [address] Reason for Evaluation: Headaches Subjective HPI Bradley Keys is a 63 year old right-handed male who presents for evaluation of headaches. Mandi Sandoval NP is the PCP. Chart review: Last seen by Dr. Urias on 02/09/24, due for botox. Seen for chronic migraines. Patient presents for headache evaluation. Previously following with Dr. Urias, receiving Botox every 3 months with significant improvement. Also on topiramate 150 mg twice daily and takes Nurtec for abortive relief. No recent changes, notes that Dr. Urias is retiring so he is transitioning care. Is unsure of his last Botox regimen, on chart review it appears it was on 01-19-2024 so patient is overdue. Patient does believe this is correct. No other new symptoms or concerns. Notes that his headache started about 7 years ago when he fell off of his dining room table onto the concrete floor and sustained a subarachnoid hemorrhage. Was followed by trauma at that time but ever since has had headaches. Notes that prior to the Botox he is having about 3-4 headaches a week but since that timehe gets about 3 to 4 months. However, in the room states that she feels he has more headaches.Notes this is just the amount of time he takes Nurtec for abortive relief. Notes that the Nurtec helps dull the pain but does not completely abort it. The only thing that completely takes away his headache is sleeping. Does not member any of the other medications he was on before this. Does report he gets some mild dull headaches when he has issues with his CPAP machine. Current Headache treatment Preventative: TPM 150mg botox Abortive: nurtec Medications effective? sometimes # of doses of abortive medications per month: 4 Previous imaging: MRI pituitary 09/19/21 IMPRESSION: NORMAL MRI OF THE PITUITARY GLAND. NO PATHOLOGIC ENHANCEMENT NOTED. Previous Medications: Zofran MG Gabapentin Nurtec TPM Celexa Metoprolol Lasix Losartan Ajovy Headache Description Onset: 7 years Total headache days per month: 4 per month Total headache attacks per month: 4 per month Headache free days: Yes Duration of attacks: until he sleeps Severity of headaches? Moderate to severe Onset to Peak: gradual Location: left side or both temples. Aura: None Prodrome:none. Accompanying symptoms: photophobia, nausea, lightheaded. Quality:throbbing. Worse with activity: Yes Triggers: none. Cough/sneeze/valsalva as trigger: no Positional changes: no Most common time of day for headache to begin:anytime. Time missed from work or school: none Risk Factors Visual-Motion sensitivity: Yes Tobacco Use: No Alcohol Use: No Other substances: No Caffeine: Yes, once a week Water- tea with no sugar (iced tea) Neck Pain /Back Pain: No Fibromyalgia: No History of Motor Vehicle Accident: No History of Traumatic Brain Injury and/or Concussion: Yes, 7 years ago History of severe infection: No History of Syncope: No Obesity: Yes, , Body mass index is 32 Eye doc- coming up Family History Migraine or other headaches in the family: No Aneurysms in a first degree relative: No Brain tumors in the family: No Other neurological illness in the family: no ROS Review of Systems CONSTITUTIONAL: No reported fevers, chills, night sweats, or significant unintentional weight loss. EYES: No visual changes indicated. No eye pain or orbital swelling reported. HEENT: No hearing changes or vertiginous symptoms indicated. Chronic tinnitus No history of nose bleeds reported. RESPIRATORY: No reported cough, wheezing and dyspnea. CARDIOVASCULAR: Negative for significant chest pain, and palpitations per report. GI: Negative for significant abdominal discomfort, blood in stools or black stools reported. No recent reported change in bowel habits. : No reported history of incontinence. No dark/cola colored urine reported. MUSCLOSKELETAL: No history of significant joint pain or swelling, or myalgias reported. SKIN: Negative for pertinent lesions, rash, and itching per report. HEMATOLOGY/ONCOLOGY: Negative for reported prolonged bleeding, bruising easily, and swollen nodes. ENDOCRINE: Negative for reported significant cold or heat intolerance, no reported goitrous neck swelling or polydipsia PSYCH: No reported depression or anxiety symptoms. No reported SI or HI. NEURO: Per HPI above. Sleep: Sleep apnea, Medications: Current Outpatient Medications Medication Sig Dispense Refill ondansetron orally disintegrating (ZOFRAN ODT) 4 mg disintegrating tablet Dissolve 1 tablet on tongue every 8 hours as needed for nausea/vomiting. 30 tablet 1 docusate sodium (COLACE) 100 mg capsule Take 1 capsule by mouth two times a day. 30 capsule 1 metFORMIN (GLUCOPHAGE) 500 mg tablet Take 500 mg by mouth daily with breakfast. magnesium oxide 400 mg magnesium cap Take 1 capsule by mouth once daily. gabapentin (NEURONTIN) 300 mg capsule Take 300 mg by mouth three times a day. acetaminophen (TYLENOL) 325 mg tablet Take 650 mg by mouth every 6 hours as needed. aspirin 81 mg chewable tablet Take 81 mg by mouth once daily. blood sugar diagnostic (ONETOUCH VERIO TEST STRIPS) test strip Use to test glucose once daily as directed. DX: E11.42, non insulin dependent. 100 Each 0 OYSTER SHELL CALCIUM-VITAMIN D 500 mg(1,250mg) -200 unit per tablet Take 1 tablet by mouth once daily. lancets (ONE TOUCH DELICA) 33 gauge Use to test glucose once daily as directed. DX: E11.42, non insulin dependent. 100 Each 3 Blood-Glucose Meter (ONETOUCH VERIO METER) Use to test glucose once daily as directed. DX: E11.42, non insulin dependent. 1 Each 0 Zinc 50 mg tab Take 50 mg by mouth once daily. topiramate (TOPAMAX) 50 mg tablet Take 150 mg by mouth two times a day. atorvastatin (LIPITOR) 40 mg tablet Take 40 mg by mouth once daily. melatonin 3 mg tablet Take 2 tablets by mouth daily at bedtime. Cholecalciferol, Vitamin D3, 2,000 unit cap Take 2 capsules by mouth once daily. omeprazole (PRILOSEC) 20 mg capsule Take 20 mg by mouth once daily. citalopram (CELEXA) 20 mg tablet Take 30 mg by mouth once daily. levothyroxine (SYNTHROID) 100 mcg tablet Take 100 mcg by mouth daily before breakfast. cyanocobalamin, vitamin B-12, (VITAMIN B-12 ORAL) Take 500 Units by mouth two times a day. multivit-min/folic/vit K/lycop (ONE-A-DAY MEN'S MULTIVITAMIN ORAL) Take 1 tablet by mouth once daily. NURTEC ODT 75 mg disintegrating tablet Take 1 tablet by mouth once daily as needed. 8 tablet 2 No current facility-administered medications for this visit. ROS: His ROS was positive for that mentioned in the HPI. Otherwise a 10-point ROS was completed andwas negative. 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 Worked at [employer] in the past Objective 05/11/24 1345 BP: 114/80 BP Site: Left Arm BP Position: Sitting BP Cuff Size: Regular Adult Pulse: 71 Resp: 18 SpO2: 97% Weight: 95.6 kg (210 lb 12.8 oz) Physical Examination General Appearance: Well appearing, alert, in no acute distress, well-hydrated, well nourished. Head: Normocephalic Pulm: Breathing comfortably Neck: Supple Psych: Cooperative, appropriate affect Neurological Examination: Mental Status: Alert and Oriented to Place, Person, Time and Situation and Patient follows commands.. Language: Is intact to Comprehension, Fluency and Repetition Cranial Nerves: CNII: Visual acuity normal, visual kirk full to confrontation CNIII, IV, : Pupils equal, round and reactive to light, full extraoccular movements, without nystagmus CN V: Facial sensation intact bilaterally to fine touch CN VII: Facial muscles symmetric and strong CN VIII: Hears finger rub well bilaterally CN IX: Gag Reflex not examined CN X: Palate elevates symmetrically CN XI: Full strength shoulder shrug bilaterally CN XII: Tongue protrusion full and midline Motor Exam: Tone - Normal Tone noted in all extremities Bulk - Normal bulk noted in all muscles tested. Inspection - Normal, no fasciculations or tremors noted. Power: weakness in the arms ranging from 4 to 4+/5, poor effort. Had some difficulty following instructions. MUSCLES Lower Extremity RIGHT LEFT Hip Flexion 5/5 5/5 Hip Extension 5/5 5/5 BiFem (Knee Flex) 5/5 5/5 Quads (Knee Ext) 5/5 5/5 Gastroc (Plantflx) 5/5 5/5 TibAnt (Dorsiflx) 5/5 5/5 FlxHLong (Toe Flex) 5/5 5/5 ExtHLong (Toe Ext) 5/5 5/5 Sensory Examination Sensation is intact to light touch. Negative extinction to double simultaneous stimulation Reflexes Right Left Bicep 2/4 2/4 BrRad 2/4 2/4 Knee 2/4 2/4 Ankle 2/4 2/4 Francis Response Negative Negative Coordination: finger-to- nose-finger intact bilaterally and [id number] intact bilaterally. Gait: Patient's gait is normal Romberg: Negative DATA REVIEWED Actual films/image/tracing reviewed and summarized as follows: MRI pituitary Old records reviewed and summarized as follows: Neurology, primary care Assessment/Plan Assessment & Plan: Bradley Keys is a 63 year old right-handed male with a history of migraines, subarachnoid hemorrhage, hyperlipidemia, diabetes, sleep apnea, hypertension, CAD. His examination demonstrates weakness to the BUE. Patient presents to establish care for migraines. Notes chronic migraines for the last 7 years since he sustained a head injury with subarachnoid hemorrhage after falling off his dining room table. Previously followed with Dr. Urias who is retiring. Is currently on Topamax 150 mg twice daily andBotox for preventative therapy. Takes Nurtec for abortive relief with moderate benefit. Notes that the only thing that fully aborts his headaches is sleeping. Headaches are migrainous in description,no autonomic features or onset with Valsalva, position change or exertion. Did have recent MRI of the pituitary which was normal, but no other imaging. No new symptoms that would warrant additional wo rkup at this time. Patient does note that since his head injury he is also had some issues with short-term memory and does not member any of the medicines he has tried. Last Botox was 01-19-2024 basedon chart review the patient is overdue at this time. Would like to continue his current regimen at this time, will send in new prior authorization for Botox therapy. Refill sent for Nurtec. Encouraged conservative therapy as well. Of note, patient was found to have some weakness of the bilateral upper extremities which she states is chronic since his shoulder injuries and rotator cuff injuries. No falls, signs or symptoms of cord compression. Patient and agreeable to treatment plan of care at this time, questions were answered. Patientto follow-up for Botox therapy Nasim was seen today for new patient evaluation. Diagnoses and all orders for this visit: Intractable chronic migraine without aura and without status migrainosus [facility] 75 mg disintegrating tablet; Take 1 tablet by mouth once daily as needed. All options for treatment discussed. Preventative: Topiramate 150 mg twice daily, Botox Abortive: Nurtec Imaging: Labs: He should return to see me in 1-2 months. I spent a total of 50 minutes on the date of the service which included preparing to see the patient, [id number] patient care, completing clinical documentation, obtaining and/or reviewing separately obtained history, performing a medically appropriate examination, counseling and educating the pat ient/family/caregiver, and ordering medications, tests, or procedures. Dhara Peck PA-C [facility] Neurology This document has been created with the use of voice recognition technology. It may contain inaccuracies: (e.g. misspellings, inaccurate syntax or word sense) that have escaped review. documented in this encounterMarietta [facility] Hospital12-20-2024 NoteHNO ID: [id number] Author: TINO ZULETA MD Service: ? Author Type: Physician Type: Progress Notes Filed: 03/08/2024 07:47 Note Text: PAIN EVALUATION No data found in the last 1 encounters. Encounter Diagnosis ICD-10-CM 1. Adhesive capsulitis of left shoulder M75.02 Bradley Keys returns following left shoulder arthroscopic capsular release. He has done very well and has no pain most of the time. Has been stretching the shoulder on a daily basis and feels this has gone well. He is doing stretching at home on his own. I examined his left shoulder today. He has no edema and his incisions are healed. His range of motion is improved. He has 140 degrees of active forward elevation with a firm endpoint. Side abduction 120 degrees. External rotation is 60 degrees with the arm at the side and in abduction. Internal rotation behind the back to the mid lumbar level. Good strength with rotator cuff testing. PLAN: We discussed his ongoing recovery. He is doing very well and actually has better motion of the left shoulder than he does in the right shoulder. He should continue daily stretching. I asked him to also begin stretching the right shoulder again to avoid any recurrent stiffness. Return to see me as needed. Tino Zuleta MD Shoulder AND Elbow Surgeon Department of Orthopaedic Surgery [facility]12-20-2024 History of Present illness Narrative* Tino Zuleta MD - 03/05/2024 3:15 PM EST PAIN EVALUATION No data found in the last 1 encounters. Encounter Diagnosis ICD-10-CM 1. Adhesive capsulitis of left shoulder M75.02 Bradley Keys returns following left shoulder arthroscopic capsular release. He has done very well and has no pain most of the time. Has been stretching the shoulder on a daily basis and feels this has gone well. He is doing stretching at home on his own. I examined his left shoulder today. He has no edema and his incisions are healed. His range of motion is improved. He has 140 degrees of active forward elevation with a firm endpoint. Side abduction 120 degrees. External rotation is 60 degrees with the arm at the side and in abduction. Internal rotation behind the back to the mid lumbar level. Good strength with rotator cuff testing. PLAN: We discussed his ongoing recovery. He is doing very well and actually has better motion of the leftshoulder than he does in the right shoulder. He should continue daily stretching. I asked him to also begin stretching the right shoulder again to avoid any recurrent stiffness. Return to see me as needed. Tino Zuleta MD Shoulder & Elbow Surgeon Department of Orthopaedic Surgery [facility] documented in this encounterMarietta [facility] Hospital11-25-2024 History of Present illness Narrative* Nicholas Urias MD - 02/09/2024 1:00 PM EST Images from the original note were not included. CHIEF COMPLAINT: Bradley Keys is a 63 y.o. male here today for Chief Complaint Patient presents with Migraine HISTORY OF PRESENT ILLNESS: History of Present Illness The patient was last seen by Dony for Botox on 01/19/2024 for migraine management. Previously, she saw him for a telemedicine visit in 06/2023, during which it was noted that Botox was effective, leading him to take Nurtec twice a week for mild headaches. I last saw him in 03/2021, at which point headaches, sleep apnea, and a history of intracranial hemorrhage were addressed. He is currently on a regimen of Botox and Nurtec, the latter of which he takes as needed for severeheadaches or migraines. His condition has been stable with this treatment, requiring Nurtec only twice a month. He reports no need for any changes to his current medication regimen. He is also managing well with his CPAP machine. His blood sugar levels are within the normal range, as indicated by asatisfactory A1c level. He is requesting a refill of his Nurtec prescription. He had a left shoulder rotator cuff tear surgery and has been undergoing therapy for it. He has been stretching regularly. He saw the surgeon last Friday. He had therapy in the morning and saw the surgeon in the afternoon. He always experiences problems every time he does it, as he can hardly lift his arm. All the other times he had therapy with different people, and they always told him how wellhe was progressing. He has seen the nurse practitioner at [facility], who had him lift his arm, and he could hardly lift it above his head. He had the same problem with his right arm. Current Outpatient Medications on File Prior to Visit Medication Sig Dispense Refill atorvastatin (Lipitor) 40 MG tablet Take 40 mg by mouth in the morning. B Complex Vitamins (B COMPLEX PO) as directed Orally Calcium Carb-Cholecalciferol (OYSTER SHELL CALCIUM + D3 PO) Take 1 tablet by mouth in the morning. Take with meals. cholecalciferol (Vitamin D-3) 50 MCG (2000 UT) capsule Take 1 capsule by mouth 1 (one) time each day at the same time. citalopram (CeleXA) 10 MG tablet Take 10 mg by mouth in the morning. citalopram (CeleXA) 20 MG tablet Take 20 mg by mouth in the morning. Cyanocobalamin (Vitamin B12) 1000 MCG tablet controlled-release Take 1 tablet by mouth 1 (one) timeeach day at the same time. levothyroxine (Synthroid, Levoxyl) 100 MCG tablet Take 100 mcg by mouth in the morning. Take beforemeals. melatonin 3 MG tablet Take 5 mg by mouth as needed at bedtime. metFORMIN (Glucophage) 500 MG tablet Take 500 mg by mouth in the morning. Take with meals. Multiple Vitamin (Multivitamin Adult) tablet 1 tablet Orally daily Multiple Vitamins-Minerals (Cerovite Senior) tablet as directed Orally omeprazole (PriLOSEC) [address] capsule Take 20 mg by mouth in the morning. Take before meals. topiramate (Topamax) 100 MG tablet Take 1 tablet (100 mg) by mouth in the morning and 1 tablet (100mg) before bedtime. 180 tablet 1 zinc gluconate 50 MG tablet Take 50 mg by mouth in the morning. dulaglutide (Trulicity) 0.75 MG/0.5ML solution pen-injector Inject 0.75 mg under the skin 1 (one) time per week. (Patient not taking: Reported on 02/09/2024) Ozempic, 0.25 or 0.5 MG/DOSE, 2 MG/1.5ML solution pen-injector INJECT 0.25 MG UNDER THE SKIN EVERY WEEK (Patient not taking: Reported on 02/09/2024) No current facility-administered medications on file prior to visit. Past Medical History: Diagnosis Date Anxiety CAD (coronary artery disease) ([facility]) Depression ([facility]) Dizziness DM (diabetes mellitus) ([facility]) Fall subdural intracranial bleed s/p fall (07/2018) Fall occipital skull fxs/p fall (07/2018) Headache Hiatal hernia History of morbid obesity HLD (hyperlipidemia) ([facility]) HTN (hypertension) ([facility]) Hypothyroidism ([facility]) Intracranial subdural hemorrhage (HCC) ([facility]) 07/2018 MARKY (obstructive sleep apnea) Past Surgical History: Procedure Laterality Date BELT ABDOMINOPLASTY tummy tuck -Nov CHOLECYSTECTOMY GASTRIC BYPASS HEMORRHOIDECTOMY LIPOMA RESECTION LYMPH NODE DISSECTION large lymph node removal OTHER SURGICAL HISTORY Coronary Artery Stent ROTATOR CUFF REPAIR Left 01/2024 SKIN SURGERY Skin removal Family History Problem Relation Name Age of Onset Hypertension Mother Heart disease Mother Diabetes Mother Cancer Father lung No Known Problems Son Social History Tobacco Use Smoking status: Never Smokeless tobacco: Never Substance Use Topics Alcohol use: Never Comment: Caffeine: none ALLERGIES: Celebrex [celecoxib] REVIEW OF SYSTEMS: General: Appetite change: denies. Chills: denies. Fever: denies. Allergy/Immunology: Unusual rection to medications, food, animals or insects reaction: denies. Ophthalmologic: Visual acuity change: denies. ENT: Decreased hearing: denies. Endocrine: Weight loss: denies. Respiratory: Cough: denies. Wheezing: denies. Cardiovascular: Chest pain: denies. Palpitations: denies. Gastrointestinal: Abdominal pain: denies. Difficulty swallowing: denies Hematology: Bleeding problems: denies. Genitourinary: Painful urination: denies. Musculoskeletal: Joint pain: denies. Joint edema: denies. Skin: Rash: denies. Neurologic: Ataxia: denies, Tremor: denies. Psychiatric Anxiety: denies. Depression: denies. Insomnia: denies. Suicidal thoughts: denies. Also see HPI for elements of ROS documented therein and for details of positive findings, which shall supersede the foregoing. OBJECTIVE: Objective Vitals: 02/09/24 1300 BP: 118/78 Pulse: 51 SpO2: 97% Weight: 222 lb Height: 5' 8 Body mass index is 33.75 kg/m . No orders to display No visits with results within 2 Month(s) from this visit. Latest known visit with results is: No results found for any previous visit. Results Laboratory Studies Hemoglobin A1c is 6.4. Examination: General Exam: pleasant, well nourished, well developed, in no acute distress Head: normocephalic, atraumatic Eyes: extraocular movement intact (EOMI), pupils equal, round, reactive to light, upper eyelids normal , lower eyelids normal Ears: no obvious hearing deficit Nose: Nares patent Neck/Throat: neck supple, full range of motion Oral Cavity: mucosa moist Skin: warm and dry Heart: no murmurs, regular rate and rhythm, S1, S2 normal Lungs: clear to auscultation bilaterally, good air movement, no wheezes, rales, rhonci, speaks in full sentences Chest: normal shape and expansion Abdomen: bowel sounds present, soft, nontender, nondistended, no guarding or rigidity Extremities: no edema, no cyanosis Musculoskeletal: no swelling or deformity Neurologic: AAOx3, memory intact, fund of knowledge appropriate Naming and repetition intact, fluent language, follows 3-step commands Pupils equal and reactive EOM intact, no gaze preference or deviation, no nystagmus. Normal sensation in V1, V2, and V3 segments bilaterally No facial asymmetry, no nasolabial fold flattening Normal hearing to speech Normal palatal elevation, no uvular deviation Normal midline tongue protrusion 5/5 head turn and 5/5 shoulder shrug bilaterally 5/5 muscle power in bilateral shoulder abductors/adductors, elbow flexors/extensors, wrist flexors/extensors, finger abductors/adductors. 5/5 in bilateral hip flexors/extensors, knee flexors/extensors, ankle dorsiflexors and plantar flexors. Intrinsic hand muscle atrophy Reflexes 2/4 throughout, bilateral flexor plantar response, no Francis's, no clonus Sensation intact to touch, pinprick, vibration, and temperature in all limbs No hemineglect, no extinction to double sided stimulation (visual & tactile) Romberg absent Coordination intact to finger to nose and heel to good, no tremor, no dysmetria Normal stance, no truncal ataxia Normal gait; patient able to tip-toe, heel-walk Psych: pleasant, cooperative, good eye contact, speech clear, judgement and insight good ASSESSMENT/PLAN: Assessment & Plan 1. Migraine. He reports that Botox has been effective in managing his migraines, requiring Nurtec only twice a month for mild headaches. A prescription for Nurtec nasal spray was provided, with instructions to administer one squirt as needed. The potential benefits of the nasal spray, including quicker absorption, were discussed. 2. Left rotator cuff tear. He recently had surgery on his left rotator cuff and is currently undergoing therapy at [facility]. He reports difficulty lifting his arm after therapy sessions with a particular therapist, but otherwise, progress has been noted by other therapists. Continued therapy is recommended. 3. Sleep apnea. He reports doing well with CPAP therapy. No changes are needed at this time. 4. Diabetic neuropathy: His hemoglobin A1c this month is 6.4, which is slightly elevated but considered good. He is advisedto continue his current management plan. documented in this encounterSt. Louis Behavioral Medicine [id number] Telephone encounter Note* Telephone Encounter - Darleen Rdz - 02/05/2024 9:03 AM EST Patient has been scheduled [facility]11-21-2024 Miscellaneous Notes* Telephone Encounter - Darleen Rdz - 02/05/2024 9:03 AM EST Patient has been scheduled * Telephone Encounter - Micha Coles - 02/05/2024 6:56 AM EST Patient is on the wait list for the following: - Shoulder - Left dos 01/26/24 pt needs post op 4wks out from today, please assist w/ scheduling [phone], pm preferred Please call to set up 2nd Post Op appointment with . documented in this encounterM[facility]11[facility] Telephone encounter Note * Telephone Encounter - Micha Coles - 02/05/2024 6:56 AM EST Patient is on the wait list for the following: - Shoulder - Left dos 01/26/24 pt needs post op 4wks out from today, please assist w/ scheduling [phone], pm preferred Please call to set up 2nd Post Op appointment with . [facility]11-20-2024 NoteHNO ID: [id number] Author: DESIREE GILL PA-C Service: ? Author Type: Physician Responder Type: Progress Notes Filed: 02/04/2024 10:40 Note Text: Desiree Gill PA-C Department of Orthopaedics February 04, 2024 SURGERY: Left shoulder arthroscopic lysis of adhesions with acromioplasty, manipulation under anesthesia SUBJECTIVE: Patient returns to clinic now 2 weeks status post the above procedure. Out of sling and has been doing PT. Exam: Examination of shoulder reveals healing portal sites without erythema or drainage. Active forward elevation to 140. ER 10 with pain. IR sacrum with pain. ASSESSMENT: M75.02 Adhesive capsulitis of left shoulder (primary encounter diagnosis) Z98.890 S/P shoulder surgery SUMMARY/PLAN: Continue aggressive stretching. Recheck motion in 4-6 weeks. [facility] History of Present illness Narrative* Desiree Gill PA-C - 02/04/2024 10:35 AM EST Desiree Gill PA-C Department of Orthopaedics February 04, 2024 SURGERY: Left shoulder arthroscopic lysis of adhesions with acromioplasty, manipulation under anesthesia SUBJECTIVE: Patient returns to clinic now 2 weeks status post the above procedure. Out of sling andhas been doing PT. Exam: Examination of shoulder reveals healing portal sites without erythema or drainage. Active forward elevation to 140. ER 10 with pain. IR sacrum with pain. ASSESSMENT: M75.02 Adhesive capsulitis of left shoulder (primary encounter diagnosis) Z98.890 S/P shoulder surgery SUMMARY/PLAN: Continue aggressive stretching. Recheck motion in 4-6 weeks. Desiree Gill PA-C documented in this encounterM[facility]11-[facility]24 Telephone encounter Note * Telephone Encounter - Anisa [place] Alan Stevenmaikol - 01/28/2024 2:59 PM EST ----- Message from Bonnie Atkins sent at 01/28/2024 2:47 PM EST ----- Regarding: Orthopedics /Tino Hidalgo/ wanted to inform provider he did not go to physical therapy today due to being ill Subject Line Format: Orthopedics / [Provider Name or Open & Body Part] / [Issue] Patient has been identified by name and Date of (Y/N): y Patient: Bradley Keys Date of : 1960 Previous Provider Seen: Tino Sousa Body Part(s) Identified: L shoulder Diagnosis/Reason For Visit: post op/physical therapy Reason for the call/escalation: wanted to inform provider he did not go to physical therapy today due to being ill If reason for call/escalation is discharge from ED/ER or Hospital, which facility was the patient seen at: n/a Was an appointment scheduled (Y/N): no Person calling if other than patient: Isabel(spouse) Return call to if other than patient: Isabel Best contact number: [phone] Thank you, Bonnie Manning January 28, 2024 2:47 PM [facility]11-13-2024 Miscellaneous Notes* Telephone Encounter - Gisela Vela - 01/28/2024 2:59 PM EST ----- Message from Bonnie Atkins sent at 01/28/2024 2:47 PM EST ----- Regarding: Orthopedics /Tino Hidalgo/ wanted to inform provider he did not go to physical therapy today due to being ill Subject Line Format: Orthopedics / [Provider Name or Open & Body Part] / [Issue] Patient has been identified by name and Date of (Y/N): y Patient: Bradley Keys Date of : 1960 Previous Provider Seen: Tino Sousa Body Part(s) Identified: L shoulder Diagnosis/Reason For Visit: post op/physical therapy Reason for the call/escalation: wanted to inform provider he did not go to physical therapy today due to being ill If reason for call/escalation is discharge from ED/ER or Hospital, which facility was the patient seen at: n/a Was an appointment scheduled (Y/N): no Person calling if other than patient: Isabel(spouse) Return call to if other than patient: Isabel Best contact number: [phone] Thank you, Bonnie Manning January 28, 2024 2:47 PM documented in this encounterMari[facility]11-[facility]-2024 NoteHNO ID: [id number] Author: NARAYAN NIEVES MD Service: Anesthesiology Author Type: Anesthesiologist Type: Anesthesia Procedure Notes Filed: 01/26/2024 08:14 Note Text: ANESTHESIOLOGY PROCEDURE NOTE Peripheral Nerve Block General Information Procedure Start Time/Medication Administration: 01/26/2024 7:26 AM Procedure End time: 01/26/2024 7:30 AM Patient location during procedure: pre-op Timeout Performed Pre-procedure: timeout performed Consent Obtained: Yes Patient identity confirmed: arm band Reason for block: post-op pain management/at surgeon's request Staffing Anesthesiologist: Narayan Nieves MD Performed by: anesthesiologist Preparation Sterility Preparation: hand hygiene performed prior to procedure, surgical cap used, mask used, sterile drape used during line insertion, skin prep agent completely dried prior to procedure Site Prep: Chloraprep Pre-Procedure Neuro Exam Location: LUE Sensory: intact Motor: intact Procedure Details Patient Position: supine Monitoring: Pulse OX, EKG and NIBP Block Type Upper Extremity: brachial plexus Approach: supraclavicular Laterality: left Injection Technique: single-shot Ultrasound Guided: Yes Image in Chart: yes Local Infiltration: Yes Needle Needle Gauge: 22 G Needle Length: 51 mm Needle Localization: ultrasound Assessment Injection assessment: negative aspiration, no paresthesia on injection, incremental injection and local visualized surrounding nerve on ultrasound Post-Procedure Neuro Exam Expected Regional Anesthesia: Yes Medications Administered ropivacaine (PF) 5 mg/mL (0.5 %) injection (NAROPIN) - peripheral nerve block 30 mL - 01/26/2024 7:26:00 AM SIGNATURE: Narayan Nieves MD PATIENT NAME: Bradley Keys DATE: January 26, 2024 TIME: 8:13 AM CSN: [id number] NoteHNO ID: [id number] Author: CAMRYN MALAVE SRNA Service: ? Author Type: Student Type: Anesthesia Procedure Notes Filed: 01/26/2024 08:03 Note Text: ANESTHESIOLOGY PROCEDURE NOTE Airway General Information Procedure Start Time/Medication Administration: 01/26/2024 7:47 AM Procedure End Time: 01/26/2024 7:47 AM Patient location during procedure: OR Timeout Performed Pre-procedure: timeout performed Consent Obtained: Yes Patient identity confirmed: arm band, care sales team member and patient Staffing Anesthesiologist: Narayan Nieves MD PLANOGRAPH OPERATOR: Ivette Graves APRN.PLANOGRAPH OPERATOR Performed by: RICHY Indications and Patient Condition Indications for airway management: anesthesia and airway protection Preoxygenated: yes anesthesia circuit Method: asleep Cricoid Pressure: No Manual In-Line Stabilization: No Difficult Mask: No Final Airway Details Final airway type: endotracheal airway Final Endotracheal Airway: ETT Cuffed: yes Successful intubation technique: video laryngoscopy Devices used: Powerset Endotracheal tube insertion site: oral Blade: Tracey Blade size: #4 ETT size (mm): 7.5 Measured from: lips Measurement (cm): 22 Placement verified by: capnometry Cormack-Lehane Classification: grade I - full view of glottis Number of attempts at approach: 1 Failed airway: no Unrecognized esophageal intubation: no Airway not difficult SIGNATURE: RICHY Webster PATIENT NAME: Bradley Keys DATE: January 26, 2024 TIME: 8:02 AM CSN: [id number] Instructions* Patient Instructions* Negin Kaufman APRN.[facility] - 01/23/2024 11:39 AM EST Images from the original note were not included. [facility] PATIENT PREOPERATIVE INSTRUCTIONS Tino Zuleta,* has scheduled you for your procedure at this surgery center: [facility]: [phone] -- [address] [facility] [address]. Please read below carefully for your personalized instructions. Dietary Restrictions: - No solid food after midnight. - You may have 12 ounces of clear liquids (water, clear juices such as apple juice or gatorade, carbonated beverages, clear tea, black coffee, jello) until 2 hours before scheduled arrival at facility. No red/purple coloring and no creamer/sugar Medications: Unless instructed differently below, stay on all of your medications until your surgery. If you start any new medications after today's visit, please contact your surgeon. Pre-Surgery Med Instructions Medication Instructions metFORMIN (GLUCOPHAGE) 500 mg tablet Do not take the day of surgery docusate sodium (COLACE) 100 mg capsule Take the day of surgery with a small sip of water magnesium oxide 400 mg magnesium cap Stop 7 days before surgery gabapentin (NEURONTIN) 300 mg capsule Take the day of surgery with a small sip of water acetaminophen (TYLENOL) 325 mg tablet IF needed NURTEC ODT 75 mg disintegrating tablet IF needed aspirin 81 mg chewable tablet Take the day of surgery with a small sip of water blood sugar diagnostic (ONETOUCH VERIO TEST STRIPS) test strip OYSTER SHELL CALCIUM-VITAMIN D 500 mg(1,250mg) -200 unit per tablet Stop 7 days before surgery lancets (ONE TOUCH DELICA) 33 gauge Blood-Glucose Meter (ONETOUCH VERIO METER) Zinc 50 mg tab Stop 7 days before surgery topiramate (TOPAMAX) 50 mg tablet Take the day of surgery with a small sip of water atorvastatin (LIPITOR) 40 mg tablet Take the day of surgery with a small sip of water melatonin 3 mg tablet Stop 7 days before surgery Cholecalciferol, Vitamin D3, 2,000 unit cap Stop 7 days before surgery omeprazole (PRILOSEC) 20 mg capsule Take the day of surgery with a small sip of water citalopram (CELEXA) 20 mg tablet Take the day of surgery with a small sip of water levothyroxine (SYNTHROID) 100 mcg tablet Take the day of surgery with a small sip of water cyanocobalamin, vitamin B-12, (VITAMIN B-12 ORAL) Stop 7 days before surgery multivit-min/folic/vit K/lycop (ONE-A-DAY MEN'S MULTIVITAMIN ORAL) Stop 7 days before surgery If you take any medications for erectile dysfunction-Cialis (Tadalafil), Levitra, Staxyn (Vardenafil) Viagra (Sildenenafil please do not take these for 48 hours before surgery. If you start any new medications after today's visit, please contact the surgeon's office. Blood Thinning Medications: - Stop NSAIDS (Ibuprofen, Advil, Aleve, Motrin, Celebrex, Mobic, etc.) 7 days before surgery, as directed by your surgeon. - Stop Aspirin 7 days before surgery, as directed by your surgeon. - Stop Vitamin E, ALL multi-vitamins, herbals and dietary supplements 7 days before surgery. - You may take Tylenol (Acetaminophen) or any of your pain medications that do not contain aspirin or NSAIDS as needed. Important Reminders: - Candy, mints, and tobacco products are NOT permitted the morning of surgery. - Hearing aids, dentures and glasses may be worn the morning of surgery. - NO jewelry, body piercings, makeup, hairpins or contacts are to be worn the day of surgery. If you develop symptoms such as a fever, cold, or flu, or have other changes to your health within TWO DAYS of scheduled surgery or the morning of surgery, please contact the surgery center above. Personal Belongings: -Please have photo ID and insurance cards. -If you do not have a copy of advance directives on file with us, please bring a copy with you on the day of surgery. - Leave ALL valuables and money at home or with family members. For Outpatient Procedures: - YOU MUST HAVE A RESPONSIBLE INTEGRATION DIRECTOR TAKE YOU HOME. A PURCHASE PRICE ANALYST OR FACILITIES MECHANICAL DESIGN ENGINEER CANNOT BE MADE A RESPONSIBLE INTEGRATION DIRECTOR. - We recommend that a responsible person stays with you overnight to take care of you. - You cannot stay in a hotel alone after outpatient surgery. You will not be permitted to have yoursurgery, if you do not have someone to take care of you. Arrival Time for Surgery: - The Surgery Center or hospital where you are having surgery will call the afternoon before surgery (or Friday for Friday surgery) with a scheduled arrival time. - If you have not heard by 4 pm, please contact the surgery center above. Please be aware that emergency situations arise, which may delay or change your surgical time. If this happens, we will notify you as soon as possible and regret any inconvenience. If you already have an Advance Directive, please fax a copy to [phone] or email to for it to be added to your chart. If you do not have an Advance Directive, you can find the appropriate form and more information at [email or web address]. We recommend that youcomplete the Advance Directive form found on the website and bring it with you the day of your surgery. It can be witnessed and scanned into your chart that day. Negin Kaufman APRN.CNP documented in this encounterM[facility]11[facility] History and physical note * Negin Kaufman APRN.CNP - 01/23/2024 11:36 AM EST Images from the original note were not included. [facility] HISTORY AND PHYSICAL EXAMINATION SERVICE DATE: 01/23/2024 SERVICE TIME: 12:32 PM PRIMARY CARE PHYSICIAN: Mandi Sandoval NP Assessment Patient has the following medical conditions which may affect vidya-operative course: Controlled type 2 diabetes mellitus with diabetic polyneuropathy, without long- term current use of insulin (HCC) Assessment: controlled on oral agent, new A1c pending Hemoglobin A1C (%) Date Value 08/14/2023 5.6 03/25/2019 5.3 Hemoglobin A1C (POCT) (%) Date Value 09/07/2020 5.3 Migraine Assessment: controlled on rx and rx as needed, receives botox, following neurology Subdural hemorrhage (HCC) Assessment: residual balance issues and strength, and chronic migraines Coronary artery disease involving false pass coronary artery of false pass heart without angina pectoris Assessment: ASA 81mg, s/p stent, following WHG, new EKG today showing bradycardia, pt asymptomatic.Last OV scanned into [facility]. Essential hypertension Assessment: hx, no current tx, hx gastric bypass Last 14 BP Last 14 Encounter BP Readings: Date: BP: 01/23/2024 112/72 10/06/2023 162/65 09/19/2023 110/58 08/18/2023 136/62 05/29/2022 150/121 05/22/2022 124/64 04/19/2022 86/52 04/15/2022 99/50 04/12/2022 132/64 04/06/2022 122/80 11/07/2021 149/65 10/31/2021 110/64 10/18/2021 132/62 10/18/2021 116/78 Mixed hyperlipidemia Assessment: c/w statin Obstructive sleep apnea Assessment: cw BiPap Gastroesophageal reflux disease without esophagitis Assessment: controlled on rx Acquired hypothyroidism Assessment: stable on rx DVT of upper extremity (deep vein thrombosis) (HCC) Assessment: daily ASA, provoked by surgery, tx with AC at the time Anxiety and depression Assessment: stable on rx per pt History of gastric bypass Assessment: hx Hx of sinus bradycardia Assessment: hx, asymptomatic, following cardiology, updated EKG no AV blocks noted Class 1 obesity with serious comorbidity and body mass index (BMI) of 31.0 to 31.9 in adult Assessment: Body mass index is 31.63 kg/m . Etienne Activity Status Index: METS: Climb a flight of stairs or walk up a hill (5.50 METs) DASI Score: 5.5 Patient denies any chest pain or undue shortness of breath with the above physical activity. Clinical Frailty Scale: 4. Apparently vulnerable STOP-Bang Score: Snores loudly Often feels tired, fatigued, or sleepy during the daytime Has been observed to stop breathing or choking/gasping during sleep Has or is being treated for high blood pressure Patient over 50 years old Has a large neck Male patient BMI less than or equal to 35 kg/m^2 STOP-Bang Score: 7 [id number] Score: Age: <65 Sex: male CHF history: No Hypertension history: Yes Stroke/TIA/thromboembolism history: Yes Vascular disease history: Yes Diabetes history: Yes [id number] Score: 5 ARISCAT Score: Age: 51-80 Preoperative SpO2: >=96% Respiratory infection in the last month: No Preoperative anemia: No Surgical incision: peripheral Duration of surgery: <2 hrs Emergency procedure: No ARISCAT Score: 3 ANESTHESIA FINDINGS: Intubation History: No history of difficult intubation Significant Anesthesia Considerations: none Airway History: No history of difficult airway I - PHYSICAL EVALUATION AIRWAY Patient intubated: No. Tracheostomy tube not present Mallampati: III. TM distance: >3 FB. Neck ROM: full ROM without neurological symptoms. Mouth opening: adequate. Short neck: no. Thick neck: yes Stapleton present: no Lip Bite Test: I Microretrognathia/Micronagthia/Recessed Chin: No DENTAL Dentures, upper: complete. Dentures, lower: complete. II - ANESTHESIA PLAN Anesthetic Plan: other Anesthetic plan additional comments: *PACC/TCI - anesthesia choice. Beta Freedom Monitoring Plan Post Procedure Analgesic Plan Prepared for Surgery: optimally prepared for surgery, pending [see comment]. Labs and ekg CONSULTS: Planned Anesthetic: other anesthesia choice The Following Tests/Procedures Have Been Initiated: Orders Placed This Encounter >BMP Standing Status: Future Standing Expiration Date: 04/23/2024 >CBC + AUTO DIFF Standing Status: Future Standing Expiration Date: 04/23/2024 >HGB A1c (Today or soon) Standing Status: Future Standing Expiration Date: 04/23/2024 metFORMIN (GLUCOPHAGE) 500 mg tablet Sig: Take 500 mg by mouth daily with breakfast. ECG COMPLETE Standing Status: Future Standing Expiration Date: 01/22/2025 ECG COMPLETE Order Comments: Ordered by an unspecified provider REASON FOR VISIT: Bradley Keys is a 63 year old male who is scheduled for Procedure(s): ARTHROSCOPY SHOULDER W/ LYSIS ADHESIONS (Left) at the request of Dr. Tino Zuleta for consultation. My final recommendation will be communicated back to the requesting physician by way of shared medical record or letter. Subjective The patient has the following: COVID-19 Immunization Status Overdue - Covid-19 Vaccine () Overdue since 11/16/2023 02/21/2022 Imm Admin: COVID-19 vaccine, age 12+ yr, bivalent ([facility]) 06/02/2020 Imm Admin: COVID-19 vaccine ([facility]) CHIEF COMPLAINT: Pre-op exam HPI: Bradley Keys is a 62 year old seen for PAC due to scheduled above surgery because of adhesive capsulitis of the right shoulder. 08/01/2023, Dr. Tino Zuleta Bradley Keys returns follow-up on severe adhesive capsulitis of the right shoulder. He underwent arthroscopic release of the right shoulder in May 2022. Although he did his stretching after this procedure he continued to have difficulty with his range of motion and now returns requesting further treatment. The left shoulder also is stiff and has not improved with stretching. REVIEW OF SYSTEMS: General: No weight loss, malaise or fevers. Neurological: +hx SDH Positive for: headaches (on rx and as needed, receiving Botox). 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 Respiratory: Positive for: obstructive sleep apnea and CPAP/BiPAP compliant. Negative for: asthma, COPD, pneumonia within 6 weeks, tobacco use and URI < 2 weeks. Cardiovascular: Positive for: anticoagulation therapy (ASA), CAD, DVT/PE (provoked), hyperlipidemia (on rx) and hypertension (on rx) Patient's last office visit was [facility]. The following tests and/or procedures were performed: cardiac stents. Negative for: abdominal aortic aneurysm, AICD/PPM, angina, arrhythmia, atrial fibrillation, chest pain, CHF, congenital heart defect, recent NM, murmur/valvular heart disease, PVD, open heart surgeryand valve surgery. GI: H/o gastric bypass Constipation, on rx Positive for: GERD (on rx) Negative for: abdominal pain, dysphagia, hepatitis, irritable bowel syndrome, inflammatory bowel disease, liver disease, nausea, pancreatitis, vomiting and ETOH >2 drinks/day. : No history of dysuria, frequency or incontinence, stones or chronic kidney disease. No difficulty urinating, nocturia > 1 time per night or hematuria. Endocrine: Positive for: diabetes mellitus, diabetic neuropathy and hypothyroidism (on rx). Patient's diabetesmellitus is controlled by oral agents. Hematology: Positive for: bruises/bleeds easily and chronic anti-coagulation/platelet meds. Patient is on anti-coagulation/platelet medication(s): Aspirin. Negative for: anemia, factor V Leiden and transfusion of at least 4 units within 72 hours prior to surgery. Oncology: No history of CA metastasis, chemo within 30 days, or radiotherapy within 90 days. No history of oncological symptoms or problems. Psych: Positive for: anxiety (on rx) and depression (on rx). Musculoskeletal: See HPI. Positive for: back pain (neck pain). Skin: Negative for lesions, rash and itching. Implanted Devices: No implanted devices. 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 no brain surgery , but needed rehab to learn to walk and talk again Coronary artery disease Diabetes (HCC) states no longer since gastric bypass with weight loss Hyperlipidemia Hypertension Hypothyroidism Obese Sleep apnea uses bypap Vitamin D deficiency PAST SURGICAL HISTORY Procedure Laterality Date CHOLECYSTECTOMY HX 2018 GASTRIC BYPASS HX 2018 HEMORRHOIDECTOMY INTERNAL RUBBER BAND LIGATIONS Hemorrhoidectomy MANJ W/ANES SHOULDER JOINT W/FIXATION APPARATUS Right 11/07/2021 Right shoulder manipulation under anesthesia with injection given right shoulder PAST SURGICAL HISTORY OF lymph node biopsy PAST SURGICAL HISTORY OF jonathan cyst on head PAST SURGICAL HISTORY OF 2018 hiatal hernia repair PAST SURGICAL HISTORY OF Bilateral 05/2021 Excess breast skin removal post gastric bypass 3- and abdominal skin removal 1- [facility] N/CARPAL TUNNEL SURG Right 11/07/2021 Right carpal tunnel release and Right shoulder manipulation under anesthesia REVISE MEDIAN N/CARPAL TUNNEL SURG Right 11/07/2021 Right carpal tunnel release REVISE MEDIAN N/CARPAL TUNNEL SURG Left 04/19/2022 Left Carpal tunnel release STENTS (SPECIFY) cardiac x 1 TONSILLECTOMY PRIMARY/SECONDARY Tonsillectomy FAMILY HISTORY Problem Relation Age of Onset Cancer Father lung Diabetes Mother Social History Tobacco Use Smoking status: Never Smokeless tobacco: Never Vaping Use Vaping status: Never Used Substance Use Topics Alcohol use: No Drug use: No Prior to Admission medications as of 01/23/24 1221 Medication Sig Last Dose Taking metFORMIN (GLUCOPHAGE) 500 mg tablet Take 500 mg by mouth daily with breakfast. Taking Yes docusate sodium (COLACE) 100 mg capsule Take 1 capsule by mouth as needed. Taking Yes magnesium oxide 400 mg magnesium cap Take 1 capsule by mouth once daily. Taking Yes gabapentin (NEURONTIN) 300 mg capsule Take 300 mg by mouth three times a day. Taking Yes acetaminophen (TYLENOL) 325 mg tablet Take 650 mg by mouth every 6 hours as needed. Taking Yes NURTEC ODT 75 mg disintegrating tablet TAKE 1 TABLET BY MOUTH DAILY NEEDED for onset OF migrainse, no more than 1 (ONE) dose in 24 hours DIRECTED FOR 30 DAYS Taking Yes aspirin 81 mg chewable tablet Take 81 mg by mouth once daily. Taking Yes blood sugar diagnostic (ONETOUCH VERIO TEST STRIPS) test strip Use to test glucose once daily as directed. DX: E11.42, non insulin dependent. Taking Yes OYSTER SHELL CALCIUM-VITAMIN D 500 mg(1,250mg) -200 unit per tablet Take 1 tablet by mouth once daily. Taking Yes lancets (ONE TOUCH DELICA) 33 gauge Use to test glucose once daily as directed. DX: E11.42, non insulin dependent. Taking Yes Blood-Glucose Meter (ONETOUCH VERIO METER) Use to test glucose once daily as directed. DX: E11.42, non insulin dependent. Taking Yes Zinc 50 mg tab Take 50 mg by mouth once daily. Taking Yes topiramate (TOPAMAX) 50 mg tablet Take 50 mg by mouth twice daily. Taking Yes atorvastatin (LIPITOR) 40 mg tablet Take 40 mg by mouth once daily. Taking Yes melatonin 3 mg tablet Take 2 tablets by mouth daily at bedtime. Taking Yes Cholecalciferol, Vitamin D3, 2,000 unit cap Take 2 capsules by mouth once daily. Taking Yes omeprazole (PRILOSEC) 20 mg capsule Take 20 mg by mouth once daily. Taking Yes citalopram (CELEXA) 20 mg tablet Take 30 mg by mouth once daily. Taking Yes levothyroxine (SYNTHROID) 100 mcg tablet Take 100 mcg by mouth daily before breakfast. Taking Yes cyanocobalamin, vitamin B-12, (VITAMIN B-12 ORAL) Take 500 Units by mouth two times a day. Taking Yes multivit-min/folic/vit K/lycop (ONE-A-DAY MEN'S MULTIVITAMIN ORAL) Take 1 tablet by mouth once daily. Taking Yes No medication comments found. ALLERGIES Allergen Reactions Celebrex [Celecoxib] blisters from head to toe Objective PHYSICAL EXAM: General: alert and oriented (x3), healthy appearance and obese. Pertinent negatives noted - not distressed. Skin: normal color, no rash or lesions. HEENT: EOM intact and pupils equal round. Pertinent negatives noted - no carotid bruit. Cardiovascular: regular rate and rhythm, normal S1 and S2, no rub, murmurs, or gallop. Respiratory: normal breath sounds, no wheezes or crackles. No chest wall deformity or tenderness. Abdomen: soft. Pertinent negatives noted - not tender. Extremities: no deformity, no edema or tenderness, no joint swelling or clubbing. Neurological: normal cognition and motor skills. Gait normal. No weakness or sensory deficit. PAIN ASSESSMENT: Pain Pain Level: 7 Pain Location: Shoulder-Right Description: Aching Duration Amount of Time: 1 Duration Units: Months Frequency: Intermittent Intervention/Comfort measure: Medication VITALS: BP 112/72 Pulse 47 Temp (Src) 97.8 (Temporal) Resp 14 Ht 5' 8 (1.73m) Wt 208 lb (94.3kg) SpO2 98% BMI 31.63 kg/(m^2). Diagnostic tests reviewed for today's visit: Lab Value Units Date High Low HB 14.3 g/dL 08/14/2023 17.0 13.0 HCT 43.1 % 08/14/2023 51.0 39.0 WBC 5.35 k/uL 08/14/2023 11.00 3.70 PLT 165 k/uL 08/14/2023 400 150 NA 139 mmol/L 09/19/2023 144 136 K 4.0 mmol/L 09/19/2023 5.1 3.7 GLUC 176 mg/dL 09/19/2023 99 74 BUN 19 mg/dL 09/19/2023 24 9 CREAT 0.97 mg/dL 09/19/2023 1.22 0.73 PTSEC No results within date range. INR No results within date range. APTT No results within date range. ALT 34 U/L 09/19/2023 54 10 AST 24 U/L 09/19/2023 40 14 TBILI 0.4 mg/dL 09/19/2023 1.3 0.2 TSH 1.130 mIU/L 08/14/2023 4.200 0.270 Lab Value Units Date High Low HCGQT No results within date range. UHCG No results within date range. HCG, BODY* No results within date range. Lab Value Units Date High Low ABORHD No results within date range. ABSCREEN No results within date range. Hemoglobin A1C (%) Date Value 08/14/2023 5.6 03/25/2019 5.3 11/29/2011 10.2 HBA1C, Nguyễn (%) Date Value 08/28/2011 10.3 10/02/2010 8.1 10/31/2009 11.9 08/01/2009 10.3 12/30/2008 9.6 Hemoglobin A1C (POCT) (%) Date Value 09/07/2020 5.3 08/26/2019 5.1 10/01/2018 5.2 06/01/2018 6.5 Recent Results (from the past 8760 hour(s)) ECG COMPLETE Collection Time: 01/23/24 1:30 PM Result Value Ventricular Rate 45 Atrial Rate 45 P-R Interval 186 QRS Duration 104 QT Interval 486 QTC Calculation (Bazett) 420 Calculated P [place] 47 Calculated R [place] 77 Calculated T [place] 43 Impression SINUS BRADYCARDIA OTHERWISE NORMAL ECG No results found for this or any previous visit (from the past 12919 hour(s)). Instructions Given to Patient: Instructions located in the after visit summary. Patient given verbal and written preop instructions and voices comprehension and compliance. SIGNATURE: Negin Kaufman APRN.CNP PATIENT NAME: Bradley Keys DATE: January 23, 2024 TIME: 11:36 AM PAGER/CONTACT #: [email or web address] History and physical note* Negin Kaufman APRN.CNP - 01/23/2024 11:36 AM EST Images from the original note were not included. [facility] HISTORY AND PHYSICAL EXAMINATION SERVICE DATE: 01/23/2024 SERVICE TIME: 12:32 PM PRIMARY CARE PHYSICIAN: Mandi Sandoval NP Assessment Patient has the following medical conditions which may affect vidya-operative course: Controlled type 2 diabetes mellitus with diabetic polyneuropathy, without long- term current use of insulin (HCC) Assessment: controlled on oral agent, new A1c pending Hemoglobin A1C (%) Date Value 08/14/2023 5.6 03/25/2019 5.3 Hemoglobin A1C (POCT) (%) Date Value 09/07/2020 5.3 Migraine Assessment: controlled on rx and rx as needed, receives botox, following neurology Subdural hemorrhage (HCC) Assessment: residual balance issues and strength, and chronic migraines Coronary artery disease involving false pass coronary artery of false pass heart without angina pectoris Assessment: ASA 81mg, s/p stent, following [facility], new EKG today showing bradycardia, pt asymptomatic.Last OV scanned into [facility]. Essential hypertension Assessment: hx, no current tx, hx gastric bypass Last 14 BP Last 14 Encounter BP Readings: Date: BP: 01/23/2024 112/72 10/06/2023 162/65 09/19/2023 110/58 08/18/2023 136/62 05/29/2022 150/121 05/22/2022 124/64 04/19/2022 86/52 04/15/2022 99/50 04/12/2022 132/64 04/06/2022 122/80 11/07/2021 149/65 10/31/2021 110/64 10/18/2021 132/62 10/18/2021 116/78 Mixed hyperlipidemia Assessment: c/w statin Obstructive sleep apnea Assessment: cw BiPap Gastroesophageal reflux disease without esophagitis Assessment: controlled on rx Acquired hypothyroidism Assessment: stable on rx DVT of upper extremity (deep vein thrombosis) (HCC) Assessment: daily ASA, provoked by surgery, tx with AC at the time Anxiety and depression Assessment: stable on rx per pt History of gastric bypass Assessment: hx Hx of sinus bradycardia Assessment: hx, asymptomatic, following cardiology, updated EKG no AV blocks noted Class 1 obesity with serious comorbidity and body mass index (BMI) of 31.0 to 31.9 in adult Assessment: Body mass index is 31.63 kg/m . Etienne Activity Status Index: METS: Climb a flight of stairs or walk up a hill (5.50 METs) DASI Score: 5.5 Patient denies any chest pain or undue shortness of breath with the above physical activity. Clinical Frailty Scale: 4. Apparently vulnerable STOP-Bang Score: Snores loudly Often feels tired, fatigued, or sleepy during the daytime Has been observed to stop breathing or choking/gasping during sleep Has or is being treated for high blood pressure Patient over 50 years old Has a large neck Male patient BMI less than or equal to 35 kg/m^2 STOP-Bang Score: 7 [id number] Score: Age: <65 Sex: male CHF history: No Hypertension history: Yes Stroke/TIA/thromboembolism history: Yes Vascular disease history: Yes Diabetes history: Yes [id number] Score: 5 ARISCAT Score: Age: 51-80 Preoperative SpO2: >=96% Respiratory infection in the last month: No Preoperative anemia: No Surgical incision: peripheral Duration of surgery: <2 hrs Emergency procedure: No ARISCAT Score: 3 ANESTHESIA FINDINGS: Intubation History: No history of difficult intubation Significant Anesthesia Considerations: none Airway History: No history of difficult airway I - PHYSICAL EVALUATION AIRWAY Patient intubated: No. Tracheostomy tube not present Mallampati: III. TM distance: >3 FB. Neck ROM: full ROM without neurological symptoms. Mouth opening: adequate. Short neck: no. Thick neck: yes Stapleton present: no Lip Bite Test: I Microretrognathia/Micronagthia/Recessed Chin: No DENTAL Dentures, upper: complete. Dentures, lower: complete. II - ANESTHESIA PLAN Anesthetic Plan: other Anesthetic plan additional comments: *PACC/TCI - anesthesia choice. Beta Freedom Monitoring Plan Post Procedure Analgesic Plan Prepared for Surgery: optimally prepared for surgery, pending [see comment]. Labs and ekg CONSULTS: Planned Anesthetic: other anesthesia choice The Following Tests/Procedures Have Been Initiated: Orders Placed This Encounter >BMP Standing Status: Future Standing Expiration Date: 04/23/2024 >CBC + AUTO DIFF Standing Status: Future Standing Expiration Date: 04/23/2024 >HGB A1c (Today or soon) Standing Status: Future Standing Expiration Date: 04/23/2024 metFORMIN (GLUCOPHAGE) 500 mg tablet Sig: Take 500 mg by mouth daily with breakfast. ECG COMPLETE Standing Status: Future Standing Expiration Date: 01/22/2025 ECG COMPLETE Order Comments: Ordered by an unspecified provider REASON FOR VISIT: Bradley Keys is a 63 year old male who is scheduled for Procedure(s): ARTHROSCOPY SHOULDER W/ LYSIS ADHESIONS (Left) at the request of Dr. Tino Zuleta for consultation. My final recommendation will be communicated back to the requesting physician by way of shared medical record or letter. Subjective The patient has the following: COVID-19 Immunization Status Overdue - Covid-19 Vaccine () Overdue since 11/16/2023 02/21/2022 Imm Admin: COVID-19 vaccine, age 12+ yr, bivalent ([facility]) 06/02/2020 Imm Admin: COVID-19 vaccine ([facility]) CHIEF COMPLAINT: Pre-op exam HPI: Bradley Keys is a 62 year old seen for PAC due to scheduled above surgery because of adhesive capsulitis of the right shoulder. 08/01/2023, Dr. Tino Zuleta Bradley Keys returns follow-up on severe adhesive capsulitis of the right shoulder. He underwent arthroscopic release of the right shoulder in May 2022. Although he did his stretching after this procedure he continued to have difficulty with his range of motion and now returns requesting further treatment. The left shoulder also is stiff and has not improved with stretching. REVIEW OF SYSTEMS: General: No weight loss, malaise or fevers. Neurological: +hx SDH Positive for: headaches (on rx and as needed, receiving Botox). 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 Respiratory: Positive for: obstructive sleep apnea and CPAP/BiPAP compliant. Negative for: asthma, COPD, pneumonia within 6 weeks, tobacco use and URI < 2 weeks. Cardiovascular: Positive for: anticoagulation therapy (ASA), CAD, DVT/PE (provoked), hyperlipidemia (on rx) and hypertension (on rx) Patient's last office visit [facility]. The following tests and/or procedures were performed: cardiac stents. Negative for: abdominal aortic aneurysm, AICD/PPM, angina, arrhythmia, atrial fibrillation, chest pain, CHF, congenital heart defect, recent NM, murmur/valvular heart disease, PVD, open heart surgeryand valve surgery. GI: H/o gastric bypass Constipation, on rx Positive for: GERD (on rx) Negative for: abdominal pain, dysphagia, hepatitis, irritable bowel syndrome, inflammatory bowel disease, liver disease, nausea, pancreatitis, vomiting and ETOH >2 drinks/day. : No history of dysuria, frequency or incontinence, stones or chronic kidney disease. No difficulty urinating, nocturia > 1 time per night or hematuria. Endocrine: Positive for: diabetes mellitus, diabetic neuropathy and hypothyroidism (on rx). Patient's diabetesmellitus is controlled by oral agents. Hematology: Positive for: bruises/bleeds easily and chronic anti-coagulation/platelet meds. Patient is on anti-coagulation/platelet medication(s): Aspirin. Negative for: anemia, factor V Leiden and transfusion of at least 4 units within 72 hours prior to surgery. Oncology: No history of CA metastasis, chemo within 30 days, or radiotherapy within 90 days. No history of oncological symptoms or problems. Psych: Positive for: anxiety (on rx) and depression (on rx). Musculoskeletal: See HPI. Positive for: back pain (neck pain). Skin: Negative for lesions, rash and itching. Implanted Devices: No implanted devices. 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 no brain surgery , but needed rehab to learn to walk and talk again Coronary artery disease Diabetes (HCC) states no longer since gastric bypass with weight loss Hyperlipidemia Hypertension Hypothyroidism Obese Sleep apnea uses bypap Vitamin D deficiency PAST SURGICAL HISTORY Procedure Laterality Date CHOLECYSTECTOMY HX 2018 GASTRIC BYPASS HX 2018 HEMORRHOIDECTOMY INTERNAL RUBBER BAND LIGATIONS Hemorrhoidectomy MANJ W/ANES SHOULDER JOINT W/FIXATION APPARATUS Right 11/07/2021 Right shoulder manipulation under anesthesia with injection given right shoulder PAST SURGICAL HISTORY OF lymph node biopsy PAST SURGICAL HISTORY OF jonathan cyst on head PAST SURGICAL HISTORY OF 2018 hiatal hernia repair PAST SURGICAL HISTORY OF Bilateral 05/2021 Excess breast skin removal post gastric bypass - and abdominal skin removal - REVISE MEDIAN N/CARPAL TUNNEL SURG Right 11/07/2021 Right carpal tunnel release and Right shoulder manipulation under anesthesia REVISE MEDIAN N/CARPAL TUNNEL SURG Right 11/07/2021 Right carpal tunnel release REVISE MEDIAN N/CARPAL TUNNEL SURG Left 04/19/2022 Left Carpal tunnel release STENTS (SPECIFY) cardiac x 1 TONSILLECTOMY PRIMARY/SECONDARY <AGE 12 Tonsillectomy FAMILY HISTORY Problem Relation Age of Onset Cancer Father lung Diabetes Mother Social History Tobacco Use Smoking status: Never Smokeless tobacco: Never Vaping Use Vaping status: Never Used Substance Use Topics Alcohol use: No Drug use: No Prior to Admission medications as of 01/23/24 1221 Medication Sig Last Dose Taking metFORMIN (GLUCOPHAGE) 500 mg tablet Take 500 mg by mouth daily with breakfast. Taking Yes docusate sodium (COLACE) 100 mg capsule Take 1 capsule by mouth as needed. Taking Yes magnesium oxide 400 mg magnesium cap Take 1 capsule by mouth once daily. Taking Yes gabapentin (NEURONTIN) 300 mg capsule Take 300 mg by mouth three times a day. Taking Yes acetaminophen (TYLENOL) 325 mg tablet Take 650 mg by mouth every 6 hours as needed. Taking Yes NURTEC ODT 75 mg disintegrating tablet TAKE 1 TABLET BY MOUTH DAILY NEEDED for onset OF migrainse, no more than 1 (ONE) dose in 24 hours DIRECTED FOR 30 DAYS Taking Yes aspirin 81 mg chewable tablet Take 81 mg by mouth once daily. Taking Yes blood sugar diagnostic (ONETOUCH VERIO TEST STRIPS) test strip Use to test glucose once daily as directed. DX: E11.42, non insulin dependent. Taking Yes OYSTER SHELL CALCIUM-VITAMIN D 500 mg(1,250mg) -200 unit per tablet Take 1 tablet by mouth once daily. Taking Yes lancets (ONE TOUCH DELICA) 33 gauge Use to test glucose once daily as directed. DX: E11.42, non insulin dependent. Taking Yes Blood-Glucose Meter (ONETOUCH VERIO METER) Use to test glucose once daily as directed. DX: E11.42, non insulin dependent. Taking Yes Zinc 50 mg tab Take 50 mg by mouth once daily. Taking Yes topiramate (TOPAMAX) 50 mg tablet Take 50 mg by mouth twice daily. Taking Yes atorvastatin (LIPITOR) 40 mg tablet Take 40 mg by mouth once daily. Taking Yes melatonin 3 mg tablet Take 2 tablets by mouth daily at bedtime. Taking Yes Cholecalciferol, Vitamin D3, 2,000 unit cap Take 2 capsules by mouth once daily. Taking Yes omeprazole (PRILOSEC) 20 mg capsule Take 20 mg by mouth once daily. Taking Yes citalopram (CELEXA) 20 mg tablet Take 30 mg by mouth once daily. Taking Yes levothyroxine (SYNTHROID) 100 mcg tablet Take 100 mcg by mouth daily before breakfast. Taking Yes cyanocobalamin, vitamin B-12, (VITAMIN B-12 ORAL) Take 500 Units by mouth two times a day. Taking Yes multivit-min/folic/vit K/lycop (ONE-A-DAY MEN'S MULTIVITAMIN ORAL) Take 1 tablet by mouth once daily. Taking Yes No medication comments found. ALLERGIES Allergen Reactions Celebrex [Celecoxib] blisters from head to toe Objective PHYSICAL EXAM: General: alert and oriented (x3), healthy appearance and obese. Pertinent negatives noted - not distressed. Skin: normal color, no rash or lesions. HEENT: EOM intact and pupils equal round. Pertinent negatives noted - no carotid bruit. Cardiovascular: regular rate and rhythm, normal S1 and S2, no rub, murmurs, or gallop. Respiratory: normal breath sounds, no wheezes or crackles. No chest wall deformity or tenderness. Abdomen: soft. Pertinent negatives noted - not tender. Extremities: no deformity, no edema or tenderness, no joint swelling or clubbing. Neurological: normal cognition and motor skills. Gait normal. No weakness or sensory deficit. PAIN ASSESSMENT: Pain Pain Level: 7 Pain Location: Shoulder-Right Description: Aching Duration Amount of Time: 1 Duration Units: Months Frequency: Intermittent Intervention/Comfort measure: Medication VITALS: BP 112/72 Pulse 47 Temp (Src) 97.8 (Temporal) Resp 14 Ht 5' 8 (1.73m) Wt 208 lb (94.3kg) SpO2 98% BMI 31.63 kg/(m^2). Diagnostic tests reviewed for today's visit: Lab Value Units Date High Low HB 14.3 g/dL 08/14/2023 17.0 13.0 HCT 43.1 % 08/14/2023 51.0 39.0 WBC 5.35 k/uL 08/14/2023 11.00 3.70 PLT 165 k/uL 08/14/2023 400 150 NA 139 mmol/L 09/19/2023 144 136 K 4.0 mmol/L 09/19/2023 5.1 3.7 GLUC 176 mg/dL 09/19/2023 99 74 BUN 19 mg/dL 09/19/2023 24 9 CREAT 0.97 mg/dL 09/19/2023 1.22 0.73 PTSEC No results within date range. INR No results within date range. APTT No results within date range. ALT 34 U/L 09/19/2023 54 10 AST 24 U/L 09/19/2023 40 14 TBILI 0.4 mg/dL 09/19/2023 1.3 0.2 TSH 1.130 mIU/L 08/14/2023 4.200 0.270 Lab Value Units Date High Low HCGQT No results within date range. UHCG No results within date range. HCG, BODY* No results within date range. Lab Value Units Date High Low ABORHD No results within date range. ABSCREEN No results within date range. Hemoglobin A1C (%) Date Value 08/14/2023 5.6 03/25/2019 5.3 11/29/2011 10.2 HBA1C, Nguyễn (%) Date Value 08/28/2011 10.3 10/02/2010 8.1 10/31/2009 11.9 08/01/2009 10.3 12/30/2008 9.6 Hemoglobin A1C (POCT) (%) Date Value 09/07/2020 5.3 08/26/2019 5.1 10/01/2018 5.2 06/01/2018 6.5 Recent Results (from the past 8760 hour(s)) ECG COMPLETE Collection Time: 01/23/24 1:30 PM Result Value Ventricular Rate 45 Atrial Rate 45 P-R Interval 186 QRS Duration 104 QT Interval 486 QTC Calculation (Bazett) 420 Calculated P B[place] 47 Calculated R [place] 77 Calculated T B[place] 43 Impression SINUS BRADYCARDIA OTHERWISE NORMAL ECG No results found for this or any previous visit (from the past 85118 hour(s)). Instructions Given to Patient: Instructions located in the after visit summary. Patient given verbal and written preop instructions and voices comprehension and compliance. SIGNATURE: Negin Kaufman APRN.CNP PATIENT NAME: Bradley Keys DATE: January 23, 2024 TIME: 11:36 AM PAGER/CONTACT #: [facility] Telephone encounter Note * Telephone Encounter - Lakisha Nicolas - 01/20/2024 8:27 AM EST Patient is scheduled for surgery on Friday. He had a Botox injection in his head this past Friday for chronic migraines. He wanted to make sure you were aware and also wanted to make sure this wasn'tgoing to effect his surgery in any way. Lakisha Roberto [facility]11-05-2024 Miscellaneous Notes* Telephone Encounter - Lakisha Nicolas - 01/20/2024 8:27 AM EST Patient is scheduled for surgery on Friday. He had a Botox injection in his head this past Friday for chronic migraines. He wanted to make sure you were aware and also wanted to make sure this wasn'tgoing to effect his surgery in any way. Lakisha Roberto documented in this encounterM[facility]11-04-[facility] History of Present illness Narrative* Dony Mukherjee Indira, BUTTON BREAKER - 01/19/2024 1:00 PM EST Images from the original note were not included. Procedure - Therapeutic injection, Botulinum Toxin, Chronic Migraine Indication Chronic Migraine Consent Patients full name and date of verified with patient prior to procedure. The procedure was explained to the patient. Informed consent for the procedure was obtained and risk associated with Botox treatments. Any further questions were answered during this visit. Site Prep The areas to be injected were sterilized with 70% isopropanol. Buy and Bill Lot # [id number] Expiration: 10/2025 Sodium Chloride Lot # [id number] Expiration: 11/16/2023 Dilution Per 100 units diluted with 1mL of 0.9% Sodium Chloride Procedure Procerus 5 units Slice Cutting Machine Operator Helper, L 5 units Slice Cutting Machine Operator Helper, R 5 units Frontalis, L 10 units (2 sites) Frontalis, R 10 units (2 sites) Temporalis, L 20 units (4 sites) Temporalis, R 20 units (4 sites) Occipitalis, L 15 units (3 sites) Occipitalis, R 15 units (3 sites) Paraspinalis cervicis, L 10 units (2 sites) Paraspinalis cervicis, R 10 units (2 sites) Trapezius, L 15 units (3 sites) Trapezius, R 15 units (3 sites) TOTAL UNITS INJECTED 155 WASTED 45 Disposition The patient tolerated the procedure well. Post-op care was discussed. The patient is aware that duration of action is 3 months, and that delay in reinjection often results in recurrence of migraines. Patient Care Instructions Do not rub massage or touch injection sites for 24 hours. Do not lay down for 4 hours after treatment. Avoid hot showers, exercise, and spicy foods for 24 hours to avoid bruising and minimize redness. Discussed signs and symptoms of anaphylaxis and when to seek emergent treatment. Procedure Codes 28993 Chemodenervation of Muscle Neck, Modifiers: 50 72308 Destroy Nerve, Face Muscle, Modifiers: 50 J0585 Botulinum toxin a per unit, Units: 200 Follow Up 3 months Botox documented in this encounterSt. Louis Behavior[facility] [id number] Note* Addendum Note - Desiree Gill PA-C - 01/07/2024 4:05 PM EDTAddended by: DESIREE GILL on: 01/07/2024 04:05 PM Modules accepted: Orders [facility]10-[facility] Miscellaneous Notes* Addendum Note - Desiree Gill PA-C - 01/07/2024 4:05 PM EDTAddended by: DESIREE GILL on: 01/07/2024 04:05 PM Modules accepted: Orders documented in this encounterMari[facility]10-21-2024 NoteHNO ID: [id number] Author: TINO ZULETA MD Service: ? Author Type: Physician Type: Progress Notes Filed: 01/05/2024 09:08 Note Text: PAIN EVALUATION 01/02/2024 1440 Pain Location: Shoulder-Right Description: Sore Frequency: Intermittent Comments: last R-shoulder CSI:10/17/23 Encounter Diagnosis ICD-10-CM 1. Adhesive capsulitis of left shoulder M75.02 Bradley Keys returns with continued stiffness of the left shoulder. He has done well with recovery from right shoulder arthroscopic release The left shoulder has not improved despite doing long-term physical therapy and he would like to consider surgery. EXAM: Left shoulder unchanged motion, limited in all directions [id number](Sac) IMAGING: I personally reviewed the MRI of the right shoulder in the office today, and I am in agreement with the radiologist's interpretation with the following modifications: None IMPRESSION: Low-grade partial thickness articular surface tear LEFT posterior supraspinatus tendon. Background rotator cuff tendinosis. PLAN: Bradley Keys presents today with persistent left shoulder stiffness due to adhesive capsulitis. The current condition represents a significant risk of loss of function of the extremity due to the worsening pain and diminished use of the arm at this time. Based on my evaluation today, I do not feel that nonsurgical interventions including physical therapy, activity modification, and medical management are likely to provide this patient with an acceptable level of improvement in functional use of the arm, nor significant pain relief. After thorough review of history, examination findings, and imaging, we discussed surgical intervention today which would be arthroscopic capsular release. I described the procedure in detail as well as the expected healing time of 3-6 months and physical therapy regimen following surgery, likely for much of this time. Informed consent was discussed in detail and signed in the office today. Significant risks of surgery include general anesthesia, and those from surgery including infection, nerve injury, bleeding, procedure failure and possible need for repeat procedure. No guarantees as to the outcome of surgery were given or implied. Surgery will be scheduled for the next available date. Tino Zuleta MD Shoulder AND Elbow Surgeon Department of Orthopaedic Surgery [facility]08-30-2024 History of Present illness Narrative* Tino Zuleta MD - 11/14/2023 10:02 AM EDT PAIN EVALUATION 11/14/2023 0950 Pain Level: 0 Pain Location: Shoulder-Right Intervention/Comfort measure: Exercise Comments: last R-shoulder CSI:10/17/23 Bradley Keys presents today for: Second post-surgery follow up CHANGES SINCE LAST VISIT: feels his range of motion has improved significantly, has been doing PT exercises at home. There were no vitals taken for this visit. EXAMINATION FINDINGS: He is able to easily range the arm overhead and rotationally ROM [phone] (L4) Full rotator cuff strength IMAGING: No imaging today MEDICAL DECISION MAKING: Functional Plan: Continue PT exercises at home, he would prefer to stop formal therapy Tylenol/NSAID use encouraged for control of pain. Return in 6 weeks for repeat examination. Tino Zuleta MD Shoulder & Elbow Surgeon Department [facility]opa[facility] documented in this encounterMarietta [facility]08-02-2024 History of Present illness Narrative* Tino Zuleta MD - 10/17/2023 1:37 PM EDTAssociated Order(s): Large Joint Arthro/Inj: R shoulder joint Post-Procedure Diagnose(s): S/P shoulder surgery; Adhesive capsulitis of right shoulder Images from the original note were not included. PAIN EVALUATION 10/17/2023 1000 Pain Level: 8 Pain Location: Shoulder-Right Description: Tightness;Tenderness;Sore;Dull;Aching Duration Amount of Time: -- DOS: 10/06/23 Frequency: Continuous Intervention/Comfort measure: -- ice, pain meds, PT Encounter Diagnosis ICD-10-CM 1. Adhesive capsulitis of right shoulder M75.01 2. S/P shoulder surgery Z98.890 oxyCODONE-acetaminophen (PERCOCET) 5-325 mg tablet Bradley Keys returns for first follow-up after right shoulder arthroscopic capsular release. This was a revision of a previous release surgery. He is having significant pain and difficulty with stretching as a result of his pain. I examined his right shoulder today. Incisions are healing. There is moderate edema of the shoulderand upper arm. Passive forward elevation 90 degrees with significant discomfort. Difficulty with internal and external rotation again due to guarding and discomfort today. PLAN: We discussed that he is having significant discomfort after surgery which is limiting his ability to stretch. Offered him a corticosteroid injection today which was administered in the office. Returnin 3 weeks for repeat examination. He will continue physical therapy and should stretch several times daily. Large Joint Arthro/Inj: R shoulder joint 10/17/2023 1:38 PM The procedure site was prepped in the usual sterile fashion. Site: R shoulder joint Medications: 80 mg triamcinolone acetonide 40 mg/mL Anesthetics: 4 mL bupivacaine (PF) 0.25 % (2.5 mg/mL) Outcome: Tolerated well, no immediate complications Post-injection instructions were reviewed with the patient and the patient voiced understanding of these instructions. Tino Zuleta MD Shoulder & Elbow Surgeon Department of Orthopaedic Surgery [facility] documented in this encounterMarietta [facility]07-22-2024 Hospital Discharge instructions* Discharge Instr - Other Orders* Desiree Gill PA-C - 10/06/2023 8:34 AM EDT Shoulder Surgery Discharge Instructions Your Shoulder Surgeon: Tino Zuleta MD Your Procedure: Shoulder Arthroscopy What to Expect After Surgery: - Your postoperative nerve block will wear off later today or this evening. When the arm feels tingly, this indicates that the block is wearing off and you should take your pain medicine. If you go to bed with a numb arm, take your pain medication before bed to avoid waking up in severe pain. - Your arm and chest will become bruised and swollen. This is normal, and is related to the surgical procedure. - Sleeping in a recliner chair or propped on pillows in bed will be most comfortable. - Use ice packs or cold water machine to make the shoulder more comfortable and to reduce swelling. - You may take an anti-inflammatory medication (NSAID) in addition to your pain medicine. Postoperative Dressing: - You should remove your large outer bandage tomorrow. Steri-strips or skin glue will cover the incisions, and should remain in place. You may shower after three (3) days, but avoid submerging the shoulder. Activity: - Discontinue sling once nerve block wears off. - You should gently stretch the shoulder according to the instructions given to you by your physical therapist. Postoperative Clinic Visit: - You should been seen by Dr. Zuleta or by Kirstin Gill PA-C, within 1-2 weeks following surgery. - The date an time of your visit is usually given to you at the time you schedule your surgery. When to be Concerned: - If your pain is not controlled with your medication, please call the office for further instructions. Avoid visits to the Emergency Room, as often these visits only result in being given instructions to call your surgeon's office. - If you experience drainage outside of your bandage, or if you notice redness spreading around your incision area, please call the office to find out whether you should move up your postoperative appointment to an earlier date. - If you fall or otherwise injure your shoulder and you are concerned that you may have fractured the shoulder or damaged your repair, please call the office to find out about scheduling x-rays or anadditional office visit. If you have any other questions, please contact Dr. Zuleta's city secretary, Gisela, at .You can also reach the office using [employer]. documented in this encounterMarietta [facility]07-22-2024 NoteHNO ID: [id number] Author: DEMETRIUS MURRELL APRN.PLANOGRAPH OPERATOR Service: Anesthesiology Author Type: Nurse Veterinarian Epidemiologist Type: Anesthesia Procedure Notes Filed: 10/06/2023 07:58 Note Text: ANESTHESIOLOGY PROCEDURE NOTE Airway General Information Procedure Start Time/Medication Administration: 10/06/2023 7:40 AM Procedure End Time: 10/06/2023 7:42 AM Patient location during procedure: OR Timeout Performed Pre-procedure: timeout performed Consent Obtained: Yes Patient identity confirmed: arm band Staffing PLANOGRAPH OPERATOR: Demetrius Murrell APRN.PLANOGRAPH OPERATOR Performed by: ROBERT Indications and Patient Condition Indications for airway management: anesthesia Preoxygenated: yes anesthesia circuit Patient position: sniffing Method: asleep Cricoid Pressure: Yes Manual In-Line Stabilization: No Difficult Mask: No Final Airway Details Final airway type: endotracheal airway Final Endotracheal Airway: ETT Cuffed: yes Successful intubation technique: direct laryngoscopy Endotracheal tube insertion site: oral Blade: Tracey Blade size: #4 ETT size (mm): 7.5 Measured from: teeth Measurement (cm): 22 Placement verified by: chest auscultation and capnometry Cormack-Lehane Classification: grade I - full view of glottis Number of attempts at approach: 1 Failed airway: no Unrecognized esophageal intubation: no Airway not difficult SIGNATURE: Demetrius Murrell APRN.CRNA PATIENT NAME: Bradley Keys DATE: October 06, 2023 TIME: 7:57 AM CSN: [id number] History and physical note * Tino Zuleta MD - 10/06/2023 7:33 AM EDT UPDATED HISTORY AND PHYSICAL EXAMINATION SERVICE DATE: 10/06/2023 SERVICE TIME: 7:34 AM PHYSICAL EXAM MUST BE COMPLETED ON ADMISSION The History and Physical (completed in the past 30 days) has been reviewed and the patient has beenexamined. The contents accurately reflect the patient's condition with the following additions or revisions since the H&P was completed. Examination indicates no changes. This H&P can be found in the Electronic Medical Record dated 09/19/23. SIGNATURE: Tino Zuleta MD PATIENT NAME: Bradley Keys DATE: October 06, 2023 TIME: 7:34 AM [facility] Work Phone: 1(367) 442-595607-22-2024 History and physical note* Tino Zuleta MD - 10/06/2023 7:33 AM EDT UPDATED HISTORY AND PHYSICAL EXAMINATION SERVICE DATE: 10/06/2023 SERVICE TIME: 7:34 AM PHYSICAL EXAM MUST BE COMPLETED ON ADMISSION The History and Physical (completed in the past 30 days) has been reviewed and the patient has beenexamined. The contents accurately reflect the patient's condition with the following additions or revisions since the H&P was completed. Examination indicates no changes. This H&P can be found in the Electronic Medical Record dated 09/19/23. SIGNATURE: Tino Zuleta MD PATIENT NAME: Bradley Keys DATE: October 06, 2023 TIME: 7:34 AM documented in this encounterMarietta [facility]07-22-2024 Surgery Surgical operation note* Operative Report - Tino Zuleta MD - 10/06/2023 7:32 AM EDT OPERATIVE/PROCEDURE REPORT LOG ID: [id number] SURGERY/PROCEDURE DATE: 10/06/2023 INCISION/PROCEDURE START TIME: 8:10 AM INCISION CLOSE/PROCEDURE END TIME: 8:28 AM SURGEON(S)/PROCEDURALIST(S) AND WIND UP WORKER(S): Surgeon(s) and Role: * Tino Zuleta MD - Primary * Osmany Bassett MD - Resident - Assisting Nurse Practitioner: Darcie Espinoza APRN.IN HOUSE COUNSEL Physician Responder: Desiree Gill PA-C SURGERY/PROCEDURE(S): Right shoulder arthroscopic capsular release and manipulation ANESTHESIA: General SURGERY/PROCEDURE DETAILS: Bradley Keys is a 62 year old man who had initially undergone right shoulder arthroscopic capsular release with manipulation in 2022 but unfortunately continued to have stiffness following surgery and required continued management of the right shoulder with physical therapy and daily home stretching. When this failed to provide him with a good outcome he returned to the office to discuss possible revision surgery. After assessing his full range of motion and limited response to the first procedure I did offer him revision arthroscopic capsular release with manipulation. Risk benefits and alternatives to the procedure were discussed in the office prior to scheduling surgery. He was scheduled for the next available surgical date. Patient was greeted in the presurgical holding area. Informed consent was reviewed. The right shoulder was marked as the operative site. Presurgical meeting was held and he was then taken to the operating room and positioned supine on operating table. General anesthesia was induced with endotracheal intubation. He was placed in the beachchair position with all bony prominences padded. The right upper extremity was prepped and draped in standard sterile fashion. Presurgical antibiotic was administered. Presurgical timeout procedure was performed. I began the procedure by making a standard posterior portal and introducing the arthroscope using his previous incision. Upon entering the joint there was no erythema or inflammation. There was a small amount of scar tissue within the rotator interval. The biceps tendon was intact. There was no rotator cuff tear of subscapularis or supraspinatus. There was minimal fraying of the labrum and intactglenoid and humeral cartilage. I made an anterior portal using outside in technique after localizing the spinal needle. I introduced the electrothermal probe and shaver to release the rotator interval. The electrothermal probe was used to release the anterior superior capsule over the glenoid and behind the glenoid labrum reaching to approximately the 10 o'clock position posteriorly. There was nofurther release of the capsule necessary anteriorly. I introduced the arthroscope into the anteriorportal and assessed the posterior capsule. This was not inflamed and appeared normal. The arthroscope was then removed and placed in the subacromial space. I made a lateral portal using needle localiz ation. Moderate amount of scar tissue was released from the subacromial space and the rotator cuff insertion. There was no apparent tearing of the supraspinatus tendon. There was no erythema or inflammation to suggest ongoing adhesive capsulitis. The arthroscope was removed. A gentle manipulation of the right shoulder was then performed. With palpable and audible releasingof adhesions I was able to obtain 180 degrees of elevation and 90 degrees of both internal and external rotation with the arm in 90 degrees of abduction. I was satisfied with this and this concluded the procedure. Portal incisions were closed with Monocryl suture. Dry sterile dressing was applied to the right shoulder. He was placed in a shoulder sling and awakened from anesthesia. He was taken to recovery in good condition. No qualified resident/fellow was available. press assistant, YOLANDE Fierro, assisted with patient positioning, retraction and assistance during the procedure, as well as deep and superficial wound closure. PRE-OP/PRE-PROCEDURE DIAGNOSIS: Right shoulder adhesive capsulitis POST-OP/POST-PROCEDURE DIAGNOSIS: Same as Preop ESTIMATED BLOOD LOSS: 10 mls SPECIMENS: None IMPLANTABLE DEVICES: NONE DRAINS: None COMPLICATIONS: None CLOSURE TECHNIQUE: Primary PARTICIPATION IN SURGERY/PROCEDURE: No qualified resident/fellow was available. SIGNATURE: Tino Zuleta MD PATIENT NAME: Bradley Keys DATE: October 06, 2023 TIME: 9:27 AM [facility]07-22-[facility] Surgical operation note* Operative Report - Tino Zuleta MD - 10/06/2023 7:32 AM EDT OPERATIVE/PROCEDURE REPORT LOG ID: [id number] SURGERY/PROCEDURE DATE: 10/06/2023 INCISION/PROCEDURE START TIME: 8:10 AM INCISION CLOSE/PROCEDURE END TIME: 8:28 AM SURGEON(S)/PROCEDURALIST(S) AND WIND UP WORKER(S): Surgeon(s) and Role: * Tino Zuleta MD - Primary * Osmany Bassett MD - Resident - Assisting Nurse Practitioner: Darcie Espinoza APRN.[facility] Physician Responder: Desiree Gill PA-C SURGERY/PROCEDURE(S): Right shoulder arthroscopic capsular release and manipulation ANESTHESIA: General SURGERY/PROCEDURE DETAILS: Bradley Keys is a 62 year old man who had initially undergone right shoulder arthroscopic capsular release with manipulation in 2022 but unfortunately continued to have stiffness following surgery and required continued management of the right shoulder with physical therapy and daily home stretching. When this failed to provide him with a good outcome he returned to the office to discuss possible revision surgery. After assessing his full range of motion and limited response to the first procedure I did offer him revision arthroscopic capsular release with manipulation. Risk benefits and alternatives to the procedure were discussed in the office prior to scheduling surgery. He was scheduled for the next available surgical date. Patient was greeted in the presurgical holding area. Informed consent was reviewed. The right shoulder was marked as the operative site. Presurgical meeting was held and he was then taken to the operating room and positioned supine on operating table. General anesthesia was induced with endotracheal intubation. He was placed in the beachchair position with all bony prominences padded. The right upper extremity was prepped and draped in standard sterile fashion. Presurgical antibiotic was administered. Presurgical timeout procedure was performed. I began the procedure by making a standard posterior portal and introducing the arthroscope using his previous incision. Upon entering the joint there was no erythema or inflammation. There was a small amount of scar tissue within the rotator interval. The biceps tendon was intact. There was no rotator cuff tear of subscapularis or supraspinatus. There was minimal fraying of the labrum and intactglenoid and humeral cartilage. I made an anterior portal using outside in technique after localizing the spinal needle. I introduced the electrothermal probe and shaver to release the rotator interval. The electrothermal probe was used to release the anterior superior capsule over the glenoid and behind the glenoid labrum reaching to approximately the 10 o'clock position posteriorly. There was nofurther release of the capsule necessary anteriorly. I introduced the arthroscope into the anteriorportal and assessed the posterior capsule. This was not inflamed and appeared normal. The arthroscope was then removed and placed in the subacromial space. I made a lateral portal using needle localiz ation. Moderate amount of scar tissue was released from the subacromial space and the rotator cuff insertion. There was no apparent tearing of the supraspinatus tendon. There was no erythema or inflammation to suggest ongoing adhesive capsulitis. The arthroscope was removed. A gentle manipulation of the right shoulder was then performed. With palpable and audible releasingof adhesions I was able to obtain 180 degrees of elevation and 90 degrees of both internal and external rotation with the arm in 90 degrees of abduction. I was satisfied with this and this concluded the procedure. Portal incisions were closed with Monocryl suture. Dry sterile dressing was applied to the right shoulder. He was placed in a shoulder sling and awakened from anesthesia. He was taken to recovery in good condition. No qualified resident/fellow was available. press assistant, YOLANDE Fierro, assisted with patient positioning, retraction and assistance during the procedure, as well as deep and superficial wound closure. PRE-OP/PRE-PROCEDURE DIAGNOSIS: Right shoulder adhesive capsulitis POST-OP/POST-PROCEDURE DIAGNOSIS: Same as Preop ESTIMATED BLOOD LOSS: 10 mls SPECIMENS: None IMPLANTABLE DEVICES: NONE DRAINS: None COMPLICATIONS: None CLOSURE TECHNIQUE: Primary PARTICIPATION IN SURGERY/PROCEDURE: No qualified resident/fellow was available. SIGNATURE: Tino Zuleta MD PATIENT NAME: Bradley Keys DATE: October 06, 2023 TIME: 9:27 AM [facility] NoteHNO ID: [id number] Author: MRAGA PIERCE MD Service: Anesthesiology Author Type: Anesthesiologist Type: Anesthesia Procedure Notes Filed: 10/06/2023 07:10 Note Text: ANESTHESIOLOGY PROCEDURE NOTE Peripheral Nerve Block General Information Procedure Start Time/Medication Administration: 10/06/2023 7:09 AM Procedure End time: 10/06/2023 7:05 AM Patient location during procedure: induction room Timeout Performed Pre-procedure: timeout performed Consent Obtained: Yes Patient identity confirmed: arm band and patient Reason for block: post-op pain management/at surgeon's request Staffing Anesthesiologist: Marga Pierce MD Performed by: anesthesiologist Preparation Sterility Preparation: hand hygiene performed prior to procedure, sterile gloves, drapes, and procedure tray, surgical cap used, mask used, sterile drape used during line insertion, skin prep agent completely dried prior to procedure Site Prep: Chloraprep Pre-Procedure Neuro Exam Location: RUE Sensory: intact Motor: intact Procedure Details Patient Position: sitting Monitoring: Pulse OX, EKG and NIBP Block Type Approach: supraclavicular Laterality: right Injection Technique: single-shot Ultrasound Guided: Yes Image in Chart: yes Local Infiltration: Yes Needle Needle Type: echogenic Needle Gauge: 22 G Needle Localization: ultrasound Assessment Injection assessment: negative aspiration and local visualized surrounding nerve on ultrasound Post-Procedure Neuro Exam Expected Regional Anesthesia: Yes Medications Administered bupivacaine liposome (PF) 1.3 % (13.3 mg/mL) injection (EXPAREL) - INFILTRATION 133 mg - 10/06/2023 7:09:00 AM bupivacaine (PF) 0.5 % (5 mg/mL) injection - peripheral nerve block 10 mL - 10/06/2023 7:09:00 AM SIGNATURE: Marga Pierce MD PATIENT NAME: Bradley Keys DATE: October 06, 2023 TIME: 7:09 AM CSN: [id number] Telephone encounter Note* Telephone Encounter - Mandi Arriaza LPN - 09/24/2023 2:29 PM EDT Received office visit and cardiac testing. Original sent to [facility] through Onbase scanning. Mandi Arriaza LPN [facility]07-10-[facility]24 Miscellaneous Notes* Telephone Encounter - Mandi Arriaza LPN - 09/24/2023 2:29 PM EDT Received office visit and cardiac testing. Original sent to [facility] through Onbase scanning. Mandi Arriaza LPN * Telephone Encounter - Mandi Arriaza LPN - 09/24/2023 12:54 PM EDT Fax request sent to [facility] requesting last office visit and cardiac testing for upcoming surgery. .Mandi Arriaza LPN documented [facility] Telephone encounter Note * Telephone Encounter - Mandi Arriaza LPN - 09/24/2023 12:54 PM EDT Fax request sent to [facility] requesting last office visit and cardiac testing for upcoming surgery. .Mandi Arriaza LPN [facility]07-09-2024 Instructions* Patient Education - Myrna Perdomo PA-C - 09/23/2023 6:14 PM EDT TELEPHONE ENCOUNTER Bradley Keys's medication list was reviewed and patient was noted to be taking Trulicity per his chart. During PAT exam 09/19/2023, documentation of discussion for that the patient hold their medication 7 day(s) prior to their date of surgery. SIGNATURE: Myrna Perdomo PA-C PATIENT NAME: Bradley Keys DATE: September 23, 2023 [facility] Work Phone: 1(304) 618-673407-09-2024 Miscellaneous Notes* Patient Education - Myrna Perdomo PA-C - 09/23/2023 6:14 PM EDT TELEPHONE ENCOUNTER Braldey Keys's medication list was reviewed and patient was noted to be taking Trulicity per his chart. During PAT exam 09/19/2023, documentation of discussion for that the patient hold their medication 7 day(s) prior to their date of surgery. SIGNATURE: Myrna Perdomo PA-C PATIENT NAME: Bradley Keys DATE: September 23, 2023 documented in this [facility]24 Instructions* Patient Instructions* Negin Kaufman APRN.IN HOUSE COUNSEL - 09/19/2023 1:11 PM EDT Images from the original note were not included. [facility] PATIENT PREOPERATIVE INSTRUCTIONS Tino Zuleta,* has scheduled you for your procedure at this surgery center: [facility]: [phone] -- [address] [address]. Please read below carefully for your personalized instructions. Dietary Restrictions: - No solid food after midnight. - You may have 12 ounces of clear liquids (water, clear juices such as apple juice or gatorade, carbonated beverages, clear tea, black coffee, jello) until 2 hours before scheduled arrival at facility. Medications: Unless instructed differently below, stay on all of your medications until your surgery. If you start any new medications after today's visit, please contact your surgeon. Pre-Surgery Med Instructions Medication Instructions magnesium oxide 400 mg magnesium cap Stop 7 days before surgery alpha lipoic acid 100 mg cap Stop 7 days before surgery TRULICITY 1.5 mg/0.5 mL pen injector Stop 7 days before surgery gabapentin (NEURONTIN) 300 mg capsule Take the day of surgery with a small sip of water acetaminophen (TYLENOL) 325 mg tablet IF Needed NURTEC ODT 75 mg disintegrating tablet Do not take the day of surgery aspirin 81 mg chewable tablet Take the day of surgery with a small sip of water OYSTER SHELL CALCIUM-VITAMIN D 500 mg(1,250mg) -200 unit per tablet Stop 7 days before surgery docusate sodium (COLACE) 100 mg capsule Do not take the day of surgery Zinc 50 mg tab Stop 7 days before surgery multivit with minerals/lutein (CEROVITE SENIOR ORAL) Stop 7 days before surgery topiramate (TOPAMAX) 50 mg tablet Take the day of surgery with a small sip of water atorvastatin (LIPITOR) 40 mg tablet Take the day of surgery with a small sip of water melatonin 3 mg tablet Stop 7 days before surgery Cholecalciferol, Vitamin D3, 2,000 unit cap Stop 7 days before surgery omeprazole (PRILOSEC) 20 mg capsule Take the day of surgery with a small sip of water citalopram (CELEXA) 20 mg tablet Take the day of surgery with a small sip of water levothyroxine (SYNTHROID) 100 mcg tablet Take the day of surgery with a small sip of water cyanocobalamin, vitamin B-12, (VITAMIN B-12 ORAL) Stop 7 days before surgery multivit-min/folic/vit K/lycop (ONE-A-DAY MEN'S MULTIVITAMIN ORAL) Stop 7 days before surgery If you take any medications for erectile dysfunction-Cialis (Tadalafil), Levitra, Staxyn (Vardenafil) Viagra (Sildenenafil please do not take these for 48 hours before surgery. If you start any new medications after today's visit, please contact the surgeon's office. Blood Thinning Medications: - Stop NSAIDS (Ibuprofen, Advil, Aleve, Motrin, Celebrex, Mobic, etc.) 7 days before surgery, as directed by your surgeon. - Do NOT stop aspirin or other anticoagulants without consulting with your special skills officer or prescribing physician. - Stop Vitamin E, ALL multi-vitamins, herbals and dietary supplements 7 days before surgery. - You may take Tylenol (Acetaminophen) or any of your pain medications that do not contain aspirin or NSAIDS as needed. Important Reminders: - Candy, mints, and tobacco products are NOT permitted the morning of surgery. - Hearing aids, dentures and glasses may be worn the morning of surgery. - NO jewelry, body piercings, makeup, hairpins or contacts are to be worn the day of surgery. If you develop symptoms such as a fever, cold, or flu, or have other changes to your health within TWO DAYS of scheduled surgery or the morning of surgery, please contact the surgery center above. Personal Belongings: -Please have photo ID and insurance cards. -If you do not have a copy of advance directives on file with us, please bring a copy with you on the day of surgery. - Leave ALL valuables and money at home or with family members. For Outpatient Procedures: - YOU MUST HAVE A RESPONSIBLE INTEGRATION DIRECTOR TAKE YOU HOME. A PURCHASE PRICE ANALYST OR FACILITIES MECHANICAL DESIGN ENGINEER CANNOT BE MADE A RESPONSIBLE INTEGRATION DIRECTOR. - We recommend that a responsible person stays with you overnight to take care of you. - You cannot stay in a hotel alone after outpatient surgery. You will not be permitted to have yoursurgery, if you do not have someone to take care of you. Arrival Time for Surgery: - The Surgery Center or hospital where you are having surgery will call the afternoon before surgery (or Friday for Friday surgery) with a scheduled arrival time. - If you have not heard by 4 pm, please contact the surgery center above. Please be aware that emergency situations arise, which may delay or change your surgical time. If this happens, we will notify you as soon as possible and regret any inconvenience. If you already have an Advance Directive, please fax a copy to [phone] or email to for it to be added to your chart. If you do not have an Advance Directive, you can find the appropriate form and more information at [email or web address]. We recommend that youcomplete the Advance Directive form found on the website and bring it with you the day of your surgery. It can be witnessed and scanned into your chart that day. Negin Kaufman APRN.CNP documented in this encounterM[facility]07-[facility]24 History and physical note * Negin Kaufman APRN.CNP - 09/19/2023 1:07 PM EDT Images from the original note were not included. [facility] HISTORY AND PHYSICAL EXAMINATION SERVICE DATE: 09/19/2023 SERVICE TIME: 2:08 PM PRIMARY CARE PHYSICIAN: Lia Eisenberg CNP Assessment Patient has the following medical conditions which may affect vidya-operative course: Obstructive sleep apnea Assessment: c/w Bipap Essential hypertension Assessment: controlled on rx Last 14 BP Last 14 Encounter BP Readings: Date: BP: 09/19/2023 110/58 05/29/2022 150/121 05/22/2022 124/64 04/19/2022 86/52 04/15/2022 99/50 04/12/2022 132/64 04/06/2022 122/80 11/07/2021 149/65 10/31/2021 110/64 10/18/2021 132/62 10/18/2021 116/78 09/07/2020 132/61 08/26/2019 114/70 10/01/2018 98/69 Coronary artery disease involving false pass coronary artery of false pass heart without angina pectoris Assessment: ASA 81mg, NM, 8 yearas ago, s/p stent, following [facility], last OV and cardiac records requested, new EKG today Mixed hyperlipidemia Assessment: c/w statin Subdural hemorrhage (HCC) Assessment: residual balance issues and strength, and chronic migraines Migraine Assessment: controlled on rx and rx as needed, receives botox, following neurology Controlled type 2 diabetes mellitus with diabetic polyneuropathy, without long- term current use of insulin (HCC) Assessment: diet controlled, not taking Trulicity listed on med list per pt Hemoglobin A1C (%) Date Value 08/14/2023 5.6 03/25/2019 5.3 Hemoglobin A1C (POCT) (%) Date Value 09/07/2020 5.3 Gastroesophageal reflux disease without esophagitis Assessment: controlled on rx Acquired hypothyroidism Assessment: stable on rx DVT of upper extremity (deep vein thrombosis) (HCC) Assessment: daily ASA, provoked by surgery, tx with AC at the time Anxiety and depression Assessment: stable on rx per pt History of gastric bypass Assessment: hx Hx of sinus bradycardia Assessment: hx, PPM/ICD Class 1 obesity with serious comorbidity and body mass index (BMI) of 32.0 to 32.9 in adult Assessment: Body mass index is 32.54 kg/m . Etienne Activity Status Index: METS: Climb a flight of stairs or walk up a hill (5.50 METs) DASI Score: 5.5 Patient denies any chest pain or undue shortness of breath with the above physical activity. Clinical Frailty Scale: 4. Apparently vulnerable STOP-Bang Score: Snores loudly Often feels tired, fatigued, or sleepy during the daytime Has been observed to stop breathing or choking/gasping during sleep Has or is being treated for high blood pressure Patient over 50 years old Has a large neck Male patient BMI less than or equal to 35 kg/m^2 STOP-Bang Score: 7 [id number] Score: Age: <65 Sex: male CHF history: No Hypertension history: Yes Stroke/TIA/thromboembolism history: Yes Vascular disease history: Yes Diabetes history: Yes [id number] Score: 5 ARISCAT Score: Age: 51-80 Preoperative SpO2: >=96% Respiratory infection in the last month: No Preoperative anemia: Yes Surgical incision: peripheral Duration of surgery: <2 hrs Emergency procedure: No ARISCAT Score: 14 ANESTHESIA FINDINGS: Intubation History: No history of difficult intubation Significant Anesthesia Considerations: none Airway History: No history of difficult airway I - PHYSICAL EVALUATION AIRWAY Patient intubated: No. Tracheostomy tube not present Mallampati: III. TM distance: >3 FB. Neck ROM: full ROM without neurological symptoms. Mouth opening: adequate. Short neck: no. Thick neck: yes [place] present: no Lip Bite Test: I Microretrognathia/Micronagthia/Recessed Chin: No DENTAL Dentures, upper: complete. Dentures, lower: complete. II - ANESTHESIA PLAN Anesthetic Plan: other Beta Freedom Monitoring Plan Post Procedure Analgesic Plan Informed Consent Anesthetic risks, benefits, alternatives, personnel and consent discussed: yes. Patient / Responsible Democrat agrees to proceed: yes Patient / Surrogate agrees to blood products: blood products not planned Discussed the possibility of lip / dental damage: yes Prepared for Surgery: optimally prepared for surgery, pending [see comment]. Labs and ekg CONSULTS: Patient does not require consults for optimization at this time Planned Anesthetic: other anesthesia choice The Following Tests/Procedures Have Been Initiated: Orders Placed This Encounter >CMP Standing Status: Future Number of Occurrences: 1 Standing Expiration Date: 12/19/2023 magnesium oxide 400 mg magnesium cap Sig: Take 1 capsule by mouth once daily. alpha lipoic acid 100 mg cap Sig: Take 1 capsule by mouth once daily. ECG COMPLETE Standing Status: Future Standing Expiration Date: 09/18/2024 ECG COMPLETE Order Comments: Ordered by an unspecified provider REASON FOR VISIT: Bradley Keys is a 62 year old male who is scheduled for Procedure(s): ARTHROSCOPY SHOULDER W/ LYSIS ADHESIONS WITH MANIPULATION (Right) at the request of Dr. Tino Zuleta for consultation. My final recommendation will be communicated back to the requesting physician by way of shared medical record or letter. Subjective The patient has the following: ACTIVE PROBLEM LIST Obstructive Sleep Apnea Controlled Type 2 Diabetes Mellitus With Diabetic Polyneuropathy, Without Long- Term Current Use of Insulin (Hcc) Essential Hypertension Mixed Hyperlipidemia Acquired Hypothyroidism Vitamin D Deficiency History of Gastric Bypass Coronary Artery Disease Involving [place] Coronary Artery of [place] Heart Without Angina Pectoris Gastroesophageal Reflux Disease Without Esophagitis Subdural Hemorrhage (Hcc) Occipital Bone Fracture (Hcc) Fall Scalp Laceration, Initial Encounter Dizziness Class 1 Obesity With Serious Comorbidity and Body Mass Index (Bmi) of 32.0 to 32.9 in Adult Hx of Sinus Bradycardia Migraine Dvt of Upper Extremity (Deep Vein Thrombosis) (Former[facility]) Anxiety and Depression Carpal Tunnel Syndrome COVID-19 Immunization Status Overdue - Covid-19 Vaccine () Overdue since 11/15/2022 02/21/2022 Imm Admin: COVID-19 vaccine, age 12+ yr, bivalent ([place]) 06/02/2020 Imm Admin: COVID-19 vaccine ([employer]) CHIEF COMPLAINT: Pre-op exam HPI: Bradley Keys is a 62 year old seen for PAC due to scheduled above surgery because of adhesive capsulitis of the right shoulder. 08/01/2023, Dr. Tino Zuleta Bradley Keys returns follow-up on severe adhesive capsulitis of the right shoulder. He underwent arthroscopic release of the right shoulder in May 2022. Although he did his stretching after this procedure he continued to have difficulty with his range of motion and now returns requesting further treatment. The left shoulder also is stiff and has not improved with stretching. REVIEW OF SYSTEMS: General: No weight loss, malaise or fevers. Neurological: +hx SDH Positive for: headaches. 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 Respiratory: Positive for: obstructive sleep apnea. Negative for: asthma, COPD, pneumonia within 6 weeks, tobacco use and URI < 2 weeks. Cardiovascular: Positive for: anticoagulation therapy, CAD, DVT/PE, hyperlipidemia and hypertension Patient's last office visit The following tests and/or procedures were performed: cardiac stents. Negative for: arrhythmia, atrial fibrillation, recent NM, murmur/valvular heart disease, PVD, open heart surgery and valve surgery. GI: H/o gastric bypass Constipation, on rx Positive for: GERD Negative for: abdominal pain, dysphagia, hepatitis, irritable bowel syndrome, inflammatory bowel disease, liver disease, nausea, pancreatitis, vomiting and ETOH >2 drinks/day. : No history of dysuria, frequency or incontinence, stones or chronic kidney disease. No difficulty urinating, nocturia > 1 time per night or hematuria. Endocrine: Positive for: diabetes mellitus, diabetic neuropathy and hypothyroidism. Patient's diabetes mellitus is controlled by diet. Hematology: Positive for: chronic anti-coagulation/platelet meds. Patient is on anti- coagulation/platelet medication(s): Aspirin. Negative for: anemia, factor V Leiden and transfusion of at least 4 units within 72 hours prior to surgery. Oncology: No history of CA metastasis, chemo within 30 days, or radiotherapy within 90 days. No history of oncological symptoms or problems. Psych: Positive for: anxiety and depression. Musculoskeletal: Negative for joint pain or swelling, back pain or muscle pain. Skin: Negative for lesions, rash and itching. 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 no brain surgery , but needed rehab to learn to walk and talk again Coronary artery disease Diabetes (HCC) states no longer since gastric bypass with weight loss Hyperlipidemia Hypertension Hypothyroidism Obese Sleep apnea uses bypap Vitamin D deficiency PAST SURGICAL HISTORY Procedure Laterality Date CHOLECYSTECTOMY HX 2018 GASTRIC BYPASS HX 2018 HEMORRHOIDECTOMY INTERNAL RUBBER BAND LIGATIONS Hemorrhoidectomy MANJ W/ANES SHOULDER JOINT W/FIXATION APPARATUS Right 11/07/2021 Right shoulder manipulation under anesthesia with injection given right shoulder PAST SURGICAL HISTORY OF lymph node biopsy PAST SURGICAL HISTORY OF jonathan cyst on head PAST SURGICAL HISTORY OF 2018 hiatal hernia repair PAST SURGICAL HISTORY OF Bilateral 05/2021 Excess breast skin removal post gastric bypass 3- and abdominal skin removal 1- RE[facility]ISE [facility]IAN N/CARPAL TUNNEL SURG Right 11/07/2021 Right carpal tunnel release and Right shoulder manipulation under anesthesia RE[facility]ISE MEDIAN N/CARPAL TUNNEL SURG Right 11/07/2021 Right carpal tunnel release RE[facility] N/CARPAL TUNNEL SURG Left 04/19/2022 Left Carpal tunnel release STENTS (SPECIFY) cardiac x 1 TONSILLECTOMY PRIMARY/SECONDARY Tonsillectomy FAMILY HISTORY Problem Relation Age of Onset Cancer Father lung Diabetes Mother Social History Tobacco Use Smoking status: Never Smokeless tobacco: Never Vaping Use Vaping Use: Never used Substance Use Topics Alcohol use: No Drug use: No Prior to Admission medications as of 09/19/23 1345 Medication Sig Last Dose Taking magnesium oxide 400 mg magnesium cap Take 1 capsule by mouth once daily. Taking Yes alpha lipoic acid 100 mg cap Take 1 capsule by mouth once daily. Taking Yes TRULICITY 1.5 mg/0.5 mL pen injector inject1.5 mg subcutaneously every week as directed Taking Yes gabapentin (NEURONTIN) 300 mg capsule Take 300 mg by mouth three times a day. Taking Yes acetaminophen (TYLENOL) 325 mg tablet Take 650 mg by mouth every 6 hours as needed. Taking Yes NURTEC ODT 75 mg disintegrating tablet TAKE 1 TABLET BY MOUTH DAILY NEEDED for onset OF migrainse, no more than 1 (ONE) dose in 24 hours DIRECTED FOR 30 DAYS Taking Yes aspirin 81 mg chewable tablet Take 81 mg by mouth once daily. Taking Yes OYSTER SHELL CALCIUM-VITAMIN D 500 mg(1,250mg) -200 unit per tablet Take 1 tablet by mouth once daily. Taking Yes docusate sodium (COLACE) 100 mg capsule Take 100 mg by mouth as needed. Taking Yes Zinc 50 mg tab Take 50 mg by mouth once daily. Taking Yes multivit with minerals/lutein (CEROVITE SENIOR ORAL) Take by mouth. Taking Yes topiramate (TOPAMAX) 50 mg tablet Take 50 mg by mouth twice daily. Taking Yes atorvastatin (LIPITOR) 40 mg tablet Take 40 mg by mouth once daily. Taking Yes melatonin 3 mg tablet Take 2 tablets by mouth daily at bedtime. Taking Yes Cholecalciferol, Vitamin D3, 2,000 unit cap Take 2 capsules by mouth once daily. Taking Yes omeprazole (PRILOSEC) 20 mg capsule Take 20 mg by mouth once daily. Taking Yes citalopram (CELEXA) 20 mg tablet Take 30 mg by mouth once daily. Taking Yes levothyroxine (SYNTHROID) 100 mcg tablet Take 100 mcg by mouth daily before breakfast. Taking Yes cyanocobalamin, vitamin B-12, (VITAMIN B-12 ORAL) Take 500 Units by mouth two times a day. Taking Yes multivit-min/folic/vit K/lycop (ONE-A-DAY MEN'S MULTIVITAMIN ORAL) Take 1 tablet by mouth once daily. Taking Yes blood sugar diagnostic (ONETOUCH VERIO TEST STRIPS) test strip Use to test glucose once daily as directed. DX: E11.42, non insulin dependent. lancets (ONE TOUCH DELICA) 33 gauge Use to test glucose once daily as directed. DX: E11.42, non insulin dependent. Blood-Glucose Meter (ONETOUCH VERIO METER) Use to test glucose once daily as directed. DX: E11.42, non insulin dependent. No medication comments found. ALLERGIES Allergen Reactions Celebrex [Celecoxib] blisters from head to toe Objective PHYSICAL EXAM: General: alert and oriented (x3), healthy appearance and obese. Pertinent negatives noted - not distressed. Skin: normal color, no rash or lesions. HEENT: EOM intact and pupils equal round. Pertinent negatives noted - no carotid bruit. Cardiovascular: regular rate and rhythm, normal S1 and S2, no rub, murmurs, or gallop. Respiratory: normal breath sounds, no wheezes or crackles. No chest wall deformity or tenderness. Abdomen: soft. Pertinent negatives noted - not tender. Extremities: no deformity, no edema or tenderness, no joint swelling or clubbing. Neurological: normal cognition and motor skills. Gait normal. No weakness or sensory deficit. PAIN ASSESSMENT: Pain Pain Level: 8 Pain Location: Shoulder-Right Frequency: Continuous VITALS: BP 110/58 Pulse 63 Temp (Src) 97.8 (Temporal Artery) Resp 16 Wt 214 lb (97.1kg) SpO2 97% Diagnostic tests reviewed for today's visit: Lab Value Units Date High Low HB 14.3 g/dL 08/14/2023 17.0 13.0 HCT 43.1 % 08/14/2023 51.0 39.0 WBC 5.35 k/uL 08/14/2023 11.00 3.70 PLT 165 k/uL 08/14/2023 400 150 NA 143 mmol/L 08/14/2023 144 136 K 5.2 mmol/L 08/14/2023 5.1 3.7 GLUC 83 mg/dL 08/14/2023 99 74 BUN 17 mg/dL 08/14/2023 24 9 CREAT 0.96 mg/dL 08/14/2023 1.22 0.73 PTSEC No results within date range. INR No results within date range. APTT No results within date range. ALT 33 U/L 08/14/2023 54 10 AST 35 U/L 08/14/2023 40 14 TBILI 0.6 mg/dL 08/14/2023 1.3 0.2 TSH 1.130 mIU/L 08/14/2023 4.200 0.270 Lab Value Units Date High Low HCGQT No results within date range. UHCG No results within date range. HCG, BODY* No results within date range. Lab Value Units Date High Low ABORHD No results within date range. ABSCREEN No results within date range. Hemoglobin A1C (%) Date Value 08/14/2023 5.6 03/25/2019 5.3 11/29/2011 10.2 HBA1C, Nguyễn (%) Date Value 08/28/2011 10.3 10/02/2010 8.1 10/31/2009 11.9 08/01/2009 10.3 12/30/2008 9.6 Hemoglobin A1C (POCT) (%) Date Value 09/07/2020 5.3 08/26/2019 5.1 10/01/2018 5.2 06/01/2018 6.5 Recent Results (from the past 8760 hour(s)) ECG COMPLETE Collection Time: 09/19/23 2:11 PM Result Value Ventricular Rate 50 Atrial Rate 50 P-R Interval 228 QRS Duration 102 QT Interval 482 QTC Calculation (Bazett) 439 Calculated P B[place] 52 Calculated R [place] 69 Calculated T [place] 39 Impression SINUS BRADYCARDIA WITH 1ST DEGREE AV BLOCK OTHERWISE NORMAL ECG No results found for this or any previous visit (from the past 90586 hour(s)). Instructions Given to Patient: Instructions located in the after visit summary. Patient given verbal and written preop instructions and voices comprehension and compliance. SIGNATURE: Negin Kaufman APRN.CNP PATIENT NAME: Bradley Keys DATE: September 19, 2023 TIME: 1:07 PM PAGER/CONTACT #: [facility]07[facility] History and physical note* Negin Kaufman APRN.CNP - 09/19/2023 1:07 PM EDT Images from the original note were not included. [facility] Pre-Anesthesia Consultation [facility] HISTORY AND PHYSICAL EXAMINATION SERVICE DATE: 09/19/2023 SERVICE TIME: 2:08 PM PRIMARY CARE PHYSICIAN: Lia Eisenberg CNP Assessment Patient has the following medical conditions which may affect vidya-operative course: Obstructive sleep apnea Assessment: c/w Bipap Essential hypertension Assessment: controlled on rx Last 14 BP Last 14 Encounter BP Readings: Date: BP: 09/19/2023 110/58 05/29/2022 150/121 05/22/2022 124/64 04/19/2022 86/52 04/15/2022 99/50 04/12/2022 132/64 04/06/2022 122/80 11/07/2021 149/65 10/31/2021 110/64 10/18/2021 132/62 10/18/2021 116/78 09/07/2020 132/61 08/26/2019 114/70 10/01/2018 98/69 Coronary artery disease involving false pass coronary artery of false pass heart without angina pectoris Assessment: ASA 81mg, NM, 8 yearas ago, s/p stent, following [facility], last OV and cardiac records requested, new EKG today Mixed hyperlipidemia Assessment: c/w statin Subdural hemorrhage (HCC) Assessment: residual balance issues and strength, and chronic migraines Migraine Assessment: controlled on rx and rx as needed, receives botox, following neurology Controlled type 2 diabetes mellitus with diabetic polyneuropathy, without long- term current use of insulin (HCC) Assessment: diet controlled, not taking Trulicity listed on med list per pt Hemoglobin A1C (%) Date Value 08/14/2023 5.6 03/25/2019 5.3 Hemoglobin A1C (POCT) (%) Date Value 09/07/2020 5.3 Gastroesophageal reflux disease without esophagitis Assessment: controlled on rx Acquired hypothyroidism Assessment: stable on rx DVT of upper extremity (deep vein thrombosis) (HCC) Assessment: daily ASA, provoked by surgery, tx with AC at the time Anxiety and depression Assessment: stable on rx per pt History of gastric bypass Assessment: hx Hx of sinus bradycardia Assessment: hx, PPM/ICD Class 1 obesity with serious comorbidity and body mass index (BMI) of 32.0 to 32.9 in adult Assessment: Body mass index is 32.54 kg/m . Etienne Activity Status Index: METS: Climb a flight of stairs or walk up a hill (5.50 METs) DASI Score: 5.5 Patient denies any chest pain or undue shortness of breath with the above physical activity. Clinical Frailty Scale: 4. Apparently vulnerable STOP-Bang Score: Snores loudly Often feels tired, fatigued, or sleepy during the daytime Has been observed to stop breathing or choking/gasping during sleep Has or is being treated for high blood pressure Patient over 50 years old Has a large neck Male patient BMI less than or equal to 35 kg/m^2 STOP-Bang Score: 7 [id number] Score: Age: <65 Sex: male CHF history: No Hypertension history: Yes Stroke/TIA/thromboembolism history: Yes Vascular disease history: Yes Diabetes history: Yes [id number] Score: 5 ARISCAT Score: Age: 51-80 Preoperative SpO2: >=96% Respiratory infection in the last month: No Preoperative anemia: Yes Surgical incision: peripheral Duration of surgery: <2 hrs Emergency procedure: No ARISCAT Score: 14 ANESTHESIA FINDINGS: Intubation History: No history of difficult intubation Significant Anesthesia Considerations: none Airway History: No history of difficult airway I - PHYSICAL EVALUATION AIRWAY Patient intubated: No. Tracheostomy tube not present Mallampati: III. TM distance: >3 FB. Neck ROM: full ROM without neurological symptoms. Mouth opening: adequate. Short neck: no. Thick neck: yes [place] present: no Lip Bite Test: I Microretrognathia/Micronagthia/Recessed Chin: No DENTAL Dentures, upper: complete. Dentures, lower: complete. II - ANESTHESIA PLAN Anesthetic Plan: other Beta Freedom Monitoring Plan Post Procedure Analgesic Plan Informed Consent Anesthetic risks, benefits, alternatives, personnel and consent discussed: yes. Patient / Responsible Democrat agrees to proceed: yes Patient / Surrogate agrees to blood products: blood products not planned Discussed the possibility of lip / dental damage: yes Prepared for Surgery: optimally prepared for surgery, pending [see comment]. Labs and ekg CONSULTS: Patient does not require consults for optimization at this time Planned Anesthetic: other anesthesia choice The Following Tests/Procedures Have Been Initiated: Orders Placed This Encounter >CMP Standing Status: Future Number of Occurrences: 1 Standing Expiration Date: 12/19/2023 magnesium oxide 400 mg magnesium cap Sig: Take 1 capsule by mouth once daily. alpha lipoic acid 100 mg cap Sig: Take 1 capsule by mouth once daily. ECG COMPLETE Standing Status: Future Standing Expiration Date: 09/18/2024 ECG COMPLETE Order Comments: Ordered by an unspecified provider REASON FOR VISIT: Bradley Keys is a 62 year old male who is scheduled for Procedure(s): ARTHROSCOPY SHOULDER W/ LYSIS ADHESIONS WITH MANIPULATION (Right) at the request of Dr. Tino Zuleta for consultation. My final recommendation will be communicated back to the requesting physician by way of shared medical record or letter. Subjective The patient has the following: ACTIVE PROBLEM LIST Obstructive Sleep Apnea Controlled Type 2 Diabetes Mellitus With Diabetic Polyneuropathy, Without Long- Term Current Use of Insulin (Hcc) Essential Hypertension Mixed Hyperlipidemia Acquired Hypothyroidism Vitamin D Deficiency History of Gastric Bypass Coronary Artery Disease Involving [place] Coronary Artery of [place] Heart Without Angina Pectoris Gastroesophageal Reflux Disease Without Esophagitis Subdural Hemorrhage (Hcc) Occipital Bone Fracture (Hcc) Fall Scalp Laceration, Initial Encounter Dizziness Class 1 Obesity With Serious Comorbidity and Body Mass Index (Bmi) of 32.0 to 32.9 in Adult Hx of Sinus Bradycardia Migraine Dvt of Upper Extremity (Deep Vein Thrombosis) (Hcc) Anxiety and Depression Carpal Tunnel Syndrome COVID-19 Immunization Status Overdue - Covid-19 Vaccine ( season) Overdue since 11/15/2022 02/21/2022 Imm Admin: COVID-19 vaccine, age 12+ yr, bivalent ([employer]) 06/02/2020 Imm Admin: COVID-19 vaccine ([employer]) CHIEF COMPLAINT: Pre-op exam HPI: Bradley Keys is a 62 year old seen for PAC due to scheduled above surgery because of adhesive capsulitis of the right shoulder. 08/01/2023, Dr. Tino Zuleta Bradley Keys returns follow-up on severe adhesive capsulitis of the right shoulder. He underwent arthroscopic release of the right shoulder in May 2022. Although he did his stretching after this procedure he continued to have difficulty with his range of motion and now returns requesting further treatment. The left shoulder also is stiff and has not improved with stretching. REVIEW OF SYSTEMS: General: No weight loss, malaise or fevers. Neurological: +hx SDH Positive for: headaches. 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 Respiratory: Positive for: obstructive sleep apnea. Negative for: asthma, COPD, pneumonia within 6 weeks, tobacco use and URI < 2 weeks. Cardiovascular: Positive for: anticoagulation therapy, CAD, DVT/PE, hyperlipidemia and hypertension Patient's last office visit The following tests and/or procedures were performed: cardiac stents. Negative for: arrhythmia, atrial fibrillation, recent NM, murmur/valvular heart disease, PVD, open heart surgery and valve surgery. GI: H/o gastric bypass Constipation, on rx Positive for: GERD Negative for: abdominal pain, dysphagia, hepatitis, irritable bowel syndrome, inflammatory bowel disease, liver disease, nausea, pancreatitis, vomiting and ETOH >2 drinks/day. : No history of dysuria, frequency or incontinence, stones or chronic kidney disease. No difficulty urinating, nocturia > 1 time per night or hematuria. Endocrine: Positive for: diabetes mellitus, diabetic neuropathy and hypothyroidism. Patient's diabetes mellitus is controlled by diet. Hematology: Positive for: chronic anti-coagulation/platelet meds. Patient is on anti- coagulation/platelet medication(s): Aspirin. Negative for: anemia, factor V Leiden and transfusion of at least 4 units within 72 hours prior to surgery. Oncology: No history of CA metastasis, chemo within 30 days, or radiotherapy within 90 days. No history of oncological symptoms or problems. Psych: Positive for: anxiety and depression. Musculoskeletal: Negative for joint pain or swelling, back pain or muscle pain. Skin: Negative for lesions, rash and itching. 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 no brain surgery , but needed rehab to learn to walk and talk again Coronary artery disease Diabetes (HCC) states no longer since gastric bypass with weight loss Hyperlipidemia Hypertension Hypothyroidism Obese Sleep apnea uses bypap Vitamin D deficiency PAST SURGICAL HISTORY Procedure Laterality Date CHOLECYSTECTOMY HX 2018 GASTRIC BYPASS HX 2018 HEMORRHOIDECTOMY INTERNAL RUBBER BAND LIGATIONS Hemorrhoidectomy MANJ W/ANES SHOULDER JOINT W/FIXATION APPARATUS Right 11/07/2021 Right shoulder manipulation under anesthesia with injection given right shoulder PAST SURGICAL HISTORY OF lymph node biopsy PAST SURGICAL HISTORY OF jonathan cyst on head PAST SURGICAL HISTORY OF 2018 hiatal hernia repair PAST SURGICAL HISTORY OF Bilateral 05/2021 Excess breast skin removal post gastric bypass - and abdominal skin removal 04-07 [facility] N/CARPAL TUNNEL SURG Right 11/07/2021 Right carpal tunnel release and Right shoulder manipulation under anesthesia [facility] N/CARPAL TUNNEL SURG Right 11/07/2021 Right carpal tunnel release [facility] N/CARPAL TUNNEL SURG Left 04/19/2022 Left Carpal tunnel release STENTS (SPECIFY) cardiac x 1 TONSILLECTOMY PRIMARY/SECONDARY <AGE 12 Tonsillectomy FAMILY HISTORY Problem Relation Age of Onset Cancer Father lung Diabetes Mother Social History Tobacco Use Smoking status: Never Smokeless tobacco: Never Vaping Use Vaping Use: Never used Substance Use Topics Alcohol use: No Drug use: No Prior to Admission medications as of 09/19/23 1345 Medication Sig Last Dose Taking magnesium oxide 400 mg magnesium cap Take 1 capsule by mouth once daily. Taking Yes alpha lipoic acid 100 mg cap Take 1 capsule by mouth once daily. Taking Yes TRULICITY 1.5 mg/0.5 mL pen injector inject1.5 mg subcutaneously every week as directed Taking Yes gabapentin (NEURONTIN) 300 mg capsule Take 300 mg by mouth three times a day. Taking Yes acetaminophen (TYLENOL) 325 mg tablet Take 650 mg by mouth every 6 hours as needed. Taking Yes NURTEC ODT 75 mg disintegrating tablet TAKE 1 TABLET BY MOUTH DAILY NEEDED for onset OF migrainse, no more than 1 (ONE) dose in 24 hours DIRECTED FOR 30 DAYS Taking Yes aspirin 81 mg chewable tablet Take 81 mg by mouth once daily. Taking Yes OYSTER SHELL CALCIUM-VITAMIN D 500 mg(1,250mg) -200 unit per tablet Take 1 tablet by mouth once daily. Taking Yes docusate sodium (COLACE) 100 mg capsule Take 100 mg by mouth as needed. Taking Yes Zinc 50 mg tab Take 50 mg by mouth once daily. Taking Yes multivit with minerals/lutein (CEROVITE SENIOR ORAL) Take by mouth. Taking Yes topiramate (TOPAMAX) 50 mg tablet Take 50 mg by mouth twice daily. Taking Yes atorvastatin (LIPITOR) 40 mg tablet Take 40 mg by mouth once daily. Taking Yes melatonin 3 mg tablet Take 2 tablets by mouth daily at bedtime. Taking Yes Cholecalciferol, Vitamin D3, 2,000 unit cap Take 2 capsules by mouth once daily. Taking Yes omeprazole (PRILOSEC) 20 mg capsule Take 20 mg by mouth once daily. Taking Yes citalopram (CELEXA) 20 mg tablet Take 30 mg by mouth once daily. Taking Yes levothyroxine (SYNTHROID) 100 mcg tablet Take 100 mcg by mouth daily before breakfast. Taking Yes cyanocobalamin, vitamin B-12, (VITAMIN B-12 ORAL) Take 500 Units by mouth two times a day. Taking Yes multivit-min/folic/vit K/lycop (ONE-A-DAY MEN'S MULTIVITAMIN ORAL) Take 1 tablet by mouth once daily. Taking Yes blood sugar diagnostic (ONETOUCH VERIO TEST STRIPS) test strip Use to test glucose once daily as directed. DX: E11.42, non insulin dependent. lancets (ONE TOUCH DELICA) 33 gauge Use to test glucose once daily as directed. DX: E11.42, non insulin dependent. Blood-Glucose Meter (ONETOUCH VERIO METER) Use to test glucose once daily as directed. DX: E11.42, non insulin dependent. No medication comments found. ALLERGIES Allergen Reactions Celebrex [Celecoxib] blisters from head to toe Objective PHYSICAL EXAM: General: alert and oriented (x3), healthy appearance and obese. Pertinent negatives noted - not distressed. Skin: normal color, no rash or lesions. HEENT: EOM intact and pupils equal round. Pertinent negatives noted - no carotid bruit. Cardiovascular: regular rate and rhythm, normal S1 and S2, no rub, murmurs, or gallop. Respiratory: normal breath sounds, no wheezes or crackles. No chest wall deformity or tenderness. Abdomen: soft. Pertinent negatives noted - not tender. Extremities: no deformity, no edema or tenderness, no joint swelling or clubbing. Neurological: normal cognition and motor skills. Gait normal. No weakness or sensory deficit. PAIN ASSESSMENT: Pain Pain Level: 8 Pain Location: Shoulder-Right Frequency: Continuous VITALS: BP 110/58 Pulse 63 Temp (Src) 97.8 (Temporal Artery) Resp 16 Wt 214 lb (97.1kg) SpO2 97% Diagnostic tests reviewed for today's visit: Lab Value Units Date High Low HB 14.3 g/dL 08/14/2023 17.0 13.0 HCT 43.1 % 08/14/2023 51.0 39.0 WBC 5.35 k/uL 08/14/2023 11.00 3.70 PLT 165 k/uL 08/14/2023 400 150 NA 143 mmol/L 08/14/2023 144 136 K 5.2 mmol/L 08/14/2023 5.1 3.7 GLUC 83 mg/dL 08/14/2023 99 74 BUN 17 mg/dL 08/14/2023 24 9 CREAT 0.96 mg/dL 08/14/2023 1.22 0.73 PTSEC No results within date range. INR No results within date range. APTT No results within date range. ALT 33 U/L 08/14/2023 54 10 AST 35 U/L 08/14/2023 40 14 TBILI 0.6 mg/dL 08/14/2023 1.3 0.2 TSH 1.130 mIU/L 08/14/2023 4.200 0.270 Lab Value Units Date High Low HCGQT No results within date range. UHCG No results within date range. HCG, BODY* No results within date range. Lab Value Units Date High Low ABORHD No results within date range. ABSCREEN No results within date range. Hemoglobin A1C (%) Date Value 08/14/2023 5.6 03/25/2019 5.3 11/29/2011 10.2 HBA1C, [place] (%) Date Value 08/28/2011 10.3 10/02/2010 8.1 10/31/2009 11.9 08/01/2009 10.3 12/30/2008 9.6 Hemoglobin A1C (POCT) (%) Date Value 09/07/2020 5.3 08/26/2019 5.1 10/01/2018 5.2 06/01/2018 6.5 Recent Results (from the past 8760 hour(s)) ECG COMPLETE Collection Time: 09/19/23 2:11 PM Result Value Ventricular Rate 50 Atrial Rate 50 P-R Interval 228 QRS Duration 102 QT Interval 482 QTC Calculation (Bazett) 439 Calculated P [place] 52 Calculated R [place] 69 Calculated T [place] 39 Impression SINUS BRADYCARDIA WITH 1ST DEGREE AV BLOCK OTHERWISE NORMAL ECG No results found for this or any previous visit (from the past 20720 hour(s)). Instructions Given to Patient: Instructions located in the after visit summary. Patient given verbal and written preop instructions and voices comprehension and compliance. SIGNATURE: Negin Kaufman APRN.CNP PATIENT NAME: Bradley Keys DATE: September 19, 2023 TIME: 1:07 PM PAGER/CONTACT #: [facility] History of Present illness Narrative* Tino Zuleta MD - 08/06/2023 10:56 AM EDT Images from the original note were not included. PAIN EVALUATION 08/01/2023 1313 Pain Location: -- bilateral shoulder, right worse than left Description: Sore;Throbbing weak Frequency: Intermittent Encounter Diagnosis ICD-10-CM 1. Adhesive capsulitis of right shoulder M75.01 Bradley Keys returns follow-up on severe adhesive capsulitis of the right shoulder. He underwent arthroscopic release of the right shoulder in May 2022. Although he did his stretching after this procedure he continued to have difficulty with his range of motion and now returns requesting further treatment. The left shoulder also is stiff and has not improved with stretching. I examined his right shoulder again today. His incisions are well-healed. Has severe difficulty with any overhead or rotational testing today. He has 70 degrees of active and passive forward elevation. 70 degrees of active and passive side abduction. 0 degrees of external rotation and 0 degrees of internal rotation with the arm at the side and with slight abduction. IMAGING: Radiographs of the right shoulder personally reviewed today. Date of exam April 05, 2022. This is a 3-view shoulder exam, including AP, outlet, and axillary views. My interpretation of the examination: Normal shoulder PLAN: Bradley Keys presents today with persistent painful stiffness of the right shoulder as a resultof recalcitrant adhesive capsulitis. Based on my evaluation today, I do not feel that nonsurgical interventions including physical therapy, activity modification, and medical management are likely toprovide this patient with an acceptable level of improvement in functional use of the arm, nor signi ficant pain relief. After thorough review of history, examination findings, and imaging, we discussed surgical intervention today which would be revision arthroscopic lysis of adhesions followed by manipulation. Will require physical therapy on the day of the procedure as well as on subsequent daysand will need to schedule this for the best possible outcome. Informed consent was discussed in detail and signed in the office today. Significant risks of surgery including those of general anesthesia, and those from surgery including infection, nerve injury, bleeding, procedure failure and possible need for repeat procedure were all discussed at the time of consent. No guarantees as to the outcome of surgery were given or implied. Surgery will be scheduled for the next available date. Tino Zuleta MD Shoulder & Elbow Surgeon Department of Orthopaedic Surgery [facility] documented in this encounterM[facility]02[facility] Telephone encounter Note * Telephone Encounter - Dony Hoffman NP - 04/17/2023 1:30 PM EST [id number] Miscellaneous Notes* Telephone Encounter - Dony Hoffman NP - 04/17/2023 1:30 PM EST noted * Telephone Encounter - Kateryna Mcintosh - 04/17/2023 11:41 AM EST Pt's family Dr shaun Valdez took patient off of the Requip and prescirbed Gabapentin 300mg Instead Patient just wanted you to be aware of this documented in this encounterSt. [facility] [id number] Telephone encounter Note* Telephone Encounter - Kateryna Mcintosh - 04/17/2023 11:41 AM EST Pt's family at [facility] took patient off of the Requip and prescirbed Gabapentin 300mg Instead Patient just wanted you to be aware of this [facility] [id number] Discharge summary Author Brinda Pepper [facility] December 03, 2022 9:07am Note Date/Time December 03, 2022 9:07am [facility] Physical Therapy [facility] [address] [place] [address] / REHABILITATION SERVICES DISCHARGE SUMMARY MR#: [id number] Acct: [id number] Name: BRADLEY KEYS Rep #: [id number] 03 : 1960 61 From: Brinda HODGE T Referring DrDilip: OUT OF TOWN DOCTOR Status: REG R Insurance: [facility] SELF PAY INSURANCE Patient Information Patient Information: BRADLEY KEYS was seen in my office for initial evaluation on 06/14/22. The following Plan of Care was established for this patient: POC Established Initial Frequency: 3x /Week Initial Duration: 4 Weeks Anticipated Interventions Patient/Client Instruction: Educate patient on: Benefits of Fitness Program Therapeutic Exercise to Include: Strength training, Endurance training, Coordination, Body mechanics, Postural training, Flexibilty training, Neuromotordevelopment, Passive ROM, Active ROM, Dynamic Lumbar Stabilization and Scapular Strength/Stabilization For the Purpose of:: To improve muscle performance and motor function Manual Therapy Techniques to Include: Mobilization, Passive ROM and Soft tissue mobilization For the Purpose of:: To increase ROM TENS: Yes Cryotherapy (ice pack, ice massage): Yes Thermo therapy (hot pack): Yes Ultrasound (thermal/non thermal): Yes Last Seen Last Seen: This patient was last seen in our office . Pertinent comments regarding their Physical therapy will appear below: Patient has not attended PT in over 30 days appropriate to be d/c from PT and return to MD for further evaluation PRN. At this point I will be discontinuing this patient from physical therapy. I would be happy to see this patient again in the future if found appropriate by the physician. Thank you! Brinda Pepper DPT Balance/Gait/Functional tests Balance/Special Test Scores Quick DASH Score: 40.9075 <Electronically signed by rBinda Pepper DPT> 12/03/22 0907 CC: TINO ZULETA; [facility] ~ ELR Signed [facility] Work Phone: [phone]) 496-304008-01-2023 Miscellaneous Notes* Telephone Encounter - Gisela Vela - 10/15/2022 2:09 PM EDT Patient called requesting the following refill: Tramadol. This will be his fourth Tramadol Rx.which would be last Rx. He has used them very sparingly these few months post surgery. Patients last known Refill Date: 08-21-22 Patient Phone numbers: [phone] (home) Request is for script(s) to be escript to pharmacy. Gisela Phillips documented in this encounterMari[facility]08-[facility]-2023 Miscellaneous Notes* Telephone Encounter - Micha Coles - 10/15/2022 1:28 PM EDT Called patient, he has new insurance that is In network. Rescheduled patients appointment. * Telephone Encounter - Micha Coles - 10/15/2022 7:46 AM EDT Patient is on the wait list for the following: Nasim would like to reschedule end of November 2022, please call Nasim @[phone], thank you. documented in this encounterM[facility]06-06-2023 Miscellaneous Notes* Telephone Encounter - Gisela Phillips - 08/20/2022 4:07 PM EDT Patient called requesting the following refill: Tramadol. Patients last known Refill Date: 07-16-22 Patient Phone numbers: [phone] (home) Request is for script(s) to be escript to pharmacy. Gisela Lange [employer] Ppg documented [facility] Miscellaneous Notes* Telephone Encounter - Gisela Lange [employer] Ppg - 07/08/2022 2:25 PM EDT Patient called requesting a refill of Percocet. He has had four Rx's of that,s o putting in for Tramadol at this time per usual post-op protocol. Patients last known Refill Date: 06-26-22 Patient Phone numbers: [phone] (home) Request is for script(s) to be escript to pharmacy. Gisela Lange [place] Ppg documented in this encounterMari[facility]04-17-2023 [facility] CENTER POST-OP WEIGHT LOSS MANAGEMENT PROGRESS NOTE FOLLOW UP HPI, PHYSICAL EXAMINATION & PLAN HPI: Patient here today for follow up for weight loss management following surgical weight loss Weight trend since last visit: down 7 lb This patient's excess weight is causing the following co-morbid conditions at this time: HTN pre-diabetes Plan 1 - nuha not approved , I think we can get brody approved . Nasim is the lightest he has been in 2 years . 2 meal score looks great 46/50 Physical Examination: BP 129/73 Pulse (!) 46 Ht 5' 7 (1.702 m) Wt 215 lb (97.5 kg) BMI 33.67 kg/m? General: This patient is Alert General: This patient is awake, alert, and oriented, and is in no apparent distress. Extremities: No cyanosis, clubbing or edema/ No calf tenderness/No restrictions of movement, is ambulatory without assistance. Neurological: Intact x 4 extremities, no focal deficits notes. Skin: No rashes or lesions noted. Social History: This patient is accompanied by spouse for the evaluation today. He does not smoke, and does not drink alcohol. Current Diet This patient?s current diet is:high in simple carbohydrates His diet contains adequate amounts of protein, adequate amounts of healthy fats, adequate amounts of green, leafy vegetables, and adequate amounts of fruits. His comfort foods include:salty foods Current Activity This patient currently does not exercise. Current Eating Behaviors This patients demonstrates the following behaviors as they relate to his eating:eats at night He eats approximately 3-4 times per day. His last meal/snack was at 9 am/pm. Progress Made Towards Goals: 3 month weight goal: 15 6 month weight goal: 30 12 month weight goal: 45 Plan: MDM- pt's medical conditions place them at moderate risk of complications, morbidity and mortality. HTN: stable. continued medical management, DE and plan for metabolic weight loss and surgery. [x] Protein goal of 1g protein per 1 kg of ideal body weight: 90 grams [] Patient advised to maintain a food/exercise/behavior diary until next physician visit. Pt to bring the completed diary to next visit 30 minute clinial Other: 30 minute clinical time Physician Diet Recommendations given to patient See Follow up Section of today's encounter for next visit and additional scheduling [facility]04-17-2023 History of Present illness Narrative* Lakisha Velasco MA - 07/01/2022 10:20 AM EDT BAR[facility] ROOMING NOTE POST WEIGHT LOSS SURGERY FOLLOW UP Patient: Bradley Keys Service Date: 07/01/2022 Patient is 3 year(s) s/p RnY Gastric Bypass Today's Metrics: Post-Surgical Weight Loss Date: 07/01/22 Height: 5' 7 (170.2 cm) Weight: 215 lb (97.5 kg) BMI: 33.67 Weight Change: -9.4 lbs Total Weight Change: -144.4 lbs % EBWL: 68% Post-op Weight Metrics: Post-Surgical Weight Loss Date: 07/01/22 Height: 5' 7 (170.2 cm) Weight: 215 lb (97.5 kg) BMI: 33.67 Weight Change: -9.4 lbs Total Weight Change: -144.4 lbs % EBWL: 68% (From Surgical Weight Loss Tracker) Patient has the following questions: None Reported Pain: Patient rates pain on scale 0-10 as: 0 Exercise Compliance: Exercising: yes If yes: Type: physical therapy Times per week: 2 Min per session: 30 Falls Risk Assessment Patient does not take medications which affect BP or mental status Patient does not t have newly prescribed or changed dosage of medications within past 30 days whichaffect BP or mental status Patient has not fallen in the past 2 months Patient does not t demonstrate unsteady gait Patient uses the following ambulatory assistive devices: none Patient states the presence of the following traits which increases risk of fall: none Patient is not on home O2 Pre-op Weight Metrics: Labs Completed: no - If NO, patient instructed to get labs drawn today or [facility] If YES: Labs completed at [facility]? N/A If yes see Labs Tab Labs completed at Non-[facility] facility? N/A If yes see Encounters Tab - Orders only - Historical Provider - Date: Completed by: Lakisha Velasco MA * Piyush Rice MD - 07/01/2022 10:20 AM EDT [facility] POST-OP WEIGHT LOSS MANAGEMENT PROGRESS NOTE FOLLOW UP HPI, PHYSICAL EXAMINATION & PLAN HPI: Patient here today for follow up for weight loss management following surgical weight loss Weight trend since last visit: down 7 lb This patient's excess weight is causing the following co-morbid conditions at this time: HTN pre-diabetes Plan 1 - nuha not approved , I think we can get trulicity approved . Nasim is the lightest he has been in 2 years . 2 meal score looks great 46/50 Physical Examination: BP 129/73 Pulse (!) 46 Ht 5' 7 (1.702 m) Wt 215 lb (97.5 kg) BMI 33.67 kg/m General: This patient is Alert General: This patient is awake, alert, and oriented, and is in no apparent distress. Extremities: No cyanosis, clubbing or edema/ No calf tenderness/No restrictions of movement, is ambulatory without assistance. Neurological: Intact x 4 extremities, no focal deficits notes. Skin: No rashes or lesions noted. Social History: This patient is accompanied by spouse for the evaluation today. He does not smoke, and does not drink alcohol. Current Diet This patient s current diet is:high in simple carbohydrates His diet contains adequate amounts of protein, adequate amounts of healthy fats, adequate amounts of green, leafy vegetables, and adequate amounts of fruits. His comfort foods include:salty foods Current Activity This patient currently does not exercise. Current Eating Behaviors This patients demonstrates the following behaviors as they relate to his eating:eats at night He eats approximately 3-4 times per day. His last meal/snack was at 9 am/pm. Progress Made Towards Goals: 3 month weight goal: 15 6 month weight goal: 30 12 month weight goal: 45 Plan: MDM- pt's medical conditions place them at moderate risk of complications, morbidity and mortality. HTN: stable. continued medical management, DE and plan for metabolic weight loss and surgery. [x] Protein goal of 1g protein per 1 kg of ideal body weight: 90 grams [] Patient advised to maintain a food/exercise/behavior diary until next physician visit. Pt to bring the completed diary to next visit 30 minute clinial Other: 30 minute clinical time Physician Diet Recommendations given to patient See Follow up Section of today's encounter for next visit and additional scheduling orders documented in this [facility]04-12-2023 Miscellaneous Notes* Telephone Encounter - Gisela Lange [place] Ppg - 06/26/2022 11:53 AM EDT Patient called requesting a refill of post-op pain medication. Patients last known Refill Date: 06-14-22 Patient Phone numbers: [phone] (home) Request is for script(s) to be escript to pharmacy. Gisela Lange [place] Ppg documented in this encounterMarietta [facility]03-31-2023 History of Present illness Narrative* Desiree Gill PA-C - 06/14/2022 1:07 PM EDT Desiree Gill PA-C Department of Orthopaedics June 14, 2022 SURGERY: Right shoulder arthroscopic lysis of adhesions with manipulation CHIEF COMPLAINT: Established Patient, Follow Up, and Post Op of the Right Shoulder. SUBJECTIVE: Nasim returns to clinic today now 2 weeks status post the above procedure performed on 05/29/2022. Going to physical therapy in outside facility. Has been out of his sling. Taking Percocetfor pain. Exam: Examination of right shoulder reveals well-healed portal sites. Moderate ecchymoses. Some areas of superficial skin peeling from adhesive. No signs of infection. Passive forward elevation to 90. External rotation to 5. ASSESSMENT: 2 weeks status post right shoulder arthroscopic lysis of adhesions and manipulation SUMMARY/PLAN: We discussed his progress in 2 weeks out from the above procedure. We discussed consistent stretching and I showed him stretches he should be working on at home. I do not want him wearing the sling at all. I refilled his Percocet. Continue physical therapy. Recheck in 4 weeks. Desiree Gill PA-C documented in this encounterMarietta [facility]03-22-2023 Telephone encounter Note * Telephone Encounter - Anne Aburto MA - 06/05/2022 12:42 PM EDT Prior auth denied. [id number] Miscellaneous Notes* Telephone Encounter - Anne Aburto MA - 06/05/2022 12:42 PM EDT Prior auth denied. * Telephone Encounter - Stephany Navas MA - 06/04/2022 11:17 AM EDT PA started waiting on response pt informed. * Telephone Encounter - Selina Francis - 06/04/2022 7:55 AM EDT Name of caller: Bradley Contact phone number: [phone] Relationship to Patient: patient Provider: Dr Rice Practice: Weight management Chief Complaint/Reason for Call: Tirzepatide (Mounjaro) 2.5 MG/0.5ML solution pen-injector [[id number]] needs a PA on it and [facility] haven't received it yet and cant release it to the pt. Since PA was denied Pt would like to know when can he expect to get his insulin. Please call pt and advise Best time of day caller can be reached: any Patient advised that office/PCP has 24-48 business hours to return their call: No documented in this encounterSKettering Health [facility] So[facility] [id number] Miscellaneous Notes* Telephone Encounter - Gisela Lange [employer] Ppg - 06/04/2022 11:33 AM EDT Patient called requesting a refill of post-op pain medication. Patients last known Refill Date: 05-29-2022 Patient Phone numbers: [phone] (home) Request is for script(s) to be . Gisela Lange [place] Ppg documented in this encounterMarietta [facility]03-21-2023 Telephone encounter Note * Telephone Encounter - Stephany Navas MA - 06/04/2022 11:17 AM EDT PA started waiting on response pt informed. [facility] [id number] Miscellaneous Notes* Telephone Encounter - Lakisha Dill Sedc - 06/04/2022 9:38 AM EDT Order faxed. Lakisha Dill Sedc * Telephone Encounter - Gem Cormier Pss - 06/04/2022 8:41 AM EDT Spoke to the patient to schedule. Patient opted [facility] to [facility]. He is requesting for his order to be faxed to [facility], . Please fax order, the LL fax is down(ticket is in). * Telephone Encounter - Darcie Thomas - 06/04/2022 8:39 AM EDT Left VM for patient to go ahead and get PT scheduled. * Telephone Encounter - Zuleyma Morton RN - 06/04/2022 8:11 AM EDT He is to start PT 1 week from surgery * Telephone Encounter - Darcie Thomas - 06/04/2022 8:07 AM EDT Patient called in and asked when hes supposed to start PT? He had surgery on 05/29. documented in this encounterMarietta [facility]03-21-2023 Telephone encounter Note * Telephone Encounter - Selina Francis - 06/04/2022 7:55 AM EDT Name of caller: Bradley Contact phone number: [phone] Relationship to Patient: patient Provider: Dr Rice Practice: Weight management Chief Complaint/Reason for Call: Tirzepatide (Mounjaro) 2.5 MG/0.5ML solution pen-injector [[id number]] needs a PA on it and [facility]'t received it yet and cant release it to the pt. Since PA was denied Pt would like to know when can he expect to get his insulin. Please call pt and advise Best time of day caller can be reached: any Patient advised that office/PCP has 24-48 business hours to return their call: No [facility] [id number] History and physical note* FE Mason - 05/22/2022 10:40 AM EST HISTORY AND PHYSICAL EXAMINATION SERVICE DATE: 05/22/2022 SERVICE TIME: 11:01 AM PRIMARY CARE PHYSICIAN: Lia Eisenberg CNP REASON FOR VISIT: Bradley Keys is a 61 year old male who is scheduled for Procedure(s) with comments: Right shoulder arthroscopic capsular release (Right) - REG - BLOCK BY AAA at the request of Dr. Tino Zuleta for routine H&P. My final recommendation will be communicated back to the requesting physician by way of shared medical record or letter. Subjective The patient has the following: ACTIVE PROBLEM LIST Obstructive Sleep Apnea Controlled Type 2 Diabetes Mellitus With Diabetic Polyneuropathy, Without Long- Term Current Use of Insulin (Hcc) Essential Hypertension Mixed Hyperlipidemia Acquired Hypothyroidism Vitamin D Deficiency History of Gastric Bypass Coronary Artery Disease Involving [place] Coronary Artery of [place] Heart Without Angina Pectoris Gastroesophageal Reflux Disease Without Esophagitis Subdural Hemorrhage (Hcc) Occipital Bone Fracture (Hcc) Fall Scalp Laceration, Initial Encounter Dizziness Class 2 Severe Obesity With Serious Comorbidity and Body Mass Index (Bmi) of 37.0 to 37.9 in Adult (Hcc) Hx of Sinus Bradycardia Migraine Dvt of Upper Extremity (Deep Vein Thrombosis) (Formerly [facility]) Anxiety and Depression Carpal Tunnel Syndrome COVID-19 Immunization Status COVID-19 VACCINE (Series Information) Completed 02/21/2022 Imm Admin: COVID-19 booster vaccine, age 12+ yr, bivalent (Haptik-Aspida) 06/02/2020 Imm Admin: COVID-19 vaccine (AgLocal) CHIEF COMPLAINT: Preoperative Examination HPI: Patient presents to PST for the above procedure. Pt states he has had issues with his right shoulder since about 2014 that has worsened with time. Pt states current 8/10 pain in the right shoulder that is worsened with activity. Pt states occasional tingling in the right hand. Patient denies any other problems or concerns at this time. Risks and benefits of the procedure discussed by Surgeonand patient agreed to proceed with planned procedure. REVIEW OF SYSTEMS: General: No weight loss, malaise or fevers. Neurological: Negative for: headaches, seizures and strokes. Respiratory: Positive for: obstructive sleep apnea and CPAP/BiPAP compliant. Negative for: asthma, COPD, current cough, dyspnea and tobacco use. Cardiovascular: Positive for: CAD, DVT/PE, hyperlipidemia and hypertension Negative for: AICD/PPM, angina, anticoagulation therapy, atrial fibrillation, chest pain and CHF. GI: Negative for: abdominal pain, dysphagia, nausea and vomiting. : Negative for: frequent urination, hematuria and urgency. Endocrine: Positive for: diabetes mellitus and hypothyroidism. Patient's diabetes mellitus is controlled by oral agents. Negative for: hyperthyroidism. Hematology: Negative for: anemia, bruises/bleeds easily and chronic anti- coagulation/platelet meds. Oncology: No history of CA metastasis, chemo within 30 days, or radiotherapy within 90 days. No history of oncological symptoms or problems. Psych: Negative for: anxiety and depression. Musculoskeletal: See HPI. Skin: Negative for lesions, rash and itching. 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 no brain surgery , but needed rehab to learn to walk and talk again Coronary artery disease Diabetes (HCC) states no longer since gastric bypass with weight loss Hyperlipidemia Hypertension Hypothyroidism Obese Sleep apnea uses bypap Vitamin D deficiency PAST SURGICAL HISTORY Procedure Laterality Date CHOLECYSTECTOMY HX 2018 GASTRIC BYPASS HX 2018 HEMORRHOIDECTOMY INTERNAL RUBBER BAND LIGATIONS Hemorrhoidectomy MANJ W/ANES SHOULDER JOINT W/FIXATION APPARATUS Right 11/07/2021 Right shoulder manipulation under anesthesia with injection given right shoulder PAST SURGICAL HISTORY OF lymph node biopsy PAST SURGICAL HISTORY OF jonathan cyst on head PAST SURGICAL HISTORY OF 2018 hiatal hernia repair PAST SURGICAL HISTORY OF Bilateral 05/2021 Excess breast skin removal post gastric bypass - and abdominal skin removal - REVISE MEDIAN N/CARPAL TUNNEL SURG Right 11/07/2021 Right carpal tunnel release and Right shoulder manipulation under anesthesia REVISE MEDIAN N/CARPAL TUNNEL SURG Right 11/07/2021 Right carpal tunnel release REVISE MEDIAN N/CARPAL TUNNEL SURG Left 04/19/2022 Left Carpal tunnel release STENTS (SPECIFY) cardiac x 1 TONSILLECTOMY PRIMARY/SECONDARY <AGE 12 Tonsillectomy FAMILY HISTORY Problem Relation Age of Onset Cancer Father lung Diabetes Mother Social History Tobacco Use Smoking status: Never Smokeless tobacco: Never Vaping Use Vaping Use: Never used Substance Use Topics Alcohol use: No Drug use: No Prior to Admission medications as of 05/20/22 1518 Medication Sig Last Dose Taking acetaminophen (TYLENOL) 325 mg tablet Take 650 mg by mouth every 6 hours as needed. Taking Yes EAR DROPS 6.5 % otic solution instill 5 (FIVE) drops TWICE DAILY bilateral ears for 4 days Taking Yes NURTEC ODT 75 mg disintegrating tablet TAKE 1 TABLET BY MOUTH DAILY NEEDED for onset OF migrainse, no more than 1 (ONE) dose in 24 hours DIRECTED FOR 30 DAYS Taking Yes aspirin 81 mg chewable tablet Take 81 mg by mouth once daily. Taking Yes metFORMIN ER (GLUCOPHAGE XR) 500 mg 24 hr tablet Take 500 mg by mouth once daily. Taking Yes blood sugar diagnostic (ONETOUCH VERIO TEST STRIPS) test strip Use to test glucose once daily as directed. DX: E11.42, non insulin dependent. Taking Yes OYSTER SHELL CALCIUM-VITAMIN D 500 mg(1,250mg) -200 unit per tablet Take 1 tablet by mouth once daily. Taking Yes docusate sodium (COLACE) 100 mg capsule Take 100 mg by mouth as needed. Taking Yes lancets (ONE TOUCH DELICA) 33 gauge Use to test glucose once daily as directed. DX: E11.42, non insulin dependent. Taking Yes Blood-Glucose Meter (ONETOUCH VERIO METER) Use to test glucose once daily as directed. DX: E11.42, non insulin dependent. Taking Yes Zinc 50 mg tab Take 50 mg by mouth once daily. Taking Yes vitamin B complex (B COMPLEX 1 ORAL) Take by mouth twice daily. Taking Yes multivit with minerals/lutein (CEROVITE SENIOR ORAL) Take by mouth. Taking Yes topiramate (TOPAMAX) 50 mg tablet Take 50 mg by mouth twice daily. Taking Yes atorvastatin (LIPITOR) 40 mg tablet Take 40 mg by mouth once daily. Taking Yes melatonin 3 mg tablet Take 2 tablets by mouth daily at bedtime. Taking Yes Cholecalciferol, Vitamin D3, 2,000 unit cap Take 2 capsules by mouth once daily. Taking Yes omeprazole (PRILOSEC) 20 mg capsule Take 20 mg by mouth once daily. Taking Yes citalopram (CELEXA) 20 mg tablet Take 30 mg by mouth once daily. Taking Yes levothyroxine (SYNTHROID) 100 mcg tablet Take 100 mcg by mouth daily before breakfast. Taking Yes cyanocobalamin, vitamin B-12, (VITAMIN B-12 ORAL) Take 500 Units by mouth one time a week. Taking Yes multivit-min/folic/vit K/lycop (ONE-A-DAY MEN'S MULTIVITAMIN ORAL) Take 1 tablet by mouth once daily. Taking Yes No medication comments found. ALLERGIES Allergen Reactions Celebrex [Celecoxib] blisters from head to toe Objective PHYSICAL EXAM: General: alert and oriented, healthy appearance and obese. Pertinent negatives noted - not distressed. Skin: normal color, no rash or lesions. HEENT: EOM intact and pupils equal round. Cardiovascular: regular rate and rhythm, normal S1 and S2, no rub, murmurs, or gallop. Respiratory: normal breath sounds, no wheezes or crackles. No chest wall deformity or tenderness. Abdomen: bowel sounds present. Pertinent negatives noted - no abnormal bowel sounds. Extremities: no deformity, no edema or tenderness, no joint swelling or clubbing. Neurological: normal cognition and motor skills. Gait normal. No weakness or sensory deficit. PAIN ASSESSMENT: Pain Pain Level: 8 Description: Aching Frequency: Continuous VITALS: BP 124/64 Pulse 55 Temp 97.5 Resp 16 Ht 5' 8 (1.73m) Wt 220 lb (99.8kg) SpO2 95% BMI33.46 kg/(m^2). Diagnostic tests reviewed for today's visit: Lab Value Units Date High Low HB No results within date range. HCT No results within date range. WBC No results within date range. PLT No results within date range. NA No results within date range. K No results within date range. GLUC No results within date range. BUN No results within date range. CREAT No results within date range. PTSEC No results within date range. INR No results within date range. APTT No results within date range. ALT No results within date range. AST No results within date range. TBILI No results within date range. TSH No results within date range. Lab Value Units Date High Low HCGQT No results within date range. UHCG No results within date range. HCG, BODY* No results within date range. Lab Value Units Date High Low ABORHD No results within date range. ABSCREEN No results within date range. Hemoglobin A1C (%) Date Value 03/25/2019 5.3 11/29/2011 10.2 HBA1C, Nguyễn (%) Date Value 08/28/2011 10.3 10/02/2010 8.1 10/31/2009 11.9 08/01/2009 10.3 12/30/2008 9.6 Hemoglobin A1C (POCT) (%) Date Value 09/07/2020 5.3 08/26/2019 5.1 10/01/2018 5.2 06/01/2018 6.5 Recent Results (from the past 8760 hour(s)) ECG COMPLETE Collection Time: 10/31/21 10:10 AM Result Value Ventricular Rate 42 Atrial Rate 42 P-R Interval 176 QRS Duration 122 QT Interval 522 QTC Calculation (Bazett) 435 Calculated P [place] 42 Calculated R [place] 72 Calculated T [place] 39 Impression MARKED SINUS BRADYCARDIA NONSPECIFIC INTRAVENTRICULAR CONDUCTION DELAY ABNORMAL ECG Confirmed by MADELINE RUIZ DO ([id number]) on 11/08/2021 5:24:26 PM No results found for this or any previous visit (from the past 75575 hour(s)). Assessment Patient has the following medical conditions which may affect vidya-operative course: Controlled type 2 diabetes mellitus with diabetic polyneuropathy, without long- term current use of insulin (HCC) Metformin 500mg. A1C 5.3 on 09/07/20. Subdural hemorrhage (HCC) Occurred about 3 years ago. Pt states residual balance issues and strength decreases. Pt states recurrent migraines as well. Essential hypertension No medication. Mixed hyperlipidemia Atorvastatin 40MG Coronary artery disease involving false pass coronary artery of false pass heart without angina pectoris ASA 81mg. NM occurred about 8 years ago. Pt states he has a stent that was placed about 8 years ago. 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 Obstructive sleep apnea BiPAP compliant. Acquired hypothyroidism Synthroid 100mcg. TSH 1.410 on 08/26/19 DVT of upper extremity (deep vein thrombosis) (HCC) ASA 81mg. Occurred following surgery. Pt states it was due to the IV. Pt was on eliquis initially. Hx of sinus bradycardia Pt states this has been present for many years. Etienne Activity Status Index: METS: Climb a flight of stairs or walk up a hill (5.50 METs) DASI Score: 5.5 Patient denies any chest pain or undue shortness of breath with the above physical activity. Clinical Frailty Scale: 3. Well, with treated comorbid disease ARISCAT Score: Age: 51-80 Preoperative SpO2: 91-95% Respiratory infection in the last month: No Preoperative anemia: No Surgical incision: peripheral Duration of surgery: <2 hrs Emergency procedure: No ARISCAT Score: 11 ANESTHESIA FINDINGS: Intubation History: No history of difficult intubation. No abnormal airway history Significant Anesthesia Considerations: potential slow emergence Airway History: No history of difficult airway No abnormal airway history I - PHYSICAL EVALUATION AIRWAY Patient intubated: No. DENTAL Dental findings: teeth intact and missing tooth/teeth. Dentures, upper: complete. II - ANESTHESIA PLAN Anesthetic Plan: general Beta Freedom Monitoring Plan Post Procedure Analgesic Plan Prepared for Surgery: CONSULTS: Patient does not require consults for optimization at this time Planned Anesthetic: general The Following Tests/Procedures Have Been Initiated: No orders of the defined types were placed in this encounter. Implantable Devices: Cardiac stent. Pt instructed to Hold Metformin DOS. Pt instructed to contact surgeon and prescribing provider for instructions regarding blood thinners. The Following Tests/Procedures Have Been Initiated: None Assessment/Plan Adhesive capsulitis of right shoulder [M75.01] Chronic right shoulder pain [M25.511, G89.29] Impingement syndrome of right shoulder [M75.41] PLAN Diagnosis: Planned Procedure: Procedure(s) with comments: Right shoulder arthroscopic capsular release (Right) - REG - BLOCK BY AAA I spent a total of 45 minutes on the date of the service which included preparing to see the patient, [id number] patient care, completing clinical documentation, and performing a medically appropriate examination. Instructions Given to Patient: Instructions located in the after visit summary. Patient given verbal and written preop instructions and voices comprehension and compliance. SIGNATURE: FE Mason PATIENT NAME: Bradley Keys DATE: May 22, 2022 TIME: 8:10 AM PAGER/CONTACT #: documented in [facility] Instructions* Patient Instructions* FE Mason - 05/22/2022 8:10 AM EST PATIENT PREOPERATIVE INSTRUCTIONS Your surgeon has scheduled for your procedure at this surgery center: [facility]: [phone], [address], [place] [address] Please enter through the main entrance and proceed to the blue elevators. The surgery welcome center is located to the left of the blue elevator. Please read below carefully for your personalized instructions. Arrival Time for Surgery: DATE: 05/29/22 - To obtain your ARRIVAL TIME for surgery, call your physician's office the day before your surgery. - If your surgery is scheduled for Friday, call the Friday before. Your surgeon's acoustics teacher will tell you what time to call the office. - Please be aware that emergency situations arise, which may delay or change your surgical time. Ifthis happens, we will notify you as soon as possible and regret any inconvenience. Requirement for Vaccinations : 72-hour period between getting vaccine and date of surgery. Dietary Restrictions: - Nothing to eat after midnight. Blood Thinning Medications: - Stop NSAIDS (Ibuprofen, Advil, Aleve, Motrin, Celebrex, Mobic, etc.) 7 days before surgery, as directed by your surgeon. You may take Tylenol (Acetaminophen) or any of your pain medications that do not contain aspirin orNSAIDS as needed. IF YOU TAKE ANY OF THE FOLLOWING BLOOD THINNERS, PLEASE CONTACT YOUR SURGEON AND THE PHYSICIAN WHO PRESCRIBES IT FOR YOU IN ORDER TO GET PERIOPERATIVE INSTRUCTIONS SOON POSSIBLE. BLOOD THINNERS: Aspirin , Coumadin, Plavix, Eliquis, Pradaxa, Xarelto, Lovenox, Brilinta, Effient, Savaysa, Arixtra, etc - Stop Vitamin E, fish oil, multivitamins, Marijuana, CBD oil and other over the counter herbals and dietary supplements 7 days before surgery. -This would not apply to cancer patients who are prescribed Marinol or any other prescription form on marijuana or CBD. -exception Dr. Lei and Dr. Whittington want their patients npo at midnight. Medications: Approved medications to take the morning of surgery with a sip of water: BP, HCTZ, Heart, thyroid, psych, seizure, and pain medications excluding NSAIDS. Use inhalers as prescribed. Please bring inhalers. Diabetes Please follow up with the provider that manages your diabetes and how to prepare you for surgery. If you are taking the following medications for Type 2 diabetes: Canagliflozin (INVOKANA), dapagliflozin (FARXIGA), and empagliflozin (JARDIANCE) should each be discontinued at least 3 days before scheduled surgery. Ertugliflozin (STEGLATRO) should be discontinued at least four days before scheduled surgery. If you have a stimulator, implant or pump that requires a remote please bring the remote with you day of surgery. Erectile dysfunction: If you take any medications for erectile dysfunction- Cialis (Tadalafil), Levitra, Staxyn, (Vardenafil), Viagra (Sildenenafil). Please do not take these for 48 hours before surgery. Pain Medications: Tylenol for pain as needed and if you are not allergic to. If you start any new medications after today's visit, please contact the surgeon's office. Important Reminders: - If you use CPAP/BIPAP, bring the machine with you to the surgery center. - If you are prescribed inhalers for breathing, continue using them AND bring them to the surgery center. - Candy, mints, gum and tobacco products are NOT permitted the morning of surgery. - Hearing aids, dentures and glasses may be worn the morning of surgery. - NO jewelry, body piercings, makeup, hairpins or contacts are to be worn the day of surgery. -Oral hygiene and a shower or bath is required the evening before or the morning of surgery. Use the Lore body wash supplied to you along with the instruction. - NO lotion, creams, powders or deodorants on the skin the day of surgery -Wear loose, comfortable clothing that will accommodate bandages. -Your length of stay will be determined by your surgeon - You will need to have someone else (Family or friend) drive you home once discharged from the hospital. You are not allowed to drive yourself home after surgery. - YOU MUST HAVE A RESPONSIBLE INTEGRATION DIRECTOR TAKE YOU HOME. A PURCHASE PRICE ANALYST, CAB OR UBER INTEGRATION DIRECTOR CANNOT BE MADEA RESPONSIBLE INTEGRATION DIRECTOR. - You cannot stay in a hotel alone after outpatient surgery. You will not be permitted to have yoursurgery, if you do not have someone to take care of you. CCAG: Given COVID 19 pandemic, one visitor is allowed in the hospital. They may wait in the surgerywaiting room while you are in surgery but must wear a mask. Only one visitor will be permitted to visit you while your admitted after surgery. If you develop symptoms such as a fever, cold, or flu, or have other changes to your health within TWO DAYS of scheduled surgery or the morning of surgery, please contact the surgery center above. Personal Belongings: - Leave ALL valuables and money at home or with family members. - You will need a form of ID and insurance card to check in the morning of surgery. - You will have to wear a hospital gown during your stay but if you wish to bring undergarments forafter surgery you may. Ambulatory surgery center [place]- orthopedic patients needing a walker should bring the walker into the building day of surgery. Orthopedic patients having surgery [facility] listed as outpatient should bring their walker into the building. Orthopedic patients having surgery [facility] listed as to be admitted should leave their walkers in the car or with a family member. FE Mason 05/22/22 documented in this encounterM[facility]03-07-[facility]23 [facility]-OP WEIGHT LOSS MANAGEMENT PROGRESS NOTE FOLLOW UP HPI, PHYSICAL EXAMINATION & PLAN HPI: Patient here today for follow up for weight loss management following surgical weight loss Weight trend since last visit: down 7 lb This patient's excess weight is causing the following co-morbid conditions at this time: HTN pre-diabetes Plan 1 - vielka worked well but insurance denied second script , will try adan Nasim was a diabetic and has opre-diabetes now on metformin . Meal scor e46/50 Physical Examination: BP (!) 146/83 Pulse 53 Ht 5' 7 (1.702 m) Wt 224 lb 3.2 oz (102 kg) BMI 35.11 kg/m? General: This patient is Alert General: This patient is awake, alert, and oriented, and is in no apparent distress. Extremities: No cyanosis, clubbing or edema/ No calf tenderness/No restrictions of movement, is ambulatory without assistance. Neurological: Intact x 4 extremities, no focal deficits notes. Skin: No rashes or lesions noted. Social History: This patient is accompanied by spouse for the evaluation today. He does not smoke, and does not drink alcohol. Current Diet This patient?s current diet is:high in simple carbohydrates His diet contains adequate amounts of protein, adequate amounts of healthy fats, adequate amounts of green, leafy vegetables, and adequate amounts of fruits. His comfort foods include:salty foods Current Activity This patient currently does not exercise. Current Eating Behaviors This patients demonstrates the following behaviors as they relate to his eating:eats at night He eats approximately 3-4 times per day. His last meal/snack was at 9 am/pm. Progress Made Towards Goals: 3 month weight goal: 15 6 month weight goal: 30 12 month weight goal: 45 Plan: MDM- pt's medical conditions place them at moderate risk of complications, morbidity and mortality. HTN: stable. continued medical management, DE and plan for metabolic weight loss and surgery. [x] Protein goal of 1g protein per 1 kg of ideal body weight: 90 grams [] Patient advised to maintain a food/exercise/behavior diary until next physician visit. Pt to bring the completed diary to next visit 30 minute clinial Other: 30 minute clinical time Physician Diet Recommendations given to patient See Follow up Section of today's encounter for next visit and additional scheduling [facility]03-07-[facility]23 History of Present illness Narrative* Lakisha Velasco MA - 05/21/2022 12:50 PM EST [facility] ROOMING NOTE POST WEIGHT LOSS SURGERY FOLLOW UP Patient: Bradley Keys Service Date: 05/21/2022 Patient is 4 year(s) s/p RnY Gastric Bypass Today's Metrics: Post-Surgical Weight Loss Date: 05/21/22 Height: 5' 7 (170.2 cm) Weight: 224 lb 6.4 oz (102 kg) BMI: 35.14 Weight Change: -7.2 lbs Total Weight Change: -135 lbs % EBWL: 64% Post-op Weight Metrics: Post-Surgical Weight Loss Date: 05/21/22 Height: 5' 7 (170.2 cm) Weight: 224 lb 6.4 oz (102 kg) BMI: 35.14 Weight Change: -7.2 lbs Total Weight Change: -135 lbs % EBWL: 64% (From Surgical Weight Loss Tracker) Patient has the following questions: None Reported Pain: Patient rates pain on scale 0-10 as: 0 Exercise Compliance: Exercising: no If yes: Type: none Times per week: 0 Min per session: 0 Falls Risk Assessment Patient does not take medications which affect BP or mental status Patient does not t have newly prescribed or changed dosage of medications within past 30 days whichaffect BP or mental status Patient has not fallen in the past 2 months Patient does not t demonstrate unsteady gait Patient uses the following ambulatory assistive devices: none Patient states the presence of the following traits which increases risk of fall: none Patient is not on home O2 Pre-op Weight Metrics: Labs Completed: - If NO, patient instructed to get labs drawn today or [facility] If YES: Labs completed at [facility]? If yes see Labs Tab Labs completed at Non-[facility] facility? If yes see Encounters Tab - Orders only - Historical Provider - Date: Completed by: Lakisha Velasco MA * Piyush Rice MD - 05/21/2022 12:50 PM EST [facility] POST-OP WEIGHT LOSS MANAGEMENT PROGRESS NOTE FOLLOW UP HPI, PHYSICAL EXAMINATION & PLAN HPI: Patient here today for follow up for weight loss management following surgical weight loss Weight trend since last visit: down 7 lb This patient's excess weight is causing the following co-morbid conditions at this time: HTN pre-diabetes Plan 1 - ozembic worked well but insurance denied second script , will try moujaro Nasim was a diabetic and has opre-diabetes now on metformin . Meal scor e46/50 Physical Examination: BP (!) 146/83 Pulse 53 Ht 5' 7 (1.702 m) Wt 224 lb 3.2 oz (102 kg) BMI 35.11 kg/m General: This patient is Alert General: This patient is awake, alert, and oriented, and is in no apparent distress. Extremities: No cyanosis, clubbing or edema/ No calf tenderness/No restrictions of movement, is ambulatory without assistance. Neurological: Intact x 4 extremities, no focal deficits notes. Skin: No rashes or lesions noted. Social History: This patient is accompanied by spouse for the evaluation today. He does not smoke, and does not drink alcohol. Current Diet This patient s current diet is:high in simple carbohydrates His diet contains adequate amounts of protein, adequate amounts of healthy fats, adequate amounts of green, leafy vegetables, and adequate amounts of fruits. His comfort foods include:salty foods Current Activity This patient currently does not exercise. Current Eating Behaviors This patients demonstrates the following behaviors as they relate to his eating:eats at night He eats approximately 3-4 times per day. His last meal/snack was at 9 am/pm. Progress Made Towards Goals: 3 month weight goal: 15 6 month weight goal: 30 12 month weight goal: 45 Plan: MDM- pt's medical conditions place them at moderate risk of complications, morbidity and mortality. HTN: stable. continued medical management, DE and plan for metabolic weight loss and surgery. [x] Protein goal of 1g protein per 1 kg of ideal body weight: 90 grams [] Patient advised to maintain a food/exercise/behavior diary until next physician visit. Pt to bring the completed diary to next visit 30 minute clinial Other: 30 minute clinical time Physician Diet Recommendations given to patient See Follow up Section of today's encounter for next visit and additional scheduling orders documented in this [facility]02-15-2023 History of Present illness Narrative* Tino Zuleta MD - 05/01/2022 8:36 AM EST ORTHOPAEDIC SHOULDER & ELBOW SERVICE HISTORY & PHYSICAL EXAM REFERRING PROVIDER: Chico Franz [address] [facility] [address] CHIEF COMPLAINT: Bilateral shoulder stiffness and pain PAIN EVALUATION No data found in the last 1 encounters. Bradley Keys is a 61 year old man who presents today for evaluation of the bilateral shoulders due to ongoing problems with stiffness and pain. He has been referred by my partner after failure ofimprovement with manipulation and injection of the right shoulder summer. He continues have difficulty using the arm for daily tasks due to the limited mobility and pain in the shoulders. There has been some concern that he may have had a stroke and he will be going to see neurology fora more complete evaluation. 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 no brain surgery , but needed rehab to learn to walk and talk again Coronary artery disease Diabetes (HCC) states no longer since gastric bypass with weight loss Hyperlipidemia Hypertension Hypothyroidism Obese Sleep apnea uses bypap Vitamin D deficiency PAST SURGICAL HISTORY: PAST SURGICAL HISTORY Procedure Laterality Date CHOLECYSTECTOMY HX 2018 GASTRIC BYPASS HX 2018 HEMORRHOIDECTOMY INTERNAL RUBBER BAND LIGATIONS Hemorrhoidectomy MANJ W/ANES SHOULDER JOINT W/FIXATION APPARATUS Right 11/07/2021 Right shoulder manipulation under anesthesia with injection given right shoulder PAST SURGICAL HISTORY OF lymph node biopsy PAST SURGICAL HISTORY OF jonathan cyst on head PAST SURGICAL HISTORY OF 2018 hiatal hernia repair PAST SURGICAL HISTORY OF Bilateral 05/2021 Excess breast skin removal post gastric bypass 3- and abdominal skin removal - REVISE MEDIAN N/CARPAL TUNNEL SURG Right 11/07/2021 Right carpal tunnel release and Right shoulder manipulation under anesthesia REVISE MEDIAN N/CARPAL TUNNEL SURG Right 11/07/2021 Right carpal tunnel release REVISE MEDIAN N/CARPAL TUNNEL SURG Left 04/19/2022 Left Carpal tunnel release STENTS (SPECIFY) cardiac x 1 TONSILLECTOMY PRIMARY/SECONDARY <AGE 12 Tonsillectomy SOCIAL HISTORY: Social History Tobacco Use Smoking status: Never Smokeless tobacco: Never Vaping Use Vaping Use: Never used Substance Use Topics Alcohol use: No Drug use: No ALLERGIES: ALLERGIES Allergen Reactions Celebrex [Celecoxib] blisters from head to toe MEDICATIONS: Current Outpatient Medications on File Prior to Visit Medication Sig NURTEC ODT 75 mg disintegrating tablet TAKE 1 TABLET BY MOUTH DAILY NEEDED for onset OF migrainse, no more than 1 (ONE) dose in 24 hours DIRECTED FOR 30 DAYS OZEMPIC 0.25 mg or 0.5 mg(2 mg/1.5 mL) pen INJECT 0.25 MG UNDER THE SKIN EVERY WEEK aspirin 81 mg chewable tablet Take 81 mg by mouth once daily. tiZANidine HCl (ZANAFLEX) 4 mg capsule Take 4 mg by mouth once daily as needed. metFORMIN ER (GLUCOPHAGE XR) 500 mg 24 hr tablet Take 500 mg by mouth once daily. blood sugar diagnostic (WebtalkUCH VERIO TEST STRIPS) test strip Use to test glucose once daily as directed. DX: E11.42, non insulin dependent. OYSTER SHELL CALCIUM-VITAMIN D 500 mg(1,250mg) -200 unit per tablet Take 1 tablet by mouth once daily. docusate sodium (COLACE) 100 mg capsule Take 100 mg by mouth as needed. lancets (ONE TOUCH DELICA) 33 gauge Use to test glucose once daily as directed. DX: E11.42, non insulin dependent. Blood-Glucose Meter (WhisperTOUCH VERIO METER) Use to test glucose once daily as directed. DX: E11.42, non insulin dependent. Zinc 50 mg tab Take 50 mg by mouth once daily. vitamin B complex (B COMPLEX 1 ORAL) Take by mouth twice daily. multivit with minerals/lutein (CEROVITE SENIOR ORAL) Take by mouth. topiramate (TOPAMAX) 50 mg tablet Take 50 mg by mouth twice daily. atorvastatin (LIPITOR) 40 mg tablet Take 40 mg by mouth once daily. melatonin 3 mg tablet Take 2 tablets by mouth daily at bedtime. Cholecalciferol, Vitamin D3, 2,000 unit cap Take 2 capsules by mouth once daily. omeprazole (PRILOSEC) 20 mg capsule Take 20 mg by mouth once daily. citalopram (CELEXA) 20 mg tablet Take 30 mg by mouth once daily. levothyroxine (SYNTHROID) 100 mcg tablet Take 100 mcg by mouth daily before breakfast. cyanocobalamin, vitamin B-12, (VITAMIN B-12 ORAL) Take 500 Units by mouth one time a week. multivit-min/folic/vit K/lycop (ONE-A-DAY MEN'S MULTIVITAMIN ORAL) Take 1 tablet by mouth once daily. No current facility-administered medications on file prior to visit. PHYSICAL EXAMINATION: There were no vitals taken for this visit. EXAM: Shoulder Musculoskeletal Exam Inspection Right Ecchymosis: none Peripheral edema: none Atrophy: none Symmetry: symmetric Masses: none Skin tenting: none Prior incision: none Palpation Right Crepitus: mild Increased warmth: none Tenderness: present Anterior shoulder: moderate Posterior shoulder: moderate Clavicle: none AC joint: none Sternoclavicular joint: none Rotator cuff: mild Greater tuberosity: mild Trapezius: mild Medial scapula: none Superior pole of scapula: none Inferior pole of scapula: none Bicipital groove: mild Proximal biceps: mild Range of Motion Right Active ROM: abnormal and pain. Passive ROM: abnormal and pain. Active forward elevation: 80. Passive forward elevation: 80. Shoulder active abduction: 80. Passive abduction: 80. Active external rotation at side: 10. Passive external rotation at side: 10. Active external rotation in abduction: 10. Passive external rotation in abduction: 10. Active internal rotation in abduction: 0. Passive internal rotation in abduction: 0. Internal rotation: sacrum. Strength Right External rotation: 5/5. Internal rotation: 5/5. Abduction: 5/5. Neurovascular Right Right shoulder nerve sensation is normal. Axillary nerve sensory distribution: normal Scapula Right Position: normal Dyskinesia: none Winging: none Special Tests Right Rotator Cuff Signs Supraspinatus: negative Belly press test: negative Painful arc test: positive Lift-off sign: negative Drop arm test: negative Biceps/mahesh Signs Buffalo's test: positive AC Joint Signs Active horizontal adduction pain: negative Single finger test: negative General Constitutional: appears stated age Labored breathing: no Psychiatric: normal mood and affect and no acute distress Neurological: alert and oriented x3 Skin: intact Lymphadenopathy: none IMAGING: I personally reviewed the MRI of the right shoulder in the office today, and I am in agreement withthe radiologist's interpretation with the following modifications: None DATE OF EXAM: Aug 16 2021 9:14AM WR [id number] - MRI SHOULDER WO IVCON RT / PROCEDURE REASON: multiple diagnoses * * * * Physician Interpretation * * * * EXAMINATION: MRI SHOULDER WO IVCON RT HISTORY: Chronic pain of both shoulders. Limited range of motion. TECHNIQUE: Routine non-contrast MRI of the shoulder. MQ: [id number] COMPARISON: Radiograph dated 06/13/2021. RESULT: Motion degraded sequences despite repeat attempts. TENDONS: Rotator cuff tendons: -Supraspinatus: Intact with marked tendinosis -Infraspinatus: Intact with moderate tendinosis -Subscapularis: Intact with mild tendinosis -Teres Minor: Intact tendon Biceps (Long head) Tendon: Intact , with normal course MUSCLES: Rotator cuff muscles: -Supraspinatus: Preserved bulk and no fatty changes. -Infraspinatus: Mild atrophy and mild fatty changes. -Subscapularis: No atrophy and mild fatty changes. -Teres Minor: Mild atrophy and mild fatty changes. Other muscles: Preserved signal and bulk in the deltoid. JOINTS: Glenohumeral Joint: -Labrum: Glenoid labrum appears to be intact. -Cartilage: Normal -Joint Fluid: No effusion . No synovitis. Acromioclavicular Joint: Mild hypertrophic degenerative changes BONES AND MARROW: No evidence of fracture or suspicious bone marrow replacing process . Reactive subcortical cystic changes at the greater tuberosity. OTHER: Subdeltoid/Subacromial Bursa: Minimal bursal distention /thickening Other: No other significant findings. Localizer images: No additional findings. MEDICAL DECISION MAKING: (M25.611, M25.612) Shoulder joint stiffness, bilateral (primary encounter diagnosis) Comment: Plan: This is a 61-year-old man with ongoing problems related to painful stiffness in both shoulders which is more noticeable on the right side. He has failed to improve with conservative measures and today we discussed surgical options. (M25.512) Left shoulder pain, unspecified chronicity Comment: Continue PT Plan: (M25.511) Right shoulder pain, unspecified chronicity Comment: Plan: After thorough review of history, examination findings, and imaging, we discussed surgical intervention today which would be arthroscopic capsular release and manipulation. I described the procedure in detail as well as the expected healing time of 3-6 months and physical therapy regimen following surgery, likely for much of this time. Informed consent was discussed in detail and signed in the office today. Significant risks of surgery including those of general anesthesia, and those fromsurgery including infection, nerve injury, bleeding, procedure failure and possible need for repeatprocedure were all discussed at the time of consent. No guarantees as to the outcome of surgery were given or implied. Surgery will be scheduled for the next available date. Medical decision making for today's visit was conducted with review of the following data sources: History, exam, imaging REFERRING PHYSICIAN: The patient was referred to me for consultation by the following physician. This consultation note will be sent to the following physician by either mail or electronic medical record. Chico Franz [address] [facility] [address] Tino Zuleta MD Shoulder & Elbow Surgeon Department of Orthopaedic Surgery [facility] documented in this encounterM[facility]02-13-[facility]23 History of Present illness Narrative* Carla Montanez PA-C - 04/29/2022 1:53 PM EST Carla Montanez PA-C Department of Orthopaedics Orthopaedics [address] [facility] [address] Dept: [phone] Dept April 29, 2022 CHIEF COMPLAINT: Established Patient and Post Op of the Left Hand. ASSESSMENT: G56.02 Left carpal tunnel syndrome (primary encounter diagnosis) SUMMARY/PLAN: Patient presents 1 week and 3 days status post left carpal tunnel release. He unfortunately misunderstood and has not removed his postoperative dressing. He denies any pain today. We discussed properhand washing, no soaking of the operative hand. No heavy lifting, pushing or pulling with the operative hand, encourage gentle motion. We discussed scar massage. Follow up as planned. Exam: Incision sites well approximated without erythema or drainage, there is mild but appropriate edema at the base of the palm without ecchymosis. Patient is freely using the hand without discomfort, canform a full composite fist and extend all digits, sensations intact in the radial 3 digits. Imaging: Deferred today Mr. Bradley Keys was advised as to contrast therapies and/or to take analgesics/anti-inflammatories as needed and all contraindications were reviewed. Supporting Information Below: Medications: Current Outpatient Medications Medication Sig NURTEC ODT 75 mg disintegrating tablet TAKE 1 TABLET BY MOUTH DAILY NEEDED for onset OF migrainse, no more than 1 (ONE) dose in 24 hours DIRECTED FOR 30 DAYS OZEMPIC 0.25 mg or 0.5 mg(2 mg/1.5 mL) pen INJECT 0.25 MG UNDER THE SKIN EVERY WEEK aspirin 81 mg chewable tablet Take 81 mg by mouth once daily. metFORMIN ER (GLUCOPHAGE XR) 500 mg 24 hr tablet Take 500 mg by mouth once daily. OYSTER SHELL CALCIUM-VITAMIN D 500 mg(1,250mg) -200 unit per tablet Take 1 tablet by mouth once daily. Zinc 50 mg tab Take 50 mg by mouth once daily. vitamin B complex (B COMPLEX 1 ORAL) Take by mouth twice daily. multivit with minerals/lutein (CEROVITE SENIOR ORAL) Take by mouth. topiramate (TOPAMAX) 50 mg tablet Take 50 mg by mouth twice daily. atorvastatin (LIPITOR) 40 mg tablet Take 40 mg by mouth once daily. melatonin 3 mg tablet Take 2 tablets by mouth daily at bedtime. Cholecalciferol, Vitamin D3, 2,000 unit cap Take 2 capsules by mouth once daily. omeprazole (PRILOSEC) 20 mg capsule Take 20 mg by mouth once daily. citalopram (CELEXA) 20 mg tablet Take 30 mg by mouth once daily. levothyroxine (SYNTHROID) 100 mcg tablet Take 100 mcg by mouth daily before breakfast. cyanocobalamin, vitamin B-12, (VITAMIN B-12 ORAL) Take 500 Units by mouth one time a week. tiZANidine HCl (ZANAFLEX) 4 mg capsule Take 4 mg by mouth once daily as needed. blood sugar diagnostic (ONETOUCH VERIO TEST STRIPS) test strip Use to test glucose once daily as directed. DX: E11.42, non insulin dependent. docusate sodium (COLACE) 100 mg capsule Take 100 mg by mouth as needed. lancets (ONE TOUCH DELICA) 33 gauge Use to test glucose once daily as directed. DX: E11.42, non insulin dependent. Blood-Glucose Meter (ONETOUCH VERIO METER) Use to test glucose once daily as directed. DX: E11.42, non insulin dependent. multivit-min/folic/vit K/lycop (ONE-A-DAY MEN'S MULTIVITAMIN ORAL) Take 1 tablet by mouth once daily. No current facility-administered medications for this visit. Allergies: Celebrex [Celecoxib] This note was partially generated using [employer] voice recognition system, and there may be some incorrect words, spellings, and punctuation that were not noted in checking the note before saving. Carla Montanez PA-C * Lisy Valdez Ma - 04/29/2022 1:32 PM EST AMB ROOMING INTAKE FLOWSHEET DATA Patient here today 1 week 3 days post op left CTR. Patient denies any pain. Arrives with surgical dressing in place. documented in this encounterM[facility]23 Miscellaneous Notes* Telephone Encounter - Zuleyma Morton RN - 04/22/2022 9:31 AM EST Left message for patient to see if he got his RX picked up * Telephone Encounter - Carla Montanez PA-C - 04/22/2022 9:26 AM EST I sent [place] to [facility] the day of his surgery. Dr. Franz sent the prescription on Friday. Can we check to make sure that the patient did in fact received pain medication? * Telephone Encounter - Kellie BALDWIN - 04/19/2022 3:26 PM EST Patient is calling in because there was no medication sent over to his pharmacy following his surgery today. Please advise Thanks documented in this encounterMarietta [facility]02-01-2023 Instructions* Patient Instructions* Gt Shaver APRN.ROB - 04/17/2022 10:36 AM EST PATIENT PREOPERATIVE INSTRUCTIONS Chico Franz MD MD has scheduled you for your procedure at this surgery center: [facility]: [phone] -- [address] [address]. Please read below carefully for your personalized instructions. Dietary Restrictions: - No solid food after midnight. - You may have 12 ounces of clear liquids (water, clear juices such as apple juice or gatorade, carbonated beverages, clear tea, black coffee, jello) until 2 hours before scheduled arrival at facility. - Do not drink any alcohol after midnight the night before your surgery. Medications: Unless instructed differently below, stay on all of your medications until your surgery. Approved medications to take the morning of surgery with a sip of water: atorvastatin (lipitor), Citalopram (celexa), levothyroxine (synthoid), omeprazole (prilosec), and Topamax. Do not take oral diabetic medication day of surgery. Blood Thinning Medications: - Stop NSAIDS (Ibuprofen, Advil, Aleve, Motrin, Celebrex, Mobic, etc.) 7 days before surgery, as directed by your surgeon. - Stop Vitamin E, ALL multi-vitamins, herbals and dietary supplements 7 days before surgery. - You may take Tylenol (Acetaminophen) or any of your pain medications that do not contain aspirin or NSAIDS as needed. Important Reminders: - Candy, mints, and tobacco products are NOT permitted the morning of surgery. - Hearing aids, dentures and glasses may be worn the morning of surgery. - NO jewelry, body piercings, makeup, hairpins or contacts are to be worn the day of surgery. If you develop symptoms such as a fever, cold, or flu, or have other changes to your health within TWO DAYS of scheduled surgery or the morning of surgery, please contact the surgery center above. Personal Belongings: -Please have photo ID and insurance cards. -If you do not have a copy of advance directives on file with us, please bring a copy with you on the day of surgery. - Leave ALL valuables and money at home or with family members. For Outpatient Procedures: - YOU MUST HAVE A RESPONSIBLE INTEGRATION DIRECTOR TAKE YOU HOME. A PURCHASE PRICE ANALYST OR FACILITIES MECHANICAL DESIGN ENGINEER CANNOT BE MADE A RESPONSIBLE INTEGRATION DIRECTOR. - We recommend that a responsible person stays with you overnight to take care of you. - You cannot stay in a hotel alone after outpatient surgery. You will not be permitted to have yoursurgery, if you do not have someone to take care of you. Arrival Time for Surgery: - The Surgery Center or hospital where you are having surgery will call the afternoon before surgery (or Friday for Friday surgery) with a scheduled arrival time. - If you have not heard by 4 pm, please contact the surgery center above. Please be aware that emergency situations arise, which may delay or change your surgical time. If this happens, we will notify you as soon as possible and regret any inconvenience. If you already have an Advance Directive, please fax a copy to [phone] or email to for it to be added to your chart. If you do not have an Advance Directive, you can find the appropriate form and more information at [email or web address]. We recommend that youcomplete the Advance Directive form found on the website and bring it with you the day of your surgery. It can be witnessed and scanned into your chart that day. Gt Shaver APRN.CNP documented in this encounterMarietta [facility]02-01-2023 History and physical note * Gt Shaver APRN.CNP - 04/17/2022 9:50 AM EST HISTORY AND PHYSICAL EXAMINATION SERVICE DATE: 04/17/2022 SERVICE TIME: 9:50 AM PRIMARY CARE PHYSICIAN: Lia Eisenberg CNP This is a virtual visit using alternative video platform. It required patient- provider interaction for the medical decision making as documented below. REASON FOR VISIT: Bradley Keys is a 61 year old male who is scheduled for Procedure(s): DECOMPRESSION NERVE MEDIAN CARPAL TUNNEL (Left) at the request of Dr. Chico Franz for consultation. My final recommendation will be communicated back to the requesting physician by way of shared medical record or letter. Subjective The patient has the following: ACTIVE PROBLEM LIST Obstructive Sleep Apnea Controlled Type 2 Diabetes Mellitus With Diabetic Polyneuropathy, Without Long- Term Current Use of Insulin (Hcc) Essential Hypertension Mixed Hyperlipidemia Acquired Hypothyroidism Vitamin D Deficiency History of Gastric Bypass Coronary Artery Disease Involving [place] Coronary Artery of [place] Heart Without Angina Pectoris Gastroesophageal Reflux Disease Without Esophagitis Subdural Hemorrhage (Hcc) Occipital Bone Fracture (Hcc) Fall Scalp Laceration, Initial Encounter Dizziness Class 2 Severe Obesity With Serious Comorbidity and Body Mass Index (Bmi) of 37.0 to 37.9 in Adult (Hcc) Hx of Sinus Bradycardia Migraine Dvt of Upper Extremity (Deep Vein Thrombosis) (Hcc) Anxiety and Depression Carpal Tunnel Syndrome COVID-19 Immunization Status COVID-19 VACCINE (Series Information) Completed 02/21/2022 Imm Admin: COVID-19 booster vaccine, age 12+ yr, bivalent ([facility]) 06/02/2020 Imm Admin: COVID-19 vaccine ([employer]) CHIEF COMPLAINT: Pre-op evaluation HPI: 61 year old male here for pre-op evaluation. Patient complains of left wrist pain for years. Treated with tylenol. Symptoms include intermittent pain, currently rated 6/10, and described as aching. +tingling. Symptoms do not wake him up at night. Recommended for above surgery. REVIEW OF SYSTEMS: General: No weight loss, malaise or fevers. Neurological: H/o subdural hemorrhage Vertigo- chronic unchanged, fell 2 weeks ago. +hitting head. He was evaluated for this. Positive for: headaches and impaired sensorium. Negative for: multiple sclerosis, Parkinson's disease, seizures and strokes. Respiratory: Positive for: obstructive sleep apnea. Negative for: asthma, COPD, current cough, dyspnea, orthopnea and tobacco use. Cardiovascular: Positive for: arrhythmia, CAD, DVT/PE, hyperlipidemia and hypertension Negative for: angina, atrial fibrillation, chest pain, CHF and murmur/valvular heart disease. GI: H/o gastric bypass 01/2018 Positive for: GERD Negative for: abdominal pain, dysphagia, liver disease, nausea and vomiting. : No history of dysuria, frequency or incontinence, stones or chronic kidney disease. No difficulty urinating, nocturia > 1 time per night or hematuria. Endocrine: Positive for: diabetes mellitus and hypothyroidism. Hematology: No history of bleeding or clotting disorder. Patient is not taking anti-coagulation or platelet medications. No history of hematological symptoms or problems. Oncology: No history of CA metastasis, chemo within 30 days, or radiotherapy within 90 days. No history of oncological symptoms or problems. Psych: Positive for: anxiety and depression. Musculoskeletal: Negative for joint pain or swelling, back pain or muscle pain. Skin: Negative for lesions, rash and itching. 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 no brain surgery , but needed rehab to learn to walk and talk again Coronary artery disease Diabetes (HCC) states no longer since gastric bypass with weight loss Hyperlipidemia Hypertension Hypothyroidism Obese Sleep apnea uses bypap Vitamin D deficiency PAST SURGICAL HISTORY Procedure Laterality Date CHOLECYSTECTOMY HX 2018 GASTRIC BYPASS HX 2018 HEMORRHOIDECTOMY INTERNAL RUBBER BAND LIGATIONS Hemorrhoidectomy MANJ W/ANES SHOULDER JOINT W/FIXATION APPARATUS Right 11/07/2021 Right shoulder manipulation under anesthesia with injection given right shoulder PAST SURGICAL HISTORY OF lymph node biopsy PAST SURGICAL HISTORY OF jonathan cyst on head PAST SURGICAL HISTORY OF 2018 hiatal hernia repair PAST SURGICAL HISTORY OF Bilateral 05/2021 Excess breast skin removal post gastric bypass - and abdominal skin removal - REVISE MEDIAN N/CARPAL TUNNEL SURG Right 11/07/2021 Right carpal tunnel release and Right shoulder manipulation under anesthesia REVISE MEDIAN N/CARPAL TUNNEL SURG Right 11/07/2021 Right carpal tunnel release STENTS (SPECIFY) cardiac x 1 TONSILLECTOMY PRIMARY/SECONDARY <AGE 12 Tonsillectomy FAMILY HISTORY Problem Relation Age of Onset Cancer Father lung Diabetes Mother Social History Tobacco Use Smoking status: Never Smokeless tobacco: Never Vaping Use Vaping Use: Never used Substance Use Topics Alcohol use: No Drug use: No Prior to Admission medications as of 04/17/22 1015 Medication Sig Last Dose Taking OZEMPIC 0.25 mg or 0.5 mg(2 mg/1.5 mL) pen INJECT 0.25 MG UNDER THE SKIN EVERY WEEK Taking Yes aspirin 81 mg chewable tablet Take 81 mg by mouth once daily. Taking Yes tiZANidine HCl (ZANAFLEX) 4 mg capsule Take 4 mg by mouth once daily as needed. Taking Yes metFORMIN ER (GLUCOPHAGE XR) 500 mg 24 hr tablet Take 500 mg by mouth once daily. Taking Yes topiramate (TOPAMAX) 50 mg tablet Take 50 mg by mouth twice daily. Taking Yes atorvastatin (LIPITOR) 40 mg tablet Take 40 mg by mouth once daily. Taking Yes omeprazole (PRILOSEC) 20 mg capsule Take 20 mg by mouth once daily. Taking Yes citalopram (CELEXA) 20 mg tablet Take 30 mg by mouth once daily. Taking Yes levothyroxine (SYNTHROID) 100 mcg tablet Take 100 mcg by mouth daily before breakfast. Taking Yes NURTEC ODT 75 mg disintegrating tablet TAKE 1 TABLET BY MOUTH DAILY NEEDED for onset OF migrainse, no more than 1 (ONE) dose in 24 hours DIRECTED FOR 30 DAYS blood sugar diagnostic (WebtalkUCH VERIO TEST STRIPS) test strip Use to test glucose once daily as directed. DX: E11.42, non insulin dependent. OYSTER SHELL CALCIUM-VITAMIN D 500 mg(1,250mg) -200 unit per tablet Take 1 tablet by mouth once daily. docusate sodium (COLACE) 100 mg capsule Take 100 mg by mouth as needed. lancets (ONE TOUCH DELICA) 33 gauge Use to test glucose once daily as directed. DX: E11.42, non insulin dependent. Blood-Glucose Meter (ONETOUCH VERIO METER) Use to test glucose once daily as directed. DX: E11.42, non insulin dependent. Zinc 50 mg tab Take 50 mg by mouth once daily. vitamin B complex (B COMPLEX 1 ORAL) Take by mouth twice daily. multivit with minerals/lutein (CEROVITE SENIOR ORAL) Take by mouth. melatonin 3 mg tablet Take 2 tablets by mouth daily at bedtime. Cholecalciferol, Vitamin D3, 2,000 unit cap Take 2 capsules by mouth once daily. cyanocobalamin, vitamin B-12, (VITAMIN B-12 ORAL) Take 500 Units by mouth one time a week. multivit-min/folic/vit K/lycop (ONE-A-DAY MEN'S MULTIVITAMIN ORAL) Take 1 tablet by mouth once daily. No medication comments found. ALLERGIES Allergen Reactions Celebrex [Celecoxib] blisters from head to toe Objective PHYSICAL EXAM: (if completed, exam performed via video enabled technology) General: alert and oriented and obese. Skin: normal color, no rash or lesions. HEENT: pupils equal round. Cardiovascular: Patient able to palpate radial pulse. Denies any skipped beats or pauses. . Respiratory: Equal chest rise. No audible wheezes. . Abdomen: Unable to assess. Extremities: Neurological: normal cognition and motor skills. PAIN ASSESSMENT: VITALS: Pulse 61[via home pulse ox[ Ht 5' 8[patient reported[ (1.73m) Wt 231 lb (104.8kg) SpO2 98[via home pulse ox]% BMI 35.13 kg/(m^2). Diagnostic tests reviewed for today's visit: Lab Value Units Date High Low HB No results within date range. HCT No results within date range. WBC No results within date range. PLT No results within date range. NA No results within date range. K No results within date range. GLUC No results within date range. BUN No results within date range. CREAT No results within date range. PTSEC No results within date range. INR No results within date range. APTT No results within date range. ALT No results within date range. AST No results within date range. TBILI No results within date range. TSH No results within date range. Lab Value Units Date High Low HCGQT No results within date range. UHCG No results within date range. HCG, BODY* No results within date range. Lab Value Units Date High Low ABORHD No results within date range. ABSCREEN No results within date range. Hemoglobin A1C (%) Date Value 03/25/2019 5.3 11/29/2011 10.2 HBA1C, [place] (%) Date Value 08/28/2011 10.3 10/02/2010 8.1 10/31/2009 11.9 08/01/2009 10.3 12/30/2008 9.6 Hemoglobin A1C (POCT) (%) Date Value 09/07/2020 5.3 08/26/2019 5.1 10/01/2018 5.2 06/01/2018 6.5 Recent Results (from the past 8760 hour(s)) ECG COMPLETE Collection Time: 10/31/21 10:10 AM Result Value Ventricular Rate 42 Atrial Rate 42 P-R Interval 176 QRS Duration 122 QT Interval 522 QTC Calculation (Bazett) 435 Calculated P [place] 42 Calculated R [place] 72 Calculated T [place] 39 Impression MARKED SINUS BRADYCARDIA NONSPECIFIC INTRAVENTRICULAR CONDUCTION DELAY ABNORMAL ECG Confirmed by MADELINE RUIZ DO ([id number]) on 11/08/2021 5:24:26 PM No results found for this or any previous visit (from the past 55727 hour(s)). Assessment Migraine Assessment: Topamax daily- took PRN rx yesterday. Overall symptoms are well controlled. Subdural hemorrhage (HCC) Assessment: Associated with migraines, weakness in legs. Denies new or worsening symptoms. Essential hypertension Assessment: On rx, denies SOB or CP Last 3 Encounter BP Readings: Date: BP: 04/06/2022 122/80 11/07/2021 149/65 10/31/2021 110/64 Anxiety and depression Assessment: Stable on rx. Denies thoughts of self harm or harming others. Mixed hyperlipidemia Assessment: on rx Obstructive sleep apnea Assessment: Using BIPAP nightly Gastroesophageal reflux disease without esophagitis Assessment: Stable on rx. Acquired hypothyroidism Assessment: on rx Controlled type 2 diabetes mellitus with diabetic polyneuropathy, without long- term current use of insulin (HCC) Assessment: On rx, Last A1C on 04/08/22 was 6%. Hx of sinus bradycardia Assessment: Chronic issue. Follows with last OV 09/26/21 scanned into chart. HR today 61, denies any SOB, CP, palpitations, dizziness, or syncope. Coronary artery disease involving false pass coronary artery of false pass heart without angina pectoris Assessment: H/o PCI x1 in 2008. Follows with last OV 09/26/21, records scanned into epic. Patient on aspirin. Denies SOB or CP. DVT of upper extremity (deep vein thrombosis) (HCC) Assessment: H/o provoked by surgery, was previously on AC but was stopped as follow up US showed resolution. Etienne Activity Status Index: METS: Walk a block or two on level ground (2.75 METs) DASI Score: 2.75 (Impacted by leg weakness not SOB) Patient denies any chest pain or undue shortness of breath with the above physical activity. Clinical Frailty Scale: 4. Apparently vulnerable STOP-Bang Score: BMI less than or equal to 35 kg/m^2 Patient 50 years old or younger Non-male patient STOP-Bang Score: 0 (MARKY-BIPAP) [id number] Score: Age: <65 Sex: Female CHF history: No Hypertension history: Yes Stroke/TIA/thromboembolism history: No Vascular disease history: Yes Diabetes history: Yes [id number] Score: 4 ARISCAT Score: Emergency procedure: No ARISCAT Score: ASA Class: 3 ANESTHESIA FINDINGS: Intubation History: No history of difficult intubation. No abnormal airway history Significant Anesthesia Considerations: none Airway History: No history of difficult airway No abnormal airway history I - PHYSICAL EVALUATION AIRWAY Patient intubated: No. Tracheostomy tube not present Mallampati: IV. TM distance: >3 FB. Neck ROM: limited flexion and extension. Mouth opening: adequate. Short neck: yes. Thick neck: yes [place] present: no DENTAL Dentures, upper: complete. Additional comments: crowns. II - ANESTHESIA PLAN ASA Score: 3 Anesthetic Plan: MAC Beta Freedom Monitoring Plan Post Procedure Analgesic Plan Prepared for Surgery: optimally prepared for surgery, pending [see comment]. DOS glucose Recent labs in care everywhere from 03/2022 CONSULTS: Patient does not require consults for optimization at this time Planned Anesthetic: MAC The Following Tests/Procedures Have Been Initiated: No orders of the defined types were placed in this encounter. Instructions Given to Patient: Instructions located in the after visit summary. Patient given verbal and written preop instructions and voices comprehension and compliance. SIGNATURE: Gt Shaver APRN.CNP PATIENT NAME: Bradley Keys DATE: April 17, 2022 TIME: 9:50 AM PAGER/CONTACT #: documented in this encounterMari[facility]02-01-2023 Miscellaneous Notes* Telephone Encounter - Lisy Valdez Ma - 04/17/2022 9:08 AM EST Surgery has been scheduled as requested. * Telephone Encounter - Teresa Neri Ma - 04/15/2022 2:47 PM EST Patient scheduled for Left CTR on 04/19/22. Surgical request completed. Post op appointments scheduled and mailed to patient. documented in this encounterMarietta [facility]01-30-2023 History of Present illness Narrative* Chico Franz MD - 04/15/2022 1:27 PM EST Patient presents with: Right Wrist - Post Op: 5 month post op CTR Right Shoulder - Follow Up, Post Op: Manipulation and injection AMB ROOMING INTAKE FLOWSHEET DATA Saw Dr Zuleta on 04/05/22. PT [facility], for Right wrist and shoulder did not help. Surgery scheduled on 06/07/22 on right shoulder , and 3 month later on left shoulder. Surgeon Dr Zuleta. Lost of strength in bilateral hands. Fell on 04/05/22 outside at [facility] house. Landed on right arm and side. [facility] ER xray done Chico Franz MD Department of Orthopaedics Orthopaedics [address] [address] Dept: [phone] Dept April 15, 2022 CHIEF COMPLAINT: Post Op of the Right Wrist (5 month post op CTR) and Follow Up and Post Op of the Right Shoulder (Manipulation and injection) HPI Having trouble with the left hand primarily and is interested in getting it taken care of prior to his shoulder surgery. ASSESSMENT: G56.02 Carpal tunnel syndrome of left wrist (primary encounter diagnosis) PLAN: We reviewed the risks, benefits, alternatives and potential complications with surgery or not. Mr. Bradley Keys was advised as to contrast therapies and/or to take analgesics/anti-inflammatories as needed and all contraindications were reviewed. OBJECTIVE: Mr. Bradley Keys is a pleasant 61 year old in no apparent distress. Gen:There were no vitals taken for this visit. nl development, obese, no deformities ENT: Normocephalic, normal hearing, moist mucosa CV: Pulses:Radial= 2+ and symmetric, capillary refill < 2 secs, no peripheral edema/varicosities Skin: no rash, bruising or lesions. Good turgor. Psych: cooperative and appropriate, alert and oriented x 3, good mood and affect. Musculoskeletal: Positive tinel's, MNCT. Diminished sensation in the median nerve distribution. Imaging: Study Interpretation Electrodiagnostic examination of the right upper extremity with comparison study of the left demonstrates findings most consistent with: 1. Bilateral median neuropathy at the wrist (carpal tunnel syndrome) on the left moderate to severein degree electrically, on the right moderate in degree electrically. 2. Right ulnar neuropathy, not localizable on the current study. Needle EMG examination was limited by poor patient activation, which can be seen with lesions affecting the central nervous system or with poor patient participation in testing due to poor understanding or pain. Within the limits of testing secondary to poor activation, there is no significant evidence of cervical radiculopathy in right upper extremity Supporting Subjective Information Below: Past Surgical History: PAST SURGICAL HISTORY Procedure Laterality Date CHOLECYSTECTOMY HX 2018 GASTRIC BYPASS HX 2018 HEMORRHOIDECTOMY INTERNAL RUBBER BAND LIGATIONS Hemorrhoidectomy MANJ W/ANES SHOULDER JOINT W/FIXATION APPARATUS Right 11/07/2021 Right shoulder manipulation under anesthesia with injection given right shoulder PAST SURGICAL HISTORY OF lymph node biopsy PAST SURGICAL HISTORY OF jonathan cyst on head PAST SURGICAL HISTORY OF 2018 hiatal hernia repair PAST SURGICAL HISTORY OF Bilateral 05/2021 Excess breast skin removal post gastric bypass - and abdominal skin removal - REVISE MEDIAN N/CARPAL TUNNEL SURG Right 11/07/2021 Right carpal tunnel release and Right shoulder manipulation under anesthesia REVISE MEDIAN N/CARPAL TUNNEL SURG Right 11/07/2021 Right carpal tunnel release REVISE MEDIAN N/CARPAL TUNNEL SURG Left 04/19/2022 Left Carpal tunnel release STENTS (SPECIFY) cardiac x 1 TONSILLECTOMY PRIMARY/SECONDARY <AGE 12 Tonsillectomy Medications: Current Outpatient Medications Medication Sig NURTEC ODT 75 mg disintegrating tablet TAKE 1 TABLET BY MOUTH DAILY NEEDED for onset OF migrainse, no more than 1 (ONE) dose in 24 hours DIRECTED FOR 30 DAYS OZEMPIC 0.25 mg or 0.5 mg(2 mg/1.5 mL) pen INJECT 0.25 MG UNDER THE SKIN EVERY WEEK aspirin 81 mg chewable tablet Take 81 mg by mouth once daily. tiZANidine HCl (ZANAFLEX) 4 mg capsule Take 4 mg by mouth once daily as needed. metFORMIN ER (GLUCOPHAGE XR) 500 mg 24 hr tablet Take 500 mg by mouth once daily. blood sugar diagnostic (WhisperTOUCH VERIO TEST STRIPS) test strip Use to test glucose once daily as directed. DX: E11.42, non insulin dependent. OYSTER SHELL CALCIUM-VITAMIN D 500 mg(1,250mg) -200 unit per tablet Take 1 tablet by mouth once daily. docusate sodium (COLACE) 100 mg capsule Take 100 mg by mouth as needed. lancets (ONE TOUCH DELICA) 33 gauge Use to test glucose once daily as directed. DX: E11.42, non insulin dependent. Blood-Glucose Meter (ONETOUCH VERIO METER) Use to test glucose once daily as directed. DX: E11.42, non insulin dependent. Zinc 50 mg tab Take 50 mg by mouth once daily. vitamin B complex (B COMPLEX 1 ORAL) Take by mouth twice daily. multivit with minerals/lutein (CEROVITE SENIOR ORAL) Take by mouth. topiramate (TOPAMAX) 50 mg tablet Take 50 mg by mouth twice daily. atorvastatin (LIPITOR) 40 mg tablet Take 40 mg by mouth once daily. melatonin 3 mg tablet Take 2 tablets by mouth daily at bedtime. Cholecalciferol, Vitamin D3, 2,000 unit cap Take 2 capsules by mouth once daily. omeprazole (PRILOSEC) 20 mg capsule Take 20 mg by mouth once daily. citalopram (CELEXA) 20 mg tablet Take 30 mg by mouth once daily. levothyroxine (SYNTHROID) 100 mcg tablet Take 100 mcg by mouth daily before breakfast. cyanocobalamin, vitamin B-12, (VITAMIN B-12 ORAL) Take 500 Units by mouth one time a week. multivit-min/folic/vit K/lycop (ONE-A-DAY MEN'S MULTIVITAMIN ORAL) Take 1 tablet by mouth once daily. No current facility-administered medications for this visit. Allergies: Celebrex [Celecoxib] ROS: General (negative for fatigue, malaise, weight loss/gain) HEENT (negative for headache, earache, recent vision changes, sinus pain, sore throat) Respiratory (no recent shortness of breath, hemoptysis) CV (negative for chest tightness, palpitations) Musculoskeletal (see HPI) Psych (no depression, anxiety) Chico Franz MD documented in this encounter[facility]01-27-[facility]23 Miscellaneous Notes* Telephone Encounter - Lakisha Dill Sedc - 04/12/2022 1:50 PM EST Please sign post-op physical therapy order. Thank you. Lakisha Dill Sedc documented in this encounterMari[facility]01-21-2023 History of Present illness Narrative* Татьяна Burns PA-C - 04/06/2022 12:02 PM EST Subjective HPI HPI Bradley Keys is a 61 year old male who presents today for CC of R sided rib pain status post fall yesterday. C/o tenderness in area, as well as pleuritic CP. Does note a hx of a blood clot. He is concerned about pain control as he can't take NSAIDs (d/t hx of bariatric surgery) but tylenol doesn't seem to be working. BP 122/80 Pulse 64 Temp 36.1 C (97 F) (Tympanic) Resp 18 Wt 105.9 kg (233 lb 6.4 oz) UiO806% BMI 36.56 kg/m ALLERGIES Allergen Reactions Celebrex [Celecoxib] blisters from head to toe ACTIVE PROBLEM LIST Obstructive Sleep Apnea Controlled Type 2 Diabetes Mellitus With Diabetic Polyneuropathy, Without Long- Term Current Use of Insulin (Hcc) Essential Hypertension Mixed Hyperlipidemia Acquired Hypothyroidism Vitamin D Deficiency History of Gastric Bypass Coronary Artery Disease Involving [place] Coronary Artery of [place] Heart Without Angina Pectoris Gastroesophageal Reflux Disease Without Esophagitis Subdural Hemorrhage (Hcc) Occipital Bone Fracture (Hcc) Fall Scalp Laceration, Initial Encounter Dizziness Class 2 Severe Obesity With Serious Comorbidity and Body Mass Index (Bmi) of 37.0 to 37.9 in Adult (Hcc) Hx of Sinus Bradycardia Migraine Dvt of Upper Extremity (Deep Vein Thrombosis) (Hcc) Anxiety and Depression Carpal Tunnel Syndrome Family History Problem Relation Age of Onset Cancer Father lung Diabetes Mother Social History Tobacco Use Smoking status: Never Smokeless tobacco: Never Vaping Use Vaping Use: Never used Substance Use Topics Alcohol use: No Drug use: No ROS Objective Physical Exam ASSESSMENT/PLAN: 1. Rib pain on right side - ICD9: 786.50, ICD10: R07.81 (primary diagnosis) Discussed options at length but d/t wait for XR and pt wishing for more optimal pain control, he chooses to be evaluated at the ED instead. Vitals stable, safe for to take him over via private transport. - XR RIBS/CHEST 3V AP RIB/OBLS/CXR RIGHT 2. Status post fall - ICD9: V15.88, ICD10: Z91.81 See above - XR RIBS/CHEST 3V AP RIB/OBLS/CXR RIGHT The patient indicates understanding of these issues and agrees with the plan. Татьяна Burns PA-C documented in this encounterMarietta [facility]01-20-2023 History of Present illness Narrative* Qiana Kraft CT - 04/05/2022 12:30 PM EST Radiology Service Progress Note PATIENT NAME: Bradley Keys DATE OF SERVICE: April 05, 2022 TIME: 1:33 PM PATIENT IDENTITY VERIFICATION COMPLETED USING TWO (2) IDENTIFIERS: Name and Date of confirmedby patient verbally. FALL SCREENING: Has the patient had 2 falls in the last year or 1 fall with injury or currently using an Ambulatory Assistive Device (Walker, Cane, Wheelchair, Crutches, etc.)? Yes, Patient High Riskfor Falls What interventions were put in place to prevent falls during this visit? Offered Assistance with Transfers/Clothing and Increased Observations by Caregivers PATIENT GENDER DATA: Male PATIENT RELEVANT IMPLANT DATA REVIEWED: Not Applicable RADIOLOGY DEPARTMENT: General X-ray: Exam(s) Completed: Upper Extremity X- Ray(s): Shoulder, AP / TRUE AP / AXILLARY bilateral PERIPHERAL IV DATA: Not applicable SIGNED BY: ADIEL Prabhakar April 05, 2022 1:33 PM documented in this encounterMarietta [facility]01-05-2023 History of Present illness Narrative* Delmy Avila MA - 03/21/2022 1:40 PM EST [facility] ROOMING NOTE POST WEIGHT LOSS SURGERY WEIGHT LOSS MANAGEMENT Patient: Bradley Keys Date of : 1960 Service Date: 03/21/2022 This patient is WITH SPOUSE for the evaluation today. Reason patient is here today: FOLLOW UP. Date of Weight Loss Surgery: 01/26/18 Procedure Performed: Laparoscopic Jolanta-en-Y Gastric Bypass Initial Weight: @FLOWLAST([id number])@ Today's weight has increased from the last visit Pain: Patient rates pain on scale 0-10 as: 0 Falls Risk Assessment Patient does take medications which affect BP or mental status Patient does not have newly prescribed or changed dosage of medications within past 30 days which affect BP or mental status Patient has not fallen in the past 2 months Patient does not demonstrate unsteady gait Patient uses the following ambulatory assistive devices: Patient states the presence of the following traits which increases risk of fall: Patient is low risk for falls. Patient is not on home O2 Post-op Weight Metrics: %EBWL: % EBWL: 61% Weight Change Since Last Visit: Weight Change: .2 lbs Weight Change from Highest Pre-op Weight: Total Weight Change: -127.8 lbs Completed by: Delmy Avila MA * Piyush Rice MD - 03/21/2022 1:40 PM EST [facility] POST-OP WEIGHT LOSS MANAGEMENT PROGRESS NOTE FOLLOW UP HPI, PHYSICAL EXAMINATION & PLAN HPI: Patient here today for follow up for weight loss management following surgical weight loss Weight trend since last visit: no This patient's excess weight is causing the following co-morbid conditions at this time: HTN Plan Physical Examination: BP 134/77 Pulse 61 Resp 18 Ht 5' 8.5 (1.74 m) Comment: BCC Wt 231 lb 9.6 oz (105 kg) BMI34.70 kg/m General: This patient is Alert General: This patient is awake, alert, and oriented, and is in no apparent distress. Extremities: No cyanosis, clubbing or edema/ No calf tenderness/No restrictions of movement, is ambulatory without assistance. Neurological: Intact x 4 extremities, no focal deficits notes. Skin: No rashes or lesions noted. Social History: This patient is accompanied by spouse for the evaluation today. He does not smoke, and does not drink alcohol. Current Diet This patient s current diet is:high in simple carbohydrates His diet contains adequate amounts of protein, adequate amounts of healthy fats, adequate amounts of green, leafy vegetables, and adequate amounts of fruits. His comfort foods include:salty foods Current Activity This patient currently does not exercise. Current Eating Behaviors This patients demonstrates the following behaviors as they relate to his eating:eats at night He eats approximately 3-4 times per day. His last meal/snack was at 9 am/pm. Progress Made Towards Goals: 3 month weight goal: 15 6 month weight goal: 30 12 month weight goal: 45 Plan: MDM- pt's medical conditions place them at moderate risk of complications, morbidity and mortality. HTN: stable. continued medical management, DE and plan for metabolic weight loss and surgery. [x] Protein goal of 1g protein per 1 kg of ideal body weight: 90 grams [] Patient advised to maintain a food/exercise/behavior diary until next physician visit. Pt to bring the completed diary to next visit 30 minute clinial Other: Physician Diet Recommendations given to patient See Follow up Section of today's encounter for next visit and additional scheduling orders documented in this [facility]12-28-2022 Miscellaneous Notes* Telephone Encounter - Paula Leong RN - 03/13/2022 9:01 AM EST Patient notified of Dr. Franz's message below. He verbalized understanding. Transferred to [facility] to schedule appointment with . * Telephone Encounter - Chico Franz MD - 03/11/2022 9:17 AM EST I would have him reschedule with to just have a look at his shoulders. * Telephone Encounter - Paula Leong RN - 03/08/2022 2:08 PM EST Patient calls with update. States he's finished with physical therapy for his shoulders and has nothad much improvement if any. Patient asking what next step is? He has a follow up scheduled on 04/15/22. documented in this encounterM[facility]11-10-2022 Discharge summary Author Andreina Mckenna [facility] January 24, 2022 10:58am Note Date/Time January 24, 2022 10:58am [facility] Physical Therapy [facility] [address] [place] [address] / REHABILITATION SERVICES DISCHARGE SUMMARY MR#: [id number] Acct: [id number] Name: BRADLEY KEYS Rep #: [id number] 02 : 1960 61 From: Andreina Mckenna PT, Cert. MDT Referring Dr.: Dr. Chico Franz MD Status: REG R Insurance: [facility] S[employer]URANCE It has been my pleasure to treat BRADLEY KEYS referred by Dr. Chico Franz MD, with the diagnosis of R ISHIAL BURSITIS for a total of 9 visit(s). Discharge Date: Please see the following information for a summary of their discharge status. Subjective: PATIENT REPROTS HIS WALKING IS BETTER. LESS PAIN WITH WALKING. REPORTS COMPLIANCE WITH HOME STRETCHING. right PSIS Pain Intensity (Out of 10): 0 % Improvement: 75 Objective/Function: PATIENT WAS SEEN TODAY FOR RE-ASSESSMENT OF PROGRESS TOWARD THE SET PT GOALS AND THE NEED FOR FURTHER PHYSICAL THERAPY VS READINESS FOR DISCHARGE. UPON EXAM TODAY THERE ARE NO SIGNIFICANT CHANGES SINCE INITIAL EVAL EXCEPT PATIENTS LIMP HAS DECREASED WITH WALKING, HIS CADANCE HAS IMPROVED AND HEREPORTS DECREASED PAIN WITH WALKING. HE IS INDEP WITH HOME STRETCHING AND APPROPRIATE FOR DISCHARGE. PATIENT AGREEABLE. PATIENT PLANS TO START PT NEXT WEEK FOR HIS SHLD. Goal 1:: DECREASE C/O RIGHT BUTTOCK AREA PAIN Goal Progress: Goal Met Goal 2:: IMPROVE STANDING, WALKING AND ADL FUNCTION Goal Progress: Goal Met Goal 3:: PATIENT WILL BE INDEP WITH A HEP FOR CONTINUED IMPROVEMENT ONCE FORMAL PHYSICAL THERAPY CONCLUDES. Goal Progress: Goal Met Plan: D/C. PATIENT AGREEABLE. If there are questions or concerns regarding this patient's physical therapy, please feel free to call me at [phone]. Thank you for the referral of thispatient. Sincerely, Andreina Mckenna, PT, Cert MDT Balance/Gait/Functional tests - Balance/Special Test Scores Lower Extremity Functional Score: 42 <Electronically signed by Andreina Mckenna PT, Cert. MDT> 01/24/22 1051 CC: Dr. Chico Franz MD; [facility] [place] Signed [facility] Work Phone: 1(242) 641-601111-03-2022 History of Present illness Narrative* Chico Franz MD - 01/17/2022 10:57 AM EDT Chico Franz MD Department of Orthopaedics Orthopaedics [address] [address] Dept: [phone] Dept January 17, 2022 CHIEF COMPLAINT: Established Patient and Post Op of the Right Shoulder and Established Patient and Post Op of the Right Hand (10 wks R CTR, R shoulder manipulation & injection) HPI Patient is here today for post op right CTR, right shoulder manipulation with injection given. Patient states he is still having some weakness and discomfort in the right shoulder/arm/hand. Patient has been doing PT/OT and states that he thinks that is helping somewhat. Patient c/o still not having much ROM in the right shoulder. ASSESSMENT: G56.01 Carpal tunnel syndrome of right wrist (primary encounter diagnosis) M75.01 Adhesive capsulitis of right shoulder R29.898 Weakness of both hands M75.02 Adhesive capsulitis of left shoulder PLAN: He has been entertaining occupational therapy for the right hand as well as therapy for the hip, though he has never had any therapy after surgery for the shoulder as there was some miscommunication unfortunately after his COVID and it was just never scheduled even though the order was in the system. I would like him to focus further on therapy for the shoulder. May be around the new year we can see him back and see how both shoulders are going and if we need to address the left hand that is, if he has had enough improvement on the right side. There still may be an opportunity to take care ofhis ulnar nerve on the right side as well. Mr. Bradley Keys was advised as to contrast therapies and/or to take analgesics/anti-inflammatories as needed and all contraindications were reviewed. OBJECTIVE: Mr. Bradley Keys is a pleasant 61 year old in no apparent distress. Gen:There were no vitals taken for this visit. nl development, obese, no deformities ENT: Normocephalic, normal hearing, moist mucosa CV: Pulses:Radial= 2+ and symmetric, capillary refill < 2 secs, no peripheral edema/varicosities Skin: no rash, bruising or lesions. Good turgor. Psych: cooperative and appropriate, alert and oriented x 3, good mood and affect. Musculoskeletal: Stable exams. Supporting Subjective Information Below: Past Surgical History: PAST SURGICAL HISTORY Procedure Laterality Date CHOLECYSTECTOMY HX 2018 GASTRIC BYPASS HX 2018 HEMORRHOIDECTOMY INTERNAL RUBBER BAND LIGATIONS Hemorrhoidectomy MANJ W/ANES SHOULDER JOINT W/FIXATION APPARATUS Right 11/07/2021 Right shoulder manipulation under anesthesia with injection given right shoulder PAST SURGICAL HISTORY OF lymph node biopsy PAST SURGICAL HISTORY OF jonathan cyst on head PAST SURGICAL HISTORY OF 2018 hiatal hernia repair PAST SURGICAL HISTORY OF Bilateral 05/2021 Excess breast skin removal post gastric bypass 3- and abdominal skin removal 1- REVISE MEDIAN N/CARPAL TUNNEL SURG Right 11/07/2021 Right carpal tunnel release and Right shoulder manipulation under anesthesia REVISE MEDIAN N/CARPAL TUNNEL SURG Right 11/07/2021 Right carpal tunnel release STENTS (SPECIFY) cardiac x 1 TONSILLECTOMY PRIMARY/SECONDARY <AGE 12 Tonsillectomy Medications: Current Outpatient Medications Medication Sig aspirin 81 mg chewable tablet Take 81 mg by mouth once daily. tiZANidine HCl (ZANAFLEX) 4 mg capsule Take 4 mg by mouth once daily as needed. metFORMIN ER (GLUCOPHAGE XR) 500 mg 24 hr tablet Take 500 mg by mouth once daily. OYSTER SHELL CALCIUM-VITAMIN D 500 mg(1,250mg) -200 unit per tablet Take 1 tablet by mouth once daily. docusate sodium (COLACE) 100 mg capsule Take 100 mg by mouth as needed. Zinc 50 mg tab Take 50 mg by mouth once daily. vitamin B complex (B COMPLEX 1 ORAL) Take by mouth twice daily. multivit with minerals/lutein (CEROVITE SENIOR ORAL) Take by mouth. topiramate (TOPAMAX) 50 mg tablet Take 50 mg by mouth twice daily. atorvastatin (LIPITOR) 40 mg tablet Take 40 mg by mouth once daily. melatonin 3 mg tablet Take 2 tablets by mouth daily at bedtime. Cholecalciferol, Vitamin D3, 2,000 unit cap Take 2 capsules by mouth once daily. omeprazole (PRILOSEC) 20 mg capsule Take 20 mg by mouth once daily. citalopram (CELEXA) 20 mg tablet Take 20 mg by mouth once daily. levothyroxine (SYNTHROID) 100 mcg tablet Take 100 mcg by mouth daily before breakfast. cyanocobalamin, vitamin B-12, (VITAMIN B-12 ORAL) Take 500 Units by mouth one time a week. multivit-min/folic/vit K/lycop (ONE-A-DAY MEN'S MULTIVITAMIN ORAL) Take 1 tablet by mouth once daily. blood sugar diagnostic (ONETOUCH VERIO TEST STRIPS) test strip Use to test glucose once daily as directed. DX: E11.42, non insulin dependent. lancets (ONE TOUCH DELSeerGate) 33 gauge Use to test glucose once daily as directed. DX: E11.42, non insulin dependent. Blood-Glucose Meter (ONETOUCH VERIO METER) Use to test glucose once daily as directed. DX: E11.42, non insulin dependent. No current facility-administered medications for this visit. Allergies: Celebrex [Celecoxib] ROS: General (negative for fatigue, malaise, weight loss/gain) HEENT (negative for headache, earache, recent vision changes, sinus pain, sore throat) Respiratory (no recent shortness of breath, hemoptysis) CV (negative for chest tightness, palpitations) Musculoskeletal (see HPI) Psych (no depression, anxiety) Chico Franz MD documented in this encounterM[facility]10-11-2022 Miscellaneous Notes* Telephone Encounter - Alice Pike MA - 12/25/2021 2:17 PM EDT Faxed signed OT order with facesheet to fax [phone] to OT at [facility]. Received fax confirmation sheet that fax was successful. Alice Pike MA December 25, 2021 2:18 PM * Telephone Encounter - Darcie Thomas - 12/25/2021 11:32 AM EDT Spoke with patient. He is wanting to do OT at [facility]. Faxxed order to them at [phone]. Spoke with someone at the front desk attendant who said they will call him to set up eval. * Telephone Encounter - Alice Pike MA - 12/25/2021 8:16 AM EDT Patient notified and aware that OT order has been placed for his right hand/wrist. Please contact patient to schedule. Thanks. Alice Pike MA December 25, 2021 8:17 AM * Telephone Encounter - Carla Montanez PA-C - 12/25/2021 7:41 AM EDT Order placed for OT for his right hand/wrist. * Telephone Encounter - Abena Vega LPN - 12/24/2021 3:47 PM EDT Patient called. Verified name and date of . Patient had appointment with Dr. Franz on 2021 and was ordered Physical Therapy. Patient is asking if he can have Occupational Therapy for his arm/hand? Please review and advise. Abena Vega LPN documented in this encounterMari[facility]10-03-2022 History of Present illness Narrative* Chico Franz MD - 2021 2:03 PM EDT Chico Franz MD Department of Orthopaedics Orthopaedics [address] [address] Dept: [phone] Dept 2021 CHIEF COMPLAINT: Established Patient and Pain of the Right Hip (Xray today at [facility] 12/17/21) HPI Is a couple of months status post carpal tunnel and doing better but some stiffness in feeling all of his strength back. However, he is here today because of pain on the posterior portion of the right hip. Patient is here for right hip pain that has been ongoing for some time now. Patient states that he has been having sharp pain in his right hip that worsens with use, but patient states the pain staysin his hip and does not radiate anywhere. Xray taken today at [facility]. ASSESSMENT: M70.71 Ischial bursitis of right side (primary encounter diagnosis) PLAN: I provided him some stretching exercises. Anti-inflammatory will likely help as well. We may consider formal therapy or even an ultrasound-guided injection if symptoms persist. Mr. Bradley Keys was advised as to contrast therapies and/or to take analgesics/anti-inflammatories as needed and all contraindications were reviewed. OBJECTIVE: Mr. Bradley Keys is a pleasant 61 year old in no apparent distress. Gen:There were no vitals taken for this visit. nl development, obese, no deformities ENT: Normocephalic, normal hearing, moist mucosa CV: Pulses:DP/PT= 2+ and symmetric, capillary refill < 2 secs, no peripheral edema/varicosities Skin: no rash, bruising or lesions. Good turgor. Psych: cooperative and appropriate, alert and oriented x 3, good mood and affect. Musculoskeletal: He has tenderness directly on the ischium. Some tightness in the hamstrings. Negative straight leg raise. Imaging: IMPRESSION: 1. No acute bony process. 2. Stable mild changes as detailed in report. Dentistry Teacher: MIRNA Transcribe Date/Time: 2021 2:09P Dictated by : ALMA SWANSON MD This examination was interpreted and the report reviewed and electronically signed by: ALMA SWANSON MD on 2021 2:15PM EST Results-Findings * * *Final Report* * * DATE OF EXAM: 2021 1:53PM [id number] - XR HIP 3V PELV+ AP/LAT RT / PROCEDURE REASON: Pain in right hip * * * * Physician Interpretation * * * * EXAMINATION: XR HIP 3V PELV+ AP/LAT RT HISTORY: Pain in right hip. Negative trauma. TECHNIQUE: XR HIP 3V PELV+ AP/LAT RT Laterality: RIGHT Number of different views (projections): 3 M: XB_1 COMPARISON: Comparison is made to prior hip study dated 03 Aug 2018 RESULT: Supine radiograph of the pelvis as well as AP and crosstable lateral views of the right hip demonstrate the visualized bony pelvic ring intact. SI joints are patent. The hips are bilaterally symmetric with mild degenerative change manifest predominantly subtle superior joint space narrowing and eburnation of the acetabular rims, right slightly greater than left. Overall findings are stable. There is no acute bony process. The soft tissues are unremarkable. Supporting Subjective Information Below: Past Surgical History: PAST SURGICAL HISTORY Procedure Laterality Date CHOLECYSTECTOMY HX 2018 GASTRIC BYPASS HX 2018 HEMORRHOIDECTOMY INTERNAL RUBBER BAND LIGATIONS Hemorrhoidectomy MANJ W/ANES SHOULDER JOINT W/FIXATION APPARATUS Right 11/07/2021 Right shoulder manipulation under anesthesia with injection given right shoulder PAST SURGICAL HISTORY OF lymph node biopsy PAST SURGICAL HISTORY OF jonathan cyst on head PAST SURGICAL HISTORY OF 2018 hiatal hernia repair PAST SURGICAL HISTORY OF Bilateral 05/2021 Excess breast skin removal post gastric bypass - and abdominal skin removal 04-07 REVISE MEDIAN N/CARPAL TUNNEL SURG Right 11/07/2021 Right carpal tunnel release and Right shoulder manipulation under anesthesia REVISE MEDIAN N/CARPAL TUNNEL SURG Right 11/07/2021 Right carpal tunnel release STENTS (SPECIFY) cardiac x 1 TONSILLECTOMY PRIMARY/SECONDARY <AGE 12 Tonsillectomy Medications: Current Outpatient Medications Medication Sig aspirin 81 mg chewable tablet Take 81 mg by mouth once daily. tiZANidine HCl (ZANAFLEX) 4 mg capsule Take 4 mg by mouth once daily as needed. metFORMIN ER (GLUCOPHAGE XR) 500 mg 24 hr tablet Take 500 mg by mouth once daily. OYSTER SHELL CALCIUM-VITAMIN D 500 mg(1,250mg) -200 unit per tablet Take 1 tablet by mouth once daily. docusate sodium (COLACE) 100 mg capsule Take 100 mg by mouth as needed. Zinc 50 mg tab Take 50 mg by mouth once daily. vitamin B complex (B COMPLEX 1 ORAL) Take by mouth twice daily. multivit with minerals/lutein (CEROVITE SENIOR ORAL) Take by mouth. topiramate (TOPAMAX) 50 mg tablet Take 50 mg by mouth twice daily. atorvastatin (LIPITOR) 40 mg tablet Take 40 mg by mouth once daily. melatonin 3 mg tablet Take 2 tablets by mouth daily at bedtime. Cholecalciferol, Vitamin D3, 2,000 unit cap Take 2 capsules by mouth once daily. omeprazole (PRILOSEC) 20 mg capsule Take 20 mg by mouth once daily. citalopram (CELEXA) 20 mg tablet Take 20 mg by mouth once daily. levothyroxine (SYNTHROID) 100 mcg tablet Take 100 mcg by mouth daily before breakfast. cyanocobalamin, vitamin B-12, (VITAMIN B-12 ORAL) Take 500 Units by mouth one time a week. multivit-min/folic/vit K/lycop (ONE-A-DAY MEN'S MULTIVITAMIN ORAL) Take 1 tablet by mouth once daily. blood sugar diagnostic (ONETOUCH VERIO TEST STRIPS) test strip Use to test glucose once daily as directed. DX: E11.42, non insulin dependent. lancets (ONE TOUCH DELICA) 33 gauge Use to test glucose once daily as directed. DX: E11.42, non insulin dependent. Blood-Glucose Meter (ONETOUCH VERIO METER) Use to test glucose once daily as directed. DX: E11.42, non insulin dependent. No current facility-administered medications for this visit. Allergies: Celebrex [Celecoxib] ROS: General (negative for fatigue, malaise, weight loss/gain) HEENT (negative for headache, earache, recent vision changes, sinus pain, sore throat) Respiratory (no recent shortness of breath, hemoptysis) CV (negative for chest tightness, palpitations) Musculoskeletal (see HPI) Psych (no depression, anxiety) Chico Franz MD documented [facility] Miscellaneous Notes* Telephone Encounter - Lisy Valdez Ma - 10/19/2021 8:05 AM EDT Surgery has been scheduled as requested. * Telephone Encounter - Teresa Neri Ma - 10/18/2021 3:24 PM EDT Patient scheduled for Right CTR, Right shoulder manipulation under anesthesia and right shoulder subacromial injection on 11/07/21. Surgical request completed. Post op appointments scheduled and mailed to patient. documented in this encounterM[facility]08[facility]22 History of Present illness Narrative* Chico Franz MD - 10/18/2021 11:19 AM EDT Chico Franz MD Department of Orthopaedics Orthopaedics [address] [place] [id number] Dept: [phone] Dept October 18, 2021 CHIEF COMPLAINT: Established Patient and EMG Results of the Left Hand and Established Patient and EMG Results of the Right Hand HPI Patient here today to discuss EMG testing results. ASSESSMENT: M25.511, G89.29 Chronic right shoulder pain (primary encounter diagnosis) M75.01 Adhesive capsulitis of right shoulder G56.01 Carpal tunnel syndrome of right wrist PLAN: Clinical picture still remains a bit confusing. We had a lengthy discussion in the office today. Piper has moderate to severe carpal tunnel based on his nerve testing. However, some of the intrinsic weakness would potentially have to be more from the elbow or even cervical in nature. I supposeat this point, my recommendation is to go with a carpal tunnel release and at the same setting willmanipulate the shoulder and provide a another cortisone injection for the right shoulder. There is still a possibility of cervical involvement and I think if we do not make significant improvements with this first surgical intervention, I would consider looking into the cervical spine further. Mr. Bradley Keys was advised as to contrast therapies and/or to take analgesics/anti-inflammatories as needed and all contraindications were reviewed. OBJECTIVE: Mr. Bradley Keys is a pleasant 60 year old in no apparent distress. Gen:There were no vitals taken for this visit. nl development, obese, no deformities ENT: Normocephalic, normal hearing, moist mucosa CV: Pulses:Radial= 2+ and symmetric, capillary refill < 2 secs, no peripheral edema/varicosities Skin: no rash, bruising or lesions. Good turgor. Psych: cooperative and appropriate, alert and oriented x 3, good mood and affect. Musculoskeletal: Consistent exam from prior visits both of the right shoulder and in the hand. Imaging: Electrodiagnostic examination of the right upper extremity with comparison study of the left demonstrates findings most consistent with: 1. Bilateral median neuropathy at the wrist (carpal tunnel syndrome) on the left moderate to severein degree electrically, on the right moderate in degree electrically. 2. Right ulnar neuropathy, not localizable on the current study. Needle EMG examination was limited by poor patient activation, which can be seen with lesions affecting the central nervous system or with poor patient participation in testing due to poor understanding or pain. Within the limits of testing secondary to poor activation, there is no significant evidence of cervical radiculopathy in right upper extremity. Supporting Subjective Information Below: Past Surgical History: PAST SURGICAL HISTORY Procedure Laterality Date CHOLECYSTECTOMY HX 2018 GASTRIC BYPASS HX 2018 HEMORRHOIDECTOMY INTERNAL RUBBER BAND LIGATIONS Hemorrhoidectomy PAST SURGICAL HISTORY OF lymph node biopsy PAST SURGICAL HISTORY OF jonathan cyst on head PAST SURGICAL HISTORY OF 2018 hiatal hernia repair PAST SURGICAL HISTORY OF Bilateral 05/2021 Excess breast skin removal post gastric bypass 3-22 and abdominal skin removal 1-22 STENTS (SPECIFY) cardiac x 1 TONSILLECTOMY PRIMARY/SECONDARY <AGE 12 Tonsillectomy Medications: Current Outpatient Medications Medication Sig tiZANidine HCl (ZANAFLEX) 4 mg capsule Take 4 mg by mouth once daily as needed. metFORMIN ER (GLUCOPHAGE XR) 500 mg 24 hr tablet Take 500 mg by mouth once daily. ELIQUIS 5 mg tab(s) Take 5 mg by mouth twice daily. OYSTER SHELL CALCIUM-VITAMIN D 500 mg(1,250mg) -200 unit per tablet Take 1 tablet by mouth once daily. vitamin B complex (B COMPLEX 1 ORAL) Take by mouth twice daily. topiramate (TOPAMAX) 50 mg tablet Take 50 mg by mouth twice daily. atorvastatin (LIPITOR) 40 mg tablet Take 40 mg by mouth once daily. melatonin 3 mg tablet Take 2 tablets by mouth daily at bedtime. Cholecalciferol, Vitamin D3, 2,000 unit cap Take 2 capsules by mouth once daily. omeprazole (PRILOSEC) 20 mg capsule Take 20 mg by mouth once daily. citalopram (CELEXA) 20 mg tablet Take 20 mg by mouth once daily. levothyroxine (SYNTHROID) 100 mcg tablet Take 100 mcg by mouth daily before breakfast. multivit-min/folic/vit K/lycop (ONE-A-DAY MEN'S MULTIVITAMIN ORAL) Take 1 tablet by mouth once daily. melatonin 3 mg capsules Take 3 mg by mouth daily at bedtime. blood sugar diagnostic (ONETOUCH VERIO TEST STRIPS) test strip Use to test glucose once daily as directed. DX: E11.42, non insulin dependent. docusate sodium (COLACE) 100 mg capsule Take 100 mg by mouth as needed. lancets (ONE TOUCH DELICA) 33 gauge Use to test glucose once daily as directed. DX: E11.42, non insulin dependent. Blood-Glucose Meter (ONETOUCH VERIO METER) Use to test glucose once daily as directed. DX: E11.42, non insulin dependent. Zinc 50 mg tab Take 50 mg by mouth once daily. multivit with minerals/lutein (CEROVITE SENIOR ORAL) Take by mouth. cyanocobalamin, vitamin B-12, (VITAMIN B-12 ORAL) Take 500 Units by mouth once each week. (Patient not taking: Reported on 07/30/2021 ) No current facility-administered medications for this visit. Allergies: Celebrex [Celecoxib] ROS: General (negative for fatigue, malaise, weight loss/gain) HEENT (negative for headache, earache, recent vision changes, sinus pain, sore throat) Respiratory (no recent shortness of breath, hemoptysis) CV (negative for chest tightness, palpitations) Musculoskeletal (see HPI) Psych (no depression, anxiety) Chico Franz, MD documented in this [facility] History of Present illness Narrative* Grant Smith MD - 10/15/2021 2:08 PM EDT UNIVERSAL PROTOCOL / SAFETY CHECKLIST Procedure to be Performed: EMG Sign In: A Moment of CARE was completed. Personnel directly involved with the procedure wore the appropriate PPE (Personal Protective Equipment). Patient/Surrogate Stated/Verified: PATIENT VERIFIED(optional for EMERGENT procedures): Patient name, Date of , Relevant allergies and The intended procedure Time Out Communication: Intended patient and procedure match the source documents. Correct side/site marked and visible. Sign Out: SIGN OUT (optional for EMERGENT procedures): Post-procedure follow-up management communicated and Plan of Care Visit completed when applicable. Tonja Hernández EMG Grant Smith MD documented in this encounterM[facility]07-[facility]22 History of Present illness Narrative* Chico Franz MD - 10/04/2021 9:01 AM EDT Chico Franz MD Department of Orthopaedics Orthopaedics [address] [place] [address] Dept: [phone] Dept October 04, 2021 CHIEF COMPLAINT: Follow Up of the Right Shoulder, Follow Up of the Left Shoulder, and 6 weeks post visit impingement syndrome (right shoulder and incomplete rotator cuff tear left shoulder) HPI Pt. presents with . He has not had much relief from past 2 injections. The right arm is most severe. He states 2 clots in left arm have resolved, but still has superficial clot. AMB ROOMING INTAKE FLOWSHEET DATA Risk Screening Do you have concerns about personal safety or safety in the home?: No Pain Pain Level: (right shoulder 9 and left shoulder 7) Pain Location: (bilateral shoulders) Description: Aching, Sharp, Throbbing Duration Units: Unknown (years) Frequency: Continuous Intervention/Comfort measure: Medication, Therapeutic techniques-CPRP Comments: muscle relaxer and tylenol but not much relief ASSESSMENT: R29.898 Weakness of both hands (primary encounter diagnosis) M25.511, G89.29 Chronic right shoulder pain M25.512, G89.29 Chronic left shoulder pain M75.01 Adhesive capsulitis of right shoulder M75.02 Adhesive capsulitis of left shoulder M77.8 Tendinitis of right shoulder M75.112 Nontraumatic incomplete tear of left rotator cuff PLAN: Again, he has quite a bit going on, though some of his findings are consistent with some neuropathy. Had like to get a nerve conduction exam to further evaluate. We will deal with the shoulders once we get more information. Mr. Bradley Keys was advised as to contrast therapies and/or to take analgesics/anti-inflammatories as needed and all contraindications were reviewed. OBJECTIVE: Mr. Bradley Keys is a pleasant 60 year old in no apparent distress. Gen:There were no vitals taken for this visit. nl development, obese, no deformities ENT: Normocephalic, normal hearing, moist mucosa CV: Pulses:Radial= 2+ and symmetric, capillary refill < 2 secs, no peripheral edema/varicosities Skin: no rash, bruising or lesions. Good turgor. Psych: cooperative and appropriate, alert and oriented x 3, good mood and affect. Musculoskeletal: Positive Tinel's at both elbows. He has intrinsic weakness and a positive Froment's in both hands. Positive Tinel's at the wrists and median nerve compression test. Imaging: Deferred today Supporting Subjective Information Below: Past Surgical History: PAST SURGICAL HISTORY Procedure Laterality Date CHOLECYSTECTOMY HX 2018 GASTRIC BYPASS HX 2018 HEMORRHOIDECTOMY INTERNAL RUBBER BAND LIGATIONS Hemorrhoidectomy PAST SURGICAL HISTORY OF lymph node biopsy PAST SURGICAL HISTORY OF jonathan cyst on head PAST SURGICAL HISTORY OF 2018 hiatal hernia repair PAST SURGICAL HISTORY OF Bilateral 05/2021 Excess breast skin removal post gastric bypass 3-22 and abdominal skin removal 1-22 STENTS (SPECIFY) cardiac x 1 TONSILLECTOMY PRIMARY/SECONDARY <AGE 12 Tonsillectomy Medications: Current Outpatient Medications Medication Sig metFORMIN ER (GLUCOPHAGE XR) 500 mg 24 hr tablet Take 500 mg by mouth once daily. melatonin 3 mg capsules Take 3 mg by mouth daily at bedtime. ELIQUIS 5 mg tab(s) Take 5 mg by mouth twice daily. blood sugar diagnostic (ONETOUCH VERIO TEST STRIPS) test strip Use to test glucose once daily as directed. DX: E11.42, non insulin dependent. OYSTER SHELL CALCIUM-VITAMIN D 500 mg(1,250mg) -200 unit per tablet Take 1 tablet by mouth once daily. docusate sodium (COLACE) 100 mg capsule Take 100 mg by mouth as needed. lancets (ONE TOUCH DELICA) 33 gauge Use to test glucose once daily as directed. DX: E11.42, non insulin dependent. Blood-Glucose Meter (ONETOUCH VERIO METER) Use to test glucose once daily as directed. DX: E11.42, non insulin dependent. Zinc 50 mg tab Take 50 mg by mouth once daily. vitamin B complex (B COMPLEX 1 ORAL) Take by mouth twice daily. multivit with minerals/lutein (CEROVITE SENIOR ORAL) Take by mouth. topiramate (TOPAMAX) 50 mg tablet Take 50 mg by mouth twice daily. atorvastatin (LIPITOR) 40 mg tablet Take 40 mg by mouth once daily. melatonin 3 mg tablet Take 2 tablets by mouth daily at bedtime. Cholecalciferol, Vitamin D3, 2,000 unit cap Take 2 capsules by mouth once daily. omeprazole (PRILOSEC) 20 mg capsule Take 20 mg by mouth once daily. citalopram (CELEXA) 20 mg tablet Take 20 mg by mouth once daily. levothyroxine (SYNTHROID) 100 mcg tablet Take 100 mcg by mouth daily before breakfast. cyanocobalamin, vitamin B-12, (VITAMIN B-12 ORAL) Take 500 Units by mouth once each week. (Patient not taking: Reported on 07/30/2021 ) multivit-min/folic/vit K/lycop (ONE-A-DAY MEN'S MULTIVITAMIN ORAL) Take 1 tablet by mouth once daily. No current facility-administered medications for this visit. Allergies: Celebrex [Celecoxib] ROS: General (negative for fatigue, malaise, weight loss/gain) HEENT (negative for headache, earache, recent vision changes, sinus pain, sore throat) Respiratory (no recent shortness of breath, hemoptysis) CV (negative for chest tightness, palpitations) Musculoskeletal (see HPI) Psych (no depression, anxiety) Chico Franz MD documented in [facility]06-[facility] History of Present illness Narrative* Chico Franz MD - 08/23/2021 2:15 PM EDT Associated Order(s): Large Joint Arthro/Inj: L subacromial bursa; Large Joint Arthro/Inj: R subacromial bursa Chico Franz MD Department of Orthopaedics Orthopaedics [address] [facility] [address] Dept: [phone] Dept August 23, 2021 CHIEF COMPLAINT: Follow Up of the Right Shoulder, Follow Up of the Left Shoulder, and MRI results bilateral shoulders HPI Pt. presents with . He is having continues pain bilaterally from shoulder joints down into upper arms. He has been doing nothing for pain as nothing helps. AMB ROOMING INTAKE FLOWSHEET DATA Pain Pain Level: (right shoulder 9 and left shoulder 8) Pain Location: (bilateral shoulders) Description: Aching, Sharp, Stabbing Duration Amount of Time: (ongoing) Frequency: Continuous Comments: has tried PT, ice, heat and meds without relief ASSESSMENT: M75.41 Impingement syndrome of right shoulder (primary encounter diagnosis) M75.112 Nontraumatic incomplete tear of left rotator cuff PLAN: No shoulder show evidence of some bursitis and low-grade partial-thickness rotator cuff fraying. Hewould like to try cortisone injections at this time and we will continue with his physical therapy to improve motion. Mr. Bradley Keys was advised as to contrast therapies and/or to take analgesics/anti-inflammatories as needed and all contraindications were reviewed. OBJECTIVE: Mr. Bradley Keys is a pleasant 60 year old in no apparent distress. Gen:There were no vitals taken for this visit. nl development, obese, no deformities ENT: Normocephalic, normal hearing, moist mucosa CV: Pulses:Radial= 2+ and symmetric, capillary refill < 2 secs, no peripheral edema/varicosities Skin: no rash, bruising or lesions. Good turgor. Psych: cooperative and appropriate, alert and oriented x 3, good mood and affect. Musculoskeletal: STable exam from prior visit. Large Joint Arthro/Inj: R subacromial bursa Informed Consent Consent Obtained: Verbal [place] Protocol A moment to CARE was completed. SIGN IN Sign in communication not applicable due to emergent procedure. Personnel directly involved with the procedure wore the appropriate PPE. Special Equipment: N/A Patient/Surrogate Stated/Verified: Patient name, Date of , Relevant allergies and Intended procedure TIME OUT Intended patient and procedure match the source document(s). Consent documented and matches the intended procedure. Relevant labs, photos, and/or imaging studies have been reviewed. Correct side/site marked and visible. Medications required for procedure verified. No fire risk assessment and interventions applicable. No implant(s) inserted. 08/23/2021 3:08 PM The procedure site was prepped in the usual sterile fashion. Site: R subacromial bursa Medications: 6 mg betamethasone acetate-betamethasone sodium phosphate 6 mg/mL Anesthetics: 4 mL lidocaine (PF) 10 mg/mL (1 %) Outcome: Tolerated well, no immediate complications Post-injection instructions were reviewed with the patient and the patient voiced understanding of these instructions. SIGN OUT No specimen collected. All instruments, equipment, possible retained foreign bodies accounted for. Post-procedure follow-up management communicated and Plan of Care Visit completed when applicable Large Joint Arthro/Inj: L subacromial bursa Informed Consent Consent Obtained: Verbal [place] Protocol A moment to CARE was completed. SIGN IN Sign in communication not applicable due to emergent procedure. Personnel directly involved with the procedure wore the appropriate PPE. Special Equipment: N/A Patient/Surrogate Stated/Verified: Patient name, Date of , Relevant allergies and Intended procedure TIME OUT Intended patient and procedure match the source document(s). Consent documented and matches the intended procedure. Relevant labs, photos, and/or imaging studies have been reviewed. Correct side/site marked and visible. Medications required for procedure verified. No fire risk assessment and interventions applicable. No implant(s) inserted. 08/23/2021 3:09 PM The procedure site was prepped in the usual sterile fashion. Site: L subacromial bursa Medications: 6 mg betamethasone acetate-betamethasone sodium phosphate 6 mg/mL Anesthetics: 4 mL lidocaine (PF) 10 mg/mL (1 %) Outcome: Tolerated well, no immediate complications Post-injection instructions were reviewed with the patient and the patient voiced understanding of these instructions. SIGN OUT No specimen collected. All instruments, equipment, possible retained foreign bodies accounted for. Post-procedure follow-up management communicated and Plan of Care Visit completed when applicable Imaging: IMPRESSION: Low-grade partial thickness articular surface tear LEFT posterior supraspinatus tendon. Background rotator cuff tendinosis. Dentistry Teacher: MIRNA Transcribe Date/Time: Aug 16 2021 10:31A Dictated by : TIO DRAKE MD This examination was interpreted and the report reviewed and electronically signed by: ANNELIESE HERRERA MD on Aug 16 2021 11:25AM EST Results-Findings * * *Final Report* * * DATE OF EXAM: Aug 16 2021 9:14AM [facility] 0239 - MRI SHOULDER WO IVCON LT / PROCEDURE REASON: multiple diagnoses * * * * Physician Interpretation * * * * EXAMINATION: MRI SHOULDER WO IVCON LT HISTORY: Chronic pain of both shoulders. Limited range of motion. TECHNIQUE: Routine non-contrast MRI of the shoulder. MQ: MRS_1A COMPARISON: Radiographs dated 06/13/2021. RESULT: Some sequences are motion degraded despite repeat attempts. TENDONS: Rotator cuff tendons: -Supraspinatus: Low grade partial thickness (less than 50%) articular surface tear involving the posterior third of the tendon measuring approximately 5 mm in AP dimension with background tendinosis -Infraspinatus: Intact tendon -Subscapularis: Intact tendon -Teres Minor: Intact tendon Biceps (Long head) Tendon: Intact , with normal course MUSCLES: Rotator cuff muscles: -Supraspinatus: Preserved bulk and no fatty changes. -Infraspinatus: Preserved bulk and no fatty changes. -Subscapularis: Preserved bulk and no fatty changes. -Teres Minor: Marked atrophy and marked fatty changes. Other muscles: Preserved signal and bulk in the deltoid. JOINTS: Glenohumeral Joint: -Labrum: Degeneration without discrete tear in the superior and posterior labrum -Cartilage: Minimal cartilage loss/fissuring -Joint Fluid: No effusion . No synovitis. Acromioclavicular Joint: Mild hypertrophic degenerative changes BONES AND MARROW: No evidence of fracture or suspicious bone marrow replacing process . Reactive subcortical cystic changes at the greater tuberosity. OTHER: Subdeltoid/Subacromial Bursa: Minimal bursal distention /thickening Other: No other significant findings. Localizer images: No additional findings. IMPRESSION: RIGHT rotator cuff tendinosis without tear. Dentistry Teacher: MIRNA Transcribe Date/Time: Aug 16 2021 10:42A Dictated by : TIO DRAKE MD This examination was interpreted and the report reviewed and electronically signed by: ANNELIESE HERRERA MD on Aug 16 2021 11:21AM EST Results-Findings * * *Final Report* * * DATE OF EXAM: Aug 16 2021 9:14AM [facility] [id number] - MRI SHOULDER WO IVCON RT / PROCEDURE REASON: multiple diagnoses * * * * Physician Interpretation * * * * EXAMINATION: MRI SHOULDER WO IVCON RT HISTORY: Chronic pain of both shoulders. Limited range of motion. TECHNIQUE: Routine non-contrast MRI of the shoulder. MQ: MRS_1A COMPARISON: Radiograph dated 06/13/2021. RESULT: Motion degraded sequences despite repeat attempts. TENDONS: Rotator cuff tendons: -Supraspinatus: Intact with marked tendinosis -Infraspinatus: Intact with moderate tendinosis -Subscapularis: Intact with mild tendinosis -Teres Minor: Intact tendon Biceps (Long head) Tendon: Intact , with normal course MUSCLES: Rotator cuff muscles: -Supraspinatus: Preserved bulk and no fatty changes. -Infraspinatus: Mild atrophy and mild fatty changes. -Subscapularis: No atrophy and mild fatty changes. -Teres Minor: Mild atrophy and mild fatty changes. Other muscles: Preserved signal and bulk in the deltoid. JOINTS: Glenohumeral Joint: -Labrum: Glenoid labrum appears to be intact. -Cartilage: Normal -Joint Fluid: No effusion . No synovitis. Acromioclavicular Joint: Mild hypertrophic degenerative changes BONES AND MARROW: No evidence of fracture or suspicious bone marrow replacing process . Reactive subcortical cystic changes at the greater tuberosity. OTHER: Subdeltoid/Subacromial Bursa: Minimal bursal distention /thickening Other: No other significant findings. Localizer images: No additional findings. Supporting Subjective Information Below: Past Surgical History: PAST SURGICAL HISTORY Procedure Laterality Date CHOLECYSTECTOMY HX 2018 GASTRIC BYPASS HX 2018 HEMORRHOIDECTOMY INTERNAL RUBBER BAND LIGATIONS Hemorrhoidectomy PAST SURGICAL HISTORY OF lymph node biopsy PAST SURGICAL HISTORY OF jonathan cyst on head PAST SURGICAL HISTORY OF 2018 hiatal hernia repair PAST SURGICAL HISTORY OF Bilateral 05/2021 Excess breast skin removal post gastric bypass 3-22 and abdominal skin removal 1-22 STENTS (SPECIFY) cardiac x 1 TONSILLECTOMY PRIMARY/SECONDARY <AGE 12 Tonsillectomy Medications: Current Outpatient Medications Medication Sig metFORMIN ER (GLUCOPHAGE XR) 500 mg 24 hr tablet Take 500 mg by mouth once daily. ELIQUIS 5 mg tab(s) Take 5 mg by mouth twice daily. blood sugar diagnostic (ONETOUCH VERIO TEST STRIPS) test strip Use to test glucose once daily as directed. DX: E11.42, non insulin dependent. OYSTER SHELL CALCIUM-VITAMIN D 500 mg(1,250mg) -200 unit per tablet Take 1 tablet by mouth once daily. docusate sodium (COLACE) 100 mg capsule Take 100 mg by mouth as needed. lancets (ONE TOUCH DELSeerGate) 33 gauge Use to test glucose once daily as directed. DX: E11.42, non insulin dependent. Blood-Glucose Meter (ONETOUCH VERIO METER) Use to test glucose once daily as directed. DX: E11.42, non insulin dependent. Zinc 50 mg tab Take 50 mg by mouth once daily. vitamin B complex (B COMPLEX 1 ORAL) Take by mouth twice daily. multivit with minerals/lutein (CEROVITE SENIOR ORAL) Take by mouth. topiramate (TOPAMAX) 50 mg tablet Take 50 mg by mouth twice daily. atorvastatin (LIPITOR) 40 mg tablet Take 40 mg by mouth once daily. melatonin 3 mg tablet Take 2 tablets by mouth daily at bedtime. Cholecalciferol, Vitamin D3, 2,000 unit cap Take 2 capsules by mouth once daily. omeprazole (PRILOSEC) 20 mg capsule Take 20 mg by mouth once daily. citalopram (CELEXA) 20 mg tablet Take 20 mg by mouth once daily. levothyroxine (SYNTHROID) 100 mcg tablet Take 100 mcg by mouth daily before breakfast. multivit-min/folic/vit K/lycop (ONE-A-DAY MEN'S MULTIVITAMIN ORAL) Take 1 tablet by mouth once daily. melatonin 3 mg capsules Take 3 mg by mouth daily at bedtime. cyanocobalamin, vitamin B-12, (VITAMIN B-12 ORAL) Take 500 Units by mouth once each week. (Patient not taking: Reported on 07/30/2021 ) No current facility-administered medications for this visit. Allergies: Celebrex [Celecoxib] ROS: General (negative for fatigue, malaise, weight loss/gain) HEENT (negative for headache, earache, recent vision changes, sinus pain, sore throat) Respiratory (no recent shortness of breath, hemoptysis) CV (negative for chest tightness, palpitations) Musculoskeletal (see HPI) Psych (no depression, anxiety) Chico Franz MD [facility] History of Present illness Narrative* RT Gerhard(R) - 08/16/2021 8:00 AM EDT Radiology Service Progress Note PATIENT NAME: Bradley Keys DATE OF SERVICE: August 16, 2021 TIME: 9:12 AM PATIENT IDENTITY VERIFICATION COMPLETED USING TWO (2) IDENTIFIERS: Name and Date of confirmedby patient verbally. FALL SCREENING: Has the patient had 2 falls in the last year or 1 fall with injury or currently using an Ambulatory Assistive Device (Walker, Cane, Wheelchair, Crutches, etc.)? No PATIENT GENDER DATA: Male PATIENT RELEVANT IMPLANT DATA REVIEWED: Yes RADIOLOGY DEPARTMENT: MR; Exam(s) Completed: Upper MSK: Shoulder, bilateral PERIPHERAL IV DATA: Not applicable SIGNED BY: RT Gerhard(Porter) August 16, 2021 9:12 AM documented in this encounter[facility]05[facility] History of Present illness Narrative* Chico Franz MD - 07/30/2021 10:06 AM EDT Chico Franz MD Department of Orthopaedics Orthopaedics [address] [place] [id number] Dept: [phone] Dept July 30, [address] Steen for an opinion regarding bilateral shoulder pain. My final recommendations will be communicated back to the requesting physician by way of shared Medical recordor letter to requesting physician via US mail. CHIEF COMPLAINT: New and Pain of the Right Shoulder, New and Pain of the Left Shoulder, and xrays at [facility] 06-13-2021 REF: Lakisha Eisenberg CNP/Jensen Valdez HPI Pt. 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 He has never had OR or injections and cannot take NSAIDS due to gastric bypass surgery. He is not currently working as he has had multiple health concerns and surgeries, but is not receiving disability. 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 He also has had excess skin removal recently 3- from breasts and abdomen. He can only take tylenol. He has had some PT month ago which gave him very little relief at [facility]. His right shoulder is worse and he is righthand dominant. AMB ROOMING INTAKE FLOWSHEET DATA Risk Screening Do you have concerns about personal safety or safety in the home?: No Pain Pain Location: (bilateral shoulders) Description: Aching, Sharp, Stabbing Duration Amount of Time: 1 Duration Units: Years Frequency: Continuous Intervention/Comfort measure: Medication, Therapeutic techniques-CPRP, Cold, Heat Comments: tylenol, no past injections ASSESSMENT: M75.01 Adhesive capsulitis of right shoulder (primary encounter diagnosis) M75.02 Adhesive capsulitis of left shoulder M25.511, G89.29, M25.512 Chronic pain of both shoulders PLAN: Patient has undergone significant physical therapy, is intolerant of NSAIDs secondary to his gastric bypass surgery. With his limited motion and functional limitations and pain, my recommendation is for MRIs of both shoulders. FOLLOW UP INSTRUCTIONS: Follow-up after imaging Mr. Bradley Keys was advised as to contrast therapies and/or to take analgesics/anti-inflammatories as needed and all contraindications were reviewed. OBJECTIVE: Mr. Bradley Keys is a pleasant 60 year old in no apparent distress. Gen:There were no vitals taken for this visit. nl development, obese, no deformities ENT: Normocephalic, normal hearing, moist mucosa CV: Pulses:Radial= 2+ and symmetric, capillary refill < 2 secs, no peripheral edema/varicosities Skin: no rash, bruising or lesions. Good turgor. Psych: cooperative and appropriate, alert and oriented x 3, good mood and affect. Musculoskeletal: Supple range of motion of the cervical spine without pain. Spurling signs are negative. No atrophy of the deltoid and mildly in the superior shoulder musculature, right greater than left. Bilateral shoulders are nontender to palpation over the SC joint, clavicle and AC joint. No tenderness to palpation over the posterior shoulder, positive tenderness palpation over each anterior lateral corner ofthe shoulder and greater tuberosity. Nonpainful at the bicipital groove and coracoid. Active range of motion is symmetrical, bilaterally to 130 degrees of forward elevation, 45 degrees external rotation, and internal rotation to the bar spine. Passive range of motion is limited, symmetrically, without pain, respectively. No laxity with anterior and posterior stress. Positive Neer and Pineda impingement signs, at each shoulder. 4/5 strength with supraspinatus, infraspinatus and subscapularis. Sensation is intact in the axillary, radial, median and ulnar nerve distribution IMAGIN views of bilateral shoulders from an outside facility show moderate glenohumeral arthritis with relatively maintained joint space however. The left shoulder shows the beginnings of some inferior glenoid spurring but again maintained joint space. Supporting Subjective Information Below: Past Medical History: PAST MEDICAL HISTORY Diagnosis Date Acute myocardial infarction of other specified sites, episode of care unspecified 2008 Myocardial Infarction Coronary artery disease Diabetes (HCC) Hyperlipidemia Hypertension Hypothyroidism Obese Sleep apnea Vitamin D deficiency Past Surgical History: PAST SURGICAL HISTORY Procedure Laterality Date CHOLECYSTECTOMY HX 2018 GASTRIC BYPASS HX 2018 HEMORRHOID;BAND LIGAT, SNGL/MUL Hemorrhoidectomy PAST SURGICAL HISTORY OF lymph node biopsy PAST SURGICAL HISTORY OF jonathan cyst on head REMOVAL OF TONSILS,<12 Y/O Tonsillectomy STENTS (SPECIFY) cardiac Family History: FAMILY HISTORY Problem Relation Age of Onset Cancer Father lung Diabetes Mother Social History: Social History Tobacco Use Smoking status: Never Smoker Smokeless tobacco: Never Used Substance Use Topics Alcohol use: No Drug use: No Medications: Current Outpatient Medications Medication Sig blood sugar diagnostic (ONETOUCH VERIO TEST STRIPS) test strip Use to test glucose once daily as directed. DX: E11.42, non insulin dependent. OYSTER SHELL CALCIUM-VITAMIN D 500 mg(1,250mg) -200 unit per tablet docusate sodium (COLACE) 100 mg capsule Take by mouth. lancets (ONE TOUCH DELICA) 33 gauge Use to test glucose once daily as directed. DX: E11.42, non insulin dependent. Blood-Glucose Meter (ONETOUCH VERIO METER) Use to test glucose once daily as directed. DX: E11.42, non insulin dependent. Zinc 50 mg tab Take by mouth. vitamin B complex (B COMPLEX 1 ORAL) Take by mouth twice daily. multivit with minerals/lutein (CEROVITE SENIOR ORAL) Take by mouth. topiramate (TOPAMAX) 50 mg tablet Take 50 mg by mouth twice daily. atorvastatin (LIPITOR) 40 mg tablet Take 40 mg by mouth once daily. melatonin 3 mg tablet Take 2 tablets by mouth daily at bedtime. Cholecalciferol, Vitamin D3, 2,000 unit cap Take 2 capsules by mouth once daily. omeprazole (PRILOSEC) 20 mg capsule Take 20 mg by mouth once daily. citalopram (CELEXA) 20 mg tablet Take 20 mg by mouth once daily. levothyroxine (SYNTHROID) 100 mcg tablet Take 100 mcg by mouth daily before breakfast. cyanocobalamin, vitamin B-12, (VITAMIN B-12 ORAL) Take 500 Units by mouth once each week. multivit-min/folic/vit K/lycop (ONE-A-DAY MEN'S MULTIVITAMIN ORAL) Take 1 tablet by mouth once daily. No current facility-administered medications for this visit. Allergies: Celebrex [Celecoxib] ROS: General (negative for fatigue, malaise, weight loss/gain) HEENT (negative for headache, earache, recent vision changes, sinus pain, sore throat) Respiratory (no recent shortness of breath, hemoptysis) CV (negative for chest tightness, palpitations) Musculoskeletal (see HPI) Psych (no depression, anxiety) REFERRING PHYSICIAN: Mr. Bradley Keys was referred to me for consultation by the following physician. This consultation note will be sent to the following physician by either mail or electronic medical record. Tio Steen DPM [address] [facility] [address] Keli Last CNP [address] [facility] [id number] Chico Franz MD documented in this encounterM[facility]04-12-2022 Miscellaneous Notes* Telephone Encounter - Gem Olson RN - 06/26/2021 3:07 PM EDT Notified patient of Mary Garcia CNP's message. Patient verbalized understanding and all questions were answered. He will contact his PCP. Encounter closed. * Telephone Encounter - Mary Garcia APRN.CNP - 06/26/2021 2:58 PM EDT Patient was referred back to PCP for DM care. Please advise him to obtain refill from them. Thank you * Telephone Encounter - Mandi Baldwin - 06/26/2021 2:03 PM EDT Patient previously advised to follow up with PCP. * Telephone Encounter - Lia Oviedo LPN - 06/26/2021 1:36 PM EDT Requester: Pharmacy Last Visit in Endocrinology: Provider name: Mary Garcia CNP , Date 09/07/2020 Next Scheduled Appt in Endo: Visit date not found Last Refill: 05/07/21 Number of Refills given: 1 Will need appt prior to any further refills Pending Prescriptions Disp Refills ONETOUCH VERIO TEST STRIPS 100 Strip 3 Sig: Use to test glucose once daily as directed. DX: E11.42, non insulin dependent. AYAAN: Yes Please review and advise. 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 Traumatic brain injury August 03, 2018 [facility] Work Phone: Evaluation note* Diagnosis Onset Date Resolution Status Diabetes type 2, controlled acute Left arm pain acute Left arm swelling acute Excessive body weight loss c hronic Gynecomastia, male chronic History of gastric bypass ch ronic Intertrigo chronic Diabetes type 2, controlled acute DVT of left axillary vein, acute acute Left arm pain acute Left arm swelling acute Other acute postprocedural pain acute Excessive body weight loss c hronic Gynecomastia, male chronic History of gastric bypass ch ronic Intertrigo chronic Allergy-induced asthma chron ic Excessive body weight loss c hronic Obstructive sleep apnea 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 Diabetes type 2, controlled acute DVT of left axillary vein, acute acute Left arm pain acute Left arm swelling acute Excessive body weight loss c hronic Gynecomastia, male chronic History of gastric bypass ch ronic Intertrigo chronic Diabetes type 2, controlled acute DVT of left axillary vein, acute acute Excessive body weight loss c hronic Gynecomastia, male chronic History of gastric bypass ch ronic Intertrigo chronic Weakness acute 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 Essential hypertension chron ic Hyperlipidemia chronic Stented coronary artery 2008 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 Diabetes type 2, controlled acute DVT of left axillary vein, acute acute History of bilateral mastectomy acute Left arm pain acute Left arm swelling acute Excessive body weight loss c hronic Gynecomastia, male chronic History of gastric bypass ch ronic Intertrigo chronic Diabetes type 2, controlled acute DVT of left axillary vein, acute acute History of bilateral mastectomy acute Left arm pain acute Left arm swelling acute Gynecomastia, male chronic Intertrigo chronic [facility] Work Phone: Evaluation note* Diagnosis Onset Date Resolution Status Diabetes type 2, controlled acute DVT of left axillary vein, acute acute Left arm pain acute Left arm swelling acute Other acute postprocedural pain acute Excessive body weight loss c hronic Gynecomastia, male chronic History of gastric bypass ch ronic Intertrigo chronic Allergy-induced asthma chron ic Excessive body weight loss c hronic Obstructive sleep apnea 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 Diabetes type 2, controlled acute DVT of left axillary vein, acute acute Left arm pain acute Left arm swelling acute Excessive body weight loss c hronic Gynecomastia, male chronic History of gastric bypass ch ronic Intertrigo chronic Diabetes type 2, controlled acute DVT of left axillary vein, acute acute Excessive body weight loss c hronic Gynecomastia, male chronic History of gastric bypass ch ronic Intertrigo chronic Weakness acute 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 Essential hypertension chron ic Hyperlipidemia chronic Stented coronary artery 2008 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 Diabetes type 2, controlled acute DVT of left axillary vein, acute acute History of bilateral mastectomy acute Left arm pain acute Left arm swelling acute Excessive body weight loss c hronic Gynecomastia, male chronic History of gastric bypass ch ronic Intertrigo chronic Diabetes type 2, controlled acute DVT of left axillary vein, acute acute History of bilateral mastectomy acute Left arm pain acute Left arm swelling acute Gynecomastia, male chronic Intertrigo chronic [facility] Work Phone: Evaluation note* Diagnosis Controlled type 2 diabetes mellitus with diabetic polyneuropathy, without long- term current use of insulin (HCC) [facility] Diagnosis Adhesive capsulitis of right shoulder- Primary Adhesive capsulitis of shoulder Adhesive capsulitis of left shoulder Adhesive capsulitis of shoulder Chronic pain of both shoulders Pain in joint, shoulder region [facility] Diagnosis Impingement syndrome of right shoulder- Primary Other affections of shoulder region, not elsewhere classified Nontraumatic incomplete tear of left rotator cuff Partial tear of rotator cuff [facility] Diagnosis Weakness of both hands- Primary Chronic right shoulder pain Pain in joint, shoulder region Chronic left shoulder pain Pain in joint, shoulder region Adhesive capsulitis of right shoulder Adhesive capsulitis of shoulder Adhesive capsulitis of left shoulder Adhesive capsulitis of shoulder Tendinitis of right shoulder Disorders of bursae and tendons in shoulder region, unspecified Nontraumatic incomplete tear of left rotator cuff Partial tear of rotator cuff [facility] Weakness of both hands [facility] Diagnosis Chronic right shoulder pain- Primary Pain in joint, shoulder region Adhesive capsulitis of right shoulder Adhesive capsulitis of shoulder Carpal tunnel syndrome of right wrist Carpal tunnel syndrome [facility] Diagnosis Right carpal tunnel syndrome- Primary Carpal tunnel syndrome Chronic right shoulder pain Pain in joint, shoulder region Adhesive capsulitis of right shoulder Adhesive capsulitis of shoulder Right carpal tunnel syndrome Carpal tunnel syndrome Chronic right shoulder pain Pain in joint, shoulder region Adhesive capsulitis of right shoulder Adhesive capsulitis of shoulder [facility] Diagnosis Onset Date Resolution Status DVT (deep venous thrombosis) acute 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 Essential hypertension chron ic Hyperlipidemia chronic Stented coronary artery 2008 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 [facility] Work Phone: Evaluation note* Diagnosis Pain in right hip- Primary Pain in joint, pelvic region and thigh [facility]* Diagnosis Carpal tunnel syndrome of right wrist- Primary Carpal tunnel syndrome [facility]* Diagnosis Ischial bursitis of right side- Primary documented [facility]* Diagnosis Carpal tunnel syndrome of right wrist- Primary Carpal tunnel syndrome Adhesive capsulitis of right shoulder Adhesive capsulitis of shoulder Weakness of both hands Adhesive capsulitis of left shoulder Adhesive capsulitis of shoulder [facility] [place] [facility]* Diagnosis Chronic right shoulder pain- Primary Pain in joint, shoulder region Chronic left shoulder pain Pain in joint, shoulder region [facility]* Diagnosis Rib pain on right side- Primary Chest pain, unspecified Status post fall Unspecified fall [facility]* Diagnosis Adhesive capsulitis of right shoulder- Primary Adhesive capsulitis of shoulder Chronic right shoulder pain Pain in joint, shoulder region Impingement syndrome of right shoulder Other affections of shoulder region, not elsewhere classified Adhesive capsulitis of right shoulder Adhesive capsulitis of shoulder Chronic right shoulder pain Pain in joint, shoulder region Impingement syndrome of right shoulder Other affections of shoulder region, not elsewhere classified documented [facility] this encounter [facility] [place] [facility]* Diagnosis Left carpal tunnel syndrome- Primary Carpal tunnel syndrome Left carpal tunnel syndrome Carpal tunnel syndrome Adhesive capsulitis of right shoulder Adhesive capsulitis of shoulder Chronic right shoulder pain Pain in joint, shoulder region Impingement syndrome of right shoulder Other affections of shoulder region, not elsewhere classified documented in this encounter [facility] [place] [facility]* Diagnosis Pre-op evaluation- Primary Preoperative examination, unspecified Intractable migraine with status migrainosus, unspecified migraine type Subdural hemorrhage (HCC) Subdural hemorrhage Essential hypertension Unspecified essential hypertension Anxiety and depression Dysthymic disorder Mixed hyperlipidemia Obstructive sleep apnea Obstructive sleep apnea (adult) (pediatric) Gastroesophageal reflux disease without esophagitis Esophageal reflux Acquired hypothyroidism Unspecified hypothyroidism Controlled type 2 diabetes mellitus with diabetic polyneuropathy, without long- term current use of insulin (HCC) Hx of sinus bradycardia Personal history of other diseases of circulatory system Coronary artery disease involving false pass coronary artery of false pass heart without angina pectoris Deep vein thrombosis (DVT) of upper extremity, unspecified chronicity, unspecified laterality, unspecified vein (HCC) Left carpal tunnel syndrome Carpal tunnel syndrome Adhesive capsulitis of right shoulder Adhesive capsulitis of shoulder Chronic right shoulder pain Pain in joint, shoulder region Impingement syndrome of right shoulder Other affections of shoulder region, not elsewhere classified documented [facility] this encounter [facility] [place] [facility]* Diagnosis Onset Date Resolution Status Allergy-induced asthma chron ic Excessive body weight loss c hronic Obstructive sleep apnea 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 DVT (deep venous thrombosis) acute 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 Essential hypertension chron ic Hyperlipidemia chronic Stented coronary artery 2008 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 [facility] Work Phone: Evaluation note* Diagnosis Left carpal tunnel syndrome- Primary Carpal tunnel syndrome Adhesive capsulitis of right shoulder Adhesive capsulitis of shoulder Chronic right shoulder pain Pain in joint, shoulder region Impingement syndrome of right shoulder Other affections of shoulder region, not elsewhere classified documented [facility] encounter [facility]* Diagnosis Shoulder joint stiffness, bilateral- Primary Left shoulder pain, unspecified chronicity Right shoulder pain, unspecified chronicity Adhesive capsulitis of right shoulder Adhesive capsulitis of shoulder Chronic right shoulder pain Pain in joint, shoulder region Impingement syndrome of right shoulder Other affections of shoulder region, not elsewhere classified documented [facility] this encounter [facility] [place] [facility]* Diagnosis Carpal tunnel syndrome of left wrist- Primary Carpal tunnel syndrome Adhesive capsulitis of right shoulder Adhesive capsulitis of shoulder Chronic right shoulder pain Pain in joint, shoulder region Impingement syndrome of right shoulder Other affections of shoulder region, not elsewhere classified [facility]* Diagnosis Controlled type 2 diabetes mellitus with diabetic polyneuropathy, without long- term current use of insulin (HCC)- Primary Subdural hemorrhage (HCC) Subdural hemorrhage Essential hypertension Unspecified essential hypertension Mixed hyperlipidemia Coronary artery disease involving false pass coronary artery of false pass heart without angina pectoris Obstructive sleep apnea Obstructive sleep apnea (adult) (pediatric) Acquired hypothyroidism Unspecified hypothyroidism Deep vein thrombosis (DVT) of upper extremity, unspecified chronicity, unspecified laterality, unspecified vein (HCC) Hx of sinus bradycardia Personal history of other diseases of circulatory system Preop examination [Z01.818 (ICD-10-CM)] Preoperative examination, unspecified Impingement syndrome of right shoulder [M75.41 (ICD-10-CM)] Other affections of shoulder region, not elsewhere classified Adhesive capsulitis of right shoulder [M75.01 (ICD-10-CM)] Adhesive capsulitis of shoulder Chronic right shoulder pain [M25.511, G89.29 (ICD-10-CM)] Pain in joint, shoulder region Adhesive capsulitis of right shoulder Adhesive capsulitis of shoulder Chronic right shoulder pain Pain in joint, shoulder region Impingement syndrome of right shoulder Other affections of shoulder region, not elsewhere classified [facility] [place] [facility]* Diagnosis Adhesive capsulitis of right shoulder- Primary Adhesive capsulitis of shoulder documented in this encounter [facility] note* Diagnosis S/P shoulder surgery- Primary Other postprocedural status Adhesive capsulitis of right shoulder Adhesive capsulitis of shoulder [facility] [place] [facility]* Diagnosis Status post shoulder surgery- Primary Other postprocedural status Adhesive capsulitis of right shoulder Adhesive capsulitis of shoulder documented in this encounter [facility] note* Diagnosis Intestinal malabsorption, unspecified type- Primary GERD without esophagitis Esophageal reflux BMI 33.0-33.9,adult Obesity (BMI 30-39.9) documented in this encounter [facility] note* Diagnosis Status post shoulder surgery- Primary Other postprocedural status documented in this encounter [facility] note* Diagnosis Status post shoulder surgery- Primary Other postprocedural status documented in this encounter [facility] note* Diagnosis Onset Date Resolution Status Bradycardia chronic Essential hypertension chron ic Hyperlipidemia chronic Stented coronary artery 2008 [facility] Work Phone: Evaluation note* Diagnosis Status post shoulder surgery- Primary Other postprocedural status documented in this encounter [facility] note* Diagnosis Adhesive capsulitis of right shoulder- Primary Adhesive capsulitis of shoulder documented in this encounter [facility] note* Diagnosis Adhesive capsulitis of right shoulder- Primary Adhesive capsulitis of shoulder Adhesive capsulitis of right shoulder Adhesive capsulitis of shoulder [facility] [place] [facility]* Diagnosis Pre-operative examination- Primary Preoperative examination, unspecified Obstructive sleep apnea Obstructive sleep apnea (adult) (pediatric) Essential hypertension Unspecified essential hypertension Coronary artery disease involving false pass coronary artery of false pass heart without angina pectoris Mixed hyperlipidemia Subdural hemorrhage (HCC) Subdural hemorrhage Intractable migraine with status migrainosus, unspecified migraine type Controlled type 2 diabetes mellitus with diabetic polyneuropathy, without long- term current use of insulin (HCC) Gastroesophageal reflux disease without esophagitis Esophageal reflux Acquired hypothyroidism Unspecified hypothyroidism Deep vein thrombosis (DVT) of upper extremity, unspecified chronicity, unspecified laterality, unspecified vein (HCC) Anxiety and depression Dysthymic disorder History of gastric bypass Bariatric surgery status Hx of sinus bradycardia Personal history of other diseases of circulatory system Class 1 obesity with serious comorbidity and body mass index (BMI) of 32.0 to 32.9 in adult, unspecified obesity type Adhesive capsulitis of right shoulder Adhesive capsulitis of shoulder * Assessment & Plan Note - Negin Kaufman APRN.CNP - 09/19/2023 1:42 PM EDT Associated Problem(s): Class 1 obesity with serious comorbidity and body mass index (BMI) of 32.0 to 32.9 in adult Assessment: Body mass index is 32.54 kg/m . * Assessment & Plan Note - Negin Kaufman APRN.CNP - 09/19/2023 1:42 PM EDT Associated Problem(s): Hx of sinus bradycardia Assessment: hx, PPM/ICD * Assessment & Plan Note - Negin Kaufman APRN.CNP - 09/19/2023 1:41 PM EDT Associated Problem(s): History of gastric bypass Assessment: hx * Assessment & Plan Note - Negin Kaufman APRN.CNP - 09/19/2023 1:41 PM EDT Associated Problem(s): Anxiety and depression Assessment: stable on rx per pt * Assessment & Plan Note - Negin Kaufman APRN.CNP - 09/19/2023 1:41 PM EDT Associated Problem(s): DVT of upper extremity (deep vein thrombosis) (HCC) Assessment: daily ASA, provoked by surgery, tx with AC at the time * Assessment & Plan Note - Negin Kaufman APRN.CNP - 09/19/2023 1:41 PM EDT Associated Problem(s): Acquired hypothyroidism Assessment: stable on rx * Assessment & Plan Note - Negin Kaufman APRN.CNP - 09/19/2023 1:40 PM EDT Associated Problem(s): Gastroesophageal reflux disease without esophagitis Assessment: controlled on rx * Assessment & Plan Note - Negin Kaufman APRN.CNP - 09/19/2023 1:40 PM EDT Associated Problem(s): Controlled type 2 diabetes mellitus with diabetic polyneuropathy, without long-term current use of insulin (HCC) Assessment: diet controlled, not taking Trulicity listed on med list per pt Hemoglobin A1C (%) Date Value 08/14/2023 5.6 03/25/2019 5.3 Hemoglobin A1C (POCT) (%) Date Value 09/07/2020 5.3 * Assessment & Plan Note - Negin Kaufman APRN.CNP - 09/19/2023 1:40 PM EDT Associated Problem(s): Migraine Assessment: controlled on rx and rx as needed, receives botox, following neurology * Assessment & Plan Note - Negin Kaufman APRN.CNP - 09/19/2023 1:39 PM EDT Associated Problem(s): Subdural hemorrhage (HCC) Assessment: residual balance issues and strength, and chronic migraines * Assessment & Plan Note - Negin Kaufman APRN.CNP - 09/19/2023 1:39 PM EDT Associated Problem(s): Mixed hyperlipidemia Assessment: c/w statin * Assessment & Plan Note - Negin Kaufman APRN.CNP - 09/19/2023 1:37 PM EDT Associated Problem(s): Coronary artery disease involving false pass coronary artery of false pass heart without angina pectoris Assessment: ASA 81mg, NM, 8 yearas ago, s/p stent, following [facility], last OV and cardiac records requested, new EKG today * Assessment & Plan Note - Negin Kaufman APRN.CNP - 09/19/2023 1:36 PM EDT Associated Problem(s): Essential hypertension Assessment: controlled on rx Last 14 BP Last 14 Encounter BP Readings: Date: BP: 09/19/2023 110/58 05/29/2022 150/121 05/22/2022 124/64 04/19/2022 86/52 04/15/2022 99/50 04/12/2022 132/64 04/06/2022 122/80 11/07/2021 149/65 10/31/2021 110/64 10/18/2021 132/62 10/18/2021 116/78 09/07/2020 132/61 08/26/2019 114/70 10/01/2018 98/69 * Assessment & Plan Note - Negin Kaufman APRN.CNP - 09/19/2023 1:36 PM EDT Associated Problem(s): Obstructive sleep apnea Assessment: c/w Bipap documented in this encounter [facility] note* Diagnosis S/P shoulder surgery- Primary Other postprocedural status [facility] [place] [facility] Diagnosis Adhesive capsulitis of right shoulder- Primary Adhesive capsulitis of shoulder S/P shoulder surgery Other postprocedural status documented in this encounter [facility] note* Diagnosis Pre-operative examination- Primary Preoperative examination, unspecified Carpal tunnel syndrome, unspecified laterality Acquired hypothyroidism Unspecified hypothyroidism Controlled type 2 diabetes mellitus with diabetic polyneuropathy, without long- term current use of insulin (HCC) Coronary artery disease involving false pass coronary artery of false pass heart without angina pectoris Hx of sinus bradycardia Personal history of other diseases of circulatory system Mixed hyperlipidemia Obstructive sleep apnea Obstructive sleep apnea (adult) (pediatric) Subdural hemorrhage (HCC) Subdural hemorrhage History of gastric bypass Bariatric surgery status Intractable migraine with status migrainosus, unspecified migraine type Deep vein thrombosis (DVT) of upper extremity, unspecified chronicity, unspecified laterality, unspecified vein (HCC) Anxiety and depression Dysthymic disorder Class 2 severe obesity with serious comorbidity and body mass index (BMI) of 37.0 to 37.9 in adult, unspecified obesity type (HCC) Pre-op evaluation- Primary Preoperative examination, unspecified Intractable migraine with status migrainosus, unspecified migraine type Subdural hemorrhage (HCC) Subdural hemorrhage Essential hypertension Unspecified essential hypertension Anxiety and depression Dysthymic disorder Mixed hyperlipidemia Obstructive sleep apnea Obstructive sleep apnea (adult) (pediatric) Gastroesophageal reflux disease without esophagitis Esophageal reflux Acquired hypothyroidism Unspecified hypothyroidism Controlled type 2 diabetes mellitus with diabetic polyneuropathy, without long- term current use of insulin (HCC) Hx of sinus bradycardia Personal history of other diseases of circulatory system Coronary artery disease involving false pass coronary artery of false pass heart without angina pectoris Deep vein thrombosis (DVT) of upper extremity, unspecified chronicity, unspecified laterality, unspecified vein (HCC) Controlled type 2 diabetes mellitus with diabetic polyneuropathy, without long- term current use of insulin (HCC)- Primary Subdural hemorrhage (HCC) Subdural hemorrhage Essential hypertension Unspecified essential hypertension Mixed hyperlipidemia Coronary artery disease involving false pass coronary artery of false pass heart without angina pectoris Obstructive sleep apnea Obstructive sleep apnea (adult) (pediatric) Acquired hypothyroidism Unspecified hypothyroidism Deep vein thrombosis (DVT) of upper extremity, unspecified chronicity, unspecified laterality, unspecified vein (HCC) Hx of sinus bradycardia Personal history of other diseases of circulatory system Preop examination [Z01.818 (ICD-10-CM)] Preoperative examination, unspecified Impingement syndrome of right shoulder [M75.41 (ICD-10-CM)] Other affections of shoulder region, not elsewhere classified Adhesive capsulitis of right shoulder [M75.01 (ICD-10-CM)] Adhesive capsulitis of shoulder Chronic right shoulder pain [M25.511, G89.29 (ICD-10-CM)] Pain in joint, shoulder region Pre-operative examination- Primary Preoperative examination, unspecified Obstructive sleep apnea Obstructive sleep apnea (adult) (pediatric) Essential hypertension Unspecified essential hypertension Coronary artery disease involving false pass coronary artery of false pass heart without angina pectoris Mixed hyperlipidemia Subdural hemorrhage (HCC) Subdural hemorrhage Intractable migraine with status migrainosus, unspecified migraine type Controlled type 2 diabetes mellitus with diabetic polyneuropathy, without long- term current use of insulin (HCC) Gastroesophageal reflux disease without esophagitis Esophageal reflux Acquired hypothyroidism Unspecified hypothyroidism Deep vein thrombosis (DVT) of upper extremity, unspecified chronicity, unspecified laterality, unspecified vein (HCC) Anxiety and depression Dysthymic disorder History of gastric bypass Bariatric surgery status Hx of sinus bradycardia Personal history of other diseases of circulatory system Class 1 obesity with serious comorbidity and body mass index (BMI) of 32.0 to 32.9 in adult, unspecified obesity type Adhesive capsulitis of right shoulder- Primary Adhesive capsulitis of shoulder S/P shoulder surgery Other postprocedural status [facility] [place] [facility]* Diagnosis Pre-operative examination- Primary Preoperative examination, unspecified Carpal tunnel syndrome, unspecified laterality Acquired hypothyroidism Unspecified hypothyroidism Controlled type 2 diabetes mellitus with diabetic polyneuropathy, without long- term current use of insulin (HCC) Coronary artery disease involving false pass coronary artery of false pass heart without angina pectoris Hx of sinus bradycardia Personal history of other diseases of circulatory system Mixed hyperlipidemia Obstructive sleep apnea Obstructive sleep apnea (adult) (pediatric) Subdural hemorrhage (HCC) Subdural hemorrhage History of gastric bypass Bariatric surgery status Intractable migraine with status migrainosus, unspecified migraine type Deep vein thrombosis (DVT) of upper extremity, unspecified chronicity, unspecified laterality, unspecified vein (HCC) Anxiety and depression Dysthymic disorder Class 2 severe obesity with serious comorbidity and body mass index (BMI) of 37.0 to 37.9 in adult, unspecified obesity type (HCC) Pre-op evaluation- Primary Preoperative examination, unspecified Intractable migraine with status migrainosus, unspecified migraine type Subdural hemorrhage (HCC) Subdural hemorrhage Essential hypertension Unspecified essential hypertension Anxiety and depression Dysthymic disorder Mixed hyperlipidemia Obstructive sleep apnea Obstructive sleep apnea (adult) (pediatric) Gastroesophageal reflux disease without esophagitis Esophageal reflux Acquired hypothyroidism Unspecified hypothyroidism Controlled type 2 diabetes mellitus with diabetic polyneuropathy, without long- term current use of insulin (HCC) Hx of sinus bradycardia Personal history of other diseases of circulatory system Coronary artery disease involving false pass coronary artery of false pass heart without angina pectoris Deep vein thrombosis (DVT) of upper extremity, unspecified chronicity, unspecified laterality, unspecified vein (HCC) Controlled type 2 diabetes mellitus with diabetic polyneuropathy, without long- term current use of insulin (HCC)- Primary Subdural hemorrhage (HCC) Subdural hemorrhage Essential hypertension Unspecified essential hypertension Mixed hyperlipidemia Coronary artery disease involving false pass coronary artery of false pass heart without angina pectoris Obstructive sleep apnea Obstructive sleep apnea (adult) (pediatric) Acquired hypothyroidism Unspecified hypothyroidism Deep vein thrombosis (DVT) of upper extremity, unspecified chronicity, unspecified laterality, unspecified vein (HCC) Hx of sinus bradycardia Personal history of other diseases of circulatory system Preop examination [Z01.818 (ICD-10-CM)] Preoperative examination, unspecified Impingement syndrome of right shoulder [M75.41 (ICD-10-CM)] Other affections of shoulder region, not elsewhere classified Adhesive capsulitis of right shoulder [M75.01 (ICD-10-CM)] Adhesive capsulitis of shoulder Chronic right shoulder pain [M25.511, G89.29 (ICD-10-CM)] Pain in joint, shoulder region Pre-operative examination- Primary Preoperative examination, unspecified Obstructive sleep apnea Obstructive sleep apnea (adult) (pediatric) Essential hypertension Unspecified essential hypertension Coronary artery disease involving false pass coronary artery of false pass heart without angina pectoris Mixed hyperlipidemia Subdural hemorrhage (HCC) Subdural hemorrhage Intractable migraine with status migrainosus, unspecified migraine type Controlled type 2 diabetes mellitus with diabetic polyneuropathy, without long- term current use of insulin (HCC) Gastroesophageal reflux disease without esophagitis Esophageal reflux Acquired hypothyroidism Unspecified hypothyroidism Deep vein thrombosis (DVT) of upper extremity, unspecified chronicity, unspecified laterality, unspecified vein (HCC) Anxiety and depression Dysthymic disorder History of gastric bypass Bariatric surgery status Hx of sinus bradycardia Personal history of other diseases of circulatory system Class 1 obesity with serious comorbidity and body mass index (BMI) of 32.0 to 32.9 in adult, unspecified obesity type Adhesive capsulitis of left shoulder- Primary Adhesive capsulitis of shoulder Adhesive capsulitis of left shoulder Adhesive capsulitis of shoulder [facility] Diagnosis Chronic migraine without aura, intractable, without status migrainosus (CMS/HCC)- [facility] Diagnosis Pre-operative examination- Primary Preoperative examination, unspecified Carpal tunnel syndrome, unspecified laterality Acquired hypothyroidism Unspecified hypothyroidism Controlled type 2 diabetes mellitus with diabetic polyneuropathy, without long- term current use of insulin (HCC) Coronary artery disease involving false pass coronary artery of false pass heart without angina pectoris Hx of sinus bradycardia Personal history of other diseases of circulatory system Mixed hyperlipidemia Obstructive sleep apnea Obstructive sleep apnea (adult) (pediatric) Subdural hemorrhage (HCC) Subdural hemorrhage History of gastric bypass Bariatric surgery status Intractable migraine with status migrainosus, unspecified migraine type Deep vein thrombosis (DVT) of upper extremity, unspecified chronicity, unspecified laterality, unspecified vein (HCC) Anxiety and depression Dysthymic disorder Class 2 severe obesity with serious comorbidity and body mass index (BMI) of 37.0 to 37.9 in adult, unspecified obesity type (HCC) Pre-op evaluation- Primary Preoperative examination, unspecified Intractable migraine with status migrainosus, unspecified migraine type Subdural hemorrhage (HCC) Subdural hemorrhage Essential hypertension Unspecified essential hypertension Anxiety and depression Dysthymic disorder Mixed hyperlipidemia Obstructive sleep apnea Obstructive sleep apnea (adult) (pediatric) Gastroesophageal reflux disease without esophagitis Esophageal reflux Acquired hypothyroidism Unspecified hypothyroidism Controlled type 2 diabetes mellitus with diabetic polyneuropathy, without long- term current use of insulin (HCC) Hx of sinus bradycardia Personal history of other diseases of circulatory system Coronary artery disease involving false pass coronary artery of false pass heart without angina pectoris Deep vein thrombosis (DVT) of upper extremity, unspecified chronicity, unspecified laterality, unspecified vein (HCC) Controlled type 2 diabetes mellitus with diabetic polyneuropathy, without long- term current use of insulin (HCC)- Primary Subdural hemorrhage (HCC) Subdural hemorrhage Essential hypertension Unspecified essential hypertension Mixed hyperlipidemia Coronary artery disease involving false pass coronary artery of false pass heart without angina pectoris Obstructive sleep apnea Obstructive sleep apnea (adult) (pediatric) Acquired hypothyroidism Unspecified hypothyroidism Deep vein thrombosis (DVT) of upper extremity, unspecified chronicity, unspecified laterality, unspecified vein (HCC) Hx of sinus bradycardia Personal history of other diseases of circulatory system Preop examination [Z01.818 (ICD-10-CM)] Preoperative examination, unspecified Impingement syndrome of right shoulder [M75.41 (ICD-10-CM)] Other affections of shoulder region, not elsewhere classified Adhesive capsulitis of right shoulder [M75.01 (ICD-10-CM)] Adhesive capsulitis of shoulder Chronic right shoulder pain [M25.511, G89.29 (ICD-10-CM)] Pain in joint, shoulder region Pre-operative examination- Primary Preoperative examination, unspecified Obstructive sleep apnea Obstructive sleep apnea (adult) (pediatric) Essential hypertension Unspecified essential hypertension Coronary artery disease involving false pass coronary artery of false pass heart without angina pectoris Mixed hyperlipidemia Subdural hemorrhage (HCC) Subdural hemorrhage Intractable migraine with status migrainosus, unspecified migraine type Controlled type 2 diabetes mellitus with diabetic polyneuropathy, without long- term current use of insulin (HCC) Gastroesophageal reflux disease without esophagitis Esophageal reflux Acquired hypothyroidism Unspecified hypothyroidism Deep vein thrombosis (DVT) of upper extremity, unspecified chronicity, unspecified laterality, unspecified vein (HCC) Anxiety and depression Dysthymic disorder History of gastric bypass Bariatric surgery status Hx of sinus bradycardia Personal history of other diseases of circulatory system Class 1 obesity with serious comorbidity and body mass index (BMI) of 32.0 to 32.9 in adult, unspecified obesity type Pre-operative examination- Primary Preoperative examination, unspecified Controlled type 2 diabetes mellitus with diabetic polyneuropathy, without long- term current use of insulin (HCC) Intractable migraine with status migrainosus, unspecified migraine type Subdural hemorrhage (HCC) Subdural hemorrhage Coronary artery disease involving false pass coronary artery of false pass heart without angina pectoris Essential hypertension Unspecified essential hypertension Mixed hyperlipidemia Obstructive sleep apnea Obstructive sleep apnea (adult) (pediatric) Gastroesophageal reflux disease without esophagitis Esophageal reflux Acquired hypothyroidism Unspecified hypothyroidism Deep vein thrombosis (DVT) of upper extremity, unspecified chronicity, unspecified laterality, unspecified vein (HCC) Anxiety and depression Dysthymic disorder History of gastric bypass Bariatric surgery status Hx of sinus bradycardia Personal history of other diseases of circulatory system Class 1 obesity with serious comorbidity and body mass index (BMI) of 31.0 to 31.9 in adult, unspecified obesity type Adhesive capsulitis of left shoulder Adhesive capsulitis of shoulder * Assessment & Plan Note - Negin Kaufman APRN.CNP - 01/23/2024 12:31 PM EST Associated Problem(s): Class 1 obesity with serious comorbidity and body mass index (BMI) of 31.0 to 31.9 in adult Assessment: Body mass index is 31.63 kg/m . * Assessment & Plan Note - Negin Kaufman APRN.CNP - 01/23/2024 12:30 PM EST Associated Problem(s): Hx of sinus bradycardia Assessment: hx, asymptomatic, following cardiology, updated EKG no AV blocks noted * Assessment & Plan Note - Negin Kaufman APRN.CNP - 01/23/2024 12:27 PM EST Associated Problem(s): History of gastric bypass Assessment: hx * Assessment & Plan Note - Negin Kaufman APRN.CNP - 01/23/2024 12:27 PM EST Associated Problem(s): Anxiety and depression Assessment: stable on rx per pt * Assessment & Plan Note - Negin Kaufman APRN.CNP - 01/23/2024 12:27 PM EST Associated Problem(s): DVT of upper extremity (deep vein thrombosis) (HCC) Assessment: daily ASA, provoked by surgery, tx with AC at the time * Assessment & Plan Note - Negin Kaufman APRN.CNP - 01/23/2024 12:26 PM EST Associated Problem(s): Acquired hypothyroidism Assessment: stable on rx * Assessment & Plan Note - Negin Kaufman APRN.CNP - 01/23/2024 12:26 PM EST Associated Problem(s): Gastroesophageal reflux disease without esophagitis Assessment: controlled on rx * Assessment & Plan Note - Negin Kaufman APRN.CNP - 01/23/2024 12:26 PM EST Associated Problem(s): Obstructive sleep apnea Assessment: cw BiPap * Assessment & Plan Note - Negin Kaufman APRN.CNP - 01/23/2024 12:26 PM EST Associated Problem(s): Mixed hyperlipidemia Assessment: c/w statin * Assessment & Plan Note - Negin Kaufman APRN.CNP - 01/23/2024 12:26 PM EST Associated Problem(s): Essential hypertension Assessment: hx, no current tx, hx gastric bypass Last 14 BP Last 14 Encounter BP Readings: Date: BP: 01/23/2024 112/72 10/06/2023 162/65 09/19/2023 110/58 08/18/2023 136/62 05/29/2022 150/121 05/22/2022 124/64 04/19/2022 86/52 04/15/2022 99/50 04/12/2022 132/64 04/06/2022 122/80 11/07/2021 149/65 10/31/2021 110/64 10/18/2021 132/62 10/18/2021 116/78 * Assessment & Plan Note - Negin Kaufman APRN.ROB - 01/23/2024 12:25 PM EST Associated Problem(s): Coronary artery disease involving false pass coronary artery of false pass heart without angina pectoris Assessment: ASA 81mg, s/p stent, following [facility], new EKG today showing bradycardia, pt asymptomatic.Last OV [facility]. * Assessment & Plan Note - Negin Kaufman APRN.CNP - 01/23/2024 12:21 PM EST Associated Problem(s): Subdural hemorrhage (HCC) Assessment: residual balance issues and strength, and chronic migraines * Assessment & Plan Note - Negin Kaufman APRN.CNP - 01/23/2024 12:21 PM EST Associated Problem(s): Migraine Assessment: controlled on rx and rx as needed, receives botox, following neurology * Assessment & Plan Note - Negin Kaufman APRN.CNP - 01/23/2024 12:21 PM EST Associated Problem(s): Controlled type 2 diabetes mellitus with diabetic polyneuropathy, without long-term current use of insulin (HCC) Assessment: controlled on oral agent, new A1c pending Hemoglobin A1C (%) Date Value 08/14/2023 5.6 03/25/2019 5.3 Hemoglobin A1C (POCT) (%) Date Value 09/07/2020 5.3 [facility] Diagnosis Pre-operative examination- Primary Preoperative examination, unspecified Carpal tunnel syndrome, unspecified laterality Acquired hypothyroidism Unspecified hypothyroidism Controlled type 2 diabetes mellitus with diabetic polyneuropathy, without long- term current use of insulin (HCC) Coronary artery disease involving false pass coronary artery of false pass heart without angina pectoris Hx of sinus bradycardia Personal history of other diseases of circulatory system Mixed hyperlipidemia Obstructive sleep apnea Obstructive sleep apnea (adult) (pediatric) Subdural hemorrhage (HCC) Subdural hemorrhage History of gastric bypass Bariatric surgery status Intractable migraine with status migrainosus, unspecified migraine type Deep vein thrombosis (DVT) of upper extremity, unspecified chronicity, unspecified laterality, unspecified vein (HCC) Anxiety and depression Dysthymic disorder Class 2 severe obesity with serious comorbidity and body mass index (BMI) of 37.0 to 37.9 in adult, unspecified obesity type (HCC) Pre-op evaluation- Primary Preoperative examination, unspecified Intractable migraine with status migrainosus, unspecified migraine type Subdural hemorrhage (HCC) Subdural hemorrhage Essential hypertension Unspecified essential hypertension Anxiety and depression Dysthymic disorder Mixed hyperlipidemia Obstructive sleep apnea Obstructive sleep apnea (adult) (pediatric) Gastroesophageal reflux disease without esophagitis Esophageal reflux Acquired hypothyroidism Unspecified hypothyroidism Controlled type 2 diabetes mellitus with diabetic polyneuropathy, without long- term current use of insulin (HCC) Hx of sinus bradycardia Personal history of other diseases of circulatory system Coronary artery disease involving false pass coronary artery of false pass heart without angina pectoris Deep vein thrombosis (DVT) of upper extremity, unspecified chronicity, unspecified laterality, unspecified vein (HCC) Controlled type 2 diabetes mellitus with diabetic polyneuropathy, without long- term current use of insulin (HCC)- Primary Subdural hemorrhage (HCC) Subdural hemorrhage Essential hypertension Unspecified essential hypertension Mixed hyperlipidemia Coronary artery disease involving false pass coronary artery of false pass heart without angina pectoris Obstructive sleep apnea Obstructive sleep apnea (adult) (pediatric) Acquired hypothyroidism Unspecified hypothyroidism Deep vein thrombosis (DVT) of upper extremity, unspecified chronicity, unspecified laterality, unspecified vein (HCC) Hx of sinus bradycardia Personal history of other diseases of circulatory system Preop examination [Z01.818 (ICD-10-CM)] Preoperative examination, unspecified Impingement syndrome of right shoulder [M75.41 (ICD-10-CM)] Other affections of shoulder region, not elsewhere classified Adhesive capsulitis of right shoulder [M75.01 (ICD-10-CM)] Adhesive capsulitis of shoulder Chronic right shoulder pain [M25.511, G89.29 (ICD-10-CM)] Pain in joint, shoulder region Pre-operative examination- Primary Preoperative examination, unspecified Obstructive sleep apnea Obstructive sleep apnea (adult) (pediatric) Essential hypertension Unspecified essential hypertension Coronary artery disease involving false pass coronary artery of false pass heart without angina pectoris Mixed hyperlipidemia Subdural hemorrhage (HCC) Subdural hemorrhage Intractable migraine with status migrainosus, unspecified migraine type Controlled type 2 diabetes mellitus with diabetic polyneuropathy, without long- term current use of insulin (HCC) Gastroesophageal reflux disease without esophagitis Esophageal reflux Acquired hypothyroidism Unspecified hypothyroidism Deep vein thrombosis (DVT) of upper extremity, unspecified chronicity, unspecified laterality, unspecified vein (HCC) Anxiety and depression Dysthymic disorder History of gastric bypass Bariatric surgery status Hx of sinus bradycardia Personal history of other diseases of circulatory system Class 1 obesity with serious comorbidity and body mass index (BMI) of 32.0 to 32.9 in adult, unspecified obesity type Pre-operative examination- Primary Preoperative examination, unspecified Controlled type 2 diabetes mellitus with diabetic polyneuropathy, without long- term current use of insulin (HCC) Intractable migraine with status migrainosus, unspecified migraine type Subdural hemorrhage (HCC) Subdural hemorrhage Coronary artery disease involving false pass coronary artery of false pass heart without angina pectoris Essential hypertension Unspecified essential hypertension Mixed hyperlipidemia Obstructive sleep apnea Obstructive sleep apnea (adult) (pediatric) Gastroesophageal reflux disease without esophagitis Esophageal reflux Acquired hypothyroidism Unspecified hypothyroidism Deep vein thrombosis (DVT) of upper extremity, unspecified chronicity, unspecified laterality, unspecified vein (HCC) Anxiety and depression Dysthymic disorder History of gastric bypass Bariatric surgery status Hx of sinus bradycardia Personal history of other diseases of circulatory system Class 1 obesity with serious comorbidity and body mass index (BMI) of 31.0 to 31.9 in adult, unspecified obesity type Adhesive capsulitis of left shoulder- Primary Adhesive capsulitis of shoulder S/P shoulder surgery Other [facility]ced[facility] status [facility] Chronic migraine without aura, intractable, without status migrainosus (CMS/HCC)- Primary MARKY (obstructive sleep apnea) Obstructive sleep apnea (adult) (pediatric) Diabetic polyneuropathy associated with type 2 diabetes mellitus (CMS/HCC) [facility] Essential hypertension- Primary Unspecified essential hypertension Obesity (BMI 30-39.9) BMI 34.0-34.9,adult [facility] High cholesterol- Primary Pure hypercholesterolemia GERD without esophagitis Esophageal reflux Intestinal malabsorption, unspecified type [facility] [place] [facility] Diagnosis Pre-operative examination- Primary Preoperative examination, unspecified Carpal tunnel syndrome, unspecified laterality Acquired hypothyroidism Unspecified hypothyroidism Controlled type 2 diabetes mellitus with diabetic polyneuropathy, without long- term current use of insulin (HCC) Coronary artery disease involving false pass coronary artery of false pass heart without angina pectoris Hx of sinus bradycardia Personal history of other diseases of circulatory system Mixed hyperlipidemia Obstructive sleep apnea Obstructive sleep apnea (adult) (pediatric) Subdural hemorrhage (HCC) Subdural hemorrhage History of gastric bypass Bariatric surgery status Intractable migraine with status migrainosus, unspecified migraine type Deep vein thrombosis (DVT) of upper extremity, unspecified chronicity, unspecified laterality, unspecified vein (HCC) Anxiety and depression Dysthymic disorder Class 2 severe obesity with serious comorbidity and body mass index (BMI) of 37.0 to 37.9 in adult, unspecified obesity type (HCC) Pre-op evaluation- Primary Preoperative examination, unspecified Intractable migraine with status migrainosus, unspecified migraine type Subdural hemorrhage (HCC) Subdural hemorrhage Essential hypertension Unspecified essential hypertension Anxiety and depression Dysthymic disorder Mixed hyperlipidemia Obstructive sleep apnea Obstructive sleep apnea (adult) (pediatric) Gastroesophageal reflux disease without esophagitis Esophageal reflux Acquired hypothyroidism Unspecified hypothyroidism Controlled type 2 diabetes mellitus with diabetic polyneuropathy, without long- term current use of insulin (HCC) Hx of sinus bradycardia Personal history of other diseases of circulatory system Coronary artery disease involving false pass coronary artery of false pass heart without angina pectoris Deep vein thrombosis (DVT) of upper extremity, unspecified chronicity, unspecified laterality, unspecified vein (HCC) Controlled type 2 diabetes mellitus with diabetic polyneuropathy, without long- term current use of insulin (HCC)- Primary Subdural hemorrhage (HCC) Subdural hemorrhage Essential hypertension Unspecified essential hypertension Mixed hyperlipidemia Coronary artery disease involving false pass coronary artery of false pass heart without angina pectoris Obstructive sleep apnea Obstructive sleep apnea (adult) (pediatric) Acquired hypothyroidism Unspecified hypothyroidism Deep vein thrombosis (DVT) of upper extremity, unspecified chronicity, unspecified laterality, unspecified vein (HCC) Hx of sinus bradycardia Personal history of other diseases of circulatory system Preop examination [Z01.818 (ICD-10-CM)] Preoperative examination, unspecified Impingement syndrome of right shoulder [M75.41 (ICD-10-CM)] Other affections of shoulder region, not elsewhere classified Adhesive capsulitis of right shoulder [M75.01 (ICD-10-CM)] Adhesive capsulitis of shoulder Chronic right shoulder pain [M25.511, G89.29 (ICD-10-CM)] Pain in joint, shoulder region Pre-operative examination- Primary Preoperative examination, unspecified Obstructive sleep apnea Obstructive sleep apnea (adult) (pediatric) Essential hypertension Unspecified essential hypertension Coronary artery disease involving false pass coronary artery of false pass heart without angina pectoris Mixed hyperlipidemia Subdural hemorrhage (HCC) Subdural hemorrhage Intractable migraine with status migrainosus, unspecified migraine type Controlled type 2 diabetes mellitus with diabetic polyneuropathy, without long- term current use of insulin (HCC) Gastroesophageal reflux disease without esophagitis Esophageal reflux Acquired hypothyroidism Unspecified hypothyroidism Deep vein thrombosis (DVT) of upper extremity, unspecified chronicity, unspecified laterality, unspecified vein (HCC) Anxiety and depression Dysthymic disorder History of gastric bypass Bariatric surgery status Hx of sinus bradycardia Personal history of other diseases of circulatory system Class 1 obesity with serious comorbidity and body mass index (BMI) of 32.0 to 32.9 in adult, unspecified obesity type Pre-operative examination- Primary Preoperative examination, unspecified Controlled type 2 diabetes mellitus with diabetic polyneuropathy, without long- term current use of insulin (HCC) Intractable migraine with status migrainosus, unspecified migraine type Subdural hemorrhage (HCC) Subdural hemorrhage Coronary artery disease involving false pass coronary artery of false pass heart without angina pectoris Essential hypertension Unspecified essential hypertension Mixed hyperlipidemia Obstructive sleep apnea Obstructive sleep apnea (adult) (pediatric) Gastroesophageal reflux disease without esophagitis Esophageal reflux Acquired hypothyroidism Unspecified hypothyroidism Deep vein thrombosis (DVT) of upper extremity, unspecified chronicity, unspecified laterality, unspecified vein (HCC) Anxiety and depression Dysthymic disorder History of gastric bypass Bariatric surgery status Hx of sinus bradycardia Personal history of other diseases of circulatory system Class 1 obesity with serious comorbidity and body mass index (BMI) of 31.0 to 31.9 in adult, unspecified obesity type Adhesive capsulitis of left shoulder- Primary Adhesive capsulitis of shoulder documented in this encounter [facility] note* Diagnosis Pre-operative examination- Primary Preoperative examination, unspecified Carpal tunnel syndrome, unspecified laterality Acquired hypothyroidism Unspecified hypothyroidism Controlled type 2 diabetes mellitus with diabetic polyneuropathy, without long- term current use of insulin (HCC) Coronary artery disease involving false pass coronary artery of false pass heart without angina pectoris Hx of sinus bradycardia Personal history of other diseases of circulatory system Mixed hyperlipidemia Obstructive sleep apnea Obstructive sleep apnea (adult) (pediatric) Subdural hemorrhage (HCC) Subdural hemorrhage History of gastric bypass Bariatric surgery status Intractable migraine with status migrainosus, unspecified migraine type Deep vein thrombosis (DVT) of upper extremity, unspecified chronicity, unspecified laterality, unspecified vein (HCC) Anxiety and depression Dysthymic disorder Class 2 severe obesity with serious comorbidity and body mass index (BMI) of 37.0 to 37.9 in adult, unspecified obesity type (HCC) Pre-op evaluation- Primary Preoperative examination, unspecified Intractable migraine with status migrainosus, unspecified migraine type Subdural hemorrhage (HCC) Subdural hemorrhage Essential hypertension Unspecified essential hypertension Anxiety and depression Dysthymic disorder Mixed hyperlipidemia Obstructive sleep apnea Obstructive sleep apnea (adult) (pediatric) Gastroesophageal reflux disease without esophagitis Esophageal reflux Acquired hypothyroidism Unspecified hypothyroidism Controlled type 2 diabetes mellitus with diabetic polyneuropathy, without long- term current use of insulin (HCC) Hx of sinus bradycardia Personal history of other diseases of circulatory system Coronary artery disease involving false pass coronary artery of false pass heart without angina pectoris Deep vein thrombosis (DVT) of upper extremity, unspecified chronicity, unspecified laterality, unspecified vein (HCC) Controlled type 2 diabetes mellitus with diabetic polyneuropathy, without long- term current use of insulin (HCC)- Primary Subdural hemorrhage (HCC) Subdural hemorrhage Essential hypertension Unspecified essential hypertension Mixed hyperlipidemia Coronary artery disease involving false pass coronary artery of false pass heart without angina pectoris Obstructive sleep apnea Obstructive sleep apnea (adult) (pediatric) Acquired hypothyroidism Unspecified hypothyroidism Deep vein thrombosis (DVT) of upper extremity, unspecified chronicity, unspecified laterality, unspecified vein (HCC) Hx of sinus bradycardia Personal history of other diseases of circulatory system Preop examination [Z01.818 (ICD-10-CM)] Preoperative examination, unspecified Impingement syndrome of right shoulder [M75.41 (ICD-10-CM)] Other affections of shoulder region, not elsewhere classified Adhesive capsulitis of right shoulder [M75.01 (ICD-10-CM)] Adhesive capsulitis of shoulder Chronic right shoulder pain [M25.511, G89.29 (ICD-10-CM)] Pain in joint, shoulder region Pre-operative examination- Primary Preoperative examination, unspecified Obstructive sleep apnea Obstructive sleep apnea (adult) (pediatric) Essential hypertension Unspecified essential hypertension Coronary artery disease involving false pass coronary artery of false pass heart without angina pectoris Mixed hyperlipidemia Subdural hemorrhage (HCC) Subdural hemorrhage Intractable migraine with status migrainosus, unspecified migraine type Controlled type 2 diabetes mellitus with diabetic polyneuropathy, without long- term current use of insulin (HCC) Gastroesophageal reflux disease without esophagitis Esophageal reflux Acquired hypothyroidism Unspecified hypothyroidism Deep vein thrombosis (DVT) of upper extremity, unspecified chronicity, unspecified laterality, unspecified vein (HCC) Anxiety and depression Dysthymic disorder History of gastric bypass Bariatric surgery status Hx of sinus bradycardia Personal history of other diseases of circulatory system Class 1 obesity with serious comorbidity and body mass index (BMI) of 32.0 to 32.9 in adult, unspecified obesity type Pre-operative examination- Primary Preoperative examination, unspecified Controlled type 2 diabetes mellitus with diabetic polyneuropathy, without long- term current use of insulin (HCC) Intractable migraine with status migrainosus, unspecified migraine type Subdural hemorrhage (HCC) Subdural hemorrhage Coronary artery disease involving false pass coronary artery of false pass heart without angina pectoris Essential hypertension Unspecified essential hypertension Mixed hyperlipidemia Obstructive sleep apnea Obstructive sleep apnea (adult) (pediatric) Gastroesophageal reflux disease without esophagitis Esophageal reflux Acquired hypothyroidism Unspecified hypothyroidism Deep vein thrombosis (DVT) of upper extremity, unspecified chronicity, unspecified laterality, unspecified vein (HCC) Anxiety and depression Dysthymic disorder History of gastric bypass Bariatric surgery status Hx of sinus bradycardia Personal history of other diseases of circulatory system Class 1 obesity with serious comorbidity and body mass index (BMI) of 31.0 to 31.9 in adult, unspecified obesity type Intractable chronic migraine without aura and without status migrainosus- Primary Chronic migraine without aura, with intractable migraine, so stated, without mention of status migrainosus [facility] noteNo assessment information availableWBl[facility]: [facility]* Diagnosis Pre-operative examination- Primary Preoperative examination, unspecified Carpal tunnel syndrome, unspecified laterality Acquired hypothyroidism Unspecified hypothyroidism Controlled type 2 diabetes mellitus with diabetic polyneuropathy, without long- term current use of insulin (HCC) Coronary artery disease involving false pass coronary artery of false pass heart without angina pectoris Hx of sinus bradycardia Personal history of other diseases of circulatory system Mixed hyperlipidemia Obstructive sleep apnea Obstructive sleep apnea (adult) (pediatric) Subdural hemorrhage (HCC) Subdural hemorrhage History of gastric bypass Bariatric surgery status Intractable migraine with status migrainosus, unspecified migraine type Deep vein thrombosis (DVT) of upper extremity, unspecified chronicity, unspecified laterality, unspecified vein (HCC) Anxiety and depression Dysthymic disorder Class 2 severe obesity with serious comorbidity and body mass index (BMI) of 37.0 to 37.9 in adult, unspecified obesity type (HCC) Pre-op evaluation- Primary Preoperative examination, unspecified Intractable migraine with status migrainosus, unspecified migraine type Subdural hemorrhage (HCC) Subdural hemorrhage Essential hypertension Unspecified essential hypertension Anxiety and depression Dysthymic disorder Mixed hyperlipidemia Obstructive sleep apnea Obstructive sleep apnea (adult) (pediatric) Gastroesophageal reflux disease without esophagitis Esophageal reflux Acquired hypothyroidism Unspecified hypothyroidism Controlled type 2 diabetes mellitus with diabetic polyneuropathy, without long- term current use of insulin (HCC) Hx of sinus bradycardia Personal history of other diseases of circulatory system Coronary artery disease involving false pass coronary artery of false pass heart without angina pectoris Deep vein thrombosis (DVT) of upper extremity, unspecified chronicity, unspecified laterality, unspecified vein (HCC) Controlled type 2 diabetes mellitus with diabetic polyneuropathy, without long- term current use of insulin (HCC)- Primary Subdural hemorrhage (HCC) Subdural hemorrhage Essential hypertension Unspecified essential hypertension Mixed hyperlipidemia Coronary artery disease involving false pass coronary artery of false pass heart without angina pectoris Obstructive sleep apnea Obstructive sleep apnea (adult) (pediatric) Acquired hypothyroidism Unspecified hypothyroidism Deep vein thrombosis (DVT) of upper extremity, unspecified chronicity, unspecified laterality, unspecified vein (HCC) Hx of sinus bradycardia Personal history of other diseases of circulatory system Preop examination [Z01.818 (ICD-10-CM)] Preoperative examination, unspecified Impingement syndrome of right shoulder [M75.41 (ICD-10-CM)] Other affections of shoulder region, not elsewhere classified Adhesive capsulitis of right shoulder [M75.01 (ICD-10-CM)] Adhesive capsulitis of shoulder Chronic right shoulder pain [M25.511, G89.29 (ICD-10-CM)] Pain in joint, shoulder region Pre-operative examination- Primary Preoperative examination, unspecified Obstructive sleep apnea Obstructive sleep apnea (adult) (pediatric) Essential hypertension Unspecified essential hypertension Coronary artery disease involving false pass coronary artery of false pass heart without angina pectoris Mixed hyperlipidemia Subdural hemorrhage (HCC) Subdural hemorrhage Intractable migraine with status migrainosus, unspecified migraine type Controlled type 2 diabetes mellitus with diabetic polyneuropathy, without long- term current use of insulin (HCC) Gastroesophageal reflux disease without esophagitis Esophageal reflux Acquired hypothyroidism Unspecified hypothyroidism Deep vein thrombosis (DVT) of upper extremity, unspecified chronicity, unspecified laterality, unspecified vein (HCC) Anxiety and depression Dysthymic disorder History of gastric bypass Bariatric surgery status Hx of sinus bradycardia Personal history of other diseases of circulatory system Class 1 obesity with serious comorbidity and body mass index (BMI) of 32.0 to 32.9 in adult, unspecified obesity type Pre-operative examination- Primary Preoperative examination, unspecified Controlled type 2 diabetes mellitus with diabetic polyneuropathy, without long- term current use of insulin (HCC) Intractable migraine with status migrainosus, unspecified migraine type Subdural hemorrhage (HCC) Subdural hemorrhage Coronary artery disease involving false pass coronary artery of false pass heart without angina pectoris Essential hypertension Unspecified essential hypertension Mixed hyperlipidemia Obstructive sleep apnea Obstructive sleep apnea (adult) (pediatric) Gastroesophageal reflux disease without esophagitis Esophageal reflux Acquired hypothyroidism Unspecified hypothyroidism Deep vein thrombosis (DVT) of upper extremity, unspecified chronicity, unspecified laterality, unspecified vein (HCC) Anxiety and depression Dysthymic disorder History of gastric bypass Bariatric surgery status Hx of sinus bradycardia Personal history of other diseases of circulatory system Class 1 obesity with serious comorbidity and body mass index (BMI) of 31.0 to 31.9 in adult, unspecified obesity type Intractable chronic migraine without aura and without status migrainosus- Primary Chronic migraine without aura, with intractable migraine, so stated, without mention of status migrainosus [facility] Diagnosis Pre-operative examination- Primary Preoperative examination, unspecified Carpal tunnel syndrome, unspecified laterality Acquired hypothyroidism Unspecified hypothyroidism Controlled type 2 diabetes mellitus with diabetic polyneuropathy, without long- term current use of insulin (HCC) Coronary artery disease involving false pass coronary artery of false pass heart without angina pectoris Hx of sinus bradycardia Personal history of other diseases of circulatory system Mixed hyperlipidemia Obstructive sleep apnea Obstructive sleep apnea (adult) (pediatric) Subdural hemorrhage (HCC) Subdural hemorrhage History of gastric bypass Bariatric surgery status Intractable migraine with status migrainosus, unspecified migraine type Deep vein thrombosis (DVT) of upper extremity, unspecified chronicity, unspecified laterality, unspecified vein (HCC) Anxiety and depression Dysthymic disorder Class 2 severe obesity with serious comorbidity and body mass index (BMI) of 37.0 to 37.9 in adult, unspecified obesity type (HCC) Pre-op evaluation- Primary Preoperative examination, unspecified Intractable migraine with status migrainosus, unspecified migraine type Subdural hemorrhage (HCC) Subdural hemorrhage Essential hypertension Unspecified essential hypertension Anxiety and depression Dysthymic disorder Mixed hyperlipidemia Obstructive sleep apnea Obstructive sleep apnea (adult) (pediatric) Gastroesophageal reflux disease without esophagitis Esophageal reflux Acquired hypothyroidism Unspecified hypothyroidism Controlled type 2 diabetes mellitus with diabetic polyneuropathy, without long- term current use of insulin (HCC) Hx of sinus bradycardia Personal history of other diseases of circulatory system Coronary artery disease involving false pass coronary artery of false pass heart without angina pectoris Deep vein thrombosis (DVT) of upper extremity, unspecified chronicity, unspecified laterality, unspecified vein (HCC) Controlled type 2 diabetes mellitus with diabetic polyneuropathy, without long- term current use of insulin (HCC)- Primary Subdural hemorrhage (HCC) Subdural hemorrhage Essential hypertension Unspecified essential hypertension Mixed hyperlipidemia Coronary artery disease involving false pass coronary artery of false pass heart without angina pectoris Obstructive sleep apnea Obstructive sleep apnea (adult) (pediatric) Acquired hypothyroidism Unspecified hypothyroidism Deep vein thrombosis (DVT) of upper extremity, unspecified chronicity, unspecified laterality, unspecified vein (HCC) Hx of sinus bradycardia Personal history of other diseases of circulatory system Preop examination [Z01.818 (ICD-10-CM)] Preoperative examination, unspecified Impingement syndrome of right shoulder [M75.41 (ICD-10-CM)] Other affections of shoulder region, not elsewhere classified Adhesive capsulitis of right shoulder [M75.01 (ICD-10-CM)] Adhesive capsulitis of shoulder Chronic right shoulder pain [M25.511, G89.29 (ICD-10-CM)] Pain in joint, shoulder region Pre-operative examination- Primary Preoperative examination, unspecified Obstructive sleep apnea Obstructive sleep apnea (adult) (pediatric) Essential hypertension Unspecified essential hypertension Coronary artery disease involving false pass coronary artery of false pass heart without angina pectoris Mixed hyperlipidemia Subdural hemorrhage (HCC) Subdural hemorrhage Intractable migraine with status migrainosus, unspecified migraine type Controlled type 2 diabetes mellitus with diabetic polyneuropathy, without long- term current use of insulin (HCC) Gastroesophageal reflux disease without esophagitis Esophageal reflux Acquired hypothyroidism Unspecified hypothyroidism Deep vein thrombosis (DVT) of upper extremity, unspecified chronicity, unspecified laterality, unspecified vein (HCC) Anxiety and depression Dysthymic disorder History of gastric bypass Bariatric surgery status Hx of sinus bradycardia Personal history of other diseases of circulatory system Class 1 obesity with serious comorbidity and body mass index (BMI) of 32.0 to 32.9 in adult, unspecified obesity type Pre-operative examination- Primary Preoperative examination, unspecified Controlled type 2 diabetes mellitus with diabetic polyneuropathy, without long- term current use of insulin (HCC) Intractable migraine with status migrainosus, unspecified migraine type Subdural hemorrhage (HCC) Subdural hemorrhage Coronary artery disease involving false pass coronary artery of false pass heart without angina pectoris Essential hypertension Unspecified essential hypertension Mixed hyperlipidemia Obstructive sleep apnea Obstructive sleep apnea (adult) (pediatric) Gastroesophageal reflux disease without esophagitis Esophageal reflux Acquired hypothyroidism Unspecified hypothyroidism Deep vein thrombosis (DVT) of upper extremity, unspecified chronicity, unspecified laterality, unspecified vein (HCC) Anxiety and depression Dysthymic disorder History of gastric bypass Bariatric surgery status Hx of sinus bradycardia Personal history of other diseases of circulatory system Class 1 obesity with serious comorbidity and body mass index (BMI) of 31.0 to 31.9 in adult, unspecified obesity type Intractable chronic migraine without aura and without status migrainosus- Primary Chronic migraine without aura, with intractable migraine, so stated, without mention of status migrainosus [facility] Pre-operative examination- Primary Preoperative examination, unspecified Carpal tunnel syndrome, unspecified laterality Acquired hypothyroidism Unspecified hypothyroidism Controlled type 2 diabetes mellitus with diabetic polyneuropathy, without long- term current use of insulin (HCC) Coronary artery disease involving false pass coronary artery of false pass heart without angina pectoris Hx of sinus bradycardia Personal history of other diseases of circulatory system Mixed hyperlipidemia Obstructive sleep apnea Obstructive sleep apnea (adult) (pediatric) Subdural hemorrhage (HCC) Subdural hemorrhage History of gastric bypass Bariatric surgery status Intractable migraine with status migrainosus, unspecified migraine type Deep vein thrombosis (DVT) of upper extremity, unspecified chronicity, unspecified laterality, unspecified vein (HCC) Anxiety and depression Dysthymic disorder Class 2 severe obesity with serious comorbidity and body mass index (BMI) of 37.0 to 37.9 in adult, unspecified obesity type (HCC) Pre-op evaluation- Primary Preoperative examination, unspecified Intractable migraine with status migrainosus, unspecified migraine type Subdural hemorrhage (HCC) Subdural hemorrhage Essential hypertension Unspecified essential hypertension Anxiety and depression Dysthymic disorder Mixed hyperlipidemia Obstructive sleep apnea Obstructive sleep apnea (adult) (pediatric) Gastroesophageal reflux disease without esophagitis Esophageal reflux Acquired hypothyroidism Unspecified hypothyroidism Controlled type 2 diabetes mellitus with diabetic polyneuropathy, without long- term current use of insulin (HCC) Hx of sinus bradycardia Personal history of other diseases of circulatory system Coronary artery disease involving false pass coronary artery of false pass heart without angina pectoris Deep vein thrombosis (DVT) of upper extremity, unspecified chronicity, unspecified laterality, unspecified vein (HCC) Controlled type 2 diabetes mellitus with diabetic polyneuropathy, without long- term current use of insulin (HCC)- Primary Subdural hemorrhage (HCC) Subdural hemorrhage Essential hypertension Unspecified essential hypertension Mixed hyperlipidemia Coronary artery disease involving false pass coronary artery of false pass heart without angina pectoris Obstructive sleep apnea Obstructive sleep apnea (adult) (pediatric) Acquired hypothyroidism Unspecified hypothyroidism Deep vein thrombosis (DVT) of upper extremity, unspecified chronicity, unspecified laterality, unspecified vein (HCC) Hx of sinus bradycardia Personal history of other diseases of circulatory system Preop examination [Z01.818 (ICD-10-CM)] Preoperative examination, unspecified Impingement syndrome of right shoulder [M75.41 (ICD-10-CM)] Other affections of shoulder region, not elsewhere classified Adhesive capsulitis of right shoulder [M75.01 (ICD-10-CM)] Adhesive capsulitis of shoulder Chronic right shoulder pain [M25.511, G89.29 (ICD-10-CM)] Pain in joint, shoulder region Pre-operative examination- Primary Preoperative examination, unspecified Obstructive sleep apnea Obstructive sleep apnea (adult) (pediatric) Essential hypertension Unspecified essential hypertension Coronary artery disease involving false pass coronary artery of false pass heart without angina pectoris Mixed hyperlipidemia Subdural hemorrhage (HCC) Subdural hemorrhage Intractable migraine with status migrainosus, unspecified migraine type Controlled type 2 diabetes mellitus with diabetic polyneuropathy, without long- term current use of insulin (HCC) Gastroesophageal reflux disease without esophagitis Esophageal reflux Acquired hypothyroidism Unspecified hypothyroidism Deep vein thrombosis (DVT) of upper extremity, unspecified chronicity, unspecified laterality, unspecified vein (HCC) Anxiety and depression Dysthymic disorder History of gastric bypass Bariatric surgery status Hx of sinus bradycardia Personal history of other diseases of circulatory system Class 1 obesity with serious comorbidity and body mass index (BMI) of 32.0 to 32.9 in adult, unspecified obesity type Pre-operative examination- Primary Preoperative examination, unspecified Controlled type 2 diabetes mellitus with diabetic polyneuropathy, without long- term current use of insulin (HCC) Intractable migraine with status migrainosus, unspecified migraine type Subdural hemorrhage (HCC) Subdural hemorrhage Coronary artery disease involving false pass coronary artery of false pass heart without angina pectoris Essential hypertension Unspecified essential hypertension Mixed hyperlipidemia Obstructive sleep apnea Obstructive sleep apnea (adult) (pediatric) Gastroesophageal reflux disease without esophagitis Esophageal reflux Acquired hypothyroidism Unspecified hypothyroidism Deep vein thrombosis (DVT) of upper extremity, unspecified chronicity, unspecified laterality, unspecified vein (HCC) Anxiety and depression Dysthymic disorder History of gastric bypass Bariatric surgery status Hx of sinus bradycardia Personal history of other diseases of circulatory system Class 1 obesity with serious comorbidity and body mass index (BMI) of 31.0 to 31.9 in adult, unspecified obesity type Intractable chronic migraine without aura and without status migrainosus Chronic migraine without aura, with intractable migraine, so stated, without mention of status migrainosus [facility] Pre-operative examination- Primary Preoperative examination, unspecified Carpal tunnel syndrome, unspecified laterality Acquired hypothyroidism Unspecified hypothyroidism Controlled type 2 diabetes mellitus with diabetic polyneuropathy, without long- term current use of insulin (HCC) Coronary artery disease involving false pass coronary artery of false pass heart without angina pectoris Hx of sinus bradycardia Personal history of other diseases of circulatory system Mixed hyperlipidemia Obstructive sleep apnea Obstructive sleep apnea (adult) (pediatric) Subdural hemorrhage (HCC) Subdural hemorrhage History of gastric bypass Bariatric surgery status Intractable migraine with status migrainosus, unspecified migraine type Deep vein thrombosis (DVT) of upper extremity, unspecified chronicity, unspecified laterality, unspecified vein (HCC) Anxiety and depression Dysthymic disorder Class 2 severe obesity with serious comorbidity and body mass index (BMI) of 37.0 to 37.9 in adult, unspecified obesity type (HCC) Pre-op evaluation- Primary Preoperative examination, unspecified Intractable migraine with status migrainosus, unspecified migraine type Subdural hemorrhage (HCC) Subdural hemorrhage Essential hypertension Unspecified essential hypertension Anxiety and depression Dysthymic disorder Mixed hyperlipidemia Obstructive sleep apnea Obstructive sleep apnea (adult) (pediatric) Gastroesophageal reflux disease without esophagitis Esophageal reflux Acquired hypothyroidism Unspecified hypothyroidism Controlled type 2 diabetes mellitus with diabetic polyneuropathy, without long- term current use of insulin (HCC) Hx of sinus bradycardia Personal history of other diseases of circulatory system Coronary artery disease involving false pass coronary artery of false pass heart without angina pectoris Deep vein thrombosis (DVT) of upper extremity, unspecified chronicity, unspecified laterality, unspecified vein (HCC) Controlled type 2 diabetes mellitus with diabetic polyneuropathy, without long- term current use of insulin (HCC)- Primary Subdural hemorrhage (HCC) Subdural hemorrhage Essential hypertension Unspecified essential hypertension Mixed hyperlipidemia Coronary artery disease involving false pass coronary artery of false pass heart without angina pectoris Obstructive sleep apnea Obstructive sleep apnea (adult) (pediatric) Acquired hypothyroidism Unspecified hypothyroidism Deep vein thrombosis (DVT) of upper extremity, unspecified chronicity, unspecified laterality, unspecified vein (HCC) Hx of sinus bradycardia Personal history of other diseases of circulatory system Preop examination [Z01.818 (ICD-10-CM)] Preoperative examination, unspecified Impingement syndrome of right shoulder [M75.41 (ICD-10-CM)] Other affections of shoulder region, not elsewhere classified Adhesive capsulitis of right shoulder [M75.01 (ICD-10-CM)] Adhesive capsulitis of shoulder Chronic right shoulder pain [M25.511, G89.29 (ICD-10-CM)] Pain in joint, shoulder region Pre-operative examination- Primary Preoperative examination, unspecified Obstructive sleep apnea Obstructive sleep apnea (adult) (pediatric) Essential hypertension Unspecified essential hypertension Coronary artery disease involving false pass coronary artery of false pass heart without angina pectoris Mixed hyperlipidemia Subdural hemorrhage (HCC) Subdural hemorrhage Intractable migraine with status migrainosus, unspecified migraine type Controlled type 2 diabetes mellitus with diabetic polyneuropathy, without long- term current use of insulin (HCC) Gastroesophageal reflux disease without esophagitis Esophageal reflux Acquired hypothyroidism Unspecified hypothyroidism Deep vein thrombosis (DVT) of upper extremity, unspecified chronicity, unspecified laterality, unspecified vein (HCC) Anxiety and depression Dysthymic disorder History of gastric bypass Bariatric surgery status Hx of sinus bradycardia Personal history of other diseases of circulatory system Class 1 obesity with serious comorbidity and body mass index (BMI) of 32.0 to 32.9 in adult, unspecified obesity type Pre-operative examination- Primary Preoperative examination, unspecified Controlled type 2 diabetes mellitus with diabetic polyneuropathy, without long- term current use of insulin (HCC) Intractable migraine with status migrainosus, unspecified migraine type Subdural hemorrhage (HCC) Subdural hemorrhage Coronary artery disease involving false pass coronary artery of false pass heart without angina pectoris Essential hypertension Unspecified essential hypertension Mixed hyperlipidemia Obstructive sleep apnea Obstructive sleep apnea (adult) (pediatric) Gastroesophageal reflux disease without esophagitis Esophageal reflux Acquired hypothyroidism Unspecified hypothyroidism Deep vein thrombosis (DVT) of upper extremity, unspecified chronicity, unspecified laterality, unspecified vein (HCC) Anxiety and depression Dysthymic disorder History of gastric bypass Bariatric surgery status Hx of sinus bradycardia Personal history of other diseases of circulatory system Class 1 obesity with serious comorbidity and body mass index (BMI) of 31.0 to 31.9 in adult, unspecified obesity type Intractable chronic migraine without aura and without status migrainosus Chronic migraine without aura, with intractable migraine, so stated, without mention of status migrainosus [facility] Pre-operative examination- Primary Preoperative examination, unspecified Carpal tunnel syndrome, unspecified laterality Acquired hypothyroidism Unspecified hypothyroidism Controlled type 2 diabetes mellitus with diabetic polyneuropathy, without long- term current use of insulin (HCC) Coronary artery disease involving false pass coronary artery of false pass heart without angina pectoris Hx of sinus bradycardia Personal history of other diseases of circulatory system Mixed hyperlipidemia Obstructive sleep apnea Obstructive sleep apnea (adult) (pediatric) Subdural hemorrhage (HCC) Subdural hemorrhage History of gastric bypass Bariatric surgery status Intractable migraine with status migrainosus, unspecified migraine type Deep vein thrombosis (DVT) of upper extremity, unspecified chronicity, unspecified laterality, unspecified vein (HCC) Anxiety and depression Dysthymic disorder Class 2 severe obesity with serious comorbidity and body mass index (BMI) of 37.0 to 37.9 in adult, unspecified obesity type (HCC) Pre-op evaluation- Primary Preoperative examination, unspecified Intractable migraine with status migrainosus, unspecified migraine type Subdural hemorrhage (HCC) Subdural hemorrhage Essential hypertension Unspecified essential hypertension Anxiety and depression Dysthymic disorder Mixed hyperlipidemia Obstructive sleep apnea Obstructive sleep apnea (adult) (pediatric) Gastroesophageal reflux disease without esophagitis Esophageal reflux Acquired hypothyroidism Unspecified hypothyroidism Controlled type 2 diabetes mellitus with diabetic polyneuropathy, without long- term current use of insulin (HCC) Hx of sinus bradycardia Personal history of other diseases of circulatory system Coronary artery disease involving false pass coronary artery of false pass heart without angina pectoris Deep vein thrombosis (DVT) of upper extremity, unspecified chronicity, unspecified laterality, unspecified vein (HCC) Controlled type 2 diabetes mellitus with diabetic polyneuropathy, without long- term current use of insulin (HCC)- Primary Subdural hemorrhage (HCC) Subdural hemorrhage Essential hypertension Unspecified essential hypertension Mixed hyperlipidemia Coronary artery disease involving false pass coronary artery of false pass heart without angina pectoris Obstructive sleep apnea Obstructive sleep apnea (adult) (pediatric) Acquired hypothyroidism Unspecified hypothyroidism Deep vein thrombosis (DVT) of upper extremity, unspecified chronicity, unspecified laterality, unspecified vein (HCC) Hx of sinus bradycardia Personal history of other diseases of circulatory system Preop examination [Z01.818 (ICD-10-CM)] Preoperative examination, unspecified Impingement syndrome of right shoulder [M75.41 (ICD-10-CM)] Other affections of shoulder region, not elsewhere classified Adhesive capsulitis of right shoulder [M75.01 (ICD-10-CM)] Adhesive capsulitis of shoulder Chronic right shoulder pain [M25.511, G89.29 (ICD-10-CM)] Pain in joint, shoulder region Pre-operative examination- Primary Preoperative examination, unspecified Obstructive sleep apnea Obstructive sleep apnea (adult) (pediatric) Essential hypertension Unspecified essential hypertension Coronary artery disease involving false pass coronary artery of false pass heart without angina pectoris Mixed hyperlipidemia Subdural hemorrhage (HCC) Subdural hemorrhage Intractable migraine with status migrainosus, unspecified migraine type Controlled type 2 diabetes mellitus with diabetic polyneuropathy, without long- term current use of insulin (HCC) Gastroesophageal reflux disease without esophagitis Esophageal reflux Acquired hypothyroidism Unspecified hypothyroidism Deep vein thrombosis (DVT) of upper extremity, unspecified chronicity, unspecified laterality, unspecified vein (HCC) Anxiety and depression Dysthymic disorder History of gastric bypass Bariatric surgery status Hx of sinus bradycardia Personal history of other diseases of circulatory system Class 1 obesity with serious comorbidity and body mass index (BMI) of 32.0 to 32.9 in adult, unspecified obesity type Pre-operative examination- Primary Preoperative examination, unspecified Controlled type 2 diabetes mellitus with diabetic polyneuropathy, without long- term current use of insulin (HCC) Intractable migraine with status migrainosus, unspecified migraine type Subdural hemorrhage (HCC) Subdural hemorrhage Coronary artery disease involving false pass coronary artery of false pass heart without angina pectoris Essential hypertension Unspecified essential hypertension Mixed hyperlipidemia Obstructive sleep apnea Obstructive sleep apnea (adult) (pediatric) Gastroesophageal reflux disease without esophagitis Esophageal reflux Acquired hypothyroidism Unspecified hypothyroidism Deep vein thrombosis (DVT) of upper extremity, unspecified chronicity, unspecified laterality, unspecified vein (HCC) Anxiety and depression Dysthymic disorder History of gastric bypass Bariatric surgery status Hx of sinus bradycardia Personal history of other diseases of circulatory system Class 1 obesity with serious comorbidity and body mass index (BMI) of 31.0 to 31.9 in adult, unspecified obesity type Intractable chronic migraine without aura and without status migrainosus Chronic migraine without aura, with intractable migraine, so stated, without mention of status migrainosus [facility] Pre-operative examination- Primary Preoperative examination, unspecified Carpal tunnel syndrome, unspecified laterality Acquired hypothyroidism Unspecified hypothyroidism Controlled type 2 diabetes mellitus with diabetic polyneuropathy, without long- term current use of insulin (HCC) Coronary artery disease involving false pass coronary artery of false pass heart without angina pectoris Hx of sinus bradycardia Personal history of other diseases of circulatory system Mixed hyperlipidemia Obstructive sleep apnea Obstructive sleep apnea (adult) (pediatric) Subdural hemorrhage (HCC) Subdural hemorrhage History of gastric bypass Bariatric surgery status Intractable migraine with status migrainosus, unspecified migraine type Deep vein thrombosis (DVT) of upper extremity, unspecified chronicity, unspecified laterality, unspecified vein (HCC) Anxiety and depression Dysthymic disorder Class 2 severe obesity with serious comorbidity and body mass index (BMI) of 37.0 to 37.9 in adult, unspecified obesity type (HCC) Pre-op evaluation- Primary Preoperative examination, unspecified Intractable migraine with status migrainosus, unspecified migraine type Subdural hemorrhage (HCC) Subdural hemorrhage Essential hypertension Unspecified essential hypertension Anxiety and depression Dysthymic disorder Mixed hyperlipidemia Obstructive sleep apnea Obstructive sleep apnea (adult) (pediatric) Gastroesophageal reflux disease without esophagitis Esophageal reflux Acquired hypothyroidism Unspecified hypothyroidism Controlled type 2 diabetes mellitus with diabetic polyneuropathy, without long- term current use of insulin (HCC) Hx of sinus bradycardia Personal history of other diseases of circulatory system Coronary artery disease involving false pass coronary artery of false pass heart without angina pectoris Deep vein thrombosis (DVT) of upper extremity, unspecified chronicity, unspecified laterality, unspecified vein (HCC) Controlled type 2 diabetes mellitus with diabetic polyneuropathy, without long- term current use of insulin (HCC)- Primary Subdural hemorrhage (HCC) Subdural hemorrhage Essential hypertension Unspecified essential hypertension Mixed hyperlipidemia Coronary artery disease involving false pass coronary artery of false pass heart without angina pectoris Obstructive sleep apnea Obstructive sleep apnea (adult) (pediatric) Acquired hypothyroidism Unspecified hypothyroidism Deep vein thrombosis (DVT) of upper extremity, unspecified chronicity, unspecified laterality, unspecified vein (HCC) Hx of sinus bradycardia Personal history of other diseases of circulatory system Preop examination [Z01.818 (ICD-10-CM)] Preoperative examination, unspecified Impingement syndrome of right shoulder [M75.41 (ICD-10-CM)] Other affections of shoulder region, not elsewhere classified Adhesive capsulitis of right shoulder [M75.01 (ICD-10-CM)] Adhesive capsulitis of shoulder Chronic right shoulder pain [M25.511, G89.29 (ICD-10-CM)] Pain in joint, shoulder region Pre-operative examination- Primary Preoperative examination, unspecified Obstructive sleep apnea Obstructive sleep apnea (adult) (pediatric) Essential hypertension Unspecified essential hypertension Coronary artery disease involving false pass coronary artery of false pass heart without angina pectoris Mixed hyperlipidemia Subdural hemorrhage (HCC) Subdural hemorrhage Intractable migraine with status migrainosus, unspecified migraine type Controlled type 2 diabetes mellitus with diabetic polyneuropathy, without long- term current use of insulin (HCC) Gastroesophageal reflux disease without esophagitis Esophageal reflux Acquired hypothyroidism Unspecified hypothyroidism Deep vein thrombosis (DVT) of upper extremity, unspecified chronicity, unspecified laterality, unspecified vein (HCC) Anxiety and depression Dysthymic disorder History of gastric bypass Bariatric surgery status Hx of sinus bradycardia Personal history of other diseases of circulatory system Class 1 obesity with serious comorbidity and body mass index (BMI) of 32.0 to 32.9 in adult, unspecified obesity type Pre-operative examination- Primary Preoperative examination, unspecified Controlled type 2 diabetes mellitus with diabetic polyneuropathy, without long- term current use of insulin (HCC) Intractable migraine with status migrainosus, unspecified migraine type Subdural hemorrhage (HCC) Subdural hemorrhage Coronary artery disease involving false pass coronary artery of false pass heart without angina pectoris Essential hypertension Unspecified essential hypertension Mixed hyperlipidemia Obstructive sleep apnea Obstructive sleep apnea (adult) (pediatric) Gastroesophageal reflux disease without esophagitis Esophageal reflux Acquired hypothyroidism Unspecified hypothyroidism Deep vein thrombosis (DVT) of upper extremity, unspecified chronicity, unspecified laterality, unspecified vein (HCC) Anxiety and depression Dysthymic disorder History of gastric bypass Bariatric surgery status Hx of sinus bradycardia Personal history of other diseases of circulatory system Class 1 obesity with serious comorbidity and body mass index (BMI) of 31.0 to 31.9 in adult, unspecified obesity type Intractable chronic migraine without aura and without status migrainosus- Primary Chronic migraine without aura, with intractable migraine, so stated, without mention of status migrainosus [facility] Additional Instructions Hold your atorvastatin while taking this medication. Monitor your pulse oximeter. If increasing shortness of breath with pulse ox less than 88% return for reevaluation. Otherwise follow-up with your PCP.[facility] Work Phone: Hospital Discharge instructions Additional Instructions Thank you for trusting us with your care today! Your imaging studies were negative for acute traumatic injuries Please take Tylenol (2 pills, 650 mg), ibuprofen (2 pills, 400 mg) every 6 hours as needed for pain and fever control. Please return to the emergency department if your symptoms change or worsen. Please follow with your primary care physician for further outpatient evaluation and management.[facility] Work Phone: Reason for referral (narrative)* Diagnostic Procedure Only (Routine) - Pending Review Specialty Diagnoses / Procedures Referred By Sujatha dash Referred To Contact XR IMAGING Diagnoses Pain in right hip Procedures XR HIP GENERAL 3V PELV/AP/LAT RIGHT RADEX HIP UNILATERAL WITH PELVIS 2-3 VIEWS Chico Franz MD [address] [place] [address] Xr Imaging Referral ID Status Reason Start Date Expiration Date Visits Requested Visits Authorized [id number] Pending Review Auto-Generat ed Referral 11/28/2021 12/28/2022 1 1 [facility] for referral (narrative)* Diagnostic Procedure Only (Routine) - Pending Review Specialty Diagnoses / Procedures Referred By Contac t Referred To Contact XR IMAGING Diagnoses Chronic left shoulder pain Procedures XR SHOULDER GENERAL 3V OR MORE AP/TRUE AP/OTHER LEFT RADEX SHOULDER COMPLETE MINIMUM 2 VIEWS Desiree Gill PA-C [address] [place] [address] Xr Imaging Referral ID Status Reason Start Date Expiration Date Visits Requested Visits Authorized [id number] Pending Review Auto-Generat ed Referral 03/29/2022 04/28/2023 1 1 * Diagnostic Procedure Only (Routine) - Pending Review Specialty Diagnoses / Procedures Referred By Contac t Referred To Contact XR IMAGING Diagnoses Chronic right shoulder pain Procedures XR SHOULDER GENERAL 3V OR MORE AP/TRUE AP/OTHER RIGHT RADEX SHOULDER COMPLETE MINIMUM 2 VIEWS Desiree Gill PA-C [address] [place] [address] Xr Imaging Referral ID Status Reason Start Date Expiration Date Visits Requested Visits Authorized [id number] Pending Review Auto-Generat ed Referral 03/29/2022 04/28/2023 1 1 [facility] for referral (narrative)* Diagnostic Procedure Only (Urgent) - Pending Review Specialty Diagnoses / Procedures Referred By Contac t Referred To Contact XR IMAGING Diagnoses Rib pain on right side Status post fall Procedures XR RIBS/CHEST 3V AP RIB/OBLS/CXR RIGHT RADEX RIBS UNI W/POSTEROANT CH MINIMUM 3 VIEWS Татьяна Burns PA-C [address] [place] [address] Xr Imaging Referral ID Status Reason Start Date Expiration Date Visits Requested Visits Authorized [id number] Pending Review Auto-Generat ed Referral 04/06/2022 05/06/2023 1 1 [facility] for referral (narrative)* Outpatient Procedure (Routine) - Pending Review Specialty Diagnoses / Procedures Referred By Contac t Referred To Contact [facility] [place] Diagnoses Pre-operative examination Procedures ECG COMPLETE ECG ROUTINE ECG W/LEAST 12 LDS W/I&R Negin Kaufman APRN.CNP [address] [place] [address] [facility] [address] [address] Referral ID Status Reason Start Date Expiration Date Visits Requested Visits Authorized [id number] Pending Review Auto-Generat ed Referral 09/19/2023 09/18/2024 1 1 [facility] for referral (narrative)* Outpatient Procedure (Routine) - New Request Specialty Diagnoses / Procedures [facility] Referred To Contact [facility] Diagnoses Pre-operative examination Procedures ECG COMPLETE ECG ROUTINE ECG W/LEAST 12 LDS W/I&R Negin Kaufman APRN.CNP [address] [place] [address] [address] Referral ID Status Reason Start Date Expiration Date Visits Requested Visits Authorized [id number] New Request Auto-Generat ed Referral 01/23/2024 01/22/2025 1 1 [facility] for referral (narrative)No reason for referral information [facility] Work Phone: Reason for visit Narrative* Outpatient Procedure (Routine) - Closed Specialty Diagnoses / Procedures Referred By Contviktor t Referred To Contact [facility] [place] Diagnoses Weakness of both hands Procedures EMG(NEURO/NI) NERVE CONDUCTION STUDIES 9-10 STUDIES Chico Franz MD [address] [place] [address] [facility] [place] [address] [place] [address] [place] [address] Referral ID Status Reason Start Date Expiration Date V isits Requested Visits Authorized [id number] Closed Auto-Generate d Referral 10/04/2021 03/16/2022 [facility] Diagnostic Procedure Only (Routine) - Closed Specialty Diagnoses / Procedures Referred By Contac t Referred To Contact XR IMAGING Diagnoses Chronic right shoulder pain Procedures XR SHOULDER GENERAL 3V OR MORE AP/TRUE AP/OTHER RIGHT RADEX SHOULDER COMPLETE MINIMUM 2 VIEWS Desiree Gill PA-C [address] [place] [address] [place] [address] Referral ID Status Reason Start Date Expiration Date V isits Requested Visits Authorized [id number] Closed Auto-Generate d Referral 03/29/2022 04/28/2023 1 1 [facility] Summary Purpose Family History No Family History Records Found Relationship Condition Age at Onset Recorded Date/T marty mother Coronary artery disease Unknown Diabetes mellitus Unknown History of blood clots Unknown Cardiac disease Unknown Hypertension Unknown High blood cholesterol Unknown Kidney disorder Unknown Disorder of respiratory system Unknown Seizure Unknown Cerebrovascular accident (CVA) Unknown father Coronary artery disease Unknown Malignant neoplasm Unknown Malignant neoplasm of lung Unknown sister Coronary artery disease Unknown Alcoholism Unknown Anxiety Unknown Attempted suicide Unknown grandfather Diabetes mellitus Unknown grandmother Diabetes mellitus Unknown Advance Directives No Advanced Directives Records FoundDocuments on File Type Date Recorded Patient Plan Rep Expl anation Advance Directives and Living Will Power of Material Handler 1St Shift Latest Code Status on File Code Status Date Activated Date Inactivated Comments Full Code 02/22/2018 7:23 AM 02/25/2018 8:20 PM Full Code 02/17/2018 1:33 PM 02/17/2018 6:59 PM Full Code 01/27/2018 8:54 AM 01/28/2018 5:07 PM Full Code 01/26/2018 3:22 PM 01/27/2018 8:53 AM Full Code 01/26/2018 8:15 AM 01/26/2018 3:05 PM Documents on File Type Date Recorded Patient Plan Rep Expl anation ACP-Advance Directive ACP-Power of Material Handler 1St Shift Advance Directive Response Recorded Date/ Time Living Will No February 16 4:52pm Power of Material Handler 1St Shift No February 16, 2021 4:52pm Documents on File Type Date Recorded Patient Plan Rep Expl anation Advance Directive(s) 03/25/2019 11:01 AM Advance Directive(s) 08/03/2018 12:56 AM Documents on File Type Date Recorded Patient Plan Rep Expl anation Advance Directive(s) 03/25/2019 11:01 AM Advance Directive(s) 08/03/2018 12:56 AM Advance Directive Response Recorded Date/ Time Living Will No November 27, 2021 2:45pm Power of Material Handler 1St Shift No November 2:45pm Advance Directive Response Recorded Date/ Time Living Will No April 06 2:13pm Power of Material Handler 1St Shift No April 06, 2022 2:13pm Advance Directive Response Recorded Date/ Time Living Will No April 06 3:13pm Power of Material Handler 1St Shift No April 06, 2022 3:13pm Advance Directive Response Recorded Date/ Time Living Will No June 03, 2024 2:19pm Do you have a Healthcare Power of Material Handler 1St Shift? No June 03, 2024 2:19pm Living Will No April 06 3:13pm Do you have a Healthcare Power of Material Handler 1St Shift? No April 06, 2022 3:13pm Advance Directive Response Recorded Date/ Time Living Will No June 03, 2024 2:19pm Do you have a Healthcare Power of Material Handler 1St Shift? No June 03, 2024 2:19pm Advance Directive Response Recorded Date/ Time Living Will No April 06 3:13pm Do you have a Healthcare Power of Material Handler 1St Shift? No April 06, 2022 3:13pm Living Will No June 03, 2024 2:19pm Do you have a Healthcare Power of Material Handler 1St Shift? No June 03, 2024 2:19pm Advance Directive Response Recorded Date/ Time Living Will No April 06 3:13pm Do you have a Healthcare Power of Material Handler 1St Shift? No April 06, 2022 3:13pm Living Will No June 03, 2024 2:19pm Do you have a Healthcare Power of Material Handler 1St Shift? No June 03, 2024 2:19pm Do you have a Healthcare Power of Material Handler 1St Shift? No July 30, 2024 6:35pm Advance Directive Response Recorded Date/ Time Living Will No April 06 3:13pm Do you have a Healthcare Power of Material Handler 1St Shift? No Jenny 21st, 2023 3:13pm Do you have a Healthcare Power of Material Handler 1St Shift? No July 30, 2024 6:35pm Advance Directive Response Recorded Date/ Time Do you have a Healthcare Power of Material Handler 1St Shift? No July 30, 2024 6:35pm Assessments Diagnosis Gastroesophageal reflux disease with esophagitis Daytime sleepiness Intestinal malabsorption, unspecified type Essential hypertension Unspecified essential hypertension High cholesterol Pure hypercholesterolemia Type 2 diabetes mellitus with complication (HCC) Diagnosis Intestinal malabsorption, unspecified type Vitamin D intoxication Hypervitaminosis D Diagnosis BiPAP (biphasic positive airway pressure) dependence Dependence on other enabling machine Intestinal malabsorption, unspecified type Deficiency of multiple nutrient elements Other nutritional deficiency Essential hypertension Unspecified essential hypertension Class 2 obesity Chief Complaint and Reason for Visit Chief Complaint Admit Date COVID June 03, 2024 2:0 8pm 1 y fu July 05, 2024 1:1 3pm fall July 30, 2024 6:18p m Reason for Visit Admit Date Migraine headache July 05, 2024 1:1 3pm Obesity July 05, 2024 1:1 3pm Obstructive sleep apnea July 05, 2024 1:13pm Chief Complaint POST OP CK l arm swelling POST OP CK 1 Y FU POST OP CK POST OP CK 6 m fu POST OP CK LT ARM PAIN POST OP CK INT LABS INTRACEREBRAL HEMORRHAGE WEAKNESS/ RX HERE Reason for Visit Diabetes type 2, con trolled Left arm pain Left arm swelling Excessive body weight loss Gynecomastia, male History of gastric bypass Intertrigo Diabetes type 2, controlled DVT of left axillary vein, acute Left arm pain Left arm swelling Other acute postprocedural pain Excessive body weight loss Gynecomastia, male History of gastric bypass Intertrigo Allergy-induced asthma Excessive body weight loss Obstructive sleep apnea Diabetes type 2, controlled DVT of left axillary vein, acute Left arm pain Left arm swelling Excessive body weight loss Gynecomastia, male History of gastric bypass Intertrigo Diabetes type 2, controlled DVT of left axillary vein, acute Excessive body weight loss Gynecomastia, male History of gastric bypass Intertrigo Weakness Atherosclerotic heart disease of false pass coronary artery without angina pectoris Bradycardia Essential hypertension Hyperlipidemia Stented coronary artery Diabetes type 2, controlled DVT of left axillary vein, acute History of bilateral mastectomy Left arm pain Left arm swelling Excessive body weight loss Gynecomastia, male History of gastric bypass Intertrigo Diabetes type 2, controlled DVT of left axillary vein, acute History of bilateral mastectomy Left arm pain Left arm swelling Gynecomastia, male Intertrigo Chief Complaint POST OP CK 1 Y FU POST OP CK POST OP CK 6 m fu POST OP CK LT ARM PAIN POST OP CK INT LABS INTRACEREBRAL HEMORRHAGE WEAKNESS/ RX HERE Reason for Visit Diabetes type 2, con trolled DVT of left axillary vein, acute Left arm pain Left arm swelling Other acute postprocedural pain Excessive body weight loss Gynecomastia, male History of gastric bypass Intertrigo Allergy-induced asthma Excessive body weight loss Obstructive sleep apnea Diabetes type 2, controlled DVT of left axillary vein, acute Left arm pain Left arm swelling Excessive body weight loss Gynecomastia, male History of gastric bypass Intertrigo Diabetes type 2, controlled DVT of left axillary vein, acute Excessive body weight loss Gynecomastia, male History of gastric bypass Intertrigo Weakness Atherosclerotic heart disease of false pass coronary artery without angina pectoris Bradycardia Essential hypertension Hyperlipidemia Stented coronary artery Diabetes type 2, controlled DVT of left axillary vein, acute History of bilateral mastectomy Left arm pain Left arm swelling Excessive body weight loss Gynecomastia, male History of gastric bypass Intertrigo Diabetes type 2, controlled DVT of left axillary vein, acute History of bilateral mastectomy Left arm pain Left arm swelling Gynecomastia, male Intertrigo Chief Complaint 1 y fu *ARMS* PAIN, HX LUE DVT Reason for Visit DVT (deep venous thr ombosis) Atherosclerotic heart disease of false pass coronary artery without angina pectoris Bradycardia Essential hypertension Hyperlipidemia Stented coronary artery Chief Complaint 1 y fu *ARMS* PAIN, HX LUE DVT COLD SX Reason for Visit DVT (deep venous thr ombosis) Atherosclerotic heart disease of false pass coronary artery without angina pectoris Bradycardia Essential hypertension Hyperlipidemia Stented coronary artery Chief Complaint 1 Y FU R SHOULDER RX HERE 6 m fu rib pain Reason for Visit Allergy-induced asth ma Excessive body weight loss Obstructive sleep apnea DVT (deep venous thrombosis) Atherosclerotic heart disease of false pass coronary artery without angina pectoris Bradycardia Essential hypertension Hyperlipidemia Stented coronary artery Chief Complaint 6 M FU ADHESIVE CAPSULITIS OF R SHLD/RX HERE Type 2 diabetes mellitus without complications Reason for Visit Bradycardia Essential hypertension Hyperlipidemia Stented coronary artery Chief Complaint 6 M FU Type 2 diabetes mellitus without complications ADHESIVE CAPSULITIS OF R SHLD/RX HERE Reason for Visit Bradycardia Essential hypertension Hyperlipidemia Stented coronary artery Chief Complaint 1 Y FU Reason for Visit Restless leg syndrom e Allergy-induced asthma Obstructive sleep apnea Traumatic brain injury Chief Complaint Admit Date SHOULDER (MANIPULATION) RX HERE February 19, 2024 12:30pm COVID June 03, 2024 2:0 8pm Chief Complaint Admit Date COVID June 03, 2024 2:0 8pm Chief Complaint Admit Date COVID June 03, 2024 2:0 8pm 1 y fu July 05, 2024 1:1 3pm Chief Complaint Admit Date 1 y July 05, 2024 1:1 3pm fall July 30, 2024 6:18p m 3 M FU October 06, 2024 1:55 pm Reason for Visit Admit Date Migraine headache July 05, 2024 1:1 3pm Obesity July 05, 2024 1:1 3pm Obstructive sleep apnea July 05, 2024 1:13pm Migraine headache October 06, 2024 1:55 pm Obesity October 06, 2024 1:55 pm Obstructive sleep apnea October 06, 2024 1:55pm Chief Complaint Admit Date 1 y July 05, 2024 1:1 3pm fall July 30, 2024 6:18p m 3 M FU October 06, 2024 1:55 pm 1 Y FU October 18, 2024 3:0 5pm Chief Complaint Admit Date fall July 30, 2024 6:18p m 3 M FU October 06, 2024 1:55 pm 1 Y FU October 18, 2024 3:0 5pm 6 wk FU November 25, 2024 12:39pm Reason for Visit Admit Date Migraine headache October 06, 2024 1:55 pm Obesity October 06, 2024 1:55 pm Obstructive sleep apnea October 06, 2024 1:55pm Diabetes type 2, controlled October 18, 2024 3:05pm Atherosclerotic heart diseas e of false pass coronary artery without angina pectoris October 18, 2024 3:05pm Hyperlipidemia October 18, 2024 3:0 5pm Obstructive sleep apnea October 18, 2024 3:05pm Traumatic brain injury October 18, 2024 3:05pm Obesity November 25, 2024 12:39pm Obstructive sleep apnea November 25, 2024 12:39pm Reason for Referral Specialty Diagnoses / Procedures Referred By Contac t Referred To Contact MR IMAGING Diagnoses Chronic pain of both shoulders Procedures MRI SHOULDER WO IVCON LT MRI ANY JT UPPER EXTREMITY W/O CONTRAST MATRL Chico Franz MD [address] [place] [address] Mr Imaging Referral ID Status Reason Start Date Expiration Date Visits Requested Visits Authorized [id number] Additional Clinical Info Needed Auto-Generat ed Referral 07/30/2021 08/29/2022 1 1 Specialty Diagnoses / Procedures Referred By Contac t Referred To Contact MR IMAGING Diagnoses Chronic pain of both shoulders Procedures MRI SHOULDER WO IVCON RT MRI ANY JT UPPER EXTREMITY W/O CONTRAST MATRL Chico Franz MD [address] [place] [address] Mr Imaging Referral ID Status Reason Start Date Expiration Date Visits Requested Visits Authorized [id number] Additional Clinical Info Needed Auto-Generat ed Referral 07/30/2021 08/29/2022 1 1 Specialty Diagnoses / Procedures Referred By Contac t Referred To Contact Orthopedics Diagnoses Chronic right shoulder pain Adhesive capsulitis of right shoulder Tendinitis of right shoulder Procedures CONSULT TO ORTHOPAEDICS OFFICE/OUTPATIENT ON LICENSE OF [facility] MDM 60-74 MINUTES Chico Franz MD [address] [place] [address] Christiano Arellano, [address] [address] Referral ID Status Reason Start Date Expiration Date Visits Requested Visits Authorized [id number] Authorized PCP Requested Referral 10/04/2021 10/04/2022 1 1 Specialty Diagnoses / Procedures Referred By Contac t Referred To Contact [facility] Diagnoses Weakness of both hands Procedures EMG(NEURO/NI) NERVE CONDUCTION STUDIES 9-10 STUDIES Chico Franz MD [address] [place] [address] [facility] [place] [address] [place] [address] Referral ID Status Reason Start Date Expiration Date Visits Requested Visits Authorized [id number] Authorized Auto-Generat ed Referral 10/04/2021 03/16/2022 1 1 Specialty Diagnoses / Procedures Referred By Contac t Referred To Contact [facility] Diagnoses Carpal tunnel syndrome of right wrist Procedures CONSULT TO [employer] OCCUPATIONAL THERAPY EVAL HIGH COMPLEX 60 MINS Carla Montanez PA-C [address] [place] [address] [facility] [address] [address] Referral ID Status Reason Start Date Expiration Date Visits Requested Visits Authorized [id number] Pending Review Auto-Generat ed Referral 12/25/2022 1 1 Specialty Diagnoses / Procedures Referred By Contac t Referred To Contact [facility] Diagnoses Ischial bursitis of right side Procedures CONSULT TO PHYSICAL THERAPY PHYSICAL THERAPY EVALUATION HIGH COMPLEX 45 MINS Chico Franz MD [address] [place] [address] [address] Referral ID Status Reason Start Date Expiration Date Visits Requested Visits Authorized [id number] Pending Review Auto-Generat ed Referral 2021 2022 1 1 Specialty Diagnoses / Procedures Referred By Contac t Referred To Contact [facility] Diagnoses Adhesive capsulitis of right shoulder Procedures CONSULT TO PHYSICAL THERAPY PHYSICAL THERAPY EVALUATION HIGH COMPLEX 45 MINS Desiree Gill PA-C [address] [place] [address] [address] Referral ID Status Reason Start Date Expiration Date Visits Requested Visits Authorized [id number] Pending Review Auto-Generat ed Referral 06/14/2022 04/12/2023 1 1 Specialty Diagnoses / Procedures Referred By Contac t Referred To Contact Diagnoses Status post shoulder surgery Desiree Gill PA-C [address] [place] [address] Referral ID Status Reason Start Date Expiration Date V isits Requested Visits Authorized [id number] Pending Review 1 1 Specialty Diagnoses / Procedures Referred By Contac t Referred To Contact [facility] Diagnoses Adhesive capsulitis of left shoulder Procedures CONSULT TO PHYSICAL THERAPY PHYSICAL THERAPY EVALUATION HIGH COMPLEX 45 MINS Desiree Gill PA-C [address] [place] [address] [facility] [place] [address] [place] [address] Referral ID Status Reason Start Date Expiration Date Visits Requested Visits Authorized [id number] Pending Review Auto-Generat ed Referral 4 01/06/2025 1 1 Specialty Diagnoses / Procedures Referred By Sujatha t Referred To Contact Piyush Rice MD [address] [place] [address] [address] [place] [address] Referral ID Status Reason Start Date Expiration Date V isits Requested Visits Authorized [id number] Pending Review 1 1 Medications Administered Section Inactive Administered Medications - up to 3 most recent administrations Medication Order MAR Action Action Date Dose Rate Site betamethasone acetate-betamethasone sodium phosphate 6 mg injection (CELESTONE) 6 mg, Injection - FOR ORTHO USE ONLY, ONE TIME INJECTION, 1 dose, Starting on Pooja 08/23/21 at 1508, Until Pooja 08/23/21 at 1508 Given 08/23/2021 3:08 PM EDT 6 mg betamethasone acetate-betamethasone sodium phosphate 6 mg injection (CELESTONE) 6 mg, Injection - FOR ORTHO USE ONLY, ONE TIME INJECTION, 1 dose, Starting on Pooja 08/23/21 at 1509, Until Pooja 08/23/21 at 1509 Given 08/23/2021 3:09 PM EDT 6 mg lidocaine (PF) 10 mg/mL (1 %) 4 mL injection (XYLOCAINE) 4 mL, Injection - FOR ORTHO USE ONLY, ONE TIME INJECTION, 1 dose, Starting on Pooja 08/23/21 at 1508, Until Pooja 08/23/21 at 1508 Given 08/23/2021 3:08 PM EDT 4 mL lidocaine (PF) 10 mg/mL (1 %) 4 mL injection (XYLOCAINE) 4 mL, Injection - FOR ORTHO USE ONLY, ONE TIME INJECTION, 1 dose, Starting on Pooja 08/23/21 at 1509, Until Pooja 08/23/21 at 1509 Given 08/23/2021 3:09 PM EDT 4 mL Additional Source Comments (unrecognized sect ion and content) No Status Records FoundNo Status Records FoundNo Status Records FoundNo Status Records FoundNo Status Records FoundNo Status Records FoundNo Status Records FoundNo Status Records FoundNo Status Records FoundNo Status Records Found INFORMATION SOURCE (unrecogn ized section and content) DATE CREATED AUTHOR 09/03/2018 [facility] DATE CREATED AUTHOR AUTHOR'S ORGANIZ ATION 11/16/2019 [facility] rico Zapata DATE CREATED AUTHOR AUTHOR'S ORGANIZ ATION 04/29/2021 [facility] DATE CREATED AUTHOR AUTHOR'S ORGANIZ ATION 12/26/2021 [facility] DATE CREATED AUTHOR AUTHOR'S ORGANIZ ATION 04/28/2023 [facility] DATE CREATED AUTHOR AUTHOR'S ORGANIZ ATION 01/26/2024 [facility] DATE CREATED AUTHOR AUTHOR'S ORGANIZ ATION 02/06/2024 [facility] DATE CREATED AUTHOR AUTHOR'S ORGANIZ ATION 02/11/2024 [facility] EPIC DATE CREATED AUTHOR AUTHOR'S ORGANIZ ATION 11/17/2024 [facility] DATE CREATED AUTHOR AUTHOR'S ORGANIZ ATION 12/08/2024 [facility] Goals (unrecognized section and content) Goals may be documented in a n alternate sectionGoals may be documented in an alternate sectionGoals may be documented in an alternate sectionGoals may be documented in an alternate sectionGoals may be documented in an alternate sectionGoals may be documented in an alternate sectionGoals may be documented in an alternate sectionGoals may be documented in an alternate sectionGoals may be documented in an alternate sectionGoals may be documented in an alternate sectionGoals may be documented in an alternate sectionGoals may be documented in an alternate sectionGoals may be documented in an alternate sectionGoals may be documented in an alternate sectionGoals may be documented in an alternate sectionGoals may be documented in an alternate sectionGoals may be documented in an alternate section Care Teams (unrecognized sec tion and content) Team Status: Active Member Role Status Dates Mandi BATISTA NP-[facility]bert Primary Care Provider Activ e Team Status: Inactive Member Role Status Dates Mandi BATISTA, BUTTON BREAKER-C Primary Care Provider Activ e Start: February 19, 2024 End: February 19, 2024 FE Pacheco Attending Provider Active S tart: February 19, 2024 End: February 19, 2024 FE Pacheco Referring Provider Active S tart: February 19, 2024 End: February 19, 2024 Team Status: Inactive Member Role Status Dates Mandi Sandoval VSC, BUTTON BREAKER-C Primary Care Provider Activ e Start: March 23, 2024 End: March 23, 2024 Mandi Sandoval TIERRAC, BUTTON BREAKER-C Attending Provider Active Start: March 23, 2024 End: March 23, 2024 Team Status: Inactive Member Role Status Dates Mandi Sandoval VSC, BUTTON BREAKER-C Primary Care Provider Activ e Start: June 03, 2024 End: June 03, 2024 Dr. Jay Marshall , DO Attending Provider Active Start: June 03, 2024 End: June 03, 2024 Dr. Jay Marshall , DO Emergency Provider Active Start: June 03, 2024 End: June 03, 2024 [employer] Relationship Specialty Start Date End Date Keli Last APRN - [facility] PCP - General Nurse Practitioner 02/24/17 [employer] Repairs Relationship Specialty Start Date End Date Keli Last [address] [place] [address] PCP - General Family Practice 08/03/18 Preparer Samples And Repairs Relationship Specialty Start Date End Date Keli Last [address] [facility] [place] [address] PCP - General Family Practice 08/03/18 Preparer Samples And Repairs Relationship Specialty Start Date End Date Keli Last [address] [facility] [place] [address] PCP - General Family Practice 08/03/18 Preparer Samples And Repairs Relationship Specialty Start Date End Date Keli Last [address] [facility] [place] [address] PCP - General Family Practice 08/03/18 Preparer Samples And Repairs Relationship Specialty Start Date End Date Keli Last [address] [facility] [place] [address] PCP - General Family Practice 08/03/18 Preparer Samples And Repairs Relationship Specialty Start Date End Date Berhane Keli L [address] [place] [place] [address] PCP - General Family Practice 08/03/18 Preparer Samples And Repairs Relationship Specialty Start Date End Date Berhane Keli Cory [address] [place] [address] PCP - General Family Practice 08/03/18 Preparer Samples And Repairs Relationship Specialty Start Date End Date Hairamezhardy Keli L [address] [place] [address] PCP - General Family Practice 08/03/18 Preparer Samples And Repairs Relationship Specialty Start Date End Date HaiKeli tong [address] [place] [place] [address] PCP - General Family Practice 08/03/18 Preparer Samples And Repairs Relationship Specialty Start Date End Date Lia Eisenberg CNP [address] [place] [place] [address] PCP - General Internal Medicine 11/05/21 Preparer Samples And Repairs Relationship Specialty Start Date End Date Lia Eisenberg CNP [address] [place] [address] PCP - General Internal Medicine 11/05/21 Preparer Samples And Repairs Relationship Specialty Start Date End Date Keli Last APRN - ROB PCP - General Nurse Practitioner 02/24/17 Preparer Samples And Repairs Relationship Specialty Start Date End Date Lia Eisenberg CNP [address] [place] [place] [address] PCP - General Internal Medicine 11/05/21 Preparer Samples And Repairs Relationship Specialty Start Date End Date Lia Eisenberg CNP [address] [place] [address] PCP - General Internal Medicine 11/05/21 Preparer Samples And Repairs Relationship Specialty Start Date End Date Lia Eisenberg, IN HOUSE COUNSEL [address] [place] [address] PCP - General Internal Medicine 11/05/21 Preparer Samples And Repairs Relationship Specialty Start Date End Date ElginLia Kit, IN HOUSE COUNSEL [address] [place] [address] PCP - General Internal Medicine 11/05/21 Preparer Samples And Repairs Relationship Specialty Start Date End Date Lia Eisenberg CNP [address] [place] [address] PCP - General Internal Medicine 11/05/21 Preparer Samples And Repairs Relationship Specialty Start Date End Date EisenbergLia rowe CNP [address] [place] [place] [address] PCP - General Internal Medicine 11/05/21 Preparer Samples And Repairs Relationship Specialty Start Date End Date Lia Eisenberg CNP [address] [place] [address] PCP - General Internal Medicine 11/05/21 Preparer Samples And Repairs Relationship Specialty Start Date End Date Lia Eisenberg CNP [address] [place] [address] PCP - General Internal Medicine 11/05/21 Team Status: Active Member Role Status Dates Keli Last BUTTON BREAKER, BUTTON BREAKER-C Family Provider Active [facility] Primary Care Provider A ctive Team Status: Inactive Member Role Status Dates [facility] Primary Care Provider, Referring Provider Active Tashi Santo BUTTON BREAKER, BUTTON BREAKER-C Attending Provider Active Team Status: Inactive Member Role Status Dates [facility] Primary Care Provider A ctive Dr. Zak Barcenas MD Attending Provider Active Lia Eisenberg NP-C Referring Provider Active Team Status: Active Member Role Status Dates [facility] Primary Care Provider A ctive Dr. Chico Franz MD Attending Provider, Referring Provider Active JES BYRD Other Provider Active Team Status: Inactive Member Role Status Dates [facility] Primary Care Provider A ctive Dr. Jay Marshall , DO Attending Provider, Chloe chiu Active Team Status: Inactive Member Role Status Dates [facility] Primary Care Provider A ctive Mandi Sandoval BUTTON BREAKER, BUTTON BREAKER-C Attending Provider, Referrin g Provider Active Preparer Samples And Repairs Relationship Specialty Start Date End Date Lia Eisenberg, IN HOUSE COUNSEL [address] [place] [address] PCP - General Internal Medicine 11/05/21 Preparer Samples And Repairs Relationship Specialty Start Date End Date Lia Eisenberg, IN HOUSE COUNSEL [address] [place] [address] PCP - General Internal Medicine 11/05/21 Team Status: Inactive Member Role Status Dates [facility] Primary Care Provider A ctive Dr. Zak Barcenas MD Attending Provider Active Lia Eisenberg VSC, BUTTON BREAKER-C Referring Provider Active Team Status: Inactive Member Role Status Dates [facility] Primary Care Provider A ctive Dr. Chico Franz MD Attending Provider, Referring Provider Active JES BYRD Other Provider Active Preparer Samples And Repairs Relationship Specialty Start Date End Date Lia Eisenberg, IN HOUSE COUNSEL [address] [place] [address] PCP - General Internal Medicine 11/05/21 Preparer Samples And Repairs Relationship Specialty Start Date End Date Keli Last [address] [place] [id number] PCP - General 02/24/17 Preparer Samples And Repairs Relationship Specialty Start Date End Date Lia Eisenberg, IN HOUSE COUNSEL [address] [place] [address] PCP - General Internal Medicine 11/05/21 Preparer Samples And Repairs Relationship Specialty Start Date End Date Keli Last [address] [place] [phone] PCP - General 02/24/17 Preparer Samples And Repairs Relationship Specialty Start Date End Date Lia Eisenberg, IN HOUSE COUNSEL [address] [place], [place] [address] PCP - General Internal Medicine 11/05/21 Team Status: Active Member Role Status Dates [facility] Primary Care Provider A JORDY Nicolas Attending Provider, Referring Provide r Active Preparer Samples And Repairs Relationship Specialty Start Date End Date Lia Eisenberg CNP [address] [place], [place] [address] PCP - General Internal Medicine 11/05/21 Preparer Samples And Repairs Relationship Specialty Start Date End Date Lia Eisenberg CNP [address] [place] [address] PCP - General Internal Medicine 11/05/21 Team Status: Inactive Member Role Status Dates [facility] Primary Care Provider A ctJORDY Sam Attending Provider, Referring Provide r Active Preparer Samples And Repairs Relationship Specialty Start Date End Date Unallocated, Noms Provider [address] [place] [address] PCP - General 01/06/23 Mandi Sandoval MD [address] [place] [phone] Referring Physician 08/20/22 Team Status: Inactive Member Role Status Dates [facility] Primary Care Provider, Referring Provider Active Dr. Zak Barcenas MD Attending Provider Active Team Status: Inactive Member Role Status Dates [facility] Primary C are Provider, Attending Provider, Referring Provider Active Mandi Sandoval BUTTON BREAKER, BUTTON BREAKER-C Other Provider Active Preparer Samples And Repairs Relationship Specialty Start Date End Date Lia Eisenberg CNP [address] [place] [address] PCP - General Internal Medicine 11/05/21 Preparer Samples And Repairs Relationship Specialty Start Date End Date Lia Eisenberg CNP [address] [place], [place] [id number] PCP - General Internal Medicine 11/05/21 Preparer Samples And Repairs Relationship Specialty Start Date End Date Lia Eisenberg CNP [address] [place] [address] PCP - General Internal Medicine 11/05/21 Preparer Samples And Repairs Relationship Specialty Start Date End Date Lia Eisenberg CNP [address] [place] [address] PCP - General Internal Medicine 11/05/21 Preparer Samples And Repairs Relationship Specialty Start Date End Date Lia Eisenberg CNP [address] [place] [address] PCP - General Internal Medicine 11/05/21 Preparer Samples And Repairs Relationship Specialty Start Date End Date Lia Eisenberg CNP [address] [place] [address] PCP - General Internal Medicine 11/05/21 Preparer Samples And Repairs Relationship Specialty Start Date End Date Lia Eisenberg CNP [address] [place] [address] PCP - General Internal Medicine 11/05/21 Preparer Samples And Repairs Relationship Specialty Start Date End Date Lia Eisenberg CNP [address] [place] [address] PCP - General Internal Medicine 11/05/21 Preparer Samples And Repairs Relationship Specialty Start Date End Date Lia Eisenberg CNP [address] [place] [address] PCP - General Internal Medicine 11/05/21 Preparer Samples And Repairs Relationship Specialty Start Date End Date Unallocated, Noms Anastasia, [address] [place] [address] PCP - General 01/06/23 Mandi Sandoval MD [address] [place] [phone] Referring Physician 08/20/22 Preparer Samples And Repairs Relationship Specialty Start Date End Date Unallocated, [place] [address] [place] [address] PCP - General 01/06/23 Mandi Sandoval MD [facility] [place] [phone] Referring Physician 08/20/22 Preparer Samples And Repairs Relationship Specialty Start Date End Date Mandi Sandoval NP [address] [place] [address] PCP - General Family Medicine 01/08/24 Preparer Samples And Repairs Relationship Specialty Start Date End Date Mandi Sandoval NP [address] [place] [address] PCP - General Family Medicine 01/08/24 Preparer Samples And Repairs Relationship Specialty Start Date End Date Mandi Sandoval NP [address] [place] [address] PCP - General Family Medicine 01/08/24 Preparer Samples And Repairs Relationship Specialty Start Date End Date Unallocated, Amy Oconnor MD [address] [place] [address] PCP - General 01/06/23 Mandi Sandoval MD [address] [place] [phone] Referring Physician 08/20/22 Preparer Samples And Repairs Relationship Specialty Start Date End Date Unallocated, Amy Oconnor MD [address] [place] [address] PCP - General 01/06/23 Mandi Sandoval MD [address] [place] [phone] Referring Physician 08/20/22 Preparer Samples And Repairs Relationship Specialty Start Date End Date [place] [address] PCP - General 02/24/17 Preparer Samples And Repairs Relationship Specialty Start Date End Date [place] [address] PCP - General 02/24/17 Preparer Samples And Repairs Relationship Specialty Start Date End Date Mandi Sandoval NP [address] [place], [place] [id number] PCP - General Family Medicine 01/08/24 Preparer Samples And Repairs Relationship Specialty Start Date End Date Mandi Sandoval NP [address] [place], [place] [address] PCP - General Family Medicine 01/08/24 Team Status: Active Member Role Status Dates Mandi BATISTA, BUTTON BREAKER-C Primary Care Provider Activ e Start: February 19, 2024 FE Pacheco Attending Provider Active S tart: February 19, 2024 FE Pacheco Referring Provider Active S tart: February 19, 2024 Team Status: Inactive Member Role Status Dates Mandi BATISTA, BUTTON BREAKER-C Primary Care Provider Activ e Start: June 03, 2024 End: June 03, 2024 Dr. Jay Marshall , DO Emergency Provider Active Start: June 03, 2024 End: June 03, 2024 Preparer Samples And Repairs Relationship Specialty Start Date End Date Mandi Sandoval NP [address] [place], [place] [address] PCP - General Family Medicine 01/08/24 Preparer Samples And Repairs Relationship Specialty Start Date End Date Mandi Sandoval NP [address] [place] [address] PCP - General Family Medicine 01/08/24 Team Status: Inactive Member Role Status Dates Mandi Hoang VSC, BUTTON BREAKER-C Primary Care Provider Activ e Start: June 24, 2024 End: June 24, 2024 Hodan MIRAMONTES, PA Attending Provider Active Start: June 24, 2024 End: June 24, 2024 Team Status: Inactive Member Role Status Dates [facility] Referring Provider Acti ve Start: July 05, 2024 End: July 05, 2024 Myrna Chen BUTTON BREAKER, BUTTON BREAKER-C Attending Provider Active Start: July 05, 2024 End: July 05, 2024 Mandi Sandoval VSC, BUTTON BREAKER-C Primary Care Provider Activ e Start: July 05, 2024 End: July 05, 2024 Team Status: Inactive Member Role Status Dates Mandi Sandoval VSWilbert, BUTTON BREAKER-C Primary Care Provider Activ e Start: July 06, 2024 End: July 06, 2024 AILYN Colin Attending Provider Active Start: July 06, 2024 End: July 06, 2024 Preparer Samples And Repairs Relationship Specialty Start Date End Date Mandi Sandoval NP [address] [place] [address] PCP - General Family Medicine 01/08/24 Team Status: Active Member Role Status Dates Samantha Khoury NP-C Primary Care Provider Active Team Status: Inactive Member Role Status Dates Dr. Hiram Burns , DO Emergency Provider Active Start: July 30, 2024 End: July 30, 2024 AILYN Colin Primary Care Provider Active Start: July 30, 2024 End: July 30, 2024 Preparer Samples And Repairs Relationship Specialty Start Date End Date Mandi Sandoval NP [address] [place] [address] PCP - General Family Medicine 01/08/24 Team Status: Active Member Role/Relationship Status Dates Mandi Sandoval VSC, BUTTON BREAKER-C Primary Care Provider Activ e Team Status: Inactive Member Role/Relationship Status Dates Mandi Sandoval VSC, BUTTON BREAKER-C Primary Care Provider Activ e Start: June 24, 2024 End: June 24, 2024 Hodan Moseley PA, PA Attending Provider Active Start: June 24, 2024 End: June 24, 2024 Team Status: Inactive Member Role/Relationship Status Dates [facility] Referring Provider Acti ve Start: July 05, 2024 End: July 05, 2024 Myrna Chen BUTTON BREAKER, BUTTON BREAKER-C Attending Provider Active Start: July 05, 2024 End: July 05, 2024 Mandi MAYORGAC, BUTTON BREAKER-C Primary Care Provider Activ e Start: July 05, 2024 End: July 05, 2024 Team Status: Inactive Member Role/Relationship Status Dates Mandi MAYORGAC, BUTTON BREAKER-C Primary Care Provider Activ e Start: July 06, 2024 End: July 06, 2024 Samantha Khoury NP-C Attending Provider Active Start: July 06, 2024 End: July 06, 2024 Team Status: Inactive Member Role/Relationship Status Dates Dr. Hiram Burns DO Attending Provider Active Start: July 30, 2024 End: July 30, 2024 Dr. Hiram Burns DO Emergency Provider Active Start: July 30, 2024 End: July 30, 2024 Samantha Khoury BUTTON BREAKER-C Primary Care Provider Active Start: July 30, 2024 End: July 30, 2024 Team Status: Inactive Member Role/Relationship Status Dates Mandi Sandoval VSC, BUTTON BREAKER-C Primary Care Provider Activ e Start: October 06, 2024 End: October 06, 2024 Mandi MAYORGAC, BUTTON BREAKER-C Referring Provider Active Start: October 06, 2024 End: October 06, 2024 Myrna Chen NP, BUTTON BREAKER-C Attending Provider Active Start: October 06, 2024 End: October 06, 2024 Preparer Samples And Repairs Relationship Specialty Start Date End Date Mandi Sandoval NP [address] [place] [address] PCP - General Family Medicine 01/08/24 Team Status: Inactive Member Role/Relationship Status Dates Mandi BATISTA, BUTTON BREAKER-C Primary Care Provider Activ e Start: October 18, 2024 End: October 18, 2024 Dr. Kevon Muñoz MD Attending Provider Active Start: October 18, 2024 End: October 18, 2024 Samantha Khoury BUTTON BREAKER-C Referring Provider Active Start: October 18, 2024 End: October 18, 2024 Team Status: Inactive Member Role/Relationship Status Dates Dr. Hiram Burns DO Attending Provider Active Start: July 30, 2024 End: July 30, 2024 Dr. Hiram Burns DO Emergency Provider Active Start: July 30, 2024 End: July 30, 2024 Samantha Khoury BUTTON BREAKER-C Primary Care Provider Active Start: July 30, 2024 End: July 30, 2024 Team Status: Inactive Member Role/Relationship Status Dates Mandi MAYORGAC, BUTTON BREAKER-C Primary Care Provider Activ e Start: October 06, 2024 End: October 06, 2024 Mandi MAYORGAC, BUTTON BREAKER-C Referring Provider Active Start: October 06, 2024 End: October 06, 2024 Myrna Chen NP, BUTTON BREAKER-C Attending Provider Active Start: October 06, 2024 End: October 06, 2024 Team Status: Inactive Member Role/Relationship Status Dates Mandi Sandoval VSC, BUTTON BREAKER-C Primary Care Provider Activ e Start: October 18, 2024 End: October 18, 2024 Dr. Kevon Muñoz MD Attending Provider Active Start: October 18, 2024 End: October 18, 2024 Samantha Khoury BUTTON BREAKER-C Referring Provider Active Start: October 18, 2024 End: October 18, 2024 Team Status: Inactive Member Role/Relationship Status Dates Mandi Sandoval VSC, BUTTON BREAKER-C Primary Care Provider Activ e Start: November 25, 2024 End: November 25, 2024 Mandi Sandoval VSC, BUTTON BREAKER-C Referring Provider Active Start: November 25, 2024 End: November 25, 2024 Myrna Chen NP, BUTTON BREAKER-C Attending Provider Active Start: November 25, 2024 End: November 25, 2024 Source Comments (unrecognize d section and content) In the event this informatio n is protected by the Federal Confidentiality of Alcohol and Drug Abuse Patient Records regulations: The Federal rules restrict any use of the information to criminally investigate or prosecute any alcohol or drug abuse patient.[facility] the event this information is protected by the Federal Confidentiality of Alcohol and Drug Abuse Patient Records regulations: The Federal rules restrict any use of the information to criminally investigate or prosecute any alcohol or drug abuse patient.[facility] HospitalIn the event this information is protected by the Federal Confidentiality of Alcohol and Drug Abuse Patient Records regulations: The Federal rules restrict any use of the information to criminally investigate or prosecute any alcohol or drug abuse patient.[facility] HospitalIn the event this information is protected by the Federal Confidentiality of Alcohol and Drug Abuse Patient Records regulations: The Federal rules restrict any use of the information to criminally investigate or prosecute any alcohol or drug abuse patient.[facility] HospitalIn the event this information is protected by the Federal Confidentiality of Alcohol and Drug Abuse Patient Records regulations: The Federal rules restrict any use of the information to criminally investigate or prosecute any alcohol or drug abuse patient.[facility] HospitalIn the event this information is protected by the Federal Confidentiality of Alcohol and Drug Abuse Patient Records regulations: The Federal rules restrict any use of the information to criminally investigate or prosecute any alcohol or drug abuse patient.[facility] HospitalIn the event this information is protected by the Federal Confidentiality of Alcohol and Drug Abuse Patient Records regulations: The Federal rules restrict any use of the information to criminally investigate or prosecute any alcohol or drug abuse patient.[facility] HospitalIn the event this information is protected by the Federal Confidentiality of Alcohol and Drug Abuse Patient Records regulations: The Federal rules restrict any use of the information to criminally investigate or prosecute any alcohol or drug abuse patient.[facility] HospitalIn the event this information is protected by the Federal Confidentiality of Alcohol and Drug Abuse Patient Records regulations: The Federal rules restrict any use of the information to criminally investigate or prosecute any alcohol or drug abuse patient.[facility] HospitalIn the event this information is protected by the Federal Confidentiality of Alcohol and Drug Abuse Patient Records regulations: The Federal rules restrict any use of the information to criminally investigate or prosecute any alcohol or drug abuse patient.[facility] HospitalIn the event this information is protected by the Federal Confidentiality of Alcohol and Drug Abuse Patient Records regulations: The Federal rules restrict any use of the information to criminally investigate or prosecute any alcohol or drug abuse patient.[facility] Hospital[facility] the event this information is protected by the Federal Confidentiality of Alcohol and Drug Abuse Patient Records regulations: The Federal rules restrict any use of the information to criminally investigate or prosecute any alcohol or drug abuse patient.[facility] HospitalIn the event this information is protected by the Federal Confidentiality of Alcohol and Drug Abuse Patient Records regulations: The Federal rules restrict any use of the information to criminally investigate or prosecute any alcohol or drug abuse patient.[facility] HospitalIn the event this information is protected by the Federal Confidentiality of Alcohol and Drug Abuse Patient Records regulations: The Federal rules restrict any use of the information to criminally investigate or prosecute any alcohol or drug abuse patient.[facility] HospitalIn the event this information is protected by the Federal Confidentiality of Alcohol and Drug Abuse Patient Records regulations: The Federal rules restrict any use of the information to criminally investigate or prosecute any alcohol or drug abuse patient.[facility] HospitalIn the event this information is protected by the Federal Confidentiality of Alcohol and Drug Abuse Patient Records regulations: The Federal rules restrict any use of the information to criminally investigate or prosecute any alcohol or drug abuse patient.[facility] HospitalIn the event this information is protected by the Federal Confidentiality of Alcohol and Drug Abuse Patient Records regulations: The Federal rules restrict any use of the information to criminally investigate or prosecute any alcohol or drug abuse patient.[facility] HospitalIn the event this information is protected by the Federal Confidentiality of Alcohol and Drug Abuse Patient Records regulations: The Federal rules restrict any use of the information to criminally investigate or prosecute any alcohol or drug abuse patient.[facility] HospitalIn the event this information is protected by the Federal Confidentiality of Alcohol and Drug Abuse Patient Records regulations: The Federal rules restrict any use of the information to criminally investigate or prosecute any alcohol or drug abuse patient.[facility] HospitalIn the event this information is protected by the Federal Confidentiality of Alcohol and Drug Abuse Patient Records regulations: The Federal rules restrict any use of the information to criminally investigate or prosecute any alcohol or drug abuse patient.[facility] HospitalIn the event this information is protected by the Federal Confidentiality of Alcohol and Drug Abuse Patient Records regulations: The Federal rules restrict any use of the information to criminally investigate or prosecute any alcohol or drug abuse patient.[facility] HospitalIn the event this information is protected by the Federal Confidentiality of Alcohol and Drug Abuse Patient Records regulations: The Federal rules restrict any use of the information to criminally investigate or prosecute any alcohol or drug abuse patient.[facility] HospitalIn the event this information is protected by the Federal Confidentiality of Alcohol and Drug Abuse Patient Records regulations: The Federal rules restrict any use of the information to criminally investigate or prosecute any alcohol or drug abuse patient.[facility] HospitalIn the event this information is protected by the Federal Confidentiality of Alcohol and Drug Abuse Patient Records regulations: The Federal rules restrict any use of the information to criminally investigate or prosecute any alcohol or drug abuse patient.[facility] HospitalIn the event this information is protected by the Federal Confidentiality of Alcohol and Drug Abuse Patient Records regulations: The Federal rules restrict any use of the information to criminally investigate or prosecute any alcohol or drug abuse patient.[facility] HospitalIn the event this information is protected by the Federal Confidentiality of Alcohol and Drug Abuse Patient Records regulations: The Federal rules restrict any use of the information to criminally investigate or prosecute any alcohol or drug abuse patient.[facility] HospitalIn the event this information is protected by the Federal Confidentiality of Alcohol and Drug Abuse Patient Records regulations: The Federal rules restrict any use of the information to criminally investigate or prosecute any alcohol or drug abuse patient.[facility] HospitalIn the event this information is protected by the Federal Confidentiality of Alcohol and Drug Abuse Patient Records regulations: The Federal rules restrict any use of the information to criminally investigate or prosecute any alcohol or drug abuse patient.[facility] HospitalIn the event this information is protected by the Federal Confidentiality of Alcohol and Drug Abuse Patient Records regulations: The Federal rules restrict any use of the information to criminally investigate or prosecute any alcohol or drug abuse patient.[facility] HospitalIn the event this information is protected by the Federal Confidentiality of Alcohol and Drug Abuse Patient Records regulations: The Federal rules restrict any use of the information to criminally investigate or prosecute any alcohol or drug abuse patient.[facility] HospitalIn the event this information is protected by the Federal Confidentiality of Alcohol and Drug Abuse Patient Records regulations: The Federal rules restrict any use of the information to criminally investigate or prosecute any alcohol or drug abuse patient.[facility] HospitalIn the event this information is protected by the Federal Confidentiality of Alcohol and Drug Abuse Patient Records regulations: The Federal rules restrict any use of the information to criminally investigate or prosecute any alcohol or drug abuse patient.[facility] HospitalIn the event this information is protected by the Federal Confidentiality of Alcohol and Drug Abuse Patient Records regulations: The Federal rules restrict any use of the information to criminally investigate or prosecute any alcohol or drug abuse patient.[facility] HospitalIn the event this information is protected by the Federal Confidentiality of Alcohol and Drug Abuse Patient Records regulations: The Federal rules restrict any use of the information to criminally investigate or prosecute any alcohol or drug abuse patient.[facility] HospitalIn the event this information is protected by the Federal Confidentiality of Alcohol and Drug Abuse Patient Records regulations: The Federal rules restrict any use of the information to criminally investigate or prosecute any alcohol or drug abuse patient.[facility] HospitalIn the event this information is protected by the Federal Confidentiality of Alcohol and Drug Abuse Patient Records regulations: The Federal rules restrict any use of the information to criminally investigate or prosecute any alcohol or drug abuse patient.[facility] HospitalIn the event this information is protected by the Federal Confidentiality of Alcohol and Drug Abuse Patient Records regulations: The Federal rules restrict any use of the information to criminally investigate or prosecute any alcohol or drug abuse patient.[facility] HospitalIn the event this information is protected by the Federal Confidentiality of Alcohol and Drug Abuse Patient Records regulations: The Federal rules restrict any use of the information to criminally investigate or prosecute any alcohol or drug abuse patient.[facility] HospitalIn the event this information is protected by the Federal Confidentiality of Alcohol and Drug Abuse Patient Records regulations: The Federal rules restrict any use of the information to criminally investigate or prosecute any alcohol or drug abuse patient.[facility] HospitalIn the event this information is protected by the Federal Confidentiality of Alcohol and Drug Abuse Patient Records regulations: The Federal rules restrict any use of the information to criminally investigate or prosecute any alcohol or drug abuse patient.[facility] HospitalIn the event this information is protected by the Federal Confidentiality of Alcohol and Drug Abuse Patient Records regulations: The Federal rules restrict any use of the information to criminally investigate or prosecute any alcohol or drug abuse patient.[facility] HospitalIn the event this information is protected by the Federal Confidentiality of Alcohol and Drug Abuse Patient Records regulations: The Federal rules restrict any use of the information to criminally investigate or prosecute any alcohol or drug abuse patient.[facility] HospitalIn the event this information is protected by the Federal Confidentiality of Alcohol and Drug Abuse Patient Records regulations: The Federal rules restrict any use of the information to criminally investigate or prosecute any alcohol or drug abuse patient.[facility] HospitalIn the event this information is protected by the Federal Confidentiality of Alcohol and Drug Abuse Patient Records regulations: The Federal rules restrict any use of the information to criminally investigate or prosecute any alcohol or drug abuse patient.[facility] HospitalIn the event this information is protected by the Federal Confidentiality of Alcohol and Drug Abuse Patient Records regulations: The Federal rules restrict any use of the information to criminally investigate or prosecute any alcohol or drug abuse patient.[facility] HospitalIn the event this information is protected by the Federal Confidentiality of Alcohol and Drug Abuse Patient Records regulations: The Federal rules restrict any use of the information to criminally investigate or prosecute any alcohol or drug abuse patient.[facility] HospitalIn the event this information is protected by the Federal Confidentiality of Alcohol and Drug Abuse Patient Records regulations: The Federal rules restrict any use of the information to criminally investigate or prosecute any alcohol or drug abuse patient.[facility] HospitalIn the event this information is protected by the Federal Confidentiality of Alcohol and Drug Abuse Patient Records regulations: The Federal rules restrict any use of the information to criminally investigate or prosecute any alcohol or drug abuse patient.[facility] HospitalIn the event this information is protected by the Federal Confidentiality of Alcohol and Drug Abuse Patient Records regulations: The Federal rules restrict any use of the information to criminally investigate or prosecute any alcohol or drug abuse patient.[facility] HospitalIn the event this information is protected by the Federal Confidentiality of Alcohol and Drug Abuse Patient Records regulations: The Federal rules restrict any use of the information to criminally investigate or prosecute any alcohol or drug abuse patient.[facility] HospitalIn the event this information is protected by the Federal Confidentiality of Alcohol and Drug Abuse Patient Records regulations: The Federal rules restrict any use of the information to criminally investigate or prosecute any alcohol or drug abuse patient.[facility] HospitalIn the event this information is protected by the Federal Confidentiality of Alcohol and Drug Abuse Patient Records regulations: The Federal rules restrict any use of the information to criminally investigate or prosecute any alcohol or drug abuse patient.[facility] HospitalIn the event this information is protected by the Federal Confidentiality of Alcohol and Drug Abuse Patient Records regulations: The Federal rules restrict any use of the information to criminally investigate or prosecute any alcohol or drug abuse patient.[facility] HospitalIn the event this information is protected by the Federal Confidentiality of Alcohol and Drug Abuse Patient Records regulations: The Federal rules restrict any use of the information to criminally investigate or prosecute any alcohol or drug abuse patient.[facility] HospitalIn the event this information is protected by the Federal Confidentiality of Alcohol and Drug Abuse Patient Records regulations: The Federal rules restrict any use of the information to criminally investigate or prosecute any alcohol or drug abuse patient.[facility] HospitalIn the event this information is protected by the Federal Confidentiality of Alcohol and Drug Abuse Patient Records regulations: The Federal rules restrict any use of the information to criminally investigate or prosecute any alcohol or drug abuse patient.[facility] HospitalIn the event this information is protected by the Federal Confidentiality of Alcohol and Drug Abuse Patient Records regulations: The Federal rules restrict any use of the information to criminally investigate or prosecute any alcohol or drug abuse patient.[facility] Reason for Visit (unrecogniz ed section and content) Reason Comments Neurotoxin Injection Specialty Diagnoses / Procedures Referred By Sujatha dash Referred To Contact ADULT NEUROLOGY Diagnoses Intractable chronic migraine without aura and without status migrainosus Procedures BOTULINUM TOXIN A PER 1 UNIT CHEMODERVATE FACIAL/TRIGEM/CERV MUSC MIGRAINE Dhara Peck PA-C [address] [place] [address] Phone: tel: fax: Neurology [address] [place] [address] [place] [address] Phone: tel: fax: Referral ID Status Reason Start Date Expiration Date V isits Requested Visits Authorized [id number] Authorized 05/14/2024 03/16/2025 99 99 Reason Comments Refill Request Reason Comments xrays at [facility] 06-13-2021 REF: Lakisha Eisenberg CNP from [facility] New Pain Specialty Diagnoses / Procedures Referred By Contac t Referred To Contact MR IMAGING Diagnoses Chronic pain of both shoulders Procedures MRI SHOULDER WO IVCON RT MRI ANY JT UPPER EXTREMITY W/O CONTRAST Chico Wong MD [address] [place] [address] Mr Imaging Referral ID Status Reason Start Date Expiration Date V isits Requested Visits Authorized [id number] Closed Auto-Generate d Referral 08/05/2021 10/04/2021 1 1 Specialty Diagnoses / Procedures Referred By Contac t Referred To Contact MR IMAGING Diagnoses Chronic pain of both shoulders Procedures MRI SHOULDER WO IVCON LT MRI ANY JT UPPER EXTREMITY W/O CONTRAST Chico Wong MD [address] [place] [address] Mr Imaging Referral ID Status Reason Start Date Expiration Date V isits Requested Visits Authorized [id number] Closed Auto-Generate d Referral 07/30/2021 10/04/2021 1 1 Reason Comments MRI results bilateral shoulders Follow Up Reason Comments 6 weeks post visit impingement syndrome right shoulder and incomplete rotator cuff tear left shoulder Follow Up Reason Comments Established Patient EMG Results Reason Comments Schedule Surgery Reason Comments Patient Question Reason Comments Established Patient Xray today at [facility] Pain Xray today at [facility] Reason Comments Established Patient Post Op Established Patient 10 wks R CTR, R shou lder manipulation & injection Post Op 10 wks R CTR, R shou lder manipulation & injection Reason Comments Patient Update Reason Comments right rib pain Fell yesterday Reason Comments Orders Reason Comments Pre-Op Visit Reason Comments Established Patient Post Op Reason Comments New Pain Reason Comments Post Op 5 month post op CTR Follow Up Manipulation and inj ection Post Op Manipulation and inj ection Reason Comments Patient Question Reason Onset Date Comments Prior Authorization 06/04/2022 Reason Comments Established Patient Follow Up Post Op Reason Comments Bariatrics Post Op Follow-up POP D/E FU Reason Comments Appointment Reason Comments Established Patient Follow Up Post Op Pain Reason Comments Pre-Op Visit Specialty Diagnoses / Procedures Referred By Sujatha dash Referred To Contact Diagnoses Adhesive capsulitis of right shoulder Procedures SURGICAL ARTHROSCOPY SHOULDER W/LSS&RESCJ ADS ARTHROSCOPY SHOULDER W/ LYSIS ADHESIONS [address] [address] Referral ID Status Reason Start Date Expiration Date Visits Re quested Visits Authorized [id number] 1 Reason Comments Post Op Swelling Pain Reason Comments Established Patient Follow Up Pain Reason Comments Botulinum Toxin Injection Reason Comments Consult Reason Comments Patient Update Missed PT/pt ill Reason Comments Post Op Pain Reason Comments Post Op Appointment Reason Comments Migraine Reason Comments Bariatrics Post Op Follow-up POP D/E FU Reason Comments Weight Loss Bariatrics Post Op Follow-up POP D/E FU Reason Comments New Patient Evaluation Reason Onset Date Comments Refill Request 06/18/2024 Reason Comments Botox Injection Reason Onset Date Comments Refill Request 10/12/2024 Reason Comments Refill Request Scheduled Active and Recently Administ ered Medications (unrecognized section and content) Medication Order 10/04/2023 10/05/2023 10/06/2023 acetaminophen 1,000 mg tab(s) (TYLENOL) (COMPLETED) 1,000 mg, ORAL, PRE-OP ONCE, 1 dose, On Fri10/06/23 at 0630, If ordered PRN for pain, patient/guardian may elect to receive this medication for higher pain levels INSTEAD of the opioid, if preferred: Yes, Preprocedure 0649 (Given - Provid er: Leslie Ching) Lissette, RN) ceFAZolin iv piggyback 2 g in D5W (iso-osmotic) 100 mL (ANCEF) (COMPLETED) 2 g, INTRAVENOUS, at 200 mL/hr, Administer over 30 Minutes, PRE-OP ONCE, 1 dose, On Fri10/06/23 at 0630, Orthopedic Cases - MRSA Negative or Low Risk PRE-OP ANTIBIOTIC ADMINISTER ONLY IN SURGICAL AREA DO NOT ADMINSTER ON THE FLOOR Refrigerate, Antimicrobial indication: Prophylaxis, Preprocedure 0649 (Sent with [employer] ent - Provider: Leslie Liam Mclaughlin RN)0736 (Given - Provider: Demetrius Murrell APRN.PLANOGRAPH OPERATOR) famotidine 20 mg injection (PEPCID) (COMPLETED) 20 mg, INTRAVENOUS, ONCE, 1 dose, On Fri10/06/23 at 0630, REFRIGERATE, Preprocedure 0649 (Given - Provid er: Leslie Mclaughlin RN) midazolam (PF) 1-2 mg injection (VERSED) (COMPLETED) 1-2 mg, INTRAVENOUS, ONCE, 1 dose, On Fri10/06/23 at 0630, Preprocedure 0657 (Given - Provid er: Leslie Mclaughlin RN) promethazine 12.5 mg tab(s) (PHENERGAN) (COMPLETED) 12.5 mg, ORAL, PRE-OP ONCE, 1 dose, On Fri10/06/23 at 0630, Preprocedure 0649 (Given - Provid er: Leslie Mclaughlin RN) scopolamine 1 mg over 3 days 1 Patch (TRANSDERM-SCOP) (CANCELED)(Linked Group 1) 1 Patch, TRANSDERMAL, EVERY 72 HOURS, First dose on Fri10/06/23 at 0630, Until Discontinued, Apply patch behind ear. Each time a new patch is needed it should be placed behind the alternate ear from the previous patch. Remove old patch. Each 1.5 mg patch delivers 1 mg of scopolamine over 3 days., Preprocedure 0649 (Given - Provid er: Leslie Mclaughlin RN) Continuous Medication Order 10/04/2023 10/05/2023 10/06/2023 lactated ringers iv infusion 50 mL/hr, INTRAVENOUS, CONTINUOUS, Starting on Fri10/06/23 at 0900, Until Fri10/07/23 at 0303, Recovery or Phase I (only) 0900 (Due) lactated ringers iv infusion (CANCELED) 5-30 mL/hr, INTRAVENOUS, CONTINUOUS, Starting on Fri10/06/23 at 0630, Until Fri10/06/23 at 0851, Preprocedure 0630 (New Bag/Syring e/Bottle - Provider: Leslie Mclaughlin RN)0851 (Due: Infusion Complete) PRN Medication Order 10/04/2023 10/05/2023 10/06/2023 EPINEPHrine 1 mg in NaCl 0.9% irrigation bag 3,000 mL (CANCELED) X (OR/PROCEDURE) PRN, Starting on Fri10/06/23 at 0713, Until Fri10/06/23 at 0851, Intraprocedure 0820 (Given - Provid er: Tino Zuleta MD) fentaNYL 50 mcg/mL 50 mcg injection (SUBLIMAZE) 50 mcg, INTRAVENOUS, EVERY 10 MINUTES NEEDED, 4 doses, Starting on Fri10/06/23 at 0855, Until Fri10/07/23 at 0303, Moderate Pain (4-6) - Parenteral, Severe Pain (>/=7) - Parenteral, breakthrough pain, FIRST LINE THERAPY for mild, moderate, or severe pain, USE FOR MILD PAIN ONLY IF PATIENT IS UNABLE TO TOLERATE ORAL THERAPY, Recovery or Phase I (only) 09 (Given - Provid er: Richard Garland RN) meperidine (PF) 12.5 mg injection (DEMEROL) 12.5 mg, INTRAVENOUS, EVERY 10 MINUTES NEEDED, 2 doses, Starting on Fri10/06/23 at 0855, Until Fri10/07/23 at 0303, for shivering, May Repeat 12.5 mg in 10 minutes X1, Recovery or Phase I (only) oxyCODONE IR 5 mg tab(s) (ROXICODONE) 5 mg, ORAL, NEEDED, 1 dose, Starting on Fri10/06/23 at 0855, Until Fri10/07/23 at 0303, Mild Pain (1-3) - Enteral, Recovery or Phase I (only) prochlorperazine 10 mg injection (COMPAZINE) 10 mg, INTRAVENOUS, EVERY 6 HOURS NEEDED, Starting on Fri10/06/23 at 0855, Until Fri10/07/23 at 0303, Nausea/Vomiting - First Line - Parenteral, EVERY 6 HOURS NEEDED Protect From Light, Recovery or Phase I (only) Linked Groups Order Group 1: scopolamine 1 mg over 3 days 1 Patch (TRANSDERM-SCOP) (CANCELED)Jump to med 1 Patch, TRANSDERMAL, EVERY 72 HOURS, First dose on Fri10/06/23 at 0630, Until Discontinued, Apply patch behind ear. Each time a new patch is needed it should be placed behind the alternate ear from the previous patch. Remove old patch. Each 1.5 mg patch delivers 1 mg of scopolamine over 3 days., Preprocedure And scopolamine - REMOVE PATCH (CANCELED) EVERY 72 HOURS, Preprocedure, THIS IS USED ONLY TO DOCUMENT PATCH REMOVAL. Use Remvd Patch action. And scopolamine - VERIFY patch (CANCELED) EVERY 8 HOURS, Preprocedure, THIS IS USED ONLY TO DOCUMENT THAT THE PATCH IS VERIFIED ON OR OFF PER ORDER. Use Patch On or Patch Off action. FOR RECORDS PERTAINING TO PATIENTS WHO ARE OR HAVE BEEN ENROLLED IN A CHEMICAL DEPENDENCY/SUBSTANCEABUSE PROGRAM, SOME INFORMATION MAY BE OMITTED. This clinical summary was aggregated from multiple sources. Caution should be exercised in using it in the provision of clinical care. This summary normalizes information from multiple sources, and as a consequence, information in this document may materially change the coding, format and clinical context of patient data. In addition, data may be omitted in some cases. CLINICAL DECISIONS SHOULD BE BASED ON THE PRIMARY CLINICAL RECORDS. [employer] provides no warranty or guarantee of the accuracy or completeness of information in this document.
== END | disposition home or self-care (01) ==
PROVIDERS: PCP Nurse Practitioner Family; Referring Provider Nurse Practitioner Acute Care; Visit Provider Nurse Practitioner Acute Care
DX: G47.33 Obstructive sleep apnea (adult) (pediatric) (principal)
CPT/HCPCS: 95811

== ENCOUNTER → 2024-12-23 | Outpatient (CLI) | payer MEDICARE, SELFPAY ==
[2024-12-23 18:54] LABS: Hematocrit 43.4 % (40-54); Hemoglobin 14.7 g/dL (13.0-16.5); Immature Granulocytes Count 0.010 X10^3/uL (0.0-0.0); Mean Corp Hgb Conc 33.9 g/dL (32-36); Mean Corpuscular Volume 90.8 fL (80-94); Mean Platelet Vol. 11.1 fl (6.2-12.0); NRBC Flagged by Analyzer 0 % (0-5); Platelet Count 169 K/mm3 (150-450); RBC Distribution Width CV 13.3 % (11.6-14.6); RBC Distribution Width SD 44.6 fl (35.1-43.9); Red Blood Count 4.78 M/mm3 (4.6-6.2); White Blood Count 4.9 K/mm3 (4.4-11.0)
[2024-12-23 19:34] LABS: AST(SGOT) 33 U/L (<=37); Alanine Aminotransfer ALT/SGPT 34 U/L (<=46); Albumin, Serum 4.1 g/dL (3.4-4.8); Alkaline Phosphatase 101 U/L (40-129); Anion Gap 10 (5-15); BUN 15 mg/dL (4-19); BUN/Creat Ratio 15.1 RATIO (10-20); Calcium,Total 9.2 mg/dL (7.6-11.0); Carbon Dioxide 24.7 mmol/L (21.0-32.0); Chloride 108 mmol/L (98-108); Cholesterol 108 mg/dL (<=200); Globulin 2.4 g/dL (2.2-4.2); Glucose 83 mg/dL (70-99); Low Density Lipoprotein Calc. 39 mg/dL; Potassium 4.3 mmol/L (3.3-5.1); Triglycerides 52 mg/dL; Very Low Density Lipoprotein 10 mg/dL (5-40); cholesterol:hdl ratio screen 1.86
[2024-12-23 19:58] LABS: Creatinine, Urine (random) 211.00 mg/dL (39.00-259.00); Microalbumin,Random Urine < 12.0 mg/L (<20 mg/L)
== END | disposition home or self-care (01) ==
LOC: VSLAB 15:53
PROVIDERS: PCP Nurse Practitioner Family
DX: E11.9 Type 2 diabetes mellitus without complications (principal); E78.5 Hyperlipidemia, unspecified; E03.9 Hypothyroidism, unspecified
CPT/HCPCS: 36415; 80053; 80061; 82043; 82570; 83036; 84443; 85025